=== PATIENT | female | born 1945 | race Two or more races ===

== ENCOUNTER 2023-01-04 05:45 | Inpatient (IN) | payer MEDICARE, OTHER, SELFPAY ==
[2023-01-04] VITALS (86 sets, daily range): BP systolic 50–156; BP diastolic 35–112; PULSE 80–124; RESP 14–25; TEMP 36.8–36.9; O2SAT 94–99; BMI 23.3
--- NOTE | 2023-01-04 06:05 | ECG_ITS ---
The 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
--- NOTE | 2023-01-04 06:05 | XR_ITS ---
The [address] [address] Patient Name: SABI SANTAMARIA MRN: [id number] date: 1945 Sex: F Assigned Patient Location: ER Current Patient Location: ED.MAIN Accession/Order Number: [id number] Exam Date: 01/04/2023 06:30 Report Date: 01/04/2023 07:09 At the request of: VIRGIL MARKER Procedure: XR chest 1V EXAM: XR chest 1V HISTORY: cough COMPARISON: 03/19/2022. TECHNIQUE: Chest X-ray, 1 view. FINDINGS: Support devices: None. Lungs/pleura: Low lung volumes with minimal patchy bibasilar opacities. Chronic appearing lung markings are similar to prior examination. No effusion. No evidence pneumothorax. No edema. Heart and mediastinum: Stable contours compared to prior examination. Bones: No fracture identified. XR/XR chest 1V IMPRESSION: Minimal basilar opacities are favored represent atelectasis given diminished lung expansion. Minimal infiltrate should be excluded on clinical grounds. Electronically authenticated by: ALEAH DOS SANTOS Date: 01/04/2023 07:09
--- NOTE | 2023-01-04 06:07 | XR_ITS ---
The [address] [address] Patient Name: SABI SANTAMARIA MRN: [id number] date: 1945 Sex: F Assigned Patient Location: ER Current Patient Location: ED.MAIN Accession/Order Number: [id number] Exam Date: 01/04/2023 06:30 Report Date: 01/04/2023 07:14 At the request of: VIRGIL MARKER Procedure: XR pelvis 1-2V EXAM: XR pelvis 1-2V HISTORY: fall COMPARISON: 12/20/[address] of 12/20/2021. TECHNIQUE: 1 view of the pelvis. FINDINGS: Pelvis: No radiographic evidence of fracture. Total right hip arthroplasty appears well seated without evidence of hardware failure. Alignment: Normal alignment of the hips without evidence of dislocation. Mild left hip osteoarthritis. Degenerative findings: No radiographic evidence of degenerative findings. Additional findings: Surgical clips project over the pelvis. Degenerative findings of the lower lumbar spine are noted. XR/XR pelvis 1-2V IMPRESSION: No radiographic evidence of fracture. Electronically authenticated by: ALEAH DOS SANTOS Date: 01/04/2023 07:14
--- NOTE | 2023-01-04 06:07 | CT_ITS ---
The [address] [address] Patient Name: SABI SANTAMARIA MRN: [id number] date: 1945 Sex: F Assigned Patient Location: ER Current Patient Location: ER Accession/Order Number: [id number] Exam Date: 01/04/2023 06:30 Report Date: 01/04/2023 07:22 At the request of: VIRGIL MARKER Procedure: CT head/brain wo con EXAMINATION: CT head/brain wo con, 01/04/2023 6:30 AM EDT HISTORY: AMS COMPARISON: 03/19/2022 TECHNIQUE: CT scan of the head was performed without IV contrast. CT dose reduction technique was used, including Automated Exposure Control. 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 White matter hypoattenuation likely chronic small vessel ischemic change. No acute hemorrhage or mass CSF SPACES: No hydrocephalus, subarachnoid hemorrhage, or mass. Appropriate for age. SKULL: No fracture, mass, or other significant visible lesion. SINUSES: Partial heterogeneous opacification right maxillary sinus. 4 mm deviation of the nasal septum to the right ORBITS: No appreciable abnormality on the limited views. OTHER: Negative CT/CT head/brain wo con IMPRESSION: No acute intracranial abnormality Electronically authenticated by: SHANKAR ZHU Date: 01/04/2023 07:22
--- NOTE | 2023-01-04 06:10 | ED_ITS ---
Documented by User: Amber Villanueva MD 01/18/23 00:44 HPI - General Adult General Chief complaint: Weakness Stated complaint: DIZZINESS Time Seen by Provider: 01/04/23 06:04 Source: patient (patient vie interpretor) Mode of arrival: ambulance Limitations: language barrier Limitations comment: Pt is hard of hearing and had a difficult time understanding the interpretor History of Present Illness HPI narrative: 77-year-old female who admits to ongoing tobacco use and has had a stroke in the past with a hip fracture and apparently lives alone is brought to emergency department by EMS. EMS was alerted when her medical alarm went off. According to the paramedics the patient was dizzy and fell. It is unclear upon arrival the patient is confused or hard of hearing and cannot understand the questions that the building performance specialist is asking her. She does answer some questions appropriately. She has a harsh cough. She is noted to be tachycardic. She denies any complaint of pain at this time. She does state that she got up in the middle the night and didn't feel good she took some pain medications that she got at the store, not that were prescribed to her, she then apparently became dizzy and passed out or fell. All of this is unclear at this time. She has an abrasion at the area of her left scapula and over her forehead. Her speech is clear. She is moving all extremities. She denies any dizziness. She denies any chest pain nausea or vomiting. She explained the to the building performance specialist that she smokes. Related Data Home Medications Medication Instructions Recorded Confirmed [place]-3 PO DAILY 01/04/23 aspirin 81 mg chewable tablet 1 tab PO DAILY 01/04/23 01/04/23 (Aspirin Childrens) atorvastatin 80 mg tablet 80 mg PO DAILY 01/04/23 01/04/23 calcium lactate 100 mg calcium 100 mg PO DAILY 01/04/23 01/04/23 tablet cetirizine 10 mg tablet (24Hour 10 mg PO DAILY PRN allergy symptoms 01/04/23 01/04/23 Allergy) cholecalciferol (vitamin D3) 25 25 mcg PO DAILY 01/04/23 01/04/23 mcg (1,000 unit) capsule (Vitamin D3) gabapentin 100 mg capsule 200 mg PO Q12H 01/04/23 01/04/23 meclizine 25 mg tablet 25 mg PO DAILY PRN dizziness 01/04/23 01/04/23 melatonin 5 mg tablet 5 mg PO .HS PRN sleep 01/04/23 01/04/23 Previous Rx's Medication Instructions Recorded acetaminophen 500 mg tablet 1,000 mg PO Q6H PRN Pain Scale 4-6 01/07/23 (Tylenol Extra Strength) #120 tabs albuterol sulfate 90 mcg/actuation 2 puff inhalation Q4H PRN Dyspnea 01/07/23 aerosol inhaler #8.5 grams benzonatate 100 mg capsule 200 mg PO Q8H PRN Cough #90 caps 01/07/23 ciprofloxacin HCl 500 mg tablet 500 mg PO BID #7 tabs 01/07/23 dexamethasone 4 mg tablet 4 mg PO QD #2 tabs 01/07/23 ferrous sulfate 325 mg (65 mg 325 mg PO QDAY #30 tabs 01/07/23 iron) tablet fluticasone propionate 50 1 spray intranasal QDAY #16 grams 01/07/23 mcg/actuation nasal spray,suspension Allergies Allergy/AdvReac Type Severity Reaction Status Date / Time No Known Drug Allergies Allergy Verified 01/04/23 06:20 Review of Systems ROS Status of ROS 10 or more systems reviewed and unremarkable except as noted in history and below [facility] Medical History Surgical History (Updated 01/04/23 @ 13:49 by Jillian Ford) Exam Narrative Exam Narrative: Nurses note and vital signs reviewed and patient is mildy hypoxic. She is tachycardic and blood pressure is moderately low General: Alert, nontoxic female resting comfortable in a stretcher, harsh moist cough noted at times, no respiratory distress Skin: Warm, dry, no pallor noted. Superficial abrasion noted over the right eyebrow and left scapula Head: Normocephalic, atraumatic Eye: Normal conjunctiva, no drainage, EOMI. PERRL Ears, Nose, Mouth, and Throat: oral mucosa is moist. Cardiovascular: Regular Rate and Rhythm S1 and S2, no murmurs rubs or gallops appreciated, pulses are brisk and equal bilaterally Respiratory: Harsh cough and scattered rhonchi noted, no wheezing, no accessory muscle use noted Back: Midline bony vertebral tenderness or step-off noted, abrasion noted to the left scapular area GI: Normal bowel sounds, no tenderness to palpation, no masses appreciated. No rebound, guarding, or rigidity noted. Musculoskeletal: No hip tenderness is noted however the right leg is externally rotated, it is not shortened, she is able to bend at the knee. She has mild blistering of the medial aspect of the left foot, there is no calf swelling or tenderness Neurological: A&O x4, normal speech Psychiatric: Cooperative Constitutional Vital Signs, click to edit/add: Last Vital Signs Temp 97.9 F 01/07/23 05:10 Pulse 95 H 01/07/23 11:46 Resp 16 01/07/23 08:00 BP 146/88 H 01/07/23 05:10 Pulse Ox 97 01/07/23 11:36 O2 Del Method Room Air 01/07/23 11:36 Course Course Hospital Course: Patient admitted with hypotension Severe sepsis with septic shock - hypotensive - requiring levophed and aggresive fluid resuscitation on admission - with sinus tachycardia, respiratory distress, Leukocytosis, acute kidney injury, positive lactate,? high-sensitivity troponin elevation which is possibly demand ischemia- elevated BNP- Complicated by acute COVID 19. Patient initially admitted to the ICU on Levophed. Over the first 12 hours it was able to be weaned off but then needed to be replaced., But then weaned off shortly after that. Patient did develop a little bit of fluid overload. That just improved by discontinuing fluids. Her blood culture did come back positive for E. coli. Sensitivities were sensitive to everything. With the COVID-19 and positive gram-negative sepsis secondary to E. coli but patient improved rapidly. She will be discharged to rehab facility to improve strength and conditioning. We will not need further IV antibiotics due to sensitivities to the E. coli. Patient stable for discharge to rehab. Medications see list. I will see patient after discharge from rehab Vital Signs Vital signs: Vital Signs Temperature 98.2 F 01/04/23 05:48 Pulse Rate 124 H 01/04/23 05:48 Respiratory Rate 25 H 01/04/23 05:48 Blood Pressure 112/87 H 01/04/23 05:48 Pulse Oximetry 94 L 01/04/23 05:48 Oxygen Delivery Method Room Air 01/04/23 05:48 Temperature 97.9 F 01/07/23 05:10 Pulse Rate 95 H 01/07/23 11:46 Respiratory Rate 16 01/07/23 08:00 Blood Pressure 146/88 H 01/07/23 05:10 Pulse Oximetry 97 01/07/23 11:36 Oxygen Delivery Method Room Air 01/07/23 11:36 Medical Decision Making Lab Data Labs: Lab Results 01/04/23 01/04/23 01/04/23 Range/Units 06:20 06:50 07:57 WBC 13.8 H (4.0-11.0) 10^3/uL RBC 4.15 L (4.20-5.40) 10^6/uL Hgb 11.7 L (12.0-16.0) g/dL Hct 36.2 (36.0-48.0) % MCV 87.2 (81.0-99.0) fL MCH 28.2 (26.7-34.0) pg MCHC 32.3 (29.9-35.2) g/dL RDW 15.1 H (11.0-15.0) % Plt Count 225 (150-450) 10^3/uL MPV 8.9 L (9.5-13.5) fL Neut % (Auto) 86.8 H (43.0-75.0) % Lymph % (Auto) 8.1 L (20.5-60.0) % [place] % (Auto) 4.1 (1.7-12.0) % Eos % (Auto) 0.1 L (0.9-7.0) % Baso % (Auto) 0.2 (0.2-2.0) % Neut # (Auto) 12.0 H (1.4-6.5) 10^3/uL Lymph # (Auto) 1.1 L (1.2-3.8) 10^3/uL [place] # (Auto) 0.6 (0.3-0.8) 10^3/uL Eos # (Auto) 0.0 (0.0-0.7) 10^3/uL Baso # (Auto) 0.0 (0.0-0.1) 10^3/uL Abs Immat Gran (auto) 0.09 H (0.00-0.03) 10^3/uL Imm/Tot Granulo (auto) 0.7 H (0.0-0.5) % Sodium 138 (136-145) mmol/L Potassium 3.5 (3.5-5.1) mmol/L Chloride 104 (98-107) mmol/L Carbon Dioxide 22.3 (21.0-32.0) mmol/L Anion Gap 15.2 BUN 26.0 H (7.0-18.0) mg/dL Creatinine 1.53 H (0.55-1.02) mg/dL Est GFR ( Amer) 40 L (>=60) Est GFR (Non-Af Amer) 33 L (>=60) BUN/Creatinine Ratio 17.0 Glucose 127 H (74-106) mg/dL Lactate 2.3 H* (0.4-2.0) mmol/L Calcium 8.7 (8.5-10.1) mg/dL Magnesium 2.0 (1.8-2.4) mg/dL Total Bilirubin 1.1 H (0.2-1.0) mg/dL AST 30 (15-37) U/L ALT 16 (14-59) U/L Alkaline Phosphatase 109 (46-116) U/L Total Creatine Kinase 299 H (26-192) U/L Troponin I High Sens 1547.8 H* 1175.7 H* (4.0-51.3) pg/mL NT-Pro-B Natriuret Pep 1660.0 (<=1800.0) pg/mL Total Protein 7.6 (6.4-8.2) g/dL Albumin 2.9 L (3.4-5.0) g/dL Globulin 4.7 g/dL Albumin/Globulin Ratio 0.6 Urine Color (YELLOW) Urine Clarity (CLEAR) Urine pH (5.0-9.0) Ur Specific [place] (1.005-1.025) Urine Protein (NEG/TRACE) mg/dL Urine Glucose (UA) (NEGATIVE) mg/dL Urine Ketones (NEGATIVE) mg/dL Urine Occult Blood (NEGATIVE) Urine Nitrite (NEGATIVE) Urine Bilirubin (NEGATIVE) Urine Urobilinogen (0.2-1.0) EU/dL Ur Leukocyte Esterase (NEGATIVE) Urine RBC (0-2) #/HPF Urine WBC (NONE SEEN) #/HPF Ur Squamous Epith Cells (NONE/RARE) #/LPF Urine Crystals (None Seen) #/HPF Urine Bacteria (NONE SEEN) #/HPF Urine Casts (NONE SEEN) #/LPF Urine Mucus (NONE SEEN) Ur Culture Indicated? Marcell H. influenza (PCR) Not detected (NOT DETECTE) A.calcoaceticus-baumannii cmplx PCR Not detected (NOT DETECTE) Bacteroides fragilis Not detected (NOT DETECTE) Evangelina albicans (PCR) Not detected (NOT DETECTE) Evangelina auris (PCR) Not detected (NOT DETECTE) C. glabrata (PCR) Not detected (NOT DETECTE) C. krusei (PCR) Not detected (NOT DETECTE) C. parapsilosis (PCR) Not detected (NOT DETECTE) C. tropicalis (PCR) Not detected (NOT DETECTE) C. neoform/gattii (PCR) Not detected (NOT DETECTE) Enterobacterales (PCR) Detected A* (NOT DETECTE) E. cloacae complex PCR Not detected (NOT DETECTE) Enterococc faecalis PCR Not detected (NOT DETECTE) Enterococc faecium PCR Not detected (NOT DETECTE) E. coli (PCR) Detected A* (NOT DETECTE) Klebsiella aerogenes (PCR) Not detected (NOT DETECTE) Klebsiella oxytoca PCR Not detected (NOT DETECTE) K. pneumoniae group (PCR) Not detected (NOT DETECTE) List. monocytogenes PCR Not detected (NOT DETECTE) N. meningitidis (PCR) Not detected (NOT DETECTE) Proteus spp. (copies/mL) Not detected (NOT DETECTE) Salmonella spp. (PCR) Not detected (NOT DETECTE) Serratia marcescens PCR Not detected (NOT DETECTE) Staphylococcus sp PCR Not detected (NOT DETECTE) Staph aureus (PCR) Not detected (NOT DETECTE) mecA/C & MREJ Resist Gene Not applicable (NOT DETECTE) mecA/C-Methicil Resis Gene Not applicable (NOT DETECTE) mcr-1 Colistin Res Gene PCR Not applicable (NOT DETECTE) Staph epidermidis (PCR) Not detected (NOT DETECTE) Staph lugdunensis (TEM-PCR) Not detected (NOT DETECTE) S. maltophilia (PCR) Not detected (NOT DETECTE) Streptococcus sp PCR Not detected (NOT DETECTE) Strep agalactiae (PCR) Not detected (NOT DETECTE) Strep pneumoniae (PCR) Not detected (NOT DETECTE) S. pyogenes (PCR) Not detected (NOT DETECTE) P. aeruginosa (PCR) Not detected (NOT DETECTE) Tobias/B-Vanco Res Genes Not applicable (NOT DETECTE) blaIMP Car res Gene PCR Not applicable (NOT DETECTE) KPC (blaKPC) Detect PCR Not applicable (NOT DETECTE) NDM (blaNDM) Detect PCR Not applicable (NOT DETECTE) OXA-48 Carbapenem Resis Gene (PCR) Not applicable (NOT DETECTE) blaVIM Car Res Gene PCR Not applicable (NOT DETECTE) CTX-M ESBL (PCR) Not applicable (NOT DETECTE) 01/04/23 01/04/23 Range/Units 09:45 16:10 WBC (4.0-11.0) 10^3/uL RBC (4.20-5.40) 10^6/uL Hgb (12.0-16.0) g/dL Hct (36.0-48.0) % MCV (81.0-99.0) fL MCH (26.7-34.0) pg MCHC (29.9-35.2) g/dL RDW (11.0-15.0) % Plt Count (150-450) 10^3/uL MPV (9.5-13.5) fL Neut % (Auto) (43.0-75.0) % Lymph % (Auto) (20.5-60.0) % [place] % (Auto) (1.7-12.0) % Eos % (Auto) (0.9-7.0) % Baso % (Auto) (0.2-2.0) % Neut # (Auto) (1.4-6.5) 10^3/uL Lymph # (Auto) (1.2-3.8) 10^3/uL [place] # (Auto) (0.3-0.8) 10^3/uL Eos # (Auto) (0.0-0.7) 10^3/uL Baso # (Auto) (0.0-0.1) 10^3/uL Abs Immat Gran (auto) (0.00-0.03) 10^3/uL Imm/Tot Granulo (auto) (0.0-0.5) % Sodium (136-145) mmol/L Potassium (3.5-5.1) mmol/L Chloride (98-107) mmol/L Carbon Dioxide (21.0-32.0) mmol/L Anion Gap BUN (7.0-18.0) mg/dL Creatinine (0.55-1.02) mg/dL Est GFR ( Amer) (>=60) Est GFR (Non-Af Amer) (>=60) BUN/Creatinine Ratio Glucose (74-106) mg/dL Lactate 2.6 H* (0.4-2.0) mmol/L Calcium (8.5-10.1) mg/dL Magnesium (1.8-2.4) mg/dL Total Bilirubin (0.2-1.0) mg/dL AST (15-37) U/L ALT (14-59) U/L Alkaline Phosphatase (46-116) U/L Total Creatine Kinase (26-192) U/L Troponin I High Sens (4.0-51.3) pg/mL NT-Pro-B Natriuret Pep (<=1800.0) pg/mL Total Protein (6.4-8.2) g/dL Albumin (3.4-5.0) g/dL Globulin g/dL Albumin/Globulin Ratio Urine Color Yellow (YELLOW) Urine Clarity Clear (CLEAR) Urine pH 7.0 (5.0-9.0) Ur Specific [place] 1.020 (1.005-1.025) Urine Protein >=300 A (NEG/TRACE) mg/dL Urine Glucose (UA) Negative (NEGATIVE) mg/dL Urine Ketones Negative (NEGATIVE) mg/dL Urine Occult Blood Large A (NEGATIVE) Urine Nitrite Positive A (NEGATIVE) Urine Bilirubin Negative (NEGATIVE) Urine Urobilinogen 0.2 (0.2-1.0) EU/dL Ur Leukocyte Esterase Moderate A (NEGATIVE) Urine RBC 20-50 A (0-2) #/HPF Urine WBC 10-20 A (NONE SEEN) #/HPF Ur Squamous Epith Cells Rare (NONE/RARE) #/LPF Urine Crystals None seen (None Seen) #/HPF Urine Bacteria Moderate A (NONE SEEN) #/HPF Urine Casts None seen (NONE SEEN) #/LPF Urine Mucus None seen (NONE SEEN) Ur Culture Indicated? Yes Marcell H. influenza (PCR) (NOT DETECTE) A.calcoaceticus-baumannii cmplx PCR (NOT DETECTE) Bacteroides fragilis (NOT DETECTE) Evangelina albicans (PCR) (NOT DETECTE) Evangelina auris (PCR) (NOT DETECTE) C. glabrata (PCR) (NOT DETECTE) C. krusei (PCR) (NOT DETECTE) C. parapsilosis (PCR) (NOT DETECTE) C. tropicalis (PCR) (NOT DETECTE) C. neoform/gattii (PCR) (NOT DETECTE) Enterobacterales (PCR) (NOT DETECTE) E. cloacae complex PCR (NOT DETECTE) Enterococc faecalis PCR (NOT DETECTE) Enterococc faecium PCR (NOT DETECTE) E. coli (PCR) (NOT DETECTE) Klebsiella aerogenes (PCR) (NOT DETECTE) Klebsiella oxytoca PCR (NOT DETECTE) K. pneumoniae group (PCR) (NOT DETECTE) List. monocytogenes PCR (NOT DETECTE) N. meningitidis (PCR) (NOT DETECTE) Proteus spp. (copies/mL) (NOT DETECTE) Salmonella spp. (PCR) (NOT DETECTE) Serratia marcescens PCR (NOT DETECTE) Staphylococcus sp PCR (NOT DETECTE) Staph aureus (PCR) (NOT DETECTE) mecA/C & MREJ Resist Gene (NOT DETECTE) mecA/C-Methicil Resis Gene (NOT DETECTE) mcr-1 Colistin Res Gene PCR (NOT DETECTE) Staph epidermidis (PCR) (NOT DETECTE) Staph lugdunensis (TEM-PCR) (NOT DETECTE) S. maltophilia (PCR) (NOT DETECTE) Streptococcus sp PCR (NOT DETECTE) Strep agalactiae (PCR) (NOT DETECTE) Strep pneumoniae (PCR) (NOT DETECTE) S. pyogenes (PCR) (NOT DETECTE) P. aeruginosa (PCR) (NOT DETECTE) Tobias/B-Vanco Res Genes (NOT DETECTE) blaIMP Car res Gene PCR (NOT DETECTE) KPC (blaKPC) Detect PCR (NOT DETECTE) NDM (blaNDM) Detect PCR (NOT DETECTE) OXA-48 Carbapenem Resis Gene (PCR) (NOT DETECTE) blaVIM Car Res Gene PCR (NOT DETECTE) CTX-M ESBL (PCR) (NOT DETECTE) ECG Data Attestation: I personally reviewed and interpreted this ECG as follows: (Sinus tachycardia at 1 22 bpm, normal axis, nonspecific ST changes, no acute ST segment elevation or T-wave inversion) Discharge Plan Discharge Chief Complaint: Weakness Clinical Impression: Non-ST elevation PR (NSTEMI) Patient Disposition: Admitted as Observation Condition: Good Discharge Date/Time: 01/04/23 17:45 Documented by User: Nadeem Boogie MD 01/04/23 16:39 HPI - General Adult General Chief complaint: Weakness Stated complaint: DIZZINESS Time Seen by Provider: 01/04/23 06:04 Related Data Home Medications Medication Instructions Recorded Confirmed [place]-3 PO DAILY 01/04/23 aspirin 81 mg chewable tablet 1 tab PO DAILY 01/04/23 01/04/23 (Aspirin Childrens) atorvastatin 80 mg tablet 80 mg PO DAILY 01/04/23 01/04/23 calcium lactate 100 mg calcium 100 mg PO DAILY 01/04/23 01/04/23 tablet cetirizine 10 mg tablet (24Hour 10 mg PO DAILY PRN allergy symptoms 01/04/23 01/04/23 Allergy) cholecalciferol (vitamin D3) 25 25 mcg PO DAILY 01/04/23 01/04/23 mcg (1,000 unit) capsule (Vitamin D3) gabapentin 100 mg capsule 200 mg PO Q12H 01/04/23 01/04/23 meclizine 25 mg tablet 25 mg PO DAILY PRN dizziness 01/04/23 01/04/23 melatonin 5 mg tablet 5 mg PO .HS PRN sleep 01/04/23 01/04/23 Previous Rx's Medication Instructions Recorded acetaminophen 500 mg tablet 1,000 mg PO Q6H PRN Pain Scale 4-6 01/07/23 (Tylenol Extra Strength) #120 tabs albuterol sulfate 90 mcg/actuation 2 puff inhalation Q4H PRN Dyspnea 01/07/23 aerosol inhaler #8.5 grams benzonatate 100 mg capsule 200 mg PO Q8H PRN Cough #90 caps 01/07/23 ciprofloxacin HCl 500 mg tablet 500 mg PO BID #7 tabs 01/07/23 dexamethasone 4 mg tablet 4 mg PO QD #2 tabs 01/07/23 ferrous sulfate 325 mg (65 mg 325 mg PO QDAY #30 tabs 01/07/23 iron) tablet fluticasone propionate 50 1 spray intranasal QDAY #16 grams 01/07/23 mcg/actuation nasal spray,suspension Allergies Allergy/AdvReac Type Severity Reaction Status Date / Time No Known Drug Allergies Allergy Verified 01/04/23 06:20 [facility] Medical History Surgical History (Updated 01/04/23 @ 13:49 by Jillian Ford) Exam Constitutional Vital Signs, click to edit/add: Last Vital Signs Temp 97.9 F 01/07/23 05:10 Pulse 95 H 01/07/23 11:46 Resp 16 01/07/23 08:00 BP 146/88 H 01/07/23 05:10 Pulse Ox 97 01/07/23 11:36 O2 Del Method Room Air 01/07/23 11:36 Course Course Hospital Course: Patient admitted with hypotension Severe sepsis with septic shock - hypotensive - requiring levophed and aggresive fluid resuscitation on admission - with sinus tachycardia, respiratory distress, Leukocytosis, acute kidney injury, positive lactate,? high-sensitivity troponin elevation which is possibly demand ischemia- elevated BNP- Complicated by acute COVID 19. Patient initially admitted to the ICU on Levophed. Over the first 12 hours it was able to be weaned off but then needed to be replaced., But then weaned off shortly after that. Patient did develop a little bit of fluid overload. That just improved by discontinuing fluids. Her blood culture did come back positive for E. coli. Sensitivities were sensitive to everything. With the COVID-19 and positive gram -negative sepsis secondary to E. coli but patient improved rapidly. She will be discharged to rehab facility to improve strength and conditioning. We will not need further IV antibiotics due to sensitivities to the E. coli. Patient stable for discharge to rehab. Medications see list. I will see patient after discharge from rehab Vital Signs Vital signs: Vital Signs Temperature 98.2 F 01/04/23 05:48 Pulse Rate 124 H 01/04/23 05:48 Respiratory Rate 25 H 01/04/23 05:48 Blood Pressure 112/87 H 01/04/23 05:48 Pulse Oximetry 94 L 01/04/23 05:48 Oxygen Delivery Method Room Air 01/04/23 05:48 Temperature 97.9 F 01/07/23 05:10 Pulse Rate 95 H 01/07/23 11:46 Respiratory Rate 16 01/07/23 08:00 Blood Pressure 146/88 H 01/07/23 05:10 Pulse Oximetry 97 01/07/23 11:36 Oxygen Delivery Method Room Air 01/07/23 11:36 Medical Decision Making MDM Narrative Medical decision making narrative: this patient was under the care of Dr. Vázquez did the previous shift and has been managed by myself since 0700 hrs. She came in with hypotension. Initial laboratory tests show substantially elevated troponin so the consideration was given to a cardiac etiology. A repeat troponindid improve substantially but was still elevated. I spoke to her primary care physician who advised we discussed his case with cardiology. [facility] cardiology was called however it was extremely long delay before any physician called us back. After describing the case the clinician there did not feel that is cardiac etiology but accepted the case for transfer. I then gave report to the medical iron carrier at that institution and was also able to secure an echocardiogram here. The echocardiogram primary report by environmental field services technician showed normal ejection fraction and no evidence of tap not effusion or valvular heart disease. With this information it seems like the most likely diagnosis for prolonged hypotension with sepsis. Eventually a urinalysis report indicated that there was indeed urinary tract infection. Initial lactate levels were also elevated. She was started on antibiotics with this updated information. At this time, 1640 hrs. we still have not received a bed for transfer. I recalled her local primary care doctor and updated information with the ongoing management and her improvement with pressors and IV fluids and antibiotics. He's agreed to admit her to this hospital at this time patient is awake alert and talking to the daughter and vital signs are stable with the blood pressure being supported by pressure. We will give an additional 500 mL of fluid at this time so as to not over fluid load her Lab Data Labs: Lab Results 01/04/23 01/04/23 01/04/23 Range/Units 06:20 06:50 07:57 WBC 13.8 H (4.0-11.0) 10^3/uL RBC 4.15 L (4.20-5.40) 10^6/uL Hgb 11.7 L (12.0-16.0) g/dL Hct 36.2 (36.0-48.0) % MCV 87.2 (81.0-99.0) fL MCH 28.2 (26.7-34.0) pg MCHC 32.3 (29.9-35.2) g/dL RDW 15.1 H (11.0-15.0) % Plt Count 225 (150-450) 10^3/uL MPV 8.9 L (9.5-13.5) fL Neut % (Auto) 86.8 H (43.0-75.0) % Lymph % (Auto) 8.1 L (20.5-60.0) % [place] % (Auto) 4.1 (1.7-12.0) % Eos % (Auto) 0.1 L (0.9-7.0) % Baso % (Auto) 0.2 (0.2-2.0) % Neut # (Auto) 12.0 H (1.4-6.5) 10^3/uL Lymph # (Auto) 1.1 L (1.2-3.8) 10^3/uL [place] # (Auto) 0.6 (0.3-0.8) 10^3/uL Eos # (Auto) 0.0 (0.0-0.7) 10^3/uL Baso # (Auto) 0.0 (0.0-0.1) 10^3/uL Abs Immat Gran (auto) 0.09 H (0.00-0.03) 10^3/uL Imm/Tot Granulo (auto) 0.7 H (0.0-0.5) % Sodium 138 (136-145) mmol/L Potassium 3.5 (3.5-5.1) mmol/L Chloride 104 (98-107) mmol/L Carbon Dioxide 22.3 (21.0-32.0) mmol/L Anion Gap 15.2 BUN 26.0 H (7.0-18.0) mg/dL Creatinine 1.53 H (0.55-1.02) mg/dL Est GFR ( Amer) 40 L (>=60) Est GFR (Non-Af Amer) 33 L (>=60) BUN/Creatinine Ratio 17.0 Glucose 127 H (74-106) mg/dL Lactate 2.3 H* (0.4-2.0) mmol/L Calcium 8.7 (8.5-10.1) mg/dL Magnesium 2.0 (1.8-2.4) mg/dL Total Bilirubin 1.1 H (0.2-1.0) mg/dL AST 30 (15-37) U/L ALT 16 (14-59) U/L Alkaline Phosphatase 109 (46-116) U/L Total Creatine Kinase 299 H (26-192) U/L Troponin I High Sens 1547.8 H* 1175.7 H* (4.0-51.3) pg/mL NT-Pro-B Natriuret Pep 1660.0 (<=1800.0) pg/mL Total Protein 7.6 (6.4-8.2) g/dL Albumin 2.9 L (3.4-5.0) g/dL Globulin 4.7 g/dL Albumin/Globulin Ratio 0.6 Urine Color (YELLOW) Urine Clarity (CLEAR) Urine pH (5.0-9.0) Ur Specific [place] (1.005-1.025) Urine Protein (NEG/TRACE) mg/dL Urine Glucose (UA) (NEGATIVE) mg/dL Urine Ketones (NEGATIVE) mg/dL Urine Occult Blood (NEGATIVE) Urine Nitrite (NEGATIVE) Urine Bilirubin (NEGATIVE) Urine Urobilinogen (0.2-1.0) EU/dL Ur Leukocyte Esterase (NEGATIVE) Urine RBC (0-2) #/HPF Urine WBC (NONE SEEN) #/HPF Ur Squamous Epith Cells (NONE/RARE) #/LPF Urine Crystals (None Seen) #/HPF Urine Bacteria (NONE SEEN) #/HPF Urine Casts (NONE SEEN) #/LPF Urine Mucus (NONE SEEN) Ur Culture Indicated? Marcell H. influenza (PCR) Not detected (NOT DETECTE) A.calcoaceticus-baumannii cmplx PCR Not detected (NOT DETECTE) Bacteroides fragilis Not detected (NOT DETECTE) Evangelina albicans (PCR) Not detected (NOT DETECTE) Evangelina auris (PCR) Not detected (NOT DETECTE) C. glabrata (PCR) Not detected (NOT DETECTE) C. krusei (PCR) Not detected (NOT DETECTE) C. parapsilosis (PCR) Not detected (NOT DETECTE) C. tropicalis (PCR) Not detected (NOT DETECTE) C. neoform/gattii (PCR) Not detected (NOT DETECTE) Enterobacterales (PCR) Detected A* (NOT DETECTE) E. cloacae complex PCR Not detected (NOT DETECTE) Enterococc faecalis PCR Not detected (NOT DETECTE) Enterococc faecium PCR Not detected (NOT DETECTE) E. coli (PCR) Detected A* (NOT DETECTE) Klebsiella aerogenes (PCR) Not detected (NOT DETECTE) Klebsiella oxytoca PCR Not detected (NOT DETECTE) K. pneumoniae group (PCR) Not detected (NOT DETECTE) List. monocytogenes PCR Not detected (NOT DETECTE) N. meningitidis (PCR) Not detected (NOT DETECTE) Proteus spp. (copies/mL) Not detected (NOT DETECTE) Salmonella spp. (PCR) Not detected (NOT DETECTE) Serratia marcescens PCR Not detected (NOT DETECTE) Staphylococcus sp PCR Not detected (NOT DETECTE) Staph aureus (PCR) Not detected (NOT DETECTE) mecA/C & MREJ Resist Gene Not applicable (NOT DETECTE) mecA/C-Methicil Resis Gene Not applicable (NOT DETECTE) mcr-1 Colistin Res Gene PCR Not applicable (NOT DETECTE) Staph epidermidis (PCR) Not detected (NOT DETECTE) Staph lugdunensis (TEM-PCR) Not detected (NOT DETECTE) S. maltophilia (PCR) Not detected (NOT DETECTE) Streptococcus sp PCR Not detected (NOT DETECTE) Strep agalactiae (PCR) Not detected (NOT DETECTE) Strep pneumoniae (PCR) Not detected (NOT DETECTE) S. pyogenes (PCR) Not detected (NOT DETECTE) P. aeruginosa (PCR) Not detected (NOT DETECTE) Tobias/B-Vanco Res Genes Not applicable (NOT DETECTE) blaIMP Car res Gene PCR Not applicable (NOT DETECTE) KPC (blaKPC) Detect PCR Not applicable (NOT DETECTE) NDM (blaNDM) Detect PCR Not applicable (NOT DETECTE) OXA-48 Carbapenem Resis Gene (PCR) Not applicable (NOT DETECTE) blaVIM Car Res Gene PCR Not applicable (NOT DETECTE) CTX-M ESBL (PCR) Not applicable (NOT DETECTE) 01/04/23 01/04/23 Range/Units 09:45 16:10 WBC (4.0-11.0) 10^3/uL RBC (4.20-5.40) 10^6/uL Hgb (12.0-16.0) g/dL Hct (36.0-48.0) % MCV (81.0-99.0) fL MCH (26.7-34.0) pg MCHC (29.9-35.2) g/dL RDW (11.0-15.0) % Plt Count (150-450) 10^3/uL MPV (9.5-13.5) fL Neut % (Auto) (43.0-75.0) % Lymph % (Auto) (20.5-60.0) % [place] % (Auto) (1.7-12.0) % Eos % (Auto) (0.9-7.0) % Baso % (Auto) (0.2-2.0) % Neut # (Auto) (1.4-6.5) 10^3/uL Lymph # (Auto) (1.2-3.8) 10^3/uL [place] # (Auto) (0.3-0.8) 10^3/uL Eos # (Auto) (0.0-0.7) 10^3/uL Baso # (Auto) (0.0-0.1) 10^3/uL Abs Immat Gran (auto) (0.00-0.03) 10^3/uL Imm/Tot Granulo (auto) (0.0-0.5) % Sodium (136-145) mmol/L Potassium (3.5-5.1) mmol/L Chloride (98-107) mmol/L Carbon Dioxide (21.0-32.0) mmol/L Anion Gap BUN (7.0-18.0) mg/dL Creatinine (0.55-1.02) mg/dL Est GFR ( Amer) (>=60) Est GFR (Non-Af Amer) (>=60) BUN/Creatinine Ratio Glucose (74-106) mg/dL Lactate 2.6 H* (0.4-2.0) mmol/L Calcium (8.5-10.1) mg/dL Magnesium (1.8-2.4) mg/dL Total Bilirubin (0.2-1.0) mg/dL AST (15-37) U/L ALT (14-59) U/L Alkaline Phosphatase (46-116) U/L Total Creatine Kinase (26-192) U/L Troponin I High Sens (4.0-51.3) pg/mL NT-Pro-B Natriuret Pep (<=1800.0) pg/mL Total Protein (6.4-8.2) g/dL Albumin (3.4-5.0) g/dL Globulin g/dL Albumin/Globulin Ratio Urine Color Yellow (YELLOW) Urine Clarity Clear (CLEAR) Urine pH 7.0 (5.0-9.0) Ur Specific [place] 1.020 (1.005-1.025) Urine Protein >=300 A (NEG/TRACE) mg/dL Urine Glucose (UA) Negative (NEGATIVE) mg/dL Urine Ketones Negative (NEGATIVE) mg/dL Urine Occult Blood Large A (NEGATIVE) Urine Nitrite Positive A (NEGATIVE) Urine Bilirubin Negative (NEGATIVE) Urine Urobilinogen 0.2 (0.2-1.0) EU/dL Ur Leukocyte Esterase Moderate A (NEGATIVE) Urine RBC 20-50 A (0-2) #/HPF Urine WBC 10-20 A (NONE SEEN) #/HPF Ur Squamous Epith Cells Rare (NONE/RARE) #/LPF Urine Crystals None seen (None Seen) #/HPF Urine Bacteria Moderate A (NONE SEEN) #/HPF Urine Casts None seen (NONE SEEN) #/LPF Urine Mucus None seen (NONE SEEN) Ur Culture Indicated? Yes Marcell H. influenza (PCR) (NOT DETECTE) A.calcoaceticus-baumannii cmplx PCR (NOT DETECTE) Bacteroides fragilis (NOT DETECTE) Evangelina albicans (PCR) (NOT DETECTE) Evangelina auris (PCR) (NOT DETECTE) C. glabrata (PCR) (NOT DETECTE) C. krusei (PCR) (NOT DETECTE) C. parapsilosis (PCR) (NOT DETECTE) C. tropicalis (PCR) (NOT DETECTE) C. neoform/gattii (PCR) (NOT DETECTE) Enterobacterales (PCR) (NOT DETECTE) E. cloacae complex PCR (NOT DETECTE) Enterococc faecalis PCR (NOT DETECTE) Enterococc faecium PCR (NOT DETECTE) E. coli (PCR) (NOT DETECTE) Klebsiella aerogenes (PCR) (NOT DETECTE) Klebsiella oxytoca PCR (NOT DETECTE) K. pneumoniae group (PCR) (NOT DETECTE) List. monocytogenes PCR (NOT DETECTE) N. meningitidis (PCR) (NOT DETECTE) Proteus spp. (copies/mL) (NOT DETECTE) Salmonella spp. (PCR) (NOT DETECTE) Serratia marcescens PCR (NOT DETECTE) Staphylococcus sp PCR (NOT DETECTE) Staph aureus (PCR) (NOT DETECTE) mecA/C & MREJ Resist Gene (NOT DETECTE) mecA/C-Methicil Resis Gene (NOT DETECTE) mcr-1 Colistin Res Gene PCR (NOT DETECTE) Staph epidermidis (PCR) (NOT DETECTE) Staph lugdunensis (TEM-PCR) (NOT DETECTE) S. maltophilia (PCR) (NOT DETECTE) Streptococcus sp PCR (NOT DETECTE) Strep agalactiae (PCR) (NOT DETECTE) Strep pneumoniae (PCR) (NOT DETECTE) S. pyogenes (PCR) (NOT DETECTE) P. aeruginosa (PCR) (NOT DETECTE) Tobias/B-Vanco Res Genes (NOT DETECTE) blaIMP Car res Gene PCR (NOT DETECTE) KPC (blaKPC) Detect PCR (NOT DETECTE) NDM (blaNDM) Detect PCR (NOT DETECTE) OXA-48 Carbapenem Resis Gene (PCR) (NOT DETECTE) blaVIM Car Res Gene PCR (NOT DETECTE) CTX-M ESBL (PCR) (NOT DETECTE) Discharge Plan Discharge Chief Complaint: Weakness Clinical Impression: Non-ST elevation PR (NSTEMI) Patient Disposition: Admitted as Observation Condition: Good Discharge Date/Time: 01/04/23 17:45
[2023-01-04] MEDS: 0.9 % SODIUM CHLORIDE 1,000 ML 999 ML IV (06:47)
[2023-01-04 06:53] LABS: Anion Gap 15.2
[2023-01-04 07:00] LABS: Alanine Aminotransferase 16 U/L (14-59); Albumin Globulin Ratio 0.6; Albumin Level 2.9 g/dL (3.4-5.0); Alkaline Phosphatase 109 U/L (46-116); Aspartate Amino Transferase 30 U/L (15-37); Bilirubin Total 1.1 mg/dL (0.2-1.0); Calcium 8.7 mg/dL (8.5-10.1); Carbon Dioxide 22.3 mmol/L (21.0-32.0); Chloride 104 mmol/L (98-107); Estimated GFR (African America 40 (>=60); Estimated GFR (Non-African Ame 33 (>=60); Globulin 4.7 g/dL; Glucose 127 mg/dL (74-106); Potassium 3.5 mmol/L (3.5-5.1); Sodium 138 mmol/L (136-145); Total Protein 7.6 g/dL (6.4-8.2)
[2023-01-04 07:00] LABS: Basophils Percent Auto 0.2 % (0.2-2.0); Eosinophils Percent Auto 0.1 % (0.9-7.0); Hematocrit 36.2 % (36.0-48.0); Hemoglobin 11.7 g/dL (12.0-16.0); Immature Granulocytes Abs Auto 0.09 10^3/uL (0.00-0.03); Immature Granulocytes Pct Auto 0.7 % (0.0-0.5); Lymphocytes Absolute Auto 1.1 10^3/uL (1.2-3.8); Lymphocytes Percent Auto 8.1 % (20.5-60.0); Mean Corpuscular HGB Conc 32.3 g/dL (29.9-35.2); Mean Corpuscular Hemoglobin 28.2 pg (26.7-34.0); Mean Corpuscular Volume 87.2 fL (81.0-99.0); Mean Platelet Volume 8.9 fL (9.5-13.5); Monocytes Absolute Auto 0.6 10^3/uL (0.3-0.8); Monocytes Percent Auto 4.1 % (1.7-12.0); Neutrophils Percent Auto 86.8 % (43.0-75.0); Platelet Count 225 10^3/uL (150-450); Red Blood Count 4.15 10^6/uL (4.20-5.40); Red Cell Distribution Width 15.1 % (11.0-15.0); White Blood Count 13.8 10^3/uL (4.0-11.0)
[2023-01-04 07:03] LABS: Lactate/Lactic Acid 2.3 mmol/L (0.4-2.0)
[2023-01-04 07:04] LABS: Troponin I High Sensitivity 1547.8 pg/mL (4.0-51.3)
--- NOTE | 2023-01-04 07:18 | XR_ITS ---
[address] [address] Patient Name: SABI SANTAMARIA MRN: [id number] date: 1945 Sex: F Assigned Patient Location: ER Current Patient Location: ED.MAIN Accession/Order Number: [id number] Exam Date: 01/04/2023 07:41 Report Date: 01/04/2023 07:56 At the request of: CATHIE NOE Procedure: XR ankle LT min 3V PROCEDURE: XR ankle LT min 3V COMPARISON: None. HISTORY: pain FINDINGS: BONES:No acute fracture or dislocation. Marked degenerative changes of the midfoot and hindfoot with bony remodeling and partial collapse. Iads-sg-noqx articulation of the tibiotalar joint. No focal lytic or sclerotic changes. SOFT TISSUES:Negative. No visible soft tissue swelling. EFFUSION:None visible. OTHER: Extensive vascular calcifications XR/XR ankle LT min 3V IMPRESSION: Severe degenerative changes No evidence of osteomyelitis Electronically authenticated by: SHANKAR ZHU Date: 01/04/2023 07:56
[2023-01-04] MEDS: ASPIRIN 81 MG TAB.CHEW 324 MG PO (07:22)
[2023-01-04] MEDS: HYDROCODONE/ACETAMINOPHEN 5-325 MG TABLET 1 TAB PO (07:48)
[2023-01-04] MEDS: 0.9 % SODIUM CHLORIDE 500 ML IV (07:49)
[2023-01-04 08:41] LABS: Troponin I High Sensitivity 1175.7 pg/mL (4.0-51.3)
--- NOTE | 2023-01-04 09:48 | CA_ITS ---
Patient: SABI SANTAMARIA Exam Date: 01/04/2023 : 1945 Gender:F Ordering : DR CATHIE NOE D.O. Admission #: [id number] Family : VIRGIL PARIKH . Order #: [id number] CLICK HERE TO VIEW EXAM ECHOCARDIOGRAM REPORT PROCEDURE: CA ECHO LIMITED INDICATIONS: Hypotension, elevated TROP, fall COMPARISON: None. DESCRIPTION: Limited ECHOCARDIOGRAM Real-time transthoracic echocardiography with 2D and M-mode performed. QUALITY: Technical quality was fair. Limited echocardiogram per physician order. LEFT VENTRICLE: Small chamber size. Mild concentric left ventricular hypertrophy. Normal systolic function. LV EF: Normal left ventricular ejection fraction, (>55%). DIASTOLIC: ATRIAL SEPTUM: LEFT ATRIUM: Normal chamber size. RIGHT ATRIUM: Normal chamber size. RIGHT VENTRICLE: Normal chamber size. Normal systolic function. TRICUSPID VALVE: Normal mobility and thickness. MITRAL VALVE: Mildly thickened with normal mobility. Moderate mitral annular calcification. AORTIC VALVE: Normal trileaflet appearance. Thickened aortic valve. Mildly diminished mobility. AORTIC ROOT: Normal diameter and appearance. PULMONIC VALVE: Not well visualized. PERICARDIUM: No evidence of pericardial effusion. IVC: Collapses with inspirations. IVC is normal in size. PLEURA: CONCLUSION: 1. Normal ventricular systolic function. 2. No pericardial effusion. 3. Limited study performed with no Doppler interrogation as requested. Adult Echocardiography Procedure Report Left Ventricle LVEDD (3.7 - 5.6 cm): 3.11 cm LVESD (2.2 - 4.0 cm): 2.35 cm LVIVS thickness (0.6 - 1.2 cm): 1.07 cm, 1.20 cm LVPW thickness (0.5 - 1.0 cm): 1.24 cm LVOT Diameter 1.58 cm Left Atrium LA Volume Index (2D A2C): 23.20 ml/m2 Left Atrium Systolic Dimension: 3.60 cm Mitral Valve Right Ventricle Aorta AO Root Diam: 2.88 cm Aortic Valve Tricuspid Valve Pulmonic Valve Right Atrium Right Atrium Systolic Pressure: 26.78 ml, 26.78 ml Dictated by: Norman Cain M.D. on 01/04/2023 at 17:48 Approved by: Norman Cain M.D. on 01/04/2023 at 17:50
[2023-01-04 09:55] LABS: Bilirubin Urine NEGATIVE (NEGATIVE); Blood Urine LARGE (NEGATIVE); Clarity Urine CLEAR (CLEAR); Color Urine YELLOW (YELLOW); Glucose Urine UA NEGATIVE (NEGATIVE); Ketones Urine NEGATIVE (NEGATIVE); Leukocyte Esterase Urine MODERATE (NEGATIVE); Nitrite Urine POSITIVE (NEGATIVE); Protein Urine >=300 mg/dL (NEG/TRACE); Urine Microscopic Indicated YES; Urobilinogen Urine 0.2 EU/dL (0.2-1.0)
[2023-01-04 10:01] LABS: RBC Urine 20-50 #/HPF (0-2)
[2023-01-04 10:02] LABS: Bacteria Urine MODERATE #/HPF (NONE SEEN); Cast Seen? NONE SEEN #/LPF (NONE SEEN); Crystals Seen? None Seen #/HPF (None Seen); Mucus Urine NONE SEEN (NONE SEEN); Squamous Epithelial Cell Urine RARE #/LPF (NONE/RARE); Urine Culture Indicated YES
--- NOTE | 2023-01-04 10:07 | PC.NURSE ---
PT WAS STRAIGHT CATHED IN THE ER FOR URINE SAMPLE FOR TESTING. 19F FEMALE STRAIGHT CATH USED. JOE CARE DONE, PT CLEANED WITH IODINE SWABS AND STRAIGHT CATH COMPLETED USING STERILE TECHNIQUE. PT TOLERATED WELL. URINE SAMPLE TAKEN TO LAB PER RN FOR TESTING. PT BRIEF CHANGED AND PT WAS REPOSITIONED TO LEFT SIDE.
[2023-01-04 11:15] LABS: Creatine Kinase 299 U/L (26-192)
[2023-01-04] MEDS: NOREPINEPHRINE BITARTRATE 4 MG in DEXTROSE 5 % IN WATER 250 ML 30.48 MG IV (11:24)
[2023-01-04] MEDS: CIPROFLOXACIN IN 5 % DEXTROSE 400 MG/200 ML PIGGYBACK 200 MG IV (11:27)
[2023-01-04 17:06] LABS: Lactate/Lactic Acid 2.6 mmol/L (0.4-2.0)
--- NOTE | 2023-01-04 18:45 | P.HP_ITS ---
H&P: HPI History of Present Illness Chief complaint: DIZZINESS, SEPSIS Narrative: Patient presented to the emergency room with increasing weakness. Have significant hypotension, elevated high-sensitivity troponin, patient was placed on dobutamine, consultation with cardiology, initially thinking more heart fail ure, with leukocytosis and positive lactate more likely sepsis, changed to Levophed, patient improved in ER with improving blood pressures. Transferred up to ICU for severe sepsis with septic shock. Review of Systems ROS Constitutional Reports: fever and chills Eyes Denies: change in vision Ears, nose, mouth, and throat Denies: throat pain Cardiovascular Denies: chest pain Respiratory Reports: cough Gastrointestinal Denies: abdominal pain Genitourinary Reports: painful urination and urinary frequency Musculoskeletal Reports: back pain Neurological Denies: headache Psychiatric Denies: anxiety Endocrine Reports: excessive urination Allergic/Immunologic Reports: hives [facility] Medical History (Updated 01/05/23 @ 08:59 by Willi Doherty MD) Surgical History (Updated 01/04/23 @ 13:49 by Jillian Ford) Meds Home Medications and Allergies Home Medications Medication Instructions Recorded Confirmed Type [place]-3 PO DAILY 01/04/23 History aspirin 81 mg chewable tablet 1 tab PO DAILY 01/04/23 01/04/23 History (Aspirin Childrens) atorvastatin 80 mg tablet 80 mg PO DAILY 01/04/23 01/04/23 History calcium lactate 100 mg calcium 100 mg PO DAILY 01/04/23 01/04/23 History tablet carvedilol 25 mg tablet 25 mg PO Q12H 01/04/23 01/04/23 History cetirizine 10 mg tablet (24Hour 10 mg PO DAILY PRN allergy symptoms 01/04/23 01/04/23 History Allergy) cholecalciferol (vitamin D3) 25 25 mcg PO DAILY 01/04/23 01/04/23 History mcg (1,000 unit) capsule (Vitamin D3) gabapentin 100 mg capsule 200 mg PO Q12H 01/04/23 01/04/23 History levalbuterol tartrate 45 2 inh inhalation Q6H 01/04/23 01/04/23 History mcg/actuation aerosol inhaler meclizine 25 mg tablet 25 mg PO DAILY PRN dizziness 01/04/23 01/04/23 History melatonin 5 mg tablet 5 mg PO .HS PRN sleep 01/04/23 01/04/23 History potassium chloride 10 mEq 10 meq PO DAILY 01/04/23 01/04/23 History tablet,extended release terbinafine HCl 250 mg tablet 250 mg PO DAILY 01/04/23 01/04/23 History Allergies Allergy/AdvReac Type Severity Reaction Status Date / Time No Known Drug Allergies Allergy Verified 01/04/23 06:20 Exam Constitutional Vital Signs, click to edit/add: Last Vital Signs Temp 99.3 F 01/05/23 07:00 Pulse 89 01/05/23 08:00 Resp 18 01/05/23 07:00 BP 136/80 H 01/05/23 07:30 Pulse Ox 95 01/05/23 07:00 O2 Del Method Room Air 01/05/23 07:00 Common normals: apparent distress General appearance: not comfortable Chest Common normals: inspection of chest normal Respiratory Effort & inspection: actively coughing Auscultation: rhonchi Cardio Common normals: regular rhythm and no murmurs Rate: tachycardic GI Common normals: Normal to inspection, nondistended, normoactive bowel sounds present Common normals: no CVA tenderness Extremity Common normals: normal to inspection (no Peripheral edema) and no calf tenderness Results Labs Labs: Short CBC 01/05/23 Range/Units 04:36 WBC 19.0 H (4.0-11.0) 10^3/uL Hgb 10.8 L (12.0-16.0) g/dL Hct 34.0 L (36.0-48.0) % Plt Count 209 (150-450) 10^3/uL BMP 01/05/23 04:36 Sodium 137 Potassium 3.3 L Chloride 105 Carbon Dioxide 23.0 BUN 17.0 Creatinine 1.21 H Glucose 117 H Calcium 8.6 Cardiac Enzymes 01/04/23 Range/Units 07:57 Total Creatine Kinase 299 H (26-192) U/L Liver Function 01/05/23 Range/Units 04:36 Total Bilirubin 0.9 (0.2-1.0) mg/dL AST 35 (15-37) U/L ALT 20 (14-59) U/L Alkaline Phosphatase 84 (46-116) U/L Albumin 2.4 L (3.4-5.0) g/dL Urine 01/04/23 Range/Units 09:45 Urine Color Yellow (YELLOW) Urine Clarity Clear (CLEAR) Urine pH 7.0 (5.0-9.0) Ur Specific [place] 1.020 (1.005-1.025) Urine Protein >=300 A (NEG/TRACE) mg/dL Urine Glucose (UA) Negative (NEGATIVE) mg/dL Assessment and Plan Assessment and Plan (1) Non-ST elevation [place] (NSTEMI): (2) GERD (gastroesophageal reflux disease): (3) Hypertension: (4) UTI (urinary tract infection): Plan Acute onset of shortness of breath and weakness with elevated high-sensitivity cccvsuhv-jnsjlq-uwzeaysimugkan with good ejection fraction on initial calculation, pending cardiology review. We will consult to cardiology today. Cardiology involved in ER Severe sepsis with septic shock with sinus tachycardia, respiratory distress, Leukocytosis, acute kidney injury, positive lactate, high-sensitivity troponin elevation which is possibly demand ischemia-IV antibiotics, IV fluids, given boluses in ER will-maintain High fluids overnight. Patient currently on Levophed, try to wean off of Levophed overnight History of hypertension-we will hold off on blood pressure medications used as an outpatient since patient is currently hypotensive Morbid obesity-diet management Admit patient inpatient ICUSecondary to the severe sepsis with septic shock requiring Levophed-Patient likely in the hospital 3 to 4 days.
[2023-01-04] MEDS: LACTATED RINGER'S SOLUTION 1,000 ML 125 ML IV (20:40)
[2023-01-04] MEDS: PANTOPRAZOLE SODIUM 40 MG VIAL IV (20:41)
[2023-01-04 20:42] LABS: A. calcoaceticus-baumannii Cpx NOT DETECTED (NOT DETECTE); Bacteroides fragilis NOT DETECTED (NOT DETECTE); Candida albicans NOT DETECTED (NOT DETECTE); Candida auris NOT DETECTED (NOT DETECTE); Candida glabrata NOT DETECTED (NOT DETECTE); Candida krusei NOT DETECTED (NOT DETECTE); Candida parapsilosis NOT DETECTED (NOT DETECTE); Candida tropicalis NOT DETECTED (NOT DETECTE); Cryptococcus neoformans/gattii NOT DETECTED (NOT DETECTE); Enterobacter cloacae complex NOT DETECTED (NOT DETECTE); Enterococcus faecalis NOT DETECTED (NOT DETECTE); Enterococcus faecium NOT DETECTED (NOT DETECTE); Haemophilus influenzae NOT DETECTED (NOT DETECTE); Klebsiella aerogenes NOT DETECTED (NOT DETECTE); Klebsiella pneumoniae group NOT DETECTED (NOT DETECTE); Listeria monocytogenes NOT DETECTED (NOT DETECTE); Neisseria meningitidis NOT DETECTED (NOT DETECTE); Proteus spp. NOT DETECTED (NOT DETECTE); Pseudomonas aeruginosa NOT DETECTED (NOT DETECTE); Salmonella spp. NOT DETECTED (NOT DETECTE); Serratia marcescens NOT DETECTED (NOT DETECTE); Staphylococcus epidermidis NOT DETECTED (NOT DETECTE); Staphylococcus lugdunensis NOT DETECTED (NOT DETECTE); Staphylococcus spp. NOT DETECTED (NOT DETECTE); Stenotrophomonas maltophilia NOT DETECTED (NOT DETECTE); Streptococcus agalactiae NOT DETECTED (NOT DETECTE); Streptococcus pneumoniae NOT DETECTED (NOT DETECTE); Streptococcus pyogenes NOT DETECTED (NOT DETECTE); Streptococcus spp. NOT DETECTED (NOT DETECTE)
[2023-01-04] MEDS: PIPERACILLIN SODIUM/TAZOBACTAM 3.375 GM in 0.9 % SODIUM CHLORIDE 50 ML IV (20:46)
[2023-01-04] MEDS: ACETAMINOPHEN 500 MG TABLET 1000 MG PO (20:50)
[2023-01-04] MEDS: L. ACIDOPHILUS/L.BULGARICUS 1 PACKET GRAN.PACK PO (20:51)
[2023-01-04] MEDS: GABAPENTIN 100 MG CAPSULE 200 MG PO (20:51)
[2023-01-04 22:14] LABS: Enterobacterales DETECTED (NOT DETECTE)
[2023-01-04] MEDS: IPRATROPIUM/ALBUTEROL SULFATE 3 ML AMPUL.NEB IH (23:27)
[2023-01-05] VITALS (66 sets, daily range): BP systolic 75–147; BP diastolic 48–102; PULSE 72–111; RESP 14–18; TEMP 36.8–37.4; O2SAT 89–97; BMI 23.3
[2023-01-05] MEDS: NOREPINEPHRINE BITARTRATE 4 MG in DEXTROSE 5 % IN WATER 250 ML 7.62 MG IV (01:30)
--- NOTE | 2023-01-05 03:24 | PC.NURSE ---
IV Levophed reinitiated at 2 MCG/Min per physician order for Hypotension while sleeping.
[2023-01-05] MEDS: LACTATED RINGER'S SOLUTION 1,000 ML 125 ML IV (03:29)
[2023-01-05 04:45] LABS: Basophils Absolute Auto 0.1 10^3/uL (0.0-0.1); Basophils Percent Auto 0.3 % (0.2-2.0); Eosinophils Percent Auto 0.1 % (0.9-7.0); Hemoglobin 10.8 g/dL (12.0-16.0); Immature Granulocytes Abs Auto 0.32 10^3/uL (0.00-0.03); Immature Granulocytes Pct Auto 1.7 % (0.0-0.5); Lymphocytes Absolute Auto 1.3 10^3/uL (1.2-3.8); Lymphocytes Percent Auto 7.1 % (20.5-60.0); Mean Corpuscular HGB Conc 31.8 g/dL (29.9-35.2); Mean Corpuscular Hemoglobin 28.3 pg (26.7-34.0); Mean Corpuscular Volume 89.2 fL (81.0-99.0); Mean Platelet Volume 8.9 fL (9.5-13.5); Monocytes Absolute Auto 0.7 10^3/uL (0.3-0.8); Monocytes Percent Auto 3.5 % (1.7-12.0); Neutrophils Absolute Auto 16.6 10^3/uL (1.4-6.5); Neutrophils Percent Auto 87.3 % (43.0-75.0); Platelet Count 209 10^3/uL (150-450); Red Blood Count 3.81 10^6/uL (4.20-5.40); Red Cell Distribution Width 15.7 % (11.0-15.0)
[2023-01-05 05:17] LABS: Alanine Aminotransferase 20 U/L (14-59); Albumin Globulin Ratio 0.5; Albumin Level 2.4 g/dL (3.4-5.0); Alkaline Phosphatase 84 U/L (46-116); Anion Gap 12.3; Aspartate Amino Transferase 35 U/L (15-37); Bilirubin Total 0.9 mg/dL (0.2-1.0); Calcium 8.6 mg/dL (8.5-10.1); Chloride 105 mmol/L (98-107); Estimated GFR (African America 52 (>=60); Estimated GFR (Non-African Ame 43 (>=60); Globulin 4.5 g/dL; Glucose 117 mg/dL (74-106); Potassium 3.3 mmol/L (3.5-5.1); Sodium 137 mmol/L (136-145); Total Protein 6.9 g/dL (6.4-8.2)
[2023-01-05 05:24] LABS: Troponin I High Sensitivity 748.9 pg/mL (4.0-51.3)
--- NOTE | 2023-01-05 06:29 | RESP.RT ---
HHN not given at 0500. RT busy in ER with critical patient.
[2023-01-05] MEDS: PIPERACILLIN SODIUM/TAZOBACTAM 3.375 GM in 0.9 % SODIUM CHLORIDE 50 ML IV ×3 (06:31→21:37)
[2023-01-05] MEDS: FERROUS SULFATE 325 MG TABLET PO (08:22)
[2023-01-05] MEDS: ATORVASTATIN CALCIUM 40 MG TABLET 80 MG PO (08:22)
[2023-01-05] MEDS: ASPIRIN 81 MG TAB.CHEW PO (08:22)
[2023-01-05] MEDS: CHOLECALCIFEROL (VITAMIN D3) 25 MCG/1,000 UNITS TABLET PO (08:23)
[2023-01-05] MEDS: L. ACIDOPHILUS/L.BULGARICUS 1 PACKET GRAN.PACK PO ×2 (08:23→21:37)
[2023-01-05] MEDS: GABAPENTIN 100 MG CAPSULE 200 MG PO ×2 (08:23→21:37)
--- NOTE | 2023-01-05 09:01 | PC.NURSE ---
01/05/23 cardiology called and consulted, pt echo confirmed done yesterday and signed. Fredrick Orona RN
[2023-01-05] MEDS: POTASSIUM CHLORIDE 10 MEQ ER TABLET 20 MEQ PO ×2 (09:08→21:37)
--- NOTE | 2023-01-05 09:08 | P.PN_ITS ---
Progress Note: Subjective Subjective Interval history: Patient states she does feel better today, she is awake and alert, still difficult to communicate secondary to language barrier, and her difficulty hearing with her hearing aid not functioning Exam Constitutional Vital Signs, click to edit/add: Last Vital Signs Temp 99.3 F 01/05/23 07:00 Pulse 89 01/05/23 08:00 Resp 18 01/05/23 07:00 BP 136/80 H 01/05/23 07:30 Pulse Ox 95 01/05/23 07:00 O2 Del Method Room Air 01/05/23 07:00 HENAK Common normals: normocephalic Chest Common normals: inspection of chest normal Respiratory Common normals: normal respiratory effort; not clear to ascultation bilaterally Auscultation: rhonchi Cardio Common normals: no JVD, regular rate and regular rhythm GI Common normals: Normal to inspection, nondistended, normoactive bowel sounds present Extremity Common normals: normal to inspection (No peripheral edema) Progress Note: Objective Labs Labs: Short CBC 01/05/23 Range/Units 04:36 WBC 19.0 H (4.0-11.0) 10^3/uL Hgb 10.8 L (12.0-16.0) g/dL Hct 34.0 L (36.0-48.0) % Plt Count 209 (150-450) 10^3/uL BMP 01/05/23 04:36 Sodium 137 Potassium 3.3 L Chloride 105 Carbon Dioxide 23.0 BUN 17.0 Creatinine 1.21 H Glucose 117 H Calcium 8.6 Cardiac Enzymes 01/04/23 Range/Units 07:57 Total Creatine Kinase 299 H (26-192) U/L Liver Function 01/05/23 Range/Units 04:36 Total Bilirubin 0.9 (0.2-1.0) mg/dL AST 35 (15-37) U/L ALT 20 (14-59) U/L Alkaline Phosphatase 84 (46-116) U/L Albumin 2.4 L (3.4-5.0) g/dL Urine 01/04/23 Range/Units 09:45 Urine Color Yellow (YELLOW) Urine Clarity Clear (CLEAR) Urine pH 7.0 (5.0-9.0) Ur Specific [place] 1.020 (1.005-1.025) Urine Protein >=300 A (NEG/TRACE) mg/dL Urine Glucose (UA) Negative (NEGATIVE) mg/dL Progress Note: A&P Assessment and Plan (1) Non-ST elevation [place] (NSTEMI): (2) GERD (gastroesophageal reflux disease): (3) Hypertension: (4) UTI (urinary tract infection): Plan Acute onset of shortness of breath and weakness with elevated high-sensitivity trbpiwet-ilktlu-vpcslkibhdlcuj with good ejection fraction on initial calculation, pending cardiology review.? Cardiology here today for evaluation, high-sensitivity troponin improving, BNP now elevated, but no peripheral edema, will saline lock Severe sepsis with septic shock with sinus tachycardia, respiratory distress, Leukocytosis, acute kidney injury, positive lactate,? high-sensitivity troponin elevation which is possibly demand ischemia- elevated BNPWe will hold off on fluid further fluids blood pressures better, weaned off of Levophed but then had to be placed back on the Levophed overnight . White blood cell count is higher today but did start antibiotics last night, But blood pressure is much improved and likely weaned off again this morning. Continue with current antibiotics. Does appear to be growing E. coli on her blood culture.Also showing Enterobacter but this is likely just cross-reactivity On the testing. History of hypertension-we will hold off on blood pressure medications used as an outpatient since patient is currently hypotensive Morbid obesity-diet management Admit patient inpatient ICUSecondary to the severe sepsis with septic shock requiring Levophed-Patient likely in the hospital 3 to 4 days.
--- NOTE | 2023-01-05 10:15 | PC.NURSE ---
01/05/23 1015 obtained sputum sample sent to [facility]. Fredrick Orona RN
--- NOTE | 2023-01-05 10:20 | PC.NURSE ---
01/05/23 1020 called lab to get covid test updated on importance of stat order due to waiting for cardiology consult. along, with need for lab to come to unit to get sputum sample. Fredrick Orona RN
[2023-01-05 11:00] LABS: SARS-CoV-2 Ag reflex to NAA Positive (NEGATIVE)
--- NOTE | 2023-01-05 11:02 | PC.NURSE ---
01/05/[address] dela cruz aware of + urine and blood culture ok with current atb therapy. pt covid result + updated dr dela cruz and cardiology nno at this time. Fredrick Orona RN
--- NOTE | 2023-01-05 11:22 | PC.NURSE ---
1122 01/05/23 updated pt dtr on + covid along with visiting restrictions. updated resp Tyra RT on order changes and pt + covid status. pt placed in droplet precautions. Fredrick Orona RN
[2023-01-05] MEDS: CIPROFLOXACIN IN 5 % DEXTROSE 400 MG/200 ML PIGGYBACK 200 MG IV (12:00)
--- NOTE | 2023-01-05 14:14 | PC.NURSE ---
1405 [id number] spoke with RT Tyra will contact DR Doherty to clarify breathing tx orders to be switched on inhaler version due to covid + status. Fredrick Orona RN
--- NOTE | 2023-01-05 14:37 | PC.NURSE ---
1437 01/05/23 [employer] crew[employer] called cardiology again will be calling for pt information after clinic hours. Fredrick Orona RN
--- NOTE | 2023-01-05 15:02 | SWNOTE1 ---
SW called and left message for pt's daughter listed in contacts.
--- NOTE | 2023-01-05 15:27 | SWNOTE1 ---
There is a language barrier with pt, but SW to check in and assess pt. She is now covid positive. Pt's daughter called back and SW spoke with her. Pt lives at home alone, some children live close by to help. Daughter stated pt usually does most of the housekeeping at home, but daughter comes over to help as well. Pt cooks at home. Pt uses a walker at home at all times. Daughter expressed that pt is usually fairly independent with her walker and goes about her normal activities at home. Pt has had home health in past and also went to [place] and [facility] in past. SW checked therapy notes while on phone with daughter and they are recommending skilled. SW let daughter know since she is covid positive she will have limited choices. SW to reach out to [place] as pt's daughter would like her to stay in [place] if possible. Daughter going to talk with her brother and call SW back.
--- NOTE | 2023-01-05 16:03 | SWNOTE1 ---
[place] does take covid positive.
--- NOTE | 2023-01-05 16:21 | SWNOTE1 ---
XI spoke with daughter and family has agreed she does need rehab, they are alright with [facility]. XI sent referral to [facility]. Luiz in admissions at [facility] will be working from home and able to review referral. XI updated nursing. Possible dc Sunday.
--- NOTE | 2023-01-05 16:28 | SWNOTE1 ---
Referral has been sent to [facility] to stay in contact admissions via cell if any concerns/questions, plan for discharge Sunday.
--- NOTE | 2023-01-05 16:45 | SWNOTE1 ---
SW was able to go in room and spoke with daughter outside of room, pt now has hearing aides. SW did explain to pt she needs to go to rehab to get stronger. Unsure how much she understood, but daughter will be calling her to explain more.
[2023-01-05] MEDS: ALBUTEROL SULFATE 200 PUFF/6.7 GM INHALER IH (22:00)
[2023-01-05] MEDS: IPRATROPIUM BROMIDE 200 PUFF/12.9 GM INHALER IH (22:00)
[2023-01-06] VITALS (19 sets, daily range): BP systolic 113–133; BP diastolic 66–83; PULSE 72–95; RESP 16–20; TEMP 36.3–36.9; O2SAT 91–98
[2023-01-06 04:39] LABS: Basophils Percent Auto 0.1 % (0.2-2.0); Hematocrit 29.6 % (36.0-48.0); Hemoglobin 9.6 g/dL (12.0-16.0); Immature Granulocytes Abs Auto 0.48 10^3/uL (0.00-0.03); Immature Granulocytes Pct Auto 3.3 % (0.0-0.5); Lymphocytes Absolute Auto 1.1 10^3/uL (1.2-3.8); Lymphocytes Percent Auto 7.3 % (20.5-60.0); Mean Corpuscular HGB Conc 32.4 g/dL (29.9-35.2); Mean Corpuscular Hemoglobin 27.8 pg (26.7-34.0); Mean Corpuscular Volume 85.8 fL (81.0-99.0); Mean Platelet Volume 9.5 fL (9.5-13.5); Monocytes Absolute Auto 0.5 10^3/uL (0.3-0.8); Monocytes Percent Auto 3.1 % (1.7-12.0); Neutrophils Absolute Auto 12.7 10^3/uL (1.4-6.5); Neutrophils Percent Auto 86.2 % (43.0-75.0); Platelet Count 202 10^3/uL (150-450); Red Blood Count 3.45 10^6/uL (4.20-5.40); Red Cell Distribution Width 15.5 % (11.0-15.0); White Blood Count 14.7 10^3/uL (4.0-11.0)
[2023-01-06 04:58] LABS: Alanine Aminotransferase 19 U/L (14-59); Albumin Globulin Ratio 0.5; Albumin Level 2.2 g/dL (3.4-5.0); Alkaline Phosphatase 85 U/L (46-116); Anion Gap 12.6; Aspartate Amino Transferase 30 U/L (15-37); Bilirubin Total 0.5 mg/dL (0.2-1.0); Calcium 8.3 mg/dL (8.5-10.1); Carbon Dioxide 22.6 mmol/L (21.0-32.0); Chloride 105 mmol/L (98-107); Estimated GFR (African America >60 (>=60); Estimated GFR (Non-African Ame >60 (>=60); Globulin 4.3 g/dL; Glucose 168 mg/dL (74-106); Potassium 4.2 mmol/L (3.5-5.1); Sodium 136 mmol/L (136-145); Total Protein 6.5 g/dL (6.4-8.2)
[2023-01-06 05:07] LABS: Troponin I High Sensitivity 276.5 pg/mL (4.0-51.3)
[2023-01-06] MEDS: ALBUTEROL SULFATE 200 PUFF/6.7 GM INHALER IH ×3 (05:50→22:27)
[2023-01-06] MEDS: IPRATROPIUM BROMIDE 200 PUFF/12.9 GM INHALER IH ×3 (05:50→22:27)
[2023-01-06] MEDS: PIPERACILLIN SODIUM/TAZOBACTAM 3.375 GM in 0.9 % SODIUM CHLORIDE 50 ML IV (05:52)
[2023-01-06] MEDS: POTASSIUM CHLORIDE 10 MEQ ER TABLET 20 MEQ PO ×2 (08:35→21:20)
[2023-01-06] MEDS: CHOLECALCIFEROL (VITAMIN D3) 25 MCG/1,000 UNITS TABLET PO (08:35)
[2023-01-06] MEDS: ATORVASTATIN CALCIUM 40 MG TABLET 80 MG PO (08:35)
[2023-01-06] MEDS: L. ACIDOPHILUS/L.BULGARICUS 1 PACKET GRAN.PACK PO ×2 (08:35→21:20)
[2023-01-06] MEDS: DEXAMETHASONE 4 MG TABLET PO (08:35)
[2023-01-06] MEDS: ASPIRIN 81 MG TAB.CHEW PO (08:35)
[2023-01-06] MEDS: FERROUS SULFATE 325 MG TABLET PO (08:36)
[2023-01-06] MEDS: GABAPENTIN 100 MG CAPSULE 200 MG PO ×2 (08:36→21:19)
--- NOTE | 2023-01-06 09:13 | P.PN_ITS ---
Progress Note: Subjective Subjective Interval history: Awake, alert, talkative, complains of some right-sided nasal congestion and constipation, otherwise she states her breathing feels better Exam Constitutional Vital Signs, click to edit/add: Last Vital Signs Temp 97.9 F 01/06/23 04:28 Pulse 91 H 01/06/23 07:45 Resp 18 01/06/23 04:28 BP 113/66 01/06/23 04:28 Pulse Ox 93 L 01/06/23 04:28 O2 Del Method Room Air 01/06/23 04:28 Documenting provider has reviewed patient's vital signs: yes Common normals: no apparent distress Chest Common normals: inspection of chest normal Respiratory Auscultation: rhonchi (Much improved) Cardio Common normals: regular rate, regular rhythm and no murmurs GI Common normals: Normal to inspection, nondistended, normoactive bowel sounds present Extremity Common normals: normal to inspection (No peripheral edema) Progress Note: Objective Labs Labs: Short CBC 01/06/23 Range/Units 04:23 WBC 14.7 H (4.0-11.0) 10^3/uL Hgb 9.6 L (12.0-16.0) g/dL Hct 29.6 L (36.0-48.0) % Plt Count 202 (150-450) 10^3/uL BMP 01/06/23 04:23 Sodium 136 Potassium 4.2 Chloride 105 Carbon Dioxide 22.6 BUN 18.0 Creatinine 0.90 Glucose 168 H Calcium 8.3 L Liver Function 01/06/23 Range/Units 04:23 Total Bilirubin 0.5 (0.2-1.0) mg/dL AST 30 (15-37) U/L ALT 19 (14-59) U/L Alkaline Phosphatase 85 (46-116) U/L Albumin 2.2 L (3.4-5.0) g/dL Progress Note: A&P Assessment and Plan (1) Non-ST elevation [place] (NSTEMI): (2) GERD (gastroesophageal reflux disease): (3) Hypertension: (4) UTI (urinary tract infection): Plan Acute onset of shortness of breath and weakness with elevated high-sensitivity kmwpvtmx-oylsrf-zdflmdpylwymob with good ejection fraction on initial calculation, pending cardiology review.? Cardiology reviewed the chart yesterday, nothing else to add. hypotension Severe sepsis with septic shock requiring levophed on admission - with sinus tachycardia, respiratory distress, Leukocytosis, acute kidney injury, positive lactate,? high-sensitivity troponin elevation which is possibly demand ischemia- elevated BNP- Complicated by acute COVID 19.Added steroids yesterday secondary to the COVID. She is already on antibiotics. Changed from aerosols to inhalers.Patient is improved today.She was not hypoxic so did not start Antiviral medications.She was outside the window of treating with [facility].Maintain isolation protocols.Okay to transfer to [facility] fluid overload-improved from previous day. Secondary to initial fluid boluses given. She is saline lock currently. BNP is much improved today. I History of hypertension-we will hold off on blood pressure medications used as an outpatient - BP stable off of blood pressure medications Epkixwrdhdk-ciplhpdlsp-mlydejsh Morbid obesity-diet management Admit patient inpatient ICU Secondary to the severe sepsis with septic shock requiring Levophed-patient making faster recovery than anticipated on initial admission-possible transfer to SNF tomorrow.
[2023-01-06] MEDS: FLUTICASONE PROPIONATE 50 MCG NASAL SPRAY 1 SPRAY NS (09:29)
--- NOTE | 2023-01-06 11:36 | REH.PTDLY ---
Physical Therapy Daily Note PT Daily Note/Assess Start: 01/06/23 11:29 Freq: Status: Active Protocol: Document 01/06/23 11:30 BERNARDO (Rec: 01/06/23 11:36 BERNARDO [id number]) Physical Therapy Daily Note/Assessment Time In 10:41 Time Out 11:00 Subjective No new complaints, in bed upon arrival. Agreeable to therapy . Therapeutic Exercise Minutes (minutes) 5 Therapeutic Exercise Units 0 Therapeutic Exercise Treatment Instructed in B LE seated exs 10x ea with cues and demo to improve strength for ease of transfers. Therapeutic Activity Minutes (minutes) 12 Therapeutic Activity Units 1 Therapeutic Activity Comments CGA with supine to sit transfers. Sit to stand transfers CGA. Gait training adding SW today as pt tends to hold onto furniture as she ambulates per eval and nursing . Pt ambulates at slow pace but able to walk a distance of 32 feet SBA. Standing arm raises and head turns with no LOB noted, however pt tends to keep leaning leg against chair with cues not to, but not able to follow direction. Total Therapy Minutes 17 Total Physical Therapy Units 1 Daily Note Summary Progressed with gait distance adding AD for safety as pt had not been using one but frequent falls prior to admission per nursing. Pt cooperates and has good attitude with therapy. Pt is planning to go to [place] for skilled stay.
[2023-01-06] MEDS: LACTULOSE 10 GM/15 ML (237ML) SOLUTION 30 GM PO ×2 (13:25→21:19)
[2023-01-06] MEDS: CIPROFLOXACIN IN 5 % DEXTROSE 400 MG/200 ML PIGGYBACK 200 MG IV ×2 (13:25→23:41)
[2023-01-06] MEDS: 0.9 % SODIUM CHLORIDE 250 ML 30 ML IV (23:41)
[2023-01-07] VITALS (12 sets, daily range): BP systolic 129–146; BP diastolic 73–88; PULSE 70–95; RESP 16–18; TEMP 36.6; O2SAT 95–97
[2023-01-07] MEDS: LACTULOSE 10 GM/15 ML (237ML) SOLUTION 30 GM PO (05:11)
[2023-01-07 05:13] LABS: Basophils Percent Auto 0.1 % (0.2-2.0); Eosinophils Percent Auto 0.1 % (0.9-7.0); Hematocrit 32.1 % (36.0-48.0); Hemoglobin 10.3 g/dL (12.0-16.0); Immature Granulocytes Abs Auto 0.12 10^3/uL (0.00-0.03); Immature Granulocytes Pct Auto 0.7 % (0.0-0.5); Lymphocytes Absolute Auto 1.3 10^3/uL (1.2-3.8); Mean Corpuscular HGB Conc 32.1 g/dL (29.9-35.2); Mean Corpuscular Hemoglobin 27.8 pg (26.7-34.0); Mean Corpuscular Volume 86.8 fL (81.0-99.0); Mean Platelet Volume 9.4 fL (9.5-13.5); Monocytes Absolute Auto 0.8 10^3/uL (0.3-0.8); Monocytes Percent Auto 4.6 % (1.7-12.0); Neutrophils Absolute Auto 14.5 10^3/uL (1.4-6.5); Neutrophils Percent Auto 86.5 % (43.0-75.0); Platelet Count 226 10^3/uL (150-450); Red Cell Distribution Width 15.8 % (11.0-15.0); White Blood Count 16.7 10^3/uL (4.0-11.0)
[2023-01-07 05:19] LABS: Anion Gap 13.9; BUN Creatinine Ratio 21.2; Calcium 8.5 mg/dL (8.5-10.1); Carbon Dioxide 22.4 mmol/L (21.0-32.0); Chloride 106 mmol/L (98-107); Estimated GFR (African America >60 (>=60); Estimated GFR (Non-African Ame >60 (>=60); Glucose 128 mg/dL (74-106); Potassium 4.3 mmol/L (3.5-5.1); Sodium 138 mmol/L (136-145)
[2023-01-07] MEDS: IPRATROPIUM BROMIDE 200 PUFF/12.9 GM INHALER IH ×2 (05:31→11:46)
[2023-01-07] MEDS: ALBUTEROL SULFATE 200 PUFF/6.7 GM INHALER IH ×2 (05:31→11:46)
[2023-01-07] MEDS: DEXAMETHASONE 4 MG TABLET PO (09:01)
[2023-01-07] MEDS: ASPIRIN 81 MG TAB.CHEW PO (09:02)
[2023-01-07] MEDS: ATORVASTATIN CALCIUM 40 MG TABLET 80 MG PO (09:02)
[2023-01-07] MEDS: FERROUS SULFATE 325 MG TABLET PO (09:02)
[2023-01-07] MEDS: CHOLECALCIFEROL (VITAMIN D3) 25 MCG/1,000 UNITS TABLET PO (09:02)
[2023-01-07] MEDS: GABAPENTIN 100 MG CAPSULE 200 MG PO (09:03)
[2023-01-07] MEDS: FLUTICASONE PROPIONATE 50 MCG NASAL SPRAY 1 SPRAY NS (09:03)
[2023-01-07] MEDS: L. ACIDOPHILUS/L.BULGARICUS 1 PACKET GRAN.PACK PO (09:03)
[2023-01-07] MEDS: POTASSIUM CHLORIDE 10 MEQ ER TABLET 20 MEQ PO (09:03)
--- NOTE | 2023-01-07 10:02 | P.DS_ITS ---
DS: Providers Provider Date of admission: 01/04/23 17:45 Primary care physician: Willi Doherty MD Consults: 01/04/23 17:36 Occupational Therapy Eval and Treat Routine Physical Therapy Eval and Treat Routine 01/05/23 08:51 Consult to Cardiology Routine Consulting Provider: Pedro Bill DS: Diagnosis Discharge Diagnosis (1) Non-ST elevation SC (NSTEMI): (2) GERD (gastroesophageal reflux disease): (3) Hypertension: (4) UTI (urinary tract infection): Plan Acute onset of shortness of breath and weakness with elevated high-sensitivity troponin-nstemi- With demand ischemia complicated by COVID-19 - hypotension Severe sepsis with septic shock - hypotensive - requiring levophed and aggresive fluid resuscitation on admission History of hypertension Kehsdeqtgte-gaoiiullzh-gtttnymz Morbid obesity-diet management DS: Summary Hospital Course Hospital Course: Patient admitted with hypotension Severe sepsis with septic shock - hypotensive - requiring levophed and aggresive fluid resuscitation on admission - with sinus tachycardia, respiratory distress, Leukocytosis, acute kidney injury, positive lactate,? high-sensitivity troponin elevation which is possibly demand ischemia- elevated BNP- Complicated by acute COVID 19. Patient initially admitted to the ICU on Levophed. Over the first 12 hours it was able to be weaned off but then needed to be replaced., But then weaned off shortly after that. Patient did develop a little bit of fluid overload. That just improved by discontinuing fluids. Her blood culture did come back positive for E. coli. Sensitivities were sensitive to everything. With the COVID-19 and positive gram-negative sepsis secondary to E. coli but patient improved rapidly. She will be discharged to rehab facility to improve strength and conditioning. We will not need further IV antibiotics due to sensitivities to the E. coli. Wilber stevens stable for discharge to rehab. Medications see list. I will see patient after discharge from rehab Status at Discharge Functional status at discharge: uses cane/walker Time Spent with Patient Time attestation: Total time spent providing and/or coordinating discharge services: Exam Constitutional Vital Signs, click to edit/add: Last Vital Signs Temp 97.9 F 01/07/23 05:10 Pulse 73 01/07/23 08:04 Resp 16 01/07/23 05:31 BP 146/88 H 01/07/23 05:10 Pulse Ox 95 01/07/23 05:31 O2 Del Method Room Air 01/07/23 05:31 Documenting provider has reviewed patient's vital signs: yes Common normals: no apparent distress Chest Common normals: inspection of chest normal Respiratory Auscultation: rhonchi (Much improved) Cardio Common normals: regular rate, regular rhythm and no murmurs GI Common normals: Normal to inspection, nondistended, normoactive bowel sounds present Extremity Common normals: normal to inspection (No peripheral edema) DS: Data Data Completed and Pending Labs on day of discharge: Labs from last 24 hours 01/07/23 05:00 WBC 16.7 H RBC 3.70 L Hgb 10.3 L Hct 32.1 L MCV 86.8 MCH 27.8 MCHC 32.1 RDW 15.8 H Plt Count 226 MPV 9.4 L Neut % (Auto) 86.5 H Lymph % (Auto) 8.0 L [place] % (Auto) 4.6 Eos % (Auto) 0.1 L Baso % (Auto) 0.1 L Neut # (Auto) 14.5 H Lymph # (Auto) 1.3 [place] # (Auto) 0.8 Eos # (Auto) 0.0 Baso # (Auto) 0.0 Abs Immat Gran (auto) 0.12 H Imm/Tot Granulo (auto) 0.7 H Sodium 138 Potassium 4.3 Chloride 106 Carbon Dioxide 22.4 Anion Gap 13.9 BUN 18.0 Creatinine 0.85 Est GFR ( Amer) >60 Est GFR (Non-Af Amer) >60 BUN/Creatinine Ratio 21.2 Glucose 128 H Calcium 8.5 Preliminary micro results at discharge 01/05/23 10:12 Sputum Culture - Preliminary Sputum - Expectorated Sputum 01/04/23 06:20 Blood Culture Result 1 - Preliminary Blood Escherichia coli Discharge Plan Discharge Disposition: Xfer SNF Condition: Good Discharge Medications: New ciprofloxacin HCl 500 mg Tablet 500 mg PO BID Qty: 7 0RF acetaminophen [Tylenol Extra Strength] 500 mg Tablet 1,000 mg PO Q6H PRN (Reason: Pain Scale 4-6) Qty: 120 11RF benzonatate 100 mg Capsule 200 mg PO Q8H PRN (Reason: Cough) Qty: 90 0RF ferrous sulfate 325 mg (65 mg iron) Tablet 325 mg PO QDAY Qty: 30 0RF dexamethasone 4 mg Tablet 4 mg PO QD Qty: 2 0RF albuterol sulfate 90 mcg/actuation Hfa Aerosol Inhaler 2 puff inhalation Q4H PRN (Reason: Dyspnea) Qty: 8.5 0RF fluticasone propionate 50 mcg/actuation [place],Suspension 1 spray intranasal QDAY Qty: 16 0RF Continued gabapentin 100 mg capsule 200 mg PO Q12H melatonin 5 mg tablet 5 mg PO .HS PRN (Reason: sleep) aspirin [Aspirin Childrens] 81 mg tablet,chewable 1 tab PO DAILY meclizine 25 mg tablet 25 mg PO DAILY PRN (Reason: dizziness) atorvastatin 80 mg tablet 80 mg PO DAILY [place]-3 PO DAILY calcium lactate 100 mg calcium tablet 100 mg PO DAILY cholecalciferol (vitamin D3) [Vitamin D3] 25 mcg (1,000 unit) capsule 25 mcg PO DAILY cetirizine [24Hour Allergy] 10 mg tablet 10 mg PO DAILY PRN (Reason: allergy symptoms) Discontinued carvedilol 25 mg tablet 25 mg PO Q12H Patient Comments: 1/2 TAB 2 TIMES A DAY terbinafine HCl 250 mg tablet 250 mg PO DAILY potassium chloride 10 mEq tablet extended release 10 meq PO DAILY levalbuterol tartrate 45 mcg/actuation HFA aerosol inhaler 2 inh inhalation Q6H 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 Forms: Portal Instructions Referrals: Willi Doherty MD [Primary Care Provider] - 1 week Follow Up Appointments: Follow up with Cardiology in 1 month Discharge Date/Time: 01/07/23 12:15
== END 2023-01-07 12:15 | DRG 871 ==
LOC: ER 15:07 → ICU 17:57 → MS 01-06 17:04
PROVIDERS: Emergency Medicine Emergency Medical Services; Admitting Provider Family Medicine; Emergency Provider Emergency Medicine; PCP Family Medicine; Visit Provider Family Medicine
DX: A41.51 Sepsis due to Escherichia coli [E. coli] (principal); I21.4 Non-ST elevation (NSTEMI) myocardial infarction; R65.21 Severe sepsis with septic shock; U07.1 COVID-19; N39.0 Urinary tract infection, site not specified; N17.9 Acute kidney failure, unspecified; K21.9 Gastro-esophageal reflux disease without esophagitis; I10 Essential (primary) hypertension; E87.6 Hypokalemia; E66.01 Morbid (severe) obesity due to excess calories; E87.79 Other fluid overload; R06.03 Acute respiratory distress; Z79.82 Long term (current) use of aspirin; Z79.899 Other long term (current) drug therapy; Z87.81 Personal history of (healed) traumatic fracture; Z86.73 Personal history of transient ischemic attack (TIA), and cerebral infarction without residual deficits; Z68.23 Body mass index [BMI] 23.0-23.9, adult
CPT/HCPCS: 36415; 70450; 71045; 72170; 73610; 80048; 80053; 81003; 81015; 82550; 83605; 83735; 83880; 84484; 85025; 87040; 87070; 87086; 87150; 87186; 87205; 87635; 87811; 93005; 93308; 94640; 94667; 94668; 94761; 96361; 96365; 96366; 96367; 96368; 96375; 97162; 97165; 97530; 99285; G0328; J1250

== ENCOUNTER 2023-04-05 18:09 | Observation (INO) | payer MEDICARE, OTHER, SELFPAY ==
[2023-04-05] VITALS (21 sets, daily range): BP systolic 142–151; BP diastolic 96–100; PULSE 94–113; RESP 16–29; TEMP 36.3–36.6; O2SAT 95–98; BMI 23.0; BMI 22.7
--- NOTE | 2023-04-05 18:26 | ECG_ITS ---
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
--- NOTE | 2023-04-05 18:26 | XR_ITS ---
The [address] [address] Patient Name: SABI SANTAMARIA MRN: [id number] date: 1945 Sex: F Assigned Patient Location: ER Current Patient Location: ER Accession/Order Number: [id number] Exam Date: 04/05/2023 19:00 Report Date: 04/05/2023 19:17 At the request of: YADIRA LUA Procedure: XR chest 1V EXAM: XR chest 1V HISTORY: Shortness of breath COMPARISON: None. TECHNIQUE: Portable chest FINDINGS: IMPRESSION: Chronic changes of the lung parenchyma with no focal acute consolidation or infiltrate. No pneumothorax or pleural effusion. The heart is not enlarged. Prominence of the pulmonary artery and aorta on this study which is most likely positionally related. The osseous structures exhibit no gross visualized acute abnormality. Electronically authenticated by: SHANKAR ARIAS Date: 04/05/2023 19:17
--- NOTE | 2023-04-05 18:28 | ED.CHESTPAI1 ---
Documented by User: CHAZ Kelly 04/05/23 21:09 HPI - Chest Pain General Chief Complaint: Chest Pain Stated Complaint: Difficulty Breathing, Allergic Reaction-New Meds Time Seen by Provider: 04/05/23 18:26 Source: patient Mode of arrival: walk-in Limitations: language barrier History of Present Illness HPI narrative: patient is a 78-year-old female brought to the emergency department by her son for the evaluation of shortness of breath and tightness in the chest that began approximately one hour ago. Patient states that she was cooking, after tasting the food, she felt pressure in the chest similar to indigestion and has been feeling short of breath. She has not had any hives, lip swelling or tongue swelling, the patient's son questions whether or new medication may be causing her symptoms. She has not had any peripheral edema, vomiting, diarrhea. No fevers or upper respiratory symptoms. Family member denies any history of coronary artery disease, chronic obstructive pulmonary disease or emphysema. Related Data Home Medications Medication Instructions Recorded Confirmed [place]-3 PO DAILY 01/04/23 aspirin 81 mg chewable tablet 1 tab PO DAILY 01/04/23 04/05/23 (Aspirin Childrens) atorvastatin 80 mg tablet 80 mg PO DAILY 01/04/23 04/05/23 cetirizine 10 mg tablet (24Hour 10 mg PO DAILY PRN allergy symptoms 01/04/23 04/05/23 Allergy) cholecalciferol (vitamin D3) 25 25 mcg PO DAILY 01/04/23 04/05/23 mcg (1,000 unit) capsule (Vitamin D3) melatonin 5 mg tablet 5 mg PO .HS PRN sleep 01/04/23 04/05/23 calcium citrate 200 mg (950 mg) 200 mg PO DAILY 04/05/23 04/05/23 tablet duloxetine 30 mg capsule,delayed 30 mg PO DAILY 04/05/23 04/05/23 release Previous Rx's Medication Instructions Recorded albuterol sulfate 90 mcg/actuation 2 puff inhalation Q4H PRN Dyspnea 01/07/23 aerosol inhaler #8.5 grams ferrous sulfate 325 mg (65 mg 325 mg PO QDAY #30 tabs 01/07/23 iron) tablet fluticasone propionate 50 1 spray intranasal QDAY #16 grams 01/07/23 mcg/actuation nasal spray,suspension Allergies Allergy/AdvReac Type Severity Reaction Status Date / Time No Known Drug Allergies Allergy Verified 01/04/23 06:20 [facility] Medical History Surgical History (Updated 01/04/23 @ 13:49 by Jillian Ford) H/O: hysterectomy ?Z90.710 - Acquired absence of both cervix and uterus (ICD-10) Social History (Updated 04/05/23 @ 23:15 by Tammi Braun) Smoking status: Never smoker Non-prescribed substance use: denies use Little interest or pleasure in doing things: not at all Feeling down, depressed, or hopeless: not at all Feel stressed/tense/nervous/anxious/difficulty sleeping: not at all Life stressors: unknown source of stress Exam Constitutional Vital Signs, click to edit/add: Last Vital Signs Temp 97.8 F 04/05/23 22:24 Pulse 105 H 04/05/23 23:12 Resp 19 04/05/23 22:24 BP 145/96 H 04/05/23 22:24 Pulse Ox 95 04/05/23 23:12 O2 Del Method Room Air 04/05/23 22:24 Course Vital Signs Vital signs: Vital Signs Pulse Rate 113 H 04/05/23 18:24 Respiratory Rate 16 04/05/23 18:24 Pulse Oximetry 96 04/05/23 18:24 Temperature 97.8 F 04/05/23 22:24 Pulse Rate 105 H 04/05/23 23:12 Respiratory Rate 19 04/05/23 22:24 Blood Pressure 145/96 H 04/05/23 22:24 Pulse Oximetry 95 04/05/23 23:12 Oxygen Delivery Method Room Air 04/05/23 22:24 MDM - Chest Pain MDM Narrative Medical decision making narrative: patient was treated with a gastrointestinal cocktail and fluids. Lab studies including troponin are within normal limits. Patient remain mildly tachycardic so she was sent for CT angiogram of the chest which shows a groundglass appearance of the lung, possibly representing a viral pneumonia. Patient has no leukocytosis or bandemia and no complaints of cough or congestion. Repeat troponin was obtained. Patient rested comfortably throughout her stay in the emergency department. Tachycardia improved and she has no hypoxia. We will admit for chest pain rule out pending repeat troponin to Dr. Doherty. Patient was accepted by Dr. otto for hospitalist service. Medical Records Data Attestation: I reviewed the patient's medical records. Lab Data Attestation: I reviewed the patient's lab results. Labs: Lab Results 04/05/23 04/05/23 Range/Units 18:40 20:25 WBC 5.9 (4.0-11.0) 10^3/uL RBC 4.25 (4.20-5.40) 10^6/uL Hgb 12.1 (12.0-16.0) g/dL Hct 38.1 (36.0-48.0) % MCV 89.6 (81.0-99.0) fL MCH 28.5 (26.7-34.0) pg MCHC 31.8 (29.9-35.2) g/dL RDW 15.0 (11.0-15.0) % Plt Count 360 (150-450) 10^3/uL MPV 8.8 L (9.5-13.5) fL Neut % (Auto) 67.6 (43.0-75.0) % Lymph % (Auto) 23.7 (20.5-60.0) % [place] % (Auto) 6.2 (1.7-12.0) % Eos % (Auto) 2.0 (0.9-7.0) % Baso % (Auto) 0.3 (0.2-2.0) % Neut # (Auto) 4.0 (1.4-6.5) 10^3/uL Lymph # (Auto) 1.4 (1.2-3.8) 10^3/uL [place] # (Auto) 0.4 (0.3-0.8) 10^3/uL Eos # (Auto) 0.1 (0.0-0.7) 10^3/uL Baso # (Auto) 0.0 (0.0-0.1) 10^3/uL Abs Immat Gran (auto) 0.01 (0.00-0.03) 10^3/uL Imm/Tot Granulo (auto) 0.2 (0.0-0.5) % PT 11.1 (9.0-11.6) sec INR 1.05 APTT 31.6 (22.3-36.2) sec Sodium 133 L (136-145) mmol/L Potassium 3.8 (3.5-5.1) mmol/L Chloride 98 (98-107) mmol/L Carbon Dioxide 27.0 (21.0-32.0) mmol/L Anion Gap 11.8 BUN 12.0 (7.0-18.0) mg/dL Creatinine 0.80 (0.55-1.02) mg/dL Est GFR ( Amer) >60 (>=60) Est GFR (Non-Af Amer) >60 (>=60) BUN/Creatinine Ratio 15.0 Glucose 111 H (74-106) mg/dL Calcium 9.1 (8.5-10.1) mg/dL Total Bilirubin 0.6 (0.2-1.0) mg/dL AST 20 (15-37) U/L ALT 17 (14-59) U/L Alkaline Phosphatase 121 H (46-116) U/L Troponin I High Sens 8.1 8.7 (4.0-51.3) pg/mL NT-Pro-B Natriuret Pep 232.0 (<=1800.0) pg/mL Total Protein 8.7 H (6.4-8.2) g/dL Albumin 3.2 L (3.4-5.0) g/dL Globulin 5.5 g/dL Albumin/Globulin Ratio 0.6 Lipase 81.0 H (16.0-77.0) U/L Imaging Data Chest x-ray: Attestation: I have reviewed the pertinent imaging results. Radiologist's impression: Procedure: XR chest 1V EXAM: XR chest 1V HISTORY: Shortness of breath COMPARISON: None. TECHNIQUE: Portable chest FINDINGS: IMPRESSION: Chronic changes of the lung parenchyma with no focal acute consolidation or infiltrate. No pneumothorax or pleural effusion. The heart is not enlarged. Prominence of the pulmonary artery and aorta on this study which is most likely positionally related. The osseous structures exhibit no gross visualized acute abnormality. Electronically authenticated by: SHANKAR ARIAS Date: 04/05/2023 19:17 CT scan - chest: Attestation: I have reviewed the pertinent imaging results. Radiologist's impression: Procedure: CT angio chest EXAM: CT CHEST WITH IV CONTRAST DATE OF EXAM: 04/05/2023 7:45 PM EDT HISTORY: Shortness of breath. Elevated D-dimer. PE COMPARISON: None. TECHNIQUE: Multiple axial images are taken from the level of the thyroid down through the upper abdomen with and without the use of IV contrast. Images are then reconstructed in the sagittal and coronal planes. This exam was performed according to our departmental dose-optimization program which includes use of Automated Exposure Control, adjustment of the mA and/or kV according to patient size and/or use of iterative reconstruction technique. Postprocessing was performed as per hospital protocol: Maximum intensity projection (MIPs) Contrast Used: 100 ml of Isovue FINDINGS: Director Of First Impressions: Unremarkable. Lines and Tubes: None. Lungs: Lungs demonstrate some groundglass subtle opacities within the lung parenchyma. Pleura: Normal Thyroid: Normal Aorta: Normal. Pulmonary artery: Pulmonary artery measures within normal. No pulmonary embolus allowing for bolus timing and mixing artifact Heart: Normal. Trachea/Bronchi: Well aerated. No intraluminal masses. Esophagus: Esophagus is within normal limits for the amount of distention. Lymph Nodes: Normal. Mediastinal: Normal. Hilar: Normal Axilla: Normal Chest wall: Normal. Osseous Structures: Normal for patient's age. Subdiaphragm: The subdiaphragmatic abdominal organs included in the [id number] do not demonstrate any acute abnormality. IMPRESSION: 1. Groundglass subtle opacities within the lung parenchyma. Please correlate for viral pneumonia. 2. No CT evidence for acute pulmonary embolus. Electronically authenticated by: LAVELLE MUKHERJEE Date: 04/05/2023 20:50 ECG Data Attestation: I personally reviewed and interpreted this ECG as follows: (sinus tachycardia at a rate of 110, nno acute ST elevation or ectopy. EKG reviewed by attending physician) Heart Score History: Moderately Suspicious ECG: Normal Age: >65 years Risk Factors: 1 or 2 Risk Factors Troponin: <Normal Limit Total Heart Score Recommendations & Risks:: 4 Discharge Plan Discharge Chief Complaint: Chest Pain Clinical Impression: Shortness of breath, Sinus tachycardia, Chest pain Patient Disposition: Admitted as Observation Time of Disposition Decision: 20:58 Condition: Good Discharge Date/Time: 04/05/23 22:02 Documented by User: Clay Otto MD 04/05/23 23:46 HPI - Chest Pain General Chief Complaint: Chest Pain Stated Complaint: Difficulty Breathing, Allergic Reaction-New Meds Time Seen by Provider: 04/05/23 18:26 Related Data Home Medications Medication Instructions Recorded Confirmed [place]-3 PO DAILY 01/04/23 aspirin 81 mg chewable tablet 1 tab PO DAILY 01/04/23 04/05/23 (Aspirin Childrens) atorvastatin 80 mg tablet 80 mg PO DAILY 01/04/23 04/05/23 cetirizine 10 mg tablet (24Hour 10 mg PO DAILY PRN allergy symptoms 01/04/23 04/05/23 Allergy) cholecalciferol (vitamin D3) 25 25 mcg PO DAILY 01/04/23 04/05/23 mcg (1,000 unit) capsule (Vitamin D3) melatonin 5 mg tablet 5 mg PO .HS PRN sleep 01/04/23 04/05/23 calcium citrate 200 mg (950 mg) 200 mg PO DAILY 04/05/23 04/05/23 tablet duloxetine 30 mg capsule,delayed 30 mg PO DAILY 04/05/23 04/05/23 release Previous Rx's Medication Instructions Recorded albuterol sulfate 90 mcg/actuation 2 puff inhalation Q4H PRN Dyspnea 01/07/23 aerosol inhaler #8.5 grams ferrous sulfate 325 mg (65 mg 325 mg PO QDAY #30 tabs 01/07/23 iron) tablet fluticasone propionate 50 1 spray intranasal QDAY #16 grams 01/07/23 mcg/actuation nasal spray,suspension Allergies Allergy/AdvReac Type Severity Reaction Status Date / Time No Known Drug Allergies Allergy Verified 01/04/23 06:20 [facility] Medical History Surgical History (Updated 01/04/23 @ 13:49 by Jillian Ford) H/O: hysterectomy ?Z90.710 - Acquired absence of both cervix and uterus (ICD-10) Social History (Updated 04/05/23 @ 23:15 by Tammi Braun) Smoking status: Never smoker Non-prescribed substance use: denies use Little interest or pleasure in doing things: not at all Feeling down, depressed, or hopeless: not at all Feel stressed/tense/nervous/anxious/difficulty sleeping: not at all Life stressors: unknown source of stress Exam Constitutional Vital Signs, click to edit/add: Last Vital Signs Temp 97.8 F 04/05/23 22:24 Pulse 105 H 04/05/23 23:12 Resp 19 04/05/23 22:24 BP 145/96 H 04/05/23 22:24 Pulse Ox 95 04/05/23 23:12 O2 Del Method Room Air 04/05/23 22:24 Course Vital Signs Vital signs: Vital Signs Pulse Rate 113 H 04/05/23 18:24 Respiratory Rate 16 04/05/23 18:24 Pulse Oximetry 96 04/05/23 18:24 Temperature 97.8 F 04/05/23 22:24 Pulse Rate 105 H 04/05/23 23:12 Respiratory Rate 19 04/05/23 22:24 Blood Pressure 145/96 H 04/05/23 22:24 Pulse Oximetry 95 04/05/23 23:12 Oxygen Delivery Method Room Air 04/05/23 22:24 MDM - Chest Pain Lab Data Labs: Lab Results 04/05/23 04/05/23 Range/Units 18:40 20:25 WBC 5.9 (4.0-11.0) 10^3/uL RBC 4.25 (4.20-5.40) 10^6/uL Hgb 12.1 (12.0-16.0) g/dL Hct 38.1 (36.0-48.0) % MCV 89.6 (81.0-99.0) fL MCH 28.5 (26.7-34.0) pg MCHC 31.8 (29.9-35.2) g/dL RDW 15.0 (11.0-15.0) % Plt Count 360 (150-450) 10^3/uL MPV 8.8 L (9.5-13.5) fL Neut % (Auto) 67.6 (43.0-75.0) % Lymph % (Auto) 23.7 (20.5-60.0) % [place] % (Auto) 6.2 (1.7-12.0) % Eos % (Auto) 2.0 (0.9-7.0) % Baso % (Auto) 0.3 (0.2-2.0) % Neut # (Auto) 4.0 (1.4-6.5) 10^3/uL Lymph # (Auto) 1.4 (1.2-3.8) 10^3/uL [place] # (Auto) 0.4 (0.3-0.8) 10^3/uL Eos # (Auto) 0.1 (0.0-0.7) 10^3/uL Baso # (Auto) 0.0 (0.0-0.1) 10^3/uL Abs Immat Gran (auto) 0.01 (0.00-0.03) 10^3/uL Imm/Tot Granulo (auto) 0.2 (0.0-0.5) % PT 11.1 (9.0-11.6) sec INR 1.05 APTT 31.6 (22.3-36.2) sec Sodium 133 L (136-145) mmol/L Potassium 3.8 (3.5-5.1) mmol/L Chloride 98 (98-107) mmol/L Carbon Dioxide 27.0 (21.0-32.0) mmol/L Anion Gap 11.8 BUN 12.0 (7.0-18.0) mg/dL Creatinine 0.80 (0.55-1.02) mg/dL Est GFR ( Amer) >60 (>=60) Est GFR (Non-Af Amer) >60 (>=60) BUN/Creatinine Ratio 15.0 Glucose 111 H (74-106) mg/dL Calcium 9.1 (8.5-10.1) mg/dL Total Bilirubin 0.6 (0.2-1.0) mg/dL AST 20 (15-37) U/L ALT 17 (14-59) U/L Alkaline Phosphatase 121 H (46-116) U/L Troponin I High Sens 8.1 8.7 (4.0-51.3) pg/mL NT-Pro-B Natriuret Pep 232.0 (<=1800.0) pg/mL Total Protein 8.7 H (6.4-8.2) g/dL Albumin 3.2 L (3.4-5.0) g/dL Globulin 5.5 g/dL Albumin/Globulin Ratio 0.6 Lipase 81.0 H (16.0-77.0) U/L Heart Score Total Heart Score Recommendations & Risks:: 4 Discharge Plan Discharge Chief Complaint: Chest Pain Clinical Impression: Shortness of breath, Sinus tachycardia, Chest pain Patient Disposition: Admitted as Observation Time of Disposition Decision: 20:58 Condition: Good Discharge Date/Time: 04/05/23 22:02
[2023-04-05] MEDS: lidocaine HCL 15 ML, MAG HYDROX/ALUMINUM HYD/SIMETH 30 ML, HYOSCYAMINE SULFATE 0.25 MG PO (18:41)
[2023-04-05 19:13] LABS: INR 1.05; Partial Thromboplastin Time 31.6 sec (22.3-36.2); Prothrombin Time 11.1 sec (9.0-11.6)
[2023-04-05 19:15] LABS: Basophils Percent Auto 0.3 % (0.2-2.0); Eosinophils Absolute Auto 0.1 10^3/uL (0.0-0.7); Hematocrit 38.1 % (36.0-48.0); Hemoglobin 12.1 g/dL (12.0-16.0); Immature Granulocytes Abs Auto 0.01 10^3/uL (0.00-0.03); Immature Granulocytes Pct Auto 0.2 % (0.0-0.5); Lymphocytes Absolute Auto 1.4 10^3/uL (1.2-3.8); Lymphocytes Percent Auto 23.7 % (20.5-60.0); Mean Corpuscular HGB Conc 31.8 g/dL (29.9-35.2); Mean Corpuscular Hemoglobin 28.5 pg (26.7-34.0); Mean Corpuscular Volume 89.6 fL (81.0-99.0); Mean Platelet Volume 8.8 fL (9.5-13.5); Monocytes Absolute Auto 0.4 10^3/uL (0.3-0.8); Monocytes Percent Auto 6.2 % (1.7-12.0); Neutrophils Percent Auto 67.6 % (43.0-75.0); Platelet Count 360 10^3/uL (150-450); Red Blood Count 4.25 10^6/uL (4.20-5.40); White Blood Count 5.9 10^3/uL (4.0-11.0)
[2023-04-05 19:17] LABS: Alanine Aminotransferase 17 U/L (14-59); Albumin Globulin Ratio 0.6; Albumin Level 3.2 g/dL (3.4-5.0); Alkaline Phosphatase 121 U/L (46-116); Anion Gap 11.8; Aspartate Amino Transferase 20 U/L (15-37); Bilirubin Total 0.6 mg/dL (0.2-1.0); Calcium 9.1 mg/dL (8.5-10.1); Chloride 98 mmol/L (98-107); Estimated GFR (African America >60 (>=60); Estimated GFR (Non-African Ame >60 (>=60); Globulin 5.5 g/dL; Glucose 111 mg/dL (74-106); Potassium 3.8 mmol/L (3.5-5.1); Sodium 133 mmol/L (136-145); Total Protein 8.7 g/dL (6.4-8.2)
--- NOTE | 2023-04-05 19:21 | CT_ITS ---
The [address] [address] Patient Name: SABI SANTAMARIA MRN: [id number] date: 1945 Sex: F Assigned Patient Location: ER Current Patient Location: ER Accession/Order Number: [id number] Exam Date: 04/05/2023 19:45 Report Date: 04/05/2023 20:50 At the request of: YADIRA LUA Procedure: CT angio chest EXAM: CT CHEST WITH IV CONTRAST DATE OF EXAM: 04/05/2023 7:45 PM EDT HISTORY: Shortness of breath. Elevated D-dimer. PE COMPARISON: None. TECHNIQUE: Multiple axial images are taken from the level of the thyroid down through the upper abdomen with and without the use of IV contrast. Images are then reconstructed in the sagittal and coronal planes. This exam was performed according to our departmental dose-optimization program which includes use of Automated Exposure Control, adjustment of the mA and/or kV according to patient size and/or use of iterative reconstruction technique. Postprocessing was performed as per hospital protocol: Maximum intensity projection (MIPs) Contrast Used: 100 ml of Isovue FINDINGS: Hockey Scout: Unremarkable. Lines and Tubes: None. Lungs: Lungs demonstrate some groundglass subtle opacities within the lung parenchyma. Pleura: Normal Thyroid: Normal Aorta: Normal. Pulmonary artery: Pulmonary artery measures within normal. No pulmonary embolus allowing for bolus timing and mixing artifact Heart: Normal. Trachea/Bronchi: Well aerated. No intraluminal masses. Esophagus: Esophagus is within normal limits for the amount of distention. Lymph Nodes: Normal. Mediastinal: Normal. Hilar: Normal Axilla: Normal Chest wall: Normal. Osseous Structures: Normal for patient's age. Subdiaphragm: The subdiaphragmatic abdominal organs included in the [id number] do not demonstrate any acute abnormality. CT/CT angio chest IMPRESSION: 1. Groundglass subtle opacities within the lung parenchyma. Please correlate for viral pneumonia. 2. No CT evidence for acute pulmonary embolus. Electronically authenticated by: LAVELLE MUKHERJEE Date: 04/05/2023 20:50
[2023-04-05 19:24] LABS: Troponin I High Sensitivity 8.1 pg/mL (4.0-51.3)
[2023-04-05] MEDS: 0.9 % SODIUM CHLORIDE 1,000 ML 1000 ML IV (19:50)
[2023-04-05 21:07] LABS: Troponin I High Sensitivity 8.7 pg/mL (4.0-51.3)
--- NOTE | 2023-04-05 23:36 | CA_ITS ---
Patient: SABI SANTAMARIA Exam Date: 04/06/2023 : 1945 Gender:F Ordering : DR Willi Doherty . Admission #: [id number] Family : Order #: [id number] CLICK HERE TO VIEW EXAM ECHOCARDIOGRAM REPORT PROCEDURE: CA ECHO LIMITED INDICATIONS: chest pain, COPD, hypertension COMPARISON: None. DESCRIPTION: Limited ECHOCARDIOGRAM Real-time transthoracic echocardiography with 2D and M-mode performed. QUALITY: Limited echocardiogram per physician order. LEFT VENTRICLE: Normal chamber size. Normal left ventricular wall thickness. Normal systolic function. LV EF: Normal left ventricular ejection fraction, (>55%). DIASTOLIC: ATRIAL SEPTUM: LEFT ATRIUM: Normal chamber size. RIGHT ATRIUM: Normal chamber size. RIGHT VENTRICLE: Normal chamber size. Normal systolic function. TRICUSPID VALVE: Normal mobility and thickness. MITRAL VALVE: Mildly thickened with normal mobility. Moderate mitral annular calcification. AORTIC VALVE: Normal trileaflet appearance. Mildly calcified aortic valve. Mildly diminished mobility. No significant aortic valve stenosis by 2D criteria. AORTIC ROOT: Normal diameter and appearance. PULMONIC VALVE: Normal thickness and mobility. PERICARDIUM: No evidence of pericardial effusion. IVC: Collapses with inspirations. PLEURA: CONCLUSION: 1. Normal ventricular systolic function. LVEF is 55 to 60%. 2. No evidence of significant aortic valve stenosis. 3. No pericardial effusion. 4. Limited study performed with no Doppler interrogation as requested. Adult Echocardiography Procedure Report Left Ventricle LVEDD (3.7 - 5.6 cm): 3.70 cm LVESD (2.2 - 4.0 cm): 2.72 cm LVIVS thickness (0.6 - 1.2 cm): 1.02 cm LVPW thickness (0.5 - 1.0 cm): 0.91 cm LVOT Diameter 2.05 cm Left Atrium Left Atrium Systolic Dimension: 3.79 cm Mitral Valve Right Ventricle Aorta AO Root Diam: 2.96 cm Ascending Ao Diam: 2.68 cm Aortic Valve Tricuspid Valve Pulmonic Valve Peak Velocity: 0.94 m/s Peak Gradient: 4.03 mm[Hg], 3.13 mm[Hg] Right Atrium Dictated by: Norman Cain M.D. on 04/06/2023 at 17:23 Approved by: Norman Cain M.D. on 04/06/2023 at 17:25
--- NOTE | 2023-04-05 23:47 | P.PN_ITS ---
Progress Note: Subjective Subjective Interval history: CC: Chest pain HPI: This is a 78 years old Citizen Of [place] speaking female who brought to emergency room by her family for evaluation of chest tightness and shortness of breath. According to the patient discomfort started about an hour prior to admission to emergency room. Patient stating that she has been preparing meals at that time. She felt some discomfort in her chest when she been testing here for. On further questioning patient admits that it was rather coughing spell and shortness of breath that caused your discomfort. Patient stating that she has been compliant with her medications. Patient's past medical history significant for COPD, history of previous stroke. She recently been started on Cymbalta. Evaluation in the emergency room has been unremarkable in terms of signs of acute coronary event (troponins flat x2 and electrocardiogram with no signs of ischemia) Exam Narrative Exam Narrative: ROS: 1.General: no fever, chills, not in distress 2.HEENT: no SCHROEDER, no blurry vision, no swallow problems, no nasal congestion, no sore throat 3.Pulmonary: See above 4.CVS: See above 5.GI: no nausea, vomiting or diarrhea, no abdominal pain, no constipation, no hematemesis or hematochezia 6.: no renal colic, no hematuria, urinary frequency or urgency 7.Extremities: no edema 8.Neurological: no dizziness, vertigo, double or blurry vision, no no focal weakness, no paresthesia, no swallow or speech problems 9.Musculosceletal: no joint pains, no joint swelling, no back pain 10.Dermatological: no skin rashes, no lesions, no pruritus 11.Hematological: no bleeding, no hx/o clots 12.Endocrinological: no heat/cold intolerance, no hx/o diabetes 13.Psychiatric: no suicidal or homicidal thoughts Physical Exam: Not in distress, pleasant, lucid, cooperative, Head - atraumatic, eyes - pupils equal, round, reactive to light, extra ocular movement intact, MMM Neck - supple, thyroid not enlarged, LN not palpated Lungs -coarse breath sounds bilaterally, wheezing CVS - heart sounds S1, S2, no additional murmurs gallop, regular rate and rhythm Gastrointestinal?abdomen is soft, non-tender, non-distended, no organomegaly, positive bowel sounds Extremities no clubbing, cyanosis or edema Neurological?cranial nerve II?XII grossly intact, no meningeal signs, no cerebellar signs, no sensory deficit Musculoskeletal - joints, no effusions, ROM preserved Dermatological - the skin dry, warm, no rashes Psychiatric?patient is AAO X3, patient has normal affect Constitutional Vital Signs, click to edit/add: Last Vital Signs Temp 97.8 F 04/05/23 22:24 Pulse 105 H 04/05/23 23:12 Resp 19 04/05/23 22:24 BP 145/96 H 04/05/23 22:24 Pulse Ox 95 04/05/23 23:12 O2 Del Method Room Air 04/05/23 22:24 Progress Note: Objective Labs Labs: Short CBC 04/05/23 Range/Units 18:40 WBC 5.9 (4.0-11.0) 10^3/uL Hgb 12.1 (12.0-16.0) g/dL Hct 38.1 (36.0-48.0) % Plt Count 360 (150-450) 10^3/uL BMP 04/05/23 18:40 Sodium 133 L Potassium 3.8 Chloride 98 Carbon Dioxide 27.0 BUN 12.0 Creatinine 0.80 Glucose 111 H Calcium 9.1 Liver Function 04/05/23 Range/Units 18:40 Total Bilirubin 0.6 (0.2-1.0) mg/dL AST 20 (15-37) U/L ALT 17 (14-59) U/L Alkaline Phosphatase 121 H (46-116) U/L Albumin 3.2 L (3.4-5.0) g/dL Progress Note: A&P Assessment and Plan (1) Chest pain: Assessment and Plan: Chest discomfort in a patient with multiple risk factors for CAD - patient's condition is guarded and requires close monitoring on telemetry floor - continue to trend [place] to r/u possibility of acute coronary event - will make sure that patient is on at least moderate potency dose of Atorvastatin, full dose of EC ASA (for now), BBs and ACEI if not contraindicated - will order an ECHO to look for wall motion abnormalities and evaluate valvular structures - Consider consult Thread Spinner or a stress test in the morning (2) COPD (chronic obstructive pulmonary disease): Assessment and Plan: COPD exacerbation with - inhaled and systemic steroids - inhaled bronchodilators - will order sputum Cx and Gramm stain - empiric, broad spectrum ABxs - F/U Cxs - tailor ABxs accordingly (3) Esophageal spasm: Assessment and Plan: Could be a potential cause of patient's current presentation. Currently pain- free. Continue with PPIs (4) Hypertension: Assessment and Plan: Blood pressure appears to be reasonably well controlled. Resume home regimen. Adjust as needed Plan As the provider for the telehealth service, I attest that I introduced myself to the patient, provided my credentials, disclosed by location and determined that based on a review of the patient's chart and discussion with members of the patient's treatment team, telemedicine via real-time, 2 way, and interactive audio and video platform is an appropriate and effective means of providing the service. ?The patient and I mutually agree this visit is appropriate for telemedicine. ?[place] ?The encounter took approximately 35 minutes. ?The nurse was present during the entire time and I was able to move the stethoscope in appropriate directions. ?The patient was evaluated at the Hospital ? Portions of this note may be dictated using [employer] voice recognition software. Variances in spelling and vocabulary are possible and unintentional. Not all errors may be caught and/or corrected. Please notify the author if any discrepan cies are noted and/or if the meaning of any statement is unclear.? ? Patient verbally consented for treatment via video visit with patient currently located at the [facility] and provider located in [place]. Telemedicine Attestation Telemedicine Attestation I conducted this encounter from [[place]] via secure live, [id number] video conference with the patient, located at [facility] with [chest pain]. Prior to the interview, the risks and benefits of telemedicine were discussed with the patient and verbal consent was obtained.
[2023-04-06] VITALS (20 sets, daily range): BP systolic 122–149; BP diastolic 72–95; PULSE 72–98; RESP 16–20; TEMP 36.6–36.9; O2SAT 94–99
[2023-04-06] MEDS: ATORVASTATIN CALCIUM 40 MG TABLET 80 MG PO (00:42)
[2023-04-06] MEDS: CEFTRIAXONE 1,000 MG in 0.9 % SODIUM CHLORIDE 50 ML 100 MG IV (00:43)
[2023-04-06] MEDS: AZITHROMYCIN 500 MG in 0.9 % SODIUM CHLORIDE 250 ML 250 MG IV (00:49)
[2023-04-06 03:56] LABS: Basophils Percent Auto 0.5 % (0.2-2.0); Eosinophils Absolute Auto 0.2 10^3/uL (0.0-0.7); Eosinophils Percent Auto 3.7 % (0.9-7.0); Hematocrit 33.9 % (36.0-48.0); Hemoglobin 11.2 g/dL (12.0-16.0); Immature Granulocytes Abs Auto 0.01 10^3/uL (0.00-0.03); Immature Granulocytes Pct Auto 0.2 % (0.0-0.5); Lymphocytes Absolute Auto 1.4 10^3/uL (1.2-3.8); Lymphocytes Percent Auto 23.1 % (20.5-60.0); Mean Corpuscular Hemoglobin 29.1 pg (26.7-34.0); Mean Corpuscular Volume 88.1 fL (81.0-99.0); Mean Platelet Volume 8.7 fL (9.5-13.5); Monocytes Absolute Auto 0.5 10^3/uL (0.3-0.8); Monocytes Percent Auto 8.2 % (1.7-12.0); Neutrophils Absolute Auto 3.9 10^3/uL (1.4-6.5); Neutrophils Percent Auto 64.3 % (43.0-75.0); Platelet Count 319 10^3/uL (150-450); Red Blood Count 3.85 10^6/uL (4.20-5.40); Red Cell Distribution Width 14.8 % (11.0-15.0)
[2023-04-06] MEDS: IPRATROPIUM/ALBUTEROL SULFATE 3 ML AMPUL.NEB IH ×3 (04:07→16:06)
[2023-04-06 04:08] LABS: Anion Gap 10.3; BUN Creatinine Ratio 19.1; Calcium 8.5 mg/dL (8.5-10.1); Carbon Dioxide 27.2 mmol/L (21.0-32.0); Chloride 102 mmol/L (98-107); Estimated GFR (African America >60 (>=60); Estimated GFR (Non-African Ame >60 (>=60); Glucose 86 mg/dL (74-106); Potassium 3.5 mmol/L (3.5-5.1); Sodium 136 mmol/L (136-145)
[2023-04-06 04:16] LABS: Chol HDL Ratio 2.2; Cholesterol 103 mg/dL (<=200); HDL Cholesterol 47 mg/dL (40-60); LDL Cholesterol Calculated 49.4 mg/dL; Triglycerides 33 mg/dL (<=150); VLDL CHOLESTEROL 6.6 mg/dL
[2023-04-06 04:19] LABS: Troponin I High Sensitivity 12.7 pg/mL (4.0-51.3)
--- NOTE | 2023-04-06 07:52 | P.HP_ITS ---
H&P: HPI History of Present Illness Chief complaint: Difficulty Breathing,Allergic Reaction,Chest Pain Narrative: Patient at home with increasing cough and shortness of breath. In ER found to have possible exacerbation of COPD. She also described chest pain. Cardiac markers were done which were negative. Patient paced in the ICU overnight. 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) Social History (Updated 04/05/23 @ 23:15 by Tammi Braun) Smoking status: Never smoker Non-prescribed substance use: denies use Little interest or pleasure in doing things: not at all Feeling down, depressed, or hopeless: not at all Feel stressed/tense/nervous/anxious/difficulty sleeping: not at all Life stressors: unknown source of stress Meds Home Medications and Allergies Home Medications Medication Instructions Recorded Confirmed Type [place]-3 PO DAILY 01/04/23 History aspirin 81 mg chewable tablet 1 tab PO DAILY 01/04/23 04/05/23 History (Aspirin Childrens) atorvastatin 80 mg tablet 80 mg PO DAILY 01/04/23 04/05/23 History cetirizine 10 mg tablet (24Hour 10 mg PO DAILY PRN allergy symptoms 01/04/23 04/05/23 History Allergy) cholecalciferol (vitamin D3) 25 25 mcg PO DAILY 01/04/23 04/05/23 History mcg (1,000 unit) capsule (Vitamin D3) melatonin 5 mg tablet 5 mg PO .HS PRN sleep 01/04/23 04/05/23 History albuterol sulfate 90 mcg/actuation 2 puff inhalation Q4H PRN Dyspnea 01/07/23 04/05/23 Rx aerosol inhaler #8.5 grams ferrous sulfate 325 mg (65 mg 325 mg PO QDAY #30 tabs 01/07/23 04/05/23 Rx iron) tablet fluticasone propionate 50 1 spray intranasal QDAY #16 grams 01/07/23 04/05/23 Rx mcg/actuation nasal spray,suspension calcium citrate 200 mg (950 mg) 200 mg PO DAILY 04/05/23 04/05/23 History tablet duloxetine 30 mg capsule,delayed 30 mg PO DAILY 04/05/23 04/05/23 History release cefdinir 300 mg capsule 300 mg PO Q12H 10 days #20 caps 04/06/23 Rx Allergies Allergy/AdvReac Type Severity Reaction Status Date / Time No Known Drug Allergies Allergy Verified 01/04/23 06:20 Exam Constitutional Vital Signs, click to edit/add: Last Vital Signs Temp 98.1 F 04/06/23 07:50 Pulse 84 04/06/23 07:50 Resp 18 04/06/23 07:50 BP 137/79 04/06/23 07:50 Pulse Ox 97 04/06/23 07:50 O2 Del Method Room Air 04/06/23 07:50 Documenting provider has reviewed patient's vital signs: yes Common normals: no apparent distress Chest Common normals: inspection of chest normal Respiratory Auscultation: rhonchi (Much improved) Cardio Common normals: regular rate, regular rhythm and no murmurs GI Common normals: Normal to inspection, nondistended, normoactive bowel sounds present Extremity Common normals: normal to inspection (No peripheral edema) Results Labs Labs: Short CBC 04/05/23 04/06/23 Range/Units 18:40 03:39 WBC 5.9 6.0 (4.0-11.0) 10^3/uL Hgb 12.1 11.2 L (12.0-16.0) g/dL Hct 38.1 33.9 L (36.0-48.0) % Plt Count 360 319 (150-450) 10^3/uL BMP 04/05/23 04/06/23 18:40 03:39 Sodium 133 L 136 Potassium 3.8 3.5 Chloride 98 102 Carbon Dioxide 27.0 27.2 BUN 12.0 13.0 Creatinine 0.80 0.68 Glucose 111 H 86 Calcium 9.1 8.5 Liver Function 04/05/23 Range/Units 18:40 Total Bilirubin 0.6 (0.2-1.0) mg/dL AST 20 (15-37) U/L ALT 17 (14-59) U/L Alkaline Phosphatase 121 H (46-116) U/L Albumin 3.2 L (3.4-5.0) g/dL Assessment and Plan Assessment and Plan (1) Chest pain: (2) COPD (chronic obstructive pulmonary disease): (3) Esophageal spasm: (4) Hypertension: Plan Chest pain-cardiac etiology ruled out Acute exacerbation of COPD-on aerosol treatments and antibiotics Acute UTI-culture pending patient is improved this afternoon. Should be discharged home in improving condition. Medications see list. Follow-up with me in the office next week as needed. Hypertension stable
[2023-04-06 08:52] LABS: SARS-CoV-2 Ag NEGATIVE (NEGATIVE)
[2023-04-06] MEDS: CALCIUM CARBONATE 600 MG TABLET 1200 MG PO (08:58)
[2023-04-06] MEDS: FLUTICASONE PROPIONATE 50 MCG NASAL SPRAY 1 SPRAY NS (08:58)
[2023-04-06] MEDS: DULOXETINE HCL 30 MG CAPSULE.DR PO (08:59)
[2023-04-06] MEDS: CHOLECALCIFEROL (VITAMIN D3) 25 MCG/1,000 UNITS TABLET PO (08:59)
[2023-04-06] MEDS: FERROUS SULFATE 325 MG TABLET PO (08:59)
[2023-04-06] MEDS: ASPIRIN 81 MG TAB.CHEW PO (08:59)
[2023-04-06] MEDS: DOCUSATE SODIUM 100 MG CAPSULE PO (08:59)
[2023-04-06] MEDS: BUDESONIDE 0.5 MG/2 ML AMPULE NEB IH (11:11)
[2023-04-06] MEDS: DEXAMETHASONE SOD PHOS 20 MG/5 ML VIAL 4 MG IV (11:51)
--- NOTE | 2023-04-06 12:07 | CM.NOTE ---
Medicare Outpatient Observation Notice discussed with pt, pt verbalizes understanding and signs paper. Original given to pt and copy placed on pt's chart.
--- NOTE | 2023-04-06 12:13 | SWNOTE1 ---
SW called and left message for daughter to inquire about home setting, left message, waiting for call back.
--- NOTE | 2023-04-06 12:45 | SWNOTE1 ---
SW called pt's daughter as pt does not speak [place] too well. Pt lives at home alone, her children live close by and help as needed. Pt does use a walker at home. Pt does currently have [facility], therapy and an aide coming in to assist with bathing. Pt's daughter has no concerns about her going home at this time. SW to follow as needed. Pt's daughter is going to call nurse for medical update.
[2023-04-06 15:22] LABS: Bilirubin Urine NEGATIVE (NEGATIVE); Blood Urine NEGATIVE (NEGATIVE); Clarity Urine CLEAR (CLEAR); Color Urine LT. YELLOW (YELLOW); Glucose Urine UA NEGATIVE (NEGATIVE); Ketones Urine NEGATIVE (NEGATIVE); Leukocyte Esterase Urine MODERATE (NEGATIVE); Nitrite Urine POSITIVE (NEGATIVE); Protein Urine NEGATIVE (NEG/TRACE); Urobilinogen Urine 0.2 EU/dL (0.2-1.0)
[2023-04-06 15:38] LABS: Bacteria Urine MODERATE #/HPF (NONE SEEN); Cast Seen? NONE SEEN #/LPF (NONE SEEN); Crystals Seen? None Seen #/HPF (None Seen); Mucus Urine NONE SEEN (NONE SEEN); RBC Urine NONE SEEN #/HPF (0-2); Squamous Epithelial Cell Urine FEW #/LPF (NONE/RARE); WBC Urine 20-50 #/HPF (NONE SEEN)
--- NOTE | 2023-04-06 18:17 | PC.NURSE ---
Patient given envelope that was in safe that contained money. Patient wishes not to count the money. Daughter at bedside for translation. Envelope containing money given to patient.
[2023-04-07 15:40] LABS: SARS-CoV-2 NAA NOT DETECTED (NOT DETECTE)
--- NOTE | 2023-04-09 14:24 | CM.DCFOLLOWU ---
Pt answer but states she doesn't speak [place] and hung up telephone
== END 2023-04-06 18:34 | disposition home health service (06) ==
LOC: ER 20:59 → ICU 22:22
PROVIDERS: Physician Assistant; Admitting Provider Internal Medicine; Emergency Provider Emergency Medicine; PCP Family Medicine; Visit Provider Family Medicine
DX: R07.9 Chest pain, unspecified (principal); J44.1 Chronic obstructive pulmonary disease with (acute) exacerbation; N39.0 Urinary tract infection, site not specified; I10 Essential (primary) hypertension; K22.4 Dyskinesia of esophagus; R00.0 Tachycardia, unspecified; R06.02 Shortness of breath; Z79.82 Long term (current) use of aspirin; Z79.899 Other long term (current) drug therapy; Z90.710 Acquired absence of both cervix and uterus; Z86.73 Personal history of transient ischemic attack (TIA), and cerebral infarction without residual deficits; B96.20 Unspecified Escherichia coli [E. coli] as the cause of diseases classified elsewhere
CPT/HCPCS: 36415; 51701; 71045; 71275; 80048; 80053; 80061; 81001; 83690; 83880; 84484; 85025; 85610; 85730; 87070; 87086; 87106; 87150; 87186; 87205; 87635; 87811; 93005; 93308; 94640; 94761; 96365; 96366; 96368; 96375; 99285; G0378; J0456; Q3014; Q9967

== ENCOUNTER 2024-07-08 13:10 | Observation (INO) | payer MEDICARE, OTHER, SELFPAY ==
[2024-07-08] VITALS (20 sets, daily range): BP systolic 103–142; BP diastolic 62–89; PULSE 74–108; TEMP 36.7–36.9; O2SAT 93–97; BMI 25.4; BMI 24.9
--- OUTSIDE RECORDS SUMMARY | 2024-07-08 13:21 | XMS_ITS | CCD ---
Author Organization [facility] Care Team Providers Care Pediatric Speech Language Pathologist Name Role Phone Getachew Escalante Unavailable OBINNA GARRETT Referring Unavailable MERRILL DOHERTY Primary Care Unavailable MINESH DALY Attending Unavailable MINESH DALY Admitting Unavailable MD Merrill Doherty Primary Care Provider [phone] MD Bonnie Hendricks Attending Provider MD Merrill Doherty Primary Care Provider [phone] MD Bonnie Hendricks Attending Provider DR OBINNA MARSHALL Attending Unavailable ISI, DR DION Tinoco Consulting Unavailable HAY ., DR YEBOAH Admitting Unavailable HOY ., DR MOMIN Primary Care Unavailable HAY ., DR YEBOAH Consulting Unavailable HOY ., DR MOMIN Attending Unavailable HOY ., DR MOMIN Consulting Unavailable HOY ., DR MOMIN Primary Care Unavailable HOY ., DR MOMIN Admitting Unavailable NADERER, DR EARL Greco Consulting Unavailable ALMA COOPER Consulting Unavailable TARAS FREIRE Consulting Unavailable SAUNDRA LAGUERRE Consulting Unavailable HOY ., DR MOMIN Consulting Unavailable HOY ., DR MOMIN Primary Care Unavailable HOY ., DR MOMIN Admitting Unavailable HOY ., DR MOMIN Attending Unavailable ISI, DR DION Tin[employer] Consulting Unavailable YADIRA LUA Consulting Unavailable KAYLEY PHELAN Consulting Unavailable ROBINSON LOPES Attending Unavailable COCO Pichardo, ROBINSON Consulting Unavailable LADI Pichardo, DR MOMIN Primary Care Unavailable ROBINSON LOPES Admitting Unavailable MD Merrill Doherty Primary Care Provider [phone] MD Bonnie Hendricks Attending Provider [phone] MD Merrill Doherty Primary Care Provider [phone] MD Bonnie Hendricks Attending Provider MD Merrill Doherty Primary Care Provider [phone] MD Bonnie Hendricks Attending Provider Merrill Doherty Primary Care Unavailable Bonnie Hendricks Attending Unavailable Bonnie Hendricks Admitting Unavailable DEBRA WALTERS Attending Unavailable DEBRA WALTERS Referring Unavailable DEBRA WALTERS Attending Unavailable Unavailable Primary Care Provider Unavailabl e Medications Current Medications Medication Drug Class(es) Dates Sig (Normalized) Sig (Original) acetaminophen 500 mg oral tablet (13 sources) Start: 05-23-2021 take 500 mg by mouth every eight hours Acetaminophen Active 500 MG PO Q8H 0 May 23, 2021 1:00am Start: 04-23-2021 End: 05-23-2021 take 1000 mg by mouth every eight hours Acetaminophen Discontinued 1000 MG PO Q8H 0 April 23, 2021 12:00am May 23, 2021 3:52pm take 1 capsule by mo uth every six hours Acetaminophen 500 MG 1 capsule as needed Orally every 6 hrs Active aspirin 81 mg chewable tablet (19 sources) Platelet Aggregation Inhibitor, Nonsteroidal Anti-inflammatory Drug Start: 05-23-2021 take 1 tablet by mouth twice daily Aspirin (Children's Aspirin) 81 mg Tablet,Chewable Active 81 MG PO Twice daily 0 May 23, 2021 1:00am Start: 04-23-2021 End: 05-23-2021 take 1 tablet by mouth once daily Aspirin (Children's Aspirin) 81 mg Tablet,Chewable Discontinued 81 MG PO Daily 0 April 23, 2021 12:00am May 23, 2021 3:52pm take 81 mg by mouth once daily ASPIRIN 81 PO Take 81 mg by mouth Daily Active ASPIRIN 81 PO As pir-81 Active atorvastatin 80 mg oral tablet (14 sources) HMG-CoA Reductase Inhibitor Start: 12-13-2023 take 80 mg by mouth once daily at bedtime Atorvastatin Active 80 MG PO Daily at bedtime December 13, 2023 12:00am Start: 04-23-2021 End: 12-14-2022 take 80 mg by mouth once daily in the evening Atorvastatin Discontinued 80 MG PO Every evening 0 April 23, 2021 12:00am December 14, 2022 3:26pm carvedilol 6.25 mg oral tablet (17 sources) alpha-Adrenergic Bryan, beta-Adrenergic Bryan Start: 12-13-2023 take 6.25 mg by mouth twice daily Carvedilol Active 6.25 MG PO Twice daily December 13, 2023 12:00am Start: 09-17-2023 take 1 tablet by esteban th every twelve hours Coreg 6.25 MG tablet Take 6.25 mg by mouth every 12 (twelve) hours 09/17/2023 Active Start: 12-14-2022 End: 06-14-2023 take 25 mg by mouth twice daily at mealtime Carvedilol Discontinued 25 MG PO Twice daily with meals December 14, 2022 3:26pm June 14, 2023 4:01pm Start: 05-23-2021 End: 12-14-2022 take 6.25 mg by mouth twice daily at mealtime Carvedilol Discontinued 6.25 MG PO Twice daily with meals 0 May 23, 2021 1:00am December 14, 2022 3:26pm take 1 tablet by esteban th every twelve hours Carvedilol 12.5 MG 1 tablet with food Orally Twice a day Active Centrum MultiGummies - (3 sources) Centrum MultiGum mies - as directed Orally Active hydroCHLOROthiazide 25 mg oral tablet (3 sources) Thiazide Diuretic take 1 tablet by mouth every twenty-four hours hydroCHLOROthiazide 25 MG 1 tablet in the morning Orally Once a day for 30 day(s) Active meclizine hydrochloride 25 mg oral tablet (3 sources) Antiemetic take 1 tablet by mouth every twenty-four hours Meclizine HCl 25 MG 1 tablet as needed Orally Once a day Active melatonin 5 mg oral tablet (10 sources) Start: 2020 take 10 mg by mouth once daily Melatonin Active 10 MG PO DAILY 0 May 23, 2021 1:00am take 1 tablet by mouth at bedtim e melatonin 5 MG tablet Take 5 mg by mouth at bedtime Active Multiple Vitamins-Minerals (Centrum Silver Women 50+) tablet (5 sources) take 1 tablet by mouth once daily Multiple Vitamins-Minerals (Centrum Silver Women 50+) tablet Take 1 tablet by mouth Daily Active Multivitamin (Multiple Vitamin) Tablet (5 sources) Start: 06-14-2021 take 1 tablet by mouth once daily Multivitamin (Multiple Vitamin) Tablet Active 1 TAB PO Daily June 14, 2021 12:00am Start: 06-14-2021 take 1 tablet by esteban th once daily Multivitamin (Multiple Vitamin) Tablet Active 1 TAB PO Daily June 14, 2021 1:00am Completed/Discontinued Medications Medication Drug Class(es) Dates Sig (Normalized) Sig (Original) acetaminophen 325 mg / oxyCODONE hydrochloride 5 mg oral tablet (3 sources) Opioid Agonist Start: 02-10-2019 take 1 tablet by mouth every four to six hours as needed for pain Percocet 5-325 MG 1 tablet as needed Orally every 4-6 hrs prn pain for 10 days Jan, Not-Taking Aspir-81 (3 sources) Aspir-81 *please review for potential _update for e-prescription and drug interaction check* Not-Taking bisacodyl 10 mg rectal suppository (5 sources) Stimulant Laxative Start: 05-23-2021 End: 12-14-2022 Bisacodyl Discontinued 10 MG DE Daily 0 May 23, 2021 1:00am December 14, 2022 3:26pm busPIRone hydrochloride 5 mg oral tablet (8 sources) Start: 04-28-2021 End: 01-13-2022 take 5 mg by mouth twice daily Buspirone Discontinued 5 MG PO Twice daily 0 April 28, 2021 1:00am January 13, 2022 2:20pm calcium lactate 100 mg oral capsule (8 sources) Start: 06-14-2021 End: 06-14-2023 take 100 mg by mouth twice daily Calcium Lactate Discontinued 100 MG PO Twice daily June 14, 2021 1:00am June 14, 2023 4:01pm Calcium Lactate Active cetirizine hydrochloride 10 mg oral tablet (8 sources) Histamine-1 Receptor Antagonist Start: 04-20-2021 End: 12-14-2022 take 1 tablet by mouth once daily Cetirizine (Zyrtec) 10 mg tablet Discontinued 10 MG PO Daily April 20, 2021 12:00am December 14, 2022 3:26pm chlorthalidone 25 mg oral tablet (5 sources) Thiazide-like Diuretic Start: 04-23-2021 End: 05-23-2021 take 25 mg by mouth once daily Chlorthalidone Discontinued 25 MG PO Daily April 23, 2021 12:00am May 23, 2021 3:52pm Ciprofloxacin (3 sources) Quinolone Antimicrobial Ciprofloxacin HCl *please review for potential _update for e-prescription and drug interaction check* Not-Taking diclofenac sodium 75 mg delayed release oral tablet (8 sources) Nonsteroidal Anti-inflammatory Drug Start: 04-20-2021 End: 04-28-2021 take 75 mg by mouth twice daily Diclofenac Sodium Discontinued 75 MG PO Twice daily April 20, 2021 12:00am April 28, 2021 3:08pm docusate sodium 100 mg oral capsule (5 sources) Start: 04-28-2021 End: 05-23-2021 take 1 capsule by mouth twice daily Docusate Sodium (Dok) 100 mg Capsule Discontinued 100 MG PO Twice daily 0 April 28, 2021 1:00am May 23, 2021 3:52pm gabapentin 100 mg oral capsule (3 sources) Anti-epileptic Agent Start: 12-14-2022 End: 06-14-2023 take 100 mg by mouth twice daily Gabapentin Discontinued 100 MG PO Twice daily December 14, 2022 12:00am June 14, 2023 4:01pm irbesartan 300 mg oral tablet (5 sources) Angiotensin 2 Receptor Bryan Start: 04-20-2021 End: 06-14-2021 take 1 tablet by mouth once daily Irbesartan (Avapro) 300 mg tablet Discontinued 300 MG PO Daily April 20, 2021 12:00am June 14, 2021 3:51pm linaclotide 0.145 mg oral capsule (5 sources) Guanylate Cyclase-C Agonist Start: 05-23-2021 End: 06-14-2021 take 1 capsule by mouth once daily Linaclotide (Linzess) 145 mcg Capsule Discontinued 145 MCG PO Daily at 0730 0 May 23, 2021 1:00am June 14, 2021 3:51pm LORazepam 0.5 mg oral tablet (8 sources) Benzodiazepine Start: 05-23-2021 End: 06-14-2021 take 0.5 mg by mouth twice daily Lorazepam Discontinued 0.5 MG PO Twice daily May 23, 2021 1:00am June 14, 2021 3:55pm take 1 tablet by esteban th every twenty-four hours Ativan 0.5 MG 1 tablet at bedtime as needed Orally Once a day Active losartan potassium 100 mg oral tablet (11 sources) Angiotensin 2 Receptor Bryan Start: 06-14-2021 End: 01-13-2022 take 100 mg by mouth once daily Losartan Discontinued 100 MG PO Daily June 14, 2021 1:00am January 13, 2022 2:20pm Losartan Forrestphamolivia um *please review for potential _update for e-prescription and drug interaction check* Active Magnesium Hydroxide (10 sources) Start: 06-14-2021 End: 12-14-2022 take 1 mL by mouth twice daily Magnesium Hydroxide (Milk Of Magnesia) 400 mg/5 mL Suspension Discontinued 15 ML PO Twice daily June 14, 2021 12:00am December 14, 2022 2:25pm no bowel movement in two days Start: 06-14-2021 End: 12-14-2022 take 1 mL by mouth twice daily Magnesium Hydroxide (Mi lk Of Magnesia) 400 mg/5 mL Suspension Discontinued 15 ML PO Twice daily June 14, 2021 1:00am December 14, 2022 3:25pm no bowel movement in two days Start: 06-14-2021 take 1 mL by mouth twice daily Magnesium Hydroxide (Milk Of Magnesia) 400 mg/5 mL Suspension Active 15 ML PO Twice daily June 14, 2021 12:00am no bowel movement in two days Start: 06-14-2021 take 1 mL by mouth twice daily Magnesium Hydroxide (Milk Of Magnesia) 400 mg/5 mL Suspension Active 15 ML PO Twice daily June 14, 2021 1:00am no bowel movement in two days Start: 04-28-2021 End: 05-23-2021 take 1 mL by mouth twice daily Magnesium Hydroxide (Mi lk Of Magnesia) 400 mg/5 mL Suspension Discontinued 30 ML PO Twice daily 0 April 28, 2021 12:00am May 23, 2021 2:52pm Start: 04-28-2021 End: 05-23-2021 take 1 mL by mouth twice daily Magnesium Hydroxide (Mi lk Of Magnesia) 400 mg/5 mL Suspension Discontinued 30 ML PO Twice daily 0 April 28, 2021 1:00am May 23, 2021 3:52pm meloxicam 15 mg oral tablet (3 sources) Nonsteroidal Anti-inflammatory Drug Start: 11-05-2018 take 1 tablet by mouth after mealtime as needed Meloxicam 15 MG 1 tablet Orally 1QD PC PRN for 30 day(s) October, Not-Taking [place] 4-Beu-Rbm-Fish Oil (Fish Oil) 1,200 (144-216) mg Capsule (5 sources) Start: 06-14-2021 End: 06-14-2023 take 1 capsule by mouth once daily [place] 9-Nsl-Pxd-Fish Oil (Fish Oil) 1,200 (144-216) mg Capsule Discontinued 1 CAP PO Daily June 14, 2021 1:00am June 14, 2023 4:01pm Start: 06-14-2021 End: 06-14-2023 take 1 capsule by mouth once daily [place] 8-Mkr-Cbn-Fish Oil (Fish Oil) 1,200 (144-216) mg Capsule Discontinued 1 CAP PO Daily June 14, 2021 12:00am June 14, 2023 3:01pm Start: 06-14-2021 take 1 capsule by mo ut once daily [place] 2-Kcj-Emu-Fish Oil (Fish Oil) 1,200 (144-216) mg Capsule Active 1 CAP PO Daily June 14, 2021 12:00am Start: 06-14-2021 take 1 capsule by mo [facility] once daily [place] 9-Izb-Oie-Fish Oil (Fish Oil) 1,200 (144-216) mg Capsule Active 1 CAP PO Daily June 14, 2021 1:00am omeprazole 20 mg delayed release oral capsule (8 sources) Proton Pump Inhibitor Start: 05-23-2021 End: 12-14-2022 take 40 mg by mouth once daily at breakfast Omeprazole Discontinued 40 MG PO Daily with breakfast 0 May 23, 2021 1:00am December 14, 2022 3:25pm take 1 capsule by mouth once jose ly Omeprazole 20 MG 1 capsule 30 minutes before morning meal Orally Once a day Active oxyCODONE hydrochloride 5 mg oral tablet (5 sources) Opioid Agonist Start: 04-23-2021 End: 05-23-2021 take 5 mg by mouth every four hours Oxycodone Discontinued 5 MG PO Every 4 hours 0 April 23, 2021 May 23, 2021 3:52pm polyethylene glycol 3350 92970 mg powder for oral solution (5 sources) Osmotic Laxative Start: 06-14-2021 End: 12-14-2022 Polyethylene Glycol 3350 (Miralax) 17 gram Powder In Packet Discontinued 17 GM PO Daily June 14, 2021 1:00am December 14, 2022 3:25pm Sennosides (Senna Lax) 8.6 mg Tablet (5 sources) Start: 04-23-2021 End: 12-14-2022 take 2 tablets by mouth twice daily Sennosides (Senna Lax) 8.6 mg Tablet Discontinued 17.2 MG PO Twice daily 0 April 22, 2021 11:00pm December 14, 2022 2:25pm Start: 04-23-2021 End: 12-14-2022 take 2 tablets by mouth twice daily Sennosides (Senna Lax) 8.6 mg Tablet Discontinued 17.2 MG PO Twice daily 0 April 23, 2021 12:00am December 14, 2022 3:25pm Start: 04-23-2021 take 2 tablets by mo uth twice daily Sennosides (Senna Lax) 8.6 mg Tablet Active 17.2 MG PO Twice daily 0 April 22, 2021 11:00pm Start: 04-23-2021 take 2 tablets by mo uth twice daily Sennosides (Senna Lax) 8.6 mg Tablet Active 17.2 MG PO Twice daily 0 April 23, 2021 12:00am Stool Softener (3 sources) Stool Softener * please review for potential _update for e-prescription and drug interaction check* Not-Taking Sucralfate (5 sources) Aluminum Complex Start: 05-23-2021 End: 01-13-2022 take 1 g by mouth once before mealtime Sucralfate Discontinued 1 GM PO 3x/Day before meals & bedtime 0 May 23, 2021 12:00am January 13, 2022 1:21pm Start: 05-23-2021 End: 01-13-2022 take 1 g by mouth once before mealtime Sucralfate Discontinued 1 GM PO 3x/Day before meals & bedtime 0 May 23, 2021 1:00am January 13, 2022 2:21pm temazepam 15 mg oral capsule (5 sources) Benzodiazepine Start: 05-23-2021 End: 06-14-2021 take 15 mg by mouth once daily Temazepam Discontinued 15 MG PO DAILY@1999 30 May 23, 2021 1:00am June 14, 2021 3:52pm traMADol hydrochloride 50 mg oral tablet (8 sources) Opioid Agonist Start: 04-28-2021 End: 05-23-2021 take 50 mg by mouth every eight hours Tramadol Discontinued 50 MG PO Every 8 hours 0 April 28, 2021 1:00am May 23, 2021 3:52pm Start: 11-14-2019 take 1 tablet by esteban th once daily at bedtime as needed traMADol HCl 50 MG 1 tablet as needed Orally qhs for 30 days October, Active Walker - (3 sources) Start: 01-22-2019 Walker - Front Wheeled Walker as directed SP LEFT TOTAL KNEE REPLACEMENT for 999 days *please review for potential _update for e-prescription and drug interaction check* Height: 61inWeight: 155lb Jan, Not-Taking Problems Active Problems Problem Classification Problem Date Documented Da te Episodic/Chronic Acute cerebrovascular disease (20 sources) Ischemic stroke; Translations: [Cerebral infarction, unspecified] Onset: 12-27-2023 10-13-2021 Chronic Acute posthemorrhagic anemia (5 sources) Acute posthemorrhagic anemia; Translations: [Acute posthemorrhagic anemia] 06-14-2021 Episodic Anxiety disorders (5 sources) Anxiety; Translations: [Anxiety disorder, unspecified] 06-14-2021 Chronic Cancer of ovary (6 sources) History of malignant neoplasm of ovary; Translations: [Personal history of malignant neoplasm of ovary] 06-14-2021 Episodic Cancer of uterus (1 source) Personal history of malignant neoplasm of other parts of uterus; Translations: [PERS HX MAL NEOPLSM OTH PART UTRUS] Onset: 09-19-2022 Episodic Deficiency and other anemia (5 sources) Anemia; Translations: [Anemia, unspecified] 06-14-2021 Episodic Diseases of white blood cells (1 source) Other neutropenia; Translations: [OTHER NEUTROPENIA] Onset: 12-12-2021 Chronic Disorders of lipid metabolism (10 sources) Hyperlipidemia; Translations: [Hyperlipidemia, unspecified] Onset: 12-27-2023 12-27-2023 Chronic Esophageal disorders (14 sources) Diffuse spasm of esophagus; Translations: [Dyskinesia of esophagus] Onset: 09-19-2022 04-29-2021 Chronic Essential hypertension (16 sources) Hypertensive disorder; Translations: [Essential (primary) hypertension] Onset: 09-19-2022 06-14-2021 Chronic Fluid and electrolyte disorders (8 sources) Hyponatremia; Translations: [Hypo-osmolality and hyponatremia] Onset: 12-12-2021 06-14-2021 Episodic Fracture of neck of femur (hip) (7 sources) Unspecified fracture of head of right femur, subsequent encounter for closed fracture with routine healing; Translations: [Fracture of neck of femur] Onset: 06-29-2021 Resolved: 11-04-2021 Episodic Genitourinary symptoms and ill-defined conditions (14 sources) Iván hematuria; Translations: [Gross hematuria] Onset: 09-16-2022 06-14-2021 Episodic Malaise and fatigue (6 sources) Fatigue; Translations: [Chronic fatigue, unspecified] Onset: 12-27-2023 12-27-2023 Chronic Malaise and fatigue (6 sources) Right hemiparesis; Translations: [Weakness] Onset: 04-11-2022 06-14-2021 Episodic Mood disorders (10 sources) Depressive disorder; Translations: [Depression] 10-13-2021 Chronic Osteoarthritis (15 sources) Osteoarthritis of elbow; 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, upper arm] Onset: 09-19-2022 06-14-2021 Chronic Osteoporosis (5 sources) Osteoporosis; Translations: [Age-related osteoporosis without current pathological fracture] 06-14-2021 Chronic Other aftercare (1 source) Other senior living (current) drug therapy; Translations: [OTH [facility] CURRENT DRUG THERAPY] Onset: 09-19-2022 Episodic Other aftercare (1 source) 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; Translations: [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 ASPIRIN] Onset: 09-19-2022 Episodic Other circulatory disease (1 source) Personal history of transient ischemic attack (TIA), and cerebral infarction without residual deficits; Translations: [PERS HX TIA AND CI NO RESID DEFICIT] Onset: 09-19-2022 Episodic Other connective tissue disease (3 sources) Artificial knee joint present; Translations: [Presence of unspecified artificial knee joint] Chronic Other connective tissue disease (8 sources) History of total knee arthroplasty; Translations: [Presence of left artificial knee joint] 06-14-2021 Chronic Other connective tissue disease (5 sources) History of repair of hip joint; Translations: [Presence of unspecified artificial hip joint] 10-13-2021 Chronic Other connective tissue disease (7 sources) Presence of unspecified artificial hip joint; Translations: [Hip joint replacement] Onset: 12-22-2021 01-13-2022 Chronic Other connective tissue disease (1 source) Presence of right artificial hip joint; Translations: [PRESENCE RIGHT ARTIFICIAL HIP JOINT] Onset: 09-19-2022 Chronic Other connective tissue disease (5 sources) Rhabdomyolysis; Translations: [Rhabdomyolysis] 06-14-2021 Episodic Other diseases of kidney and ureters (1 source) Other specified disorders of kidney and ureter; Translations: [OTHER SPEC DISORDERS KIDNEY URETER] Onset: 12-12-2021 Chronic Other diseases of kidney and ureters (5 sources) Cyst of kidney; Translations: [Cyst of kidney, acquired] 06-14-2021 Episodic Other ear and sense organ disorders (1 source) Unspecified hearing loss, unspecified ear; Translations: [UNS HEARING LOSS UNSPECIFIED EAR] Onset: 04-11-2022 Chronic Other ear and sense organ disorders (10 sources) Hearing loss of left ear; Translations: [Unspecified hearing loss, left ear] Onset: 12-27-2023 12-27-2023 Chronic Other fractures (5 sources) Compression fracture of thoracic spine; Translations: [Wedge compression fracture of T9-T10 vertebra, initial encounter for closed fracture] 10-13-2021 Episodic Other fractures (5 sources) Wedge compression fracture of T9-T10 vertebra, initial encounter for closed fracture; Translations: [Closed fracture of dorsal [thoracic] vertebra without mention of spinal cord injury] 01-13-2022 Episodic Other gastrointestinal disorders (8 sources) Dysphagia; Translations: [Dysphagia, unspecified] 06-14-2021 Episodic Other gastrointestinal disorders (5 sources) Pelvic mass; Translations: [Intra-abdominal and pelvic swelling, mass and lump, unspecified site] 10-13-2021 Episodic Other gastrointestinal disorders (5 sources) Constipation; Translations: [Constipation, unspecified] 06-14-2021 Episodic Other gastrointestinal disorders (6 sources) Intra-abdominal and pelvic swelling, mass and lump, unspecified site; Translations: [Abdominal or pelvic swelling, mass, or lump, unspecified site] 01-13-2022 Episodic Other gastrointestinal disorders (3 sources) Disorder of colon; Translations: [Disease of intestine, unspecified] 05-31-2022 Episodic Other gastrointestinal disorders (4 sources) Disease of intestine, unspecified; Translations: [Other specified disorders of intestine] 12-14-2022 Episodic Other gastrointestinal disorders (1 source) Other intra-abdominal and pelvic swelling, mass and lump; Translations: [Other intra-abdominal and pelvic swelling, mass and lump] Onset: 12-13-2023 Episodic Other lower respiratory disease (5 sources) Multiple nodules of lung; Translations: [Other nonspecific abnormal finding of lung field] 06-14-2021 Episodic Other nervous system disorders (3 sources) Chronic pain; Translations: [Other chronic pain] Chronic Other nervous system disorders (3 sources) Difficulty walking; Translations: [Difficulty in walking, not elsewhere classified] Chronic Other nervous system disorders (1 source) Disorder of sleep-wake cycle; Translations: [Circadian rhythm sleep disorder, unspecified type] 06-14-2021 Chronic Other nervous system disorders (4 sources) Abnormal circadian rhythm; Translations: [Circadian rhythm sleep disorder, unspecified type] 06-14-2021 Chronic Other nervous system disorders (10 sources) Abnormal gait; Translations: [Unsteadiness on feet] Onset: 12-27-2023 12-27-2023 Episodic Other nervous system disorders (10 sources) Paresthesia; Translations: [Paresthesia of skin] Onset: 12-27-2023 12-27-2023 Episodic Other non-traumatic joint disorders (3 sources) Pain in elbow; Translations: [Elbow pain] Episodic Other non-traumatic joint disorders (5 sources) Hip pain; Translations: [Pain in right hip] 06-14-2021 Episodic Other nutritional; endocrine; and metabolic disorders (1 source) Obesity, unspecified; Translations: [OBESITY UNSPECIFIED] Onset: 04-11-2022 Chronic Residual codes; unclassified (1 source) Acquired absence of both cervix and uterus; Translations: [ACQUIRED ABSENCE BOTH CERVIX AND UTERUS] Onset: 09-19-2022 Episodic Residual codes; unclassified (3 sources) Language spoken - finding; Translations: [Other specified health status] 05-31-2022 Episodic Residual codes; unclassified (4 sources) Other specified health status; Translations: [Mental and behavioral problems with communication [including speech]] 12-14-2022 Episodic Rheumatoid arthritis and related disease (6 sources) Rheumatoid arthritis; Translations: [Rheumatoid arthritis, unspecified] Onset: 12-27-2023 12-27-2023 Chronic Unclassified (1 source) CONTACT W/AND (SUSP) EXPOS COVID-19; Translations: [CONTACT W/AND (SUSP) EXPOS COVID-19] Onset: 04-11-2022 Urinary tract infections (5 sources) Urinary tract infection, site not specified; Translations: [Tubulo-interstitial nephritis, not specified as acute or chronic] Onset: 03-20-2022 Episodic Past or Other Problems Problem Classification Problem Date Documented Date Episodic/Chronic Abdominal pain (4 sources) Unspecified abdominal pain; Translations: [UNSPECIFIED ABDOMINAL PAIN] Onset: 12-20-2021 Episodic Acute and unspecified renal failure (1 source) Acute kidney failure, unspecified; Translations: [ACUTE KIDNEY FAILURE UNSPECIFIED] Onset: 12-12-2021 Episodic Cardiac dysrhythmias (1 source) Tachycardia, unspecified; Translations: [TACHYCARDIA UNSPECIFIED] Onset: 04-11-2022 Episodic Conditions associated with dizziness or vertigo (1 source) Dizziness and giddiness; Translations: [DIZZINESS AND GIDDINESS] Onset: 04-11-2022 Episodic Deficiency and other anemia (1 source) Iron deficiency anemia, unspecified; Translations: [IRON DEFICIENCY ANEMIA UNSPECIFIED] Onset: 04-11-2022 Episodic Diabetes mellitus without complication (1 source) Hyperglycemia, unspecified; Translations: [HYPERGLYCEMIA UNSPECIFIED] Onset: 04-11-2022 Episodic Intestinal obstruction without hernia (1 source) Unspecified intestinal obstruction, unspecified as to partial versus complete obstruction; Translations: [UNS INTEST OBS UNS PART VS CMPL OBS] Onset: 12-22-2021 Episodic Other circulatory disease (1 source) Hypotension, unspecified; Translations: [HYPOTENSION UNSPECIFIED] Onset: 04-11-2022 Episodic Other lower respiratory disease (1 source) Acute respiratory distress; Translations: [ACUTE RESPIRATORY DISTRESS] Onset: 04-11-2022 Episodic Other lower respiratory disease (1 source) Hypoxemia; Translations: [HYPOXEMIA] Onset: 04-11-2022 Episodic Other nervous system disorders (6 sources) Paresthesia of hand ; Translations: [Paresthesia of skin] Onset: 12-27-2023 12-27-2023 Episodic Other nutritional; endocrine; and metabolic disorders (1 source) Body mass index (BMI) 25.0-25.9, adult; Translations: [BODY MASS INDEX BMI 25.0-25.9 ADULT] Onset: 04-11-2022 Episodic Other screening for suspected conditions (not mental disorders or infectious disease) (1 source) Elevated C-reactive protein (CRP); Translations: [ELEVATED C-REACTIVE PROTEIN CRP] Onset: 04-11-2022 Episodic Residual codes; unclassified (3 sources) Other specified postprocedural states; Translations: [OTH SPECIFIED POSTPROCEDURAL STATES] Onset: 06-29-2021 Resolved: 11-04-2021 Episodic Septicemia (except in labor) (5 sources) Sepsis due to Escherichia coli [E. coli]; Translations: [Severe sepsis without septic shock] Onset: 11-10-2021 Episodic Results Test Name Value Interpretation Reference Range Facility Alanine aminotransferase [En zymatic activity/volume] in Serum or PlasmaOrdered By: Nara Bowman on 12-10-2023 ALT [Catalytic activity/Vol] 18 U/L 7-52 [facility] Albumin [Mass/volume] in Ser um or Plasma by Bromocresol green (BCG) dye binding methoOrdered By: Nara Bowman on 12-10-2023 Albumin BCG dye [Mass/Vol] 3.9 g/dL 3.5-5.7 [facility] Alkaline phosphatase [Enzyma tic activity/volume] in Serum or PlasmaOrdered By: Nara Bowman on 12-10-2023 ALP [Catalytic activity/Vol] 107 U/L High 34-104 [facility] Aspartate aminotransferase [ Enzymatic activity/volume] in Serum or PlasmaOrdered By: Nara Bowman on 12-10-2023 AST [Catalytic activity/Vol] 28 U/L 13-39 [facility] Basophils Auto (Bld) [#/Vol] Ordered By: Nara Bowman on 12-10-2023 Basophils (Bld) [#/Vol] 0.0 10*3/uL 0.0-0.2 [facility] Basophils/100 WBC Auto (Bld) Ordered By: Nara Bowman on 12-10-2023 Basophils/100 WBC (Bld) 0.6 % . [facility] Bilirubin.total [Mass/volume ] in Serum or PlasmaOrdered By: Nara Bowman on 12-10-2023 Bilirubin [Mass/Vol] 1.0 mg/dL 0.3-1.0 [facility] CT abdomen pelvis w conon CT abdomen pelvis w con [facility] [place] [address] [place], [place] [id number] CT Scan Report Signed Patient: Sabi Santamaria MR#: [id number] : 1945 Acct:[id number] Age/Sex: 78 / F ADM Date: 12/10/23 Loc: XT Room: Type: [facility] RCR Attending Dr: Bonnie Hendricks MD Copies to: MD Nara Kay APRN Ordering Provider: Nara Bowman APRN Date of Service: 12/10/23 CT/CT abdomen pelvis w con: surveilance CT Abdomen and Pelvis withcontrast TECHNIQUE: Axial imaging with 2-D reconstruction.90 cc of Isovue-300. The CT exam was performed using one or more the following dose reduction techniques: Automated exposure control, adjustment of the MA and/or Kv according to patient size, or use of the iterative reconstruction technique. COMPARISON: 12/12/22 History: Follow-up ovarian cancer. Six-month assessment LIMITATIONS: None LOWER THORAX moderate hiatal hernia. Mild atelectasis. LIVER: Unremarkable GALLBLADDER: No gallbladder abnormality identified. BILE DUCTS: No dilatation SPLEEN: Unremarkable PANCREAS: Unremarkable ADRENAL GLANDS: Unremarkable KIDNEYS:Large LEFT renal cyst redemonstrated. AORTA: No abdominal aortic aneurysm identified. RETROPERITONEUM: No significant retroperitoneal abnormalities identified. MESENTERY:Unremarkable SMALL BOWEL: The small bowel loops are nondistended. APPENDIX: The appendix is normal. COLON: Moderate constipation URINARY BLADDER: Urinary bladder is unremarkable. REPRODUCTIVE SYSTEM: A similar LEFT adnexal lesion. Hysterectomy. PNEUMOPERITONEUM: None PERITONEAL FLUID:None BONY STRUCTURES: The RIGHT hip arthroplasty with streak artifact. Degenerative change. Similar scoliosis ABDOMINAL WALL: Unremarkable CT/CT abdomen pelvis w con IMPRESSION: Similar LEFT adnexal lesion. No recurrent disease. No developing distal metastasis. Impression dictated by: Rickey Rey M.D.12/10/2023 4:28 PM Dictation Location: [place] [address] Transcribed By: PAMELA 12/10/231627 Dictated By: Rickey Rey DO 12/10/231622 Signed By: 12/10/231627 Normal [facility] Calcium [Mass/volume] in Ser um or PlasmaOrdered By: Nara Bowman on 12-10-2023 Calcium [Mass/Vol] 9.3 mg/dL 8.6-10.3 [facility] Carbon dioxide, total [Moles /volume] in Serum or PlasmaOrdered By: Nara Bowman on 12-10-2023 CO2 [Moles/Vol] 30.1 mmol/L 21.0-31.0 [facility] Chloride [Moles/volume] in S clyde or PlasmaOrdered By: Nara Bowman on 12-10-2023 Chloride [Moles/Vol] 105 mmol/L 98-107 [facility] Creatinine [Mass/volume] in Serum or PlasmaOrdered By: Nara Bowman on 12-10-2023 Creatinine [Mass/Vol] 0.72 mg/dL 0.60-1.20 [facility] Eosinophils Auto (Bld) [#/Vo l]Ordered By: Nara Bowman on 12-10-2023 Eosinophils (Bld) [#/Vol] 0.2 10*3/uL 0.0-0.45 [facility] Eosinophils/100 WBC Auto (Bl d)Ordered By: Nara Bowman on 12-10-2023 Eosinophils/100 WBC (Bld) 4.5 % . [facility] Erythrocyte distribution wid th Auto (RBC) [Ratio]Ordered By: Nara Bowman on 12-10-2023 Erythrocyte distribution width (RBC) [Ratio] 15.5 % High 11.9-15.3 [facility] Globulin Calc (S) [Mass/Vol] Ordered By: Nara Bowman on 12-10-2023 Globulin (S) [Mass/Vol] 4.2 g/dL [facility] Glucose [Mass/volume] in Ser um or PlasmaOrdered By: Nara Bowman on 12-10-2023 Glucose [Mass/Vol] 95 mg/dL 70-100 [facility] Comment on above: ADA recommended refe rence rangeRandom Glucose Reference Range is dependent on time and content of last meal. Glucose of more than 200 mg/dL in a nonstressed, ambulatory subject supports the diagnosis of Diabetes Mellitus. Hematocrit Auto (Bld) [Volum e fraction]Ordered By: Nara Bowman on 12-10-2023 Hematocrit (Bld) [Volume fraction] 37.0 % 34.0-46.4 [facility] Hemoglobin [Mass/volume] in BloodOrdered By: Nara Bowman on 12-10-2023 Hemoglobin (Bld) [Mass/Vol] 12.4 g/dL 11.8-15.4 [facility] Leukocytes [#/volume] correc blanca for nucleated erythrocytes in Blood by Automated counOrdered By: Nara Bowman on 12-10-2023 WBC corrected for nucl RBC Auto (Bld) [#/Vol] 5.1 10*3/uL 3.8-11.6 [facility] Lymphocytes Auto (Bld) [#/Vo l]Ordered By: Nara Bowman on 12-10-2023 Lymphocytes (Bld) [#/Vol] 1.6 10*3/uL 1.00-4.8 [facility] Lymphocytes/100 WBC Auto (Bl d)Ordered By: Nara Bowman on 12-10-2023 Lymphocytes/100 WBC (Bld) 30.7 % . [facility] MCH Auto (RBC) [Entitic mass ]Ordered By: Nara Bowman on 12-10-2023 MCH (RBC) [Entitic mass] 30.3 pg 24.7-34.3 [facility] MCHC Auto (RBC) [Mass/Vol]Or dered By: Nara Bowman on 12-10-2023 MCHC (RBC) [Mass/Vol] 33.5 g/dL 32.0-35.0 [facility] MCV Auto (RBC) [Entitic vol] Ordered By: Nara Bowman on 12-10-2023 MCV (RBC) [Entitic vol] 90.4 fL 80-100 [facility] Monocytes Auto (Bld) [#/Vol] Ordered By: Nara Bowman on 12-10-2023 Monocytes (Bld) [#/Vol] 0.4 10*3/uL 0.0-0.8 [facility] Monocytes/100 WBC Auto (Bld) Ordered By: Nara Bowman on 12-10-2023 Monocytes/100 WBC (Bld) 8.6 % . [facility] Neutrophils Auto (Bld) [#/Vo l]Ordered By: Nara Bowman on 12-10-2023 Neutrophils (Bld) [#/Vol] 2.9 10*3/uL 1.8-7.7 [facility] Neutrophils/100 WBC Auto (Bl d)Ordered By: Nara Bowman on 12-10-2023 Neutrophils/100 WBC (Bld) 55.6 % . [facility] No Panel InformationOrdered By: Nara Bowman on 12-10-2023 Estimated GFR (CKD-EPI) > 60.0 mL/Min [facility] Creatinine Clearance (Chem 50.85 [facility] Nucleated erythrocytes [Pres ence] in Blood by Automated countOrdered By: Nara Bowman on 12-10-2023 Nucleated RBC Auto Ql (Bld) 0.1 /100{WBC} 0-0.5 [facility] Platelet mean volume Auto (B ld) [Entitic vol]Ordered By: Nara Bowman on 12-10-2023 Platelet mean volume (Bld) [Entitic vol] 7.1 fL 6.3-10.7 [facility] Platelets Auto (Bld) [#/Vol] Ordered By: Nara Bowman on 12-10-2023 Platelets (Bld) [#/Vol] 281 10*3/uL 150-450 [facility] Potassium [Moles/volume] in Serum or PlasmaOrdered By: Nara Bowman on 12-10-2023 Potassium [Moles/Vol] 4.2 mmol/L 3.5-5.1 [facility] Protein [Mass/volume] in Ser um or PlasmaOrdered By: Nara Bowman on 12-10-2023 Protein [Mass/Vol] 8.1 g/dL 6.4-8.9 [facility] RBC Auto (Bld) [#/Vol]Ordere d By: Nara Bowman on 12-10-2023 RBC (Bld) [#/Vol] 4.10 10*6/uL 3.60-5.00 [facility] Serum or plasma albumin/glob ulin mass ratioOrdered By: Nara Bowman on 12-10-2023 Albumin/Globulin [Mass ratio] 0.9 {ratio} [facility] Serum or plasma anion gap de terminationOrdered By: Nara Bowman on 12-10-2023 Anion gap [Moles/Vol] 9.1 mmol/L 6.0-15.0 [facility] Serum or plasma cancer antig en 125 (CA-125) measurement (units/volume)Ordered By: Nara Bowman on 12-10-2023 Cancer Ag 125 Qn 19.8 [arb'U]/mL 0.0-38.1 [facility] Comment on above: [employer] El ectrochemiluminescence Immunoassay(ECLIA)Values obtained with different assay methods or kits cannotbe used interchangeably. Results cannot be interpreted asabsolute evidence of the presence or absence of malignantdisease.Performed at: - [place] [id number] Director: Adrian Coello PhD, Phone: [phone] Sodium [Moles/volume] in Ser um or PlasmaOrdered By: Nara Bowman on 12-10-2023 Sodium [Moles/Vol] 140 mmol/L 136-145 [facility] Urea nitrogen [Mass/volume] in Serum or PlasmaOrdered By: Nara Bowman on 12-10-2023 Urea nitrogen [Mass/Vol] 17 mg/dL 7-25 [facility] WBC Auto (Bld) [#/Vol]Ordere d By: Nara Bowman on 12-10-2023 WBC (Bld) [#/Vol] 5.1 10*3/uL 3.8-11.6 [facility] Alanine aminotransferase [En zymatic activity/volume] in Serum or PlasmaOrdered By: Bonnie Eladio on 06-06-2023 ALT [Catalytic activity/Vol] 11 U/L Normal 7-52 [facility] Comment on above: Performed By: #### C MP, CBC #### [facility] [address] [place] [address] [place] #### CA125 #### [facility] , Albumin [Mass/volume] in Ser um or Plasma by Bromocresol green (BCG) dye binding methoOrdered By: Bonnie Hendricks on 06-06-2023 Albumin BCG dye [Mass/Vol] 3.7 g/dL 3.5-5.7 [facility] Alkaline phosphatase [Enzyma tic activity/volume] in Serum or PlasmaOrdered By: Bonnie Hendricks on 06-06-2023 ALP [Catalytic activity/Vol] 111 U/L High 34-104 [facility] Comment on above: Result Comment: PERF ORMED BY: [place] [address] PATHOLOGIST [employer] ALIS BLOCK M.D. Performed By: #### C MP, CBC #### [facility] [address] [place] [address] [place] #### CA125 #### [facility] , Aspartate aminotransferase [ Enzymatic activity/volume] in Serum or PlasmaOrdered By: Bonnie Hendricks on 06-06-2023 AST [Catalytic activity/Vol] 21 U/L Normal 13-39 [facility] Comment on above: Performed By: #### C MP, CBC #### [facility] [address] [place] [address] [place] #### CA125 #### [facility] , Automated basophil %Ordered By: Bonnie Hendricks on 06-06-2023 Basophils/100 WBC (Bld) 0.5 % Normal . [facility] Comment on above: Performed By: #### C MP, CBC #### [place] [address] [place] #### CA125 #### [facility] , Automated basophil countOrde red By: Bonnie Hendricks on 06-06-2023 Basophils (Bld) [#/Vol] 0.0 10*3/uL Normal 0.0-0.2 [facility] Comment on above: Result Comment: PERF ORMED BY: [place] [address] PATHOLOGIST [employer] MANAGER ALIS BLOCK M.D. Performed By: #### C MP, CBC #### [place] [address] [place] #### CA125 #### [facility] , Automated blood monocyte cou ntOrdered By: Bonnie Francoisse on 06-06-2023 Monocytes (Bld) [#/Vol] 0.5 10*3/uL Normal 0.0-0.8 [facility] Comment on above: Performed By: #### C MP, CBC #### [address] #### CA125 #### [facility] , Automated eosinophil %Ordere d By: Bonnie Hendricks on 06-06-2023 Eosinophils/100 WBC (Bld) 2.1 % Normal . [facility] Comment on above: Performed By: #### C MP, CBC #### [place] [address] [place] #### CA125 #### [facility] , Automated eosinophil countOr dered By: Bonnie Hendricks on 06-06-2023 Eosinophils (Bld) [#/Vol] 0.1 10*3/uL Normal 0.0-0.45 [facility] Comment on above: Performed By: #### C MP, CBC #### [place] [address] [place] #### CA125 #### [facility] , Automated monocyte %Ordered By: Bonnie Francoisse on 06-06-2023 Monocytes/100 WBC (Bld) 7.8 % Normal . [facility] Comment on above: Performed By: #### C MP, CBC #### [facility] [address] [place] [address] [place] #### CA125 #### [facility] , Automated neutrophil %Ordere d By: Bonnie Hendricks on 06-06-2023 Neutrophils/100 WBC (Bld) 62.6 % Normal . [facility] Comment on above: Performed By: #### C MP, CBC #### [facility] [address] [place] [address] [place] #### CA125 #### [facility] , Bilirubin.total [Mass/volume ] in Serum or PlasmaOrdered By: Bonnie Hendricks on 06-06-2023 Bilirubin [Mass/Vol] 0.6 mg/dL Normal 0.3-1.0 [facility] Comment on above: Performed By: #### C MP, CBC #### [facility] [address] [place] [address] [place] #### CA125 #### [facility] , Calcium [Mass/volume] in Ser um or PlasmaOrdered By: Bonnie Hendricks on 06-06-2023 Calcium [Mass/Vol] 9.4 mg/dL Normal 8.6-10.3 [facility] Comment on above: Performed By: #### C MP, CBC #### [facility] [address] [place] [address] [place] #### CA125 #### [facility] , Cancer Antigen 125on 023 Cancer Antigen 125 15.5 Normal 0.0-38.1 [facility] Comment on above: Result Comment: [employer] Electrochemiluminescence Immunoassay (ECLIA) Values obtained with different assay methods or kits cannot be used interchangeably. Results cannot be interpreted as absolute evidence of the presence or absence of malignant disease. Performed at: [facility] [employer] [id number] [employer] Installer: Adrian Coello PhD, Phone: [phone] PERFORMED BY: [place] [address] PATHOLOGIST [employer] DIV[employer] MANAGER ALIS BLOCK M.D. Performed By: #### C MP, CBC #### [facility] [address] [place] [address] [place] #### CA125 #### [facility] , Carbon dioxide, total [Moles /volume] in Serum or PlasmaOrdered By: Bonnie Hendricks on 06-06-2023 CO2 [Moles/Vol] 29.4 mmol/L Normal 21.0-31.0 [facility] Comment on above: Performed By: #### C MP, CBC #### [place] [address] [place] #### CA125 #### [facility] , Chloride [Moles/volume] in S clyde or PlasmaOrdered By: Bonnie Hendricks on 06-06-2023 Chloride [Moles/Vol] 103 mmol/L Normal 98-107 [facility] Comment on above: Performed By: #### C MP, CBC #### [place] [address] [place] #### CA125 #### [facility] , Complete Blood Count Auto Di ffon 06-06-2023 Mean Corpuscular HGB Conc 32.9 g/dL Normal 32.0-35.0 [facility] Comment on above: Performed By: #### C MP, CBC #### [facility] [address] [place] [address] [place] #### CA125 #### [facility] , NRBC% 0.1 /100{WBC} Normal 0-0.5 [facility] Comment on above: Performed By: #### C MP, CBC #### [place] [address] [place] #### CA125 #### [facility] , Comprehensive Metabolic Pane chelsey 06-06-2023 Albumin [Mass/Vol] 3.7 g/dL Normal 3.5-5.7 [facility] Comment on above: Performed By: #### C MP, CBC #### [facility] [address] [place] [address] [place] #### CA125 #### [facility] , GFR/1.73 sq M.predicted MDRD (S/P/Bld) [Vol rate/Area] mL/min/{1.73_m2} Normal [facility] Comment on above: Performed By: #### C MP, CBC #### [facility] [address] [place] [address] [place] #### CA125 #### [facility] , Creatinine [Mass/volume] in Serum or PlasmaOrdered By: Bonnie Hendricks on 06-06-2023 Creatinine [Mass/Vol] 0.64 mg/dL Normal 0.60-1.20 [facility] Comment on above: Performed By: #### C MP, CBC #### [facility] [address] [place] [address] [place] #### CA125 #### [facility] , Erythrocyte distribution wid th [Ratio] by Automated countOrdered By: Bonnie Hendricks on 06-06-2023 Erythrocyte distribution width (RBC) [Ratio] 15.6 % High 11.9-15.3 [facility] Comment on above: Performed By: #### C MP, CBC #### [facility] [address] [place] [address] [place] #### CA125 #### [facility] , Erythrocytes [#/volume] in B lood by Automated countOrdered By: Bonnie Hendricks on 06-06-2023 RBC (Bld) [#/Vol] 4.36 10*6/uL Normal 3.60-5.00 [facility] Comment on above: Performed By: #### C MP, CBC #### [facility] [address] [place] [address] [place] #### CA125 #### [facility] , Glucose [Mass/volume] in Ser um or PlasmaOrdered By: Bonnie Eladio on 06-06-2023 Glucose [Mass/Vol] 93 mg/dL Normal 70-100 [facility] Comment on above: ADA recommended refe rence rangeRandom Glucose Reference Range is dependent on time and content of last meal. Glucose of more than 200 mg/dL in a nonstressed, ambulatory subject supports the diagnosis of Diabetes Mellitus. Result Comment: [place] om Glucose Reference Range is dependent on time and content of last meal. Glucose of more than 200 mg/dL in a nonstressed, ambulatory subject supports the diagnosis of Diabetes Mellitus. ADA recommended reference range Performed By: #### C MP, CBC #### [facility] [address] [place] [address] [place] #### CA125 #### [facility] , Hematocrit [Volume Fraction] of Blood by Automated countOrdered By: Bonnie Hendricks on 06-06-2023 Hematocrit (Bld) [Volume fraction] 37.2 % Normal 34.0-46.4 [facility] Comment on above: Performed By: #### C MP, CBC #### [facility] [address] [place] [address] [place] #### CA125 #### [facility] , Hemoglobin [Mass/volume] in BloodOrdered By: Bonnie Hendricks on 06-06-2023 Hemoglobin (Bld) [Mass/Vol] 12.3 g/dL Normal 11.8-15.4 [facility] Comment on above: Performed By: #### C MP, CBC #### [facility] [address] [place] [address] [place] #### CA125 #### [facility] , Leukocytes [#/volume] correc blanca for nucleated erythrocytes in Blood by Automated counOrdered By: Bnonie Hendricks on 06-06-2023 WBC corrected for nucl RBC Auto (Bld) [#/Vol] 5.9 10*3/uL 3.8-11.6 [facility] Leukocytes [#/volume] in Blo od by Automated countOrdered By: Bonnie Hendricks on 06-06-2023 WBC (Bld) [#/Vol] 5.9 10*3/uL Normal 3.8-11.6 [facility] Comment on above: Performed By: #### C MP, CBC #### [facility] [address] [place] [address] [place] #### CA125 #### [facility] , Lymphocytes [#/volume] in Bl ood by Automated countOrdered By: Bonnie Hendricks on 06-06-2023 Lymphocytes (Bld) [#/Vol] 1.6 10*3/uL Normal 1.00-4.8 [facility] Comment on above: Performed By: #### C MP, CBC #### [facility] [address] [place] [address] [place] #### CA125 #### [facility] , Lymphocytes/100 leukocytes i n Blood by Automated countOrdered By: Bonnie Hendricks on 06-06-2023 Lymphocytes/100 WBC (Bld) 27.0 % Normal . [facility] Comment on above: Performed By: #### C MP, CBC #### [facility] [address] [place] [address] [place] #### CA125 #### [facility] , MCH [Entitic mass] by Automa blanca countOrdered By: Bonnie Hendricks on 06-06-2023 MCH (RBC) [Entitic mass] 28.1 pg Normal 24.7-34.3 [facility] Comment on above: Performed By: #### C MP, CBC #### [facility] [address] [place] [address] [place] #### CA125 #### [facility] , MCHC Auto (RBC) [Mass/Vol]Or dered By: Bonnie Hendricks on 06-06-2023 MCHC (RBC) [Mass/Vol] 32.9 g/dL 32.0-35.0 [facility] MCV [Entitic volume] by Auto mated countOrdered By: Bonnie Hendricks on 06-06-2023 MCV (RBC) [Entitic vol] 85.4 fL Normal 80-100 [facility] Comment on above: Performed By: #### C MP, CBC #### [facility] [address] [place] [address] [place] #### CA125 #### [facility] , Neutrophils [#/volume] in Bl ood by Automated countOrdered By: Bonnie Hendricks on 06-06-2023 Neutrophils (Bld) [#/Vol] 3.7 10*3/uL Normal 1.8-7.7 [facility] Comment on above: Performed By: #### C MP, CBC #### [facility] [address] [place] [address] [place] #### CA125 #### [facility] , No Panel InformationOrdered By: Bonnie Hendricks on 06-06-2023 Estimated GFR (CKD-EPI) > 60.0 mL/Min [facility] Creatinine Clearance (Chem N/A [facility] Nucleated erythrocytes [Pres ence] in Blood by Automated countOrdered By: Bonnie Hendricks on 06-06-2023 Nucleated RBC Auto Ql (Bld) 0.1 /100{WBC} 0-0.5 [facility] Platelet mean volume [Entiti c volume] in Blood by Automated countOrdered By: Bonnie Hendricks on 06-06-2023 Platelet mean volume (Bld) [Entitic vol] 6.9 fL Normal 6.3-10.7 [facility] Comment on above: Performed By: #### C MP, CBC #### [facility] [address] [place] [address] [place] #### CA125 #### [facility] , Platelets [#/volume] in Bloo d by Automated countOrdered By: Bonnie Hendricks on 06-06-2023 Platelets (Bld) [#/Vol] 333 10*3/uL Normal 150-450 [facility] Comment on above: Performed By: #### C MP, CBC #### [facility] [address] [place] [address] [place] #### CA125 #### [facility] , Potassium [Moles/volume] in Serum or PlasmaOrdered By: Bonnie Eladio on 06-06-2023 Potassium [Moles/Vol] 3.9 mmol/L Normal 3.5-5.1 [facility] Comment on above: Performed By: #### C MP, CBC #### [facility] [address] [place] [address] [place] #### CA125 #### [facility] , Protein [Mass/volume] in Ser um or PlasmaOrdered By: Bonnie Hendricks on 06-06-2023 Protein [Mass/Vol] 7.8 g/dL Normal 6.4-8.9 [facility] Comment on above: Performed By: #### C MP, CBC #### [address] #### CA125 #### [facility] , Serum globulin measurement b y calculation (mass/volume)Ordered By: Bonnie Hendricks on 06-06-2023 Globulin (S) [Mass/Vol] 4.1 g/dL [facility] Comment on above: Performed By: #### C MP, CBC #### [facility] [address] [place] [address] [place] #### CA125 #### [facility] , Serum or plasma albumin/glob ulin mass ratioOrdered By: Bonnie Hendricks on 06-06-2023 Albumin/Globulin [Mass ratio] 0.9 {ratio} [facility] Comment on above: Performed By: #### C MP, CBC #### [facility] [address] [place] [address] [place] #### CA125 #### [facility] , Serum or plasma anion gap de terminationOrdered By: Bonnie Hendricks on 06-06-2023 Anion gap [Moles/Vol] 8.5 mmol/L Normal 6.0-15.0 [facility] Comment on above: Performed By: #### C MP, CBC #### [facility] [address] [place] [address] #### CA125 #### [facility] , Serum or plasma cancer antig en 125 (CA-125) measurement (units/volume)Ordered By: Bonnie Hendricks on 06-06-2023 Cancer Ag 125 Qn 15.5 [arb'U]/mL 0.0-38.1 [facility] Comment on above: [facility] El ectrochemiluminescence Immunoassay(ECLIA)Values obtained with different assay methods or kits cannotbe used interchangeably. Results cannot be interpreted asabsolute evidence of the presence or absence of malignantdisease.Performed at: [facility] [place] [id number] Director: Adrian Coello PhD, Phone: [phone] Sodium [Moles/volume] in Ser um or PlasmaOrdered By: Bonnie Hendricks on 06-06-2023 Sodium [Moles/Vol] 137 mmol/L Normal 136-145 [facility] Comment on above: Performed By: #### C MARTIN, CBC #### [facility] [address] [place] [address] [place] #### CA125 #### [facility] , Urea nitrogen [Mass/volume] in Serum or PlasmaOrdered By: Bonnie Hendricks on 06-06-2023 Urea nitrogen [Mass/Vol] 12 mg/dL Normal 01-09 [facility] Comment on above: Performed By: #### C MP, CBC #### [facility] [address] [place] [address] [place] #### CA125 #### [facility] , Alanine aminotransferase [En zymatic activity/volume] in Serum or PlasmaOrdered By: Bonnie Hendricks on 12-12-2022 ALT [Catalytic activity/Vol] 8 U/L [facility] Albumin [Mass/volume] in Ser um or Plasma by Bromocresol green (BCG) dye binding methoOrdered By: Bonnie Hendricks on 12-12-2022 Albumin BCG dye [Mass/Vol] 3.8 g/dL 3.5-5.7 [facility] Alkaline phosphatase [Enzyma tic activity/volume] in Serum or PlasmaOrdered By: Bonnie Hendricks on 12-12-2022 ALP [Catalytic activity/Vol] 87 U/L 34-104 [facility] Aspartate aminotransferase [ Enzymatic activity/volume] in Serum or PlasmaOrdered By: Bonnie Hendricks on 12-12-2022 AST [Catalytic activity/Vol] 13 U/L 13-39 [facility] Basophils Auto (Bld) [#/Vol] Ordered By: Bonnie Hendricks on 12-12-2022 Basophils (Bld) [#/Vol] 0.0 10*3/uL 0.0-0.2 [facility] Basophils/100 WBC Auto (Bld) Ordered By: Bonnie Hendricks on 12-12-2022 Basophils/100 WBC (Bld) 0.6 % . [facility] Bilirubin.total [Mass/volume ] in Serum or PlasmaOrdered By: Bonnie Hendricks on 12-12-2022 Bilirubin [Mass/Vol] 0.5 mg/dL 0.3-1.0 [facility] Calcium [Mass/volume] in Ser um or PlasmaOrdered By: Bonnie Hendricks on 12-12-2022 Calcium [Mass/Vol] 9.1 mg/dL 8.6-10.3 [facility] Carbon dioxide, total [Moles /volume] in Serum or PlasmaOrdered By: Bonnie Hendricks on 12-12-2022 CO2 [Moles/Vol] 27.1 mmol/L 21.0-31.0 [facility] Chloride [Moles/volume] in S clyde or PlasmaOrdered By: Bonnie Hendricks on 12-12-2022 Chloride [Moles/Vol] 104 mmol/L 98-107 [facility] Creatinine [Mass/volume] in Serum or PlasmaOrdered By: Bonnie Hendricks on 12-12-2022 Creatinine [Mass/Vol] 0.69 mg/dL 0.60-1.20 [facility] Eosinophils Auto (Bld) [#/Vo l]Ordered By: Bonnie Hendricks on 12-12-2022 Eosinophils (Bld) [#/Vol] 0.1 10*3/uL 0.0-0.45 [facility] Eosinophils/100 WBC Auto (Bl d)Ordered By: Bonnie Hendricks on 12-12-2022 Eosinophils/100 WBC (Bld) 3.1 % . [facility] Erythrocyte distribution wid th Auto (RBC) [Ratio]Ordered By: Bonnie Hendricks on 12-12-2022 Erythrocyte distribution width (RBC) [Ratio] 14.9 % 11.9-15.3 [facility] Globulin Calc (S) [Mass/Vol] Ordered By: Bonnie Hendricks on 12-12-2022 Globulin (S) [Mass/Vol] 4.0 g/dL [facility] Glucose [Mass/volume] in Ser um or PlasmaOrdered By: Bonnie Hendricks on 12-12-2022 Glucose [Mass/Vol] 99 mg/dL 70-100 [facility] Comment on above: ADA recommended refe rence rangeRandom Glucose Reference Range is dependent on time and content of last meal. Glucose of more than 200 mg/dL in a nonstressed, ambulatory subject supports the diagnosis of Diabetes Mellitus. Hematocrit Auto (Bld) [Volum e fraction]Ordered By: Bonnie Hendricks on 12-12-2022 Hematocrit (Bld) [Volume fraction] 35.1 % 34.0-46.4 [facility] Hemoglobin [Mass/volume] in BloodOrdered By: Bonnie Hendricks on 12-12-2022 Hemoglobin (Bld) [Mass/Vol] 11.5 g/dL 11.8-15.4 [facility] Leukocytes [#/volume] correc blanca for nucleated erythrocytes in Blood by Automated counOrdered By: Bonnie Hendricks on 12-12-2022 WBC corrected for nucl RBC Auto (Bld) [#/Vol] 4.8 10*3/uL 3.8-11.6 [facility] Lymphocytes Auto (Bld) [#/Vo l]Ordered By: Bonnie Hendricks on 12-12-2022 Lymphocytes (Bld) [#/Vol] 1.5 10*3/uL 1.00-4.8 [facility] Lymphocytes/100 WBC Auto (Bl d)Ordered By: Bonnie Hendricks on 12-12-2022 Lymphocytes/100 WBC (Bld) 31.0 % . [facility] MCH Auto (RBC) [Entitic mass ]Ordered By: Bonnie Hendricks on 12-12-2022 MCH (RBC) [Entitic mass] 28.6 pg 24.7-34.3 [facility] MCHC Auto (RBC) [Mass/Vol]Or dered By: Bonnie Hendricks on 12-12-2022 MCHC (RBC) [Mass/Vol] 32.8 g/dL 32.0-35.0 [facility] MCV Auto (RBC) [Entitic vol] Ordered By: Bonnie Hendricks on 12-12-2022 MCV (RBC) [Entitic vol] 87.1 fL 80-100 [facility] Monocytes Auto (Bld) [#/Vol] Ordered By: Bonnie Hendricks on 12-12-2022 Monocytes (Bld) [#/Vol] 0.4 10*3/uL 0.0-0.8 [facility] Monocytes/100 WBC Auto (Bld) Ordered By: Bonnie Hendricks on 12-12-2022 Monocytes/100 WBC (Bld) 8.4 % . [facility] Neutrophils Auto (Bld) [#/Vo l]Ordered By: Bonnie Hendricks on 12-12-2022 Neutrophils (Bld) [#/Vol] 2.8 10*3/uL 1.8-7.7 [facility] Neutrophils/100 WBC Auto (Bl d)Ordered By: Bonnie Hendricks on 12-12-2022 Neutrophils/100 WBC (Bld) 56.9 % . [facility] No Panel InformationOrdered By: Bonnie Hendricks on 12-12-2022 Estimated GFR (CKD-EPI) > 60.0 mL/Min [facility] Creatinine Clearance (Chem N/A [facility] Nucleated erythrocytes [Pres ence] in Blood by Automated countOrdered By: Bonnie Hendricks on 12-12-2022 Nucleated RBC Auto Ql (Bld) 0.2 /100{WBC} 0-0.5 [facility] Platelet mean volume Auto (B ld) [Entitic vol]Ordered By: Bonnie Hendricks on 12-12-2022 Platelet mean volume (Bld) [Entitic vol] 6.9 fL 6.3-10.7 [facility] Platelets Auto (Bld) [#/Vol] Ordered By: Bonnie Hendricks on 12-12-2022 Platelets (Bld) [#/Vol] 315 10*3/uL 150-450 [facility] Potassium [Moles/volume] in Serum or PlasmaOrdered By: Bonnie Hendricks on 12-12-2022 Potassium [Moles/Vol] 4.3 mmol/L 3.5-5.1 [facility] Protein [Mass/volume] in Ser um or PlasmaOrdered By: Bonnie Hendricks on 12-12-2022 Protein [Mass/Vol] 7.8 g/dL 6.4-8.9 [facility] RBC Auto (Bld) [#/Vol]Ordere d By: Bonnie Hendricks on 12-12-2022 RBC (Bld) [#/Vol] 4.04 10*6/uL 3.60-5.00 [facility] Serum or plasma albumin/glob ulin mass ratioOrdered By: Bonnie Hendricks on 12-12-2022 Albumin/Globulin [Mass ratio] 1.0 {ratio} [facility] Serum or plasma anion gap de terminationOrdered By: Bonnie Hendricks on 12-12-2022 Anion gap [Moles/Vol] 10.2 mmol/L 6.0-15.0 [facility] Serum or plasma cancer antig en 125 (CA-125) measurement (units/volume)Ordered By: Bonnie Hendricks on 12-12-2022 Cancer Ag 125 Qn 19.0 [arb'U]/mL 0.0-38.1 [facility] Comment on above: [facility] El ectrochemiluminescence Immunoassay(ECLIA)Values obtained with different assay methods or kits cannotbe used interchangeably. Results cannot be interpreted asabsolute evidence of the presence or absence of malignantdisease.Performed at: [facility] [id number] Director: Adrian Coello PhD, Phone: [phone] Sodium [Moles/volume] in Ser um or PlasmaOrdered By: Bonnie Hendricks on 12-12-2022 Sodium [Moles/Vol] 137 mmol/L 136-145 [facility] Urea nitrogen [Mass/volume] in Serum or PlasmaOrdered By: Bonnie Hendricks on 12-12-2022 Urea nitrogen [Mass/Vol] 15 mg/dL 7-25 [facility] WBC Auto (Bld) [#/Vol]Ordere d By: Bonnie Hendricks on 12-12-2022 WBC (Bld) [#/Vol] 4.8 10*3/uL 3.8-11.6 [facility] CULTURE URINEon 09-19-2022 CULTURE URINE Isolate 1 Escherichia coli >100,000 cfu/mL of ORGANISM 1 Escherichia coli ANTIBIOTIC M.I.C RX STATUS Ampicillin 4 S F Ampicillin/Sulbactam <=2 S F Piperacillin/Tazobactam <=4 S F Cefazolin <=4 S F Ceftazidime <=1 S F Ceftriaxone <=1 S F Ertapenem <=0.5 S F Imipenem <=0.25 S F Amikacin <=2 S F Gentamicin <=1 S F Tobramycin <=1 S F Ciprofloxacin <=0.25 S F Levofloxacin <=0.12 S F Nitrofurantoin <=16 S F Trimethoprim/Sulfamethoxa zole <=20 S F Normal [facility] Comment on above: Performed By: #### C RP, CMP #### [facility] [address] [place] [address] Dr. Sung Moore CBC AUTO DIFFon 09-16-2022 BASO # 0.0 103/ul Normal 0.0-0.1 [facility] Comment on above: Performed By: #### C RP, CMP #### [facility] [address] [place] [address] Dr. Sung Moore Basophils/100 WBC (Bld) 0.3 % Normal 0.2-2.0 [facility] Comment on above: Performed By: #### C RP, CMP #### [facility] [address] [place] [address] Dr. Sung Moore EO # 0.2 103/ul Normal 0.0-0.7 [facility] Comment on above: Performed By: #### C RP, CMP #### [facility] [address] [place] [address] Dr. Sung Moore Eosinophils/100 WBC (Bld) 3.4 % Normal 0.9-7.0 [facility] Comment on above: Performed By: #### C RP, CMP #### [facility] [address] [place] [address] Dr. Sung Moore Erythrocyte distribution width (RBC) [Ratio] 16.1 % Critically high 11.0-15.0 [facility] Comment on above: Performed By: #### C RP, CMP #### [facility] [address] [place] [address] Dr. Sung Moore Hematocrit (Bld) [Volume fraction] 37.0 % Normal 36.0-48.0 [facility] Comment on above: Performed By: #### C RP, CMP #### [facility] [address] [place] [address] Dr. Sung Moore Hemoglobin (Bld) [Mass/Vol] 12.1 g/dL Normal 12.0-16.0 [facility] Comment on above: Performed By: #### C RP, CMP #### [facility] [address] [place] [address] Dr. Sung Moore IG # 0.02 10e3/ul Normal 0.00-0.03 [facility] Comment on above: Performed By: #### C RP, CMP #### [facility] [address] [place] [address] Dr. Sung Moore IG % 0.3 % Normal 0.0-0.5 [facility] Comment on above: Performed By: #### C RP, CMP #### [facility] [address] [place] [address] Dr. Sung Moore LYMPH # 2.0 103/ul Normal 1.2-3.8 [facility] Comment on above: Performed By: #### C RP, CMP #### [facility] [address] [place] [address] Dr. Sung Moore Lymphocytes/100 WBC (Bld) 29.0 % Normal 20.5-60.0 [facility] Comment on above: Performed By: #### C RP, CMP #### [facility] [address] [place] [address] Dr. Sung Moore MANUAL DIFF REQ NO Normal [facility] Comment on above: Performed By: #### C RP, CMP #### [facility] [address] [place] [address] Dr. Sung Moore MCH (RBC) [Entitic mass] 28.6 pg Normal 26.7-34.0 [facility] Comment on above: Performed By: #### C RP, CMP #### [facility] [address] [place] [address] Dr. Sung Moore MCHC (RBC) [Mass/Vol] 32.7 g/dL Normal 29.9-35.2 [facility] Comment on above: Performed By: #### C RP, CMP #### [facility] [address] [place] [address] Dr. Sung Moore MCV (RBC) [Entitic vol] 87.5 fL Normal 81.0-99.0 [facility] Comment on above: Performed By: #### C RP, CMP #### [facility] [address] [place] [address] Dr. Sung Moore MONO # 0.5 103/ul Normal 0.3-0.8 [facility] Comment on above: Performed By: #### C RP, CMP #### [facility] [address] [place] [address] Dr. Sung Moore Monocytes/100 WBC (Bld) 6.7 % Normal 1.7-12.0 [facility] Comment on above: Performed By: #### C RP, CMP #### [facility] [address] [place] [address] Dr. Sung Moore NEUT # 4.1 103/ul Normal 1.4-6.5 [facility] Comment on above: Performed By: #### C RP, CMP #### [facility] [address] [place] [address] Dr. Sung Moore Neutrophils/100 WBC (Bld) 60.3 % Normal 43.0-75.0 [facility] Comment on above: Performed By: #### C RP, CMP #### [facility] [address] [place] [address] Dr. Sung Moore Platelet mean volume (Bld) [Entitic vol] 8.9 fL Critically low 9.5-13.5 [facility] Comment on above: Performed By: #### C RP, CMP #### [facility] [address] [place] [address] Dr. Sung Moore PLT 255 103/ul Normal 150-450 [facility] Comment on above: Performed By: #### C RP, CMP #### [facility] [address] [address] [address] Sung Moore RBC 4.23 106/ul Normal 4.20-5.40 [facility] Comment on above: Performed By: #### C RP, CMP #### [facility] [address] [place] [address] Dr. Sung Moore WBC 6.8 103/ul Normal 4.0-11.0 [facility] Comment on above: Performed By: #### C RP, CMP #### [facility] [address] [place] [address] Dr. Sung Moore ER URINE PROFILEon 3 Bilirubin Ql (U) Negative Normal NEGATIVE [facility] Comment on above: Performed By: #### C MP, BNP #### [facility] [address] [place] [address] Dr. Sung Moore Clarity (U) SL CLOUDY Abnormal CLEAR [facility] Comment on above: Performed By: #### C MP, BNP #### [facility] [address] [address] [address] Sung Moore Color (U) YELLOW Normal YELLOW [facility] Comment on above: Performed By: #### C MP, BNP #### [facility] [address] [place] [address] Dr. Sung Moore ERUAHD A micrscopic examina tion will be performed if indicated. Normal [facility] Comment on above: Performed By: #### C MP, BNP #### [facility] [address] [place] [address] Dr. Sung Moore Glucose Ql (U) Negative Normal NEGATIVE [facility] Comment on above: Performed By: #### C MP, BNP #### [facility] [address] [place] [address] Dr. Sung Moore Hemoglobin Ql (U) SMALL Abnormal NEGATIVE [facility] Comment on above: Performed By: #### C MP, BNP #### [facility] [address] [place] [address] Dr. Sung Moore Ketones Ql (U) Negative Normal NEGATIVE [facility] Comment on above: Performed By: #### C MP, BNP #### [facility] [address] [place] [address] Dr. Sung Moore LEUKOCYTES LARGE Abnormal NEGATIVE [facility] Comment on above: Performed By: #### C MP, BNP #### [facility] [address] [place] [address] Dr. Sung Moore Nitrite Ql (U) Positive Abnormal NEGATIVE [facility] Comment on above: Performed By: #### C MP, BNP #### [facility] [address] [place] [address] Dr. Sung Moore pH (U) 8.5 [pH] Normal 5-9 [facility] Comment on above: Performed By: #### C MP, BNP #### [facility] [address] [place] [address] Dr. Sung Moore SPEC GRAVITY 1.010 Normal 1.005-<=1. 025 [facility] Comment on above: Performed By: #### C MP, BNP #### [facility] [address] [place] [address] Dr. Sung Moore UA PROTEIN TRACE Normal NEGATIVE/ TRACE [facility] Comment on above: Performed By: #### C MP, BNP #### [facility] [address] [place] [address] Dr. Sung Moore UR MICRO IND INDICATED Normal [facility] Comment on above: Performed By: #### C MP, BNP #### [facility] [address] [place] [address] Dr. Sung Moore Urobilinogen Qn (U) 0.2 {David'U}/dL Normal 0.2 - 1. 0 [facility] Comment on above: Performed By: #### C MP, BNP #### [facility] [address] [place] [address] Dr. Sung Moore LACTATE/LACTIC ACIDon 2022 Lactate [Moles/Vol] 1.0 mmol/L Normal 0.4-2.0 [facility] Comment on above: Performed By: #### L ACT #### [facility] [address] [place] [address] Dr. Sung Moore PROF 14(COMP METB)on 023 Albumin [Mass/Vol] 3.5 g/dL Normal 3.4-5.0 [facility] Comment on above: Performed By: #### C MP, BNP #### [facility] [address] [place] [address] Dr. Sung Moore Albumin/Globulin [Mass ratio] 0.9 {ratio} Normal [facility] Comment on above: Performed By: #### C MP, BNP #### [facility] [address] [place] [address] Dr. Sung Moore ALP [Catalytic activity/Vol] 113 U/L Normal 46-116 [facility] Comment on above: Performed By: #### C MP, BNP #### [facility] [address] [place] [address] Dr. Sung Moore ALT [Catalytic activity/Vol] 14 U/L Normal 14-59 [facility] Comment on above: Performed By: #### C MP, BNP #### [facility] [address] [place] [address] Dr. Sung Moore Anion gap [Moles/Vol] 13.5 mmol/L Normal [facility] Comment on above: Performed By: #### C MP, BNP #### [facility] [address] [place] [address] Dr. Sung Moore AST [Catalytic activity/Vol] 9 U/L Critically low 15-37 [facility] Comment on above: Performed By: #### C MP, BNP #### [facility] [address] [place] [address] Dr. Sung Moore Bilirubin [Mass/Vol] 0.3 mg/dL Normal 0.2-1.0 [facility] Comment on above: Performed By: #### C MP, BNP #### [facility] [address] [place] [address] Dr. Sung Moore Calcium [Mass/Vol] 9.0 mg/dL Normal 8.5-10.1 [facility] Comment on above: Performed By: #### C MP, BNP #### [facility] [address] [address] [address] Sung Moore Chloride [Moles/Vol] 104 mmol/L Normal 98-107 [facility] Comment on above: Performed By: #### C MP, BNP #### [facility] [address] [place] [address] Dr. Sung Moore CO2 [Moles/Vol] 27.3 mmol/L Normal 21.0-32.0 [facility] Comment on above: Performed By: #### C MP, BNP #### [facility] [address] [place] [address] Dr. Sung Moore Creatinine [Mass/Vol] 0.89 mg/dL Normal 0.55-1.02 [facility] Comment on above: Performed By: #### C MP, BNP #### [facility] [address] [place] [address] Dr. Sung Moore EGFR-AF SOUTH AFRICAN >60 Normal >=60 [facility] Comment on above: Performed By: #### C MP, BNP #### [facility] [address] [place] [address] Dr. Sung Moore EGFR-NON AF S[place]ICAN >60 Normal >=60 [facility] Comment on above: Performed By: #### C MP, BNP #### [facility] [address] [place] [address] Dr. Sung Moore Globulin (S) [Mass/Vol] 4.0 g/dL Normal [facility] Comment on above: Performed By: #### C MP, BNP #### [facility] [address] [place] [address] Dr. Sung Moore Glucose [Mass/Vol] 119 mg/dL Critically high 74-106 [facility] Comment on above: Performed By: #### C MP, BNP #### [facility] [address] [address] [address] Sung Moore Potassium [Moles/Vol] 3.8 mmol/L Normal 3.5-5.1 [facility] Comment on above: Performed By: #### C MP, BNP #### [facility] [address] [place] [address] Dr. Sung Moore Protein [Mass/Vol] 7.5 g/dL Normal 6.4-8.2 [facility] Comment on above: Performed By: #### C MP, BNP #### [facility] [address] [address] [address] Sung Moore Sodium [Moles/Vol] 141 mmol/L Normal 136-145 [facility] Comment on above: Performed By: #### C MP, BNP #### [facility] [address] [place] [address] Dr. Sung Moore Urea nitrogen [Mass/Vol] 22.0 mg/dL Critically high 7.0-18.0 [facility] Comment on above: Performed By: #### C MP, BNP #### [facility] [address] [place] [address] Dr. Sung Moore Urea nitrogen/Creatinine [Mass ratio] 24.7 mg/mg Normal [facility] Comment on above: Performed By: #### C MP, BNP #### [facility] [address] [place] [address] Dr. Sung Moore URINE MICROSCOPIC ONLYon BACTERIA LARGE Abnormal NONE SEEN [facility] Comment on above: Performed By: #### C MP, BNP #### [facility] [address] [place] [address] Dr. Sung Moore Bacteria identified Cx Nom (U) INDICATED Normal [facility] Comment on above: Performed By: #### C MP, BNP #### [facility] [address] [place] [address] Dr. Sung Moore CAST NONE SEEN Normal NONE SEEN [facility] Comment on above: Performed By: #### C MP, BNP #### [facility] [address] [address] [address] Sung Moore Crystals LM Nom (Urine sed) NONE SEEN Normal NONE SEEN [facility] Comment on above: Performed By: #### C MP, BNP #### [facility] [address] [address] [address] Sung Moore Epithelial cells LM Ql (Urine sed) FEW Abnormal NONE SEEN /RARE [facility] Comment on above: Performed By: #### C MP, BNP #### [facility] [address] [address] [address] Sung Moore MUCOUS TRACE Abnormal NONE SEEN [facility] Comment on above: Performed By: #### C MP, BNP #### [facility] [address] [place] [address] Dr. Snug Moore RBC 10-20 Abnormal 0-2 [facility] Comment on above: Performed By: #### C MP, BNP #### [facility] [address] [place] [address] Dr. Sung Moore WBC (U) [#/Vol] /uL Abnormal NONE SEEN [facility] Comment on above: Performed By: #### C MP, BNP #### [facility] [address] [place] [address] Dr. Sung Moore Albumin [Mass/volume] in Ser um or PlasmaOrdered By: Bonnie Hendricks on 05-16-2022 Albumin [Mass/Vol] 3.5 g/dL 3.2-5.5 [facility] Basophils Auto (Bld) [#/Vol] Ordered By: Bonnie Hendricks on 05-16-2022 Basophils (Bld) [#/Vol] 0.0 10*3/uL 0.0-0.2 [facility] Basophils/100 WBC Auto (Bld) Ordered By: Bonnie Hendricks on 05-16-2022 Basophils/100 WBC (Bld) 0.4 % . [facility] Creatinine and Glomerular fi ltration rate.predicted panel (S/P/Bld)Ordered By: Bonnie Hendricks on 05-16-2022 Creatinine [Mass/Vol] 0.70 mg/dL 0.44-1.03 [facility] Eosinophils Auto (Bld) [#/Vo l]Ordered By: Bonnie Hendricks on 05-16-2022 Eosinophils (Bld) [#/Vol] 0.2 10*3/uL 0.0-0.45 [facility] Eosinophils/100 WBC Auto (Bl d)Ordered By: Bonnie Hendricks on 05-16-2022 Eosinophils/100 WBC (Bld) 3.0 % . [facility] Erythrocyte distribution wid th Auto (RBC) [Ratio]Ordered By: Bonnie Hendricks on 05-16-2022 Erythrocyte distribution width (RBC) [Ratio] 19.5 % 11.9-15.3 [facility] Estimated glomerular filtrat ion rate (GFR) non- AmericanOrdered By: Bonnie Hendricks on 05-16-2022 GFR/1.73 sq M.predicted among non-blacks MDRD (S/P/Bld) [Vol rate/Area] > 60 mL/Min [facility] Globulin Calc (S) [Mass/Vol] Ordered By: Bonnie Hendricks on 05-16-2022 Globulin (S) [Mass/Vol] 4.8 g/dL [facility] Hematocrit Auto (Bld) [Volum e fraction]Ordered By: Bonnie Hendricks on 05-16-2022 Hematocrit (Bld) [Volume fraction] 34.9 % 34.0-46.4 [facility] Hemoglobin [Mass/volume] in BloodOrdered By: Bonnie Hendricks on 05-16-2022 Hemoglobin (Bld) [Mass/Vol] 11.2 g/dL 11.8-15.4 [facility] Leukocytes [#/volume] correc blanca for nucleated erythrocytes in Blood by Automated counOrdered By: Bonnie Hendricks on 05-16-2022 WBC corrected for nucl RBC Auto (Bld) [#/Vol] 5.2 10*3/uL 3.8-11.6 [facility] Lymphocytes Auto (Bld) [#/Vo l]Ordered By: Bonnie Hendricks on 05-16-2022 Lymphocytes (Bld) [#/Vol] 1.4 10*3/uL 1.00-4.8 [facility] Lymphocytes/100 WBC Auto (Bl d)Ordered By: Bonnie Hendricks on 05-16-2022 Lymphocytes/100 WBC (Bld) 27.8 % . [facility] MCH Auto (RBC) [Entitic mass ]Ordered By: Bonnie Hendricks on 05-16-2022 MCH (RBC) [Entitic mass] 26.2 pg 24.7-34.3 [facility] MCHC Auto (RBC) [Mass/Vol]Or dered By: Bonnie Hendricks on 05-16-2022 MCHC (RBC) [Mass/Vol] 32.1 g/dL 32.0-35.0 [facility] MCV Auto (RBC) [Entitic vol] Ordered By: Bonnie Hendricks on 05-16-2022 MCV (RBC) [Entitic vol] 81.6 fL 80-100 [facility] Monocytes Auto (Bld) [#/Vol] Ordered By: Bonnie Hendricks on 05-16-2022 Monocytes (Bld) [#/Vol] 0.3 10*3/uL 0.0-0.8 [facility] Monocytes/100 WBC Auto (Bld) Ordered By: Bonnie Hendricks on 05-16-2022 Monocytes/100 WBC (Bld) 6.3 % . [facility] Neutrophils Auto (Bld) [#/Vo l]Ordered By: Bonnie Hendricks on 05-16-2022 Neutrophils (Bld) [#/Vol] 3.2 10*3/uL 1.8-7.7 [facility] Neutrophils/100 WBC Auto (Bl d)Ordered By: Bonnie Hendricks on 05-16-2022 Neutrophils/100 WBC (Bld) 62.5 % . [facility] No Panel InformationOrdered By: Bonnie Hendricks on 05-16-2022 Estimated GFR () > 60 mL/Min [facility] Comment on above: GFR estimated refere nce range: According to KDOQI guidelines, <60 ml/min/1.73m2 is sufficient to diagnose a patient with chronic kidney disease. Pharmacy Creatinine Clearance (Chem N/A [facility] Nucleated erythrocytes [Pres ence] in Blood by Automated countOrdered By: Bonnie Hendricks on 05-16-2022 Nucleated RBC Auto Ql (Bld) 0.1 /100{WBC} 0-0.5 [facility] Platelet mean volume Auto (B ld) [Entitic vol]Ordered By: Bonnie Hendricks on 05-16-2022 Platelet mean volume (Bld) [Entitic vol] 7.3 fL 6.3-10.7 [facility] Platelets Auto (Bld) [#/Vol] Ordered By: Bonnie Hendricks on 05-16-2022 Platelets (Bld) [#/Vol] 303 10*3/uL 150-450 [facility] Protein [Mass/volume] in Ser um or PlasmaOrdered By: Bonnie Hendricks on 05-16-2022 Protein [Mass/Vol] 8.3 g/dL 6.1-7.9 [facility] RBC Auto (Bld) [#/Vol]Ordere d By: Bonnie Hendricks on 05-16-2022 RBC (Bld) [#/Vol] 4.28 10*6/uL 3.60-5.00 [facility] Serum or plasma alanine de guzman otransferase measurement without P-5'-P (enzymatic activiOrdered By: Bonnie Hendricks on 05-16-2022 ALT No additional P-5'-P [Catalytic activity/Vol] 15 U/L 1060 [facility] Serum or plasma albumin/glob ulin mass ratioOrdered By: Bonnie Hendricks on 05-16-2022 Albumin/Globulin [Mass ratio] 0.7 {ratio} [facility] Serum or plasma alkaline david sphatase measurement (enzymatic activity/volume)Ordered By: Bonnie Hendricks on 05-16-2022 ALP [Catalytic activity/Vol] 96 U/L 32-92 [facility] Serum or plasma anion gap de terminationOrdered By: Bonnie Hendricks on 05-16-2022 Anion gap [Moles/Vol] 11.0 mmol/L 6.0-15.0 [facility] Serum or plasma aspartate am inotransferase measurement (enzymatic activity/volume)Ordered By: Bonnie Hendricks on 05-16-2022 AST [Catalytic activity/Vol] 18 U/L 1042 [facility] Serum or plasma calcium elias urement (mass/volume)Ordered By: Bonnie Hendricks on 05-16-2022 Calcium [Mass/Vol] 9.2 mg/dL 8.2-10.2 [facility] Serum or plasma cancer antig en 125 (CA-125) measurement (units/volume)Ordered By: Bonnie Hendricks on 05-16-2022 Cancer Ag 125 Qn 18.3 [arb'U]/mL 0.0-38.1 [facility] Comment on above: [facility] El ectrochemiluminescence Immunoassay(ECLIA)Values obtained with different assay methods or kits cannotbe used interchangeably. Results cannot be interpreted asabsolute evidence of the presence or absence of malignantdisease.Performed at: [facility] [id number] Director: Adrian Coello PhD, Phone: [phone] Serum or plasma chloride liset surement (moles/volume)Ordered By: Bonnie Hendricks on 05-16-2022 Chloride [Moles/Vol] 102 mmol/L 95-114 [facility] Serum or plasma glucose elias urement (mass/volume)Ordered By: Bonnie Hendricks on 05-16-2022 Glucose [Mass/Vol] 104 mg/dL 70-100 [facility] Comment on above: ADA recommended refe rence rangeRandom Glucose Reference Range is dependent on time and content of last meal. Glucose of more than 200 mg/dL in a nonstressed, ambulatory subject supports the diagnosis of Diabetes Mellitus. Serum or plasma potassium me asurement (moles/volume)Ordered By: Bonnie Hendricks on 05-16-2022 Potassium [Moles/Vol] 4.1 mmol/L 3.5-5.1 [facility] Serum or plasma sodium measu rement (moles/volume)Ordered By: Bonnie Hendricks on 05-16-2022 Sodium [Moles/Vol] 135 mmol/L 136-146 [facility] Serum or plasma total biliru bin measurement (mass/volume)Ordered By: Bonnie Hendricks on 05-16-2022 Bilirubin [Mass/Vol] 0.5 mg/dL 0.3-1.2 [facility] Serum or plasma total carbon dioxide measurement (moles/volume)Ordered By: Bonnie Hendricks on 05-16-2022 CO2 [Moles/Vol] 26.1 mmol/L 22.0-30.0 [facility] Serum or plasma urea nitroge n measurement (mass/volume)Ordered By: Bonnie Eladio on 05-16-2022 Urea nitrogen [Mass/Vol] 13 mg/dL 03-10 [facility] WBC Auto (Bld) [#/Vol]Ordere d By: Bonnie Hendricks on 05-16-2022 WBC (Bld) [#/Vol] 5.2 10*3/uL 3.8-11.6 [facility] CBC AUTO DIFFon 03-22-2022 BASO # 0.0 103/ul Normal 0.0-0.1 [facility] Comment on above: Performed By: #### C MP, BNP #### [facility] [address] [address] [address] Sung Moore Basophils/100 WBC (Bld) 0.3 % Normal 0.2-2.0 [facility] Comment on above: Performed By: #### C MP, BNP #### [facility] [address] [address] [address] Sung Moore EO # 0.4 103/ul Normal 0.0-0.7 [facility] Comment on above: Performed By: #### C MP, BNP #### [facility] [address] [address] [address] Sung Moore Eosinophils/100 WBC (Bld) 5.6 % Normal 0.9-7.0 [facility] Comment on above: Performed By: #### C MP, BNP #### [facility] [address] [address] [address] Sung Moore Erythrocyte distribution width (RBC) [Ratio] 16.0 % Critically high 11.0-15.0 [facility] Comment on above: Performed By: #### C MP, BNP #### [facility] [address] [place] [address] Dr. Sung Moore Hematocrit (Bld) [Volume fraction] 27.2 % Critically low 36.0-48.0 [facility] Comment on above: Performed By: #### C MP, BNP #### [facility] [address] [address] [address] Sung Moore Hemoglobin (Bld) [Mass/Vol] 8.6 g/dL Critically low 12.0-16.0 [facility] Comment on above: Performed By: #### C MP, BNP #### [facility] [address] [place] [address] Dr. Sung Moore IG # 0.03 10e3/ul Normal 0.00-0.03 [facility] Comment on above: Performed By: #### C MP, BNP #### [facility] [address] [place] [address] Dr. Sung Moore IG % 0.5 % Normal 0.0-0.5 [facility] Comment on above: Performed By: #### C MP, BNP #### [facility] [address] [place] [address] Dr. Sung Moore LYMPH # 1.8 103/ul Normal 1.2-3.8 [facility] Comment on above: Performed By: #### C MP, BNP #### [facility] [address] [place] [address] Dr. Sung Moore Lymphocytes/100 WBC (Bld) 27.2 % Normal 20.5-60.0 [facility] Comment on above: Performed By: #### C MP, BNP #### [facility] [address] [place] [address] Dr. Sung Moore MANUAL DIFF REQ NO Normal [facility] Comment on above: Performed By: #### C MP, BNP #### [facility] [address] [place] [address] Dr. Sung Moore MCH (RBC) [Entitic mass] 25.9 pg Critically low 26.7-34.0 [facility] Comment on above: Performed By: #### C MP, BNP #### [facility] [address] [place] [address] Dr. Sung Moore MCHC (RBC) [Mass/Vol] 31.6 g/dL Normal 29.9-35.2 [facility] Comment on above: Performed By: #### C MP, BNP #### [facility] [address] [place] [address] Dr. Sung Moore MCV (RBC) [Entitic vol] 81.9 fL Normal 81.0-99.0 [facility] Comment on above: Performed By: #### C MP, BNP #### [facility] [address] [place] [address] Dr. Sung Moore MONO # 0.7 103/ul Normal 0.3-0.8 [facility] Comment on above: Performed By: #### C MP, BNP #### [facility] [address] [place] [address] Dr. Sung Moore Monocytes/100 WBC (Bld) 10.2 % Normal 1.7-12.0 [facility] Comment on above: Performed By: #### C MP, BNP #### [facility] [address] [place] [address] Dr. Sung Moore NEUT # 3.7 103/ul Normal 1.4-6.5 [facility] Comment on above: Performed By: #### C MP, BNP #### [facility] [address] [place] [address] Dr. Sung Moore Neutrophils/100 WBC (Bld) 56.2 % Normal 43.0-75.0 [facility] Comment on above: Performed By: #### C MP, BNP #### [facility] [address] [place] [address] Dr. Sung Moore Platelet mean volume (Bld) [Entitic vol] 8.7 fL Critically low 9.5-13.5 [facility] Comment on above: Performed By: #### C MP, BNP #### [facility] [address] [place] [address] Dr. Sung Moore PLT 370 103/ul Normal 150-450 [facility] Comment on above: Performed By: #### C MP, BNP #### [facility] [address] [place] [address] Dr. Sung Moore RBC 3.32 106/ul Critically low 4.20-5.40 [facility] Comment on above: Performed By: #### C MP, BNP #### [facility] [address] [place] [address] Dr. Sung Moore WBC 6.6 103/ul Normal 4.0-11.0 [facility] Comment on above: Performed By: #### C MP, BNP #### [facility] [address] [place] [address] Dr. Sung Moore CRPon 03-22-2022 CRP 13.2 mg/dL Critically high <=1.0 [facility] Comment on above: Performed By: #### C RP, CMP #### [facility] [address] [place] [address] Dr. Sung Moore CULTURE URINEon 03-22-2022 CULTURE URINE Isolate 1 Escherichia coli >100,000 cfu/mL of ORGANISM 1 Escherichia coli ANTIBIOTIC M.I.C RX STATUS Ampicillin <=2 S F Ampicillin/Sulbactam <=2 S F Piperacillin/Tazobactam <=4 S F Cefazolin <=4 S F Ceftazidime <=1 S F Ceftriaxone <=1 S F Ertapenem <=0.5 S F Imipenem <=0.25 S F Amikacin <=2 S F Gentamicin <=1 S F Tobramycin <=1 S F Ciprofloxacin <=0.25 S F Levofloxacin <=0.12 S F Nitrofurantoin <=16 S F Trimethoprim/Sulfamethoxa zole <=20 S F Normal [facility] Comment on above: Performed By: #### C RP, CMP #### [facility] [address] [place] [address] Dr. Sung Moore PROF 14(COMP METB)on 022 Albumin [Mass/Vol] 2.0 g/dL Critically low 3.4-5.0 [facility] Comment on above: Performed By: #### C RP, CMP #### [facility] [address] [place] [address] Dr. Sung Moore Albumin/Globulin [Mass ratio] 0.4 {ratio} Normal [facility] Comment on above: Performed By: #### C RP, CMP #### [facility] [address] [place] [address] Dr. Sung Moore ALP [Catalytic activity/Vol] 115 U/L Normal 46-116 [facility] Comment on above: Performed By: #### C RP, CMP #### [facility] [address] [address] [address] Sung Moore ALT [Catalytic activity/Vol] 21 U/L Normal 14-59 [facility] Comment on above: Performed By: #### C RP, CMP #### [facility] [address] [address] [address] Sung Moore Anion gap [Moles/Vol] 8.7 mmol/L Normal [facility] Comment on above: Performed By: #### C RP, CMP #### [facility] [address] [address] [address] Sung Moore AST [Catalytic activity/Vol] 25 U/L Normal 15-37 [facility] Comment on above: Performed By: #### C RP, CMP #### [facility] [address] [address] [address] Sung Moore Bilirubin [Mass/Vol] 0.2 mg/dL Normal 0.2-1.0 [facility] Comment on above: Performed By: #### C RP, CMP #### [facility] [address] [address] [address] Sung Moore Calcium [Mass/Vol] 8.5 mg/dL Normal 8.5-10.1 [facility] Comment on above: Performed By: #### C RP, CMP #### [facility] [address] [address] [address] Sung Moore Chloride [Moles/Vol] 105 mmol/L Normal 98-107 [facility] Comment on above: Performed By: #### C RP, CMP #### [facility] [address] [address] [address] Sung Moore CO2 [Moles/Vol] 26.2 mmol/L Normal 21.0-32.0 [facility] Comment on above: Performed By: #### C RP, CMP #### [facility] [address] [address] [address] Sung Moore Creatinine [Mass/Vol] 0.69 mg/dL Normal 0.55-1.02 [facility] Comment on above: Performed By: #### C RP, CMP #### [facility] [address] [address] [address] Sung Moore EGFR-AF SOUTH AFRICAN >60 Normal >=60 [facility] Comment on above: Performed By: #### C RP, CMP #### [facility] [address] [place] [address] Dr. Sung Moore EGFR-NON AF SOUTH AFRICAN >60 Normal >=60 [facility] Comment on above: Performed By: #### C RP, CMP #### [facility] [address] [address] [address] Sung Moore Globulin (S) [Mass/Vol] 5.0 g/dL Normal [facility] Comment on above: Performed By: #### C RP, CMP #### [facility] [address] [place] [address] Dr. Sung Moore Glucose [Mass/Vol] 101 mg/dL Normal 74-106 [facility] Comment on above: Performed By: #### C RP, CMP #### [facility] [address] [place] [address] Dr. Sung Moore Potassium [Moles/Vol] 3.9 mmol/L Normal 3.5-5.1 [facility] Comment on above: Performed By: #### C RP, CMP #### [facility] [address] [place] [address] Dr. Sung Moore Protein [Mass/Vol] 7.0 g/dL Normal 6.4-8.2 [facility] Comment on above: Performed By: #### C RP, CMP #### [facility] [address] [place] [address] Dr. Sung Moore Sodium [Moles/Vol] 136 mmol/L Normal 136-145 [facility] Comment on above: Performed By: #### C RP, CMP #### [facility] [address] [place] [address] Dr. Sung Moore Urea nitrogen [Mass/Vol] 15.0 mg/dL Normal 7.0-18.0 [facility] Comment on above: Performed By: #### C RP, CMP #### [facility] [address] [place] [address] Dr. Sung Moore Urea nitrogen/Creatinine [Mass ratio] 21.7 mg/mg Normal [facility] Comment on above: Performed By: #### C RP, CMP #### [facility] [address] [place] [address] Dr. Sung Moore CBC AUTO DIFFon 03-21-2022 BASO # 0.0 103/ul Normal 0.0-0.1 [facility] Comment on above: Performed By: #### C MP, BNP #### [facility] [address] [place] [address] Dr. Sung Moore Basophils/100 WBC (Bld) 0.3 % Normal 0.2-2.0 [facility] Comment on above: Performed By: #### C MP, BNP #### [facility] [address] [place] [address] Dr. Sung Moore EO # 0.3 103/ul Normal 0.0-0.7 [facility] Comment on above: Performed By: #### C MP, BNP #### [facility] [address] [place] [address] Dr. Snug Moore Eosinophils/100 WBC (Bld) 2.6 % Normal 0.9-7.0 [facility] Comment on above: Performed By: #### C MP, BNP #### [facility] [address] [place] [address] Dr. Sung Moore Erythrocyte distribution width (RBC) [Ratio] 15.7 % Critically high 11.0-15.0 [facility] Comment on above: Performed By: #### C MP, BNP #### [facility] [address] [place] [address] Dr. Sung Moore Hematocrit (Bld) [Volume fraction] 26.8 % Critically low 36.0-48.0 [facility] Comment on above: Performed By: #### C MP, BNP #### [facility] [address] [place] [address] Dr. Sung Moore Hemoglobin (Bld) [Mass/Vol] 8.6 g/dL Critically low 12.0-16.0 [facility] Comment on above: Performed By: #### C MP, BNP #### [facility] [address] [place] [address] Dr. Sung Moore IG # 0.06 10e3/ul Critically high 0.00-0.03 [facility] Comment on above: Performed By: #### C MP, BNP #### [facility] [address] [place] [address] Dr. Sung Moore IG % 0.6 % Critically high 0.0-0.5 [facility] Comment on above: Performed By: #### C MP, BNP #### [facility] [address] [place] [address] Dr. Sung Moore LYMPH # 1.7 103/ul Normal 1.2-3.8 [facility] Comment on above: Performed By: #### C MP, BNP #### [facility] [address] [place] [address] Dr. Sung Moore Lymphocytes/100 WBC (Bld) 17.4 % Critically low 20.5-60.0 [facility] Comment on above: Performed By: #### C MP, BNP #### [facility] [address] [place] [address] Dr. Sung Moore MANUAL DIFF REQ NO Normal [facility] Comment on above: Performed By: #### C MP, BNP #### [facility] [address] [place] [address] Dr. Sung Moore MCH (RBC) [Entitic mass] 26.3 pg Critically low 26.7-34.0 [facility] Comment on above: Performed By: #### C MP, BNP #### [facility] [address] [place] [address] Dr. Sung Moore MCHC (RBC) [Mass/Vol] 32.1 g/dL Normal 29.9-35.2 [facility] Comment on above: Performed By: #### C MP, BNP #### [facility] [address] [place] [address] Dr. Sung Moore MCV (RBC) [Entitic vol] 82.0 fL Normal 81.0-99.0 [facility] Comment on above: Performed By: #### C MP, BNP #### [facility] [address] [place] [address] Dr. Sung Moore MONO # 1.1 103/ul Critically high 0.3-0.8 [facility] Comment on above: Performed By: #### C MP, BNP #### [facility] [address] [place] [address] Dr. Sung Moore Monocytes/100 WBC (Bld) 11.4 % Normal 1.7-12.0 [facility] Comment on above: Performed By: #### C MP, BNP #### [facility] [address] [place] [address] Dr. Sung Moore NEUT # 6.7 103/ul Critically high 1.4-6.5 [facility] Comment on above: Performed By: #### C MP, BNP #### [facility] [address] [place] [address] Dr. Sung Moore Neutrophils/100 WBC (Bld) 67.7 % Normal 43.0-75.0 [facility] Comment on above: Performed By: #### C MP, BNP #### [facility] [address] [place] [address] Dr. Sung Moore Platelet mean volume (Bld) [Entitic vol] 8.8 fL Critically low 9.5-13.5 [facility] Comment on above: Performed By: #### C MP, BNP #### [facility] [address] [place] [address] Dr. Sung Moore PLT 301 103/ul Normal 150-450 [facility] Comment on above: Performed By: #### C MP, BNP #### [facility] [address] [place] [address] Dr. Sung Moore RBC 3.27 106/ul Critically low 4.20-5.40 [facility] Comment on above: Performed By: #### C MP, BNP #### [facility] [address] [place] [address] Dr. Sung Moore WBC 9.8 103/ul Normal 4.0-11.0 [facility] Comment on above: Performed By: #### C MP, BNP #### [facility] [address] [place] [address] Dr. Sung Moore CRPon 03-21-2022 CRP 19.1 mg/dL Critically high <=1.0 [facility] Comment on above: Performed By: #### C MP, BNP #### [facility] [address] [place] [address] Dr. Sung Moore PROF 14(COMP METB)on 022 Albumin [Mass/Vol] 1.9 g/dL Critically low 3.4-5.0 [facility] Comment on above: Performed By: #### C MP, BNP #### [facility] [address] [place] [address] Dr. Sung Moore Albumin/Globulin [Mass ratio] 0.4 {ratio} Normal [facility] Comment on above: Performed By: #### C MP, BNP #### [facility] [address] [place] [address] Dr. Sung Moore ALP [Catalytic activity/Vol] 91 U/L Normal 46-116 [facility] Comment on above: Performed By: #### C MP, BNP #### [facility] [address] [place] [address] Dr. Sung Moore ALT [Catalytic activity/Vol] 14 U/L Normal 14-59 [facility] Comment on above: Performed By: #### C MP, BNP #### [facility] [address] [place] [address] Dr. Sung Moore Anion gap [Moles/Vol] 13.1 mmol/L Normal [facility] Comment on above: Performed By: #### C MP, BNP #### [facility] [address] [place] [address] Dr. Sung Moore AST [Catalytic activity/Vol] 23 U/L Normal 15-37 [facility] Comment on above: Performed By: #### C MP, BNP #### [facility] [address] [address] [address] Sung Moore Bilirubin [Mass/Vol] 0.3 mg/dL Normal 0.2-1.0 [facility] Comment on above: Performed By: #### C MP, BNP #### [facility] [address] [place] [address] Dr. Sung Moore Calcium [Mass/Vol] 8.6 mg/dL Normal 8.5-10.1 [facility] Comment on above: Performed By: #### C MP, BNP #### [facility] [address] [place] [address] Dr. Sung Moore Chloride [Moles/Vol] 105 mmol/L Normal 98-107 [facility] Comment on above: Performed By: #### C MP, BNP #### [facility] [address] [place] [address] Dr. Sung Moore CO2 [Moles/Vol] 21.7 mmol/L Normal 21.0-32.0 [facility] Comment on above: Performed By: #### C MP, BNP #### [facility] [address] [place] [address] Dr. Sung Moore Creatinine [Mass/Vol] 0.67 mg/dL Normal 0.55-1.02 [facility] Comment on above: Performed By: #### C MP, BNP #### [facility] [address] [place] [address] Dr. Sung Moore EGFR-AF SOU[place] AFR[place] >60 Normal >=60 [facility] Comment on above: Performed By: #### C MP, BNP #### [facility] [address] [place] [address] Dr. Sung Moore EGFR-NON AF SOU[place]FR[place] >60 Normal >=60 [facility] Comment on above: Performed By: #### C MP, BNP #### [facility] [address] [place] [address] Dr. Sung Moore Globulin (S) [Mass/Vol] 5.0 g/dL Normal [facility] Comment on above: Performed By: #### C MP, BNP #### [facility] [address] [address] [address] Sung Moore Glucose [Mass/Vol] 107 mg/dL Critically high 74-[address] [facility] Comment on above: Performed By: #### C MP, BNP #### [facility] [address] [place] [address] Dr. Sung Moore Potassium [Moles/Vol] 3.8 mmol/L Normal 3.5-5.1 [facility] Comment on above: Performed By: #### C MP, BNP #### [facility] [address] [place] [address] Dr. Sung Moore Protein [Mass/Vol] 6.9 g/dL Normal 6.4-8.2 [facility] Comment on above: Performed By: #### C MP, BNP #### [facility] [address] [place] [address] Dr. Sung Moore Sodium [Moles/Vol] 136 mmol/L Normal 136-145 [facility] Comment on above: Performed By: #### C MP, BNP #### [facility] [address] [place] [address] Dr. Sung Moore Urea nitrogen [Mass/Vol] 10.0 mg/dL Normal 7.0-18.0 [facility] Comment on above: Performed By: #### C MP, BNP #### [facility] [address] [place] [address] Dr. Sung Moore Urea nitrogen/Creatinine [Mass ratio] 14.9 mg/mg Normal [facility] Comment on above: Performed By: #### C MP, BNP #### [facility] [address] [place] [address] Dr. Sung Moore CARDIAC CARL 3-6on 2 CK [Catalytic activity/Vol] 40 U/L Normal 26-192 [facility] Comment on above: Performed By: #### C RP, CMP #### [facility] [address] [place] [address] Dr. Sung Moore CK.MB [Mass/Vol] 0.81 ng/mL Normal <=3.60 [facility] Comment on above: Performed By: #### C RP, CMP #### [facility] [address] [place] [address] Dr. Sung Moore HSTROP 9.0 pg/mL Normal 4.0-51.3 [facility] Comment on above: Result Comment: CUT- OFF POINTS HAVE BEEN ESTABLISHED BASED ON THE FOURTH UNIVERSAL DEFINITIONS OF MYOCARDIAL INFARCTION. THE UPPER REFERENCE LIMIT (URL) OF TROPONIN, DEFINED THE 99TH PERCENTILE OF cTnI DISTRIBUTION IN A REFERENCE POPULATION, HAS BEEN CONFIRMED THE DECISION THRESHOLD FOR IN DIAGNOSIS. Performed By: #### C RP, CMP #### [facility] [address] [place] [address] Dr. Sung Moore CK [Catalytic activity/Vol] 42 U/L Normal 26-192 [facility] Comment on above: Performed By: #### C MP, BNP #### [facility] [address] [place] [address] Dr. Sung Moore CK.MB [Mass/Vol] 0.90 ng/mL Normal <=3.60 [facility] Comment on above: Performed By: #### C MP, BNP #### [facility] [address] [place] [address] Dr. Sung Moore HSTROP 9.7 pg/mL Normal 4.0-51.3 [facility] Comment on above: Result Comment: CUT- OFF POINTS HAVE BEEN ESTABLISHED BASED ON THE FOURTH UNIVERSAL DEFINITIONS OF MYOCARDIAL INFARCTION. THE UPPER REFERENCE LIMIT (URL) OF TROPONIN, DEFINED THE 99TH PERCENTILE OF cTnI DISTRIBUTION IN A REFERENCE POPULATION, HAS BEEN CONFIRMED THE DECISION THRESHOLD FOR IN DIAGNOSIS. Performed By: #### C MP, BNP #### [facility] [address] [place] [address] Dr. Sung Moore CARDIAC CARL ADMITon 022 CK [Catalytic activity/Vol] 44 U/L Normal 26-192 [facility] Comment on above: Performed By: #### L ACT #### [facility] [address] [place] [address] Dr. Sung Moore CK.MB [Mass/Vol] 0.47 ng/mL Normal <=3.60 [facility] Comment on above: Performed By: #### L ACT #### [facility] [address] [place] [address] Dr. Sung Moore HSTROP 9.1 pg/mL Normal 4.0-51.3 [facility] Comment on above: Result Comment: CUT- OFF POINTS HAVE BEEN ESTABLISHED BASED ON THE FOURTH UNIVERSAL DEFINITIONS OF MYOCARDIAL INFARCTION. THE UPPER REFERENCE LIMIT (URL) OF TROPONIN, DEFINED THE 99TH PERCENTILE OF cTnI DISTRIBUTION IN A REFERENCE POPULATION, HAS BEEN CONFIRMED THE DECISION THRESHOLD FOR IN DIAGNOSIS. Performed By: #### L ACT #### [facility] [address] [place] [address] Dr. Sung Moore CELESTINE 55 ng/mL Normal 9-82 [facility] Comment on above: Performed By: #### L ACT #### [facility] [address] [place] [address] Dr. Sung Moore CBC AUTO DIFFon 03-20-2022 BASO # 0.0 103/ul Normal 0.0-0.1 [facility] Comment on above: Performed By: #### C RP, CMP #### [facility] [address] [place] [address] Dr. Sung Moore Basophils/100 WBC (Bld) 0.2 % Normal 0.2-2.0 [facility] Comment on above: Performed By: #### C RP, CMP #### [facility] [address] [place] [address] Dr. Sung Moore EO # 0.1 103/ul Normal 0.0-0.7 [facility] Comment on above: Performed By: #### C RP, CMP #### [facility] [address] [place] [address] Dr. Sung Moore Eosinophils/100 WBC (Bld) 0.6 % Critically low 0.9-7.0 [facility] Comment on above: Performed By: #### C RP, CMP #### [facility] [address] [place] [address] Dr. Sung Moore Erythrocyte distribution width (RBC) [Ratio] 15.7 % Critically high 11.0-15.0 [facility] Comment on above: Performed By: #### C RP, CMP #### [facility] [address] [place] [address] Dr. Sung Moore Hematocrit (Bld) [Volume fraction] 25.7 % Critically low 36.0-48.0 [facility] Comment on above: Performed By: #### C RP, CMP #### [facility] [address] [place] [address] Dr. Sung Moore Hemoglobin (Bld) [Mass/Vol] 8.3 g/dL Critically low 12.0-16.0 [facility] Comment on above: Performed By: #### C RP, CMP #### [facility] [address] [place] [address] Dr. Sung Moore IG # 0.12 10e3/ul Critically high 0.00-0.03 [facility] Comment on above: Performed By: #### C RP, CMP #### [facility] [address] [place] [address] Dr. Sung Moore IG % 1.0 % Critically high 0.0-0.5 [facility] Comment on above: Performed By: #### C RP, CMP #### [facility] [address] [place] [address] Dr. Sung Moore LYMPH # 2.0 103/ul Normal 1.2-3.8 [facility] Comment on above: Performed By: #### C RP, CMP #### [facility] [address] [place] [address] Dr. Sung Moore Lymphocytes/100 WBC (Bld) 16.7 % Critically low 20.5-60.0 [facility] Comment on above: Performed By: #### C RP, CMP #### [facility] [address] [place] [address] Dr. Sung Moore MANUAL DIFF REQ NO Normal [facility] Comment on above: Performed By: #### C RP, CMP #### [facility] [address] [place] [address] Dr. Sung Moore MCH (RBC) [Entitic mass] 26.4 pg Critically low 26.7-34.0 [facility] Comment on above: Performed By: #### C RP, CMP #### [facility] [address] [address] [address] Sung Moore MCHC (RBC) [Mass/Vol] 32.3 g/dL Normal 29.9-35.2 [facility] Comment on above: Performed By: #### C RP, CMP #### [facility] [address] [place] [address] Dr. Sung Moore MCV (RBC) [Entitic vol] 81.8 fL Normal 81.0-99.0 [facility] Comment on above: Performed By: #### C RP, CMP #### [facility] [address] [place] [address] Dr. Sung Moore MONO # 1.3 103/ul Critically high 0.3-0.8 [facility] Comment on above: Performed By: #### C RP, CMP #### [facility] [address] [place] [address] Dr. Sung Moore Monocytes/100 WBC (Bld) 10.8 % Normal 1.7-12.0 [facility] Comment on above: Performed By: #### C RP, CMP #### [facility] [address] [place] [address] Dr. Sung Moore NEUT # 8.6 103/ul Critically high 1.4-6.5 [facility] Comment on above: Performed By: #### C RP, CMP #### [facility] [address] [place] [address] Dr. Sung Moore Neutrophils/100 WBC (Bld) 70.7 % Normal 43.0-75.0 [facility] Comment on above: Performed By: #### C RP, CMP #### [facility] [address] [place] [address] Dr. Sung Moore Platelet mean volume (Bld) [Entitic vol] 8.6 fL Critically low 9.5-13.5 [facility] Comment on above: Performed By: #### C RP, CMP #### [facility] [address] [address] [address] Sung Moore PLT 305 103/ul Normal 150-450 [facility] Comment on above: Performed By: #### C RP, CMP #### [facility] [address] [address] [address] Sung Moore RBC 3.14 106/ul Critically low 4.20-5.40 [facility] Comment on above: Performed By: #### C RP, CMP #### [facility] [address] [address] [address] Sung Moore WBC 12.1 103/ul Critically high 4.0-11.0 [facility] Comment on above: Performed By: #### C RP, CMP #### [facility] [address] [address] [address] Sung Moore BASO # 0.0 103/ul Normal 0.0-0.1 [facility] Comment on above: Performed By: #### C MP, BNP #### [facility] [address] [address] [address] Sung Moore Basophils/100 WBC (Bld) 0.1 % Critically low 0.2-2.0 [facility] Comment on above: Performed By: #### C MP, BNP #### [facility] [address] [address] [address] Sung Moore EO # 0.0 103/ul Normal 0.0-0.7 [facility] Comment on above: Performed By: #### C MP, BNP #### [facility] [address] [address] [address] Sung Moore Eosinophils/100 WBC (Bld) 0.2 % Critically low 0.9-7.0 [facility] Comment on above: Performed By: #### C MP, BNP #### [facility] [address] [address] [address] Sung Moore Erythrocyte distribution width (RBC) [Ratio] 15.6 % Critically high 11.0-15.0 [facility] Comment on above: Performed By: #### C MP, BNP #### [facility] [address] [address] [address] Sung Moore Hematocrit (Bld) [Volume fraction] 30.2 % Critically low 36.0-48.0 [facility] Comment on above: Performed By: #### C MP, BNP #### [facility] [address] [place] [address] Dr. Sung Moore Hemoglobin (Bld) [Mass/Vol] 9.7 g/dL Critically low 12.0-16.0 [facility] Comment on above: Performed By: #### C MP, BNP #### [facility] [address] [place] [address] Dr. Sung Moore IG # 0.10 10e3/ul Critically high 0.00-0.03 [facility] Comment on above: Performed By: #### C MP, BNP #### [facility] [address] [place] [address] Dr. Sung Moore IG % 0.7 % Critically high 0.0-0.5 [facility] Comment on above: Performed By: #### C MP, BNP #### [facility] [address] [place] [address] Dr. Sung Moore LYMPH # 1.8 103/ul Normal 1.2-3.8 [facility] Comment on above: Performed By: #### C MP, BNP #### [facility] [address] [place] [address] Dr. Sung Moore Lymphocytes/100 WBC (Bld) 11.9 % Critically low 20.5-60.0 [facility] Comment on above: Performed By: #### C MP, BNP #### [facility] [address] [place] [address] Dr. Sung Moore MANUAL DIFF REQ NO Normal [facility] Comment on above: Performed By: #### C MP, BNP #### [facility] [address] [place] [address] Dr. Sung Moore MCH (RBC) [Entitic mass] 25.9 pg Critically low 26.7-34.0 [facility] Comment on above: Performed By: #### C MP, BNP #### [facility] [address] [place] [address] Dr. Sung Moore MCHC (RBC) [Mass/Vol] 32.1 g/dL Normal 29.9-35.2 [facility] Comment on above: Performed By: #### C MP, BNP #### [facility] [address] [place] [address] Dr. Sung Moore MCV (RBC) [Entitic vol] 80.7 fL Critically low 81.0-99.0 [facility] Comment on above: Performed By: #### C MP, BNP #### [facility] [address] [place] [address] Dr. Sung Moore MONO # 1.4 103/ul Critically high 0.3-0.8 [facility] Comment on above: Performed By: #### C MP, BNP #### [facility] [address] [place] [address] Dr. Sung Moore Monocytes/100 WBC (Bld) 9.3 % Normal 1.7-12.0 [facility] Comment on above: Performed By: #### C MP, BNP #### [facility] [address] [place] [address] Dr. Sung Moore NEUT # 11.7 103/ul Critically high 1.4-6.5 [facility] Comment on above: Performed By: #### C MP, BNP #### [facility] [address] [place] [address] Dr. Sung Moore Neutrophils/100 WBC (Bld) 77.8 % Critically high 43.0-75.0 [facility] Comment on above: Performed By: #### C MP, BNP #### [facility] [address] [place] [address] Dr. Sung Moore Platelet mean volume (Bld) [Entitic vol] 8.5 fL Critically low 9.5-13.5 [facility] Comment on above: Performed By: #### C MP, BNP #### [facility] [address] [place] [address] Dr. Sung Moore PLT 342 103/ul Normal 150-450 [facility] Comment on above: Performed By: #### C MP, BNP #### [facility] [address] [place] [address] Dr. Sung Moore RBC 3.74 106/ul Critically low 4.20-5.40 [facility] Comment on above: Performed By: #### C MP, BNP #### [facility] [address] [address] [address] Sung Moore WBC 15.1 103/ul Critically high 4.0-11.0 [facility] Comment on above: Performed By: #### C MP, BNP #### [facility] [address] [address] [address] Sung Moore CRPon 03-20-2022 CRP 57.7 mg/dL Critically high <=1.0 [facility] Comment on above: Performed By: #### L ACT #### [facility] [address] HEAD WO CONon 03-20-2022 CT HEAD WO CON EXAM: CT HEAD WO CON 03/19/2022 10:52 PM EDT OH001 CLINICAL STATEMENT: Dizziness COMPARISON: No prior studies are available at the time of dictation. TECHNIQUE: Multiple axial images were obtained of the brain without intravenous contrast. AEC is utilized. 2-D reconstructed images are provided. 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 The ventricles and the cortical sulci have normal size contour and symmetry. There is no evidence for intracranial hemorrhage. There is no mass effect and or midline shift. No extra-axial collections. Bilateral cavernous segment internal carotid artery atherosclerotic calcifications. Limited evaluation of the orbits and the paranasal sinuses shows chronic right sphenoid sinus sinusitis. IMPRESSION: No acute intracranial abnormality. 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 FOLLOW-UP: Follow-up as clinically indicated. Electronically authenticated by: TARAS SAID Date: 2022-03-19 23:59 Normal [facility] Covid-19 PCR (CVDTB)on SARS-CoV-2 (COVID-19) RNA ROMY+probe Ql (Unsp spec) Not detected Normal NOT DETECTED [facility] Comment on above: Result Comment: When diagnostic testing is negative, the possibility of a false negative should be considered in the context of a patient's recent exposures and the presence of clinical signs and symptoms consistent with SARS-CoV-2. This test is not yet approved or cleared by the [place] FDA. When there are no FDA-approved or cleared tests available, and other criteria are met, FDA can make tests available under an emergency access mechanism called an Emergency Use Authorization (EUA). The EUA for this test is supported by the [place] of Health and Human Service's declaration that circumstances exist to justify the emergency use of in vitro diagnostics for the detection and/or diagnosis of the virus that causes COVID-19. This EUA will remain in effect for the duration of the COVID-19 declaration justifying emergency of IVDs, unless it is terminated or revoked by the FDA (after which the test may no longer be used). Performed By: #### C RP, CMP #### [facility] [address] [place] [address] Dr. Sung Moore ER URINE PROFILEon 2 Bilirubin Ql (U) Negative Normal NEGATIVE [facility] Comment on above: Performed By: #### C MP, BNP #### [facility] [address] [place] [address] Dr. Sung Moore Clarity (U) CLEAR Normal CLEAR [facility] Comment on above: Performed By: #### C MP, BNP #### [facility] [address] [place] [address] Dr. Sung Moore Color (U) YELLOW Normal YELLOW [facility] Comment on above: Performed By: #### C MP, BNP #### [facility] [address] [place] [address] Dr. Sung Moore ERUAHD A micrscopic examina tion will be performed if indicated. Normal [facility] Comment on above: Performed By: #### C MP, BNP #### [facility] [address] [place] [address] Dr. Sung Moore Glucose Ql (U) Negative Normal NEGATIVE [facility] Comment on above: Performed By: #### C MP, BNP #### [facility] [address] [place] [address] Dr. Sung Moore Hemoglobin Ql (U) MODERATE Abnormal NEGATIVE [facility] Comment on above: Performed By: #### C MP, BNP #### [facility] [address] [place] [address] Dr. Sung Moore Ketones Ql (U) Negative Normal NEGATIVE [facility] Comment on above: Performed By: #### C MP, BNP #### [facility] [address] [place] [address] Dr. Sung Moore LEUKOCYTES LARGE Abnormal NEGATIVE [facility] Comment on above: Performed By: #### C MP, BNP #### [facility] [address] [place] [address] Dr. Sung Moore Nitrite Ql (U) Positive Abnormal NEGATIVE [facility] Comment on above: Performed By: #### C MP, BNP #### [facility] [address] [place] [address] Dr. Sung Moore pH (U) 6.0 [pH] Normal 5-9 [facility] Comment on above: Performed By: #### C MP, BNP #### [facility] [address] [place] [address] Dr. Sung Moore SPEC GRAVITY 1.015 Normal 1.005-<=1. 025 [facility] Comment on above: Performed By: #### C MP, BNP #### [facility] [address] [place] [address] Dr. Sung Moore UA PROTEIN Negative Normal NEGATIVE/ TRACE [facility] Comment on above: Performed By: #### C MP, BNP #### [facility] [address] [place] [address] Dr. Sung Moore UR MICRO IND INDICATED Normal [facility] Comment on above: Performed By: #### C MP, BNP #### [facility] [address] [place] [address] Dr. Sung Moore Urobilinogen Qn (U) 0.2 {David'U}/dL Normal 0.2 - 1. 0 [facility] Comment on above: Performed By: #### C MP, BNP #### [facility] [address] [place] [address] Dr. Sung Moore LACTATE/LACTIC ACIDon 2021 Lactate [Moles/Vol] 0.6 mmol/L Normal 0.4-1.9 [facility] Comment on above: Performed By: #### C RP, CMP #### [facility] [address] [address] [address] Sung Moore Lactate [Moles/Vol] 0.8 mmol/L Normal 0.4-1.9 [facility] Comment on above: Performed By: #### L ACT #### [facility] [address] [address] [address] Sung Moore POINT OF CARE GLUCOSEon 10-0 Glucose [Mass/Vol] 148 mg/dL Critically high 74-106 [facility] Comment on above: Performed By: #### L ACT #### [facility] [address] [place] [address] Dr. Sung Moore PROF CHEM 8 (BAS METB)on Anion gap [Moles/Vol] 10.6 mmol/L Normal [facility] Comment on above: Performed By: #### C MP, BNP #### [facility] [address] [place] [address] Dr. Sung Moore Calcium [Mass/Vol] 8.5 mg/dL Normal 8.5-10.1 [facility] Comment on above: Performed By: #### C MP, BNP #### [facility] [address] [place] [address] Dr. Sung Moore Chloride [Moles/Vol] 102 mmol/L Normal 98-107 [facility] Comment on above: Performed By: #### C MP, BNP #### [facility] [address] [place] [address] Dr. Sung Moore CO2 [Moles/Vol] 24.8 mmol/L Normal 21.0-32.0 [facility] Comment on above: Performed By: #### C MP, BNP #### [facility] [address] [place] [address] Dr. Sung Moore Creatinine [Mass/Vol] 0.77 mg/dL Normal 0.55-1.02 [facility] Comment on above: Performed By: #### C MP, BNP #### [facility] [address] [address] [address] Sung Moore EGFR-AF SOUTH AFRICAN >60 Normal >=60 [facility] Comment on above: Performed By: #### C MP, BNP #### [facility] [address] [address] [address] Sung Moore EGFR-NON AF SOUTH AFRICAN >60 Normal >=60 [facility] Comment on above: Performed By: #### C MP, BNP #### [facility] [address] [address] [address] Sung Moore Glucose [Mass/Vol] 117 mg/dL Critically high 74-106 [facility] Comment on above: Performed By: #### C MP, BNP #### [facility] [address] [place] [address] Dr. Sung Moore Potassium [Moles/Vol] 3.4 mmol/L Critically low 3.5-5.1 [facility] Comment on above: Performed By: #### C MP, BNP #### [facility] [address] [place] [address] Dr. Sung Moore Sodium [Moles/Vol] 134 mmol/L Critically low 136-145 [facility] Comment on above: Performed By: #### C MP, BNP #### [facility] [address] [place] [address] Dr. Sung Moore Urea nitrogen [Mass/Vol] 12.0 mg/dL Normal 7.0-18.0 [facility] Comment on above: Performed By: #### C MP, BNP #### [facility] [address] [place] [address] Dr. Sung Moore Urea nitrogen/Creatinine [Mass ratio] 15.6 mg/mg Normal [facility] Comment on above: Performed By: #### C MP, BNP #### [facility] [address] [place] [address] Dr. Sung Moore Anion gap [Moles/Vol] 13.7 mmol/L Normal [facility] Comment on above: Performed By: #### L ACT #### [facility] [address] [address] [address] Sung Moore Calcium [Mass/Vol] 8.7 mg/dL Normal 8.5-10.1 [facility] Comment on above: Performed By: #### L ACT #### [facility] [address] [address] [address] Sung Moore Chloride [Moles/Vol] 93 mmol/L Critically low 98-107 [facility] Comment on above: Performed By: #### L ACT #### [facility] [address] [address] [address] Sung Moore CO2 [Moles/Vol] 23.3 mmol/L Normal 21.0-32.0 [facility] Comment on above: Performed By: #### L ACT #### [facility] [address] [address] [address] Sung Moore Creatinine [Mass/Vol] 0.78 mg/dL Normal 0.55-1.02 [facility] Comment on above: Performed By: #### L ACT #### [facility] [address] [address] [address] Sung Moore EGFR-AF SOUTH AFRICAN >60 Normal >=60 [facility] Comment on above: Performed By: #### L ACT #### [facility] [address] [place] [address] Dr. Sung Moore EGFR-NON AF SOUTH AFRICAN >60 Normal >=60 [facility] Comment on above: Performed By: #### L ACT #### [facility] [address] [address] [address] Sung Moore Glucose [Mass/Vol] 154 mg/dL Critically high 74-106 [facility] Comment on above: Performed By: #### L ACT #### [facility] [address] [address] [address] Sung Moore Potassium [Moles/Vol] 4.0 mmol/L Normal 3.5-5.1 [facility] Comment on above: Performed By: #### L ACT #### [facility] [address] [address] [address] Sung Moore Sodium [Moles/Vol] 126 mmol/L Critically low 136-145 [facility] Comment on above: Performed By: #### L ACT #### [facility] [address] [place] [address] Dr. Sung Moore Urea nitrogen [Mass/Vol] 15.0 mg/dL Normal 7.0-18.0 [facility] Comment on above: Performed By: #### L ACT #### [facility] [address] [place] [address] Dr. Sung Moore Urea nitrogen/Creatinine [Mass ratio] 19.2 mg/mg Normal [facility] Comment on above: Performed By: #### L ACT #### [facility] [address] [place] [address] Dr. Sung Moore URINE MICROSCOPIC ONLYon BACTERIA LARGE Abnormal NONE SEEN [facility] Comment on above: Performed By: #### C MP, BNP #### [facility] [address] [place] [address] Dr. Sung Moore Bacteria identified Cx Nom (U) INDICATED Normal [facility] Comment on above: Performed By: #### C MP, BNP #### [facility] [address] [place] [address] Dr. Sung Moore CAST NONE SEEN Normal NONE SEEN [facility] Comment on above: Performed By: #### C MP, BNP #### [facility] [address] [place] [address] Dr. Sung Moore Crystals LM Nom (Urine sed) NONE SEEN Normal NONE SEEN [facility] Comment on above: Performed By: #### C MP, BNP #### [facility] [address] [place] [address] Dr. Sung Moore Epithelial cells LM Ql (Urine sed) FEW Abnormal NONE SEEN /RARE [facility] Comment on above: Performed By: #### C MP, BNP #### [facility] [address] [place] [address] Dr. Sung Moore MUCOUS TRACE Abnormal NONE SEEN [facility] Comment on above: Performed By: #### C MP, BNP #### [facility] [address] [address] [address] Sung Moore RBC 5-10 Abnormal 0-2 [facility] Comment on above: Performed By: #### C MP, BNP #### [facility] [address] [address] [address] Sung Moore WBC (U) [#/Vol] /uL Abnormal NONE SEEN [facility] Comment on above: Performed By: #### C MP, BNP #### [facility] [id number] Sung Moore XR CHEST 1 Von 03-20-2022 XR CHEST 1 V EXAM: XR CHEST 1 V HISTORY: Dizziness COMPARISON: Chest x-ray 11/10/2021 TECHNIQUE: Single frontal view chest x-ray FINDINGS: Mild bibasilar streaky lung opacities reflect atelectasis with crowding of pulmonary vessels, less likely infiltrates. No large pleural effusions, pneumothorax, or acute bony abnormality. Mild cardiomegaly. Prominent thoracic aorta, similar in contour compared to prior exam. IMPRESSION: Mild cardiomegaly and prominent thoracic aorta, similar in contour compared to prior exam. Electronically authenticated by: SAUNDRA LAGUERRE Date: 2022-03-19 23:56 Normal [facility] BASIC METABOLIC PANELon 07-1 Calcium [Mass/Vol] 8.8 mg/dL Normal 8.6-10.3 [facility] Comment on above: Order Comment: No: D o not add to previous draw Performed By: #### 4 1000, 54368, 45958 #### [facility] [address] [place] [address], [place] Chloride [Moles/Vol] 101 mmol/L Normal 98-107 [facility] Comment on above: Order Comment: No: D o not add to previous draw Performed By: #### 4 1000, 48859, 47774 #### [facility] [address] [place] [address], [place] CO2 [Moles/Vol] 29 mmol/L Normal 21-31 [facility] Comment on above: Order Comment: No: D o not add to previous draw Performed By: #### 4 1000, 79884, 38636 #### [facility] [address] [place] [address], [place] Creatinine [Mass/Vol] 0.54 mg/dL Low 0.60-1.20 [facility] Comment on above: Order Comment: No: D o not add to previous draw Performed By: #### 4 1000, 12748, 65924 #### [facility] [address] [place] [address], [place] GFR/1.73 sq M.predicted among blacks MDRD (S/P/Bld) [Vol rate/Area] mL/min/{1.73_m2} Normal >60 [facility] Comment on above: Order Comment: No: D o not add to previous draw Result Comment: Calc ulation may not be valid for patients over 70 years Performed By: #### 4 1000, , 80579 #### [facility] [address] [place] [address], [place] GFR/1.73 sq M.predicted among non-blacks MDRD (S/P/Bld) [Vol rate/Area] mL/min/{1.73_m2} Normal >60 [facility] Comment on above: Order Comment: No: D o not add to previous draw Result Comment: Calc ulation may not be valid for patients over 70 years Performed By: #### 4 999, , 89660 #### [facility] [address] [place] [address], [place] Glucose [Mass/Vol] 85 mg/dL Normal 70-100 [facility] Comment on above: Order Comment: No: D o not add to previous draw Performed By: #### 4 1000, 72658, 98636 #### [facility] [address] [place] [address], [place] Potassium [Moles/Vol] 4.3 mmol/L Normal 3.5-5.1 [facility] Comment on above: Order Comment: No: D o not add to previous draw Performed By: #### 4 1000, 63310, 86806 #### [facility] [address] [place] [address], [facility] Sodium [Moles/Vol] 135 mmol/L Low 136-145 [facility] Comment on above: Order Comment: No: D o not add to previous draw Performed By: #### 4 1000, , 24073 #### [facility] [address] [place] [id number], [facility] Urea nitrogen [Mass/Vol] 8 mg/dL Normal 7-25 [facility] Comment on above: Order Comment: No: D o not add to previous draw Performed By: #### 4 999, , #### [facility] [address] CBC COMPLETE BLOOD COUNTon 0 - Erythrocyte distribution width (RBC) [Ratio] 16.9 % High 11.5-15.0 [facility] Comment on above: Order Comment: No: D o not add to previous draw Performed By: #### 4 999, , 68801 #### [facility] [address] Hematocrit (Bld) [Volume fraction] 32.5 % Low 36.0-45.0 [facility] Comment on above: Order Comment: No: D o not add to previous draw Performed By: #### 4 999, , 49665 #### [facility] [address] [place] [address], [facility] Hemoglobin (Bld) [Mass/Vol] 10.3 g/dL Low 12.0-15.0 [facility] Comment on above: Order Comment: No: D o not add to previous draw Performed By: #### 4 1000, , 44831 #### [facility] [address] [place] [id number], [facility] MCH (RBC) [Entitic mass] 27.4 pg Normal 27.0-33.0 [facility] Comment on above: Order Comment: No: D o not add to previous draw Performed By: #### 4 1000, , 58480 #### [facility] [address] [place] [address], [facility] MCHC (RBC) [Mass/Vol] 31.7 g/dL Low 32.0-35.0 [facility] Comment on above: Order Comment: No: D o not add to previous draw Performed By: #### 4 1000, , 47867 #### [facility] [address] [place] [id number], [facility] MCV (RBC) [Entitic vol] 86.4 fL Normal 82.0-98.0 [facility] Comment on above: Order Comment: No: D o not add to previous draw Performed By: #### 4 1000, , #### [facility] [address] [place] [address], [facility] Nucleated RBC/100 WBC (Bld) [Ratio] 0 % Normal 0-0 [facility] Comment on above: Order Comment: No: D o not add to previous draw Performed By: #### 4 1000, , 41940 #### [facility] [address] [place] [address], [place] PLAT CNT 298 10*3/uL Normal 150-400 [facility] Comment on above: Order Comment: No: D o not add to previous draw Performed By: #### 4 1000, , 42021 #### [facility] [address] [place] [id number], [place] RBC (Bld) [#/Vol] 3.76 10*6/uL Low 3.80-5.00 [facility] Comment on above: Order Comment: No: D o not add to previous draw Performed By: #### 4 1000, , 75771 #### [facility] [address] [place] [id number], [place] WBC (Bld) [#/Vol] 6.86 10*3/uL Normal 4.00-10.60 [facility] Comment on above: Order Comment: No: D o not add to previous draw Performed By: #### 4 1000, 26956, 96220 #### [facility] [address] [place] [address], [facility] MAGNESIUM BLOODon 12-29-2021 Magnesium [Mass/Vol] 2.3 mg/dL Normal 1.9-2.7 [facility] Comment on above: Order Comment: No: D o not add to previous draw Performed By: #### 4 1000, 25283, 37884 #### [facility] [address] [place] [address], [facility] PHOSPHORUS BLOODon 2 Phosphate [Mass/Vol] 4.1 mg/dL Normal 2.5-5.0 [facility] Comment on above: Order Comment: No: D o not add to previous draw Performed By: #### 4 1000, 68501, 40943 #### [facility] [address] [place] [address], [facility] PORTABLE ABDOMENon 2 PORTABLE ABDOMEN [facility] Department of Radiology [address] [place] [id number] Patient Name: SABI SANTAMARIA : 1945 Sex: F Age: Race: Other Pt. Location: [id number] Patient Status: I Ordered Date: 12/29/2021 6:00:00 AM Completed Date: 12/29/2021 06:45 AM Requesting Provider: ENRRIQUE GAUTHIER Attending Provider: MINESH DALY Report Copy To: Signs & Symptoms: Constipation/Impaction History: Comments: evaluate for Ileus Exam: PORTABLE ABDOMEN PORTABLE ABDOMEN 12/29/2021 6:45 AM CLINICAL INDICATIONS: Constipation/Impaction TECHNOLOGIST COMMENTS:Constipation/Imp action QUESTION FOR THE RADIOLOGIST: evaluate for Ileus PROTOCOL: AP(PA) view was obtained. COMPARISON: December 24, 2021. FINDINGS: Contrast material present in the right colon on the previous exam has cleared. Air-filled mildly dilated proximal small bowel is again noted. No fecal impaction is identified. Contrast present in the bladder on the previous study has passed. No organomegaly or abdominal mass. Multiple surgical in the lower abdomen and pelvis remain. Right-sided hip prosthesis remains. IMPRESSION: Interval passage of contrast in colon and bladder. Moderately dilated air-filled proximal presumably secondary to ileus remains. Electronically signed: Saundra Hyde. Transcribed by: [email or web address], User Resident: Electronically Signed by: SAUNDRA HYDE @ 12/29/2021 07:07 AM Normal [facility] Comment on above: Order Comment: No: D o not add to previous draw BASIC METABOLIC PANELon 12-16 Calcium [Mass/Vol] 8.6 mg/dL Normal 8.6-10.3 [facility] Comment on above: Order Comment: No: D o not add to previous draw Performed By: #### 4 999, , 58468 #### [facility] [address] [place] [address], [place] Chloride [Moles/Vol] 104 mmol/L Normal 98-107 [facility] Comment on above: Order Comment: No: D o not add to previous draw Performed By: #### 4 1000, 63054, 08157 #### [facility] [address] [place] [address], [place] CO2 [Moles/Vol] 27 mmol/L Normal 21-31 [facility] Comment on above: Order Comment: No: D o not add to previous draw Performed By: #### 4 1000, , 15633 #### [facility] [address] [place] [address], [place] Creatinine [Mass/Vol] 0.57 mg/dL Low 0.60-1.20 [facility] Comment on above: Order Comment: No: D o not add to previous draw Performed By: #### 4 1000, , 27470 #### [facility] [address] [place] [address], [place] GFR/1.73 sq M.predicted among blacks MDRD (S/P/Bld) [Vol rate/Area] mL/min/{1.73_m2} Normal >60 [facility] Comment on above: Order Comment: No: D o not add to previous draw Result Comment: Calc ulation may not be valid for patients over 70 years Performed By: #### 4 1000, , 04509 #### [facility] [address] [place] [address], [place] GFR/1.73 sq M.predicted among non-blacks MDRD (S/P/Bld) [Vol rate/Area] mL/min/{1.73_m2} Normal >60 [facility] Comment on above: Order Comment: No: D o not add to previous draw Result Comment: Calc ulation may not be valid for patients over 70 years Performed By: #### 4 1000, , 68313 #### [facility] [address] [place] [address], [place] Glucose [Mass/Vol] 117 mg/dL High 70-100 [facility] Comment on above: Order Comment: No: D o not add to previous draw Performed By: #### 4 1000, , 58483 #### [facility] [address] [place] [address], [place] Potassium [Moles/Vol] 4.4 mmol/L Normal 3.5-5.1 [facility] Comment on above: Order Comment: No: D o not add to previous draw Performed By: #### 4 1000, 48797, 24669 #### [facility] [address] [place] [address], [facility] Sodium [Moles/Vol] 137 mmol/L Normal 136-145 [facility] Comment on above: Order Comment: No: D o not add to previous draw Performed By: #### 4 1000, 39524, 59905 #### [facility] [address] [place] [address], [facility] Urea nitrogen [Mass/Vol] 4 mg/dL Low 7-25 [facility] Comment on above: Order Comment: No: D o not add to previous draw Performed By: #### 4 1000, , 46063 #### [facility] [address] [place] [address], [facility] CBC COMPLETE BLOOD COUNTon 0 - Erythrocyte distribution width (RBC) [Ratio] 17.0 % High 11.5-15.0 [facility] Comment on above: Order Comment: No: D o not add to previous draw Performed By: #### 8 6509 #### [facility] [address] [place] [address], [place] Hematocrit (Bld) [Volume fraction] 32.5 % Low 36.0-45.0 [facility] Comment on above: Order Comment: No: D o not add to previous draw Performed By: #### 8 8709 #### [facility] [address] [place] [address], [place] Hemoglobin (Bld) [Mass/Vol] 10.4 g/dL Low 12.0-15.0 [facility] Comment on above: Order Comment: No: D o not add to previous draw Performed By: #### 8 5539 #### [facility] [address] [place] [address], [place] MCH (RBC) [Entitic mass] 27.7 pg Normal 27.0-33.0 [facility] Comment on above: Order Comment: No: D o not add to previous draw Performed By: #### 8 5499 #### [facility] [address] [facility]. [address] MCHC (RBC) [Mass/Vol] 32.0 g/dL Normal 32.0-35.0 [facility] Comment on above: Order Comment: No: D o not add to previous draw Performed By: #### 8 5499 #### [facility] [address] [facility]. [address] MCV (RBC) [Entitic vol] 86.4 fL Normal 82.0-98.0 [facility] Comment on above: Order Comment: No: D o not add to previous draw Performed By: #### 8 5499 #### [facility] [address] Nucleated RBC/100 WBC (Bld) [Ratio] 0 % Normal 0-0 [facility] Comment on above: Order Comment: No: D o not add to previous draw Performed By: #### 8 5499 #### [facility] [address] [facility] [place] [address], [facility] PLAT CNT 259 10*3/uL Normal 150-400 [facility] Comment on above: Order Comment: No: D o not add to previous draw Performed By: #### 8 5499 #### [facility] [address] [facility] [place] [address], [facility] RBC (Bld) [#/Vol] 3.76 10*6/uL Low 3.80-5.00 [facility] Comment on above: Order Comment: No: D o not add to previous draw Performed By: #### 8 5499 #### [facility] [address] [place] [address], [facility] WBC (Bld) [#/Vol] 6.18 10*3/uL Normal 4.00-10.60 [facility] Comment on above: Order Comment: No: D o not add to previous draw Performed By: #### 8 5499 #### [facility] [address] [place] [address], [facility] MAGNESIUM BLOODon 12-28-2021 Magnesium [Mass/Vol] 2.1 mg/dL Normal 1.9-2.7 [facility] Comment on above: Order Comment: No: D o not add to previous draw Performed By: #### 4 1000, 31551, 15320 #### [facility] [address] [place] [address], [facility] PHOSPHORUS BLOODon Phosphate [Mass/Vol] 3.5 mg/dL Normal 2.5-5.0 [facility] Comment on above: Order Comment: No: D o not add to previous draw Performed By: #### 4 1000, 23002, 62890 #### [facility] [address] [place] [address], [facility] POC GLUCOSE LABon 12-28-2021 Glucose [Mass/Vol] 124 mg/dL High 70-100 [facility] Comment on above: Performed By: #### 8 5499 #### [facility] [address] [place] [address], [place] Glucose [Mass/Vol] 111 mg/dL High 70-100 [facility] Comment on above: Performed By: #### 8 5499 #### [facility] [address] [place] [address], [facility] BASIC METABOLIC PANELon 12-16 Calcium [Mass/Vol] 8.4 mg/dL Low 8.6-10.3 [facility] Comment on above: Order Comment: No: D o not add to previous draw Performed By: #### 4 1000, 71077, 99682 #### [facility] [address] [place] [address], [place] Chloride [Moles/Vol] 106 mmol/L Normal 98-107 [facility] Comment on above: Order Comment: No: D o not add to previous draw Performed By: #### 4 1000, 54689, 55003 #### [facility] [address] [place] [address], [place] CO2 [Moles/Vol] 23 mmol/L Normal 21-31 [facility] Comment on above: Order Comment: No: D o not add to previous draw Performed By: #### 4 1000, 49371, 35191 #### [facility] [address] [place] [address], [place] Creatinine [Mass/Vol] 0.52 mg/dL Low 0.60-1.20 [facility] Comment on above: Order Comment: No: D o not add to previous draw Performed By: #### 4 1000, , 26538 #### [facility] [address] [place] [address], [place] GFR/1.73 sq M.predicted among blacks MDRD (S/P/Bld) [Vol rate/Area] mL/min/{1.73_m2} Normal >60 [facility] Comment on above: Order Comment: No: D o not add to previous draw Result Comment: Calc ulation may not be valid for patients over 70 years Performed By: #### 4 1000, , 37835 #### [facility] [address] [place] [address], [place] GFR/1.73 sq M.predicted among non-blacks MDRD (S/P/Bld) [Vol rate/Area] mL/min/{1.73_m2} Normal >60 [facility] Comment on above: Order Comment: No: D o not add to previous draw Result Comment: Calc ulation may not be valid for patients over 70 years Performed By: #### 4 1000, 95350, 91508 #### [facility] [address] [place] [address], [place] Glucose [Mass/Vol] 119 mg/dL High 70-100 [facility] Comment on above: Order Comment: No: D o not add to previous draw Performed By: #### 4 1000, 49375, 02513 #### [facility] [address] [place] [address], [place] Potassium [Moles/Vol] 3.7 mmol/L Normal 3.5-5.1 [facility] Comment on above: Order Comment: No: D o not add to previous draw Performed By: #### 4 1000, , 00014 #### [facility] [address] [place] [address], [place] Sodium [Moles/Vol] 137 mmol/L Normal 136-145 [facility] Comment on above: Order Comment: No: D o not add to previous draw Performed By: #### 4 1000, , 09141 #### [facility] [address] [place] [address], [place] Urea nitrogen [Mass/Vol] 3 mg/dL Low 7-25 [facility] Comment on above: Order Comment: No: D o not add to previous draw Performed By: #### 4 1000, , 75195 #### [facility] [address] [place] [address], [place] CBC COMPLETE BLOOD COUNTon 0 12-27-2021 Erythrocyte distribution width (RBC) [Ratio] 16.5 % High 11.5-15.0 [facility] Comment on above: Order Comment: No: D o not add to previous draw Performed By: #### 4 1000, , 05523 #### [facility] [address] [place] [address], [place] Hematocrit (Bld) [Volume fraction] 31.4 % Low 36.0-45.0 [facility] Comment on above: Order Comment: No: D o not add to previous draw Performed By: #### 4 1000, , 22015 #### [facility] [address] [place] [address], [place] Hemoglobin (Bld) [Mass/Vol] 10.2 g/dL Low 12.0-15.0 [facility] Comment on above: Order Comment: No: D o not add to previous draw Performed By: #### 4 1000, , 35469 #### [facility] [address] [place] [address], [facility] MCH (RBC) [Entitic mass] 28.1 pg Normal 27.0-33.0 [facility] Comment on above: Order Comment: No: D o not add to previous draw Performed By: #### 4 1000, , 43427 #### [facility] [address] [place] [address], [facility] MCHC (RBC) [Mass/Vol] 32.5 g/dL Normal 32.0-35.0 [facility] Comment on above: Order Comment: No: D o not add to previous draw Performed By: #### 4 1000, , 72096 #### [facility] [address] [place] [address], [facility] MCV (RBC) [Entitic vol] 86.5 fL Normal 82.0-98.0 [facility] Comment on above: Order Comment: No: D o not add to previous draw Performed By: #### 4 1000, , 30266 #### [facility] [address] [place] [address], [facility] Nucleated RBC/100 WBC (Bld) [Ratio] 0 % Normal 0-0 [facility] Comment on above: Order Comment: No: D o not add to previous draw Performed By: #### 4 1000, , 38787 #### [facility] [address] [facility] [place] [place] [address], [facility] PLAT CNT 230 10*3/uL Normal 150-400 [facility] Comment on above: Order Comment: No: D o not add to previous draw Performed By: #### 4 1000, , 84166 #### [facility] [address] [place] [address], [facility] RBC (Bld) [#/Vol] 3.63 10*6/uL Low 3.80-5.00 [facility] Comment on above: Order Comment: No: D o not add to previous draw Performed By: #### 4 1000, , 67371 #### [facility] [address] [place] [address], [facility] WBC (Bld) [#/Vol] 6.60 10*3/uL Normal 4.00-10.60 [facility] Comment on above: Order Comment: No: D o not add to previous draw Performed By: #### 4 1000, , 65466 #### [facility] [address] [place] [address], [facility] MAGNESIUM BLOODon 12-27-2021 Magnesium [Mass/Vol] 1.6 mg/dL Low 1.9-2.7 [facility] Comment on above: Order Comment: No: D o not add to previous draw Performed By: #### 4 1000, , 87216 #### [facility] [address] [place] [id number], [facility] PHOSPHORUS BLOODon 2 Phosphate [Mass/Vol] 3.2 mg/dL Normal 2.5-5.0 [facility] Comment on above: Order Comment: No: D o not add to previous draw Performed By: #### 4 1000, , 53375 #### [facility] [address] [place] [id number], [facility] POC GLUCOSE LABon 12-27-2021 Glucose [Mass/Vol] 124 mg/dL High 70-100 [facility] Comment on above: Performed By: #### 4 1000, , 66239 #### [facility] [address] [place] [id number], [place] Glucose [Mass/Vol] 127 mg/dL High 70-100 [facility] Comment on above: Performed By: #### 8 5499 #### [facility] [address] [place] [address], [place] Glucose [Mass/Vol] 127 mg/dL High 70-100 [facility] Comment on above: Performed By: #### 4 1000, 51921, 23372 #### [facility] [address] [place] [address], [place] Glucose [Mass/Vol] 124 mg/dL High 70-100 [facility] Comment on above: Performed By: #### 4 1000, 06146, 69874 #### [facility] [address] [place] [address], [place] BASIC METABOLIC PANELon 07- Calcium [Mass/Vol] 8.4 mg/dL Low 8.6-10.3 [facility] Comment on above: Order Comment: No: D o not add to previous draw Performed By: #### 8 5499 #### [facility] [address] [place] [address], [place] Chloride [Moles/Vol] 105 mmol/L Normal 98-107 [facility] Comment on above: Order Comment: No: D o not add to previous draw Performed By: #### 8 5499 #### [facility] [address] [place] [address], [place] CO2 [Moles/Vol] 27 mmol/L Normal 21-31 [facility] Comment on above: Order Comment: No: D o not add to previous draw Performed By: #### 8 5499 #### [facility] [address] [place] [address], [place] Creatinine [Mass/Vol] 0.52 mg/dL Low 0.60-1.20 [facility] Comment on above: Order Comment: No: D o not add to previous draw Performed By: #### 8 5499 #### [facility] [address] [place] [address], [place] GFR/1.73 sq M.predicted among blacks MDRD (S/P/Bld) [Vol rate/Area] mL/min/{1.73_m2} Normal >60 [facility] Comment on above: Order Comment: No: D o not add to previous draw Result Comment: Calc ulation may not be valid for patients over 70 years Performed By: #### 8 5499 #### [facility] [address] [place] [address], [place] GFR/1.73 sq M.predicted among non-blacks MDRD (S/P/Bld) [Vol rate/Area] mL/min/{1.73_m2} Normal >60 [facility] Comment on above: Order Comment: No: D o not add to previous draw Result Comment: Calc ulation may not be valid for patients over 70 years Performed By: #### 8 5499 #### [facility] [address] [place] [address], [place] Glucose [Mass/Vol] 114 mg/dL High 70-100 [facility] Comment on above: Order Comment: No: D o not add to previous draw Performed By: #### 8 5499 #### [facility] [address] [place] [address], [place] Potassium [Moles/Vol] 3.5 mmol/L Normal 3.5-5.1 [facility] Comment on above: Order Comment: No: D o not add to previous draw Performed By: #### 8 5499 #### [facility] [address] [place] [address], [place] Sodium [Moles/Vol] 137 mmol/L Normal 136-145 [facility] Comment on above: Order Comment: No: D o not add to previous draw Performed By: #### 8 5499 #### [facility] [address] [place] [address], [place] Urea nitrogen [Mass/Vol] 3 mg/dL Low 7-25 [facility] Comment on above: Order Comment: No: D o not add to previous draw Performed By: #### 8 5499 #### [facility] [address] CBC COMPLETE BLOOD COUNTon 0 - Erythrocyte distribution width (RBC) [Ratio] 16.6 % High 11.5-15.0 [facility] Comment on above: Order Comment: No: D o not add to previous draw Performed By: #### 4 1000, , 77933 #### [facility] [address] [place] [id number], [facility] Hematocrit (Bld) [Volume fraction] 30.5 % Low 36.0-45.0 [facility] Comment on above: Order Comment: No: D o not add to previous draw Performed By: #### 4 1000, , 22234 #### [facility] [address] [place] [id number], [facility] Hemoglobin (Bld) [Mass/Vol] 10.0 g/dL Low 12.0-15.0 [facility] Comment on above: Order Comment: No: D o not add to previous draw Performed By: #### 4 1000, , 24875 #### [facility] [address] [place] [address], [facility] MCH (RBC) [Entitic mass] 27.8 pg Normal 27.0-33.0 [facility] Comment on above: Order Comment: No: D o not add to previous draw Performed By: #### 4 1000, , 71600 #### [facility] [address] [place] [id number], [facility] MCHC (RBC) [Mass/Vol] 32.8 g/dL Normal 32.0-35.0 [facility] Comment on above: Order Comment: No: D o not add to previous draw Performed By: #### 4 1000, , 31082 #### [facility] [address] [place] [address], [place] MCV (RBC) [Entitic vol] 84.7 fL Normal 82.0-98.0 [facility] Comment on above: Order Comment: No: D o not add to previous draw Performed By: #### 4 1000, , 43633 #### [facility] [address] [place] [address], [place] Nucleated RBC/100 WBC (Bld) [Ratio] 0 % Normal 0-0 [facility] Comment on above: Order Comment: No: D o not add to previous draw Performed By: #### 4 1000, , 72747 #### [facility] [address] [place] [address], [place] PLAT CNT 221 10*3/uL Normal 150-400 [facility] Comment on above: Order Comment: No: D o not add to previous draw Performed By: #### 4 1000, , 83019 #### [facility] [address] [place] [address], [place] RBC (Bld) [#/Vol] 3.60 10*6/uL Low 3.80-5.00 [facility] Comment on above: Order Comment: No: D o not add to previous draw Performed By: #### 4 1000, , 84479 #### [facility] [address] [place] [address], [place] WBC (Bld) [#/Vol] 6.18 10*3/uL Normal 4.00-10.60 [facility] Comment on above: Order Comment: No: D o not add to previous draw Performed By: #### 4 1000, , 68695 #### [facility] [address] [place] [address], [place] POC GLUCOSE LABon 12-26-2021 Glucose [Mass/Vol] 125 mg/dL High 70-100 [facility] Comment on above: Performed By: #### 8 5499 #### [facility] [address] [place] [address], [place] Glucose [Mass/Vol] 196 mg/dL High 70-100 [facility] Comment on above: Performed By: #### 4 1000, 24580, 72889 #### [facility] [address] [place] [address], [place] Glucose [Mass/Vol] 110 mg/dL High 70-100 [facility] Comment on above: Performed By: #### 4 1000, , 68987 #### [facility] [address] [place] [address], [place] Glucose [Mass/Vol] 114 mg/dL High 70-100 [facility] Comment on above: Performed By: #### 8 5499 #### [facility] [address] [place] [address], [place] BASIC METABOLIC PANELon 07- 0-2021 Calcium [Mass/Vol] 8.4 mg/dL Low 8.6-10.3 [facility] Comment on above: Order Comment: No: D o not add to previous draw Performed By: #### 4 1000, , 13782 #### [facility] [address] [place] [address], [place] Chloride [Moles/Vol] 101 mmol/L Normal 98-107 [facility] Comment on above: Order Comment: No: D o not add to previous draw Performed By: #### 4 1000, , 95574 #### [facility] [address] [place] [address], [place] CO2 [Moles/Vol] 27 mmol/L Normal 21-31 [facility] Comment on above: Order Comment: No: D o not add to previous draw Performed By: #### 4 1000, , 49689 #### [facility] [address] [place] [address], [place] Creatinine [Mass/Vol] 0.54 mg/dL Low 0.60-1.20 [facility] Comment on above: Order Comment: No: D o not add to previous draw Performed By: #### 4 1000, 98845, 70592 #### [facility] [address] [place] [address], [place] GFR/1.73 sq M.predicted among blacks MDRD (S/P/Bld) [Vol rate/Area] mL/min/{1.73_m2} Normal >60 [facility] Comment on above: Order Comment: No: D o not add to previous draw Result Comment: Calc ulation may not be valid for patients over 70 years Performed By: #### 4 1000, , 63544 #### [facility] [address] [place] [address], [place] GFR/1.73 sq M.predicted among non-blacks MDRD (S/P/Bld) [Vol rate/Area] mL/min/{1.73_m2} Normal >60 [facility] Comment on above: Order Comment: No: D o not add to previous draw Result Comment: Calc ulation may not be valid for patients over 70 years Performed By: #### 4 1000, , 46820 #### [facility] [address] [place] [address], [place] Glucose [Mass/Vol] 109 mg/dL High 70-100 [facility] Comment on above: Order Comment: No: D o not add to previous draw Performed By: #### 4 1000, , 98220 #### [facility] [address] [place] [address], [place] Potassium [Moles/Vol] 3.4 mmol/L Low 3.5-5.1 [facility] Comment on above: Order Comment: No: D o not add to previous draw Performed By: #### 4 1000, , 10252 #### [facility] [address] [place] [address], [place] Sodium [Moles/Vol] 135 mmol/L Low 136-145 [facility] Comment on above: Order Comment: No: D o not add to previous draw Performed By: #### 4 1000, , 39778 #### [facility] [address] [place] [address], [facility] Urea nitrogen [Mass/Vol] 5 mg/dL Low 7-25 [facility] Comment on above: Order Comment: No: D o not add to previous draw Performed By: #### 4 1000, , 80583 #### [facility] [address] [place] [id number], [facility] CBC COMPLETE BLOOD COUNTon 0 12-25-2021 Erythrocyte distribution width (RBC) [Ratio] 16.5 % High 11.5-15.0 [facility] Comment on above: Order Comment: No: D o not add to previous draw Performed By: #### 4 999, , #### [facility] [address] [place] [address], [facility] Hematocrit (Bld) [Volume fraction] 30.6 % Low 36.0-45.0 [facility] Comment on above: Order Comment: No: D o not add to previous draw Performed By: #### 4 999, , 33420 #### [facility] [address] [place] [id number], [facility] Hemoglobin (Bld) [Mass/Vol] 9.9 g/dL Low 12.0-15.0 [facility] Comment on above: Order Comment: No: D o not add to previous draw Performed By: #### 4 999, , 11894 #### [facility] [address] [place] [id number], [place] MCH (RBC) [Entitic mass] 28.0 pg Normal 27.0-33.0 [facility] Comment on above: Order Comment: No: D o not add to previous draw Performed By: #### 4 999, , 76444 #### [facility] [address] [place] [address], [place] MCHC (RBC) [Mass/Vol] 32.4 g/dL Normal 32.0-35.0 [facility] Comment on above: Order Comment: No: D o not add to previous draw Performed By: #### 4 1000, 68228, 93307 #### [facility] [address] [place] [address], [facility] MCV (RBC) [Entitic vol] 86.4 fL Normal 82.0-98.0 [facility] Comment on above: Order Comment: No: D o not add to previous draw Performed By: #### 4 1000, , 73717 #### [facility] [address] [place] [id number], [facility] Nucleated RBC/100 WBC (Bld) [Ratio] 0 % Normal 0-0 [facility] Comment on above: Order Comment: No: D o not add to previous draw Performed By: #### 4 1000, , 11940 #### [facility] [address] [place] [id number], [place] PLAT CNT 245 10*3/uL Normal 150-400 [facility] Comment on above: Order Comment: No: D o not add to previous draw Performed By: #### 4 1000, , 19754 #### [facility] [address] [place] [address], [facility] RBC (Bld) [#/Vol] 3.54 10*6/uL Low 3.80-5.00 [facility] Comment on above: Order Comment: No: D o not add to previous draw Performed By: #### 4 1000, , 64958 #### [facility] [address] [place] [address], [place] WBC (Bld) [#/Vol] 6.35 10*3/uL Normal 4.00-10.60 [facility] Comment on above: Order Comment: No: D o not add to previous draw Performed By: #### 4 1000, , 29432 #### [facility] [address] [place] [id number], [facility] POC GLUCOSE LABon 12-25-2021 Glucose [Mass/Vol] 163 mg/dL High 70-100 [facility] Comment on above: Performed By: #### 8 5499 #### [facility] [address] [facility] [address], [facility] Glucose [Mass/Vol] 138 mg/dL High 70-100 [facility] Comment on above: Performed By: #### 4 1000, 13411, 37068 #### [facility] [address] [facility] [address], [facility] Glucose [Mass/Vol] 114 mg/dL High 70-100 [facility] Comment on above: Performed By: #### 8 5499 #### [facility] [address] [facility] [address], [facility] Glucose [Mass/Vol] 112 mg/dL High 70-100 [facility] Comment on above: Performed By: #### 8 5499 #### [facility] [address] [facility] [address], [facility] ABDOMEN 1 on 12-24-2021 ABDOMEN 1 [facility] Department of Radiology [address] [place] [id number] Patient Name: SABI SANTAMARIA : 1945 Sex: F Age: Race: Other Pt. Location: [id number] Patient Status: I Ordered Date: 12/24/2021 5:00:00 AM Completed Date: 12/24/2021 10:17 AM Requesting Provider: SOFIE DOMINGUEZ Attending Provider: MINESH DALY Report Copy To: Signs & Symptoms: Distention History: Comments: Stricture Exam: ABDOMEN 1 VW ABDOMEN 1 VW 12/24/2021 10:17 AM CLINICAL INDICATIONS: Distention TECHNOLOGIST COMMENTS: Distention and abdomen pain. QUESTION FOR THE RADIOLOGIST: Stricture PROTOCOL: AP(PA) view was obtained. COMPARISON: CT abdomen pelvis dated 12/23/2021 FINDINGS: Urinary bladder contains IV contrast and is moderately dilated. Oral contrast has passed into the colon and is present within distal right and proximal transverse colon at this time. Persistent abnormally dilated small bowel loops over left upper quadrant maximal transverse dimension 3.9 cm. This is very similar to the prior exam. No definite pneumatosis seen. NG tube tip extends 4.6 cm caudal to gastrogenic esophageal junction region. IMPRESSION: Moderate dilatation of urinary bladder. Persistent apparent incomplete small bowel obstruction. Electronically signed: Shad Mortensen. Transcribed by: [email or web address], User Resident: Electronically Signed by: SHAD MORTENSEN @ 12/24/2021 10:23 AM Normal [facility] Comment on above: Order Comment: Song alcantara BASIC METABOLIC PANELon 07-0 Calcium [Mass/Vol] 8.2 mg/dL Low 8.6-10.3 [facility] Comment on above: Order Comment: No: D o not add to previous draw Performed By: #### 1 0070, 78019, 88599, 51365 #### [facility] [address] [place] [address], [place] Chloride [Moles/Vol] 100 mmol/L Normal 98-107 [facility] Comment on above: Order Comment: No: D o not add to previous draw Performed By: #### 1 0070, 38267, 06931, 90575 #### [facility] [address] [place] [address], [place] CO2 [Moles/Vol] 22 mmol/L Normal 21-31 [facility] Comment on above: Order Comment: No: D o not add to previous draw Performed By: #### 1 0070, 85319, 65190, 11842 #### [facility] [address] [place] [address], [place] Creatinine [Mass/Vol] 0.52 mg/dL Low 0.60-1.20 [facility] Comment on above: Order Comment: No: D o not add to previous draw Performed By: #### 1 0070, 79898, 01487, 61056 #### [facility] [address] [place] [address], [place] GFR/1.73 sq M.predicted among blacks MDRD (S/P/Bld) [Vol rate/Area] mL/min/{1.73_m2} Normal >60 [facility] Comment on above: Order Comment: No: D o not add to previous draw Result Comment: Calc ulation may not be valid for patients over 70 years Performed By: #### 1 0070, 12800, 02489, 32269 #### [facility] [address] [place] [address], [place] GFR/1.73 sq M.predicted among non-blacks MDRD (S/P/Bld) [Vol rate/Area] mL/min/{1.73_m2} Normal >60 [facility] Comment on above: Order Comment: No: D o not add to previous draw Result Comment: Calc ulation may not be valid for patients over 70 years Performed By: #### 1 0070, 29893, 91596, 00289 #### [facility] [address] [place] [address], [place] Glucose [Mass/Vol] 43 mg/dL Critically low 70-100 [facility] Comment on above: Order Comment: No: D o not add to previous draw Result Comment: M-CR ITICAL RESULT(S) REVIEWED, CALLED TO AND READ BACK BY RAJAT DEVRIES RN @0635 12/24/21 Performed By: #### 1 0070, 55830, 53493, 16820 #### [facility] [address] [place] [address], [facility] Potassium [Moles/Vol] 3.9 mmol/L Normal 3.5-5.1 [facility] Comment on above: Order Comment: No: D o not add to previous draw Performed By: #### 1 0070, 88329, 10477, 92633 #### [facility] [address] [place] [address], [facility] Sodium [Moles/Vol] 135 mmol/L Low 136-145 [facility] Comment on above: Order Comment: No: D o not add to previous draw Performed By: #### 1 0070, 54305, 75299, 80008 #### [facility] [address] [place] [address], [facility] Urea nitrogen [Mass/Vol] 10 mg/dL Normal 7-25 [facility] Comment on above: Order Comment: No: D o not add to previous draw Performed By: #### 1 0070, 58277, 74980, 20955 #### [facility] [address] [place] [id number], [facility] CBC COMPLETE BLOOD COUNTon 0 - Erythrocyte distribution width (RBC) [Ratio] 16.7 % High 11.5-15.0 [facility] Comment on above: Order Comment: No: D o not add to previous draw Performed By: #### 4 999, , 83598 #### [facility] [address] [place] [address], [facility] Hematocrit (Bld) [Volume fraction] 30.8 % Low 36.0-45.0 [facility] Comment on above: Order Comment: No: D o not add to previous draw Performed By: #### 4 999, , 54111 #### [facility] [address] [place] [address], [place] Hemoglobin (Bld) [Mass/Vol] 9.7 g/dL Low 12.0-15.0 [facility] Comment on above: Order Comment: No: D o not add to previous draw Performed By: #### 4 1000, , 31804 #### [facility] [address] [place] [address], [facility] MCH (RBC) [Entitic mass] 27.8 pg Normal 27.0-33.0 [facility] Comment on above: Order Comment: No: D o not add to previous draw Performed By: #### 4 1000, , 32970 #### [facility] [address] [place] [id number], [facility] MCHC (RBC) [Mass/Vol] 31.5 g/dL Low 32.0-35.0 [facility] Comment on above: Order Comment: No: D o not add to previous draw Performed By: #### 4 1000, , 56522 #### [facility] [address] [place] [address], [facility] MCV (RBC) [Entitic vol] 88.3 fL Normal 82.0-98.0 [facility] Comment on above: Order Comment: No: D o not add to previous draw Performed By: #### 4 1000, , 80504 #### [facility] [address] [place] [address], [facility] Nucleated RBC/100 WBC (Bld) [Ratio] 0 % Normal 0-0 [facility] Comment on above: Order Comment: No: D o not add to previous draw Performed By: #### 4 1000, , 63376 #### [facility] [address] [place] [id number], [place] PLAT CNT 238 10*3/uL Normal 150-400 [facility] Comment on above: Order Comment: No: D o not add to previous draw Performed By: #### 4 1000, , 77937 #### [facility] [address] [place] [id number], [facility] RBC (Bld) [#/Vol] 3.49 10*6/uL Low 3.80-5.00 [facility] Comment on above: Order Comment: No: D o not add to previous draw Performed By: #### 4 1000, 83127, 89485 #### [facility] [address] [place] [address], [facility] WBC (Bld) [#/Vol] 9.13 10*3/uL Normal 4.00-10.60 [facility] Comment on above: Order Comment: No: D o not add to previous draw Performed By: #### 4 1000, 65366, 09022 #### [facility] [address] [place] [address], [facility] LIVER BATTERYon 12-24-2021 Albumin [Mass/Vol] 2.9 g/dL Low 3.5-5.7 [facility] Comment on above: Order Comment: No: D o not add to previous draw Performed By: #### 1 0070, 94603, 41808, 51867 #### [facility] [address] [place] [address], [place] ALKALINE PHOSPH 65 IU/L Normal 34-104 [facility] Comment on above: Order Comment: No: D o not add to previous draw Performed By: #### 1 0070, 14210, 01078, 91881 #### [facility] [address] [place] [address], [place] ALT [Catalytic activity/Vol] 8 U/L Normal 7-52 [facility] Comment on above: Order Comment: No: D o not add to previous draw Performed By: #### 1 0070, 95583, 99091, 32550 #### [facility] [address] [place] [address], [place] AST [Catalytic activity/Vol] 19 U/L Normal 13-39 [facility] Comment on above: Order Comment: No: D o not add to previous draw Performed By: #### 1 0070, 26988, 27392, 51598 #### [facility] [address] [place] [address], [place] Bilirubin [Mass/Vol] 0.7 mg/dL Normal 0.3-1.0 [facility] Comment on above: Order Comment: No: D o not add to previous draw Performed By: #### 1 0070, 42023, 60175, 98180 #### [facility] [address] [place] [address], [place] Bilirubin.direct [Mass/Vol] 0.2 mg/dL Normal 0.0-0.2 [facility] Comment on above: Order Comment: No: D o not add to previous draw Performed By: #### 1 0070, 65019, 30656, 91587 #### [facility] [address] [place] [address], [facility] Protein [Mass/Vol] 5.9 g/dL Low 6.0-8.3 [facility] Comment on above: Order Comment: No: D o not add to previous draw Performed By: #### 1 0070, 89077, 95036, 93033 #### [facility] [address] [place] [address], [facility] MAGNESIUM BLOODon 12-24-2021 Magnesium [Mass/Vol] 1.8 mg/dL Low 1.9-2.7 [facility] Comment on above: Order Comment: No: D o not add to previous draw Performed By: #### 1 0070, 46929, 04419, 89898 #### [facility] [address] [place] [address], [place] PHOSPHORUS BLOODon Phosphate [Mass/Vol] 3.1 mg/dL Normal 2.5-5.0 [facility] Comment on above: Order Comment: No: D o not add to previous draw Performed By: #### 1 0070, 56070, 94764, 41438 #### [facility] [address] [place] [address], [place] POC GLUCOSE LABon 12-24-2021 Glucose [Mass/Vol] 101 mg/dL High 70-100 [facility] Comment on above: Performed By: #### 8 5499 #### [facility] [address] [place] [address], [place] Glucose [Mass/Vol] 82 mg/dL Normal 70-100 [facility] Comment on above: Performed By: #### 4 1000, 35031, 20630 #### [facility] [address] [place] [address], [place] Glucose [Mass/Vol] 81 mg/dL Normal 70-100 [facility] Comment on above: Performed By: #### 8 5499 #### [facility] [address] [place] [address], [place] Glucose [Mass/Vol] 59 mg/dL Low 70-100 [facility] Comment on above: Performed By: #### 8 5499 #### [facility] [address] [place] [address], [place] BASIC METABOLIC PANELon 07-0 Calcium [Mass/Vol] 8.0 mg/dL Low 8.6-10.3 [facility] Comment on above: Order Comment: No: D o not add to previous draw Performed By: #### 8 5499 #### [facility] [address] [place] [address], [place] Chloride [Moles/Vol] 102 mmol/L Normal 98-107 [facility] Comment on above: Order Comment: No: D o not add to previous draw Performed By: #### 8 [id number] #### [facility] [address] [place] [address], [place] CO2 [Moles/Vol] 26 mmol/L Normal 21-31 [facility] Comment on above: Order Comment: No: D o not add to previous draw Performed By: #### 8 [id number] #### [facility] [address] [place] [address], [place] Creatinine [Mass/Vol] 0.58 mg/dL Low 0.60-1.20 [facility] Comment on above: Order Comment: No: D o not add to previous draw Performed By: #### 8 5499 #### [facility] [address] [place] [address], [place] GFR/1.73 sq M.predicted among blacks MDRD (S/P/Bld) [Vol rate/Area] mL/min/{1.73_m2} Normal >60 [facility] Comment on above: Order Comment: No: D o not add to previous draw Result Comment: Calc ulation may not be valid for patients over 70 years Performed By: #### 8 5499 #### [facility] [address] [place] [address], [facility] GFR/1.73 sq M.predicted among non-blacks MDRD (S/P/Bld) [Vol rate/Area] mL/min/{1.73_m2} Normal >60 [facility] Comment on above: Order Comment: No: D o not add to previous draw Result Comment: Calc ulation may not be valid for patients over 70 years Performed By: #### 8 5499 #### [facility] [address] [place] [address], [place] Glucose [Mass/Vol] 78 mg/dL Normal 70-100 [facility] Comment on above: Order Comment: No: D o not add to previous draw Performed By: #### 8 5499 #### [facility] [address] [place] [address], [place] Potassium [Moles/Vol] 3.6 mmol/L Normal 3.5-5.1 [facility] Comment on above: Order Comment: No: D o not add to previous draw Performed By: #### 8 5499 #### [facility] [address] [place] [address], [place] Sodium [Moles/Vol] 134 mmol/L Low 136-145 [facility] Comment on above: Order Comment: No: D o not add to previous draw Performed By: #### 8 [id number] #### [facility] [address] [place] [address], [facility] Urea nitrogen [Mass/Vol] 14 mg/dL Normal 7-25 [facility] Comment on above: Order Comment: No: D o not add to previous draw Performed By: #### 8 [id number] #### [facility] [address] CBC COMPLETE BLOOD COUNTon 0 12-23-2021 Erythrocyte distribution width (RBC) [Ratio] 17.1 % High 11.5-15.0 [facility] Comment on above: Order Comment: No: D o not add to previous draw Performed By: #### 4 1000, , 72759 #### [facility] [address] Hematocrit (Bld) [Volume fraction] 28.4 % Low 36.0-45.0 [facility] Comment on above: Order Comment: No: D o not add to previous draw Performed By: #### 4 1000, , 76403 #### [facility] [address] [place] [address], [facility] Hemoglobin (Bld) [Mass/Vol] 9.3 g/dL Low 12.0-15.0 [facility] Comment on above: Order Comment: No: D o not add to previous draw Performed By: #### 4 1000, , 46156 #### [facility] [address] [place] [address], [place] MCH (RBC) [Entitic mass] 28.2 pg Normal 27.0-33.0 [facility] Comment on above: Order Comment: No: D o not add to previous draw Performed By: #### 4 1000, , 28718 #### [facility] [address] [place] [id number], [facility] MCHC (RBC) [Mass/Vol] 32.7 g/dL Normal 32.0-35.0 [facility] Comment on above: Order Comment: No: D o not add to previous draw Performed By: #### 4 1000, , 72921 #### [facility] [address] [place] [address], [facility] MCV (RBC) [Entitic vol] 86.1 fL Normal 82.0-98.0 [facility] Comment on above: Order Comment: No: D o not add to previous draw Performed By: #### 4 1000, , 07845 #### [facility] [address] [place] [address], [facility] Nucleated RBC/100 WBC (Bld) [Ratio] 0 % Normal 0-0 [facility] Comment on above: Order Comment: No: D o not add to previous draw Performed By: #### 4 1000, , 90256 #### [facility] [address] [place] [address], [facility] PLAT CNT 193 10*3/uL Normal 150-400 [facility] Comment on above: Order Comment: No: D o not add to previous draw Performed By: #### 4 1000, , 34852 #### [facility] [address] [place] [address], [facility] RBC (Bld) [#/Vol] 3.30 10*6/uL Low 3.80-5.00 [facility] Comment on above: Order Comment: No: D o not add to previous draw Performed By: #### 4 1000, , 30804 #### [facility] [address] [place] [address], [place] WBC (Bld) [#/Vol] 9.87 10*3/uL Normal 4.00-10.60 [facility] Comment on above: Order Comment: No: D o not add to previous draw Performed By: #### 4 1000, , 13313 #### [facility] ABDOMEN AND PELVIS W IV A ND ORAL CONTRASTon 12-23-2021 CT ABDOMEN AND PELVIS W IV AND ORAL CONTRAST [facility] Department of Radiology [address] [place] [id number] Patient Name: SABI SANTAMARIA : 1945 Sex: F Age: Race: Other Pt. Location: [id number] Patient Status: I Ordered Date: 12/23/2021 9:05:00 AM Completed Date: 12/23/2021 12:33 PM Requesting Provider: SOFIE DOMINGUEZ Attending Provider: MINESH DALY Report Copy To: Signs & Symptoms: Abdominal Pain(specify) History: See Comments Comments: Other, lower abdominal pain. SBO? Exam: CT ABDOMEN AND PELVIS W IV AND ORAL CONTRAST CT ABDOMEN AND PELVIS W IV AND ORAL CONTRAST 12/23/2021 12:33 PM CLINICAL INDICATION: Abdominal Pain(specify) TECHNOLOGIST COMMENTS: lower abdomen pain increase with urination and diarrhea for three days hx: hysterectomy and appendectomy QUESTION FOR THE RADIOLOGIST: Other, lower abdominal pain. SBO? PROTOCOL: Axial CT images of the abdomen/pelvis were obtained with IV contrast. CONTRAST: Contrast: OMNIPAQUE 350 (LOCM), 100 milliliter, Intravenous Contrast: OMNIPAQUE 300 (LOCM), 30 milliliter, Oral TECHNIQUE: Multiple detector CT axial slices of the abdomen and pelvis were obtained with IV contrast. Multiplanar reformats were performed and viewed on a separate workstation and reviewed to further define anatomy and possible pathology. All CT scans at this facility use dose modulation, iterative reconstruction, and/or weight based dosing when appropriate to reduce radiation dose to as low as reasonably achievable COMPARISON: None. FINDINGS: Small bilateral pleural effusions are present. Calcification noted on the mitral valve annulus. The liver, spleen, adrenals, pancreas and gallbladder appear unremarkable. The kidneys concentrate contrast satisfactorily a cyst is present in the mid left kidney measuring a maximum of 6.2 cm. An NG tube is noted with its tip in the body the stomach. Oral contrast was given with contrast reaching the distal ileum. The stomach appears unremarkable. The proximal small bowel is moderately distended. The mid to distal ileum is decreased in caliber but contains oral contrast. Since stool present throughout the colon. The urinary bladder is moderately distended. No free air or free fluid is noted. The aorta appears unremarkable. Retroperitoneum is unremarkable except for the presence surgical clips which extend into the pelvis bilaterally. Mild anasarca noted in the abdominal wall. The study viewed at bone window shows degenerative change throughout the visualized spine with degenerative scoliosis. Right-sided hip arthroplasty identified. IMPRESSION: 1. Small bilateral pleural effusions and calcified mitral valve annulus. 2. Contrast has reached the distal ileum with moderate distention of the proximal small bowel and decreased caliber and the contrast containing ileum suggesting low-grade partial obstruction. 3. Left-sided renal cyst. 4. Surgical clips suggest lymph node dissection in the lower retroperitoneum in both pelvic sidewalls. 5. Mild anasarca. Electronically signed: Saundra Hyde. Transcribed by: [email or web address], User Resident: Electronically Signed by: SAUNDRA HYDE @ 12/23/2021 12:49 PM Normal [facility] Comment on above: Order Comment: No: D o not add to previous draw MAGNESIUM BLOODon 12-23-2021 Magnesium [Mass/Vol] 2.0 mg/dL Normal 1.9-2.7 [facility] Comment on above: Order Comment: No: D o not add to previous draw Performed By: #### 8 [id number] #### [facility] [address] [place] [address], [facility] PHOSPHORUS BLOODon Phosphate [Mass/Vol] 2.9 mg/dL Normal 2.5-5.0 [facility] Comment on above: Order Comment: No: D o not add to previous draw Performed By: #### 8 5499 #### [facility] [address] [place] [address], [place] BASIC METABOLIC PANELon 07-0 -2021 Calcium [Mass/Vol] 8.2 mg/dL Low 8.6-10.3 [facility] Comment on above: Order Comment: No: D o not add to previous draw Performed By: #### 8 5499 #### [facility] [address] [place] [address], [place] Chloride [Moles/Vol] 102 mmol/L Normal 98-107 [facility] Comment on above: Order Comment: No: D o not add to previous draw Performed By: #### 8 5499 #### [facility] [address] [place] [address], [place] CO2 [Moles/Vol] 25 mmol/L Normal 21-31 [facility] Comment on above: Order Comment: No: D o not add to previous draw Performed By: #### 8 5499 #### [facility] [address] [place] [address], [place] Creatinine [Mass/Vol] 0.65 mg/dL Normal 0.60-1.20 [facility] Comment on above: Order Comment: No: D o not add to previous draw Performed By: #### 8 5499 #### [facility] [address] [place] [address], [place] GFR/1.73 sq M.predicted among blacks MDRD (S/P/Bld) [Vol rate/Area] mL/min/{1.73_m2} Normal >60 [facility] Comment on above: Order Comment: No: D o not add to previous draw Result Comment: Calc ulation may not be valid for patients over 70 years Performed By: #### 8 5499 #### [facility] [address] [place] [address], [facility] GFR/1.73 sq M.predicted among non-blacks MDRD (S/P/Bld) [Vol rate/Area] mL/min/{1.73_m2} Normal >60 [facility] Comment on above: Order Comment: No: D o not add to previous draw Result Comment: Calc ulation may not be valid for patients over 70 years Performed By: #### 8 5499 #### [facility] [address] [place] [address], [facility] Glucose [Mass/Vol] 124 mg/dL High 70-100 [facility] Comment on above: Order Comment: No: D o not add to previous draw Performed By: #### 8 5499 #### [facility] [address] [place] [address], [facility] Potassium [Moles/Vol] 3.5 mmol/L Normal 3.5-5.1 [facility] Comment on above: Order Comment: No: D o not add to previous draw Performed By: #### 8 5499 #### [facility] [address] [place] [address], [facility] Sodium [Moles/Vol] 135 mmol/L Low 136-145 [facility] Comment on above: Order Comment: No: D o not add to previous draw Performed By: #### 8 5499 #### [facility] [address] [place] [address], [facility] Urea nitrogen [Mass/Vol] 19 mg/dL Normal 7-25 [facility] Comment on above: Order Comment: No: D o not add to previous draw Performed By: #### 8 5499 #### [facility] [address] [place] [address], [facility] CBC COMPLETE BLOOD COUNTon 0 - Erythrocyte distribution width (RBC) [Ratio] 16.7 % High 11.5-15.0 [facility] Comment on above: Order Comment: No: D o not add to previous draw Performed By: #### 4 1000, , 65206 #### [facility] [address] [place] [address], [facility] Hematocrit (Bld) [Volume fraction] 31.8 % Low 36.0-45.0 [facility] Comment on above: Order Comment: No: D o not add to previous draw Performed By: #### 4 1000, , 79468 #### [facility] [address] [place] [id number], [facility] Hemoglobin (Bld) [Mass/Vol] 10.2 g/dL Low 12.0-15.0 [facility] Comment on above: Order Comment: No: D o not add to previous draw Performed By: #### 4 1000, , #### [facility] [address] [place] [address], [facility] MCH (RBC) [Entitic mass] 27.8 pg Normal 27.0-33.0 [facility] Comment on above: Order Comment: No: D o not add to previous draw Performed By: #### 4 999, , 45042 #### [facility] [address] [place] [address], [facility] MCHC (RBC) [Mass/Vol] 32.1 g/dL Normal 32.0-35.0 [facility] Comment on above: Order Comment: No: D o not add to previous draw Performed By: #### 4 1000, , 85432 #### [facility] [address] [place] [id number], [facility] MCV (RBC) [Entitic vol] 86.6 fL Normal 82.0-98.0 [facility] Comment on above: Order Comment: No: D o not add to previous draw Performed By: #### 4 1000, , 12125 #### [facility] [address] [place] [id number], [facility] Nucleated RBC/100 WBC (Bld) [Ratio] 0 % Normal 0-0 [facility] Comment on above: Order Comment: No: D o not add to previous draw Performed By: #### 4 1000, 99828, 92756 #### [facility] [address] [place] [address], [facility] PLAT CNT 224 10*3/uL Normal 150-400 [facility] Comment on above: Order Comment: No: D o not add to previous draw Performed By: #### 4 1000, 60053, 65679 #### [facility] [address] [place] [address], [facility] RBC (Bld) [#/Vol] 3.67 10*6/uL Low 3.80-5.00 [facility] Comment on above: Order Comment: No: D o not add to previous draw Performed By: #### 4 1000, 22561, 81471 #### [facility] [address] [place] [address], [facility] WBC (Bld) [#/Vol] 10.68 10*3/uL High 4.00-10.60 [facility] Comment on above: Order Comment: No: D o not add to previous draw Performed By: #### 4 1000, 53080, 90448 #### [facility] [address] [place] [address], [facility] MAGNESIUM BLOODon 12-22-2021 Magnesium [Mass/Vol] 1.8 mg/dL Low 1.9-2.7 [facility] Comment on above: Order Comment: No: D o not add to previous draw Performed By: #### 8 9879 #### [facility] [address] [place] [address], [facility] PHOSPHORUS BLOODon 2 Phosphate [Mass/Vol] 3.2 mg/dL Normal 2.5-5.0 [facility] Comment on above: Order Comment: No: D o not add to previous draw Performed By: #### 8 9156 #### [facility] [address] *URINE CULTUREon 12-21-2021 *URINE CULTURE Clinical Report: (D) Specimen/Source: URINE/CLEAN VOID URINE Collected: 12/21/2021 18:00 Status: Final Last Updated: 12/23/2021 08:30 ISO (Final) Citrobacter koseri >100,000 Cfu/Ml ISOLATE: Citrobacter koseri MAHENDRA (mcg/ml) AMP./SULBAC (AMS) 4/2 Susceptible AMPICILLIN (AM) >16 Resistant AZTREONAM (AZM) <=2 Susceptible CEFAZOLIN (CZ) <=1 Susceptible CEFTRIAXONE (DRY KILN WORKER) <=1 Susceptible CIPROFLOXACIN (CIP) <=0.25 Susceptible GENTAMICIN (GM) <=2 Susceptible NITROFURANTOIN (FT) 64 Intermediate PIP/TAZO (TZP) 4/4 Susceptible TOBRAMYCIN (TOB) <=2 Susceptible TRIMETH/SULFA (SXT) <=0.5/9.5 Susceptible Normal [facility] Comment on above: Performed By: #### 8 5499 #### [facility] [address] BASIC METABOLIC PANELon Calcium [Mass/Vol] 8.8 mg/dL Normal 8.6-10.3 [facility] Comment on above: Order Comment: No: D o not add to previous draw Performed By: #### 4 999, 33784, 63695 #### [facility] [address] [place] [address], [facility] Chloride [Moles/Vol] 102 mmol/L Normal 98-107 [facility] Comment on above: Order Comment: No: D o not add to previous draw Performed By: #### 4 1000, 86324, 61844 #### [facility] [address] [place] [address], [facility] CO2 [Moles/Vol] 26 mmol/L Normal 21-31 [facility] Comment on above: Order Comment: No: D o not add to previous draw Performed By: #### 4 1000, , 04318 #### [facility] [address] [place] [address], [place] Creatinine [Mass/Vol] 0.57 mg/dL Low 0.60-1.20 [facility] Comment on above: Order Comment: No: D o not add to previous draw Performed By: #### 4 1000, , 01313 #### [facility] [address] [place] [address], [facility] GFR/1.73 sq M.predicted among blacks MDRD (S/P/Bld) [Vol rate/Area] mL/min/{1.73_m2} Normal >60 [facility] Comment on above: Order Comment: No: D o not add to previous draw Result Comment: Calc ulation may not be valid for patients over 70 years Performed By: #### 4 999, , 88733 #### [facility] [address] [place] [id number], [facility] GFR/1.73 sq M.predicted among non-blacks MDRD (S/P/Bld) [Vol rate/Area] mL/min/{1.73_m2} Normal >60 [facility] Comment on above: Order Comment: No: D o not add to previous draw Result Comment: Calc ulation may not be valid for patients over 70 years Performed By: #### 4 999, , 61843 #### [facility] [address] [place] [address], [place] Glucose [Mass/Vol] 124 mg/dL High 70-100 [facility] Comment on above: Order Comment: No: D o not add to previous draw Performed By: #### 4 1000, , 01367 #### [facility] [address] [place] [address], [place] Potassium [Moles/Vol] 4.3 mmol/L Normal 3.5-5.1 [facility] Comment on above: Order Comment: No: D o not add to previous draw Performed By: #### 4 1000, , 66904 #### [facility] [address] [place] [id number], [facility] Sodium [Moles/Vol] 135 mmol/L Low 136-145 [facility] Comment on above: Order Comment: No: D o not add to previous draw Performed By: #### 4 1000, , 68742 #### [facility] [address] [place] [id number], [facility] Urea nitrogen [Mass/Vol] 15 mg/dL Normal 7-25 [facility] Comment on above: Order Comment: No: D o not add to previous draw Performed By: #### 4 1000, , 73172 #### [facility] [address] CBC COMPLETE BLOOD COUNTon 0 12-21-2021 Erythrocyte distribution width (RBC) [Ratio] 16.6 % High 11.5-15.0 [facility] Comment on above: Order Comment: No: D o not add to previous draw Performed By: #### 4 1000, , 99948 #### [facility] [address] [place] [address], [facility] Hematocrit (Bld) [Volume fraction] 38.0 % Normal 36.0-45.0 [facility] Comment on above: Order Comment: No: D o not add to previous draw Performed By: #### 4 1000, , 81585 #### [facility] [address] [place] [id number], [facility] Hemoglobin (Bld) [Mass/Vol] 12.1 g/dL Normal 12.0-15.0 [facility] Comment on above: Order Comment: No: D o not add to previous draw Performed By: #### 4 1000, , 80950 #### [facility] [address] [place] [address], [facility] MCH (RBC) [Entitic mass] 27.5 pg Normal 27.0-33.0 [facility] Comment on above: Order Comment: No: D o not add to previous draw Performed By: #### 4 1000, , 43109 #### [facility] [address] [place] [address], [facility] MCHC (RBC) [Mass/Vol] 31.8 g/dL Low 32.0-35.0 [facility] Comment on above: Order Comment: No: D o not add to previous draw Performed By: #### 4 1000, , 06896 #### [facility] [address] [place] [address], [facility] MCV (RBC) [Entitic vol] 86.4 fL Normal 82.0-98.0 [facility] Comment on above: Order Comment: No: D o not add to previous draw Performed By: #### 4 1000, , #### [facility] [address] [place] [address], [facility] Nucleated RBC/100 WBC (Bld) [Ratio] 0 % Normal 0-0 [facility] Comment on above: Order Comment: No: D o not add to previous draw Performed By: #### 4 1000, , 78402 #### [facility] [address] [place] [address], [facility] PLAT CNT 289 10*3/uL Normal 150-400 [facility] Comment on above: Order Comment: No: D o not add to previous draw Performed By: #### 4 1000, , 86090 #### [facility] [address] [facility] [place] [id number], [facility] RBC (Bld) [#/Vol] 4.40 10*6/uL Normal 3.80-5.00 [facility] Comment on above: Order Comment: No: D o not add to previous draw Performed By: #### 4 1000, , 79801 #### [facility] [address] [place] [id number], [place] WBC (Bld) [#/Vol] 9.11 10*3/uL Normal 4.00-10.60 [facility] Comment on above: Order Comment: No: D o not add to previous draw Performed By: #### 4 1000, 40620, 84210 #### [facility] [address] [place] [address], [facility] MAGNESIUM BLOODon 12-21-2021 Magnesium [Mass/Vol] 1.8 mg/dL Low 1.9-2.7 [facility] Comment on above: Order Comment: No: D o not add to previous draw Performed By: #### 4 1000, 29611, 93364 #### [facility] [address] [place] [address], [facility] PHOSPHORUS BLOODon Phosphate [Mass/Vol] 3.7 mg/dL Normal 2.5-5.0 [facility] Comment on above: Order Comment: No: D o not add to previous draw Performed By: #### 4 1000, 77860, 04267 #### [facility] [address] [place] [address], [facility] POC GLUCOSE LABon 12-21-2021 Glucose [Mass/Vol] 124 mg/dL High 70-100 [facility] Comment on above: Performed By: #### 4 1000, 62709, 96124 #### [facility] [address] [place] [address], [facility] URINALYSIS REFLEXon 12-22-19 22 Appearance (U) CLOUDY Abnormal CLEAR [facility] Comment on above: Order Comment: No: D o not add to previous drawCriteria for reflexing a culture was met. Urine Culture and sensitivitywill be performed. Performed By: #### 8 5499 #### [facility] [address] [place] [address], [facility] Bilirubin Ql (U) Negative Normal NEGATIVE [facility] Comment on above: Order Comment: No: D o not add to previous drawCriteria for reflexing a culture was met. Urine Culture and sensitivitywill be performed. Performed By: #### 8 5499 #### [facility] [address] [place] [address], [place] Color (U) YELLOW Normal YELLOW [facility] Comment on above: Order Comment: No: D o not add to previous drawCriteria for reflexing a culture was met. Urine Culture and sensitivitywill be performed. Performed By: #### 8 5499 #### [facility] [address] [place] [address], [place] EPIS OCC Normal FEW,OCC,NO NE SEEN [facility] Comment on above: Order Comment: No: D o not add to previous drawCriteria for reflexing a culture was met. Urine Culture and sensitivitywill be performed. Performed By: #### [id number] #### [facility] [address] [place] [address], [place] Glucose Ql (U) Negative Normal NEGATIVE [facility] Comment on above: Order Comment: No: D o not add to previous drawCriteria for reflexing a culture was met. Urine Culture and sensitivitywill be performed. Performed By: #### [id number] #### [facility] [address] [place] [address], [place] Hemoglobin Ql (U) Negative Normal NEGATIVE [facility] Comment on above: Order Comment: No: D o not add to previous drawCriteria for reflexing a culture was met. Urine Culture and sensitivitywill be performed. Performed By: #### [id number] #### [facility] [address] [place] [address], [place] KETONE Negative Normal NEGATIVE [facility] Comment on above: Order Comment: No: D o not add to previous drawCriteria for reflexing a culture was met. Urine Culture and sensitivitywill be performed. Performed By: #### [id number] #### [facility] [address] [place] [address], [place] LEUK MICHELE LARGE Abnormal NEGATIVE [facility] Comment on above: Order Comment: No: D o not add to previous drawCriteria for reflexing a culture was met. Urine Culture and sensitivitywill be performed. Performed By: #### [id number] #### [facility] [address] [place] [address], [facility] MUCUS THREADS OCC Abnormal NONE SEEN [facility] Comment on above: Order Comment: No: D o not add to previous drawCriteria for reflexing a culture was met. Urine Culture and sensitivitywill be performed. Performed By: #### [id number] #### [facility] [address] [place] [address], [facility] Nitrite Ql (U) Positive Abnormal NEGATIVE [facility] Comment on above: Order Comment: No: D o not add to previous drawCriteria for reflexing a culture was met. Urine Culture and sensitivitywill be performed. Performed By: #### [id number] #### [facility] [address] [facility]. [address] pH (U) 5.0 [pH] Normal 5.0-8.0 [facility] Comment on above: Order Comment: No: D o not add to previous drawCriteria for reflexing a culture was met. Urine Culture and sensitivitywill be performed. Performed By: #### [id number] #### [facility] [address] [place] [address], [facility] Protein Ql (U) 30 mg/dL Abnormal NEGATIVE [facility] Comment on above: Order Comment: No: D o not add to previous drawCriteria for reflexing a culture was met. Urine Culture and sensitivitywill be performed. Performed By: #### [id number] #### [facility] [address] [facility] [place] [address], [facility] RBC NONE SEEN Normal NONE SEEN [facility] Comment on above: Order Comment: No: D o not add to previous drawCriteria for reflexing a culture was met. Urine Culture and sensitivitywill be performed. Performed By: #### [id number] #### [facility] [address] [facility] [place] [address], [facility] SPEC GRAV 1.025 High 1.015-1.02 0 [facility] Comment on above: Order Comment: No: D o not add to previous drawCriteria for reflexing a culture was met. Urine Culture and sensitivitywill be performed. Performed By: #### [id number] #### [facility] [address] [place] [address], [facility] WBC UA >100 Abnormal NONE SEEN [facility] Comment on above: Order Comment: No: D o not add to previous drawCriteria for reflexing a culture was met. Urine Culture and sensitivitywill be performed. Performed By: #### [id number] #### [facility] [address] [facility] [place] [place] [address], [facility] AMYLASEon 12-20-2021 Amylase [Catalytic activity/Vol] 47 U/L Normal 25-115 [facility] Comment on above: Performed By: #### A MY LIPA, CMP #### [facility] [address] [place] [address] Dr. Sung Moore CBC AUTO DIFFon 12-20-2021 BASO # 0.0 103/ul Normal 0.0-0.1 [facility] Comment on above: Performed By: #### A MY LIPA, CMP #### [facility] [address] [address] [address] Sung Moore Basophils/100 WBC (Bld) 0.1 % Critically low 0.2-2.0 [facility] Comment on above: Performed By: #### A MY LIPA, CMP #### [facility] [address] [address] [address] Sung Moore EO # 0.1 103/ul Normal 0.0-0.7 [facility] Comment on above: Performed By: #### A MY LIPA, CMP #### [facility] [address] [address] [address] Sung Moore Eosinophils/100 WBC (Bld) 0.5 % Critically low 0.9-7.0 [facility] Comment on above: Performed By: #### A CHILO ESTRADA, CMP #### [facility] [address] [place] [address] Dr. Sung Moore Erythrocyte distribution width (RBC) [Ratio] 16.4 % Critically high 11.0-15.0 [facility] Comment on above: Performed By: #### A CHILO ESTRADA, CMP #### [facility] [address] [place] [address] Dr. Sung Moore Hematocrit (Bld) [Volume fraction] 41.8 % Normal 36.0-48.0 [facility] Comment on above: Performed By: #### A CHILO ESTRADA, CMP #### [facility] [address] [place] [address] Dr. Sung Moore Hemoglobin (Bld) [Mass/Vol] 13.2 g/dL Normal 12.0-16.0 [facility] Comment on above: Performed By: #### A CHILO ESTRADA, CMP #### [facility] [address] [place] [address] Dr. Sung Moore IG # 0.07 10e3/ul Critically high 0.00-0.03 [facility] Comment on above: Performed By: #### A CHILO ESTRADA, CMP #### [facility] [address] [place] [address] Dr. Sung Moore IG % 0.5 % Normal 0.0-0.5 [facility] Comment on above: Performed By: #### A CHILO ESTRADA, CMP #### [facility] [address] [place] [address] Dr. Sung Moore LYMPH # 1.4 103/ul Normal 1.2-3.8 [facility] Comment on above: Performed By: #### A CHILO ESTRADA, CMP #### [facility] [address] [place] [address] Dr. Sung Moore Lymphocytes/100 WBC (Bld) 9.7 % Critically low 20.5-60.0 [facility] Comment on above: Performed By: #### A CHILO ESTRADA, CMP #### [facility] [address] [address] [address] Sung Moore MANUAL DIFF REQ NO Normal [facility] Comment on above: Performed By: #### A MY, LIPA, CMP #### [facility] [address] [address] [address] Sung Moore MCH (RBC) [Entitic mass] 27.4 pg Normal 26.7-34.0 [facility] Comment on above: Performed By: #### A MY, LIPA, CMP #### [facility] [address] [place] [address] Dr. Sung Moore MCHC (RBC) [Mass/Vol] 31.6 g/dL Normal 29.9-35.2 [facility] Comment on above: Performed By: #### A MY, LIPA, CMP #### [facility] [address] [place] [address] Dr. Sung Moore MCV (RBC) [Entitic vol] 86.9 fL Normal 81.0-99.0 [facility] Comment on above: Performed By: #### A MY, LIPA, CMP #### [facility] [address] [place] [address] Dr. Sung Moore MONO # 0.7 103/ul Normal 0.3-0.8 [facility] Comment on above: Performed By: #### A MY, LIPA, CMP #### [facility] [address] [place] [address] Dr. Sung Moore Monocytes/100 WBC (Bld) 5.3 % Normal 1.7-12.0 [facility] Comment on above: Performed By: #### A MY, LIPA, CMP #### [facility] [address] [place] [address] Dr. Sung Moore NEUT # 11.8 103/ul Critically high 1.4-6.5 [facility] Comment on above: Performed By: #### A MY, LIPA, CMP #### [facility] [address] [place] [address] Dr. Sung Moore Neutrophils/100 WBC (Bld) 83.9 % Critically high 43.0-75.0 [facility] Comment on above: Performed By: #### A CHILO ESTRADA, CMP #### [facility] [address] [place] [address] Dr. Sung Moore Platelet mean volume (Bld) [Entitic vol] 9.9 fL Normal 9.5-13.5 [facility] Comment on above: Performed By: #### A CHILO ESTRADA, CMP #### [facility] [address] [address] [address] Sung Moore PLT 335 103/ul Normal 150-450 [facility] Comment on above: Performed By: #### A CHILO ESTRADA, CMP #### [facility] [address] [place] [address] Dr. Sung Moore RBC 4.81 106/ul Normal 4.20-5.40 [facility] Comment on above: Performed By: #### CHILO MCCLENDON, CMP #### [facility] [address] [place] [address] Dr. Sung Moore WBC 14.1 103/ul Critically high 4.0-11.0 [facility] Comment on above: Performed By: #### A CHILO ESTRADA, CMP #### [facility] [address] [place] [address] ABD/PELV W CONon 12-21-19 CT ABD/PELV W CON EXAMINATION: CT ABD/ PELV W CON HISTORY: ABDOMINAL DISTENSION (GASEOUS) ; acute abdominal pain radiating to left flank COMPARISON: CT abdomen pelvis 11/10/2021 TECHNIQUE: Axial, Coronal, and Sagittal images were created with IV contrast. Dose reduction techniques were achieved by using automated exposure control and/or adjustment of mA and/or kV according to patient size and/or use of iterative reconstruction technique. FINDINGS: LUNG BASES: No visible pulmonary or pleural disease. LIVER: No enlargement, atrophy, suspicious density, or significant focal lesion. BILIARY: No dilatation or calcification. PANCREAS: No lesion, fluid collection, or abnormal duct dilatation. SPLEEN: No enlargement or focal lesion. ADRENALS: No mass or enlargement. KIDNEYS: Small hypodensity within right superior pole; cyst versus scarring. Large 6.8 cm cyst arising from mid body of left kidney. No mass, obstruction, or calcification. BOWEL/MESENTERY: Fluid-filled loops of proximal and mid small bowel distended up to 3.1 cm. Marked circumferential wall thickening of an approximately 20 cm segment of small bowel within the anterior lower left pelvis. Small amount of collapsed distal small bowel without a definable transition point, but suspected to be immediately after the wall thickened inflamed segment. Small-moderate amount of free fluid surrounding the liver, within the paracolic gutters, and within the pelvis. AORTA/VASCULAR: No aneurysm or dissection. RETROPERITONEUM: No mass or adenopathy. LYMPH NODES: No adenopathy. URINARY BLADDER: No visible focal wall thickening, lesion, or calculus. PELVIC ORGANS: Hysterectomy. Numerous surgical clips/anchors scattered within the pelvis causing metallic streak artifact. ABDOMINAL WALL: No mass or hernia. BONES: Right hip replacement causing metallic streak artifact within the pelvis. Acute bone abnormality. Multilevel marked degenerative disc disease. 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 OTHER: Negative. IMPRESSION: 1. Marked wall thickening and inflammatory changes along segment of small bowel within the lower left pelvis suspected to be obstructing or partially obstructing the small bowel. Findings suggest focal enteritis or inflammatory bowel disease. 2. Small-moderate amount of free fluid, likely edematous from distended small bowel. No free air to suggest perforation. 3. Marked degenerative changes of the lumbar spine. Electronically authenticated by: DION SNOWDEN Date: 2021-12-20 13:12 Normal [facility]on SARS-CoV-2 (COVID-19) RNA ROMY+probe Ql (Unsp spec) Not detected Normal NOT DETECTED [facility] Comment on above: Result Comment: When diagnostic testing is negative, the possibility of a false negative should be considered in the context of a patient's recent exposures and the presence of clinical signs and symptoms consistent with SARS-CoV-2. This test is not yet approved or cleared by the [place] FDA. When there are no FDA-approved or cleared tests available, and other criteria are met, FDA can make tests available under an emergency access mechanism called an Emergency Use Authorization (EUA). The EUA for this test is supported by the [employer]er of Health and Human Service's declaration that circumstances exist to justify the emergency use of in vitro diagnostics for the detection and/or diagnosis of the virus that causes COVID-19. This EUA will remain in effect for the duration of the COVID-19 declaration justifying emergency of IVDs, unless it is terminated or revoked by the FDA (after which the test may no longer be used). Performed By: #### L ACT #### [facility] [address] [place] [address] Dr. Sung Moore LIPASEon 12-20-2021 Lipase [Catalytic activity/Vol] 93.0 U/L Normal 73.0-393.0 [facility] Comment on above: Performed By: #### A MY, LIPA, CMP #### [facility] [address] [place] [address] Dr. Sung Moore PROF 14(COMP METB)on 022 Albumin [Mass/Vol] 3.6 g/dL Normal 3.4-5.0 [facility] Comment on above: Performed By: #### A MY, LIPA, CMP #### [facility] [address] [place] [address] Dr. Sung Moore Albumin/Globulin [Mass ratio] 0.7 {ratio} Normal [facility] Comment on above: Performed By: #### A MY, LIPA, CMP #### [facility] [address] [place] [address] Dr. Sung Moore ALP [Catalytic activity/Vol] 128 U/L Critically high 46-116 [facility] Comment on above: Performed By: #### A MY, LIPA, CMP #### [facility] [address] [place] [address] Dr. Sung Moore ALT [Catalytic activity/Vol] 20 U/L Normal 14-59 [facility] Comment on above: Performed By: #### A MY, LIPA, CMP #### [facility] [address] [place] [address] Dr. Sung Moore Anion gap [Moles/Vol] 11.7 mmol/L Normal [facility] Comment on above: Performed By: #### A MY, LIPA, CMP #### [facility] [address] [place] [address] Dr. Sung Moore AST [Catalytic activity/Vol] 22 U/L Normal 15-37 [facility] Comment on above: Performed By: #### A MY, LIPA, CMP #### [facility] [address] [place] [address] Dr. Sung Moore Bilirubin [Mass/Vol] 0.8 mg/dL Normal 0.2-1.0 [facility] Comment on above: Performed By: #### A MY, LIPA, CMP #### [facility] [address] [place] [address] Dr. Sung Moore Calcium [Mass/Vol] 9.8 mg/dL Normal 8.5-10.1 [facility] Comment on above: Performed By: #### A MY, LIPA, CMP #### [facility] [address] [place] [address] Dr. Sung Moore Chloride [Moles/Vol] 99 mmol/L Normal 98-107 [facility] Comment on above: Performed By: #### A MY, LIPA, CMP #### [facility] [address] [place] [address] Dr. Sung Moore CO2 [Moles/Vol] 26.6 mmol/L Normal 21.0-32.0 [facility] Comment on above: Performed By: #### A MY, LIPA, CMP #### [facility] [address] [place] [address] Dr. Sung Moore Creatinine [Mass/Vol] 0.82 mg/dL Normal 0.55-1.02 [facility] Comment on above: Performed By: #### A MY, LIPA, CMP #### [facility] [address] [place] [address] Dr. Sung Moore EGFR-AF SOUTH AFRICAN >60 Normal >=60 [facility] Comment on above: Performed By: #### A MY, LIPA, CMP #### [facility] [address] [place] [address] Dr. Sung Moore EGFR-NON AF [place] >60 Normal >=60 [facility] Comment on above: Performed By: #### A SEAN LIPA, CMP #### [facility] [address] [place] [address] Dr. Sung Moore Globulin (S) [Mass/Vol] 5.0 g/dL Normal [facility] Comment on above: Performed By: #### A MY LIPA, CMP #### [facility] [address] [place] [address] Dr. Sung Moore Glucose [Mass/Vol] 188 mg/dL Critically high 74-106 [facility] Comment on above: Performed By: #### A SEAN LIPA, CMP #### [facility] [address] [place] [address] Dr. Sung Moore Potassium [Moles/Vol] 4.3 mmol/L Normal 3.5-5.1 [facility] Comment on above: Performed By: #### A SEAN LIPA, CMP #### [facility] [address] [place] [address] Dr. Sung Moore Protein [Mass/Vol] 8.6 g/dL Critically high 6.4-8.2 [facility] Comment on above: Performed By: #### A SEAN LIPA, CMP #### [facility] [address] [place] [address] Dr. Sung Moore Sodium [Moles/Vol] 133 mmol/L Critically low 136-145 [facility] Comment on above: Performed By: #### A SEAN LIPA, CMP #### [facility] [address] [place] [address] Dr. Sung Moore Urea nitrogen [Mass/Vol] 15.0 mg/dL Normal 7.0-18.0 [facility] Comment on above: Performed By: #### A MY LIPA, CMP #### [facility] [address] [place] [address] Dr. Sung Moore Urea nitrogen/Creatinine [Mass ratio] 18.3 mg/mg Normal [facility] Comment on above: Performed By: #### A SEAN LIPA, CMP #### [facility] [address] [address] [address] Sung Moore XR KUB 1 VIEWon 12-20-2021 XR KUB 1 VIEW EXAMINATION: XR KUB 1 VIEW HISTORY: Nasogastric tube in situ COMPARISON: No relevant comparison available. FINDINGS: BOWEL GAS PATTERN: Nasogastric tube within body of stomach. No abnormal bowel dilation. CALCIFICATIONS: None significant. OTHER: Oral contrast from recent study within kidneys and urinary bladder. Numerous abdominal and pelvic surgical clips. IMPRESSION: 1. Nasogastric tube within body of stomach. Electronically authenticated by: DION SNOWDEN Date: 2021-12-20 14:16 Normal [facility] BNPon 11-13-2021 Natriuretic peptide B (Bld) [Mass/Vol] 3120.0 pg/mL Critically high <=1,800.0 [facility] Comment on above: Performed By: #### C MP, BNP #### [facility] [address] [place] [address] Dr. Sung Moore CBC AUTO DIFFon 11-13-2021 BASO # 0.0 103/ul Normal 0.0-0.1 [facility] Comment on above: Performed By: #### C RP, CMP #### [facility] [address] [address] [address] Sung Moore Basophils/100 WBC (Bld) 0.1 % Critically low 0.2-2.0 [facility] Comment on above: Performed By: #### C RP, CMP #### [facility] [address] [address] [address] Sung Moore EO # 0.0 103/ul Normal 0.0-0.7 [facility] Comment on above: Performed By: #### C RP, CMP #### [facility] [address] [address] [address] Sung Moore Eosinophils/100 WBC (Bld) 0.0 % Critically low 0.9-7.0 [facility] Comment on above: Performed By: #### C RP, CMP #### [facility] [address] [place] [address] Dr. Sung Moore Erythrocyte distribution width (RBC) [Ratio] 15.8 % Critically high 11.0-15.0 [facility] Comment on above: Performed By: #### C RP, CMP #### [facility] [address] [place] [address] Dr. Sung Moore Hematocrit (Bld) [Volume fraction] 27.5 % Critically low 36.0-48.0 [facility] Comment on above: Performed By: #### C RP, CMP #### [facility] [address] [place] [address] Dr. Sung Moore Hemoglobin (Bld) [Mass/Vol] 8.6 g/dL Critically low 12.0-16.0 [facility] Comment on above: Performed By: #### C RP, CMP #### [facility] [address] [place] [address] Dr. Sugn Moore IG # 0.10 10e3/ul Critically high 0.00-0.03 [facility] Comment on above: Performed By: #### C RP, CMP #### [facility] [address] [place] [address] Dr. Sung Moore IG % 0.7 % Critically high 0.0-0.5 [facility] Comment on above: Performed By: #### C RP, CMP #### [facility] [address] [place] [address] Dr. Sung Moore LYMPH # 1.2 103/ul Normal 1.2-3.8 [facility] Comment on above: Performed By: #### C RP, CMP #### [facility] [address] [place] [address] Dr. Sung Moore Lymphocytes/100 WBC (Bld) 9.3 % Critically low 20.5-60.0 [facility] Comment on above: Performed By: #### C RP, CMP #### [facility] [address] [place] [address] Dr. Sung Moore MANUAL DIFF REQ NO Normal [facility] Comment on above: Performed By: #### C RP, CMP #### [facility] [address] [place] [address] Dr. Sung Moore MCH (RBC) [Entitic mass] 27.4 pg Normal 26.7-34.0 [facility] Comment on above: Performed By: #### C RP, CMP #### [facility] [address] [place] [address] Dr. Sung Moore MCHC (RBC) [Mass/Vol] 31.3 g/dL Normal 29.9-35.2 [facility] Comment on above: Performed By: #### C RP, CMP #### [facility] [address] [place] [address] Dr. Sung Moore MCV (RBC) [Entitic vol] 87.6 fL Normal 81.0-99.0 [facility] Comment on above: Performed By: #### C RP, CMP #### [facility] [address] [place] [address] Dr. Sung Moore MONO # 0.2 103/ul Critically low 0.3-0.8 [facility] Comment on above: Performed By: #### C RP, CMP #### [facility] [address] [place] [address] Dr. Sung Moore Monocytes/100 WBC (Bld) 1.6 % Critically low 1.7-12.0 [facility] Comment on above: Performed By: #### C RP, CMP #### [facility] [address] [place] [address] Dr. Sung Moore NEUT # 11.8 103/ul Critically high 1.4-6.5 [facility] Comment on above: Performed By: #### C RP, CMP #### [facility] [address] [place] [address] Dr. Sung Moore Neutrophils/100 WBC (Bld) 88.3 % Critically high 43.0-75.0 [facility] Comment on above: Performed By: #### C RP, CMP #### [facility] [address] [place] [address] Dr. Sung Moore Platelet mean volume (Bld) [Entitic vol] 9.5 fL Normal 9.5-13.5 [facility] Comment on above: Performed By: #### C RP, CMP #### [facility] [address] [address] [address] Sung Moore PLT 239 103/ul Normal 150-450 [facility] Comment on above: Performed By: #### C RP, CMP #### [facility] [address] [address] [address] Sung Moore RBC 3.14 106/ul Critically low 4.20-5.40 [facility] Comment on above: Performed By: #### C RP, CMP #### [facility] [address] [address] [address] Sung Moore WBC 13.4 103/ul Critically high 4.0-11.0 [facility] Comment on above: Performed By: #### C RP, CMP #### [facility] [address] [place] [address] Dr. Sung Moore PROF 14(COMP METB)on 022 Albumin [Mass/Vol] 2.4 g/dL Critically low 3.4-5.0 [facility] Comment on above: Performed By: #### C MP, BNP #### [facility] [address] [place] [address] Dr. Sung Moore Albumin/Globulin [Mass ratio] 0.6 {ratio} Normal [facility] Comment on above: Performed By: #### C MP, BNP #### [facility] [address] [place] [address] Dr. Sung Moore ALP [Catalytic activity/Vol] 68 U/L Normal 46-116 [facility] Comment on above: Performed By: #### C MP, BNP #### [facility] [address] [place] [address] Dr. Sung Moore ALT [Catalytic activity/Vol] 21 U/L Normal 14-59 [facility] Comment on above: Performed By: #### C MP, BNP #### [facility] [address] [place] [address] Dr. Sung Moore Anion gap [Moles/Vol] 14.9 mmol/L Normal [facility] Comment on above: Performed By: #### C MP, BNP #### [facility] [address] [address] [address] Sung Moore AST [Catalytic activity/Vol] 22 U/L Normal 15-37 [facility] Comment on above: Performed By: #### C MP, BNP #### [facility] [address] [place] [address] Dr. Sung Moore Bilirubin [Mass/Vol] 0.2 mg/dL Normal 0.2-1.0 [facility] Comment on above: Performed By: #### C MP, BNP #### [facility] [address] [place] [address] Dr. Sung Moore Calcium [Mass/Vol] 8.6 mg/dL Normal 8.5-10.1 [facility] Comment on above: Performed By: #### C MP, BNP #### [facility] [address] [place] [address] Dr. Sung Moore Chloride [Moles/Vol] 108 mmol/L Critically high 98-107 [facility] Comment on above: Performed By: #### C MP, BNP #### [facility] [address] [place] [address] Dr. Sung Moore CO2 [Moles/Vol] 20.1 mmol/L Critically low 21.0-32.0 [facility] Comment on above: Performed By: #### C MP, BNP #### [facility] [address] [place] [address] Dr. Sung Moore Creatinine [Mass/Vol] 0.74 mg/dL Normal 0.55-1.02 [facility] Comment on above: Performed By: #### C MP, BNP #### [facility] [address] [place] [address] Dr. Sung Moore EGFR-AF SOUTH AFRICAN >60 Normal >=60 [facility] Comment on above: Performed By: #### C MP, BNP #### [facility] [address] [place] [address] Dr. Sung Moore EGFR-NON AF SOUTH AFR[place] >60 Normal >=60 [facility] Comment on above: Performed By: #### C MP, BNP #### [facility] [address] [place] [address] Dr. Sung Moore Globulin (S) [Mass/Vol] 4.3 g/dL Normal [facility] Comment on above: Performed By: #### C MP, BNP #### [facility] [address] [place] [address] Dr. Sung Moore Glucose [Mass/Vol] 138 mg/dL Critically high 74-[address] [facility] Comment on above: Performed By: #### C MP, BNP #### [facility] [address] [place] [address] Dr. Sung Moore Potassium [Moles/Vol] 4.0 mmol/L Normal 3.5-5.1 [facility] Comment on above: Performed By: #### C MP, BNP #### [facility] [address] [place] [address] Dr. Sung Moore Protein [Mass/Vol] 6.7 g/dL Normal 6.4-8.2 [facility] Comment on above: Performed By: #### C MP, BNP #### [facility] [address] [place] [address] Dr. Sung Moore Sodium [Moles/Vol] 139 mmol/L Normal 136-145 [facility] Comment on above: Performed By: #### C MP, BNP #### [facility] [address] [place] [address] Dr. Sung Moore Urea nitrogen [Mass/Vol] 23.0 mg/dL Critically high 7.0-18.0 [facility] Comment on above: Performed By: #### C MP, BNP #### [facility] [address] [place] [address] Dr. Sung Moore Urea nitrogen/Creatinine [Mass ratio] 31.1 mg/mg Normal [facility] Comment on above: Performed By: #### C MP, BNP #### [facility] [address] [place] [address] Dr. Sung Moore BNPon 11-12-2021 Natriuretic peptide B (Bld) [Mass/Vol] 3014.0 pg/mL Critically high <=1,800.0 [facility] Comment on above: Performed By: #### L ACT #### [facility] [address] [address] [address] Sung Moore CBC AUTO DIFFon 11-12-2021 BASO # 0.0 103/ul Normal 0.0-0.1 [facility] Comment on above: Performed By: #### C BC #### [facility] [address] [address] [address] Sung Moore Basophils/100 WBC (Bld) 0.1 % Critically low 0.2-2.0 [facility] Comment on above: Performed By: #### C BC #### [facility] [address] [place] [address] Dr. Sung Moore EO # 0.0 103/ul Normal 0.0-0.7 [facility] Comment on above: Performed By: #### C BC #### [facility] [address] [place] [address] Dr. Sung Moore Eosinophils/100 WBC (Bld) 0.0 % Critically low 0.9-7.0 [facility] Comment on above: Performed By: #### C BC #### [facility] [address] [place] [address] Dr. Sung Moore Erythrocyte distribution width (RBC) [Ratio] 15.5 % Critically high 11.0-15.0 [facility] Comment on above: Performed By: #### C BC #### [facility] [address] [place] [address] Dr. Sung Moore Hematocrit (Bld) [Volume fraction] 28.4 % Critically low 36.0-48.0 [facility] Comment on above: Performed By: #### C BC #### [facility] [address] [place] [address] Dr. Sung Moore Hemoglobin (Bld) [Mass/Vol] 8.8 g/dL Critically low 12.0-16.0 [facility] Comment on above: Performed By: #### C BC #### [facility] [address] [place] [address] Dr. Sung Moore IG # 0.06 10e3/ul Critically high 0.00-0.03 [facility] Comment on above: Performed By: #### C BC #### [facility] [address] [place] [address] Dr. Sung Moore IG % 0.4 % Normal 0.0-0.5 [facility] Comment on above: Performed By: #### C BC #### [facility] [address] [place] [address] Dr. Sung Moore LYMPH # 1.3 103/ul Normal 1.2-3.8 [facility] Comment on above: Performed By: #### C BC #### [facility] [address] [place] [address] Dr. Sung Moore Lymphocytes/100 WBC (Bld) 9.2 % Critically low 20.5-60.0 [facility] Comment on above: Performed By: #### C BC #### [facility] [address] [place] [address] Dr. Sung Moore MANUAL DIFF REQ NO Normal [facility] Comment on above: Performed By: #### C BC #### [facility] [address] [place] [address] Dr. Sung Moore MCH (RBC) [Entitic mass] 27.2 pg Normal 26.7-34.0 [facility] Comment on above: Performed By: #### C BC #### [facility] [address] [place] [address] Dr. Sung Moore MCHC (RBC) [Mass/Vol] 31.0 g/dL Normal 29.9-35.2 [facility] Comment on above: Performed By: #### C BC #### [facility] [address] [place] [address] Dr. Sung Moore MCV (RBC) [Entitic vol] 87.7 fL Normal 81.0-99.0 [facility] Comment on above: Performed By: #### C BC #### [facility] [address] [place] [address] Dr. Sung Moore MONO # 0.5 103/ul Normal 0.3-0.8 [facility] Comment on above: Performed By: #### C BC #### [facility] [address] [address] [address] Sung Moore Monocytes/100 WBC (Bld) 3.5 % Normal 1.7-12.0 [facility] Comment on above: Performed By: #### C BC #### [facility] [address] [address] [address] Sung Moore NEUT # 12.1 103/ul Critically high 1.4-6.5 [facility] Comment on above: Performed By: #### C BC #### [facility] [address] [place] [address] Dr. Sung Moore Neutrophils/100 WBC (Bld) 86.8 % Critically high 43.0-75.0 [facility] Comment on above: Performed By: #### C BC #### [facility] [address] [place] [address] Dr. Sung Moore Platelet mean volume (Bld) [Entitic vol] 9.8 fL Normal 9.5-13.5 [facility] Comment on above: Performed By: #### C BC #### [facility] [address] [address] [address] Sung Moore PLT 250 103/ul Normal 150-450 [facility] Comment on above: Performed By: #### C BC #### [facility] [address] [place] [address] Dr. Sung Moore RBC 3.24 106/ul Critically low 4.20-5.40 [facility] Comment on above: Performed By: #### C BC #### [facility] [address] [place] [address] Dr. Sung Moore WBC 13.9 103/ul Critically high 4.0-11.0 [facility] Comment on above: Performed By: #### C BC #### [facility] [address] [place] [address] Dr. Sung Moore CULTURE URINEon 11-12-2021 CULTURE URINE Isolate 1 Escherichia coli >100,000 cfu/mL of ORGANISM 1 Escherichia coli ANTIBIOTIC M.I.C RX STATUS Ampicillin 8 S F Ampicillin/Sulbactam 4 S F Piperacillin/Tazobactam <=4 S F Cefazolin <=4 S F Ceftazidime <=1 S F Ceftriaxone <=1 S F Ertapenem <=0.5 S F Imipenem <=0.25 S F Amikacin <=2 S F Gentamicin <=1 S F Tobramycin <=1 S F Ciprofloxacin <=0.25 S F Levofloxacin <=0.12 S F Nitrofurantoin <=16 S F Trimethoprim/Sulfamethoxa zole <=20 S F Normal [facility] Comment on above: Performed By: #### C RP, CMP #### [facility] [address] [place] [address] Dr. Sung Moore PROF 14(COMP METB)on 022 Albumin [Mass/Vol] 2.4 g/dL Critically low 3.4-5.0 [facility] Comment on above: Performed By: #### L ACT #### [facility] [address] [place] [address] Dr. Sung Moore Albumin/Globulin [Mass ratio] 0.5 {ratio} Normal [facility] Comment on above: Performed By: #### L ACT #### [facility] [address] [place] [address] Dr. Sung Moore ALP [Catalytic activity/Vol] 73 U/L Normal 46-116 [facility] Comment on above: Performed By: #### L ACT #### [facility] [address] [place] [address] Dr. Sung Moore ALT [Catalytic activity/Vol] 22 U/L Normal 14-59 [facility] Comment on above: Performed By: #### L ACT #### [facility] [address] [place] [address] Dr. Sung Moore Anion gap [Moles/Vol] 12.9 mmol/L Normal [facility] Comment on above: Performed By: #### L ACT #### [facility] [address] [place] [address] Dr. Sung Moore AST [Catalytic activity/Vol] 21 U/L Normal 15-37 [facility] Comment on above: Performed By: #### L ACT #### [facility] [address] [address] [address] Sung Moore Bilirubin [Mass/Vol] 0.1 mg/dL Critically low 0.2-1.0 [facility] Comment on above: Performed By: #### L ACT #### [facility] [address] [address] [address] Sung Moore Calcium [Mass/Vol] 8.6 mg/dL Normal 8.5-10.1 [facility] Comment on above: Performed By: #### L ACT #### [facility] [address] [address] [address] Sung Moore Chloride [Moles/Vol] 108 mmol/L Critically high 98-107 [facility] Comment on above: Performed By: #### L ACT #### [facility] [address] [address] [address] Sung Moore CO2 [Moles/Vol] 22.0 mmol/L Normal 21.0-32.0 [facility] Comment on above: Performed By: #### L ACT #### [facility] [address] [address] [address] Sung Moore Creatinine [Mass/Vol] 0.79 mg/dL Normal 0.55-1.02 [facility] Comment on above: Performed By: #### L ACT #### [facility] [address] [address] [address] Sung Moore EGFR-AF SOUTH AFR[place] >60 Normal >=60 [facility] Comment on above: Performed By: #### L ACT #### [facility] [address] [address] [address] Sung Moore EGFR-NON AF [place]FR[place] >60 Normal >=60 [facility] Comment on above: Performed By: #### L ACT #### [facility] [address] [address] [address] Sung Moore Globulin (S) [Mass/Vol] 4.5 g/dL Normal [facility] Comment on above: Performed By: #### L ACT #### [facility] [address] [address] [address] Sung Moore Glucose [Mass/Vol] 149 mg/dL Critically high 74-[address] [facility] Comment on above: Performed By: #### L ACT #### [facility] [address] [place] [address] Dr. Sung Moore Potassium [Moles/Vol] 2.8 mmol/L Critically low 3.5-5.1 [facility] Comment on above: Performed By: #### L ACT #### [facility] [address] [place] [address] Dr. Sung Moore Protein [Mass/Vol] 6.9 g/dL Normal 6.4-8.2 [facility] Comment on above: Performed By: #### L ACT #### [facility] [address] [place] [address] Dr. Sung Moore Sodium [Moles/Vol] 140 mmol/L Normal 136-145 [facility] Comment on above: Performed By: #### L ACT #### [facility] [address] [place] [address] Dr. Sung Moore Urea nitrogen [Mass/Vol] 17.0 mg/dL Normal 7.0-18.0 [facility] Comment on above: Performed By: #### L ACT #### [facility] [address] [place] [address] Dr. Sung Moore Urea nitrogen/Creatinine [Mass ratio] 21.5 mg/mg Normal [facility] Comment on above: Performed By: #### L ACT #### [facility] [address] [place] [address] Dr. Sung Moore BNPon 11-11-2021 Natriuretic peptide B (Bld) [Mass/Vol] 882.0 pg/mL Normal <=1,800.0 [facility] Comment on above: Performed By: #### C RP, CMP #### [facility] [address] [place] [address] Dr. Sung Moore CBC AUTO DIFFon 11-11-2021 BASO # 0.0 103/ul Normal 0.0-0.1 [facility] Comment on above: Performed By: #### C RP, CMP #### [facility] [address] [place] [address] Dr. Sung Moore Basophils/100 WBC (Bld) 0.0 % Critically low 0.2-2.0 [facility] Comment on above: Performed By: #### C RP, CMP #### [facility] [address] [place] [address] Dr. Sung Moore EO # 0.0 103/ul Normal 0.0-0.7 [facility] Comment on above: Performed By: #### C RP, CMP #### [facility] [address] [place] [address] Dr. Sung Moore Eosinophils/100 WBC (Bld) 0.0 % Critically low 0.9-7.0 [facility] Comment on above: Performed By: #### C RP, CMP #### [facility] [address] [place] [address] Dr. Sung Moore Erythrocyte distribution width (RBC) [Ratio] 15.1 % Critically high 11.0-15.0 [facility] Comment on above: Performed By: #### C RP, CMP #### [facility] [address] [place] [address] Dr. Sung Moore Hematocrit (Bld) [Volume fraction] 28.5 % Critically low 36.0-48.0 [facility] Comment on above: Performed By: #### C RP, CMP #### [facility] [address] [place] [address] Dr. Sung Moore Hemoglobin (Bld) [Mass/Vol] 8.9 g/dL Critically low 12.0-16.0 [facility] Comment on above: Performed By: #### C RP, CMP #### [facility] [address] [place] [address] Dr. Sung Moore IG # 0.02 10e3/ul Normal 0.00-0.03 [facility] Comment on above: Performed By: #### C RP, CMP #### [facility] [address] [place] [address] Dr. Sung Moore IG % 0.5 % Normal 0.0-0.5 [facility] Comment on above: Performed By: #### C RP, CMP #### [facility] [address] [place] [address] Dr. Sung Moore LYMPH # 0.9 103/ul Critically low 1.2-3.8 [facility] Comment on above: Performed By: #### C RP, CMP #### [facility] [address] [place] [address] Dr. Sung Moore Lymphocytes/100 WBC (Bld) 23.8 % Normal 20.5-60.0 [facility] Comment on above: Performed By: #### C RP, CMP #### [facility] [address] [place] [address] Dr. Sung Moore MANUAL DIFF REQ NO Normal [facility] Comment on above: Performed By: #### C RP, CMP #### [facility] [address] [place] [address] Dr. Sung Moore MCH (RBC) [Entitic mass] 27.4 pg Normal 26.7-34.0 [facility] Comment on above: Performed By: #### C RP, CMP #### [facility] [address] [place] [address] Dr. Sung Moore MCHC (RBC) [Mass/Vol] 31.2 g/dL Normal 29.9-35.2 [facility] Comment on above: Performed By: #### C RP, CMP #### [facility] [address] [place] [address] Dr. Sung Moore MCV (RBC) [Entitic vol] 87.7 fL Normal 81.0-99.0 [facility] Comment on above: Performed By: #### C RP, CMP #### [facility] [address] [place] [address] Dr. Sung Moore MONO # 0.1 103/ul Critically low 0.3-0.8 [facility] Comment on above: Performed By: #### C RP, CMP #### [facility] [address] [place] [address] Dr. Sung Moore Monocytes/100 WBC (Bld) 2.1 % Normal 1.7-12.0 [facility] Comment on above: Performed By: #### C RP, CMP #### [facility] [address] [place] [address] Dr. Sung Moore NEUT # 2.8 103/ul Normal 1.4-6.5 [facility] Comment on above: Performed By: #### C RP, CMP #### [facility] [address] [place] [address] Dr. Sung Moore Neutrophils/100 WBC (Bld) 73.6 % Normal 43.0-75.0 [facility] Comment on above: Performed By: #### C RP, CMP #### [facility] [address] [place] [address] Dr. Sung Moore Platelet mean volume (Bld) [Entitic vol] 9.4 fL Critically low 9.5-13.5 [facility] Comment on above: Performed By: #### C RP, CMP #### [facility] [address] [place] [address] Dr. Sung Moore PLT 216 103/ul Normal 150-450 [facility] Comment on above: Performed By: #### C RP, CMP #### [facility] [address] [place] [address] Dr. Sung Moore RBC 3.25 106/ul Critically low 4.20-5.40 [facility] Comment on above: Performed By: #### C RP, CMP #### [facility] [address] [place] [address] Dr. Sung Moore WBC 3.7 103/ul Critically low 4.0-11.0 [facility] Comment on above: Performed By: #### C RP, CMP #### [facility] [address] [place] [address] Dr. Sung Moore PROF 14(COMP METB)on 022 Albumin [Mass/Vol] 2.4 g/dL Critically low 3.4-5.0 [facility] Comment on above: Performed By: #### C MP, BNP #### [facility] [address] [place] [address] Dr. Sung Moore Albumin/Globulin [Mass ratio] 0.5 {ratio} Normal [facility] Comment on above: Performed By: #### C MP, BNP #### [facility] [address] [place] [address] Dr. Sung Moore ALP [Catalytic activity/Vol] 87 U/L Normal 46-116 [facility] Comment on above: Performed By: #### C MP, BNP #### [facility] [address] [place] [address] Dr. Sung Moore ALT [Catalytic activity/Vol] 19 U/L Normal 14-59 [facility] Comment on above: Performed By: #### C MP, BNP #### [facility] [address] [place] [address] Dr. Sung Moore Anion gap [Moles/Vol] 9.2 mmol/L Normal [facility] Comment on above: Performed By: #### C MP, BNP #### [facility] [address] [place] [address] Dr. Sung Moore AST [Catalytic activity/Vol] 20 U/L Normal 15-37 [facility] Comment on above: Performed By: #### C MP, BNP #### [facility] [address] [place] [address] Dr. Sung Moore Bilirubin [Mass/Vol] 0.2 mg/dL Normal 0.2-1.0 [facility] Comment on above: Performed By: #### C MP, BNP #### [facility] [address] [place] [address] Dr. Sung Moore Calcium [Mass/Vol] 8.5 mg/dL Normal 8.5-10.1 [facility] Comment on above: Performed By: #### C MP, BNP #### [facility] [address] [place] [address] Dr. Sung Moore Chloride [Moles/Vol] 106 mmol/L Normal 98-107 [facility] Comment on above: Performed By: #### C MP, BNP #### [facility] [address] [place] [address] Dr. Sung Moore CO2 [Moles/Vol] 23.1 mmol/L Normal 21.0-32.0 [facility] Comment on above: Performed By: #### C MP, BNP #### [facility] [address] [place] [address] Dr. Sung Moore Creatinine [Mass/Vol] 0.88 mg/dL Normal 0.55-1.02 [facility] Comment on above: Performed By: #### C MP, BNP #### [facility] [address] [place] [address] Dr. Sung Moore EGFR-AF S[place] >60 Normal >=60 [facility] Comment on above: Performed By: #### C MP, BNP #### [facility] [address] [place] [address] Dr. Sung Moore EGFR-NON AF [place] >60 Normal >=60 [facility] Comment on above: Performed By: #### C MP, BNP #### [facility] [address] [place] [address] Dr. Sung Moore Globulin (S) [Mass/Vol] 4.8 g/dL Normal [facility] Comment on above: Performed By: #### C MP, BNP #### [facility] [address] [place] [address] Dr. Sung Moore Glucose [Mass/Vol] 153 mg/dL Critically high 74-[address] [facility] Comment on above: Performed By: #### C MP, BNP #### [facility] [address] [place] [address] Dr. Sung Moore Potassium [Moles/Vol] 3.3 mmol/L Critically low 3.5-5.1 [facility] Comment on above: Performed By: #### C MP, BNP #### [facility] [address] [place] [address] Dr. Sung Moore Protein [Mass/Vol] 7.2 g/dL Normal 6.4-8.2 [facility] Comment on above: Performed By: #### C MP, BNP #### [facility] [address] [place] [address] Dr. Sung Moore Sodium [Moles/Vol] 135 mmol/L Critically low 136-145 [facility] Comment on above: Performed By: #### C MP, BNP #### [facility] [address] [place] [address] Dr. Sung Moore Urea nitrogen [Mass/Vol] 16.0 mg/dL Normal 7.0-18.0 [facility] Comment on above: Performed By: #### C MP, BNP #### [facility] [address] [place] [address] Dr. Sung Moore Urea nitrogen/Creatinine [Mass ratio] 18.2 mg/mg Normal [facility] Comment on above: Performed By: #### C MP, BNP #### [facility] [address] [place] [address] Dr. Sung Moore CBC AUTO DIFFon 11-10-2021 BASO # 0.0 103/ul Normal 0.0-0.1 [facility] Comment on above: Performed By: #### C RP, CMP #### [facility] [address] [place] [address] Dr. Sung Moore Basophils/100 WBC (Bld) 0.2 % Normal 0.2-2.0 [facility] Comment on above: Performed By: #### C RP, CMP #### [facility] [address] [place] [address] Dr. Sung Moore EO # 0.0 103/ul Normal 0.0-0.7 [facility] Comment on above: Performed By: #### C RP, CMP #### [facility] [address] [place] [address] Dr. Sung Moore Eosinophils/100 WBC (Bld) 0.2 % Critically low 0.9-7.0 [facility] Comment on above: Performed By: #### C RP, CMP #### [facility] [address] [place] [address] Dr. Sung Moore Erythrocyte distribution width (RBC) [Ratio] 15.2 % Critically high 11.0-15.0 [facility] Comment on above: Performed By: #### C RP, CMP #### [facility] [address] [place] [address] Dr. Sung Moore Hematocrit (Bld) [Volume fraction] 30.0 % Critically low 36.0-48.0 [facility] Comment on above: Performed By: #### C RP, CMP #### [facility] [address] [place] [address] Dr. Sung Moore Hemoglobin (Bld) [Mass/Vol] 9.7 g/dL Critically low 12.0-16.0 [facility] Comment on above: Performed By: #### C RP, CMP #### [facility] [address] [place] [address] Dr. Sung Moore IG # 0.03 10e3/ul Normal 0.00-0.03 [facility] Comment on above: Performed By: #### C RP, CMP #### [facility] [address] [place] [address] Dr. Sung Moore IG % 0.5 % Normal 0.0-0.5 [facility] Comment on above: Performed By: #### C RP, CMP #### [facility] [address] [place] [address] Dr. Sung Moore LYMPH # 1.3 103/ul Normal 1.2-3.8 [facility] [facility] Comment on above: Performed By: #### C RP, CMP #### [facility] [address] [place] [address] Dr. Sung Moore Lymphocytes/100 WBC (Bld) 20.3 % Critically low 20.5-60.0 [facility] Comment on above: Performed By: #### C RP, CMP #### [facility] [address] [place] [address] Dr. Sung Moore MANUAL DIFF REQ NO Normal [facility] Comment on above: Performed By: #### C RP, CMP #### [facility] [address] [place] [address] Dr. Sung Moore MCH (RBC) [Entitic mass] 27.8 pg Normal 26.7-34.0 [facility] Comment on above: Performed By: #### C RP, CMP #### [facility] [address] [place] [address] Dr. Sung Moore MCHC (RBC) [Mass/Vol] 32.3 g/dL Normal 29.9-35.2 [facility] Comment on above: Performed By: #### C RP, CMP #### [facility] [address] [place] [address] Dr. Sung Moore MCV (RBC) [Entitic vol] 86.0 fL Normal 81.0-99.0 [facility] Comment on above: Performed By: #### C RP, CMP #### [facility] [address] [place] [address] Dr. Sung Moore MONO # 0.6 103/ul Normal 0.3-0.8 [facility] Comment on above: Performed By: #### C RP, CMP #### [facility] [address] [place] [address] Dr. Sung Moore Monocytes/100 WBC (Bld) 8.8 % Normal 1.7-12.0 [facility] Comment on above: Performed By: #### C RP, CMP #### [facility] [address] [place] [address] Dr. Sung Moore NEUT # 4.6 103/ul Normal 1.4-6.5 [facility] Comment on above: Performed By: #### C RP, CMP #### [facility] [address] [place] [address] Dr. Sung Moore Neutrophils/100 WBC (Bld) 70.0 % Normal 43.0-75.0 [facility] Comment on above: Performed By: #### C RP, CMP #### [facility] [address] [place] [address] Dr. Sung Moore Platelet mean volume (Bld) [Entitic vol] 9.1 fL Critically low 9.5-13.5 [facility] Comment on above: Performed By: #### C RP, CMP #### [facility] [address] [place] [address] Dr. Sung Moore PLT 230 103/ul Normal 150-450 [facility] Comment on above: Performed By: #### C RP, CMP #### [facility] [address] [place], [place] [address] Dr. Sung Moore RBC 3.49 106/ul Critically low 4.20-5.40 [facility] Comment on above: Performed By: #### C RP, CMP #### [facility] [address] [place], [place] [address] Dr. Sung Moore WBC 6.6 103/ul Normal 4.0-11.0 [facility] Comment on above: Performed By: #### C RP, CMP #### [facility] [address] [place], [place] [address] ABD/PELVIS WO CONon 11-10 CT ABD/PELVIS WO CON EXAMINATION: CT ABD/PELVIS WO CON HISTORY: Low blood pressure , weakness; bladder biopsy yesterday COMPARISON: No relevant comparison available. TECHNIQUE: Axial, Coronal, and Sagittal images were created IV contrast. Dose reduction techniques were achieved by using automated exposure control and/or adjustment of mA and/or kV according to patient size and/or use of iterative reconstruction technique. FINDINGS: LUNG BASES: No visible pulmonary or pleural disease. LIVER: No enlargement, atrophy, abnormal density, or significant focal lesion. BILIARY: No dilatation or calcification. PANCREAS: No lesion, fluid collection, ductal dilatation, or atrophy. SPLEEN: No enlargement or focal lesion. ADRENALS: No mass or enlargement. KIDNEYS: Large slightly heterogeneous mass versus complex cyst within left kidney, 7.0 x 4.4 x 3.7 cm. BOWEL/MESENTERY: No visible mass, obstruction, or bowel wall thickening. AORTA/VASCULAR: No aneurysm or dissection. RETROPERITONEUM: No mass or adenopathy. LYMPH NODES: No adenopathy. URINARY BLADDER: No visible focal wall thickening, lesion, or calculus. PELVIC ORGANS: Suspect prior hysterectomy. Evaluation of pelvis is limited by metallic streak artifact from right hip replacement. Numerous metallic clips/anchors within pelvis. ABDOMINAL WALL: No mass or hernia. BONES: Multilevel degenerative disc disease and facet arthropathy. T9 mild compression fracture. L5 grade 1 anterior listhesis. OTHER: Negative. IMPRESSION: 1. No acute findings to account for patient's symptoms. No free fluid or findings to suggest hemorrhage. 2. Large left renal mass versus complex cyst. Findings are suspicious for mass/malignancy. CT imaging of the abdomen and pelvis without and with IV contrast is recommended to evaluate enhancement characteristics. 3. Age-indeterminate T9 mild compression fracture, L5 grade 1-2 anterior listhesis, and multilevel moderate marked degenerative changes. Electronically authenticated by: DION SNOWDEN Date: 2021-11-10 15:46 Normal [facility] CT STROKE HEAD WOon 11-11-[address] STROKE HEAD WO NONCONTRAST HEAD CT COMPARISON: None. CLINICAL HISTORY: Dizziness. TECHNIQUE: Routine noncontrast images of the brain obtained. CT examination of the head without IV contrast. Dose reduction techniques were achieved by using: automated exposure control and/or adjustment of mA and /or kV according to patient size and/or use of iterative reconstruction technique. FINDINGS: Paranasal sinuses and mastoid air cells are clear. Intraorbital contents are unremarkable. No acute bony abnormality. Intracranially, there is no evidence of hemorrhage, mass effect, or midline shift. Ventricles and cisternal spaces are age appropriate. There is encephalomalacia in the left occipital lobe likely related to remote left [facility] ischemia. Hypodensity in the posterior limb of the left internal capsule measuring 8 x 6 mm compatible with prior lacunar infarct. Dense carotid calcifications. IMPRESSION: No acute intracranial hemorrhage. Chronic ischemic changes as documented. Electronically authenticated by: KAYLEY PHELAN Date: 2021-11-10 15:47 Normal [facility] CULTURE BLOODon 11-10-2021 Microscopic examination of blood, culture Culture Observations: NO GROWTH AT 5 DAYS. Isolate 1 [id number] Normal [facility] Comment on above: Performed By: #### C RP, CMP #### [facility] [address] [place] [address] [address] Sung Moore Microscopic examination of blood, culture Culture Observations: NO GROWTH AT 5 DAYS. Isolate 1 [id number] Normal [facility] Comment on above: Performed By: #### C RP, CMP #### [facility] [address] [place] [address] [address] Sung Moore Covid-19 PCR ([facility])on 10-17 SARS-CoV-2 (COVID-19) RNA ROMY+probe Ql (Unsp spec) Not detected Normal NOT DETECTED [facility] Comment on above: Result Comment: When diagnostic testing is negative, the possibility of a false negative should be considered in the context of a patient's recent exposures and the presence of clinical signs and symptoms consistent with SARS-CoV-2. This test is not yet approved or cleared by the [place] FDA. When there are no FDA-approved or cleared tests available, and other criteria are met, FDA can make tests available under an emergency access mechanism called an Emergency Use Authorization (EUA). The EUA for this test is supported by the [employer] of Health and Human Service's declaration that circumstances exist to justify the emergency use of in vitro diagnostics for the detection and/or diagnosis of the virus that causes COVID-19. This EUA will remain in effect for the duration of the COVID-19 declaration justifying emergency of IVDs, unless it is terminated or revoked by the FDA (after which the test may no longer be used). Performed By: #### C MP, BNP #### [facility] [address] [place] [address] Dr. Sung Moore ER URINE PROFILEon 2 Bilirubin Ql (U) Negative Normal NEGATIVE [facility] Comment on above: Performed By: #### C RP, CMP #### [facility] [address] [place] [address] Dr. Sung Moore Clarity (U) CLEAR Normal CLEAR [facility] Comment on above: Performed By: #### C RP, CMP #### [facility] [address] [place] [address] Dr. Sung Moore Color (U) LT. YELLOW Normal YELLOW [facility] Comment on above: Performed By: #### C RP, CMP #### [facility] [address] [place] [address] Dr. Sung Moore ERUAHD A micrscopic examina tion will be performed if indicated. Normal [facility] Comment on above: Performed By: #### C RP, CMP #### [facility] [address] [place] [address] Dr. Sung Moore Glucose Ql (U) Negative Normal NEGATIVE [facility] Comment on above: Performed By: #### C RP, CMP #### [facility] [address] [place] [address] Dr. Sung Moore Hemoglobin Ql (U) Negative Normal NEGATIVE [facility] Comment on above: Performed By: #### C RP, CMP #### [facility] [address] [place] [address] Dr. Sung Moore Ketones Ql (U) Negative Normal NEGATIVE [facility] Comment on above: Performed By: #### C RP, CMP #### [facility] [address] [place] [address] Dr. Sung Moore LEUKOCYTES LARGE Abnormal NEGATIVE [facility] Comment on above: Performed By: #### C RP, CMP #### [facility] [address] [place] [address] Dr. Sung Moore Nitrite Ql (U) Positive Abnormal NEGATIVE [facility] Comment on above: Performed By: #### C RP, CMP #### [facility] [address] [place] [address] Dr. Sung Moore pH (U) 6.0 [pH] Normal 5-9 [facility] Comment on above: Performed By: #### C RP, CMP #### [facility] [address] [place] [address] Dr. Sung Moore SPEC GRAVITY 1.010 Normal 1.005-<=1. 025 [facility] Comment on above: Performed By: #### C RP, CMP #### [facility] [address] [place] [address] Dr. Sung Moore UA PROTEIN Negative Normal NEGATIVE/ TRACE [facility] Comment on above: Performed By: #### C RP, CMP #### [facility] [address] [place] [address] Dr. Sung Moore UR MICRO IND INDICATED Normal [facility] Comment on above: Performed By: #### C RP, CMP #### [facility] [address] [place] [address] Dr. Sung Moore Urobilinogen Qn (U) 0.2 {David'U}/dL Normal 0.2 - 1. 0 [facility] Comment on above: Performed By: #### C RP, CMP #### [facility] [address] [place] [address] Dr. Sung Moore LACTATE/LACTIC ACIDon 2021 Lactate [Moles/Vol] 1.1 mmol/L Normal 0.4-1.9 [facility] Comment on above: Performed By: #### C RP, CMP #### [facility] [address] [place] [address] Dr. Sung Moore Lactate [Moles/Vol] 1.9 mmol/L Normal 0.4-1.9 [facility] Comment on above: Performed By: #### C MP, BNP #### [facility] [address] [place] [address] Dr. Sung Moore PROF 14(COMP METB)on 022 Albumin [Mass/Vol] 2.9 g/dL Critically low 3.4-5.0 [facility] Comment on above: Performed By: #### L ACT #### [facility] [address] [place] [address] Dr. Sung Moore Albumin/Globulin [Mass ratio] 0.6 {ratio} Normal [facility] Comment on above: Performed By: #### L ACT #### [facility] [address] [place] [address] Dr. Sung Moore ALP [Catalytic activity/Vol] 101 U/L Normal 46-116 [facility] Comment on above: Performed By: #### L ACT #### [facility] [address] [place] [address] Dr. Sung Moore ALT [Catalytic activity/Vol] 21 U/L Normal 14-59 [facility] Comment on above: Performed By: #### L ACT #### [facility] [address] [place] [address] Dr. Sung Moore Anion gap [Moles/Vol] 14.6 mmol/L Normal [facility] Comment on above: Performed By: #### L ACT #### [facility] [address] [place] [address] Dr. Sung Moore AST [Catalytic activity/Vol] 19 U/L Normal 15-37 [facility] Comment on above: Performed By: #### L ACT #### [facility] [address] [place] [address] [address] Sung Moore Bilirubin [Mass/Vol] 0.7 mg/dL Normal 0.2-1.0 [facility] Comment on above: Performed By: #### L ACT #### [facility] [address] [place] [address] [address] Sung Moore Calcium [Mass/Vol] 8.4 mg/dL Critically low 8.5-10.1 [facility] Comment on above: Performed By: #### L ACT #### [facility] [address] [place] [address] [address] Sung Moore Chloride [Moles/Vol] 94 mmol/L Critically low 98-107 [facility] Comment on above: Performed By: #### L ACT #### [facility] [address] [place] [address] [address] Sung Moore CO2 [Moles/Vol] 22.9 mmol/L Normal 21.0-32.0 [facility] Comment on above: Performed By: #### L ACT #### [facility] [address] [place] [address] [address] Sung Moore Creatinine [Mass/Vol] 1.40 mg/dL Critically high 0.55-1.02 [facility] Comment on above: Performed By: #### L ACT #### [facility] [address] [place] [address] [address] Sung Moore EGFR-AF SOUTH AFRICAN 44 mL/min/1.73m2 Critically low >=60 [facility] Comment on above: Performed By: #### L ACT #### [facility] [address] [place] [address] [address] Sung Moore EGFR-NON AF SOUTH AFR[place] 37 mL/min/1.73m2 Critically low >=60 [facility] Comment on above: Performed By: #### L ACT #### [facility] [address] [place] [address] [address] Sung Moore Globulin (S) [Mass/Vol] 4.9 g/dL Normal [facility] Comment on above: Performed By: #### L ACT #### [facility] [address] [place] [address] [address] Sung Moore Glucose [Mass/Vol] 150 mg/dL Critically high 74-[address] [facility] Comment on above: Performed By: #### L ACT #### [facility] [address] [place] [address] [address] Sung Moore Potassium [Moles/Vol] 3.5 mmol/L Normal 3.5-5.1 [facility] Comment on above: Performed By: #### L ACT #### [facility] [address] [place] [address] [address] Sung Moore Protein [Mass/Vol] 7.8 g/dL Normal 6.4-8.2 [facility] Comment on above: Performed By: #### L ACT #### [facility] [address] [address] [address] Sung Moore Sodium [Moles/Vol] 128 mmol/L Critically low 136-145 Th [facility] Comment on above: Performed By: #### L ACT #### [facility] [address] [place] [address] [address] Sung Moore Urea nitrogen [Mass/Vol] 21.0 mg/dL Critically high 7.0-18.0 [facility] Comment on above: Performed By: #### L ACT #### [facility] [address] [place] [address] [address] Sung Moore Urea nitrogen/Creatinine [Mass ratio] 15.0 mg/mg [facility] Comment on above: Performed By: #### L ACT #### [facility] [address] [address] [address] Sung Moore PROTIMEon 11-10-2021 INR Coag (PPP) [Relative time] 1.16 {INR} [facility] Comment on above: Performed By: #### C RP, CMP #### [facility] [address] [address] [address] Sung Moore INR GUIDELINES SEE BELOW Normal [facility] Comment on above: Result Comment: JOHN RED INR: 2.0 - 3.0 CONDITIONS NOT LISTED BELOW 2.5 - 3.5 FOR PROSTHETIC HEART VALVE REPLACEMENT 2.5 - 3.5 RECURRENT THROMBOSIS Performed By: #### C RP, CMP #### [facility] [address] [place] [address] Dr. Sung Moore PT Coag (PPP) [Time] 12.4 s Critically high 9.0-11.6 [facility] Comment on above: Performed By: #### C RP, CMP #### [facility] [address] [place] [address] Dr. Sung Moore PTTon 11-10-2021 aPTT Coag (Bld) [Time] 32.9 s Normal 22.3-36.2 Th [facility] Comment on above: Performed By: #### C RP, CMP #### [facility] [address] [place] [address] Dr. Sung Moore TROPONIN, HIGH SENSITIVITYon 11-10-2021 HSTROP 10.1 pg/mL Normal 4.0-51.3 [facility] Comment on above: Result Comment: CUT- OFF POINTS HAVE BEEN ESTABLISHED BASED ON THE FOURTH UNIVERSAL DEFINITIONS OF MYOCARDIAL INFARCTION. THE UPPER REFERENCE LIMIT (URL) OF TROPONIN, DEFINED THE 99TH PERCENTILE OF cTnI DISTRIBUTION IN A REFERENCE POPULATION, HAS BEEN CONFIRMED THE DECISION THRESHOLD FOR IN DIAGNOSIS. Performed By: #### L ACT #### [facility] [address] [place] [address] Dr. Sung Moore TSHon 11-10-2021 TSH 1.207 uIU/mL Normal 0.358-3.74 0 [facility] Comment on above: Performed By: #### C MP, BNP #### [facility] [address] [place] [address] Dr. Sung Moore TSH RANGE SEE BELOW Normal [facility] Comment on above: Result Comment: <0.3 4 UIU/ml HYPERTHYROID 0.34-5.60 UIU/ml EUTHYROID >5.60 UIU/ml HYPOTHYROID Performed By: #### C MP, BNP #### [facility] [address] [place] [address] Dr. Sung oMore URINE MICROSCOPIC ONLYon BACTERIA MODERATE Abnormal NONE SEEN [facility] Comment on above: Performed By: #### C RP, CMP #### [facility] [address] [place] [address] Dr. Sung Moore Bacteria identified Cx Nom (U) INDICATED Normal [facility] Comment on above: Performed By: #### C RP, CMP #### [facility] [address] [place] [address] Dr. Sung Moore CAST NONE SEEN Normal NONE SEEN [facility] Comment on above: Performed By: #### C RP, CMP #### [facility] [address] [place] [address] Dr. Sung Moore Crystals LM Nom (Urine sed) NONE SEEN Normal NONE SEEN [facility] Comment on above: Performed By: #### C RP, CMP #### [facility] [address] [place] [address] Dr. Sung Moore Epithelial cells LM Ql (Urine sed) RARE Normal NONE SEEN /RARE [facility] Comment on above: Performed By: #### C RP, CMP #### [facility] [address] [place] [address] Dr. Sung Moore MUCOUS NONE SEEN Normal NONE SEEN [facility] Comment on above: Performed By: #### C RP, CMP #### [facility] [address] [place] [address] Dr. Sung Moore RBC NONE SEEN Abnormal 0-2 [facility] Comment on above: Performed By: #### C RP, CMP #### [facility] [address] [place] [address] Dr. Sung Moore WBC 50-75 Abnormal NONE SEEN [facility] Comment on above: Performed By: #### C RP, CMP #### [facility] [address] [place] [address] Dr. Sung Moore XR CHEST 1 Von 11-10-2021 XR CHEST 1 V EXAMINATION: XR CHES T 1 V HISTORY: Dizziness COMPARISON: XR chest 04/20/2021 FINDINGS: LUNGS: Mild haziness and stranding within the perihilar regions, right greater than left. Underexpanded lungs. VASCULATURE: No increased pulmonary vasculature. PLEURA: No pneumothorax, effusion, or pleural thickening. CARDIAC: Cardiomegaly. MEDIASTINUM: No visible mass or adenopathy. BONES: No fracture or visible bone lesion. OTHER: Negative. IMPRESSION: 1. Low lung volume examination with mild bilateral infiltrates versus atelectasis; new since prior study. Electronically authenticated by: DION SNOWDEN Date: 2021-11-10 15:26 Normal [facility] Glucose Glucometer (dC) [M ass/Vol]Ordered By: Bonnie Hendricks on 10-19-2021 Glucose [Mass/Vol] 127 mg/dL [facility] Comment on above: Random Glucose Refer ence Range is dependent on time and content of last meal. Glucose of more than 200 mg/dL in a nonstressed, ambulatory subject supports the diagnosis of Diabetes Mellitus. Activated partial thrombopla stin time (aPTT) in platelet poor plasma by coagulation aOrdered By: Bonnie Hendricks on 10-12-2021 aPTT Coag (PPP) [Time] 31.5 s 25.1-36.5 [facility] Basophils Auto (Bld) [#/Vol] Ordered By: Bonnie Hendricks on 10-12-2021 Basophils (Bld) [#/Vol] 0.0 10*3/uL 0.0-0.2 [facility] Basophils/100 WBC Auto (Bld) Ordered By: Bonnie Hendricks on 10-12-2021 Basophils/100 WBC (Bld) 0.3 % . [facility] Blood hemoglobin measurement (mass/volume)Ordered By: Bonnie Hendricks on 10-12-2021 Hemoglobin (Bld) [Mass/Vol] 10.4 g/dL 11.8-15.4 [facility] Blood leukocytes automated c ount (number/volume)Ordered By: Bonnie Hendricks on 10-12-2021 WBC (Bld) [#/Vol] 6.3 10*3/uL 4.5-11.0 [facility] Body fluid albumin measureme nt (mass/volume)Ordered By: Bonnie Hendricks on 10-12-2021 Albumin (Body fld) [Mass/Vol] 3.4 g/dL 3.2-5.5 [facility] Creatinine and Glomerular fi ltration rate.predicted panel (S/P/Bld)Ordered By: Bonnie Hendricks on 10-12-2021 Creatinine [Mass/Vol] 0.81 mg/dL 0.44-1.03 [facility] Eosinophils Auto (Bld) [#/Vo l]Ordered By: Bonnie Hendricks on 10-12-2021 Eosinophils (Bld) [#/Vol] 0.2 10*3/uL 0.0-0.45 [facility] Eosinophils/100 WBC Auto (Bl d)Ordered By: Bonnie Hendricks on 10-12-2021 Eosinophils/100 WBC (Bld) 3.5 % . [facility] Erythrocyte distribution wid th Auto (RBC) [Ratio]Ordered By: Bonnie Hendricks on 10-12-2021 Erythrocyte distribution width (RBC) [Ratio] 16.5 % 11.9-15.3 [facility] Estimated glomerular filtrat ion rate (GFR) non- AmericanOrdered By: Bonnie Hendricks on 10-12-2021 GFR/1.73 sq M.predicted among non-blacks MDRD (S/P/Bld) [Vol rate/Area] > 60 mL/Min [facility] Globulin Calc (S) [Mass/Vol] Ordered By: Bonnie Hendricks on 10-12-2021 Globulin (S) [Mass/Vol] 4.6 g/dL [facility] Hematocrit Auto (Bld) [Volum e fraction]Ordered By: Bonnie Hendricks on 10-12-2021 Hematocrit (Bld) [Volume fraction] 31.6 % 34.0-46.4 [facility] - CoagulationOrde red By: Bonnie Hendricks on 10-12-2021 PT Coag (PPP) [Time] 14.0 s High 9.0-12.9 [facility] - Hematology and Cell countsOrdered By: Bonnie Hendricks on 10-12-2021 Nucleated RBC/100 WBC (Bld) [Ratio] 0.0 % 0-0.5 [facility] Lactate dehydrogenase measur ement (enzymatic activity/volume)Ordered By: Bonnie Hendricks on 10-12-2021 LDH (Unsp spec) [Catalytic activity/Vol] 133 U/L 45-190 [facility] Lymphocytes Auto (Bld) [#/Vo l]Ordered By: Bonnie Hendricks on 10-12-2021 Lymphocytes (Bld) [#/Vol] 1.4 10*3/uL 1.00-4.8 [facility] Lymphocytes/100 WBC Auto (Bl d)Ordered By: Bonnie Hendricks on 10-12-2021 Lymphocytes/100 WBC (Bld) 22.9 % . [facility] MCH Auto (RBC) [Entitic mass ]Ordered By: Bonnie Hendricks on 10-12-2021 MCH (RBC) [Entitic mass] 28.2 pg 24.7-34.3 [facility] MCHC Auto (RBC) [Mass/Vol]Or dered By: Bonnie Hendricks on 10-12-2021 MCHC (RBC) [Mass/Vol] 32.8 g/dL 32.0-35.0 [facility] MCV Auto (RBC) [Entitic vol] Ordered By: Bonnie Hendricks on 10-12-2021 MCV (RBC) [Entitic vol] 85.8 fL 80-100 [facility] Monocytes Auto (Bld) [#/Vol] Ordered By: Bonnie Hendricks on 10-12-2021 Monocytes (Bld) [#/Vol] 0.4 10*3/uL 0.0-0.8 [facility] Monocytes/100 WBC Auto (Bld) Ordered By: Bonnie Hendricks on 10-12-2021 Monocytes/100 WBC (Bld) 6.3 % . [facility] Neutrophils Auto (Bld) [#/Vo l]Ordered By: Bonnie Hendricks on 10-12-2021 Neutrophils (Bld) [#/Vol] 4.2 10*3/uL 1.8-7.7 [facility] Neutrophils/100 WBC Auto (Bl d)Ordered By: Bonnie Hendricks on 10-12-2021 Neutrophils/100 WBC (Bld) 67.0 % . [facility] No Panel InformationOrdered By: Bonnie Hendricks on 10-12-2021 Estimated GFR () > 60 mL/Min [facility] Comment on above: GFR estimated refere nce range: According to KDOQI guidelines, <60 ml/min/1.73m2 is sufficient to diagnose a patient with chronic kidney disease. Pharmacy Creatinine Clearance (Chem N/A [facility] Platelet mean volume Auto (B ld) [Entitic vol]Ordered By: Bonnie Hendricks on 10-12-2021 Platelet mean volume (Bld) [Entitic vol] 7.1 fL 6.3-10.7 [facility] Platelet poor plasma interna tional normalized ratio (INR) by coagulation assay (relatOrdered By: Bonnie Hendricks on 10-12-2021 INR Coag (PPP) [Relative time] 1.2 {INR} [facility] Comment on above: INR Therapeutic Rang e A) Pre- and Peroperative OAT started two weeks before surgery. NOT HIP SURGERY: 1.5 - 2.5 HIP SURGERY: 2 - 3 B) Primary and secondary prevention of venous THROMBOSIS: 2 - 3 C) Active venous thrombosis, pulmonary embolism and prevention of recurrent venous thrombosis: 2 - 3 D) Prevention of arterial thromboembolism including patients with mechanical heart valves: 3 - 4.5 INR Therapeutic Rang e A) Pre- and Peroperative OAT started two weeks before surgery. NOT HIP SURGERY: 1.5 - 2.5 HIP SURGERY: 2 - 3B) Primary and secondary prevention of venous THROMBOSIS: 2 - 3C) Active venous thrombosis, pulmonary embolismand prevention of recurrent venous thrombosis: 2 - 3D) Prevention of arterial thromboembolismincluding patients with mechanical heart valves: 3 - 4.5 Platelets Auto (Bld) [#/Vol] Ordered By: Bonnie Hendricks on 10-12-2021 Platelets (Bld) [#/Vol] 370 10*3/uL 150-450 [facility] Protein [Mass/volume] in Ser um or PlasmaOrdered By: Bonnie Hendricks on 10-12-2021 Protein [Mass/Vol] 8.0 g/dL 6.1-7.9 [facility] RBC Auto (Bld) [#/Vol]Ordere d By: Bonnie Hendricks on 10-12-2021 RBC (Bld) [#/Vol] 3.68 10*6/uL 3.60-5.00 [facility] Serum or plasma alanine de guzman otransferase measurement without P-5'-P (enzymatic activiOrdered By: Bonnie Hendricks on 10-12-2021 ALT No additional P-5'-P [Catalytic activity/Vol] 13 U/L 10-60 [facility] Serum or plasma albumin/glob ulin mass ratioOrdered By: Bonnie Hendricks on 10-12-2021 Albumin/Globulin [Mass ratio] 0.7 {ratio} [facility] Serum or plasma alkaline david sphatase measurement (enzymatic activity/volume)Ordered By: Bonnie Hendricks on 10-12-2021 ALP [Catalytic activity/Vol] 94 U/L 32-92 [facility] Serum or plasma aspartate am inotransferase measurement (enzymatic activity/volume)Ordered By: Bonnie Hendricks on 10-12-2021 AST [Catalytic activity/Vol] 18 U/L 10-42 [facility] Serum or plasma calcium elias urement (mass/volume)Ordered By: Bonnie Hendrikcs on 10-12-2021 Calcium [Mass/Vol] 9.6 mg/dL 8.2-10.2 [facility] Serum or plasma cancer antig en 125 (CA-125) measurement (units/volume)Ordered By: Bonnie Hendricks on 10-12-2021 Cancer Ag 125 Qn 23.7 [arb'U]/mL 0.0-38.1 [facility] Comment on above: Sha [employer] El ectrochemiluminescence Immunoassay (ECLIA) Values obtained with different assay methods or kits cannot be used interchangeably. Results cannot be interpreted as absolute evidence of the presence or absence of malignant disease. Performed at: [address] [id number] [employer] Installer: Adrian Coello PhD, Phone: [phone] Serum or plasma chloride liset surement (moles/volume)Ordered By: Bonnie Hendricks on 10-12-2021 Chloride [Moles/Vol] 101 mmol/L 95-114 [facility] Serum or plasma glucose elias urement (mass/volume)Ordered By: Bonnie Hendricks on 10-12-2021 Glucose [Mass/Vol] 126 mg/dL 70-100 [facility] Comment on above: ADA recommended refe rence range Random Glucose Reference Range is dependent on time and content of last meal. Glucose of more than 200 mg/dL in a nonstressed, ambulatory subject supports the diagnosis of Diabetes Mellitus. Serum or plasma potassium me asurement (moles/volume)Ordered By: Bonnie Hendricks on 10-12-2021 Potassium [Moles/Vol] 4.3 mmol/L 3.5-5.1 [facility] Serum or plasma sodium measu rement (moles/volume)Ordered By: Bonnie Eladio on 10-12-2021 Sodium [Moles/Vol] 136 mmol/L 136-146 [facility] Serum or plasma total biliru bin measurement (mass/volume)Ordered By: Bonnie Eladio on 10-12-2021 Bilirubin [Mass/Vol] 0.9 mg/dL 0.3-1.2 [facility] Serum or plasma total carbon dioxide measurement (moles/volume)Ordered By: Bonnie Eladio on 10-12-2021 CO2 [Moles/Vol] 24.7 mmol/L 22.0-30.0 [facility] Serum or plasma urea nitroge n measurement (mass/volume)Ordered By: Bonnie Hendricks on 10-12-2021 Urea nitrogen [Mass/Vol] 10 mg/dL 03-10 [facility] C Urineon 08-26-2021 Bacteria identified Cx Nom (U) Microbiology PROCEDURE: Urine Culture [R1] SOURCE: U Random BODY SITE: COLLECTED DATE/TIME: 08/24/2021 11:14 EST RECEIVED DATE/TIME: 08/24/2021 13:38 EST START DATE/TIME: 08/24/2021 13:38 EST FREE TEXT SOURCE: ESTELLA JOHNSON, Jose SORIA MD, Jose Eugene FINAL REPORTS Final Report [] Verified Date/Time: 08/26/2021 11:27 EST >100,000 cfu/ml Escherichia coli SUSCEPTIBILITY RESULTS LEGEND: S=Susceptible, N/R=Not Reported, Blank=Data not available, or drug not advisable or tested, I=Intermediate, ESBL=Extended spectrum beta-lactamase, R=Resistant, TFG=Thymidine-dependent strain, SHANIQUA=Beta-lactamase positive, MAHENDRA=mcg/m;(mg/L), S*=Predicted susceptible interp, R*=Predicted resistant interp EC Antibiotic MAHENDRA Dilutn MAHENDRA Interp Amikacin <=16 S Ampicillin <=8 S Ampicillin/ <=8/4 S Sulbactam Aztreonam <=4 S Cefazolin <=2 S Cefepime <=2 S Cefoxitin <=8 S Ceftazidime <=1 S Ceftazidime/ <=8 S Avibactam Ceftriaxone <=1 S Ciprofloxacin <=1 S Ertapenem <=0.5 S Gentamicin <=4 S Levofloxacin <=2 S Meropenem <=1 S Nitrofurantoin <=32 S Piperacillin/ <=16 S Tazobactam Tetracycline <=4 S Tigecycline <=2 S Tobramycin <=4 S Trimethoprim/ <=2/38 S Sulfa Performing Locations R1: This test was performed at: [facility], [address] [place] [address], [phone] , , [facility] Comment on above: Performed By: #### [id number] ####[place] [address] Coding Summary.on 08-26-2021 Coding Summary. [id number] Gh0bW w+PGhlYWQ+QK4AQVKfT59nzQY zrU5FM8gJMI3TGVHMCNOLSZ9H II5umJS1PMrjU5FkzqOh RmzloJHiKW08KWf1TSM2lZrjE NsnxG4xjTVhH9n5YyNuED32uU 84ADbiRMJoIwI2JuFbeldekCG y T2tdBqOkaVKcZvo+PHRhYmxlI HdpZHRoPScxMDAlJyBzdHlsZT 6yJt8zKMJqFPJtqAybbEUmTxO j l8mnPTGdDYjzPM6ccUmjY2Sdf DV1DNOgr0z8Sr36zVT+PHRkIH B5dHsjRTpju974BrOdw2tuRAT 3 zPYqOYnvFCG3Q66bw9E6WMYyY NRdFJF7iAN5qN0ueMlslrckA5 VziFFbPzA2HRR4wHMdkU5yfNc n tbfzfN7kJmn+A25UII6HTKUHL G5NUfm4X5ZaXrfijZU+PC90YW JiLP84oMMgxNTtc9qilZj7ZgK w MVSbNYJ5wIrmXCzvt8MmIWHhU 64toUJhs4B0JFUomWfzmSEyGw GshCB7xT2vDEhggrits8pcvua n Rcmie2ycmo45hR39B50dUTocX YPbIYG8FRHwMAMbhRoucj3tqC 9wIi8+HLplf8owi7agbYp3GjR w FMMnrdJuqNwyWXV2m1GqAz41B 7SggBtff9UpVyq5vp90vZCel4 D5kFJ2AHlwIVAtzS2iTEojPaY 6 WVZbLjOwuY89rKIdTRozLb2bd FnxiOzyDU0mUYEdjdtoNGRiqM 3lBOHwvNXikNviYM3sBAGysau m c796SrZpZFU4EXMmfVShT0Mkn O0xAoAtLALhHMQrC9GaiHHzCX xvD066UThjNyD4OUGjmpLxA0G s ALXocTmnVpU0p7D4Hz9Hf4Iqz hwvQOH2DLmmVTMwIhLbYxQyDr G9W4YvEmc5MMCatPxaSP2xH1G h KNKcxaczsivakZS8XGBdWIPof H51dUXuHHhzXy2uy6L8z670WU ZmUPVwoQ73Ff8nlBgwWRQrjHV U yO0qkzwgb4dfbmcnHrRvNNAnE Nq6WNw0SVBgtJonKeVjJPR0Nz O8UIH2tXVvxA8zzExazpgsyW9 w Oyc+K04ocQ5xYCY9SWX6vyqdT LLkfiEuRH20YT74F4GbApcpjZ FibGU+VRWgnyUfmGruBD2hZjA j b8rmw5UqKTvxP9SqCVTeFEskA jz7ITGgSYO6cBJ7dN6jRAKyKG zlh2I4sZG4V5HbdyEdwn6zp3o s ZRCiIGuzF41bnEQsm9V6RMIdg DJ2SHHybJdiKtZarT73Gcf+PG EzrSrvc0TuGjmne0ivs7jlwPm 9 XyLwDPTlzwHvkVatLBX9s7JlZ b57F72eIXmrYSAdRDUuVXDiWY RwrDshzj1mbY6bBp4+PGNvbCB 3 cQU7iL6mDZGtGkI0PVsdO484M zCpcULlUvfvy9lwr8maeMd4Cy YmYDSnkqDrtDmwNZA2c9UjRl3 8 G36dUGwkKLXpEGYnLWIpOUXzg Fuzfg2zrJ9wVv8+ON0oa2owfo 96gZ05xRR+OXQwCSR5qJsxYHk w JZInuD7kAFuhNsA5FYCsYxYzu Q26lHRhESnqRv2gzOvofXqmTB 2yYSRnhoafj511NnMfm2fuISR w aSVrKHoxTYV2R37je4Q8HBXoX ABsQPA3bQK4kK1dcBasofzgfA LuhZdgmpVwpJsqPFdtFIquV90 6 IHRvcDsnPlBhdGllbnQgTmFtZ Ky9R1IwSuc7HNMhlHkaJI0dyY NoHTydYd2giZxyjBkbTW2fLOC p urtcp338JvHvc4quIJUqxKToN CgyBUC7T63sw3V6KYAcRNScGI U0nPB2xT0qkUsddgymlNAwpPr g ktArmTxfCBdbUFmtF487SQGgy JkbHaUlwaMdMFOwmNK7KR83ON 39xGVxp9F9cQW0R9LbMTIsezr t xluesTA5KNItPIApkR29Lk7os EqpIm5eZCVfHQK2IZSypXWlE4 VfxC4fLkOiVASzJHNxL0YjhJN t GTydI609SSojVxA7PMDvvxVsX 1LzZJQdkPabSyH7n6T3Sd2MG1 V0ZB82UI02uZHck0A7wYI7G6A h KQOeedzustzsnZF6DRPxRCMch T32Qc6jrHmnQv1fIJNrZGL0HE YooOUlV9MxyH6mThHiZDIbJOT w T8UprSFoMTomQ531WSjwQoK8T LJjxvObK9CsYSOhpPwhCbI4x7 J6Im0BEYt9LM47DE84gIWaq7U 5 dLB2A2JfNQXxnvaelmhgwPB8L SSvISBpaC49Dz3bqPqdEm1pRQ EhPBP8PAPouPIgE5MztA9vXmB j VGYrILXtI7LeoPEdQTbuX110U CgeOfX8EJEaneUyW7JuSTZmoL uuQkE6x8Y1Lk9MKQXfKR65KUD 5 nKY5ZJ38QS14J8ZnCcvduTNxm +PHRhYmxlIHdpZHRoPScxMD LsNfLppDkcOI1sVt9jSHLhTJC v rLlljRXeZuOyw9hxUYNvOQkpE Q6cwQkjW7HzpTI8DKRav1b9Xh 30C51gP1XesQS+HRLimEY4tAC 0 lZ3bHgAhNkA1JLyiP667RcFcw BJsOtmnh5ddz9fptZc6SkY8WT EpdeJevEzbLIY3s9DuVc76N04 s IHdpZHRoPSIxNSUiIHZhbGlnb t1bvC4zAs6+RHJnaBZ6zMH9gW 1uKnBvDfA5XVwfP869EtBgdRA v Umghp5zeh7qfcCe7VjKzFLVec fBwpKywPTY0h4AgVx67E5HkrT ndi1WwYfb6ja39vAZzs4U2sQB 9 K1GqBWYcfriqsKPfdTeeST2nQ HNomubvBRKktR1kCGYwR9t0Sc FqWkX4SJjhR8GfpoL2SXFfgPU g MAegVFS8O65yj9R3JOEdEBSxG TP3sGV7aV6yqOlieknsbABgeA dukjLoaRcvPQldAOghF662DZJ v rJamRVBipW1lQBXqmWCyiBlmG D3qTWNbbecvPpoPKmuLQDarWD RMNJKGMyH2I8GvNpz6SYUhzKx s ID8tzEFsPPxqTm3sfRgifPfwM Z0uKOFyxhevHYRinP0xNQOqyH HsmKusBH4gCBVicvwif960MpZ x ABO2SMDyrWSxV6DgwU7hMnVwI CGtESFoZ3RqeMDsRRjcJ612SI wzJaL8GEXmozAkE3LwUKIjmUv u ErF4m7J5Xo6pZj3zQG9bRGD8D A26PY44bCPir7W7hTD6J3VqIY PrwkshaxjoiWH6ADMrZULfbU2 7 lDQdAUwfUr5zg7R1y102SWEoE DCsnM46Ir8qdLupLRBzgXULaF 5aksrkn8vzlbvwZwQkNEAnOHz 0 BYh3IIBfjQgkXtOzGRL1SsK7D QN8vWUvcH0iyIzcqifxlX1nJe c+DjNdLVGjchT8J1ScKec8MHY z zIngJY8wjTUhXHnfGo5wtJyuz VtxYI3cJXDwedrpIKJrcO7uLQ XsjWBghTkjYF5lYUUeqfnsw09 0 NwRiVZQ8SWZzhJWhC6OkdY4bC zRiTQAkPQIlJ9ZywEPcUTevS5 36FHetYiN9TVUeegCbH2RjAJL s dNhbTlG2u0Y6Ex8FSN9ceID1N 6QxWoy5OVWjdTvyAA8ddDOcRT snUv0diCxtgSggFF3eXUMmtmp w XMCdoU1vAWCzoMAtaPfiSI2uX OUijyyfn307CtEtSNV9ULPndX CmS4LxpQ4hNkKzWVZdPDOxB9I l iKZnKHqjG445MBoxTzB6LPRhc oUbL7HlBRVrvRovAhI4j3C8Aw 4QGNZgVTElrOOyYeL3F8OmBrz v dHI+NH31KXAcTV38yWJhvDPdz 5crkRv8OaCkGIEsDBA8cXndSL now7YvHOIcK09pwOKea2W3BTX v dCnhkXAiPmDjoCW6dZ5oZGkkr zmqc7xjuewwTtqws1xmgo29dP 91E18hCNpzOZTeCANrJUQpVQC h lIisdm1fbU8aJf8+RRTljKT3k VB9uA5wAtBqCdD6FDduA672Qw LtcPBtOrssv0cts6wdjXi7VxZ w ALSqbiWtwVtqVDD1y6QnZt80E 29sIHdpZHRoPSIyMCUiIHZhbG vdgh5vaK6eOf9+TI3fg9ksrl0 1 nP81dFX+TYMsQJR7xFvaJKqfA FJpbQ8qSYjpOoF8XASoYtSmuM 26rLDfGLnhEf0koNfnzLjrIU6 w WMIlyuiii765WcOxi3zkBPZqj UNvKPmtQGN4O86hk1Y5RDIrIW IpSBB0vID2aZ3rjRzfzzztcDD m hJpzfcIgtIluNIksZOuyB373J QHykWvnLtCuiSRrU8aeehKCUK 1lOjwvdGQ+OJOuBHZ5oPrjRZi w DKZxiK3zPCPaL4f3IeKlOyC1H SsxN4RkfrX0HRWshSNqLLBlhN TJsO0bcomfw2mhsujkXeCfWOH w WMv0GFx1KZOlxSzbYcZoYNJ6S wR7NVS3wJAodA2qkAnragvovC 9wOyc+RklOOjwvdGQ+PHRkIHN 0 kLkdXWiaGBPdfZ3wNYTqM4o3N yQuVfY0XBgfZ9OkyzA0JOXvlD DzALFpgXMHlE0kfjvoq5eksvg g EsLgQKUbVEb0ADp6EQHjuUscO lLsULG9EeD5TFF9pRGbhB5kjK gdllmqkO0iEyr+TVJOOjwvdGQ + MLWiNGV5sWlvJFuvINRoeT7cB GZoV5v8ZsTaTaK9ZTeaZ9Kzbw U4VCNwjNHzPMPsaGIBmO9jdgp j d0zrfeqiWhOwWTYoXWk0KRk0Y PAvwTkxWfDlXIK4KzM3ZMZ7tJ HsyO1jiFdlivjukY9pKja+UGF 5 ABD4IW68VF58O1IhWyoswEMyj +PHRhYmxlIHdpZHRoPScxMD HcRhQkbUkzBD6fIg3lNYXbLWS v [facility] (more content not included)... Normal [facility] Formson 08-25-2021 Forms [id number] Normal [facility] Ambulatory Visit Summaryon 0 08-24-2021 Ambulatory Visit Summary SABI SANTAMARIA :1945 Visit Date:08/24/2021 Ambulatory Visit Instructions Your Diagnosis Gross hematuria UTI (urinary tract infection) Tests Performed Urnls Dip Stick Auto w/o Microscopy POC 89368 Your Care Team Attending Physician - Jose SORIA MD Primary Care Physician - Merrill Doherty MD This Is Your Medications List cephalexin (Keflex 250 mg Cap) Contact prescribing physician if questions or concerns Misc Prescription (VITAMIN D3 (DOUGLAS) 1,000IU CAP) acetaminophen (acetaminophen 500 mg Tab) acetaminophen-oxycodone (Percocet 325 mg-5 mg Tab) acetaminophen-oxycodone (Percocet 325 mg-5 mg Tab) atorvastatin (atorvastatin 80 mg Tab) busPIRone (busPIRone 5 mg Tab) calcium citrate (calcium (as calcium citrate) 200 mg oral tablet) carvedilol (carvedilol 6.25 mg Tab) cephalexin diclofenac (Diclofenac 75mg Tab-DR) docusate (Colace 100 mg Cap) docusate (Colace 100 mg Cap) ergocalciferol (Vitamin D) hydrALAZINE (hydrALAZINE 25 mg Tab) irbesartan (irbesartan 300 mg Tab) lorazepam (LORazepam 0.5 mg Tab) losartan (losartan 100 mg Tab) melatonin (melatonin 5 mg oral tablet) meloxicam (meloxicam 15 mg Tab) meloxicam (meloxicam 15 mg Tab) omeprazole (omeprazole 20 mg Cap-DR) Procedures Performed Total knee arthroplasty (12/18/2019), Abdominal hysterectomy, Arthroscopy, Colonoscopy, Total knee arthroplasty. Discharge Vitals Height 155 cm Height 155.0 cm Weight 64 kg Weight 64.0 kg BMI 26.64 What to do next You Need to Schedule the Following Appointments Follow Up with ESTELLA JOHNSON, CECIL Acevedo When: Only if needed Where: [address] [address]- Medications What How Much When Instructions New cephalexin (Keflex 250 mg Cap) 1 Capsules By Mouth Every 6 hours Duration: 5 Days Pickup at [facility]/pharmacy #[id number] Unchanged acetaminophen (acetaminophen 500 mg Tab) Oral Contact prescribing physician if questions or concerns Unchanged acetaminophen-oxycodone (Percocet 325 mg-5 mg Tab) See instructions 1-2 tab(s) Oral q4hr Contact prescribing physician if questions or concerns Unchanged acetaminophen-oxycodone (Percocet 325 mg-5 mg Tab) See instructions 1-2 tab(s) Oral q4hr Contact prescribing physician if questions or concerns Unchanged atorvastatin (atorvastatin 80 mg Tab) Oral Contact prescribing physician if questions or concerns Unchanged busPIRone (busPIRone 5 mg Tab) 1 Tablets Contact prescribing physician if questions or concerns Unchanged calcium citrate (calcium (as calcium citrate) 200 mg oral tablet) 2 Tablets By Mouth Every day Contact prescribing physician if questions or concerns Unchanged carvedilol (carvedilol 6.25 mg Tab) 1 Unknown, Oral Contact prescribing physician if questions or concerns Unchanged cephalexin 500 Milligram By Mouth 2 times a day Contact prescribing physician if questions or concerns Unchanged diclofenac (Diclofenac 75mg Tab-DR) 1 TAB By Mouth 2 times a day Contact prescribing physician if questions or concerns Unchanged docusate (Colace 100 mg Cap) 1 Capsules By Mouth 2 times a day as needed for for constipation Contact prescribing physician if questions or concerns Unchanged docusate (Colace 100 mg Cap) 1 Capsules By Mouth 2 times a day as needed for for constipation Contact prescribing physician if questions or concerns Unchanged ergocalciferol (Vitamin D) 1,200 International unit By Mouth Every day Contact prescribing physician if questions or concerns Unchanged hydrALAZINE (hydrALAZINE 25 mg Tab) 1 Tablets Contact prescribing physician if questions or concerns Unchanged irbesartan (irbesartan 300 mg Tab) 1 Tablets By Mouth Every day Contact prescribing physician if questions or concerns Unchanged lorazepam (LORazepam 0.5 mg Tab) Contact prescribing physician if questions or concerns Unchanged losartan (losartan 100 mg Tab) 1 Tablets Contact prescribing physician if questions or concerns Unchanged melatonin (melatonin 5 mg oral tablet) 10 Unknown, Oral Contact prescribing physician if questions or concerns Unchanged meloxicam (meloxicam 15 mg Tab) 1 Tablets By Mouth Every day Contact prescribing physician if questions or concerns Unchanged meloxicam (meloxicam 15 mg Tab) 1 Tablets By Mouth Every day Contact prescribing physician if questions or concerns Unchanged Misc Prescription (VITAMIN D3 (DOUGLAS) 1,000IU CAP) 0 Contact prescribing physician if questions or concerns Unchanged omeprazole (omeprazole 20 mg Cap-DR) Oral Contact prescribing physician if questions or concerns Pharmacy Information [facility]/pharmacy #[id number]: [address], [place] [phone] Test Results Urnls Dip Stick Auto w/o Microscopy POC 00371 (08/24/2021) Bilirubin Urine Dipstick - Negative Blood Urine Dipstick - Trace-intact Glucose Urine Dipstick - Negative Ketones Urine Dipstick - Negative Leukocytes Urine Dipstick - 3+ Large Nitrite Urine Dipst (more content not included)... Normal [facility] Patient Educationon 08-25-19 Patient Education Nutrition BMI for Adults Body mass index (BMI) is a number that is calculated from a person's weight and height. BMI may help to estimate how much of a person's weight is composed of fat. BMI can help identify those who may be at higher risk for certain medical problems. How is BMI used with adults? BMI is used as a screening tool to identify possible weight problems. It is used to check whether a person is obese, overweight, healthy weight, or underweight. How is BMI calculated? BMI measures your weight and compares it to your height. This can be done either in [place] ([place] or metric measurements. Note that charts are available to help you find your BMI quickly and easily without having to do these calculations yourself. To calculate your BMI in [place] measurements, your health care provider will: 1. Measure your weight in pounds (lb). 2. Multiply the number of pounds by 703. ? For example, for a person who weighs 180 lb, multiply that number by 703, which equals 126,540. 3. Measure your height in inches (in). Then multiply that number by itself to get a measurement called inches squared. ? For example, for a person who is 70 in tall, the inches squared measurement is 70 in x 70 in, which equals 4900 inches squared. 4. Divide the total from Step 2 (number of lb x 703) by the total from Step 3 (inches squared): 126,540 ? 4900 = 25.8. This is your BMI. To calculate your BMI in metric measurements, your health care provider will: 1. Measure your weight in kilograms (kg). 2. Measure your height in meters (m). Then multiply that number by itself to get a measurement called meters squared. ? For example, for a person who is 1.75 m tall, the meters squared measurement is 1.75 m x 1.75 m, which is equal to 3.1 meters squared. 3. Divide the number of kilograms (your weight) by the meters squared number. In this example: 70 ? 3.1 = 22.6. This is your BMI. How is BMI interpreted? To interpret your results, your health care provider will use BMI charts to identify whether you are underweight, normal weight, overweight, or obese. The following guidelines will be used: ? Underweight: BMI less than 18.5. ? Normal weight: BMI between 18.5 and 24.9. ? Overweight: BMI between 25 and 29.9. ? Obese: BMI of 30 and above. Please note: ? Weight includes both fat and muscle, so someone with a muscular build, such as an athlete, may have a BMI that is higher than 24.9. In cases like these, BMI is not an accurate measure of body fat. ? To determine if excess body fat is the cause of a BMI of 25 or higher, further assessments may need to be done by a health care provider. ? BMI is usually interpreted in the same way for men and women. Why is BMI a useful tool? BMI is useful in two ways: ? Identifying a weight problem that may be related to a medical condition, or that may increase the risk for medical problems. ? Promoting lifestyle and diet changes in order to reach a healthy weight. Summary ? Body mass index (BMI) is a number that is calculated from a person's weight and height. ? BMI may help to estimate how much of a person's weight is composed of fat. BMI can help identify those who may be at higher risk for certain medical problems. ? BMI can be measured using [place] measurements or metric measurements. ? To interpret your results, your health care provider will use BMI charts to identify whether you are underweight, normal weight, overweight, or obese. This information is not intended to replace advice given to you by your health care provider. Make sure you discuss any questions you have with your health care provider. Document Released: 02/13/2005 Document Revised: 05/17/2018 Document Reviewed: 04/17/2018 [employer] Patient Education ? 2019 [employer]. Urology Hematuria, Adult Hematuria is blood in the urine. Blood may be visible in the urine, or it may be identified with a test. This condition can be caused by infections of the bladder, urethra, kidney, or prostate. Other possible causes include: ? Kidney stones. ? Cancer of the urinary tract. ? Too much calcium in the urine. ? Conditions that are passed from parent to child (inherited conditions). ? Exercise that requires a lot of energy. Infections can usually be treated with medicine, and a kidney stone usually will pass through your urine. If neither of these is the cause of your hematuria, more tests may be needed to identify the cause of your symptoms. It is very important to tell your health care provider about any blood in your urine, even if it is painless or the blood stops without treatment. Blood in the urine, when it happens and then stops and then happens again, can be a symptom of a very serious condition, including cancer. There is no pain in the initial stages of many urinary cancers. Follow these instructions at home: Medicines ? Take [id number] and pres (more content not included)... Normal [facility] Reminderson 08-24-2021 Reminders - From: Muna Diaz MA To: EU - Clinical; Sent: 08/24/2021 11:15:25 EST Show up: 08/26/2021 11:15:00 EST Subject: urine culture Reminder/Recall Urine sent to [facility] for culture Normal [facility] Urology Office/Clinic Noteon 08-24-2021 Urology Office/Clinic Note Chief Complaint New Pt. F/U to Cysto done 04/2021 HPI Staff This is a 76 year old New Pt. here for F/U to Cysto done 04/20/21. Urology consult 04/20/21. Renal US done 04/20/21. Pain with urination:Occasionally Blood in urine:UA shows trace today Incomplete bladder emptying:No Frequency:No Urgency:No Nocturia:Pt. wears a Depends and the Depends will occasionally will be wet. If Pt. drinks a lot of water before bed she will have a wet Depends. Hesitancy:No Urination requires straining:No Stream:good stream Stream starts and stops:No Leaking before getting to the restroom:No Urinary incontinence without sensory awareness:No Temporarily unable to restrain urination with body movement:No Wearing pad/Depends:Yes History of Present Illness Tests Reviewed: Reviewed UA. I have reviewed the previous health record information and history for this patient [place] [facility] [place] I have reviewed and verified the staff HPI to be accurate for this encounter. There have been no associated fever, chills, flank pain, or blood in the urine. Denies any urinary infections since last encounter. Review of Systems ROS - Provider Constitutional: denies weight loss, denies hot flashes. Eyes: denies eye problems. Gastrointestinal: denies nausea, denies vomiting. Cardiovascular: denies chest pain or angina. Integumentary: no dryness Musculoskeletal: denies musculoskeletal symptoms. ENMT: denies otolaryngeal symptoms. Respiratory: no shortness of breath. Heme/Lymph: denies easy bleeding tendency, denies easy bruising tendency. Psychiatric: no confusion, no anxiety. Genitourinary: denies vaginal discharge, denies incontinence, denies dysuria, denies hematuria, denies urinary frequency, denies amenorrhea, denies menorrhagia, denies abnormal bleeding, denies pelvic pain, denies genital sores, and denies decreased libido. Physical Exam Vitals & Measurements HT: 155 cm HT: 155.0 cm WT: 64 kg WT: 64.0 kg BMI: 26.64 General Appearance: alert , no acute distress, well nourished, well developed female. Head: normocephalic . Eyes: normal orbit and globe. ENMT: normal examination of external ears. Chest: Lungs CTA, respirations non labored . Cardiovascular: regular rate and rhythm. Abdomen: soft, non distended, no tenderness, no mass or organomegaly, no hernia. Genitourinary: bladder nonpalpable, no flank tenderness. Lymph Nodes: unremarkable palpation of the cervical area. Skin: warm, dry, no bruising. Psychiatric: cooperative, affect appropriate for age, normal judgement, euthymic mood. Assessment/Plan 1. Gross hematuria (R31.0: Gross hematuria) Patient is here with daughter interpreting. Patient seen for consult. Patient admitted to [facility] on 04/20/21 post CVA and hip fracture. Laureano catheter is indwelling and subsequently developed gross hematuria. S/P cysto done 04/20/2021. Renal US done 04/20/21 No recent witnessed blood. CT A/P shows roughly 4cm mass in the area of the left ovary. She has a repeat CT scheduled in September by Dr. Fernandez. patient's daughter will call when CT is done. Then will review. 2. UTI (urinary tract infection) (N39.0: Urinary tract infection, site not specified) Today's UA suggests infection. Will send UA for culture Will order Keflex 500 mg BID for 5 days. Will call daughter with results. Return PRN Patient is here with her daughter today. 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 As noted above she has good follow-up scheduled with a repeat CT scan ordered by the oncologist. This should also allow us to get a follow-up on the right kidney. She had the mass noted on CT scan which was not confirmed on ultrasound. They agree with the plan. She did have a Laureano catheter removed about 4 to 6 weeks ago and is voiding well. Would not pursue any further work-up of urinary retention which she had previously along with hematuria which has not recurred. Follow-up With When Contact Information ESTELLA JOHNSON, Jose Eugene, URL Only if needed [address] [place] [phone]- Additional Instructions: Patient Education BMI for Adults Hematuria, Adult I, Ashley Cotton, personally scribed for Dr. Soria on 08/24/2021 11:01:25. . Documentation recorded by the scribAshley ash, accurately reflects the services(s) I performed and decisions made by me. Authenticated by Dr. Soria on 08/24/2021 11:08:30. Problem List/Past Medical History Ongoing Anxiety Arthritis Asthma Gross hematuria Hematuria History of uterine cancer Hyperlipidemia Hypertension Pelvic mass UTI (urinary tract infection) Historical No qualifying data Procedure/Surgical History Total knee arthroplasty (12/18/2019), Abdominal hysterectomy, Arthroscopy, Colonoscopy, Total knee arthroplasty. Medications acetaminophen 500 mg Tab atorvastatin 80 mg Tab busPIRone 5 mg Tab, 5 mg= 1 tab(s) calcium (as calcium citrate) 20 (more content not included)... Normal [facility] Comment on above: Result Comment: Elec tronically Signed By: Jose SORIA MD\.br\Date and Time Signed: 08/24/21 11:09 EST\.br\Electronically Co-Signed By: Ashley Cotton MA\.br\Date and Time Co-Signed: 08/24/21 11:01 EST XR hip RT min 2V(w/wo pelvis )*on 06-29-2021 XR hip RT min 2V(w/wo pelvis)* [facility] Other XR hip RT min 2V(w/wo pelvis)* [facility] Other XR hip RT min 2V(w/wo pelvis)* [address] [facility] Other XR hip RT min 2V(w/wo pelvis)* [place] [address] [facility] Other XR hip RT min 2V(w/wo pelvis)* XRay Report [facility] Other XR hip RT min 2V(w/wo pelvis)* Signed [facility] Other XR hip RT min 2V(w/wo pelvis)* Patient: Sabi Santamaria MR#: [id number] [facility] Other XR hip RT min 2V(w/wo pelvis)* [id number] [facility] Other XR hip RT min 2V(w/wo pelvis)* : 1945 Acct:[id number] [facility] Other XR hip RT min 2V(w/wo pelvis)* Age/Sex: 76 / F ADM Date: 06/29/21 [facility] Other XR hip RT min 2V(w/wo pelvis)* Loc: SOXD Room: Type: [facility] Other XR hip RT min 2V(w/wo pelvis)* Attending Dr: Getachew Escalante DO [facility] Other XR hip RT min 2V(w/wo pelvis)* Ordering Provider: Getachew Escalante DO [facility] Other XR hip RT min 2V(w/wo pelvis)* Date of Service: 06/29/21 [facility] Other XR hip RT min 2V(w/wo pelvis)* XR/XR hip RT min 2V(w/wo pelvis)*: Other specified postprocedural states [facility] Other XR hip RT min 2V(w/wo pelvis)* Copies to: Getachew Escalante DO [facility] Other XR hip RT min 2V(w/wo pelvis)* XR hip RT min 2V(w/wo pelvis)* 06/29/2021 1:07 PM [facility] Other XR hip RT min 2V(w/wo pelvis)* SIGNS AND SYMPTOMS: Status post right total hip arthroplasty, follow-up [facility] Other XR hip RT min 2V(w/wo pelvis)* PROTOCOL: Frontal and frog-leg views of the right hip [facility] Other XR hip RT min 2V(w/wo pelvis)* COMPARISON: 05/12/2021 [employer] Other XR hip RT min 2V(w/wo pelvis)* FINDINGS: [facility] Other XR hip RT min 2V(w/wo pelvis)* Hemiarthroplasty hardware is noted in the right hip without fracture or dislocation. Visualized [facility] Other XR hip RT min 2V(w/wo pelvis)* right hemipelvis is grossly intact. Surgical clips are noted in the right hemipelvis. [facility] Other XR hip RT min 2V(w/wo pelvis)* XR/XR hip RT min 2V(w/wo pelvis)* [facility] Other XR hip RT min 2V(w/wo pelvis)* IMPRESSION: [facility] Other XR hip RT min 2V(w/wo pelvis)* Hemiarthroplasty of right hip is redemonstrated without fracture, hardware complication, or [facility] Other XR hip RT min 2V(w/wo pelvis)* malalignment. [facility] Other XR hip RT min 2V(w/wo pelvis)* Impression dictated by: Carl Smith M.D.06/29/2021 1:54 PM [facility] Other XR hip RT min 2V(w/wo pelvis)* Dictation Location: [place] [address] [facility] Other XR hip RT min 2V(w/wo pelvis)* Transcribed By: PAMELA 06/29/21 [facility] Other XR hip RT min 2V(w/wo pelvis)* Dictated By: Carl Smith II, MD 06/29/21 [facility] Other XR hip RT min 2V(w/wo pelvis)* Signed By: [facility] Other XR hip RT min 2V(w/wo pelvis)* 06/29/21 [facility] Other Consultation Noteon 06-16-20 21 Consultation Note [id number]#1.00CD:12 7 [facility] Insurance Correspondence Off iceon 04-29-2021 Insurance Correspondence Office [id number]#1.00CD:1 27 Normal [facility] Consultation Noteon 04-27-20 Consultation Note [id number]#1.00CD:12 7 Normal [facility] Operative Reporton Operative Report [id number]:12 7 Normal [facility] RAD - CT Reporton 04-27-2021 RAD - CT Report [id number]#1.00CD:12 7 [facility] RAD - Ultrasound Reporton RAD - Ultrasound Report [id number]#1.00CD:12 7 [facility] Vital Signs Date Time Vital Sign Value Performing Clinician Facility 04-29-2024 16:12-0500 Body mass index (BMI) [Ratio] 23.81 kg/m2 Debra Walters ANIMAL CARE ASSISTANT Work Phone: [facility] 04-29-2024 16:12-0500 Body weight 57.15 kg Debra Walters ANIMAL CARE ASSISTANT Work Phone: [facility] 04-29-2024 16:12-0500 Diastolic blood pressure 74 mm[Hg] Debra Walters ANIMAL CARE ASSISTANT Work Phone: [facility] 04-29-2024 16:12-0500 Heart rate 67 /min Debra Walters ANIMAL CARE ASSISTANT Work Phone: [facility] 04-29-2024 16:12-0500 SaO2% (BldA) [Mass fraction] 97 % Debra Walters ANIMAL CARE ASSISTANT Work Phone: [facility] 04-29-2024 16:12-0500 Systolic blood pressure 130 mm[Hg] Debra Walters ANIMAL CARE ASSISTANT Work Phone: [facility] 02-27-2024 16:45-0400 Body height 154.9 cm Debra Walters ANIMAL CARE ASSISTANT Work Phone: [facility] 02-27-2024 16:45-0400 Body mass index (BMI) [Ratio] 23.92 kg/m2 Debra Walters ANIMAL CARE ASSISTANT Work Phone: [facility] 02-27-2024 16:45-0400 Body weight 57.42 kg Debra Walters ANIMAL CARE ASSISTANT Work Phone: [facility] 02-27-2024 16:45-0400 Diastolic blood pressure 86 mm[Hg] Debra Walters ANIMAL CARE ASSISTANT Work Phone: [facility] 02-27-2024 16:45-0400 Systolic blood pressure 140 mm[Hg] Debra Walters ANIMAL CARE ASSISTANT Work Phone: [facility] 12-13-2023 15:07-0400 Body height 162.56 cm MD Merrill Doherty Work Phone: [facility] 12-13-2023 15:07-0400 Body mass index (BMI) [Ratio] 22.1 kg/m2 MD Merrill Doherty Work Phone: [facility] 12-13-2023 15:07-0400 Body temperature 97.5 [degF] MD Merrill Doherty Work Phone: [facility] 12-13-2023 15:07-0400 Body weight 58.51 kg MD Merrill Doherty Work Phone: [facility] 12-13-2023 15:07-0400 Diastolic blood pressure 70 mm[Hg] MD Merrill Doherty Work Phone: [facility] 12-13-2023 15:07-0400 Heart rate 65 /min MD Merrill Doherty Work Phone: [facility] 12-13-2023 15:07-0400 Respiratory rate 20 /min MD Merrill Doherty Work Phone: [facility] 12-13-2023 15:07-0400 SaO2% (BldA) [Mass fraction] 98 % MD Merrill Doherty Work Phone: [facility] 12-13-2023 15:07-0400 Systolic blood pressure 109 mm[Hg] MD Merrill Doherty Work Phone: [facility] 06-14-2023 15:02-0500 Body height 162.56 cm MD Merrill Doherty Work Phone: [facility] 06-14-2023 15:02-0500 Body temperature 97.9 [degF] MD Merrill Doherty Work Phone: [facility] 06-14-2023 15:02-0500 Body weight 59.42 kg MD Merrill Doherty Work Phone: [facility] 06-14-2023 15:02-0500 Diastolic blood pressure 94 mm[Hg] MD Merrill Doherty Work Phone: [facility] 06-14-2023 15:02-0500 Heart rate 98 /min MD Merrill Doherty Work Phone: [facility] 06-14-2023 15:02-0500 Respiratory rate 20 /min MD Merrill Doherty Work Phone: [facility] 06-14-2023 15:02-0500 SaO2% (BldA) [Mass fraction] 98 % MD Merrill Doherty Work Phone: [facility] 06-14-2023 15:02-0500 Systolic blood pressure 146 mm[Hg] MD Merrill Doherty Work Phone: [facility] 12-14-2022 15:27-0400 Body temperature 97.8 [degF] MD Merrill Doherty Work Phone: [facility] 12-14-2022 15:27-0400 Body weight 60.32 kg MD Merrill Doherty Work Phone: [facility] 12-14-2022 15:27-0400 Diastolic blood pressure 73 mm[Hg] MD Merrill Doherty Work Phone: [facility] 12-14-2022 15:27-0400 Heart rate 69 /min MD Merrill Doherty Work Phone: [facility] 12-14-2022 15:27-0400 Respiratory rate 16 /min MD Merrill Doherty Work Phone: [facility] 12-14-2022 15:27-0400 SaO2% (BldA) [Mass fraction] 97 % MD Merrill Doherty Work Phone: [facility] 12-14-2022 15:27-0400 Systolic blood pressure 115 mm[Hg] MD Merrill Doherty Work Phone: [facility] 05-31-2022 14:45-0500 Body temperature 97.8 [degF] MD Merrill Doherty Work Phone: [facility] 05-31-2022 14:45-0500 Body weight 59 kg MD Merrill Doherty Work Phone: [facility] 05-31-2022 14:45-0500 Diastolic blood pressure 67 mm[Hg] MD Merrill Doherty Work Phone: [facility] 05-31-2022 14:45-0500 Heart rate 61 /min MD Merrill Doherty Work Phone: [facility] 05-31-2022 14:45-0500 Respiratory rate 16 /min MD Merrill Doherty Work Phone: [facility] 05-31-2022 14:45-0500 SaO2% (BldA) [Mass fraction] 98 % MD Merrill Doherty Work Phone: [facility] 05-31-2022 14:45-0500 Systolic blood pressure 109 mm[Hg] MD Merrill Doherty Work Phone: [facility] 01-13-2022 14:22-0400 Body temperature 96.1 [degF] MD Merrill Doherty Work Phone: [facility] 01-13-2022 14:22-0400 Body weight 58.96 kg MD Merrill Doherty Work Phone: [facility] 01-13-2022 14:22-0400 Diastolic blood pressure 68 mm[Hg] MD Merrill Doherty Work Phone: [facility] 01-13-2022 14:22-0400 Heart rate 63 /min MD Merrill Doherty Work Phone: [facility] 01-13-2022 14:22-0400 Respiratory rate 16 /min MD Merrill Doherty Work Phone: [facility] 01-13-2022 14:22-0400 SaO2% (BldA) [Mass fraction] 98 % MD Merrill Doherty Work Phone: [facility] 01-13-2022 14:22-0400 Systolic blood pressure 102 mm[Hg] MD Merrill Doherty Work Phone: [facility] 11-04-2021 10:30-0400 Body height 154.94 cm Getachew Escalante Other [employer] Other Encounters Encounter Date Encounter Type Care Provider Facility Start: 04-29-2024 End: 04-29-2024 ambulatory DEBRA WALTERS Not Available Start: 04-29-2024 End: 04-29-2024 Office outpatient visit 15 minutes Debra Edward ANIMAL CARE ASSISTANT Work Phone: [employer] Comment on above: Ischemic stroke (CMS /HCC) (Primary Dx); Paresthesia; Hyperlipidemia, unspecified hyperlipidemia type (CMS/HCC); Primary hypertension (CMS/HCC); Gait instability; 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 Start: 04-29-2024 End: 04-29-2024 Bamboo flowsheet Debra Walters ANIMAL CARE ASSISTANT Work Phone: [facility] Start: 04-29-2024 End: 04-29-2024 Bamboo flowsheet Debra Walters ANIMAL CARE ASSISTANT Work Phone: [facility] Start: 03-10-2024 End: 03-10-2024 ambulatory DEBRA WALTERS Not Available Start: 02-27-2024 End: 02-27-2024 Office outpatient visit 25 minutes Debra Edward ANIMAL CARE ASSISTANT Work Phone: [facility] Comment on above: Ischemic stroke (CMS /HCC) (Primary Dx); Paresthesia; Hyperlipidemia, unspecified hyperlipidemia type (CMS/HCC); Primary hypertension (CMS/HCC); Gait instability; 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 Start: 02-27-2024 End: 02-27-2024 ambulatory DEBRA WALTERS Not Available Start: 02-27-2024 End: 02-27-2024 Bamboo flowsheet Debra Walters ANIMAL CARE ASSISTANT Work Phone: [facility] Start: 02-27-2024 End: 02-27-2024 Bamboo flowsheet Debra Walters ANIMAL CARE ASSISTANT Work Phone: [facility] Start: 12-13-2023 End: 12-13-2023 ambulatory MD Merrill Doherty Work Phone: [facility] Work Phone: Start: 12-13-2023 End: 12-13-2023 Patient encounter procedure MD Merrill Doherty [facility] Phone[facility] Work Phone: Start: 12-13-2023 Registered Recurring MD Marika Doherty [facility] Phone[facility] Work Phone: Start: 12-13-2023 ambulatory Merrill Doherty Facility: [facility] Start: 06-14-2023 End: 06-14-2023 ambulatory MD Merrill Doherty Work Phone: [facility] Work Phone: Start: 06-14-2023 End: 06-14-2023 Registered Recurring MD Merrill Doherty [facility] Phone[facility] Work Phone: Start: 12-14-2022 End: 12-14-2022 ambulatory MD Merrill Doherty Work Phone: [facility] Work Phone: Start: 12-14-2022 End: 12-14-2022 Registered Recurring MD Merrill Doherty [facility] Phone[facility] Work Phone: Start: 09-16-2022 End: 09-17-2022 ambulatory ROBINSON COCO . Facility: Start: 05-31-2022 End: 05-31-2022 ambulatory MD Merrill Doherty Work Phone: [facility] Work Phone: Start: 05-31-2022 End: 05-31-2022 Registered Recurring MD Merrill Doherty Work Phone: [facility] Start: 03-20-2022 End: 03-22-2022 Evaluation and management of inpatient DR MERRILL DOHERTY . Facility: Start: 01-13-2022 End: 01-13-2022 Registered Recurring MD Merrill Doherty Work Phone: [facility] Start: 12-20-2021 End: 12-29-2021 Evaluation and management of inpatient OBINNA GARRETT Facility:[facility] Start: 12-20-2021 End: 12-20-[address] OBINNA GARRETT . Facility: Start: 11-10-2021 End: 11-13-2021 Evaluation and management of inpatient DR MERRILL DOHERTY . Facility: Start: 11-04-2021 End: 11-04-2021 ambulatory Getachew Escalante Other [facility] Other Start: 11-04-2021 Office outpatient vi sit 15 minutes Getachew Escalante [facility] Start: 06-29-2021 End: 06-29-2021 ambulatory Getachew Escalante Other [facility] Other Start: 06-29-2021 Postop follow up vis it related to original px Getachew Escalante [facility] Start: 06-29-2021 Telephone encounter Getachew DAMON G [facility] Procedures Date Procedure Procedure Detail Performing Clinician Start: 12-10-2023 Computed tomography of abdomen and pelvis with contrast MD Merrill Doherty Work Phone: Start: 12-12-2022 Computed tomography of abdomen and pelvis with contrast MD Merrill Saravia Phone: Start: 05-16-2022 Computed tomography of abdomen and pelvis with contrast MD Merrill Doherty Work Phone: Start: 10-25-2021 Ultrasonography of limb MD Merrill Saravia Phone: Start: 10-19-2021 Positron emission to mography with computed tomography MD Merrill Doherty Work Phone: Start: 10-10-2021 Computed tomography of abdomen and pelvis with contrast MD Merrill Doherty Work Phone: Plan of Treatment Date Care Activity Detail Author Start: 11-03-2024 End: 11-03-2024 Patient encounter procedure 11/03/2024 4:20 PM EDT [facility] [address] [place] [address] Debra Walters NP [address] [place] [address] [facility] [place] [facility] Start: 04-01-2024 End: 04-01-2024 Patient encounter procedure 04/01/2024 4:00 PM EDT Office Visit [facility] [place] [address] [place] [address] Debra Walters NP [address] [place] [address] [facility] [place] [facility] Start: 03-10-2024 End: 03-10-2024 Clinical Support 03/10/2024 3:20 PM EDT Clinical Support [facility] [place] [address] [place] [address] [facility] [place] [facility] Start: 02-27-2024 End: 02-27-2024 Patient encounter procedure 02/27/2024 4:20 PM EDT Office Visit [facility] [place] [address] [place] [address] Debra Walters NP [address] [facility] [place] [address] [facility] Comment on above: Arrived Start: 02-27-2024 End: 02-26-2025 US.doppler Carotid arteries - bilateral Vascular US carotid artery duplex bilateral Imaging Routine Ischemic stroke (CMS/HCC) Expected: 02/27/2024 (Approximate), Expires: 02/26/2025 [facility] Work Phone: Comment on above: Expected: 02/27/2024 (Approximate), Expires: 02/26/2025 Start: 02-17-2024 Influenza vaccination Influenz a Vaccine (#1) [facility] Cancer Ag 125 [Units/volume] in Serum or Plasma [facility] Work Phone: Cancer Ag 125 [Units/volume] in Serum or Plasma [facility] Cancer Ag 125 [Units/volume] in Serum or Plasma [facility] Cancer Ag 125 [Units/volume] in Serum or Plasma [facility] Cancer Ag 125 [Units/volume] in Serum or Plasma [facility] Comprehensive metabo lic 1999 panel - Serum or Plasma [facility] Work Phone: Comprehensive metabo lic 1999 panel - Serum or Plasma [facility] Comprehensive metabo lic 1999 panel - Serum or Plasma [facility] Comprehensive metabo lic 1999 panel - Serum or Plasma [facility] Comprehensive metabo lic 1999 panel - Serum or Plasma [facility] CT Abdomen and Pelvi s W contrast IV [facility] Work Phone: CT Abdomen and Pelvi s W contrast IV [facility] CT Abdomen and Pelvi s W contrast IV [facility] CT Abdomen and Pelvi s WO and W contrast IV [facility] Immunizations Immunization Date Immunization Notes Care Provider [facility] 04-04-2022 influenza virus vaccine, unspecified formulation Debra Walters NP Work Phone: [facility] 04-29-2021 Fluzone QIV High-Dos e 65YR+ MD Merrill Doherty Work Phone: [facility] 06-18-2019 influenza virus vaccine, unspecified formulation MD Merrill Doherty Work Phone: [facility] 06-18-2019 pneumococcal polysaccharide vaccine, 23 valent Getachew Escalante Other [facility] 06-18-2019 influenza, high dose seasonal, preservative-free Getachew Escalante Other [facility] Other Payers Date Payer Category Payer Private Health Insurance [employer] [id number] 2024 Unknown [employer] [id number] 2024-Present [address] [place] [address] [id number] 2021 Self-pay [id number] 2007 Medicare [id number] 1959 Medicare [id number] 1959 Unknown [id number] 1946 Unknown [id number] [id number]. 2.593 1946 Unknown [id number] [id number]. 2.593 1946 Unknown [id number] [id number]. 2.593 1946 Unknown [id number] [id number]. 2.593 1946 Unknown [id number] [id number]. 2.1259 1946 Unknown [id number] [id number]. 2.1259 1946 Unknown [id number] [id number]. 2.1259 1946 Unknown [id number] [id number]. 2.647 Unknown Private Pay [facility] [place] [place] [id number] Unknown [id number] 2.531 Social History Date Type Detail Facility Start: 02-27-2024 End: 04-29-2024 Sex Assigned At [facility] [employer] Other Start: 01-13-2022 End: 12-27-2023 Tobacco smoking status NHIS Never smoked tobacco (finding) [facility] Start: 1945 Sex Assigned At Female [facility] Start: 12-27-2023 Tobacco use and exposure Smokeless tobacco non-user [facility] Start: 03-06-2024 End: 04-29-2024 Alcoholic beverage intake Ex-drinker (finding) [facility] Start: 02-27-2024 End: 04-29-2024 History of Social function [facility] Start: 1945 Sex assigned at Not on file [facility] Start: 12-27-2023 Alcoholic beverage intake Lifetime non-drinker (finding) [facility] Medical Equipment Procedure Code Equipment Code Equipment Original Text Equipment Identifier Dates 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 Bipolar femoral head outer component, hemiarthroplasty [id number] FDA Start: 04-21-2021 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 Debra Walters NP Chief Complaint Patient presents with Follow-up Subjective Sabi Santamaria is a 79 y.o. female. History of Present Illness The patient presents today for follow up. She is accompanied by her daughter. She had a carotid ultrasound completed. She and her daughter would like to review results. The patient denies any new signs or symptoms of stroke since the prior neurology appointment on 02/27/2024. In particular, she denies vision changes, double vision, vision loss, cognitive changes, dizziness, difficulty speaking, difficulty swallowing, facial asymmetry, or weakness. She lives at home and remains independent with all activities of daily living. She has mild imbalance and uses a walker. She has not fallen recently. She has a phone and Life Alert in case of need. Daughter states the patient generally eats very healthy. She does not smoke or drink alcohol. The patient continues to have intermittent numbness and tingling in her right arm. This is generally unchanged. She states the paresthesias in her head have subsided since the prior neurology appointment. She denies any other new symptoms or concerns. The patient's primary language is [place]. The patient's daughter provided translation for today's appointment, stating she is fluent in both [place]i and [place]. I did offer a professional maintenance worker swimming pool service. The patient and her daughter politely declined this. They understand that, by refusing a professional maintenance worker swimming pool, there is increased risk for miscommunication, misunderstanding, unintended patient harm, and adverse health outcomes. Review of Systems Constitutional: Negative for appetite change, chills, fatigue, fever and unexpected weight change. HENT: Positive for hearing loss (chronic, left-sided). Negative for trouble swallowing and voice change. Eyes: Negative for visual change, double vision or loss of vision Respiratory: Negative for cough, shortness of breath and wheezing. Cardiovascular: Negative for chest pain and palpitations. Gastrointestinal: Negative for abdominal pain, blood in stool, nausea and vomiting. Musculoskeletal: Positive for arthralgias and gait problem (minimal imbalance). Negative for myalgias. Neurological: Negative for dizziness, tremors, seizures, syncope, facial asymmetry, speech difficulty, weakness, light-headedness, numbness and headaches. Positive for paresthesias Psychiatric/Behavioral: Negative for confusion, hallucinations and suicidal ideas. The patient is not nervous/anxious. Home Medication List ASPIRIN 81 PO atorvastatin 80 MG tablet; Commonly known as: Lipitor Centrum Silver Women 50+ tablet Coreg 6.25 MG tablet; Generic drug: carvedilol melatonin 5 MG tablet Past Medical History: Diagnosis Date Anemia Arthritis COVID-19 NSTEMI (non-ST elevated myocardial infarction) ([facility]) Sepsis ([facility]) Stroke ([facility]) UTI (urinary tract infection) 12/2022 Past Surgical History: Procedure Laterality Date HIP SURGERY No family history on file. Social History Tobacco Use Smoking status: Never Smokeless tobacco: Never Substance Use Topics Alcohol use: Not Currently Allergies: Patient has no known allergies. Vitals: 04/29/24 1612 BP: 130/74 Pulse: 67 SpO2: 97% Body mass index is 23.81 kg/m . weight: 126 lb Neurologic exam: Mental status and general appearance: Awake and alert with unlabored respirations. Oriented to person, place and time. Recent and remote memory are intact. Speech is clear and fluent without aphasia. Speech is non-dysarthric. Attention and concentration are normal. Fund of knowledge is appropriate for level of education. Pleasant. Cranial nerves: CN II: Visual acuity is normal. Visual chang full to confrontation. CN III, IV, : Pupils are equal, round, and reactive to light. Extraocular movements intact. No ptosis present. CN V: Facial sensation is normal. CN VII: Full and symmetric facial movement. CN VIII: Hearing is normal to finger rub bilaterally. CN IX and X: Palate elevates symmetrically. CN XI: Shoulder shrug is normal bilaterally. CN XII: Tongue is midline without atrophy or fasciculation. Motor: RUE strength deltoid , biceps , triceps , wrist extensors , wrist flexor , and review trainer strength 5/5. LUE strength deltoid , biceps , triceps , wrist extensors , wrist flexor , and review trainer strength 5/5. RLE strength iliopsoas, quadriceps, tibialis anterior, plantar flexion, and dorsiflexion strength 5/5. LLE strength iliopsoas, quadriceps, tibialis anterior, plantar flexion, and dorsiflexion strength 5/5. Tone and bulk are normal. Sensory: Sensation is intact to light touch throughout all four extremities. Sensation is intact to temperature in all extremities. Reflexes: RUE biceps reflex 2+ , brachioradialis reflex 2+. LUE biceps reflex 2+ , brachioradialis reflex 2+. RLE Knee reflex 2+. LLE Knee reflex 2+. Coordination: [id number] testing normal. Rapid alternating movements are normal. Gait: Steady with use of walker. Review and summary of old records: Carotid ultrasound at [facility] on 03/10/24: No hemodynamically significant stenosis noted. Mild intimal thickening. 1 to 29% stenosis of the right and left ICA. Antegrade flow of the right and left VA. Normal triphasic waveforms in the right and left SCA. Sodium level on 01/07/23: 138. ECHO on 01/04/23: No mention of mass or thrombus. EF 55% CT of the brain without contrast at [facility] on 01/04/23: Stable remote infarcts left basal ganglia and medial occipital lobes. White matter hypoattenuation likely chronic small vessel ischemic change. No acute intracranial abnormality. Labs on 05/16/22: CMP generally unremarkable. Hgb 11.2 (low). RDW 19.5% (high). MRI of the brain w/o contrast on 04/22/21: Evidence of left-sided infarcts which were acute to subacute nature. MR angiogram of the head without contrast on 04/22/21: Unremarkable. Carotid ultrasound on 04/21/21: Unremarkable. 2-D echocardiogram on 04/23/21: Mild LVH with preserved ejection fraction. No masses, vegetation, or thrombus. Labs on 04/22/21: Hemoglobin A1c 5.5%. LDL 132. Assessment/Plan Diagnoses and all orders for this visit: Ischemic stroke (CMS/HCC) The patient has a history of multiple infarcts on the left side of the brain. These were identified on MRI of the brain from 04/22/21. Carotid ultrasound on 04/21/21 and MRA of the head on 04/22/21 were unremarkable. The patient initially presented with right facial and right upper extremity numbness in addition to persistent dizziness and ataxia. Symptoms have essentially resolved aside from continued paresthesias in the right upper extremity. Gabapentin (200 mg PO BID) was not tolerated previously due to dizziness and fatigue, and duloxetine (30 mg PO once a day) was not tolerated due to dizziness and nausea. Carotid ultrasound on 03/10/24 identified no hemodynamically significant stenosis. PLAN: - I reviewed carotid ultrasound results with the patient and her daughter - Continue aspirin 81 mg by mouth once a day for secondary stroke prevention - Continue statin (management per primary care provider; goal LDL less than 70) - Healthy diet and regular physical activity as tolerated - No tobacco use and limited alcohol intake - I advised the patient to follow up closely with primary care provider for management of blood pressure and cholesterol levels to help prevent the risk of future stroke - I have counseled the patient on signs and symptoms of TIA/stroke and educated the patient to seek emergent care in the emergency department if she develops any of these in the future Paresthesia The patient previously reported intermittent episodes of paresthesias involving her entire head and face. These had no accompanying symptoms, and she denied head pain. These have since subsided. Etiology is unclear to me, as the patient's symptoms were transient and followed no particular nerve distribution. Uncertain these would have been neurologic in nature. Her clinical examination today reveals no new neurologic deficits. Hyperlipidemia, unspecified hyperlipidemia type ([facility]/HCC) PLAN: - Follow up with primary care provider for management - Continue statin (prescription and management per PCP) Primary hypertension ([facility]) PLAN: - Follow up with primary care provider for management Gait instability The patient underwent hip surgery and recovered nicely after this per daughter. Physical therapy provided significant benefit for her balance in the past. She denies any recent falls. Does utilize a walker. PLAN: - Continue at home physical therapy exercises at home - Fall prevention measures - Continue use of walker 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 Unilateral hearing loss on the left with use of hearing aid. Per patient and daughter, this was present prior to her stroke. Likely sensorineural hearing loss. PLAN: - Follow up with audiology as indicated Diagnosis and treatment options discussed in detail. All questions answered. The patient and her daughter verbalize understanding and are agreeable to the plan. Discussion in layman's terms. Follow up in the office within 6 months; sooner if needed for new or worsening symptoms. Debra Walters NP [facility] Advanced Neurology documented in this encounter [facility] 02-27-2024 History of Presen t illness Narrative Images from the original note were not included. Debra Walters NP Chief Complaint Patient presents with Tingling History of stroke Subjective Sabi Santamaria is a 79 y.o. female. HPI The patient presents today for follow up. She is accompanied by her daughter. She denies any new signs or symptoms of stroke since the prior neurology appointment. She also denies any falls. She continues to take aspirin and atorvastatin daily as prescribed. She lives at home and remains independent with all activities of daily living. She utilizes a walker when she ambulates. The patient reports continued paresthesias in the right upper extremity. These have not worsened since the previous appointment and have not been bothersome recently. She denies weakness or upper extremity pain. She denies numbness or paresthesias in the lower extremities. The patient also reports intermittent paresthesias involving the entire (bilateral) head. Symptom onset was approximately 3-4 months ago. She states her entire head and face will feel tingly when this happens. Symptoms occur every other day or so. They last approximately 1 to 2 hours and then resolve. She denies head pain or any accompanying symptoms. She denies dizziness, lightheadedness, or syncope. She denies double vision, vision loss, change in vision, altered mental status, difficulty speaking, or difficulty swallowing. The patient and her daughter deny any further new concerns. The patient's daughter provided translation for today's appointment, stating she is fluent in both [place]i and [place]. I did offer a professional maintenance worker swimming pool service. However, the patient and her daughter declined this. They understand that, by refusing a professional maintenance worker swimming pool, there is increased risk for miscommunication, misunderstanding, unintended patient harm, and adverse health outcomes. Review of Systems Constitutional: Negative for appetite change, chills, fatigue, fever and unexpected weight change. HENT: Positive for hearing loss (chronic, left-sided). Negative for trouble swallowing and voice change. Eyes: Negative for visual change, double vision or loss of vision Respiratory: Negative for cough, shortness of breath and wheezing. Cardiovascular: Negative for chest pain and palpitations. Gastrointestinal: Negative for abdominal pain, blood in stool, nausea and vomiting. Musculoskeletal: Positive for arthralgias and gait problem (minimal imbalance). Negative for myalgias. Neurological: Negative for dizziness, tremors, seizures, syncope, facial asymmetry, speech difficulty, weakness, light-headedness, numbness and headaches. Positive for paresthesias Psychiatric/Behavioral: Negative for confusion, hallucinations and suicidal ideas. The patient is not nervous/anxious. Medication List ASPIRIN 81 PO atorvastatin 80 MG tablet; Commonly known as: Lipitor Centrum Silver Women 50+ tablet Coreg 6.25 MG tablet; Generic drug: carvedilol melatonin 5 MG tablet Past Medical History: Diagnosis Date Anemia Arthritis COVID-19 NSTEMI (non-ST elevated myocardial infarction) ([facility]) Sepsis ([facility]) Stroke ([facility]) UTI (urinary tract infection) 12/2022 Past Surgical History: Procedure Laterality Date HIP SURGERY No family history on file. Social History Tobacco Use Smoking status: Never Smokeless tobacco: Never Substance Use Topics Alcohol use: Not Currently Allergies: Patient has no known allergies. Vitals: 02/27/24 1645 BP: 140/86 Body mass index is 23.92 kg/m . weight: 126 lb 9.6 oz Neurologic exam: Mental status: Awake and alert with unlabored respirations. Oriented to person, place and time. Recent and remote memory are intact. Speech is clear and fluent without aphasia. Attention and concentration are normal. Fund of knowledge is appropriate for level of education. Cranial nerves: CN II: Visual acuity is normal. Visual chang full to confrontation. CN III, IV, : Pupils are equal, round and reactive to light. Extraocular movements intact. No ptosis present. CN V: Facial sensation is normal. CN VII: Full and symmetric facial movement. CN VIII: Hearing is normal to finger rub bilaterally. CN IX and X: Palate elevates symmetrically. CN XI: Shoulder shrug is normal bilaterally. CN XII: Tongue is midline without atrophy or fasciculation. Motor: RUE strength deltoid , biceps , triceps , wrist extensors , wrist flexor , and review trainer strength 5/5. LUE strength deltoid , biceps , triceps , wrist extensors , wrist flexor , and review trainer strength 5/5. RLE strength iliopsoas, quadriceps, tibialis anterior, plantar flexion, and dorsiflexion strength 5/5. LLE strength iliopsoas, quadriceps, tibialis anterior, plantar flexion, and dorsiflexion strength 5/5. Tone and bulk are normal. Sensory: Sensation is intact to light touch throughout all four extremities. Sensation is intact to temperature in all extremities. Reflexes: RUE biceps reflex 2+ , brachioradialis reflex 2+. LUE biceps reflex 2+ , brachioradialis reflex 2+. RLE Knee reflex 2+. LLE Knee reflex 2+. Coordination: [id number] testing normal. Rapid alternating movements are normal. Gait: Steady with use of walker. Review and summary of old records: Sodium level on 01/07/23: 138. ECHO on 01/04/23: No mention of mass or thrombus. EF 55% CT of the brain without contrast at [facility] on 01/04/23: Stable remote infarcts left basal ganglia and medial occipital lobes. White matter hypoattenuation likely chronic small vessel ischemic change. No acute intracranial abnormality. Labs on 05/16/22: CMP generally unremarkable. Hgb 11.2 (low). RDW 19.5% (high). MRI of the brain w/o contrast on 04/22/21: Evidence of left-sided infarcts which were acute to subacute nature. MR angiogram of the head without contrast on 04/22/21: Unremarkable. Carotid ultrasound on 04/21/21: Unremarkable. 2-D echocardiogram on 04/23/21: Mild LVH with preserved ejection fraction. No masses, vegetation, or thrombus. Labs on 04/22/21: Hemoglobin A1c 5.5%. LDL 132. Assessment/Plan Diagnoses and all orders for this visit: Ischemic stroke ([facility]) The patient has a history of multiple infarcts on the left side of the brain. These were identified on MRI of the brain from 04/22/21. Carotid ultrasound on 04/21/21 and MRA of the head on 04/22/21 were unremarkable. The patient initially presented with right facial and right upper extremity numbness in addition to persistent dizziness and ataxia. Symptoms have essentially resolved aside from continued paresthesias in the right upper extremity. Gabapentin (200 mg PO BID) was not tolerated previously due to dizziness and fatigue, and duloxetine (30 mg PO once a day) was not tolerated due to dizziness and nausea. PLAN: - Carotid ultrasound to assess for possible arterial stenosis or occlusion - Continue aspirin 81 mg by mouth once a day - Continue statin (management per primary care provider; goal LDL less than 70) - Healthy diet and regular physical activity as tolerated - Smoking cessation encouraged - Follow up closely with primary care provider for management of cerebrovascular risk factors including hypertension and hyperlipidemia - I have counseled the patient on signs and symptoms of TIA/stroke and educated the patient to seek emergent care in the emergency department if she develops any of these in the future Paresthesia The patient presents today reporting intermittent episodes of paresthesias involving her entire head and face. These have no accompanying symptoms, and she denies head pain. Etiology is unclear to me as this time, as the patient's symptoms follow no particular nerve distribution. Her clinical examination today reveals no new neurologic deficits. Will order a carotid ultrasound to assess for possible carotid artery stenosis or occlusion. PLAN: - Carotid ultrasound Hyperlipidemia, unspecified hyperlipidemia type ([facility]) PLAN: - Follow up with primary care provider for management - Continue statin (prescription and management per PCP) Primary hypertension ([facility]) PLAN: - Follow up with primary care provider for management Gait instability The patient underwent hip surgery and recovered nicely after this per daughter. Physical therapy provided significant benefit for her balance in the past. No recent falls. Does utilize a walker. PLAN: - Continue at home physical therapy exercises at home - Fall prevention measures 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 Unilateral hearing loss on the left with use of hearing aid. Per patient and daughter, this was present prior to her stroke. Likely sensorineural hearing loss. PLAN: - Follow with audiology as indicated Diagnosis and treatment options discussed in detail. All questions answered. The patient and her daughter verbalize understanding and are agreeable to the plan. Discussion in layman's terms. Follow up in the office within 1 month; sooner if needed for new or worsening symptoms. Debra Walters NP [facility] Advanced Neurology documented in this encounter [facility] 02-27-2024 Instructions Debra Walters NP - 02/27/2024 4:20 PM EDT - Carotid ultrasound documented in this encounter [facility] 12-15-2022 Progress note Note Date/Time December 14, 2022 3:30pm [facility] [place] [address] Hem/Onc Follow Up Note - OP Signed Patient: Sabi Santamaria MR#: [id number] : 1945 Acct:[id number] Age/Sex: 77 / F Type: REG RCR Copies to: Merrill Doherty MD~ Subjective Date/Time of Service: Date of Service: 12/14/2022 Time of Service: 15:29 Chief Complaint: Patient is here today for a 6 month follow up visit and go overCT scan and labs. No new concerns HPI: 12/14/2022: Sabi is here for 6 month followup with daughter who acts as her maintenance worker swimming pool. She denies any abdominal pain or bloating and has not had any hospitalizations or bowel obstruction symptoms. She continues to eat a regular diet and has no urinary infections, change in frequency, vaginal discharge, or any other concerning symptoms. Labs show mild normocytic anemia which is improved from April to 11.5. CA125 is 19 in comparison to 18 in April which is relatively stable and remains in the normal range. CT of abdomen and pelvis shows no progression of disease with suboptimal evaluation of the pelvis due to streak hardware from the right hip prosthesis but no change in left adnexal lesion. In absence of new symptoms we will continue follow-up every 6 months with CA [address] She may return sooner if new issues arise. Moderate complexity 30-minute follow-up for review of exam, tumor marker, and imaging. 05/31/2022: Sabi is here for about 4 month followup with daughter who acts as her maintenance worker swimming pool. Since last visit patient has not had any recurrence of bowelobstruction symptoms. She is eating a regular diet with no abdominal pain, nausea, bloating, constipation or diarrhea. She denies any pelvic pain and has normal urine output. She has not had any progression of adenopathy and prior ultrasound-guided biopsy of right inguinal node showed no evidence of metastaticcancer or lymphoma. She had repeat Ca 125 which has decreased to 18.3 from prior 23.7 in September 2021. Follow-up CT abdomen pelvis results from 05/16/2022 showing stable left adnexal lesion measuring 4 x 2.8 cm which is essentially unchanged from the October 10, 2021 CT. She otherwise has a cyst of the left kidney, unremarkable right kidney, questionable thickening involving the distal rectum and anal canal. She has not had any melena or bright red blood per rectum and was previously referred to gastroenterology but we received a notice 02/02/2022 that she did not reschedule canceled appointment and they closed the referral. -- We discussed her results and in absence of new symptoms with declining tumor marker and stable findings on exam we will continue follow-up only. She is aware that if she develops new bowel symptoms that we will refer her back to gastroenterology. Otherwise she may follow-up with me in 6 months with CBC, CMP, and CA125 tumor marker. Return sooner as needed. The patient and her daughter are in agreement with this plan over this moderate complexity 35-minutevisit for review of imaging, laboratory results, and assistance with translationof patient with limited ability to speak and understand [place]i. 01/13/2022: Sabi is accompanied by her daughter who acts as her maintenance worker swimming pool. She was hospitalized at [facility] for a bowel obstruction about 3 weeks ago. Her daughter reports that she received an NG tube but did not require any surgery and currently she does not have any abdominal pain, distention, constipation or diarrhea. She is without complaints today. She wasnoted on imaging to have possible enlargement of the left pelvic mass between April 2021 to September 2021 with some enlarged right iliac chain lymph nodes up to 2 cm in size and a large right inguinal lymph node with short axis I 0.3 cm increased in size. I recommended ultrasound-guided biopsy of the right inguinallymph node which occurred 11/09/2021 showing no evidence of metastatic cancer or lymphoma, including negative flow cytometry. She has no other concerns today and laboratories were reviewed showing improvement of prior anemia with hemoglobin to 10.4, CA 125 tumor marker was not repeated prior to visit today. Given her advanced age and absence of new symptoms with negative biopsy for malignancy, I advised her to follow-up in 4 months with CBC, CMP, CA125, and CT abdomen pelvis. She may return sooner if she has new symptomatic pain or distention. The patient and her daughter are in agreement with this plan over this moderate complexity 35-minute visit. 10/12/2021: This patient is primarily [place]-speaking and is accompanied by mary grace who acts as her maintenance worker swimming pool. She is here for transfer of care from Dr. Fernandez who has left the practice. She was hospitalized in early April 2021 for fractured right hip--s/p hemiarthroplasty 04/21/2022. Prior hysterectomy in the early at [facility], ovaries intact. During that hospital stay she had gross hematuria with negative cystoscopy, but she was found to havea 4cm left adnexal mass of uncertain etiology. Biopsy was deferred due to surgical recovery. She has been discharged home from rehab and now lives independently but has a son and daughter who live nearby and both assist in her medical care. She denies abdominal pain or bloating. No vaginal discharge. Nodysuria or current hematuria, no diarrhea or constipation. Her son was unaware of pelvic mass and I reviewed f/u 10/10/2021 CT Abdomen Pelvis which shows mild enlargement of left pelvic mass from prior imaging 04/25/2021 (now 4.2 x 3 x 4.2 cm). Also noted to have an enlarged right iliac chain lymph node with short axis dimension of 2 cm and large right inguinal lymph nodes with short axis dimensions up to 1.3 cm that have also increased in size. There is a T9 vertebral body compression fracture which was not present at time of prior exam. -- I reviewed the images and reports with patient and her son today. I recommended a PET/CT to determine if the inguinal and iliac nodes have FDG avidity and would be suitable for biopsy. This will also evaluate whether thereare potential sites of bony metastatic disease given the T9 vertebral compression and whether there is activity within the left adnexal mass. She will follow-up by phone with me this week and we will determine whether percutaneous biopsy of one of the lymph nodes can be performed. I will then follow-up with her after the biopsy to determine appropriate treatment plan. PREVIOUS ENCOUNTER: Dr. Fernandez 06/14/2021: The patient presents in follow-up today June 06, 2021. She was seen as an inpatient after a fall and a fractured hip. CT abdomen and pelvis was done which showed an enlarged roughly 4 cm mass in the area of the left ovary. It was thought this was either an enlarged ovary or a lymph node. Today in follow-up her daughter presents with her. 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 The patient had a hysterectomy at [facility]. I was told previously this was in [place]. Supposedly this was for uterine cancer. I do not know she had an oophorectomy. Below is the recent summary of findings while she was admitted after the hip fracture: Interval History: CA-125 is normal. Urology note and procedure is noted. Her CT scan is reviewedbelow: Patient: Sabi Santamaria MR#: [id number] : 1945 Acct:[id number] Age/Sex: 76 / F ADM Date: 1 Loc: 4N Room: 7W6730-6 Type: ADM IN Attending Dr: Jayden Abad MD Ordering Provider: Jose Soria MD Date of Service: 04/25/21 CT/CT abdomen pelvis wo/w con: hematuria CT abdomen and pelvis 04/25/2021. CLINICAL DATA: Hematuria. TECHNIQUE: CT of the abdomen and pelvis was performed both without and with intravenous contrast. Axial, sagittal, and coronal reconstructions were created and reviewed. This CT exam was performed using one or more of the following dosereduction techniques: Automated exposure control, adjustment of the mA and/or kVaccording to patient size, or use of iterative reconstruction technique. COMPARISON: None. FINDINGS: Images of the lower chest demonstrate a small hiatal hernia. The liver, spleen, pancreas, and both adrenal glands appear unremarkable. No renal or ureteral calculus is identified. No hydronephrosis or hydroureter is seen. There is a 1.2 cm hypoenhancing lesion in the upper pole of the right kidney. This finding is indeterminate. There is a 6.6 cm simple cyst in the interpolar region of the left kidney. There is a 0.5 cm hypodense focus in the lower pole of the left kidney. Although too small to accurately characterize, this finding probably also represents a cyst. Images of the lower abdomen and pelvis are degraded by the presence of beam hardening artifact related to postsurgical changes and numerous metallic densities. The urinary bladder is catheterized andappears unremarkable as visualized. The uterus is surgically absent. There is a 4.2 X 2.4 by 4.0 cm soft tissue mass in the pelvis on the left. Possibilities include a prominent ovary and an enlarged iliac chain lymph node. No acute intestinal abnormality is identified. The appendix is surgically absent. No freeintra-abdominal air or ascites is seen. The lower thoracic and lumbar spine demonstrate degenerative changes and curvature. There is spondylolisthesis at the lumbosacral junction. A right hip replacement is noted. CT/CT abdomen pelvis wo/w con IMPRESSION: 1. No urolithiasis or obstructive uropathy. 2. Small indeterminate right renal lesion. Ultrasound could be attempted to determine the solid or cystic nature of this finding. 3. Large and probable tiny left renal cysts. 4. Catheterized urinary bladder. 5. Soft tissue mass in the pelvis on the left, potentially a prominent ovary or an enlarged iliac chain lymph node. 6. Other findings as described. The changes seen there in the pelvis can be worked up as an outpatient and I do not think that it is the origin of her problems. The patient had a CVA and appears to have had a fall with subsequent fracture. The work-up at this time with regard to any soft tissue mass in the pelvis can be done as an outpatient. Mass itself is 4.2 cm and possibilities radiographically included a prominent ovary or enlarged lymph nodes. We could consider PET/CT as an outpatient and ifnegative, observation. If it would have increased metabolic activity we could consider biopsy and likely this would be done either laparoscopically or throughIR. At this point I will follow with you. This is a 76-year-old female who does not speak [place]i. She was found down on the floor after stroke. She has a history of a history of hysterectomy or some type of gynecologic surgery in [place] in the distant past. Her CT scan shows either a left-sided pelvic mass or left sided enlarged ovary. CA-125 is currently pending. As above she does not speak [place]i. An needle maker is not in the room. Her CT and reports are reviewed. She had a right femoral head fracture and is status post surgery. She is recovering well. - Summary of Therapies Summary of Therapies: 1. History of a history of hysterectomy or some type of gynecologic surgery in [facility] in about 1979, ovaries intact--unclear prior pathology. She was informed of the past that she had ovarian cancer. ROS Details: All systems reviewed & no additional complaints except as documented Subjective/ROS - Narrative: CONSTITUTIONAL: Unchanged mild fatigue, negative for fever or night sweats. Weight stable over the past year. Previously decreased 10 kg from September to December2021, likely related to hospitalization for bowel obstruction. Patient's daughter states that she has returned to eating normal diet. HEAD AND NECK: Negative for changes in hearing and vision. Negative for mouth ulcers, nasal congestion and nasal drainage. PULMONARY: Negative for chest pain, cough and dyspnea. CARDIOVASCULAR: Negative for claudication and irregular heartbeat/palpitations. GASTROINTESTINAL: Negative for abdominal pain, constipation, decreased appetite,diarrhea, nausea or vomiting. Prior hospitalization 05/2021 for bowel obstruction, nonsurgical intervention with resolution of symptoms. GENITOURINARY: Negative for dysuria and hematuria. Denies pelvic pain or distention. No vaginal discharge or bleeding. ENDOCRINE: Negative for cold intolerance and heat intolerance. CENTRAL NERVOUS SYSTEM: Negative for gait disturbance and headache. No focal neurologic deficits. PSYCHIATRIC: Negative for anxiety or depression. DERMATOLOGICAL: Negative for pruritus and rash. Negative for suspicious skin lesions. MUSCULOSKELETAL: Negative for back pain and bone/joint symptoms. Ambulating in home with a walker. HEMATOLOGICAL: Negative for bleeding and easy bruising. Negative for history of transfusion or thromboembolic disease ALLERGY: Negative for environmental allergies and food allergies. PMFSH - History Attestation statement: The following information was validated with the patient. Source: Old Records Reviewed - Medical History Medical History: Medical History (Last Reviewed 12/15/22 @ 08:55 by Bonnie Hendricks MD) Chronic low back pain Constipation GERD (gastroesophageal reflux disease) Hypertension Neck pain Osteoarthritis Ovarian cancer Stroke UTI (urinary tract infection) - Surgical History Surgical History: Surgical History (Last Reviewed 12/15/22 @ 08:55 by Bonnie Hendricks MD) History of hysterectomy Total knee replacement status - Family History Family History: Family History (Last Reviewed 12/15/22 @ 08:55 by Bonnie Hendricks MD) Sister Ovarian cancer Grandparent Liver cancer - Social History Smoking Status: Never smoker Substance Use Type: None Home Medications & Allergies Allergies No Known Allergies Allergy (Verified 12/14/22 15:24) Home Medications acetaminophen 500 mg tablet 500 mg PO Q8H PRN Fever Or Pain #0 tabs 05/23/21 [Rx Confirmed 12/14/22] aspirin 81 mg chewable tablet (Children's Aspirin) 81 mg PO BID 10 days #0 tabs 05/23/21 [Rx Confirmed 12/14/22] melatonin 5 mg tablet 10 mg PO DAILY@1999 #0 tabs 05/23/21 [Rx Confirmed 12/14/22] calcium lactate 100 mg calcium tablet 100 mg PO BID 06/14/21 [History Confirmed 12/14/22] multivitamin 1 tab PO DAILY 06/14/21 [History Confirmed 12/14/22] omega 9-jkf-aqt-fish oil 1,200 mg (144 mg-216 mg) capsule (Fish Oil) 1 cap PO DAILY 06/14/21 [History Confirmed 12/14/22] carvedilol 6.25 mg tablet 25 mg PO BID.WITH.MEALS 12/14/22 [History Confirmed 12/14/22] gabapentin 100 mg capsule 100 mg PO BID 12/14/22 [History Confirmed 12/14/22] Objective - Height/Weight Height/Weight: Weight 60.328 kg - Vital Signs Vital Signs: 12/14/22 15:27 Temperature 97.8 F Pulse Rate [Left Brachial] 69 Respiratory Rate 16 Blood Pressure [Left Arm] 115/73 02 Sat by Pulse Oximetry 97 Oxygen Delivery Method Room Air Physical Exam Narrative: CONSTITUTIONAL: The patient is in no acute distress. Thin but not cachectic. Daughter acts as maintenance worker swimming pool. HEAD / FACE: Normocephalic. EYES: Pupils are equal and reactive to light. No scleral icterus noted. Conjunctivae and lids are benign in appearance. Ocular movement intact. EARS: Hearing grossly intact. NOSE / MOUTH / THROAT: Nose, mouth, tongue and oropharynx are benign in appearance. No signs of inflammation. NECK / THYROID: Neck is supple. Thyroid is symmetrical, without thyromegaly, masses or palpable nodules. LYMPHATIC: No palpable cervical, supraclavicular, axillary, or inguinal adenopathy. RESPIRATORY: Normal to inspection. Lungs clear to auscultation and percussion. No wheezing, rales, rhonchi or rubs. Normal effort. CARDIOVASCULAR: Regular rate and rhythm. No murmurs, gallops, or rubs. VASCULAR: Carotid, radial, femoral and pedal pulses present bilaterally. No bruits. ABDOMEN: Bowel sounds normoactive. Soft, nontender and non-distended--no pelvic fullness or shifting dullness on exam. No hepatosplenomegaly. No masses. GENITOURINARY: No CVA tenderness. No suprapubic fullness or tenderness. No groinadenopathy. No evidence of hernias. INTEGUMENTARY: The skin is unremarkable. No rashes. No suspicious lesions BACK / SPINE: The back is nontender. No step-off deformity noted. MUSCULOSKELETAL: Normal musculature, no joint deformities or abnormalities, normal range of motion for all four extremities. Ambulates with walker due to prior hip fracture. EXTREMITIES: No edema, cyanosis or clubbing. No Nelly sign. NEUROLOGICAL: Alert and oriented. Cranial nerves intact. No gross motor or sensory deficits. PSYCHIATRIC: No anxiety or evidence of depression. - ECOG Performance Status ECOG Score: 2 Results - Labs Labs: Diagram of Most Recent CBC and CMP 12/12/22 15:50 12/12/22 15:50 Labs - Last 7 Days 12/12/22 15:50: CA 125 Antigen 19.0 12/12/22 15:50: Corrected WBC 4.8, Uncorrected WBC Count 4.8, RBC 4.04, Hgb 11.5L, Hct 35.1, MCV 87.1, MCH 28.6, MCHC 32.8, RDW 14.9, Plt Count 315, MPV 6.9, Neut % (Auto) 56.9, Lymph % (Auto) 31.0, [place] % (Auto) 8.4, Eos % (Auto) 3.1, Baso % (Auto) 0.6, Nucleat RBC Rel Count 0.2, Neut # (Auto) 2.8, Lymph # (Auto) 1.5, [place] # (Auto) 0.4, Eos # (Auto) 0.1, Baso # (Auto) 0.0 12/12/22 15:50: PHA Creatinine Clear N/A, Sodium 137, Potassium 4.3, Chloride 104, Carbon Dioxide 27.1, Anion Gap 10.2, BUN 15, Creatinine 0.69, Est GFR (CKD-EPI) > 60.0, Glucose 99, Calcium 9.1, Total Bilirubin 0.5, AST 13, ALT 8, Alkaline Phosphatase 87, Total Protein 7.8, Albumin 3.8, Globulin 4.0, Albumin/Globulin Ratio 1.0 - Impressions CT ABDOMEN AND PELVIS WITH INTRAVENOUS CONTRAST: CLINICAL HISTORY: 6 month follow-up ovarian cancer surveillance COMPARISON: CT abdomen and pelvis 05/16/2022 TECHNIQUE: Spiral images were obtained through the abdomen and pelvis followingthe administration of intravenous contrast. This CT exam was performed using one or more following dose reduction techniques: Automated exposure control, adjustment of the mA and/or kV according to patient size, or use of iterative reconstruction technique. FINDINGS: Lung Bases: Bibasilar atelectasis. Organs:Liver gallbladder portal vein pancreas spleen and adrenal glands all appear unremarkable. Large cyst left kidney. Right kidney appears unremarkable. Abdominal aorta appears normal in caliber. GI: Stomach is grossly unremarkable. Small bowel appears nondilated. Moderate stool burden. No acute colonic abnormality. Stable thickening involving the distal rectum/anal canal. Pelvis: Suboptimal evaluation due to streak hardware artifact from the patient'sright hip prosthesis. The urinary bladder appears grossly distended without focal abnormality. The patient's known left adnexal lesion is grossly similar to the prior study. Uterus appears to been removed. Peritoneum/Retroperitoneum:No free air, free fluid or lymphadenopathy. No omental or peritoneal disease is seen. Abd wall/Bones:Abdominal wall demonstrate no acute findings. Osseous structuresdemonstrate degenerative change. CT/CT abdomen pelvis w con IMPRESSION: No CT evidence of progression of disease. Impression dictated by: Catracho Bailey Jr., D.OMarino12/12/2022 4:57 PM Assessment and Plan - TNM Staging Staging: Reported history of ovarian cancer remotely in the past (1979), following left adnexal cyst. (1) Pelvic mass This patient is a 77 year old lady previously evaluated by Dr. Fernandez in April and May 2021 after stroke and hip fracture. CT scan of the abdomen and pelvis showed a 4 cm mass near the left ovary. This plan was to review her operative and pathological findings from [facility] where she had original hysterectomy in the . These records could not be located. --He reviewed the differential diagnosis with the patient and daughter in May 2021 and wanted to review the operative and pathological findings and repeat the CT abdomen pelvis in 4 months. Her CA-125 was normal. He deferred any biopsy at that time as the patient was still recovering from her stroke and surgery. She was wheelchair-bound and in a fci. 10/12/2021: She transferred care to [facility] with initial visit 10/12/[address] Fernandez is no longer with the practice. She has not been seen by anybody for the pelvic mass since his initial discovery in April 2021. She does not haveany pelvic pain or distention. The patient's son who acts as her translater wasunaware that she had a pelvic mass and we discussed her CT results as well as reviewed the images today. Since she did have enlargement of right external iliac lymph node and right inguinal lymph nodes (although not palpable on exam) we will evaluate with PET/CT to see if there is FDG avidity in these areas. Based on this result I will follow-up with her daughter or son by phone to review the PET/CT results and to determine appropriate place for biopsy. In addition she has an asymptomatic T9 vertebral body compression fracture. We will determine site for biopsy and appropriate treatment at that time. 10/21/2021: I contacted patient by phone noting PET/CT showing bilateral inguinal lymph nodes with slight increase of FDG uptake. I coordinated ultrasound-guidedbiopsy. 01/13/2022: Follow-up visit delayed by hospitalization for small bowel obstruction at [facility] which resolved with NG tube and no surgical intervention. We did review the results of her fine-needle aspiration of left groin lymph node showing no evidence of metastatic disease in fragmented lymphoid tissue. No lymphoproliferative disorder on flow cytometry. We decidedin absence of current symptoms and negative biopsy that we will defer next follow-up with CBC, CMP, CA 125, and CT abdomen and pelvis to 4 months, sooner if she has new symptoms arise. Patient and daughter in agreement with this plan. 05/31/2022: Sabi presents with her [id number] for follow-up. She no longer has any abdominal pain or distention and is eating a normal diet with no further episodes of small bowel obstruction. She does not have any detectable adenopathy by exam or by restaging 05/16/2022 CT abdomen and pelvis reviewed with the patient and her [id number] today. She has unchanged cyst of the left kidney. She has no evidence of bowel obstruction although there is questionable thickening involving the distal rectum and anal canal. She was previously referred to gastroenterology but did not show up for the appointment. In the absence of symptoms we will defer colonoscopy and repeat imaging in 6 months. The left adnexal lesion identified on previous imaging in September 2021 isstable in size. She has no evidence of free air, free fluid, or lymphadenopathyof the peritoneum and no evidence of omental or peritoneal disease. -- Recommendation is to proceed with surveillance every 6 months with CBC, CMP, and CA125. We will also repeat her abdominal pelvic imaging with contrast in 6 months, sooner if she has new symptoms of pain, distention, bowel obstruction, or change in bowel or bladder function. We also will see her sooner if she develops clinical adenopathy. The patient and her [id number] are in agreement with this plan over this 35-minute follow-up visit. 12/15/2022: No concerning symptoms and Ca 125 tumor marker is stable at 19. CT abdomen and pelvis shows stable left adnexal cyst and no other new findings. She has mild anemia with hemoglobin 11.5 which is improving. We will continue to follow every 6 months with CBC, CMP, CA125, and tumor marker. May consider annual follow-up if no evidence of progression of pelvic mass with next imaging. Moderate complexity 30-minute follow-up. (2) Depression The patient previously described depressive type symptoms. She is no longer in nursing home and moved back into her home with improvement of her symptoms. She is on melatonin for sleep and is not on any current antidepressant. We willcontinue to follow with future visits. (3) S/P hip hemiarthroplasty She sustained a femoral neck fracture with right hip hemiarthroplasty by Dr. Escalante 04/22/2021. She now ambulates with her walker and has returned home from rehab. (4) Ischemic stroke Hospitalized in April 2021 for acute ischemic stroke of left thalamus, temporal occipital lobes with dysarthria, right hemiparesis, visual field deficit. Symptoms have improved but she still requires assistance in ambulationand has residual deficits. Able to ambulate in home with a walker and lives alone but close family nearby for support. (5) Bowel wall thickening Patient is noted on imaging studies to have thickening of the distal rectum/analcanal. Was scheduled for GI evaluation and did not show to appointment. She did have a hospitalization for bowel obstruction May 2021 but has no obstructive symptoms, melena, or hematochezia. For now we will follow with symptoms and serial imaging. (6) Non-Ku[place]i speaking patient Patient expressed understanding and was able to give review of systems with limited Kuwaiti. Different family members served as translators and if we environmental change analyst we will obtain a translation service for her follow-up appointments. - Time with Patient Time Spent with Patient (Follow Up Visit): 35 minutes - Review restaging images and reports, repeat Ca 125, symptoms and exam, surveillance plan Coordination of Care & Counseling Time: Greater than 50% of time spent with patient was for coordination of care (as documented) and [id number] counseling of patient and/or family. Dictated By: Bonnie Hendricks MD DD/ [id number] Signed By: <Electronically signed by MD Bonnie Hendricks> 12/15/22 0901 [facility] Work Phone: [phone] 385-777712-14-2022 Progress note Author Bonnie Hendricks [facility] May 31, 2022 4:00pm Note Date/Time May 31, 2022 2:47pm [facility] [place] [address] Hem/Onc Follow Up Note - OP Signed Patient: Sabi Santamaria MR#: [id number] : 1945 Acct:[id number] Age/Sex: 77 / F Type: REG RCR Copies to: Merrill Doherty MD~ Subjective Date/Time of Service: Date of Service: 05/31/2022 Time of Service: 14:46 Chief Complaint: Patient is here today for 5 month follow up visit and go over labs and CT scan. No new concerns HPI: 05/31/2022: Sabi is here for about 4 month followup with daughter who acts as her maintenance worker swimming pool. Since last visit patient has not had any recurrence of bowelobstruction symptoms. She is eating a regular diet with no abdominal pain, nausea, bloating, constipation or diarrhea. She denies any pelvic pain and has normal urine output. She has not had any progression of adenopathy and prior ultrasound-guided biopsy of right inguinal node showed no evidence of metastaticcancer or lymphoma. She had repeat Ca1 25 which has decreased to 18.3 from prior 23.7 in September 2021. Follow-up CT abdomen pelvis results from 05/16/2022 showing stable left adnexal lesion measuring 4 x 2.8 cm which is essentially unchanged from the October 10, 2021 CT. She otherwise has a cyst of the left kidney, unremarkable right kidney, questionable thickening involving the distal rectum and anal canal. She has not had any melena or bright red blood per rectum and was previously referred to gastroenterology but we received a notice 02/02/2022 that she did not reschedule canceled appointment and they closed the referral. -- We discussed her results and in absence of new symptoms with declining tumor marker and stable findings on exam we will continue follow-up only. She is aware that if she develops new bowel symptoms that we will refer her back to gastroenterology. Otherwise she may follow-up with me in 6 months with CBC, CMP, and CA125 tumor marker. Return sooner as needed. The patient and her daughter are in agreement with this plan over this moderate complexity 35-minutevisit for review of imaging, laboratory results, and assistance with translationof patient with limited ability to speak and understand Kuwaiti. 01/13/2022: Sabi is accompanied by her daughter who acts as her maintenance worker swimming pool. She was hospitalized at [facility] for a bowel obstruction about 3 weeks ago. Her daughter reports that she received an NG tube but did not require any surgery and currently she does not have any abdominal pain, distention, constipation or diarrhea. She is without complaints today. She wasnoted on imaging to have possible enlargement of the left pelvic mass between April 2021 to September 2021 with some enlarged right iliac chain lymph nodes up to 2 cm in size and a large right inguinal lymph node with short axis I 0.3 cm increased in size. I recommended ultrasound-guided biopsy of the right inguinallymph node which occurred 11/09/2021 showing no evidence of metastatic cancer or lymphoma, including negative flow cytometry. She has no other concerns today and laboratories were reviewed showing improvement of prior anemia with hemoglobin to 10.4, CA 125 tumor marker was not repeated prior to visit today. Given her advanced age and absence of new symptoms with negative biopsy for malignancy, I advised her to follow-up in 4 months with CBC, CMP, CA125, and CT abdomen pelvis. She may return sooner if she has new symptomatic pain or distention. The patient and her daughter are in agreement with this plan over this moderate complexity 35-minute visit. 10/12/2021: This patient is primarily [place] Islander-speaking and is accompanied by mary grace who acts as her maintenance worker swimming pool. She is here for transfer of care from Dr. Fernandez who has left the practice. She was hospitalized in early April 2021 for fractured right hip--s/p hemiarthroplasty 04/21/2022. Prior hysterectomy in the early at [facility], ovaries intact. During that hospital stay she had gross hematuria with negative cystoscopy, but she was found to havea 4cm left adnexal mass of uncertain etiology. Biopsy was deferred due to surgical recovery. She has been discharged home from rehab and now lives independently but has a son and daughter who live nearby and both assist in her medical care. She denies abdominal pain or bloating. No vaginal discharge. Nodysuria or current hematuria, no diarrhea or constipation. Her son was unaware of pelvic mass and I reviewed f/u 10/10/2021 CT Abdomen Pelvis which shows mild enlargement of left pelvic mass from prior imaging 04/25/2021 (now 4.2 x 3 x 4.2 cm). Also noted to have an enlarged right iliac chain lymph node with short axis dimension of 2 cm and large right inguinal lymph nodes with short axis dimensions up to 1.3 cm that have also increased in size. There is a T9 vertebral body compression fracture which was not present at time of prior exam. -- I reviewed the images and reports with patient and her son today. I recommended a PET/CT to determine if the inguinal and iliac nodes have FDG avidity and would be suitable for biopsy. This will also evaluate whether thereare potential sites of bony metastatic disease given the T9 vertebral compression and whether there is activity within the left adnexal mass. She will follow-up by phone with me this week and we will determine whether percutaneous biopsy of one of the lymph nodes can be performed. I will then follow-up with her after the biopsy to determine appropriate treatment plan. PREVIOUS ENCOUNTER: Dr. Fernandez 06/14/2021: The patient presents in follow-up today June 06, 2021. She was seen as an inpatient after a fall and a fractured hip. CT abdomen and pelvis was done which showed an enlarged roughly 4 cm mass in the area of the left ovary. It was thought this was either an enlarged ovary or a lymph node. Today in follow-up her daughter presents with her. 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 The patient had a hysterectomy at [facility]. I was told previously this was in [place]. Supposedly this was for uterine cancer. I do not know she had an oophorectomy. Below is the recent summary of findings while she was admitted after the hip fracture: Interval History: CA-125 is normal. Urology note and procedure is noted. Her CT scan is reviewedbelow: Patient: Sabi Santamaria MR#: [id number] : 1945 Acct:[id number] Age/Sex: 76 / F ADM Date: 1 Loc: 4 Room: [address] [place] [address] Type: ADM IN Attending Dr: Jayden Abad MD Ordering Provider: Jose Soria MD Date of Service: 04/25/21 CT/CT abdomen pelvis wo/w con: hematuria CT abdomen and pelvis 04/25/2021. CLINICAL DATA: Hematuria. TECHNIQUE: CT of the abdomen and pelvis was performed both without and with intravenous contrast. Axial, sagittal, and coronal reconstructions were created and reviewed. This CT exam was performed using one or more of the following dosereduction techniques: Automated exposure control, adjustment of the mA and/or kVaccording to patient size, or use of iterative reconstruction technique. COMPARISON: None. FINDINGS: Images of the lower chest demonstrate a small hiatal hernia. The liver, spleen, pancreas, and both adrenal glands appear unremarkable. No renal or ureteral calculus is identified. No hydronephrosis or hydroureter is seen. There is a 1.2 cm hypoenhancing lesion in the upper pole of the right kidney. This finding is indeterminate. There is a 6.6 cm simple cyst in the interpolar region of the left kidney. There is a 0.5 cm hypodense focus in the lower pole of the left kidney. Although too small to accurately characterize, this finding probably also represents a cyst. Images of the lower abdomen and pelvis are degraded by the presence of beam hardening artifact related to postsurgical changes and numerous metallic densities. The urinary bladder is catheterized andappears unremarkable as visualized. The uterus is surgically absent. There is a 4.2 X 2.4 by 4.0 cm soft tissue mass in the pelvis on the left. Possibilities include a prominent ovary and an enlarged iliac chain lymph node. No acute intestinal abnormality is identified. The appendix is surgically absent. No freeintra-abdominal air or ascites is seen. The lower thoracic and lumbar spine demonstrate degenerative changes and curvature. There is spondylolisthesis at the lumbosacral junction. A right hip replacement is noted. CT/CT abdomen pelvis wo/w con IMPRESSION: 1. No urolithiasis or obstructive uropathy. 2. Small indeterminate right renal lesion. Ultrasound could be attempted to determine the solid or cystic nature of this finding. 3. Large and probable tiny left renal cysts. 4. Catheterized urinary bladder. 5. Soft tissue mass in the pelvis on the left, potentially a prominent ovary or an enlarged iliac chain lymph node. 6. Other findings as described. The changes seen there in the pelvis can be worked up as an outpatient and I do not think that it is the origin of her problems. The patient had a CVA and appears to have had a fall with subsequent fracture. The work-up at this time with regard to any soft tissue mass in the pelvis can be done as an outpatient. Mass itself is 4.2 cm and possibilities radiographically included a prominent ovary or enlarged lymph nodes. We could consider PET/CT as an outpatient and ifnegative, observation. If it would have increased metabolic activity we could consider biopsy and likely this would be done either laparoscopically or throughIR. At this point I will follow with you. This is a 76-year-old female who does not speak [place]i. She was found down on the floor after stroke. She has a history of a history of hysterectomy or some type of gynecologic surgery in [place] in the distant past. Her CT scan shows either a left-sided pelvic mass or left sided enlarged ovary. CA-125 is currently pending. As above she does not speak [place]i. An needle maker is not in the room. Her CT and reports are reviewed. She had a right femoral head fracture and is status post surgery. She is recovering well. - Summary of Therapies Summary of Therapies: 1. History of a history of hysterectomy or some type of gynecologic surgery in [facility] in about 1979, ovaries intact--unclear prior pathology. She was informed of the past that she had ovarian cancer. ROS Details: All systems reviewed & no additional complaints except as documented Subjective/ROS - Narrative: CONSTITUTIONAL: Unchanged mild fatigue, negative for fever or night sweats. Weight stable from last visit in December. Previously decreased 10 kg from September toJuly 2021, likely related to hospitalization for bowel obstruction. Patient's daughter states that she has returned to eating normal diet. HEAD AND NECK: Negative for changes in hearing and vision. Negative for mouth ulcers, nasal congestion and nasal drainage. PULMONARY: Negative for chest pain, cough and dyspnea. CARDIOVASCULAR: Negative for claudication and irregular heartbeat/palpitations. GASTROINTESTINAL: Negative for abdominal pain, constipation, decreased appetite,diarrhea, nausea or vomiting. Recent hospitalization for bowel obstruction, nonsurgical intervention with resolution of symptoms. GENITOURINARY: Negative for dysuria and hematuria. Denies pelvic pain or distention. No vaginal discharge or bleeding. ENDOCRINE: Negative for cold intolerance and heat intolerance. CENTRAL NERVOUS SYSTEM: Negative for gait disturbance and headache. No focal neurologic deficits. PSYCHIATRIC: Negative for anxiety or depression. DERMATOLOGICAL: Negative for pruritus and rash. Negative for suspicious skin lesions. MUSCULOSKELETAL: Negative for back pain and bone/joint symptoms. Ambulating in home with a walker. HEMATOLOGICAL: Negative for bleeding and easy bruising. Negative for history of transfusion or thromboembolic disease ALLERGY: Negative for environmental allergies and food allergies. PMFSH - History Attestation statement: The following information was validated with the patient. Source: Old Records Reviewed - Medical History Medical History: Medical History (Last Reviewed 05/31/22 @ 15:50 by Bonnie Hendricks MD) Chronic low back pain Constipation GERD (gastroesophageal reflux disease) Hypertension Neck pain Osteoarthritis Ovarian cancer Stroke UTI (urinary tract infection) - Surgical History Surgical History: Surgical History (Last Reviewed 05/31/22 @ 15:50 by Bonnie Hendricks MD) History of hysterectomy Total knee replacement status - Family History Family History: Family History (Last Reviewed 05/31/22 @ 15:50 by Bonnie Hendricks MD) Sister Ovarian cancer Grandparent Liver cancer - Social History Smoking Status: Never smoker Substance Use Type: None Home Medications & Allergies Allergies No Known Allergies Allergy (Verified 05/31/22 14:44) Home Medications cetirizine 10 mg tablet (Zyrtec) 10 mg PO DAILY 04/20/21 [History Confirmed 05/31/22] atorvastatin 80 mg tablet 80 mg PO QPM #0 tabs 04/23/21 [Rx Confirmed 05/31/22] sennosides 8.6 mg tablet (Senna Lax) 17.2 mg PO BID #0 tabs 04/23/21 [Rx Confirmed 05/31/22] acetaminophen 500 mg tablet 500 mg PO Q8H PRN Fever Or Pain #0 tabs 05/23/21 [Rx Confirmed 05/31/22] aspirin 81 mg chewable tablet (Children's Aspirin) 81 mg PO BID 10 days #0 tabs 05/23/21 [Rx Confirmed 05/31/22] bisacodyl 10 mg rectal suppository 10 mg DE DAILY PRN Constipation #0 ea 05/23/21 [Rx Confirmed 05/31/22] carvedilol 6.25 mg tablet 6.25 mg PO BID.WITH.MEALS #0 tabs 05/23/21 [Rx Confirmed 05/31/22] melatonin 5 mg tablet 10 mg PO DAILY@2000 #0 tabs 05/23/21 [Rx Confirmed 05/31/22] omeprazole 20 mg capsule,delayed release 40 mg PO DAILY.WITH.BKFAST #0 caps 05/23/21 [Rx Confirmed 05/31/22] calcium lactate 100 mg calcium tablet 100 mg PO BID 06/14/21 [History Confirmed 05/31/22] magnesium hydroxide 400 mg/5 mL oral suspension (Milk of Magnesia) 15 ml PO BID PRN Constipation 06/14/21 [History Confirmed 05/31/22] multivitamin 1 tab PO DAILY 06/14/21 [History Confirmed 05/31/22] omega 4-fuf-iwv-fish oil 1,200 mg (144 mg-216 mg) capsule (Fish Oil) 1 cap PO DAILY 06/14/21 [History Confirmed 05/31/22] polyethylene glycol 3350 17 gram oral powder packet (Miralax) 17 g PO DAILY 06/14/21 [History Confirmed 05/31/22] Objective - Height/Weight Height/Weight: Weight 59 kg - Vital Signs Vital Signs: 05/31/22 14:45 Temperature 97.8 F Pulse Rate [Left Brachial] 61 Respiratory Rate 16 Blood Pressure [Left Arm] 109/67 02 Sat by Pulse Oximetry 98 Oxygen Delivery Method Room Air Physical Exam Narrative: CONSTITUTIONAL: The patient is in no acute distress. Thin but not cachectic. Daughter acts as maintenance worker swimming pool. HEAD / FACE: Normocephalic. EYES: Pupils are equal and reactive to light. No scleral icterus noted. Conjunctivae and lids are benign in appearance. Ocular movement intact. EARS: Hearing grossly intact. NOSE / MOUTH / THROAT: Nose, mouth, tongue and oropharynx are benign in appearance. No signs of inflammation. NECK / THYROID: Neck is supple. Thyroid is symmetrical, without thyromegaly, masses or palpable nodules. LYMPHATIC: No palpable cervical, supraclavicular, axillary, or inguinal adenopathy. RESPIRATORY: Normal to inspection. Lungs clear to auscultation and percussion. No wheezing, rales, rhonchi or rubs. Normal effort. CARDIOVASCULAR: Regular rate and rhythm. No murmurs, gallops, or rubs. VASCULAR: Carotid, radial, femoral and pedal pulses present bilaterally. No bruits. ABDOMEN: Bowel sounds normoactive. Soft, nontender and non-distended--no pelvic fullness or shifting dullness on exam. No hepatosplenomegaly. No masses. GENITOURINARY: No CVA tenderness. No suprapubic fullness or tenderness. No groinadenopathy. No evidence of hernias. INTEGUMENTARY: The skin is unremarkable. No rashes. No suspicious lesions BACK / SPINE: The back is nontender. No step-off deformity noted. MUSCULOSKELETAL: Normal musculature, no joint deformities or abnormalities, normal range of motion for all four extremities. Ambulates with walker due to prior hip fracture. EXTREMITIES: No edema, cyanosis or clubbing. No Nelly sign. NEUROLOGICAL: Alert and oriented. Cranial nerves intact. No gross motor or sensory deficits. PSYCHIATRIC: No anxiety or evidence of depression. - ECOG Performance Status ECOG Score: 2 Results - Labs Labs: Diagram of Most Recent CBC and CMP 05/16/22 13:47 wbc 5.2 05/16/22 13:47 05/16/2022: CA 125 18.3 - Impressions CT ABDOMEN AND PELVIS WITH INTRAVENOUS CONTRAST: CLINICAL HISTORY: Follow-up ovarian cancer. COMPARISON: CT abdomen and pelvis 10/10/2021 TECHNIQUE: Spiral images were obtained through the abdomen and pelvis followingthe administration of intravenous contrast. This CT exam was performed using one or more following dose reduction techniques: Automated exposure control, adjustment of the mA and/or kV according to patient size, or use of iterative reconstruction technique. FINDINGS: Lung Bases: Bibasilar atelectasis/scarring Organs:Liver gallbladder spleen and pancreas and adrenal glands all appear unremarkable. Cyst left kidney. Right kidney appears unremarkable. Abdominal aorta appears normal in caliber. GI: Small hiatal hernia. Distal stomach is grossly unremarkable. Small bowel appears nondilated. No acute colonic abnormality. Questionable thickening involving the distal rectum anal canal. Pelvis: Post surgical changes. Uterus has been removed. Urinary bladder is distended without focal abnormality. Left adnexal lesion measuring 4.0 x 2.8 cm similar to the prior study. Peritoneum/Retroperitoneum:No free air, free fluid or lymphadenopathy. No definite omental or peritoneal disease. Abd wall/Bones:Abdominal wall diffusely acute findings. Osseous structures demonstrate degenerative change. CT/CT abdomen pelvis w con IMPRESSION: Stable left adnexal lesion. Questionable thickening involving the distal rectum/anal canal. Correlation withdirect visualization is suggested. No obstruction is seen. Impression dictated by: Catracho Bailey Jr., D.O.05/16/2022 3:56 PM Assessment and Plan (1) Pelvic mass This patient is a 77 year old lady previously evaluated by Dr. Fernandez in April and May 2021 after stroke and hip fracture. CT scan of the abdomen and pelvis showed a 4 cm mass near the left ovary. This plan was to review her operative and pathological findings from [facility] where she had original hysterectomy in the . These records could not be located. --He reviewed the differential diagnosis with the patient and daughter in May 2021 and wanted to review the operative and pathological findings and repeat the CT abdomen pelvis in 4 months. Her CA-125 was normal. He deferred any biopsy at that time as the patient was still recovering from her stroke and surgery. She was wheelchair-bound and in a fci. 10/12/2021: She transferred care to [facility] with initial visit 10/12/[address] Fernandez is no longer with the practice. She has not been seen by anybody for the pelvic mass since his initial discovery in April 2021. She does not have anypelvic pain or distention. The patient's son who acts as her translater was unaware that she had a pelvic mass and we discussed her CT results as well as reviewed the images today. Since she did have enlargement of right external iliac lymph node and right inguinal lymph nodes (although not palpable on exam) we will evaluate with PET/CT to see if there is FDG avidity in these areas. Based on this result I will follow-up with her daughter or son by phone to review the PET/CT results and to determine appropriate place for biopsy. In addition she has an asymptomatic T9 vertebral body compression fracture. We willdetermine site for biopsy and appropriate treatment at that time. 10/21/2021: I contacted patient by phone noting PET/CT showing bilateral inguinal lymph nodes with slight increase of FDG uptake. I coordinated ultrasound-guidedbiopsy. 01/13/2022: Follow-up visit delayed by hospitalization for small bowel obstruction at [facility] which resolved with NG tube and no surgical intervention. We did review the results of her fine-needle aspiration of left groin lymph node showing no evidence of metastatic disease in fragmented lymphoid tissue. No lymphoproliferative disorder on flow cytometry. We decidedin absence of current symptoms and negative biopsy that we will defer next follow-up with CBC, CMP, CA 125, and CT abdomen and pelvis to 4 months, sooner if she has new symptoms arise. Patient and daughter in agreement with this plan. 05/31/2022: Kelly Oneil presents with her [id number] for follow-up. She no longer has any abdominal pain or distention and is eating a normal diet with no further episodes of small bowel obstruction. She does not have any detectable adenopathy by exam or by restaging 05/16/2022 CT abdomen and pelvis reviewed with the patient and her [id number] today. She has unchanged cyst of the left kidney. She has no evidence of bowel obstruction although there is questionable thickening involving the distal rectum and anal canal. She was previously referred to gastroenterology but did not show up for the appointment. In the absence of symptoms we will defer colonoscopy and repeat imaging in 6 months. The left adnexal lesion identified on previous imaging in September 2021 isstable in size. She has no evidence of free air, free fluid, or lymphadenopathyof the peritoneum and no evidence of omental or peritoneal disease. -- Recommendation is to proceed with surveillance every 6 months with CBC, CMP, and CA125. We will also repeat her abdominal pelvic imaging with contrast in 6 months, sooner if she has new symptoms of pain, distention, bowel obstruction, or change in bowel or bladder function. We also will see her sooner if she develops clinical adenopathy. The patient and her [id number] are in agreement with this plan over this 35-minute follow-up visit. (2) Compression fracture of T9 vertebra Qualifiers: Encounter type: subsequent encounter Noted on prior imaging and may be related to prior fall. 10/10/2021 PET/CT did not show any increased uptake in this area suggesting pathologic compression fracture. No comment regarding prior vertebral compression fracture fracture noted on September imaging--this appears relatively stable from my review of her imaging and she does not have any associated pain in this area. (3) Depression The patient previously described depressive type symptoms. She is no longer in nursing home and moved back into her home with improvement of her symptoms. She is on melatonin for sleep and is not on any current antidepressant. We willcontinue to follow with future visits. (4) S/P hip hemiarthroplasty She sustained a femoral neck fracture with right hip hemiarthroplasty by Dr. Escalante 04/22/2021. She now ambulates with her walker and has returned home from rehab. (5) Ischemic stroke Hospitalized in April 2021 for acute ischemic stroke of left thalamus, temporal occipital lobes with dysarthria, right hemiparesis, visual field deficit. Symptoms have improved but she still requires assistance in ambulation and has residual deficits. Able to ambulate in home with a walker and lives alone but close family nearby for support. (6) Bowel wall thickening Patient is noted on imaging studies to have thickening of the distal rectum/analcanal. Was scheduled for GI evaluation and did not show to appointment. She did have a hospitalization for bowel obstruction but has no obstructive symptoms, melena, or hematochezia. For now we will follow with symptoms and serial imaging. (7) Non-[place]i speaking patient Patient expressed understanding and was able to give review of systems with limited [place]i. Different family members served as translators and if we environmental change analyst we will obtain a translation service for her follow-up appointments. - Time with Patient Time Spent with Patient (Follow Up Visit): 35 minutes - Review restaging images and reports, repeat Ca 125, symptoms and exam, surveillance plan Coordination of Care & Counseling Time: Greater than 50% of time spent with patient was for coordination of care (as documented) and [id number] counseling of patient and/or family. Dictated By: Bonnie Hendricks MD DD/ [id number] Signed By: <Electronically signed by MD Bonnie Hendricks> 05/31/22 [address] [facility] Work Phone: 1(630) 827-110107-30-2022 Progress note Author Bonnie Hendricks [facility] January 14, 2022 12:30pm Note Date/Time January 13, 2022 2:33 pm [facility] [place] [address] Hem/Onc Follow Up Note - OP Signed Patient: Sabi Santamaria MR#: [id number] : 1945 Acct:[id number] Age/Sex: 76 / F Type: REG RCR Copies to: Merrill Doherty MD~ Subjective Date/Time of Service: Date of Service: 01/13/2022 Time of Service: 14:32 Chief Complaint: Patient is here for a follow up visit for pelvic mass and had alymph node biopsy ultrasound. She also was at [facility] for bowel obstruction and didnot have to do surgery and is doing well HPI: 01/13/2022: Sabi is accompanied by her daughter who acts as her maintenance worker swimming pool. She was hospitalized at [facility] for a bowel obstruction about 3 weeks ago. Her daughter reports that she received an NG tube but did not require any surgery and currently she does not have any abdominal pain, distention, constipation or diarrhea. She is without complaints today. She wasnoted on imaging to have possible enlargement of the left pelvic mass between April 2021 to September 2021 with some enlarged right iliac chain lymph nodes up to 2 cm in size and a large right inguinal lymph node with short axis I 0.3 cm increased in size. I recommended ultrasound-guided biopsy of the right inguinallymph node which occurred 11/09/2021 showing no evidence of metastatic cancer or lymphoma, including negative flow cytometry. She has no other concerns today and laboratories were reviewed showing improvement of prior anemia with hemoglobin to 10.4, CA 125 tumor marker was not repeated prior to visit today. Given her advanced age and absence of new symptoms with negative biopsy for malignancy, I advised her to follow-up in 4 months with CBC, CMP, CA125, and CT abdomen pelvis. She may return sooner if she has new symptomatic pain or distention. The patient and her daughter are in agreement with this plan over this moderate complexity 35-minute visit. 10/12/2021: This patient is primarily [place]er-speaking and is accompanied by mary grace who acts as her maintenance worker swimming pool. She is here for transfer of care from Dr. Fernandez who has left the practice. She was hospitalized in early April 2021 for fractured right hip--s/p hemiarthroplasty 04/21/2022. Prior hysterectomy in the early at [facility], ovaries intact. During that hospital stay she had gross hematuria with negative cystoscopy, but she was found to havea 4cm left adnexal mass of uncertain etiology. Biopsy was deferred due to surgical recovery. She has been discharged home from rehab and now lives independently but has a son and daughter who live nearby and both assist in her medical care. She denies abdominal pain or bloating. No vaginal discharge. Nodysuria or current hematuria, no diarrhea or constipation. Her son was unaware of pelvic mass and I reviewed f/u 10/10/2021 CT Abdomen Pelvis which shows mild enlargement of left pelvic mass from prior imaging 04/25/2021 (now 4.2 x 3 x 4.2 cm). Also noted to have an enlarged right iliac chain lymph node with short axis dimension of 2 cm and large right inguinal lymph nodes with short axis dimensions up to 1.3 cm that have also increased in size. There is a T9 vertebral body compression fracture which was not present at time of prior exam. -- I reviewed the images and reports with patient and her son today. I recommended a PET/CT to determine if the inguinal and iliac nodes have FDG avidity and would be suitable for biopsy. This will also evaluate whether thereare potential sites of bony metastatic disease given the T9 vertebral compression and whether there is activity within the left adnexal mass. She will follow-up by phone with me this week and we will determine whether percutaneous biopsy of one of the lymph nodes can be performed. I will then follow-up with her after the biopsy to determine appropriate treatment plan. PREVIOUS ENCOUNTER: Dr. Fernandez 06/14/2021: The patient presents in follow-up today June 06, 2021. She was seen as an inpatient after a fall and a fractured hip. CT abdomen and pelvis was done which showed an enlarged roughly 4 cm mass in the area of the left ovary. It was thought this was either an enlarged ovary or a lymph node. Today in follow-up her daughter presents with her. 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 The patient had a hysterectomy at [facility]. I was told previously this was in [place]. Supposedly this was for uterine cancer. I do not know she had an oophorectomy. Below is the recent summary of findings while she was admitted after the hip fracture: Interval History: CA-125 is normal. Urology note and procedure is noted. Her CT scan is reviewedbelow: Patient: Sabi Santamaria MR#: [id number] : 1945 Acct:[id number] Age/Sex: 76 / F ADM Date: 1 Loc: 4 Room: 8D8177-8 Type: ADM IN Attending Dr: Jayden Abad MD Ordering Provider: Jose Soria MD Date of Service: 04/25/21 CT/CT abdomen pelvis wo/w con: hematuria CT abdomen and pelvis 04/25/2021. CLINICAL DATA: Hematuria. TECHNIQUE: CT of the abdomen and pelvis was performed both without and with intravenous contrast. Axial, sagittal, and coronal reconstructions were created and reviewed. This CT exam was performed using one or more of the following dosereduction techniques: Automated exposure control, adjustment of the mA and/or kVaccording to patient size, or use of iterative reconstruction technique. COMPARISON: None. FINDINGS: Images of the lower chest demonstrate a small hiatal hernia. The liver, spleen, pancreas, and both adrenal glands appear unremarkable. No renal or ureteral calculus is identified. No hydronephrosis or hydroureter is seen. There is a 1.2 cm hypoenhancing lesion in the upper pole of the right kidney. This finding is indeterminate. There is a 6.6 cm simple cyst in the interpolar region of the left kidney. There is a 0.5 cm hypodense focus in the lower pole of the left kidney. Although too small to accurately characterize, this finding probably also represents a cyst. Images of the lower abdomen and pelvis are degraded by the presence of beam hardening artifact related to postsurgical changes and numerous metallic densities. The urinary bladder is catheterized andappears unremarkable as visualized. The uterus is surgically absent. There is a 4.2 X 2.4 by 4.0 cm soft tissue mass in the pelvis on the left. Possibilities include a prominent ovary and an enlarged iliac chain lymph node. No acute intestinal abnormality is identified. The appendix is surgically absent. No freeintra-abdominal air or ascites is seen. The lower thoracic and lumbar spine demonstrate degenerative changes and curvature. There is spondylolisthesis at the lumbosacral junction. A right hip replacement is noted. CT/CT abdomen pelvis wo/w con IMPRESSION: 1. No urolithiasis or obstructive uropathy. 2. Small indeterminate right renal lesion. Ultrasound could be attempted to determine the solid or cystic nature of this finding. 3. Large and probable tiny left renal cysts. 4. Catheterized urinary bladder. 5. Soft tissue mass in the pelvis on the left, potentially a prominent ovary or an enlarged iliac chain lymph node. 6. Other findings as described. The changes seen there in the pelvis can be worked up as an outpatient and I do not think that it is the origin of her problems. The patient had a CVA and appears to have had a fall with subsequent fracture. The work-up at this time with regard to any soft tissue mass in the pelvis can be done as an outpatient. Mass itself is 4.2 cm and possibilities radiographically included a prominent ovary or enlarged lymph nodes. We could consider PET/CT as an outpatient and ifnegative, observation. If it would have increased metabolic activity we could consider biopsy and likely this would be done either laparoscopically or throughIR. At this point I will follow with you. This is a 76-year-old female who does not speak [place]i. She was found down on the floor after stroke. She has a history of a history of hysterectomy or some type of gynecologic surgery in [place] in the distant past. Her CT scan shows either a left-sided pelvic mass or left sided enlarged ovary. CA-125 is currently pending. As above she does not speak [place]i. An needle maker is not in the room. Her CT and reports are reviewed. She had a right femoral head fracture and is status post surgery. She is recovering well. ROS Details: All systems reviewed & no additional complaints except as documented Subjective/ROS - Narrative: CONSTITUTIONAL: Unchanged mild fatigue, negative for fever or night sweats. Weight decreased 10 kg since last visit September 2021, likely related to recent bowel obstruction. Patient's daughter states that she has returned to eating normal diet. HEAD AND NECK: Negative for changes in hearing and vision. Negative for mouth ulcers, nasal congestion and nasal drainage. PULMONARY: Negative for chest pain, cough and dyspnea. CARDIOVASCULAR: Negative for claudication and irregular heartbeat/palpitations. GASTROINTESTINAL: Negative for abdominal pain, constipation, decreased appetite,diarrhea, nausea or vomiting. Recent hospitalization for bowel obstruction, nonsurgical intervention with resolution of symptoms. GENITOURINARY: Negative for dysuria and hematuria. Denies pelvic pain or distention. No vaginal discharge or bleeding. ENDOCRINE: Negative for cold intolerance and heat intolerance. CENTRAL NERVOUS SYSTEM: Negative for gait disturbance and headache. No focal neurologic deficits. PSYCHIATRIC: Negative for anxiety or depression. DERMATOLOGICAL: Negative for pruritus and rash. Negative for suspicious skin lesions. MUSCULOSKELETAL: Negative for back pain and bone/joint symptoms. Ambulating in home with a walker. HEMATOLOGICAL: Negative for bleeding and easy bruising. Negative for history of transfusion or thromboembolic disease ALLERGY: Negative for environmental allergies and food allergies. PMFSH - History Attestation statement: The following information was validated with the patient. Source: Old Records Reviewed - Medical History Medical History: Medical History (Last Reviewed 01/14/22 @ 12:22 by Bonnie Hendricks MD) Chronic low back pain Constipation GERD (gastroesophageal reflux disease) Hypertension Neck pain Osteoarthritis Ovarian cancer Stroke UTI (urinary tract infection) - Surgical History Surgical History: Surgical History (Last Reviewed 01/14/22 @ 12:22 by Bonnie Hendricks MD) History of hysterectomy Total knee replacement status - Family History Family History: Family History (Last Reviewed 01/14/22 @ 12:22 by Bonnie Hendricks MD) Sister Ovarian cancer Grandparent Liver cancer - Social History Smoking Status: Never smoker Substance Use Type: None Home Medications & Allergies Allergies No Known Allergies Allergy (Verified 01/13/22 14:21) Home Medications cetirizine 10 mg tablet (Zyrtec) 10 mg PO DAILY 04/20/21 [History Confirmed 11/09/21] atorvastatin 80 mg tablet 80 mg PO QPM #0 tabs 04/23/21 [Rx Confirmed 11/09/21] sennosides 8.6 mg tablet (Senna Lax) 17.2 mg PO BID #0 tabs 04/23/21 [Rx Confirmed 11/09/21] acetaminophen 500 mg tablet 500 mg PO Q8H PRN Fever Or Pain #0 tabs 05/23/21 [Rx Confirmed 11/09/21] aspirin 81 mg chewable tablet (Children's Aspirin) 81 mg PO BID 10 days #0 tabs 05/23/21 [Rx Confirmed 11/09/21] bisacodyl 10 mg rectal suppository 10 mg DE DAILY PRN Constipation #0 ea 05/23/21 [Rx Confirmed 11/09/21] carvedilol 6.25 mg tablet 6.25 mg PO BID.WITH.MEALS #0 tabs 05/23/21 [Rx Confirmed 11/09/21] melatonin 5 mg tablet 10 mg PO DAILY@2000 #0 tabs 05/23/21 [Rx Confirmed 11/09/21] omeprazole 20 mg capsule,delayed release 40 mg PO DAILY.WITH.BKFAST #0 caps 05/23/21 [Rx Confirmed 11/09/21] calcium lactate 100 mg calcium tablet 100 mg PO BID 06/14/21 [History Confirmed 11/09/21] magnesium hydroxide 400 mg/5 mL oral suspension (Milk of Magnesia) 15 ml PO BID PRN Constipation 06/14/21 [History Confirmed 11/09/21] multivitamin 1 tab PO DAILY 06/14/21 [History Confirmed 11/09/21] omega 2-kgx-zbm-fish oil 1,200 mg (144 mg-216 mg) capsule (Fish Oil) 1 cap PO DAILY 06/14/21 [History Confirmed 11/09/21] polyethylene glycol 3350 17 gram oral powder packet (Miralax) 17 g PO DAILY 06/14/21 [History Confirmed 11/09/21] Objective - Height/Weight Height/Weight: Weight 58.967 kg - Vital Signs Vital Signs: 01/13/22 14:22 Temperature 96.1 F L Pulse Rate [Left Brachial] 63 Respiratory Rate 16 Blood Pressure [Left Arm] 102/68 02 Sat by Pulse Oximetry 98 Oxygen Delivery Method Room Air Physical Exam Narrative: CONSTITUTIONAL: The patient is in no acute distress. Thin but not cachectic. Daughter acts as maintenance worker swimming pool. HEAD / FACE: Normocephalic. EYES: Pupils are equal and reactive to light. No scleral icterus noted. Conjunctivae and lids are benign in appearance. Ocular movement intact. EARS: Hearing grossly intact. NOSE / MOUTH / THROAT: Nose, mouth, tongue and oropharynx are benign in appearance. No signs of inflammation. NECK / THYROID: Neck is supple. Thyroid is symmetrical, without thyromegaly, masses or palpable nodules. LYMPHATIC: No palpable cervical, supraclavicular, axillary, I cannot palpate appreciable inguinal adenopathy. RESPIRATORY: Normal to inspection. Lungs clear to auscultation and percussion. No wheezing, rales, rhonchi or rubs. Normal effort. CARDIOVASCULAR: Regular rate and rhythm. No murmurs, gallops, or rubs. VASCULAR: Carotid, radial, femoral and pedal pulses present bilaterally. No bruits. ABDOMEN: Bowel sounds normoactive. Soft, nontender and non-distended--no pelvic fullness or shifting dullness on exam. No hepatosplenomegaly. No masses. GENITOURINARY: No CVA tenderness. No suprapubic fullness or tenderness. No groinadenopathy. No evidence of hernias. INTEGUMENTARY: The skin is unremarkable. No rashes. No suspicious lesions BACK / SPINE: The back is nontender. No step-off deformity noted. MUSCULOSKELETAL: Normal musculature, no joint deformities or abnormalities, normal range of motion for all four extremities. Ambulates with walker due to prior hip fracture. EXTREMITIES: No edema, cyanosis or clubbing. No Nelly sign. NEUROLOGICAL: Alert and oriented. Cranial nerves intact. No gross motor or sensory deficits. PSYCHIATRIC: No anxiety or evidence of depression. - ECOG Performance Status ECOG Score: 2 Results - Labs Labs: Diagram of Most Recent CBC and CMP 10/12/21 12:57 10/12/21 12:57 Laboratories were not drawn prior to appointment 01/13/2022. - Impressions Ultrasound-guided core biopsy of RIGHT groin lymph node. HISTORY: White inguinal lymphadenopathy. RIGHT groin scan demonstrates multiple enlarged lymph nodes. Superficial node was localized which had a thickened cortex and has a width of 13 mm. The skin entry site prepped and draped in sterile fashion. Local lidocaine administered. 18-gauge 10 cm core biopsy device was utilized with ultrasound guidance. 3 18-gauge core samples were obtained. No immediate complications. No bleed. US/US bx lymph node IMPRESSION: Successful ultrasound-guided core biopsy of RIGHT groin lymph nodes. Impression dictated by: Rickey Rey M.D.11/09/2021 3:49 PM Assessment and Plan (1) Pelvic mass This patient is a 76 year old lady previously evaluated by Dr. Fernandez in April and May 2021 after stroke and hip fracture. CT scan of the abdomen and pelvis showed a 4 cm mass near the left ovary. This plan was to review her operative and pathological findings from [facility] where she had original hysterectomy in the . These records could not be located. --He reviewed the differential diagnosis with the patient and daughter in May 2021 and wanted to review the operative and pathological findings and repeat the CT abdomen pelvis in 4 months. Her CA-125 was normal. He deferred any biopsy at that time as the patient was still recovering from her stroke and surgery. She was wheelchair-bound and in a fci. 10/12/2021: She transferred care to [facility] with initial visit 10/12/[address] Fernandez is no longer with the practice. She has not been seen by anybody for the pelvic mass since his initial discovery in April 2021. She does not haveany pelvic pain or distention. The patient's son who acts as her translater wasunaware that she had a pelvic mass and we discussed her CT results as well as reviewed the images today. Since she did have enlargement of right external iliac lymph node and right inguinal lymph nodes (although not palpable on exam) we will evaluate with PET/CT to see if there is FDG avidity in these areas. Based on this result I will follow-up with her daughter or son by phone to review the PET/CT results and to determine appropriate place for biopsy. In addition she has an asymptomatic T9 vertebral body compression fracture. We will determine site for biopsy and appropriate treatment at that time. 10/21/2021: I contacted patient by phone noting PET/CT showing bilateral inguinal lymph nodes with slight increase of FDG uptake. I coordinated ultrasound-guidedbiopsy. 01/13/2022: Follow-up visit delayed by hospitalization for small bowel obstruction at [facility] which resolved with NG tube and no surgical intervention. We did review the results of her fine-needle aspiration of left groin lymph node showing no evidence of metastatic disease in fragmented lymphoid tissue. No lymphoproliferative disorder on flow cytometry. We decidedin absence of current symptoms and negative biopsy that we will defer next follow-up with CBC, CMP, CA 125, and CT abdomen and pelvis to 4 months, sooner if she has new symptoms arise. Patient and daughter in agreement with this plan. This is a moderate complexity visit over 30 minutes for physical and exam and review of recent hospital stay and lymph node pathology. (2) Compression fracture of T9 vertebra Qualifiers: Encounter type: subsequent encounter Noted on prior imaging and may be related to prior fall. 10/10/2021 PET/CT did not show any increased uptake in this area suggesting pathologic compression fracture. We will reevaluate on her CT abdomen pelvis scheduled in 4 months. (3) Depression The patient previously described depressive type symptoms. She is no longer in nursing home and moved back into her home with improvement of her symptoms. She is on melatonin for sleep and is not on any current antidepressant. We willcontinue to follow with future visits. (4) S/P hip hemiarthroplasty She sustained a femoral neck fracture with right hip hemiarthroplasty by Dr. Escalante 04/22/2021. She now ambulates with her walker and has returned home from rehab. (5) Ischemic stroke Hospitalized in April 2021 for acute ischemic stroke of left thalamus, temporal occipital lobes with dysarthria, right hemiparesis, visual field deficit. Symptoms have improved but she still requires assistance in ambulationand has residual deficits. Able to ambulate in home with a walker and lives alone but close family nearby for support. - Time with Patient Time Spent with Patient (Follow Up Visit): 35 minutes - Review recent hospital stay, symptom and exam, planning for restaging labs and imaging Coordination of Care & Counseling Time: Greater than 50% of time spent with patient was for coordination of care (as documented) and [id number] counseling of patient and/or family. Dictated By: Bonnie Hendricks MD DD/ 1432 Signed By: <Electronically signed by MD Bonnie Hendricks> 01/14/22 12[address] [facility] Work Phone: [phone]) 321-996407-30-2022 NoteMR#: [id number] [facility] Pt. Name: Sabi Santamaria Admitted: 12/20/2021 Discharged: 12/29/2021 Date of : 1945 Physician: Minesh Daly M.D. DISCHARGE SUMMARY DISCHARGE ATTENDING: Minesh Daly M.D. PRINCIPAL DIAGNOSIS: Small bowel obstruction. SECONDARY DIAGNOSIS: None. HISTORY: This is 76-year-old female with past medical history of hypertension, hyperlipidemia, and CVA, was transferred from [facility] for small bowel obstruction. The patient complained of severe abdominal pain for one-day duration radiating to the back, associated with constipation, vomiting, nausea, and bloating. CT scan showed dilated bowel loops. During hospitalization, the patient was treated conservatively with no surgical intervention for small bowel obstruction including NG tube, n.p.o., IV fluid, and electrolytes replacement. During hospitalization, the patient developed UTI and was treated with antibiotics. She also developed urinary retention and Laureano catheter was inserted. When the patient retained bowel function, physical symptoms improved. The patient was stable at discharge and followup appointment with Dr. Minesh Daly was scheduled. Discharge instructions provided to the patient and family. Electronically Signed by: Minesh Daly M.D. 01/17/2022 01:11 P Minesh Daly M.D. I personally saw this patient on the day of the encounter, performed the tan portion(s) of the service and participated in the management and confirm the resident's documentation. Please note there may be an additional personal documentation from me. Date Dict: 01/13/2022/08:12 P/Jarrod Davalos MD Date Trans: 01/14/2022 12:43 A/chen [id number] cc: Merrill Doherty M.D. [address] [place] [id number]* Encounter Date Diagnosis Assessment Notes Treatment Notes Treatment Clinical Notes October, Other specified postprocedural states (ICD-10 - Z98.890) October, Closed fracture of head of right femur with routine healing, subsequent encounter (ICD-10 - S72.051D) Sabi is here today about 2 months s/p right hip hemiarthroplasty for FNF. At this juncture we have discussed the findings and diagnosis as well as personally reviewed appropriate imaging and performed interpretation of related testing and examination with the patient in office today. Her son is with her today. Overall she has made an excellent recovery and is very happy with where she is. I will plan to see her back as needed The patient has been involved in our cooperative treatment plan and agrees to move forward with treatment at this time. Radiographs reviewed with patient. Discussed with patient she is progressing well from surgery. Discussed with patient she can transition to a cane. Discussed with patient we will order home health occupational therapy to work on mobility and with cane transition from [employer] Other 04-28-2022 Progress note Author Bonnie Hendricks [facility] October 13, 2021 11:29am Note Date/Time October 12, 2021 11: 53am [facility] at [address] [address] Hem/Onc Follow Up Note - OP Signed Patient: Sabi Santamaria MR#: [id number] : 1945 Acct:[id number] Age/Sex: 76 / F Type: REG RCR Copies to: Merrill Doherty MD~ Subjective Date/Time of Service: Date of Service: 10/12/2021 Time of Service: 11:53 Chief Complaint: Patient is a former patient of Dr Fernandez here for a 4 month follow up with scans for review. HPI: 10/12/2021: This patient is primarily [place]-speaking and is accompanied by mary grace who acts as her maintenance worker swimming pool. She is here for transfer of care from Dr. Fernandez who has left the practice. She was hospitalized in early April 2021 for fractured right hip--s/p hemiarthroplasty 04/21/2022. Prior hysterectomy in the early at [facility], ovaries intact. During that hospital stay she had gross hematuria with negative cystoscopy, but she was found to havea 4cm left adnexal mass of uncertain etiology. Biopsy was deferred due to surgical recovery. She has been discharged home from rehab and now lives independently but has a son and daughter who live nearby and both assist in her medical care. She denies abdominal pain or bloating. No vaginal discharge. Nodysuria or current hematuria, no diarrhea or constipation. Her son was unaware of pelvic mass and I reviewed f/u 10/10/2021 CT Abdomen Pelvis which shows mild enlargement of left pelvic mass from prior imaging 04/25/2021 (now 4.2 x 3 x 4.2 cm). Also noted to have an enlarged right iliac chain lymph node with short axis dimension of 2 cm and large right inguinal lymph nodes with short axis dimensions up to 1.3 cm that have also increased in size. There is a T9 vertebral body compression fracture which was not present at time of prior exam. -- I reviewed the images and reports with patient and her son today. I recommended a PET/CT to determine if the inguinal and iliac nodes have FDG avidityand would be suitable for biopsy. This will also evaluate whether there are potential sites of bony metastatic disease given the T9 vertebral compression and whether there is activity within the left adnexal mass. She will follow-up by phone with me this week and we will determine whether percutaneous biopsy of one of the lymph nodes can be performed. I will then follow-up with her after the biopsy to determine appropriate treatment plan. PREVIOUS ENCOUNTER: Dr. Fernandez 06/14/2021: The patient presents in follow-up today June 06, 2021. She was seen as an inpatient after a fall and a fractured hip. CT abdomen and pelvis was done which showed an enlarged roughly 4 cm mass in the area of the left ovary. It was thought this was either an enlarged ovary or a lymph node. Today in follow-up her daughter presents with her. 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 The patient had a hysterectomy at [facility]. I was told previously this was in [place]. Supposedly this was for uterine cancer. I do not know she had an oophorectomy. Below is the recent summary of findings while she was admitted after the hip fracture: Interval History: CA-125 is normal. Urology note and procedure is noted. Her CT scan is reviewedbelow: Patient: Sabi Santamaria MR#: [id number] [id number] : 1945 Acct:[id number] Age/Sex: 76 / F ADM Date: Loc: 4 Room: [address] [place] [address] Type: ADM IN Attending Dr: Jayden Abad MD Ordering Provider: Jose Soria MD Date of Service: 04/25/21 CT/CT abdomen pelvis wo/w con: hematuria CT abdomen and pelvis 04/25/2021. CLINICAL DATA: Hematuria. TECHNIQUE: CT of the abdomen and pelvis was performed both without and with intravenous contrast. Axial, sagittal, and coronal reconstructions were created and reviewed. This CT exam was performed using one or more of the following dosereduction techniques: Automated exposure control, adjustment of the mA and/or kVaccording to patient size, or use of iterative reconstruction technique. COMPARISON: None. FINDINGS: Images of the lower chest demonstrate a small hiatal hernia. The liver, spleen, pancreas, and both adrenal glands appear unremarkable. No renal or ureteral calculus is identified. No hydronephrosis or hydroureter is seen. There is a 1.2 cm hypoenhancing lesion in the upper pole of the right kidney. This finding is indeterminate. There is a 6.6 cm simple cyst in the interpolar region of the left kidney. There is a 0.5 cm hypodense focus in the lower pole of the left kidney. Although too small to accurately characterize, this finding probably also represents a cyst. Images of the lower abdomen and pelvis are degraded by the presence of beam hardening artifact related to postsurgical changes and numerous metallic densities. The urinary bladder is catheterized andappears unremarkable as visualized. The uterus is surgically absent. There is a 4.2 X 2.4 by 4.0 cm soft tissue mass in the pelvis on the left. Possibilities include a prominent ovary and an enlarged iliac chain lymph node. No acute intestinal abnormality is identified. The appendix is surgically absent. No freeintra-abdominal air or ascites is seen. The lower thoracic and lumbar spine demonstrate degenerative changes and curvature. There is spondylolisthesis at the lumbosacral junction. A right hip replacement is noted. CT/CT abdomen pelvis wo/w con IMPRESSION: 1. No urolithiasis or obstructive uropathy. 2. Small indeterminate right renal lesion. Ultrasound could be attempted to determine the solid or cystic nature of this finding. 3. Large and probable tiny left renal cysts. 4. Catheterized urinary bladder. 5. Soft tissue mass in the pelvis on the left, potentially a prominent ovary or an enlarged iliac chain lymph node. 6. Other findings as described. The changes seen there in the pelvis can be worked up as an outpatient and I do not think that it is the origin of her problems. The patient had a CVA and appears to have had a fall with subsequent fracture. The work-up at this time with regard to any soft tissue mass in the pelvis can be done as an outpatient. Mass itself is 4.2 cm and possibilities radiographically included a prominent ovary or enlarged lymph nodes. We could consider PET/CT as an outpatient and ifnegative, observation. If it would have increased metabolic activity we could consider biopsy and likely this would be done either laparoscopically or throughIR. At this point I will follow with you. This is a 76-year-old female who does not speak [place]i. She was found down on the floor after stroke. She has a history of a history of hysterectomy or some type of gynecologic surgery in [place] in the distant past. Her CT scan shows either a left-sided pelvic mass or left sided enlarged ovary. CA-125 is currently pending. As above she does not speak [place]i. An needle maker is not in the room. Her CT and reports are reviewed. She had a right femoral head fracture and is status post surgery. She is recovering well. ROS Details: All systems reviewed & no additional complaints except as documented Subjective/ROS - Narrative: CONSTITUTIONAL: Unchanged mild fatigue, negative for fever or night sweats. Weight decreased 3 kg since last visit in May. HEAD AND NECK: Negative for changes in hearing and vision. Negative for mouth ulcers, nasal congestion and nasal drainage. PULMONARY: Negative for chest pain, cough and dyspnea. CARDIOVASCULAR: Negative for claudication and irregular heartbeat/palpitations. GASTROINTESTINAL: Negative for abdominal pain, constipation, decreased appetite,diarrhea, nausea or vomiting. GENITOURINARY: Negative for dysuria and hematuria. Denies pelvic pain or distention. No vaginal discharge or bleeding. ENDOCRINE: Negative for cold intolerance and heat intolerance. CENTRAL NERVOUS SYSTEM: Negative for gait disturbance and headache. No focal neurologic deficits. PSYCHIATRIC: Negative for anxiety or depression. DERMATOLOGICAL: Negative for pruritus and rash. Negative for suspicious skin lesions. MUSCULOSKELETAL: Negative for back pain and bone/joint symptoms. Ambulating in home with a walker. HEMATOLOGICAL: Negative for bleeding and easy bruising. Negative for history of transfusion or thromboembolic disease ALLERGY: Negative for environmental allergies and food allergies. [facility] - History Attestation statement: The following information was validated with the patient. Source: Old Records Reviewed - Medical History Medical History: Medical History (Last Reviewed 10/13/21 @ 11:20 by Bonnie Hendricks MD) Chronic low back pain Constipation GERD (gastroesophageal reflux disease) Hypertension Neck pain Osteoarthritis Ovarian cancer Stroke UTI (urinary tract infection) - Surgical History Surgical History: Surgical History (Last Reviewed 10/13/21 @ 11:20 by Bonnie Hendricks MD) History of hysterectomy Total knee replacement status - Family History Family History: Family History (Last Reviewed 10/13/21 @ 11:20 by Bonnie Hendricks MD) Sister Ovarian cancer Grandparent Liver cancer - Social History Smoking Status: Never smoker Substance Use Type: None Home Medications & Allergies Allergies No Known Allergies Allergy (Verified 10/12/21 11:45) Home Medications cetirizine 10 mg tablet (Zyrtec) 10 mg PO DAILY 04/20/21 [History Confirmed 10/12/21] atorvastatin 80 mg tablet 80 mg PO QPM #0 tab 04/23/21 [Rx Confirmed 10/12/21] sennosides 8.6 mg tablet (Senna Lax) 17.2 mg PO BID #0 tab 04/23/21 [Rx Confirmed 10/12/21] buspirone 5 mg tablet 5 mg PO BID #0 tab 04/28/21 [Rx Confirmed 10/12/21] acetaminophen 500 mg tablet 500 mg PO Q8H PRN #0 tab 05/23/21 [Rx Confirmed 10/12/21] aspirin 81 mg chewable tablet (Children's Aspirin) 81 mg PO BID 10 Days #0 tab 05/23/21 [Rx Confirmed 10/12/21] bisacodyl 10 mg rectal suppository 10 mg DE DAILY PRN #0 ea 05/23/21 [Rx Confirmed 10/12/21] carvedilol 6.25 mg tablet 6.25 mg PO BID.WITH.MEALS #0 tab 05/23/21 [Rx Confirmed 10/12/21] melatonin 5 mg tablet 10 mg PO DAILY@2000 #0 tab 05/23/21 [Rx Confirmed 10/12/21] omeprazole 20 mg capsule,delayed release 40 mg PO DAILY.WITH.BKFAST #0 cap 05/23/21 [Rx Confirmed 10/12/21] sucralfate 100 mg/mL oral suspension 1 g (10 mL) PO TID.AC.HS PRN #0 ml 05/23/21[Rx Confirmed 10/12/21] calcium lactate 100 mg calcium tablet 100 mg PO BID 06/14/21 [History Confirmed 10/12/21] losartan 100 mg tablet 100 mg PO DAILY 06/14/21 [History Confirmed 10/12/21] magnesium hydroxide 400 mg/5 mL oral suspension (Milk of Magnesia) 15 ml PO BID PRN 06/14/21 [History Confirmed 10/12/21] multivitamin 1 tab PO DAILY 06/14/21 [History Confirmed 10/12/21] omega 3-chh-zer-fish oil 1,200 mg (144 mg-216 mg) capsule (Fish Oil) 1 cap PO DAILY 06/14/21 [History Confirmed 10/12/21] polyethylene glycol 3350 17 gram oral powder packet (Miralax) 17 g PO DAILY 06/14/21 [History Confirmed 10/12/21] Objective - Height/Weight Height/Weight: Weight 63.639 kg - Vital Signs Vital Signs: 10/12/21 11:45 Temperature 98 F Pulse Rate [Left Brachial] 71 Respiratory Rate 20 Blood Pressure [Left Arm] 80/47 L 02 Sat by Pulse Oximetry 93 L Physical Exam Narrative: CONSTITUTIONAL: The patient is in no acute distress. Thin but not cachectic. Son acts as maintenance worker swimming pool. HEAD / FACE: Normocephalic. EYES: Pupils are equal and reactive to light. No scleral icterus noted. Conjunctivae and lids are benign in appearance. Ocular movement intact. EARS: Hearing grossly intact. NOSE / MOUTH / THROAT: Nose, mouth, tongue and oropharynx are benign in appearance. No signs of inflammation. NECK / THYROID: Neck is supple. Thyroid is symmetrical, without thyromegaly, masses or palpable nodules. LYMPHATIC: No palpable cervical, supraclavicular, axillary, or inguinal adenopathy. RESPIRATORY: Normal to inspection. Lungs clear to auscultation and percussion. No wheezing, rales, rhonchi or rubs. Normal effort. CARDIOVASCULAR: Regular rate and rhythm. No murmurs, gallops, or rubs. VASCULAR: Carotid, radial, femoral and pedal pulses present bilaterally. No bruits. ABDOMEN: Bowel sounds normoactive. Soft, nontender and non-distended--no pelvic fullness or shifting dullness on exam. No hepatosplenomegaly. No masses. GENITOURINARY: No CVA tenderness. No suprapubic fullness or tenderness. No groinadenopathy. No evidence of hernias. INTEGUMENTARY: The skin is unremarkable. No rashes. No suspicious lesions BACK / SPINE: The back is nontender. No step-off deformity noted. MUSCULOSKELETAL: Normal musculature, no joint deformities or abnormalities, normal range of motion for all four extremities. Ambulates with walker due to prior hip fracture. EXTREMITIES: No edema, cyanosis or clubbing. No Nelly sign. NEUROLOGICAL: Alert and oriented. Cranial nerves intact. No gross motor or sensory deficits. PSYCHIATRIC: No anxiety or evidence of depression. - ECOG Performance Status ECOG Score: 2 Results - Labs Labs: Diagram of Most Recent CBC and CMP 10/10/21 10:38 Labs - Last 7 Days 10/10/21 10:38: PHA Creatinine Clear N/A, BUN 11, Creatinine 0.78, Est GFR ( Amer) > 60, Est GFR (Non-Af Amer) > 60 - Impressions CT abdomen and pelvis 10/10/2021. CLINICAL DATA: Pelvic mass. History of uterine cancer. TECHNIQUE: CT of the abdomen and pelvis was performed with intravenous and oral contrast. Axial, sagittal, and coronal reconstructions were created and reviewed. This CT exam was performed using one or more of the following dose reduction techniques: Automated exposure control, adjustment of the mA and/or kVaccording to patient size, or use of iterative reconstruction technique. COMPARISON: 04/25/2021. FINDINGS: Images of the lower chest demonstrate a hiatal hernia. The liver, spleen, pancreas, and both adrenal glands appear unremarkable. There are cysts in both kidneys, larger on the left than right. There are postsurgical changes presumably related to retroperitoneal and bilateral iliac chain lymph node dissection. Evaluation of the lower pelvis is limited by the presence of beam hardening artifact related to right hip replacement. The urinary bladder is dilated. The uterus is surgically absent. There is a 4.2 x 3.0 x 4.2 cm soft tissue mass in the pelvis on the left, adjacent to the psoas medially. This finding has slightly increased in size since the prior exam. There is an enlarged right external iliac chain lymph node with a short axis dimension of 2.0 cm. There are also enlarged right inguinal nodes with short axis dimensions of up to 1.3 cm. These nodes have increased in size. The lower thoracic and lumbar spine demonstrate degenerative changes and curvature. There is a T9 vertebral body compression fracture which was not present at the time of the prior exam. No abdominal wall abnormality is noted. CT/CT abdomen pelvis w con IMPRESSION: 1. Left pelvic mass, slightly increased in size since 04/25/2021. 2. Right external iliac chain and inguinal lymphadenopathy. 3. Other findings as described. Impression dictated by: Huber Segovia Jr., M.D.10/10/2021 4:21 PM Assessment and Plan (1) Pelvic mass This patient is a 76 year old lady previously evaluated by Dr. Fernandez in April and May 2021 after stroke and hip fracture. CT scan of the abdomen and pelvis showed a 4 cm mass near the left ovary. This plan was to review her operative and pathological findings from [facility] where she had original hysterectomy in the . These records could not be located. --He reviewed the differential diagnosis with the patient and daughter in May 2021 and wanted to review the operative and pathological findings and repeat the CT abdomen pelvis in 4 months. Her CA-125 was normal. He deferred any biopsy at that time as the patient was still recovering from her stroke and surgery. She was wheelchair-bound and in a fci. She transferred care to [facility] with initial visit 10/12/[address] Fernandez is no longer with the practice. She has not been seen by anybody for the pelvic mass since his initial discovery in April 2021. She does not have any pelvic painor distention. The patient's son who acts as her translater was unaware that she had a pelvic mass and we discussed her CT results as well as reviewed the images today. Since she does have enlargement of right external iliac lymph node and right inguinal lymph nodes (although not palpable on exam) we will evaluate with PET/CT to see if there is FDG avidity in these areas. Based on this result I will follow-up with her daughter or son by phone to review the PET/CT results and to determine appropriate place for biopsy. In addition she has an asymptomatic T9 vertebral body compression fracture. We will determine site for biopsy and appropriate treatment at that time. This is a moderate complexity visit over 35 minutes for physical and exam and review of records and imaging. (2) Compression fracture of T9 vertebra Qualifiers: Encounter type: subsequent encounter Noted on prior imaging and may be related to prior fall although PET/CT to evaluate whether this could have been a pathologic compression fracture. (3) Depression The patient previously described depressive type symptoms. She is no longer in nursing home and moved back into her home with improvement of her symptoms. She is on melatonin for sleep and is not on any current antidepressant. We willcontinue to follow with future visits. (4) S/P hip hemiarthroplasty She sustained a femoral neck fracture with right hip hemiarthroplasty by Dr. Escalante 04/22/2021. She now ambulates with her walker and has returned home from rehab. (5) Ischemic stroke Hospitalized in April 2021 for acute ischemic stroke of left thalamus, temporal occipital lobes with dysarthria, right hemiparesis, visual field deficit. Symptoms have improved but she still requires assistance in ambulationand has residual deficits. Able to ambulate in home with a walker and lives alone. - Time with Patient Time Spent with Patient (Follow Up Visit): 35 minutes Coordination of Care & Counseling Time: Greater than 50% of time spent with patient was for coordination of care (as documented) and [id number] counseling of patient and/or family. Dictated By: Bonnie Hendricks MD DD/ [id number] Signed By: <Electronically signed by MD Bonnie Hendricks> 10/13/21 1129 [facility] Work Phone: [phone]) 392-252801-12-2022 Evaluation note* Encounter Date Diagnosis Assessment Notes Treatment Notes Treatment Clinical Notes Jun, Other specified postprocedural states (ICD-10 - Z98.890) Jun, Closed fracture of head of right femur with routine healing, subsequent encounter (ICD-10 - S72.051D) Sabi is here today about 2 months s/p right hip hemiarthroplasty for FNF. At this juncture we have discussed the findings and diagnosis as well as personally reviewed appropriate imaging and performed interpretation of related testing and examination with the patient in office today. Notes from her care facility shows that she is ambulating well. Her son is with her today. Overall she is slowly improving as expected. I would allow her to advance as tolerated at this point without restrictions. She can continue strengthening and mobility work as needed. Once she is cleared from physical therapy she may return home. I will plan to see her back at the 6-month anniversary from her surgery. Consider DEXA scan in future The patient has been involved in our cooperative treatment plan and agrees to move forward with treatment at this time. Radiographs reviewed with patient. Discussed with patient she is progressing well from surgery. Discussed with patient she can progress activity as tolerated. Instructed patient to continue with physical therapy. Jun, Other See orders for this visit as documented in the electronic medical record. [employer] Other 12-28-2021 Progress note Author Rachid Fernandez [facility] June 14, 2021 11:33am Note Date/Time June 14, 2021 11:28am [facility] [place] [address] Hem/Onc Follow Up Note - OP Signed Patient: Sabi Santamaria MR#: [id number] : 1945 Acct:[id number] Age/Sex: 76 / F Type: REG RCR Copies to: Merrill Doherty MD~ Subjective Date/Time of Service: Date of Service: 06/14/2021 Time of Service: 11:26 Chief Complaint: Patient is here today for inpatient follow up visit from hospital 04/28/2021-05/24/2021 for pelvic mass HPI: The patient presents in follow-up today June 06, 2021. She was seen as an inpatient after a fall and a fractured hip. CT abdomen and pelvis was done which showed an enlarged roughly 4 cm mass in the area of the left ovary. It was thought this was either an enlarged ovary or a lymph node. Today in follow-up her daughter presents with her. 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 The patient had a hysterectomy at [facility]. I was told previously this was in [place]. Supposedly this was for uterine cancer. I do not know she had an oophorectomy. Below is the recent summary of findings while she was admitted after the hip fracture: Interval History: CA-125 is normal. Urology note and procedure is noted. Her CT scan is reviewedbelow: Patient: Sabi Santamaria MR#: [id number] : 1945 Acct:[id number] Age/Sex: 76 / F ADM Date: 1 Loc: 4 Room: 2P9452-4 Type: ADM IN Attending Dr: Jayden Abad MD Ordering Provider: Jose Soria MD Date of Service: 04/25/21 CT/CT abdomen pelvis wo/w con: hematuria Copies to: MD Jose Lima MD~ CT abdomen and pelvis 04/25/2021. CLINICAL DATA: Hematuria. TECHNIQUE: CT of the abdomen and pelvis was performed both without and with intravenous contrast. Axial, sagittal, and coronal reconstructions were created and reviewed. This CT exam was performed using one or more of the following dosereduction techniques: Automated exposure control, adjustment of the mA and/or kVaccording to patient size, or use of iterative reconstruction technique. COMPARISON: None. FINDINGS: Images of the lower chest demonstrate a small hiatal hernia. The liver, spleen, pancreas, and both adrenal glands appear unremarkable. No renal or ureteral calculus is identified. No hydronephrosis or hydroureter is seen. There is a 1.2 cm hypoenhancing lesion in the upper pole of the right kidney. This finding is indeterminate. There is a 6.6 cm simple cyst in the interpolar region of the left kidney. There is a 0.5 cm hypodense focus in the lower pole of the left kidney. Although too small to accurately characterize, this finding probably also represents a cyst. Images of the lower abdomen and pelvis are degraded by the presence of beam hardening artifact related to postsurgical changes and numerous metallic densities. The urinary bladder is catheterized andappears unremarkable as visualized. The uterus is surgically absent. There is a 4.2 X 2.4 by 4.0 cm soft tissue mass in the pelvis on the left. Possibilities include a prominent ovary and an enlarged iliac chain lymph node. No acute intestinal abnormality is identified. The appendix is surgically absent. No freeintra-abdominal air or ascites is seen. The lower thoracic and lumbar spine demonstrate degenerative changes and curvature. There is spondylolisthesis at the lumbosacral junction. A right hip replacement is noted. CT/CT abdomen pelvis wo/w con IMPRESSION: 1. No urolithiasis or obstructive uropathy. 2. Small indeterminate right renal lesion. Ultrasound could be attempted to determine the solid or cystic nature of this finding. 3. Large and probable tiny left renal cysts. 4. Catheterized urinary bladder. 5. Soft tissue mass in the pelvis on the left, potentially a prominent ovary or an enlarged iliac chain lymph node. 6. Other findings as described. The changes seen there in the pelvis can be worked up as an outpatient and I do not think that it is the origin of her problems. The patient had a CVA and appears to have had a fall with subsequent fracture. The work-up at this time with regard to any soft tissue mass in the pelvis can be done as an outpatient. Mass itself is 4.2 cm and possibilities radiographically included a prominent ovary or enlarged lymph nodes. We could consider PET/CT as an outpatient and ifnegative, observation. If it would have increased metabolic activity we could consider biopsy and likely this would be done either laparoscopically or throughIR. At this point I will follow with you. This is a 76-year-old female who does not speak [place]i. She was found down on the floor after stroke. She has a history of a history of hysterectomy or some type of gynecologic surgery in [place] in the distant past. Her CT scan shows either a left-sided pelvic mass or left sided enlarged ovary. CA-125 is currently pending. As above she does not speak [place]i. An needle maker is not inthe room. Her CT and reports are reviewed. She had a right femoral head fracture and is status post surgery. She is recovering well. Subjective/ROS - Narrative: She appears to be healing well. Talking with her daughter today the patient appears to be depressed. She is asking for medication. [facility] - Medical History Medical History: Medical History (Last Reviewed 04/29/21 @ 18:57 by JAZLYN Singh) Chronic low back pain Constipation GERD (gastroesophageal reflux disease) Hypertension Neck pain Osteoarthritis Ovarian cancer Stroke UTI (urinary tract infection) - Surgical History Surgical History: Surgical History (Last Reviewed 04/29/21 @ 18:57 by JAZLYN Singh) History of hysterectomy Total knee replacement status - Family History Family History: Family History (Last Reviewed 04/29/21 @ 18:57 by JAZLYN Singh) Sister Ovarian cancer Grandparent Liver cancer - Social History Smoking Status: Never smoker Substance Use Type: None Home Medications & Allergies Allergies No Known Allergies Allergy (Verified 04/21/21 13:21) Home Medications cetirizine 10 mg tablet (Zyrtec) 10 mg PO DAILY 04/20/21 [History Confirmed 04/28/21] irbesartan 300 mg tablet (Avapro) 300 mg PO DAILY 04/20/21 [History Confirmed 04/28/21] atorvastatin 80 mg tablet 80 mg PO QPM #0 tab 04/23/21 [Rx Confirmed 04/28/21] sennosides 8.6 mg tablet (Senna Lax) 17.2 mg PO BID #0 tab 04/23/21 [Rx Confirmed 04/28/21] buspirone 5 mg tablet 5 mg PO BID #0 tab 04/28/21 [Rx Confirmed 04/28/21] acetaminophen 500 mg tablet 500 mg PO Q8H PRN #0 tab 05/23/21 [Rx] aspirin 81 mg chewable tablet (Children's Aspirin) 81 mg PO BID 10 Days #0 tab 05/23/21 [Rx] bisacodyl 10 mg rectal suppository 10 mg DE DAILY PRN #0 ea 05/23/21 [Rx] carvedilol 6.25 mg tablet 6.25 mg PO BID.WITH.MEALS #0 tab 05/23/21 [Rx] linaclotide 145 mcg capsule (Linzess) 145 mcg PO DAILY.0730A 30 Days #0 cap 05/23/21 [Rx] lorazepam 0.5 mg tablet 0.5 mg PO BID PRN 14 Days #28 tab 05/23/21 [Rx] melatonin 5 mg tablet 10 mg PO DAILY@1999 #0 tab 05/23/21 [Rx] omeprazole 20 mg capsule,delayed release 40 mg PO DAILY.WITH.BKFAST #0 cap 05/23/21 [Rx] sucralfate 100 mg/mL oral suspension 1 g (10 mL) PO TID.AC.HS PRN #0 ml 05/23/21 [Rx] temazepam 15 mg capsule 15 mg PO DAILY@1999 30 Days #30 cap 05/23/21 [Rx] Objective - Height/Weight Height/Weight: Weight 66.678 kg - Vital Signs Vital Signs: 06/14/21 11:11 Temperature 98.0 F Pulse Rate [Left Brachial] 85 Respiratory Rate 20 Blood Pressure [Left Arm] 128/80 02 Sat by Pulse Oximetry 95 Physical Exam Narrative: The patient is wheelchair-bound. She is alert and oriented. Head and neck examnegative. Lungs audibly with good air exchange. She has a Laureano which is evident. Psychiatric exam is normal essentially. Neurological exam is grossly intact. - ECOG Performance Status ECOG Score: 3 Assessment and Plan (1) Pelvic mass Patient is 76 years old and presents after stroke and hip fracture. CT scan of the abdomen and pelvis showed a 4 cm mass near the left ovary. At this time I like to review her operative and pathological findings from [facility] where she has surgery. I reviewed the differential with the patient and daughter. At this time I want to review the operative and pathological findings and repeat the CT abdomen pelvis in 4 months. Her CA-125 is normal. The patient is recovering from her stroke and surgery. She is wheelchair-bound and in a fci. (2) Depression The patient describes depressive type symptoms. I have recommended that she seethe attending physician and review her complaints with the attending physician for therapy. I have also recommended they call the tenriism and have communion given to her as she has not had this for some time now. - Time with Patient Coordination of Care & Counseling Time: Greater than 50% of time spent with patient was for coordination of care (as documented) and [id number] counseling of patient and/or family. Dictated By: Rachid Fernandez MD DD/ [id number] Signed By: <Electronically signed by MD Rachid Fernandez> 06/14/21 7612 [facility] Work Phone: [phone]) [phone] History general Narrative - Reported* Type Description Date Medical History Rheumatoid arthritis Medical History hypertension Medical History arthritis Medical History cancer Surgical History L knee scope SBS 11/06/2006 Surgical History hysterectomy Surgical History bone spurs usama. heels Surgical History L TKA JAB 01/27/2019 [facility] [employer] Other Evaluation noteNo InformationN[facility]Co[facility] [employer] Other Evaluation note* Diagnosis Onset Date Resolution Status Compression fracture of T9 vertebra chronic Depression chronic Pelvic mass chronic S/P hip hemiarthroplasty chr onic Ischemic stroke resolved [facility] Work Phone: Evaluation note* Diagnosis Onset Date Resolution Status Bowel wall thickening chroni c Compression fracture of T9 vertebra chronic Depression chronic Non-[place]i speaking patient chronic Pelvic mass chronic S/P hip hemiarthroplasty chr onic Ischemic stroke resolved [facility] Work Phone: evaluation note* Diagnosis Onset Date Resolution Status Bowel wall thickening chroni c Compression fracture of T9 vertebra chronic Depression chronic Non-[place]i speaking patient chronic Pelvic mass chronic S/P hip hemiarthroplasty chr onic Ischemic stroke resolved Bowel wall thickening chroni c Non-[place]i speaking patient chronic Pelvic mass chronic S/P hip hemiarthroplasty chr onic Ischemic stroke resolved [facility] Work Phone: Evaluation note* Diagnosis Ischemic stroke (CMS/HCC)- Primary Paresthesia Disturbance of skin sensation Hyperlipidemia, unspecified hyperlipidemia type (CMS/HCC) Primary hypertension (CMS/HCC) Unspecified essential hypertension Gait instability Abnormality of gait 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 documented in this encounter [facility] Diagnosis Ischemic stroke (CMS/HCC)- Primary Paresthesia Disturbance of skin sensation Hyperlipidemia, unspecified hyperlipidemia type (CMS/HCC) Primary hypertension (CMS/HCC) Unspecified essential hypertension Gait instability Abnormality of gait 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 documented in this encounter [facility] Author Bonnie Hendricks [facility] January 14, 2022 12:30pm Note Date/Time January 13, 2022 2:33 pm [facility] [place] [address] Hem/Onc Follow Up Note - OP Signed Patient: Sabi Santamaria MR#: [id number] : 1945 Acct:[id number] Age/Sex: 76 / F Type: REG RCR Copies to: Merrill Doherty MD~ Subjective Date/Time of Service: Date of Service: 01/13/2022 Time of Service: 14:32 Chief Complaint: Patient is here for a follow up visit for pelvic mass and had alymph node biopsy ultrasound. She also was at [facility] for bowel obstruction and didnot have to do surgery and is doing well HPI: 01/13/2022: Sabi is accompanied by her daughter who acts as her maintenance worker swimming pool. She was hospitalized at [facility] for a bowel obstruction about 3 weeks ago. Her daughter reports that she received an NG tube but did not require any surgery and currently she does not have any abdominal pain, distention, constipation or diarrhea. She is without complaints today. She wasnoted on imaging to have possible enlargement of the left pelvic mass between April 2021 to September 2021 with some enlarged right iliac chain lymph nodes up to 2 cm in size and a large right inguinal lymph node with short axis I 0.3 cm increased in size. I recommended ultrasound-guided biopsy of the right inguinallymph node which occurred 11/09/2021 showing no evidence of metastatic cancer or lymphoma, including negative flow cytometry. She has no other concerns today and laboratories were reviewed showing improvement of prior anemia with hemoglobin to 10.4, CA 125 tumor marker was not repeated prior to visit today. Given her advanced age and absence of new symptoms with negative biopsy for malignancy, I advised her to follow-up in 4 months with CBC, CMP, CA125, and CT abdomen pelvis. She may return sooner if she has new symptomatic pain or distention. The patient and her daughter are in agreement with this plan over this moderate complexity 35-minute visit. 10/12/2021: This patient is primarily [place]-speaking and is accompanied by mary grace who acts as her maintenance worker swimming pool. She is here for transfer of care from Dr. Fernandez who has left the practice. She was hospitalized in early April 2021 for fractured right hip--s/p hemiarthroplasty 04/21/2022. Prior hysterectomy in the early at [facility], ovaries intact. During that hospital stay she had gross hematuria with negative cystoscopy, but she was found to havea 4cm left adnexal mass of uncertain etiology. Biopsy was deferred due to surgical recovery. She has been discharged home from rehab and now lives independently but has a son and daughter who live nearby and both assist in her medical care. She denies abdominal pain or bloating. No vaginal discharge. Nodysuria or current hematuria, no diarrhea or constipation. Her son was unaware of pelvic mass and I reviewed f/u 10/10/2021 CT Abdomen Pelvis which shows mild enlargement of left pelvic mass from prior imaging 04/25/2021 (now 4.2 x 3 x 4.2 cm). Also noted to have an enlarged right iliac chain lymph node with short axis dimension of 2 cm and large right inguinal lymph nodes with short axis dimensions up to 1.3 cm that have also increased in size. There is a T9 vertebral body compression fracture which was not present at time of prior exam. -- I reviewed the images and reports with patient and her son today. I recommended a PET/CT to determine if the inguinal and iliac nodes have FDG avidity and would be suitable for biopsy. This will also evaluate whether thereare potential sites of bony metastatic disease given the T9 vertebral compression and whether there is activity within the left adnexal mass. She will follow-up by phone with me this week and we will determine whether percutaneous biopsy of one of the lymph nodes can be performed. I will then follow-up with her after the biopsy to determine appropriate treatment plan. PREVIOUS ENCOUNTER: Dr. Fernandez 06/14/2021: The patient presents in follow-up today June 06, 2021. She was seen as an inpatient after a fall and a fractured hip. CT abdomen and pelvis was done which showed an enlarged roughly 4 cm mass in the area of the left ovary. It was thought this was either an enlarged ovary or a lymph node. Today in follow-up her daughter presents with her. 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 The patient had a hysterectomy at [facility]. I was told previously this was in [place]. Supposedly this was for uterine cancer. I do not know she had an oophorectomy. Below is the recent summary of findings while she was admitted after the hip fracture: Interval History: CA-125 is normal. Urology note and procedure is noted. Her CT scan is reviewedbelow: Patient: Sabi Santamaria MR#: [id number] : 1945 Acct:[id number] Age/Sex: 76 / F ADM Date: 1 Loc: 4N Room: 9D5679-6 Type: ADM IN Attending Dr: Jayden Abad MD Ordering Provider: Jose Soria MD Date of Service: 04/25/21 CT/CT abdomen pelvis wo/w con: hematuria CT abdomen and pelvis 04/25/2021. CLINICAL DATA: Hematuria. TECHNIQUE: CT of the abdomen and pelvis was performed both without and with intravenous contrast. Axial, sagittal, and coronal reconstructions were created and reviewed. This CT exam was performed using one or more of the following dosereduction techniques: Automated exposure control, adjustment of the mA and/or kVaccording to patient size, or use of iterative reconstruction technique. COMPARISON: None. FINDINGS: Images of the lower chest demonstrate a small hiatal hernia. The liver, spleen, pancreas, and both adrenal glands appear unremarkable. No renal or ureteral calculus is identified. No hydronephrosis or hydroureter is seen. There is a 1.2 cm hypoenhancing lesion in the upper pole of the right kidney. This finding is indeterminate. There is a 6.6 cm simple cyst in the interpolar region of the left kidney. There is a 0.5 cm hypodense focus in the lower pole of the left kidney. Although too small to accurately characterize, this finding probably also represents a cyst. Images of the lower abdomen and pelvis are degraded by the presence of beam hardening artifact related to postsurgical changes and numerous metallic densities. The urinary bladder is catheterized andappears unremarkable as visualized. The uterus is surgically absent. There is a 4.2 X 2.4 by 4.0 cm soft tissue mass in the pelvis on the left. Possibilities include a prominent ovary and an enlarged iliac chain lymph node. No acute intestinal abnormality is identified. The appendix is surgically absent. No freeintra-abdominal air or ascites is seen. The lower thoracic and lumbar spine demonstrate degenerative changes and curvature. There is spondylolisthesis at the lumbosacral junction. A right hip replacement is noted. CT/CT abdomen pelvis wo/w con IMPRESSION: 1. No urolithiasis or obstructive uropathy. 2. Small indeterminate right renal lesion. Ultrasound could be attempted to determine the solid or cystic nature of this finding. 3. Large and probable tiny left renal cysts. 4. Catheterized urinary bladder. 5. Soft tissue mass in the pelvis on the left, potentially a prominent ovary or an enlarged iliac chain lymph node. 6. Other findings as described. The changes seen there in the pelvis can be worked up as an outpatient and I do not think that it is the origin of her problems. The patient had a CVA and appears to have had a fall with subsequent fracture. The work-up at this time with regard to any soft tissue mass in the pelvis can be done as an outpatient. Mass itself is 4.2 cm and possibilities radiographically included a prominent ovary or enlarged lymph nodes. We could consider PET/CT as an outpatient and ifnegative, observation. If it would have increased metabolic activity we could consider biopsy and likely this would be done either laparoscopically or throughIR. At this point I will follow with you. This is a 76-year-old female who does not speak [place]i. She was found down on the floor after stroke. She has a history of a history of hysterectomy or some type of gynecologic surgery in [place] in the distant past. Her CT scan shows either a left-sided pelvic mass or left sided enlarged ovary. CA-125 is currently pending. As above she does not speak [place]i. An needle maker is not in the room. Her CT and reports are reviewed. She had a right femoral head fracture and is status post surgery. She is recovering well. ROS Details: All systems reviewed & no additional complaints except as documented Subjective/ROS - Narrative: CONSTITUTIONAL: Unchanged mild fatigue, negative for fever or night sweats. Weight decreased 10 kg since last visit September 2021, likely related to recent bowel obstruction. Patient's daughter states that she has returned to eating normal diet. HEAD AND NECK: Negative for changes in hearing and vision. Negative for mouth ulcers, nasal congestion and nasal drainage. PULMONARY: Negative for chest pain, cough and dyspnea. CARDIOVASCULAR: Negative for claudication and irregular heartbeat/palpitations. GASTROINTESTINAL: Negative for abdominal pain, constipation, decreased appetite,diarrhea, nausea or vomiting. Recent hospitalization for bowel obstruction, nonsurgical intervention with resolution of symptoms. GENITOURINARY: Negative for dysuria and hematuria. Denies pelvic pain or distention. No vaginal discharge or bleeding. ENDOCRINE: Negative for cold intolerance and heat intolerance. CENTRAL NERVOUS SYSTEM: Negative for gait disturbance and headache. No focal neurologic deficits. PSYCHIATRIC: Negative for anxiety or depression. DERMATOLOGICAL: Negative for pruritus and rash. Negative for suspicious skin lesions. MUSCULOSKELETAL: Negative for back pain and bone/joint symptoms. Ambulating in home with a walker. HEMATOLOGICAL: Negative for bleeding and easy bruising. Negative for history of transfusion or thromboembolic disease ALLERGY: Negative for environmental allergies and food allergies. [facility] - History Attestation statement: The following information was validated with the patient. Source: Old Records Reviewed - Medical History Medical History: Medical History (Last Reviewed 01/14/22 @ 12:22 by Bonnie Hendricks MD) Chronic low back pain Constipation GERD (gastroesophageal reflux disease) Hypertension Neck pain Osteoarthritis Ovarian cancer Stroke UTI (urinary tract infection) - Surgical History Surgical History: Surgical History (Last Reviewed 01/14/22 @ 12:22 by Bonnie Hendricks MD) History of hysterectomy Total knee replacement status - Family History Family History: Family History (Last Reviewed 01/14/22 @ 12:22 by Bonnie Hendricks MD) Sister Ovarian cancer Grandparent Liver cancer - Social History Smoking Status: Never smoker Substance Use Type: None Home Medications & Allergies Allergies No Known Allergies Allergy (Verified 01/13/22 14:21) Home Medications cetirizine 10 mg tablet (Zyrtec) 10 mg PO DAILY 04/20/21 [History Confirmed 11/09/21] atorvastatin 80 mg tablet 80 mg PO QPM #0 tabs 04/23/21 [Rx Confirmed 11/09/21] sennosides 8.6 mg tablet (Senna Lax) 17.2 mg PO BID #0 tabs 04/23/21 [Rx Confirmed 11/09/21] acetaminophen 500 mg tablet 500 mg PO Q8H PRN Fever Or Pain #0 tabs 05/23/21 [Rx Confirmed 11/09/21] aspirin 81 mg chewable tablet (Children's Aspirin) 81 mg PO BID 10 days #0 tabs 05/23/21 [Rx Confirmed 11/09/21] bisacodyl 10 mg rectal suppository 10 mg DE DAILY PRN Constipation #0 ea 05/23/21 [Rx Confirmed 11/09/21] carvedilol 6.25 mg tablet 6.25 mg PO BID.WITH.MEALS #0 tabs 05/23/21 [Rx Confirmed 11/09/21] melatonin 5 mg tablet 10 mg PO DAILY@2000 #0 tabs 05/23/21 [Rx Confirmed 11/09/21] omeprazole 20 mg capsule,delayed release 40 mg PO DAILY.WITH.BKFAST #0 caps 05/23/21 [Rx Confirmed 11/09/21] calcium lactate 100 mg calcium tablet 100 mg PO BID 06/14/21 [History Confirmed 11/09/21] magnesium hydroxide 400 mg/5 mL oral suspension (Milk of Magnesia) 15 ml PO BID PRN Constipation 06/14/21 [History Confirmed 11/09/21] multivitamin 1 tab PO DAILY 06/14/21 [History Confirmed 11/09/21] omega 2-ruw-vya-fish oil 1,200 mg (144 mg-216 mg) capsule (Fish Oil) 1 cap PO DAILY 06/14/21 [History Confirmed 11/09/21] polyethylene glycol 3350 17 gram oral powder packet (Miralax) 17 g PO DAILY 06/14/21 [History Confirmed 11/09/21] Objective - Height/Weight Height/Weight: Weight 58.967 kg - Vital Signs Vital Signs: 01/13/22 14:22 Temperature 96.1 F L Pulse Rate [Left Brachial] 63 Respiratory Rate 16 Blood Pressure [Left Arm] 102/68 02 Sat by Pulse Oximetry 98 Oxygen Delivery Method Room Air Physical Exam Narrative: CONSTITUTIONAL: The patient is in no acute distress. Thin but not cachectic. Daughter acts as maintenance worker swimming pool. HEAD / FACE: Normocephalic. EYES: Pupils are equal and reactive to light. No scleral icterus noted. Conjunctivae and lids are benign in appearance. Ocular movement intact. EARS: Hearing grossly intact. NOSE / MOUTH / THROAT: Nose, mouth, tongue and oropharynx are benign in appearance. No signs of inflammation. NECK / THYROID: Neck is supple. Thyroid is symmetrical, without thyromegaly, masses or palpable nodules. LYMPHATIC: No palpable cervical, supraclavicular, axillary, I cannot palpate appreciable inguinal adenopathy. RESPIRATORY: Normal to inspection. Lungs clear to auscultation and percussion. No wheezing, rales, rhonchi or rubs. Normal effort. CARDIOVASCULAR: Regular rate and rhythm. No murmurs, gallops, or rubs. VASCULAR: Carotid, radial, femoral and pedal pulses present bilaterally. No bruits. ABDOMEN: Bowel sounds normoactive. Soft, nontender and non-distended--no pelvic fullness or shifting dullness on exam. No hepatosplenomegaly. No masses. GENITOURINARY: No CVA tenderness. No suprapubic fullness or tenderness. No groinadenopathy. No evidence of hernias. INTEGUMENTARY: The skin is unremarkable. No rashes. No suspicious lesions BACK / SPINE: The back is nontender. No step-off deformity noted. MUSCULOSKELETAL: Normal musculature, no joint deformities or abnormalities, normal range of motion for all four extremities. Ambulates with walker due to prior hip fracture. EXTREMITIES: No edema, cyanosis or clubbing. No Nelly sign. NEUROLOGICAL: Alert and oriented. Cranial nerves intact. No gross motor or sensory deficits. PSYCHIATRIC: No anxiety or evidence of depression. - ECOG Performance Status ECOG Score: 2 Results - Labs Labs: Diagram of Most Recent CBC and CMP 10/12/21 12:57 10/12/21 12:57 Laboratories were not drawn prior to appointment 01/13/2022. - Impressions Ultrasound-guided core biopsy of RIGHT groin lymph node. HISTORY: White inguinal lymphadenopathy. RIGHT groin scan demonstrates multiple enlarged lymph nodes. Superficial node was localized which had a thickened cortex and has a width of 13 mm. The skin entry site prepped and draped in sterile fashion. Local lidocaine administered. 18-gauge 10 cm core biopsy device was utilized with ultrasound guidance. 3 18-gauge core samples were obtained. No immediate complications. No bleed. US/US bx lymph node IMPRESSION: Successful ultrasound-guided core biopsy of RIGHT groin lymph nodes. Impression dictated by: Rickey Rey M.D.11/09/2021 3:49 PM Assessment and Plan (1) Pelvic mass This patient is a 76 year old lady previously evaluated by Dr. Fernandez in April and May 2021 after stroke and hip fracture. CT scan of the abdomen and pelvis showed a 4 cm mass near the left ovary. This plan was to review her operative and pathological findings from [facility] where she had original hysterectomy in the . These records could not be located. --He reviewed the differential diagnosis with the patient and daughter in May 2021 and wanted to review the operative and pathological findings and repeat the CT abdomen pelvis in 4 months. Her CA-125 was normal. He deferred any biopsy at that time as the patient was still recovering from her stroke and surgery. She was wheelchair-bound and in a fci. 10/12/2021: She transferred care to me with initial visit 10/12/[address] Fernandez is no longer with the practice. She has not been seen by anybody for the pelvic mass since his initial discovery in April 2021. She does not haveany pelvic pain or distention. The patient's son who acts as her translater wasunaware that she had a pelvic mass and we discussed her CT results as well as reviewed the images today. Since she did have enlargement of right external iliac lymph node and right inguinal lymph nodes (although not palpable on exam) we will evaluate with PET/CT to see if there is FDG avidity in these areas. Based on this result I will follow-up with her daughter or son by phone to review the PET/CT results and to determine appropriate place for biopsy. In addition she has an asymptomatic T9 vertebral body compression fracture. We will determine site for biopsy and appropriate treatment at that time. 10/21/2021: I contacted patient by phone noting PET/CT showing bilateral inguinal lymph nodes with slight increase of FDG uptake. I coordinated ultrasound-guidedbiopsy. 01/13/2022: Follow-up visit delayed by hospitalization for small bowel obstruction at [facility] which resolved with NG tube and no surgical intervention. We did review the results of her fine-needle aspiration of left groin lymph node showing no evidence of metastatic disease in fragmented lymphoid tissue. No lymphoproliferative disorder on flow cytometry. We decidedin absence of current symptoms and negative biopsy that we will defer next follow-up with CBC, CMP, CA 125, and CT abdomen and pelvis to 4 months, sooner if she has new symptoms arise. Patient and daughter in agreement with this plan. This is a moderate complexity visit over 30 minutes for physical and exam and review of recent hospital stay and lymph node pathology. (2) Compression fracture of T9 vertebra Qualifiers: Encounter type: subsequent encounter Noted on prior imaging and may be related to prior fall. 10/10/2021 PET/CT did not show any increased uptake in this area suggesting pathologic compression fracture. We will reevaluate on her CT abdomen pelvis scheduled in 4 months. (3) Depression The patient previously described depressive type symptoms. She is no longer in nursing home and moved back into her home with improvement of her symptoms. She is on melatonin for sleep and is not on any current antidepressant. We willcontinue to follow with future visits. (4) S/P hip hemiarthroplasty She sustained a femoral neck fracture with right hip hemiarthroplasty by Dr. Escalante 04/22/2021. She now ambulates with her walker and has returned home from rehab. (5) Ischemic stroke Hospitalized in April 2021 for acute ischemic stroke of left thalamus, temporal occipital lobes with dysarthria, right hemiparesis, visual field deficit. Symptoms have improved but she still requires assistance in ambulationand has residual deficits. Able to ambulate in home with a walker and lives alone but close family nearby for support. - Time with Patient Time Spent with Patient (Follow Up Visit): 35 minutes - Review recent hospital stay, symptom and exam, planning for restaging labs and imaging Coordination of Care & Counseling Time: Greater than 50% of time spent with patient was for coordination of care (as documented) and [id number] counseling of patient and/or family. Dictated By: Bonnie Hendricks MD DD/ [id number] Signed By: <Electronically signed by MD Bonnie Hendricks> 01/14/22 1230 [facility] Work Phone: Progress note Author Bonnie Hendricks [facility] May 31, 2022 4:00pm Note Date/Time May 31, 2022 2:47pm [facility] [place] [address] Hem/Onc Follow Up Note - OP Signed Patient: Sabi Santamaria MR#: [id number] : 1945 Acct:[id number] Age/Sex: 77 / F Type: REG RCR Copies to: Merrill Doherty MD~ Subjective Date/Time of Service: Date of Service: 05/31/2022 Time of Service: 14:46 Chief Complaint: Patient is here today for 5 month follow up visit and go over labs and CT scan. No new concerns HPI: 05/31/2022: Sabi is here for about 4 month followup with daughter who acts as her maintenance worker swimming pool. Since last visit patient has not had any recurrence of bowelobstruction symptoms. She is eating a regular diet with no abdominal pain, nausea, bloating, constipation or diarrhea. She denies any pelvic pain and has normal urine output. She has not had any progression of adenopathy and prior ultrasound-guided biopsy of right inguinal node showed no evidence of metastaticcancer or lymphoma. She had repeat Ca1 25 which has decreased to 18.3 from prior 23.7 in September 2021. Follow-up CT abdomen pelvis results from 05/16/2022 showing stable left adnexal lesion measuring 4 x 2.8 cm which is essentially unchanged from the October 10, 2021 CT. She otherwise has a cyst of the left kidney, unremarkable right kidney, questionable thickening involving the distal rectum and anal canal. She has not had any melena or bright red blood per rectum and was previously referred to gastroenterology but we received a notice 02/02/2022 that she did not reschedule canceled appointment and they closed the referral. -- We discussed her results and in absence of new symptoms with declining tumor marker and stable findings on exam we will continue follow-up only. She is aware that if she develops new bowel symptoms that we will refer her back to gastroenterology. Otherwise she may follow-up with me in 6 months with CBC, CMP, and CA125 tumor marker. Return sooner as needed. The patient and her daughter are in agreement with this plan over this moderate complexity 35-minutevisit for review of imaging, laboratory results, and assistance with translationof patient with limited ability to speak and understand [place]i. 01/13/2022: Sabi is accompanied by her daughter who acts as her maintenance worker swimming pool. She was hospitalized at [facility] for a bowel obstruction about 3 weeks ago. Her daughter reports that she received an NG tube but did not require any surgery and currently she does not have any abdominal pain, distention, constipation or diarrhea. She is without complaints today. She wasnoted on imaging to have possible enlargement of the left pelvic mass between April 2021 to September 2021 with some enlarged right iliac chain lymph nodes up to 2 cm in size and a large right inguinal lymph node with short axis I 0.3 cm increased in size. I recommended ultrasound-guided biopsy of the right inguinallymph node which occurred 11/09/2021 showing no evidence of metastatic cancer or lymphoma, including negative flow cytometry. She has no other concerns today and laboratories were reviewed showing improvement of prior anemia with hemoglobin to 10.4, CA 125 tumor marker was not repeated prior to visit today. Given her advanced age and absence of new symptoms with negative biopsy for malignancy, I advised her to follow-up in 4 months with CBC, CMP, CA125, and CT abdomen pelvis. She may return sooner if she has new symptomatic pain or distention. The patient and her daughter are in agreement with this plan over this moderate complexity 35-minute visit. 10/12/2021: This patient is primarily [place]-speaking and is accompanied by mary grace who acts as her maintenance worker swimming pool. She is here for transfer of care from Dr. Fernandez who has left the practice. She was hospitalized in early April 2021 for fractured right hip--s/p hemiarthroplasty 04/21/2022. Prior hysterectomy in the early at [facility], ovaries intact. During that hospital stay she had gross hematuria with negative cystoscopy, but she was found to havea 4cm left adnexal mass of uncertain etiology. Biopsy was deferred due to surgical recovery. She has been discharged home from rehab and now lives independently but has a son and daughter who live nearby and both assist in her medical care. She denies abdominal pain or bloating. No vaginal discharge. Nodysuria or current hematuria, no diarrhea or constipation. Her son was unaware of pelvic mass and I reviewed f/u 10/10/2021 CT Abdomen Pelvis which shows mild enlargement of left pelvic mass from prior imaging 04/25/2021 (now 4.2 x 3 x 4.2 cm). Also noted to have an enlarged right iliac chain lymph node with short axis dimension of 2 cm and large right inguinal lymph nodes with short axis dimensions up to 1.3 cm that have also increased in size. There is a T9 vertebral body compression fracture which was not present at time of prior exam. -- I reviewed the images and reports with patient and her son today. I recommended a PET/CT to determine if the inguinal and iliac nodes have FDG avidity and would be suitable for biopsy. This will also evaluate whether thereare potential sites of bony metastatic disease given the T9 vertebral compression and whether there is activity within the left adnexal mass. She will follow-up by phone with me this week and we will determine whether percutaneous biopsy of one of the lymph nodes can be performed. I will then follow-up with her after the biopsy to determine appropriate treatment plan. PREVIOUS ENCOUNTER: Dr. Fernandez 06/14/2021: The patient presents in follow-up today June 06, 2021. She was seen as an inpatient after a fall and a fractured hip. CT abdomen and pelvis was done which showed an enlarged roughly 4 cm mass in the area of the left ovary. It was thought this was either an enlarged ovary or a lymph node. Today in follow-up her daughter presents with her. 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 The patient had a hysterectomy at [facility]. I was told previously this was in [place]. Supposedly this was for uterine cancer. I do not know she had an oophorectomy. Below is the recent summary of findings while she was admitted after the hip fracture: Interval History: CA-125 is normal. Urology note and procedure is noted. Her CT scan is reviewedbelow: Patient: Sabi Santamaria MR#: [id number] : 1945 Acct:[id number] Age/Sex: 76 / F ADM Date: 1 Loc: Room: [address] [place] [address] Type: ADM IN Attending Dr: Jayden Abad MD Ordering Provider: Jose Soria MD Date of Service: 04/25/21 CT/CT abdomen pelvis wo/w con: hematuria CT abdomen and pelvis 04/25/2021. CLINICAL DATA: Hematuria. TECHNIQUE: CT of the abdomen and pelvis was performed both without and with intravenous contrast. Axial, sagittal, and coronal reconstructions were created and reviewed. This CT exam was performed using one or more of the following dosereduction techniques: Automated exposure control, adjustment of the mA and/or kVaccording to patient size, or use of iterative reconstruction technique. COMPARISON: None. FINDINGS: Images of the lower chest demonstrate a small hiatal hernia. The liver, spleen, pancreas, and both adrenal glands appear unremarkable. No renal or ureteral calculus is identified. No hydronephrosis or hydroureter is seen. There is a 1.2 cm hypoenhancing lesion in the upper pole of the right kidney. This finding is indeterminate. There is a 6.6 cm simple cyst in the interpolar region of the left kidney. There is a 0.5 cm hypodense focus in the lower pole of the left kidney. Although too small to accurately characterize, this finding probably also represents a cyst. Images of the lower abdomen and pelvis are degraded by the presence of beam hardening artifact related to postsurgical changes and numerous metallic densities. The urinary bladder is catheterized andappears unremarkable as visualized. The uterus is surgically absent. There is a 4.2 X 2.4 by 4.0 cm soft tissue mass in the pelvis on the left. Possibilities include a prominent ovary and an enlarged iliac chain lymph node. No acute intestinal abnormality is identified. The appendix is surgically absent. No freeintra-abdominal air or ascites is seen. The lower thoracic and lumbar spine demonstrate degenerative changes and curvature. There is spondylolisthesis at the lumbosacral junction. A right hip replacement is noted. CT/CT abdomen pelvis wo/w con IMPRESSION: 1. No urolithiasis or obstructive uropathy. 2. Small indeterminate right renal lesion. Ultrasound could be attempted to determine the solid or cystic nature of this finding. 3. Large and probable tiny left renal cysts. 4. Catheterized urinary bladder. 5. Soft tissue mass in the pelvis on the left, potentially a prominent ovary or an enlarged iliac chain lymph node. 6. Other findings as described. The changes seen there in the pelvis can be worked up as an outpatient and I do not think that it is the origin of her problems. The patient had a CVA and appears to have had a fall with subsequent fracture. The work-up at this time with regard to any soft tissue mass in the pelvis can be done as an outpatient. Mass itself is 4.2 cm and possibilities radiographically included a prominent ovary or enlarged lymph nodes. We could consider PET/CT as an outpatient and ifnegative, observation. If it would have increased metabolic activity we could consider biopsy and likely this would be done either laparoscopically or throughIR. At this point I will follow with you. This is a 76-year-old female who does not speak [place]i. She was found down on the floor after stroke. She has a history of a history of hysterectomy or some type of gynecologic surgery in [place] in the distant past. Her CT scan shows either a left-sided pelvic mass or left sided enlarged ovary. CA-125 is currently pending. As above she does not speak [place]i. An needle maker is not in the room. Her CT and reports are reviewed. She had a right femoral head fracture and is status post surgery. She is recovering well. - Summary of Therapies Summary of Therapies: 1. History of a history of hysterectomy or some type of gynecologic surgery in [facility] in about 1979, ovaries intact--unclear prior pathology. She was informed of the past that she had ovarian cancer. ROS Details: All systems reviewed & no additional complaints except as documented Subjective/ROS - Narrative: CONSTITUTIONAL: Unchanged mild fatigue, negative for fever or night sweats. Weight stable from last visit in December. Previously decreased 10 kg from September toJuly 2021, likely related to hospitalization for bowel obstruction. Patient's daughter states that she has returned to eating normal diet. HEAD AND NECK: Negative for changes in hearing and vision. Negative for mouth ulcers, nasal congestion and nasal drainage. PULMONARY: Negative for chest pain, cough and dyspnea. CARDIOVASCULAR: Negative for claudication and irregular heartbeat/palpitations. GASTROINTESTINAL: Negative for abdominal pain, constipation, decreased appetite,diarrhea, nausea or vomiting. Recent hospitalization for bowel obstruction, nonsurgical intervention with resolution of symptoms. GENITOURINARY: Negative for dysuria and hematuria. Denies pelvic pain or distention. No vaginal discharge or bleeding. ENDOCRINE: Negative for cold intolerance and heat intolerance. CENTRAL NERVOUS SYSTEM: Negative for gait disturbance and headache. No focal neurologic deficits. PSYCHIATRIC: Negative for anxiety or depression. DERMATOLOGICAL: Negative for pruritus and rash. Negative for suspicious skin lesions. MUSCULOSKELETAL: Negative for back pain and bone/joint symptoms. Ambulating in home with a walker. HEMATOLOGICAL: Negative for bleeding and easy bruising. Negative for history of transfusion or thromboembolic disease ALLERGY: Negative for environmental allergies and food allergies. [facility] - History Attestation statement: The following information was validated with the patient. Source: Old Records Reviewed - Medical History Medical History: Medical History (Last Reviewed 05/31/22 @ 15:50 by Bonnie Hendricks MD) Chronic low back pain Constipation GERD (gastroesophageal reflux disease) Hypertension Neck pain Osteoarthritis Ovarian cancer Stroke UTI (urinary tract infection) - Surgical History Surgical History: Surgical History (Last Reviewed 05/31/22 @ 15:50 by Bonnie Hendricks MD) History of hysterectomy Total knee replacement status - Family History Family History: Family History (Last Reviewed 05/31/22 @ 15:50 by Bonnie Hendricks MD) Sister Ovarian cancer Grandparent Liver cancer - Social History Smoking Status: Never smoker Substance Use Type: None Home Medications & Allergies Allergies No Known Allergies Allergy (Verified 05/31/22 14:44) Home Medications cetirizine 10 mg tablet (Zyrtec) 10 mg PO DAILY 04/20/21 [History Confirmed 05/31/22] atorvastatin 80 mg tablet 80 mg PO QPM #0 tabs 04/23/21 [Rx Confirmed 05/31/22] sennosides 8.6 mg tablet (Senna Lax) 17.2 mg PO BID #0 tabs 04/23/21 [Rx Confirmed 05/31/22] acetaminophen 500 mg tablet 500 mg PO Q8H PRN Fever Or Pain #0 tabs 05/23/21 [Rx Confirmed 05/31/22] aspirin 81 mg chewable tablet (Children's Aspirin) 81 mg PO BID 10 days #0 tabs 05/23/21 [Rx Confirmed 05/31/22] bisacodyl 10 mg rectal suppository 10 mg DE DAILY PRN Constipation #0 ea 05/23/21 [Rx Confirmed 05/31/22] carvedilol 6.25 mg tablet 6.25 mg PO BID.WITH.MEALS #0 tabs 05/23/21 [Rx Confirmed 05/31/22] melatonin 5 mg tablet 10 mg PO DAILY@2000 #0 tabs 05/23/21 [Rx Confirmed 05/31/22] omeprazole 20 mg capsule,delayed release 40 mg PO DAILY.WITH.BKFAST #0 caps 05/23/21 [Rx Confirmed 05/31/22] calcium lactate 100 mg calcium tablet 100 mg PO BID 06/14/21 [History Confirmed 05/31/22] magnesium hydroxide 400 mg/5 mL oral suspension (Milk of Magnesia) 15 ml PO BID PRN Constipation 06/14/21 [History Confirmed 05/31/22] multivitamin 1 tab PO DAILY 06/14/21 [History Confirmed 05/31/22] omega 0-ynb-lit-fish oil 1,200 mg (144 mg-216 mg) capsule (Fish Oil) 1 cap PO DAILY 06/14/21 [History Confirmed 05/31/22] polyethylene glycol 3350 17 gram oral powder packet (Miralax) 17 g PO DAILY 06/14/21 [History Confirmed 05/31/22] Objective - Height/Weight Height/Weight: Weight 59 kg - Vital Signs Vital Signs: 05/31/22 14:45 Temperature 97.8 F Pulse Rate [Left Brachial] 61 Respiratory Rate 16 Blood Pressure [Left Arm] 109/67 02 Sat by Pulse Oximetry 98 Oxygen Delivery Method Room Air Physical Exam Narrative: CONSTITUTIONAL: The patient is in no acute distress. Thin but not cachectic. Daughter acts as maintenance worker swimming pool. HEAD / FACE: Normocephalic. EYES: Pupils are equal and reactive to light. No scleral icterus noted. Conjunctivae and lids are benign in appearance. Ocular movement intact. EARS: Hearing grossly intact. NOSE / MOUTH / THROAT: Nose, mouth, tongue and oropharynx are benign in appearance. No signs of inflammation. NECK / THYROID: Neck is supple. Thyroid is symmetrical, without thyromegaly, masses or palpable nodules. LYMPHATIC: No palpable cervical, supraclavicular, axillary, or inguinal adenopathy. RESPIRATORY: Normal to inspection. Lungs clear to auscultation and percussion. No wheezing, rales, rhonchi or rubs. Normal effort. CARDIOVASCULAR: Regular rate and rhythm. No murmurs, gallops, or rubs. VASCULAR: Carotid, radial, femoral and pedal pulses present bilaterally. No bruits. ABDOMEN: Bowel sounds normoactive. Soft, nontender and non-distended--no pelvic fullness or shifting dullness on exam. No hepatosplenomegaly. No masses. GENITOURINARY: No CVA tenderness. No suprapubic fullness or tenderness. No groinadenopathy. No evidence of hernias. INTEGUMENTARY: The skin is unremarkable. No rashes. No suspicious lesions BACK / SPINE: The back is nontender. No step-off deformity noted. MUSCULOSKELETAL: Normal musculature, no joint deformities or abnormalities, normal range of motion for all four extremities. Ambulates with walker due to prior hip fracture. EXTREMITIES: No edema, cyanosis or clubbing. No Nelly sign. NEUROLOGICAL: Alert and oriented. Cranial nerves intact. No gross motor or sensory deficits. PSYCHIATRIC: No anxiety or evidence of depression. - ECOG Performance Status ECOG Score: 2 Results - Labs Labs: Diagram of Most Recent CBC and CMP 05/16/22 13:47 wbc 5.2 05/16/22 13:47 05/16/2022: CA 125 18.3 - Impressions CT ABDOMEN AND PELVIS WITH INTRAVENOUS CONTRAST: CLINICAL HISTORY: Follow-up ovarian cancer. COMPARISON: CT abdomen and pelvis 10/10/2021 TECHNIQUE: Spiral images were obtained through the abdomen and pelvis followingthe administration of intravenous contrast. This CT exam was performed using one or more following dose reduction techniques: Automated exposure control, adjustment of the mA and/or kV according to patient size, or use of iterative reconstruction technique. FINDINGS: Lung Bases: Bibasilar atelectasis/scarring Organs:Liver gallbladder spleen and pancreas and adrenal glands all appear unremarkable. Cyst left kidney. Right kidney appears unremarkable. Abdominal aorta appears normal in caliber. GI: Small hiatal hernia. Distal stomach is grossly unremarkable. Small bowel appears nondilated. No acute colonic abnormality. Questionable thickening involving the distal rectum anal canal. Pelvis: Post surgical changes. Uterus has been removed. Urinary bladder is distended without focal abnormality. Left adnexal lesion measuring 4.0 x 2.8 cm similar to the prior study. Peritoneum/Retroperitoneum:No free air, free fluid or lymphadenopathy. No definite omental or peritoneal disease. Abd wall/Bones:Abdominal wall diffusely acute findings. Osseous structures demonstrate degenerative change. CT/CT abdomen pelvis w con IMPRESSION: Stable left adnexal lesion. Questionable thickening involving the distal rectum/anal canal. Correlation withdirect visualization is suggested. No obstruction is seen. Impression dictated by: Catracho Bailey Jr., D.OMarino05/16/2022 3:56 PM Assessment and Plan (1) Pelvic mass This patient is a 77 year old lady previously evaluated by Dr. Fernandez in April and May 2021 after stroke and hip fracture. CT scan of the abdomen and pelvis showed a 4 cm mass near the left ovary. This plan was to review her operative and pathological findings from [facility] where she had original hysterectomy in the . These records could not be located. --He reviewed the differential diagnosis with the patient and daughter in May 2021 and wanted to review the operative and pathological findings and repeat the CT abdomen pelvis in 4 months. Her CA-125 was normal. He deferred any biopsy at that time as the patient was still recovering from her stroke and surgery. She was wheelchair-bound and in a fci. 10/12/2021: She transferred care to me with initial visit 10/12/[address] Fernandez is no longer with the practice. She has not been seen by anybody for the pelvic mass since his initial discovery in April 2021. She does not have anypelvic pain or distention. The patient's son who acts as her translater was unaware that she had a pelvic mass and we discussed her CT results as well as reviewed the images today. Since she did have enlargement of right external iliac lymph node and right inguinal lymph nodes (although not palpable on exam) we will evaluate with PET/CT to see if there is FDG avidity in these areas. Based on this result I will follow-up with her daughter or son by phone to review the PET/CT results and to determine appropriate place for biopsy. In addition she has an asymptomatic T9 vertebral body compression fracture. We willdetermine site for biopsy and appropriate treatment at that time. 10/21/2021: I contacted patient by phone noting PET/CT showing bilateral inguinal lymph nodes with slight increase of FDG uptake. I coordinated ultrasound-guidedbiopsy. 01/13/2022: Follow-up visit delayed by hospitalization for small bowel obstruction at [facility] which resolved with NG tube and no surgical intervention. We did review the results of her fine-needle aspiration of left groin lymph node showing no evidence of metastatic disease in fragmented lymphoid tissue. No lymphoproliferative disorder on flow cytometry. We decidedin absence of current symptoms and negative biopsy that we will defer next follow-up with CBC, CMP, CA 125, and CT abdomen and pelvis to 4 months, sooner if she has new symptoms arise. Patient and daughter in agreement with this plan. 05/31/2022: Kelly Oneil presents with her [id number] for follow-up. She no longer has any abdominal pain or distention and is eating a normal diet with no further episodes of small bowel obstruction. She does not have any detectable adenopathy by exam or by restaging 05/16/2022 CT abdomen and pelvis reviewed with the patient and her [id number]-hzw today. She has unchanged cyst of the left kidney. She has no evidence of bowel obstruction although there is questionable thickening involving the distal rectum and anal canal. She was previously referred to gastroenterology but did not show up for the appointment. In the absence of symptoms we will defer colonoscopy and repeat imaging in 6 months. The left adnexal lesion identified on previous imaging in September 2021 isstable in size. She has no evidence of free air, free fluid, or lymphadenopathyof the peritoneum and no evidence of omental or peritoneal disease. -- Recommendation is to proceed with surveillance every 6 months with CBC, CMP, and CA125. We will also repeat her abdominal pelvic imaging with contrast in 6 months, sooner if she has new symptoms of pain, distention, bowel obstruction, or change in bowel or bladder function. We also will see her sooner if she develops clinical adenopathy. The patient and her [id number] are in agreement with this plan over this 35-minute follow-up visit. (2) Compression fracture of T9 vertebra Qualifiers: Encounter type: subsequent encounter Noted on prior imaging and may be related to prior fall. 10/10/2021 PET/CT did not show any increased uptake in this area suggesting pathologic compression fracture. No comment regarding prior vertebral compression fracture fracture noted on September imaging--this appears relatively stable from my review of her imaging and she does not have any associated pain in this area. (3) Depression The patient previously described depressive type symptoms. She is no longer in nursing home and moved back into her home with improvement of her symptoms. She is on melatonin for sleep and is not on any current antidepressant. We willcontinue to follow with future visits. (4) S/P hip hemiarthroplasty She sustained a femoral neck fracture with right hip hemiarthroplasty by Dr. Escalante 04/22/2021. She now ambulates with her walker and has returned home from rehab. (5) Ischemic stroke Hospitalized in April 2021 for acute ischemic stroke of left thalamus, temporal occipital lobes with dysarthria, right hemiparesis, visual field deficit. Symptoms have improved but she still requires assistance in ambulation and has residual deficits. Able to ambulate in home with a walker and lives alone but close family nearby for support. (6) Bowel wall thickening Patient is noted on imaging studies to have thickening of the distal rectum/analcanal. Was scheduled for GI evaluation and did not show to appointment. She did have a hospitalization for bowel obstruction but has no obstructive symptoms, melena, or hematochezia. For now we will follow with symptoms and serial imaging. (7) Non-[place] speaking patient Patient expressed understanding and was able to give review of systems with limited [place]i. Different family members served as translators and if we environmental change analyst we will obtain a translation service for her follow-up appointments. - Time with Patient Time Spent with Patient (Follow Up Visit): 35 minutes - Review restaging images and reports, repeat Ca 125, symptoms and exam, surveillance plan Coordination of Care & Counseling Time: Greater than 50% of time spent with patient was for coordination of care (as documented) and [id number] counseling of patient and/or family. Dictated By: Bonnie Hendricks MD DD/ [id number] Signed By: <Electronically signed by MD Bonnie Hendrikcs> 05/31/22 [address] [facility] Work Phone: Summary Purpose Family History Relationship Condition Age at Onset Recorded Date/T jorge luis sister Malignant neoplasm of ovary Unknown grandparent Malignant neoplasm of liver Unknown Relationship Condition Age at Onset Recorded Date/T jorge luis sister Malignant neoplasm of ovary Unknown grandparent Malignant neoplasm of liver Unknown mother Heart disease Unknown Advance Directives Advance Directive Response Recorded Date/ Time Advance Directives No April 20, 2021 5:10pm Advance Directive Response Recorded Date/ Time Advance Directives No April 20, 2021 4:10pm Chief Complaint and Reason for Visit Chief Complaint PET SCAN F/U Reason for Visit Compression fracture of T9 vertebra Depression Pelvic mass S/P hip hemiarthroplasty Ischemic stroke Chief Complaint PET SCAN F/U Reason for Visit Bowel wall thickenin g Compression fracture of T9 vertebra Depression Non-Ku[place]i speaking patient Pelvic mass S/P hip hemiarthroplasty Ischemic stroke Chief Complaint PET SCAN F/U Reason for Visit Bowel wall thickenin g Compression fracture of T9 vertebra Depression Non-Kuwaiti speaking patient Pelvic mass S/P hip hemiarthroplasty Ischemic stroke Bowel wall thickening Non-Kuwaiti speaking patient Pelvic mass S/P hip hemiarthroplasty Ischemic stroke Reason for Referral Specialty Diagnoses / Procedures Referred By Garrett t Referred To Contact Radiology Diagnoses Ischemic stroke (CMS/HCC) Procedures Vascular US carotid artery duplex bilateral Debra Walters, SHANT [address] [place] [id number] Referral ID Status Reason Start Date Expiration Date V isits Requested Visits Authorized [id number] Authorized 02/27/2024 08/25/2024 1 1 Additional Source Comments INFORMATION SOURCE (unrecogn ized section and content) DATE CREATED AUTHOR [facility]/11/2021 [facility] DATE CREATED AUTHOR AUTHOR'S ORGANIZ ATION 01/19/2022 [facility] DATE CREATED AUTHOR AUTHOR'S ORGANIZ ATION 09/20/2022 [facility] DATE CREATED AUTHOR AUTHOR'S ORGANIZ ATION 12/16/[address] [facility] DATE CREATED AUTHOR AUTHOR'S ORGANIZ ATION 05/01/2024 [facility] EPIC REASON FOR VISIT (unrecogniz ed section and content) Reason Comments Follow-up Reason Comments Tingling History of stroke Care Teams (unrecognized sec tion and content) Team Status: Active Member Role Status Dates Merrill Doherty MD Primary Care Provider Active Team Status: Active Member Role Status Dates Merrill Doherty MD Primary Care Provider Active Rachid Fernandez MD Active Bonnie Hendricks MD Attending Provider Active Team Status: Active Member Role Status Dates Merrill Doherty MD Primary Care Provider Active Start: December 13, 2023 Rachid Fernandez MD Active Start: 2023 Bonnie Hendricks MD Attending Provider Active Start: December 13, 2023 Team Status: Inactive Member Role Status Dates Merrill Doherty MD Primary Care Provider Active Start: December 13, 2023 End: December 13, 2023 Bonnie Hendricks MD Attending Provider Active Start: December 13, 2023 End: December 13, 2023 Goals (unrecognized section and content) Goals may be documented in a n alternate section FOR RECORDS PERTAINING TO PATIENTS WHO ARE OR HAVE BEEN ENROLLED IN A CHEMICAL DEPENDENCY/SUBSTANCEABUSE PROGRAM, SOME INFORMATION MAY BE OMITTED. This clinical summary was aggregated from multiple sources. Caution should be exercised in using it in the provision of clinical care. This summary normalizes information from multiple sources, and as a consequence, information in this document may materially change the coding, format and clinical context of patient data. In addition, data may be omitted in some cases. CLINICAL DECISIONS SHOULD BE BASED ON THE PRIMARY CLINICAL RECORDS. [employer] provides no warranty or guarantee of the accuracy or completeness of information in this document.
--- NOTE | 2024-07-08 13:33 | CT_ITS ---
The [address] [address] Patient Name: SABI SANTAMARIA MRN: [id number] date: 1945 Sex: F Assigned Patient Location: ER Current Patient Location: Accession/Order Number: [id number] Exam Date: 07/08/2024 13:58 Report Date: 07/08/2024 14:27 At the request of: YADIRA LUA Procedure: CT cervical spine wo con EXAMINATION: CT cervical spine wo con HISTORY: Fall COMPARISON: No relevant comparison available. TECHNIQUE: Axial, Coronal, and Sagittal images were created without IV contrast. Dose reduction techniques were achieved by using automated exposure control and/or adjustment of mA and/or kV according to patient size and/or use of iterative reconstruction technique. FINDINGS: VERTEBRAL BODIES: Degenerative changes versus remote fracture and healing at base of dens of C2. Normal height and alignment of the vertebral bodies. FACET JOINTS: Moderate-marked degenerative facet arthropathy C2-C3, C3-4, C4-5 on the left. Mild degenerative facet arthropathy throughout rest of cervical spine. No disruption or abnormal widening. DISCS: Mild-moderate narrowing C3-4 and C6-7. Uncovertebral joint spurring and small posterior disc osteophyte complexes cause mild central canal and foraminal narrowing, with suspected marked narrowing at C6-7 on the left. CENTRAL CANAL: No evidence of hemorrhage. PARASPINAL AREA: No visible mass. CT/CT cervical spine wo con IMPRESSION: 1. Degenerative changes of the cervical spine. 2. No appreciable acute abnormality. Electronically authenticated by: DION SNOWDEN Date: 07/08/2024 14:27
--- NOTE | 2024-07-08 13:33 | ECG_ITS ---
The [facility] Test Date: 2024-07-08 Pat Name: SABI SANTAMARIA Department: Room: - Gender: Female Intern: : 1945 Requested By: MERRILL BLEDSOE Order Number: [id number] Reading MD: MEHRDAD COLIN Measurements Intervals [place] Rate: 103 P: 12 MA: 154 QRS: 22 QRSD: 74 T: 37 QT: 316 QTc: 376 Interpretive Statements 1120 Sinus tachycardia 3434 Septal myocardial infarction, age undetermined 8102 Low QRS voltage in chest leads 9150 abnormal ECG Compared to ECG 04/05/2023 18:24:52 Myocardial infarct finding now present Low QRS voltage now present Electronically Signed On 07-09-2024 17:38:29 EST by MEHRDAD COLIN
--- NOTE | 2024-07-08 13:33 | XR_ITS ---
The [address] [address] Patient Name: SABI SANTAMARIA MRN: [id number] date: 1945 Sex: F Assigned Patient Location: ER Current Patient Location: ER Accession/Order Number: [id number] Exam Date: 07/08/2024 13:58 Report Date: 07/08/2024 14:28 At the request of: YADIRA LUA Procedure: XR chest 1V EXAMINATION: XR chest 1V HISTORY: Altered mental status COMPARISON: No relevant comparison available. FINDINGS: LUNGS: Underexpanded lungs with elevation of the diaphragm bilaterally. VASCULATURE: No increased pulmonary vasculature. PLEURA: No pneumothorax, effusion, or pleural thickening. CARDIAC: No cardiomegaly or cardiac silhouette abnormality. MEDIASTINUM: No visible mass or adenopathy. BONES: No fracture or visible bone lesion. OTHER: Negative. XR/XR chest 1V IMPRESSION: 1. Low lung volume examination with trace amount of bibasilar atelectasis or possibly infiltrates. 2. No appreciable acute bone abnormality. Electronically authenticated by: DION SNOWDEN Date: 07/08/2024 14:28
--- NOTE | 2024-07-08 13:34 | CT_ITS ---
The [address] [address] Patient Name: SABI SANTAMARIA MRN: [id number] date: 1945 Sex: F Assigned Patient Location: ER Current Patient Location: Accession/Order Number: [id number] Exam Date: 07/08/2024 13:58 Report Date: 07/08/2024 14:22 At the request of: YADIRA LUA Procedure: CT head/brain wo con EXAMINATION: CT head/brain wo con HISTORY: Fall, altered mental status COMPARISON: CT head 01/04/2023 TECHNIQUE: Axial CT images were obtained without IV contrast. Dose reduction techniques were achieved by using automated exposure control and/or adjustment of mA and/or kV according to patient size and/or use of iterative reconstruction technique. FINDINGS: BRAIN: Stable, old lacunar infarction within left basal ganglia. No edema, hemorrhage, mass, acute infarction, or inappropriate atrophy. CSF SPACES: No hydrocephalus, subarachnoid hemorrhage, or mass. Appropriate for age. SKULL: No fracture, mass, or other significant visible lesion. SINUSES: No significant mucosal thickening or fluid on the limited views. ORBITS: No appreciable abnormality on the limited views. OTHER: Negative CT/CT head/brain wo con IMPRESSION: 1. No intracranial hemorrhage or appreciable acute abnormality. 2. Stable old lacunar infarction within left basal ganglia. 3. Grossly stable mild age-related chronic changes. Electronically authenticated by: DION SNOWDEN Date: 07/08/2024 14:22
--- NOTE | 2024-07-08 13:35 | ED.GENADUL1 ---
HPI HPI - General Adult General Chief complaint: Fall Stated complaint: FALL -TODAY Time Seen by Provider: 07/08/24 13:19 Source: family Mode of arrival: Wheelchair Limitations: language barrier and physical limitation History of Present Illness HPI narrative: Patient is a 79-year-old female who is primarily [place]-speaking brought to the emergency department by her daughter for evaluation of a fall that occurred about 5 hours ago in their home. Patient was pushing a pullout bed when she lost her balance and fell on her left side. Daughter assists with translation for the history, she states that the patient denied hitting her head or having a loss of consciousness. She was unable to get herself to a standing position and laid on the floor for about 45 minutes until her son was able to help her. She denied any injuries and seemed to be fine at the time. Daughter presents to the ER now concerned that the patient seems dizzy although the patient denies dizziness, shortness of breath or chest pain. She states she had a banana earlier today but has not had any recent illness and was going to have lunch when she fell. She has a history of arthritis. Patient is awake, alert, able to answer all questions at time of initial interview, however the patient's daughter states that she seems not like herself . Patient reports mild pain to the neck. She takes an aspirin daily, no blood thinners. Related Data Home Medications ?Medication ?Instructions ?Recorded ?Confirmed aspirin 81 mg chewable tablet 1 tab PO DAILY 01/04/23 07/08/24 (Aspirin Childrens) atorvastatin 80 mg tablet 80 mg PO DAILY 01/04/23 07/08/24 cetirizine 10 mg tablet (24Hour 10 mg PO DAILY PRN allergy symptoms 01/04/23 07/08/24 Allergy) melatonin 5 mg tablet 5 mg PO .HS PRN sleep 01/04/23 07/08/24 carvedilol 6.25 mg tablet 6.25 mg PO BID 07/08/24 07/08/24 diclofenac sodium 75 mg 75 mg PO Q12H PRN pain 07/08/24 07/08/24 tablet,delayed release lactulose 10 gram/15 mL oral 30 ml PO BID PRN constipation 07/08/24 07/08/24 solution Previous Rx's ?Medication ?Instructions ?Recorded albuterol sulfate 90 mcg/actuation 2 puff inhalation Q4H PRN Dyspnea 01/07/23 aerosol inhaler #8.5 grams Allergies Allergy/AdvReac Type Severity Reaction Status Date / Time No Known Drug Allergies Allergy Verified 07/08/24 13:23 Opioid HPI Opioid Management Most Recent Opioid Data: Last Pain Scale 6 04/06/23 15:00 04/06/23 Review of Systems ROS Constitutional Denies: fever or chills Eyes Denies: change in vision Ears, nose, mouth, and throat Denies: nasal congestion Cardiovascular Denies: chest pain Respiratory Denies: shortness of breath or cough Gastrointestinal Denies: nausea or vomiting Musculoskeletal Reports: neck pain; Denies: back pain or extremity pain Integumentary/Breast Denies: rash Neurological Denies: headache, numbness in extremities or weakness in extremities Hematologic/Lymphatic Denies: easy bruising or easy bleeding [facility] Medical History Surgical History (Updated 01/04/23 @ 13:49 by Jillian Ford) H/O: hysterectomy ?Z90.710 - 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 Diffuse tenderness of the posterior cervical spine Respiratory: No respiratory distress, lungs clear bilaterally Cardio: Regular rate and rhythm Gastrointestinal: Abdomen is soft, nondistended and nontender to palpation, pelvis is stable and hips are nontender Extremities: Moves extremities equally, no injuries noted Psych: Normal mood and affect Neuro: No focal neuro deficit Skin: Warm, dry, intact Constitutional Vital Signs, click to edit/add: Last Vital Signs Temp 98.5 F 07/08/24 13:19 Pulse 87 07/08/24 16:00 Resp 19 07/08/24 16:00 BP 108/69 07/08/24 16:00 Pulse Ox 97 07/08/24 16:00 O2 Del Method Room Air 07/08/24 13:19 Course Vital Signs Vital signs: Vital Signs Temperature 98.5 F 07/08/24 13:19 Pulse Rate 105 H 07/08/24 13:19 Respiratory Rate 18 07/08/24 13:19 Blood Pressure 142/89 H 07/08/24 13:19 Pulse Oximetry 95 07/08/24 13:19 Oxygen Delivery Method Room Air 07/08/24 13:19 Temperature 98.5 F 07/08/24 13:19 Pulse Rate 87 07/08/24 16:00 Respiratory Rate 19 07/08/24 16:00 Blood Pressure 108/69 07/08/24 16:00 Pulse Oximetry 97 07/08/24 16:00 Oxygen Delivery Method Room Air 07/08/24 13:19 Medical Decision Making MDM Narrative Medical decision making narrative: Patient was treated with Tylenol, she rested comfortably with stable vital signs and normal cardiac monitoring in the ER. Her daughter is concerned that she is not herself and seems disoriented so a full workup was ordered including IV, blood work, EKG and urine specimen. Patient was found to have a mild UTI, she was also found to have a significantly elevated troponin. The troponin was repeated and continues to elevate slightly. Patient has no complaints of chest pain or shortness of breath in the ER. CT of the brain, chest x-ray, CT of the cervical spine are unremarkable. Case is discussed with cardiology, Dr. Schumacher who recommended admitting the patient to this facility, trend troponins. At this time she does not need an emergent transfer to tertiary care. She was treated with Rocephin for UTI. She is admitted to hospitalist service for Dr. Doherty, andrea at this time. SUPERVISED APC VISIT, PHYSICIAN ATTESTATION: Based on the medical record the care appears appropriate. ? Medical Records Medical records reviewed: Yes I reviewed the patient's medical records Lab Data Lab results reviewed: Yes I reviewed the patient's lab results Labs: Lab Results 07/08/24 07/08/24 07/08/24 Range/Units 13:50 14:52 15:40 WBC 12.9 H (4.0-11.0) 10^3/uL RBC 4.51 (4.20-5.40) 10^6/uL Hgb 13.1 (12.0-16.0) g/dL Hct 40.0 (36.0-48.0) % MCV 88.7 (81.0-99.0) fL MCH 29.0 (26.7-34.0) pg MCHC 32.8 (29.9-35.2) g/dL RDW 14.5 (11.0-15.0) % Plt Count 300 (150-450) 10^3/uL MPV 8.8 L (9.5-13.5) fL Neut % (Auto) 86.3 H (43.0-75.0) % Lymph % (Auto) 7.5 L (20.5-60.0) % [place] % (Auto) 5.7 (1.7-12.0) % Eos % (Auto) 0.0 L (0.9-7.0) % Baso % (Auto) 0.2 (0.2-2.0) % Neut # (Auto) 11.1 H (1.4-6.5) 10^3/uL Lymph # (Auto) 1.0 L (1.2-3.8) 10^3/uL [place] # (Auto) 0.7 (0.3-0.8) 10^3/uL Eos # (Auto) 0.0 (0.0-0.7) 10^3/uL Baso # (Auto) 0.0 (0.0-0.1) 10^3/uL Abs Immat Gran (auto) 0.04 H (0.00-0.03) 10^3/uL Imm/Tot Granulo (auto) 0.3 (0.0-0.5) % PT 12.0 H (9.0-11.6) sec INR 1.15 Sodium 136 (136-145) mmol/L Potassium 4.0 (3.5-5.1) mmol/L Chloride 99 (98-107) mmol/L Carbon Dioxide 26.0 (21.0-32.0) mmol/L Anion Gap 15.0 BUN 17.0 (7.0-18.0) mg/dL Creatinine 0.90 (0.55-1.02) mg/dL Est GFR ( Amer) >60 (>=60 mL/min/1.73m^2) Est GFR (Non-Af Amer) >60 (>=60 mL/min/1.73m^2) BUN/Creatinine Ratio 18.9 Glucose 125 H (74-106) mg/dL Lactate 1.3 (0.4-2.0) mmol/L Calcium 9.2 (8.5-10.1) mg/dL Total Bilirubin 1.2 H (0.2-1.0) mg/dL AST 28 (15-37) U/L ALT 19 (14-59) U/L Alkaline Phosphatase 127 H (46-116) U/L Total Creatine Kinase 155 (26-192) U/L Troponin I High Sens 283.4 H* 295.6 H* (4.0-51.3) pg/mL NT-Pro-B Natriuret Pep 856.0 (<=1800.0) pg/mL Total Protein 8.2 (6.4-8.2) g/dL Albumin 3.4 (3.4-5.0) g/dL Globulin 4.8 g/dL Albumin/Globulin Ratio 0.7 TSH 0.796 (0.358-3.740) uIU/mL Urine Color Lt. yellow (YELLOW) Urine Clarity Sl cloudy (CLEAR) Urine pH 7.0 (5.0-9.0) Ur Specific [place] 1.010 (1.005-1.025) Urine Protein Trace (NEG/TRACE) mg/dL Urine Glucose (UA) Negative (NEGATIVE) mg/dL Urine Ketones Negative (NEGATIVE) mg/dL Urine Occult Blood Moderate A (NEGATIVE) Urine Nitrite Negative (NEGATIVE) Urine Bilirubin Negative (NEGATIVE) Urine Urobilinogen 0.2 (0.2-1.0) EU/dL Ur Leukocyte Esterase Small A (NEGATIVE) Urine RBC 5-10 A (0-2) #/HPF Urine WBC 5-10 A (NONE SEEN) #/HPF Ur Squamous Epith Cells Few A (NONE/RARE) #/LPF Urine Crystals None seen (None Seen) #/HPF Urine Bacteria Small A (NONE SEEN) #/HPF Urine Casts Seen A (NONE SEEN) #/LPF Hyaline Casts Rare Urine Mucus None seen (NONE SEEN) Ur Culture Indicated? Yes Imaging Data CT scan - head: Attestation: I have reviewed the pertinent imaging results. Radiologist's impression: ITS Impressions Cervical Spine CT 07/08/24 13:33 IMPRESSION: 1. Degenerative changes of the cervical spine. 2. No appreciable acute abnormality. Electronically authenticated by: DION SNOWDEN Date: 07/08/2024 14:27 Chest X-Ray 07/08/24 13:33 IMPRESSION: 1. Low lung volume examination with trace amount of bibasilar atelectasis or possibly infiltrates. 2. No appreciable acute bone abnormality. Electronically authenticated by: DION SNOWDEN Date: 07/08/2024 14:[address] 07/08/24 13:34 IMPRESSION: 1. No intracranial hemorrhage or appreciable acute abnormality. 2. Stable old lacunar infarction within left basal ganglia. 3. Grossly stable mild age-related chronic changes. Electronically authenticated by: DION SNOWDEN Date: 07/08/2024 14:22 ECG Data Attestation: I personally reviewed and interpreted this ECG as follows: (Sinus tachycardia at a rate of 103, no acute ST elevation or ectopy. EKG reviewed by attending physician) Discharge Plan Discharge Chief Complaint: Fall Patient Disposition: Admitted as Observation Time of Disposition Decision: 16:45 Prescriptions / Home Meds: No Action melatonin 5 mg tablet 5 mg PO .HS PRN (Reason: sleep) aspirin [Aspirin Childrens] 81 mg tablet,chewable 1 tab PO DAILY atorvastatin 80 mg tablet 80 mg PO DAILY cetirizine [24Hour Allergy] 10 mg tablet 10 mg PO DAILY PRN (Reason: allergy symptoms) albuterol sulfate 90 mcg/actuation Hfa Aerosol Inhaler 2 puff inhalation Q4H PRN (Reason: Dyspnea) Qty: 8.5 0RF Patient Comments: son does not know if she has this carvedilol 6.25 mg tablet 6.25 mg PO BID diclofenac sodium 75 mg tablet,delayed release (DR/EC) 75 mg PO Q12H PRN (Reason: pain) lactulose 10 gram/15 mL solution 30 ml PO BID PRN (Reason: constipation) Print Language: [place] Referrals: Willi Doherty MD [Primary Care Provider] - 1 week
[2024-07-08 13:59] LABS: Basophils Percent Auto 0.2 % (0.2-2.0); Hemoglobin 13.1 g/dL (12.0-16.0); Immature Granulocytes Abs Auto 0.04 10^3/uL (0.00-0.03); Immature Granulocytes Pct Auto 0.3 % (0.0-0.5); Lymphocytes Percent Auto 7.5 % (20.5-60.0); Mean Corpuscular HGB Conc 32.8 g/dL (29.9-35.2); Mean Corpuscular Volume 88.7 fL (81.0-99.0); Mean Platelet Volume 8.8 fL (9.5-13.5); Monocytes Absolute Auto 0.7 10^3/uL (0.3-0.8); Monocytes Percent Auto 5.7 % (1.7-12.0); Neutrophils Absolute Auto 11.1 10^3/uL (1.4-6.5); Neutrophils Percent Auto 86.3 % (43.0-75.0); Platelet Count 300 10^3/uL (150-450); Red Blood Count 4.51 10^6/uL (4.20-5.40); Red Cell Distribution Width 14.5 % (11.0-15.0); White Blood Count 12.9 10^3/uL (4.0-11.0)
[2024-07-08 14:12] LABS: INR 1.15
[2024-07-08] MEDS: ACETAMINOPHEN 325 MG TABLET 650 MG PO (14:13)
[2024-07-08 14:25] LABS: Creatine Kinase 155 U/L (26-192)
[2024-07-08 14:27] LABS: Alanine Aminotransferase 19 U/L (14-59); Albumin Globulin Ratio 0.7; Albumin Level 3.4 g/dL (3.4-5.0); Alkaline Phosphatase 127 U/L (46-116); Aspartate Amino Transferase 28 U/L (15-37); BUN Creatinine Ratio 18.9; Bilirubin Total 1.2 mg/dL (0.2-1.0); Calcium 9.2 mg/dL (8.5-10.1); Chloride 99 mmol/L (98-107); Estimated GFR (African America >60 (>=60 mL/min/1.73m^2); Estimated GFR (Non-African Ame >60 (>=60 mL/min/1.73m^2); Globulin 4.8 g/dL; Glucose 125 mg/dL (74-106); Sodium 136 mmol/L (136-145); Total Protein 8.2 g/dL (6.4-8.2)
[2024-07-08 14:29] LABS: Lactate/Lactic Acid 1.3 mmol/L (0.4-2.0)
[2024-07-08 14:36] LABS: Thyroid Stimulating Hormone 0.796 uIU/mL (0.358-3.740)
[2024-07-08 14:38] LABS: Troponin I High Sensitivity 283.4 pg/mL (4.0-51.3)
[2024-07-08 15:17] LABS: Bilirubin Urine NEGATIVE (NEGATIVE); Blood Urine MODERATE (NEGATIVE); Clarity Urine SL CLOUDY (CLEAR); Color Urine LT. YELLOW (YELLOW); Glucose Urine UA NEGATIVE (NEGATIVE); Ketones Urine NEGATIVE (NEGATIVE); Leukocyte Esterase Urine SMALL (NEGATIVE); Nitrite Urine NEGATIVE (NEGATIVE); Protein Urine TRACE mg/dL (NEG/TRACE); Urobilinogen Urine 0.2 EU/dL (0.2-1.0)
[2024-07-08 15:31] LABS: Bacteria Urine SMALL #/HPF (NONE SEEN); Cast Seen? SEEN #/LPF (NONE SEEN); Crystals Seen? None Seen #/HPF (None Seen); Hyaline Casts Urine RARE; Mucus Urine NONE SEEN (NONE SEEN); Squamous Epithelial Cell Urine FEW #/LPF (NONE/RARE); Urine Culture Indicated YES
[2024-07-08 16:21] LABS: Troponin I High Sensitivity 295.6 pg/mL (4.0-51.3)
[2024-07-08] MEDS: CEFTRIAXONE 1,000 MG in 0.9 % SODIUM CHLORIDE 50 ML 100 MG IV (16:55)
--- OUTSIDE RECORDS SUMMARY | 2024-07-08 17:36 | XMS_ITS | CCD ---
Author Organization [facility] Care Team Providers Care Behavior Therapist Name Role Phone Getachew Escalante Unavailable OBINNA GARRETT Referring Unavailable MERRILL DOHERTY Primary Care Unavailable MINESH DALY Attending Unavailable MINESH DALY Admitting Unavailable MD Merrill Doherty Primary Care Provider [phone] MD Bonnie Hendricks Attending Provider MD Merrill Doherty Primary Care Provider [phone] MD Bonnie Hendricks Attending Provider DR OBINNA [...] Unavailable MD Merrill Doherty Primary Care Provider [phone] MD Bonnie Hendricks Attending Provider [phone] MD Merrill Doherty Primary Care Provider [phone] MD Bonnie Hendricks Attending Provider [phone] MD Merrill Doherty Primary Care Provider [phone] MD Bonnie Hendricks Attending Provider [phone] Merrill Doherty Primary Care Unavailable Bonnie Hendricks Attending Unavailable Bonnie Hendricks Admitting Unavailable DEBRA WALTERS Attending Unavailable DEBRA WALTERS Referring Unavailable DEBRA WALTESR Attending Unavailable Unavailable Primary Care Provider Unavailabl [...] 05-23-2021 End: 12-14-2022 Bisacodyl Discontinued 10 MG MA Daily 0 May 23, 2021 1:00am December [...] PC PRN for 30 day(s) October, Not-Taking [place] 7-Vow-Egm-Fish Oil (Fish Oil) 1,200 (144-216) mg Capsule (5 sources) Start: 06-14-2021 End: 06-14-2023 take 1 capsule by mouth once daily [place] 5-Cqh-Cva-Fish Oil (Fish Oil) 1,200 (144-216) mg Capsule Discontinued 1 CAP PO Daily June 14, 2021 1:00am June 14, 2023 4:01pm Start: 06-14-2021 End: 06-14-2023 take 1 capsule by mouth once daily [place] 7-Yhx-Jcl-Fish Oil (Fish Oil) 1,200 (144-216) mg Capsule Discontinued 1 CAP PO Daily June 14, 2021 12:00am June 14, 2023 3:01pm Start: 06-14-2021 take 1 capsule by mo ut once daily [place] 7-Qrv-Bfj-Fish Oil (Fish Oil) 1,200 (144-216) mg Capsule Active 1 CAP PO Daily June 14, 2021 12:00am Start: 06-14-2021 take 1 capsule by mo [facility] once daily [place] 2-Fhx-Cal-Fish Oil (Fish Oil) 1,200 (144-216) mg Capsule [...] May 23, 2021 3:52pm polyethylene glycol 3350 90067 mg powder for oral solution (5 sources) [...] 06-14-2021 Chronic Other aftercare (1 source) Other correction (current) drug therapy; Translations: [OTH [facility] CURRENT DRUG THERAPY] Onset: 09-19-2022 Episodic Other aftercare (1 source) 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; 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] Onset: 09-19-2022 Episodic [...] 12-10-2023 ALT [Catalytic activity/Vol] 18 U/L 7-52 [facility] Albumin [Mass/volume] in Ser um or Plasma by Bromocresol green (BCG) dye binding methoOrdered By: Nara Bowman on 12-10-2023 Albumin BCG dye [Mass/Vol] 3.9 g/dL 3.5-5.7 [facility] Alkaline phosphatase [Enzyma tic activity/volume] in Serum or PlasmaOrdered By: Nara Bowman on 12-10-2023 ALP [Catalytic activity/Vol] 107 U/L High 34-104 [facility] Aspartate aminotransferase [ Enzymatic activity/volume] in Serum or PlasmaOrdered By: Nara Bowman on 12-10-2023 AST [Catalytic activity/Vol] 28 U/L 13-39 [facility] Basophils Auto (Bld) [#/Vol] Ordered By: Naar Bowman on 12-10-2023 Basophils (Bld) [#/Vol] 0.0 10*3/uL 0.0-0.2 [facility] Basophils/100 WBC Auto (Bld) Ordered By: Naar Bowman on 12-10-2023 Basophils/100 WBC (Bld) 0.6 % . [facility] Bilirubin.total [Mass/volume ] in Serum or PlasmaOrdered By: Nara Bowman on 12-10-2023 Bilirubin [Mass/Vol] 1.0 mg/dL 0.3-1.0 [facility] CT abdomen pelvis w conon CT abdomen pelvis w con [facility] Main [place] [address] [place], [place] [id number] CT Scan Report Signed Patient: Sabi Santamaria MR#: [id number] : 1945 Acct:[id number] Age/Sex: 78 / F ADM Date: 12/10/23 Loc: XT Room: Type: [facility] RCR Attending Dr: Bonnie Hendricks MD [...] Rickey Rey M.D.12/10/2023 4:28 PM Dictation Location: [place] [address] Transcribed By: PAMELA 12/10/231627 Dictated By: Rickey Rey DO 12/10/231622 Signed By: 12/10/231627 Normal [facility] Calcium [Mass/volume] in Ser um or PlasmaOrdered By: Nara Bowman on 12-10-2023 Calcium [Mass/Vol] 9.3 mg/dL 8.6-10.3 [facility] Carbon dioxide, total [Moles /volume] in Serum or PlasmaOrdered By: Nara Bowman on 12-10-2023 CO2 [Moles/Vol] 30.1 mmol/L 21.0-31.0 [facility] Chloride [Moles/volume] in S clyde or PlasmaOrdered By: Nara Bowman on 12-10-2023 Chloride [Moles/Vol] 105 mmol/L 98-107 [facility] Creatinine [Mass/volume] in Serum or PlasmaOrdered By: Nara Bowman on 12-10-2023 Creatinine [Mass/Vol] 0.72 mg/dL 0.60-1.20 [facility] Eosinophils Auto (Bld) [#/Vo l]Ordered By: Nara Bowman on 12-10-2023 Eosinophils (Bld) [#/Vol] 0.2 10*3/uL 0.0-0.45 [facility] Eosinophils/100 WBC Auto (Bl d)Ordered By: Nara Bowman on 12-10-2023 Eosinophils/100 WBC (Bld) 4.5 % . [facility] Erythrocyte distribution wid th Auto (RBC) [Ratio]Ordered By: Nara Bowman on 12-10-2023 Erythrocyte distribution width (RBC) [Ratio] 15.5 % High 11.9-15.3 [facility] Globulin Calc (S) [Mass/Vol] Ordered By: Nara Bowman on 12-10-2023 Globulin (S) [Mass/Vol] 4.2 g/dL [facility] Glucose [Mass/volume] in Ser um or PlasmaOrdered By: Nara Bowman on 12-10-2023 Glucose [Mass/Vol] 95 mg/dL 70-100 [facility] Comment on above: ADA recommended refe rence rangeRandom Glucose Reference Range is dependent on time and content of last meal. Glucose of more than 200 mg/dL in a nonstressed, ambulatory subject supports the diagnosis of Diabetes Mellitus. Hematocrit Auto (Bld) [Volum e fraction]Ordered By: Nara Bowman on 12-10-2023 Hematocrit (Bld) [Volume fraction] 37.0 % 34.0-46.4 [facility] Hemoglobin [Mass/volume] in BloodOrdered By: Nara Bowman on 12-10-2023 Hemoglobin (Bld) [Mass/Vol] 12.4 g/dL 11.8-15.4 [facility] Leukocytes [#/volume] correc blanca for nucleated erythrocytes in Blood by Automated counOrdered By: Nara Bowman on 12-10-2023 WBC corrected for nucl RBC Auto (Bld) [#/Vol] 5.1 10*3/uL 3.8-11.6 [facility] Lymphocytes Auto (Bld) [#/Vo l]Ordered By: Nara Bowman on 12-10-2023 Lymphocytes (Bld) [#/Vol] 1.6 10*3/uL 1.00-4.8 [facility] Lymphocytes/100 WBC Auto (Bl d)Ordered By: Nara Bowman on 12-10-2023 Lymphocytes/100 WBC (Bld) 30.7 % . [facility] MCH Auto (RBC) [Entitic mass ]Ordered By: Nara Bowman on 12-10-2023 MCH (RBC) [Entitic mass] 30.3 pg 24.7-34.3 [facility] MCHC Auto (RBC) [Mass/Vol]Or dered By: Nara Bowman on 12-10-2023 MCHC (RBC) [Mass/Vol] 33.5 g/dL 32.0-35.0 [facility] MCV Auto (RBC) [Entitic vol] Ordered By: Nara Bowman on 12-10-2023 MCV (RBC) [Entitic vol] 90.4 fL 80-100 [facility] Monocytes Auto (Bld) [#/Vol] Ordered By: Nara Bowman on 12-10-2023 Monocytes (Bld) [#/Vol] 0.4 10*3/uL 0.0-0.8 [facility] Monocytes/100 WBC Auto (Bld) Ordered By: Nara Bowman on 12-10-2023 Monocytes/100 WBC (Bld) 8.6 % . [facility] Neutrophils Auto (Bld) [#/Vo l]Ordered By: Nara Bowman on 12-10-2023 Neutrophils (Bld) [#/Vol] 2.9 10*3/uL 1.8-7.7 [facility] Neutrophils/100 WBC Auto (Bl d)Ordered By: Nara Bowman on 12-10-2023 Neutrophils/100 WBC (Bld) 55.6 % . [facility] No Panel InformationOrdered By: Nara Bowman on 12-10-2023 Estimated GFR (CKD-EPI) > 60.0 mL/Min [facility] Creatinine Clearance (Chem 50.85 [facility] Nucleated erythrocytes [Pres ence] in Blood by Automated countOrdered By: Nara Bowman on 12-10-2023 Nucleated RBC Auto Ql (Bld) 0.1 /100{WBC} 0-0.5 [facility] Platelet mean volume Auto (B ld) [Entitic vol]Ordered By: Nara Bowman on 12-10-2023 Platelet mean volume (Bld) [Entitic vol] 7.1 fL 6.3-10.7 [facility] Platelets Auto (Bld) [#/Vol] Ordered By: Nara Bowman on 12-10-2023 Platelets (Bld) [#/Vol] 281 10*3/uL 150-450 [facility] Potassium [Moles/volume] in Serum or PlasmaOrdered By: Nara Bowman on 12-10-2023 Potassium [Moles/Vol] 4.2 mmol/L 3.5-5.1 [facility] Protein [Mass/volume] in Ser um or PlasmaOrdered By: Nara Bowman on 12-10-2023 Protein [Mass/Vol] 8.1 g/dL 6.4-8.9 [facility] RBC Auto (Bld) [#/Vol]Ordere d By: Nara Bowman on 12-10-2023 RBC (Bld) [#/Vol] 4.10 10*6/uL 3.60-5.00 [facility] Serum or plasma albumin/glob ulin mass ratioOrdered By: Nara Bowman on 12-10-2023 Albumin/Globulin [Mass ratio] 0.9 {ratio} [facility] Serum or plasma anion gap de terminationOrdered By: Nara Bowman on 12-10-2023 Anion gap [Moles/Vol] 9.1 mmol/L 6.0-15.0 [facility] Serum or plasma cancer antig en 125 (CA-125) measurement (units/volume)Ordered By: Nara Bowman on 12-10-2023 Cancer Ag 125 Qn 19.8 [arb'U]/mL 0.0-38.1 [facility] Comment on above: [employer] [place] ectrochemiluminescence Immunoassay(ECLIA)Values obtained with different assay methods or kits cannotbe used interchangeably. Results cannot be interpreted asabsolute evidence of the presence or absence of malignantdisease.Performed at: - [id number] Director: Adrian Coello PhD, Phone: [phone] Sodium [Moles/volume] in Ser um or PlasmaOrdered By: Nara Bowman on 12-10-2023 Sodium [Moles/Vol] 140 mmol/L 136-145 [facility] Urea nitrogen [Mass/volume] in Serum or PlasmaOrdered By: Nara Bowman on 12-10-2023 Urea nitrogen [Mass/Vol] 17 mg/dL 7-25 [facility] WBC Auto (Bld) [#/Vol]Ordere d By: Nara Bowman on 12-10-2023 WBC (Bld) [#/Vol] 5.1 10*3/uL 3.8-11.6 [facility] Alanine aminotransferase [En zymatic activity/volume] in Serum or PlasmaOrdered By: Bonnie Eladio on 06-06-2023 ALT [Catalytic activity/Vol] 11 U/L Normal 7-52 [facility] Comment on above: Performed By: #### C MP, CBC #### [facility] [address] [place] [address] [place] #### CA125 #### [facility] , Albumin [Mass/volume] in Ser um or Plasma by Bromocresol green (BCG) dye binding methoOrdered By: Bonnie Hendricks on 06-06-2023 Albumin BCG dye [Mass/Vol] 3.7 g/dL 3.5-5.7 [facility] Alkaline phosphatase [Enzyma tic activity/volume] in Serum or PlasmaOrdered By: Bonnie Hendricks on 06-06-2023 ALP [Catalytic activity/Vol] 111 U/L High 34-104 [facility] Comment on above: Result Comment: PERF ORMED BY: [place] [address] PATHOLOGIST COMMISSARY OFFICER ALIS BLOCK M.D. Performed By: #### C MP, CBC #### [facility] [address] [place] [address] [place] #### CA125 #### [facility] , Aspartate aminotransferase [ Enzymatic activity/volume] in Serum or PlasmaOrdered By: Bonnie Hendricks on 06-06-2023 AST [Catalytic activity/Vol] 21 U/L Normal 13-39 [facility] Comment on above: Performed By: #### C MP, CBC #### [facility] [address] [place] [address] [place] #### CA125 #### [facility] , Automated basophil %Ordered By: Bonnie Hendricks on 06-06-2023 Basophils/100 WBC (Bld) 0.5 % Normal . [facility] Comment on above: Performed By: #### C MP, CBC #### [place] [address] [place] #### CA125 #### [facility] , Automated basophil countOrde red By: Bonnie Hendricks on 06-06-2023 Basophils (Bld) [#/Vol] 0.0 10*3/uL Normal 0.0-0.2 [facility] Comment on above: Result Comment: PERF ORMED BY: [place] [address] PATHOLOGIST COMMISSARY OFFICER ALIS BLOCK M.D. Performed By: #### C MP, CBC #### [place] [address] [place] #### CA125 #### [facility] , Automated blood monocyte cou ntOrdered By: Bonnie Francoisse on 06-06-2023 Monocytes (Bld) [#/Vol] 0.5 10*3/uL Normal 0.0-0.8 [facility] Comment on above: Performed By: #### C MP, CBC #### [address] #### CA125 #### [facility] , Automated eosinophil %Ordere d By: Bonnie Hendricks on 06-06-2023 Eosinophils/100 WBC (Bld) 2.1 % Normal . [facility] Comment on above: Performed By: #### C MP, CBC #### [place] [address] [place] #### CA125 #### [facility] , Automated eosinophil countOr dered By: Bonnie Hendricks on 06-06-2023 Eosinophils (Bld) [#/Vol] 0.1 10*3/uL Normal 0.0-0.45 [facility] Comment on above: Performed By: #### C MP, CBC #### [place] [address] [place] #### CA125 #### [facility] , Automated monocyte %Ordered By: Bonnie Francoisse on 06-06-2023 Monocytes/100 WBC (Bld) 7.8 % Normal . [facility] Comment on above: Performed By: #### C MP, CBC #### [facility] [address] [place] [address] [place] #### CA125 #### [facility] , Automated neutrophil %Ordere d By: Bonnie Hendricks on 06-06-2023 Neutrophils/100 WBC (Bld) 62.6 % Normal . [facility] Comment on above: Performed By: #### C MP, CBC #### [facility] [address] [place] [address] [place] #### CA125 #### [facility] , Bilirubin.total [Mass/volume ] in Serum or PlasmaOrdered By: Bonnie Hendricks on 06-06-2023 Bilirubin [Mass/Vol] 0.6 mg/dL Normal 0.3-1.0 [facility] Comment on above: Performed By: #### C MP, CBC #### [facility] [address] [place] [address] [place] #### CA125 #### [facility] , Calcium [Mass/volume] in Ser um or PlasmaOrdered By: Bonnie Hendricks on 06-06-2023 Calcium [Mass/Vol] 9.4 mg/dL Normal 8.6-10.3 [facility] Comment on above: Performed By: #### C MP, CBC #### [facility] [address] [place] [address] [place] #### CA125 #### [facility] , Cancer Antigen 125on 023 Cancer Antigen 125 15.5 Normal 0.0-38.1 [facility] Comment on above: Result Comment: [facility] [employer] Electrochemiluminescence Immunoassay (ECLIA) Values obtained with different assay methods or kits cannot be used interchangeably. Results cannot be interpreted as absolute evidence of the presence or absence of malignant disease. Performed at: [facility] [address] [id number] Manager Residential: Adrian Coello PhD, Phone: [phone] PERFORMED BY: [place] [address] PATHOLOGIST COMMISSARY OFFICER ALIS BLOCK M.D. Performed By: #### C MP, CBC #### [facility] [address] [place] [address] [place] #### CA125 #### [facility] , Carbon dioxide, total [Moles /volume] in Serum or PlasmaOrdered By: Bonnie Hendricks on 06-06-2023 CO2 [Moles/Vol] 29.4 mmol/L Normal 21.0-31.0 [facility] Comment on above: Performed By: #### C MP, CBC #### [place] [address] [place] #### CA125 #### [facility] , Chloride [Moles/volume] in S clyde or PlasmaOrdered By: Bonnie Hendricks on 06-06-2023 Chloride [Moles/Vol] 103 mmol/L Normal 98-107 [facility] Comment on above: Performed By: #### C MP, CBC #### [place] [address] [place] #### CA125 #### [facility] , Complete Blood Count Auto Di ffon 06-06-2023 Mean Corpuscular HGB Conc 32.9 g/dL Normal 32.0-35.0 [facility] Comment on above: Performed By: #### C MP, CBC #### [facility] [address] [place] [address] [place] #### CA125 #### [facility] , NRBC% 0.1 /100{WBC} Normal 0-0.5 [facility] Comment on above: Performed By: #### C MP, CBC #### [place] [address] [place] #### CA125 #### [facility] , Comprehensive Metabolic Pane chelsey 06-06-2023 Albumin [Mass/Vol] 3.7 g/dL Normal 3.5-5.7 [facility] Comment on above: Performed By: #### C MP, CBC #### [facility] [address] [place] [address] [place] #### CA125 #### [facility] , GFR/1.73 sq M.predicted MDRD (S/P/Bld) [Vol rate/Area] mL/min/{1.73_m2} Normal [facility] Comment on above: Performed By: #### C MP, CBC #### [facility] [address] [place] [address] [place] #### CA125 #### [facility] , Creatinine [Mass/volume] in Serum or PlasmaOrdered By: Bonnie Hendricks on 06-06-2023 Creatinine [Mass/Vol] 0.64 mg/dL Normal 0.60-1.20 [facility] Comment on above: Performed By: #### C MP, CBC #### [facility] [address] [place] [address] [place] #### CA125 #### [facility] , Erythrocyte distribution wid th [Ratio] by Automated countOrdered By: Bonnie Hendricks on 06-06-2023 Erythrocyte distribution width (RBC) [Ratio] 15.6 % High 11.9-15.3 [facility] Comment on above: Performed By: #### C MP, CBC #### [facility] [address] [place] [address] [place] #### CA125 #### [facility] , Erythrocytes [#/volume] in B lood by Automated countOrdered By: Bonnie Hendricks on 06-06-2023 RBC (Bld) [#/Vol] 4.36 10*6/uL Normal 3.60-5.00 [facility] Comment on above: Performed By: #### C MP, CBC #### [facility] [address] [place] [address] [place] #### CA125 #### [facility] , Glucose [Mass/volume] in Ser um or PlasmaOrdered By: Bonnie Eladio on 06-06-2023 Glucose [Mass/Vol] 93 mg/dL Normal 70-100 [facility] Comment on above: ADA recommended refe rence rangeRandom Glucose Reference Range is dependent on time and content of last meal. Glucose of more than 200 mg/dL in a nonstressed, ambulatory subject supports the diagnosis of Diabetes Mellitus. Result Comment: [place] om Glucose Reference Range is dependent on time and content of last meal. Glucose of more than 200 mg/dL in a nonstressed, ambulatory subject supports the diagnosis of Diabetes Mellitus. ADA recommended reference range Performed By: #### C MP, CBC #### [facility] [address] [place] [address] [place] #### CA125 #### [facility] , Hematocrit [Volume Fraction] of Blood by Automated countOrdered By: Bonnie Hendricks on 06-06-2023 Hematocrit (Bld) [Volume fraction] 37.2 % Normal 34.0-46.4 [facility] Comment on above: Performed By: #### C MP, CBC #### [facility] [address] [place] [address] [place] #### CA125 #### [facility] , Hemoglobin [Mass/volume] in BloodOrdered By: Bonnie Hendricks on 06-06-2023 Hemoglobin (Bld) [Mass/Vol] 12.3 g/dL Normal 11.8-15.4 [facility] Comment on above: Performed By: #### C MP, CBC #### [facility] [address] [place] [address] [place] #### CA125 #### [facility] , Leukocytes [#/volume] correc blanca for nucleated erythrocytes in Blood by Automated counOrdered By: Bonnie Hendricks on 06-06-2023 WBC corrected for nucl RBC Auto (Bld) [#/Vol] 5.9 10*3/uL 3.8-11.6 [facility] Leukocytes [#/volume] in Blo od by Automated countOrdered By: Bonnie Hendricks on 06-06-2023 WBC (Bld) [#/Vol] 5.9 10*3/uL Normal 3.8-11.6 [facility] Comment on above: Performed By: #### C MP, CBC #### [facility] [address] [place] [address] [place] #### CA125 #### [facility] , Lymphocytes [#/volume] in Bl ood by Automated countOrdered By: Bonnie Hendricks on 06-06-2023 Lymphocytes (Bld) [#/Vol] 1.6 10*3/uL Normal 1.00-4.8 [facility] Comment on above: Performed By: #### C MP, CBC #### [facility] [address] [place] [address] [place] #### CA125 #### [facility] , Lymphocytes/100 leukocytes i n Blood by Automated countOrdered By: Bonnie Hendricks on 06-06-2023 Lymphocytes/100 WBC (Bld) 27.0 % Normal . [facility] Comment on above: Performed By: #### C MP, CBC #### [facility] [address] [place] [address] [place] #### CA125 #### [facility] , MCH [Entitic mass] by Automa blanca countOrdered By: Bonnie Hendricks on 06-06-2023 MCH (RBC) [Entitic mass] 28.1 pg Normal 24.7-34.3 [facility] Comment on above: Performed By: #### C MP, CBC #### [facility] [address] [place] [address] [place] #### CA125 #### [facility] , MCHC Auto (RBC) [Mass/Vol]Or dered By: Bonnie Hendricks on 06-06-2023 MCHC (RBC) [Mass/Vol] 32.9 g/dL 32.0-35.0 [facility] MCV [Entitic volume] by Auto mated countOrdered By: Bonnie Hendricks on 06-06-2023 MCV (RBC) [Entitic vol] 85.4 fL Normal 80-100 [facility] Comment on above: Performed By: #### C MP, CBC #### [facility] [address] [place] [address] [place] #### CA125 #### [facility] , Neutrophils [#/volume] in Bl ood by Automated countOrdered By: Bonnie Hendricks on 06-06-2023 Neutrophils (Bld) [#/Vol] 3.7 10*3/uL Normal 1.8-7.7 [facility] Comment on above: Performed By: #### C MP, CBC #### [facility] [address] [place] [address] [place] #### CA125 #### [facility] , No Panel InformationOrdered By: Bonnie Hendricks on 06-06-2023 Estimated GFR (CKD-EPI) > 60.0 mL/Min [facility] Creatinine Clearance (Chem N/A [facility] Nucleated erythrocytes [Pres ence] in Blood by Automated countOrdered By: Bonnie Hendricks on 06-06-2023 Nucleated RBC Auto Ql (Bld) 0.1 /100{WBC} 0-0.5 [facility] Platelet mean volume [Entiti c volume] in Blood by Automated countOrdered By: Bonnie Hendricks on 06-06-2023 Platelet mean volume (Bld) [Entitic vol] 6.9 fL Normal 6.3-10.7 [facility] Comment on above: Performed By: #### C MP, CBC #### [facility] [address] [place] [address] [place] #### CA125 #### [facility] , Platelets [#/volume] in Bloo d by Automated countOrdered By: Bonnie Hendricks on 06-06-2023 Platelets (Bld) [#/Vol] 333 10*3/uL Normal 150-450 [facility] Comment on above: Performed By: #### C MP, CBC #### [facility] [address] [place] [address] [place] #### CA125 #### [facility] , Potassium [Moles/volume] in Serum or PlasmaOrdered By: Bonnie Eladio on 06-06-2023 Potassium [Moles/Vol] 3.9 mmol/L Normal 3.5-5.1 [facility] Comment on above: Performed By: #### C MP, CBC #### [facility] [address] [place] [address] [place] #### CA125 #### [facility] , Protein [Mass/volume] in Ser um or PlasmaOrdered By: Bonnie Hendricks on 06-06-2023 Protein [Mass/Vol] 7.8 g/dL Normal 6.4-8.9 [facility] Comment on above: Performed By: #### C MP, CBC #### [address] #### CA125 #### [facility] , Serum globulin measurement b y calculation (mass/volume)Ordered By: Bonnie Hendricks on 06-06-2023 Globulin (S) [Mass/Vol] 4.1 g/dL [facility] Comment on above: Performed By: #### C MP, CBC #### [facility] [address] [place] [address] [place] #### CA125 #### [facility] , Serum or plasma albumin/glob ulin mass ratioOrdered By: Bonnie Hendricks on 06-06-2023 Albumin/Globulin [Mass ratio] 0.9 {ratio} [facility] Comment on above: Performed By: #### C MP, CBC #### [facility] [address] [place] [address] [place] #### CA125 #### [facility] , Serum or plasma anion gap de terminationOrdered By: Bonnie Hendricks on 06-06-2023 Anion gap [Moles/Vol] 8.5 mmol/L Normal 6.0-15.0 [facility] Comment on above: Performed By: #### C MP, CBC #### [facility] [address] [place] [address] #### CA125 #### [facility] , Serum or plasma cancer antig en 125 (CA-125) measurement (units/volume)Ordered By: Bonnie Hendricks on 06-06-2023 Cancer Ag 125 Qn 15.5 [arb'U]/mL 0.0-38.1 [facility] Comment on above: [facility] El ectrochemiluminescence Immunoassay(ECLIA)Values obtained with different assay methods or kits cannotbe used interchangeably. Results cannot be interpreted asabsolute evidence of the presence or absence of malignantdisease.Performed at: [facility] [place] [id number] Director: Adrian Coello PhD, Phone: [phone] Sodium [Moles/volume] in Ser um or PlasmaOrdered By: Bonnie Hendricks on 06-06-2023 Sodium [Moles/Vol] 137 mmol/L Normal 136-145 [facility] Comment on above: Performed By: #### C MARTIN, CBC #### [facility] [address] [place] [address] [place] #### CA125 #### [facility] , Urea nitrogen [Mass/volume] in Serum or PlasmaOrdered By: Bonnie Hendricks on 06-06-2023 Urea nitrogen [Mass/Vol] 12 mg/dL Normal 01-09 [facility] Comment on above: Performed By: #### C MP, CBC #### [facility] [address] [place] [address] [place] #### CA125 #### [facility] , Alanine aminotransferase [En zymatic activity/volume] in Serum or PlasmaOrdered By: Bonnie Hendricks on 12-12-2022 ALT [Catalytic activity/Vol] 8 U/L [facility] Albumin [Mass/volume] in Ser um or Plasma by Bromocresol green (BCG) dye binding methoOrdered By: Bonnie Hendricks on 12-12-2022 Albumin BCG dye [Mass/Vol] 3.8 g/dL 3.5-5.7 [facility] Alkaline phosphatase [Enzyma tic activity/volume] in Serum or PlasmaOrdered By: Bonnie Hendricks on 12-12-2022 ALP [Catalytic activity/Vol] 87 U/L 34-104 [facility] Aspartate aminotransferase [ Enzymatic activity/volume] in Serum or PlasmaOrdered By: Bonnie Hendricks on 12-12-2022 AST [Catalytic activity/Vol] 13 U/L 13-39 [facility] Basophils Auto (Bld) [#/Vol] Ordered By: Bonnie Hendricks on 12-12-2022 Basophils (Bld) [#/Vol] 0.0 10*3/uL 0.0-0.2 [facility] Basophils/100 WBC Auto (Bld) Ordered By: Bonnie Hendricks on 12-12-2022 Basophils/100 WBC (Bld) 0.6 % . [facility] Bilirubin.total [Mass/volume ] in Serum or PlasmaOrdered By: Bonnie Hendricks on 12-12-2022 Bilirubin [Mass/Vol] 0.5 mg/dL 0.3-1.0 [facility] Calcium [Mass/volume] in Ser um or PlasmaOrdered By: Bonnie Hendricks on 12-12-2022 Calcium [Mass/Vol] 9.1 mg/dL 8.6-10.3 [facility] Carbon dioxide, total [Moles /volume] in Serum or PlasmaOrdered By: Bonnie Hendricks on 12-12-2022 CO2 [Moles/Vol] 27.1 mmol/L 21.0-31.0 [facility] Chloride [Moles/volume] in S clyde or PlasmaOrdered By: Bonnie Hendricks on 12-12-2022 Chloride [Moles/Vol] 104 mmol/L 98-107 [facility] Creatinine [Mass/volume] in Serum or PlasmaOrdered By: Bonnie Hendricks on 12-12-2022 Creatinine [Mass/Vol] 0.69 mg/dL 0.60-1.20 [facility] Eosinophils Auto (Bld) [#/Vo l]Ordered By: Bonnie Hendricks on 12-12-2022 Eosinophils (Bld) [#/Vol] 0.1 10*3/uL 0.0-0.45 [facility] Eosinophils/100 WBC Auto (Bl d)Ordered By: Bonnie Hendricks on 12-12-2022 Eosinophils/100 WBC (Bld) 3.1 % . [facility] Erythrocyte distribution wid th Auto (RBC) [Ratio]Ordered By: Bonnie Hendricks on 12-12-2022 Erythrocyte distribution width (RBC) [Ratio] 14.9 % 11.9-15.3 [facility] Globulin Calc (S) [Mass/Vol] Ordered By: Bonnie Hendricks on 12-12-2022 Globulin (S) [Mass/Vol] 4.0 g/dL [facility] Glucose [Mass/volume] in Ser um or PlasmaOrdered By: Bonnie Hendricks on 12-12-2022 Glucose [Mass/Vol] 99 mg/dL 70-100 [facility] Comment on above: ADA recommended refe rence rangeRandom Glucose Reference Range is dependent on time and content of last meal. Glucose of more than 200 mg/dL in a nonstressed, ambulatory subject supports the diagnosis of Diabetes Mellitus. Hematocrit Auto (Bld) [Volum e fraction]Ordered By: Bonnie Hendricks on 12-12-2022 Hematocrit (Bld) [Volume fraction] 35.1 % 34.0-46.4 [facility] Hemoglobin [Mass/volume] in BloodOrdered By: Bonnie Hendricks on 12-12-2022 Hemoglobin (Bld) [Mass/Vol] 11.5 g/dL 11.8-15.4 [facility] Leukocytes [#/volume] correc blanca for nucleated erythrocytes in Blood by Automated counOrdered By: Bonnie Hendricks on 12-12-2022 WBC corrected for nucl RBC Auto (Bld) [#/Vol] 4.8 10*3/uL 3.8-11.6 [facility] Lymphocytes Auto (Bld) [#/Vo l]Ordered By: Bonnie Hendricks on 12-12-2022 Lymphocytes (Bld) [#/Vol] 1.5 10*3/uL 1.00-4.8 [facility] Lymphocytes/100 WBC Auto (Bl d)Ordered By: Bonnie Hendricks on 12-12-2022 Lymphocytes/100 WBC (Bld) 31.0 % . [facility] MCH Auto (RBC) [Entitic mass ]Ordered By: Bonnie Hendricks on 12-12-2022 MCH (RBC) [Entitic mass] 28.6 pg 24.7-34.3 [facility] MCHC Auto (RBC) [Mass/Vol]Or dered By: Bonnie Hendricks on 12-12-2022 MCHC (RBC) [Mass/Vol] 32.8 g/dL 32.0-35.0 [facility] MCV Auto (RBC) [Entitic vol] Ordered By: Bonnie Hendricks on 12-12-2022 MCV (RBC) [Entitic vol] 87.1 fL 80-100 [facility] Monocytes Auto (Bld) [#/Vol] Ordered By: Bonnie Hendricks on 12-12-2022 Monocytes (Bld) [#/Vol] 0.4 10*3/uL 0.0-0.8 [facility] Monocytes/100 WBC Auto (Bld) Ordered By: Bonnie Hendricks on 12-12-2022 Monocytes/100 WBC (Bld) 8.4 % . [facility] Neutrophils Auto (Bld) [#/Vo l]Ordered By: Bonnie Hendricks on 12-12-2022 Neutrophils (Bld) [#/Vol] 2.8 10*3/uL 1.8-7.7 [facility] Neutrophils/100 WBC Auto (Bl d)Ordered By: Bonnie Hendricks on 12-12-2022 Neutrophils/100 WBC (Bld) 56.9 % . [facility] No Panel InformationOrdered By: Bonnie Hendricks on 12-12-2022 Estimated GFR (CKD-EPI) > 60.0 mL/Min [facility] Creatinine Clearance (Chem N/A [facility] Nucleated erythrocytes [Pres ence] in Blood by Automated countOrdered By: Bonnie Hendricks on 12-12-2022 Nucleated RBC Auto Ql (Bld) 0.2 /100{WBC} 0-0.5 [facility] Platelet mean volume Auto (B ld) [Entitic vol]Ordered By: Bonnie Hendricks on 12-12-2022 Platelet mean volume (Bld) [Entitic vol] 6.9 fL 6.3-10.7 [facility] Platelets Auto (Bld) [#/Vol] Ordered By: Bonnie Hendricks on 12-12-2022 Platelets (Bld) [#/Vol] 315 10*3/uL 150-450 [facility] Potassium [Moles/volume] in Serum or PlasmaOrdered By: Bonnie Hendricks on 12-12-2022 Potassium [Moles/Vol] 4.3 mmol/L 3.5-5.1 [facility] Protein [Mass/volume] in Ser um or PlasmaOrdered By: Bonnie Hendricks on 12-12-2022 Protein [Mass/Vol] 7.8 g/dL 6.4-8.9 [facility] RBC Auto (Bld) [#/Vol]Ordere d By: Bonnie Hendricks on 12-12-2022 RBC (Bld) [#/Vol] 4.04 10*6/uL 3.60-5.00 [facility] Serum or plasma albumin/glob ulin mass ratioOrdered By: Bonnie Hendricks on 12-12-2022 Albumin/Globulin [Mass ratio] 1.0 {ratio} [facility] Serum or plasma anion gap de terminationOrdered By: Bonnie Hendricks on 12-12-2022 Anion gap [Moles/Vol] 10.2 mmol/L 6.0-15.0 [facility] Serum or plasma cancer antig en 125 (CA-125) measurement (units/volume)Ordered By: Bonnie Hendricks on 12-12-2022 Cancer Ag 125 Qn 19.0 [arb'U]/mL 0.0-38.1 [facility] Comment on above: [facility] El ectrochemiluminescence Immunoassay(ECLIA)Values obtained with different assay methods or kits cannotbe used interchangeably. Results cannot be interpreted asabsolute evidence of the presence or absence of malignantdisease.Performed at: [facility] [id number] Director: Adrian Coello PhD, Phone: [phone] Sodium [Moles/volume] in Ser um or PlasmaOrdered By: Bonnie Hendricks on 12-12-2022 Sodium [Moles/Vol] 137 mmol/L 136-145 [facility] Urea nitrogen [Mass/volume] in Serum or PlasmaOrdered By: Bonnie Hendricks on 12-12-2022 Urea nitrogen [Mass/Vol] 15 mg/dL 7-25 [facility] WBC Auto (Bld) [#/Vol]Ordere d By: Bonnie Hendricks on 12-12-2022 WBC (Bld) [#/Vol] 4.8 10*3/uL 3.8-11.6 [facility] CULTURE URINEon 09-19-2022 CULTURE URINE Isolate 1 [...] Trimethoprim/Sulfamethoxa zole <=20 S F Normal [facility] Comment on above: Performed By: #### C RP, CMP #### [facility] [address] [place] [address] Dr. Sung Moore CBC AUTO DIFFon 09-16-2022 BASO # 0.0 103/ul Normal 0.0-0.1 [facility] Comment on above: Performed By: #### C RP, CMP #### [facility] [address] [place] [address] Dr. Sung Moore Basophils/100 WBC (Bld) 0.3 % Normal 0.2-2.0 [facility] Comment on above: Performed By: #### C RP, CMP #### [facility] [address] [place] [address] Dr. Sung Moore EO # 0.2 103/ul Normal 0.0-0.7 [facility] Comment on above: Performed By: #### C RP, CMP #### [facility] [address] [place] [address] Dr. Sung Moore Eosinophils/100 WBC (Bld) 3.4 % Normal 0.9-7.0 [facility] Comment on above: Performed By: #### C RP, CMP #### [facility] [address] [place] [address] Dr. Sung Moore Erythrocyte distribution width (RBC) [Ratio] 16.1 % Critically high 11.0-15.0 [facility] Comment on above: Performed By: #### C RP, CMP #### [facility] [address] [place] [address] Dr. Sung Moore Hematocrit (Bld) [Volume fraction] 37.0 % Normal 36.0-48.0 [facility] Comment on above: Performed By: #### C RP, CMP #### [facility] [address] [place] [address] Dr. Sung Moore Hemoglobin (Bld) [Mass/Vol] 12.1 g/dL Normal 12.0-16.0 [facility] Comment on above: Performed By: #### C RP, CMP #### [facility] [address] [place] [address] Dr. Sung Moore IG # 0.02 10e3/ul Normal 0.00-0.03 [facility] Comment on above: Performed By: #### C RP, CMP #### [facility] [address] [place] [address] Dr. Sung Moore IG % 0.3 % Normal 0.0-0.5 [facility] Comment on above: Performed By: #### C RP, CMP #### [facility] [address] [place] [address] Dr. Sung Moore LYMPH # 2.0 103/ul Normal 1.2-3.8 [facility] Comment on above: Performed By: #### C RP, CMP #### [facility] [address] [place] [address] Dr. Sung Moore Lymphocytes/100 WBC (Bld) 29.0 % Normal 20.5-60.0 [facility] Comment on above: Performed By: #### C RP, CMP #### [facility] [address] [place] [address] Dr. Sung Moore MANUAL DIFF REQ NO Normal [facility] Comment on above: Performed By: #### C RP, CMP #### [facility] [address] [place] [address] Dr. Sung Moore MCH (RBC) [Entitic mass] 28.6 pg Normal 26.7-34.0 [facility] Comment on above: Performed By: #### C RP, CMP #### [facility] [address] [place] [address] Dr. Sung Moore MCHC (RBC) [Mass/Vol] 32.7 g/dL Normal 29.9-35.2 [facility] Comment on above: Performed By: #### C RP, CMP #### [facility] [address] [place] [address] Dr. Sung Moore MCV (RBC) [Entitic vol] 87.5 fL Normal 81.0-99.0 [facility] Comment on above: Performed By: #### C RP, CMP #### [facility] [address] [place] [address] Dr. Sung Moore MONO # 0.5 103/ul Normal 0.3-0.8 [facility] Comment on above: Performed By: #### C RP, CMP #### [facility] [address] [place] [address] Dr. Sung Moore Monocytes/100 WBC (Bld) 6.7 % Normal 1.7-12.0 [facility] Comment on above: Performed By: #### C RP, CMP #### [facility] [address] [place] [address] Dr. Sung Moore NEUT # 4.1 103/ul Normal 1.4-6.5 [facility] Comment on above: Performed By: #### C RP, CMP #### [facility] [address] [place] [address] Dr. Sung Moore Neutrophils/100 WBC (Bld) 60.3 % Normal 43.0-75.0 [facility] Comment on above: Performed By: #### C RP, CMP #### [facility] [address] [place] [address] Dr. Sung Moore Platelet mean volume (Bld) [Entitic vol] 8.9 fL Critically low 9.5-13.5 [facility] Comment on above: Performed By: #### C RP, CMP #### [facility] [address] [place] [address] Dr. Sung Moore PLT 255 103/ul Normal 150-450 [facility] Comment on above: Performed By: #### C RP, CMP #### [facility] [address] [address] [address] Sung Moore RBC 4.23 106/ul Normal 4.20-5.40 [facility] Comment on above: Performed By: #### C RP, CMP #### [facility] [address] [place] [address] Dr. Sung Moore WBC 6.8 103/ul Normal 4.0-11.0 [facility] Comment on above: Performed By: #### C RP, CMP #### [facility] [address] [place] [address] Dr. Sung Moore ER URINE PROFILEon 3 Bilirubin Ql (U) Negative Normal NEGATIVE [facility] Comment on above: Performed By: #### C MP, BNP #### [facility] [address] [place] [address] Dr. Sung Moore Clarity (U) SL CLOUDY Abnormal CLEAR [facility] Comment on above: Performed By: #### C MP, BNP #### [facility] [address] [address] [address] Sung Moore Color (U) YELLOW Normal YELLOW [facility] Comment on above: Performed By: #### C MP, BNP #### [facility] [address] [place] [address] Dr. Sung Moore ERUAHD A micrscopic examina tion will be performed if indicated. Normal [facility] Comment on above: Performed By: #### C MP, BNP #### [facility] [address] [place] [address] Dr. Sung Moore Glucose Ql (U) Negative Normal NEGATIVE [facility] Comment on above: Performed By: #### C MP, BNP #### [facility] [address] [place] [address] Dr. Sung Moore Hemoglobin Ql (U) SMALL Abnormal NEGATIVE [facility] Comment on above: Performed By: #### C MP, BNP #### [facility] [address] [place] [address] Dr. Sung Moore Ketones Ql (U) Negative Normal NEGATIVE [facility] Comment on above: Performed By: #### C MP, BNP #### [facility] [address] [place] [address] Dr. Sung Moore LEUKOCYTES LARGE Abnormal NEGATIVE [facility] Comment on above: Performed By: #### C MP, BNP #### [facility] [address] [place] [address] Dr. Sung Moore Nitrite Ql (U) Positive Abnormal NEGATIVE [facility] Comment on above: Performed By: #### C MP, BNP #### [facility] [address] [place] [address] Dr. Sung Moore pH (U) 8.5 [pH] Normal 5-9 [facility] Comment on above: Performed By: #### C MP, BNP #### [facility] [address] [place] [address] Dr. Sung Moore SPEC GRAVITY 1.010 Normal 1.005-<=1. 025 [facility] Comment on above: Performed By: #### C MP, BNP #### [facility] [address] [place] [address] Dr. Sung Moore UA PROTEIN TRACE Normal NEGATIVE/ TRACE [facility] Comment on above: Performed By: #### C MP, BNP #### [facility] [address] [place] [address] Dr. Sung Moore UR MICRO IND INDICATED Normal [facility] Comment on above: Performed By: #### C MP, BNP #### [facility] [address] [place] [address] Dr. Sung Moore Urobilinogen Qn (U) 0.2 {David'U}/dL Normal 0.2 - 1. 0 [facility] Comment on above: Performed By: #### C MP, BNP #### [facility] [address] [place] [address] Dr. Sung Moore LACTATE/LACTIC ACIDon 2022 Lactate [Moles/Vol] 1.0 mmol/L Normal 0.4-2.0 [facility] Comment on above: Performed By: #### L ACT #### [facility] [address] [place] [address] Dr. Sung Moore PROF 14(COMP METB)on 023 Albumin [Mass/Vol] 3.5 g/dL Normal 3.4-5.0 [facility] Comment on above: Performed By: #### C MP, BNP #### [facility] [address] [place] [address] Dr. Sung Moore Albumin/Globulin [Mass ratio] 0.9 {ratio} Normal [facility] Comment on above: Performed By: #### C MP, BNP #### [facility] [address] [place] [address] Dr. Sung Moore ALP [Catalytic activity/Vol] 113 U/L Normal 46-116 [facility] Comment on above: Performed By: #### C MP, BNP #### [facility] [address] [place] [address] Dr. Sung Moore ALT [Catalytic activity/Vol] 14 U/L Normal 14-59 [facility] Comment on above: Performed By: #### C MP, BNP #### [facility] [address] [place] [address] Dr. Sung Moore Anion gap [Moles/Vol] 13.5 mmol/L Normal [facility] Comment on above: Performed By: #### C MP, BNP #### [facility] [address] [place] [address] Dr. Sung Moore AST [Catalytic activity/Vol] 9 U/L Critically low 15-37 [facility] Comment on above: Performed By: #### C MP, BNP #### [facility] [address] [place] [address] Dr. Sung Moore Bilirubin [Mass/Vol] 0.3 mg/dL Normal 0.2-1.0 [facility] Comment on above: Performed By: #### C MP, BNP #### [facility] [address] [place] [address] Dr. Sung Moore Calcium [Mass/Vol] 9.0 mg/dL Normal 8.5-10.1 [facility] Comment on above: Performed By: #### C MP, BNP #### [facility] [address] [address] [address] Sung Moore Chloride [Moles/Vol] 104 mmol/L Normal 98-107 [facility] Comment on above: Performed By: #### C MP, BNP #### [facility] [address] [place] [address] Dr. Sung Moore CO2 [Moles/Vol] 27.3 mmol/L Normal 21.0-32.[address] [facility] Comment on above: Performed By: #### C MP, BNP #### [facility] [address] [place] [address] Dr. Sung Moore Creatinine [Mass/Vol] 0.89 mg/dL Normal 0.55-1.02 [facility] Comment on above: Performed By: #### C MP, BNP #### [facility] [address] [place] [address] Dr. Sung Moore EGFR-AF ARGENTINE >60 Normal >=[address] [facility] Comment on above: Performed By: #### C MP, BNP #### [facility] [address] [place] [address] Dr. Sung Moore EGFR-NON AF ARGENTINE >60 Normal >=60 [facility] Comment on above: Performed By: #### C MP, BNP #### [facility] [address] [place] [address] Dr. Sung Moore Globulin (S) [Mass/Vol] 4.0 g/dL Normal [facility] Comment on above: Performed By: #### C MP, BNP #### [facility] [address] [place] [address] Dr. Sung Moore Glucose [Mass/Vol] 119 mg/dL Critically high 74-106 [facility] Comment on above: Performed By: #### C MP, BNP #### [facility] [address] [address] [address] Sung Moore Potassium [Moles/Vol] 3.8 mmol/L Normal 3.5-5.1 [facility] Comment on above: Performed By: #### C MP, BNP #### [facility] [address] [place] [address] Dr. Sung Moore Protein [Mass/Vol] 7.5 g/dL Normal 6.4-8.2 [facility] Comment on above: Performed By: #### C MP, BNP #### [facility] [address] [address] [address] Sung Moore Sodium [Moles/Vol] 141 mmol/L Normal 136-145 [facility] Comment on above: Performed By: #### C MP, BNP #### [facility] [address] [place] [address] Dr. Sung Moore Urea nitrogen [Mass/Vol] 22.0 mg/dL Critically high 7.0-18.0 [facility] Comment on above: Performed By: #### C MP, BNP #### [facility] [address] [place] [address] Dr. Sung Moore Urea nitrogen/Creatinine [Mass ratio] 24.7 mg/mg Normal [facility] Comment on above: Performed By: #### C MP, BNP #### [facility] [address] [place] [address] Dr. Sung Moore URINE MICROSCOPIC ONLYon BACTERIA LARGE Abnormal NONE SEEN [facility] Comment on above: Performed By: #### C MP, BNP #### [facility] [address] [place] [address] Dr. Sung Moore Bacteria identified Cx Nom (U) INDICATED Normal [facility] Comment on above: Performed By: #### C MP, BNP #### [facility] [address] [place] [address] Dr. Sung Moore CAST NONE SEEN Normal NONE SEEN [facility] Comment on above: Performed By: #### C MP, BNP #### [facility] [address] [address] [address] Sung Moore Crystals LM Nom (Urine sed) NONE SEEN Normal NONE SEEN [facility] Comment on above: Performed By: #### C MP, BNP #### [facility] [address] [address] [address] Sung Moore Epithelial cells LM Ql (Urine sed) FEW Abnormal NONE SEEN /RARE [facility] Comment on above: Performed By: #### C MP, BNP #### [facility] [address] [place] [address] Dr. Sung Moore MUCOUS TRACE Abnormal NONE SEEN [facility] Comment on above: Performed By: #### C MP, BNP #### [facility] [address] [place] [address] Dr. Sung Moore RBC 10-20 Abnormal 0-2 [facility] Comment on above: Performed By: #### C MP, BNP #### [facility] [address] [place] [address] Dr. Sung Moore WBC (U) [#/Vol] /uL Abnormal NONE SEEN The [facility] Comment on above: Performed By: #### C MP, BNP #### [facility] [address] [place] [address] Dr. uSng Moore Albumin [Mass/volume] in Ser um or PlasmaOrdered By: Bonnie Hendricks on 05-16-2022 Albumin [Mass/Vol] 3.5 g/dL 3.2-5.5 [facility] Basophils Auto (Bld) [#/Vol] Ordered By: Bonnie Hendricks on 05-16-2022 Basophils (Bld) [#/Vol] 0.0 10*3/uL 0.0-0.2 [facility] Basophils/100 WBC Auto (Bld) Ordered By: Bonnie Hendricks on 05-16-2022 Basophils/100 WBC (Bld) 0.4 % . [facility] Creatinine and Glomerular fi ltration rate.predicted panel (S/P/Bld)Ordered By: Bonnie Hendricks on 05-16-2022 Creatinine [Mass/Vol] 0.70 mg/dL 0.44-1.03 [facility] Eosinophils Auto (Bld) [#/Vo l]Ordered By: Bonnie Hendricks on 05-16-2022 Eosinophils (Bld) [#/Vol] 0.2 10*3/uL 0.0-0.45 [facility] Eosinophils/100 WBC Auto (Bl d)Ordered By: Bonnie Hendricks on 05-16-2022 Eosinophils/100 WBC (Bld) 3.0 % . [facility] Erythrocyte distribution wid th Auto (RBC) [Ratio]Ordered By: Bonnie Hendricks on 05-16-2022 Erythrocyte distribution width (RBC) [Ratio] 19.5 % 11.9-15.3 [facility] Estimated glomerular filtrat ion rate (GFR) non- AmericanOrdered By: Bonnie Hendricks on 05-16-2022 GFR/1.73 sq M.predicted among non-blacks MDRD (S/P/Bld) [Vol rate/Area] > 60 mL/Min [facility] Globulin Calc (S) [Mass/Vol] Ordered By: Bonnie Hendricks on 05-16-2022 Globulin (S) [Mass/Vol] 4.8 g/dL [facility] Hematocrit Auto (Bld) [Volum e fraction]Ordered By: Bonnie Hendricks on 05-16-2022 Hematocrit (Bld) [Volume fraction] 34.9 % 34.0-46.4 [facility] Hemoglobin [Mass/volume] in BloodOrdered By: Bonnie Hendricks on 05-16-2022 Hemoglobin (Bld) [Mass/Vol] 11.2 g/dL 11.8-15.4 [facility] Leukocytes [#/volume] correc blanca for nucleated erythrocytes in Blood by Automated counOrdered By: Bonnie Hendricks on 05-16-2022 WBC corrected for nucl RBC Auto (Bld) [#/Vol] 5.2 10*3/uL 3.8-11.6 [facility] Lymphocytes Auto (Bld) [#/Vo l]Ordered By: Bonnie Hendricks on 05-16-2022 Lymphocytes (Bld) [#/Vol] 1.4 10*3/uL 1.00-4.8 [facility] Lymphocytes/100 WBC Auto (Bl d)Ordered By: Bonnie Hendricks on 05-16-2022 Lymphocytes/100 WBC (Bld) 27.8 % . [facility] MCH Auto (RBC) [Entitic mass ]Ordered By: Bonnie Hendricks on 05-16-2022 MCH (RBC) [Entitic mass] 26.2 pg 24.7-34.3 [facility] MCHC Auto (RBC) [Mass/Vol]Or dered By: Bonnie Hendricks on 05-16-2022 MCHC (RBC) [Mass/Vol] 32.1 g/dL 32.0-35.0 [facility] MCV Auto (RBC) [Entitic vol] Ordered By: Bonnie Hendricks on 05-16-2022 MCV (RBC) [Entitic vol] 81.6 fL 80-100 [facility] Monocytes Auto (Bld) [#/Vol] Ordered By: Bonnie Hendricks on 05-16-2022 Monocytes (Bld) [#/Vol] 0.3 10*3/uL 0.0-0.8 [facility] Monocytes/100 WBC Auto (Bld) Ordered By: Bonnie Hendricks on 05-16-2022 Monocytes/100 WBC (Bld) 6.3 % . [facility] Neutrophils Auto (Bld) [#/Vo l]Ordered By: Bonnie Hendricks on 05-16-2022 Neutrophils (Bld) [#/Vol] 3.2 10*3/uL 1.8-7.7 [facility] Neutrophils/100 WBC Auto (Bl d)Ordered By: Bonnie Hendricks on 05-16-2022 Neutrophils/100 WBC (Bld) 62.5 % . [facility] No Panel InformationOrdered By: Bonnie Hendricks on 05-16-2022 Estimated GFR () > 60 mL/Min [facility] Comment on above: GFR estimated refere nce range: According to KDOQI guidelines, <60 ml/min/1.73m2 is sufficient to diagnose a patient with chronic kidney disease. Pharmacy Creatinine Clearance (Chem N/A [facility] Nucleated erythrocytes [Pres ence] in Blood by Automated countOrdered By: Bonnie Hendricks on 05-16-2022 Nucleated RBC Auto Ql (Bld) 0.1 /100{WBC} 0-0.5 [facility] Platelet mean volume Auto (B ld) [Entitic vol]Ordered By: Bonnie Hendricks on 05-16-2022 Platelet mean volume (Bld) [Entitic vol] 7.3 fL 6.3-10.7 [facility] Platelets Auto (Bld) [#/Vol] Ordered By: Bonnie Hendricks on 05-16-2022 Platelets (Bld) [#/Vol] 303 10*3/uL 150-450 [facility] Protein [Mass/volume] in Ser um or PlasmaOrdered By: Bonnie Hendricks on 05-16-2022 Protein [Mass/Vol] 8.3 g/dL 6.1-7.9 [facility] RBC Auto (Bld) [#/Vol]Ordere d By: Bonnie Hendricks on 05-16-2022 RBC (Bld) [#/Vol] 4.28 10*6/uL 3.60-5.00 [facility] Serum or plasma alanine de guzman otransferase measurement without P-5'-P (enzymatic activiOrdered By: Bonnie Hendricks on 05-16-2022 ALT No additional P-5'-P [Catalytic activity/Vol] 15 U/L 1060 [facility] Serum or plasma albumin/glob ulin mass ratioOrdered By: Bonnie Hendricks on 05-16-2022 Albumin/Globulin [Mass ratio] 0.7 {ratio} [facility] Serum or plasma alkaline david sphatase measurement (enzymatic activity/volume)Ordered By: Bonnie Hendricks on 05-16-2022 ALP [Catalytic activity/Vol] 96 U/L 32-92 [facility] Serum or plasma anion gap de terminationOrdered By: Bonnie Hendricks on 05-16-2022 Anion gap [Moles/Vol] 11.0 mmol/L 6.0-15.0 [facility] Serum or plasma aspartate am inotransferase measurement (enzymatic activity/volume)Ordered By: Bonnie Hendricks on 05-16-2022 AST [Catalytic activity/Vol] 18 U/L 1042 [facility] Serum or plasma calcium elias urement (mass/volume)Ordered By: Bonnie Hendricks on 05-16-2022 Calcium [Mass/Vol] 9.2 mg/dL 8.2-10.2 [facility] Serum or plasma cancer antig en 125 (CA-125) measurement (units/volume)Ordered By: Bonnie Hendricks on 05-16-2022 Cancer Ag 125 Qn 18.3 [arb'U]/mL 0.0-38.1 [facility] Comment on above: [facility] El ectrochemiluminescence Immunoassay(ECLIA)Values obtained with different assay methods or kits cannotbe used interchangeably. Results cannot be interpreted asabsolute evidence of the presence or absence of malignantdisease.Performed at: [facility] [id number] Director: Adrian Coello PhD, Phone: [phone] Serum or plasma chloride liset surement (moles/volume)Ordered By: Bonnie Hendricks on 05-16-2022 Chloride [Moles/Vol] 102 mmol/L 95-114 [facility] Serum or plasma glucose elias urement (mass/volume)Ordered By: Bonnie Hendricks on 05-16-2022 Glucose [Mass/Vol] 104 mg/dL 70-100 [facility] Comment on above: ADA recommended refe rence rangeRandom Glucose Reference Range is dependent on time and content of last meal. Glucose of more than 200 mg/dL in a nonstressed, ambulatory subject supports the diagnosis of Diabetes Mellitus. Serum or plasma potassium me asurement (moles/volume)Ordered By: Bonnie Hendricks on 05-16-2022 Potassium [Moles/Vol] 4.1 mmol/L 3.5-5.1 [facility] Serum or plasma sodium measu rement (moles/volume)Ordered By: Bonnie Hendricks on 05-16-2022 Sodium [Moles/Vol] 135 mmol/L 136-146 [facility] Serum or plasma total biliru bin measurement (mass/volume)Ordered By: Bonnie Hendricks on 05-16-2022 Bilirubin [Mass/Vol] 0.5 mg/dL 0.3-1.2 [facility] Serum or plasma total carbon dioxide measurement (moles/volume)Ordered By: Bonnie Hendricks on 05-16-2022 CO2 [Moles/Vol] 26.1 mmol/L 22.0-30.0 [facility] Serum or plasma urea nitroge n measurement (mass/volume)Ordered By: Bonnie Eladio on 05-16-2022 Urea nitrogen [Mass/Vol] 13 mg/dL 03-10 [facility] WBC Auto (Bld) [#/Vol]Ordere d By: Bonnie Hendricks on 05-16-2022 WBC (Bld) [#/Vol] 5.2 10*3/uL 3.8-11.6 [facility] CBC AUTO DIFFon 03-22-2022 BASO # 0.0 103/ul Normal 0.0-0.1 [facility] Comment on above: Performed By: #### C MP, BNP #### [facility] [address] [place] [address] [address] Sung Moore Basophils/100 WBC (Bld) 0.3 % Normal 0.2-2.0 [facility] Comment on above: Performed By: #### C MP, BNP #### [facility] [address] [place] [address] [address] Sung Moore EO # 0.4 103/ul Normal 0.0-0.7 [facility] Comment on above: Performed By: #### C MP, BNP #### [facility] [address] [place] [address] [address] Sung Moore Eosinophils/100 WBC (Bld) 5.6 % Normal 0.9-7.0 [facility] Comment on above: Performed By: #### C MP, BNP #### [facility] [address] [place] [address] [address] Sung Moore Erythrocyte distribution width (RBC) [Ratio] 16.0 % Critically high 11.0-15.0 [facility] Comment on above: Performed By: #### C MP, BNP #### [facility] [address] [place] [address] Dr. Sung Moore Hematocrit (Bld) [Volume fraction] 27.2 % Critically low 36.0-48.0 [facility] Comment on above: Performed By: #### C MP, BNP #### [facility] [address] [place] [address] [address] Sung Moore Hemoglobin (Bld) [Mass/Vol] 8.6 g/dL Critically low 12.0-16.0 [facility] Comment on above: Performed By: #### C MP, BNP #### [facility] [address] [place] [address] Dr. Sung Moore IG # 0.03 10e3/ul Normal 0.00-0.03 [facility] Comment on above: Performed By: #### C MP, BNP #### [facility] [address] [place] [address] Dr. Sung Moore IG % 0.5 % Normal 0.0-0.5 [facility] Comment on above: Performed By: #### C MP, BNP #### [facility] [address] [place] [address] Dr. Sung Moore LYMPH # 1.8 103/ul Normal 1.2-3.8 [facility] Comment on above: Performed By: #### C MP, BNP #### [facility] [address] [place] [address] Dr. Sung Moore Lymphocytes/100 WBC (Bld) 27.2 % Normal 20.5-60.0 [facility] Comment on above: Performed By: #### C MP, BNP #### [facility] [address] [place] [address] Dr. Sung Moore MANUAL DIFF REQ NO Normal [facility] Comment on above: Performed By: #### C MP, BNP #### [facility] [address] [place] [address] Dr. Sung Moore MCH (RBC) [Entitic mass] 25.9 pg Critically low 26.7-34.0 [facility] Comment on above: Performed By: #### C MP, BNP #### [facility] [address] [place] [address] Dr. Sung Moore MCHC (RBC) [Mass/Vol] 31.6 g/dL Normal 29.9-35.2 [facility] Comment on above: Performed By: #### C MP, BNP #### [facility] [address] [place] [address] Dr. Sung Moore MCV (RBC) [Entitic vol] 81.9 fL Normal 81.0-99.0 [facility] Comment on above: Performed By: #### C MP, BNP #### [facility] [address] [place] [address] Dr. Sung Moore MONO # 0.7 103/ul Normal 0.3-0.8 [facility] Comment on above: Performed By: #### C MP, BNP #### [facility] [address] [place] [address] Dr. Sung Moore Monocytes/100 WBC (Bld) 10.2 % Normal 1.7-12.0 [facility] Comment on above: Performed By: #### C MP, BNP #### [facility] [address] [place] [address] Dr. Sung Moore NEUT # 3.7 103/ul Normal 1.4-6.5 [facility] Comment on above: Performed By: #### C MP, BNP #### [facility] [address] [place] [address] Dr. Sung Moore Neutrophils/100 WBC (Bld) 56.2 % Normal 43.0-75.0 [facility] Comment on above: Performed By: #### C MP, BNP #### [facility] [address] [place] [address] Dr. Sung Moore Platelet mean volume (Bld) [Entitic vol] 8.7 fL Critically low 9.5-13.5 [facility] Comment on above: Performed By: #### C MP, BNP #### [facility] [address] [place] [address] Dr. Sung Moore PLT 370 103/ul Normal 150-450 [facility] Comment on above: Performed By: #### C MP, BNP #### [facility] [address] [place] [address] Dr. Sung Moore RBC 3.32 106/ul Critically low 4.20-5.40 [facility] Comment on above: Performed By: #### C MP, BNP #### [facility] [address] [place] [address] Dr. Sung Moore WBC 6.6 103/ul Normal 4.0-11.0 [facility] Comment on above: Performed By: #### C MP, BNP #### [facility] [address] [place] [address] Dr. Sung Moore CRPon 03-22-2022 CRP 13.2 mg/dL Critically high <=1.0 [facility] Comment on above: Performed By: #### C RP, CMP #### [facility] [address] [place] [address] Dr. Sung Moore CULTURE URINEon 03-22-2022 CULTURE [...] F Trimethoprim/Sulfamethoxa zole <=20 S F Normal [facility] Comment on above: Performed By: #### C RP, CMP #### [facility] [address] [place] [address] Dr. Sung Moore PROF 14(COMP METB)on 022 Albumin [Mass/Vol] 2.0 g/dL Critically low 3.4-5.0 [facility] Comment on above: Performed By: #### C RP, CMP #### [facility] [address] [place] [address] Dr. Sung Moore Albumin/Globulin [Mass ratio] 0.4 {ratio} Normal [facility] Comment on above: Performed By: #### C RP, CMP #### [facility] [address] [place] [address] Dr. Sung Moore ALP [Catalytic activity/Vol] 115 U/L Normal 46-116 [facility] Comment on above: Performed By: #### C RP, CMP #### [facility] [address] [place] [address] [address] Sung Moore ALT [Catalytic activity/Vol] 21 U/L Normal 14-59 [facility] Comment on above: Performed By: #### C RP, CMP #### [facility] [address] [place] [address] [address] Sung Moore Anion gap [Moles/Vol] 8.7 mmol/L Normal [facility] Comment on above: Performed By: #### C RP, CMP #### [facility] [address] [place] [address] [address] Sung Moore AST [Catalytic activity/Vol] 25 U/L Normal 15-37 [facility] Comment on above: Performed By: #### C RP, CMP #### [facility] [address] [place] [address] [address] Sung Moore Bilirubin [Mass/Vol] 0.2 mg/dL Normal 0.2-1.0 [facility] Comment on above: Performed By: #### C RP, CMP #### [facility] [address] [place] [address] [address] Sung Moore Calcium [Mass/Vol] 8.5 mg/dL Normal 8.5-10.1 [facility] Comment on above: Performed By: #### C RP, CMP #### [facility] [address] [place] [address] [address] Sung Moore Chloride [Moles/Vol] 105 mmol/L Normal 98-107 [facility] Comment on above: Performed By: #### C RP, CMP #### [facility] [address] [place] [address] [address] Sung Moore CO2 [Moles/Vol] 26.2 mmol/L Normal 21.0-32.0 [facility] Comment on above: Performed By: #### C RP, CMP #### [facility] [address] [place] [address] [address] Sung Moore Creatinine [Mass/Vol] 0.69 mg/dL Normal 0.55-1.02 [facility] Comment on above: Performed By: #### C RP, CMP #### [facility] [address] [place] [address] [address] Sung Moore EGFR-AF ARGENTINE >60 Normal >=[address] [facility] Comment on above: Performed By: #### C RP, CMP #### [facility] [address] [place] [address] Dr. Sung Moore EGFR-NON AF ARGENTINE >60 Normal >=60 [facility] Comment on above: Performed By: #### C RP, CMP #### [facility] [address] [place] [address] [address] Sung Moore Globulin (S) [Mass/Vol] 5.0 g/dL Normal [facility] Comment on above: Performed By: #### C RP, CMP #### [facility] [address] [place] [address] Dr. Sung Moore Glucose [Mass/Vol] 101 mg/dL Normal 74-106 [facility] Comment on above: Performed By: #### C RP, CMP #### [facility] [address] [place] [address] Dr. Sung Moore Potassium [Moles/Vol] 3.9 mmol/L Normal 3.5-5.1 [facility] Comment on above: Performed By: #### C RP, CMP #### [facility] [address] [place] [address] Dr. Sung Moore Protein [Mass/Vol] 7.0 g/dL Normal 6.4-8.2 [facility] Comment on above: Performed By: #### C RP, CMP #### [facility] [address] [place] [address] Dr. Sung Moore Sodium [Moles/Vol] 136 mmol/L Normal 136-145 [facility] Comment on above: Performed By: #### C RP, CMP #### [facility] [address] [place] [address] Dr. Sung Moore Urea nitrogen [Mass/Vol] 15.0 mg/dL Normal 7.0-18.0 [facility] Comment on above: Performed By: #### C RP, CMP #### [facility] [address] [place] [address] Dr. Sung Moore Urea nitrogen/Creatinine [Mass ratio] 21.7 mg/mg Normal [facility] Comment on above: Performed By: #### C RP, CMP #### [facility] [address] [place] [address] Dr. Sung Moore CBC AUTO DIFFon 03-21-2022 BASO # 0.0 103/ul Normal 0.0-0.1 [facility] Comment on above: Performed By: #### C MP, BNP #### [facility] [address] [place] [address] Dr. Sung Moore Basophils/100 WBC (Bld) 0.3 % Normal 0.2-2.0 [facility] Comment on above: Performed By: #### C MP, BNP #### [facility] [address] [place] [address] Dr. Sung Moore EO # 0.3 103/ul Normal 0.0-0.7 [facility] Comment on above: Performed By: #### C MP, BNP #### [facility] [address] [place] [address] Dr. Sung Moore Eosinophils/100 WBC (Bld) 2.6 % Normal 0.9-7.0 [facility] Comment on above: Performed By: #### C MP, BNP #### [facility] [address] [place] [address] Dr. Sung Moore Erythrocyte distribution width (RBC) [Ratio] 15.7 % Critically high 11.0-15.0 [facility] Comment on above: Performed By: #### C MP, BNP #### [facility] [address] [place] [address] Dr. Sung Moore Hematocrit (Bld) [Volume fraction] 26.8 % Critically low 36.0-48.0 [facility] Comment on above: Performed By: #### C MP, BNP #### [facility] [address] [place] [address] Dr. Sung Moore Hemoglobin (Bld) [Mass/Vol] 8.6 g/dL Critically low 12.0-16.0 [facility] Comment on above: Performed By: #### C MP, BNP #### [facility] [address] [place] [address] Dr. Sung Moore IG # 0.06 10e3/ul Critically high 0.00-0.03 [facility] Comment on above: Performed By: #### C MP, BNP #### [facility] [address] [place] [address] Dr. Sung Moore IG % 0.6 % Critically high 0.0-0.5 [facility] Comment on above: Performed By: #### C MP, BNP #### [facility] [address] [place] [address] Dr. Sung Moore LYMPH # 1.7 103/ul Normal 1.2-3.8 [facility] Comment on above: Performed By: #### C MP, BNP #### [facility] [address] [place] [address] Dr. Sung Moore Lymphocytes/100 WBC (Bld) 17.4 % Critically low 20.5-60.0 [facility] Comment on above: Performed By: #### C MP, BNP #### [facility] [address] [place] [address] Dr. Sung Moore MANUAL DIFF REQ NO Normal [facility] Comment on above: Performed By: #### C MP, BNP #### [facility] [address] [place] [address] Dr. Sung Moore MCH (RBC) [Entitic mass] 26.3 pg Critically low 26.7-34.0 [facility] Comment on above: Performed By: #### C MP, BNP #### [facility] [address] [place] [address] Dr. Sung Moore MCHC (RBC) [Mass/Vol] 32.1 g/dL Normal 29.9-35.2 [facility] Comment on above: Performed By: #### C MP, BNP #### [facility] [address] [place] [address] Dr. Sung Moore MCV (RBC) [Entitic vol] 82.0 fL Normal 81.0-99.0 [facility] Comment on above: Performed By: #### C MP, BNP #### [facility] [address] [place] [address] Dr. Sung Moore MONO # 1.1 103/ul Critically high 0.3-0.8 [facility] Comment on above: Performed By: #### C MP, BNP #### [facility] [address] [place] [address] Dr. Sung Moore Monocytes/100 WBC (Bld) 11.4 % Normal 1.7-12.0 [facility] Comment on above: Performed By: #### C MP, BNP #### [facility] [address] [place] [address] Dr. Sung Moore NEUT # 6.7 103/ul Critically high 1.4-6.5 [facility] Comment on above: Performed By: #### C MP, BNP #### [facility] [address] [place] [address] Dr. Sung Moore Neutrophils/100 WBC (Bld) 67.7 % Normal 43.0-75.0 [facility] Comment on above: Performed By: #### C MP, BNP #### [facility] [address] [place] [address] Dr. Sung Moore Platelet mean volume (Bld) [Entitic vol] 8.8 fL Critically low 9.5-13.5 [facility] Comment on above: Performed By: #### C MP, BNP #### [facility] [facility] [address] [place] [address] Dr. Sung Moore PLT 301 103/ul Normal 150-450 [facility] Comment on above: Performed By: #### C MP, BNP #### [facility] [address] [place] [address] Dr. Sung Moore RBC 3.27 106/ul Critically low 4.20-5.40 [facility] Comment on above: Performed By: #### C MP, BNP #### [facility] [address] [place] [address] Dr. Sung Moore WBC 9.8 103/ul Normal 4.0-11.0 [facility] Comment on above: Performed By: #### C MP, BNP #### [facility] [address] [place] [address] Dr. Sung Moore CRPon 03-21-2022 CRP 19.1 mg/dL Critically high <=1.0 [facility] Comment on above: Performed By: #### C MP, BNP #### [facility] [address] [place] [address] Dr. Sung Moore PROF 14(COMP METB)on 022 Albumin [Mass/Vol] 1.9 g/dL Critically low 3.4-5.0 [facility] Comment on above: Performed By: #### C MP, BNP #### [facility] [address] [place] [address] Dr. Sung Moore Albumin/Globulin [Mass ratio] 0.4 {ratio} Normal [facility] Comment on above: Performed By: #### C MP, BNP #### [facility] [address] [place] [address] Dr. Sung Moore ALP [Catalytic activity/Vol] 91 U/L Normal 46-116 [facility] Comment on above: Performed By: #### C MP, BNP #### [facility] [address] [place] [address] Dr. Sung Moore ALT [Catalytic activity/Vol] 14 U/L Normal 14-59 [facility] Comment on above: Performed By: #### C MP, BNP #### [facility] [address] [place] [address] Dr. Sung Moore Anion gap [Moles/Vol] 13.1 mmol/L Normal [facility] Comment on above: Performed By: #### C MP, BNP #### [facility] [address] [place] [address] Dr. Sung Moore AST [Catalytic activity/Vol] 23 U/L Normal 15-37 [facility] Comment on above: Performed By: #### C MP, BNP #### [facility] [address] [address] [address] Sung Moore Bilirubin [Mass/Vol] 0.3 mg/dL Normal 0.2-1.0 [facility] Comment on above: Performed By: #### C MP, BNP #### [facility] [address] [place] [address] Dr. Sung Moore Calcium [Mass/Vol] 8.6 mg/dL Normal 8.5-10.1 [facility] Comment on above: Performed By: #### C MP, BNP #### [facility] [address] [place] [address] Dr. Sung Moore Chloride [Moles/Vol] 105 mmol/L Normal 98-107 [facility] Comment on above: Performed By: #### C MP, BNP #### [facility] [address] [place] [address] Dr. Sung Moore CO2 [Moles/Vol] 21.7 mmol/L Normal 21.0-32.[address] [facility] Comment on above: Performed By: #### C MP, BNP #### [facility] [address] [place] [address] Dr. Sung Moore Creatinine [Mass/Vol] 0.67 mg/dL Normal 0.55-1.02 [facility] Comment on above: Performed By: #### C MP, BNP #### [facility] [address] [place] [address] Dr. Sung Moore EGFR-AF ARGENTINE >60 Normal >=60 [facility] Comment on above: Performed By: #### C MP, BNP #### [facility] [address] [place] [address] Dr. Sung Moore EGFR-NON AF ARGENTINE >60 Normal >=60 [facility] Comment on above: Performed By: #### C MP, BNP #### [facility] [address] [place] [address] Dr. Sung Moore Globulin (S) [Mass/Vol] 5.0 g/dL Normal [facility] Comment on above: Performed By: #### C MP, BNP #### [facility] [address] [address] [address] Sung Moore Glucose [Mass/Vol] 107 mg/dL Critically high 74-106 [facility] Comment on above: Performed By: #### C MP, BNP #### [facility] [address] [place] [address] Dr. Sung Moore Potassium [Moles/Vol] 3.8 mmol/L Normal 3.5-5.1 [facility] Comment on above: Performed By: #### C MP, BNP #### [facility] [address] [place] [address] Dr. Sung Moore Protein [Mass/Vol] 6.9 g/dL Normal 6.4-8.2 [facility] Comment on above: Performed By: #### C MP, BNP #### [facility] [address] [place] [address] Dr. Sung Moore Sodium [Moles/Vol] 136 mmol/L Normal 136-145 [facility] Comment on above: Performed By: #### C MP, BNP #### [facility] [address] [place] [address] Dr. Sung Moore Urea nitrogen [Mass/Vol] 10.0 mg/dL Normal 7.0-18.0 [facility] Comment on above: Performed By: #### C MP, BNP #### [facility] [address] [place] [address] Dr. Sung Moore Urea nitrogen/Creatinine [Mass ratio] 14.9 mg/mg Normal [facility] Comment on above: Performed By: #### C MP, BNP #### [facility] [address] [place] [address] Dr. Sung Moore CARDIAC CARL 3-6on 2 CK [Catalytic activity/Vol] 40 U/L Normal 26-192 [facility] Comment on above: Performed By: #### C RP, CMP #### [facility] [address] [place] [address] Dr. Sung Moore CK.MB [Mass/Vol] 0.81 ng/mL Normal <=3.60 [facility] Comment on above: Performed By: #### C RP, CMP #### [facility] [address] [place] [address] Dr. Sung Moore HSTROP 9.0 pg/mL Normal 4.0-51.3 [facility] Comment on above: Result Comment: CUT- OFF POINTS HAVE BEEN ESTABLISHED BASED ON THE FOURTH UNIVERSAL DEFINITIONS OF MYOCARDIAL INFARCTION. THE UPPER REFERENCE LIMIT (URL) OF TROPONIN, DEFINED THE 99TH PERCENTILE OF cTnI DISTRIBUTION IN A REFERENCE POPULATION, HAS BEEN CONFIRMED THE DECISION THRESHOLD FOR MO DIAGNOSIS. Performed By: #### C RP, CMP #### [facility] [address] [place] [address] Dr. Sung Moore CK [Catalytic activity/Vol] 42 U/L Normal 26-192 [facility] Comment on above: Performed By: #### C MP, BNP #### [facility] [address] [place] [address] Dr. Sung Moore CK.MB [Mass/Vol] 0.90 ng/mL Normal <=3.60 [facility] Comment on above: Performed By: #### C MP, BNP #### [facility] [address] [place] [address] Dr. Sung Moore HSTROP 9.7 pg/mL Normal 4.0-51.3 [facility] Comment on above: Result Comment: CUT- OFF POINTS HAVE BEEN ESTABLISHED BASED ON THE FOURTH UNIVERSAL DEFINITIONS OF MYOCARDIAL INFARCTION. THE UPPER REFERENCE LIMIT (URL) OF TROPONIN, DEFINED THE 99TH PERCENTILE OF cTnI DISTRIBUTION IN A REFERENCE POPULATION, HAS BEEN CONFIRMED THE DECISION THRESHOLD FOR MO DIAGNOSIS. Performed By: #### C MP, BNP #### [facility] [address] [place] [address] Dr. Sung Moore CARDIAC CARL ADMITon 022 CK [Catalytic activity/Vol] 44 U/L Normal 26-192 [facility] Comment on above: Performed By: #### L ACT #### [facility] [address] [place] [address] Dr. Sung Moore CK.MB [Mass/Vol] 0.47 ng/mL Normal <=3.60 [facility] Comment on above: Performed By: #### L ACT #### [facility] [address] [place] [address] Dr. Sung Moore HSTROP 9.1 pg/mL Normal 4.0-51.3 [facility] Comment on above: Result Comment: CUT- OFF POINTS HAVE BEEN ESTABLISHED BASED ON THE FOURTH UNIVERSAL DEFINITIONS OF MYOCARDIAL INFARCTION. THE UPPER REFERENCE LIMIT (URL) OF TROPONIN, DEFINED THE 99TH PERCENTILE OF cTnI DISTRIBUTION IN A REFERENCE POPULATION, HAS BEEN CONFIRMED THE DECISION THRESHOLD FOR MO DIAGNOSIS. Performed By: #### L ACT #### [facility] [address] [place] [address] Dr. Sung Moore CELESTINE 55 ng/mL Normal 9-82 [facility] Comment on above: Performed By: #### L ACT #### [facility] [address] [place] [address] Dr. Sung Moore CBC AUTO DIFFon 03-20-2022 BASO # 0.0 103/ul Normal 0.0-0.1 [facility] Comment on above: Performed By: #### C RP, CMP #### [facility] [address] [place] [address] Dr. Sung Moore Basophils/100 WBC (Bld) 0.2 % Normal 0.2-2.0 [facility] Comment on above: Performed By: #### C RP, CMP #### [facility] [address] [place] [address] Dr. Sung Moore EO # 0.1 103/ul Normal 0.0-0.7 [facility] Comment on above: Performed By: #### C RP, CMP #### [facility] [address] [place] [address] Dr. Sung Moore Eosinophils/100 WBC (Bld) 0.6 % Critically low 0.9-7.0 [facility] Comment on above: Performed By: #### C RP, CMP #### [facility] [address] [place] [address] Dr. Sung Moore Erythrocyte distribution width (RBC) [Ratio] 15.7 % Critically high 11.0-15.0 [facility] Comment on above: Performed By: #### C RP, CMP #### [facility] [address] [place] [address] Dr. Sung Moore Hematocrit (Bld) [Volume fraction] 25.7 % Critically low 36.0-48.0 [facility] Comment on above: Performed By: #### C RP, CMP #### [facility] [address] [place] [address] Dr. Sung Moore Hemoglobin (Bld) [Mass/Vol] 8.3 g/dL Critically low 12.0-16.0 [facility] Comment on above: Performed By: #### C RP, CMP #### [facility] [address] [place] [address] Dr. Sung Moore IG # 0.12 10e3/ul Critically high 0.00-0.03 [facility] Comment on above: Performed By: #### C RP, CMP #### [facility] [address] [place] [address] Dr. Sung Moore IG % 1.0 % Critically high 0.0-0.5 [facility] Comment on above: Performed By: #### C RP, CMP #### [facility] [address] [place] [address] Dr. Sung Moore LYMPH # 2.0 103/ul Normal 1.2-3.8 [facility] Comment on above: Performed By: #### C RP, CMP #### [facility] [address] [place] [address] Dr. Sung Moore Lymphocytes/100 WBC (Bld) 16.7 % Critically low 20.5-60.0 [facility] Comment on above: Performed By: #### C RP, CMP #### [facility] [address] [place] [address] Dr. Sung Moore MANUAL DIFF REQ NO Normal [facility] Comment on above: Performed By: #### C RP, CMP #### [facility] [address] [place] [address] Dr. Sung Moore MCH (RBC) [Entitic mass] 26.4 pg Critically low 26.7-34.0 [facility] Comment on above: Performed By: #### C RP, CMP #### [facility] [address] [address] [address] Sung Moore MCHC (RBC) [Mass/Vol] 32.3 g/dL Normal 29.9-35.2 [facility] Comment on above: Performed By: #### C RP, CMP #### [facility] [address] [place] [address] Dr. Sung Moore MCV (RBC) [Entitic vol] 81.8 fL Normal 81.0-99.0 [facility] Comment on above: Performed By: #### C RP, CMP #### [facility] [address] [place] [address] Dr. Sung Moore MONO # 1.3 103/ul Critically high 0.3-0.8 [facility] Comment on above: Performed By: #### C RP, CMP #### [facility] [address] [place] [address] Dr. Sung Moore Monocytes/100 WBC (Bld) 10.8 % Normal 1.7-12.0 [facility] Comment on above: Performed By: #### C RP, CMP #### [facility] [address] [place] [address] Dr. Sung Moore NEUT # 8.6 103/ul Critically high 1.4-6.5 [facility] Comment on above: Performed By: #### C RP, CMP #### [facility] [address] [place] [address] Dr. Sung Moore Neutrophils/100 WBC (Bld) 70.7 % Normal 43.0-75.0 [facility] Comment on above: Performed By: #### C RP, CMP #### [facility] [address] [place] [address] Dr. Sung Moore Platelet mean volume (Bld) [Entitic vol] 8.6 fL Critically low 9.5-13.5 [facility] Comment on above: Performed By: #### C RP, CMP #### [facility] [address] [address] [address] Sung Moore PLT 305 103/ul Normal 150-450 [facility] Comment on above: Performed By: #### C RP, CMP #### [facility] [address] [address] [address] Sung Moore RBC 3.14 106/ul Critically low 4.20-5.40 [facility] Comment on above: Performed By: #### C RP, CMP #### [facility] [address] [address] [address] Sung Moore WBC 12.1 103/ul Critically high 4.0-11.[address] [facility] Comment on above: Performed By: #### C RP, CMP #### [facility] [address] [address] [address] Sung Moore BASO # 0.0 103/ul Normal 0.0-0.1 [facility] Comment on above: Performed By: #### C MP, BNP #### [facility] [address] [address] [address] Sung Moore Basophils/100 WBC (Bld) 0.1 % Critically low 0.2-2.0 [facility] Comment on above: Performed By: #### C MP, BNP #### [facility] [address] [address] [address] Sung Moore EO # 0.0 103/ul Normal 0.0-0.7 [facility] Comment on above: Performed By: #### C MP, BNP #### [facility] [address] [address] [address] Sung Moore Eosinophils/100 WBC (Bld) 0.2 % Critically low 0.9-7.0 [facility] Comment on above: Performed By: #### C MP, BNP #### [facility] [address] [address] [address] Sung Moore Erythrocyte distribution width (RBC) [Ratio] 15.6 % Critically high 11.0-15.0 [facility] Comment on above: Performed By: #### C MP, BNP #### [facility] [address] [address] [address] Sung Moore Hematocrit (Bld) [Volume fraction] 30.2 % Critically low 36.0-48.0 [facility] Comment on above: Performed By: #### C MP, BNP #### [facility] [address] [place] [address] Dr. Sung Moore Hemoglobin (Bld) [Mass/Vol] 9.7 g/dL Critically low 12.0-16.0 [facility] Comment on above: Performed By: #### C MP, BNP #### [facility] [address] [place] [address] Dr. Sung Moore IG # 0.10 10e3/ul Critically high 0.00-0.03 [facility] Comment on above: Performed By: #### C MP, BNP #### [facility] [address] [place] [address] Dr. Sung Moore IG % 0.7 % Critically high 0.0-0.5 [facility] Comment on above: Performed By: #### C MP, BNP #### [facility] [address] [place] [address] Dr. Sung Moore LYMPH # 1.8 103/ul Normal 1.2-3.8 [facility] Comment on above: Performed By: #### C MP, BNP #### [facility] [address] [place] [address] Dr. Sung Moore Lymphocytes/100 WBC (Bld) 11.9 % Critically low 20.5-60.0 [facility] Comment on above: Performed By: #### C MP, BNP #### [facility] [address] [place] [address] Dr. Sung Moore MANUAL DIFF REQ NO Normal [facility] Comment on above: Performed By: #### C MP, BNP #### [facility] [address] [place] [address] Dr. Sung Moore MCH (RBC) [Entitic mass] 25.9 pg Critically low 26.7-34.0 [facility] Comment on above: Performed By: #### C MP, BNP #### [facility] [address] [place] [address] Dr. Sung Moore MCHC (RBC) [Mass/Vol] 32.1 g/dL Normal 29.9-35.2 [facility] Comment on above: Performed By: #### C MP, BNP #### [facility] [address] [place] [address] Dr. Sung Moore MCV (RBC) [Entitic vol] 80.7 fL Critically low 81.0-99.0 [facility] Comment on above: Performed By: #### C MP, BNP #### [facility] [address] [place] [address] Dr. Sung Moore MONO # 1.4 103/ul Critically high 0.3-0.8 [facility] Comment on above: Performed By: #### C MP, BNP #### [facility] [address] [place] [address] Dr. Sung Moore Monocytes/100 WBC (Bld) 9.3 % Normal 1.7-12.0 [facility] Comment on above: Performed By: #### C MP, BNP #### [facility] [address] [place] [address] Dr. Sung Moore NEUT # 11.7 103/ul Critically high 1.4-6.5 [facility] Comment on above: Performed By: #### C MP, BNP #### [facility] [address] [place] [address] Dr. Sung Moore Neutrophils/100 WBC (Bld) 77.8 % Critically high 43.0-75.0 [facility] Comment on above: Performed By: #### C MP, BNP #### [facility] [address] [place] [address] Dr. Sung Moore Platelet mean volume (Bld) [Entitic vol] 8.5 fL Critically low 9.5-13.5 [facility] Comment on above: Performed By: #### C MP, BNP #### [facility] [address] [place] [address] Dr. Sung Moore PLT 342 103/ul Normal 150-450 [facility] Comment on above: Performed By: #### C MP, BNP #### [facility] [address] [place] [address] Dr. Sung Moore RBC 3.74 106/ul Critically low 4.20-5.40 [facility] Comment on above: Performed By: #### C MP, BNP #### [facility] [address] [address] [address] Sung Moore WBC 15.1 103/ul Critically high 4.0-11.0 [facility] Comment on above: Performed By: #### C MP, BNP #### [facility] [address] [address] [address] Sung Moore CRPon 03-20-2022 CRP 57.7 mg/dL Critically high <=1.0 [facility] Comment on above: Performed By: #### L ACT #### [facility] [address] [address] [address] HEAD WO CONon [...] TARAS SAID Date: 2022-03-19 23:59 Normal [facility] Covid-19 PCR (CVDTB)on SARS-CoV-2 (COVID-19) RNA ROMY+probe Ql (Unsp spec) Not detected Normal NOT DETECTED [facility] Comment on above: Result Comment: When diagnostic [...] for this test is supported by the [place] of [employer] and Human Service's declaration that [...] Performed By: #### C RP, CMP #### [facility] [address] [place] [address] Dr. Sung Moore ER URINE PROFILEon 2 Bilirubin Ql (U) Negative Normal NEGATIVE [facility] Comment on above: Performed By: #### C MP, BNP #### [facility] [address] [place] [address] Dr. Sung Moore Clarity (U) CLEAR Normal CLEAR [facility] Comment on above: Performed By: #### C MP, BNP #### [facility] [address] [place] [address] Dr. Sung Moore Color (U) YELLOW Normal YELLOW [facility] Comment on above: Performed By: #### C MP, BNP #### [facility] [address] [place] [address] Dr. Sung Moore ERUAHD A micrscopic examina tion will be performed if indicated. Normal [facility] Comment on above: Performed By: #### C MP, BNP #### [facility] [address] [place] [address] Dr. Sung Moore Glucose Ql (U) Negative Normal NEGATIVE [facility] Comment on above: Performed By: #### C MP, BNP #### [facility] [address] [place] [address] Dr. Sung Moore Hemoglobin Ql (U) MODERATE Abnormal NEGATIVE [facility] Comment on above: Performed By: #### C MP, BNP #### [facility] [address] [place] [address] Dr. Sung Moore Ketones Ql (U) Negative Normal NEGATIVE [facility] Comment on above: Performed By: #### C MP, BNP #### [facility] [address] [place] [address] Dr. Sung Moore LEUKOCYTES LARGE Abnormal NEGATIVE [facility] Comment on above: Performed By: #### C MP, BNP #### [facility] [address] [place] [address] Dr. Sung Moore Nitrite Ql (U) Positive Abnormal NEGATIVE [facility] Comment on above: Performed By: #### C MP, BNP #### [facility] [address] [place] [address] Dr. Sung Moore pH (U) 6.0 [pH] Normal 5-9 [facility] Comment on above: Performed By: #### C MP, BNP #### [facility] [address] [place] [address] Dr. Sung Moore SPEC GRAVITY 1.015 Normal 1.005-<=1. 025 [facility] Comment on above: Performed By: #### C MP, BNP #### [facility] [address] [place] [address] Dr. Sung Moore UA PROTEIN Negative Normal NEGATIVE/ TRACE [facility] Comment on above: Performed By: #### C MP, BNP #### [facility] [address] [place] [address] Dr. Sung Moore UR MICRO IND INDICATED Normal [facility] Comment on above: Performed By: #### C MP, BNP #### [facility] [address] [place] [address] Dr. Sung Moore Urobilinogen Qn (U) 0.2 {David'U}/dL Normal 0.2 - 1. 0 [facility] Comment on above: Performed By: #### C MP, BNP #### [facility] [address] [place] [address] Dr. Sung Moore LACTATE/LACTIC ACIDon 2021 Lactate [Moles/Vol] 0.6 mmol/L Normal 0.4-1.9 [facility] Comment on above: Performed By: #### C RP, CMP #### [facility] [address] [address] [address] Sung Moore Lactate [Moles/Vol] 0.8 mmol/L Normal 0.4-1.9 [facility] Comment on above: Performed By: #### L ACT #### [facility] [address] [address] [address] Sung Moore POINT OF CARE GLUCOSEon 10-0 Glucose [Mass/Vol] 148 mg/dL Critically high 74-106 [facility] Comment on above: Performed By: #### L ACT #### [facility] [address] [place] [address] Dr. Sung Moore PROF CHEM 8 (BAS METB)on Anion gap [Moles/Vol] 10.6 mmol/L Normal [facility] Comment on above: Performed By: #### C MP, BNP #### [facility] [address] [place] [address] Dr. Sung Moore Calcium [Mass/Vol] 8.5 mg/dL Normal 8.5-10.1 [facility] [place] Comment on above: Performed By: #### C MP, BNP #### [facility] [address] [place] [address] Dr. Sung Moore Chloride [Moles/Vol] 102 mmol/L Normal 98-107 [facility] Comment on above: Performed By: #### C MP, BNP #### [facility] [address] [place] [address] Dr. Sung Moore CO2 [Moles/Vol] 24.8 mmol/L Normal 21.0-32.[address] [facility] Comment on above: Performed By: #### C MP, BNP #### [facility] [address] [place] [address] Dr. Sung Moore Creatinine [Mass/Vol] 0.77 mg/dL Normal 0.55-1.02 [facility] Comment on above: Performed By: #### C MP, BNP #### [facility] [address] [address] [address] Sung Moore EGFR-AF ARGENTINE >60 Normal >=[address] [facility] Comment on above: Performed By: #### C MP, BNP #### [facility] [address] [address] [address] Sung Moore EGFR-NON AF ARGENTINE >60 Normal >=60 [facility] Comment on above: Performed By: #### C MP, BNP #### [facility] [address] [address] [address] Sung Moore Glucose [Mass/Vol] 117 mg/dL Critically high 74-106 [facility] Comment on above: Performed By: #### C MP, BNP #### [facility] [address] [place] [address] Dr. Sung Moore Potassium [Moles/Vol] 3.4 mmol/L Critically low 3.5-5.1 [facility] Comment on above: Performed By: #### C MP, BNP #### [facility] [address] [place] [address] Dr. Sung Moore Sodium [Moles/Vol] 134 mmol/L Critically low 136-145 [facility] Comment on above: Performed By: #### C MP, BNP #### [facility] [address] [place] [address] Dr. Sung Mooer Urea nitrogen [Mass/Vol] 12.0 mg/dL Normal 7.0-18.0 [facility] Comment on above: Performed By: #### C MP, BNP #### [facility] [address] [place] [address] Dr. Sung Moore Urea nitrogen/Creatinine [Mass ratio] 15.6 mg/mg Normal [facility] Comment on above: Performed By: #### C MP, BNP #### [facility] [address] [place] [address] Dr. Sung Moore Anion gap [Moles/Vol] 13.7 mmol/L Normal [facility] Comment on above: Performed By: #### L ACT #### [facility] [address] [address] [address] Sung Moore Calcium [Mass/Vol] 8.7 mg/dL Normal 8.5-10.1 [facility] [place] Comment on above: Performed By: #### L ACT #### [facility] [address] [address] [address] Sung Moore Chloride [Moles/Vol] 93 mmol/L Critically low 98-107 [facility] Comment on above: Performed By: #### L ACT #### [facility] [address] [address] [address] Sung Moore CO2 [Moles/Vol] 23.3 mmol/L Normal 21.0-32.[address] [facility] Comment on above: Performed By: #### L ACT #### [facility] [address] [address] [address] Sung Moore Creatinine [Mass/Vol] 0.78 mg/dL Normal 0.55-1.02 [facility] Comment on above: Performed By: #### L ACT #### [facility] [address] [address] [address] Sung Moore EGFR-AF ARGENTINE >60 Normal >=[address] [facility] Comment on above: Performed By: #### L ACT #### [facility] [address] [place] [address] Dr. Sung Moore EGFR-NON AF ARGENTINE >60 Normal >=60 [facility] Comment on above: Performed By: #### L ACT #### [facility] [address] [address] [address] Sung Moore Glucose [Mass/Vol] 154 mg/dL Critically high 74-106 [facility] Comment on above: Performed By: #### L ACT #### [facility] [address] [address] [address] Sung Moore Potassium [Moles/Vol] 4.0 mmol/L Normal 3.5-5.1 [facility] Comment on above: Performed By: #### L ACT #### [facility] [address] [address] [address] Sung Moore Sodium [Moles/Vol] 126 mmol/L Critically low 136-145 [facility] Comment on above: Performed By: #### L ACT #### [facility] [address] [place] [address] Dr. Sung Moore Urea nitrogen [Mass/Vol] 15.0 mg/dL Normal 7.0-18.0 [facility] Comment on above: Performed By: #### L ACT #### [facility] [address] [place] [address] Dr. Sung Moore Urea nitrogen/Creatinine [Mass ratio] 19.2 mg/mg Normal [facility] Comment on above: Performed By: #### L ACT #### [facility] [address] [place] [address] Dr. Sung Moore URINE MICROSCOPIC ONLYon BACTERIA LARGE Abnormal NONE SEEN The [facility] Comment on above: Performed By: #### C MP, BNP #### [facility] [address] [place] [address] Dr. Sung Moore Bacteria identified Cx Nom (U) INDICATED Normal [facility] Comment on above: Performed By: #### C MP, BNP #### [facility] [address] [place] [address] Dr. Sung Moore CAST NONE SEEN Normal NONE SEEN [facility] Comment on above: Performed By: #### C MP, BNP #### [facility] [address] [place] [address] Dr. Sung Moore Crystals LM Nom (Urine sed) NONE SEEN Normal NONE SEEN The [facility] Comment on above: Performed By: #### C MP, BNP #### [facility] [address] [place] [address] Dr. Sung Moore Epithelial cells LM Ql (Urine sed) FEW Abnormal NONE SEEN /RARE [facility] Comment on above: Performed By: #### C MP, BNP #### [facility] [address] [place] [address] Dr. Sung Moore MUCOUS TRACE Abnormal NONE SEEN The [facility] Comment on above: Performed By: #### C MP, BNP #### [facility] [address] [address] [address] Sung Moore RBC 5-10 Abnormal 0-2 [facility] Comment on above: Performed By: #### C MP, BNP #### [facility] [address] [address] [address] Sung Moore WBC (U) [#/Vol] /uL Abnormal NONE SEEN The [facility] [place] Comment on above: Performed By: #### C MP, BNP #### [facility] [id number] [address] Sung Moore XR CHEST 1 Von [...] SAUNDRA LAGUERRE Date: 2022-03-19 23:56 Normal [facility] BASIC METABOLIC PANELon 07-1 Calcium [Mass/Vol] 8.8 mg/dL Normal 8.6-10.3 [facility] Comment on above: Order Comment: No: D o not add to previous draw Performed By: #### 4 1000, 17897, 93204 #### [facility] [address] [place] [address], [place] Chloride [Moles/Vol] 101 mmol/L Normal 98-107 [facility] Comment on above: Order Comment: No: D o not add to previous draw Performed By: #### 4 1000, 49675, 31433 #### [facility] [address] [place] [address], [place] CO2 [Moles/Vol] 29 mmol/L Normal 21-31 [facility] Comment on above: Order Comment: No: D o not add to previous draw Performed By: #### 4 1000, 93079, 93648 #### [facility] [address] [place] [address], [place] Creatinine [Mass/Vol] 0.54 mg/dL Low 0.60-1.20 [facility] Comment on above: Order Comment: No: D o not add to previous draw Performed By: #### 4 1000, 68510, 24736 #### [facility] [address] [place] [address], [place] GFR/1.73 sq M.predicted among blacks MDRD (S/P/Bld) [Vol rate/Area] mL/min/{1.73_m2} Normal >60 [facility] Comment on above: Order Comment: No: D o not add to previous draw Result Comment: Calc ulation may not be valid for patients over 70 years Performed By: #### 4 1000, , 39134 #### [facility] [address] [place] [address], [place] GFR/1.73 sq M.predicted among non-blacks MDRD (S/P/Bld) [Vol rate/Area] mL/min/{1.73_m2} Normal >60 [facility] Comment on above: Order Comment: No: D o not add to previous draw Result Comment: Calc ulation may not be valid for patients over 70 years Performed By: #### 4 999, , 82196 #### [facility] [address] [place] [address], [place] Glucose [Mass/Vol] 85 mg/dL Normal 70-100 [facility] Comment on above: Order Comment: No: D o not add to previous draw Performed By: #### 4 1000, 15060, 86604 #### [facility] [address] [place] [address], [place] Potassium [Moles/Vol] 4.3 mmol/L Normal 3.5-5.1 [facility] Comment on above: Order Comment: No: D o not add to previous draw Performed By: #### 4 1000, 94083, 02546 #### [facility] [address] [place] [address], [facility] Sodium [Moles/Vol] 135 mmol/L Low 136-145 [facility] Comment on above: Order Comment: No: D o not add to previous draw Performed By: #### 4 1000, , 16791 #### [facility] [address] [place] [id number], [facility] Urea nitrogen [Mass/Vol] 8 mg/dL Normal 7-25 [facility] Comment on above: Order Comment: No: D o not add to previous draw Performed By: #### 4 999, , #### [facility] [address] CBC COMPLETE BLOOD COUNTon 0 - Erythrocyte distribution width (RBC) [Ratio] 16.9 % High 11.5-15.0 [facility] Comment on above: Order Comment: No: D o not add to previous draw Performed By: #### 4 999, , 88871 #### [facility] [address] Hematocrit (Bld) [Volume fraction] 32.5 % Low 36.0-45.0 [facility] Comment on above: Order Comment: No: D o not add to previous draw Performed By: #### 4 999, , 77684 #### [facility] [address] [place] [address], [facility] Hemoglobin (Bld) [Mass/Vol] 10.3 g/dL Low 12.0-15.0 [facility] Comment on above: Order Comment: No: D o not add to previous draw Performed By: #### 4 1000, , 60571 #### [facility] [address] [place] [id number], [facility] MCH (RBC) [Entitic mass] 27.4 pg Normal 27.0-33.0 [facility] Comment on above: Order Comment: No: D o not add to previous draw Performed By: #### 4 1000, , 59217 #### [facility] [address] [place] [address], [facility] MCHC (RBC) [Mass/Vol] 31.7 g/dL Low 32.0-35.0 [facility] Comment on above: Order Comment: No: D o not add to previous draw Performed By: #### 4 1000, , 82231 #### [facility] [address] [place] [id number], [facility] MCV (RBC) [Entitic vol] 86.4 fL Normal 82.0-98.0 [facility] Comment on above: Order Comment: No: D o not add to previous draw Performed By: #### 4 1000, , #### [facility] [address] [place] [address], [facility] Nucleated RBC/100 WBC (Bld) [Ratio] 0 % Normal 0-0 [facility] Comment on above: Order Comment: No: D o not add to previous draw Performed By: #### 4 1000, , 83811 #### [facility] [address] [place] [address], [place] PLAT CNT 298 10*3/uL Normal 150-400 [facility] Comment on above: Order Comment: No: D o not add to previous draw Performed By: #### 4 1000, , 89006 #### [facility] [address] [place] [id number], [place] RBC (Bld) [#/Vol] 3.76 10*6/uL Low 3.80-5.00 [facility] Comment on above: Order Comment: No: D o not add to previous draw Performed By: #### 4 1000, , 30485 #### [facility] [address] [place] [id number], [place] WBC (Bld) [#/Vol] 6.86 10*3/uL Normal 4.00-10.60 [facility] Comment on above: Order Comment: No: D o not add to previous draw Performed By: #### 4 1000, 96520, 09853 #### [facility] [address] [facility] [place] [address], [facility] MAGNESIUM BLOODon 12-29-2021 Magnesium [Mass/Vol] 2.3 mg/dL Normal 1.9-2.7 [facility] Comment on above: Order Comment: No: D o not add to previous draw Performed By: #### 4 1000, 73762, 58341 #### [facility] [address] [place] [address], [facility] PHOSPHORUS BLOODon 2 Phosphate [Mass/Vol] 4.1 mg/dL Normal 2.5-5.0 [facility] Comment on above: Order Comment: No: D o not add to previous draw Performed By: #### 4 1000, 17618, 96368 #### [facility] [address] [facility] [place] [address], [facility] PORTABLE ABDOMENon 2 PORTABLE ABDOMEN [facility] Department of Radiology [address] [place] [id number] Patient Name: SABI SANTAMARIA : 1945 Sex: F Age: Race: Other Pt. Location: [id number] Patient Status: I Ordered Date: 12/29/2021 6:00:00 [...] remains. Electronically signed: Saundra Hyde. Transcribed by: [email or web address], User Resident: Electronically Signed by: SAUNDRA HYDE @ 12/29/2021 07:07 AM Normal [facility] Comment on above: Order Comment: No: D o not add to previous draw BASIC METABOLIC PANELon 12-16 Calcium [Mass/Vol] 8.6 mg/dL Normal 8.6-10.3 [facility] Comment on above: Order Comment: No: D o not add to previous draw Performed By: #### 4 999, , 53800 #### [facility] [address] [place] [address], [place] Chloride [Moles/Vol] 104 mmol/L Normal 98-107 [facility] Comment on above: Order Comment: No: D o not add to previous draw Performed By: #### 4 1000, 76497, 65427 #### [facility] [address] [place] [address], [place] CO2 [Moles/Vol] 27 mmol/L Normal 21-31 [facility] Comment on above: Order Comment: No: D o not add to previous draw Performed By: #### 4 1000, , 06742 #### [facility] [address] [place] [address], [place] Creatinine [Mass/Vol] 0.57 mg/dL Low 0.60-1.20 [facility] Comment on above: Order Comment: No: D o not add to previous draw Performed By: #### 4 1000, , 60469 #### [facility] [address] [place] [address], [place] GFR/1.73 sq M.predicted among blacks MDRD (S/P/Bld) [Vol rate/Area] mL/min/{1.73_m2} Normal >60 [facility] Comment on above: Order Comment: No: D o not add to previous draw Result Comment: Calc ulation may not be valid for patients over 70 years Performed By: #### 4 1000, , 38411 #### [facility] [address] [place] [address], [place] GFR/1.73 sq M.predicted among non-blacks MDRD (S/P/Bld) [Vol rate/Area] mL/min/{1.73_m2} Normal >60 [facility] Comment on above: Order Comment: No: D o not add to previous draw Result Comment: Calc ulation may not be valid for patients over 70 years Performed By: #### 4 1000, , 51062 #### [facility] [address] [place] [address], [place] Glucose [Mass/Vol] 117 mg/dL High 70-100 [facility] Comment on above: Order Comment: No: D o not add to previous draw Performed By: #### 4 1000, , 46095 #### [facility] [address] [place] [address], [place] Potassium [Moles/Vol] 4.4 mmol/L Normal 3.5-5.1 [facility] Comment on above: Order Comment: No: D o not add to previous draw Performed By: #### 4 1000, 59505, 88304 #### [facility] [address] [place] [address], [facility] Sodium [Moles/Vol] 137 mmol/L Normal 136-145 [facility] Comment on above: Order Comment: No: D o not add to previous draw Performed By: #### 4 1000, 70223, 87306 #### [facility] [address] [place] [address], [facility] Urea nitrogen [Mass/Vol] 4 mg/dL Low 7-25 [facility] Comment on above: Order Comment: No: D o not add to previous draw Performed By: #### 4 1000, , 25110 #### [facility] [address] [place] [address], [facility] CBC COMPLETE BLOOD COUNTon 0 - Erythrocyte distribution width (RBC) [Ratio] 17.0 % High 11.5-15.0 [facility] Comment on above: Order Comment: No: D o not add to previous draw Performed By: #### 8 2019 #### [facility] [address] [place] [address], [place] Hematocrit (Bld) [Volume fraction] 32.5 % Low 36.0-45.0 [facility] Comment on above: Order Comment: No: D o not add to previous draw Performed By: #### 8 3899 #### [facility] [address] [place] [address], [place] Hemoglobin (Bld) [Mass/Vol] 10.4 g/dL Low 12.0-15.0 [facility] Comment on above: Order Comment: No: D o not add to previous draw Performed By: #### 8 7909 #### [facility] [address] [place] [address], [place] MCH (RBC) [Entitic mass] 27.7 pg Normal 27.0-33.0 [facility] Comment on above: Order Comment: No: D o not add to previous draw Performed By: #### 8 5499 #### [facility] [address] [facility]. [address] MCHC (RBC) [Mass/Vol] 32.0 g/dL Normal 32.0-35.0 [facility] Comment on above: Order Comment: No: D o not add to previous draw Performed By: #### 8 5499 #### [facility] [address] [facility]. [address] MCV (RBC) [Entitic vol] 86.4 fL Normal 82.0-98.0 [facility] Comment on above: Order Comment: No: D o not add to previous draw Performed By: #### 8 5499 #### [facility] [address] Nucleated RBC/100 WBC (Bld) [Ratio] 0 % Normal 0-0 [facility] Comment on above: Order Comment: No: D o not add to previous draw Performed By: #### 8 5499 #### [facility] [address] [facility] [place] [address], [facility] PLAT CNT 259 10*3/uL Normal 150-400 [facility] Comment on above: Order Comment: No: D o not add to previous draw Performed By: #### 8 5499 #### [facility] [address] [facility] [place] [address], [facility] RBC (Bld) [#/Vol] 3.76 10*6/uL Low 3.80-5.00 [facility] Comment on above: Order Comment: No: D o not add to previous draw Performed By: #### 8 5499 #### [facility] [address] [place] [address], [facility] WBC (Bld) [#/Vol] 6.18 10*3/uL Normal 4.00-10.60 [facility] Comment on above: Order Comment: No: D o not add to previous draw Performed By: #### 8 5499 #### [facility] [address] [place] [address], [facility] MAGNESIUM BLOODon 12-28-2021 Magnesium [Mass/Vol] 2.1 mg/dL Normal 1.9-2.7 [facility] Comment on above: Order Comment: No: D o not add to previous draw Performed By: #### 4 1000, 57211, 13618 #### [facility] [address] [place] [address], [facility] PHOSPHORUS BLOODon Phosphate [Mass/Vol] 3.5 mg/dL Normal 2.5-5.0 [facility] Comment on above: Order Comment: No: D o not add to previous draw Performed By: #### 4 1000, 64172, 55346 #### [facility] [address] [place] [address], [facility] POC GLUCOSE LABon 12-28-2021 Glucose [Mass/Vol] 124 mg/dL High 70-100 [facility] Comment on above: Performed By: #### 8 5499 #### [facility] [address] [place] [address], [place] Glucose [Mass/Vol] 111 mg/dL High 70-100 [facility] Comment on above: Performed By: #### 8 5499 #### [facility] [address] [place] [address], [facility] BASIC METABOLIC PANELon 12-16 Calcium [Mass/Vol] 8.4 mg/dL Low 8.6-10.3 [facility] Comment on above: Order Comment: No: D o not add to previous draw Performed By: #### 4 1000, 58255, 14532 #### [facility] [address] [place] [address], [place] Chloride [Moles/Vol] 106 mmol/L Normal 98-107 [facility] Comment on above: Order Comment: No: D o not add to previous draw Performed By: #### 4 1000, 10104, 09537 #### [facility] [address] [place] [address], [place] CO2 [Moles/Vol] 23 mmol/L Normal 21-31 [facility] Comment on above: Order Comment: No: D o not add to previous draw Performed By: #### 4 1000, 46618, 92125 #### [facility] [address] [place] [address], [place] Creatinine [Mass/Vol] 0.52 mg/dL Low 0.60-1.20 [facility] Comment on above: Order Comment: No: D o not add to previous draw Performed By: #### 4 1000, , 80074 #### [facility] [address] [place] [address], [place] GFR/1.73 sq M.predicted among blacks MDRD (S/P/Bld) [Vol rate/Area] mL/min/{1.73_m2} Normal >60 [facility] Comment on above: Order Comment: No: D o not add to previous draw Result Comment: Calc ulation may not be valid for patients over 70 years Performed By: #### 4 1000, , 55492 #### [facility] [address] [place] [address], [place] GFR/1.73 sq M.predicted among non-blacks MDRD (S/P/Bld) [Vol rate/Area] mL/min/{1.73_m2} Normal >60 [facility] Comment on above: Order Comment: No: D o not add to previous draw Result Comment: Calc ulation may not be valid for patients over 70 years Performed By: #### 4 1000, 47593, [id number] #### [facility] [address] [place] [address], [place] Glucose [Mass/Vol] 119 mg/dL High 70-100 [facility] Comment on above: Order Comment: No: D o not add to previous draw Performed By: #### 4 1000, 87489, 02974 #### [facility] [address] [place] [address], [place] Potassium [Moles/Vol] 3.7 mmol/L Normal 3.5-5.1 [facility] Comment on above: Order Comment: No: D o not add to previous draw Performed By: #### 4 1000, , 80853 #### [facility] [address] [place] [address], [place] Sodium [Moles/Vol] 137 mmol/L Normal 136-145 [facility] Comment on above: Order Comment: No: D o not add to previous draw Performed By: #### 4 1000, , 39049 #### [facility] [address] [place] [address], [place] Urea nitrogen [Mass/Vol] 3 mg/dL Low 7-25 [facility] Comment on above: Order Comment: No: D o not add to previous draw Performed By: #### 4 1000, , 59690 #### [facility] [address] [place] [address], [place] CBC COMPLETE BLOOD COUNTon 0 12-27-2021 Erythrocyte distribution width (RBC) [Ratio] 16.5 % High 11.5-15.0 [facility] Comment on above: Order Comment: No: D o not add to previous draw Performed By: #### 4 1000, , 72506 #### [facility] [address] [place] [address], [place] Hematocrit (Bld) [Volume fraction] 31.4 % Low 36.0-45.0 [facility] Comment on above: Order Comment: No: D o not add to previous draw Performed By: #### 4 1000, , 22317 #### [facility] [address] [place] [address], [place] Hemoglobin (Bld) [Mass/Vol] 10.2 g/dL Low 12.0-15.0 [facility] Comment on above: Order Comment: No: D o not add to previous draw Performed By: #### 4 1000, , 92222 #### [facility] [address] [place] [address], [facility] MCH (RBC) [Entitic mass] 28.1 pg Normal 27.0-33.0 [facility] Comment on above: Order Comment: No: D o not add to previous draw Performed By: #### 4 1000, , 45541 #### [facility] [address] [place] [address], [facility] MCHC (RBC) [Mass/Vol] 32.5 g/dL Normal 32.0-35.0 [facility] Comment on above: Order Comment: No: D o not add to previous draw Performed By: #### 4 1000, , 66339 #### [facility] [address] [place] [address], [facility] MCV (RBC) [Entitic vol] 86.5 fL Normal 82.0-98.0 [facility] Comment on above: Order Comment: No: D o not add to previous draw Performed By: #### 4 1000, , 57572 #### [facility] [address] [facility] [place] [address], [facility] Nucleated RBC/100 WBC (Bld) [Ratio] 0 % Normal 0-0 [facility] Comment on above: Order Comment: No: D o not add to previous draw Performed By: #### 4 1000, , 19751 #### [facility] [address] [facility] [place] [address], [facility] PLAT CNT 230 10*3/uL Normal 150-400 [facility] Comment on above: Order Comment: No: D o not add to previous draw Performed By: #### 4 1000, , 16410 #### [facility] [address] [place] [address], [facility] RBC (Bld) [#/Vol] 3.63 10*6/uL Low 3.80-5.00 [facility] Comment on above: Order Comment: No: D o not add to previous draw Performed By: #### 4 1000, , 24439 #### [facility] [address] [place] [address], [facility] WBC (Bld) [#/Vol] 6.60 10*3/uL Normal 4.00-10.60 [facility] Comment on above: Order Comment: No: D o not add to previous draw Performed By: #### 4 1000, , 32654 #### [facility] [address] [place] [address], [facility] MAGNESIUM BLOODon 12-27-2021 Magnesium [Mass/Vol] 1.6 mg/dL Low 1.9-2.7 [facility] Comment on above: Order Comment: No: D o not add to previous draw Performed By: #### 4 1000, , 65029 #### [facility] [address] [place] [id number], [facility] PHOSPHORUS BLOODon 2 Phosphate [Mass/Vol] 3.2 mg/dL Normal 2.5-5.0 [facility] Comment on above: Order Comment: No: D o not add to previous draw Performed By: #### 4 1000, , 15579 #### [facility] [address] [place] [id number], [facility] POC GLUCOSE LABon 12-27-2021 Glucose [Mass/Vol] 124 mg/dL High 70-100 [facility] Comment on above: Performed By: #### 4 1000, , 74685 #### [facility] [address] [place] [id number], [place] Glucose [Mass/Vol] 127 mg/dL High 70-100 [facility] Comment on above: Performed By: #### 8 5499 #### [facility] [address] [place] [address], [place] Glucose [Mass/Vol] 127 mg/dL High 70-100 [facility] Comment on above: Performed By: #### 4 1000, 26659, 05732 #### [facility] [address] [place] [address], [place] Glucose [Mass/Vol] 124 mg/dL High 70-100 [facility] Comment on above: Performed By: #### 4 1000, 80630, 43085 #### [facility] [address] [place] [address], [place] BASIC METABOLIC PANELon 07- Calcium [Mass/Vol] 8.4 mg/dL Low 8.6-10.3 [facility] Comment on above: Order Comment: No: D o not add to previous draw Performed By: #### 8 5499 #### [facility] [address] [place] [address], [place] Chloride [Moles/Vol] 105 mmol/L Normal 98-107 [facility] Comment on above: Order Comment: No: D o not add to previous draw Performed By: #### 8 5499 #### [facility] [address] [place] [address], [place] CO2 [Moles/Vol] 27 mmol/L Normal 21-31 [facility] Comment on above: Order Comment: No: D o not add to previous draw Performed By: #### 8 5499 #### [facility] [address] [place] [address], [place] Creatinine [Mass/Vol] 0.52 mg/dL Low 0.60-1.20 [facility] Comment on above: Order Comment: No: D o not add to previous draw Performed By: #### 8 5499 #### [facility] [address] [place] [address], [place] GFR/1.73 sq M.predicted among blacks MDRD (S/P/Bld) [Vol rate/Area] mL/min/{1.73_m2} Normal >60 [facility] Comment on above: Order Comment: No: D o not add to previous draw Result Comment: Calc ulation may not be valid for patients over 70 years Performed By: #### 8 5499 #### [facility] [address] [place] [address], [place] GFR/1.73 sq M.predicted among non-blacks MDRD (S/P/Bld) [Vol rate/Area] mL/min/{1.73_m2} Normal >60 [facility] Comment on above: Order Comment: No: D o not add to previous draw Result Comment: Calc ulation may not be valid for patients over 70 years Performed By: #### 8 5499 #### [facility] [address] [place] [address], [place] Glucose [Mass/Vol] 114 mg/dL High 70-100 [facility] Comment on above: Order Comment: No: D o not add to previous draw Performed By: #### 8 5499 #### [facility] [address] [place] [address], [place] Potassium [Moles/Vol] 3.5 mmol/L Normal 3.5-5.1 [facility] Comment on above: Order Comment: No: D o not add to previous draw Performed By: #### 8 5499 #### [facility] [address] [place] [address], [place] Sodium [Moles/Vol] 137 mmol/L Normal 136-145 [facility] Comment on above: Order Comment: No: D o not add to previous draw Performed By: #### 8 5499 #### [facility] [address] [place] [address], [place] Urea nitrogen [Mass/Vol] 3 mg/dL Low 7-25 [facility] Comment on above: Order Comment: No: D o not add to previous draw Performed By: #### 8 5499 #### [facility] [address] CBC COMPLETE BLOOD COUNTon 0 - Erythrocyte distribution width (RBC) [Ratio] 16.6 % High 11.5-15.0 [facility] Comment on above: Order Comment: No: D o not add to previous draw Performed By: #### 4 1000, , 05222 #### [facility] [address] [place] [id number], [facility] Hematocrit (Bld) [Volume fraction] 30.5 % Low 36.0-45.0 [facility] Comment on above: Order Comment: No: D o not add to previous draw Performed By: #### 4 1000, , 10730 #### [facility] [address] [place] [id number], [facility] Hemoglobin (Bld) [Mass/Vol] 10.0 g/dL Low 12.0-15.0 [facility] Comment on above: Order Comment: No: D o not add to previous draw Performed By: #### 4 1000, , 14609 #### [facility] [address] [place] [address], [facility] MCH (RBC) [Entitic mass] 27.8 pg Normal 27.0-33.0 [facility] Comment on above: Order Comment: No: D o not add to previous draw Performed By: #### 4 1000, , 57282 #### [facility] [address] [place] [id number], [facility] MCHC (RBC) [Mass/Vol] 32.8 g/dL Normal 32.0-35.0 [facility] Comment on above: Order Comment: No: D o not add to previous draw Performed By: #### 4 1000, , 83978 #### [facility] [address] [place] [address], [place] MCV (RBC) [Entitic vol] 84.7 fL Normal 82.0-98.0 [facility] Comment on above: Order Comment: No: D o not add to previous draw Performed By: #### 4 1000, , 44821 #### [facility] [address] [place] [address], [place] Nucleated RBC/100 WBC (Bld) [Ratio] 0 % Normal 0-0 [facility] Comment on above: Order Comment: No: D o not add to previous draw Performed By: #### 4 1000, , 44407 #### [facility] [address] [place] [address], [place] PLAT CNT 221 10*3/uL Normal 150-400 [facility] Comment on above: Order Comment: No: D o not add to previous draw Performed By: #### 4 1000, , 05682 #### [facility] [address] [place] [address], [place] RBC (Bld) [#/Vol] 3.60 10*6/uL Low 3.80-5.00 [facility] Comment on above: Order Comment: No: D o not add to previous draw Performed By: #### 4 1000, , 15455 #### [facility] [address] [place] [address], [place] WBC (Bld) [#/Vol] 6.18 10*3/uL Normal 4.00-10.60 [facility] Comment on above: Order Comment: No: D o not add to previous draw Performed By: #### 4 1000, , 65730 #### [facility] [address] [place] [address], [place] POC GLUCOSE LABon 12-26-2021 Glucose [Mass/Vol] 125 mg/dL High 70-100 [facility] Comment on above: Performed By: #### 8 5499 #### [facility] [address] [place] [address], [place] Glucose [Mass/Vol] 196 mg/dL High 70-100 [facility] Comment on above: Performed By: #### 4 1000, 30746, 83516 #### [facility] [address] [place] [address], [place] Glucose [Mass/Vol] 110 mg/dL High 70-100 [facility] Comment on above: Performed By: #### 4 1000, , 56632 #### [facility] [address] [place] [address], [place] Glucose [Mass/Vol] 114 mg/dL High 70-100 [facility] Comment on above: Performed By: #### 8 5499 #### [facility] [address] [place] [address], [place] BASIC METABOLIC PANELon 07- 0-2021 Calcium [Mass/Vol] 8.4 mg/dL Low 8.6-10.3 [facility] Comment on above: Order Comment: No: D o not add to previous draw Performed By: #### 4 1000, , 74909 #### [facility] [address] [place] [address], [place] Chloride [Moles/Vol] 101 mmol/L Normal 98-107 [facility] Comment on above: Order Comment: No: D o not add to previous draw Performed By: #### 4 1000, , 25940 #### [facility] [address] [place] [address], [place] CO2 [Moles/Vol] 27 mmol/L Normal 21-31 [facility] Comment on above: Order Comment: No: D o not add to previous draw Performed By: #### 4 1000, , 79446 #### [facility] [address] [place] [address], [place] Creatinine [Mass/Vol] 0.54 mg/dL Low 0.60-1.20 [facility] Comment on above: Order Comment: No: D o not add to previous draw Performed By: #### 4 1000, 12175, 02302 #### [facility] [address] [place] [address], [place] GFR/1.73 sq M.predicted among blacks MDRD (S/P/Bld) [Vol rate/Area] mL/min/{1.73_m2} Normal >60 [facility] Comment on above: Order Comment: No: D o not add to previous draw Result Comment: Calc ulation may not be valid for patients over 70 years Performed By: #### 4 1000, , 52189 #### [facility] [address] [place] [address], [place] GFR/1.73 sq M.predicted among non-blacks MDRD (S/P/Bld) [Vol rate/Area] mL/min/{1.73_m2} Normal >60 [facility] Comment on above: Order Comment: No: D o not add to previous draw Result Comment: Calc ulation may not be valid for patients over 70 years Performed By: #### 4 1000, , 94074 #### [facility] [address] [place] [address], [place] Glucose [Mass/Vol] 109 mg/dL High 70-100 [facility] Comment on above: Order Comment: No: D o not add to previous draw Performed By: #### 4 1000, , 55856 #### [facility] [address] [place] [address], [place] Potassium [Moles/Vol] 3.4 mmol/L Low 3.5-5.1 [facility] Comment on above: Order Comment: No: D o not add to previous draw Performed By: #### 4 1000, , 33596 #### [facility] [address] [place] [address], [place] Sodium [Moles/Vol] 135 mmol/L Low 136-145 [facility] Comment on above: Order Comment: No: D o not add to previous draw Performed By: #### 4 1000, , 63494 #### [facility] [address] [place] [address], [facility] Urea nitrogen [Mass/Vol] 5 mg/dL Low 7-25 [facility] Comment on above: Order Comment: No: D o not add to previous draw Performed By: #### 4 1000, , 92430 #### [facility] [address] [place] [id number], [facility] CBC COMPLETE BLOOD COUNTon 0 12-25-2021 Erythrocyte distribution width (RBC) [Ratio] 16.5 % High 11.5-15.0 [facility] Comment on above: Order Comment: No: D o not add to previous draw Performed By: #### 4 999, , #### [facility] [address] [place] [address], [facility] Hematocrit (Bld) [Volume fraction] 30.6 % Low 36.0-45.0 [facility] Comment on above: Order Comment: No: D o not add to previous draw Performed By: #### 4 999, , 68366 #### [facility] [address] [place] [id number], [facility] Hemoglobin (Bld) [Mass/Vol] 9.9 g/dL Low 12.0-15.0 [facility] Comment on above: Order Comment: No: D o not add to previous draw Performed By: #### 4 999, , 91659 #### [facility] [address] [place] [id number], [place] MCH (RBC) [Entitic mass] 28.0 pg Normal 27.0-33.0 [facility] Comment on above: Order Comment: No: D o not add to previous draw Performed By: #### 4 999, , 88427 #### [facility] [address] [place] [address], [place] MCHC (RBC) [Mass/Vol] 32.4 g/dL Normal 32.0-35.0 [facility] Comment on above: Order Comment: No: D o not add to previous draw Performed By: #### 4 1000, 80739, 18621 #### [facility] [address] [place] [address], [facility] MCV (RBC) [Entitic vol] 86.4 fL Normal 82.0-98.0 [facility] Comment on above: Order Comment: No: D o not add to previous draw Performed By: #### 4 1000, , 07413 #### [facility] [address] [place] [id number], [facility] Nucleated RBC/100 WBC (Bld) [Ratio] 0 % Normal 0-0 [facility] Comment on above: Order Comment: No: D o not add to previous draw Performed By: #### 4 1000, , 61179 #### [facility] [address] [place] [address], [place] PLAT CNT 245 10*3/uL Normal 150-400 [facility] Comment on above: Order Comment: No: D o not add to previous draw Performed By: #### 4 1000, , 73248 #### [facility] [address] [place] [address], [facility] RBC (Bld) [#/Vol] 3.54 10*6/uL Low 3.80-5.00 [facility] Comment on above: Order Comment: No: D o not add to previous draw Performed By: #### 4 1000, , 09134 #### [facility] [address] [place] [address], [place] WBC (Bld) [#/Vol] 6.35 10*3/uL Normal 4.00-10.60 [facility] Comment on above: Order Comment: No: D o not add to previous draw Performed By: #### 4 1000, , 00392 #### [facility] [address] [place] [id number], [facility] POC GLUCOSE LABon 12-25-2021 Glucose [Mass/Vol] 163 mg/dL High 70-100 [facility] Comment on above: Performed By: #### 8 5499 #### [facility] [address] [facility] [place] [address], [facility] Glucose [Mass/Vol] 138 mg/dL High 70-100 [facility] Comment on above: Performed By: #### 4 1000, 89698, 06997 #### [facility] [address] [facility] [place] [address], [facility] Glucose [Mass/Vol] 114 mg/dL High 70-100 [facility] Comment on above: Performed By: #### 8 5499 #### [facility] [address] [facility] [place] [address], [facility] Glucose [Mass/Vol] 112 mg/dL High 70-100 [facility] Comment on above: Performed By: #### 8 5499 #### [facility] [address] [facility] [place] [address], [facility] ABDOMEN 1 on 12-24-2021 ABDOMEN 1 [facility] Department of Radiology [address] [place] [id number] Patient Name: SABI SANTAMARIA : 1945 Sex: F Age: Race: Other Pt. Location: [id number] Patient Status: I Ordered Date: 12/24/2021 5:00:00 [...] obstruction. Electronically signed: Shad Mortensen. Transcribed by: [email or web address], User Resident: Electronically Signed by: SHAD MORTENSEN @ 12/24/2021 10:23 AM Normal [facility] Comment on above: Order Comment: Song alcantara BASIC METABOLIC PANELon 07-0 Calcium [Mass/Vol] 8.2 mg/dL Low 8.6-10.3 [facility] Comment on above: Order Comment: No: D o not add to previous draw Performed By: #### 1 0070, 98969, 64262, 48926 #### [facility] [address] [place] [address], [place] Chloride [Moles/Vol] 100 mmol/L Normal 98-107 [facility] Comment on above: Order Comment: No: D o not add to previous draw Performed By: #### 1 0070, 75496, 70915, 68237 #### [facility] [address] [place] [address], [place] CO2 [Moles/Vol] 22 mmol/L Normal 21-31 [facility] Comment on above: Order Comment: No: D o not add to previous draw Performed By: #### 1 0070, 77371, 71819, 36109 #### [facility] [address] [place] [address], [place] Creatinine [Mass/Vol] 0.52 mg/dL Low 0.60-1.20 [facility] Comment on above: Order Comment: No: D o not add to previous draw Performed By: #### 1 0070, 78668, 52049, 29447 #### [facility] [address] [place] [address], [place] GFR/1.73 sq M.predicted among blacks MDRD (S/P/Bld) [Vol rate/Area] mL/min/{1.73_m2} Normal >60 [facility] Comment on above: Order Comment: No: D o not add to previous draw Result Comment: Calc ulation may not be valid for patients over 70 years Performed By: #### 1 0070, 18236, 14736, 50089 #### [facility] [address] [place] [address], [place] GFR/1.73 sq M.predicted among non-blacks MDRD (S/P/Bld) [Vol rate/Area] mL/min/{1.73_m2} Normal >60 [facility] Comment on above: Order Comment: No: D o not add to previous draw Result Comment: Calc ulation may not be valid for patients over 70 years Performed By: #### 1 0070, 00032, 54159, 07303 #### [facility] [address] [place] [address], [place] Glucose [Mass/Vol] 43 mg/dL Critically low 70-100 [facility] e [facility] Comment on above: Order Comment: No: D o not add to previous draw Result Comment: M-CR ITICAL RESULT(S) REVIEWED, CALLED TO AND READ BACK BY RAJAT DEVRIES RN @0635 12/24/21 Performed By: #### 1 0070, 69885, 51124, 12648 #### [facility] [address] [place] [address], [facility] Potassium [Moles/Vol] 3.9 mmol/L Normal 3.5-5.1 [facility] Comment on above: Order Comment: No: D o not add to previous draw Performed By: #### 1 0070, 37245, 14182, 74328 #### [facility] [address] [place] [address], [facility] Sodium [Moles/Vol] 135 mmol/L Low 136-145 [facility] Comment on above: Order Comment: No: D o not add to previous draw Performed By: #### 1 0070, 97584, 23810, 17626 #### [facility] [address] [place] [address], [facility] Urea nitrogen [Mass/Vol] 10 mg/dL Normal 7-25 [facility] Comment on above: Order Comment: No: D o not add to previous draw Performed By: #### 1 0070, 81091, 00985, 66566 #### [facility] [address] [place] [id number], [facility] CBC COMPLETE BLOOD COUNTon 0 - Erythrocyte distribution width (RBC) [Ratio] 16.7 % High 11.5-15.0 [facility] Comment on above: Order Comment: No: D o not add to previous draw Performed By: #### 4 999, , 63515 #### [facility] [address] [place] [address], [facility] Hematocrit (Bld) [Volume fraction] 30.8 % Low 36.0-45.0 [facility] Comment on above: Order Comment: No: D o not add to previous draw Performed By: #### 4 999, , 46655 #### [facility] [address] [place] [address], [place] Hemoglobin (Bld) [Mass/Vol] 9.7 g/dL Low 12.0-15.0 [facility] Comment on above: Order Comment: No: D o not add to previous draw Performed By: #### 4 1000, , 90952 #### [facility] [address] [place] [address], [facility] MCH (RBC) [Entitic mass] 27.8 pg Normal 27.0-33.0 [facility] Comment on above: Order Comment: No: D o not add to previous draw Performed By: #### 4 1000, , 37711 #### [facility] [address] [place] [id number], [facility] MCHC (RBC) [Mass/Vol] 31.5 g/dL Low 32.0-35.0 [facility] Comment on above: Order Comment: No: D o not add to previous draw Performed By: #### 4 1000, , 75377 #### [facility] [address] [place] [address], [facility] MCV (RBC) [Entitic vol] 88.3 fL Normal 82.0-98.0 [facility] Comment on above: Order Comment: No: D o not add to previous draw Performed By: #### 4 1000, , 85026 #### [facility] [address] [place] [address], [facility] Nucleated RBC/100 WBC (Bld) [Ratio] 0 % Normal 0-0 [facility] Comment on above: Order Comment: No: D o not add to previous draw Performed By: #### 4 1000, , 08195 #### [facility] [address] [place] [id number], [place] PLAT CNT 238 10*3/uL Normal 150-400 [facility] Comment on above: Order Comment: No: D o not add to previous draw Performed By: #### 4 1000, , 78708 #### [facility] [address] [place] [id number], [facility] RBC (Bld) [#/Vol] 3.49 10*6/uL Low 3.80-5.00 [facility] Comment on above: Order Comment: No: D o not add to previous draw Performed By: #### 4 1000, 09128, 40775 #### [facility] [address] [place] [address], [facility] WBC (Bld) [#/Vol] 9.13 10*3/uL Normal 4.00-10.60 [facility] Comment on above: Order Comment: No: D o not add to previous draw Performed By: #### 4 1000, 85223, 96852 #### [facility] [address] [place] [address], [facility] LIVER BATTERYon 12-24-2021 Albumin [Mass/Vol] 2.9 g/dL Low 3.5-5.7 [facility] Comment on above: Order Comment: No: D o not add to previous draw Performed By: #### 1 0070, 68742, 66188, 44985 #### [facility] [address] [place] [address], [place] ALKALINE PHOSPH 65 IU/L Normal 34-104 [facility] Comment on above: Order Comment: No: D o not add to previous draw Performed By: #### 1 0070, 96880, 68518, 39268 #### [facility] [address] [place] [address], [place] ALT [Catalytic activity/Vol] 8 U/L Normal 7-52 [facility] Comment on above: Order Comment: No: D o not add to previous draw Performed By: #### 1 0070, 72715, 75613, 72074 #### [facility] [address] [place] [address], [place] AST [Catalytic activity/Vol] 19 U/L Normal 13-39 [facility] Comment on above: Order Comment: No: D o not add to previous draw Performed By: #### 1 0070, 88913, 88965, 39561 #### [facility] [address] [place] [address], [place] Bilirubin [Mass/Vol] 0.7 mg/dL Normal 0.3-1.0 [facility] Comment on above: Order Comment: No: D o not add to previous draw Performed By: #### 1 0070, 79156, 04033, 71728 #### [facility] [address] [place] [address], [place] Bilirubin.direct [Mass/Vol] 0.2 mg/dL Normal 0.0-0.2 [facility] Comment on above: Order Comment: No: D o not add to previous draw Performed By: #### 1 0070, 33640, 32838, 80904 #### [facility] [address] [place] [address], [facility] Protein [Mass/Vol] 5.9 g/dL Low 6.0-8.3 [facility] Comment on above: Order Comment: No: D o not add to previous draw Performed By: #### 1 0070, 70181, 39943, 91202 #### [facility] [address] [place] [address], [facility] MAGNESIUM BLOODon 12-24-2021 Magnesium [Mass/Vol] 1.8 mg/dL Low 1.9-2.7 [facility] Comment on above: Order Comment: No: D o not add to previous draw Performed By: #### 1 0070, 42448, 68179, 03782 #### [facility] [address] [place] [address], [place] PHOSPHORUS BLOODon Phosphate [Mass/Vol] 3.1 mg/dL Normal 2.5-5.0 [facility] Comment on above: Order Comment: No: D o not add to previous draw Performed By: #### 1 0070, 65781, 89290, 98881 #### [facility] [address] [place] [address], [place] POC GLUCOSE LABon 12-24-2021 Glucose [Mass/Vol] 101 mg/dL High 70-100 [facility] Comment on above: Performed By: #### 8 5499 #### [facility] [address] [place] [address], [place] Glucose [Mass/Vol] 82 mg/dL Normal 70-100 [facility] Comment on above: Performed By: #### 4 1000, 14451, 67936 #### [facility] [address] [place] [address], [place] Glucose [Mass/Vol] 81 mg/dL Normal 70-100 [facility] Comment on above: Performed By: #### 8 5499 #### [facility] [address] [place] [address], [place] Glucose [Mass/Vol] 59 mg/dL Low 70-100 [facility] Comment on above: Performed By: #### 8 5499 #### [facility] [address] [place] [address], [place] BASIC METABOLIC PANELon 07-0 Calcium [Mass/Vol] 8.0 mg/dL Low 8.6-10.3 [facility] Comment on above: Order Comment: No: D o not add to previous draw Performed By: #### 8 5499 #### [facility] [address] [place] [address], [place] Chloride [Moles/Vol] 102 mmol/L Normal 98-107 [facility] Comment on above: Order Comment: No: D o not add to previous draw Performed By: #### 8 5499 #### [facility] [address] [place] [address], [place] CO2 [Moles/Vol] 26 mmol/L Normal 21-31 [facility] Comment on above: Order Comment: No: D o not add to previous draw Performed By: #### 8 5499 #### [facility] [address] [place] [address], [place] Creatinine [Mass/Vol] 0.58 mg/dL Low 0.60-1.20 [facility] Comment on above: Order Comment: No: D o not add to previous draw Performed By: #### 8 5499 #### [facility] [address] [place] [address], [place] GFR/1.73 sq M.predicted among blacks MDRD (S/P/Bld) [Vol rate/Area] mL/min/{1.73_m2} Normal >60 [facility] Comment on above: Order Comment: No: D o not add to previous draw Result Comment: Calc ulation may not be valid for patients over 70 years Performed By: #### 8 5499 #### [facility] [address] [place] [address], [facility] GFR/1.73 sq M.predicted among non-blacks MDRD (S/P/Bld) [Vol rate/Area] mL/min/{1.73_m2} Normal >60 [facility] Comment on above: Order Comment: No: D o not add to previous draw Result Comment: Calc ulation may not be valid for patients over 70 years Performed By: #### 8 5499 #### [facility] [address] [place] [address], [place] Glucose [Mass/Vol] 78 mg/dL Normal 70-100 [facility] Comment on above: Order Comment: No: D o not add to previous draw Performed By: #### 8 5499 #### [facility] [address] [place] [address], [place] Potassium [Moles/Vol] 3.6 mmol/L Normal 3.5-5.1 [facility] Comment on above: Order Comment: No: D o not add to previous draw Performed By: #### 8 5499 #### [facility] [address] [place] [address], [place] Sodium [Moles/Vol] 134 mmol/L Low 136-145 [facility] Comment on above: Order Comment: No: D o not add to previous draw Performed By: #### 8 5499 #### [facility] [address] [place] [address], [facility] Urea nitrogen [Mass/Vol] 14 mg/dL Normal 7-25 [facility] Comment on above: Order Comment: No: D o not add to previous draw Performed By: #### 8 5499 #### [facility] [address] CBC COMPLETE BLOOD COUNTon 0 12-23-2021 Erythrocyte distribution width (RBC) [Ratio] 17.1 % High 11.5-15.0 [facility] Comment on above: Order Comment: No: D o not add to previous draw Performed By: #### 4 1000, , 55432 #### [facility] [address] Hematocrit (Bld) [Volume fraction] 28.4 % Low 36.0-45.0 [facility] Comment on above: Order Comment: No: D o not add to previous draw Performed By: #### 4 1000, , 69690 #### [facility] [address] [place] [address], [facility] Hemoglobin (Bld) [Mass/Vol] 9.3 g/dL Low 12.0-15.0 [facility] Comment on above: Order Comment: No: D o not add to previous draw Performed By: #### 4 1000, , 17152 #### [facility] [address] [place] [address], [place] MCH (RBC) [Entitic mass] 28.2 pg Normal 27.0-33.0 [facility] Comment on above: Order Comment: No: D o not add to previous draw Performed By: #### 4 1000, , 70076 #### [facility] [address] [place] [id number], [facility] MCHC (RBC) [Mass/Vol] 32.7 g/dL Normal 32.0-35.0 [facility] Comment on above: Order Comment: No: D o not add to previous draw Performed By: #### 4 1000, , 21116 #### [facility] [address] [place] [address], [facility] MCV (RBC) [Entitic vol] 86.1 fL Normal 82.0-98.0 [facility] Comment on above: Order Comment: No: D o not add to previous draw Performed By: #### 4 1000, , 71937 #### [facility] [address] [place] [address], [facility] Nucleated RBC/100 WBC (Bld) [Ratio] 0 % Normal 0-0 [facility] Comment on above: Order Comment: No: D o not add to previous draw Performed By: #### 4 1000, , 57509 #### [facility] [address] [place] [address], [facility] PLAT CNT 193 10*3/uL Normal 150-400 [facility] Comment on above: Order Comment: No: D o not add to previous draw Performed By: #### 4 1000, , 12069 #### [facility] [address] [place] [address], [facility] RBC (Bld) [#/Vol] 3.30 10*6/uL Low 3.80-5.00 [facility] Comment on above: Order Comment: No: D o not add to previous draw Performed By: #### 4 1000, , 66261 #### [facility] [address] [place] [address], [place] WBC (Bld) [#/Vol] 9.87 10*3/uL Normal 4.00-10.60 [facility] Comment on above: Order Comment: No: D o not add to previous draw Performed By: #### 4 1000, , 64215 #### [facility] ABDOMEN AND PELVIS W IV A ND ORAL CONTRASTon 12-23-2021 CT ABDOMEN AND PELVIS W IV AND ORAL CONTRAST [facility] Department of Radiology [address] [place] [id number] Patient Name: SABI SANTAMARIA : 1945 Sex: F Age: Race: Other Pt. Location: [id number] Patient Status: I Ordered Date: 12/23/2021 9:05:00 [...] anasarca. Electronically signed: Saundra Hyde. Transcribed by: [email or web address], User Resident: Electronically Signed by: SAUNDRA HYDE @ 12/23/2021 12:49 PM Normal [facility] Comment on above: Order Comment: No: D o not add to previous draw MAGNESIUM BLOODon 12-23-2021 Magnesium [Mass/Vol] 2.0 mg/dL Normal 1.9-2.7 [facility] Comment on above: Order Comment: No: D o not add to previous draw Performed By: #### 8 5499 #### [facility] [address] [place] [address], [facility] PHOSPHORUS BLOODon Phosphate [Mass/Vol] 2.9 mg/dL Normal 2.5-5.0 [facility] Comment on above: Order Comment: No: D o not add to previous draw Performed By: #### 8 5499 #### [facility] [address] [place] [address], [place] BASIC METABOLIC PANELon 07-0 -2021 Calcium [Mass/Vol] 8.2 mg/dL Low 8.6-10.3 [facility] Comment on above: Order Comment: No: D o not add to previous draw Performed By: #### 8 5499 #### [facility] [address] [place] [address], [place] Chloride [Moles/Vol] 102 mmol/L Normal 98-107 [facility] Comment on above: Order Comment: No: D o not add to previous draw Performed By: #### 8 5499 #### [facility] [address] [place] [address], [place] CO2 [Moles/Vol] 25 mmol/L Normal 21-31 [facility] Comment on above: Order Comment: No: D o not add to previous draw Performed By: #### 8 5499 #### [facility] [address] [place] [address], [place] Creatinine [Mass/Vol] 0.65 mg/dL Normal 0.60-1.20 [facility] Comment on above: Order Comment: No: D o not add to previous draw Performed By: #### 8 5499 #### [facility] [address] [place] [address], [place] GFR/1.73 sq M.predicted among blacks MDRD (S/P/Bld) [Vol rate/Area] mL/min/{1.73_m2} Normal >60 [facility] Comment on above: Order Comment: No: D o not add to previous draw Result Comment: Calc ulation may not be valid for patients over 70 years Performed By: #### 8 5499 #### [facility] [address] [place] [address], [facility] GFR/1.73 sq M.predicted among non-blacks MDRD (S/P/Bld) [Vol rate/Area] mL/min/{1.73_m2} Normal >60 [facility] Comment on above: Order Comment: No: D o not add to previous draw Result Comment: Calc ulation may not be valid for patients over 70 years Performed By: #### 8 5499 #### [facility] [address] [place] [address], [facility] Glucose [Mass/Vol] 124 mg/dL High 70-100 [facility] Comment on above: Order Comment: No: D o not add to previous draw Performed By: #### 8 5499 #### [facility] [address] [place] [address], [facility] Potassium [Moles/Vol] 3.5 mmol/L Normal 3.5-5.1 [facility] Comment on above: Order Comment: No: D o not add to previous draw Performed By: #### 8 5499 #### [facility] [address] [place] [address], [facility] Sodium [Moles/Vol] 135 mmol/L Low 136-145 [facility] Comment on above: Order Comment: No: D o not add to previous draw Performed By: #### 8 5499 #### [facility] [address] [place] [address], [facility] Urea nitrogen [Mass/Vol] 19 mg/dL Normal 7-25 [facility] Comment on above: Order Comment: No: D o not add to previous draw Performed By: #### 8 5499 #### [facility] [address] [place] [address], [facility] CBC COMPLETE BLOOD COUNTon 0 - Erythrocyte distribution width (RBC) [Ratio] 16.7 % High 11.5-15.0 [facility] Comment on above: Order Comment: No: D o not add to previous draw Performed By: #### 4 1000, , 57780 #### [facility] [address] [place] [address], [facility] Hematocrit (Bld) [Volume fraction] 31.8 % Low 36.0-45.0 [facility] Comment on above: Order Comment: No: D o not add to previous draw Performed By: #### 4 1000, , 44222 #### [facility] [address] [place] [id number], [facility] Hemoglobin (Bld) [Mass/Vol] 10.2 g/dL Low 12.0-15.0 [facility] Comment on above: Order Comment: No: D o not add to previous draw Performed By: #### 4 1000, , #### [facility] [address] [place] [address], [facility] MCH (RBC) [Entitic mass] 27.8 pg Normal 27.0-33.0 [facility] Comment on above: Order Comment: No: D o not add to previous draw Performed By: #### 4 999, , 75148 #### [facility] [address] [place] [address], [facility] MCHC (RBC) [Mass/Vol] 32.1 g/dL Normal 32.0-35.0 [facility] Comment on above: Order Comment: No: D o not add to previous draw Performed By: #### 4 1000, , 56243 #### [facility] [address] [place] [id number], [facility] MCV (RBC) [Entitic vol] 86.6 fL Normal 82.0-98.0 [facility] Comment on above: Order Comment: No: D o not add to previous draw Performed By: #### 4 1000, , 19441 #### [facility] [address] [place] [id number], [facility] Nucleated RBC/100 WBC (Bld) [Ratio] 0 % Normal 0-0 [facility] Comment on above: Order Comment: No: D o not add to previous draw Performed By: #### 4 1000, 34769, 10705 #### [facility] [address] [place] [address], [facility] PLAT CNT 224 10*3/uL Normal 150-400 [facility] Comment on above: Order Comment: No: D o not add to previous draw Performed By: #### 4 1000, 47305, 88334 #### [facility] [address] [place] [address], [facility] RBC (Bld) [#/Vol] 3.67 10*6/uL Low 3.80-5.00 [facility] Comment on above: Order Comment: No: D o not add to previous draw Performed By: #### 4 1000, 17771, 34542 #### [facility] [address] [place] [address], [facility] WBC (Bld) [#/Vol] 10.68 10*3/uL High 4.00-10.60 [facility] Comment on above: Order Comment: No: D o not add to previous draw Performed By: #### 4 1000, 15892, 69368 #### [facility] [address] [place] [address], [facility] MAGNESIUM BLOODon 12-22-2021 Magnesium [Mass/Vol] 1.8 mg/dL Low 1.9-2.7 [facility] Comment on above: Order Comment: No: D o not add to previous draw Performed By: #### 8 2769 #### [facility] [address] [place] [address], [facility] PHOSPHORUS BLOODon 2 Phosphate [Mass/Vol] 3.2 mg/dL Normal 2.5-5.0 [facility] Comment on above: Order Comment: No: D o not add to previous draw Performed By: #### 8 6916 #### [facility] [address] *URINE CULTUREon 12-21-2021 *URINE CULTURE Clinical Report: (D) Specimen/Source: URINE/CLEAN VOID URINE Collected: 12/21/2021 18:00 Status: Final Last Updated: 12/23/2021 08:30 ISO (Final) Citrobacter koseri >100,000 Cfu/Ml ISOLATE: Citrobacter koseri MAHENDRA (mcg/ml) AMP./SULBAC (AMS) 4/2 Susceptible AMPICILLIN (AM) >16 Resistant AZTREONAM (AZM) <=2 Susceptible CEFAZOLIN (CZ) <=1 Susceptible CEFTRIAXONE (DEALERSH[employer] MANAGER) <=1 Susceptible CIPROFLOXACIN (CIP) <=0.25 Susceptible GENTAMICIN (GM) <=2 Susceptible NITROFURANTOIN (FT) 64 Intermediate PIP/TAZO (TZP) 4/4 Susceptible TOBRAMYCIN (TOB) <=2 Susceptible TRIMETH/SULFA (SXT) <=0.5/9.5 Susceptible Normal [facility] Comment on above: Performed By: #### 8 5499 #### [facility] [address] BASIC METABOLIC PANELon Calcium [Mass/Vol] 8.8 mg/dL Normal 8.6-10.3 [facility] Comment on above: Order Comment: No: D o not add to previous draw Performed By: #### 4 999, 57161, 30761 #### [facility] [address] [place] [address], [facility] Chloride [Moles/Vol] 102 mmol/L Normal 98-107 [facility] Comment on above: Order Comment: No: D o not add to previous draw Performed By: #### 4 1000, 73247, 08496 #### [facility] [address] [place] [address], [facility] CO2 [Moles/Vol] 26 mmol/L Normal 21-31 [facility] Comment on above: Order Comment: No: D o not add to previous draw Performed By: #### 4 1000, , 28236 #### [facility] [address] [place] [address], [place] Creatinine [Mass/Vol] 0.57 mg/dL Low 0.60-1.20 [facility] Comment on above: Order Comment: No: D o not add to previous draw Performed By: #### 4 1000, , 81081 #### [facility] [address] [place] [address], [facility] GFR/1.73 sq M.predicted among blacks MDRD (S/P/Bld) [Vol rate/Area] mL/min/{1.73_m2} Normal >60 [facility] Comment on above: Order Comment: No: D o not add to previous draw Result Comment: Calc ulation may not be valid for patients over 70 years Performed By: #### 4 999, , 07310 #### [facility] [address] [place] [id number], [facility] GFR/1.73 sq M.predicted among non-blacks MDRD (S/P/Bld) [Vol rate/Area] mL/min/{1.73_m2} Normal >60 [facility] Comment on above: Order Comment: No: D o not add to previous draw Result Comment: Calc ulation may not be valid for patients over 70 years Performed By: #### 4 999, , 59323 #### [facility] [address] [place] [address], [place] Glucose [Mass/Vol] 124 mg/dL High 70-100 [facility] Comment on above: Order Comment: No: D o not add to previous draw Performed By: #### 4 1000, , 76604 #### [facility] [address] [place] [address], [place] Potassium [Moles/Vol] 4.3 mmol/L Normal 3.5-5.1 [facility] Comment on above: Order Comment: No: D o not add to previous draw Performed By: #### 4 1000, , [id number] #### [facility] [address] [place] [id number], [facility] Sodium [Moles/Vol] 135 mmol/L Low 136-145 [facility] Comment on above: Order Comment: No: D o not add to previous draw Performed By: #### 4 1000, , [id number] #### [facility] [address] [place] [id number], [facility] Urea nitrogen [Mass/Vol] 15 mg/dL Normal 7-25 [facility] Comment on above: Order Comment: No: D o not add to previous draw Performed By: #### 4 1000, , [id number] #### [facility] [address] CBC COMPLETE BLOOD COUNTon 0 12-21-2021 Erythrocyte distribution width (RBC) [Ratio] 16.6 % High 11.5-15.0 [facility] Comment on above: Order Comment: No: D o not add to previous draw Performed By: #### 4 1000, , [id number] #### [facility] [address] [place] [address], [facility] Hematocrit (Bld) [Volume fraction] 38.0 % Normal 36.0-45.0 [facility] Comment on above: Order Comment: No: D o not add to previous draw Performed By: #### 4 1000, , [id number] #### [facility] [address] [place] [id number], [facility] Hemoglobin (Bld) [Mass/Vol] 12.1 g/dL Normal 12.0-15.0 [facility] Comment on above: Order Comment: No: D o not add to previous draw Performed By: #### 4 1000, , [id number] #### [facility] [address] [place] [address], [facility] MCH (RBC) [Entitic mass] 27.5 pg Normal 27.0-33.0 [facility] Comment on above: Order Comment: No: D o not add to previous draw Performed By: #### 4 1000, , [id number] #### [facility] [address] [place] [address], [facility] MCHC (RBC) [Mass/Vol] 31.8 g/dL Low 32.0-35.0 [facility] Comment on above: Order Comment: No: D o not add to previous draw Performed By: #### 4 1000, , [id number] #### [facility] [address] [place] [address], [facility] MCV (RBC) [Entitic vol] 86.4 fL Normal 82.0-98.0 [facility] Comment on above: Order Comment: No: D o not add to previous draw Performed By: #### 4 1000, , #### [facility] [address] [place] [address], [facility] Nucleated RBC/100 WBC (Bld) [Ratio] 0 % Normal 0-0 [facility] Comment on above: Order Comment: No: D o not add to previous draw Performed By: #### 4 1000, , 51803 #### [facility] [address] [place] [address], [facility] PLAT CNT 289 10*3/uL Normal 150-400 [facility] Comment on above: Order Comment: No: D o not add to previous draw Performed By: #### 4 1000, , [id number] #### [facility] [address] [facility] [place] [id number], [facility] RBC (Bld) [#/Vol] 4.40 10*6/uL Normal 3.80-5.00 [facility] Comment on above: Order Comment: No: D o not add to previous draw Performed By: #### 4 1000, , [id number] #### [facility] [address] [place] [id number], [place] WBC (Bld) [#/Vol] 9.11 10*3/uL Normal 4.00-10.60 [facility] Comment on above: Order Comment: No: D o not add to previous draw Performed By: #### 4 1000, [id number], [id number] #### [facility] [address] [place] [address], [facility] MAGNESIUM BLOODon 12-21-2021 Magnesium [Mass/Vol] 1.8 mg/dL Low 1.9-2.7 [facility] Comment on above: Order Comment: No: D o not add to previous draw Performed By: #### 4 1000, [id number], [id number] #### [facility] [address] [place] [address], [facility] PHOSPHORUS BLOODon Phosphate [Mass/Vol] 3.7 mg/dL Normal 2.5-5.0 [facility] Comment on above: Order Comment: No: D o not add to previous draw Performed By: #### 4 1000, [id number], [id number] #### [facility] [address] [place] [address], [facility] POC GLUCOSE LABon 12-21-2021 Glucose [Mass/Vol] 124 mg/dL High 70-100 [facility] Comment on above: Performed By: #### 4 1000, 33562, [id number] #### [facility] [address] [place] [address], [facility] URINALYSIS REFLEXon 12-22-19 22 Appearance (U) CLOUDY Abnormal CLEAR [facility] Comment on above: Order Comment: No: D o not add to previous drawCriteria for reflexing a culture was met. Urine Culture and sensitivitywill be performed. Performed By: #### 8 [id number] #### [facility] [address] [place] [address], [facility] Bilirubin Ql (U) Negative Normal NEGATIVE [facility] Comment on above: Order Comment: No: D o not add to previous drawCriteria for reflexing a culture was met. Urine Culture and sensitivitywill be performed. Performed By: #### 8 [id number] #### [facility] [address] [place] [address], [place] Color (U) YELLOW Normal YELLOW [facility] Comment on above: Order Comment: No: D o not add to previous drawCriteria for reflexing a culture was met. Urine Culture and sensitivitywill be performed. Performed By: #### 8 [id number] #### [facility] [address] [place] [address], [place] EPIS OCC Normal FEW,OCC,NO NE SEEN [facility] Comment on above: Order Comment: No: D o not add to previous drawCriteria for reflexing a culture was met. Urine Culture and sensitivitywill be performed. Performed By: #### 8 [id number] #### [facility] [address] [place] [address], [place] Glucose Ql (U) Negative Normal NEGATIVE [facility] Comment on above: Order Comment: No: D o not add to previous drawCriteria for reflexing a culture was met. Urine Culture and sensitivitywill be performed. Performed By: #### 8 [id number] #### [facility] [address] [place] [address], [place] Hemoglobin Ql (U) Negative Normal NEGATIVE [facility] Comment on above: Order Comment: No: D o not add to previous drawCriteria for reflexing a culture was met. Urine Culture and sensitivitywill be performed. Performed By: #### 8 [id number] #### [facility] [address] [place] [address], [place] KETONE Negative Normal NEGATIVE [facility] Comment on above: Order Comment: No: D o not add to previous drawCriteria for reflexing a culture was met. Urine Culture and sensitivitywill be performed. Performed By: #### 8 [id number] #### [facility] [address] [place] [address], [place] LEUK MICHELE LARGE Abnormal NEGATIVE [facility] Comment on above: Order Comment: No: D o not add to previous drawCriteria for reflexing a culture was met. Urine Culture and sensitivitywill be performed. Performed By: #### 8 [id number] #### [facility] [address] [place] [address], [facility] MUCUS THREADS OCC Abnormal NONE SEEN [facility] Comment on above: Order Comment: No: D o not add to previous drawCriteria for reflexing a culture was met. Urine Culture and sensitivitywill be performed. Performed By: #### 8 [id number] #### [facility] [address] [place] [address], [facility] Nitrite Ql (U) Positive Abnormal NEGATIVE [facility] Comment on above: Order Comment: No: D o not add to previous drawCriteria for reflexing a culture was met. Urine Culture and sensitivitywill be performed. Performed By: #### 8 [id number] #### [facility] [address] [facility] pH (U) 5.0 [pH] Normal 5.0-8.0 [facility] Comment on above: Order Comment: No: D o not add to previous drawCriteria for reflexing a culture was met. Urine Culture and sensitivitywill be performed. Performed By: #### 8 [id number] #### [facility] [address] [place] [address], [facility] Protein Ql (U) 30 mg/dL Abnormal NEGATIVE [facility] Comment on above: Order Comment: No: D o not add to previous drawCriteria for reflexing a culture was met. Urine Culture and sensitivitywill be performed. Performed By: #### 8 [id number] #### [facility] [address] [facility] [place] [address], [facility] RBC NONE SEEN Normal NONE SEEN [facility] Comment on above: Order Comment: No: D o not add to previous drawCriteria for reflexing a culture was met. Urine Culture and sensitivitywill be performed. Performed By: #### 8 [id number] #### [facility] [address] [facility] [place] [address], [facility] SPEC GRAV 1.025 High 1.015-1.02 0 [facility] Comment on above: Order Comment: No: D o not add to previous drawCriteria for reflexing a culture was met. Urine Culture and sensitivitywill be performed. Performed By: #### 8 [id number] #### [facility] [address] [facility] [place] [address], [facility] WBC UA >100 Abnormal NONE SEEN [facility] Comment on above: Order Comment: No: D o not add to previous drawCriteria for reflexing a culture was met. Urine Culture and sensitivitywill be performed. Performed By: #### 8 [id number] #### [facility] [address] [facility] [place] [address], [facility] AMYLASEon 12-20-2021 Amylase [Catalytic activity/Vol] 47 U/L Normal 25-115 [facility] Comment on above: Performed By: #### A MY LIPA, CMP #### [facility] [address] [place] [address] Dr. Sung Moore CBC AUTO DIFFon 12-20-2021 BASO # 0.0 103/ul Normal 0.0-0.1 [facility] Comment on above: Performed By: #### A MY LIPA, CMP #### [facility] [address] [place] [address] [address] Sung Moore Basophils/100 WBC (Bld) 0.1 % Critically low 0.2-2.0 [facility] Comment on above: Performed By: #### A MY LIPA, CMP #### [facility] [address] [place] [address] [address] Sung Moore EO # 0.1 103/ul Normal 0.0-0.7 [facility] Comment on above: Performed By: #### A MY LIPA, CMP #### [facility] [address] [place] [address] [address] Sung Moore Eosinophils/100 WBC (Bld) 0.5 % Critically low 0.9-7.0 [facility] Comment on above: Performed By: #### A CHILO ESTRADA, CMP #### [facility] [address] [place] [address] Dr. Sung Moore Erythrocyte distribution width (RBC) [Ratio] 16.4 % Critically high 11.0-15.0 [facility] Comment on above: Performed By: #### A CHILO ESTRADA, CMP #### [facility] [address] [place] [address] Dr. Sung Moore Hematocrit (Bld) [Volume fraction] 41.8 % Normal 36.0-48.0 [facility] Comment on above: Performed By: #### A CHILO ESTRADA, CMP #### [facility] [address] [place] [address] Dr. Sung Moore Hemoglobin (Bld) [Mass/Vol] 13.2 g/dL Normal 12.0-16.0 [facility] Comment on above: Performed By: #### A CHILO ESTRADA, CMP #### [facility] [address] [place] [address] Dr. Sung Moore IG # 0.07 10e3/ul Critically high 0.00-0.03 [facility] Comment on above: Performed By: #### A CHILO ESTRADA, CMP #### [facility] [address] [place] [address] Dr. Sung Moore IG % 0.5 % Normal 0.0-0.5 [facility] Comment on above: Performed By: #### A CHILO ESTRADA, CMP #### [facility] [address] [place] [address] Dr. Sung Moore LYMPH # 1.4 103/ul Normal 1.2-3.8 [facility] Comment on above: Performed By: #### A CHILO ESTRADA, CMP #### [facility] [address] [place] [address] Dr. Sung Moore Lymphocytes/100 WBC (Bld) 9.7 % Critically low 20.5-60.0 [facility] Comment on above: Performed By: #### A CHILO ESTRADA, CMP #### [facility] [address] [place] [address] [address] Sung Moore MANUAL DIFF REQ NO Normal [facility] Comment on above: Performed By: #### A MY, LIPA, CMP #### [facility] [address] [place] [address] [address] Sung Moore MCH (RBC) [Entitic mass] 27.4 pg Normal 26.7-34.0 [facility] Comment on above: Performed By: #### A MY, LIPA, CMP #### [facility] [address] [place] [address] Dr. Sung Moore MCHC (RBC) [Mass/Vol] 31.6 g/dL Normal 29.9-35.2 [facility] Comment on above: Performed By: #### A MY, LIPA, CMP #### [facility] [address] [place] [address] Dr. Sung Moore MCV (RBC) [Entitic vol] 86.9 fL Normal 81.0-99.0 [facility] Comment on above: Performed By: #### A MY, LIPA, CMP #### [facility] [address] [place] [address] Dr. Sung Moore MONO # 0.7 103/ul Normal 0.3-0.8 [facility] Comment on above: Performed By: #### A MY, LIPA, CMP #### [facility] [address] [place] [address] Dr. Sung Moore Monocytes/100 WBC (Bld) 5.3 % Normal 1.7-12.0 [facility] Comment on above: Performed By: #### A MY, LIPA, CMP #### [facility] [address] [place] [address] Dr. Sung Moore NEUT # 11.8 103/ul Critically high 1.4-6.[address] [facility] Comment on above: Performed By: #### A MY, LIPA, CMP #### [facility] [address] [place] [address] Dr. Sung Moore Neutrophils/100 WBC (Bld) 83.9 % Critically high 43.0-75.0 [facility] Comment on above: Performed By: #### A CHILO ESTRADA, CMP #### [facility] [address] [place] [address] Dr. Sung Mooer Platelet mean volume (Bld) [Entitic vol] 9.9 fL Normal 9.5-13.5 [facility] Comment on above: Performed By: #### A CHILO ESTRADA, CMP #### [facility] [address] [place] [address] [address] Sung Moore PLT 335 103/ul Normal 150-450 [facility] Comment on above: Performed By: #### A CHILO ESTRADA, CMP #### [facility] [address] [place] [address] Dr. Sung Moore RBC 4.81 106/ul Normal 4.20-5.40 [facility] Comment on above: Performed By: #### CHILO MCCLENDON, CMP #### [facility] [address] [place] [address] Dr. Sung Moore WBC 14.1 103/ul Critically high 4.0-11.[address] [facility] Comment on above: Performed By: #### A CHILO ESTRADA, CMP #### [facility] [address] [place] [address] ABD/PELV W CONon [...] DION SNOWDEN Date: 2021-12-20 13:12 Normal [facility]on SARS-CoV-2 (COVID-19) RNA ROMY+probe Ql (Unsp spec) Not detected Normal NOT DETECTED [facility] Comment on above: Result Comment: When diagnostic [...] for this test is supported by the [employer] Manager of Health and Human Service's declaration that [...] used). Performed By: #### L ACT #### [facility] [address] [place] [address] Dr. Sung Moore LIPASEon 12-20-2021 Lipase [Catalytic activity/Vol] 93.0 U/L Normal 73.0-393.0 [facility] Comment on above: Performed By: #### A MY, LIPA, CMP #### [facility] [address] [place] [address] Dr. Sung Moore PROF 14(COMP METB)on 022 Albumin [Mass/Vol] 3.6 g/dL Normal 3.4-5.0 [facility] Comment on above: Performed By: #### A MY, LIPA, CMP #### [facility] [address] [place] [address] Dr. Sung Moore Albumin/Globulin [Mass ratio] 0.7 {ratio} Normal [facility] Comment on above: Performed By: #### A MY, LIPA, CMP #### [facility] [address] [place] [address] Dr. Sung Moore ALP [Catalytic activity/Vol] 128 U/L Critically high 46-116 [facility] Comment on above: Performed By: #### A MY, LIPA, CMP #### [facility] [address] [place] [address] Dr. Sung Moore ALT [Catalytic activity/Vol] 20 U/L Normal 14-59 [facility] Comment on above: Performed By: #### A MY, LIPA, CMP #### [facility] [address] [place] [address] Dr. Sung Moore Anion gap [Moles/Vol] 11.7 mmol/L Normal [facility] Comment on above: Performed By: #### A MY, LIPA, CMP #### [facility] [address] [place] [address] Dr. Sung Moore AST [Catalytic activity/Vol] 22 U/L Normal 15-37 [facility] Comment on above: Performed By: #### A MY, LIPA, CMP #### [facility] [address] [place] [address] Dr. Sung Moore Bilirubin [Mass/Vol] 0.8 mg/dL Normal 0.2-1.0 [facility] Comment on above: Performed By: #### A MY, LIPA, CMP #### [facility] [address] [place] [address] Dr. Sung Moore Calcium [Mass/Vol] 9.8 mg/dL Normal 8.5-10.1 [facility] Comment on above: Performed By: #### A MY, LIPA, CMP #### [facility] [address] [place] [address] Dr. Sung Moore Chloride [Moles/Vol] 99 mmol/L Normal 98-107 [facility] Comment on above: Performed By: #### A MY, LIPA, CMP #### [facility] [address] [place] [address] Dr. Sung Moore CO2 [Moles/Vol] 26.6 mmol/L Normal 21.0-32.0 [facility] Comment on above: Performed By: #### A MY, LIPA, CMP #### [facility] [address] [place] [address] Dr. Sung Moore Creatinine [Mass/Vol] 0.82 mg/dL Normal 0.55-1.02 [facility] Comment on above: Performed By: #### A MY, LIPA, CMP #### [facility] [address] [place] [address] Dr. Sung Moore EGFR-AF ARGENTINE >60 Normal >=60 [facility] Comment on above: Performed By: #### A MY, LIPA, CMP #### [facility] [address] [place] [address] Dr. Sung Moore EGFR-NON AF ARGENTINE >60 Normal >=60 [facility] Comment on above: Performed By: #### A SEAN LIPA, CMP #### [facility] [address] [place] [address] Dr. Sung Moore Globulin (S) [Mass/Vol] 5.0 g/dL Normal [facility] Comment on above: Performed By: #### A MY LIPA, CMP #### [facility] [address] [place] [address] Dr. Sung Moore Glucose [Mass/Vol] 188 mg/dL Critically high 74-106 [facility] Comment on above: Performed By: #### A SEAN LIPA, CMP #### [facility] [address] [place] [address] Dr. Sung Moore Potassium [Moles/Vol] 4.3 mmol/L Normal 3.5-5.1 [facility] Comment on above: Performed By: #### A SEAN LIPA, CMP #### [facility] [address] [place] [address] Dr. Sung Moore Protein [Mass/Vol] 8.6 g/dL Critically high 6.4-8.2 [facility] Comment on above: Performed By: #### A SEAN LIPA, CMP #### [facility] [address] [place] [address] Dr. Sung Moore Sodium [Moles/Vol] 133 mmol/L Critically low 136-145 [facility] Comment on above: Performed By: #### A SEAN LIPA, CMP #### [facility] [address] [place] [address] Dr. Sung Moore Urea nitrogen [Mass/Vol] 15.0 mg/dL Normal 7.0-18.0 [facility] Comment on above: Performed By: #### A MY LIPA, CMP #### [facility] [address] [place] [address] Dr. Sung Moore Urea nitrogen/Creatinine [Mass ratio] 18.3 mg/mg Normal [facility] Comment on above: Performed By: #### A SEAN LIPA, CMP #### [facility] [address] [address] [address] Sung Moore XR KUB 1 VIEWon [...] DION SNOWDEN Date: 2021-12-20 14:16 Normal [facility] BNPon 11-13-2021 Natriuretic peptide B (Bld) [Mass/Vol] 3120.0 pg/mL Critically high <=1,800.0 [facility] Comment on above: Performed By: #### C MP, BNP #### [facility] [address] [place] [address] Dr. Sung Moore CBC AUTO DIFFon 11-13-2021 BASO # 0.0 103/ul Normal 0.0-0.1 [facility] Comment on above: Performed By: #### C RP, CMP #### [facility] [address] [address] [address] Sung Moore Basophils/100 WBC (Bld) 0.1 % Critically low 0.2-2.0 [facility] Comment on above: Performed By: #### C RP, CMP #### [facility] [address] [address] [address] Sung Moore EO # 0.0 103/ul Normal 0.0-0.7 [facility] Comment on above: Performed By: #### C RP, CMP #### [facility] [address] [address] [address] Sung Moore Eosinophils/100 WBC (Bld) 0.0 % Critically low 0.9-7.0 [facility] Comment on above: Performed By: #### C RP, CMP #### [facility] [address] [place] [address] Dr. Sung Moore Erythrocyte distribution width (RBC) [Ratio] 15.8 % Critically high 11.0-15.0 [facility] Comment on above: Performed By: #### C RP, CMP #### [facility] [address] [place] [address] Dr. Sung Moore Hematocrit (Bld) [Volume fraction] 27.5 % Critically low 36.0-48.0 [facility] Comment on above: Performed By: #### C RP, CMP #### [facility] [address] [place] [address] Dr. Sung Moore Hemoglobin (Bld) [Mass/Vol] 8.6 g/dL Critically low 12.0-16.0 [facility] Comment on above: Performed By: #### C RP, CMP #### [facility] [address] [place] [address] Dr. Sung Moore IG # 0.10 10e3/ul Critically high 0.00-0.03 [facility] Comment on above: Performed By: #### C RP, CMP #### [facility] [address] [place] [address] Dr. Sung Moore IG % 0.7 % Critically high 0.0-0.5 [facility] Comment on above: Performed By: #### C RP, CMP #### [facility] [address] [place] [address] Dr. Sung Moore LYMPH # 1.2 103/ul Normal 1.2-3.8 [facility] Comment on above: Performed By: #### C RP, CMP #### [facility] [address] [place] [address] Dr. Sung Moore Lymphocytes/100 WBC (Bld) 9.3 % Critically low 20.5-60.0 [facility] Comment on above: Performed By: #### C RP, CMP #### [facility] [address] [place] [address] Dr. Sung Moore MANUAL DIFF REQ NO Normal [facility] Comment on above: Performed By: #### C RP, CMP #### [facility] [address] [place] [address] Dr. Sung Moore MCH (RBC) [Entitic mass] 27.4 pg Normal 26.7-34.0 [facility] Comment on above: Performed By: #### C RP, CMP #### [facility] [address] [place] [address] Dr. Sung Moore MCHC (RBC) [Mass/Vol] 31.3 g/dL Normal 29.9-35.2 [facility] Comment on above: Performed By: #### C RP, CMP #### [facility] [address] [place] [address] Dr. Sung Moore MCV (RBC) [Entitic vol] 87.6 fL Normal 81.0-99.0 [facility] Comment on above: Performed By: #### C RP, CMP #### [facility] [address] [place] [address] Dr. Sung Moore MONO # 0.2 103/ul Critically low 0.3-0.[address] [facility] Comment on above: Performed By: #### C RP, CMP #### [facility] [address] [place] [address] Dr. Sung Moore Monocytes/100 WBC (Bld) 1.6 % Critically low 1.7-12.0 [facility] Comment on above: Performed By: #### C RP, CMP #### [facility] [address] [place] [address] Dr. Sung Moore NEUT # 11.8 103/ul Critically high 1.4-6.5 [facility] Comment on above: Performed By: #### C RP, CMP #### [facility] [address] [place] [address] Dr. Sung Moore Neutrophils/100 WBC (Bld) 88.3 % Critically high 43.0-75.0 [facility] Comment on above: Performed By: #### C RP, CMP #### [facility] [address] [place] [address] Dr. Sung Moore Platelet mean volume (Bld) [Entitic vol] 9.5 fL Normal 9.5-13.5 [facility] Comment on above: Performed By: #### C RP, CMP #### [facility] [address] [address] [address] Sung Moore PLT 239 103/ul Normal 150-450 [facility] Comment on above: Performed By: #### C RP, CMP #### [facility] [address] [address] [address] Sung Moore RBC 3.14 106/ul Critically low 4.20-5.40 [facility] Comment on above: Performed By: #### C RP, CMP #### [facility] [address] [address] [address] Sung Moore WBC 13.4 103/ul Critically high 4.0-11.[address] [facility] Comment on above: Performed By: #### C RP, CMP #### [facility] [address] [place] [address] Dr. Sung Moore PROF 14(COMP METB)on 022 Albumin [Mass/Vol] 2.4 g/dL Critically low 3.4-5.0 [facility] Comment on above: Performed By: #### C MP, BNP #### [facility] [address] [place] [address] Dr. Sung Moore Albumin/Globulin [Mass ratio] 0.6 {ratio} Normal [facility] Comment on above: Performed By: #### C MP, BNP #### [facility] [address] [place] [address] Dr. Sung Moore ALP [Catalytic activity/Vol] 68 U/L Normal 46-116 [facility] Comment on above: Performed By: #### C MP, BNP #### [facility] [address] [place] [address] Dr. Sung Moore ALT [Catalytic activity/Vol] 21 U/L Normal 14-59 [facility] Comment on above: Performed By: #### C MP, BNP #### [facility] [address] [place] [address] Dr. Sung Moore Anion gap [Moles/Vol] 14.9 mmol/L Normal [facility] Comment on above: Performed By: #### C MP, BNP #### [facility] [address] [address] [address] Sung Moore AST [Catalytic activity/Vol] 22 U/L Normal 15-37 [facility] Comment on above: Performed By: #### C MP, BNP #### [facility] [address] [place] [address] Dr. Sung Moore Bilirubin [Mass/Vol] 0.2 mg/dL Normal 0.2-1.0 [facility] Comment on above: Performed By: #### C MP, BNP #### [facility] [address] [place] [address] Dr. Sung Moore Calcium [Mass/Vol] 8.6 mg/dL Normal 8.5-10.1 [facility] Comment on above: Performed By: #### C MP, BNP #### [facility] [address] [place] [address] Dr. Sung Moore Chloride [Moles/Vol] 108 mmol/L Critically high 98-107 [facility] Comment on above: Performed By: #### C MP, BNP #### [facility] [address] [place] [address] Dr. Sung Moore CO2 [Moles/Vol] 20.1 mmol/L Critically low 21.0-32.0 [facility] Comment on above: Performed By: #### C MP, BNP #### [facility] [address] [place] [address] Dr. Sung Moore Creatinine [Mass/Vol] 0.74 mg/dL Normal 0.55-1.02 [facility] Comment on above: Performed By: #### C MP, BNP #### [facility] [address] [place] [address] Dr. Sung Moore EGFR-AF ARGENTINE >60 Normal >=60 [facility] Comment on above: Performed By: #### C MP, BNP #### [facility] [address] [place] [address] Dr. Sung Moore EGFR-NON AF ARGENTINE >60 Normal >=60 [facility] Comment on above: Performed By: #### C MP, BNP #### [facility] [address] [place] [address] Dr. Sung Moore Globulin (S) [Mass/Vol] 4.3 g/dL Normal [facility] Comment on above: Performed By: #### C MP, BNP #### [facility] [address] [place] [address] Dr. Sung Moore Glucose [Mass/Vol] 138 mg/dL Critically high 74-106 [facility] Comment on above: Performed By: #### C MP, BNP #### [facility] [address] [place] [address] Dr. Sung Moore Potassium [Moles/Vol] 4.0 mmol/L Normal 3.5-5.1 [facility] Comment on above: Performed By: #### C MP, BNP #### [facility] [address] [place] [address] Dr. Sung Moore Protein [Mass/Vol] 6.7 g/dL Normal 6.4-8.2 [facility] Comment on above: Performed By: #### C MP, BNP #### [facility] [address] [place] [address] Dr. Sung Moore Sodium [Moles/Vol] 139 mmol/L Normal 136-145 [facility] Comment on above: Performed By: #### C MP, BNP #### [facility] [address] [place] [address] Dr. Sung Moore Urea nitrogen [Mass/Vol] 23.0 mg/dL Critically high 7.0-18.0 [facility] Comment on above: Performed By: #### C MP, BNP #### [facility] [address] [place] [address] Dr. Sung Moore Urea nitrogen/Creatinine [Mass ratio] 31.1 mg/mg Normal [facility] Comment on above: Performed By: #### C MP, BNP #### [facility] [address] [place] [address] Dr. Sung Moore BNPon 11-12-2021 Natriuretic peptide B (Bld) [Mass/Vol] 3014.0 pg/mL Critically high <=1,800.0 [facility] Comment on above: Performed By: #### L ACT #### [facility] [address] [address] [address] Sung Moore CBC AUTO DIFFon 11-12-2021 BASO # 0.0 103/ul Normal 0.0-0.1 [facility] Comment on above: Performed By: #### C BC #### [facility] [address] [address] [address] Sung Moore Basophils/100 WBC (Bld) 0.1 % Critically low 0.2-2.0 [facility] Comment on above: Performed By: #### C BC #### [facility] [address] [place] [address] Dr. Sung Moore EO # 0.0 103/ul Normal 0.0-0.7 [facility] Comment on above: Performed By: #### C BC #### [facility] [address] [place] [address] Dr. Sung Moore Eosinophils/100 WBC (Bld) 0.0 % Critically low 0.9-7.0 [facility] Comment on above: Performed By: #### C BC #### [facility] [address] [place] [address] Dr. Sung Moore Erythrocyte distribution width (RBC) [Ratio] 15.5 % Critically high 11.0-15.0 [facility] Comment on above: Performed By: #### C BC #### [facility] [address] [place] [address] Dr. Sung Moore Hematocrit (Bld) [Volume fraction] 28.4 % Critically low 36.0-48.0 [facility] Comment on above: Performed By: #### C BC #### [facility] [address] [place] [address] Dr. Sung Moore Hemoglobin (Bld) [Mass/Vol] 8.8 g/dL Critically low 12.0-16.0 [facility] Comment on above: Performed By: #### C BC #### [facility] [address] [place] [address] Dr. Sung Moore IG # 0.06 10e3/ul Critically high 0.00-0.03 [facility] Comment on above: Performed By: #### C BC #### [facility] [address] [place] [address] Dr. Sung Moore IG % 0.4 % Normal 0.0-0.5 [facility] Comment on above: Performed By: #### C BC #### [facility] [address] [place] [address] Dr. Sung Moore LYMPH # 1.3 103/ul Normal 1.2-3.8 [facility] Comment on above: Performed By: #### C BC #### [facility] [address] [place] [address] Dr. Sung Mooer Lymphocytes/100 WBC (Bld) 9.2 % Critically low 20.5-60.0 [facility] Comment on above: Performed By: #### C BC #### [facility] [address] [place] [address] Dr. Sung Moore MANUAL DIFF REQ NO Normal [facility] Comment on above: Performed By: #### C BC #### [facility] [address] [place] [address] Dr. Sung Moore MCH (RBC) [Entitic mass] 27.2 pg Normal 26.7-34.0 [facility] Comment on above: Performed By: #### C BC #### [facility] [address] [place] [address] Dr. Sung Moore MCHC (RBC) [Mass/Vol] 31.0 g/dL Normal 29.9-35.2 [facility] Comment on above: Performed By: #### C BC #### [facility] [address] [place] [address] Dr. Sung Moore MCV (RBC) [Entitic vol] 87.7 fL Normal 81.0-99.0 [facility] Comment on above: Performed By: #### C BC #### [facility] [address] [place] [address] Dr. Sung Moore MONO # 0.5 103/ul Normal 0.3-0.8 [facility] Comment on above: Performed By: #### C BC #### [facility] [address] [address] [address] Sung Moore Monocytes/100 WBC (Bld) 3.5 % Normal 1.7-12.0 [facility] Comment on above: Performed By: #### C BC #### [facility] [address] [address] [address] Sung Moore NEUT # 12.1 103/ul Critically high 1.4-6.[address] [facility] Comment on above: Performed By: #### C BC #### [facility] [address] [place] [address] Dr. Sung Moore Neutrophils/100 WBC (Bld) 86.8 % Critically high 43.0-75.0 [facility] Comment on above: Performed By: #### C BC #### [facility] [address] [place] [address] Dr. Sung Moore Platelet mean volume (Bld) [Entitic vol] 9.8 fL Normal 9.5-13.5 [facility] Comment on above: Performed By: #### C BC #### [facility] [address] [address] [address] Sung Moore PLT 250 103/ul Normal 150-450 [facility] Comment on above: Performed By: #### C BC #### [facility] [address] [place] [address] Dr. Sung Moore RBC 3.24 106/ul Critically low 4.20-5.40 [facility] Comment on above: Performed By: #### C BC #### [facility] [address] [place] [address] Dr. Sung Moore WBC 13.9 103/ul Critically high 4.0-11.0 [facility] Comment on above: Performed By: #### C BC #### [facility] [address] [place] [address] Dr. Sung Moore CULTURE URINEon 11-12-2021 CULTURE [...] F Trimethoprim/Sulfamethoxa zole <=20 S F Normal [facility] Comment on above: Performed By: #### C RP, CMP #### [facility] [address] [place] [address] Dr. Sung Moore PROF 14(COMP METB)on 022 Albumin [Mass/Vol] 2.4 g/dL Critically low 3.4-5.0 [facility] Comment on above: Performed By: #### L ACT #### [facility] [address] [place] [address] Dr. Sung Moore Albumin/Globulin [Mass ratio] 0.5 {ratio} Normal [facility] Comment on above: Performed By: #### L ACT #### [facility] [address] [place] [address] Dr. Sung Moore ALP [Catalytic activity/Vol] 73 U/L Normal 46-116 [facility] Comment on above: Performed By: #### L ACT #### [facility] [address] [place] [address] Dr. Sung Moore ALT [Catalytic activity/Vol] 22 U/L Normal 14-59 [facility] Comment on above: Performed By: #### L ACT #### [facility] [address] [place] [address] Dr. Sung Moore Anion gap [Moles/Vol] 12.9 mmol/L Normal [facility] Comment on above: Performed By: #### L ACT #### [facility] [address] [place] [address] Dr. Sung Moore AST [Catalytic activity/Vol] 21 U/L Normal 15-37 [facility] Comment on above: Performed By: #### L ACT #### [facility] [address] [address] [address] Sung Moore Bilirubin [Mass/Vol] 0.1 mg/dL Critically low 0.2-1.0 [facility] Comment on above: Performed By: #### L ACT #### [facility] [address] [address] [address] Sung Moore Calcium [Mass/Vol] 8.6 mg/dL Normal 8.5-10.1 [facility] Comment on above: Performed By: #### L ACT #### [facility] [address] [address] [address] Sung Moore Chloride [Moles/Vol] 108 mmol/L Critically high 98-107 [facility] Comment on above: Performed By: #### L ACT #### [facility] [address] [address] [address] Sung Moore CO2 [Moles/Vol] 22.0 mmol/L Normal 21.0-32.[address] [facility] Comment on above: Performed By: #### L ACT #### [facility] [address] [address] [address] Sung Moore Creatinine [Mass/Vol] 0.79 mg/dL Normal 0.55-1.02 [facility] Comment on above: Performed By: #### L ACT #### [facility] [address] [address] [address] Sung Moore EGFR-AF ARGENTINE >60 Normal >=60 [facility] Comment on above: Performed By: #### L ACT #### [facility] [address] [address] [address] Sung Moore EGFR-NON AF ARGENTINE >60 Normal >=60 [facility] Comment on above: Performed By: #### L ACT #### [facility] [address] [address] [address] Sung Moore Globulin (S) [Mass/Vol] 4.5 g/dL Normal [facility] Comment on above: Performed By: #### L ACT #### [facility] [address] [address] [address] Sung Moore Glucose [Mass/Vol] 149 mg/dL Critically high 74-106 [facility] Comment on above: Performed By: #### L ACT #### [facility] [address] [place] [address] Dr. Sung Moore Potassium [Moles/Vol] 2.8 mmol/L Critically low 3.5-5.1 [facility] Comment on above: Performed By: #### L ACT #### [facility] [address] [place] [address] Dr. Sung Moore Protein [Mass/Vol] 6.9 g/dL Normal 6.4-8.2 [facility] Comment on above: Performed By: #### L ACT #### [facility] [address] [place] [address] Dr. Sung Moore Sodium [Moles/Vol] 140 mmol/L Normal 136-145 [facility] Comment on above: Performed By: #### L ACT #### [facility] [address] [place] [address] Dr. Sung Moore Urea nitrogen [Mass/Vol] 17.0 mg/dL Normal 7.0-18.0 [facility] Comment on above: Performed By: #### L ACT #### [facility] [address] [place] [address] Dr. Sung Moore Urea nitrogen/Creatinine [Mass ratio] 21.5 mg/mg Normal [facility] Comment on above: Performed By: #### L ACT #### [facility] [address] [place] [address] Dr. Sung Moore BNPon 11-11-2021 Natriuretic peptide B (Bld) [Mass/Vol] 882.0 pg/mL Normal <=1,800.0 [facility] Comment on above: Performed By: #### C RP, CMP #### [facility] [address] [place] [address] Dr. Sung Moore CBC AUTO DIFFon 11-11-2021 BASO # 0.0 103/ul Normal 0.0-0.1 [facility] Comment on above: Performed By: #### C RP, CMP #### [facility] [address] [place] [address] Dr. uSng Moore Basophils/100 WBC (Bld) 0.0 % Critically low 0.2-2.0 [facility] Comment on above: Performed By: #### C RP, CMP #### [facility] [address] [place] [address] Dr. Snug Moore EO # 0.0 103/ul Normal 0.0-0.7 [facility] Comment on above: Performed By: #### C RP, CMP #### [facility] [address] [place] [address] Dr. Sung Moore Eosinophils/100 WBC (Bld) 0.0 % Critically low 0.9-7.0 [facility] Comment on above: Performed By: #### C RP, CMP #### [facility] [address] [place] [address] Dr. Sung Moore Erythrocyte distribution width (RBC) [Ratio] 15.1 % Critically high 11.0-15.0 [facility] Comment on above: Performed By: #### C RP, CMP #### [facility] [address] [place] [address] Dr. Sung Moore Hematocrit (Bld) [Volume fraction] 28.5 % Critically low 36.0-48.0 [facility] Comment on above: Performed By: #### C RP, CMP #### [facility] [address] [place] [address] Dr. Sung Moore Hemoglobin (Bld) [Mass/Vol] 8.9 g/dL Critically low 12.0-16.0 [facility] Comment on above: Performed By: #### C RP, CMP #### [facility] [address] [place] [address] Dr. Sung Moore IG # 0.02 10e3/ul Normal 0.00-0.03 [facility] Comment on above: Performed By: #### C RP, CMP #### [facility] [address] [place] [address] Dr. Sung Moore IG % 0.5 % Normal 0.0-0.5 [facility] Comment on above: Performed By: #### C RP, CMP #### [facility] [address] [place] [address] Dr. Sung Moore LYMPH # 0.9 103/ul Critically low 1.2-3.8 [facility] Comment on above: Performed By: #### C RP, CMP #### [facility] [address] [place] [address] Dr. Sung Moore Lymphocytes/100 WBC (Bld) 23.8 % Normal 20.5-60.0 [facility] Comment on above: Performed By: #### C RP, CMP #### [facility] [address] [place] [address] Dr. Sung Moore MANUAL DIFF REQ NO Normal [facility] Comment on above: Performed By: #### C RP, CMP #### [facility] [address] [place] [address] Dr. Sung Moore MCH (RBC) [Entitic mass] 27.4 pg Normal 26.7-34.0 [facility] Comment on above: Performed By: #### C RP, CMP #### [facility] [address] [place] [address] Dr. Sung Moore MCHC (RBC) [Mass/Vol] 31.2 g/dL Normal 29.9-35.2 [facility] Comment on above: Performed By: #### C RP, CMP #### [facility] [address] [place] [address] Dr. Sung Moore MCV (RBC) [Entitic vol] 87.7 fL Normal 81.0-99.0 [facility] Comment on above: Performed By: #### C RP, CMP #### [facility] [address] [place] [address] Dr. Sung Moore MONO # 0.1 103/ul Critically low 0.3-0.8 [facility] Comment on above: Performed By: #### C RP, CMP #### [facility] [address] [place] [address] Dr. Sung Moore Monocytes/100 WBC (Bld) 2.1 % Normal 1.7-12.0 [facility] Comment on above: Performed By: #### C RP, CMP #### [facility] [address] [place] [address] Dr. Sung Moore NEUT # 2.8 103/ul Normal 1.4-6.5 [facility] Comment on above: Performed By: #### C RP, CMP #### [facility] [address] [place] [address] Dr. Sung Moore Neutrophils/100 WBC (Bld) 73.6 % Normal 43.0-75.0 [facility] Comment on above: Performed By: #### C RP, CMP #### [facility] [address] [place] [address] Dr. Sung Moore Platelet mean volume (Bld) [Entitic vol] 9.4 fL Critically low 9.5-13.5 [facility] Comment on above: Performed By: #### C RP, CMP #### [facility] [address] [place] [address] Dr. Sung Moore PLT 216 103/ul Normal 150-450 [facility] Comment on above: Performed By: #### C RP, CMP #### [facility] [address] [place] [address] Dr. Sung Moore RBC 3.25 106/ul Critically low 4.20-5.40 [facility] Comment on above: Performed By: #### C RP, CMP #### [facility] [address] [place] [address] Dr. Sung Moore WBC 3.7 103/ul Critically low 4.0-11.0 [facility] Comment on above: Performed By: #### C RP, CMP #### [facility] [address] [place] [address] Dr. Sung Moore PROF 14(COMP METB)on 022 Albumin [Mass/Vol] 2.4 g/dL Critically low 3.4-5.0 [facility] Comment on above: Performed By: #### C MP, BNP #### [facility] [address] [place] [address] Dr. Sung Moore Albumin/Globulin [Mass ratio] 0.5 {ratio} Normal [facility] Comment on above: Performed By: #### C MP, BNP #### [facility] [address] [place] [address] Dr. Sung Moore ALP [Catalytic activity/Vol] 87 U/L Normal 46-116 [facility] Comment on above: Performed By: #### C MP, BNP #### [facility] [address] [place] [address] Dr. Sung Moore ALT [Catalytic activity/Vol] 19 U/L Normal 14-59 [facility] Comment on above: Performed By: #### C MP, BNP #### [facility] [address] [place] [address] Dr. Sung Moore Anion gap [Moles/Vol] 9.2 mmol/L Normal [facility] Comment on above: Performed By: #### C MP, BNP #### [facility] [address] [place] [address] Dr. Sung Moore AST [Catalytic activity/Vol] 20 U/L Normal 15-37 [facility] Comment on above: Performed By: #### C MP, BNP #### [facility] [address] [place] [address] Dr. Sung Moore Bilirubin [Mass/Vol] 0.2 mg/dL Normal 0.2-1.0 [facility] Comment on above: Performed By: #### C MP, BNP #### [facility] [address] [place] [address] Dr. Sung Moore Calcium [Mass/Vol] 8.5 mg/dL Normal 8.5-10.1 [facility] [place] Comment on above: Performed By: #### C MP, BNP #### [facility] [address] [place] [address] Dr. Sung Moore Chloride [Moles/Vol] 106 mmol/L Normal 98-107 [facility] Comment on above: Performed By: #### C MP, BNP #### [facility] [address] [place] [address] Dr. Sung Moore CO2 [Moles/Vol] 23.1 mmol/L Normal 21.0-32.[address] [facility] Comment on above: Performed By: #### C MP, BNP #### [facility] [address] [place] [address] Dr. Sung Moore Creatinine [Mass/Vol] 0.88 mg/dL Normal 0.55-1.02 [facility] Comment on above: Performed By: #### C MP, BNP #### [facility] [address] [place] [address] Dr. Sung Moore EGFR-AF ARGENTINE >60 Normal >=[address] [facility] Comment on above: Performed By: #### C MP, BNP #### [facility] [address] [place] [address] Dr. Sung Moore EGFR-NON AF ARGENTINE >60 Normal >=60 [facility] Comment on above: Performed By: #### C MP, BNP #### [facility] [address] [place] [address] Dr. Sung Moore Globulin (S) [Mass/Vol] 4.8 g/dL Normal [facility] Comment on above: Performed By: #### C MP, BNP #### [facility] [address] [place] [address] Dr. Sung Moore Glucose [Mass/Vol] 153 mg/dL Critically high 74-106 [facility] Comment on above: Performed By: #### C MP, BNP #### [facility] [address] [place] [address] Dr. Sung Moore Potassium [Moles/Vol] 3.3 mmol/L Critically low 3.5-5.1 [facility] Comment on above: Performed By: #### C MP, BNP #### [facility] [address] [place] [address] Dr. Sung Moore Protein [Mass/Vol] 7.2 g/dL Normal 6.4-8.2 [facility] [place] Comment on above: Performed By: #### C MP, BNP #### [facility] [address] [place] [address] Dr. Sung Moore Sodium [Moles/Vol] 135 mmol/L Critically low 136-145 Th [facility] Comment on above: Performed By: #### C MP, BNP #### [facility] [address] [place] [address] Dr. Sung Moore Urea nitrogen [Mass/Vol] 16.0 mg/dL Normal 7.0-18.0 [facility] Comment on above: Performed By: #### C MP, BNP #### [facility] [address] [place] [address] Dr. Sung Moore Urea nitrogen/Creatinine [Mass ratio] 18.2 mg/mg Normal [facility] Comment on above: Performed By: #### C MP, BNP #### [facility] [address] [place] [address] Dr. Sung Moore CBC AUTO DIFFon 11-10-2021 BASO # 0.0 103/ul Normal 0.0-0.1 [facility] Comment on above: Performed By: #### C RP, CMP #### [facility] [address] [place] [address] Dr. Sung Moore Basophils/100 WBC (Bld) 0.2 % Normal 0.2-2.0 [facility] Comment on above: Performed By: #### C RP, CMP #### [facility] [address] [place] [address] Dr. Sung Moore EO # 0.0 103/ul Normal 0.0-0.7 [facility] Comment on above: Performed By: #### C RP, CMP #### [facility] [address] [place] [address] Dr. Sung Moore Eosinophils/100 WBC (Bld) 0.2 % Critically low 0.9-7.0 [facility] Comment on above: Performed By: #### C RP, CMP #### [facility] [address] [place] [address] Dr. Sung Moore Erythrocyte distribution width (RBC) [Ratio] 15.2 % Critically high 11.0-15.0 [facility] Comment on above: Performed By: #### C RP, CMP #### [facility] [address] [place] [address] Dr. Sung Moore Hematocrit (Bld) [Volume fraction] 30.0 % Critically low 36.0-48.0 [facility] Comment on above: Performed By: #### C RP, CMP #### [facility] [address] [place] [address] Dr. Sung Moore Hemoglobin (Bld) [Mass/Vol] 9.7 g/dL Critically low 12.0-16.0 [facility] Comment on above: Performed By: #### C RP, CMP #### [facility] [address] [place] [address] Dr. Sung Moore IG # 0.03 10e3/ul Normal 0.00-0.03 [facility] Comment on above: Performed By: #### C RP, CMP #### [facility] [address] [place] [address] Dr. Sung Moore IG % 0.5 % Normal 0.0-0.5 [facility] Comment on above: Performed By: #### C RP, CMP #### [facility] [address] [place] [address] Dr. Sung Moore LYMPH # 1.3 103/ul Normal 1.2-3.8 [facility] Comment on above: Performed By: #### C RP, CMP #### [facility] [address] [place] [address] Dr. Sung Moore Lymphocytes/100 WBC (Bld) 20.3 % Critically low 20.5-60.0 [facility] Comment on above: Performed By: #### C RP, CMP #### [facility] [address] [place] [address] Dr. Sung Moore MANUAL DIFF REQ NO Normal [facility] Comment on above: Performed By: #### C RP, CMP #### [facility] [address] [place] [address] Dr. Sung Moore MCH (RBC) [Entitic mass] 27.8 pg Normal 26.7-34.0 [facility] Comment on above: Performed By: #### C RP, CMP #### [facility] [address] [place] [address] Dr. Sung Moore MCHC (RBC) [Mass/Vol] 32.3 g/dL Normal 29.9-35.2 [facility] Comment on above: Performed By: #### C RP, CMP #### [facility] [address] [place] [address] Dr. Sung Moore MCV (RBC) [Entitic vol] 86.0 fL Normal 81.0-99.0 [facility] Comment on above: Performed By: #### C RP, CMP #### [facility] [address] [place] [address] Dr. Sung Moore MONO # 0.6 103/ul Normal 0.3-0.8 [facility] Comment on above: Performed By: #### C RP, CMP #### [facility] [address] [place] [address] Dr. Sung Moore Monocytes/100 WBC (Bld) 8.8 % Normal 1.7-12.0 [facility] Comment on above: Performed By: #### C RP, CMP #### [facility] [address] [place] [address] Dr. Sung Moore NEUT # 4.6 103/ul Normal 1.4-6.5 [facility] Comment on above: Performed By: #### C RP, CMP #### [facility] [address] [place] [address] Dr. Sung Moore Neutrophils/100 WBC (Bld) 70.0 % Normal 43.0-75.0 [facility] Comment on above: Performed By: #### C RP, CMP #### [facility] [address] [place] [address] Dr. Sung Moore Platelet mean volume (Bld) [Entitic vol] 9.1 fL Critically low 9.5-13.5 [facility] Comment on above: Performed By: #### C RP, CMP #### [facility] [address] [place] [address] Dr. Sung Moore PLT 230 103/ul Normal 150-450 [facility] Comment on above: Performed By: #### C RP, CMP #### [facility] [address] [place], [place] [address] Dr. Sung Moore RBC 3.49 106/ul Critically low 4.20-5.40 [facility] Comment on above: Performed By: #### C RP, CMP #### [facility] [address] [place], [place] [address] Dr. Sung Moore WBC 6.6 103/ul Normal 4.0-11.0 [facility] Comment on above: Performed By: #### C RP, CMP #### [facility] [address] [place], [place] [address] ABD/PELVIS WO CONon [...] DION SNOWDEN Date: 2021-11-10 15:46 Normal [facility] CT STROKE HEAD WOon 11-11-[address] [...] occipital lobe likely related to remote left TRAINMASTER ischemia. Hypodensity in the posterior limb of the left internal capsule measuring 8 x 6 mm compatible with prior lacunar infarct. Dense carotid calcifications. IMPRESSION: No acute intracranial hemorrhage. Chronic ischemic changes as documented. Electronically authenticated by: KAYLEY PHELAN Date: 2021-11-10 15:47 Normal [facility] CULTURE BLOODon 11-10-2021 Microscopic examination of blood, culture Culture Observations: NO GROWTH AT 5 DAYS. Isolate 1 BC_[id number] Normal [facility] Comment on above: Performed By: #### C RP, CMP #### [facility] [address] [place] [address] [address] Sung Moore Microscopic examination of blood, culture Culture Observations: NO GROWTH AT 5 DAYS. Isolate 1 BC_BA_NA Normal [facility] Comment on above: Performed By: #### C RP, CMP #### [facility] [address] [place] [address] [address] Sung Moore Covid-19 PCR ([facility])on 10-17 SARS-CoV-2 (COVID-19) RNA ROMY+probe Ql (Unsp spec) Not detected Normal NOT DETECTED [facility] Comment on above: Result Comment: When diagnostic [...] for this test is supported by the [employer] Manager of Health and Human Service's declaration that [...] Performed By: #### C MP, BNP #### [facility] [address] [place] [address] Dr. Sung Moore ER URINE PROFILEon 2 Bilirubin Ql (U) Negative Normal NEGATIVE [facility] Comment on above: Performed By: #### C RP, CMP #### [facility] [address] [place] [address] Dr. Sung Moore Clarity (U) CLEAR Normal CLEAR [facility] Comment on above: Performed By: #### C RP, CMP #### [facility] [address] [place] [address] Dr. Sung Moore Color (U) LT. YELLOW Normal YELLOW [facility] Comment on above: Performed By: #### C RP, CMP #### [facility] [address] [place] [address] Dr. Sung Moore ERUAHD A micrscopic examina tion will be performed if indicated. Normal [facility] Comment on above: Performed By: #### C RP, CMP #### [facility] [address] [place] [address] Dr. Sung Moore Glucose Ql (U) Negative Normal NEGATIVE [facility] Comment on above: Performed By: #### C RP, CMP #### [facility] [address] [place] [address] Dr. Sung Moore Hemoglobin Ql (U) Negative Normal NEGATIVE [facility] Comment on above: Performed By: #### C RP, CMP #### [facility] [address] [place] [address] Dr. Sung Moore Ketones Ql (U) Negative Normal NEGATIVE [facility] Comment on above: Performed By: #### C RP, CMP #### [facility] [address] [place] [address] Dr. Sung Moore LEUKOCYTES LARGE Abnormal NEGATIVE [facility] Comment on above: Performed By: #### C RP, CMP #### [facility] [address] [place] [address] Dr. Sung Moore Nitrite Ql (U) Positive Abnormal NEGATIVE [facility] Comment on above: Performed By: #### C RP, CMP #### [facility] [address] [place] [address] Dr. Sung Moore pH (U) 6.0 [pH] Normal 5-9 [facility] Comment on above: Performed By: #### C RP, CMP #### [facility] [address] [place] [address] Dr. Sung Moore SPEC GRAVITY 1.010 Normal 1.005-<=1. 025 [facility] Comment on above: Performed By: #### C RP, CMP #### [facility] [address] [place] [address] Dr. Sung Moore UA PROTEIN Negative Normal NEGATIVE/ TRACE [facility] Comment on above: Performed By: #### C RP, CMP #### [facility] [address] [place] [address] Dr. Sung Moore UR MICRO IND INDICATED Normal [facility] Comment on above: Performed By: #### C RP, CMP #### [facility] [address] [place] [address] Dr. Sung Moore Urobilinogen Qn (U) 0.2 {David'U}/dL Normal 0.2 - 1. 0 [facility] Comment on above: Performed By: #### C RP, CMP #### [facility] [address] [place] [address] Dr. Sung Moore LACTATE/LACTIC ACIDon 2021 Lactate [Moles/Vol] 1.1 mmol/L Normal 0.4-1.9 [facility] Comment on above: Performed By: #### C RP, CMP #### [facility] [address] [place] [address] Dr. Sung Moore Lactate [Moles/Vol] 1.9 mmol/L Normal 0.4-1.9 [facility] Comment on above: Performed By: #### C MP, BNP #### [facility] [address] [place] [address] Dr. Sung Moore PROF 14(COMP METB)on 022 Albumin [Mass/Vol] 2.9 g/dL Critically low 3.4-5.0 [facility] Comment on above: Performed By: #### L ACT #### [facility] [address] [place] [address] Dr. Sung Moore Albumin/Globulin [Mass ratio] 0.6 {ratio} Normal [facility] Comment on above: Performed By: #### L ACT #### [facility] [address] [place] [address] Dr. Sung Moore ALP [Catalytic activity/Vol] 101 U/L Normal 46-116 [facility] Comment on above: Performed By: #### L ACT #### [facility] [address] [place] [address] Dr. Sung Moore ALT [Catalytic activity/Vol] 21 U/L Normal 14-59 [facility] Comment on above: Performed By: #### L ACT #### [facility] [address] [place] [address] Dr. Sung Moore Anion gap [Moles/Vol] 14.6 mmol/L Normal [facility] Comment on above: Performed By: #### L ACT #### [facility] [address] [place] [address] Dr. Sung Moore AST [Catalytic activity/Vol] 19 U/L Normal 15-37 [facility] Comment on above: Performed By: #### L ACT #### [facility] [address] [place] [address] [address] Sung Moore Bilirubin [Mass/Vol] 0.7 mg/dL Normal 0.2-1.0 [facility] Comment on above: Performed By: #### L ACT #### [facility] [address] [place] [address] [address] Sung Moore Calcium [Mass/Vol] 8.4 mg/dL Critically low 8.5-10.1 [facility] Comment on above: Performed By: #### L ACT #### [facility] [address] [place] [address] [address] Sung Moore Chloride [Moles/Vol] 94 mmol/L Critically low 98-107 [facility] Comment on above: Performed By: #### L ACT #### [facility] [address] [place] [address] [address] Sung Moore CO2 [Moles/Vol] 22.9 mmol/L Normal 21.0-32.[address] [facility] Comment on above: Performed By: #### L ACT #### [facility] [address] [place] [address] [address] Sung Moore Creatinine [Mass/Vol] 1.40 mg/dL Critically high 0.55-1.02 [facility] Comment on above: Performed By: #### L ACT #### [facility] [address] [place] [address] [address] Sung Moore EGFR-AF ARGENTINE 44 mL/min/1.73m2 Critically low >=60 [facility] Comment on above: Performed By: #### L ACT #### [facility] [address] [place] [address] [address] Sung Moore EGFR-NON AF ARGENTINE 37 mL/min/1.73m2 Critically low >=60 [facility] Comment on above: Performed By: #### L ACT #### [facility] [address] [place] [address] [address] Sung Moore Globulin (S) [Mass/Vol] 4.9 g/dL Normal [facility] Comment on above: Performed By: #### L ACT #### [facility] [address] [place] [address] [address] Sung Moore Glucose [Mass/Vol] 150 mg/dL Critically high 74-106 [facility] Comment on above: Performed By: #### L ACT #### [facility] [address] [place] [address] [address] Sung Moore Potassium [Moles/Vol] 3.5 mmol/L Normal 3.5-5.1 [facility] Comment on above: Performed By: #### L ACT #### [facility] [address] [place] [address] [address] Sung Moore Protein [Mass/Vol] 7.8 g/dL Normal 6.4-8.2 [facility] [place] Comment on above: Performed By: #### L ACT #### [facility] [address] [place] [address] [address] Sung Moore Sodium [Moles/Vol] 128 mmol/L Critically low 136-145 Th [facility] Comment on above: Performed By: #### L ACT #### [facility] [address] [place] [address] [address] Sung Moore Urea nitrogen [Mass/Vol] 21.0 mg/dL Critically high 7.0-18.0 [facility] Comment on above: Performed By: #### L ACT #### [facility] [address] [place] [address] [address] Sung Moore Urea nitrogen/Creatinine [Mass ratio] 15.0 mg/mg [facility] Comment on above: Performed By: #### L ACT #### [facility] [address] [place] [address] [address] Sung Moore PROTIMEon 11-10-2021 INR Coag (PPP) [Relative time] 1.16 {INR} [facility] Comment on above: Performed By: #### C RP, CMP #### [facility] [address] [place] [address] [address] Sung Moore INR GUIDELINES SEE BELOW Normal [facility] Comment on above: Result Comment: JOHN RED INR: 2.0 - 3.0 CONDITIONS NOT LISTED BELOW 2.5 - 3.5 FOR PROSTHETIC HEART VALVE REPLACEMENT 2.5 - 3.5 RECURRENT THROMBOSIS Performed By: #### C RP, CMP #### [facility] [address] [place] [address] Dr. Sung Moore PT Coag (PPP) [Time] 12.4 s Critically high 9.0-11.6 [facility] Comment on above: Performed By: #### C RP, CMP #### [facility] [address] [place] [address] Dr. Sung Moore PTTon 11-10-2021 aPTT Coag (Bld) [Time] 32.9 s Normal 22.3-36.2 Th [facility] Comment on above: Performed By: #### C RP, CMP #### [facility] [address] [place] [address] Dr. Sung Moore TROPONIN, HIGH SENSITIVITYon 11-10-2021 HSTROP 10.1 pg/mL Normal 4.0-51.3 [facility] Comment on above: Result Comment: CUT- OFF POINTS HAVE BEEN ESTABLISHED BASED ON THE FOURTH UNIVERSAL DEFINITIONS OF MYOCARDIAL INFARCTION. THE UPPER REFERENCE LIMIT (URL) OF TROPONIN, DEFINED THE 99TH PERCENTILE OF cTnI DISTRIBUTION IN A REFERENCE POPULATION, HAS BEEN CONFIRMED THE DECISION THRESHOLD FOR MO DIAGNOSIS. Performed By: #### L ACT #### [facility] [address] [place] [address] Dr. Sung Moore TSHon 11-10-2021 TSH 1.207 uIU/mL Normal 0.358-3.74 0 [facility] Comment on above: Performed By: #### C MP, BNP #### [facility] [address] [place] [address] Dr. Sung Moore TSH RANGE SEE BELOW Normal [facility] Comment on above: Result Comment: <0.3 4 UIU/ml HYPERTHYROID 0.34-5.60 UIU/ml EUTHYROID >5.60 UIU/ml HYPOTHYROID Performed By: #### C MP, BNP #### [facility] [address] [place] [address] Dr. Sung Moore URINE MICROSCOPIC ONLYon BACTERIA MODERATE Abnormal NONE SEEN [facility] Comment on above: Performed By: #### C RP, CMP #### [facility] [address] [place] [address] Dr. Sung Moore Bacteria identified Cx Nom (U) INDICATED Normal [facility] Comment on above: Performed By: #### C RP, CMP #### [facility] [address] [place] [address] Dr. Sung Moore CAST NONE SEEN Normal NONE SEEN [facility] Comment on above: Performed By: #### C RP, CMP #### [facility] [address] [place] [address] Dr. Sung Moore Crystals LM Nom (Urine sed) NONE SEEN Normal NONE SEEN [facility] Comment on above: Performed By: #### C RP, CMP #### [facility] [address] [place] [address] Dr. Sung Moore Epithelial cells LM Ql (Urine sed) RARE Normal NONE SEEN /RARE [facility] Comment on above: Performed By: #### C RP, CMP #### [facility] [facility] [address] [place] [address] Dr. Sung Moore MUCOUS NONE SEEN Normal NONE SEEN [facility] Comment on above: Performed By: #### C RP, CMP #### [facility] [address] [place] [address] Dr. Sung Moore RBC NONE SEEN Abnormal 0-2 [facility] Comment on above: Performed By: #### C RP, CMP #### [facility] [address] [place] [address] Dr. Sung Moore WBC 50-75 Abnormal NONE SEEN [facility] Comment on above: Performed By: #### C RP, CMP #### [facility] [address] [place] [address] Dr. Sung Moore XR CHEST 1 Von [...] DION SNOWDEN Date: 2021-11-10 15:26 Normal [facility] Glucose Glucometer (dC) [M ass/Vol]Ordered By: Bonnie Hendricks on 10-19-2021 Glucose [Mass/Vol] 127 mg/dL [facility] Comment on above: Random Glucose Refer ence Range is dependent on time and content of last meal. Glucose of more than 200 mg/dL in a nonstressed, ambulatory subject supports the diagnosis of Diabetes Mellitus. Activated partial thrombopla stin time (aPTT) in platelet poor plasma by coagulation aOrdered By: Bonnie Hendricks on 10-12-2021 aPTT Coag (PPP) [Time] 31.5 s 25.1-36.5 [facility] Basophils Auto (Bld) [#/Vol] Ordered By: Bonnie Hendricks on 10-12-2021 Basophils (Bld) [#/Vol] 0.0 10*3/uL 0.0-0.2 [facility] Basophils/100 WBC Auto (Bld) Ordered By: Bonnie Hendricks on 10-12-2021 Basophils/100 WBC (Bld) 0.3 % . [facility] Blood hemoglobin measurement (mass/volume)Ordered By: Bonnie Hendricks on 10-12-2021 Hemoglobin (Bld) [Mass/Vol] 10.4 g/dL 11.8-15.4 [facility] Blood leukocytes automated c ount (number/volume)Ordered By: Bonnie Hendricks on 10-12-2021 WBC (Bld) [#/Vol] 6.3 10*3/uL 4.5-11.0 [facility] Body fluid albumin measureme nt (mass/volume)Ordered By: Bonnie Hendricks on 10-12-2021 Albumin (Body fld) [Mass/Vol] 3.4 g/dL 3.2-5.5 [facility] Creatinine and Glomerular fi ltration rate.predicted panel (S/P/Bld)Ordered By: Bonnie Hendricks on 10-12-2021 Creatinine [Mass/Vol] 0.81 mg/dL 0.44-1.03 [facility] Eosinophils Auto (Bld) [#/Vo l]Ordered By: Bonnie Hendricks on 10-12-2021 Eosinophils (Bld) [#/Vol] 0.2 10*3/uL 0.0-0.45 [facility] Eosinophils/100 WBC Auto (Bl d)Ordered By: Bonnie Hendricks on 10-12-2021 Eosinophils/100 WBC (Bld) 3.5 % . [facility] Erythrocyte distribution wid th Auto (RBC) [Ratio]Ordered By: Bonnie Hendricks on 10-12-2021 Erythrocyte distribution width (RBC) [Ratio] 16.5 % 11.9-15.3 [facility] Estimated glomerular filtrat ion rate (GFR) non- AmericanOrdered By: Bonnie Hendricks on 10-12-2021 GFR/1.73 sq M.predicted among non-blacks MDRD (S/P/Bld) [Vol rate/Area] > 60 mL/Min [facility] Globulin Calc (S) [Mass/Vol] Ordered By: Bonnie Hendricks on 10-12-2021 Globulin (S) [Mass/Vol] 4.6 g/dL [facility] Hematocrit Auto (Bld) [Volum e fraction]Ordered By: Bonnie Hendricks on 10-12-2021 Hematocrit (Bld) [Volume fraction] 31.6 % 34.0-46.4 [facility] Laboratory - CoagulationOrde red By: Bonnie Hendricks on 10-12-2021 PT Coag (PPP) [Time] 14.0 s High 9.0-12.9 [facility] - Hematology and Cell countsOrdered By: Bonnie Hendricks on 10-12-2021 Nucleated RBC/100 WBC (Bld) [Ratio] 0.0 % 0-0.5 [facility] Lactate dehydrogenase measur ement (enzymatic activity/volume)Ordered By: Bonnie Hendricks on 10-12-2021 LDH (Unsp spec) [Catalytic activity/Vol] 133 U/L 45-190 [facility] Lymphocytes Auto (Bld) [#/Vo l]Ordered By: Bonnie Hendricks on 10-12-2021 Lymphocytes (Bld) [#/Vol] 1.4 10*3/uL 1.00-4.8 [facility] Lymphocytes/100 WBC Auto (Bl d)Ordered By: Bonnie Hendricks on 10-12-2021 Lymphocytes/100 WBC (Bld) 22.9 % . [facility] MCH Auto (RBC) [Entitic mass ]Ordered By: Bonnie Hendricks on 10-12-2021 MCH (RBC) [Entitic mass] 28.2 pg 24.7-34.3 [facility] MCHC Auto (RBC) [Mass/Vol]Or dered By: Bonnie Hendricks on 10-12-2021 MCHC (RBC) [Mass/Vol] 32.8 g/dL 32.0-35.0 [facility] MCV Auto (RBC) [Entitic vol] Ordered By: Bonnie Hendricks on 10-12-2021 MCV (RBC) [Entitic vol] 85.8 fL 80-100 [facility] Monocytes Auto (Bld) [#/Vol] Ordered By: Bonnie Hendricks on 10-12-2021 Monocytes (Bld) [#/Vol] 0.4 10*3/uL 0.0-0.8 [facility] Monocytes/100 WBC Auto (Bld) Ordered By: Bonnie Hendricks on 10-12-2021 Monocytes/100 WBC (Bld) 6.3 % . [facility] Neutrophils Auto (Bld) [#/Vo l]Ordered By: Bonnie Hendricks on 10-12-2021 Neutrophils (Bld) [#/Vol] 4.2 10*3/uL 1.8-7.7 [facility] Neutrophils/100 WBC Auto (Bl d)Ordered By: Bonnie Hendricks on 10-12-2021 Neutrophils/100 WBC (Bld) 67.0 % . [facility] No Panel InformationOrdered By: Bonnie Hendricks on 10-12-2021 Estimated GFR () > 60 mL/Min [facility] Comment on above: GFR estimated refere nce range: According to KDOQI guidelines, <60 ml/min/1.73m2 is sufficient to diagnose a patient with chronic kidney disease. Pharmacy Creatinine Clearance (Chem N/A [facility] Platelet mean volume Auto (B ld) [Entitic vol]Ordered By: Bonnie Hendricks on 10-12-2021 Platelet mean volume (Bld) [Entitic vol] 7.1 fL 6.3-10.7 [facility] Platelet poor plasma interna tional normalized ratio (INR) by coagulation assay (relatOrdered By: Bonnie Hendricks on 10-12-2021 INR Coag (PPP) [Relative time] 1.2 {INR} [facility] Comment on above: INR Therapeutic Rang e [...] 10-12-2021 Platelets (Bld) [#/Vol] 370 10*3/uL 150-450 [facility] Protein [Mass/volume] in Ser um or PlasmaOrdered By: Bonnie Hendricks on 10-12-2021 Protein [Mass/Vol] 8.0 g/dL 6.1-7.9 [facility] RBC Auto (Bld) [#/Vol]Ordere d By: Bonnie Hendricks on 10-12-2021 RBC (Bld) [#/Vol] 3.68 10*6/uL 3.60-5.00 [facility] Serum or plasma alanine de guzman otransferase measurement without P-5'-P (enzymatic activiOrdered By: Bonnie Hendricks on 10-12-2021 ALT No additional P-5'-P [Catalytic activity/Vol] 13 U/L 10-60 [facility] Serum or plasma albumin/glob ulin mass ratioOrdered By: Bonnie Hendricks on 10-12-2021 Albumin/Globulin [Mass ratio] 0.7 {ratio} [facility] Serum or plasma alkaline david sphatase measurement (enzymatic activity/volume)Ordered By: Bonnie Hendricks on 10-12-2021 ALP [Catalytic activity/Vol] 94 U/L 32-92 [facility] Serum or plasma aspartate am inotransferase measurement (enzymatic activity/volume)Ordered By: Bonnie Hendricks on 10-12-2021 AST [Catalytic activity/Vol] 18 U/L 10-42 [facility] Serum or plasma calcium elias urement (mass/volume)Ordered By: Bonnie Hendricks on 10-12-2021 Calcium [Mass/Vol] 9.6 mg/dL 8.2-10.2 [facility] Serum or plasma cancer antig en 125 (CA-125) measurement (units/volume)Ordered By: Bonnie Hendricks on 10-12-2021 Cancer Ag 125 Qn 23.7 [arb'U]/mL 0.0-38.1 [facility] Comment on above: Sha [employer] El ectrochemiluminescence Immunoassay (ECLIA) Values obtained with different assay methods or kits cannot be used interchangeably. Results cannot be interpreted as absolute evidence of the presence or absence of malignant disease. Performed at: [address] [id number] Manager Residential: Adrian Coello PhD, Phone: [phone] Serum or plasma chloride liset surement (moles/volume)Ordered By: Bonnie Hendricks on 10-12-2021 Chloride [Moles/Vol] 101 mmol/L 95-114 [facility] Serum or plasma glucose elias urement (mass/volume)Ordered By: Bonnie Hendricks on 10-12-2021 Glucose [Mass/Vol] 126 mg/dL 70-100 [facility] Comment on above: ADA recommended refe rence range Random Glucose Reference Range is dependent on time and content of last meal. Glucose of more than 200 mg/dL in a nonstressed, ambulatory subject supports the diagnosis of Diabetes Mellitus. Serum or plasma potassium me asurement (moles/volume)Ordered By: Bonnie Hendricks on 10-12-2021 Potassium [Moles/Vol] 4.3 mmol/L 3.5-5.1 [facility] Serum or plasma sodium measu rement (moles/volume)Ordered By: Bonnie Eladio on 10-12-2021 Sodium [Moles/Vol] 136 mmol/L 136-146 [facility] Serum or plasma total biliru bin measurement (mass/volume)Ordered By: Bonnie Eladio on 10-12-2021 Bilirubin [Mass/Vol] 0.9 mg/dL 0.3-1.2 [facility] Serum or plasma total carbon dioxide measurement (moles/volume)Ordered By: Bonnie Eladio on 10-12-2021 CO2 [Moles/Vol] 24.7 mmol/L 22.0-30.0 [facility] Serum or plasma urea nitroge n measurement (mass/volume)Ordered By: Bonnie Hendricks on 10-12-2021 Urea nitrogen [Mass/Vol] 10 mg/dL 03-10 [facility] C Urineon 08-26-2021 Bacteria identified Cx Nom [...] Locations R1: This test was performed at: [facility], [address] [place] [address], [address] , , [facility] Comment on above: Performed By: #### 2 [id number] ####[place] [address] Coding Summary.on 08-26-2021 Coding Summary. [id number] Gh0bW w+PGhlYWQ+MS4YJPSxQ06ikQE kzX1NH5tXXF7BFMDWQAQVKC7X KM9rfKD1TEowG5CegxIr YauyhNAiTS61SMn6XRU0nGpgR NjhdJ7ogPZxZ4n6WlIeBK97qV 59PNizHVXqPfG9UaCupcupfRY y B5liPoRjqDGzFin+PHRhYmxlI HdpZHRoPScxMDAlJyBzdHlsZT 4hEw1nQBExYYMoyTlznSBzByO j i6adQBEzNBlgJR1qhRkpW8Ocs LL8CKTmv8c5Ai96lBC+PHRkIH Y4oSdrEXdch046VeEme2efDSI 3 mCLaYLzhLHQ4Q47yq9N3TBAmR UPbVDB6jPQ5gO4maGtqxvahN7 BgqLEmNcI3NWW1zCBxmU4noSa n xslfhJ4aYnz+X57OBS2GWSKVV T2SVrx9C8YlNqfxiFV+PC90YW YvZS19vEGggESlw7rqmTt7MiF w EQEcNST7pLanCDgvb9VcQPTlW 81nuRQgh8E8PZRdtNizgFXyLw GrbRR0aZ3uQMzkydiig8undkz n Vgwez0ejcu79zJ08L61eZPvhU PXhNJD2SBZqJIDmbXltmc1ufI 9wIi8+GLibl5flt3iooMm5XfN w SRNbwePirZgrJJG1y1PbAh41H 0QemNert2TgGpk4yt48bRFkv8 I8eRE8VAvxDZGuqO7jPPotTsX 6 CPRuOaWygY28oLMuZBepCr0cr YazaLjaFO7kRZSfcfyjVXAvzF 1fVYZcqGGzwCsmQB9cSQSlixk m q451QzJkPFZ3ROChsGJzY8Xae U7uXpMkBOLyBZGpQ9KdaDPsBA fqI565JDnrKfX1FICmhaHpF7U s USOphMdwGmX6d0W3Mf7Ru4Dqv podQKV5PZvoUJPoUtYrJrKxBr N4W2AqKwf1IVAadYvzGT0aO9G h WKGnecqjdclhgPP7NWNuOGReu S40eQObFSkpFm6yp2R6y881OZ DwVYEfwI08Ke6fuKsfJMTwvGK U hR8mudsut6dziujiQnWdFWBiO Ts0DVl9QYQjkTlyVrRpDQR6Jw V6HSI8bRIebU2tjYzviauziH1 w Oyc+M37lvP7pKQU0KGI2qymyC VGoyaRvTW16XL74I6AdUeiopN FibGU+EYInmpBdlThpMD7eJmR j v2sdb9ZmCPmpV3SgUSKiYWywX cu7KZJsACG0vVU5mC7xQYKcMK iez3K6zXI5C5FvvuRsdv9fc8e s MRPcWLimR75nqCJxs8I5BVDfo RB7XJMwrGpvIpPuvW17Fmt+PG NzjEcis9AqClfqe2yiu1nurJp 9 VcUpMUGwxiAyrPcqABR4f2CuI u69H91lILiuLBZvVERuYRGxNV IjhQcaue0ecV1nFc0+PGNvbCB 3 zID9tU7tIPIgXqE3YVcgI909I oOrwXMvGztoc5kxe0zswJz8We NpVLHbfgIqvOvnARN5r4HzDp1 8 E66cHJqgFEQnHBAyOEAxNNHdz Ckzcz4meI5zSv9+RN1vg2ffhq 48sV12eQV+ZNChGPM3gSlzBAm w ZBEfbN4iUXruGlL8SVFhAtYvq B03kTIeKLxnOt0miMmhjJqjXA 9eRWQrjapvf508RjPgl8liCCD w cHGsMPkxGSJ7T14aa1O1GKIoL TEaOBC4dQD5pR6pyDknczsxuO ClyHnaewYbnAunVSmoOLjfN74 6 IHRvcDsnPlBhdGllbnQgTmFtZ Mv3M0MkKhy4RFAibVvkEZ8whD PdCFovBs0bpHvrvSinUD3oRJE p dlnsi825NlGzs1olMXBpsSDxE YkwOQS6H77jm8W9YMXxLWQoND H4nBP6cU1vcPhavylvtFGelMa g wwIufXjfFYinOGskD005OGSnn LptVpJyraMoWMAdzSQ6QB50AG 27gVAhc2B7mEN4V6YaXBDotrh t gzuxoDA6CSTtKTLpiF47Cw1sr JbuWe4rIONeKNO2RPRcmAQpQ5 TfwN8jQqIfANXlJTKaU8TzfFJ t ZJmdL321ASgnDiV8SUSbolUrH 3QyDFFrtDpwDnY6j7O4Qu9FQ1 A2JI07AF88mSSdi9B0bRG1A2Q h UIUjljkyrfiqnXO8YNPlIEDbl T55Zy1oyJweEj6uDCUnEES2TL YobDIeZ6LxpK3xHuUgLGVkKIB w R5PcqIAcUYvjL058YBkkZhC3O DFhvsWhC2JpYAFstZreVaN5j5 H2Vk6JJKo0XE63HR94xKCln1W 5 wSQ1T2IdXYAeavarflkcwND4N JQtQGVegK87Ar5dtNtcKv8xFF IsDSF4FPKquVLrQ6IbpO3tMcV j PPZrVHXhQ1NqnARtIMorF812E BywAfU0WBJuefRpH7GxMESlzT xyGrT0q8A2Yl6OSIWoVC57IHK 5 yOE6OE52WG63C2SfEegltMAfd +PHRhYmxlIHdpZHRoPScxMD ErLuNdyHodCW3xFz1rMLYqQNU v pEhdiAKmAgScx5uzQCTjXCveR U4ptIkpV7SmrZA2BPMjm0y1Mg 96Q95jZ8TrjDQ+DEIgnEY2tRZ 0 hU7aCkEcUoX1UYkzS862KsEla YNqPjerl2ndf3vahKe3EaY1PE WfmkKikPkfOYA8r3TmMq04L16 s IHdpZHRoPSIxNSUiIHZhbGlnb i0xkY1kJz5+PUTcgMT6rJD0oW 6eUmMzThL8MCyhE420GsRtjPA v Vttch3cel4xuoNd3TuVmUNMhw yTycVydVGX1u0TpVu89N0BqvP joo1NqOay9il03pBEqz8D9jHB 9 S7TgRYGbtiegnMPdiBnnXQ5iK ITsfhznFRIaiP9lPTAwJ2t0Ui JgVxC9ZOqgN6SxppE5HFAzxUV g UJjaVMN4Z97dd5H2KHQqFOPfB FL4fXL5dD4kyFnbxydndQFhcG kjguWpeRpkLYnuELuvE649PZN v yXxfJMKczZ6mUMJltQNhcNumX W4aWVPtnhyxOwsUYblRFSbhQT URKUEBNeW1N6XbFhd8MSTqrBx s AZ4tlPSvIPjnGr8ljAozlLuxS G4pRHOgaowdYBNntN8bDVXvnI CoqXcwPH3qOCLnfubgz192AnB x GPQ9EXPwwAKvQ5XbeP5eMkMjA SVwULOyH4SjnCKgOEltV453SD nbAbH5KBSadbUcQ5PzCMBcrHk u FwL4f2O1Wo3qOg0rYQ4uNCH8S N35PF30gYGqf0L4uBG1M5FnRF XuxschgvgvmYW1NUYeOSZbuU1 7 iQQvFIzqIe1jy5O8r229KCTvO ULvmJ72Vq7ltGtgRCLgbMTDwM 2lvcntd0jmulxbVtDhBMVaMWl 0 JHe9ASPjcKffVaDeHMN2NoE3F UM9lDHttN6ohOhzexjxqX3hWv c+MnVcTEZrveC8W0MrAbn6BQP z dNqoRD5glEGqKKgbWr1mrGpzt ThsOL2tRXXjazvgRTDpdC1rXG GbgEVqjCxyDR8sQCQxffpeo10 0 IhRsZTZ6ROUqcIGqP4CdaZ6yX wBgQUKmGHCaB8LqsOGkYDxbP5 92JZveAnX3QANzfqBgZ0QeENT s cFcpUoC4h0U3Bs3NRG0iaYN5K 1RvCje9AJCreOpfCY7vdLGsKM zzSv6kiEwkkRruSM4iKMJwnxb w KSDauM6mSFBtpZFhbUvfZX1bB OJtjzknw865BbIuEEK7BPJbnX YeR9CtlJ8tEmOqWCDqMHBqO4W l uGRwRVzpM444IFweSdB5HCJpu bMkA1CdLVDqrPrhXyT7m4S6Zi 7ZAXMmNICxpGQdNeJ1W7AsHfm v dHI+RT02GDYyXP03hABbjAEft 4monLf1TaGtFETiLFK6nYirQO nnc4ZcRKKqW02twGMhj2N1TGW v iRmwuOUtBbPzvRT9eQ0dLMkvy ttxt8eoahrjIolxm3domg87kG 03H42nENwvSSEsQUZyYYApDNB h vYgvpj8djM6uIj9+QLNioJS3w VS8dT7hXgShXqB7NKviT770Ve DqeEKfTlywn6ppv4rojHe8SdE w WKFpwyCcqFxeEAX7n2EuZc13J 29sIHdpZHRoPSIyMCUiIHZhbG cbko1pqK3lUg9+SU3sw9ooka1 1 uK23yLH+YQTpTRW9yXkwONxjE TButE6jURhtJgX2MOTkLmBxzP 88lEOtBKqyRh1sbGyhpYqsIL5 w VGYveeljx470QqEel0hlOSKwg RMoTUomYES5Y14cv9N8WYUdMH KtCKJ5bVE3nW3tfZbcdammrLF m zBanhrOxcSjhILafYStvP478U FJjaGvsJqYlcVIqE7sgkgIWPQ 1lOjwvdGQ+LCYzQWL0wGnhRQo w RFUdoG1iDSApW0s5PtPdLkQ5B TeeN4WrgcD2LNMwzJMyKOEgfM KNiV8feznsc6pfapflFdFzOWO w HUn5JDz2MXJllCehNsXnNTS6Y bN3MKJ2pYUgoO5hmHgiqrdacS 9wOyc+RklOOjwvdGQ+PHRkIHN 0 dXumMHfiMHVbfY4xTDWtE7i5O cFqNyU6VNbmN8LxwxH1RKNekL XoSGBlfNUOrR4fcmaqi8onbja g NhReISHmULc0CPy1PKEsbLgzD pYvBFO2HdL3BKB3rZYusL6wkB zkxaartU3rNnc+TVJOOjwvdGQ + YIEmGOM7gDctXBlvROHvzE9oP CDtP1q0PdWmPnB6AXljZ4Sfgq L1CUXmkLNwURDnnVQUyR0bqfm j t3lcxebbQaGoFCXzVLj4UBv6T WXpuWuuEjIzFNF6AeG6LIF0tC JpdP7afBvnbyqaiI2iDds+UGF 5 WTI6JQ32LA91Y3VqKmqokXGlp +PHRhYmxlIHdpZHRoPScxMD KoTuGqqTboRL2aSr7aNSBxWXM v [facility] (more content not included)... Normal [facility] Formson 08-25-2021 Forms [id number] Normal [facility] Ambulatory Visit Summaryon 0 08-24-2021 Ambulatory Visit Summary SABI SANTAMARIA :1945 Visit Date:08/24/2021 Ambulatory Visit Instructions Your Diagnosis Gross hematuria UTI (urinary tract infection) Tests Performed Urnls Dip Stick Auto w/o Microscopy POC 82951 Your Care Team Attending Physician - Jose [...] Acevedo When: Only if needed Where: [address] [address] Medications What How Much When Instructions New cephalexin (Keflex 250 mg Cap) 1 Capsules By Mouth Every 6 hours Duration: 5 Days Pickup at [facility]/pharmacy #[id number] Unchanged acetaminophen (acetaminophen 500 mg Tab) Oral [...] physician if questions or concerns Pharmacy Information [facility]/pharmacy #[id number]: [address] [place], [place] [id number] [phone] Test Results Urnls Dip Stick Auto w/o Microscopy POC 67883 (08/24/2021) Bilirubin Urine Dipstick - Negative Blood Urine Dipstick - Trace-intact Glucose Urine Dipstick - Negative Ketones Urine Dipstick - Negative Leukocytes Urine Dipstick - 3+ Large Nitrite Urine Dipst (more content not included)... Normal [facility] Patient Educationon 08-25-19 Patient Education Nutrition [...] height. This can be done either in [place]ic ([place] or metric measurements. Note that charts are available to help you find your BMI quickly and easily without having to do these calculations yourself. To calculate your BMI in [place]ic ([place] measurements, your health care provider will: [...] problems. ? BMI can be measured using Icelandic measurements or metric measurements. ? To interpret [...] 02/13/2005 Document Revised: 05/17/2018 Document Reviewed: 04/17/2018 [employer] Patient Education ? 2019 [employer]. Urology Hematuria, Adult Hematuria is blood in [...] these instructions at home: Medicines ? Take [id number] and pres (more content not included)... Normal [facility] Reminderson 08-24-2021 Reminders - From: Muna Diaz MA To: EU - Clinical; Sent: 08/24/2021 11:15:25 EST Show up: 08/26/2021 11:15:00 EST Subject: urine culture Reminder/Recall Urine sent to [facility] for culture Normal [facility] Urology Office/Clinic Noteon 08-24-2021 Urology Office/Clinic [...] information and history for this patient from [facility] Admission I have reviewed and verified the [...] Patient seen for consult. Patient admitted [facility] on 04/[facility]/21 post CVA and hip fracture. [...] her daughter today. 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 As noted above she has [...] Jose Eugene, URL Only if needed [address] [place] [address]- Additional Instructions: Patient Education BMI for [...] citrate) 20 (more content not included)... Normal [facility] Comment on above: Result Comment: Elec tronically Signed By: Jose SORIA MD\.br\Date and Time Signed: 08/24/21 11:09 EST\.br\Electronically Co-Signed By: Ashley Cotton MA\.br\Date and Time Co-Signed: 08/24/21 11:01 EST XR hip RT min 2V(w/wo pelvis )*on 06-29-2021 XR hip RT min 2V(w/wo pelvis)* [facility] [employer] Other XR hip RT min 2V(w/wo pelvis)* [facility] [employer] Other XR hip RT min 2V(w/wo pelvis)* [address] [facility] [employer] Other XR hip RT min 2V(w/wo pelvis)* [place] [address] [employer] Other XR hip RT min 2V(w/wo pelvis)* XRay Report [employer] Other XR hip RT min 2V(w/wo pelvis)* Signed [employer] Other XR hip RT min 2V(w/wo pelvis)* Patient: Sabi Santamaria MR#: [id number] [employer] Other XR hip RT min 2V(w/wo pelvis)* [id number] [employer] Other XR hip RT min 2V(w/wo pelvis)* : 1945 Acct:[id number] [employer] Other XR hip RT min 2V(w/wo pelvis)* Age/Sex: 76 / F ADM Date: 06/29/21 [employer] Other XR hip RT min 2V(w/wo pelvis)* Loc: [facility] Room: Type: [facility] [employer] Other XR hip RT min 2V(w/wo pelvis)* Attending Dr: Getachew Escalante DO [employer] Other XR hip RT min 2V(w/wo pelvis)* Ordering Provider: Getachew Escalante DO [employer] Other XR hip RT min 2V(w/wo pelvis)* Date of Service: 06/29/21 [employer] Other XR hip RT min 2V(w/wo pelvis)* XR/XR hip RT min 2V(w/wo pelvis)*: Other specified postprocedural states [employer] Other XR hip RT min 2V(w/wo pelvis)* Copies to: Getachew Escalante DO [employer] Other XR hip RT min 2V(w/wo pelvis)* XR hip RT min 2V(w/wo pelvis)* 06/29/2021 1:07 PM [employer] Other XR hip RT min 2V(w/wo pelvis)* SIGNS AND SYMPTOMS: Status post right total hip arthroplasty, follow-up [employer] Other XR hip RT min 2V(w/wo pelvis)* PROTOCOL: Frontal and frog-leg views of the right hip [employer] Other XR hip RT min 2V(w/wo pelvis)* COMPARISON: 05/12/2021 [employer] Other XR hip RT min 2V(w/wo pelvis)* FINDINGS: [employer] Other XR hip RT min 2V(w/wo pelvis)* Hemiarthroplasty hardware is noted in the right hip without fracture or dislocation. Visualized [facility] Other XR hip RT min 2V(w/wo pelvis)* right hemipelvis is grossly intact. Surgical clips are noted in the right hemipelvis. [facility] Other XR hip RT min 2V(w/wo pelvis)* XR/XR hip RT min 2V(w/wo pelvis)* [facility] Other XR hip RT min 2V(w/wo pelvis)* IMPRESSION: [facility] Other XR hip RT min 2V(w/wo pelvis)* Hemiarthroplasty of right hip is redemonstrated without fracture, hardware complication, or [facility] Other XR hip RT min 2V(w/wo pelvis)* malalignment. [facility] Other XR hip RT min 2V(w/wo pelvis)* Impression dictated by: Carl Smith M.D.06/29/2021 1:54 PM [facility] Other XR hip RT min 2V(w/wo pelvis)* Dictation Location: [place] [address] [facility] Other XR hip RT min 2V(w/wo pelvis)* Transcribed By: PAMELA 06/29/21 [facility] Other XR hip RT min 2V(w/wo pelvis)* Dictated By: Carl Smith II, MD 06/29/21 [facility] Other XR hip RT min 2V(w/wo pelvis)* Signed By: [facility] Other XR hip RT min 2V(w/wo pelvis)* 06/29/21 [facility] Other Consultation Noteon 06-16-20 21 Consultation Note [id number]#1.00CD:12 7 [facility] Insurance Correspondence Off iceon 04-29-2021 Insurance Correspondence Office [id number]#1.00CD:1 27 Normal [facility] Consultation Noteon 04-27-20 Consultation Note [id number]#1.00CD:12 7 Normal [facility] Operative Reporton Operative Report [id number]#1.00CD:12 7 Normal [facility] RAD - CT Reporton 04-27-2021 RAD - CT Report [id number]#1.00CD:12 7 [facility] RAD - Ultrasound Reporton RAD - Ultrasound Report [id number]#1.00CD:12 7 [facility] Vital Signs Date Time Vital Sign Value Performing Clinician Facility 04-29-2024 16:12-0500 Body mass index (BMI) [Ratio] 23.81 kg/m2 Debra Walters CARDIAC CATH TECHNOLOGIST Work Phone: [facility] 04-29-2024 16:12-0500 Body weight 57.15 kg Debra Walters CARDIAC CATH TECHNOLOGIST Work Phone: [facility] 04-29-2024 16:12-0500 Diastolic blood pressure 74 mm[Hg] Debra Walters CARDIAC CATH TECHNOLOGIST Work Phone: [facility] 04-29-2024 16:12-0500 Heart rate 67 /min Debra Walters CARDIAC CATH TECHNOLOGIST Work Phone: [facility] 04-29-2024 16:12-0500 SaO2% (BldA) [Mass fraction] 97 % Debra Walters CARDIAC CATH TECHNOLOGIST Work Phone: [facility] 04-29-2024 16:12-0500 Systolic blood pressure 130 mm[Hg] Debra Walters CARDIAC CATH TECHNOLOGIST Work Phone: [facility] 02-27-2024 16:45-0400 Body height 154.9 cm Debra Walters CARDIAC CATH TECHNOLOGIST Work Phone: [facility] 02-27-2024 16:45-0400 Body mass index (BMI) [Ratio] 23.92 kg/m2 Debra Walters CARDIAC CATH TECHNOLOGIST Work Phone: [facility] 02-27-2024 16:45-0400 Body weight 57.42 kg Debra Walters CARDIAC CATH TECHNOLOGIST Work Phone: [facility] 02-27-2024 16:45-0400 Diastolic blood pressure 86 mm[Hg] Debra Walters CARDIAC CATH TECHNOLOGIST Work Phone: [facility] 02-27-2024 16:45-0400 Systolic blood pressure 140 mm[Hg] Debra Walters CARDIAC CATH TECHNOLOGIST Work Phone: [facility] 12-13-2023 15:07-0400 Body height 162.56 cm MD Merrill Doherty Work Phone: [facility] 12-13-2023 15:07-0400 Body mass index (BMI) [Ratio] 22.1 kg/m2 MD Merrill Doherty Work Phone: [facility] 12-13-2023 15:07-0400 Body temperature 97.5 [degF] MD Merrill Doherty Work Phone: [facility] 12-13-2023 15:07-0400 Body weight 58.51 kg MD Merrill Doherty Work Phone: [facility] 12-13-2023 15:07-0400 Diastolic blood pressure 70 mm[Hg] MD Merrill Doherty Work Phone: [facility] 12-13-2023 15:07-0400 Heart rate 65 /min MD Merrill Doherty Work Phone: [facility] 12-13-2023 15:07-0400 Respiratory rate 20 /min MD Merrill Doherty Work Phone: [facility] 12-13-2023 15:07-0400 SaO2% (BldA) [Mass fraction] 98 % MD Merrill Doherty Work Phone: [facility] 12-13-2023 15:07-0400 Systolic blood pressure 109 mm[Hg] MD Merrill Doherty Work Phone: [facility] 06-14-2023 15:02-0500 Body height 162.56 cm MD Merrill Doherty Work Phone: [facility] 06-14-2023 15:02-0500 Body temperature 97.9 [degF] MD Merrill Doherty Work Phone: [facility] 06-14-2023 15:02-0500 Body weight 59.42 kg MD Merrill Doherty Work Phone: [facility] 06-14-2023 15:02-0500 Diastolic blood pressure 94 mm[Hg] MD Merrill Doherty Work Phone: [facility] 06-14-2023 15:02-0500 Heart rate 98 /min MD Merrill Doherty Work Phone: [facility] 06-14-2023 15:02-0500 Respiratory rate 20 /min MD Merrill Doherty Work Phone: [facility] 06-14-2023 15:02-0500 SaO2% (BldA) [Mass fraction] 98 % MD Merrill Doherty Work Phone: [facility] 06-14-2023 15:02-0500 Systolic blood pressure 146 mm[Hg] MD Merrill Doherty Work Phone: [facility] 12-14-2022 15:27-0400 Body temperature 97.8 [degF] MD Merrill Doherty Work Phone: [facility] 12-14-2022 15:27-0400 Body weight 60.32 kg MD Merrill Doherty Work Phone: [facility] 12-14-2022 15:27-0400 Diastolic blood pressure 73 mm[Hg] MD Merrill Doherty Work Phone: [facility] 12-14-2022 15:27-0400 Heart rate 69 /min MD Merrill Doherty Work Phone: [facility] 12-14-2022 15:27-0400 Respiratory rate 16 /min MD Merrill Doherty Work Phone: [facility] 12-14-2022 15:27-0400 SaO2% (BldA) [Mass fraction] 97 % MD Merrill Doherty Work Phone: [facility] 12-14-2022 15:27-0400 Systolic blood pressure 115 mm[Hg] MD Merrill Doherty Work Phone: [facility] 05-31-2022 14:45-0500 Body temperature 97.8 [degF] MD Merrill Doherty Work Phone: [facility] 05-31-2022 14:45-0500 Body weight 59 kg MD Merrill Doherty Work Phone: [facility] 05-31-2022 14:45-0500 Diastolic blood pressure 67 mm[Hg] MD Merrill Doherty Work Phone: [facility] 05-31-2022 14:45-0500 Heart rate 61 /min MD Merrill Doherty Work Phone: [facility] 05-31-2022 14:45-0500 Respiratory rate 16 /min MD Merrill Doherty Work Phone: [facility] 05-31-2022 14:45-0500 SaO2% (BldA) [Mass fraction] 98 % MD Merrill Doherty Work Phone: [facility] 05-31-2022 14:45-0500 Systolic blood pressure 109 mm[Hg] MD Merrill Doherty Work Phone: [facility] 01-13-2022 14:22-0400 Body temperature 96.1 [degF] MD Merrill Doherty Work Phone: [facility] 01-13-2022 14:22-0400 Body weight 58.96 kg MD Merrill Doherty Work Phone: [facility] 01-13-2022 14:22-0400 Diastolic blood pressure 68 mm[Hg] MD Merrill Doherty Work Phone: [facility] 01-13-2022 14:22-0400 Heart rate 63 /min MD Merrill Doherty Work Phone: [facility] 01-13-2022 14:22-0400 Respiratory rate 16 /min MD Merrill Doherty Work Phone: [facility] 01-13-2022 14:22-0400 SaO2% (BldA) [Mass fraction] 98 % MD Merrill Doherty Work Phone: [facility] 01-13-2022 14:22-0400 Systolic blood pressure 102 mm[Hg] MD Merrill Doherty Work Phone: [facility] 11-04-2021 10:30-0400 Body height 154.94 cm Getachew Escalante Other [employer] Other Encounters Encounter Date Encounter Type Care Provider Facility Start: 04-29-2024 End: 04-29-2024 ambulatory DEBRA WALTERS Not Available Start: 04-29-2024 End: 04-29-2024 Office outpatient visit 15 minutes Debra Edward CARDIAC CATH TECHNOLOGIST Work Phone: [employer] Comment on above: Ischemic stroke (CMS /HCC) (Primary Dx); Paresthesia; Hyperlipidemia, unspecified hyperlipidemia type (CMS/HCC); Primary hypertension (CMS/HCC); Gait instability; 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 Start: 04-29-2024 End: 04-29-2024 Bamboo flowsheet Debra Walters CARDIAC CATH TECHNOLOGIST Work Phone: [facility] Start: 04-29-2024 End: 04-29-2024 Bamboo flowsheet Debra Walters CARDIAC CATH TECHNOLOGIST Work Phone: [facility] Start: 03-10-2024 End: 03-10-2024 ambulatory DEBRA WALTERS Not Available Start: 02-27-2024 End: 02-27-2024 Office outpatient visit 25 minutes Debra Edward CARDIAC CATH TECHNOLOGIST Work Phone: [facility] Comment on above: Ischemic stroke (CMS /HCC) (Primary Dx); Paresthesia; Hyperlipidemia, unspecified hyperlipidemia type (CMS/HCC); Primary hypertension (CMS/HCC); Gait instability; 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 Start: 02-27-2024 End: 02-27-2024 ambulatory DEBRA WALTERS Not Available Start: 02-27-2024 End: 02-27-2024 Bamboo flowsheet Debra Walters CARDIAC CATH TECHNOLOGIST Work Phone: [facility] Start: 02-27-2024 End: 02-27-2024 Bamboo flowsheet Debra Walters CARDIAC CATH TECHNOLOGIST Work Phone: [facility] Start: 12-13-2023 End: 12-13-2023 ambulatory MD Merrill Doherty Work Phone: [facility] Work Phone: Start: 12-13-2023 End: 12-13-2023 Patient encounter procedure MD Merrill Doherty Work Phone: [facility] Work Phone: Start: 12-13-2023 Registered Recurring MD Marika Doherty Work Phone: [facility] Work Phone: Start: 12-13-2023 ambulatory Merrill Doherty Facility: [facility] Start: 06-14-2023 End: 06-14-2023 ambulatory MD Merrill Doherty Work Phone: [facility] Work Phone: Start: 06-14-2023 End: 06-14-2023 Registered Recurring MD Merrill Doherty Work Phone: [facility] Work Phone: Start: 12-14-2022 End: 12-14-2022 ambulatory MD Merrill Doherty Work Phone: [facility] Work Phone: Start: 12-14-2022 End: 12-14-2022 Registered Recurring MD Merrill Doherty Work Phone: [facility] Work Phone: Start: 09-16-2022 End: 09-17-2022 ambulatory ROBINSON COCO . Facility: Start: 05-31-2022 End: 05-31-2022 ambulatory MD Merrill Doherty Work Phone: [facility] Work Phone: Start: 05-31-2022 End: 05-31-2022 Registered Recurring MD Merrill Doherty Work Phone: [facility] Start: 03-20-2022 End: 03-22-2022 Evaluation and management of inpatient DR MERRILL DOHERTY . Facility: Start: 01-13-2022 End: 01-13-2022 Registered Recurring MD Merrill Doherty Work Phone: [facility] Start: 12-20-2021 End: 12-29-2021 Evaluation and management of inpatient OBINNA GARRETT Facility:[facility] Start: 12-20-2021 End: 12-20-[address] OBINNA GARRETT . Facility: Start: 11-10-2021 End: 11-13-2021 Evaluation and management of inpatient DR MERRILL DOHERTY . Facility: Start: 11-04-2021 End: 11-04-2021 ambulatory Getachew Escalante Other [employer] Other Start: 11-04-2021 Office outpatient vi sit 15 minutes Getachew Escalante [facility] Start: 06-29-2021 End: 06-29-2021 ambulatory Getachew Escalante Other [employer] Other Start: 06-29-2021 Postop follow up vis [...] [address] [place] [address] Debra Walters NP [address] [place] [address] [facility] [place] [facility] Start: 04-01-2024 End: 04-01-2024 Patient encounter procedure 04/01/2024 4:00 PM EDT Office Visit [facility] [place] [facility] [place] [address] Debra Walters NP [address] [place] [address] [facility] [place] [facility] Start: 03-10-2024 End: 03-10-2024 Clinical Support 03/10/2024 3:20 PM EDT Clinical Support [facility] [place] [address] [facility] [place] [address] [facility] [place] [facility] Start: 02-27-2024 End: 02-27-2024 Patient encounter procedure 02/27/2024 4:20 PM EDT Office Visit [facility] [place] [address] [facility] [place] [address] Debra Walters NP [address] [facility] [place] [address] [facility] Comment on above: Arrived Start: 02-27-2024 End: 02-26-2025 US.doppler Carotid arteries - bilateral Vascular US carotid artery duplex bilateral Imaging Routine Ischemic stroke (CMS/HCC) Expected: 02/27/2024 (Approximate), Expires: 02/26/2025 [facility] Work Phone: Comment on above: Expected: 02/27/2024 (Approximate), Expires: 02/26/2025 Start: 02-17-2024 Influenza vaccination Influenz a Vaccine (#1) [facility] Cancer Ag 125 [Units/volume] in Serum or Plasma [facility] Work Phone: Cancer Ag 125 [Units/volume] in Serum or Plasma [facility] Cancer Ag 125 [Units/volume] in Serum or Plasma [facility] Cancer Ag 125 [Units/volume] in Serum or Plasma [facility] Cancer Ag 125 [Units/volume] in Serum or Plasma [facility] Comprehensive metabo lic 1999 panel - Serum or Plasma [facility] Work Phone: Comprehensive metabo lic 1999 panel - Serum or Plasma [facility] Comprehensive metabo lic 1999 panel - Serum or Plasma [facility] Comprehensive metabo lic 1999 panel - Serum or Plasma [facility] Comprehensive metabo lic 1999 panel - Serum or Plasma [facility] CT Abdomen and Pelvi s W contrast IV [facility] Work Phone: CT Abdomen and Pelvi s W contrast IV [facility] CT Abdomen and Pelvi s W contrast IV [facility] CT Abdomen and Pelvi s WO and W contrast IV [facility] Immunizations Immunization Date Immunization Notes Care Provider Fa [facility] 04-04-2022 influenza virus vaccine, unspecified formulation Debra Walters NP Work Phone: [facility] 04-29-2021 Fluzone QIV High-Dos e 65YR+ MD Merrill Doherty Work Phone: [facility] 06-18-2019 influenza virus vaccine, unspecified formulation MD Merrill Doherty Work Phone: [facility] 06-18-2019 pneumococcal polysaccharide vaccine, 23 valent Getachew Escalante Other [facility] 06-18-2019 influenza, high dose seasonal, preservative-free Getachew Escalante Other [employer] Other Payers Date Payer Category Payer Private Health Insurance [employer] [id number] 2024 Unknown [employer] [id number] 2024-Present [address] [place] [address] [id number] 2021 Self-pay [id number] 2007 Medicare [id number] 1959 Medicare [id number] 1959 Unknown [id number] 1946 Unknown [id number]. 2.593 1946 Unknown [id number] [id number]. 2.593 1946 Unknown [id number] [id number]. 2.593 1946 Unknown [id number] [id number]. 2.593 1946 Unknown [id number] [id number]. 2.1259 1946 Unknown [id number] [id number]. 2.1259 1946 Unknown [id number] [id number]. 2.1259 1946 Unknown [id number] [id number]. 2.647 Unknown Private Pay [facility] [id number] Unknown [id number] [id number] Social History Date Type Detail Facility Start: 02-27-2024 End: 04-29-2024 Sex Assigned At [facility] [employer] Other Start: 01-13-2022 End: 12-27-2023 Tobacco smoking status NHIS Never smoked tobacco (finding) [facility] Start: 1945 Sex Assigned At Female [facility] Start: 12-27-2023 Tobacco use and exposure Smokeless tobacco non-user [facility] Start: 03-06-2024 End: 04-29-2024 Alcoholic beverage intake Ex-drinker (finding) [facility] Start: 02-27-2024 End: 04-29-2024 History of Social function [facility] Start: 1945 Sex assigned at Not on file [facility] Start: 12-27-2023 Alcoholic beverage intake Lifetime non-drinker (finding) [facility] Medical Equipment Procedure Code Equipment Code Equipment Original Text Equipment Identifier Dates 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 Bipolar femoral head outer component, hemiarthroplasty ()[id number] FDA Start: 04-21-2021 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 Femoral head/stem prosthesis adaptor ()[id number] FDA Start: 04-21-2021 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 Press-fit femoral stem prosthesis ()[id number] FDA Start: 04-21-2021 Clinical Notes 11-06-2006 to [...] or concerns. The patient's primary language is Zimbabwean. The patient's daughter provided translation for today's appointment, stating she is fluent in both Icelandic and [place]an. I did offer a professional code inspector service. The patient and her daughter politely declined this. They understand that, by refusing a professional code inspector, there is increased risk for miscommunication, misunderstanding, [...] Arthritis COVID-19 NSTEMI (non-ST elevated myocardial infarction) ([facility]) Sepsis ([facility]) Stroke ([facility]) UTI (urinary tract infection) 12/2022 Past Surgical [...] wrist extensors , wrist flexor , and batter mixer helper strength 5/5. LUE strength deltoid , biceps , triceps , wrist extensors , wrist flexor , and batter mixer helper strength 5/5. RLE strength iliopsoas, quadriceps, tibialis [...] reflex 2+. LLE Knee reflex 2+. Coordination: Ycrjyi-lm-rfhk testing normal. Rapid alternating movements are normal. Gait: Steady with use of walker. Review and summary of old records: Carotid ultrasound at [facility] on 03/10/24: No hemodynamically significant stenosis noted. Mild intimal thickening. 1 to 29% stenosis of the right and left ICA. Antegrade flow of the right and left VA. Normal triphasic waveforms in the right and left SCA. Sodium level on 01/07/23: 138. ECHO on 01/04/23: No mention of mass or thrombus. EF 55% CT of the brain without contrast at [facility] on 01/04/23: Stable remote infarcts left basal [...] new neurologic deficits. Hyperlipidemia, unspecified hyperlipidemia type ([facility]/HCC) PLAN: - Follow up with primary care provider for management - Continue statin (prescription and management per PCP) Primary hypertension ([facility]) PLAN: - Follow up with primary care [...] new or worsening symptoms. Debra Walters NP [facility] Advanced Neurology documented in this encounter [facility] 02-27-2024 History of Presen t [...] appointment, stating she is fluent in both Icelandic and [place]an. I did offer a professional code inspector service. However, the patient and her daughter declined this. They understand that, by refusing a professional code inspector, there is increased risk for miscommunication, misunderstanding, [...] Arthritis COVID-19 NSTEMI (non-ST elevated myocardial infarction) ([facility]) Sepsis ([facility]) Stroke ([facility]) UTI (urinary tract infection) 12/2022 Past Surgical [...] wrist extensors , wrist flexor , and batter mixer helper strength 5/5. LUE strength deltoid , biceps , triceps , wrist extensors , wrist flexor , and batter mixer helper strength 5/5. RLE strength iliopsoas, quadriceps, tibialis [...] reflex 2+. LLE Knee reflex 2+. Coordination: Fvvwzd-vj-yxof testing normal. Rapid alternating movements are normal. Gait: Steady with use of walker. Review and summary of old records: Sodium level on 01/07/23: 138. ECHO on 01/04/23: No mention of mass or thrombus. EF 55% CT of the brain without contrast at [facility] on 01/04/23: Stable remote infarcts left basal [...] all orders for this visit: Ischemic stroke ([facility]) The patient has a history of multiple [...] - Carotid ultrasound Hyperlipidemia, unspecified hyperlipidemia type ([facility]) PLAN: - Follow up with primary care provider for management - Continue statin (prescription and management per PCP) Primary hypertension ([facility]) PLAN: - Follow up with primary care [...] new or worsening symptoms. Debra Walters NP [facility] Advanced Neurology documented in this encounter [facility] 02-27-2024 Instructions Debra Walters NP - 02/27/2024 4:20 PM EDT - Carotid ultrasound documented in this encounter [facility] 12-15-2022 Progress note Note Date/Time December 14, 2022 3:30pm [place] [address] Hem/Onc Follow Up Note - OP Signed Patient: Sabi Satnamaria MR#: [id number] : 1945 Acct:[id number] Age/Sex: 77 / F Type: REG RCR Copies to: Merrill Doherty MD~ Subjective Date/Time of Service: Date of Service: 12/14/2022 Time of Service: 15:29 Chief Complaint: Patient is here today for a 6 month follow up visit and go overCT scan and labs. No new concerns HPI: 12/14/2022: Sabi is here for 6 month followup with daughter who acts as her code inspector. She denies any abdominal pain or bloating [...] followup with daughter who acts as her code inspector. Since last visit patient has not had [...] with limited ability to speak and understand Icelandic. 01/13/2022: Sabi is accompanied by her daughter who acts as her code inspector. She was hospitalized at [facility] for a bowel obstruction about 3 weeks [...] 35-minute visit. 10/12/2021: This patient is primarily Zimbabwean-speaking and is accompanied by mary grace who acts as her code inspector. She is here for transfer of care from Dr. Fernandez who has left the practice. She was hospitalized in early April 2021 for fractured right hip--s/p hemiarthroplasty 04/21/2022. Prior hysterectomy in the early at [facility], ovaries intact. During that hospital stay she [...] daughter presents with her. She is her code inspector. The patient had a hysterectomy at [facility]. I was told previously this was in [place]. Supposedly this was for uterine cancer. I do not know she had an oophorectomy. Below is the recent summary of findings while she was admitted after the hip fracture: Interval History: CA-125 is normal. Urology note and procedure is noted. Her CT scan is reviewedbelow: Patient: Sabi Santamaria MR#: [id number] : 1945 Acct:[id number] Age/Sex: 76 / F ADM Date: 1 Loc: 4N Room: 1N5976-9 Type: ADM IN Attending Dr: Jayden Abad [...] a 76-year-old female who does not speak Icelandic. She was found down on the floor after stroke. She has a history of a history of hysterectomy or some type of gynecologic surgery in [place] in the distant past. Her CT scan shows either a left-sided pelvic mass or left sided enlarged ovary. CA-125 is currently pending. As above she does not speak Icelandic. An rehabilitator is not in the room. Her CT and reports are reviewed. She had a right femoral head fracture and is status post surgery. She is recovering well. - Summary of Therapies Summary of Therapies: 1. History of a history of hysterectomy or some type of gynecologic surgery in [facility] in about 1979, ovaries intact--unclear prior pathology. [...] PO DAILY 06/14/21 [History Confirmed 12/14/22] omega 8-ipn-wfy-fish oil 1,200 mg (144 mg-216 mg) capsule [...] Thin but not cachectic. Daughter acts as code inspector. HEAD / FACE: Normocephalic. EYES: Pupils are [...] % (Auto) 56.9, Lymph % (Auto) 31.0, Ross % (Auto) 8.4, Eos % (Auto) 3.1, Baso % (Auto) 0.6, Nucleat RBC Rel Count 0.2, Neut # (Auto) 2.8, Lymph # (Auto) 1.5, Ross # (Auto) 0.4, Eos # (Auto) 0.1, [...] review her operative and pathological findings from [facility] where she had original hysterectomy in the [...] surgery. She was wheelchair-bound and [facility] a [place]. 10/12/2021: She transferred care to dc with initial visit 10/12/[address] Fernandez [...] by hospitalization for small bowel obstruction at [facility] which resolved with NG tube and no [...] this plan. 05/31/2022: Sabi presents with her iqtnzawf-kp-wlr for follow-up. She no longer has any abdominal pain or distention and is eating a normal diet with no further episodes of small bowel obstruction. She does not have any detectable adenopathy by exam or by restaging 05/16/2022 CT abdomen and pelvis reviewed with the patient and her xitmdudj-ow-qkr today. She has unchanged cyst of the [...] develops clinical adenopathy. The patient and her stdtmmzx-yx-bnh are in agreement with this plan over [...] type symptoms. She is no longer in [facility] and moved back into her home with [...] follow with symptoms and serial imaging. (6) Non-Icelandic speaking patient Patient expressed understanding and was able to give review of systems with limited Icelandic. Different family members served as translators and if we slip box changer we will obtain a translation service for her follow-up appointments. - Time with Patient Time Spent with Patient (Follow Up Visit): 35 minutes - Review restaging images and reports, repeat Ca 125, symptoms and exam, surveillance plan Coordination of Care & Counseling Time: Greater than 50% of time spent with patient was for coordination of care (as documented) and qgqx-za-umoh counseling of patient and/or family. Dictated By: Bonnie Hendricks MD DD/ [id number] Signed By: <Electronically signed by MD Bonnie Hendricks> 12/15/22 0901 [facility] Work Phone: 1(104) 488-784212-14-2022 Progress note Author Bonnie Hendricks [facility] May 31, 2022 4:00pm Note Date/Time May 31, 2022 2:47pm [facility] [place] [address] Hem/Onc Follow Up Note - OP Signed Patient: Sabi Santamaria MR#: [id number] : 1945 Acct:[id number] Age/Sex: 77 / F Type: REG RCR Copies to: Merrill Doherty MD~ Subjective Date/Time of Service: Date of Service: 05/31/2022 Time of Service: 14:46 Chief Complaint: Patient is here today for 5 month follow up visit and go over labs and CT scan. No new concerns HPI: 05/31/2022: Sabi is here for about 4 month followup with daughter who acts as her code inspector. Since last visit patient has not had [...] with limited ability to speak and understand Icelandic. 01/13/2022: Sabi is accompanied by her daughter who acts as her code inspector. She was hospitalized at [facility] for a bowel obstruction about 3 weeks [...] 35-minute visit. 10/12/2021: This patient is primarily Zimbabwean-speaking and is accompanied by mary grace who acts as her code inspector. She is here for transfer of care from Dr. Fernandez who has left the practice. She was hospitalized in early April 2021 for fractured right hip--s/p hemiarthroplasty 04/21/2022. Prior hysterectomy in the early at [facility], ovaries intact. During that hospital stay she [...] daughter presents with her. She is her code inspector. The patient had a hysterectomy at [facility]. I was told previously this was in [place]. Supposedly this was for uterine cancer. I do not know she had an oophorectomy. Below is the recent summary of findings while she was admitted after the hip fracture: Interval History: CA-125 is normal. Urology note and procedure is noted. Her CT scan is reviewedbelow: Patient: Sabi Santamaria MR#: [id number] : 1945 Acct:[id number] Age/Sex: 76 / F ADM Date: 1 Loc: 4 Room: [address] [place] [address] Type: ADM IN Attending Dr: Jayden Abad [...] a 76-year-old female who does not speak Icelandic. She was found down on the floor after stroke. She has a history of a history of hysterectomy or some type of gynecologic surgery in [place] in the distant past. Her CT scan shows either a left-sided pelvic mass or left sided enlarged ovary. CA-125 is currently pending. As above she does not speak Icelandic. An rehabilitator is not in the room. Her CT and reports are reviewed. She had a right femoral head fracture and is status post surgery. She is recovering well. - Summary of Therapies Summary of Therapies: 1. History of a history of hysterectomy or some type of gynecologic surgery in [facility] in about 1979, ovaries intact--unclear prior pathology. [...] bisacodyl 10 mg rectal suppository 10 mg MA DAILY PRN Constipation #0 ea 05/23/21 [Rx [...] PO DAILY 06/14/21 [History Confirmed 05/31/22] omega 4-wha-scu-fish oil 1,200 mg (144 mg-216 mg) capsule [...] Thin but not cachectic. Daughter acts as code inspector. HEAD / FACE: Normocephalic. EYES: Pupils are [...] review her operative and pathological findings from [facility] where she had original hysterectomy in the [...] surgery. She was wheelchair-bound and in a penitentiary. 10/12/2021: She transferred care to dc with initial visit 10/12/[address] Fernandez [...] by hospitalization for small bowel obstruction at [facility] which resolved with NG tube and no [...] plan. 05/31/2022: Kelly Oneil presents with her gwtyfdnj-ca-rqc for follow-up. She no longer has any abdominal pain or distention and is eating a normal diet with no further episodes of small bowel obstruction. She does not have any detectable adenopathy by exam or by restaging 05/16/2022 CT abdomen and pelvis reviewed with the patient and her gxjkkmss-id-fes today. She has unchanged cyst of the [...] develops clinical adenopathy. The patient and her bwbmhnwq-px-riy are in agreement with this plan over [...] type symptoms. She [facility] in [facility] and moved back into her home with [...] follow with symptoms and serial imaging. (7) Non-Icelandic speaking patient Patient expressed understanding and was able to give review of systems with limited Icelandic. Different family members served as translators and if we slip box changer we will obtain a translation service for her follow-up appointments. - Time with Patient Time Spent with Patient (Follow Up Visit): 35 minutes - Review restaging images and reports, repeat Ca 125, symptoms and exam, surveillance plan Coordination of Care & Counseling Time: Greater than 50% of time spent with patient was for coordination of care (as documented) and fwsb-gv-uyeo counseling of patient and/or family. Dictated By: Bonnie Hendricks MD DD/ 1446 Signed By: <Electronically signed by MD Bonnie Hendricks> 05/31/22 [address] [facility] Work Phone: 1(827) 817-706707-30-2022 Progress note Author Bonnie Hendricks [facility] January 14, 2022 12:30pm Note Date/Time January 13, 2022 2:33 pm [facility] [place] [address] Hem/Onc Follow Up Note - OP Signed Patient: Sabi Santamaria MR#: [id number] : 1945 Acct:[id number] Age/Sex: 76 / F Type: REG RCR Copies to: Merrill Doherty MD~ Subjective Date/Time of Service: Date of Service: 01/13/2022 Time of Service: 14:32 Chief Complaint: Patient is here for a follow up visit for pelvic mass and had alymph node biopsy ultrasound. She also was at [facility] for bowel obstruction and didnot have to do surgery and is doing well HPI: 01/13/2022: Sabi is accompanied by her daughter who acts as her code inspector. She was hospitalized at [facility] for a bowel obstruction about 3 weeks [...] 35-minute visit. 10/12/2021: This patient is primarily Zimbabwean-speaking and is accompanied by mary grace who acts as her code inspector. She is here for transfer of care from Dr. Fernandez who has left the practice. She was hospitalized in early April 2021 for fractured right hip--s/p hemiarthroplasty 04/21/2022. Prior hysterectomy in the early at [facility], ovaries intact. During that hospital stay she [...] daughter presents with her. She is her code inspector. The patient had a hysterectomy at [facility]. I was told previously this was in [place]. Supposedly this was for uterine cancer. I do not know she had an oophorectomy. Below is the recent summary of findings while she was admitted after the hip fracture: Interval History: CA-125 is normal. Urology note and procedure is noted. Her CT scan is reviewedbelow: Patient: Sabi Santamaria MR#: [id number] : 1945 Acct:[id number] Age/Sex: 76 / F ADM Date: 1 Loc: 4 Room: [id number] Type: ADM IN Attending Dr: Jayden Abad [...] a 76-year-old female who does not speak Icelandic. She was found down on the floor after stroke. She has a history of a history of hysterectomy or some type of gynecologic surgery in [place] in the distant past. Her CT scan shows either a left-sided pelvic mass or left sided enlarged ovary. CA-125 is currently pending. As above she does not speak Icelandic. An rehabilitator is not in the room. Her CT [...] bisacodyl 10 mg rectal suppository 10 mg MA DAILY PRN Constipation #0 ea 05/23/21 [Rx [...] PO DAILY 06/14/21 [History Confirmed 11/09/21] omega 6-duy-jut-fish oil 1,200 mg (144 mg-216 mg) capsule [...] Thin but not cachectic. Daughter acts as code inspector. HEAD / FACE: Normocephalic. EYES: Pupils are [...] review her operative and pathological findings from [facility] where she had original hysterectomy in the [...] surgery. She was wheelchair-bound and in a penitentiary. 10/12/2021: She transferred care to dc with initial visit 10/12/[address] Fernandez [...] by hospitalization for small bowel obstruction at [facility] which resolved with NG tube and no [...] type symptoms. She is no longer in [facility] and moved back into her home with [...] for coordination of care (as documented) and mjat-rr-nnry counseling of patient and/or family. Dictated By: Bonnie Hendricks MD DD/ 1432 Signed By: <Electronically signed by MD Bonnie Hendricks> 01/14/22 12[address] [facility] Work Phone: 1(892) 788-482707-30-2022 NoteMR#: [id number] [facility] Pt. Name: Sabi Santamaria Admitted: 12/20/2021 Discharged: 12/29/2021 Date of : 1945 Physician: Minesh Daly M.D. DISCHARGE SUMMARY DISCHARGE ATTENDING: Minesh Daly M.D. PRINCIPAL DIAGNOSIS: Small bowel obstruction. SECONDARY DIAGNOSIS: None. HISTORY: This is 76-year-old female with past medical history of hypertension, hyperlipidemia, and CVA, was transferred from [facility] for small bowel obstruction. The patient complained [...] Davalos MD Date Trans: 01/14/2022 12:43 A/chen [id number] cc: Merrill Doherty M.D. [address] [place] [address] Evaluation [facility]* Encounter Date Diagnosis Assessment [...] on mobility and with cane transition from [employer] Other 04-28-2022 Progress note Author Bonnie Hendricks [facility] October 13, 2021 11:29am Note Date/Time October 12, 2021 11: 53am [facility] at [address] [address] Hem/Onc Follow Up Note - OP Signed Patient: Sabi Santamaria MR#: [id number] : 1945 Acct:[id number] Age/Sex: 76 / F Type: REG RCR Copies to: Merrill Doherty MD~ Subjective Date/Time of Service: Date of Service: 10/12/2021 Time of Service: 11:53 Chief Complaint: Patient is a former patient of Dr Fernandez here for a 4 month follow up with scans for review. HPI: 10/12/2021: This patient is primarily Zimbabwean-speaking and is accompanied by mary grace who acts as her code inspector. She is here for transfer of care from Dr. Fernandez who has left the practice. She was hospitalized in early April 2021 for fractured right hip--s/p hemiarthroplasty 04/21/2022. Prior hysterectomy in the early at [facility], ovaries intact. During that hospital stay she [...] daughter presents with her. She is her code inspector. The patient had a hysterectomy at [facility]. I was told previously this was in [place]. Supposedly this was for uterine cancer. I do not know she had an oophorectomy. Below is the recent summary of findings while she was admitted after the hip fracture: Interval History: CA-125 is normal. Urology note and procedure is noted. Her CT scan is reviewedbelow: Patient: Sabi Santamaria MR#: Neelam [id number] : 1945 Acct:[id number] Age/Sex: 76 / F ADM Date: Loc: 4 Room: [address] [place] [address] Type: ADM IN Attending Dr: Jayden Abad [...] a 76-year-old female who does not speak Icelandic. She was found down on the floor after stroke. She has a history of a history of hysterectomy or some type of gynecologic surgery in [place] in the distant past. Her CT scan shows either a left-sided pelvic mass or left sided enlarged ovary. CA-125 is currently pending. As above she does not speak Icelandic. An rehabilitator is not in the room. Her CT [...] Negative for environmental allergies and food allergies. [facility] - History Attestation statement: The following information [...] bisacodyl 10 mg rectal suppository 10 mg MA DAILY PRN #0 ea 05/23/21 [Rx Confirmed [...] PO DAILY 06/14/21 [History Confirmed 10/12/21] omega 3-aib-xwf-fish oil 1,200 mg (144 mg-216 mg) capsule [...] Thin but not cachectic. Son acts as code inspector. HEAD / FACE: Normocephalic. EYES: Pupils are [...] review her operative and pathological findings from [facility] where she had original hysterectomy in the [...] surgery. She was wheelchair-bound and in a penitentiary. She transferred care to dc with initial visit 10/12/[address] Fernandez [...] type symptoms. She is no longer in [facility] and moved back into her home with [...] for coordination of care (as documented) and lhig-ho-faic counseling of patient and/or family. Dictated By: Bonnie Hendricks MD DD/ 1153 Signed By: <Electronically signed by MD Bonnie Hendricks> 10/13/21 112[address] [facility] Work Phone: 1(642) 792-384601-12-2022 Evaluation note* Encounter Date Diagnosis Assessment Notes [...] as documented in the electronic medical record. [employer] Other 12-28-2021 Progress note Author Rachid Fernandez [facility] June 14, 2021 11:33am Note Date/Time June 14, 2021 11:28am [facility] [place] [address] Hem/Onc Follow Up Note - OP Signed Patient: Sabi Santamaria MR#: [id number] : 1945 Acct:[id number] Age/Sex: 76 / F Type: REG RCR [...] daughter presents with her. She is her code inspector. The patient had a hysterectomy at [facility]. I was told previously this was in [place]. Supposedly this was for uterine cancer. I do not know she had an oophorectomy. Below is the recent summary of findings while she was admitted after the hip fracture: Interval History: CA-125 is normal. Urology note and procedure is noted. Her CT scan is reviewedbelow: Patient: Sabi Santamaria MR#: [id number] : 1945 Acct:[id number] Age/Sex: 76 / F ADM Date: 1 Loc: 4 Room: [id number] Type: ADM IN Attending Dr: Jayden Abad [...] a 76-year-old female who does not speak Icelandic. She was found down on the floor after stroke. She has a history of a history of hysterectomy or some type of gynecologic surgery in [place] in the distant past. Her CT scan shows either a left-sided pelvic mass or left sided enlarged ovary. CA-125 is currently pending. As above she does not speak Icelandic. An rehabilitator is not inthe room. Her CT and reports are reviewed. She had a right femoral head fracture and is status post surgery. She is recovering well. Subjective/ROS - Narrative: She appears to be healing well. Talking with her daughter today the patient appears to be depressed. She is asking for medication. [facility] - Medical History Medical History: Medical History [...] bisacodyl 10 mg rectal suppository 10 mg MA DAILY PRN #0 ea 05/23/21 [Rx] carvedilol [...] review her operative and pathological findings from [facility] where she has surgery. I reviewed the differential with the patient and daughter. At this time I want to review the operative and pathological findings and repeat the CT abdomen pelvis in 4 months. Her CA-125 is normal. The patient is recovering from her stroke and surgery. She is wheelchair-bound and in a penitentiary. (2) Depression The patient describes depressive type symptoms. I have recommended that she seethe attending physician and review her complaints with the attending physician for therapy. I have also recommended they call the yarsani and have communion given to her as she has not had this for some time now. - Time with Patient Coordination of Care & Counseling Time: Greater than 50% of time spent with patient was for coordination of care (as documented) and ggrj-kl-rhik counseling of patient and/or family. Dictated By: Rachid Fernandez MD DD/ 1126 Signed By: <Electronically signed by MD Rachid Fernandez> 06/14/21 1958 [facility] Work Phone: 1(908) 693-726905-22-2007 History general Narrative - Reported* Type Description Date Medical History Rheumatoid arthritis Medical History hypertension Medical History arthritis Medical History cancer Surgical History L knee scope SBS 11/06/2006 Surgical History hysterectomy Surgical History bone spurs usama. heels Surgical History L TKA JAB 01/27/2019 [facility] [employer] Other Evaluation noteNo [facility] [employer] Other Evaluation note* Diagnosis Onset Date Resolution Status Compression fracture of T9 vertebra chronic Depression chronic Pelvic mass chronic S/P hip hemiarthroplasty chr onic Ischemic stroke resolved [facility] Work Phone: Evaluation note* Diagnosis Onset Date Resolution Status Bowel wall thickening chroni c Compression fracture of T9 vertebra chronic Depression chronic Non-Icelandic speaking patient chronic Pelvic mass chronic S/P hip hemiarthroplasty chr onic Ischemic stroke resolved [facility] Work Phone: evaluation note* Diagnosis Onset Date Resolution Status Bowel wall thickening chroni c Compression fracture of T9 vertebra chronic Depression chronic Non-Icelandic speaking patient chronic Pelvic mass chronic S/P hip hemiarthroplasty chr onic Ischemic stroke resolved Bowel wall thickening chroni c Non-Icelandic speaking patient chronic Pelvic mass chronic S/P hip hemiarthroplasty chr onic Ischemic stroke resolved [facility] Work Phone: Evaluation note* Diagnosis Ischemic stroke [...] encounter [facility] note Author Bonnie Hendricks [facility] January 14, 2022 12:30pm Note Date/Time January 13, 2022 2:33 pm [facility] [place] [address] Hem/Onc Follow Up Note - OP Signed Patient: Sabi Santamaria MR#: [id number] : 1945 Acct:[id number] Age/Sex: 76 / F Type: REG RCR Copies to: Merrill Doherty MD~ Subjective Date/Time of Service: Date of Service: 01/13/2022 Time of Service: 14:32 Chief Complaint: Patient is here for a follow up visit for pelvic mass and had alymph node biopsy ultrasound. She also was at [facility] for bowel obstruction and didnot have to do surgery and is doing well HPI: 01/13/2022: Sabi is accompanied by her daughter who acts as her code inspector. She was hospitalized at [facility] for a bowel obstruction about 3 weeks [...] 35-minute visit. 10/12/2021: This patient is primarily Zimbabwean-speaking and is accompanied by mary grace who acts as her code inspector. She is here for transfer of care from Dr. Fernandez who has left the practice. She was hospitalized in early April 2021 for fractured right hip--s/p hemiarthroplasty 04/21/2022. Prior hysterectomy in the early at [facility], ovaries intact. During that hospital stay she [...] daughter presents with her. She is her code inspector. The patient had a hysterectomy at [facility]. I was told previously this was in [place]. Supposedly this was for uterine cancer. I do not know she had an oophorectomy. Below is the recent summary of findings while she was admitted after the hip fracture: Interval History: CA-125 is normal. Urology note and procedure is noted. Her CT scan is reviewedbelow: Patient: Sabi Santamaria MR#: [id number] : 1945 Acct:[id number] Age/Sex: 76 / F ADM Date: 1 Loc: 4N Room: 4V5665-4 Type: ADM IN Attending Dr: Jayden Abad [...] a 76-year-old female who does not speak Icelandic. She was found down on the floor after stroke. She has a history of a history of hysterectomy or some type of gynecologic surgery in [place] in the distant past. Her CT scan shows either a left-sided pelvic mass or left sided enlarged ovary. CA-125 is currently pending. As above she does not speak Icelandic. An rehabilitator is not in the room. Her CT [...] Negative for environmental allergies and food allergies. [facility] - History Attestation statement: The following information [...] bisacodyl 10 mg rectal suppository 10 mg MA DAILY PRN Constipation #0 ea 05/23/21 [Rx [...] PO DAILY 06/14/21 [History Confirmed 11/09/21] omega 6-rcx-rcz-fish oil 1,200 mg (144 mg-216 mg) capsule [...] Thin but not cachectic. Daughter acts as code inspector. HEAD / FACE: Normocephalic. EYES: Pupils are [...] review her operative and pathological findings from [facility] where she had original hysterectomy in the [...] surgery. She was wheelchair-bound and in a penitentiary. 10/12/2021: She transferred care to me with [...] by hospitalization for small bowel obstruction at [facility] which resolved with NG tube and no [...] type symptoms. She is no longer in [facility] and moved back into her home with [...] for coordination of care (as documented) and tmjp-hf-kgbw counseling of patient and/or family. Dictated By: Bonnie Hendricks MD DD/ 1432 Signed By: <Electronically signed by MD Bonnie Hendricks> 01/14/22 1230 [facility] Work Phone: Progress note Author Bonnie Hendricks [facility] May 31, 2022 4:00pm Note Date/Time May 31, 2022 2:47pm [facility] [place] [address] Hem/Onc Follow Up Note - OP Signed Patient: Sabi Santamaria MR#: [id number] : 1945 Acct:[id number] Age/Sex: 77 / F Type: REG RCR Copies to: Merrill Doherty MD~ Subjective Date/Time of Service: Date of Service: 05/31/2022 Time of Service: 14:46 Chief Complaint: Patient is here today for 5 month follow up visit and go over labs and CT scan. No new concerns HPI: 05/31/2022: Sabi is here for about 4 month followup with daughter who acts as her code inspector. Since last visit patient has not had [...] with limited ability to speak and understand Icelandic. 01/13/2022: Sabi is accompanied by her daughter who acts as her code inspector. She was hospitalized at [facility] for a bowel obstruction about 3 weeks [...] 35-minute visit. 10/12/2021: This patient is primarily Zimbabwean-speaking and is accompanied by mary grace who acts as her code inspector. She is here for transfer of care from Dr. Fernandez who has left the practice. She was hospitalized in early April 2021 for fractured right hip--s/p hemiarthroplasty 04/21/2022. Prior hysterectomy in the early at [facility], ovaries intact. During that hospital stay she [...] daughter presents with her. She is her code inspector. The patient had a hysterectomy at [facility]. I was told previously this was in [place]. Supposedly this was for uterine cancer. I do not know she had an oophorectomy. Below is the recent summary of findings while she was admitted after the hip fracture: Interval History: CA-125 is normal. Urology note and procedure is noted. Her CT scan is reviewedbelow: Patient: Sabi Santamaria MR#: [id number] : 1945 Acct:[id number] Age/Sex: 76 / F ADM Date: 1 Loc: Room: [address] [place] [address] Type: ADM IN Attending Dr: Jayden Abad [...] a 76-year-old female who does not speak Icelandic. She was found down on the floor after stroke. She has a history of a history of hysterectomy or some type of gynecologic surgery in [place] in the distant past. Her CT scan shows either a left-sided pelvic mass or left sided enlarged ovary. CA-125 is currently pending. As above she does not speak Icelandic. An rehabilitator is not in the room. Her CT and reports are reviewed. She had a right femoral head fracture and is status post surgery. She is recovering well. - Summary of Therapies Summary of Therapies: 1. History of a history of hysterectomy or some type of gynecologic surgery in [facility] in about 1979, ovaries intact--unclear prior pathology. [...] Negative for environmental allergies and food allergies. [facility] - History Attestation statement: The following information [...] bisacodyl 10 mg rectal suppository 10 mg MA DAILY PRN Constipation #0 ea 05/23/21 [Rx [...] PO DAILY 06/14/21 [History Confirmed 05/31/22] omega 9-lbn-wjs-fish oil 1,200 mg (144 mg-216 mg) capsule [...] Thin but not cachectic. Daughter acts as code inspector. HEAD / FACE: Normocephalic. EYES: Pupils are [...] review her operative and pathological findings from [facility] where she had original hysterectomy in the [...] surgery. She was wheelchair-bound and in a penitentiary. 10/12/2021: She transferred care to me with [...] by hospitalization for small bowel obstruction at [facility] which resolved with NG tube and no [...] plan. 05/31/2022: Kelly Oneil presents with her bfjxawtt-qr-tge for follow-up. She no longer has any abdominal pain or distention and is eating a normal diet with no further episodes of small bowel obstruction. She does not have any detectable adenopathy by exam or by restaging 05/16/2022 CT abdomen and pelvis reviewed with the patient and her amwtmeds-jv-xnf today. She has unchanged cyst of the [...] develops clinical adenopathy. The patient and her zdevwekh-hi-mnb are in agreement with this plan over [...] type symptoms. She [facility] no longer in [facility] and moved back into her home with [...] follow with symptoms and serial imaging. (7) Non-Icelandic speaking patient Patient expressed understanding and was able to give review of systems with limited Icelandic. Different family members served as translators and if we slip box changer we will obtain a translation service for her follow-up appointments. - Time with Patient Time Spent with Patient (Follow Up Visit): 35 minutes - Review restaging images and reports, repeat Ca 125, symptoms and exam, surveillance plan Coordination of Care & Counseling Time: Greater than 50% of time spent with patient was for coordination of care (as documented) and zekq-hf-ktnx counseling of patient and/or family. Dictated By: Bonnie Hendricks MD DD/ [id number] Signed By: <Electronically signed by MD Bonnie Hendricks> 05/31/22 [address] [facility] Work Phone: Summary Purpose Family History [...] g Compression fracture of T9 vertebra Depression Non-Icelandic speaking patient Pelvic mass S/P hip hemiarthroplasty Ischemic stroke Chief Complaint PET SCAN F/U Reason for Visit Bowel wall thickenin g Compression fracture of T9 vertebra Depression Non-Icelandic speaking patient Pelvic mass S/P hip hemiarthroplasty Ischemic stroke Bowel wall thickening Non-Icelandic speaking patient Pelvic mass S/P hip hemiarthroplasty Ischemic stroke Reason for Referral Specialty Diagnoses / Procedures Referred By Garrett t Referred To Contact Radiology Diagnoses Ischemic stroke (CMS/HCC) Procedures Vascular US carotid artery duplex bilateral Debra Walters, SHANT [address] [place] [phone] Referral ID Status Reason Start Date Expiration Date V isits Requested Visits Authorized [id number] Authorized 02/27/2024 08/25/2024 1 1 Additional Source Comments INFORMATION SOURCE (unrecogn ized section and content) DATE CREATED AUTHOR [facility]/11/20[facility] DATE CREATED AUTHOR AUTHOR'S ORGANIZ ATION 01/19/2022 [facility] DATE CREATED AUTHOR AUTHOR'S ORGANIZ ATION 09/20/2022 [facility] DATE CREATED AUTHOR AUTHOR'S ORGANIZ ATION 12/16/2023 [facility] DATE CREATED AUTHOR AUTHOR'S ORGANIZ ATION 05/01/2024 [facility] EPIC REASON FOR [...] BE BASED ON THE PRIMARY CLINICAL RECORDS. [employer] provides no warranty or guarantee of the accuracy or completeness of information in this document.
[2024-07-08 20:30] LABS: Troponin I High Sensitivity 228.7 pg/mL (4.0-51.3)
[2024-07-08] MEDS: ENOXAPARIN SODIUM 40 MG/0.4 ML SYRINGE SUBQ (20:45)
[2024-07-08] MEDS: LACTATED RINGER'S SOLUTION 1,000 ML 100 ML IV (20:45)
[2024-07-09] VITALS (13 sets, daily range): BP systolic 118–150; BP diastolic 73–85; PULSE 68–97; TEMP 36.6–36.8; O2SAT 93–95
[2024-07-09] MEDS: LACTATED RINGER'S SOLUTION 1,000 ML 100 ML IV (04:31)
[2024-07-09 06:21] LABS: Basophils Percent Auto 0.4 % (0.2-2.0); Eosinophils Absolute Auto 0.1 10^3/uL (0.0-0.7); Eosinophils Percent Auto 1.5 % (0.9-7.0); Hematocrit 33.8 % (36.0-48.0); Hemoglobin 11.2 g/dL (12.0-16.0); Immature Granulocytes Abs Auto 0.02 10^3/uL (0.00-0.03); Immature Granulocytes Pct Auto 0.3 % (0.0-0.5); Lymphocytes Absolute Auto 1.5 10^3/uL (1.2-3.8); Lymphocytes Percent Auto 19.5 % (20.5-60.0); Mean Corpuscular HGB Conc 33.1 g/dL (29.9-35.2); Mean Corpuscular Hemoglobin 29.3 pg (26.7-34.0); Mean Corpuscular Volume 88.5 fL (81.0-99.0); Mean Platelet Volume 9.2 fL (9.5-13.5); Monocytes Absolute Auto 0.5 10^3/uL (0.3-0.8); Monocytes Percent Auto 6.4 % (1.7-12.0); Neutrophils Absolute Auto 5.4 10^3/uL (1.4-6.5); Neutrophils Percent Auto 71.9 % (43.0-75.0); Platelet Count 254 10^3/uL (150-450); Red Blood Count 3.82 10^6/uL (4.20-5.40); Red Cell Distribution Width 14.6 % (11.0-15.0); White Blood Count 7.5 10^3/uL (4.0-11.0)
[2024-07-09 06:39] LABS: Alanine Aminotransferase 19 U/L (14-59); Albumin Globulin Ratio 0.6; Albumin Level 2.7 g/dL (3.4-5.0); Alkaline Phosphatase 93 U/L (46-116); Anion Gap 12.2; Aspartate Amino Transferase 26 U/L (15-37); BUN Creatinine Ratio 21.1; Bilirubin Total 0.8 mg/dL (0.2-1.0); Calcium 8.7 mg/dL (8.5-10.1); Carbon Dioxide 28.6 mmol/L (21.0-32.0); Chloride 105 mmol/L (98-107); Estimated GFR (African America >60 (>=60 mL/min/1.73m^2); Estimated GFR (Non-African Ame >60 (>=60 mL/min/1.73m^2); Globulin 4.2 g/dL; Glucose 95 mg/dL (74-106); Potassium 3.8 mmol/L (3.5-5.1); Sodium 142 mmol/L (136-145); Total Protein 6.9 g/dL (6.4-8.2)
[2024-07-09 06:43] LABS: Troponin I High Sensitivity 95.5 pg/mL (4.0-51.3)
--- NOTE | 2024-07-09 08:01 | P.HP_ITS ---
HPI H&P: HPI History of Present Illness Chief complaint: FALL -TODAY UTI CONFUSION ELEVATION TROPONIN Narrative: Patient seen and evaluated in emergency room status post fall, found of some mild confusion, acute UTI and elevated troponin this patient was admitted to observational status When I saw patient up on the medical surgical floor, alert, difficult secondary to her speech understanding of the Emir[place] language, unable to get carpet journeyman in at the time of my visit, the communication he did have she did appear to be alert and oriented, describes no chest pain or no abdominal pain, she does understand some Indonesian Opioid HPI Opioid Management Most Recent Pain and Opioid Data: Last Pain Scale 0 07/09/24 07:23 07/09/24 Last Pain Assessment 07/09/24 07:23 Last ORT Total Score 0 07/08/24 17:38 07/08/24 Last ORT Risk Category Low Risk 07/08/24 17:38 07/08/24 PFSH PFSH Medical History Surgical History (Updated 01/04/23 @ 13:49 by Jillian Ford) H/O: hysterectomy ?Z90.710 - Acquired absence of both cervix and uterus (ICD-10) Family History (Updated 07/08/24 @ 19:05 by Debra Johnson) Mother Family history of diabetes mellitus Family history of hypertension Social History (Updated 07/08/24 @ 19:06 by Debra Johnson) Within the past year, how often did you have a drink containing alcohol: never Within the past year, how often did you have six or more drinks on one occasion: never Score interpretation: A score less than 3 is consistent with normal alcohol consumption. Smoking status: Never smoker Second hand tobacco smoke exposure: No Non-prescribed substance use: denies use Previous occupational history: retired Known occupational exposures/hazards: No Highest level of school completed/degree received: 8th grade Do you want help with school or training: No Are you now , , , , never or living with a partner: In a typical week, how many times do you talk on the telephone with family, friends, or neighbors: 3 or more times per week How often do you get together with friends or relatives: 3 or more times per week How often do you attend restoration or islam services: never Do you belong to any clubs or organizations such as restoration groups unions, fraternal or athletic groups, or school groups: no Total score: 1 Score interpretation: A score of less than or equal to 1 indicates the most socially isolated. Little interest or pleasure in doing things: not at all Feeling down, depressed, or hopeless: not at all Feel stressed/tense/nervous/anxious/difficulty sleeping: not at all Life stressors: unknown source of stress Due to disability, difficulty making decisions: No Do you think of yourself as: straight/heterosexual Gender Identity: female Meds Home Medications and Allergies Home Medications ?Medication ?Instructions ?Recorded ?Confirmed ?Type aspirin 81 mg chewable tablet 1 tab PO DAILY 01/04/23 07/08/24 History (Aspirin Childrens) atorvastatin 80 mg tablet 80 mg PO .qhs 01/04/23 07/08/24 History cetirizine 10 mg tablet (24Hour 10 mg PO DAILY PRN allergy symptoms 01/04/23 07/08/24 History Allergy) melatonin 5 mg tablet 5 mg PO .HS PRN sleep 01/04/23 07/08/24 History albuterol sulfate 90 mcg/actuation 2 puff inhalation Q4H PRN Dyspnea 01/07/23 07/08/24 Rx aerosol inhaler #8.5 grams carvedilol 6.25 mg tablet 6.25 mg PO BID 07/08/24 07/08/24 History diclofenac sodium 75 mg 75 mg PO Q12H PRN pain 07/08/24 07/08/24 History tablet,delayed release Allergies Allergy/AdvReac Type Severity Reaction Status Date / Time No Known Drug Allergies Allergy Verified 07/08/24 13:23 Exam Constitutional Vital Signs, click to edit/add: Last Vital Signs Temp 98.3 F 07/09/24 07:23 Pulse 83 07/09/24 08:00 Resp 16 07/09/24 07:23 BP 150/85 H 07/09/24 07:23 Pulse Ox 95 07/09/24 07:23 O2 Del Method Room Air 07/09/24 07:23 Documenting provider has reviewed patient's vital signs: yes Common normals: no apparent distress Respiratory Common normals: normal respiratory effort and no retractions Cardio Common normals: regular rate and regular rhythm GI Common normals: Normal to inspection, nondistended, normoactive bowel sounds present and non-tender Extremity Common normals: normal to inspection, full ROM and normal capillary refill Results Labs Labs: Short CBC 07/08/24 07/09/24 Range/Units 13:50 05:47 WBC 12.9 H 7.5 (4.0-11.0) 10^3/uL Hgb 13.1 11.2 L (12.0-16.0) g/dL Hct 40.0 33.8 L (36.0-48.0) % Plt Count 300 254 (150-450) 10^3/uL BMP 07/08/24 07/09/24 13:50 05:47 Sodium 136 142 Potassium 4.0 3.8 Chloride 99 105 Carbon Dioxide 26.0 28.6 BUN 17.0 15.0 Creatinine 0.90 0.71 Glucose 125 H 95 Calcium 9.2 8.7 Cardiac Enzymes 07/08/24 Range/Units 13:50 Total Creatine Kinase 155 (26-192) U/L Liver Function 07/08/24 07/09/24 Range/Units 13:50 05:47 Total Bilirubin 1.2 H 0.8 (0.2-1.0) mg/dL AST 28 26 (15-37) U/L ALT 19 19 (14-59) U/L Alkaline Phosphatase 127 H 93 (46-116) U/L Albumin 3.4 2.7 L (3.4-5.0) g/dL Urine 07/08/24 Range/Units 14:52 Urine Color Lt. yellow (YELLOW) Urine Clarity Sl cloudy (CLEAR) Urine pH 7.0 (5.0-9.0) Ur Specific [place] 1.010 (1.005-1.025) Urine Protein Trace (NEG/TRACE) mg/dL Urine Glucose (UA) Negative (NEGATIVE) mg/dL Assessment and Plan Assessment and Plan (1) Elevated troponin: (2) Acute confusion: (3) Acute UTI: Plan Admission findings: Mild sinus tachycardia, mild respiratory distress, mild elevation in blood pressure, leukocytosis, mild elevation liver function test and elevated high-sensitivity troponin secondary to acute NSTEMI type II due to acute UTI, resulting in sepsis (tachycardia, mild respiratory distress, significant leukocytosis with left shift consistent with bacterial process, known infectious source of urine, and a negative lactate) Sepsis due to acute UTI-culture pending, continue with current antibiotics, pat ient appears to be much improved from previous day, will have patient ambulate with PT, if that is improved later on today there is still a potential for discharge to home. If unable to ambulate, medically necessary treatment will thus span 2 midnights will change patient to inpatient status Acute NSTEMI type II secondary to sepsis as outlined above-troponins elevated to 576.2% above upper limit of normal. Troponins are trending down currently, she describes no chest pain or shortness of breath. Consider echocardiogram, consider stress test as an outpatient Hypercholesterolemia-continue with home medications Hypertension on admission uncontrolled-improved today Generalized arthralgias-continue with diclofenac Insomnia-continue with home medications Admission status: Patient was admitted the late yesterday afternoon, diagnosed with the sepsis resulting in acute NSTEMI secondary to acute UTI, she is improved today, placed in observation initially, if maintains her improvement and is discharged today she will maintain observational status, if medically necessary treatment is required to span 2 midnights she will be changed to inpatient status.
--- NOTE | 2024-07-09 08:11 | P.DS_ITS ---
DS: Providers Provider Date of admission: 07/08/24 17:26 Primary care physician: Willi Doherty MD Consults: 07/08/24 17:46 Occupational Therapy Eval and Treat Routine Reason for consultation: Ambulatory dysfunction/weakness Physical Therapy Eval and Treat Routine Reason for consultation: Ambulatory dysfunction/weakness DS: Diagnosis Discharge Diagnosis (1) Elevated troponin: (2) Acute confusion: (3) Acute UTI: Plan Admission findings: Mild sinus tachycardia, mild respiratory distress, mild elevation in blood pressure, leukocytosis, mild elevation liver function test and elevated high-sensitivity troponin secondary to acute NSTEMI type II due to acute UTI, resulting in sepsis (tachycardia, mild respiratory distress, significant leukocytosis with left shift consistent with bacterial process, known infectious source of urine, and a negative lactate) Sepsis due to acute UTI-culture pending, continue with current antibiotics, patient appears to be much improved from previous day, will have patient ambulate with PT, if that is improved later on today there is still a potential for discharge to home. If unable to ambulate, medically necessary treatment will thus span 2 midnights will change patient to inpatient status Acute NSTEMI type II secondary to sepsis as outlined above-troponins elevated to 576.2% above upper limit of normal. Troponins are trending down currently, she describes no chest pain or shortness of breath. Consider echocardiogram, consider stress test as an outpatient Hypercholesterolemia-continue with home medications Hypertension on admission uncontrolled-improved today Generalized arthralgias-continue with diclofenac Insomnia-continue with home medications Admission status: Patient was admitted the late yesterday afternoon, diagnosed with the sepsis resulting in acute NSTEMI secondary to acute UTI, she is improve d today, placed in observation initially, if maintains her improvement and is discharged today she will maintain observational status, if medically necessary treatment is required to span 2 midnights she will be changed to inpatient status. DS: Summary Status at Discharge Overall status at discharge: patient is not back to baseline Time Spent with Patient Time attestation: Total time spent providing and/or coordinating discharge services: Time spent: greater than 30 minutes Exam Constitutional Vital Signs, click to edit/add: Last Vital Signs Temp 98.3 F 07/09/24 07:23 Pulse 83 07/09/24 08:00 Resp 16 07/09/24 07:23 BP 150/85 H 07/09/24 07:23 Pulse Ox 95 07/09/24 07:23 O2 Del Method Room Air 07/09/24 07:23 DS: Data Data Completed and Pending Labs on day of discharge: Labs from last 24 hours 07/09/24 07/08/24 07/08/24 05:47 20:00 15:40 WBC 7.5 RBC 3.82 L Hgb 11.2 L Hct 33.8 L MCV 88.5 MCH 29.3 MCHC 33.1 RDW 14.6 Plt Count 254 MPV 9.2 L Neut % (Auto) 71.9 Lymph % (Auto) 19.5 L Coffee % (Auto) 6.4 Eos % (Auto) 1.5 Baso % (Auto) 0.4 Neut # (Auto) 5.4 Lymph # (Auto) 1.5 Coffee # (Auto) 0.5 Eos # (Auto) 0.1 Baso # (Auto) 0.0 Abs Immat Gran (auto) 0.02 Imm/Tot Granulo (auto) 0.3 PT INR Sodium 142 Potassium 3.8 Chloride 105 Carbon Dioxide 28.6 Anion Gap 12.2 BUN 15.0 Creatinine 0.71 Est GFR ( Amer) >60 Est GFR (Non-Af Amer) >60 BUN/Creatinine Ratio 21.1 Glucose 95 Lactate Calcium 8.7 Total Bilirubin 0.8 AST 26 ALT 19 Alkaline Phosphatase 93 Total Creatine Kinase Troponin I High Sens 95.5 H* 228.7 H* 295.6 H* NT-Pro-B Natriuret Pep 856.0 Total Protein 6.9 Albumin 2.7 L Globulin 4.2 Albumin/Globulin Ratio 0.6 TSH Urine Color Urine Clarity Urine pH Ur Specific [place] Urine Protein Urine Glucose (UA) Urine Ketones Urine Occult Blood Urine Nitrite Urine Bilirubin Urine Urobilinogen Ur Leukocyte Esterase Urine RBC Urine WBC Ur Squamous Epith Cells Urine Crystals Urine Bacteria Urine Casts Hyaline Casts Urine Mucus Ur Culture Indicated? 07/08/24 07/08/24 14:52 13:50 WBC 12.9 H RBC 4.51 Hgb 13.1 Hct 40.0 MCV 88.7 MCH 29.0 MCHC 32.8 RDW 14.5 Plt Count 300 MPV 8.8 L Neut % (Auto) 86.3 H Lymph % (Auto) 7.5 L Coffee % (Auto) 5.7 Eos % (Auto) 0.0 L Baso % (Auto) 0.2 Neut # (Auto) 11.1 H Lymph # (Auto) 1.0 L Coffee # (Auto) 0.7 Eos # (Auto) 0.0 Baso # (Auto) 0.0 Abs Immat Gran (auto) 0.04 H Imm/Tot Granulo (auto) 0.3 PT 12.0 H INR 1.15 Sodium 136 Potassium 4.0 Chloride 99 Carbon Dioxide 26.0 Anion Gap 15.0 BUN 17.0 Creatinine 0.90 Est GFR ( Amer) >60 Est GFR (Non-Af Amer) >60 BUN/Creatinine Ratio 18.9 Glucose 125 H Lactate 1.3 Calcium 9.2 Total Bilirubin 1.2 H AST 28 ALT 19 Alkaline Phosphatase 127 H Total Creatine Kinase 155 Troponin I High Sens 283.4 H* NT-Pro-B Natriuret Pep Total Protein 8.2 Albumin 3.4 Globulin 4.8 Albumin/Globulin Ratio 0.7 TSH 0.796 Urine Color Lt. yellow Urine Clarity Sl cloudy Urine pH 7.0 Ur Specific [place] 1.010 Urine Protein Trace Urine Glucose (UA) Negative Urine Ketones Negative Urine Occult Blood Moderate A Urine Nitrite Negative Urine Bilirubin Negative Urine Urobilinogen 0.2 Ur Leukocyte Esterase Small A Urine RBC 5-10 A Urine WBC 5-10 A Ur Squamous Epith Cells Few A Urine Crystals None seen Urine Bacteria Small A Urine Casts Seen A Hyaline Casts Rare Urine Mucus None seen Ur Culture Indicated? Yes Discharge Plan Discharge Disposition: Home, Self-Care Condition: Good Discharge Medications: New cefdinir 300 mg capsule 600 mg PO DAILY Qty: 20 0RF Continued melatonin 5 mg tablet 5 mg PO .HS PRN (Reason: sleep) aspirin [Aspirin Childrens] 81 mg tablet,chewable 1 tab PO DAILY atorvastatin 80 mg tablet 80 mg PO .qhs cetirizine [24Hour Allergy] 10 mg tablet 10 mg PO DAILY PRN (Reason: allergy symptoms) albuterol sulfate 90 mcg/actuation Hfa Aerosol Inhaler 2 puff inhalation Q4H PRN (Reason: Dyspnea) Qty: 8.5 0RF Patient Comments: son does not know if she has this carvedilol 6.25 mg tablet 6.25 mg PO BID diclofenac sodium 75 mg tablet,delayed release (DR/EC) 75 mg PO Q12H PRN (Reason: pain) Print Language: Hebrew Forms: Portal Instructions
[2024-07-09] MEDS: CARVEDILOL 6.25 MG TABLET PO (09:17)
[2024-07-09] MEDS: ASPIRIN 81 MG TAB.CHEW PO (09:17)
--- NOTE | 2024-07-09 10:06 | SWNOTE1 ---
Medicare Outpatient Observation Notice reviewed and discussed with patient's daughter Elin via telephone. Pt's daughter verbalized understanding and SW signed the form that it was reviewed. Original placed in patient's room and copy placed in patient?s chart.
--- NOTE | 2024-07-09 10:07 | SWNOTE1 ---
XI called pt's daughter, Elin, to discuss dc plans. Pt was sleeping at this time and speaks kazakh. Pt's daughter was able to answer questions. Pt lives at home alone, her daughter lives a few houses down. Pt has neighbors and a family friend that comes in daily to check on her. Family also has cameras in the home so they can see pt and also talk to her if needed. Pt has had home health come in, in the past and daughter is open to this again. [facility] XI to send referral. Pt does use a walker in the home at all times. XI spoke to nurse and OT and HH is recommended. Daughter will be picking pt up after she is done working today. Referral sent to [facility]. Referral included face sheet, ED note, H&P, provider notes, case management report, and PT/OT notes.
--- NOTE | 2024-07-09 10:44 | SWNOTE1 ---
SW received call from [facility] and they are able to accept. SW to send final orders over to [facility].
[2024-07-09] MEDS: PNEUMOC 20-VAL CONJ-DIP CRM/PF 0.5 ML SYRINGE IM (11:35)
[2024-07-09] MEDS: FLU VACC QS2024(65UP)/MF59C/PF 60 MCG/0.5 ML SYRINGE IM (11:37)
[2024-07-09] MEDS: ACETAMINOPHEN 325 MG TABLET 650 MG PO (14:36)
--- NOTE | 2024-07-10 13:43 | CM.DCFOLLOWU ---
07/10 1st attempt. No answer
--- NOTE | 2024-07-15 14:28 | CM.DCFOLLOWU ---
3rd attempt. No answer
== END 2024-07-09 16:32 | disposition home health service (06) ==
LOC: ER 16:46 → MS 17:31
PROVIDERS: Physician Assistant; Registered Nurse; Admitting Provider Internal Medicine; Emergency Provider Emergency Medicine; PCP Family Medicine; Visit Provider Family Medicine
DX: A41.59 Other Gram-negative sepsis (principal); N39.0 Urinary tract infection, site not specified; I21.A1 Myocardial infarction type 2; R41.82 Altered mental status, unspecified; Z91.81 History of falling; Z79.82 Long term (current) use of aspirin; M54.2 Cervicalgia; Z90.710 Acquired absence of both cervix and uterus; R06.03 Acute respiratory distress; R79.89 Other specified abnormal findings of blood chemistry; E78.00 Pure hypercholesterolemia, unspecified; I10 Essential (primary) hypertension; M25.50 Pain in unspecified joint; G47.00 Insomnia, unspecified; Z23 Encounter for immunization
CPT/HCPCS: 36415; 70450; 71045; 72125; 80053; 81001; 82550; 83605; 83880; 84443; 84484; 85025; 85610; 87086; 87186; 90662; 90677; 93005; 94761; 96365; 96372; 97161; 97165; 97530; 99285; G0008; G0009; G0378; J0696; J1650

== ENCOUNTER 2024-07-23 16:24 | Outpatient (OUT) | payer MEDICARE, OTHER, SELFPAY ==
--- NOTE | 2024-07-23 | XR_ITS ---
The [address] [address] Patient Name: SABI SANTAMARIA MRN: [id number] date: 1945 Sex: F Assigned Patient Location: [facility] Current Patient Location: Accession/Order Number: [id number] Exam Date: 07/23/2024 16:30 Report Date: 07/25/2024 12:02 At the request of: MERRILL BLEDSOE Procedure: XR foot LT min 3V PROCEDURE: XR foot LT min 3V COMPARISON: None. HISTORY: LEFT FOOT PAIN FINDINGS: BONES:No acute fracture or dislocation. Severe degenerative changes with bony remodeling marginal osteophyte formation. Flattening of the plantar arch. SOFT TISSUES:Negative. No visible soft tissue swelling. EFFUSION:None visible. OTHER: Scattered calcifications XR/XR foot LT min 3V IMPRESSION: Severe degenerative changes Electronically authenticated by: SHANKAR ZHU Date: 07/25/2024 12:02
--- OUTSIDE RECORDS SUMMARY | 2024-07-23 16:42 | XMS_ITS | CCD ---
Author Organization [facility] Care Team Providers Care Steam Blocker Name Role Phone Getachew Escalante Unavailable OBINNA GARRETT Referring Unavailable MERRILL DOHERTY Primary Care Unavailable MINESH DALY Attending Unavailable MINESH DALY Admitting Unavailable MD Merrill Doherty Primary Care Provider [phone] MD Bonnie Hendricks Attending Provider MD Merrill Doherty Primary Care Provider [phone] MD Bonnie Hendricks Attending Provider DR OBINNA [...] Consulting Unavailable KAYLEY PHELAN Consulting Unavailable ROBINSON LPOES Attending Unavailable COCO Pichardo, ROBINSON Consulting Unavailable LADI Pichardo, DR MOMIN Primary Care Unavailable ROBINSON LOPES Admitting Unavailable MD Merrill Doherty Primary Care Provider [phone] MD Bonnie Hendricks Attending Provider MD Merrill Doherty Primary Care Provider [phone] MD Bonnie Hendricks Attending Provider MD Merrill Doherty Primary Care Provider [phone] MD Bonnie Hendricks Attending Provider [phone] Merrill Doherty Primary Care Unavailable Bonnie [...] 05-23-2021 End: 12-14-2022 Bisacodyl Discontinued [address] Daily 0 May 23, 2021 1:00am December [...] 2021 1:00am January 13, 2022 2:20pm Losartan Forrestphamoliiva um *please review for potential _update for [...] PC PRN for 30 day(s) October, Not-Taking [place] 5-Niq-Qsj-Fish Oil (Fish Oil) 1,200 (144-216) mg Capsule (5 sources) Start: 06-14-2021 End: 06-14-2023 take 1 capsule by mouth once daily [place] 6-Tpq-Enq-Fish Oil (Fish Oil) 1,200 (144-216) mg Capsule Discontinued 1 CAP PO Daily June 14, 2021 1:00am June 14, 2023 4:01pm Start: 06-14-2021 End: 06-14-2023 take 1 capsule by mouth once daily [place] 8-Rcb-Vef-Fish Oil (Fish Oil) 1,200 (144-216) mg Capsule Discontinued 1 CAP PO Daily June 14, 2021 12:00am June 14, 2023 3:01pm Start: 06-14-2021 take 1 capsule by mo ut once daily [place] 7-Nzh-Pgu-Fish Oil (Fish Oil) 1,200 (144-216) mg Capsule Active 1 CAP PO Daily June 14, 2021 12:00am Start: 06-14-2021 take 1 capsule by mo [facility] once daily [place] 9-Coh-Ycm-Fish Oil (Fish Oil) 1,200 (144-216) mg Capsule [...] May 23, 2021 3:52pm polyethylene glycol 3350 [id number] mg powder for oral solution (5 sources) [...] 06-14-2021 Chronic Other aftercare (1 source) Other detention (current) drug therapy; Translations: [OTH PENITENTIARY CURRENT DRUG THERAPY] Onset: 09-19-2022 Episodic Other aftercare (1 source) 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; 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] Onset: 09-19-2022 Episodic [...] 12-10-2023 ALT [Catalytic activity/Vol] 18 U/L 7-52 [facility] Albumin [Mass/volume] in Ser um or Plasma by Bromocresol green (BCG) dye binding methoOrdered By: Nara Bowman on 12-10-2023 Albumin BCG dye [Mass/Vol] 3.9 g/dL 3.5-5.7 [facility] Alkaline phosphatase [Enzyma tic activity/volume] in Serum or PlasmaOrdered By: Nara Bowman on 12-10-2023 ALP [Catalytic activity/Vol] 107 U/L High 34-104 [facility] Aspartate aminotransferase [ Enzymatic activity/volume] in Serum or PlasmaOrdered By: Nara Bowman on 12-10-2023 AST [Catalytic activity/Vol] 28 U/L 13-39 [facility] Basophils Auto (Bld) [#/Vol] Ordered By: Nara Bowman on 12-10-2023 Basophils (Bld) [#/Vol] 0.0 10*3/uL 0.0-0.2 [facility] Basophils/100 WBC Auto (Bld) Ordered By: Nara Bowman on 12-10-2023 Basophils/100 WBC (Bld) 0.6 % . [facility] Bilirubin.total [Mass/volume ] in Serum or PlasmaOrdered By: Nara Bowman on 12-10-2023 Bilirubin [Mass/Vol] 1.0 mg/dL 0.3-1.[address] [facility] [address] abdomen pelvis w conon CT abdomen pelvis w con [facility] Main [place] [address] [place], [place] [id number] CT Scan Report Signed Patient: Sabi Santamaria MR#: [id number] : 1945 Acct:[id number] Age/Sex: 78 / F ADM Date: 12/10/23 Loc: XT Room: Type: [facility] RCR Attending Dr: Bonnie Hendricks MD Copies [...] Rickey Rey M.D.12/10/2023 4:28 PM Dictation Location: [place] [address] Transcribed By: PAMELA 12/10/231627 Dictated By: Rickey Rey DO 12/10/231622 Signed By: 12/10/231627 Normal [facility] Calcium [Mass/volume] in Ser um or PlasmaOrdered By: Nara Bowman on 12-10-2023 Calcium [Mass/Vol] 9.3 mg/dL 8.6-10.3 [facility] Carbon dioxide, total [Moles /volume] in Serum or PlasmaOrdered By: Nara Bowman on 12-10-2023 CO2 [Moles/Vol] 30.1 mmol/L 21.0-31.0 [facility] Chloride [Moles/volume] in S clyde or PlasmaOrdered By: Nara Bowman on 12-10-2023 Chloride [Moles/Vol] 105 mmol/L 98-107 [facility] Creatinine [Mass/volume] in Serum or PlasmaOrdered By: Nara Bowman on 12-10-2023 Creatinine [Mass/Vol] 0.72 mg/dL 0.60-1.20 [facility] Eosinophils Auto (Bld) [#/Vo l]Ordered By: Nara Bowman on 12-10-2023 Eosinophils (Bld) [#/Vol] 0.2 10*3/uL 0.0-0.45 [facility] Eosinophils/100 WBC Auto (Bl d)Ordered By: Nara Bowman on 12-10-2023 Eosinophils/100 WBC (Bld) 4.5 % . [facility] Erythrocyte distribution wid th Auto (RBC) [Ratio]Ordered By: Nara Bowman on 12-10-2023 Erythrocyte distribution width (RBC) [Ratio] 15.5 % High 11.9-15.3 [facility] Globulin Calc (S) [Mass/Vol] Ordered By: Nara Bowman on 12-10-2023 Globulin (S) [Mass/Vol] 4.2 g/dL [facility] Glucose [Mass/volume] in Ser um or PlasmaOrdered By: Nara Bowman on 12-10-2023 Glucose [Mass/Vol] 95 mg/dL 70-100 [facility] Comment on above: ADA recommended refe rence rangeRandom Glucose Reference Range is dependent on time and content of last meal. Glucose of more than 200 mg/dL in a nonstressed, ambulatory subject supports the diagnosis of Diabetes Mellitus. Hematocrit Auto (Bld) [Volum e fraction]Ordered By: Nara Bowman on 12-10-2023 Hematocrit (Bld) [Volume fraction] 37.0 % 34.0-46.4 [facility] Hemoglobin [Mass/volume] in BloodOrdered By: Nara Bowman on 12-10-2023 Hemoglobin (Bld) [Mass/Vol] 12.4 g/dL 11.8-15.4 [facility] Leukocytes [#/volume] correc blanca for nucleated erythrocytes in Blood by Automated counOrdered By: Nara Bowman on 12-10-2023 WBC corrected for nucl RBC Auto (Bld) [#/Vol] 5.1 10*3/uL 3.8-11.6 [facility] Lymphocytes Auto (Bld) [#/Vo l]Ordered By: Nara Bowman on 12-10-2023 Lymphocytes (Bld) [#/Vol] 1.6 10*3/uL 1.00-4.8 [facility] Lymphocytes/100 WBC Auto (Bl d)Ordered By: Nara Bowman on 12-10-2023 Lymphocytes/100 WBC (Bld) 30.7 % . [facility] MCH Auto (RBC) [Entitic mass ]Ordered By: Nara Bowman on 12-10-2023 MCH (RBC) [Entitic mass] 30.3 pg 24.7-34.3 [facility] MCHC Auto (RBC) [Mass/Vol]Or dered By: Nara Bowman on 12-10-2023 MCHC (RBC) [Mass/Vol] 33.5 g/dL 32.0-35.0 [facility] MCV Auto (RBC) [Entitic vol] Ordered By: Nara Bowman on 12-10-2023 MCV (RBC) [Entitic vol] 90.4 fL 80-100 [facility] Monocytes Auto (Bld) [#/Vol] Ordered By: Nara Bowman on 12-10-2023 Monocytes (Bld) [#/Vol] 0.4 10*3/uL 0.0-0.8 [facility] Monocytes/100 WBC Auto (Bld) Ordered By: Nara Bowman on 12-10-2023 Monocytes/100 WBC (Bld) 8.6 % . [facility] Neutrophils Auto (Bld) [#/Vo l]Ordered By: Nara Bowman on 12-10-2023 Neutrophils (Bld) [#/Vol] 2.9 10*3/uL 1.8-7.7 [facility] Neutrophils/100 WBC Auto (Bl d)Ordered By: Nara Bowman on 12-10-2023 Neutrophils/100 WBC (Bld) 55.6 % . [facility] No Panel InformationOrdered By: Nara Bowman on 12-10-2023 Estimated GFR (CKD-EPI) > 60.0 mL/Min [facility] Creatinine Clearance (Chem 50.85 [facility] Nucleated erythrocytes [Pres ence] in Blood by Automated countOrdered By: Nara Bowman on 12-10-2023 Nucleated RBC Auto Ql (Bld) 0.1 /100{WBC} 0-0.5 [facility] Platelet mean volume Auto (B ld) [Entitic vol]Ordered By: Nara Bowman on 12-10-2023 Platelet mean volume (Bld) [Entitic vol] 7.1 fL 6.3-10.7 [facility] Platelets Auto (Bld) [#/Vol] Ordered By: Nara Bowman on 12-10-2023 Platelets (Bld) [#/Vol] 281 10*3/uL 150-450 [facility] Potassium [Moles/volume] in Serum or PlasmaOrdered By: Nara Bowman on 12-10-2023 Potassium [Moles/Vol] 4.2 mmol/L 3.5-5.1 [facility] Protein [Mass/volume] in Ser um or PlasmaOrdered By: Nara Bowman on 12-10-2023 Protein [Mass/Vol] 8.1 g/dL 6.4-8.9 [facility] RBC Auto (Bld) [#/Vol]Ordere d By: Nara Bowman on 12-10-2023 RBC (Bld) [#/Vol] 4.10 10*6/uL 3.60-5.00 [facility] Serum or plasma albumin/glob ulin mass ratioOrdered By: Nara Bowman on 12-10-2023 Albumin/Globulin [Mass ratio] 0.9 {ratio} [facility] Serum or plasma anion gap de terminationOrdered By: Nara Bowman on 12-10-2023 Anion gap [Moles/Vol] 9.1 mmol/L 6.0-15.0 [facility] Serum or plasma cancer antig en 125 (CA-125) measurement (units/volume)Ordered By: Nara Bowman on 12-10-2023 Cancer Ag 125 Qn 19.8 [arb'U]/mL 0.0-38.1 [facility] Comment on above: [facility] El ectrochemiluminescence Immunoassay(ECLIA)Values obtained with different assay methods or kits cannotbe used interchangeably. Results cannot be interpreted asabsolute evidence of the presence or absence of malignantdisease.Performed at: - [place] [id number] Director: Adrian Coello PhD, Phone: [phone] Sodium [Moles/volume] in Ser um or PlasmaOrdered By: Nara Bowman on 12-10-2023 Sodium [Moles/Vol] 140 mmol/L 136-145 [facility] Urea nitrogen [Mass/volume] in Serum or PlasmaOrdered By: Nara Bowman on 12-10-2023 Urea nitrogen [Mass/Vol] 17 mg/dL 7-25 [facility] WBC Auto (Bld) [#/Vol]Ordere d By: Nara Bowman on 12-10-2023 WBC (Bld) [#/Vol] 5.1 10*3/uL 3.8-11.6 [facility] Alanine aminotransferase [En zymatic activity/volume] in Serum or PlasmaOrdered By: Bonnie Eladio on 06-06-2023 ALT [Catalytic activity/Vol] 11 U/L Normal 7-52 [facility] Comment on above: Performed By: #### C MP, CBC #### [facility] [address] [place] [address] [place] #### CA125 #### [facility] , Albumin [Mass/volume] in Ser um or Plasma by Bromocresol green (BCG) dye binding methoOrdered By: Bonnie Hendricks on 06-06-2023 Albumin BCG dye [Mass/Vol] 3.7 g/dL 3.5-5.7 [facility] Alkaline phosphatase [Enzyma tic activity/volume] in Serum or PlasmaOrdered By: Bonnie Hendricks on 06-06-2023 ALP [Catalytic activity/Vol] 111 U/L High 34-104 [facility] Comment on above: Result Comment: PERF ORMED BY: [place] [address] PATHOLOGIST TRAVEL CLERK ALIS BLOCK M.D. Performed By: #### C MP, CBC #### [facility] [address] [place] [address] [place] #### CA125 #### [facility] , Aspartate aminotransferase [ Enzymatic activity/volume] in Serum or PlasmaOrdered By: Bonnie Hendricks on 06-06-2023 AST [Catalytic activity/Vol] 21 U/L Normal 13-39 [facility] Comment on above: Performed By: #### C MP, CBC #### [facility] [address] [place] [address] [place] #### CA125 #### [facility] , Automated basophil %Ordered By: Bonnie Hendricks on 06-06-2023 Basophils/100 WBC (Bld) 0.5 % Normal . [facility] Comment on above: Performed By: #### C MP, CBC #### [place] [address] [place] #### CA125 #### [facility] , Automated basophil countOrde red By: Bonnie Hendricks on 06-06-2023 Basophils (Bld) [#/Vol] 0.0 10*3/uL Normal 0.0-0.2 [facility] Comment on above: Result Comment: PERF ORMED BY: [place] [address] PATHOLOGIST TRAVEL CLERK ALIS BLOCK M.D. Performed By: #### C MP, CBC #### [place] [address] [place] #### CA125 #### [facility] , Automated blood monocyte cou ntOrdered By: Bonnie Francoisse on 06-06-2023 Monocytes (Bld) [#/Vol] 0.5 10*3/uL Normal 0.0-0.8 [facility] Comment on above: Performed By: #### C MP, CBC #### [address] #### CA125 #### [facility] , Automated eosinophil %Ordere d By: Bonnie Hendricks on 06-06-2023 Eosinophils/100 WBC (Bld) 2.1 % Normal . [facility] Comment on above: Performed By: #### C MP, CBC #### [place] [address] [place] #### CA125 #### [facility] , Automated eosinophil countOr dered By: Bonnie Hendricks on 06-06-2023 Eosinophils (Bld) [#/Vol] 0.1 10*3/uL Normal 0.0-0.45 [facility] Comment on above: Performed By: #### C MP, CBC #### [place] [address] [place] #### CA125 #### [facility] , Automated monocyte %Ordered By: Bonnie Francoisse on 06-06-2023 Monocytes/100 WBC (Bld) 7.8 % Normal . [facility] Comment on above: Performed By: #### C MP, CBC #### [facility] [address] [place] [address] [place] #### CA125 #### [facility] , Automated neutrophil %Ordere d By: Bonnie Hendricks on 06-06-2023 Neutrophils/100 WBC (Bld) 62.6 % Normal . [facility] Comment on above: Performed By: #### C MP, CBC #### [facility] [address] [place] [address] [place] #### CA125 #### [facility] , Bilirubin.total [Mass/volume ] in Serum or PlasmaOrdered By: Bonnie Hendricks on 06-06-2023 Bilirubin [Mass/Vol] 0.6 mg/dL Normal 0.3-1.0 [facility] Comment on above: Performed By: #### C MP, CBC #### [facility] [address] [place] [address] [place] #### CA125 #### [facility] , Calcium [Mass/volume] in Ser um or PlasmaOrdered By: Bonnie Hendricks on 06-06-2023 Calcium [Mass/Vol] 9.4 mg/dL Normal 8.6-10.3 [facility] Comment on above: Performed By: #### C MP, CBC #### [facility] [address] [place] [address] [place] #### CA125 #### [facility] , Cancer Antigen 125on 023 Cancer Antigen 125 15.5 Normal 0.0-38.1 [facility] Comment on above: Result Comment: [facility] Electrochemiluminescence Immunoassay (ECLIA) Values obtained with different assay methods or kits cannot be used interchangeably. Results cannot be interpreted as absolute evidence of the presence or absence of malignant disease. Performed at: [facility] [employer] [id number] Supervisor [employer]: Adrian Coello PhD, Phone: [phone] PERFORMED BY: [place] [address] PATHOLOGIST TRAVEL CLERK ALIS BLOCK M.D. Performed By: #### C MP, CBC #### [facility] [address] [place] [address] [place] #### CA125 #### [facility] , Carbon dioxide, total [Moles /volume] in Serum or PlasmaOrdered By: Bonnie Hendricks on 06-06-2023 CO2 [Moles/Vol] 29.4 mmol/L Normal 21.0-31.0 [facility] Comment on above: Performed By: #### C MP, CBC #### [place] [address] [place] #### CA125 #### [facility] , Chloride [Moles/volume] in S clyde or PlasmaOrdered By: Bonnie Hendricks on 06-06-2023 Chloride [Moles/Vol] 103 mmol/L Normal 98-107 [facility] Comment on above: Performed By: #### C MP, CBC #### [place] [address] [place] #### CA125 #### [facility] , Complete Blood Count Auto Di ffon 06-06-2023 Mean Corpuscular HGB Conc 32.9 g/dL Normal 32.0-35.0 [facility] Comment on above: Performed By: #### C MP, CBC #### [facility] [address] [place] [address] [place] #### CA125 #### [facility] , NRBC% 0.1 /100{WBC} Normal 0-0.5 [facility] Comment on above: Performed By: #### C MP, CBC #### [place] [address] [place] #### CA125 #### [facility] , Comprehensive Metabolic Pane chelsey 06-06-2023 Albumin [Mass/Vol] 3.7 g/dL Normal 3.5-5.7 [facility] Comment on above: Performed By: #### C MP, CBC #### [facility] [address] [place] [address] [place] #### CA125 #### [facility] , GFR/1.73 sq M.predicted MDRD (S/P/Bld) [Vol rate/Area] mL/min/{1.73_m2} Normal [facility] Comment on above: Performed By: #### C MP, CBC #### [facility] [address] [place] [address] [place] #### CA125 #### [facility] , Creatinine [Mass/volume] in Serum or PlasmaOrdered By: Bonnie Hendricks on 06-06-2023 Creatinine [Mass/Vol] 0.64 mg/dL Normal 0.60-1.20 [facility] Comment on above: Performed By: #### C MP, CBC #### [facility] [address] [place] [address] [place] #### CA125 #### [facility] , Erythrocyte distribution wid th [Ratio] by Automated countOrdered By: Bonnie Hendricks on 06-06-2023 Erythrocyte distribution width (RBC) [Ratio] 15.6 % High 11.9-15.3 [facility] Comment on above: Performed By: #### C MP, CBC #### [facility] [address] [place] [address] [place] #### CA125 #### [facility] , Erythrocytes [#/volume] in B lood by Automated countOrdered By: Bonnie Hendricks on 06-06-2023 RBC (Bld) [#/Vol] 4.36 10*6/uL Normal 3.60-5.00 [facility] Comment on above: Performed By: #### C MP, CBC #### [facility] [address] [place] [address] [place] #### CA125 #### [facility] , Glucose [Mass/volume] in Ser um or PlasmaOrdered By: Bonnie Eladio on 06-06-2023 Glucose [Mass/Vol] 93 mg/dL Normal 70-100 [facility] Comment on above: ADA recommended refe rence rangeRandom Glucose Reference Range is dependent on time and content of last meal. Glucose of more than 200 mg/dL in a nonstressed, ambulatory subject supports the diagnosis of Diabetes Mellitus. Result Comment: [place] om Glucose Reference Range is dependent on time and content of last meal. Glucose of more than 200 mg/dL in a nonstressed, ambulatory subject supports the diagnosis of Diabetes Mellitus. ADA recommended reference range Performed By: #### C MP, CBC #### [facility] [address] [place] [address] [place] #### CA125 #### [facility] , Hematocrit [Volume Fraction] of Blood by Automated countOrdered By: Bonnie Hendricks on 06-06-2023 Hematocrit (Bld) [Volume fraction] 37.2 % Normal 34.0-46.4 [facility] Comment on above: Performed By: #### C MP, CBC #### [facility] [address] [place] [address] [place] #### CA125 #### [facility] , Hemoglobin [Mass/volume] in BloodOrdered By: Bonnie Hendricks on 06-06-2023 Hemoglobin (Bld) [Mass/Vol] 12.3 g/dL Normal 11.8-15.4 [facility] Comment on above: Performed By: #### C MP, CBC #### [facility] [address] [place] [address] [place] #### CA125 #### [facility] , Leukocytes [#/volume] correc blanca for nucleated erythrocytes in Blood by Automated counOrdered By: Bonnie Hendricks on 06-06-2023 WBC corrected for nucl RBC Auto (Bld) [#/Vol] 5.9 10*3/uL 3.8-11.6 [facility] Leukocytes [#/volume] in Blo od by Automated countOrdered By: Bonnie Hendricks on 06-06-2023 WBC (Bld) [#/Vol] 5.9 10*3/uL Normal 3.8-11.6 [facility] Comment on above: Performed By: #### C MP, CBC #### [facility] [address] [place] [address] [place] #### CA125 #### [facility] , Lymphocytes [#/volume] in Bl ood by Automated countOrdered By: Bonnie Hendricks on 06-06-2023 Lymphocytes (Bld) [#/Vol] 1.6 10*3/uL Normal 1.00-4.8 [facility] Comment on above: Performed By: #### C MP, CBC #### [facility] [address] [place] [address] [place] #### CA125 #### [facility] , Lymphocytes/100 leukocytes i n Blood by Automated countOrdered By: Bonnie Hendricks on 06-06-2023 Lymphocytes/100 WBC (Bld) 27.0 % Normal . [facility] Comment on above: Performed By: #### C MP, CBC #### [facility] [address] [place] [address] [place] #### CA125 #### [facility] , MCH [Entitic mass] by Automa blanca countOrdered By: Bonnie Hendricks on 06-06-2023 MCH (RBC) [Entitic mass] 28.1 pg Normal 24.7-34.3 [facility] Comment on above: Performed By: #### C MP, CBC #### [facility] [address] [place] [address] [place] #### CA125 #### [facility] , MCHC Auto (RBC) [Mass/Vol]Or dered By: Bonnie Hendricks on 06-06-2023 MCHC (RBC) [Mass/Vol] 32.9 g/dL 32.0-35.0 [facility] MCV [Entitic volume] by Auto mated countOrdered By: Bonnie Hendricks on 06-06-2023 MCV (RBC) [Entitic vol] 85.4 fL Normal 80-100 [facility] Comment on above: Performed By: #### C MP, CBC #### [facility] [address] [place] [address] [place] #### CA125 #### [facility] , Neutrophils [#/volume] in Bl ood by Automated countOrdered By: Bonnie Hendricks on 06-06-2023 Neutrophils (Bld) [#/Vol] 3.7 10*3/uL Normal 1.8-7.7 [facility] Comment on above: Performed By: #### C MP, CBC #### [facility] [address] [place] [address] [place] #### CA125 #### [facility] , No Panel InformationOrdered By: Bonnie Hendricks on 06-06-2023 Estimated GFR (CKD-EPI) > 60.0 mL/Min [facility] Creatinine Clearance (Chem N/A [facility] Nucleated erythrocytes [Pres ence] in Blood by Automated countOrdered By: Bonnie Hendricks on 06-06-2023 Nucleated RBC Auto Ql (Bld) 0.1 /100{WBC} 0-0.5 [facility] Platelet mean volume [Entiti c volume] in Blood by Automated countOrdered By: Bonnie Hendricks on 06-06-2023 Platelet mean volume (Bld) [Entitic vol] 6.9 fL Normal 6.3-10.7 [facility] Comment on above: Performed By: #### C MP, CBC #### [facility] [address] [place] [address] [place] #### CA125 #### [facility] , Platelets [#/volume] in Bloo d by Automated countOrdered By: Bonnie Hendricks on 06-06-2023 Platelets (Bld) [#/Vol] 333 10*3/uL Normal 150-450 [facility] Comment on above: Performed By: #### C MP, CBC #### [facility] [address] [place] [address] [place] #### CA125 #### [facility] , Potassium [Moles/volume] in Serum or PlasmaOrdered By: Bonnie Eladio on 06-06-2023 Potassium [Moles/Vol] 3.9 mmol/L Normal 3.5-5.1 [facility] Comment on above: Performed By: #### C MP, CBC #### [facility] [address] [place] [address] [place] #### CA125 #### [facility] , Protein [Mass/volume] in Ser um or PlasmaOrdered By: Bonnie Hendricks on 06-06-2023 Protein [Mass/Vol] 7.8 g/dL Normal 6.4-8.9 [facility] Comment on above: Performed By: #### C MP, CBC #### [address] #### CA125 #### [facility] , Serum globulin measurement b y calculation (mass/volume)Ordered By: Bonnie Hendricks on 06-06-2023 Globulin (S) [Mass/Vol] 4.1 g/dL [facility] Comment on above: Performed By: #### C MP, CBC #### [facility] [address] [place] [address] [place] #### CA125 #### [facility] , Serum or plasma albumin/glob ulin mass ratioOrdered By: Bonnie Hendricks on 06-06-2023 Albumin/Globulin [Mass ratio] 0.9 {ratio} [facility] Comment on above: Performed By: #### C MP, CBC #### [facility] [address] [place] [address] [place] #### CA125 #### [facility] , Serum or plasma anion gap de terminationOrdered By: Bonnie Hendricks on 06-06-2023 Anion gap [Moles/Vol] 8.5 mmol/L Normal 6.0-15.0 [facility] Comment on above: Performed By: #### C MP, CBC #### [facility] [address] [place] [address] #### CA125 #### [facility] , Serum or plasma cancer antig en 125 (CA-125) measurement (units/volume)Ordered By: Bonnie Hendricks on 06-06-2023 Cancer Ag 125 Qn 15.5 [arb'U]/mL 0.0-38.1 [facility] Comment on above: [facility] El ectrochemiluminescence Immunoassay(ECLIA)Values obtained with different assay methods or kits cannotbe used interchangeably. Results cannot be interpreted asabsolute evidence of the presence or absence of malignantdisease.Performed at: [facility] [id number] Director: Adrian Coello PhD, Phone: [phone] Sodium [Moles/volume] in Ser um or PlasmaOrdered By: Bonnie Hendricks on 06-06-2023 Sodium [Moles/Vol] 137 mmol/L Normal 136-145 [facility] Comment on above: Performed By: #### C MARTIN, CBC #### [facility] [address] [place] [address] [place] #### CA125 #### [facility] , Urea nitrogen [Mass/volume] in Serum or PlasmaOrdered By: Bonnie Hendricks on 06-06-2023 Urea nitrogen [Mass/Vol] 12 mg/dL Normal 01-09 [facility] Comment on above: Performed By: #### C MP, CBC #### [facility] [address] [place] [address] [place] #### CA125 #### [facility] , Alanine aminotransferase [En zymatic activity/volume] in Serum or PlasmaOrdered By: Bonnie Hendricks on 12-12-2022 ALT [Catalytic activity/Vol] 8 U/L [facility] Albumin [Mass/volume] in Ser um or Plasma by Bromocresol green (BCG) dye binding methoOrdered By: Bonnie Hendricks on 12-12-2022 Albumin BCG dye [Mass/Vol] 3.8 g/dL 3.5-5.7 [facility] Alkaline phosphatase [Enzyma tic activity/volume] in Serum or PlasmaOrdered By: Bonnie Hendricks on 12-12-2022 ALP [Catalytic activity/Vol] 87 U/L 34-104 [facility] Aspartate aminotransferase [ Enzymatic activity/volume] in Serum or PlasmaOrdered By: Bonnie Hendricks on 12-12-2022 AST [Catalytic activity/Vol] 13 U/L 13-39 [facility] Basophils Auto (Bld) [#/Vol] Ordered By: Bonnie Hendricks on 12-12-2022 Basophils (Bld) [#/Vol] 0.0 10*3/uL 0.0-0.2 [facility] Basophils/100 WBC Auto (Bld) Ordered By: Bonnie Hendricks on 12-12-2022 Basophils/100 WBC (Bld) 0.6 % . [facility] Bilirubin.total [Mass/volume ] in Serum or PlasmaOrdered By: Bonnie Hendricks on 12-12-2022 Bilirubin [Mass/Vol] 0.5 mg/dL 0.3-1.0 [facility] Calcium [Mass/volume] in Ser um or PlasmaOrdered By: Bonnie Hendricks on 12-12-2022 Calcium [Mass/Vol] 9.1 mg/dL 8.6-10.3 [facility] Carbon dioxide, total [Moles /volume] in Serum or PlasmaOrdered By: Bonnie Hendricks on 12-12-2022 CO2 [Moles/Vol] 27.1 mmol/L 21.0-31.0 [facility] Chloride [Moles/volume] in S clyde or PlasmaOrdered By: Bonnie Hendricks on 12-12-2022 Chloride [Moles/Vol] 104 mmol/L 98-107 [facility] Creatinine [Mass/volume] in Serum or PlasmaOrdered By: Bonnie Hendricks on 12-12-2022 Creatinine [Mass/Vol] 0.69 mg/dL 0.60-1.20 [facility] Eosinophils Auto (Bld) [#/Vo l]Ordered By: Bonnie Hendricks on 12-12-2022 Eosinophils (Bld) [#/Vol] 0.1 10*3/uL 0.0-0.45 [facility] Eosinophils/100 WBC Auto (Bl d)Ordered By: Bonnie Hendricks on 12-12-2022 Eosinophils/100 WBC (Bld) 3.1 % . [facility] Erythrocyte distribution wid th Auto (RBC) [Ratio]Ordered By: Bonnie Hendricks on 12-12-2022 Erythrocyte distribution width (RBC) [Ratio] 14.9 % 11.9-15.3 [facility] Globulin Calc (S) [Mass/Vol] Ordered By: Bonnie Hendricks on 12-12-2022 Globulin (S) [Mass/Vol] 4.0 g/dL [facility] Glucose [Mass/volume] in Ser um or PlasmaOrdered By: Bonnie Hendricks on 12-12-2022 Glucose [Mass/Vol] 99 mg/dL 70-100 [facility] Comment on above: ADA recommended refe rence rangeRandom Glucose Reference Range is dependent on time and content of last meal. Glucose of more than 200 mg/dL in a nonstressed, ambulatory subject supports the diagnosis of Diabetes Mellitus. Hematocrit Auto (Bld) [Volum e fraction]Ordered By: Bonnie Hendricks on 12-12-2022 Hematocrit (Bld) [Volume fraction] 35.1 % 34.0-46.4 [facility] Hemoglobin [Mass/volume] in BloodOrdered By: Bonnie Hendricks on 12-12-2022 Hemoglobin (Bld) [Mass/Vol] 11.5 g/dL 11.8-15.4 [facility] Leukocytes [#/volume] correc blanca for nucleated erythrocytes in Blood by Automated counOrdered By: Bonnie Hendricks on 12-12-2022 WBC corrected for nucl RBC Auto (Bld) [#/Vol] 4.8 10*3/uL 3.8-11.6 [facility] Lymphocytes Auto (Bld) [#/Vo l]Ordered By: Bonnie Hendricks on 12-12-2022 Lymphocytes (Bld) [#/Vol] 1.5 10*3/uL 1.00-4.8 [facility] Lymphocytes/100 WBC Auto (Bl d)Ordered By: Bonnie Hendricks on 12-12-2022 Lymphocytes/100 WBC (Bld) 31.0 % . [facility] MCH Auto (RBC) [Entitic mass ]Ordered By: Bonnie Hendricks on 12-12-2022 MCH (RBC) [Entitic mass] 28.6 pg 24.7-34.3 [facility] MCHC Auto (RBC) [Mass/Vol]Or dered By: Bonnie Hendricks on 12-12-2022 MCHC (RBC) [Mass/Vol] 32.8 g/dL 32.0-35.0 [facility] MCV Auto (RBC) [Entitic vol] Ordered By: Bonnie Hendricks on 12-12-2022 MCV (RBC) [Entitic vol] 87.1 fL 80-100 [facility] Monocytes Auto (Bld) [#/Vol] Ordered By: Bonnie Hendricks on 12-12-2022 Monocytes (Bld) [#/Vol] 0.4 10*3/uL 0.0-0.8 [facility] Monocytes/100 WBC Auto (Bld) Ordered By: Bonnie Hendricks on 12-12-2022 Monocytes/100 WBC (Bld) 8.4 % . [facility] Neutrophils Auto (Bld) [#/Vo l]Ordered By: Bonnie Hendricks on 12-12-2022 Neutrophils (Bld) [#/Vol] 2.8 10*3/uL 1.8-7.7 [facility] Neutrophils/100 WBC Auto (Bl d)Ordered By: Bonnie Hendricks on 12-12-2022 Neutrophils/100 WBC (Bld) 56.9 % . [facility] No Panel InformationOrdered By: Bonnie Hendricks on 12-12-2022 Estimated GFR (CKD-EPI) > 60.0 mL/Min [facility] Creatinine Clearance (Chem N/A [facility] Nucleated erythrocytes [Pres ence] in Blood by Automated countOrdered By: Bonnie Hendricks on 12-12-2022 Nucleated RBC Auto Ql (Bld) 0.2 /100{WBC} 0-0.5 [facility] Platelet mean volume Auto (B ld) [Entitic vol]Ordered By: Bonnie Hendricks on 12-12-2022 Platelet mean volume (Bld) [Entitic vol] 6.9 fL 6.3-10.7 [facility] Platelets Auto (Bld) [#/Vol] Ordered By: Bonnie Hendricks on 12-12-2022 Platelets (Bld) [#/Vol] 315 10*3/uL 150-450 [facility] Potassium [Moles/volume] in Serum or PlasmaOrdered By: Bonnie Hendricks on 12-12-2022 Potassium [Moles/Vol] 4.3 mmol/L 3.5-5.1 [facility] Protein [Mass/volume] in Ser um or PlasmaOrdered By: Bonnie Hendricks on 12-12-2022 Protein [Mass/Vol] 7.8 g/dL 6.4-8.9 [facility] RBC Auto (Bld) [#/Vol]Ordere d By: Bonnie Hendricks on 12-12-2022 RBC (Bld) [#/Vol] 4.04 10*6/uL 3.60-5.00 [facility] Serum or plasma albumin/glob ulin mass ratioOrdered By: Bonnie Hendricks on 12-12-2022 Albumin/Globulin [Mass ratio] 1.0 {ratio} [facility] Serum or plasma anion gap de terminationOrdered By: Bonnie Hendricks on 12-12-2022 Anion gap [Moles/Vol] 10.2 mmol/L 6.0-15.0 [facility] Serum or plasma cancer antig en 125 (CA-125) measurement (units/volume)Ordered By: Bonnie Hendricks on 12-12-2022 Cancer Ag 125 Qn 19.0 [arb'U]/mL 0.0-38.1 [facility] Comment on above: [facility] El ectrochemiluminescence Immunoassay(ECLIA)Values obtained with different assay methods or kits cannotbe used interchangeably. Results cannot be interpreted asabsolute evidence of the presence or absence of malignantdisease.Performed at: [facility] [id number] Director: Adrian Coello PhD, Phone: [phone] Sodium [Moles/volume] in Ser um or PlasmaOrdered By: Bonnei Hendricks on 12-12-2022 Sodium [Moles/Vol] 137 mmol/L 136-145 [facility] Urea nitrogen [Mass/volume] in Serum or PlasmaOrdered By: Bonnie Hendricks on 12-12-2022 Urea nitrogen [Mass/Vol] 15 mg/dL 7-25 [facility] WBC Auto (Bld) [#/Vol]Ordere d By: Bonnie Hendricks on 12-12-2022 WBC (Bld) [#/Vol] 4.8 10*3/uL 3.8-11.6 [facility] CULTURE URINEon 09-19-2022 CULTURE URINE Isolate 1 [...] Trimethoprim/Sulfamethoxa zole <=20 S F Normal [facility] Comment on above: Performed By: #### C RP, CMP #### [facility] [address] [place] [address] Dr. Sung Moore CBC AUTO DIFFon 09-16-2022 BASO # 0.0 103/ul Normal 0.0-0.1 [facility] Comment on above: Performed By: #### C RP, CMP #### [facility] [address] [place] [address] Dr. Sung Moore Basophils/100 WBC (Bld) 0.3 % Normal 0.2-2.0 [facility] Comment on above: Performed By: #### C RP, CMP #### [facility] [address] [place] [address] Dr. Sung Moore EO # 0.2 103/ul Normal 0.0-0.7 [facility] Comment on above: Performed By: #### C RP, CMP #### [facility] [address] [place] [address] Dr. Sung Moore Eosinophils/100 WBC (Bld) 3.4 % Normal 0.9-7.0 [facility] Comment on above: Performed By: #### C RP, CMP #### [facility] [address] [place] [address] Dr. Sung Moore Erythrocyte distribution width (RBC) [Ratio] 16.1 % Critically high 11.0-15.0 [facility] Comment on above: Performed By: #### C RP, CMP #### [facility] [address] [place] [address] Dr. Sung Moore Hematocrit (Bld) [Volume fraction] 37.0 % Normal 36.0-48.0 [facility] Comment on above: Performed By: #### C RP, CMP #### [facility] [address] [place] [address] Dr. Sung Moore Hemoglobin (Bld) [Mass/Vol] 12.1 g/dL Normal 12.0-16.0 [facility] Comment on above: Performed By: #### C RP, CMP #### [facility] [address] [place] [address] Dr. Sung Moore IG # 0.02 10e3/ul Normal 0.00-0.03 [facility] Comment on above: Performed By: #### C RP, CMP #### [facility] [address] [place] [address] Dr. Sung Moore IG % 0.3 % Normal 0.0-0.5 [facility] Comment on above: Performed By: #### C RP, CMP #### [facility] [address] [place] [address] Dr. Sung Moore LYMPH # 2.0 103/ul Normal 1.2-3.8 [facility] Comment on above: Performed By: #### C RP, CMP #### [facility] [address] [place] [address] Dr. Sung Moore Lymphocytes/100 WBC (Bld) 29.0 % Normal 20.5-60.0 [facility] Comment on above: Performed By: #### C RP, CMP #### [facility] [address] [place] [address] Dr. Sung Moore MANUAL DIFF REQ NO Normal [facility] Comment on above: Performed By: #### C RP, CMP #### [facility] [address] [place] [address] Dr. Sung Moore MCH (RBC) [Entitic mass] 28.6 pg Normal 26.7-34.0 [facility] Comment on above: Performed By: #### C RP, CMP #### [facility] [address] [place] [address] Dr. Sung Moore MCHC (RBC) [Mass/Vol] 32.7 g/dL Normal 29.9-35.2 [facility] Comment on above: Performed By: #### C RP, CMP #### [facility] [address] [place] [address] Dr. Sung Moore MCV (RBC) [Entitic vol] 87.5 fL Normal 81.0-99.0 [facility] Comment on above: Performed By: #### C RP, CMP #### [facility] [address] [place] [address] Dr. Sung Moore MONO # 0.5 103/ul Normal 0.3-0.8 [facility] Comment on above: Performed By: #### C RP, CMP #### [facility] [address] [place] [address] Dr. Sung Moore Monocytes/100 WBC (Bld) 6.7 % Normal 1.7-12.0 [facility] Comment on above: Performed By: #### C RP, CMP #### [facility] [address] [place] [address] Dr. Sung Moore NEUT # 4.1 103/ul Normal 1.4-6.5 [facility] Comment on above: Performed By: #### C RP, CMP #### [facility] [address] [place] [address] Dr. Sung Moore Neutrophils/100 WBC (Bld) 60.3 % Normal 43.0-75.0 [facility] Comment on above: Performed By: #### C RP, CMP #### [facility] [address] [place] [address] Dr. Sung Moore Platelet mean volume (Bld) [Entitic vol] 8.9 fL Critically low 9.5-13.5 [facility] Comment on above: Performed By: #### C RP, CMP #### [facility] [address] [place] [address] Dr. Sung Moore PLT 255 103/ul Normal 150-450 [facility] Comment on above: Performed By: #### C RP, CMP #### [facility] [address] [address] [address] Sung Moore RBC 4.23 106/ul Normal 4.20-5.40 [facility] Comment on above: Performed By: #### C RP, CMP #### [facility] [address] [place] [address] Dr. Sung Moore WBC 6.8 103/ul Normal 4.0-11.0 [facility] Comment on above: Performed By: #### C RP, CMP #### [facility] [address] [place] [address] Dr. Sung Moore ER URINE PROFILEon 3 Bilirubin Ql (U) Negative Normal NEGATIVE [facility] Comment on above: Performed By: #### C MP, BNP #### [facility] [address] [place] [address] Dr. Sung Moore Clarity (U) SL CLOUDY Abnormal CLEAR [facility] Comment on above: Performed By: #### C MP, BNP #### [facility] [address] [address] [address] Sung Moore Color (U) YELLOW Normal YELLOW [facility] Comment on above: Performed By: #### C MP, BNP #### [facility] [address] [place] [address] Dr. Sung Moore ERUAHD A micrscopic examina tion will be performed if indicated. Normal [facility] Comment on above: Performed By: #### C MP, BNP #### [facility] [address] [place] [address] Dr. Sung Moore Glucose Ql (U) Negative Normal NEGATIVE [facility] Comment on above: Performed By: #### C MP, BNP #### [facility] [address] [place] [address] Dr. Sung Moore Hemoglobin Ql (U) SMALL Abnormal NEGATIVE [facility] Comment on above: Performed By: #### C MP, BNP #### [facility] [address] [place] [address] Dr. Sung Moore Ketones Ql (U) Negative Normal NEGATIVE [facility] Comment on above: Performed By: #### C MP, BNP #### [facility] [address] [place] [address] Dr. Sung Moore LEUKOCYTES LARGE Abnormal NEGATIVE [facility] Comment on above: Performed By: #### C MP, BNP #### [facility] [address] [place] [address] Dr. Sung Moore Nitrite Ql (U) Positive Abnormal NEGATIVE [facility] Comment on above: Performed By: #### C MP, BNP #### [facility] [address] [place] [address] Dr. Sung Moore pH (U) 8.5 [pH] Normal 5-9 [facility] Comment on above: Performed By: #### C MP, BNP #### [facility] [address] [place] [address] Dr. Sung Moore SPEC GRAVITY 1.010 Normal 1.005-<=1. 025 [facility] Comment on above: Performed By: #### C MP, BNP #### [facility] [address] [place] [address] Dr. Sung Moore UA PROTEIN TRACE Normal NEGATIVE/ TRACE [facility] Comment on above: Performed By: #### C MP, BNP #### [facility] [address] [place] [address] Dr. Sung Moore UR MICRO IND INDICATED Normal [facility] Comment on above: Performed By: #### C MP, BNP #### [facility] [address] [place] [address] Dr. Sung Moore Urobilinogen Qn (U) 0.2 {David'U}/dL Normal 0.2 - 1. 0 [facility] Comment on above: Performed By: #### C MP, BNP #### [facility] [address] [place] [address] Dr. Sung Moore LACTATE/LACTIC ACIDon 2022 Lactate [Moles/Vol] 1.0 mmol/L Normal 0.4-2.0 [facility] Comment on above: Performed By: #### L ACT #### [facility] [address] [place] [address] Dr. Sung Moore PROF 14(COMP METB)on 023 Albumin [Mass/Vol] 3.5 g/dL Normal 3.4-5.0 [facility] Comment on above: Performed By: #### C MP, BNP #### [facility] [address] [place] [address] Dr. Sung Moore Albumin/Globulin [Mass ratio] 0.9 {ratio} Normal [facility] Comment on above: Performed By: #### C MP, BNP #### [facility] [address] [place] [address] Dr. Sung Moore ALP [Catalytic activity/Vol] 113 U/L Normal 46-116 [facility] Comment on above: Performed By: #### C MP, BNP #### [facility] [address] [place] [address] Dr. Sung Moore ALT [Catalytic activity/Vol] 14 U/L Normal 14-59 [facility] Comment on above: Performed By: #### C MP, BNP #### [facility] [address] [place] [address] Dr. Sung Moore Anion gap [Moles/Vol] 13.5 mmol/L Normal [facility] Comment on above: Performed By: #### C MP, BNP #### [facility] [address] [place] [address] Dr. Sung Moore AST [Catalytic activity/Vol] 9 U/L Critically low 15-37 [facility] Comment on above: Performed By: #### C MP, BNP #### [facility] [address] [place] [address] Dr. Sung Moore Bilirubin [Mass/Vol] 0.3 mg/dL Normal 0.2-1.0 [facility] Comment on above: Performed By: #### C MP, BNP #### [facility] [address] [place] [address] Dr. Sung Moore Calcium [Mass/Vol] 9.0 mg/dL Normal 8.5-10.1 [facility] Comment on above: Performed By: #### C MP, BNP #### [facility] [address] [address] [address] Sung Moore Chloride [Moles/Vol] 104 mmol/L Normal 98-107 [facility] Comment on above: Performed By: #### C MP, BNP #### [facility] [address] [place] [address] Dr. Sung Moore CO2 [Moles/Vol] 27.3 mmol/L Normal 21.0-32.0 [facility] Comment on above: Performed By: #### C MP, BNP #### [facility] [address] [place] [address] Dr. Sung Moore Creatinine [Mass/Vol] 0.89 mg/dL Normal 0.55-1.02 [facility] Comment on above: Performed By: #### C MP, BNP #### [facility] [address] [place] [address] Dr. Sung Moore EGFR-AF IVORIAN >60 Normal >=60 [facility] Comment on above: Performed By: #### C MP, BNP #### [facility] [address] [place] [address] Dr. Sung Moore EGFR-NON AF IVORIAN >60 Normal >=60 [facility] Comment on above: Performed By: #### C MP, BNP #### [facility] [address] [place] [address] Dr. Sung Moore Globulin (S) [Mass/Vol] 4.0 g/dL Normal [facility] Comment on above: Performed By: #### C MP, BNP #### [facility] [address] [place] [address] Dr. uSng Moore Glucose [Mass/Vol] 119 mg/dL Critically high 74-106 [facility] Comment on above: Performed By: #### C MP, BNP #### [facility] [address] [address] [address] Sung Moore Potassium [Moles/Vol] 3.8 mmol/L Normal 3.5-5.1 [facility] Comment on above: Performed By: #### C MP, BNP #### [facility] [address] [place] [address] Dr. Sung Moore Protein [Mass/Vol] 7.5 g/dL Normal 6.4-8.2 [facility] Comment on above: Performed By: #### C MP, BNP #### [facility] [address] [address] [address] Sung Moore Sodium [Moles/Vol] 141 mmol/L Normal 136-145 [facility] Comment on above: Performed By: #### C MP, BNP #### [facility] [address] [place] [address] Dr. Sung Moore Urea nitrogen [Mass/Vol] 22.0 mg/dL Critically high 7.0-18.0 [facility] Comment on above: Performed By: #### C MP, BNP #### [facility] [address] [place] [address] Dr. Sung Moore Urea nitrogen/Creatinine [Mass ratio] 24.7 mg/mg Normal [facility] Comment on above: Performed By: #### C MP, BNP #### [facility] [address] [place] [address] Dr. Sung Moore URINE MICROSCOPIC ONLYon BACTERIA LARGE Abnormal NONE SEEN [facility] Comment on above: Performed By: #### C MP, BNP #### [facility] [address] [place] [address] Dr. Sung Moore Bacteria identified Cx Nom (U) INDICATED Normal [facility] Comment on above: Performed By: #### C MP, BNP #### [facility] [address] [place] [address] Dr. Sung Moore CAST NONE SEEN Normal NONE SEEN [facility] Comment on above: Performed By: #### C MP, BNP #### [facility] [address] [address] [address] Sung Moore Crystals LM Nom (Urine sed) NONE SEEN Normal NONE SEEN [facility] Comment on above: Performed By: #### C MP, BNP #### [facility] [address] [address] [address] Sung Moore Epithelial cells LM Ql (Urine sed) FEW Abnormal NONE SEEN /RARE [facility] Comment on above: Performed By: #### C MP, BNP #### [facility] [address] [address] [address] Sung Moore MUCOUS TRACE Abnormal NONE SEEN [facility] Comment on above: Performed By: #### C MP, BNP #### [facility] [address] [place] [address] Dr. Sung Moore RBC 10-20 Abnormal 0-2 [facility] Comment on above: Performed By: #### C MP, BNP #### [facility] [address] [place] [address] Dr. Sung Moore WBC (U) [#/Vol] /uL Abnormal NONE SEEN [facility] Comment on above: Performed By: #### C MP, BNP #### [facility] [address] [place] [address] Dr. Sung Moore Albumin [Mass/volume] in Ser um or PlasmaOrdered By: Bonnie Hendricks on 05-16-2022 Albumin [Mass/Vol] 3.5 g/dL 3.2-5.5 [facility] Basophils Auto (Bld) [#/Vol] Ordered By: Bonnie Hendricks on 05-16-2022 Basophils (Bld) [#/Vol] 0.0 10*3/uL 0.0-0.2 [facility] Basophils/100 WBC Auto (Bld) Ordered By: Bonnie Hendricks on 05-16-2022 Basophils/100 WBC (Bld) 0.4 % . [facility] Creatinine and Glomerular fi ltration rate.predicted panel (S/P/Bld)Ordered By: Bonnie Hendricks on 05-16-2022 Creatinine [Mass/Vol] 0.70 mg/dL 0.44-1.03 [facility] Eosinophils Auto (Bld) [#/Vo l]Ordered By: Bonnie Hendricks on 05-16-2022 Eosinophils (Bld) [#/Vol] 0.2 10*3/uL 0.0-0.45 [facility] Eosinophils/100 WBC Auto (Bl d)Ordered By: Bonnie Hendricks on 05-16-2022 Eosinophils/100 WBC (Bld) 3.0 % . [facility] Erythrocyte distribution wid th Auto (RBC) [Ratio]Ordered By: Bonnie Hendricks on 05-16-2022 Erythrocyte distribution width (RBC) [Ratio] 19.5 % 11.9-15.3 [facility] Estimated glomerular filtrat ion rate (GFR) non- AmericanOrdered By: Bonnie Hendricks on 05-16-2022 GFR/1.73 sq M.predicted among non-blacks MDRD (S/P/Bld) [Vol rate/Area] > 60 mL/Min [facility] Globulin Calc (S) [Mass/Vol] Ordered By: Bonnie Hendricks on 05-16-2022 Globulin (S) [Mass/Vol] 4.8 g/dL [facility] Hematocrit Auto (Bld) [Volum e fraction]Ordered By: Bonnie Hendricks on 05-16-2022 Hematocrit (Bld) [Volume fraction] 34.9 % 34.0-46.4 [facility] Hemoglobin [Mass/volume] in BloodOrdered By: Bonnie Hendricks on 05-16-2022 Hemoglobin (Bld) [Mass/Vol] 11.2 g/dL 11.8-15.4 [facility] Leukocytes [#/volume] correc blanca for nucleated erythrocytes in Blood by Automated counOrdered By: Bonnie Hendricks on 05-16-2022 WBC corrected for nucl RBC Auto (Bld) [#/Vol] 5.2 10*3/uL 3.8-11.6 [facility] Lymphocytes Auto (Bld) [#/Vo l]Ordered By: Bonnie Hendricks on 05-16-2022 Lymphocytes (Bld) [#/Vol] 1.4 10*3/uL 1.00-4.8 [facility] Lymphocytes/100 WBC Auto (Bl d)Ordered By: Bonnie Hendricks on 05-16-2022 Lymphocytes/100 WBC (Bld) 27.8 % . [facility] MCH Auto (RBC) [Entitic mass ]Ordered By: Bonnie Hendricks on 05-16-2022 MCH (RBC) [Entitic mass] 26.2 pg 24.7-34.3 [facility] MCHC Auto (RBC) [Mass/Vol]Or dered By: Bonnie Hendricks on 05-16-2022 MCHC (RBC) [Mass/Vol] 32.1 g/dL 32.0-35.0 [facility] MCV Auto (RBC) [Entitic vol] Ordered By: Bonnie Hendricks on 05-16-2022 MCV (RBC) [Entitic vol] 81.6 fL 80-100 [facility] Monocytes Auto (Bld) [#/Vol] Ordered By: Bonnie Hendricks on 05-16-2022 Monocytes (Bld) [#/Vol] 0.3 10*3/uL 0.0-0.8 [facility] Monocytes/100 WBC Auto (Bld) Ordered By: Bonnie Hendricks on 05-16-2022 Monocytes/100 WBC (Bld) 6.3 % . [facility] Neutrophils Auto (Bld) [#/Vo l]Ordered By: Bonnie Hendricks on 05-16-2022 Neutrophils (Bld) [#/Vol] 3.2 10*3/uL 1.8-7.7 [facility] Neutrophils/100 WBC Auto (Bl d)Ordered By: Bonnie Hendricks on 05-16-2022 Neutrophils/100 WBC (Bld) 62.5 % . [facility] No Panel InformationOrdered By: Bonnie Hendricks on 05-16-2022 Estimated GFR () > 60 mL/Min [facility] Comment on above: GFR estimated refere nce range: According to KDOQI guidelines, <60 ml/min/1.73m2 is sufficient to diagnose a patient with chronic kidney disease. Pharmacy Creatinine Clearance (Chem N/A [facility] Nucleated erythrocytes [Pres ence] in Blood by Automated countOrdered By: Bonnie Hendricks on 05-16-2022 Nucleated RBC Auto Ql (Bld) 0.1 /100{WBC} 0-0.5 [facility] Platelet mean volume Auto (B ld) [Entitic vol]Ordered By: Bonnie Hendricks on 05-16-2022 Platelet mean volume (Bld) [Entitic vol] 7.3 fL 6.3-10.7 [facility] Platelets Auto (Bld) [#/Vol] Ordered By: Bonnie Hendricks on 05-16-2022 Platelets (Bld) [#/Vol] 303 10*3/uL 150-450 [facility] Protein [Mass/volume] in Ser um or PlasmaOrdered By: Bonnie Hendricks on 05-16-2022 Protein [Mass/Vol] 8.3 g/dL 6.1-7.9 [facility] RBC Auto (Bld) [#/Vol]Ordere d By: Bonnie Hendricks on 05-16-2022 RBC (Bld) [#/Vol] 4.28 10*6/uL 3.60-5.00 [facility] Serum or plasma alanine de guzman otransferase measurement without P-5'-P (enzymatic activiOrdered By: Bonnie Hendricks on 05-16-2022 ALT No additional P-5'-P [Catalytic activity/Vol] 15 U/L 1060 [facility] Serum or plasma albumin/glob ulin mass ratioOrdered By: Bonnie Hendricks on 05-16-2022 Albumin/Globulin [Mass ratio] 0.7 {ratio} [facility] Serum or plasma alkaline david sphatase measurement (enzymatic activity/volume)Ordered By: Bonnie Hendricks on 05-16-2022 ALP [Catalytic activity/Vol] 96 U/L 32-92 [facility] Serum or plasma anion gap de terminationOrdered By: Bonnie Hendricks on 05-16-2022 Anion gap [Moles/Vol] 11.0 mmol/L 6.0-15.0 [facility] Serum or plasma aspartate am inotransferase measurement (enzymatic activity/volume)Ordered By: Bonnie Hendricks on 05-16-2022 AST [Catalytic activity/Vol] 18 U/L 1042 [facility] Serum or plasma calcium elias urement (mass/volume)Ordered By: Bonnie Hendricks on 05-16-2022 Calcium [Mass/Vol] 9.2 mg/dL 8.2-10.2 [facility] Serum or plasma cancer antig en 125 (CA-125) measurement (units/volume)Ordered By: Bonnie Hendricks on 05-16-2022 Cancer Ag 125 Qn 18.3 [arb'U]/mL 0.0-38.1 [facility] Comment on above: [facility] El ectrochemiluminescence Immunoassay(ECLIA)Values obtained with different assay methods or kits cannotbe used interchangeably. Results cannot be interpreted asabsolute evidence of the presence or absence of malignantdisease.Performed at: [facility] [id number] Director: Adrian Coello PhD, Phone: [phone] Serum or plasma chloride liset surement (moles/volume)Ordered By: Bonnie Hendricks on 05-16-2022 Chloride [Moles/Vol] 102 mmol/L 95-114 [facility] Serum or plasma glucose elias urement (mass/volume)Ordered By: Bonnie Hendricks on 05-16-2022 Glucose [Mass/Vol] 104 mg/dL 70-100 [facility] Comment on above: ADA recommended refe rence rangeRandom Glucose Reference Range is dependent on time and content of last meal. Glucose of more than 200 mg/dL in a nonstressed, ambulatory subject supports the diagnosis of Diabetes Mellitus. Serum or plasma potassium me asurement (moles/volume)Ordered By: Bonnie Hendricks on 05-16-2022 Potassium [Moles/Vol] 4.1 mmol/L 3.5-5.1 [facility] Serum or plasma sodium measu rement (moles/volume)Ordered By: Bonnie Hendricks on 05-16-2022 Sodium [Moles/Vol] 135 mmol/L 136-146 [facility] Serum or plasma total biliru bin measurement (mass/volume)Ordered By: Bonnie Hendricks on 05-16-2022 Bilirubin [Mass/Vol] 0.5 mg/dL 0.3-1.2 [facility] Serum or plasma total carbon dioxide measurement (moles/volume)Ordered By: Bonnie Hendricks on 05-16-2022 CO2 [Moles/Vol] 26.1 mmol/L 22.0-30.0 [facility] Serum or plasma urea nitroge n measurement (mass/volume)Ordered By: Bonnie Eladio on 05-16-2022 Urea nitrogen [Mass/Vol] 13 mg/dL 03-10 [facility] WBC Auto (Bld) [#/Vol]Ordere d By: Bonnie Hendricks on 05-16-2022 WBC (Bld) [#/Vol] 5.2 10*3/uL 3.8-11.6 [facility] CBC AUTO DIFFon 03-22-2022 BASO # 0.0 103/ul Normal 0.0-0.1 [facility] Comment on above: Performed By: #### C MP, BNP #### [facility] [address] [address] [address] Sung Moore Basophils/100 WBC (Bld) 0.3 % Normal 0.2-2.0 [facility] Comment on above: Performed By: #### C MP, BNP #### [facility] [address] [address] [address] Sung Moore EO # 0.4 103/ul Normal 0.0-0.7 [facility] Comment on above: Performed By: #### C MP, BNP #### [facility] [address] [address] [address] Sung Moore Eosinophils/100 WBC (Bld) 5.6 % Normal 0.9-7.0 [facility] Comment on above: Performed By: #### C MP, BNP #### [facility] [address] [address] [address] Sung Moore Erythrocyte distribution width (RBC) [Ratio] 16.0 % Critically high 11.0-15.0 [facility] Comment on above: Performed By: #### C MP, BNP #### [facility] [address] [place] [address] Dr. Sung Moore Hematocrit (Bld) [Volume fraction] 27.2 % Critically low 36.0-48.0 [facility] Comment on above: Performed By: #### C MP, BNP #### [facility] [address] [address] [address] Sung Moore Hemoglobin (Bld) [Mass/Vol] 8.6 g/dL Critically low 12.0-16.0 [facility] Comment on above: Performed By: #### C MP, BNP #### [facility] [address] [place] [address] Dr. Sung Moore IG # 0.03 10e3/ul Normal 0.00-0.03 [facility] Comment on above: Performed By: #### C MP, BNP #### [facility] [address] [place] [address] Dr. Sung Moore IG % 0.5 % Normal 0.0-0.5 [facility] Comment on above: Performed By: #### C MP, BNP #### [facility] [address] [place] [address] Dr. Sung Moore LYMPH # 1.8 103/ul Normal 1.2-3.8 [facility] Comment on above: Performed By: #### C MP, BNP #### [facility] [address] [place] [address] Dr. Sung Moore Lymphocytes/100 WBC (Bld) 27.2 % Normal 20.5-60.0 [facility] Comment on above: Performed By: #### C MP, BNP #### [facility] [address] [place] [address] Dr. Sung Moore MANUAL DIFF REQ NO Normal [facility] Comment on above: Performed By: #### C MP, BNP #### [facility] [address] [place] [address] Dr. Sung Moore MCH (RBC) [Entitic mass] 25.9 pg Critically low 26.7-34.0 [facility] Comment on above: Performed By: #### C MP, BNP #### [facility] [address] [place] [address] Dr. Sung Moore MCHC (RBC) [Mass/Vol] 31.6 g/dL Normal 29.9-35.2 [facility] Comment on above: Performed By: #### C MP, BNP #### [facility] [address] [place] [address] Dr. Sung Moore MCV (RBC) [Entitic vol] 81.9 fL Normal 81.0-99.0 [facility] Comment on above: Performed By: #### C MP, BNP #### [facility] [address] [place] [address] Dr. Sung Moore MONO # 0.7 103/ul Normal 0.3-0.8 [facility] Comment on above: Performed By: #### C MP, BNP #### [facility] [address] [place] [address] Dr. Sung Moore Monocytes/100 WBC (Bld) 10.2 % Normal 1.7-12.0 [facility] Comment on above: Performed By: #### C MP, BNP #### [facility] [address] [place] [address] Dr. Sung Moore NEUT # 3.7 103/ul Normal 1.4-6.5 [facility] Comment on above: Performed By: #### C MP, BNP #### [facility] [address] [place] [address] Dr. Sung Moore Neutrophils/100 WBC (Bld) 56.2 % Normal 43.0-75.0 [facility] Comment on above: Performed By: #### C MP, BNP #### [facility] [address] [place] [address] Dr. Sung Moore Platelet mean volume (Bld) [Entitic vol] 8.7 fL Critically low 9.5-13.5 [facility] Comment on above: Performed By: #### C MP, BNP #### [facility] [address] [place] [address] Dr. Sung Moore PLT 370 103/ul Normal 150-450 [facility] Comment on above: Performed By: #### C MP, BNP #### [facility] [address] [place] [address] Dr. Sung Moore RBC 3.32 106/ul Critically low 4.20-5.[address] [facility] Comment on above: Performed By: #### C MP, BNP #### [facility] [address] [place] [address] Dr. Sung Moore WBC 6.6 103/ul Normal 4.0-11.0 [facility] Comment on above: Performed By: #### C MP, BNP #### [facility] [address] [place] [address] Dr. Sung Moore CRPon 03-22-2022 CRP 13.2 mg/dL Critically high <=1.0 [facility] Comment on above: Performed By: #### C RP, CMP #### [facility] [address] [place] [address] Dr. Sung Moore CULTURE URINEon 03-22-2022 CULTURE [...] F Trimethoprim/Sulfamethoxa zole <=20 S F Normal [facility] Comment on above: Performed By: #### C RP, CMP #### [facility] [address] [place] [address] Dr. Sung Moore PROF 14(COMP METB)on 022 Albumin [Mass/Vol] 2.0 g/dL Critically low 3.4-5.0 [facility] Comment on above: Performed By: #### C RP, CMP #### [facility] [address] [place] [address] Dr. Sung Moore Albumin/Globulin [Mass ratio] 0.4 {ratio} Normal [facility] Comment on above: Performed By: #### C RP, CMP #### [facility] [address] [place] [address] Dr. Sung Moore ALP [Catalytic activity/Vol] 115 U/L Normal 46-116 [facility] Comment on above: Performed By: #### C RP, CMP #### [facility] [address] [address] [address] Sung Moore ALT [Catalytic activity/Vol] 21 U/L Normal 14-59 [facility] Comment on above: Performed By: #### C RP, CMP #### [facility] [address] [address] [address] Snug Moore Anion gap [Moles/Vol] 8.7 mmol/L Normal [facility] Comment on above: Performed By: #### C RP, CMP #### [facility] [address] [address] [address] Sung Moore AST [Catalytic activity/Vol] 25 U/L Normal 15-37 [facility] Comment on above: Performed By: #### C RP, CMP #### [facility] [address] [address] [address] Sung Moore Bilirubin [Mass/Vol] 0.2 mg/dL Normal 0.2-1.0 [facility] Comment on above: Performed By: #### C RP, CMP #### [facility] [address] [address] [address] Sung Moore Calcium [Mass/Vol] 8.5 mg/dL Normal 8.5-10.1 [facility] Comment on above: Performed By: #### C RP, CMP #### [facility] [address] [address] [address] Sung Moore Chloride [Moles/Vol] 105 mmol/L Normal 98-107 [facility] Comment on above: Performed By: #### C RP, CMP #### [facility] [address] [address] [address] Sung Moore CO2 [Moles/Vol] 26.2 mmol/L Normal 21.0-32.0 [facility] Comment on above: Performed By: #### C RP, CMP #### [facility] [address] [address] [address] Sung Moore Creatinine [Mass/Vol] 0.69 mg/dL Normal 0.55-1.02 [facility] Comment on above: Performed By: #### C RP, CMP #### [facility] [address] [address] [address] Sung Moore EGFR-AF IVORIAN >60 Normal >=60 [facility] Comment on above: Performed By: #### C RP, CMP #### [facility] [address] [place] [address] Dr. Sung Moore EGFR-NON AF IVORIAN >60 Normal >=60 [facility] Comment on above: Performed By: #### C RP, CMP #### [facility] [address] [address] [address] Sung Moore Globulin (S) [Mass/Vol] 5.0 g/dL Normal [facility] Comment on above: Performed By: #### C RP, CMP #### [facility] [address] [place] [address] Dr. Sung Moore Glucose [Mass/Vol] 101 mg/dL Normal 74-106 [facility] Comment on above: Performed By: #### C RP, CMP #### [facility] [address] [place] [address] Dr. Sung Moore Potassium [Moles/Vol] 3.9 mmol/L Normal 3.5-5.1 [facility] Comment on above: Performed By: #### C RP, CMP #### [facility] [address] [place] [address] Dr. Sung Moore Protein [Mass/Vol] 7.0 g/dL Normal 6.4-8.2 [facility] Comment on above: Performed By: #### C RP, CMP #### [facility] [address] [place] [address] Dr. Sung Moore Sodium [Moles/Vol] 136 mmol/L Normal 136-145 [facility] Comment on above: Performed By: #### C RP, CMP #### [facility] [address] [place] [address] Dr. Sung Moore Urea nitrogen [Mass/Vol] 15.0 mg/dL Normal 7.0-18.0 [facility] Comment on above: Performed By: #### C RP, CMP #### [facility] [address] [place] [address] Dr. Sung Moore Urea nitrogen/Creatinine [Mass ratio] 21.7 mg/mg Normal [facility] Comment on above: Performed By: #### C RP, CMP #### [facility] [address] [place] [address] Dr. Sung Moore CBC AUTO DIFFon 03-21-2022 BASO # 0.0 103/ul Normal 0.0-0.1 [facility] Comment on above: Performed By: #### C MP, BNP #### [facility] [address] [place] [address] Dr. Sung Moore Basophils/100 WBC (Bld) 0.3 % Normal 0.2-2.0 [facility] Comment on above: Performed By: #### C MP, BNP #### [facility] [address] [place] [address] Dr. Sung Moore EO # 0.3 103/ul Normal 0.0-0.7 [facility] Comment on above: Performed By: #### C MP, BNP #### [facility] [address] [place] [address] Dr. Sung Moore Eosinophils/100 WBC (Bld) 2.6 % Normal 0.9-7.0 [facility] Comment on above: Performed By: #### C MP, BNP #### [facility] [address] [place] [address] Dr. Sung Moore Erythrocyte distribution width (RBC) [Ratio] 15.7 % Critically high 11.0-15.0 [facility] Comment on above: Performed By: #### C MP, BNP #### [facility] [address] [place] [address] Dr. Sung Moore Hematocrit (Bld) [Volume fraction] 26.8 % Critically low 36.0-48.0 [facility] Comment on above: Performed By: #### C MP, BNP #### [facility] [address] [place] [address] Dr. Sung Moore Hemoglobin (Bld) [Mass/Vol] 8.6 g/dL Critically low 12.0-16.0 [facility] Comment on above: Performed By: #### C MP, BNP #### [facility] [address] [place] [address] Dr. Sung Moore IG # 0.06 10e3/ul Critically high 0.00-0.[address] [facility] Comment on above: Performed By: #### C MP, BNP #### [facility] [address] [place] [address] Dr. Sung Moore IG % 0.6 % Critically high 0.0-0.5 [facility] Comment on above: Performed By: #### C MP, BNP #### [facility] [address] [place] [address] Dr. Sung Moore LYMPH # 1.7 103/ul Normal 1.2-3.8 [facility] Comment on above: Performed By: #### C MP, BNP #### [facility] [address] [place] [address] Dr. Sung Moore Lymphocytes/100 WBC (Bld) 17.4 % Critically low 20.5-60.0 [facility] Comment on above: Performed By: #### C MP, BNP #### [facility] [address] [place] [address] Dr. Sung Moore MANUAL DIFF REQ NO Normal [facility] Comment on above: Performed By: #### C MP, BNP #### [facility] [address] [place] [address] Dr. Sung Moore MCH (RBC) [Entitic mass] 26.3 pg Critically low 26.7-34.0 [facility] Comment on above: Performed By: #### C MP, BNP #### [facility] [address] [place] [address] Dr. Sung Moore MCHC (RBC) [Mass/Vol] 32.1 g/dL Normal 29.9-35.2 [facility] Comment on above: Performed By: #### C MP, BNP #### [facility] [address] [place] [address] Dr. Sung Moore MCV (RBC) [Entitic vol] 82.0 fL Normal 81.0-99.0 [facility] Comment on above: Performed By: #### C MP, BNP #### [facility] [address] [place] [address] Dr. Sung Moore MONO # 1.1 103/ul Critically high 0.3-0.[address] [facility] Comment on above: Performed By: #### C MP, BNP #### [facility] [address] [place] [address] Dr. Sung Moore Monocytes/100 WBC (Bld) 11.4 % Normal 1.7-12.0 [facility] Comment on above: Performed By: #### C MP, BNP #### [facility] [address] [place] [address] Dr. Sung Moore NEUT # 6.7 103/ul Critically high 1.4-6.[address] [facility] Comment on above: Performed By: #### C MP, BNP #### [facility] [address] [place] [address] Dr. Sung Moore Neutrophils/100 WBC (Bld) 67.7 % Normal 43.0-75.0 [facility] Comment on above: Performed By: #### C MP, BNP #### [facility] [address] [place] [address] Dr. Sung Moore Platelet mean volume (Bld) [Entitic vol] 8.8 fL Critically low 9.5-13.5 [facility] Comment on above: Performed By: #### C MP, BNP #### [facility] [address] [place] [address] Dr. Sung Moore PLT 301 103/ul Normal 150-450 [facility] Comment on above: Performed By: #### C MP, BNP #### [facility] [address] [place] [address] Dr. Sung Moore RBC 3.27 106/ul Critically low 4.20-5.[address] [facility] Comment on above: Performed By: #### C MP, BNP #### [facility] [address] [place] [address] Dr. Sung Moore WBC 9.8 103/ul Normal 4.0-11.0 [facility] Comment on above: Performed By: #### C MP, BNP #### [facility] [address] [place] [address] Dr. Sung Moore CRPon 03-21-2022 CRP 19.1 mg/dL Critically high <=1.0 [facility] Comment on above: Performed By: #### C MP, BNP #### [facility] [address] [place] [address] Dr. Sung Moore PROF 14(COMP METB)on 022 Albumin [Mass/Vol] 1.9 g/dL Critically low 3.4-5.0 [facility] Comment on above: Performed By: #### C MP, BNP #### [facility] [address] [place] [address] Dr. Sung Moore Albumin/Globulin [Mass ratio] 0.4 {ratio} Normal [facility] Comment on above: Performed By: #### C MP, BNP #### [facility] [address] [place] [address] Dr. Sung Moore ALP [Catalytic activity/Vol] 91 U/L Normal 46-116 [facility] Comment on above: Performed By: #### C MP, BNP #### [facility] [address] [place] [address] Dr. Sung Moore ALT [Catalytic activity/Vol] 14 U/L Normal 14-59 [facility] Comment on above: Performed By: #### C MP, BNP #### [facility] [address] [place] [address] Dr. Sung Moore Anion gap [Moles/Vol] 13.1 mmol/L Normal [facility] Comment on above: Performed By: #### C MP, BNP #### [facility] [address] [place] [address] Dr. Sung Moore AST [Catalytic activity/Vol] 23 U/L Normal 15-37 [facility] Comment on above: Performed By: #### C MP, BNP #### [facility] [address] [address] [address] Sung Moore Bilirubin [Mass/Vol] 0.3 mg/dL Normal 0.2-1.0 [facility] Comment on above: Performed By: #### C MP, BNP #### [facility] [address] [place] [address] Dr. Sung Moore Calcium [Mass/Vol] 8.6 mg/dL Normal 8.5-10.1 [facility] Comment on above: Performed By: #### C MP, BNP #### [facility] [address] [place] [address] Dr. Sung Moore Chloride [Moles/Vol] 105 mmol/L Normal 98-107 [facility] Comment on above: Performed By: #### C MP, BNP #### [facility] [address] [place] [address] Dr. Sung Moore CO2 [Moles/Vol] 21.7 mmol/L Normal 21.0-32.0 [facility] Comment on above: Performed By: #### C MP, BNP #### [facility] [address] [place] [address] Dr. Sung Moore Creatinine [Mass/Vol] 0.67 mg/dL Normal 0.55-1.02 [facility] Comment on above: Performed By: #### C MP, BNP #### [facility] [address] [place] [address] Dr. Sung Moore EGFR-AF IVORIAN >60 Normal >=60 [facility] Comment on above: Performed By: #### C MP, BNP #### [facility] [address] [place] [address] Dr. Sung Moore EGFR-NON AF IVORIAN >60 Normal >=60 [facility] Comment on above: Performed By: #### C MP, BNP #### [facility] [address] [place] [address] Dr. Sung Moore Globulin (S) [Mass/Vol] 5.0 g/dL Normal [facility] Comment on above: Performed By: #### C MP, BNP #### [facility] [address] [address] [address] Sung Moore Glucose [Mass/Vol] 107 mg/dL Critically high 74-106 [facility] Comment on above: Performed By: #### C MP, BNP #### [facility] [address] [place] [address] Dr. Sung Moore Potassium [Moles/Vol] 3.8 mmol/L Normal 3.5-5.1 [facility] Comment on above: Performed By: #### C MP, BNP #### [facility] [address] [place] [address] Dr. Sung Moore Protein [Mass/Vol] 6.9 g/dL Normal 6.4-8.2 [facility] Comment on above: Performed By: #### C MP, BNP #### [facility] [address] [place] [address] Dr. Sung Moore Sodium [Moles/Vol] 136 mmol/L Normal 136-145 [facility] Comment on above: Performed By: #### C MP, BNP #### [facility] [address] [place] [address] Dr. Sung Moore Urea nitrogen [Mass/Vol] 10.0 mg/dL Normal 7.0-18.0 [facility] Comment on above: Performed By: #### C MP, BNP #### [facility] [address] [place] [address] Dr. Sung Moore Urea nitrogen/Creatinine [Mass ratio] 14.9 mg/mg Normal [facility] Comment on above: Performed By: #### C MP, BNP #### [facility] [address] [place] [address] Dr. Sung Moore CARDIAC CARL 3-6on 2 CK [Catalytic activity/Vol] 40 U/L Normal 26-192 [facility] Comment on above: Performed By: #### C RP, CMP #### [facility] [address] [place] [address] Dr. Sung Moore CK.MB [Mass/Vol] 0.81 ng/mL Normal <=3.60 [facility] Comment on above: Performed By: #### C RP, CMP #### [facility] [address] [place] [address] Dr. Sung Moore HSTROP 9.0 pg/mL Normal 4.0-51.3 [facility] Comment on above: Result Comment: CUT- OFF POINTS HAVE BEEN ESTABLISHED BASED ON THE FOURTH UNIVERSAL DEFINITIONS OF MYOCARDIAL INFARCTION. THE UPPER REFERENCE LIMIT (URL) OF TROPONIN, DEFINED THE 99TH PERCENTILE OF cTnI DISTRIBUTION IN A REFERENCE POPULATION, HAS BEEN CONFIRMED THE DECISION THRESHOLD FOR MS DIAGNOSIS. Performed By: #### C RP, CMP #### [facility] [address] [place] [address] Dr. Sung Moore CK [Catalytic activity/Vol] 42 U/L Normal 26-192 [facility] Comment on above: Performed By: #### C MP, BNP #### [facility] [address] [place] [address] Dr. Sung Moore CK.MB [Mass/Vol] 0.90 ng/mL Normal <=3.60 [facility] Comment on above: Performed By: #### C MP, BNP #### [facility] [address] [place] [address] Dr. Sung Moore HSTROP 9.7 pg/mL Normal 4.0-51.3 [facility] Comment on above: Result Comment: CUT- OFF POINTS HAVE BEEN ESTABLISHED BASED ON THE FOURTH UNIVERSAL DEFINITIONS OF MYOCARDIAL INFARCTION. THE UPPER REFERENCE LIMIT (URL) OF TROPONIN, DEFINED THE 99TH PERCENTILE OF cTnI DISTRIBUTION IN A REFERENCE POPULATION, HAS BEEN CONFIRMED THE DECISION THRESHOLD FOR MS DIAGNOSIS. Performed By: #### C MP, BNP #### [facility] [address] [place] [address] Dr. Sung Moore CARDIAC CARL ADMITon 022 CK [Catalytic activity/Vol] 44 U/L Normal 26-192 [facility] Comment on above: Performed By: #### L ACT #### [facility] [address] [place] [address] Dr. Sung Moore CK.MB [Mass/Vol] 0.47 ng/mL Normal <=3.60 [facility] Comment on above: Performed By: #### L ACT #### [facility] [address] [place] [address] Dr. Sung Moore HSTROP 9.1 pg/mL Normal 4.0-51.3 [facility] Comment on above: Result Comment: CUT- OFF POINTS HAVE BEEN ESTABLISHED BASED ON THE FOURTH UNIVERSAL DEFINITIONS OF MYOCARDIAL INFARCTION. THE UPPER REFERENCE LIMIT (URL) OF TROPONIN, DEFINED THE 99TH PERCENTILE OF cTnI DISTRIBUTION IN A REFERENCE POPULATION, HAS BEEN CONFIRMED THE DECISION THRESHOLD FOR MS DIAGNOSIS. Performed By: #### L ACT #### [facility] [address] [place] [address] Dr. Sung Moore CELESTINE 55 ng/mL Normal 9-82 [facility] Comment on above: Performed By: #### L ACT #### [facility] [address] [place] [address] Dr. Sung Moroe CBC AUTO DIFFon 03-20-2022 BASO # 0.0 103/ul Normal 0.0-0.1 [facility] Comment on above: Performed By: #### C RP, CMP #### [facility] [address] [place] [address] Dr. Sung Moore Basophils/100 WBC (Bld) 0.2 % Normal 0.2-2.0 [facility] Comment on above: Performed By: #### C RP, CMP #### [facility] [address] [place] [address] Dr. Sung Moore EO # 0.1 103/ul Normal 0.0-0.7 [facility] Comment on above: Performed By: #### C RP, CMP #### [facility] [address] [place] [address] Dr. Sung Moore Eosinophils/100 WBC (Bld) 0.6 % Critically low 0.9-7.0 [facility] Comment on above: Performed By: #### C RP, CMP #### [facility] [address] [place] [address] Dr. Sung Moore Erythrocyte distribution width (RBC) [Ratio] 15.7 % Critically high 11.0-15.0 [facility] Comment on above: Performed By: #### C RP, CMP #### [facility] [address] [place] [address] Dr. Sung Moore Hematocrit (Bld) [Volume fraction] 25.7 % Critically low 36.0-48.0 [facility] Comment on above: Performed By: #### C RP, CMP #### [facility] [address] [place] [address] Dr. Sung Moore Hemoglobin (Bld) [Mass/Vol] 8.3 g/dL Critically low 12.0-16.0 [facility] Comment on above: Performed By: #### C RP, CMP #### [facility] [address] [place] [address] Dr. Sung Moore IG # 0.12 10e3/ul Critically high 0.00-0.[address] [facility] Comment on above: Performed By: #### C RP, CMP #### [facility] [address] [place] [address] Dr. Sung Moore IG % 1.0 % Critically high 0.0-0.5 [facility] Comment on above: Performed By: #### C RP, CMP #### [facility] [address] [place] [address] Dr. Sung Moore LYMPH # 2.0 103/ul Normal 1.2-3.8 [facility] Comment on above: Performed By: #### C RP, CMP #### [facility] [address] [place] [address] Dr. Sung Moore Lymphocytes/100 WBC (Bld) 16.7 % Critically low 20.5-60.0 [facility] Comment on above: Performed By: #### C RP, CMP #### [facility] [address] [place] [address] Dr. Sung Moore MANUAL DIFF REQ NO Normal [facility] Comment on above: Performed By: #### C RP, CMP #### [facility] [address] [place] [address] Dr. Sung Moore MCH (RBC) [Entitic mass] 26.4 pg Critically low 26.7-34.0 [facility] Comment on above: Performed By: #### C RP, CMP #### [facility] [address] [address] [address] Sung Moore MCHC (RBC) [Mass/Vol] 32.3 g/dL Normal 29.9-35.2 [facility] Comment on above: Performed By: #### C RP, CMP #### [facility] [address] [place] [address] Dr. Sung Moore MCV (RBC) [Entitic vol] 81.8 fL Normal 81.0-99.0 [facility] Comment on above: Performed By: #### C RP, CMP #### [facility] [address] [place] [address] Dr. Sung Moore MONO # 1.3 103/ul Critically high 0.3-0.[address] [facility] Comment on above: Performed By: #### C RP, CMP #### [facility] [address] [place] [address] Dr. Sung Moore Monocytes/100 WBC (Bld) 10.8 % Normal 1.7-12.0 [facility] Comment on above: Performed By: #### C RP, CMP #### [facility] [address] [place] [address] Dr. Sung Moore NEUT # 8.6 103/ul Critically high 1.4-6.[address] [facility] Comment on above: Performed By: #### C RP, CMP #### [facility] [address] [place] [address] Dr. Sung Moore Neutrophils/100 WBC (Bld) 70.7 % Normal 43.0-75.0 [facility] Comment on above: Performed By: #### C RP, CMP #### [facility] [address] [place] [address] Dr. Sung Moore Platelet mean volume (Bld) [Entitic vol] 8.6 fL Critically low 9.5-13.5 [facility] Comment on above: Performed By: #### C RP, CMP #### [facility] [address] [address] [address] Sung Moore PLT 305 103/ul Normal 150-450 [facility] Comment on above: Performed By: #### C RP, CMP #### [facility] [address] [address] [address] Sung Moore RBC 3.14 106/ul Critically low 4.20-5.[address] [facility] Comment on above: Performed By: #### C RP, CMP #### [facility] [address] [address] [address] Sung Moore WBC 12.1 103/ul Critically high 4.0-11.0 [facility] Comment on above: Performed By: #### C RP, CMP #### [facility] [address] [address] [address] Sung Moore BASO # 0.0 103/ul Normal 0.0-0.1 [facility] Comment on above: Performed By: #### C MP, BNP #### [facility] [address] [address] [address] Sung Moore Basophils/100 WBC (Bld) 0.1 % Critically low 0.2-2.0 [facility] Comment on above: Performed By: #### C MP, BNP #### [facility] [address] [address] [address] Sung Moore EO # 0.0 103/ul Normal 0.0-0.7 [facility] Comment on above: Performed By: #### C MP, BNP #### [facility] [address] [address] [address] Sung Moore Eosinophils/100 WBC (Bld) 0.2 % Critically low 0.9-7.0 [facility] Comment on above: Performed By: #### C MP, BNP #### [facility] [address] [address] [address] Sung Moore Erythrocyte distribution width (RBC) [Ratio] 15.6 % Critically high 11.0-15.0 [facility] Comment on above: Performed By: #### C MP, BNP #### [facility] [address] [address] [address] Sung Moore Hematocrit (Bld) [Volume fraction] 30.2 % Critically low 36.0-48.0 [facility] Comment on above: Performed By: #### C MP, BNP #### [facility] [address] [place] [address] Dr. Sung Moore Hemoglobin (Bld) [Mass/Vol] 9.7 g/dL Critically low 12.0-16.0 [facility] Comment on above: Performed By: #### C MP, BNP #### [facility] [address] [place] [address] Dr. Sung Moore IG # 0.10 10e3/ul Critically high 0.00-0.[address] [facility] Comment on above: Performed By: #### C MP, BNP #### [facility] [address] [place] [address] Dr. Sung Moore IG % 0.7 % Critically high 0.0-0.5 [facility] Comment on above: Performed By: #### C MP, BNP #### [facility] [address] [place] [address] Dr. Sung Moore LYMPH # 1.8 103/ul Normal 1.2-3.8 [facility] Comment on above: Performed By: #### C MP, BNP #### [facility] [address] [place] [address] Dr. Sung Moore Lymphocytes/100 WBC (Bld) 11.9 % Critically low 20.5-60.0 [facility] Comment on above: Performed By: #### C MP, BNP #### [facility] [address] [place] [address] Dr. Sung Moore MANUAL DIFF REQ NO Normal [facility] Comment on above: Performed By: #### C MP, BNP #### [facility] [address] [place] [address] Dr. Sung Moore MCH (RBC) [Entitic mass] 25.9 pg Critically low 26.7-34.0 [facility] Comment on above: Performed By: #### C MP, BNP #### [facility] [address] [place] [address] Dr. Sung Moore MCHC (RBC) [Mass/Vol] 32.1 g/dL Normal 29.9-35.2 [facility] Comment on above: Performed By: #### C MP, BNP #### [facility] [address] [place] [address] Dr. Sung Moore MCV (RBC) [Entitic vol] 80.7 fL Critically low 81.0-99.0 [facility] Comment on above: Performed By: #### C MP, BNP #### [facility] [address] [place] [address] Dr. Sung Moore MONO # 1.4 103/ul Critically high 0.3-0.[address] [facility] Comment on above: Performed By: #### C MP, BNP #### [facility] [address] [place] [address] Dr. Sung Moore Monocytes/100 WBC (Bld) 9.3 % Normal 1.7-12.0 [facility] Comment on above: Performed By: #### C MP, BNP #### [facility] [address] [place] [address] Dr. Sung Moore NEUT # 11.7 103/ul Critically high 1.4-6.5 [facility] Comment on above: Performed By: #### C MP, BNP #### [facility] [address] [place] [address] Dr. Sung Moore Neutrophils/100 WBC (Bld) 77.8 % Critically high 43.0-75.0 [facility] Comment on above: Performed By: #### C MP, BNP #### [facility] [address] [place] [address] Dr. Sung Moore Platelet mean volume (Bld) [Entitic vol] 8.5 fL Critically low 9.5-13.5 [facility] Comment on above: Performed By: #### C MP, BNP #### [facility] [address] [place] [address] Dr. Sung Moore PLT 342 103/ul Normal 150-450 [facility] Comment on above: Performed By: #### C MP, BNP #### [facility] [address] [place] [address] Dr. Sung Moore RBC 3.74 106/ul Critically low 4.20-5.[address] [facility] Comment on above: Performed By: #### C MP, BNP #### [facility] [address] [address] [address] Sung Moore WBC 15.1 103/ul Critically high 4.0-11.0 [facility] Comment on above: Performed By: #### C MP, BNP #### [facility] [address] [address] [address] Sung Moore CRPon 03-20-2022 CRP 57.7 mg/dL Critically high <=1.[address] [facility] Comment on above: Performed By: #### L ACT #### [facility] [address] [address] [address] HEAD WO CONon [...] TARAS SAID Date: 2022-03-19 23:59 Normal [facility] Covid-19 PCR (CVDTB)on SARS-CoV-2 (COVID-19) RNA ROMY+probe Ql (Unsp spec) Not detected Normal NOT DETECTED [facility] Comment on above: Result Comment: When diagnostic [...] for this test is supported by the [place] of [employer] and Human Service's declaration that [...] Performed By: #### C RP, CMP #### [facility] [address] [place] [address] Dr. Sung Moore ER URINE PROFILEon 2 Bilirubin Ql (U) Negative Normal NEGATIVE [facility] Comment on above: Performed By: #### C MP, BNP #### [facility] [address] [place] [address] Dr. Sung Moore Clarity (U) CLEAR Normal CLEAR [facility] Comment on above: Performed By: #### C MP, BNP #### [facility] [address] [place] [address] Dr. Sung Moore Color (U) YELLOW Normal YELLOW [facility] Comment on above: Performed By: #### C MP, BNP #### [facility] [address] [place] [address] Dr. Sung Moore ERUAHD A micrscopic examina tion will be performed if indicated. Normal [facility] Comment on above: Performed By: #### C MP, BNP #### [facility] [address] [place] [address] Dr. Sung Moore Glucose Ql (U) Negative Normal NEGATIVE [facility] Comment on above: Performed By: #### C MP, BNP #### [facility] [address] [place] [address] Dr. Sung Moore Hemoglobin Ql (U) MODERATE Abnormal NEGATIVE [facility] Comment on above: Performed By: #### C MP, BNP #### [facility] [address] [place] [address] Dr. Sung Moore Ketones Ql (U) Negative Normal NEGATIVE [facility] Comment on above: Performed By: #### C MP, BNP #### [facility] [address] [place] [address] Dr. Sung Moore LEUKOCYTES LARGE Abnormal NEGATIVE [facility] Comment on above: Performed By: #### C MP, BNP #### [facility] [address] [place] [address] Dr. Sung Moore Nitrite Ql (U) Positive Abnormal NEGATIVE [facility] Comment on above: Performed By: #### C MP, BNP #### [facility] [address] [place] [address] Dr. Sung Moore pH (U) 6.0 [pH] Normal 5-9 [facility] Comment on above: Performed By: #### C MP, BNP #### [facility] [address] [place] [address] Dr. Sung Moore SPEC GRAVITY 1.015 Normal 1.005-<=1. 025 [facility] Comment on above: Performed By: #### C MP, BNP #### [facility] [address] [place] [address] Dr. Sung Moore UA PROTEIN Negative Normal NEGATIVE/ TRACE [facility] Comment on above: Performed By: #### C MP, BNP #### [facility] [address] [place] [address] Dr. Sung Moore UR MICRO IND INDICATED Normal [facility] Comment on above: Performed By: #### C MP, BNP #### [facility] [address] [place] [address] Dr. Sung Moore Urobilinogen Qn (U) 0.2 {David'U}/dL Normal 0.2 - 1. 0 [facility] Comment on above: Performed By: #### C MP, BNP #### [facility] [address] [place] [address] Dr. Sung Moore LACTATE/LACTIC ACIDon 2021 Lactate [Moles/Vol] 0.6 mmol/L Normal 0.4-1.9 [facility] Comment on above: Performed By: #### C RP, CMP #### [facility] [address] [address] [address] Sung Moore Lactate [Moles/Vol] 0.8 mmol/L Normal 0.4-1.9 [facility] Comment on above: Performed By: #### L ACT #### [facility] [address] [address] [address] Sung Moore POINT OF CARE GLUCOSEon 10-0 Glucose [Mass/Vol] 148 mg/dL Critically high 74-106 [facility] Comment on above: Performed By: #### L ACT #### [facility] [address] [place] [address] Dr. Sung Moore PROF CHEM 8 (BAS METB)on Anion gap [Moles/Vol] 10.6 mmol/L Normal [facility] Comment on above: Performed By: #### C MP, BNP #### [facility] [address] [place] [address] Dr. Sung Moore Calcium [Mass/Vol] 8.5 mg/dL Normal 8.5-10.1 [facility] Comment on above: Performed By: #### C MP, BNP #### [facility] [address] [place] [address] Dr. Sung Moore Chloride [Moles/Vol] 102 mmol/L Normal 98-107 [facility] Comment on above: Performed By: #### C MP, BNP #### [facility] [facility] [address] [place] [address] Dr. Sung Moore CO2 [Moles/Vol] 24.8 mmol/L Normal 21.0-32.0 [facility] Comment on above: Performed By: #### C MP, BNP #### [facility] [address] [place] [address] Dr. Sung Moore Creatinine [Mass/Vol] 0.77 mg/dL Normal 0.55-1.02 [facility] Comment on above: Performed By: #### C MP, BNP #### [facility] [address] [address] [address] Sung Moore EGFR-AF IVORIAN >60 Normal >=60 [facility] Comment on above: Performed By: #### C MP, BNP #### [facility] [address] [address] [address] Sung Moore EGFR-NON AF IVORIAN >60 Normal >=60 [facility] Comment on above: Performed By: #### C MP, BNP #### [facility] [address] [address] [address] Sung Moore Glucose [Mass/Vol] 117 mg/dL Critically high 74-106 [facility] Comment on above: Performed By: #### C MP, BNP #### [facility] [address] [place] [address] Dr. Sung Moore Potassium [Moles/Vol] 3.4 mmol/L Critically low 3.5-5.1 [facility] Comment on above: Performed By: #### C MP, BNP #### [facility] [address] [place] [address] Dr. Sung Moore Sodium [Moles/Vol] 134 mmol/L Critically low 136-145 [facility] Comment on above: Performed By: #### C MP, BNP #### [facility] [address] [place] [address] Dr. Sung Moore Urea nitrogen [Mass/Vol] 12.0 mg/dL Normal 7.0-18.0 [facility] Comment on above: Performed By: #### C MP, BNP #### [facility] [address] [place] [address] Dr. Sung Moore Urea nitrogen/Creatinine [Mass ratio] 15.6 mg/mg Normal [facility] Comment on above: Performed By: #### C MP, BNP #### [facility] [address] [place] [address] Dr. Sung Moore Anion gap [Moles/Vol] 13.7 mmol/L Normal [facility] Comment on above: Performed By: #### L ACT #### [facility] [address] [address] [address] Sung Moore Calcium [Mass/Vol] 8.7 mg/dL Normal 8.5-10.1 [facility] Comment on above: Performed By: #### L ACT #### [facility] [address] [address] [address] Sung Moore Chloride [Moles/Vol] 93 mmol/L Critically low 98-107 [facility] Comment on above: Performed By: #### L ACT #### [facility] [address] [address] [address] Sung Moore CO2 [Moles/Vol] 23.3 mmol/L Normal 21.0-32.0 [facility] Comment on above: Performed By: #### L ACT #### [facility] [address] [address] [address] Sung Moore Creatinine [Mass/Vol] 0.78 mg/dL Normal 0.55-1.02 [facility] Comment on above: Performed By: #### L ACT #### [facility] [address] [address] [address] Sung Moore EGFR-AF IVORIAN >60 Normal >=60 [facility] Comment on above: Performed By: #### L ACT #### [facility] [address] [place] [address] Dr. Sung Moore EGFR-NON AF IVORIAN >60 Normal >=60 [facility] Comment on above: Performed By: #### L ACT #### [facility] [address] [address] [address] Sung Moore Glucose [Mass/Vol] 154 mg/dL Critically high 74-106 [facility] Comment on above: Performed By: #### L ACT #### [facility] [address] [address] [address] Sung Moore Potassium [Moles/Vol] 4.0 mmol/L Normal 3.5-5.1 [facility] Comment on above: Performed By: #### L ACT #### [facility] [address] [address] [address] Sung Moore Sodium [Moles/Vol] 126 mmol/L Critically low 136-145 Th e [facility] Comment on above: Performed By: #### L ACT #### [facility] [address] [place] [address] Dr. Sung Moore Urea nitrogen [Mass/Vol] 15.0 mg/dL Normal 7.0-18.0 [facility] Comment on above: Performed By: #### L ACT #### [facility] [address] [place] [address] Dr. Sung Moore Urea nitrogen/Creatinine [Mass ratio] 19.2 mg/mg Normal The [facility] Comment on above: Performed By: #### L ACT #### [facility] [address] [place] [address] Dr. Sung Moore URINE MICROSCOPIC ONLYon BACTERIA LARGE Abnormal NONE SEEN The [facility] Comment on above: Performed By: #### C MP, BNP #### [facility] [address] [place] [address] Dr. Sung Moore Bacteria identified Cx Nom (U) INDICATED Normal The [facility] Comment on above: Performed By: #### C MP, BNP #### [facility] [address] [place] [address] Dr. Sung Moore CAST NONE SEEN Normal NONE SEEN [facility] Comment on above: Performed By: #### C MP, BNP #### [facility] [address] [place] [address] Dr. Sung Moore Crystals LM Nom (Urine sed) NONE SEEN Normal NONE SEEN The [facility] Comment on above: Performed By: #### C MP, BNP #### [facility] [address] [place] [address] Dr. Sung Moore Epithelial cells LM Ql (Urine sed) FEW Abnormal NONE SEEN /RARE The [facility] Comment on above: Performed By: #### C MP, BNP #### [facility] [address] [place] [address] Dr. Sung Moore MUCOUS TRACE Abnormal NONE SEEN The [facility] Comment on above: Performed By: #### C MP, BNP #### [facility] [address] [address] [address] Sung Moore RBC 5-10 Abnormal 0-2 The [facility] Comment on above: Performed By: #### C MP, BNP #### [facility] [address] [address] [address] Sung Moore WBC (U) [#/Vol] /uL Abnormal NONE SEEN The [facility] Comment on above: Performed By: #### C MP, BNP #### [facility] [id number] Sung Moore XR CHEST 1 Von [...] SAUNDRA LAGUERRE Date: 2022-03-19 23:56 Normal The [facility] BASIC METABOLIC PANELon 07-1 Calcium [Mass/Vol] 8.8 mg/dL Normal 8.6-10.3 [facility] Comment on above: Order Comment: No: D o not add to previous draw Performed By: #### 4 1000, 16666, 28456 #### [facility] [address] [place] [address], [place] Chloride [Moles/Vol] 101 mmol/L Normal 98-107 [facility] Comment on above: Order Comment: No: D o not add to previous draw Performed By: #### 4 1000, 12010, 95873 #### [facility] [address] [place] [address], [place] CO2 [Moles/Vol] 29 mmol/L Normal 21-31 [facility] Comment on above: Order Comment: No: D o not add to previous draw Performed By: #### 4 1000, 98074, 90272 #### [facility] [address] [place] [address], [place] Creatinine [Mass/Vol] 0.54 mg/dL Low 0.60-1.20 [facility] Comment on above: Order Comment: No: D o not add to previous draw Performed By: #### 4 1000, 78707, 65556 #### [facility] [address] [place] [address], [place] GFR/1.73 sq M.predicted among blacks MDRD (S/P/Bld) [Vol rate/Area] mL/min/{1.73_m2} Normal >60 [facility] Comment on above: Order Comment: No: D o not add to previous draw Result Comment: Calc ulation may not be valid for patients over 70 years Performed By: #### 4 1000, , 27222 #### [facility] [address] [place] [address], [place] GFR/1.73 sq M.predicted among non-blacks MDRD (S/P/Bld) [Vol rate/Area] mL/min/{1.73_m2} Normal >60 [facility] Comment on above: Order Comment: No: D o not add to previous draw Result Comment: Calc ulation may not be valid for patients over 70 years Performed By: #### 4 999, , 08083 #### [facility] [address] [place] [address], [place] Glucose [Mass/Vol] 85 mg/dL Normal 70-100 [facility] Comment on above: Order Comment: No: D o not add to previous draw Performed By: #### 4 1000, 06363, 98112 #### [facility] [address] [place] [address], [place] Potassium [Moles/Vol] 4.3 mmol/L Normal 3.5-5.1 [facility] Comment on above: Order Comment: No: D o not add to previous draw Performed By: #### 4 1000, 03805, 32511 #### [facility] [address] [place] [address], [facility] Sodium [Moles/Vol] 135 mmol/L Low 136-145 [facility] Comment on above: Order Comment: No: D o not add to previous draw Performed By: #### 4 1000, , 75070 #### [facility] [address] [place] [id number], [facility] Urea nitrogen [Mass/Vol] 8 mg/dL Normal 7-25 [facility] Comment on above: Order Comment: No: D o not add to previous draw Performed By: #### 4 999, , #### [facility] [address] CBC COMPLETE BLOOD COUNTon 0 - Erythrocyte distribution width (RBC) [Ratio] 16.9 % High 11.5-15.0 [facility] Comment on above: Order Comment: No: D o not add to previous draw Performed By: #### 4 999, , 58114 #### [facility] [address] Hematocrit (Bld) [Volume fraction] 32.5 % Low 36.0-45.0 [facility] Comment on above: Order Comment: No: D o not add to previous draw Performed By: #### 4 999, , 15375 #### [facility] [address] [place] [address], [facility] Hemoglobin (Bld) [Mass/Vol] 10.3 g/dL Low 12.0-15.0 The [facility] Comment on above: Order Comment: No: D o not add to previous draw Performed By: #### 4 1000, , 48601 #### [facility] [address] [place] [id number], [facility] MCH (RBC) [Entitic mass] 27.4 pg Normal 27.0-33.0 The [facility] Comment on above: Order Comment: No: D o not add to previous draw Performed By: #### 4 1000, , 81783 #### [facility] [address] [place] [address], [facility] MCHC (RBC) [Mass/Vol] 31.7 g/dL Low 32.0-35.0 The [facility] Comment on above: Order Comment: No: D o not add to previous draw Performed By: #### 4 1000, , 58105 #### [facility] [address] [place] [id number], [facility] MCV (RBC) [Entitic vol] 86.4 fL Normal 82.0-98.0 [facility] Comment on above: Order Comment: No: D o not add to previous draw Performed By: #### 4 1000, , #### [facility] [address] [place] [address], [facility] Nucleated RBC/100 WBC (Bld) [Ratio] 0 % Normal 0-0 [facility] Comment on above: Order Comment: No: D o not add to previous draw Performed By: #### 4 1000, , 09759 #### [facility] [address] [place] [address], [place] PLAT CNT 298 10*3/uL Normal 150-400 [facility] Comment on above: Order Comment: No: D o not add to previous draw Performed By: #### 4 1000, , 90375 #### [facility] [address] [place] [id number], [place] RBC (Bld) [#/Vol] 3.76 10*6/uL Low 3.80-5.00 [facility] Comment on above: Order Comment: No: D o not add to previous draw Performed By: #### 4 1000, , 03085 #### [facility] [address] [place] [id number], [place] WBC (Bld) [#/Vol] 6.86 10*3/uL Normal 4.00-10.60 [facility] Comment on above: Order Comment: No: D o not add to previous draw Performed By: #### 4 1000, 59982, 35109 #### [facility] [address] [facility] [facility] [place] [address], [facility] MAGNESIUM BLOODon 12-29-2021 Magnesium [Mass/Vol] 2.3 mg/dL Normal 1.9-2.7 The [facility] Comment on above: Order Comment: No: D o not add to previous draw Performed By: #### 4 1000, 05328, 62905 #### [facility] [address] [place] [address], [facility] PHOSPHORUS BLOODon 2 Phosphate [Mass/Vol] 4.1 mg/dL Normal 2.5-5.0 The [facility] Comment on above: Order Comment: No: D o not add to previous draw Performed By: #### 4 1000, 84034, 69008 #### [facility] [address] [facility] [facility] [place] [address], [facility] PORTABLE ABDOMENon 2 PORTABLE ABDOMEN [facility] Department of Radiology [address] [place] [id number] Patient Name: SABI SANTAMARIA : 1945 Sex: F Age: Race: Other Pt. Location: [id number] Patient Status: I Ordered Date: 12/29/2021 6:00:00 [...] remains. Electronically signed: Saundra Hyde. Transcribed by: [email or web address], User Resident: Electronically Signed by: SAUNDRA HYDE @ 12/29/2021 07:07 AM Normal [facility] Comment on above: Order Comment: No: D o not add to previous draw BASIC METABOLIC PANELon 12-16 Calcium [Mass/Vol] 8.6 mg/dL Normal 8.6-10.3 [facility] Comment on above: Order Comment: No: D o not add to previous draw Performed By: #### 4 999, , 98813 #### [facility] [address] [place] [address], [place] Chloride [Moles/Vol] 104 mmol/L Normal 98-107 The [facility] Comment on above: Order Comment: No: D o not add to previous draw Performed By: #### 4 1000, 29652, 59691 #### [facility] [address] [place] [address], [place] CO2 [Moles/Vol] 27 mmol/L Normal 21-31 The [facility] Comment on above: Order Comment: No: D o not add to previous draw Performed By: #### 4 1000, , 79838 #### [facility] [address] [place] [address], [place] Creatinine [Mass/Vol] 0.57 mg/dL Low 0.60-1.20 [facility] Comment on above: Order Comment: No: D o not add to previous draw Performed By: #### 4 1000, , 89447 #### [facility] [address] [place] [address], [place] GFR/1.73 sq M.predicted among blacks MDRD (S/P/Bld) [Vol rate/Area] mL/min/{1.73_m2} Normal >60 The [facility] Comment on above: Order Comment: No: D o not add to previous draw Result Comment: Calc ulation may not be valid for patients over 70 years Performed By: #### 4 1000, , 93896 #### [facility] [address] [place] [address], [place] GFR/1.73 sq M.predicted among non-blacks MDRD (S/P/Bld) [Vol rate/Area] mL/min/{1.73_m2} Normal >60 The [facility] Comment on above: Order Comment: No: D o not add to previous draw Result Comment: Calc ulation may not be valid for patients over 70 years Performed By: #### 4 1000, , 50743 #### [facility] [address] [place] [address], [place] Glucose [Mass/Vol] 117 mg/dL High 70-100 The [facility] Comment on above: Order Comment: No: D o not add to previous draw Performed By: #### 4 1000, , 71380 #### [facility] [address] [place] [address], [place] Potassium [Moles/Vol] 4.4 mmol/L Normal 3.5-5.1 [facility] Comment on above: Order Comment: No: D o not add to previous draw Performed By: #### 4 1000, 67449, 77221 #### [facility] [address] [place] [address], [facility] Sodium [Moles/Vol] 137 mmol/L Normal 136-145 The [facility] Comment on above: Order Comment: No: D o not add to previous draw Performed By: #### 4 1000, 17406, 29318 #### [facility] [address] [place] [address], [facility] Urea nitrogen [Mass/Vol] 4 mg/dL Low 7-25 The [facility] Comment on above: Order Comment: No: D o not add to previous draw Performed By: #### 4 1000, , 13047 #### [facility] [address] [place] [address], [facility] CBC COMPLETE BLOOD COUNTon 0 - Erythrocyte distribution width (RBC) [Ratio] 17.0 % High 11.5-15.0 The [facility] Comment on above: Order Comment: No: D o not add to previous draw Performed By: #### 8 8389 #### [facility] [address] [place] [address], [place] Hematocrit (Bld) [Volume fraction] 32.5 % Low 36.0-45.0 [facility] Comment on above: Order Comment: No: D o not add to previous draw Performed By: #### 8 1369 #### [facility] [address] [place] [address], [place] Hemoglobin (Bld) [Mass/Vol] 10.4 g/dL Low 12.0-15.0 [facility] Comment on above: Order Comment: No: D o not add to previous draw Performed By: #### 8 3369 #### [facility] [address] [place] [address], [place] MCH (RBC) [Entitic mass] 27.7 pg Normal 27.0-33.0 [facility] Comment on above: Order Comment: No: D o not add to previous draw Performed By: #### 8 5499 #### [facility] [address] [facility]. [address] MCHC (RBC) [Mass/Vol] 32.0 g/dL Normal 32.0-35.0 [facility] Comment on above: Order Comment: No: D o not add to previous draw Performed By: #### 8 5499 #### [facility] [address] [facility]. [address] MCV (RBC) [Entitic vol] 86.4 fL Normal 82.0-98.0 [facility] Comment on above: Order Comment: No: D o not add to previous draw Performed By: #### 8 5499 #### [facility] [address] Nucleated RBC/100 WBC (Bld) [Ratio] 0 % Normal 0-0 [facility] Comment on above: Order Comment: No: D o not add to previous draw Performed By: #### 8 5499 #### [facility] [address] [facility] [address], [facility] PLAT CNT 259 10*3/uL Normal 150-400 [facility] Comment on above: Order Comment: No: D o not add to previous draw Performed By: #### 8 5499 #### [facility] [address] [facility] [address], [facility] RBC (Bld) [#/Vol] 3.76 10*6/uL Low 3.80-5.00 [facility] Comment on above: Order Comment: No: D o not add to previous draw Performed By: #### 8 5499 #### [facility] [address] [place] [address], [facility] WBC (Bld) [#/Vol] 6.18 10*3/uL Normal 4.00-10.60 [facility] Comment on above: Order Comment: No: D o not add to previous draw Performed By: #### 8 5499 #### [facility] [address] [place] [address], [facility] MAGNESIUM BLOODon 12-28-2021 Magnesium [Mass/Vol] 2.1 mg/dL Normal 1.9-2.7 [facility] Comment on above: Order Comment: No: D o not add to previous draw Performed By: #### 4 1000, 60892, 35449 #### [facility] [address] [place] [address], [facility] PHOSPHORUS BLOODon Phosphate [Mass/Vol] 3.5 mg/dL Normal 2.5-5.0 The [facility] Comment on above: Order Comment: No: D o not add to previous draw Performed By: #### 4 1000, 93907, 91441 #### [facility] [address] [place] [address], [facility] POC GLUCOSE LABon 12-28-2021 Glucose [Mass/Vol] 124 mg/dL High 70-100 The [facility] Comment on above: Performed By: #### 8 5499 #### [facility] [address] [place] [address], [place] Glucose [Mass/Vol] 111 mg/dL High 70-100 The [facility] Comment on above: Performed By: #### 8 5499 #### [facility] [address] [place] [address], [facility] BASIC METABOLIC PANELon 12-16 Calcium [Mass/Vol] 8.4 mg/dL Low 8.6-10.3 [facility] Comment on above: Order Comment: No: D o not add to previous draw Performed By: #### 4 1000, 42550, 53889 #### [facility] [address] [place] [address], [place] Chloride [Moles/Vol] 106 mmol/L Normal 98-107 [facility] Comment on above: Order Comment: No: D o not add to previous draw Performed By: #### 4 1000, 11702, 96176 #### [facility] [address] [place] [address], [place] CO2 [Moles/Vol] 23 mmol/L Normal 21-31 The [facility] Comment on above: Order Comment: No: D o not add to previous draw Performed By: #### 4 1000, 72979, 52814 #### [facility] [address] [place] [address], [place] Creatinine [Mass/Vol] 0.52 mg/dL Low 0.60-1.20 [facility] Comment on above: Order Comment: No: D o not add to previous draw Performed By: #### 4 1000, , 38186 #### [facility] [address] [place] [address], [place] GFR/1.73 sq M.predicted among blacks MDRD (S/P/Bld) [Vol rate/Area] mL/min/{1.73_m2} Normal >60 The [facility] Comment on above: Order Comment: No: D o not add to previous draw Result Comment: Calc ulation may not be valid for patients over 70 years Performed By: #### 4 1000, , 09902 #### [facility] [address] [place] [address], [place] GFR/1.73 sq M.predicted among non-blacks MDRD (S/P/Bld) [Vol rate/Area] mL/min/{1.73_m2} Normal >60 The [facility] Comment on above: Order Comment: No: D o not add to previous draw Result Comment: Calc ulation may not be valid for patients over 70 years Performed By: #### 4 1000, 59533, 44227 #### [facility] [address] [place] [address], [place] Glucose [Mass/Vol] 119 mg/dL High 70-100 The [facility] Comment on above: Order Comment: No: D o not add to previous draw Performed By: #### 4 1000, 18537, 04051 #### [facility] [address] [place] [address], [place] Potassium [Moles/Vol] 3.7 mmol/L Normal 3.5-5.1 [facility] Comment on above: Order Comment: No: D o not add to previous draw Performed By: #### 4 1000, , 15963 #### [facility] [address] [place] [address], [place] Sodium [Moles/Vol] 137 mmol/L Normal 136-145 [facility] Comment on above: Order Comment: No: D o not add to previous draw Performed By: #### 4 1000, , 56628 #### [facility] [address] [place] [address], [place] Urea nitrogen [Mass/Vol] 3 mg/dL Low 7-25 [facility] Comment on above: Order Comment: No: D o not add to previous draw Performed By: #### 4 1000, , 74895 #### [facility] [address] [place] [address], [place] CBC COMPLETE BLOOD COUNTon 0 12-27-2021 Erythrocyte distribution width (RBC) [Ratio] 16.5 % High 11.5-15.0 [facility] Comment on above: Order Comment: No: D o not add to previous draw Performed By: #### 4 1000, , 93934 #### [facility] [address] [place] [address], [place] Hematocrit (Bld) [Volume fraction] 31.4 % Low 36.0-45.0 [facility] Comment on above: Order Comment: No: D o not add to previous draw Performed By: #### 4 1000, , 12517 #### [facility] [address] [place] [address], [place] Hemoglobin (Bld) [Mass/Vol] 10.2 g/dL Low 12.0-15.0 [facility] Comment on above: Order Comment: No: D o not add to previous draw Performed By: #### 4 1000, , 84341 #### [facility] [address] [place] [address], [facility] MCH (RBC) [Entitic mass] 28.1 pg Normal 27.0-33.0 [facility] Comment on above: Order Comment: No: D o not add to previous draw Performed By: #### 4 1000, , 08375 #### [facility] [address] [place] [address], [facility] MCHC (RBC) [Mass/Vol] 32.5 g/dL Normal 32.0-35.0 [facility] Comment on above: Order Comment: No: D o not add to previous draw Performed By: #### 4 1000, , 54001 #### [facility] [address] [place] [address], [facility] MCV (RBC) [Entitic vol] 86.5 fL Normal 82.0-98.0 [facility] Comment on above: Order Comment: No: D o not add to previous draw Performed By: #### 4 1000, , 66139 #### [facility] [address] [place] [address], [facility] Nucleated RBC/100 WBC (Bld) [Ratio] 0 % Normal 0-0 [facility] Comment on above: Order Comment: No: D o not add to previous draw Performed By: #### 4 1000, , 84924 #### [facility] [address] [place] [address], [facility] PLAT CNT 230 10*3/uL Normal 150-400 [facility] Comment on above: Order Comment: No: D o not add to previous draw Performed By: #### 4 1000, , 92198 #### [facility] [address] [place] [address], [facility] RBC (Bld) [#/Vol] 3.63 10*6/uL Low 3.80-5.00 [facility] Comment on above: Order Comment: No: D o not add to previous draw Performed By: #### 4 1000, , 11284 #### [facility] [address] [place] [address], [facility] WBC (Bld) [#/Vol] 6.60 10*3/uL Normal 4.00-10.60 [facility] Comment on above: Order Comment: No: D o not add to previous draw Performed By: #### 4 1000, , 74851 #### [facility] [address] [place] [address], [facility] MAGNESIUM BLOODon 12-27-2021 Magnesium [Mass/Vol] 1.6 mg/dL Low 1.9-2.7 [facility] Comment on above: Order Comment: No: D o not add to previous draw Performed By: #### 4 1000, , 00457 #### [facility] [address] [place] [id number], [facility] PHOSPHORUS BLOODon 2 Phosphate [Mass/Vol] 3.2 mg/dL Normal 2.5-5.0 [facility] Comment on above: Order Comment: No: D o not add to previous draw Performed By: #### 4 1000, , 46020 #### [facility] [address] [place] [id number], [facility] POC GLUCOSE LABon 12-27-2021 Glucose [Mass/Vol] 124 mg/dL High 70-100 [facility] Comment on above: Performed By: #### 4 1000, , 02957 #### [facility] [address] [place] [id number], [place] Glucose [Mass/Vol] 127 mg/dL High 70-100 [facility] Comment on above: Performed By: #### 8 5499 #### [facility] [address] [place] [address], [place] Glucose [Mass/Vol] 127 mg/dL High 70-100 [facility] Comment on above: Performed By: #### 4 1000, 40243, 37979 #### [facility] [address] [place] [address], [place] Glucose [Mass/Vol] 124 mg/dL High 70-100 [facility] Comment on above: Performed By: #### 4 1000, 81609, 74076 #### [facility] [address] [place] [address], [place] BASIC METABOLIC PANELon 07- Calcium [Mass/Vol] 8.4 mg/dL Low 8.6-10.3 [facility] Comment on above: Order Comment: No: D o not add to previous draw Performed By: #### 8 5499 #### [facility] [address] [place] [address], [place] Chloride [Moles/Vol] 105 mmol/L Normal 98-107 [facility] Comment on above: Order Comment: No: D o not add to previous draw Performed By: #### 8 5499 #### [facility] [address] [place] [address], [place] CO2 [Moles/Vol] 27 mmol/L Normal 21-31 [facility] Comment on above: Order Comment: No: D o not add to previous draw Performed By: #### 8 5499 #### [facility] [address] [place] [address], [place] Creatinine [Mass/Vol] 0.52 mg/dL Low 0.60-1.20 [facility] Comment on above: Order Comment: No: D o not add to previous draw Performed By: #### 8 5499 #### [facility] [address] [place] [address], [place] GFR/1.73 sq M.predicted among blacks MDRD (S/P/Bld) [Vol rate/Area] mL/min/{1.73_m2} Normal >60 [facility] Comment on above: Order Comment: No: D o not add to previous draw Result Comment: Calc ulation may not be valid for patients over 70 years Performed By: #### 8 5499 #### [facility] [address] [place] [address], [place] GFR/1.73 sq M.predicted among non-blacks MDRD (S/P/Bld) [Vol rate/Area] mL/min/{1.73_m2} Normal >60 [facility] Comment on above: Order Comment: No: D o not add to previous draw Result Comment: Calc ulation may not be valid for patients over 70 years Performed By: #### 8 5499 #### [facility] [address] [place] [address], [place] Glucose [Mass/Vol] 114 mg/dL High 70-100 [facility] Comment on above: Order Comment: No: D o not add to previous draw Performed By: #### 8 5499 #### [facility] [address] [place] [address], [place] Potassium [Moles/Vol] 3.5 mmol/L Normal 3.5-5.1 [facility] Comment on above: Order Comment: No: D o not add to previous draw Performed By: #### 8 5499 #### [facility] [address] [place] [address], [place] Sodium [Moles/Vol] 137 mmol/L Normal 136-145 [facility] Comment on above: Order Comment: No: D o not add to previous draw Performed By: #### 8 5499 #### [facility] [address] [place] [address], [place] Urea nitrogen [Mass/Vol] 3 mg/dL Low 7-25 [facility] Comment on above: Order Comment: No: D o not add to previous draw Performed By: #### 8 5499 #### [facility] [address] CBC COMPLETE BLOOD COUNTon 0 - Erythrocyte distribution width (RBC) [Ratio] 16.6 % High 11.5-15.0 [facility] Comment on above: Order Comment: No: D o not add to previous draw Performed By: #### 4 1000, , 84864 #### [facility] [address] [place] [id number], [facility] Hematocrit (Bld) [Volume fraction] 30.5 % Low 36.0-45.0 [facility] Comment on above: Order Comment: No: D o not add to previous draw Performed By: #### 4 1000, , 13947 #### [facility] [address] [place] [id number], [facility] Hemoglobin (Bld) [Mass/Vol] 10.0 g/dL Low 12.0-15.0 [facility] Comment on above: Order Comment: No: D o not add to previous draw Performed By: #### 4 1000, , 04787 #### [facility] [address] [place] [address], [facility] MCH (RBC) [Entitic mass] 27.8 pg Normal 27.0-33.0 [facility] Comment on above: Order Comment: No: D o not add to previous draw Performed By: #### 4 1000, , 56419 #### [facility] [address] [place] [id number], [facility] MCHC (RBC) [Mass/Vol] 32.8 g/dL Normal 32.0-35.0 [facility] Comment on above: Order Comment: No: D o not add to previous draw Performed By: #### 4 1000, , 94397 #### [facility] [address] [place] [address], [place] MCV (RBC) [Entitic vol] 84.7 fL Normal 82.0-98.0 [facility] Comment on above: Order Comment: No: D o not add to previous draw Performed By: #### 4 1000, , 91948 #### [facility] [address] [place] [address], [place] Nucleated RBC/100 WBC (Bld) [Ratio] 0 % Normal 0-0 [facility] Comment on above: Order Comment: No: D o not add to previous draw Performed By: #### 4 1000, , 97229 #### [facility] [address] [place] [address], [place] PLAT CNT 221 10*3/uL Normal 150-400 [facility] Comment on above: Order Comment: No: D o not add to previous draw Performed By: #### 4 1000, , 73652 #### [facility] [address] [place] [address], [place] RBC (Bld) [#/Vol] 3.60 10*6/uL Low 3.80-5.00 [facility] Comment on above: Order Comment: No: D o not add to previous draw Performed By: #### 4 1000, , 90289 #### [facility] [address] [place] [address], [place] WBC (Bld) [#/Vol] 6.18 10*3/uL Normal 4.00-10.60 [facility] Comment on above: Order Comment: No: D o not add to previous draw Performed By: #### 4 1000, , 89539 #### [facility] [address] [place] [address], [place] POC GLUCOSE LABon 12-26-2021 Glucose [Mass/Vol] 125 mg/dL High 70-100 [facility] Comment on above: Performed By: #### 8 5499 #### [facility] [address] [place] [address], [place] Glucose [Mass/Vol] 196 mg/dL High 70-100 [facility] Comment on above: Performed By: #### 4 1000, 99800, 78842 #### [facility] [address] [place] [address], [place] Glucose [Mass/Vol] 110 mg/dL High 70-100 [facility] Comment on above: Performed By: #### 4 1000, , 40724 #### [facility] [address] [place] [address], [place] Glucose [Mass/Vol] 114 mg/dL High 70-100 [facility] Comment on above: Performed By: #### 8 5499 #### [facility] [address] [place] [address], [place] BASIC METABOLIC PANELon 07- 0-2021 Calcium [Mass/Vol] 8.4 mg/dL Low 8.6-10.3 [facility] Comment on above: Order Comment: No: D o not add to previous draw Performed By: #### 4 1000, , 44645 #### [facility] [address] [place] [address], [place] Chloride [Moles/Vol] 101 mmol/L Normal 98-107 [facility] Comment on above: Order Comment: No: D o not add to previous draw Performed By: #### 4 1000, , 42249 #### [facility] [address] [place] [address], [place] CO2 [Moles/Vol] 27 mmol/L Normal 21-31 [facility] Comment on above: Order Comment: No: D o not add to previous draw Performed By: #### 4 1000, , 88620 #### [facility] [address] [place] [address], [place] Creatinine [Mass/Vol] 0.54 mg/dL Low 0.60-1.20 [facility] Comment on above: Order Comment: No: D o not add to previous draw Performed By: #### 4 1000, 50584, 25764 #### [facility] [address] [place] [address], [place] GFR/1.73 sq M.predicted among blacks MDRD (S/P/Bld) [Vol rate/Area] mL/min/{1.73_m2} Normal >60 [facility] Comment on above: Order Comment: No: D o not add to previous draw Result Comment: Calc ulation may not be valid for patients over 70 years Performed By: #### 4 1000, , 93468 #### [facility] [address] [place] [address], [place] GFR/1.73 sq M.predicted among non-blacks MDRD (S/P/Bld) [Vol rate/Area] mL/min/{1.73_m2} Normal >60 [facility] Comment on above: Order Comment: No: D o not add to previous draw Result Comment: Calc ulation may not be valid for patients over 70 years Performed By: #### 4 1000, , 34956 #### [facility] [address] [place] [address], [place] Glucose [Mass/Vol] 109 mg/dL High 70-100 [facility] Comment on above: Order Comment: No: D o not add to previous draw Performed By: #### 4 1000, , 37622 #### [facility] [address] [place] [address], [place] Potassium [Moles/Vol] 3.4 mmol/L Low 3.5-5.1 [facility] Comment on above: Order Comment: No: D o not add to previous draw Performed By: #### 4 1000, , 56949 #### [facility] [address] [place] [address], [place] Sodium [Moles/Vol] 135 mmol/L Low 136-145 [facility] Comment on above: Order Comment: No: D o not add to previous draw Performed By: #### 4 1000, , 12022 #### [facility] [address] [place] [address], [facility] Urea nitrogen [Mass/Vol] 5 mg/dL Low 7-25 [facility] Comment on above: Order Comment: No: D o not add to previous draw Performed By: #### 4 1000, , 06927 #### [facility] [address] [place] [id number], [facility] CBC COMPLETE BLOOD COUNTon 0 12-25-2021 Erythrocyte distribution width (RBC) [Ratio] 16.5 % High 11.5-15.0 [facility] Comment on above: Order Comment: No: D o not add to previous draw Performed By: #### 4 999, , #### [facility] [address] [place] [address], [facility] Hematocrit (Bld) [Volume fraction] 30.6 % Low 36.0-45.0 [facility] Comment on above: Order Comment: No: D o not add to previous draw Performed By: #### 4 999, , 09810 #### [facility] [address] [place] [id number], [facility] Hemoglobin (Bld) [Mass/Vol] 9.9 g/dL Low 12.0-15.0 [facility] Comment on above: Order Comment: No: D o not add to previous draw Performed By: #### 4 999, , 58204 #### [facility] [address] [place] [id number], [place] MCH (RBC) [Entitic mass] 28.0 pg Normal 27.0-33.0 [facility] Comment on above: Order Comment: No: D o not add to previous draw Performed By: #### 4 999, , 47225 #### [facility] [address] [place] [address], [place] MCHC (RBC) [Mass/Vol] 32.4 g/dL Normal 32.0-35.0 [facility] Comment on above: Order Comment: No: D o not add to previous draw Performed By: #### 4 1000, 90553, 29025 #### [facility] [address] [place] [address], [facility] MCV (RBC) [Entitic vol] 86.4 fL Normal 82.0-98.0 [facility] Comment on above: Order Comment: No: D o not add to previous draw Performed By: #### 4 1000, , 56864 #### [facility] [address] [place] [id number], [facility] Nucleated RBC/100 WBC (Bld) [Ratio] 0 % Normal 0-0 [facility] Comment on above: Order Comment: No: D o not add to previous draw Performed By: #### 4 1000, , 66644 #### [facility] [address] [place] [id number], [place] PLAT CNT 245 10*3/uL Normal 150-400 [facility] Comment on above: Order Comment: No: D o not add to previous draw Performed By: #### 4 1000, , 55900 #### [facility] [address] [facility] [place] [address], [facility] RBC (Bld) [#/Vol] 3.54 10*6/uL Low 3.80-5.00 [facility] Comment on above: Order Comment: No: D o not add to previous draw Performed By: #### 4 1000, , 63205 #### [facility] [address] [place] [address], [place] WBC (Bld) [#/Vol] 6.35 10*3/uL Normal 4.00-10.60 [facility] Comment on above: Order Comment: No: D o not add to previous draw Performed By: #### 4 1000, , 15944 #### [facility] [address] [place] [id number], [facility] POC GLUCOSE LABon 12-25-2021 Glucose [Mass/Vol] 163 mg/dL High 70-100 [facility] Comment on above: Performed By: #### 8 5499 #### [facility] [address] [facility] [place] [address], [facility] Glucose [Mass/Vol] 138 mg/dL High 70-100 [facility] Comment on above: Performed By: #### 4 1000, 79186, 10984 #### [facility] [address] [facility] [place] [address], [facility] Glucose [Mass/Vol] 114 mg/dL High 70-100 [facility] Comment on above: Performed By: #### 8 5499 #### [facility] [address] [facility] [place] [address], [facility] Glucose [Mass/Vol] 112 mg/dL High 70-100 [facility] Comment on above: Performed By: #### 8 5499 #### [facility] [address] [facility] [place] [address], [facility] ABDOMEN 1 on 12-24-2021 ABDOMEN 1 [facility] Department of Radiology [address] [place] [id number] Patient Name: SABI SANTAMARIA : 1945 Sex: F Age: Race: Other Pt. Location: [id number] Patient Status: I Ordered Date: 12/24/2021 5:00:00 [...] obstruction. Electronically signed: Shad Mortensen. Transcribed by: [email or web address], User Resident: Electronically Signed by: SHAD MORTENSEN @ 12/24/2021 10:23 AM Normal [facility] Comment on above: Order Comment: Song alcantara BASIC METABOLIC PANELon 07-0 Calcium [Mass/Vol] 8.2 mg/dL Low 8.6-10.3 [facility] Comment on above: Order Comment: No: D o not add to previous draw Performed By: #### 1 0070, 34141, 76648, 42816 #### [facility] [address] [place] [address], [place] Chloride [Moles/Vol] 100 mmol/L Normal 98-107 [facility] Comment on above: Order Comment: No: D o not add to previous draw Performed By: #### 1 0070, 90835, 37319, 41330 #### [facility] [address] [place] [address], [place] CO2 [Moles/Vol] 22 mmol/L Normal 21-31 [facility] Comment on above: Order Comment: No: D o not add to previous draw Performed By: #### 1 0070, 31455, 32740, 68080 #### [facility] [address] [place] [address], [place] Creatinine [Mass/Vol] 0.52 mg/dL Low 0.60-1.20 [facility] Comment on above: Order Comment: No: D o not add to previous draw Performed By: #### 1 0070, 22315, 68767, 74447 #### [facility] [address] [place] [address], [place] GFR/1.73 sq M.predicted among blacks MDRD (S/P/Bld) [Vol rate/Area] mL/min/{1.73_m2} Normal >60 [facility] Comment on above: Order Comment: No: D o not add to previous draw Result Comment: Calc ulation may not be valid for patients over 70 years Performed By: #### 1 0070, 71464, 76791, 08163 #### [facility] [address] [place] [address], [place] GFR/1.73 sq M.predicted among non-blacks MDRD (S/P/Bld) [Vol rate/Area] mL/min/{1.73_m2} Normal >60 [facility] Comment on above: Order Comment: No: D o not add to previous draw Result Comment: Calc ulation may not be valid for patients over 70 years Performed By: #### 1 0070, 87331, 27721, 23919 #### [facility] [address] [place] [address], [place] Glucose [Mass/Vol] 43 mg/dL Critically low 70-100 [facility] Comment on above: Order Comment: No: D o not add to previous draw Result Comment: M-CR ITICAL RESULT(S) REVIEWED, CALLED TO AND READ BACK BY RAJAT DEVRIES RN @0635 12/24/21 Performed By: #### 1 0070, 06222, 69977, 21557 #### [facility] [address] [place] [address], [facility] Potassium [Moles/Vol] 3.9 mmol/L Normal 3.5-5.1 [facility] Comment on above: Order Comment: No: D o not add to previous draw Performed By: #### 1 0070, 15333, 26154, 46436 #### [facility] [address] [place] [address], [facility] Sodium [Moles/Vol] 135 mmol/L Low 136-145 [facility] Comment on above: Order Comment: No: D o not add to previous draw Performed By: #### 1 0070, 80255, 21315, 10950 #### [facility] [address] [place] [address], [facility] Urea nitrogen [Mass/Vol] 10 mg/dL Normal 7-25 [facility] Comment on above: Order Comment: No: D o not add to previous draw Performed By: #### 1 0070, 27158, 01525, 66182 #### [facility] [address] [place] [id number], [facility] CBC COMPLETE BLOOD COUNTon 0 - Erythrocyte distribution width (RBC) [Ratio] 16.7 % High 11.5-15.0 [facility] Comment on above: Order Comment: No: D o not add to previous draw Performed By: #### 4 999, , 35304 #### [facility] [address] [place] [address], [facility] Hematocrit (Bld) [Volume fraction] 30.8 % Low 36.0-45.0 [facility] Comment on above: Order Comment: No: D o not add to previous draw Performed By: #### 4 999, , 34088 #### [facility] [address] [place] [address], [place] Hemoglobin (Bld) [Mass/Vol] 9.7 g/dL Low 12.0-15.0 [facility] Comment on above: Order Comment: No: D o not add to previous draw Performed By: #### 4 1000, , 18451 #### [facility] [address] [place] [address], [facility] MCH (RBC) [Entitic mass] 27.8 pg Normal 27.0-33.0 [facility] Comment on above: Order Comment: No: D o not add to previous draw Performed By: #### 4 1000, , 21179 #### [facility] [address] [place] [id number], [facility] MCHC (RBC) [Mass/Vol] 31.5 g/dL Low 32.0-35.0 [facility] Comment on above: Order Comment: No: D o not add to previous draw Performed By: #### 4 1000, , 28618 #### [facility] [address] [place] [address], [facility] MCV (RBC) [Entitic vol] 88.3 fL Normal 82.0-98.0 [facility] Comment on above: Order Comment: No: D o not add to previous draw Performed By: #### 4 1000, , 11419 #### [facility] [address] [facility] [facility] [place] [address], [facility] Nucleated RBC/100 WBC (Bld) [Ratio] 0 % Normal 0-0 [facility] Comment on above: Order Comment: No: D o not add to previous draw Performed By: #### 4 1000, , 88926 #### [facility] [address] [place] [id number], [place] PLAT CNT 238 10*3/uL Normal 150-400 [facility] Comment on above: Order Comment: No: D o not add to previous draw Performed By: #### 4 1000, , 26346 #### [facility] [address] [place] [id number], [facility] RBC (Bld) [#/Vol] 3.49 10*6/uL Low 3.80-5.00 [facility] Comment on above: Order Comment: No: D o not add to previous draw Performed By: #### 4 1000, 86576, 90496 #### [facility] [address] [place] [address], [facility] WBC (Bld) [#/Vol] 9.13 10*3/uL Normal 4.00-10.60 [facility] Comment on above: Order Comment: No: D o not add to previous draw Performed By: #### 4 1000, 87138, 63941 #### [facility] [facility] [address] [place] [address], [facility] LIVER BATTERYon 12-24-2021 Albumin [Mass/Vol] 2.9 g/dL Low 3.5-5.7 [facility] Comment on above: Order Comment: No: D o not add to previous draw Performed By: #### 1 0070, 57094, 84518, 82523 #### [facility] [address] [place] [address], [place] ALKALINE PHOSPH 65 IU/L Normal 34-104 [facility] Comment on above: Order Comment: No: D o not add to previous draw Performed By: #### 1 0070, 67266, 46655, 83890 #### [facility] [address] [place] [address], [place] ALT [Catalytic activity/Vol] 8 U/L Normal 7-52 [facility] Comment on above: Order Comment: No: D o not add to previous draw Performed By: #### 1 0070, 09149, 95045, 56608 #### [facility] [address] [place] [address], [place] AST [Catalytic activity/Vol] 19 U/L Normal 13-39 [facility] Comment on above: Order Comment: No: D o not add to previous draw Performed By: #### 1 0070, 50747, 10750, 61270 #### [facility] [address] [place] [address], [place] Bilirubin [Mass/Vol] 0.7 mg/dL Normal 0.3-1.0 [facility] Comment on above: Order Comment: No: D o not add to previous draw Performed By: #### 1 0070, 13900, 35717, 39458 #### [facility] [address] [place] [address], [place] Bilirubin.direct [Mass/Vol] 0.2 mg/dL Normal 0.0-0.2 [facility] Comment on above: Order Comment: No: D o not add to previous draw Performed By: #### 1 0070, 68284, 29104, 64537 #### [facility] [address] [place] [address], [facility] Protein [Mass/Vol] 5.9 g/dL Low 6.0-8.3 [facility] Comment on above: Order Comment: No: D o not add to previous draw Performed By: #### 1 0070, 00543, 03715, 94427 #### [facility] [address] [place] [address], [facility] MAGNESIUM BLOODon 12-24-2021 Magnesium [Mass/Vol] 1.8 mg/dL Low 1.9-2.7 [facility] Comment on above: Order Comment: No: D o not add to previous draw Performed By: #### 1 0070, 00403, 15441, 92203 #### [facility] [address] [place] [address], [place] PHOSPHORUS BLOODon Phosphate [Mass/Vol] 3.1 mg/dL Normal 2.5-5.0 [facility] Comment on above: Order Comment: No: D o not add to previous draw Performed By: #### 1 0070, 96438, 13098, 06337 #### [facility] [address] [place] [address], [place] POC GLUCOSE LABon 12-24-2021 Glucose [Mass/Vol] 101 mg/dL High 70-100 [facility] Comment on above: Performed By: #### 8 5499 #### [facility] [address] [place] [address], [place] Glucose [Mass/Vol] 82 mg/dL Normal 70-100 [facility] Comment on above: Performed By: #### 4 1000, 74809, 09010 #### [facility] [address] [place] [address], [place] Glucose [Mass/Vol] 81 mg/dL Normal 70-100 [facility] Comment on above: Performed By: #### 8 5499 #### [facility] [address] [place] [address], [place] Glucose [Mass/Vol] 59 mg/dL Low 70-100 [facility] Comment on above: Performed By: #### 8 5499 #### [facility] [address] [place] [address], [place] BASIC METABOLIC PANELon 07-0 Calcium [Mass/Vol] 8.0 mg/dL Low 8.6-10.3 [facility] Comment on above: Order Comment: No: D o not add to previous draw Performed By: #### 8 5499 #### [facility] [address] [place] [address], [place] Chloride [Moles/Vol] 102 mmol/L Normal 98-107 [facility] Comment on above: Order Comment: No: D o not add to previous draw Performed By: #### 8 5499 #### [facility] [address] [place] [address], [place] CO2 [Moles/Vol] 26 mmol/L Normal 21-31 [facility] Comment on above: Order Comment: No: D o not add to previous draw Performed By: #### 8 5499 #### [facility] [address] [place] [address], [place] Creatinine [Mass/Vol] 0.58 mg/dL Low 0.60-1.20 [facility] Comment on above: Order Comment: No: D o not add to previous draw Performed By: #### 8 5499 #### [facility] [address] [place] [address], [place] GFR/1.73 sq M.predicted among blacks MDRD (S/P/Bld) [Vol rate/Area] mL/min/{1.73_m2} Normal >60 [facility] Comment on above: Order Comment: No: D o not add to previous draw Result Comment: Calc ulation may not be valid for patients over 70 years Performed By: #### 8 5499 #### [facility] [address] [place] [address], [facility] GFR/1.73 sq M.predicted among non-blacks MDRD (S/P/Bld) [Vol rate/Area] mL/min/{1.73_m2} Normal >60 [facility] Comment on above: Order Comment: No: D o not add to previous draw Result Comment: Calc ulation may not be valid for patients over 70 years Performed By: #### 8 5499 #### [facility] [address] [place] [address], [place] Glucose [Mass/Vol] 78 mg/dL Normal 70-100 [facility] Comment on above: Order Comment: No: D o not add to previous draw Performed By: #### 8 5499 #### [facility] [address] [place] [address], [place] Potassium [Moles/Vol] 3.6 mmol/L Normal 3.5-5.1 [facility] Comment on above: Order Comment: No: D o not add to previous draw Performed By: #### 8 5499 #### [facility] [address] [place] [address], [place] Sodium [Moles/Vol] 134 mmol/L Low 136-145 [facility] Comment on above: Order Comment: No: D o not add to previous draw Performed By: #### 8 5499 #### [facility] [address] [place] [address], [facility] Urea nitrogen [Mass/Vol] 14 mg/dL Normal 7-25 [facility] Comment on above: Order Comment: No: D o not add to previous draw Performed By: #### 8 5499 #### [facility] [address] CBC COMPLETE BLOOD COUNTon 0 12-23-2021 Erythrocyte distribution width (RBC) [Ratio] 17.1 % High 11.5-15.0 [facility] Comment on above: Order Comment: No: D o not add to previous draw Performed By: #### 4 1000, , 22447 #### [facility] [address] Hematocrit (Bld) [Volume fraction] 28.4 % Low 36.0-45.0 [facility] Comment on above: Order Comment: No: D o not add to previous draw Performed By: #### 4 1000, , 07427 #### [facility] [address] [place] [address], [facility] Hemoglobin (Bld) [Mass/Vol] 9.3 g/dL Low 12.0-15.0 [facility] Comment on above: Order Comment: No: D o not add to previous draw Performed By: #### 4 1000, , 44816 #### [facility] [address] [place] [address], [place] MCH (RBC) [Entitic mass] 28.2 pg Normal 27.0-33.0 [facility] Comment on above: Order Comment: No: D o not add to previous draw Performed By: #### 4 1000, , 97584 #### [facility] [address] [place] [id number], [facility] MCHC (RBC) [Mass/Vol] 32.7 g/dL Normal 32.0-35.0 [facility] Comment on above: Order Comment: No: D o not add to previous draw Performed By: #### 4 1000, , 93921 #### [facility] [address] [place] [address], [facility] MCV (RBC) [Entitic vol] 86.1 fL Normal 82.0-98.0 [facility] Comment on above: Order Comment: No: D o not add to previous draw Performed By: #### 4 1000, , 14824 #### [facility] [address] [place] [address], [facility] Nucleated RBC/100 WBC (Bld) [Ratio] 0 % Normal 0-0 [facility] Comment on above: Order Comment: No: D o not add to previous draw Performed By: #### 4 1000, , 19330 #### [facility] [address] [place] [address], [facility] PLAT CNT 193 10*3/uL Normal 150-400 [facility] Comment on above: Order Comment: No: D o not add to previous draw Performed By: #### 4 1000, , 32225 #### [facility] [address] [place] [address], [facility] RBC (Bld) [#/Vol] 3.30 10*6/uL Low 3.80-5.00 [facility] Comment on above: Order Comment: No: D o not add to previous draw Performed By: #### 4 1000, , 30339 #### [facility] [address] [place] [address], [place] WBC (Bld) [#/Vol] 9.87 10*3/uL Normal 4.00-10.60 [facility] Comment on above: Order Comment: No: D o not add to previous draw Performed By: #### 4 1000, , 23479 #### [facility] ABDOMEN AND PELVIS W IV A ND ORAL CONTRASTon 12-23-2021 CT ABDOMEN AND PELVIS W IV AND ORAL CONTRAST [facility] Department of Radiology [address] [place] [id number] Patient Name: SABI SANTAMARIA : 1945 Sex: F Age: Race: Other Pt. Location: [id number] Patient Status: I Ordered Date: 12/23/2021 9:05:00 [...] anasarca. Electronically signed: Saundra Hyde. Transcribed by: [email or web address], User Resident: Electronically Signed by: SAUNDRA HYDE @ 12/23/2021 12:49 PM Normal [facility] Comment on above: Order Comment: No: D o not add to previous draw MAGNESIUM BLOODon 12-23-2021 Magnesium [Mass/Vol] 2.0 mg/dL Normal 1.9-2.7 [facility] Comment on above: Order Comment: No: D o not add to previous draw Performed By: #### 8 5499 #### [facility] [address] [place] [address], [facility] PHOSPHORUS BLOODon Phosphate [Mass/Vol] 2.9 mg/dL Normal 2.5-5.0 [facility] Comment on above: Order Comment: No: D o not add to previous draw Performed By: #### 8 5499 #### [facility] [address] [place] [address], [place] BASIC METABOLIC PANELon 07-0 -2021 Calcium [Mass/Vol] 8.2 mg/dL Low 8.6-10.3 [facility] Comment on above: Order Comment: No: D o not add to previous draw Performed By: #### 8 5499 #### [facility] [address] [place] [address], [place] Chloride [Moles/Vol] 102 mmol/L Normal 98-107 [facility] Comment on above: Order Comment: No: D o not add to previous draw Performed By: #### 8 5499 #### [facility] [address] [place] [address], [place] CO2 [Moles/Vol] 25 mmol/L Normal 21-31 [facility] Comment on above: Order Comment: No: D o not add to previous draw Performed By: #### 8 5499 #### [facility] [address] [place] [address], [place] Creatinine [Mass/Vol] 0.65 mg/dL Normal 0.60-1.20 [facility] Comment on above: Order Comment: No: D o not add to previous draw Performed By: #### 8 5499 #### [facility] [address] [place] [address], [place] GFR/1.73 sq M.predicted among blacks MDRD (S/P/Bld) [Vol rate/Area] mL/min/{1.73_m2} Normal >60 [facility] Comment on above: Order Comment: No: D o not add to previous draw Result Comment: Calc ulation may not be valid for patients over 70 years Performed By: #### 8 5499 #### [facility] [address] [place] [address], [facility] GFR/1.73 sq M.predicted among non-blacks MDRD (S/P/Bld) [Vol rate/Area] mL/min/{1.73_m2} Normal >60 [facility] Comment on above: Order Comment: No: D o not add to previous draw Result Comment: Calc ulation may not be valid for patients over 70 years Performed By: #### 8 5499 #### [facility] [address] [place] [address], [facility] Glucose [Mass/Vol] 124 mg/dL High 70-100 [facility] Comment on above: Order Comment: No: D o not add to previous draw Performed By: #### 8 5499 #### [facility] [address] [place] [address], [facility] Potassium [Moles/Vol] 3.5 mmol/L Normal 3.5-5.1 [facility] Comment on above: Order Comment: No: D o not add to previous draw Performed By: #### 8 5499 #### [facility] [address] [place] [address], [facility] Sodium [Moles/Vol] 135 mmol/L Low 136-145 [facility] Comment on above: Order Comment: No: D o not add to previous draw Performed By: #### 8 5499 #### [facility] [address] [place] [address], [facility] Urea nitrogen [Mass/Vol] 19 mg/dL Normal 7-25 [facility] Comment on above: Order Comment: No: D o not add to previous draw Performed By: #### 8 5499 #### [facility] [address] [place] [address], [facility] CBC COMPLETE BLOOD COUNTon 0 - Erythrocyte distribution width (RBC) [Ratio] 16.7 % High 11.5-15.0 [facility] Comment on above: Order Comment: No: D o not add to previous draw Performed By: #### 4 1000, , 17350 #### [facility] [address] [place] [address], [facility] Hematocrit (Bld) [Volume fraction] 31.8 % Low 36.0-45.0 [facility] Comment on above: Order Comment: No: D o not add to previous draw Performed By: #### 4 1000, , 80099 #### [facility] [address] [place] [id number], [facility] Hemoglobin (Bld) [Mass/Vol] 10.2 g/dL Low 12.0-15.0 [facility] Comment on above: Order Comment: No: D o not add to previous draw Performed By: #### 4 1000, , #### [facility] [address] [place] [address], [facility] MCH (RBC) [Entitic mass] 27.8 pg Normal 27.0-33.0 [facility] Comment on above: Order Comment: No: D o not add to previous draw Performed By: #### 4 999, , 17276 #### [facility] [address] [place] [address], [facility] MCHC (RBC) [Mass/Vol] 32.1 g/dL Normal 32.0-35.0 [facility] Comment on above: Order Comment: No: D o not add to previous draw Performed By: #### 4 1000, , 68683 #### [facility] [address] [place] [id number], [facility] MCV (RBC) [Entitic vol] 86.6 fL Normal 82.0-98.0 [facility] Comment on above: Order Comment: No: D o not add to previous draw Performed By: #### 4 1000, , 30505 #### [facility] [address] [place] [id number], [facility] Nucleated RBC/100 WBC (Bld) [Ratio] 0 % Normal 0-0 [facility] Comment on above: Order Comment: No: D o not add to previous draw Performed By: #### 4 1000, 61625, 54391 #### [facility] [address] [place] [address], [facility] PLAT CNT 224 10*3/uL Normal 150-400 [facility] Comment on above: Order Comment: No: D o not add to previous draw Performed By: #### 4 1000, 31008, 89797 #### [facility] [address] [place] [address], [facility] RBC (Bld) [#/Vol] 3.67 10*6/uL Low 3.80-5.00 [facility] Comment on above: Order Comment: No: D o not add to previous draw Performed By: #### 4 1000, 21843, 55459 #### [facility] [address] [place] [address], [facility] WBC (Bld) [#/Vol] 10.68 10*3/uL High 4.00-10.60 [facility] Comment on above: Order Comment: No: D o not add to previous draw Performed By: #### 4 1000, 03010, 11703 #### [facility] [address] [place] [address], [facility] MAGNESIUM BLOODon 12-22-2021 Magnesium [Mass/Vol] 1.8 mg/dL Low 1.9-2.7 [facility] Comment on above: Order Comment: No: D o not add to previous draw Performed By: #### 8 4349 #### [facility] [address] [place] [address], [facility] PHOSPHORUS BLOODon 2 Phosphate [Mass/Vol] 3.2 mg/dL Normal 2.5-5.0 [facility] Comment on above: Order Comment: No: D o not add to previous draw Performed By: #### 8 0059 #### [facility] [address] *URINE CULTUREon 12-21-2021 *URINE CULTURE Clinical Report: (D) Specimen/Source: URINE/CLEAN VOID URINE Collected: 12/21/2021 18:00 Status: Final Last Updated: 12/23/2021 08:30 ISO (Final) Citrobacter koseri >100,000 Cfu/Ml ISOLATE: Citrobacter koseri MAHENDRA (mcg/ml) AMP./SULBAC (AMS) 4/2 Susceptible AMPICILLIN (AM) >16 Resistant AZTREONAM (AZM) <=2 Susceptible CEFAZOLIN (CZ) <=1 Susceptible CEFTRIAXONE (DIANETICIST) <=1 Susceptible CIPROFLOXACIN (CIP) <=0.25 Susceptible GENTAMICIN (GM) <=2 Susceptible NITROFURANTOIN (FT) 64 Intermediate PIP/TAZO (TZP) 4/4 Susceptible TOBRAMYCIN (TOB) <=2 Susceptible TRIMETH/SULFA (SXT) <=0.5/9.5 Susceptible Normal [facility] Comment on above: Performed By: #### 8 5499 #### [facility] [address] BASIC METABOLIC PANELon Calcium [Mass/Vol] 8.8 mg/dL Normal 8.6-10.3 [facility] Comment on above: Order Comment: No: D o not add to previous draw Performed By: #### 4 999, 15567, 91099 #### [facility] [address] [place] [address], [facility] Chloride [Moles/Vol] 102 mmol/L Normal 98-107 [facility] Comment on above: Order Comment: No: D o not add to previous draw Performed By: #### 4 1000, 20283, 45060 #### [facility] [address] [place] [address], [facility] CO2 [Moles/Vol] 26 mmol/L Normal 21-31 [facility] Comment on above: Order Comment: No: D o not add to previous draw Performed By: #### 4 1000, , 58735 #### [facility] [address] [place] [address], [place] Creatinine [Mass/Vol] 0.57 mg/dL Low 0.60-1.20 [facility] Comment on above: Order Comment: No: D o not add to previous draw Performed By: #### 4 1000, , 47910 #### [facility] [address] [place] [address], [facility] GFR/1.73 sq M.predicted among blacks MDRD (S/P/Bld) [Vol rate/Area] mL/min/{1.73_m2} Normal >60 [facility] Comment on above: Order Comment: No: D o not add to previous draw Result Comment: Calc ulation may not be valid for patients over 70 years Performed By: #### 4 999, , 45427 #### [facility] [address] [place] [id number], [facility] GFR/1.73 sq M.predicted among non-blacks MDRD (S/P/Bld) [Vol rate/Area] mL/min/{1.73_m2} Normal >60 [facility] Comment on above: Order Comment: No: D o not add to previous draw Result Comment: Calc ulation may not be valid for patients over 70 years Performed By: #### 4 999, , 62757 #### [facility] [address] [place] [address], [place] Glucose [Mass/Vol] 124 mg/dL High 70-100 [facility] Comment on above: Order Comment: No: D o not add to previous draw Performed By: #### 4 1000, , 69375 #### [facility] [address] [place] [address], [place] Potassium [Moles/Vol] 4.3 mmol/L Normal 3.5-5.1 [facility] Comment on above: Order Comment: No: D o not add to previous draw Performed By: #### 4 1000, , 94084 #### [facility] [address] [place] [id number], [facility] Sodium [Moles/Vol] 135 mmol/L Low 136-145 [facility] Comment on above: Order Comment: No: D o not add to previous draw Performed By: #### 4 1000, , 60287 #### [facility] [address] [place] [id number], [facility] Urea nitrogen [Mass/Vol] 15 mg/dL Normal 7-25 [facility] Comment on above: Order Comment: No: D o not add to previous draw Performed By: #### 4 1000, , 55844 #### [facility] [address] CBC COMPLETE BLOOD COUNTon 0 12-21-2021 Erythrocyte distribution width (RBC) [Ratio] 16.6 % High 11.5-15.0 [facility] Comment on above: Order Comment: No: D o not add to previous draw Performed By: #### 4 1000, , 25906 #### [facility] [address] [place] [address], [facility] Hematocrit (Bld) [Volume fraction] 38.0 % Normal 36.0-45.0 [facility] Comment on above: Order Comment: No: D o not add to previous draw Performed By: #### 4 1000, , 45691 #### [facility] [address] [place] [id number], [facility] Hemoglobin (Bld) [Mass/Vol] 12.1 g/dL Normal 12.0-15.0 [facility] Comment on above: Order Comment: No: D o not add to previous draw Performed By: #### 4 1000, , 67170 #### [facility] [address] [place] [address], [facility] MCH (RBC) [Entitic mass] 27.5 pg Normal 27.0-33.0 [facility] Comment on above: Order Comment: No: D o not add to previous draw Performed By: #### 4 1000, , 02228 #### [facility] [address] [facility] [place] [place] [address], [facility] MCHC (RBC) [Mass/Vol] 31.8 g/dL Low 32.0-35.0 [facility] Comment on above: Order Comment: No: D o not add to previous draw Performed By: #### 4 1000, , 48284 #### [facility] [address] [place] [address], [facility] MCV (RBC) [Entitic vol] 86.4 fL Normal 82.0-98.0 [facility] Comment on above: Order Comment: No: D o not add to previous draw Performed By: #### 4 1000, , #### [facility] [address] [facility] [place] [place] [address], [facility] Nucleated RBC/100 WBC (Bld) [Ratio] 0 % Normal 0-0 [facility] Comment on above: Order Comment: No: D o not add to previous draw Performed By: #### 4 1000, , 83734 #### [facility] [address] [facility] [place] [address], [facility] PLAT CNT 289 10*3/uL Normal 150-400 [facility] Comment on above: Order Comment: No: D o not add to previous draw Performed By: #### 4 1000, , 29182 #### [facility] [address] [facility] [place] [id number], [facility] RBC (Bld) [#/Vol] 4.40 10*6/uL Normal 3.80-5.00 [facility] Comment on above: Order Comment: No: D o not add to previous draw Performed By: #### 4 1000, , 44597 #### [facility] [address] [place] [id number], [place] WBC (Bld) [#/Vol] 9.11 10*3/uL Normal 4.00-10.60 [facility] Comment on above: Order Comment: No: D o not add to previous draw Performed By: #### 4 1000, 65675, 40263 #### [facility] [address] [place] [address], [facility] MAGNESIUM BLOODon 12-21-2021 Magnesium [Mass/Vol] 1.8 mg/dL Low 1.9-2.7 [facility] Comment on above: Order Comment: No: D o not add to previous draw Performed By: #### 4 1000, 17366, 77855 #### [facility] [address] [place] [address], [facility] PHOSPHORUS BLOODon Phosphate [Mass/Vol] 3.7 mg/dL Normal 2.5-5.0 [facility] Comment on above: Order Comment: No: D o not add to previous draw Performed By: #### 4 1000, [id number] #### [facility] [address] [place] [address], [facility] POC GLUCOSE LABon 12-21-2021 Glucose [Mass/Vol] 124 mg/dL High 70-100 [facility] Comment on above: Performed By: #### 4 1000, [id number], [id number] #### [facility] [address] [place] [address], [facility] URINALYSIS REFLEXon 12-22-19 22 Appearance (U) CLOUDY Abnormal CLEAR [facility] Comment on above: Order Comment: No: D o not add to previous drawCriteria for reflexing a culture was met. Urine Culture and sensitivitywill be performed. Performed By: #### [id number] #### [facility] [address] [place] [address], [facility] Bilirubin Ql (U) Negative Normal NEGATIVE [facility] Comment on above: Order Comment: No: D o not add to previous drawCriteria for reflexing a culture was met. Urine Culture and sensitivitywill be performed. Performed By: #### [id number] #### [facility] [address] [place] [address], [place] Color (U) YELLOW Normal YELLOW [facility] Comment on above: Order Comment: No: D o not add to previous drawCriteria for reflexing a culture was met. Urine Culture and sensitivitywill be performed. Performed By: #### [id number] #### [facility] [address] [place] [address], [place] EPIS OCC Normal FEW,OCC,NO NE SEEN [facility] Comment on above: Order Comment: No: D o not add to previous drawCriteria for reflexing a culture was met. Urine Culture and sensitivitywill be performed. Performed By: #### [id number] #### [facility] [address] [place] [address], [place] Glucose Ql (U) Negative Normal NEGATIVE [facility] Comment on above: Order Comment: No: D o not add to previous drawCriteria for reflexing a culture was met. Urine Culture and sensitivitywill be performed. Performed By: #### [id number] #### [facility] [address] [place] [address], [place] Hemoglobin Ql (U) Negative Normal NEGATIVE [facility] Comment on above: Order Comment: No: D o not add to previous drawCriteria for reflexing a culture was met. Urine Culture and sensitivitywill be performed. Performed By: #### [id number] #### [facility] [address] [place] [address], [place] KETONE Negative Normal NEGATIVE [facility] Comment on above: Order Comment: No: D o not add to previous drawCriteria for reflexing a culture was met. Urine Culture and sensitivitywill be performed. Performed By: #### [id number] #### [facility] [address] [place] [address], [place] LEUK MICHELE LARGE Abnormal NEGATIVE [facility] Comment on above: Order Comment: No: D o not add to previous drawCriteria for reflexing a culture was met. Urine Culture and sensitivitywill be performed. Performed By: #### [id number] #### [facility] [address] [place] [address], [facility] MUCUS THREADS OCC Abnormal NONE SEEN [facility] Comment on above: Order Comment: No: D o not add to previous drawCriteria for reflexing a culture was met. Urine Culture and sensitivitywill be performed. Performed By: #### [id number] #### [facility] [address] [place] [address], [facility] Nitrite Ql (U) Positive Abnormal NEGATIVE [facility] Comment on above: Order Comment: No: D o not add to previous drawCriteria for reflexing a culture was met. Urine Culture and sensitivitywill be performed. Performed By: #### [id number] #### [facility] [address] [facility] pH (U) 5.0 [pH] Normal 5.0-8.0 [facility] Comment on above: Order Comment: No: D o not add to previous drawCriteria for reflexing a culture was met. Urine Culture and sensitivitywill be performed. Performed By: #### [id number] #### [facility] [address] [place] [address], [facility] Protein Ql (U) 30 mg/dL Abnormal NEGATIVE [facility] Comment on above: Order Comment: No: D o not add to previous drawCriteria for reflexing a culture was met. Urine Culture and sensitivitywill be performed. Performed By: #### [id number] #### [facility] [address] [facility] [place] [address], [facility] RBC NONE SEEN Normal NONE SEEN [facility] Comment on above: Order Comment: No: D o not add to previous drawCriteria for reflexing a culture was met. Urine Culture and sensitivitywill be performed. Performed By: #### [id number] #### [facility] [address] [facility] [place] [address], [facility] SPEC GRAV 1.025 High 1.015-1.02 0 [facility] Comment on above: Order Comment: No: D o not add to previous drawCriteria for reflexing a culture was met. Urine Culture and sensitivitywill be performed. Performed By: #### [id number] #### [facility] [address] [facility] [place] [address], [facility] WBC UA >100 Abnormal NONE SEEN [facility] Comment on above: Order Comment: No: D o not add to previous drawCriteria for reflexing a culture was met. Urine Culture and sensitivitywill be performed. Performed By: #### [id number] #### [facility] [address] [facility] [place] [address], [facility] AMYLASEon 12-20-2021 Amylase [Catalytic activity/Vol] 47 U/L Normal 25-115 [facility] Comment on above: Performed By: #### A MY LIPA, CMP #### [facility] [address] [place] [address] Dr. Sung Moore CBC AUTO DIFFon 12-20-2021 BASO # 0.0 103/ul Normal 0.0-0.1 [facility] Comment on above: Performed By: #### A MY LIPA, CMP #### [facility] [address] [address] [address] Sung Moore Basophils/100 WBC (Bld) 0.1 % Critically low 0.2-2.0 [facility] Comment on above: Performed By: #### A MY LIPA, CMP #### [facility] [address] [address] [address] Sung Moore EO # 0.1 103/ul Normal 0.0-0.7 [facility] Comment on above: Performed By: #### A MY LIPA, CMP #### [facility] [address] [address] [address] Sung Moore Eosinophils/100 WBC (Bld) 0.5 % Critically low 0.9-7.0 [facility] Comment on above: Performed By: #### A CHILO ESTRADA, CMP #### [facility] [address] [place] [address] Dr. Sung Moore Erythrocyte distribution width (RBC) [Ratio] 16.4 % Critically high 11.0-15.0 [facility] Comment on above: Performed By: #### A CHILO ESTRADA, CMP #### [facility] [address] [place] [address] Dr. Sung Moore Hematocrit (Bld) [Volume fraction] 41.8 % Normal 36.0-48.0 [facility] Comment on above: Performed By: #### A CHILO ESTRADA, CMP #### [facility] [address] [place] [address] Dr. Sung Moore Hemoglobin (Bld) [Mass/Vol] 13.2 g/dL Normal 12.0-16.0 [facility] Comment on above: Performed By: #### A CHILO ESTRADA, CMP #### [facility] [address] [place] [address] Dr. Sung Moore IG # 0.07 10e3/ul Critically high 0.00-0.[address] [facility] Comment on above: Performed By: #### A CHILO ESTRADA, CMP #### [facility] [address] [place] [address] Dr. Sung Moore IG % 0.5 % Normal 0.0-0.5 [facility] Comment on above: Performed By: #### A CHILO ESTRADA, CMP #### [facility] [address] [place] [address] Dr. Sung Moore LYMPH # 1.4 103/ul Normal 1.2-3.8 [facility] Comment on above: Performed By: #### A CHILO ESTRADA, CMP #### [facility] [address] [place] [address] Dr. Sung Moore Lymphocytes/100 WBC (Bld) 9.7 % Critically low 20.5-60.0 [facility] Comment on above: Performed By: #### A CHILO ESTRADA, CMP #### [facility] [address] [address] [address] Sung Moore MANUAL DIFF REQ NO Normal [facility] Comment on above: Performed By: #### A MY, LIPA, CMP #### [facility] [address] [address] [address] Sung Moore MCH (RBC) [Entitic mass] 27.4 pg Normal 26.7-34.0 [facility] Comment on above: Performed By: #### A MY, LIPA, CMP #### [facility] [address] [place] [address] Dr. Sung Moore MCHC (RBC) [Mass/Vol] 31.6 g/dL Normal 29.9-35.2 [facility] Comment on above: Performed By: #### A MY, LIPA, CMP #### [facility] [address] [place] [address] Dr. Sung Moore MCV (RBC) [Entitic vol] 86.9 fL Normal 81.0-99.0 [facility] Comment on above: Performed By: #### A MY, LIPA, CMP #### [facility] [address] [place] [address] Dr. Sung Moore MONO # 0.7 103/ul Normal 0.3-0.8 [facility] Comment on above: Performed By: #### A MY, LIPA, CMP #### [facility] [address] [place] [address] Dr. Sung Moore Monocytes/100 WBC (Bld) 5.3 % Normal 1.7-12.0 [facility] Comment on above: Performed By: #### A MY, LIPA, CMP #### [facility] [address] [place] [address] Dr. Sung Moore NEUT # 11.8 103/ul Critically high 1.4-6.5 [facility] Comment on above: Performed By: #### A MY, LIPA, CMP #### [facility] [address] [place] [address] Dr. Sung Moore Neutrophils/100 WBC (Bld) 83.9 % Critically high 43.0-75.0 [facility] Comment on above: Performed By: #### A CHILO ESTRADA, CMP #### [facility] [address] [place] [address] Dr. Sung Moore Platelet mean volume (Bld) [Entitic vol] 9.9 fL Normal 9.5-13.5 [facility] Comment on above: Performed By: #### A CHILO ESTRADA, CMP #### [facility] [address] [address] [address] Sung Moore PLT 335 103/ul Normal 150-450 [facility] Comment on above: Performed By: #### A CHILO ESTRADA, CMP #### [facility] [address] [place] [address] Dr. Sung Moore RBC 4.81 106/ul Normal 4.20-5.40 [facility] Comment on above: Performed By: #### CHILO MCCLENDON, CMP #### [facility] [address] [place] [address] Dr. Sung Moore WBC 14.1 103/ul Critically high 4.0-11.0 [facility] Comment on above: Performed By: #### A CHILO ESTRADA, CMP #### [facility] [address] [place] [address] ABD/PELV W CONon [...] DION SNOWDEN Date: 2021-12-20 13:12 Normal [facility] SARS-CoV-2 (COVID-19) RNA ROMY+probe Ql (Unsp spec) Not detected Normal NOT DETECTED The [facility] Comment on above: Result Comment: When diagnostic [...] for this test is supported by the Certified Personal Trainer of Health and Human Service's declaration that [...] used). Performed By: #### L ACT #### [facility] [address] [place] [address] Dr. Sung Moore LIPASEon 12-20-2021 Lipase [Catalytic activity/Vol] 93.0 U/L Normal 73.0-393.0 [facility] Comment on above: Performed By: #### A MY, LIPA, CMP #### [facility] [address] [place] [address] Dr. Sung Moore PROF 14(COMP METB)on 022 Albumin [Mass/Vol] 3.6 g/dL Normal 3.4-5.0 [facility] Comment on above: Performed By: #### A MY, LIPA, CMP #### [facility] [address] [place] [address] Dr. Sung Moore Albumin/Globulin [Mass ratio] 0.7 {ratio} Normal [facility] Comment on above: Performed By: #### A MY, LIPA, CMP #### [facility] [address] [place] [address] Dr. Sung Moore ALP [Catalytic activity/Vol] 128 U/L Critically high 46-116 [facility] Comment on above: Performed By: #### A MY, LIPA, CMP #### [facility] [address] [place] [address] Dr. Sung Moore ALT [Catalytic activity/Vol] 20 U/L Normal 14-59 [facility] Comment on above: Performed By: #### A MY, LIPA, CMP #### [facility] [address] [place] [address] Dr. Sung Moore Anion gap [Moles/Vol] 11.7 mmol/L Normal [facility] Comment on above: Performed By: #### A MY, LIPA, CMP #### [facility] [address] [place] [address] Dr. Sung Moore AST [Catalytic activity/Vol] 22 U/L Normal 15-37 [facility] Comment on above: Performed By: #### A MY, LIPA, CMP #### [facility] [address] [place] [address] Dr. Sung Moore Bilirubin [Mass/Vol] 0.8 mg/dL Normal 0.2-1.0 [facility] Comment on above: Performed By: #### A MY, LIPA, CMP #### [facility] [address] [place] [address] Dr. Sung Moore Calcium [Mass/Vol] 9.8 mg/dL Normal 8.5-10.1 [facility] Comment on above: Performed By: #### A MY, LIPA, CMP #### [facility] [address] [place] [address] Dr. Sung Moore Chloride [Moles/Vol] 99 mmol/L Normal 98-107 [facility] Comment on above: Performed By: #### A MY, LIPA, CMP #### [facility] [address] [place] [address] Dr. Sung Moore CO2 [Moles/Vol] 26.6 mmol/L Normal 21.0-32.0 [facility] Comment on above: Performed By: #### A MY, LIPA, CMP #### [facility] [address] [place] [address] Dr. Sung Moore Creatinine [Mass/Vol] 0.82 mg/dL Normal 0.55-1.02 [facility] Comment on above: Performed By: #### A MY, LIPA, CMP #### [facility] [address] [place] [address] Dr. Sung Moore EGFR-AF IVORIAN >60 Normal >=60 [facility] Comment on above: Performed By: #### A MY, LIPA, CMP #### [facility] [address] [place] [address] Dr. Sung Moore EGFR-NON AF IVORIAN >60 Normal >=60 [facility] Comment on above: Performed By: #### A SEAN LIPA, CMP #### [facility] [address] [place] [address] Dr. Sung Moore Globulin (S) [Mass/Vol] 5.0 g/dL Normal [facility] Comment on above: Performed By: #### A MY LIPA, CMP #### [facility] [address] [place] [address] Dr. Sung Moore Glucose [Mass/Vol] 188 mg/dL Critically high 74-106 [facility] Comment on above: Performed By: #### A SEAN LIPA, CMP #### [facility] [address] [place] [address] Dr. Sung Moore Potassium [Moles/Vol] 4.3 mmol/L Normal 3.5-5.1 [facility] Comment on above: Performed By: #### A SEAN LIPA, CMP #### [facility] [address] [place] [address] Dr. Sung Moore Protein [Mass/Vol] 8.6 g/dL Critically high 6.4-8.2 [facility] Comment on above: Performed By: #### A SEAN LIPA, CMP #### [facility] [address] [place] [address] Dr. Sung Moore Sodium [Moles/Vol] 133 mmol/L Critically low 136-145 [facility] Comment on above: Performed By: #### A SEAN LIPA, CMP #### [facility] [address] [place] [address] Dr. Sung Moore Urea nitrogen [Mass/Vol] 15.0 mg/dL Normal 7.0-18.0 [facility] Comment on above: Performed By: #### A MY LIPA, CMP #### [facility] [address] [place] [address] Dr. Sung Moore Urea nitrogen/Creatinine [Mass ratio] 18.3 mg/mg Normal [facility] Comment on above: Performed By: #### A SEAN LIPA, CMP #### [facility] [address] [address] [address] Sung Moore XR KUB 1 VIEWon [...] DION SNOWDEN Date: 2021-12-20 14:16 Normal The [facility] BNPon 11-13-2021 Natriuretic peptide B (Bld) [Mass/Vol] 3120.0 pg/mL Critically high <=1,800.0 [facility] Comment on above: Performed By: #### C MP, BNP #### [facility] [address] [place] [address] Dr. Sung Moore CBC AUTO DIFFon 11-13-2021 BASO # 0.0 103/ul Normal 0.0-0.1 [facility] Comment on above: Performed By: #### C RP, CMP #### [facility] [address] [address] [address] Sung Moore Basophils/100 WBC (Bld) 0.1 % Critically low 0.2-2.0 [facility] Comment on above: Performed By: #### C RP, CMP #### [facility] [address] [address] [address] Sung Moore EO # 0.0 103/ul Normal 0.0-0.7 [facility] Comment on above: Performed By: #### C RP, CMP #### [facility] [address] [address] [address] Sung Moore Eosinophils/100 WBC (Bld) 0.0 % Critically low 0.9-7.0 [facility] Comment on above: Performed By: #### C RP, CMP #### [facility] [address] [place] [address] Dr. Sung Moore Erythrocyte distribution width (RBC) [Ratio] 15.8 % Critically high 11.0-15.0 [facility] Comment on above: Performed By: #### C RP, CMP #### [facility] [address] [place] [address] Dr. Sung Moore Hematocrit (Bld) [Volume fraction] 27.5 % Critically low 36.0-48.0 [facility] Comment on above: Performed By: #### C RP, CMP #### [facility] [address] [place] [address] Dr. Sung Moore Hemoglobin (Bld) [Mass/Vol] 8.6 g/dL Critically low 12.0-16.0 [facility] Comment on above: Performed By: #### C RP, CMP #### [facility] [address] [place] [address] Dr. Sung Moore IG # 0.10 10e3/ul Critically high 0.00-0.[address] [facility] Comment on above: Performed By: #### C RP, CMP #### [facility] [address] [place] [address] Dr. Sung Moore IG % 0.7 % Critically high 0.0-0.5 [facility] Comment on above: Performed By: #### C RP, CMP #### [facility] [address] [place] [address] Dr. Sung Moore LYMPH # 1.2 103/ul Normal 1.2-3.8 [facility] Comment on above: Performed By: #### C RP, CMP #### [facility] [address] [place] [address] Dr. Sung Moore Lymphocytes/100 WBC (Bld) 9.3 % Critically low 20.5-60.0 [facility] Comment on above: Performed By: #### C RP, CMP #### [facility] [address] [place] [address] Dr. Sung Moore MANUAL DIFF REQ NO Normal [facility] Comment on above: Performed By: #### C RP, CMP #### [facility] [address] [place] [address] Dr. Sung Moore MCH (RBC) [Entitic mass] 27.4 pg Normal 26.7-34.0 [facility] Comment on above: Performed By: #### C RP, CMP #### [facility] [address] [place] [address] Dr. Sung Moore MCHC (RBC) [Mass/Vol] 31.3 g/dL Normal 29.9-35.2 [facility] Comment on above: Performed By: #### C RP, CMP #### [facility] [address] [place] [address] Dr. Sung Moore MCV (RBC) [Entitic vol] 87.6 fL Normal 81.0-99.0 [facility] Comment on above: Performed By: #### C RP, CMP #### [facility] [address] [place] [address] Dr. Sung Moore MONO # 0.2 103/ul Critically low 0.3-0.8 [facility] Comment on above: Performed By: #### C RP, CMP #### [facility] [address] [place] [address] Dr. Sung oMore Monocytes/100 WBC (Bld) 1.6 % Critically low 1.7-12.0 [facility] Comment on above: Performed By: #### C RP, CMP #### [facility] [address] [place] [address] Dr. Sung Moore NEUT # 11.8 103/ul Critically high 1.4-6.5 [facility] Comment on above: Performed By: #### C RP, CMP #### [facility] [address] [place] [address] Dr. Sung Moore Neutrophils/100 WBC (Bld) 88.3 % Critically high 43.0-75.0 [facility] Comment on above: Performed By: #### C RP, CMP #### [facility] [address] [place] [address] Dr. Sung Moore Platelet mean volume (Bld) [Entitic vol] 9.5 fL Normal 9.5-13.5 [facility] Comment on above: Performed By: #### C RP, CMP #### [facility] [address] [address] [address] Sung Moore PLT 239 103/ul Normal 150-450 [facility] Comment on above: Performed By: #### C RP, CMP #### [facility] [address] [address] [address] Sung Moore RBC 3.14 106/ul Critically low 4.20-5.40 [facility] Comment on above: Performed By: #### C RP, CMP #### [facility] [address] [address] [address] Sung Moore WBC 13.4 103/ul Critically high 4.0-11.0 [facility] Comment on above: Performed By: #### C RP, CMP #### [facility] [address] [place] [address] Dr. Sung Moore PROF 14(COMP METB)on 022 Albumin [Mass/Vol] 2.4 g/dL Critically low 3.4-5.0 [facility] Comment on above: Performed By: #### C MP, BNP #### [facility] Laboratory [address] [place] [address] Dr. Sung Moore Albumin/Globulin [Mass ratio] 0.6 {ratio} Normal [facility] Comment on above: Performed By: #### C MP, BNP #### [facility] Laboratory [address] [place] [address] Dr. Sung Moore ALP [Catalytic activity/Vol] 68 U/L Normal 46-116 [facility] Comment on above: Performed By: #### C MP, BNP #### [facility] Laboratory [address] [place] [address] Dr. Sung Moore ALT [Catalytic activity/Vol] 21 U/L Normal 14-59 [facility] Comment on above: Performed By: #### C MP, BNP #### [facility] Laboratory [address] [place] [address] Dr. Sung Moore Anion gap [Moles/Vol] 14.9 mmol/L Normal [facility] Comment on above: Performed By: #### C MP, BNP #### [facility] Laboratory [address] [address] [address] Sung Moore AST [Catalytic activity/Vol] 22 U/L Normal 15-37 [facility] Comment on above: Performed By: #### C MP, BNP #### [facility] Laboratory [address] [place] [address] Dr. Sung Moore Bilirubin [Mass/Vol] 0.2 mg/dL Normal 0.2-1.0 [facility] Comment on above: Performed By: #### C MP, BNP #### [facility] Laboratory [address] [place] [address] Dr. Sung Moore Calcium [Mass/Vol] 8.6 mg/dL Normal 8.5-10.1 [facility] Comment on above: Performed By: #### C MP, BNP #### [facility] Laboratory [address] [place] [address] Dr. Sung Moore Chloride [Moles/Vol] 108 mmol/L Critically high 98-107 [facility] Comment on above: Performed By: #### C MP, BNP #### [facility] Laboratory [address] [place] [address] Dr. Sung Moore CO2 [Moles/Vol] 20.1 mmol/L Critically low 21.0-32.0 [facility] Comment on above: Performed By: #### C MP, BNP #### [facility] Laboratory [address] [place] [address] Dr. Sung Moore Creatinine [Mass/Vol] 0.74 mg/dL Normal 0.55-1.02 [facility] Comment on above: Performed By: #### C MP, BNP #### [facility] Laboratory [address] [place] [address] Dr. Sung Moore EGFR-AF IVORIAN >60 Normal >=60 [facility] Comment on above: Performed By: #### C MP, BNP #### [facility] Laboratory [address] [place] [address] Dr. Sung Moore EGFR-NON AF IVORIAN >60 Normal >=60 [facility] Comment on above: Performed By: #### C MP, BNP #### [facility] Laboratory [address] [place] [address] Dr. Sung Moore Globulin (S) [Mass/Vol] 4.3 g/dL Normal [facility] Comment on above: Performed By: #### C MP, BNP #### [facility] Laboratory [address] [place] [address] Dr. Sung Moore Glucose [Mass/Vol] 138 mg/dL Critically high 74-106 [facility] Comment on above: Performed By: #### C MP, BNP #### [facility] Laboratory [address] [place] [address] Dr. Sung Moore Potassium [Moles/Vol] 4.0 mmol/L Normal 3.5-5.1 [facility] Comment on above: Performed By: #### C MP, BNP #### [facility] Laboratory [address] [place] [address] Dr. Sung Moore Protein [Mass/Vol] 6.7 g/dL Normal 6.4-8.2 [facility] Comment on above: Performed By: #### C MP, BNP #### [facility] Laboratory [address] [place] [address] Dr. Sung Moore Sodium [Moles/Vol] 139 mmol/L Normal 136-145 [facility] Comment on above: Performed By: #### C MP, BNP #### [facility] Laboratory [address] [place] [address] Dr. Sung Moore Urea nitrogen [Mass/Vol] 23.0 mg/dL Critically high 7.0-18.0 [facility] Comment on above: Performed By: #### C MP, BNP #### [facility] Laboratory [address] [place] [address] Dr. Sung Moore Urea nitrogen/Creatinine [Mass ratio] 31.1 mg/mg Normal [facility] Comment on above: Performed By: #### C MP, BNP #### [facility] Laboratory [address] [place] [address] Dr. Sung Moore BNPon 11-12-2021 Natriuretic peptide B (Bld) [Mass/Vol] 3014.0 pg/mL Critically high <=1,800.0 [facility] Comment on above: Performed By: #### L ACT #### [facility] Laboratory [address] [address] [address] Sung Moore CBC AUTO DIFFon 11-12-2021 BASO # 0.0 103/ul Normal 0.0-0.1 [facility] Comment on above: Performed By: #### C BC #### [facility] Laboratory [address] [address] [address] Sung Moore Basophils/100 WBC (Bld) 0.1 % Critically low 0.2-2.0 [facility] Comment on above: Performed By: #### C BC #### [facility] Laboratory [address] [place] [address] Dr. Sung Moore EO # 0.0 103/ul Normal 0.0-0.7 [facility] Comment on above: Performed By: #### C BC #### [facility] Laboratory [address] [place] [address] Dr. Sung Moore Eosinophils/100 WBC (Bld) 0.0 % Critically low 0.9-7.0 [facility] Comment on above: Performed By: #### C BC #### [facility] Laboratory [address] [place] [address] Dr. Sung Moore Erythrocyte distribution width (RBC) [Ratio] 15.5 % Critically high 11.0-15.0 [facility] Comment on above: Performed By: #### C BC #### [facility] Laboratory [address] [place] [address] Dr. Sung Moore Hematocrit (Bld) [Volume fraction] 28.4 % Critically low 36.0-48.0 [facility] Comment on above: Performed By: #### C BC #### [facility] [address] [place] [address] Dr. Sung Moore Hemoglobin (Bld) [Mass/Vol] 8.8 g/dL Critically low 12.0-16.0 [facility] Comment on above: Performed By: #### C BC #### [facility] Laboratory [address] [place] [address] Dr. Sung Moore IG # 0.06 10e3/ul Critically high 0.00-0.[address] [facility] Comment on above: Performed By: #### C BC #### [facility] Laboratory [address] [place] [address] Dr. Sung Moore IG % 0.4 % Normal 0.0-0.5 [facility] Comment on above: Performed By: #### C BC #### [facility] [address] [place] [address] Dr. Sung Moore LYMPH # 1.3 103/ul Normal 1.2-3.8 [facility] Comment on above: Performed By: #### C BC #### [facility] [address] [place] [address] Dr. Sung Moore Lymphocytes/100 WBC (Bld) 9.2 % Critically low 20.5-60.0 [facility] Comment on above: Performed By: #### C BC #### [facility] [address] [place] [address] Dr. Sung Moore MANUAL DIFF REQ NO Normal [facility] Comment on above: Performed By: #### C BC #### [facility] [address] [place] [address] Dr. Sung Moore MCH (RBC) [Entitic mass] 27.2 pg Normal 26.7-34.0 [facility] Comment on above: Performed By: #### C BC #### [facility] [address] [place] [address] Dr. Sung Moore MCHC (RBC) [Mass/Vol] 31.0 g/dL Normal 29.9-35.2 [facility] Comment on above: Performed By: #### C BC #### [facility] Laboratory [address] [place] [address] Dr. Sung Moore MCV (RBC) [Entitic vol] 87.7 fL Normal 81.0-99.0 [facility] Comment on above: Performed By: #### C BC #### [facility] [address] [place] [address] Dr. Sung Moore MONO # 0.5 103/ul Normal 0.3-0.8 [facility] Comment on above: Performed By: #### C BC #### [facility] [address] [address] [address] Sung Moore Monocytes/100 WBC (Bld) 3.5 % Normal 1.7-12.0 [facility] Comment on above: Performed By: #### C BC #### [facility] [address] [address] [address] Sung Moore NEUT # 12.1 103/ul Critically high 1.4-6.5 [facility] Comment on above: Performed By: #### C BC #### [facility] [address] [place] [address] Dr. Sung Moore Neutrophils/100 WBC (Bld) 86.8 % Critically high 43.0-75.0 [facility] Comment on above: Performed By: #### C BC #### [facility] [address] [place] [address] Dr. Sung Moore Platelet mean volume (Bld) [Entitic vol] 9.8 fL Normal 9.5-13.5 [facility] Comment on above: Performed By: #### C BC #### [facility] [address] [address] [address] Sung Moore PLT 250 103/ul Normal 150-450 [facility] Comment on above: Performed By: #### C BC #### [facility] [address] [place] [address] Dr. Sung Moore RBC 3.24 106/ul Critically low 4.20-5.[address] [facility] Comment on above: Performed By: #### C BC #### [facility] [address] [place] [address] Dr. Sung Moore WBC 13.9 103/ul Critically high 4.0-11.0 [facility] Comment on above: Performed By: #### C BC #### [facility] [address] [place] [address] Dr. Sung Moore CULTURE URINEon 11-12-2021 CULTURE [...] F Trimethoprim/Sulfamethoxa zole <=20 S F Normal [facility] Comment on above: Performed By: #### C RP, CMP #### [facility] Laboratory [address] [place] [address] Dr. Sung Moore PROF 14(COMP METB)on 022 Albumin [Mass/Vol] 2.4 g/dL Critically low 3.4-5.0 [facility] Comment on above: Performed By: #### L ACT #### [facility] Laboratory [address] [place] [address] Dr. Sung Moore Albumin/Globulin [Mass ratio] 0.5 {ratio} Normal [facility] Comment on above: Performed By: #### L ACT #### [facility] Laboratory [address] [place] [address] Dr. Sung Moore ALP [Catalytic activity/Vol] 73 U/L Normal 46-116 [facility] Comment on above: Performed By: #### L ACT #### [facility] [address] [place] [address] Dr. Sung Moore ALT [Catalytic activity/Vol] 22 U/L Normal 14-59 [facility] Comment on above: Performed By: #### L ACT #### [facility] [address] [place] [address] Dr. Sung Moore Anion gap [Moles/Vol] 12.9 mmol/L Normal [facility] Comment on above: Performed By: #### L ACT #### [facility] Laboratory [address] [place] [address] Dr. Sung Moore AST [Catalytic activity/Vol] 21 U/L Normal 15-37 [facility] Comment on above: Performed By: #### L ACT #### [facility] [address] [address] [address] Sung Moore Bilirubin [Mass/Vol] 0.1 mg/dL Critically low 0.2-1.0 [facility] Comment on above: Performed By: #### L ACT #### [facility] [address] [address] [address] Sung Moore Calcium [Mass/Vol] 8.6 mg/dL Normal 8.5-10.1 [facility] Comment on above: Performed By: #### L ACT #### [facility] [address] [address] [address] Sung Moore Chloride [Moles/Vol] 108 mmol/L Critically high 98-107 [facility] Comment on above: Performed By: #### L ACT #### [facility] [address] [address] [address] Sung Moore CO2 [Moles/Vol] 22.0 mmol/L Normal 21.0-32.0 [facility] Comment on above: Performed By: #### L ACT #### [facility] [address] [address] [address] Sung Moore Creatinine [Mass/Vol] 0.79 mg/dL Normal 0.55-1.02 [facility] Comment on above: Performed By: #### L ACT #### [facility] [address] [address] [address] Sung Moore EGFR-AF IVORIAN >60 Normal >=60 [facility] Comment on above: Performed By: #### L ACT #### [facility] [address] [address] [address] Sung Moore EGFR-NON AF IVORIAN >60 Normal >=60 [facility] Comment on above: Performed By: #### L ACT #### [facility] [address] [address] [address] Sung Moore Globulin (S) [Mass/Vol] 4.5 g/dL Normal [facility] Comment on above: Performed By: #### L ACT #### [facility] [address] [address] [address] Sung Moore Glucose [Mass/Vol] 149 mg/dL Critically high 74-106 T [facility] Comment on above: Performed By: #### L ACT #### [facility] Laboratory [address] [place] [address] Dr. Sung Moore Potassium [Moles/Vol] 2.8 mmol/L Critically low 3.5-5.1 [facility] Comment on above: Performed By: #### L ACT #### [facility] Laboratory [address] [place] [address] Dr. Sung Moore Protein [Mass/Vol] 6.9 g/dL Normal 6.4-8.2 [facility] Comment on above: Performed By: #### L ACT #### [facility] Laboratory [address] [place] [address] Dr. Sung Moore Sodium [Moles/Vol] 140 mmol/L Normal 136-145 [facility] Comment on above: Performed By: #### L ACT #### [facility] [address] [place] [address] Dr. Sung Moore Urea nitrogen [Mass/Vol] 17.0 mg/dL Normal 7.0-18.0 [facility] Comment on above: Performed By: #### L ACT #### [facility] [address] [place] [address] Dr. Sung Moore Urea nitrogen/Creatinine [Mass ratio] 21.5 mg/mg Normal [facility] Comment on above: Performed By: #### L ACT #### [facility] [address] [place] [address] Dr. Sung Moore BNPon 11-11-2021 Natriuretic peptide B (Bld) [Mass/Vol] 882.0 pg/mL Normal <=1,800.0 [facility] Comment on above: Performed By: #### C RP, CMP #### [facility] Laboratory [address] [place] [address] Dr. Sung Moore CBC AUTO DIFFon 11-11-2021 BASO # 0.0 103/ul Normal 0.0-0.1 [facility] Comment on above: Performed By: #### C RP, CMP #### [facility] Laboratory [address] [place] [address] Dr. Sung Moore Basophils/100 WBC (Bld) 0.0 % Critically low 0.2-2.0 [facility] Comment on above: Performed By: #### C RP, CMP #### [facility] [address] [place] [address] Dr. Sung Moore EO # 0.0 103/ul Normal 0.0-0.7 [facility] Comment on above: Performed By: #### C RP, CMP #### [facility] [address] [place] [address] Dr. Sung Moore Eosinophils/100 WBC (Bld) 0.0 % Critically low 0.9-7.0 [facility] Comment on above: Performed By: #### C RP, CMP #### [facility] [address] [place] [address] Dr. Sung Moore Erythrocyte distribution width (RBC) [Ratio] 15.1 % Critically high 11.0-15.0 [facility] Comment on above: Performed By: #### C RP, CMP #### [facility] Laboratory [address] [place] [address] Dr. Sung Moore Hematocrit (Bld) [Volume fraction] 28.5 % Critically low 36.0-48.0 [facility] Comment on above: Performed By: #### C RP, CMP #### [facility] [address] [place] [address] Dr. Sung Moore Hemoglobin (Bld) [Mass/Vol] 8.9 g/dL Critically low 12.0-16.0 [facility] Comment on above: Performed By: #### C RP, CMP #### [facility] [address] [place] [address] Dr. Sung Moore IG # 0.02 10e3/ul Normal 0.00-0.03 [facility] Comment on above: Performed By: #### C RP, CMP #### [facility] [address] [place] [address] Dr. Sung Moore IG % 0.5 % Normal 0.0-0.5 [facility] Comment on above: Performed By: #### C RP, CMP #### [facility] [address] [place] [address] Dr. Sung Moore LYMPH # 0.9 103/ul Critically low 1.2-3.8 [facility] Comment on above: Performed By: #### C RP, CMP #### [facility] [address] [place] [address] Dr. Sung Moore Lymphocytes/100 WBC (Bld) 23.8 % Normal 20.5-60.0 [facility] Comment on above: Performed By: #### C RP, CMP #### [facility] [address] [place] [address] Dr. Sung Moore MANUAL DIFF REQ NO Normal [facility] Comment on above: Performed By: #### C RP, CMP #### [facility] [address] [place] [address] Dr. Sung Moore MCH (RBC) [Entitic mass] 27.4 pg Normal 26.7-34.0 [facility] Comment on above: Performed By: #### C RP, CMP #### [facility] [address] [place] [address] Dr. Sung Moore MCHC (RBC) [Mass/Vol] 31.2 g/dL Normal 29.9-35.2 [facility] Comment on above: Performed By: #### C RP, CMP #### [facility] [address] [place] [address] Dr. Sung Moore MCV (RBC) [Entitic vol] 87.7 fL Normal 81.0-99.0 [facility] Comment on above: Performed By: #### C RP, CMP #### [facility] [address] [place] [address] Dr. Sung Moore MONO # 0.1 103/ul Critically low 0.3-0.8 [facility] Comment on above: Performed By: #### C RP, CMP #### [facility] [address] [place] [address] Dr. Sung Moore Monocytes/100 WBC (Bld) 2.1 % Normal 1.7-12.0 [facility] Comment on above: Performed By: #### C RP, CMP #### [facility] [address] [place] [address] Dr. Sung Moore NEUT # 2.8 103/ul Normal 1.4-6.5 [facility] Comment on above: Performed By: #### C RP, CMP #### [facility] [address] [place] [address] Dr. Sung Moore Neutrophils/100 WBC (Bld) 73.6 % Normal 43.0-75.0 [facility] Comment on above: Performed By: #### C RP, CMP #### [facility] [address] [place] [address] Dr. Sung Moore Platelet mean volume (Bld) [Entitic vol] 9.4 fL Critically low 9.5-13.5 [facility] Comment on above: Performed By: #### C RP, CMP #### [facility] [address] [place] [address] Dr. Sung Moore PLT 216 103/ul Normal 150-450 [facility] Comment on above: Performed By: #### C RP, CMP #### [facility] [address] [place] [address] Dr. Sung Moore RBC 3.25 106/ul Critically low 4.20-5.40 [facility] Comment on above: Performed By: #### C RP, CMP #### [facility] [address] [place] [address] Dr. Sung Moore WBC 3.7 103/ul Critically low 4.0-11.0 [facility] Comment on above: Performed By: #### C RP, CMP #### [facility] [address] [place] [address] Dr. Sung Moore PROF 14(COMP METB)on 022 Albumin [Mass/Vol] 2.4 g/dL Critically low 3.4-5.0 [facility] Comment on above: Performed By: #### C MP, BNP #### [facility] [address] [place] [address] Dr. Sung Moore Albumin/Globulin [Mass ratio] 0.5 {ratio} Normal [facility] Comment on above: Performed By: #### C MP, BNP #### [facility] [address] [place] [address] Dr. Sung Moore ALP [Catalytic activity/Vol] 87 U/L Normal 46-116 [facility] Comment on above: Performed By: #### C MP, BNP #### [facility] [address] [place] [address] Dr. Sung Moore ALT [Catalytic activity/Vol] 19 U/L Normal 14-59 [facility] Comment on above: Performed By: #### C MP, BNP #### [facility] [address] [place] [address] Dr. Sung Moore Anion gap [Moles/Vol] 9.2 mmol/L Normal [facility] Comment on above: Performed By: #### C MP, BNP #### [facility] [address] [place] [address] Dr. Sung Moore AST [Catalytic activity/Vol] 20 U/L Normal 15-37 [facility] Comment on above: Performed By: #### C MP, BNP #### [facility] [address] [place] [address] Dr. Sung Moore Bilirubin [Mass/Vol] 0.2 mg/dL Normal 0.2-1.0 [facility] Comment on above: Performed By: #### C MP, BNP #### [facility] [address] [place] [address] Dr. Sung Moore Calcium [Mass/Vol] 8.5 mg/dL Normal 8.5-10.1 [facility] Comment on above: Performed By: #### C MP, BNP #### [facility] [address] [place] [address] Dr. Sung Moore Chloride [Moles/Vol] 106 mmol/L Normal 98-107 [facility] Comment on above: Performed By: #### C MP, BNP #### [facility] [address] [place] [address] Dr. Sung Moore CO2 [Moles/Vol] 23.1 mmol/L Normal 21.0-32.0 [facility] Comment on above: Performed By: #### C MP, BNP #### [facility] [address] [place] [address] Dr. Sung Moore Creatinine [Mass/Vol] 0.88 mg/dL Normal 0.55-1.02 [facility] Comment on above: Performed By: #### C MP, BNP #### [facility] [address] [place] [address] Dr. Sung Moore EGFR-AF IVORIAN >60 Normal >=60 [facility] Comment on above: Performed By: #### C MP, BNP #### [facility] [address] [place] [address] Dr. Sung Moore EGFR-NON AF IVORIAN >60 Normal >=60 [facility] Comment on above: Performed By: #### C MP, BNP #### [facility] [address] [place] [address] Dr. Sung Moore Globulin (S) [Mass/Vol] 4.8 g/dL Normal [facility] Comment on above: Performed By: #### C MP, BNP #### [facility] [facility] [address] [place] [address] Dr. Sung Moore Glucose [Mass/Vol] 153 mg/dL Critically high 74-106 T [facility] Comment on above: Performed By: #### C MP, BNP #### [facility] [address] [place] [address] Dr. Sung Moore Potassium [Moles/Vol] 3.3 mmol/L Critically low 3.5-5.1 [facility] Comment on above: Performed By: #### C MP, BNP #### [facility] [address] [place] [address] Dr. Sung Moore Protein [Mass/Vol] 7.2 g/dL Normal 6.4-8.2 [facility] Comment on above: Performed By: #### C MP, BNP #### [facility] [address] [place] [address] Dr. Sung Moore Sodium [Moles/Vol] 135 mmol/L Critically low 136-145 Th [facility] Comment on above: Performed By: #### C MP, BNP #### [facility] [address] [place] [address] Dr. Sung Moore Urea nitrogen [Mass/Vol] 16.0 mg/dL Normal 7.0-18.0 [facility] Comment on above: Performed By: #### C MP, BNP #### [facility] [address] [place] [address] Dr. Sung Moore Urea nitrogen/Creatinine [Mass ratio] 18.2 mg/mg Normal [facility] Comment on above: Performed By: #### C MP, BNP #### [facility] [address] [place] [address] Dr. Sung Moore CBC AUTO DIFFon 11-10-2021 BASO # 0.0 103/ul Normal 0.0-0.1 [facility] Comment on above: Performed By: #### C RP, CMP #### [facility] [address] [place] [address] Dr. Sung Moore Basophils/100 WBC (Bld) 0.2 % Normal 0.2-2.0 [facility] Comment on above: Performed By: #### C RP, CMP #### [facility] [address] [place] [address] Dr. Sugn Moore EO # 0.0 103/ul Normal 0.0-0.7 [facility] Comment on above: Performed By: #### C RP, CMP #### [facility] [address] [place] [address] Dr. Sung Moore Eosinophils/100 WBC (Bld) 0.2 % Critically low 0.9-7.0 [facility] Comment on above: Performed By: #### C RP, CMP #### [facility] [address] [place] [address] Dr. Sung Moore Erythrocyte distribution width (RBC) [Ratio] 15.2 % Critically high 11.0-15.0 [facility] Comment on above: Performed By: #### C RP, CMP #### [facility] [address] [place] [address] Dr. Sung Moore Hematocrit (Bld) [Volume fraction] 30.0 % Critically low 36.0-48.0 [facility] Comment on above: Performed By: #### C RP, CMP #### [facility] [address] [place] [address] Dr. Sung Moore Hemoglobin (Bld) [Mass/Vol] 9.7 g/dL Critically low 12.0-16.0 [facility] Comment on above: Performed By: #### C RP, CMP #### [facility] [address] [place] [address] Dr. Sung Moore IG # 0.03 10e3/ul Normal 0.00-0.03 [facility] Comment on above: Performed By: #### C RP, CMP #### [facility] [address] [place] [address] Dr. Sung Moore IG % 0.5 % Normal 0.0-0.5 [facility] Comment on above: Performed By: #### C RP, CMP #### [facility] [address] [place] [address] Dr. Sung Moore LYMPH # 1.3 103/ul Normal 1.2-3.8 [facility] Comment on above: Performed By: #### C RP, CMP #### [facility] [address] [place] [address] Dr. Sung Moore Lymphocytes/100 WBC (Bld) 20.3 % Critically low 20.5-60.0 [facility] Comment on above: Performed By: #### C RP, CMP #### [facility] [address] [place] [address] Dr. Sung Moore MANUAL DIFF REQ NO Normal [facility] Comment on above: Performed By: #### C RP, CMP #### [facility] [address] [place] [address] Dr. Sung Moore MCH (RBC) [Entitic mass] 27.8 pg Normal 26.7-34.0 [facility] Comment on above: Performed By: #### C RP, CMP #### [facility] [address] [place] [address] Dr. Sung Moore MCHC (RBC) [Mass/Vol] 32.3 g/dL Normal 29.9-35.2 [facility] Comment on above: Performed By: #### C RP, CMP #### [facility] [address] [place] [address] Dr. Sung Moore MCV (RBC) [Entitic vol] 86.0 fL Normal 81.0-99.0 [facility] Comment on above: Performed By: #### C RP, CMP #### [facility] [address] [place] [address] Dr. Sung Moore MONO # 0.6 103/ul Normal 0.3-0.8 [facility] Comment on above: Performed By: #### C RP, CMP #### [facility] [address] [place] [address] Dr. Sung Moore Monocytes/100 WBC (Bld) 8.8 % Normal 1.7-12.0 [facility] Comment on above: Performed By: #### C RP, CMP #### [facility] [address] [place] [address] Dr. Sung Moore NEUT # 4.6 103/ul Normal 1.4-6.5 [facility] Comment on above: Performed By: #### C RP, CMP #### [facility] [address] [place] [address] Dr. Sung Moore Neutrophils/100 WBC (Bld) 70.0 % Normal 43.0-75.0 [facility] Comment on above: Performed By: #### C RP, CMP #### [facility] [address] [place] [address] Dr. Sung Moore Platelet mean volume (Bld) [Entitic vol] 9.1 fL Critically low 9.5-13.5 [facility] Comment on above: Performed By: #### C RP, CMP #### [facility] [address] [place] [address] Dr. Sung Moore PLT 230 103/ul Normal 150-450 [facility] Comment on above: Performed By: #### C RP, CMP #### [facility] [address] [place], [place] [address] Dr. Sung Moore RBC 3.49 106/ul Critically low 4.20-5.40 [facility] Comment on above: Performed By: #### C RP, CMP #### [facility] [address] [place], [place] [address] Dr. Sung Moore WBC 6.6 103/ul Normal 4.0-11.0 [facility] Comment on above: Performed By: #### C RP, CMP #### [facility] [address] [place], [place] 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 Hypodensity in the posterior limb of the left internal capsule measuring 8 x 6 mm compatible with prior lacunar infarct. Dense carotid calcifications. IMPRESSION: No acute intracranial hemorrhage. Chronic ischemic changes as documented. Electronically authenticated by: KAYLEY PHELAN Date: 2021-11-10 15:47 Normal [facility] CULTURE BLOODon 11-10-2021 Microscopic examination of blood, culture Culture Observations: NO GROWTH AT 5 DAYS. Isolate 1 BC_BA_NA Normal [facility] Comment on above: Performed By: #### C RP, CMP #### [facility] [address] [place] [address] [address] Sung Moore Microscopic examination of blood, culture Culture Observations: NO GROWTH AT 5 DAYS. Isolate 1 BC_BA_NA Normal [facility] Comment on above: Performed By: #### C RP, CMP #### [facility] [address] [address] [address] Sung Moore Covid-19 PCR ([facility])on 10-17 SARS-CoV-2 (COVID-19) RNA ROMY+probe Ql (Unsp spec) Not detected Normal NOT DETECTED [facility] Comment on above: Result Comment: When diagnostic [...] for this test is supported by the Certified Personal Trainer of Health and Human Service's declaration that [...] Performed By: #### C MP, BNP #### [facility] [address] [place] [address] Dr. Sung Moore ER URINE PROFILEon 2 Bilirubin Ql (U) Negative Normal NEGATIVE [facility] Comment on above: Performed By: #### C RP, CMP #### [facility] [address] [place] [address] Dr. Sung Moore Clarity (U) CLEAR Normal CLEAR [facility] Comment on above: Performed By: #### C RP, CMP #### [facility] [address] [place] [address] Dr. Sung Moore Color (U) LT. YELLOW Normal YELLOW [facility] Comment on above: Performed By: #### C RP, CMP #### [facility] [address] [place] [address] Dr. Sung Moore ERUAHD A micrscopic examina tion will be performed if indicated. Normal [facility] Comment on above: Performed By: #### C RP, CMP #### [facility] [address] [place] [address] Dr. Sung Moore Glucose Ql (U) Negative Normal NEGATIVE [facility] Comment on above: Performed By: #### C RP, CMP #### [facility] [address] [place] [address] Dr. Sung Moore Hemoglobin Ql (U) Negative Normal NEGATIVE [facility] Comment on above: Performed By: #### C RP, CMP #### [facility] [address] [place] [address] Dr. Sung Moore Ketones Ql (U) Negative Normal NEGATIVE [facility] Comment on above: Performed By: #### C RP, CMP #### [facility] [address] [place] [address] Dr. Sung Moore LEUKOCYTES LARGE Abnormal NEGATIVE [facility] Comment on above: Performed By: #### C RP, CMP #### [facility] [address] [place] [address] Dr. Sung Moore Nitrite Ql (U) Positive Abnormal NEGATIVE [facility] Comment on above: Performed By: #### C RP, CMP #### [facility] [address] [place] [address] Dr. Sung Moore pH (U) 6.0 [pH] Normal 5-9 [facility] Comment on above: Performed By: #### C RP, CMP #### [facility] [address] [place] [address] Dr. Sung Moore SPEC GRAVITY 1.010 Normal 1.005-<=1. 025 [facility] Comment on above: Performed By: #### C RP, CMP #### [facility] [address] [place] [address] Dr. Sung Moore UA PROTEIN Negative Normal NEGATIVE/ TRACE [facility] Comment on above: Performed By: #### C RP, CMP #### [facility] [address] [place] [address] Dr. Sung Moore UR MICRO IND INDICATED Normal [facility] Comment on above: Performed By: #### C RP, CMP #### [facility] [address] [place] [address] Dr. Sung Moore Urobilinogen Qn (U) 0.2 {David'U}/dL Normal 0.2 - 1. 0 [facility] Comment on above: Performed By: #### C RP, CMP #### [facility] [address] [place] [address] Dr. Sung Moore LACTATE/LACTIC ACIDon 2021 Lactate [Moles/Vol] 1.1 mmol/L Normal 0.4-1.9 [facility] Comment on above: Performed By: #### C RP, CMP #### [facility] [address] [place] [address] Dr. Sung Moore Lactate [Moles/Vol] 1.9 mmol/L Normal 0.4-1.9 [facility] Comment on above: Performed By: #### C MP, BNP #### [facility] [address] [place] [address] Dr. Sung Moore PROF 14(COMP METB)on 022 Albumin [Mass/Vol] 2.9 g/dL Critically low 3.4-5.0 [facility] Comment on above: Performed By: #### L ACT #### [facility] [address] [place] [address] Dr. Sung Moore Albumin/Globulin [Mass ratio] 0.6 {ratio} Normal [facility] Comment on above: Performed By: #### L ACT #### [facility] [address] [place] [address] Dr. Sung Moore ALP [Catalytic activity/Vol] 101 U/L Normal 46-116 [facility] Comment on above: Performed By: #### L ACT #### [facility] [address] [place] [address] Dr. Sung Moore ALT [Catalytic activity/Vol] 21 U/L Normal 14-59 [facility] Comment on above: Performed By: #### L ACT #### [facility] [address] [place] [address] Dr. Sung Moore Anion gap [Moles/Vol] 14.6 mmol/L Normal [facility] Comment on above: Performed By: #### L ACT #### [facility] [address] [place] [address] Dr. Sung Moore AST [Catalytic activity/Vol] 19 U/L Normal 15-37 [facility] Comment on above: Performed By: #### L ACT #### [facility] [address] [address] [address] Sung Moore Bilirubin [Mass/Vol] 0.7 mg/dL Normal 0.2-1.0 [facility] Comment on above: Performed By: #### L ACT #### [facility] [address] [place] [address] [address] Sung Moore Calcium [Mass/Vol] 8.4 mg/dL Critically low 8.5-10.1 Th e [facility] Comment on above: Performed By: #### L ACT #### [facility] [address] [place] [address] [address] Sung Moore Chloride [Moles/Vol] 94 mmol/L Critically low 98-107 [facility] Comment on above: Performed By: #### L ACT #### [facility] [address] [place] [address] [address] Sung Moore CO2 [Moles/Vol] 22.9 mmol/L Normal 21.0-32.0 [facility] Comment on above: Performed By: #### L ACT #### [facility] [address] [address] [address] Sung Moore Creatinine [Mass/Vol] 1.40 mg/dL Critically high 0.55-1.02 [facility] Comment on above: Performed By: #### L ACT #### [facility] [address] [place] [address] [address] Sung Moore EGFR-AF IVORIAN 44 mL/min/1.73m2 Critically low >=60 [facility] Comment on above: Performed By: #### L ACT #### [facility] [address] [place] [address] [address] Sung Moore EGFR-NON AF IVORIAN 37 mL/min/1.73m2 Critically low >=60 [facility] Comment on above: Performed By: #### L ACT #### [facility] [address] [place] [address] [address] Sung Moore Globulin (S) [Mass/Vol] 4.9 g/dL Normal [facility] Comment on above: Performed By: #### L ACT #### [facility] [address] [place] [address] [address] Sung Moore Glucose [Mass/Vol] 150 mg/dL Critically high 74-106 T [facility] Comment on above: Performed By: #### L ACT #### [facility] [address] [place] [address] [address] Sung Moore Potassium [Moles/Vol] 3.5 mmol/L Normal 3.5-5.1 [facility] Comment on above: Performed By: #### L ACT #### [facility] [address] [place] [address] [address] Sung Moore Protein [Mass/Vol] 7.8 g/dL Normal 6.4-8.2 [facility] Comment on above: Performed By: #### L ACT #### [facility] [address] [place] [address] [address] Sung Moore Sodium [Moles/Vol] 128 mmol/L Critically low 136-145 Th [facility] Comment on above: Performed By: #### L ACT #### [facility] [address] [place] [address] [address] Sung Moore Urea nitrogen [Mass/Vol] 21.0 mg/dL Critically high 7.0-18.0 [facility] Comment on above: Performed By: #### L ACT #### [facility] [address] [place] [address] [address] Sung Moore Urea nitrogen/Creatinine [Mass ratio] 15.0 mg/mg [facility] Comment on above: Performed By: #### L ACT #### [facility] [address] [place] [address] [address] Sung Moore PROTIMEon 11-10-2021 INR Coag (PPP) [Relative time] 1.16 {INR} [facility] Comment on above: Performed By: #### C RP, CMP #### [facility] [address] [place] [address] [address] Sung Moore INR GUIDELINES SEE BELOW Normal [facility] Comment on above: Result Comment: JOHN RED INR: 2.0 - 3.0 CONDITIONS NOT LISTED BELOW 2.5 - 3.5 FOR PROSTHETIC HEART VALVE REPLACEMENT 2.5 - 3.5 RECURRENT THROMBOSIS Performed By: #### C RP, CMP #### [facility] [address] [place] [address] Dr. Sung Moore PT Coag (PPP) [Time] 12.4 s Critically high 9.0-11.6 [facility] Comment on above: Performed By: #### C RP, CMP #### [facility] [address] [place] [address] Dr. Sung Moore PTTon 11-10-2021 aPTT Coag (Bld) [Time] 32.9 s Normal 22.3-36.2 Th [facility] Comment on above: Performed By: #### C RP, CMP #### [facility] [address] [place] [address] Dr. Sung Moore TROPONIN, HIGH SENSITIVITYon 11-10-2021 HSTROP 10.1 pg/mL Normal 4.0-51.3 [facility] Comment on above: Result Comment: CUT- OFF POINTS HAVE BEEN ESTABLISHED BASED ON THE FOURTH UNIVERSAL DEFINITIONS OF MYOCARDIAL INFARCTION. THE UPPER REFERENCE LIMIT (URL) OF TROPONIN, DEFINED THE 99TH PERCENTILE OF cTnI DISTRIBUTION IN A REFERENCE POPULATION, HAS BEEN CONFIRMED THE DECISION THRESHOLD FOR MS DIAGNOSIS. Performed By: #### L ACT #### [facility] [address] [place] [address] Dr. Sung Moore TSHon 11-10-2021 TSH 1.207 uIU/mL Normal 0.358-3.74 0 [facility] Comment on above: Performed By: #### C MP, BNP #### [facility] [address] [place] [address] Dr. Sung Moore TSH RANGE SEE BELOW Normal [facility] Comment on above: Result Comment: <0.3 4 UIU/ml HYPERTHYROID 0.34-5.60 UIU/ml EUTHYROID >5.60 UIU/ml HYPOTHYROID Performed By: #### C MP, BNP #### [facility] [address] [place] [address] Dr. Sung Moore URINE MICROSCOPIC ONLYon BACTERIA MODERATE Abnormal NONE SEEN [facility] Comment on above: Performed By: #### C RP, CMP #### [facility] [address] [place] [address] Dr. Sung Moore Bacteria identified Cx Nom (U) INDICATED Normal [facility] Comment on above: Performed By: #### C RP, CMP #### [facility] [address] [place] [address] Dr. Sung Moore CAST NONE SEEN Normal NONE SEEN [facility] Comment on above: Performed By: #### C RP, CMP #### [facility] [address] [place] [address] Dr. Sung Moore Crystals LM Nom (Urine sed) NONE SEEN Normal NONE SEEN [facility] Comment on above: Performed By: #### C RP, CMP #### [facility] [address] [place] [address] Dr. Sung Moore Epithelial cells LM Ql (Urine sed) RARE Normal NONE SEEN /RARE [facility] Comment on above: Performed By: #### C RP, CMP #### [facility] [address] [place] [address] Dr. Sung Moore MUCOUS NONE SEEN Normal NONE SEEN [facility] Comment on above: Performed By: #### C RP, CMP #### [facility] [address] [place] [address] Dr. Sung Moore RBC NONE SEEN Abnormal 0-2 [facility] Comment on above: Performed By: #### C RP, CMP #### [facility] [address] [place] [address] Dr. Sung Moore WBC 50-75 Abnormal NONE SEEN [facility] Comment on above: Performed By: #### C RP, CMP #### [facility] [address] [place] [address] Dr. Sung Moore XR CHEST 1 Von [...] DION SNOWDEN Date: 2021-11-10 15:26 Normal [facility] Glucose Glucometer (dC) [M ass/Vol]Ordered By: Bonnie Hendricks on 10-19-2021 Glucose [Mass/Vol] 127 mg/dL [facility] Comment on above: Random Glucose Refer ence Range is dependent on time and content of last meal. Glucose of more than 200 mg/dL in a nonstressed, ambulatory subject supports the diagnosis of Diabetes Mellitus. Activated partial thrombopla stin time (aPTT) in platelet poor plasma by coagulation aOrdered By: Bonnie Hendricks on 10-12-2021 aPTT Coag (PPP) [Time] 31.5 s 25.1-36.5 [facility] Basophils Auto (Bld) [#/Vol] Ordered By: Bonnie Hendricks on 10-12-2021 Basophils (Bld) [#/Vol] 0.0 10*3/uL 0.0-0.2 [facility] Basophils/100 WBC Auto (Bld) Ordered By: Bonnie Hendricks on 10-12-2021 Basophils/100 WBC (Bld) 0.3 % . [facility] Blood hemoglobin measurement (mass/volume)Ordered By: Bonnie Hendricks on 10-12-2021 Hemoglobin (Bld) [Mass/Vol] 10.4 g/dL 11.8-15.4 [facility] Blood leukocytes automated c ount (number/volume)Ordered By: Bonnie Hendricks on 10-12-2021 WBC (Bld) [#/Vol] 6.3 10*3/uL 4.5-11.0 [facility] Body fluid albumin measureme nt (mass/volume)Ordered By: Bonnie Hendricks on 10-12-2021 Albumin (Body fld) [Mass/Vol] 3.4 g/dL 3.2-5.5 [facility] Creatinine and Glomerular fi ltration rate.predicted panel (S/P/Bld)Ordered By: Bonnie Hendricks on 10-12-2021 Creatinine [Mass/Vol] 0.81 mg/dL 0.44-1.03 [facility] Eosinophils Auto (Bld) [#/Vo l]Ordered By: Bonnie Hendricks on 10-12-2021 Eosinophils (Bld) [#/Vol] 0.2 10*3/uL 0.0-0.45 [facility] Eosinophils/100 WBC Auto (Bl d)Ordered By: Bonnie Hendricks on 10-12-2021 Eosinophils/100 WBC (Bld) 3.5 % . [facility] Erythrocyte distribution wid th Auto (RBC) [Ratio]Ordered By: Bonnie Hendricks on 10-12-2021 Erythrocyte distribution width (RBC) [Ratio] 16.5 % 11.9-15.3 [facility] Estimated glomerular filtrat ion rate (GFR) non- AmericanOrdered By: Bonnie Hendricks on 10-12-2021 GFR/1.73 sq M.predicted among non-blacks MDRD (S/P/Bld) [Vol rate/Area] > 60 mL/Min [facility] Globulin Calc (S) [Mass/Vol] Ordered By: Bonnie Hendricks on 10-12-2021 Globulin (S) [Mass/Vol] 4.6 g/dL [facility] Hematocrit Auto (Bld) [Volum e fraction]Ordered By: Bonnie Hendricks on 10-12-2021 Hematocrit (Bld) [Volume fraction] 31.6 % 34.0-46.4 [facility] [facility] CoagulationOrde red By: Bonnie Hendricks on 10-12-2021 PT Coag (PPP) [Time] 14.0 s High 9.0-12.9 [facility] - Hematology and Cell countsOrdered By: Bonnie Hendricks on 10-12-2021 Nucleated RBC/100 WBC (Bld) [Ratio] 0.0 % 0-0.5 [facility] Lactate dehydrogenase measur ement (enzymatic activity/volume)Ordered By: Bonnie Hendricks on 10-12-2021 LDH (Unsp spec) [Catalytic activity/Vol] 133 U/L 45-190 [facility] Lymphocytes Auto (Bld) [#/Vo l]Ordered By: Bonnie Hendricks on 10-12-2021 Lymphocytes (Bld) [#/Vol] 1.4 10*3/uL 1.00-4.8 [facility] Lymphocytes/100 WBC Auto (Bl d)Ordered By: Bonnie Hendricks on 10-12-2021 Lymphocytes/100 WBC (Bld) 22.9 % . [facility] MCH Auto (RBC) [Entitic mass ]Ordered By: Bonnie Hendricks on 10-12-2021 MCH (RBC) [Entitic mass] 28.2 pg 24.7-34.3 [facility] MCHC Auto (RBC) [Mass/Vol]Or dered By: Bonnie Hendricks on 10-12-2021 MCHC (RBC) [Mass/Vol] 32.8 g/dL 32.0-35.0 [facility] MCV Auto (RBC) [Entitic vol] Ordered By: Bonnie Hendricks on 10-12-2021 MCV (RBC) [Entitic vol] 85.8 fL 80-100 [facility] Monocytes Auto (Bld) [#/Vol] Ordered By: Bonnie Hendricks on 10-12-2021 Monocytes (Bld) [#/Vol] 0.4 10*3/uL 0.0-0.8 [facility] Monocytes/100 WBC Auto (Bld) Ordered By: Bonnie Hendricks on 10-12-2021 Monocytes/100 WBC (Bld) 6.3 % . [facility] Neutrophils Auto (Bld) [#/Vo l]Ordered By: Bonnie Hendricks on 10-12-2021 Neutrophils (Bld) [#/Vol] 4.2 10*3/uL 1.8-7.7 [facility] Neutrophils/100 WBC Auto (Bl d)Ordered By: Bonnie Hendricks on 10-12-2021 Neutrophils/100 WBC (Bld) 67.0 % . [facility] No Panel InformationOrdered By: Bonnie Hendricks on 10-12-2021 Estimated GFR () > 60 mL/Min [facility] Comment on above: GFR estimated refere nce range: According to KDOQI guidelines, <60 ml/min/1.73m2 is sufficient to diagnose a patient with chronic kidney disease. Pharmacy Creatinine Clearance (Chem N/A [facility] Platelet mean volume Auto (B ld) [Entitic vol]Ordered By: Bonnie Hendricks on 10-12-2021 Platelet mean volume (Bld) [Entitic vol] 7.1 fL 6.3-10.7 [facility] Platelet poor plasma interna tional normalized ratio (INR) by coagulation assay (relatOrdered By: Bonnie Hendricks on 10-12-2021 INR Coag (PPP) [Relative time] 1.2 {INR} [facility] Comment on above: INR Therapeutic Rang e [...] 10-12-2021 Platelets (Bld) [#/Vol] 370 10*3/uL 150-450 [facility] Protein [Mass/volume] in Ser um or PlasmaOrdered By: Bonnie Hendricks on 10-12-2021 Protein [Mass/Vol] 8.0 g/dL 6.1-7.9 [facility] RBC Auto (Bld) [#/Vol]Ordere d By: Bonnie Hendricks on 10-12-2021 RBC (Bld) [#/Vol] 3.68 10*6/uL 3.60-5.00 [facility] Serum or plasma alanine de guzman otransferase measurement without P-5'-P (enzymatic activiOrdered By: Bonnie Hendricks on 10-12-2021 ALT No additional P-5'-P [Catalytic activity/Vol] 13 U/L 10-60 [facility] Serum or plasma albumin/glob ulin mass ratioOrdered By: Bonnie Hendricks on 10-12-2021 Albumin/Globulin [Mass ratio] 0.7 {ratio} [facility] Serum or plasma alkaline david sphatase measurement (enzymatic activity/volume)Ordered By: Bonnie Hendricks on 10-12-2021 ALP [Catalytic activity/Vol] 94 U/L 32-92 [facility] Serum or plasma aspartate am inotransferase measurement (enzymatic activity/volume)Ordered By: Bonnie Hendricks on 10-12-2021 AST [Catalytic activity/Vol] 18 U/L 10-42 [facility] Serum or plasma calcium elias urement (mass/volume)Ordered By: Bonnie Hendricks on 10-12-2021 Calcium [Mass/Vol] 9.6 mg/dL 8.2-10.2 [facility] Serum or plasma cancer antig en 125 (CA-125) measurement (units/volume)Ordered By: Bonnie Hendricks on 10-12-2021 Cancer Ag 125 Qn 23.7 [arb'U]/mL 0.0-38.1 [facility] Comment on above: Sha Dpivision El ectrochemiluminescence Immunoassay (ECLIA) Values obtained with different assay methods or kits cannot be used interchangeably. Results cannot be interpreted as absolute evidence of the presence or absence of malignant disease. Performed at: [address] [id number] [employer]: Adrian Coello PhD, Phone: [phone] Serum or plasma chloride liset surement (moles/volume)Ordered By: Bonnie Hendricks on 10-12-2021 Chloride [Moles/Vol] 101 mmol/L 95-114 [facility] Serum or plasma glucose elias urement (mass/volume)Ordered By: Bonnie Hendricks on 10-12-2021 Glucose [Mass/Vol] 126 mg/dL 70-100 [facility] Comment on above: ADA recommended refe rence range Random Glucose Reference Range is dependent on time and content of last meal. Glucose of more than 200 mg/dL in a nonstressed, ambulatory subject supports the diagnosis of Diabetes Mellitus. Serum or plasma potassium me asurement (moles/volume)Ordered By: Bonnie Hendricks on 10-12-2021 Potassium [Moles/Vol] 4.3 mmol/L 3.5-5.1 [facility] Serum or plasma sodium measu rement (moles/volume)Ordered By: Bonnie Eladio on 10-12-2021 Sodium [Moles/Vol] 136 mmol/L 136-146 [facility] Serum or plasma total biliru bin measurement (mass/volume)Ordered By: Bonnie Eladio on 10-12-2021 Bilirubin [Mass/Vol] 0.9 mg/dL 0.3-1.2 [facility] Serum or plasma total carbon dioxide measurement (moles/volume)Ordered By: Bonnie Eladio on 10-12-2021 CO2 [Moles/Vol] 24.7 mmol/L 22.0-30.0 [facility] Serum or plasma urea nitroge n measurement (mass/volume)Ordered By: Bonnie Hendricks on 10-12-2021 Urea nitrogen [Mass/Vol] 10 mg/dL 03-10 [facility] C Urineon 08-26-2021 Bacteria identified Cx Nom [...] Locations R1: This test was performed at: [facility], [address] [place] [address], [phone] , , [facility] Comment on above: Performed By: #### [id number] ####[place] [address] Coding Summary.on 08-26-2021 Coding Summary. [id number] Gh0bW w+PGhlYWQ+XC1CRMMwA37vgEC xeJ7YT3eETW4XMUPZAEZUTW2F MX1loDG6HHrqS0SvakNt WduysYQaVN51HYy1SIW1aQopR ZotpH2xtURpE1t3GxHnTF50pY 62TOzlMRPeWjL0OkEwtvtjlAL y R2ukBdQybHOeWgw+PHRhYmxlI HdpZHRoPScxMDAlJyBzdHlsZT 9aKz7kVPZrQYCydEgwoYFdZfN j f5fcTBHbIMlmGA6ytEpdV8Afd ZY7VJKxh0i3Ye87wWB+PHRkIH A8vPrxUWfzu880BwFie4rbKGS 3 kENrCVsxNQU4X77nq6W1GOZiD ADtNVN9oWQ9zA9msAgnhdqkW4 MojJOuEuQ9LKG9gGOatW0lbDp n iibucU7xFzu+Z66MEU2MEKOYV N2UYjk7Y1IiSzokwVT+PC90YW EzLV63xJLxcMCnl1ehvZv1YcB w ZIEzLRJ3qRclERvcb8CrMXAbS 99cgVVhj2D0ETCyyXxgoICoGq ZowLD1hW5gGWmtpsynl4sddrp n Usvus3owgv37dQ43B32nUPfiW VWeSVM1TAWuIKSwdHxekw9roS 9wIi8+IXqbw9jdl6kbzPo8YvT w XTDhsoFekTkfHAW7v1BgMk24W 1KheQptw3RwGdb4ei96qCIsn0 Q3wUE7PPmgTUKtgZ5cXMjxBhS 6 IZPcRdQjnT92sBUoGWsdLy1qu MdyrRqyPT9tSKCebdhmMYAwsQ 9pQXJxzPSimEvzPX9yGKIfdmm m d302CrEqIGE9PYOaqYArF1Utf G8oEwHhIHYzPFWvR5OtuUZhHH ntQ681HXyqGxI7ROGpsaGwT3F s HUYrdOdjWyJ1f7P0Rd2Wu8Kcd dpgQWA2DTtiARSoPuGwReOcRg P3W4NcJjv7GGJbuQcjTE9cX9D h WVHlejsrffaomVC2ORBfFCMfd E41hQCdOXhfDz5ub8W5i120MR PcDQQbrB54Bu1ioWfhQKKlsFX U jW8jzrdmj2sigoutOdKcGBXfZ Da6NCt4TFDhqXopKoVnSRD8Zh R5JQM6uGZtvQ8kcPdfuvpqhD1 w Oyc+R77hfJ2iKZV0VOC2yimxI HSjgeTiCC47MI62D3LiLopuuA FibGU+FOSmovRrxRguRS8tKtY j o6fhe5DdNVoyA4WjBXKbOZvnD as5FIQgZUT7iWR6hB7rPRRpAU eiv4A3oGN9H4NeifQabn7qq1q s LLCpSDxeC53gpABtx3H1SFYix UO7AVMiwSzmWiGlwY52Gjk+PG UyxUzuy4KlFzgxe2dyi9efvFw 9 VsAnQWPbanMpvMfwFSZ4p6CjR h58F48wYQkpPHZlCJLoRJLwFE WmoLegmm0hnK8dNf5+PGNvbCB 3 xEZ7lB3sJBEoQgB7OTkiW466T hYmmGVpDgill7rgi4ikwLx4Uy JyAQLysiEyvGezSAM1b6WrEw4 8 F61pUEraIIElXLViAXEhMZEux Tctem8viT0zZo0+NR3zw6cyrt 22fW05iOJ+KZOmLFH8wTmmRCa w COXioI4qDUaxJwA5GZZsFkNpt K11aTCuVQxnZd6niVcfrZniRT 1bOJSpympwa508QeFxb8yjTWX w qQDaZJscDUR2T07bv7F0NLTvE NSpSHN0lOL3wY2qdNgkhftqdG EugGtnafKqdTsrJKarKIxtW57 6 IHRvcDsnPlBhdGllbnQgTmFtZ Sr7B2DgGki7DLHtgLmfVE8rdG NeQNcrWr8mtWhmnYdzLW2oVWF p lrrug209HrYjo1irMVWnpCOmN ZwrNXX8M27ad7N7XEAvQZHlKZ C5lJN4uI7tpTocwficbTLycGr g iuBfiJbyOCaiUYxhY828IPEie KuvKbHycbRpPJBfeGO7AS86XN 38sVOeh2Q3fGB1Z5YxZIHjbng t wpiieIX6ZPPhDFDblD99Jn9im ZtiTi2nGUQmGRA0DDJyeJTlR3 NgpM9xVoOqEUIsJRXgD1FgzRS t AKroY345JWvlYeR6FLVjgsHrC 6HiASJzqWipQeG1q1A4Vu5RH4 E0ER58GL48wKIey3G1uCI4R7I h DGTgozhtbqtkxZV2VWBcEFWyk S30Cs3ijLocYp3pGWUfTLQ5RD AkaLIvV6CpoX9fOyTfGVNhQXK w D2RweDXaMIcbH663IIytMyL3Q VTdtyInC7PeMUEbjFfgUkP1u4 I0Oh9PEVx5MR19MI06wFOov4K 5 vCD0N1VoQOMcwutrljvzoMA8C YBfGYZpwK99Or6pkAtoDp8xCD DaEEL1MAOidQSwT4AnpG1nNsP j COYeMTJvF9ZoyVTtSXplY045P ZjfSpW2XFSlxkSgL6PzGXMkdF ygFoY6j5X0Ih2TFWAqKU65KMY 5 oKG0BE31VD13B9YiBgmxzMZbo +PHRhYmxlIHdpZHRoPScxMD PzDiKybNfvQV0pEr1mWZFtMQB v sOpkkRBoLpEko5haSNEeVEwxI Y7riPtjO8QmgLR5ZDHny4j6Pl 96D15eQ4TfrPJ+SUIilSI2qCV 0 gO4qJbVmFwQ8NRczW222RtVxu UHjZieab7smi4mwkFd3FzG0VC WgmjQnqRdpHWI0s8SvZz53C78 s IHdpZHRoPSIxNSUiIHZhbGlnb x9ghI7sRg2+TZFgjKB6eEV9oJ 9dClSwUeQ6ZRpfG182RfGewSB v Erflm8fur7zdkFr2KnXyOEMxe yGpzIdwQYS6o4IfKh55Z9AktY djg9CmGks6rx47eRSrh6V3xIU 9 A0NzDMIvohwzjOUmcBewGO4sT EXvumhhDSMleR6eFJIiF0g0Vm KnXpB3ZNnrM4BabeB3VYJjrMW g RXqrUSG4Y69vz4M0NHDwNBTrA JY6jWD8pK7quDyimlbhmEMofE drdxGqhPptYRdzMIwzM895MNO v pZwpRIYzhY3mBHQqkXDdrLkmZ L3kFJDgvtajAqjEJvwINEsdNS GOCKXLDkH7K1LcBze5HPNdcBs s UL5ubVBfXWmsHz5hsIdktAbgM Z2yJXRtysriQARimX1kTCWedH FgrNfsSD7bIGWkvpfen865YfN x HBQ6RTVxaQBcO5SsbD5yRqWbV GAfRCZcD2DypPRvIJuwY219FV rwOtO6SBOkhtKvA4EyPCPpmTy u ZpG1n9Y5Sq3fDs1pKC8sPCJ1Z O61CG64aFZwj8W9fJY6G1UmSV WpglwzmuudtOY4XJWyHXWkgV3 7 hBHiFEaiLg3cm3Z8f713ZLHjP RXtvV97Cb2ayQsuOBVvoQIWnR 7vzucdq3ymhpoiFyStXIYhUDb 0 TUe8WACqwBkzDfIcOYO9AxA3H CC4xAEdxY1voNcpgzivxV2sBo c+FpBbLCYtxfJ3K9JsNry6PGH z zCasZB7luFVgVRanYl2fqModu CdmVS5kOCAtjadkSJQdzC6cXU TuhCLqkZuqXP8nWHYjoveon45 0 FgIqVKG4IXVflSOwD1UjnM5eV pVmAFHrFHVyD4QxmYGqMNbrB1 19MPgfGuV0DVYyhqKxU7DaJSO s pKroLzW9j9K1Hy4ELC4jlMO3I 4YuIuo1BDXdjCgiBV8bfBUfZG abCa2aeKvfyWndZL2hUJYndph w THMdtX3jJIYktKRngGoxHX2wX HQcbnyry372AqGeHIB1SXMboX ZvC3PvsM6yIfIxMMRaAPJjU3Y l fIToDFknL278JZloMdR4UICjr iAvW8SvIQVtqPsdPhL2u1L2Xj 5QUQSyQCGwuPPhEnV7X9EgJwm v dHI+UY45DPEqGQ19sBGslFEks 2uiiJl5UgUmHXErNFL2oExbZC cqk7OcWETvY95vrYSko6S6UTJ v iVmgkIZnLkCehIX0nW1fGPpuc pznu2jirdauAwbcb8ylhh08hU 86S65uCEywRISdHQImZBBtNLJ h bZccvi2ffH0iGn5+GKYyjTN1h QP1rY4oWiStZmX5SZwnC076Va FmxKCgVtwfx2nde4hidJl5IhG w HPCwkaBcvXviVHG8p3QjPm13M 29sIHdpZHRoPSIyMCUiIHZhbG ftro1uyH9dXm3+OV4ys6owlp6 1 fJ62tLB+JAObNVJ1yOdjTRdsV VYszN1wXDlfWjA1DKRiYbRddT 88zJFjIEozDy4eeHibeXifUY2 w OZEdzqstk031BpAlg2qzWPTrd KCoRSbtXFA8S32af3W5GMCpVY OaCIC6nEX3sO0vcUmvbigvsHM m eAiquxVddJwdDOzzLZikE941W TBhgZbpKbErtKIrO5byafZKIQ 1lOjwvdGQ+OBYtGKV7qEctIPw w ZHRjbU2rIKIsG6e8DjGhEhI8N PqpA0VvavK4PTNjfHKyWWTenP XCyF2gkvroq7bhavwwArFuEQO w FHo9GFm3OGYvaTkhWzGqOGQ9Q zB5CRV9mBLljB5baKgbbohkuV 9wOyc+RklOOjwvdGQ+PHRkIHN 0 cCbdAZvaNBTgyS7mETUwP1n4T aYgMuF7JDznY1AjyyB6DHRzfC RyLMRrsYDHxS9edsgbn2fmsrw g IiJeGMDrUWb3QXy3WJEtpWayC pWxSTK7JqG3KIZ7wSUbyR0thQ udeaiobO5yAyu+TVJOOjwvdGQ + DELyYZN2wUdnFQmeGGCdfQ8pU OHjM4j9TxQxDpE3QHnjJ4Jrmt E1MEUqvAHvGYFrmQXEuC3xjip j r5xiibmdPdLqKURzMJy9HGj1C TOyoVrsLdLyIKP2CkJ2FBB2kO YozT3fsGutbwhorB1aTol+UGF 5 GJG7PR56QL34H6HrLnnwlNHar +PHRhYmxlIHdpZHRoPScxMD SmHbCkdFmiXZ5uTs2lDELbBSG v [facility] (more content not included)... Normal [facility] Formson 08-25-2021 Forms [id number]#1.00CD:12 7 Normal [facility] Ambulatory Visit Summaryon 0 08-24-2021 Ambulatory Visit Summary SABI SANTAMARIA :1945 Visit Date:08/24/2021 Ambulatory Visit Instructions Your Diagnosis Gross hematuria UTI (urinary tract infection) Tests Performed Urnls Dip Stick Auto w/o Microscopy POC 33775 Your Care Team Attending Physician - Jose [...] Acevedo When: Only if needed Where: [address] [address] Medications What How Much When Instructions New cephalexin (Keflex 250 mg Cap) 1 Capsules By Mouth Every 6 hours Duration: 5 Days Pickup at [facility]/pharmacy #[id number] Unchanged acetaminophen (acetaminophen 500 mg Tab) Oral [...] physician if questions or concerns Pharmacy Information [facility]/pharmacy #[id number]: [address], [place] [id number] [phone] Test Results Urnls Dip Stick Auto w/o Microscopy POC 57843 (08/24/2021) Bilirubin Urine Dipstick - Negative Blood Urine Dipstick - Trace-intact Glucose Urine Dipstick - Negative Ketones Urine Dipstick - Negative Leukocytes Urine Dipstick - 3+ Large Nitrite Urine Dipst (more content not included)... Normal [facility] Patient Educationon 08-25-19 Patient Education Nutrition BMI [...] height. This can be done either in [employer] ([place] or metric measurements. Note that charts are available to help you find your BMI quickly and easily without having to do these calculations yourself. To calculate your BMI in [employer] ([place] measurements, your health care provider will: [...] problems. ? BMI can be measured using Cymraes measurements or metric measurements. ? To interpret [...] 02/13/2005 Document Revised: 05/17/2018 Document Reviewed: 04/17/2018 [employer] Patient Education ? 2019 [employer]. Urology Hematuria, Adult Hematuria is blood in [...] these instructions at home: Medicines ? Take uodp-ejr-hiickhr and pres (more content not included)... Normal [facility] Reminderson 08-24-2021 Reminders - From: Muna Diaz MA To: EU - Clinical; Sent: 08/24/2021 11:15:25 EST Show up: 08/26/2021 11:15:00 EST Subject: urine culture Reminder/Recall Urine [place] [facility] [place] Normal [facility] Urology Office/Clinic Noteon 08-24-2021 Urology Office/Clinic Note [...] information and history for this patient [facility] Admission I have reviewed and verified the [...] Patient seen for consult. Patient admitted to [facility] on 04/20/21 post CVA and hip fracture. [...] her daughter today. She is serving as spanish interpreter as well. As noted above she has [...] Jose Eugene, URL Only if needed [address] [place] [address] Additional Instructions: Patient Education BMI for [...] citrate) 20 (more content not included)... Normal [facility] Comment on above: Result Comment: Elec tronically Signed By: Jose SORIA MD\.br\Date and Time Signed: 08/24/21 11:09 EST\.br\Electronically Co-Signed By: Ashley Cotton MA\.br\Date and Time Co-Signed: 08/24/21 11:01 EST XR hip RT min 2V(w/wo pelvis )*on 06-29-2021 XR hip RT min 2V(w/wo pelvis)* [facility] [employer] Other XR hip RT min 2V(w/wo pelvis)* [facility] [employer] Other XR hip RT min 2V(w/wo pelvis)* [address] [facility] [employer] Other XR hip RT min 2V(w/wo pelvis)* [place] [address] [employer] Other XR hip RT min 2V(w/wo pelvis)* XRay Report [employer] Other XR hip RT min 2V(w/wo pelvis)* Signed [employer] Other XR hip RT min 2V(w/wo pelvis)* Patient: Sabi Santamaria MR#: [id number] [employer] Other XR hip RT min 2V(w/wo pelvis)* [id number] [employer] Other XR hip RT min 2V(w/wo pelvis)* : 1945 Acct:[id number] [employer] Other XR hip RT min 2V(w/wo pelvis)* Age/Sex: 76 / F ADM Date: 06/29/21 [employer] Other XR hip RT min 2V(w/wo pelvis)* Loc: [facility] Room: Type: [facility] [employer] Other XR hip RT min 2V(w/wo pelvis)* Attending Dr: Getachew Escalante DO [employer] Other XR hip RT min 2V(w/wo pelvis)* Ordering Provider: Getachew Escalante DO [employer] Other XR hip RT min 2V(w/wo pelvis)* Date of Service: 06/29/21 [employer] Other XR hip RT min 2V(w/wo pelvis)* XR/XR hip RT min 2V(w/wo pelvis)*: Other specified postprocedural states [employer] Other XR hip RT min 2V(w/wo pelvis)* Copies to: Getachew Escalante DO [employer] Other XR hip RT min 2V(w/wo pelvis)* XR hip RT min 2V(w/wo pelvis)* 06/29/2021 1:07 PM [employer] Other XR hip RT min 2V(w/wo pelvis)* SIGNS AND SYMPTOMS: Status post right total hip arthroplasty, follow-up [employer] Other XR hip RT min 2V(w/wo pelvis)* PROTOCOL: Frontal and frog-leg views of the right hip [employer] Other XR hip RT min 2V(w/wo pelvis)* COMPARISON: 05/12/2021 Miew Other XR hip RT min 2V(w/wo pelvis)* FINDINGS: [employer] Other XR hip RT min 2V(w/wo pelvis)* Hemiarthroplasty hardware is noted in the right hip without fracture or dislocation. Visualized [employer] Other XR hip RT min 2V(w/wo pelvis)* right hemipelvis is grossly intact. Surgical clips are noted in the right hemipelvis. [employer] Other XR hip RT min 2V(w/wo pelvis)* XR/XR hip RT min 2V(w/wo pelvis)* [employer] Other XR hip RT min 2V(w/wo pelvis)* IMPRESSION: [employer] Other XR hip RT min 2V(w/wo pelvis)* Hemiarthroplasty of right hip is redemonstrated without fracture, hardware complication, or [employer] Other XR hip RT min 2V(w/wo pelvis)* malalignment. [employer] Other XR hip RT min 2V(w/wo pelvis)* Impression dictated by: Carl Smith M.D.06/29/2021 1:54 PM [employer] Other XR hip RT min 2V(w/wo pelvis)* Dictation Location: [place] [address] [employer] Other XR hip RT min 2V(w/wo pelvis)* Transcribed By: PAMELA 06/29/21 [facility] [employer] Other XR hip RT min 2V(w/wo pelvis)* Dictated By: Carl Smith II, MD 06/29/21 [facility] [employer] Other XR hip RT min 2V(w/wo pelvis)* Signed By: [employer] Other XR hip RT min 2V(w/wo pelvis)* 06/29/21 [facility] [employer] Other Consultation Noteon 06-16-20 21 Consultation Note [id number]#[id number]:12 7 [facility] Insurance Correspondence Off iceon 04-29-2021 Insurance Correspondence Office [id number]#1.00CD:1 27 Normal [facility] Consultation Noteon 04-27-20 Consultation Note [id number]#[id number]:12 7 Normal [facility] Operative Reporton Operative Report [id number]#1.00CD:12 7 Normal [facility] RAD - CT Reporton 04-27-[address] RAD - CT Report [id number]#1.00CD:12 7 [facility] RAD - Ultrasound Reporton RAD - Ultrasound Report [id number]#1.00CD:12 7 [facility] Vital Signs Date Time Vital Sign Value Performing Clinician Facility 04-29-2024 16:12-0500 Body mass index (BMI) [Ratio] 23.81 kg/m2 Debra Walters CIVIL LABORATORY TECHNICIAN Work Phone: [facility] 04-29-2024 16:12-0500 Body weight 57.15 kg Debra Walters CIVIL LABORATORY TECHNICIAN Work Phone: [facility] 04-29-2024 16:12-0500 Diastolic blood pressure 74 mm[Hg] Debra Walters CIVIL LABORATORY TECHNICIAN Work Phone: [facility] 04-29-2024 16:12-0500 Heart rate 67 /min Debra Walters CIVIL LABORATORY TECHNICIAN Work Phone: [facility] 04-29-2024 16:12-0500 SaO2% (BldA) [Mass fraction] 97 % Debra Walters CIVIL LABORATORY TECHNICIAN Work Phone: [facility] 04-29-2024 16:12-0500 Systolic blood pressure 130 mm[Hg] Debra Walters CIVIL LABORATORY TECHNICIAN Work Phone: [facility] 02-27-2024 16:45-0400 Body height 154.9 cm Debra Walters CIVIL LABORATORY TECHNICIAN Work Phone: [facility] 02-27-2024 16:45-0400 Body mass index (BMI) [Ratio] 23.92 kg/m2 Debra Walters CIVIL LABORATORY TECHNICIAN Work Phone: [facility] 02-27-2024 16:45-0400 Body weight 57.42 kg Debra Walters CIVIL LABORATORY TECHNICIAN Work Phone: [facility] 02-27-2024 16:45-0400 Diastolic blood pressure 86 mm[Hg] Debra Walters CIVIL LABORATORY TECHNICIAN Work Phone: [facility] 02-27-2024 16:45-0400 Systolic blood pressure 140 mm[Hg] Debra Walters CIVIL LABORATORY TECHNICIAN Work Phone: [facility] 12-13-2023 15:07-0400 Body height 162.56 cm MD Merrill Doherty Work Phone: [facility] 12-13-2023 15:07-0400 Body mass index (BMI) [Ratio] 22.1 kg/m2 MD Merrill Doherty Work Phone: [facility] 12-13-2023 15:07-0400 Body temperature 97.5 [degF] MD Merrill Doherty Work Phone: [facility] 12-13-2023 15:07-0400 Body weight 58.51 kg MD Merrill Doherty Work Phone: [facility] 12-13-2023 15:07-0400 Diastolic blood pressure 70 mm[Hg] MD Merrill Doherty Work Phone: [facility] 12-13-2023 15:07-0400 Heart rate 65 /min MD Merrill Doherty Work Phone: [facility] 12-13-2023 15:07-0400 Respiratory rate 20 /min MD Merrill Doherty Work Phone: [facility] 12-13-2023 15:07-0400 SaO2% (BldA) [Mass fraction] 98 % MD Merrill Doherty Work Phone: [facility] 12-13-2023 15:07-0400 Systolic blood pressure 109 mm[Hg] MD Merrill Doherty Work Phone: [facility] 06-14-2023 15:02-0500 Body height 162.56 cm MD Merrill Doherty Work Phone: [facility] 06-14-2023 15:02-0500 Body temperature 97.9 [degF] MD Merrill Doherty Work Phone: [facility] 06-14-2023 15:02-0500 Body weight 59.42 kg MD Merrill Doherty Work Phone: [facility] 06-14-2023 15:02-0500 Diastolic blood pressure 94 mm[Hg] MD Merrill Doherty Work Phone: [facility] 06-14-2023 15:02-0500 Heart rate 98 /min MD Merrill Doherty Work Phone: [facility] 06-14-2023 15:02-0500 Respiratory rate 20 /min MD Merrill Doherty Work Phone: [facility] 06-14-2023 15:02-0500 SaO2% (BldA) [Mass fraction] 98 % MD Merrill Doherty Work Phone: [facility] 06-14-2023 15:02-0500 Systolic blood pressure 146 mm[Hg] MD Merrill Doherty Work Phone: [facility] 12-14-2022 15:27-0400 Body temperature 97.8 [degF] MD Merrill Doherty Work Phone: [facility] 12-14-2022 15:27-0400 Body weight 60.32 kg MD Merrill Doherty Work Phone: [facility] 12-14-2022 15:27-0400 Diastolic blood pressure 73 mm[Hg] MD Merrill Doherty Work Phone: [facility] 12-14-2022 15:27-0400 Heart rate 69 /min MD Merrill Doherty Work Phone: [facility] 12-14-2022 15:27-0400 Respiratory rate 16 /min MD Merrill Doherty Work Phone: [facility] 12-14-2022 15:27-0400 SaO2% (BldA) [Mass fraction] 97 % MD Merrill Doherty Work Phone: [facility] 12-14-2022 15:27-0400 Systolic blood pressure 115 mm[Hg] MD Merrill Doherty Work Phone: [facility] 05-31-2022 14:45-0500 Body temperature 97.8 [degF] MD Merrill Doherty Work Phone: [facility] 05-31-2022 14:45-0500 Body weight 59 kg MD Merrill Doherty Work Phone: [facility] 05-31-2022 14:45-0500 Diastolic blood pressure 67 mm[Hg] MD Merrill Doherty Work Phone: [facility] 05-31-2022 14:45-0500 Heart rate 61 /min MD Merrill Doherty Work Phone: [facility] 05-31-2022 14:45-0500 Respiratory rate 16 /min MD Merrill Doherty Work Phone: [facility] 05-31-2022 14:45-0500 SaO2% (BldA) [Mass fraction] 98 % MD Merrill Doherty Work Phone: [facility] 05-31-2022 14:45-0500 Systolic blood pressure 109 mm[Hg] MD Merrill Doherty Work Phone: [facility] 01-13-2022 14:22-0400 Body temperature 96.1 [degF] MD Merrill Doherty Work Phone: [facility] 01-13-2022 14:22-0400 Body weight 58.96 kg MD Merrill Doherty Work Phone: [facility] 01-13-2022 14:22-0400 Diastolic blood pressure 68 mm[Hg] MD Merrill Doherty Work Phone: [facility] 01-13-2022 14:22-0400 Heart rate 63 /min MD Merrill Doherty Work Phone: [facility] 01-13-2022 14:22-0400 Respiratory rate 16 /min MD Merrill Doherty Work Phone: [facility] 01-13-2022 14:22-0400 SaO2% (BldA) [Mass fraction] 98 % MD Merrill Doherty Work Phone: [facility] 01-13-2022 14:22-0400 Systolic blood pressure 102 mm[Hg] MD Merrill Doherty Work Phone: [facility] 11-04-2021 10:30-0400 Body height 154.94 cm Getachew Escalante Other [employer] Other Encounters Encounter Date Encounter Type Care Provider Facility Start: 04-29-2024 End: 04-29-2024 ambulatory DEBRA WALTERS Not Available Start: 04-29-2024 End: 04-29-2024 Office outpatient visit 15 minutes Debra Edward CIVIL LABORATORY TECHNICIAN Work Phone: [facility] [employer] Comment on above: Ischemic stroke (CMS /HCC) (Primary Dx); Paresthesia; Hyperlipidemia, unspecified hyperlipidemia type (CMS/HCC); Primary hypertension (CMS/HCC); Gait instability; 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 Start: 04-29-2024 End: 04-29-2024 Bamboo flowsheet Debra Walters CIVIL LABORATORY TECHNICIAN Work Phone: [employer] [facility] Start: 04-29-2024 End: 04-29-2024 Bamboo flowsheet Debra Walters CIVIL LABORATORY TECHNICIAN Work Phone: [employer] [facility] Start: 03-10-2024 End: 03-10-2024 ambulatory DEBRA WALTERS Not Available Start: 02-27-2024 End: 02-27-2024 Office outpatient visit 25 minutes Debra Edward CIVIL LABORATORY TECHNICIAN Work Phone: [employer] [facility] Comment on above: Ischemic stroke (CMS /HCC) (Primary Dx); Paresthesia; Hyperlipidemia, unspecified hyperlipidemia type (CMS/HCC); Primary hypertension (CMS/HCC); Gait instability; 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 Start: 02-27-2024 End: 02-27-2024 ambulatory DEBRA WALTERS Not Available Start: 02-27-2024 End: 02-27-2024 Bamboo flowsheet Debra Walters CIVIL LABORATORY TECHNICIAN Work Phone: [facility] Start: 02-27-2024 End: 02-27-2024 Bamboo flowsheet Debra Walters CIVIL LABORATORY TECHNICIAN Work Phone: [facility] Start: 12-13-2023 End: 12-13-2023 ambulatory MD Merrill Doherty Work Phone: [facility] Work Phone: Start: 12-13-2023 End: 12-13-2023 Patient encounter procedure MD Merrill Doherty Work Phone: [facility] Work Phone: Start: 12-13-2023 Registered Recurring MD Marika Doherty [facility] Work Phone: Start: 12-13-2023 ambulatory Merrill Doherty Facility: [facility] Start: 06-14-2023 End: 06-14-2023 ambulatory MD Merrill Doherty Work Phone: [facility] Work Phone: Start: 06-14-2023 End: 06-14-2023 Registered Recurring MD Merrill Doherty [facility] Phone[facility] Work Phone: Start: 12-14-2022 End: 12-14-2022 ambulatory MD Merrill Doherty Work Phone: [facility] Work Phone: Start: 12-14-2022 End: 12-14-2022 Registered Recurring MD Merrill Doherty [facility] Phone: [facility] Work Phone: Start: 09-16-2022 End: 09-17-2022 ambulatory ROBINSON COCO . Facility: Start: 05-31-2022 End: 05-31-2022 ambulatory MD Merrill Doherty Work Phone: [facility] Work Phone: Start: 05-31-2022 End: 05-31-2022 Registered Recurring MD Merrill Doherty [facility]: [facility] Start: 03-20-2022 End: 03-22-2022 Evaluation and management of inpatient DR MERRILL DOHERTY . Facility: Start: 01-13-2022 End: 01-13-2022 Registered Recurring MD Merrill Doherty Work Phone: [facility] Start: 12-20-2021 End: 12-29-2021 Evaluation and management of inpatient OBINNA GARRETT Facility:[facility] Start: 12-20-2021 End: 12-20-[address] OBINNA GARRETT . Facility: Start: 11-10-2021 End: 11-13-2021 Evaluation and management of inpatient DR MERRILL DOHERTY . Facility: Start: 11-04-2021 End: 11-04-2021 ambulatory Getachew Escalante Other [employer] Other Start: 11-04-2021 Office outpatient vi sit 15 minutes Getachew Escalante [facility] Start: 06-29-2021 End: 06-29-2021 ambulatory Getachew Escalante Other [employer] Other Start: 06-29-2021 Postop follow up vis [...] [address] [place] [address] Debra Walters NP [address] [place] [address] [facility] [place] [facility] Start: 04-01-2024 End: 04-01-2024 Patient encounter procedure 04/01/2024 4:00 PM EDT Office Visit [facility] [place] [address] [place] [address] Debra Walters NP [address] [place] [address] [facility] [place] [facility] Start: 03-10-2024 End: 03-10-2024 Clinical Support 03/10/2024 3:20 PM EDT Clinical Support [facility] [place] [address] [place] [address] [facility] [place] [facility] Start: 02-27-2024 End: 02-27-2024 Patient encounter procedure 02/27/2024 4:20 PM EDT Office Visit [facility] [place] [address] [place] [address] Debra Walters NP [address] [facility] [place] [address] [facility] Comment on above: Arrived Start: 02-27-2024 End: 02-26-2025 US.doppler Carotid arteries - bilateral Vascular US carotid artery duplex bilateral Imaging Routine Ischemic stroke (CMS/HCC) Expected: 02/27/2024 (Approximate), Expires: 02/26/2025 [facility] Work Phone: Comment on above: Expected: 02/27/2024 (Approximate), Expires: 02/26/2025 Start: 02-17-2024 Influenza vaccination Influenz a Vaccine (#1) [facility] Cancer Ag 125 [Units/volume] in Serum or Plasma [facility] Work Phone: Cancer Ag 125 [Units/volume] in Serum or Plasma [facility] Cancer Ag 125 [Units/volume] in Serum or Plasma [facility] Cancer Ag 125 [Units/volume] in Serum or Plasma [facility] Cancer Ag 125 [Units/volume] in Serum or Plasma [facility] Comprehensive metabo lic 1999 panel - Serum or Plasma [facility] Work Phone: Comprehensive metabo lic 1999 panel - Serum or Plasma [facility] Comprehensive metabo lic 1999 panel - Serum or Plasma [facility] Comprehensive metabo lic 1999 panel - Serum or Plasma [facility] Comprehensive metabo lic 1999 panel - Serum or Plasma [facility] CT Abdomen and Pelvi s W contrast IV [facility] Work Phone: CT Abdomen and Pelvi s W contrast IV [facility] CT Abdomen and Pelvi s W contrast IV [facility] CT Abdomen and Pelvi s WO and W contrast IV [facility] Immunizations Immunization Date Immunization Notes Care Provider Fa [facility] 04-04-2022 influenza virus vaccine, unspecified formulation Debra Walters NP Work Phone: [facility] 04-29-2021 Fluzone QIV High-Dos e 65YR+ MD Merrill Doherty Work Phone: [facility] 06-18-2019 influenza virus vaccine, unspecified formulation MD Merrill Doherty Work Phone: [facility] 06-18-2019 pneumococcal polysaccharide vaccine, 23 valent Getachew Escalante Other [facility] 06-18-2019 influenza, high dose seasonal, preservative-free Getachew Escalante Other [employer] Other Payers Date Payer Category Payer Private Health Insurance [employer] [id number] 2024 Unknown [employer] [id number] 2024-Present [address] [place] [address] [id number] 2021 Self-pay [id number] 2007 Medicare [id number] 1959 Medicare [id number] 1959 Unknown [id number] 1946 Unknown [id number] [id number]. 2.593 1946 Unknown [id number] [id number]. 2.593 1946 Unknown [id number] [id number]. 2.593 1946 Unknown [id number] [id number]. 2.593 1946 Unknown [id number] [id number]. 2.1259 1946 Unknown [id number] [id number]. 2.1259 1946 Unknown [id number] [id number]. 2.1259 1946 Unknown [id number] [id number]. 2.647 Unknown Private Pay [facility] [id number] Unknown [id number] [id number] Social History Date Type Detail Facility Start: 02-27-2024 End: 04-29-2024 Sex Assigned At [facility] [employer] Other Start: 01-13-2022 End: 12-27-2023 Tobacco smoking status NHIS Never smoked tobacco (finding) [facility] Start: 1945 Sex Assigned At Female F [facility] Start: 12-27-2023 Tobacco use and exposure Smokeless tobacco non-user [facility] Start: 03-06-2024 End: 04-29-2024 Alcoholic beverage intake Ex-drinker (finding) [facility] Start: 02-27-2024 End: 04-29-2024 History of Social function [facility] Start: 1945 Sex assigned at Not on file [facility] Start: 12-27-2023 Alcoholic beverage intake Lifetime non-drinker (finding) [facility] Medical Equipment Procedure Code Equipment Code Equipment Original Text Equipment Identifier Dates 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 Bipolar femoral head outer component, hemiarthroplasty ()[id number] FDA Start: 04-21-2021 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 Femoral head/stem prosthesis adaptor ()[id number] FDA Start: 04-21-2021 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 Press-fit femoral stem prosthesis ()[id number] FDA Start: 04-21-2021 Clinical Notes 11-06-2006 to [...] or concerns. The patient's primary language is Peruvian. The patient's daughter provided translation for today's appointment, stating she is fluent in both Cymraes and Peruvian. I did offer a professional toll transmission worker service. The patient and her daughter politely declined this. They understand that, by refusing a professional toll transmission worker, there is increased risk for miscommunication, misunderstanding, [...] Arthritis COVID-19 NSTEMI (non-ST elevated myocardial infarction) ([facility]) Sepsis ([facility]) Stroke ([facility]) UTI (urinary tract infection) 12/2022 Past Surgical [...] wrist extensors , wrist flexor , and washer and crusher tender strength 5/5. LUE strength deltoid , biceps , triceps , wrist extensors , wrist flexor , and washer and crusher tender strength 5/5. RLE strength iliopsoas, quadriceps, tibialis [...] reflex 2+. LLE Knee reflex 2+. Coordination: Jmeyuu-hi-laxh testing normal. Rapid alternating movements are normal. Gait: Steady with use of walker. Review and summary of old records: Carotid ultrasound at [facility] on 03/10/24: No hemodynamically significant stenosis noted. Mild intimal thickening. 1 to 29% stenosis of the right and left ICA. Antegrade flow of the right and left VA. Normal triphasic waveforms in the right and left SCA. Sodium level on 01/07/23: 138. ECHO on 01/04/23: No mention of mass or thrombus. EF 55% CT of the brain without contrast at [facility] on 01/04/23: Stable remote infarcts left [...] new neurologic deficits. Hyperlipidemia, unspecified hyperlipidemia type ([facility]/HCC) PLAN: - Follow up with primary care provider for management - Continue statin (prescription and management per PCP) Primary hypertension ([facility]) PLAN: - Follow up with primary care [...] new or worsening symptoms. Debra Walters NP [facility] Advanced Neurology documented in this encounter [facility] 02-27-2024 History of Presen t illness Narrative [...] appointment, stating she is fluent in both Cymraes and Peruvian. I did offer a professional toll transmission worker service. However, the patient and her daughter declined this. They understand that, by refusing a professional toll transmission worker, there is increased risk for miscommunication, misunderstanding, [...] Arthritis COVID-19 NSTEMI (non-ST elevated myocardial infarction) ([facility]) Sepsis ([facility]) Stroke ([facility]) UTI (urinary tract infection) 12/2022 Past Surgical [...] wrist extensors , wrist flexor , and washer and crusher tender strength 5/5. LUE strength deltoid , biceps , triceps , wrist extensors , wrist flexor , and washer and crusher tender strength 5/5. RLE strength iliopsoas, quadriceps, tibialis [...] reflex 2+. LLE Knee reflex 2+. Coordination: Agrulp-je-mytw testing normal. Rapid alternating movements are normal. Gait: Steady with use of walker. Review and summary of old records: Sodium level on 01/07/23: 138. ECHO on 01/04/23: No mention of mass or thrombus. EF 55% CT of the brain without contrast at [facility] on 01/04/23: Stable remote infarcts left [...] all orders for this visit: Ischemic stroke ([facility]) The patient has a history of multiple [...] - Carotid ultrasound Hyperlipidemia, unspecified hyperlipidemia type ([facility]) PLAN: - Follow up with primary care provider for management - Continue statin (prescription and management per PCP) Primary hypertension ([facility]) PLAN: - Follow up with primary care [...] new or worsening symptoms. Debra Walters NP [facility] Advanced Neurology documented in this encounter [facility] 02-27-2024 Instructions Debra Walters NP - 02/27/2024 4:20 PM EDT - Carotid ultrasound documented in this encounter [facility] 12-15-2022 Progress note Note Date/Time December 14, 2022 3:30pm [facility] [place] [address] Hem/Onc Follow Up Note - OP Signed Patient: Sabi Santamaria MR#: [id number] : 1945 Acct:[id number] Age/Sex: 77 / F Type: REG RCR Copies to: Merrill Doherty MD~ Subjective Date/Time of Service: Date of Service: 12/14/2022 Time of Service: 15:29 Chief Complaint: Patient is here today for a 6 month follow up visit and go overCT scan and labs. No new concerns HPI: 12/14/2022: Sabi is here for 6 month followup with daughter who acts as her toll transmission worker. She denies any abdominal pain or bloating [...] followup with daughter who acts as her toll transmission worker. Since last visit patient has not had [...] with limited ability to speak and understand Cymraes. 01/13/2022: Sabi is accompanied by her daughter who acts as her toll transmission worker. She was hospitalized at [facility] for a bowel obstruction about [...] 35-minute visit. 10/12/2021: This patient is primarily Peruvian-speaking and is accompanied by mary grace who acts as her toll transmission worker. She is here for transfer of care from Dr. Fernandez who has left the practice. She was hospitalized in early April 2021 for fractured right hip--s/p hemiarthroplasty 04/21/2022. Prior hysterectomy in the early at [facility], ovaries intact. During that hospital [...] daughter presents with her. She is her toll transmission worker. The patient had a hysterectomy at [facility]. I was told previously this was in [place]. Supposedly this was for uterine cancer. I do not know she had an oophorectomy. Below is the recent summary of findings while she was admitted after the hip fracture: Interval History: CA-125 is normal. Urology note and procedure is noted. Her CT scan is reviewedbelow: Patient: Sabi Santamaria MR#: [id number] : 1945 Acct:[id number] Age/Sex: 76 / F ADM Date: 1 Loc: 4N Room: 5L8620-2 Type: ADM IN Attending Dr: Jayden Abad [...] a 76-year-old female who does not speak Cymraes. She was found down on the floor after stroke. She has a history of a history of hysterectomy or some type of gynecologic surgery in [place] in the distant past. Her CT scan shows either a left-sided pelvic mass or left sided enlarged ovary. CA-125 is currently pending. As above she does not speak Cymraes. An spanish interpreter is not in the room. Her CT and reports are reviewed. She had a right femoral head fracture and is status post surgery. She is recovering well. - Summary of Therapies Summary of Therapies: 1. History of a history of hysterectomy or some type of gynecologic surgery in [facility] in about 1979, ovaries intact--unclear [...] PO DAILY 06/14/21 [History Confirmed 12/14/22] omega 9-ydc-mhx-fish oil 1,200 mg (144 mg-216 mg) capsule [...] Thin but not cachectic. Daughter acts as toll transmission worker. HEAD / FACE: Normocephalic. EYES: Pupils are [...] % (Auto) 56.9, Lymph % (Auto) 31.0, Ocean % (Auto) 8.4, Eos % (Auto) 3.1, Baso % (Auto) 0.6, Nucleat RBC Rel Count 0.2, Neut # (Auto) 2.8, Lymph # (Auto) 1.5, Ocean # (Auto) 0.4, Eos # (Auto) 0.1, [...] review her operative and pathological findings from [facility] where she had original hysterectomy in the [...] surgery. She was wheelchair-bound and in a usp. 10/12/2021: She transferred care to nm with initial visit 10/12/[address] Fernandez [...] by hospitalization for small bowel obstruction at [facility] which resolved with NG tube [...] this plan. 05/31/2022: Sabi presents with her tkryuwkq-qq-wox for follow-up. She no longer has any abdominal pain or distention and is eating a normal diet with no further episodes of small bowel obstruction. She does not have any detectable adenopathy by exam or by restaging 05/16/2022 CT abdomen and pelvis reviewed with the patient and her irebkyok-hk-etg today. She has unchanged cyst of the [...] develops clinical adenopathy. The patient and her ykcbksbs-pd-whj are in agreement with this plan over [...] type symptoms. She is no longer in [facility] and moved back into her home with [...] follow with symptoms and serial imaging. (6) Non-Cymraes speaking patient Patient expressed understanding and was able to give review of systems with limited Cymraes. Different family members served as translators and if we change number operator we will obtain a translation service for her follow-up appointments. - Time with Patient Time Spent with Patient (Follow Up Visit): 35 minutes - Review restaging images and reports, repeat Ca 125, symptoms and exam, surveillance plan Coordination of Care & Counseling Time: Greater than 50% of time spent with patient was for coordination of care (as documented) and buke-ew-khxx counseling of patient and/or family. Dictated By: Bonnie Hendricks MD DD/ [id number] Signed By: <Electronically signed by MD Bonnie Hendricks> 12/15/22 0901 [facility] Work Phone: 1(246) 985-177312-14-2022 Progress note Author Bonnie Hendricks [facility] May 31, 2022 4:00pm Note Date/Time May 31, 2022 2:47pm [facility] [place] [address] Hem/Onc Follow Up Note - OP Signed Patient: Sabi Santamaria MR#: [id number] : 1945 Acct:[id number] Age/Sex: 77 / F Type: REG RCR Copies to: Merrill Doherty MD~ Subjective Date/Time of Service: Date of Service: 05/31/2022 Time of Service: 14:46 Chief Complaint: Patient is here today for 5 month follow up visit and go over labs and CT scan. No new concerns HPI: 05/31/2022: Sabi is here for about 4 month followup with daughter who acts as her toll transmission worker. Since last visit patient has not had [...] with limited ability to speak and understand Cymraes. 01/13/2022: Sabi is accompanied by her daughter who acts as her toll transmission worker. She was hospitalized at [facility] for a bowel obstruction about [...] 35-minute visit. 10/12/2021: This patient is primarily Peruvian-speaking and is accompanied by mary grace who acts as her toll transmission worker. She is here for transfer of care from Dr. Fernnadez who has left the practice. She was hospitalized in early April 2021 for fractured right hip--s/p hemiarthroplasty 04/21/2022. Prior hysterectomy in the early at [facility], ovaries intact. During that hospital [...] daughter presents with her. She is her toll transmission worker. The patient had a hysterectomy at [facility]. I was told previously this was in [place]. Supposedly this was for uterine cancer. I do not know she had an oophorectomy. Below is the recent summary of findings while she was admitted after the hip fracture: Interval History: CA-125 is normal. Urology note and procedure is noted. Her CT scan is reviewedbelow: Patient: Sabi Santamaria MR#: [id number] : 1945 Acct:[id number] Age/Sex: 76 / F ADM Date: 1 Loc: 4 Room: [address] [place] [address] Type: ADM IN Attending Dr: Jayden Abad [...] a 76-year-old female who does not speak Cymraes. She was found down on the floor after stroke. She has a history of a history of hysterectomy or some type of gynecologic surgery in [place] in the distant past. Her CT scan shows either a left-sided pelvic mass or left sided enlarged ovary. CA-125 is currently pending. As above she does not speak Cymraes. An spanish interpreter is not in the room. Her CT and reports are reviewed. She had a right femoral head fracture and is status post surgery. She is recovering well. - Summary of Therapies Summary of Therapies: 1. History of a history of hysterectomy or some type of gynecologic surgery in [facility] in about 1979, ovaries intact--unclear [...] bisacodyl 10 mg rectal suppository [address] DAILY PRN Constipation #0 ea 05/23/21 [Rx [...] PO DAILY 06/14/21 [History Confirmed 05/31/22] omega 7-oki-mfv-fish oil 1,200 mg (144 mg-216 mg) capsule [...] Thin but not cachectic. Daughter acts as toll transmission worker. HEAD / FACE: Normocephalic. EYES: Pupils are [...] review her operative and pathological findings from [facility] where she had original hysterectomy in the [...] surgery. She was wheelchair-bound and in a usp. 10/12/2021: She transferred care to nm with initial visit 10/12/[address] Fernandez [...] by hospitalization for small bowel obstruction at [facility] which resolved with NG tube [...] plan. 05/31/2022: Kelly Oneil presents with her jcxsbbag-tg-cms for follow-up. She no longer has any abdominal pain or distention and is eating a normal diet with no further episodes of small bowel obstruction. She does not have any detectable adenopathy by exam or by restaging 05/16/2022 CT abdomen and pelvis reviewed with the patient and her ighzhyjn-un-vxx today. She has unchanged cyst of the [...] develops clinical adenopathy. The patient and her ifootfwr-rp-gsv are in agreement with this plan over [...] type symptoms. She is no longer in [facility] and moved back into her home with [...] follow with symptoms and serial imaging. (7) Non-Cymraes speaking patient Patient expressed understanding and was able to give review of systems with limited Cymraes. Different family members served as translators and if we change number operator we will obtain a translation service for her follow-up appointments. - Time with Patient Time Spent with Patient (Follow Up Visit): 35 minutes - Review restaging images and reports, repeat Ca 125, symptoms and exam, surveillance plan Coordination of Care & Counseling Time: Greater than 50% of time spent with patient was for coordination of care (as documented) and tsay-vp-biqs counseling of patient and/or family. Dictated By: Bonnie Hendricks MD DD/ [id number] Signed By: <Electronically signed by MD Bonnie Hendricks> 05/31/22 1600 [facility] Work Phone: 1(753) 274-596307-30-2022 Progress note Author Bonnie Hendricks [facility] January 14, 2022 12:30pm Note Date/Time January 13, 2022 2:33 pm [facility] [place] [address] Hem/Onc Follow Up Note - OP Signed Patient: Sabi Santamaria MR#: [id number] : 1945 Acct:[id number] Age/Sex: 76 / F Type: REG RCR Copies to: Merrill Doherty MD~ Subjective Date/Time of Service: Date of Service: 01/13/2022 Time of Service: 14:32 Chief Complaint: Patient is here for a follow up visit for pelvic mass and had alymph node biopsy ultrasound. She also was at [facility] for bowel obstruction and didnot have to do surgery and is doing well HPI: 01/13/2022: Sabi is accompanied by her daughter who acts as her toll transmission worker. She was hospitalized at [facility] for a bowel obstruction about [...] 35-minute visit. 10/12/2021: This patient is primarily Peruvian-speaking and is accompanied by mary grace who acts as her toll transmission worker. She is here for transfer of care from Dr. Fernandez who has left the practice. She was hospitalized in early April 2021 for fractured right hip--s/p hemiarthroplasty 04/21/2022. Prior hysterectomy in the early at [facility], ovaries intact. During that hospital [...] daughter presents with her. She is her toll transmission worker. The patient had a hysterectomy at [facility]. I was told previously this was in [place]. Supposedly this was for uterine cancer. I do not know she had an oophorectomy. Below is the recent summary of findings while she was admitted after the hip fracture: Interval History: CA-125 is normal. Urology note and procedure is noted. Her CT scan is reviewedbelow: Patient: Sabi Santamaria MR#: [id number] : 1945 Acct:[id number] Age/Sex: 76 / F ADM Date: 1 Loc: 4 Room: 0K5655-7 Type: ADM IN Attending Dr: Jayden Abad [...] a 76-year-old female who does not speak Cymraes. She was found down on the floor after stroke. She has a history of a history of hysterectomy or some type of gynecologic surgery in [place] in the distant past. Her CT scan shows either a left-sided pelvic mass or left sided enlarged ovary. CA-125 is currently pending. As above she does not speak Cymraes. An spanish interpreter is not in the room. Her CT [...] bisacodyl 10 mg rectal suppository [address] DAILY PRN Constipation #0 ea 05/23/21 [Rx [...] PO DAILY 06/14/21 [History Confirmed 11/09/21] omega 8-mts-ldr-fish oil 1,200 mg (144 mg-216 mg) capsule [...] Thin but not cachectic. Daughter acts as toll transmission worker. HEAD / FACE: Normocephalic. EYES: Pupils are [...] review her operative and pathological findings from [facility] where she had original hysterectomy in the [...] surgery. She was wheelchair-bound and in a usp. 10/12/2021: She transferred care to nm with initial visit 10/12/[address] Fernandez [...] by hospitalization for small bowel obstruction at [facility] which resolved with NG tube [...] type symptoms. She is no longer in [facility] and moved back into her home with [...] for coordination of care (as documented) and gmsw-tw-ecvu counseling of patient and/or family. Dictated By: Bonnie Hendricks MD DD/ 1432 Signed By: <Electronically signed by MD Bonnie Hendricks> 01/14/22 1230 [facility] Work Phone: 1(839) 974-757607-30-2022 NoteMR#: [id number] [facility] Pt. Name: Sabi Santamaria Admitted: 12/20/2021 Discharged: 12/29/2021 Date of : 1945 Physician: Minesh Daly M.D. DISCHARGE SUMMARY DISCHARGE ATTENDING: Minesh Daly M.D. PRINCIPAL DIAGNOSIS: Small bowel obstruction. SECONDARY DIAGNOSIS: None. HISTORY: This is 76-year-old female with past medical history of hypertension, hyperlipidemia, and CVA, was transferred from [facility] for small bowel obstruction. The patient complained [...] Davalos MD Date Trans: 01/14/2022 12:43 A/chen [id number] cc: Merrill Doherty M.D. [address] [place] [address] Evaluation [facility]* Encounter Date Diagnosis Assessment Notes [...] on mobility and with cane transition from [employer] Other 04-28-2022 Progress note Author Bonnie Hendricks [facility] October 13, 2021 11:29am Note Date/Time October 12, 2021 11: 53am [facility] at [address] [address] Hem/Onc Follow Up Note - OP Signed Patient: Sabi Santamaria MR#: [id number] : 1945 Acct:[id number] Age/Sex: 76 / F Type: REG RCR Copies to: Merrill Doherty MD~ Subjective Date/Time of Service: Date of Service: 10/12/2021 Time of Service: 11:53 Chief Complaint: Patient is a former patient of Dr Fernandez here for a 4 month follow up with scans for review. HPI: 10/12/2021: This patient is primarily Peruvian-speaking and is accompanied by mary grace who acts as her toll transmission worker. She is here for transfer of care from Dr. Fernandez who has left the practice. She was hospitalized in early April 2021 for fractured right hip--s/p hemiarthroplasty 04/21/2022. Prior hysterectomy in the early at [facility], ovaries intact. During that hospital [...] daughter presents with her. She is her toll transmission worker. The patient had a hysterectomy at [facility]. I was told previously this was in [place]. Supposedly this was for uterine cancer. I do not know she had an oophorectomy. Below is the recent summary of findings while she was admitted after the hip fracture: Interval History: CA-125 is normal. Urology note and procedure is noted. Her CT scan is reviewedbelow: Patient: Sabi Santamaria MR#: Neelam [id number] : 1945 Acct:[id number] Age/Sex: 76 / F ADM Date: Loc: 4 Room: [address] [place] [address] Type: ADM IN Attending Dr: Jayden Abad [...] a 76-year-old female who does not speak Cymraes. She was found down on the floor after stroke. She has a history of a history of hysterectomy or some type of gynecologic surgery in [place] in the distant past. Her CT scan shows either a left-sided pelvic mass or left sided enlarged ovary. CA-125 is currently pending. As above she does not speak Cymraes. An spanish interpreter is not in the room. Her CT [...] Negative for environmental allergies and food allergies. [facility] - History Attestation statement: The following information [...] bisacodyl 10 mg rectal suppository [address] DAILY PRN #0 ea 05/23/21 [Rx Confirmed [...] PO DAILY 06/14/21 [History Confirmed 10/12/21] omega 8-sqt-wsl-fish oil 1,200 mg (144 mg-216 mg) capsule [...] Thin but not cachectic. Son acts as toll transmission worker. HEAD / FACE: Normocephalic. EYES: Pupils are [...] review her operative and pathological findings from [facility] where she had original hysterectomy in the [...] surgery. She was wheelchair-bound and in a usp. She transferred care to nm with initial visit 10/12/[address] Fernandez [...] type symptoms. She is no longer in [facility] and moved back into her home with [...] for coordination of care (as documented) and plzy-jk-kuof counseling of patient and/or family. Dictated By: Bonnie Hendricks MD DD/ 1153 Signed By: <Electronically signed by MD Bonnie Hendricks> 10/13/21 1129 [facility] Work Phone: 1(337) 646-603601-12-2022 Evaluation note* Encounter Date Diagnosis Assessment Notes [...] as documented in the electronic medical record. [employer] Other 12-28-2021 Progress note Author Rachid Fernandez [facility] June 14, 2021 11:33am Note Date/Time June 14, 2021 11:28am [facility] [place] [address] Hem/Onc Follow Up Note - OP Signed Patient: Sabi Santamaria MR#: [id number] : 1945 Acct:[id number] Age/Sex: 76 / F Type: REG RCR [...] daughter presents with her. She is her toll transmission worker. The patient had a hysterectomy at [facility]. I was told previously this was in [place]. Supposedly this was for uterine cancer. I do not know she had an oophorectomy. Below is the recent summary of findings while she was admitted after the hip fracture: Interval History: CA-125 is normal. Urology note and procedure is noted. Her CT scan is reviewedbelow: Patient: Sabi Santamaria MR#: [id number] : 1945 Acct:[id number] Age/Sex: 76 / F ADM Date: 1 Loc: 4 Room: 6F0491-2 Type: ADM IN Attending Dr: Jayden Abad [...] a 76-year-old female who does not speak Cymraes. She was found down on the floor after stroke. She has a history of a history of hysterectomy or some type of gynecologic surgery in [place] in the distant past. Her CT scan shows either a left-sided pelvic mass or left sided enlarged ovary. CA-125 is currently pending. As above she does not speak Cymraes. An spanish interpreter is not inthe room. Her CT and reports are reviewed. She had a right femoral head fracture and is status post surgery. She is recovering well. Subjective/ROS - Narrative: She appears to be healing well. Talking with her daughter today the patient appears to be depressed. She is asking for medication. [facility] - Medical History Medical History: Medical History [...] bisacodyl 10 mg rectal suppository [address] DAILY PRN #0 ea 05/23/21 [Rx] carvedilol [...] review her operative and pathological findings from [facility] where she has surgery. I reviewed the differential with the patient and daughter. At this time I want to review the operative and pathological findings and repeat the CT abdomen pelvis in 4 months. Her CA-125 is normal. The patient is recovering from her stroke and surgery. She is wheelchair-bound and in a usp. (2) Depression The patient describes depressive type symptoms. I have recommended that she seethe attending physician and review her complaints with the attending physician for therapy. I have also recommended they call the denominational and have communion given to her as she has not had this for some time now. - Time with Patient Coordination of Care & Counseling Time: Greater than 50% of time spent with patient was for coordination of care (as documented) and hkzr-yw-xpjk counseling of patient and/or family. Dictated By: Rachid Fernandez MD DD/ 1126 Signed By: <Electronically signed by MD Rachid Fernandez> 06/14/21 2305 [facility] Work Phone: 1([phone]) [phone] History general Narrative - Reported* Type Description Date Medical History Rheumatoid arthritis Medical History hypertension Medical History arthritis Medical History cancer Surgical History L knee scope SBS 11/06/2006 Surgical History hysterectomy Surgical History bone spurs usama. heels Surgical History L TKA JAB 01/27/2019 [facility] Talk[employer] Other Evaluation noteNo [facility]Nort[facility] Talk[facility] Other Evaluation note* Diagnosis Onset Date Resolution Status Compression fracture of T9 vertebra chronic Depression chronic Pelvic mass chronic S/P hip hemiarthroplasty chr onic Ischemic stroke resolved [facility] Work Phone: Evaluation note* Diagnosis Onset Date Resolution Status Bowel wall thickening chroni c Compression fracture of T9 vertebra chronic Depression chronic Non-Cymraes speaking patient chronic Pelvic mass chronic S/P hip hemiarthroplasty chr onic Ischemic stroke resolved [facility] Work Phone: evaluation note* Diagnosis Onset Date Resolution Status Bowel wall thickening chroni c Compression fracture of T9 vertebra chronic Depression chronic Non-Cymraes speaking patient chronic Pelvic mass chronic S/P hip hemiarthroplasty chr onic Ischemic stroke resolved Bowel wall thickening chroni c Non-Cymraes speaking patient chronic Pelvic mass chronic S/P hip hemiarthroplasty chr onic Ischemic stroke resolved [facility] Work Phone: Evaluation note* Diagnosis Ischemic stroke [...] encounter [facility] note Author Bonnie Hendricks [facility] January 14, 2022 12:30pm Note Date/Time January 13, 2022 2:33 pm [facility] [place] [address] Hem/Onc Follow Up Note - OP Signed Patient: Sabi Santamaria MR#: [id number] : 1945 Acct:[id number] Age/Sex: 76 / F Type: REG RCR Copies to: Merrill Doherty MD~ Subjective Date/Time of Service: Date of Service: 01/13/2022 Time of Service: 14:32 Chief Complaint: Patient is here for a follow up visit for pelvic mass and had alymph node biopsy ultrasound. She also was at [facility] for bowel obstruction and didnot have to do surgery and is doing well HPI: 01/13/2022: Sabi is accompanied by her daughter who acts as her toll transmission worker. She was hospitalized at [facility] for a bowel obstruction about [...] 35-minute visit. 10/12/2021: This patient is primarily Peruvian-speaking and is accompanied by mary grace who acts as her toll transmission worker. She is here for transfer of care from Dr. Fernandez who has left the practice. She was hospitalized in early April 2021 for fractured right hip--s/p hemiarthroplasty 04/21/2022. Prior hysterectomy in the early at [facility], ovaries intact. During that hospital [...] daughter presents with her. She is her toll transmission worker. The patient had a hysterectomy at [facility]. I was told previously this was in [place]. Supposedly this was for uterine cancer. I do not know she had an oophorectomy. Below is the recent summary of findings while she was admitted after the hip fracture: Interval History: CA-125 is normal. Urology note and procedure is noted. Her CT scan is reviewedbelow: Patient: Sabi Santamaria MR#: [id number] : 1945 Acct:[id number] Age/Sex: 76 / F ADM Date: 1 Loc: 4N Room: 2F1891-4 Type: ADM IN Attending Dr: Jayden Abad [...] a 76-year-old female who does not speak Cymraes. She was found down on the floor after stroke. She has a history of a history of hysterectomy or some type of gynecologic surgery in [place] in the distant past. Her CT scan shows either a left-sided pelvic mass or left sided enlarged ovary. CA-125 is currently pending. As above she does not speak Cymraes. An spanish interpreter is not in the room. Her CT [...] Negative for environmental allergies and food allergies. [facility] - History Attestation statement: The following information [...] bisacodyl 10 mg rectal suppository [address] DAILY PRN Constipation #0 ea 05/23/21 [Rx [...] PO DAILY 06/14/21 [History Confirmed 11/09/21] omega 2-grz-dsz-fish oil 1,200 mg (144 mg-216 mg) capsule [...] Thin but not cachectic. Daughter acts as toll transmission worker. HEAD / FACE: Normocephalic. EYES: Pupils are [...] review her operative and pathological findings from [facility] where she had original hysterectomy in the [...] surgery. She was wheelchair-bound and in a usp. 10/12/2021: She transferred care to me with [...] by hospitalization for small bowel obstruction at [facility] which resolved with NG tube [...] type symptoms. She is no longer in [facility] and moved back into her home with [...] for coordination of care (as documented) and nbwb-kl-kutp counseling of patient and/or family. Dictated By: Bonnie Hendricks MD DD/ 1432 Signed By: <Electronically signed by MD Bonnie Hendricks> 01/14/22 1230 [facility] Work Phone: Progress note Author Bonnie Hendricks [facility] May 31, 2022 4:00pm Note Date/Time May 31, 2022 2:47pm [facility] [place] [address] Hem/Onc Follow Up Note - OP Signed Patient: Sabi Santamaria MR#: [id number] : 1945 Acct:[id number] Age/Sex: 77 / F Type: REG RCR Copies to: Merrill Doherty MD~ Subjective Date/Time of Service: Date of Service: 05/31/2022 Time of Service: 14:46 Chief Complaint: Patient is here today for 5 month follow up visit and go over labs and CT scan. No new concerns HPI: 05/31/2022: Sabi is here for about 4 month followup with daughter who acts as her toll transmission worker. Since last visit patient has not had [...] with limited ability to speak and understand Cymraes. 01/13/2022: Sabi is accompanied by her daughter who acts as her toll transmission worker. She was hospitalized at [facility] for a bowel obstruction about [...] 35-minute visit. 10/12/2021: This patient is primarily Peruvian-speaking and is accompanied by mary grace who acts as her toll transmission worker. She is here for transfer of care from Dr. Fernandez who has left the practice. She was hospitalized in early April 2021 for fractured right hip--s/p hemiarthroplasty 04/21/2022. Prior hysterectomy in the early at [facility], ovaries intact. During that hospital [...] daughter presents with her. She is her toll transmission worker. The patient had a hysterectomy at [facility]. I was told previously this was in [place]. Supposedly this was for uterine cancer. I do not know she had an oophorectomy. Below is the recent summary of findings while she was admitted after the hip fracture: Interval History: CA-125 is normal. Urology note and procedure is noted. Her CT scan is reviewedbelow: Patient: Sabi Santamaria MR#: [id number] : 1945 Acct:[id number] Age/Sex: 76 / F ADM Date: 1 Loc: Room: [address] [place] [address] Type: ADM IN Attending Dr: Jayden Abad [...] a 76-year-old female who does not speak Cymraes. She was found down on the floor after stroke. She has a history of a history of hysterectomy or some type of gynecologic surgery in [place] in the distant past. Her CT scan shows either a left-sided pelvic mass or left sided enlarged ovary. CA-125 is currently pending. As above she does not speak Cymraes. An spanish interpreter is not in the room. Her CT and reports are reviewed. She had a right femoral head fracture and is status post surgery. She is recovering well. - Summary of Therapies Summary of Therapies: 1. History of a history of hysterectomy or some type of gynecologic surgery in [facility] in about 1979, ovaries intact--unclear [...] Negative for environmental allergies and food allergies. [facility] - History Attestation statement: The following information [...] bisacodyl 10 mg rectal suppository [address] DAILY PRN Constipation #0 ea 05/23/21 [Rx [...] PO DAILY 06/14/21 [History Confirmed 05/31/22] omega 3-ozf-coa-fish oil 1,200 mg (144 mg-216 mg) capsule [...] Thin but not cachectic. Daughter acts as toll transmission worker. HEAD / FACE: Normocephalic. EYES: Pupils are [...] review her operative and pathological findings from [facility] where she had original hysterectomy in the [...] surgery. She was wheelchair-bound and in a usp. 10/12/2021: She transferred care to me with [...] by hospitalization for small bowel obstruction at [facility] which resolved with NG tube [...] plan. 05/31/2022: Kelly Oneil presents with her megojiqx-en-gpl for follow-up. She no longer has any abdominal pain or distention and is eating a normal diet with no further episodes of small bowel obstruction. She does not have any detectable adenopathy by exam or by restaging 05/16/2022 CT abdomen and pelvis reviewed with the patient and her ydhzzwox-gx-rwc today. She has unchanged cyst of the [...] develops clinical adenopathy. The patient and her whmgxglk-tm-oei are in agreement with this plan over [...] type symptoms. She is no longer in [facility] and moved back into her home with [...] follow with symptoms and serial imaging. (7) Non-Cymraes speaking patient Patient expressed understanding and was able to give review of systems with limited Cymraes. Different family members served as translators and if we change number operator we will obtain a translation service for her follow-up appointments. - Time with Patient Time Spent with Patient (Follow Up Visit): 35 minutes - Review restaging images and reports, repeat Ca 125, symptoms and exam, surveillance plan Coordination of Care & Counseling Time: Greater than 50% of time spent with patient was for coordination of care (as documented) and epbb-zn-twnb counseling of patient and/or family. Dictated By: Bonnie Hendricks MD DD/ 1446 Signed By: <Electronically signed by MD Bonnie Hendricks> 05/31/22 1600 [facility] Work Phone: Summary Purpose Family History [...] g Compression fracture of T9 vertebra Depression Non-Cymraes speaking patient Pelvic mass S/P hip hemiarthroplasty Ischemic stroke Chief Complaint PET SCAN F/U Reason for Visit Bowel wall thickenin g Compression fracture of T9 vertebra Depression Non-Cymraes speaking patient Pelvic mass S/P hip hemiarthroplasty Ischemic stroke Bowel wall thickening Non-Cymraes speaking patient Pelvic mass S/P hip hemiarthroplasty Ischemic stroke Reason for Referral Specialty Diagnoses / Procedures Referred By Garrett t Referred To Contact Radiology Diagnoses Ischemic stroke (CMS/HCC) Procedures Vascular US carotid artery duplex bilateral Debra Walters, SHANT [address] [place] [phone] Referral ID Status Reason Start Date Expiration Date V isits Requested Visits Authorized [id number] Authorized 02/27/2024 08/25/2024 1 1 Additional Source Comments INFORMATION SOURCE (unrecogn ized section and content) DATE CREATED AUTHOR 09/11/2021 [place] [facility] DATE CREATED AUTHOR AUTHOR'S ORGANIZ ATION 01/19/2022 [facility] DATE CREATED AUTHOR AUTHOR'S ORGANIZ ATION 09/20/2022 [facility] DATE CREATED AUTHOR AUTHOR'S ORGANIZ ATION 12/16/2023 [facility] DATE CREATED AUTHOR AUTHOR'S ORGANIZ ATION 05/01/2024 [facility] EPIC REASON FOR [...] BE BASED ON THE PRIMARY CLINICAL RECORDS. [employer] provides no warranty or guarantee of the accuracy or completeness of information in this document.
== END 2024-07-23 16:25 | disposition home or self-care (01) ==
LOC: RAD 16:26
PROVIDERS: PCP Family Medicine; Visit Provider Family Medicine
DX: M79.672 Pain in left foot (principal); M19.072 Primary osteoarthritis, left ankle and foot
CPT/HCPCS: 73630

== ENCOUNTER 2024-12-03 18:19 | Emergency (ER) | payer MEDICARE, OTHER, SELFPAY ==
[2024-12-03] VITALS (16 sets, daily range): BP systolic 115–137; BP diastolic 67–86; PULSE 87–122; TEMP 36.6–37.7; O2SAT 94–97; BMI 25.0
[2024-12-03 19:27] LABS: Bilirubin Urine NEGATIVE (NEGATIVE); Blood Urine TRACE-I (NEGATIVE); Clarity Urine CLEAR (CLEAR); Color Urine LT. YELLOW (YELLOW); Glucose Urine UA NEGATIVE (NEGATIVE); Ketones Urine NEGATIVE (NEGATIVE); Leukocyte Esterase Urine TRACE (NEGATIVE); Nitrite Urine NEGATIVE (NEGATIVE); Protein Urine NEGATIVE (NEG/TRACE); Specific Gravity Urine <=1.005 (1.005-1.025); Urobilinogen Urine 0.2 EU/dL (0.2-1.0)
[2024-12-03 19:41] LABS: Bacteria Urine TRACE #/HPF (NONE SEEN); Cast Seen? NONE SEEN #/LPF (NONE SEEN); Crystals Seen? None Seen #/HPF (None Seen); Mucus Urine NONE SEEN (NONE SEEN); RBC Urine 0-2 #/HPF (0-2); Squamous Epithelial Cell Urine FEW #/LPF (NONE/RARE); Urine Culture Indicated YES-FRMC
--- NOTE | 2024-12-03 19:52 | XR_ITS ---
[address] [address] Patient Name: SABI SANTAMARIA MRN: [id number] date: 1945 Sex: F Assigned Patient Location: ED.MAIN Current Patient Location: ED.MAIN Accession/Order Number: [id number] Exam Date: 12/03/2024 20:59 Report Date: 12/03/2024 21:02 At the request of: ALMA COOPER MD Procedure: XR chest 1V XR chest 1V 12/03/2024 8:46 PM SIGNS AND SYMPTOMS: ^tachycardia PROTOCOL: Frontal radiograph of the chest COMPARISON: 07/08/2024 FINDINGS: The trachea is midline. The heart and mediastinal structures are within normal limits. The lung parenchyma is clear. The bony thorax is intact. There is a dextro convex curvature of the thoracic spine. XR/XR chest 1V IMPRESSION: No acute cardiopulmonary pathology. Impression dictated by: Victor M Smith M.D. 12/03/2024 9:02 PM Dictation Location: [place] [address] Electronically authenticated by: [id number] Y Date: 12/03/2024 21:02
--- NOTE | 2024-12-03 19:52 | CT_ITS ---
The [address] [address] Patient Name: SABI SANTAMARIA MRN: [id number] date: 1945 Sex: F Assigned Patient Location: ED.MAIN Current Patient Location: ED.MAIN Accession/Order Number: [id number] Exam Date: 12/03/2024 21:11 Report Date: 12/03/2024 21:20 At the request of: ALMA COOPER MD Procedure: CT facial bones wo con CT facial bones wo con 12/03/2024 8:46 PM SIGNS AND SYMPTOMS: ^headache , recent dental abscess TECHNIQUE: Multidetector CT axial slices of the facial bones were obtained. Helical, sagittal, coronal, and 3-D reconstructions were performed and viewed on a separate workstation and reviewed to further define anatomy and possible pathology. CT was performed with one or more of the following dose reduction techniques: Automated exposure control, adjustment of the mA and/or kV according to patient size, or use of iterative reconstruction technique. COMPARISON: None. FINDINGS: Fracture: None. Paranasal sinuses and mastoids: Mucosal thickening is in maxillary sinus. Soft tissue swelling: None. Globes: Intact. Upper aerodigestive tract: Within normal limits. Joints: Intact. Temporal mandibular joints: Degenerative changes are noted in the temporomandibular joints. Infratemporal fossa: Within normal limits. Upper cervical spine: Degenerative changes are noted in the lateral axial joint and craniocervical junction. Degenerative changes are noted throughout the visualized upper cervical spine. CT/CT facial bones wo con IMPRESSION: No evidence of fracture or dislocation. No significant soft tissue swelling to suggest cellulitis or abscess. Degenerative changes are noted in the temporomandibular joints, the atlantoaxial joint, craniocervical junction, and the upper cervical spine. Mucosal thickening is noted in the right maxillary sinus. Impression dictated by: Victor M Smith M.D. 12/03/2024 9:20 PM Dictation Location: [place] [address] Electronically authenticated by: [id number] Y Date: 12/03/2024 21:20
--- NOTE | 2024-12-03 19:52 | CT_ITS ---
The [address] [address] Patient Name: SABI SANTAMARIA MRN: [id number] date: 1945 Sex: F Assigned Patient Location: ED.MAIN Current Patient Location: ED.MAIN Accession/Order Number: [id number] Exam Date: 12/03/2024 21:02 Report Date: 12/03/2024 21:11 At the request of: ALMA COOPER MD Procedure: CT head/brain wo con CT head/brain wo con 12/03/2024 8:46 PM SIGNS AND SYMPTOMS: Headache, tachycardia TECHNIQUE:Multi-detector CT axial slices of the brain were obtained without IV contrast. CT was performed with one or more of the following dose reduction techniques: Automated exposure control, adjustment of the mA and/or kV according to patient size, or use of iterative reconstruction technique. COMPARISON: 07/08/2024 FINDINGS: There is no shift of the midline structures, acute intracranial bleeding, mass effects, or evidence of acute ischemia. 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 There is gliosis and encephalomalacia in the left occipital lobe consistent with a remote infarct. The ventricular system is normal in size. The brainstem and the cerebellum are unremarkable. The visualized intraorbital contents, the visualized paranasal sinuses, and the infratemporal soft tissues show no acute abnormality. The osseous structures in the skull base and the calvarium show no abnormality. CT/CT head/brain wo con IMPRESSION: No acute intracranial pathology. There is gliosis and encephalomalacia in the left occipital lobe consistent with a remote infarct. 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 Impression dictated by: Victor M Smith M.D. 12/03/2024 9:11 PM Dictation Location: [place] [address] Electronically authenticated by: [id number] Y Date: 12/03/2024 21:11
--- NOTE | 2024-12-03 19:55 | ECG_ITS ---
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 Measurements Intervals [place] Rate: 98 P: 32 OR: 140 QRS: 55 QRSD: 86 T: 16 QT: 336 QTc: 392 Interpretive Statements 1100 Sinus rhythm 9110 normal ECG Compared to ECG 07/08/2024 13:38:53 Sinus tachycardia no longer present Myocardial infarct finding no longer present Electronically Signed On 12-04-2024 17:47:39 EDT by TEE LANDAVERDE M.D.
--- NOTE | 2024-12-03 19:55 | ED.GENADUL1 ---
Documented by User: Wolfgang Culp MD 12/03/24 22:24 HPI HPI - General Adult General Chief complaint: Urogenital-Female Stated complaint: UTI Time Seen by Provider: 12/03/24 18:53 Source: patient Mode of arrival: Wheelchair Limitations: no limitations History of Present Illness HPI narrative: history limited by language barrier. Daughter speaks fluent sri lankan and is interpreting. Patient complains of head. whole head. Has not had head ache like this for long time. Recently seen by her PCP for what was diagnosed as dental abscess and treated with Augmentin. Patient does admit her dental pain and associated swelling are better. No obvious swelling at this time. She also complained of discomfort with urination Does feel discomfort with urination has improved some with Augmentin. She was prescribed 3 days course of Augmentin and this is her last day.. No fever or chills or nausea. Lastly complains of heart racing . No chest pain Related Data Home Medications ?Medication ?Instructions ?Recorded ?Confirmed aspirin 81 mg chewable tablet 1 tab PO DAILY 01/04/23 07/08/24 (Aspirin Childrens) atorvastatin 80 mg tablet 80 mg PO .qhs 01/04/23 07/08/24 cetirizine 10 mg tablet (24Hour 10 mg PO DAILY PRN allergy symptoms 01/04/23 07/08/24 Allergy) melatonin 5 mg tablet 5 mg PO .HS PRN sleep 01/04/23 07/08/24 carvedilol 6.25 mg tablet 6.25 mg PO BID 07/08/24 07/08/24 diclofenac sodium 75 mg 75 mg PO Q12H PRN pain 07/08/24 07/08/24 tablet,delayed release amoxicillin 875 mg-potassium 1 tab PO TID 12/03/24 12/03/24 clavulanate 125 mg tablet Previous Rx's ?Medication ?Instructions ?Recorded albuterol sulfate 90 mcg/actuation 2 puff inhalation Q4H PRN Dyspnea 01/07/23 aerosol inhaler #8.5 grams Allergies Allergy/AdvReac Type Severity Reaction Status Date / Time No Known Drug Allergies Allergy Verified 12/03/24 18:27 Opioid HPI Opioid Management Most Recent Opioid Data: Last Pain Scale 0 07/09/24, 15:24 Last ORT Total Score 0 07/08/24, 17:38 Last ORT Risk Category Low Risk 07/08/24, 17:38 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) Family History (Updated 07/08/24 @ 19:05 by Debra Johnson) Mother Family history of diabetes mellitus Family history of hypertension Social History (Updated 07/08/24 @ 19:06 by Debra Johnson) Within the past year, how often did you have a drink containing alcohol: never Within the past year, how often did you have six or more drinks on one occasion: never Score interpretation: A score less than 3 is consistent with normal alcohol consumption. Smoking status: Never smoker Second hand tobacco smoke exposure: No Non-prescribed substance use: denies use Previous occupational history: retired Known occupational exposures/hazards: No Highest level of school completed/degree received: 8th grade Do you want help with school or training: No Are you now , , , , never or living with a partner: In a typical week, how many times do you talk on the telephone with family, friends, or neighbors: 3 or more times per week How often do you get together with friends or relatives: 3 or more times per week How often do you attend mormonism or bahai services: never Do you belong to any clubs or organizations such as mormonism groups unions, fraternal or athletic groups, or school groups: no Total score: 1 Score interpretation: A score of less than or equal to 1 indicates the most socially isolated. Little interest or pleasure in doing things: not at all Feeling down, depressed, or hopeless: not at all Feel stressed/tense/nervous/anxious/difficulty sleeping: not at all Life stressors: unknown source of stress Due to disability, difficulty making decisions: No Do you think of yourself as: straight/heterosexual Gender Identity: female Exam Constitutional Vital Signs, click to edit/add: Last Vital Signs Temp 97.9 F 12/03/24 23:10 Pulse 87 12/03/24 23:10 Resp 19 12/03/24 23:10 BP 119/71 12/03/24 23:10 Pulse Ox 94 L 12/03/24 23:10 Common normals: no apparent distress, average body habitus, healthy appearing, alert and well nourished HENMN Common normals: normocephalic and head/scalp atraumatic Eye Common normals: EOMs intact bilaterally Respiratory Common normals: normal respiratory effort, no retractions, no use of accessory muscles and clear to auscultation bilaterally Cardio Common normals: regular rate, regular rhythm, S1 normal heart sound and S2 normal heart sound GI Common normals: Normal to inspection, nondistended, normoactive bowel sounds present, soft to palpation and non-tender Extremity Common normals: normal to inspection and full ROM Neuro Common normals: CN's II-XII intact bilaterally, moves all extremities, no focal motor deficits and no sensory deficits noted Psych Appearance: grossly normal Course Vital Signs Vital signs: Vital Signs Temperature 99.8 F 12/03/24 18:27 Pulse Rate 122 H 12/03/24 18:27 Respiratory Rate 20 12/03/24 18:27 Blood Pressure 134/81 12/03/24 18:27 Pulse Oximetry 95 12/03/24 18:27 Temperature 97.9 F 12/03/24 23:10 Pulse Rate 87 12/03/24 23:10 Respiratory Rate 19 12/03/24 23:10 Blood Pressure 119/71 12/03/24 23:10 Pulse Oximetry 94 L 12/03/24 23:10 Medical Decision Making [facility] Narrative Medical decision making narrative: patient presents with multiple complaints. Difficult history due to language barrier but daughter was helpful as brand sales manager. Patient complains of headache. Apparently similar headache in the past . Also dysuria that has improved some since she was prescribed Augmentin by her PCP for dental abscess. No complaint related to her tooth as it is better. 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 CT facial bones with mucosal thickening. Patient treated with solumedrol and magnesium and her headache is nearly gone. UA is positive and cx sent. Will have her continue Augmentin as her urine symptoms have improved also. Lab Data Labs: Lab Results 12/03/24 12/03/24 Range/Units 19:08 21:07 WBC 11.4 H (4.0-11.0) 10^3/uL RBC 4.28 (4.20-5.40) 10^6/uL Hgb 12.1 (12.0-16.0) g/dL Hct 36.9 (36.0-48.0) % MCV 86.2 (81.0-99.0) fL MCH 28.3 (26.7-34.0) pg MCHC 32.8 (29.9-35.2) g/dL RDW 15.8 H (11.0-15.0) % Plt Count 295 (150-450) 10^3/uL MPV 8.9 L (9.5-13.5) fL Neut % (Auto) 77.1 H (43.0-75.0) % Lymph % (Auto) 13.9 L (20.5-60.0) % Gaston % (Auto) 8.0 (1.7-12.0) % Eos % (Auto) 0.5 L (0.9-7.0) % Baso % (Auto) 0.2 (0.2-2.0) % Neut # (Auto) 8.8 H (1.4-6.5) 10^3/uL Lymph # (Auto) 1.6 (1.2-3.8) 10^3/uL Gaston # (Auto) 0.9 H (0.3-0.8) 10^3/uL Eos # (Auto) 0.1 (0.0-0.7) 10^3/uL Baso # (Auto) 0.0 (0.0-0.1) 10^3/uL Abs Immat Gran (auto) 0.03 (0.00-0.03) 10^3/uL Imm/Tot Granulo (auto) 0.3 (0.0-0.5) % Sodium 135 L (136-145) mmol/L Potassium 3.6 (3.5-5.1) mmol/L Chloride 99 (98-107) mmol/L Carbon Dioxide 27.1 (21.0-32.0) mmol/L Anion Gap 12.5 BUN 16.0 (7.0-18.0) mg/dL Creatinine 0.67 (0.55-1.02) mg/dL Est GFR ( Amer) >60 (>=60 mL/min/1.73m^2) Est GFR (Non-Af Amer) >60 (>=60 mL/min/1.73m^2) BUN/Creatinine Ratio 23.9 Glucose 124 H (74-106) mg/dL Calcium 9.2 (8.5-10.1) mg/dL Troponin I High Sens 6.5 (4.0-51.3) pg/mL Urine Color Lt. yellow (YELLOW) Urine Clarity Clear (CLEAR) Urine pH 7.0 (5.0-9.0) Ur Specific Leslie <=1.005 A (1.005-1.025) Urine Protein Negative (NEG/TRACE) mg/dL Urine Glucose (UA) Negative (NEGATIVE) mg/dL Urine Ketones Negative (NEGATIVE) mg/dL Urine Occult Blood Trace-i (NEGATIVE) Urine Nitrite Negative (NEGATIVE) Urine Bilirubin Negative (NEGATIVE) Urine Urobilinogen 0.2 (0.2-1.0) EU/dL Ur Leukocyte Esterase Trace A (NEGATIVE) Urine RBC 0-2 (0-2) #/HPF Urine WBC 5-10 A (NONE SEEN) #/HPF Ur Squamous Epith Cells Few A (NONE/RARE) #/LPF Urine Crystals None seen (None Seen) #/HPF Urine Bacteria Trace A (NONE SEEN) #/HPF Urine Casts None seen (NONE SEEN) #/LPF Urine Mucus None seen (NONE SEEN) Ur [place] [place] Chest x-ray: Radiologist's impression: ITS Impressions Chest X-Ray 12/03/24 19:52 IMPRESSION: No acute cardiopulmonary pathology. Impression dictated by: Victor M Smith M.D. 12/03/2024 9:02 PM Dictation Location: [facility] Electronically authenticated by: [id number] Y Date: 12/03/2024 21:[address] 12/03/24 19:52 IMPRESSION: No evidence of fracture or dislocation. No significant soft tissue swelling to suggest cellulitis or abscess. Degenerative changes are noted in the temporomandibular joints, the atlantoaxial joint, craniocervical junction, and the upper cervical spine. Mucosal thickening is noted in the right maxillary sinus. Impression dictated by: Victor M Smith M.D. 12/03/2024 9:20 PM Dictation Location: [id number] Electronically authenticated by: [id number] Y Date: 12/03/2024 21:[address] 12/03/24 19:52 IMPRESSION: No acute intracranial pathology. There is gliosis and encephalomalacia in the left occipital lobe consistent with a remote infarct. 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 Impression dictated by: Victor M Smith M.D. 12/03/2024 9:11 PM Dictation Location: [place] [address] Electronically authenticated by: [id number] Y Date: 12/03/2024 21:11 Discharge Plan Discharge Chief Complaint: Urogenital-Female Clinical Impression: Headache, Acute UTI Patient Disposition: Home, Self-Care Prescriptions / Home Meds: No Action melatonin 5 mg tablet 5 mg PO .HS PRN (Reason: sleep) aspirin [Aspirin Childrens] 81 mg tablet,chewable 1 tab PO DAILY atorvastatin 80 mg tablet 80 mg PO .qhs cetirizine [24Hour Allergy] 10 mg tablet 10 mg PO DAILY PRN (Reason: allergy symptoms) albuterol sulfate 90 mcg/actuation Hfa Aerosol Inhaler 2 puff inhalation Q4H PRN (Reason: Dyspnea) Qty: 8.5 0RF Patient Comments: son does not know if she has this carvedilol 6.25 mg tablet 6.25 mg PO BID diclofenac sodium 75 mg tablet,delayed release (DR/EC) 75 mg PO Q12H PRN (Reason: pain) amoxicillin-pot clavulanate 875-125 mg tablet 1 tab PO TID Print Language: Sammarinese Instructions: Acute Headache (ED), Urinary Tract Infection in Older Adults (ED) Additional Instructions: follow up with Dr Doherty later this week or early next week Referrals: Willi Doherty MD [Primary Care Provider, Family Practice] - 1 week Discharge Date/Time: 12/03/24 23:23 Documented by User: Rickey Grady MD 12/08/24 09:31 HPI HPI - General Adult General Chief complaint: Urogenital-Female Stated complaint: UTI Time Seen by Provider: 12/03/24 18:53 Related Data Home Medications ?Medication ?Instructions ?Recorded ?Confirmed aspirin 81 mg chewable tablet 1 tab PO DAILY 01/04/23 07/08/24 (Aspirin Childrens) atorvastatin 80 mg tablet 80 mg PO .qhs 01/04/23 07/08/24 cetirizine 10 mg tablet (24Hour 10 mg PO DAILY PRN allergy symptoms 01/04/23 07/08/24 Allergy) melatonin 5 mg tablet 5 mg PO .HS PRN sleep 01/04/23 07/08/24 carvedilol 6.25 mg tablet 6.25 mg PO BID 07/08/24 07/08/24 diclofenac sodium 75 mg 75 mg PO Q12H PRN pain 07/08/24 07/08/24 tablet,delayed release amoxicillin 875 mg-potassium 1 tab PO TID 12/03/24 12/03/24 clavulanate 125 mg tablet Previous Rx's ?Medication ?Instructions ?Recorded albuterol sulfate 90 mcg/actuation 2 puff inhalation Q4H PRN Dyspnea 01/07/23 aerosol inhaler #8.5 grams Allergies Allergy/AdvReac Type Severity Reaction Status Date / Time No Known Drug Allergies Allergy Verified 12/03/24 18:27 Opioid HPI Opioid Management Most Recent Opioid Data: Last Pain Scale 0 07/09/24, 15:24 Last ORT Total Score 0 07/08/24, 17:38 Last ORT Risk Category Low Risk 07/08/24, 17:38 [facility] Medical History Surgical History (Updated 01/04/23 @ 13:49 by Jillian Ford) H/O: hysterectomy ?Z90.710 - Acquired absence of both cervix and uterus (ICD-10) Family History (Updated 07/08/24 @ 19:05 by Debra Johnson) Mother Family history of diabetes mellitus Family history of hypertension Social History (Updated 07/08/24 @ 19:06 by Debra Johnson) Within the past year, how often did you have a drink containing alcohol: never Within the past year, how often did you have six or more drinks on one occasion: never Score interpretation: A score less than 3 is consistent with normal alcohol consumption. Smoking status: Never smoker Second hand tobacco smoke exposure: No Non-prescribed substance use: denies use Previous occupational history: retired Known occupational exposures/hazards: No Highest level of school completed/degree received: 8th grade Do you want help with school or training: No Are you now , , , , never or living with a partner: In a typical week, how many times do you talk on the telephone with family, friends, or neighbors: 3 or more times per week How often do you get together with friends or relatives: 3 or more times per week How often do you attend mormonism or bahai services: never Do you belong to any clubs or organizations such as mormonism groups unions, [employer] or athletic groups, or school groups: no Total score: 1 Score interpretation: A score of less than or equal to 1 indicates the most socially isolated. Little interest or pleasure in doing things: not at all Feeling down, depressed, or hopeless: not at all Feel stressed/tense/nervous/anxious/difficulty sleeping: not at all Life stressors: unknown source of stress Due to disability, difficulty making decisions: No Do you think of yourself as: straight/heterosexual Gender Identity: female Exam Constitutional Vital Signs, click to edit/add: Last Vital Signs Temp 97.9 F 12/03/24 23:10 Pulse 87 12/03/24 23:10 Resp 19 12/03/24 23:10 BP 119/71 12/03/24 23:10 Pulse Ox 94 L 12/03/24 23:10 Course Vital Signs Vital signs: Vital Signs Temperature 99.8 F 12/03/24 18:27 Pulse Rate 122 H 12/03/24 18:27 Respiratory Rate 20 12/03/24 18:27 Blood Pressure 134/81 12/03/24 18:27 Pulse Oximetry 95 12/03/24 18:27 Temperature 97.9 F 12/03/24 23:10 Pulse Rate 87 12/03/24 23:10 Respiratory Rate 19 12/03/24 23:10 Blood Pressure 119/71 12/03/24 23:10 Pulse Oximetry 94 L 12/03/24 23:10 Medical Decision Making MDM Narrative Medical decision making narrative: patient presents with multiple complaints. Difficult history due to language barrier but daughter was helpful as brand sales manager. Patient complains of headache. Apparently similar headache in the past . Also dysuria that has improved some since she was prescribed Augmentin by her PCP for dental abscess. No complaint related to her tooth as it is better. 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 CT facial bones with mucosal thickening. Patient treated with solumedrol and magnesium and her headache is nearly gone. UA is positive and cx sent. Will have her continue Augmentin as her urine symptoms have improved also. I, Dr Grady, have reviewed the above progress note and course of action in the ER; agree with the above. I have personally gone over history and physical, and discussed disposition and treatment plan with the PA. Lab Data Labs: Lab Results 12/03/24 12/03/24 Range/Units 19:08 21:07 WBC 11.4 H (4.0-11.0) 10^3/uL RBC 4.28 (4.20-5.40) 10^6/uL Hgb 12.1 (12.0-16.0) g/dL Hct 36.9 (36.0-48.0) % MCV 86.2 (81.0-99.0) fL MCH 28.3 (26.7-34.0) pg MCHC 32.8 (29.9-35.2) g/dL RDW 15.8 H (11.0-15.0) % Plt Count 295 (150-450) 10^3/uL MPV 8.9 L (9.5-13.5) fL Neut % (Auto) 77.1 H (43.0-75.0) % Lymph % (Auto) 13.9 L (20.5-60.0) % Gaston % (Auto) 8.0 (1.7-12.0) % Eos % (Auto) 0.5 L (0.9-7.0) % Baso % (Auto) 0.2 (0.2-2.0) % Neut # (Auto) 8.8 H (1.4-6.5) 10^3/uL Lymph # (Auto) 1.6 (1.2-3.8) 10^3/uL [place]aston # (Auto) 0.9 H (0.3-0.8) 10^3/uL Eos # (Auto) 0.1 (0.0-0.7) 10^3/uL Baso # (Auto) 0.0 (0.0-0.1) 10^3/uL Abs Immat Gran (auto) 0.03 (0.00-0.03) 10^3/uL Imm/Tot Granulo (auto) 0.3 (0.0-0.5) % Sodium 135 L (136-145) mmol/L Potassium 3.6 (3.5-5.1) mmol/L Chloride 99 (98-107) mmol/L Carbon Dioxide 27.1 (21.0-32.0) mmol/L Anion Gap 12.5 BUN 16.0 (7.0-18.0) mg/dL Creatinine 0.67 (0.55-1.02) mg/dL Est GFR ( Amer) >60 (>=60 mL/min/1.73m^2) Est GFR (Non-Af Amer) >60 (>=60 mL/min/1.73m^2) BUN/Creatinine Ratio 23.9 Glucose 124 H (74-106) mg/dL Calcium 9.2 (8.5-10.1) mg/dL Troponin I High Sens 6.5 (4.0-51.3) pg/mL Urine Color Lt. yellow (YELLOW) Urine Clarity Clear (CLEAR) Urine pH 7.0 (5.0-9.0) Ur Specific Leslie <=1.005 A (1.005-1.025) Urine Protein Negative (NEG/TRACE) mg/dL Urine Glucose (UA) Negative (NEGATIVE) mg/dL Urine Ketones Negative (NEGATIVE) mg/dL Urine Occult Blood Trace-i (NEGATIVE) Urine Nitrite Negative (NEGATIVE) Urine Bilirubin Negative (NEGATIVE) Urine Urobilinogen 0.2 (0.2-1.0) EU/dL Ur Leukocyte Esterase Trace A (NEGATIVE) Urine RBC 0-2 (0-2) #/HPF Urine WBC 5-10 A (NONE SEEN) #/HPF Ur Squamous Epith Cells Few A (NONE/RARE) #/LPF Urine Crystals None seen (None Seen) #/HPF Urine Bacteria Trace A (NONE SEEN) #/HPF Urine Casts None seen (NONE SEEN) #/LPF Urine Mucus None seen (NONE SEEN) Ur [place] [place] Chest x-ray: Radiologist's impression: ITS Impressions Chest X-Ray 12/03/24 19:52 IMPRESSION: No acute cardiopulmonary pathology. Impression dictated by: Victor M Smith M.D. 12/03/2024 9:02 PM Dictation Location: [facility] Electronically authenticated by: [id number] Y Date: 12/03/2024 21:[address] 12/03/24 19:52 IMPRESSION: No evidence of fracture or dislocation. No significant soft tissue swelling to suggest cellulitis or abscess. Degenerative changes are noted in the temporomandibular joints, the atlantoaxial joint, craniocervical junction, and the upper cervical spine. Mucosal thickening is noted in the right maxillary sinus. Impression dictated by: Victor M Smith M.D. 12/03/2024 9:20 PM Dictation Location: [facility] Electronically authenticated by: [id number] Y Date: 12/03/2024 21:[address] 12/03/24 19:52 IMPRESSION: No acute intracranial pathology. There is gliosis and encephalomalacia in the left occipital lobe consistent with a remote infarct. 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 Impression dictated by: Victor M mSith M.D. 12/03/2024 9:11 PM Dictation Location: [facility] Electronically authenticated by: [id number] Y Date: 12/03/2024 21:11 Discharge Plan Discharge Chief Complaint: Urogenital-Female Clinical Impression: Headache, Acute UTI Patient Disposition: Home, Self-Care Prescriptions / Home Meds: No Action melatonin 5 mg tablet 5 mg PO .HS PRN (Reason: sleep) aspirin [Aspirin Childrens] 81 mg tablet,chewable 1 tab PO DAILY atorvastatin 80 mg tablet 80 mg PO .qhs cetirizine [24Hour Allergy] 10 mg tablet 10 mg PO DAILY PRN (Reason: allergy symptoms) albuterol sulfate 90 mcg/actuation Hfa Aerosol Inhaler 2 puff inhalation Q4H PRN (Reason: Dyspnea) Qty: 8.5 0RF Patient Comments: son does not know if she has this carvedilol 6.25 mg tablet 6.25 mg PO BID diclofenac sodium 75 mg tablet,delayed release (DR/EC) 75 mg PO Q12H PRN (Reason: pain) amoxicillin-pot clavulanate 875-125 mg tablet 1 tab PO TID Print Language: Sammarinese Instructions: Acute Headache (ED), Urinary Tract Infection in Older Adults (ED) Additional Instructions: follow up with Dr Doherty later this week or early next week Referrals: Willi Doherty MD [Primary Care Provider, Family Practice] - 1 week Discharge Date/Time: 12/03/24 23:23
--- NOTE | 2024-12-03 21:22 | PC.NURSE ---
this patient complains of pain with urination onset a few days
[2024-12-03 21:28] LABS: Basophils Percent Auto 0.2 % (0.2-2.0); Eosinophils Absolute Auto 0.1 10^3/uL (0.0-0.7); Eosinophils Percent Auto 0.5 % (0.9-7.0); Hematocrit 36.9 % (36.0-48.0); Hemoglobin 12.1 g/dL (12.0-16.0); Immature Granulocytes Abs Auto 0.03 10^3/uL (0.00-0.03); Immature Granulocytes Pct Auto 0.3 % (0.0-0.5); Lymphocytes Absolute Auto 1.6 10^3/uL (1.2-3.8); Lymphocytes Percent Auto 13.9 % (20.5-60.0); Mean Corpuscular HGB Conc 32.8 g/dL (29.9-35.2); Mean Corpuscular Hemoglobin 28.3 pg (26.7-34.0); Mean Corpuscular Volume 86.2 fL (81.0-99.0); Mean Platelet Volume 8.9 fL (9.5-13.5); Monocytes Absolute Auto 0.9 10^3/uL (0.3-0.8); Neutrophils Absolute Auto 8.8 10^3/uL (1.4-6.5); Neutrophils Percent Auto 77.1 % (43.0-75.0); Platelet Count 295 10^3/uL (150-450); Red Blood Count 4.28 10^6/uL (4.20-5.40); Red Cell Distribution Width 15.8 % (11.0-15.0); White Blood Count 11.4 10^3/uL (4.0-11.0)
[2024-12-03 21:52] LABS: Anion Gap 12.5; BUN Creatinine Ratio 23.9; Calcium 9.2 mg/dL (8.5-10.1); Carbon Dioxide 27.1 mmol/L (21.0-32.0); Chloride 99 mmol/L (98-107); Estimated GFR (African America >60 (>=60 mL/min/1.73m^2); Estimated GFR (Non-African Ame >60 (>=60 mL/min/1.73m^2); Glucose 124 mg/dL (74-106); Potassium 3.6 mmol/L (3.5-5.1); Sodium 135 mmol/L (136-145); Troponin I High Sensitivity 6.5 pg/mL (4.0-51.3)
[2024-12-03] MEDS: 0.9 % SODIUM CHLORIDE 1,000 ML 999 ML IV (22:07)
[2024-12-03] MEDS: MAGNESIUM SULFATE IN WATER 2 GM/50 ML PREMIX IV (22:07)
[2024-12-03] MEDS: METHYLPREDNISOLONE SOD SUCC PF 125 MG/2 ML VIAL IVP (22:27)
--- NOTE | 2024-12-03 23:21 | PC.NURSE ---
i gave this patient and her daughter verbal and written discharge along with 1 Rx and both voices yes to understanding these. at time of discharge this patient nor her daughter voices no concerns or needs and this patient show no signs of distress
== END 2024-12-03 23:23 | disposition home or self-care (01) ==
PROVIDERS: Physician Assistant; Emergency Provider Internal Medicine; PCP Family Medicine
DX: R51.9 Headache, unspecified (principal); N39.0 Urinary tract infection, site not specified; R30.0 Dysuria; I63.81 Other cerebral infarction due to occlusion or stenosis of small artery
CPT/HCPCS: 36415; 70450; 70486; 71045; 80048; 81001; 84484; 85025; 87086; 93005; 96365; 96375; 99285; J2919; J3475

== ENCOUNTER 2025-01-27 16:05 | Outpatient (OUT) | payer MEDICARE, OTHER, SELFPAY ==
--- OUTSIDE RECORDS SUMMARY | 2025-01-27 17:19 | XMS_ITS | CCD ---
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 Inspector Name Role Phone VaaGetachew ball Unavailable OBINNA GARRETT Referring Unavailable MERRILL DOHERTY Primary Care Unavailable MINESH DALY Attending Unavailable MINESH DALY Admitting Unavailable MD Merrill Doherty Primary Care Provider [phone] MD Bonnie Hendricks Attending Provider [phone] MD Merrill Doherty Primary Care Provider [phone] MD Bonnie Hendricks Attending Provider DR OBINNA [...] LADI Pichardo, DR MOMIN Primary Care Unavailable COCO Pichardo, ROBINSON Admitting Unavailable MD Merrill Doherty Primary Care Provider [phone] MD Bonnie Hendricks Attending Provider MD Merrill Doherty Primary Care Provider [phone] MD Bonnie Hendricks Attending Provider [phone] MD Merrill Doherty Primary Care Provider [phone] MD Bonnie Hendricks Attending Provider DEBRA WALTERS Attending Unavailable DEBRA WALTERS Referring Unavailable DEBRA WALTERS Attending Unavailable Unavailable Primary Care Provider Unavailabl e HOY, MERRILL M Primary Care Unavailable HOY, MERRILL M Referring Unavailable HOY, MERRILL M Primary Care Unavailable HOY, MERRILL M Referring Unavailable HOY, MERRILL M Primary Care Unavailable HOY, MERRILL M Referring Unavailable HOY, MERRILL M Primary Care Unavailable Bonnie Hoover PA-C Attending Provider [phone] Bonnie Hendricks MD Attending Provider [phone] Merrill Doherty MD Primary Care Provider [phone] Bonnie Hoover Admitting Unavailable Bonnie Hoover Attending Unavailable Ladi, Merrill M Primary Care Unavailable Bonnie Hendricks Admitting Unavailable Bonnie Hendricks Attending Unavailable Medications Current Medications Medication Drug Class(es) Dates Sig (Normalized) Sig (Original) acetaminophen 500 mg oral tablet (15 sources) Start: 05-23-2021 take 1 tablet by mouth every eight hours as needed for pain Acetaminophen 500 mg Tablet Active 500 MG PO Q8H as needed for Fever Or Pain 0 May 23, 2021 1:00am Complies with drug therapy Start: 04-23-2021 End: 05-23-2021 take 2 tablets by mouth every eight hours as needed for pain Acetaminophen 500 mg Tablet Discontinued 1000 MG PO Q8H as needed for Fever Or Pain 0 April 23, 2021 12:00am May 23, 2021 3:52pm Start: 04-23-2021 End: 05-23-2021 take 1000 mg by mouth every eight hours Acetaminophen Discontinued 1000 MG PO Q8H 0 April 23, 2021 12:00am May 23, 2021 3:52pm take 1 capsule by mo ut every six hours Acetaminophen 500 MG 1 capsule as needed Orally every 6 hrs Active aspirin 81 mg chewable tablet (20 sources) Platelet Aggregation Inhibitor, Nonsteroidal Anti-inflammatory Drug Start: 05-23-2021 take 1 tablet by mouth twice daily Aspirin (Children's Aspirin) 81 mg Tablet,Chewable Active 81 MG PO Twice daily 0 May 23, 2021 1:00am Complies with drug therapy Start: 04-23-2021 End: 05-23-2021 take 1 tablet by mouth once daily Aspirin (Children's Aspirin) 81 mg Tablet,Chewable Discontinued 81 MG PO Daily 0 April 23, 2021 12:00am May 23, 2021 3:52pm take 81 mg by mouth once daily ASPIRIN 81 PO Take 81 mg by mouth Daily Active ASPIRIN 81 PO As pir-81 Active atorvastatin 80 mg oral tablet (20 sources) HMG-CoA Reductase Inhibitor Start: 12-13-2023 take 1 tablet by mouth once daily at bedtime Start: 04-23-2021 End: 12-14-2022 take 1 tablet by mouth once daily in the evening Atorvastatin 80 mg Tablet Discontinued 80 MG PO Every evening 0 April 23, 2021 12:00am December 14, 2022 3:26pm carvedilol 6.25 mg oral tablet (20 sources) alpha-Adrenergic Bryan, beta-Adrenergic Bryan Start: 12-13-2023 take 1 tablet by mouth twice daily Start: 09-17-2023 take 1 tablet by esteban th every twelve hours Coreg 6.25 MG tablet Take 6.25 mg by mouth every 12 (twelve) hours 09/17/2023 Active Start: 12-14-2022 End: 06-14-2023 take 4 tablets by mouth twice daily at mealtime Carvedilol 6.25 mg tablet Discontinued 25 MG PO Twice daily with meals December 14, 2022 3:26pm June 14, 2023 4:01pm Start: 12-14-2022 End: 06-14-2023 take 25 mg by mouth twice daily at mealtime Carvedilol Discontinued 25 MG PO Twice daily with meals December 14, 2022 3:26pm June 14, 2023 4:01pm Start: 05-23-2021 End: 12-14-2022 take 1 tablet by mouth twice daily at mealtime Carvedilol 6.25 mg Tablet Discontinued 6.25 MG PO Twice daily with meals 0 May 23, 2021 1:00am December 14, 2022 3:26pm take 1 tablet by esteban th every twelve hours Carvedilol 12.5 MG 1 tablet with food Orally Twice a day Active Centrum MultiGummies - (3 sources) Centrum MultiGum mies - as directed Orally Active diclofenac sodium 75 mg delayed release oral tablet (10 sources) Nonsteroidal Anti-inflammatory Drug Start: take 1 tablet by mouth twice daily Start: 04-20-2021 End: 04-28-2021 take 1 tablet by mouth twice daily Diclofenac Sodium 75 mg tablet,delayed release (DR/EC) Discontinued 75 MG PO Twice daily April 20, 2021 12:00am April 28, 2021 3:08pm hydroCHLOROthiazide 25 mg oral tablet (3 sources) [...] day Active melatonin 5 mg oral tablet (16 sources) Start : 05-23 take 2 tablets by mouth once daily Melatonin 5 mg Tablet Active 10 MG PO DAILY@1999May 23, 2021 1:00am Complies with drug therapy Start: 05-23-2021 take 10 mg by mouth once daily Melatonin Active 10 MG PO DAILY@1999May 23, 2021 1:00am take 1 tablet by esteban th at bedtime melatonin 5 MG tablet Take 5 mg by mouth at bedtime Active Multiple Vitamins-Minerals (Centrum Silver Women 50+) tablet (10 sources) take 1 tablet by mouth once daily Multiple Vitamins-Minerals (Centrum Silver Women 50+) tablet Take 1 tablet by mouth Daily Active Multivitamin (Multiple Vitamin) Tablet (6 sources) Start: 06-14-2021 take 1 tablet by mouth once daily Multivitamin (Multiple Vitamin) Tablet Active 1 TAB PO Daily June 14, 2021 1:00am Complies with drug therapy Start: 06-14-2021 take 1 tablet by esteban [...] check* Not-Taking bisacodyl 10 mg rectal suppository (6 sources) Stimulant Laxative Start: 05-23-2021 End: 12-14-2022 Bisacodyl 10 mg Suppository Discontinued 10 MG KY Daily as needed for Constipation 0 May 23, 2021 1:00am December 14, 2022 3:26pm busPIRone hydrochloride 5 mg oral tablet (9 sources) Start: 04-28-2021 End: 01-13-2022 take 1 tablet by mouth twice daily Buspirone 5 mg Tablet Discontinued 5 MG PO Twice daily 0 April 28, 2021 1:00am January 13, 2022 2:20pm calcium lactate 100 mg oral capsule (8 sources) Start: 06-14-2021 End: 06-14-2023 take 100 mg by mouth twice daily Calcium Lactate Discontinued 100 MG PO Twice daily June 14, 2021 1:00am June 14, 2023 4:01pm Calcium Lactate Active Calcium Lactate 100 mg calcium Tablet (1 source) Start: 06-14-2021 End: 06-14-2023 take 1 tablet by mouth twice daily Calcium Lactate 100 mg calcium Tablet Discontinued 100 MG PO Twice daily June 14, 2021 1:00am June 14, 2023 4:01pm cetirizine hydrochloride 10 mg oral tablet (9 sources) Histamine-1 Receptor Antagonist Start: 04-20-2021 End: 12-14-2022 take 1 tablet by mouth once daily Cetirizine (Zyrtec) 10 mg tablet Discontinued 10 MG PO Daily April 20, 2021 12:00am December 14, 2022 3:26pm chlorthalidone 25 mg oral tablet (6 sources) Thiazide-like Diuretic Start: 04-23-2021 End: 05-23-2021 take 1 tablet by mouth once daily Chlorthalidone 25 mg tablet Discontinued 25 MG PO Daily April 23, 2021 12:00am May 23, 2021 3:52pm Ciprofloxacin (3 sources) Quinolone Antimicrobial Ciprofloxacin HCl *please review for potential _update for e-prescription and drug interaction check* Not-Taking docusate sodium 100 mg oral capsule (6 sources) Start: 04-28-2021 End: 05-23-2021 take 1 capsule by mouth twice daily Docusate Sodium (Dok) 100 mg Capsule Discontinued 100 MG PO Twice daily 0 April 28, 2021 1:00am May 23, 2021 3:52pm gabapentin 100 mg oral capsule (4 sources) Anti-epileptic Agent Start: 12-14-2022 End: 06-14-2023 take 1 capsule by mouth twice daily Gabapentin 100 mg Capsule Discontinued 100 MG PO Twice daily December 14, 2022 12:00am June 14, 2023 4:01pm irbesartan 300 mg oral tablet (6 sources) Angiotensin 2 Receptor Bryan Start: 04-20-2021 End: 06-14-2021 take 1 tablet by mouth once daily Irbesartan (Avapro) 300 mg tablet Discontinued 300 MG PO Daily April 20, 2021 12:00am June 14, 2021 3:51pm linaclotide 0.145 mg oral capsule (6 sources) Guanylate Cyclase-C Agonist Start: 05-23-2021 End: 06-14-2021 take 1 capsule by mouth once daily Linaclotide (Linzess) 145 mcg Capsule Discontinued 145 MCG PO Daily at 0730 0 May 23, 2021 1:00am June 14, 2021 3:51pm LORazepam 0.5 mg oral tablet (9 sources) Benzodiazepine Start: 05-23-2021 End: 06-14-2021 take 1 tablet by mouth twice daily as needed for anxiety Lorazepam 0.5 mg Tablet Discontinued 0.5 MG PO Twice daily as needed for Anxiety May 23, 2021 1:00am June 14, 2021 3:55pm take 1 tablet by esteban th every twenty-four hours Ativan 0.5 MG 1 tablet at bedtime as needed Orally Once a day Active losartan potassium 100 mg oral tablet (12 sources) Angiotensin 2 Receptor Bryan Start: 06-14-2021 End: 01-13-2022 take 1 tablet by mouth once daily Losartan 100 mg Tablet Discontinued 100 MG PO Daily June 14, 2021 1:00am January 13, 2022 2:20pm Losartan Kenn frey *please review for potential _update for e-prescription and drug interaction check* Active magnesium hydroxide 80 mg/ml oral suspension (12 sources) Start: 06-14-2021 End: 12-14-2022 take 1 mL by mouth twice daily as needed for constipation Magnesium Hydroxide (Milk Of Magnesia) 400 mg/5 mL Suspension Discontinued 15 ML PO Twice daily as needed for Constipation June 14, 2021 1:00am December 14, 2022 [...] take 1 mL by mouth twice daily as needed for constipation Magnesium Hydroxide (Milk Of Magnesia) 400 mg/5 mL Suspension Discontinued 30 ML PO Twice daily as needed for Constipation 0 April 28, 2021 1:00am May 23, 2021 3:52pm Start: 04-28-2021 End: 05-23-2021 take 1 mL by mouth twice daily Magnesium Hydroxide (Mi lk Of Magnesia) 400 mg/5 mL Suspension Discontinued 30 ML PO Twice daily April 28, 2021 12:00am May 23, 2021 [...] PC PRN for 30 day(s) October, Not-Taking Moneta 7-Ldo-Gnh-Fish Oil (Fish Oil) 1,200 (144-216) mg Capsule (6 sources) Start: 06-14-2021 End: 06-14-2023 take 1 capsule by mouth once daily Moneta 8-Vwt-Nra-Fish Oil (Fish Oil) 1,200 (144-216) mg Capsule Discontinued 1 CAP PO Daily June 14, 2021 1:00am June 14, 2023 4:01pm Start: 06-14-2021 End: 06-14-2023 take 1 capsule by mouth once daily Moneta 3-Yjr-Oru-Fish Oil (Fish Oil) 1,200 (144-216) mg Capsule Discontinued 1 CAP PO Daily June 14, 2021 12:00am June 14, 2023 3:01pm Start: 06-14-2021 take 1 capsule by tx ut once daily Moneta 1-Gvb-Ghh-Fish Oil (Fish Oil) 1,200 (144-216) mg Capsule Active 1 CAP PO Daily June 14, 2021 12:00am Start: 06-14-2021 take 1 capsule by [facility] once daily Moneta 7-Mgn-Qim-Fish Oil (Fish Oil) 1,200 (144-216) mg Capsule Active 1 CAP PO Daily June 14, 2021 1:00am omeprazole 20 mg delayed release oral capsule (9 sources) Proton Pump Inhibitor Start: 05-23-2021 End: 12-14-2022 take 2 capsules by mouth once daily at breakfast Omeprazole 20 mg Capsule,Delayed Release(Dr/Ec) Discontinued 40 MG PO Daily with breakfast 0 May 23, 2021 1:00am December 14, 2022 3:25pm Start: 05-23-2021 End: 12-14-2022 take 40 mg by mouth once daily at breakfast Omeprazole Discontinued 40 MG PO Daily with breakfast 0 May 23, 2021 1:00am December 14, 2022 3:25pm take 1 capsule by mo [facility] once daily Omeprazole 20 MG 1 capsule 30 minutes before morning meal Orally Once a day Active oxyCODONE hydrochloride 5 mg oral tablet (6 sources) Opioid Agonist Start: 04-23-2021 End: 05-23-2021 take 1 tablet by mouth every four hours as needed for pain Oxycodone 5 mg Tablet Discontinued 5 MG PO Every 4 hours as needed for pain April 23, 2021 May 23, 2021 3:52pm polyethylene glycol [id number] mg powder for oral solution (6 sources) Osmotic Laxative Start: 06-14-2021 End: 12-14-2022 [...] Start: 04-23-2021 take 2 tablets by mo [facility] twice daily Sennosides (Senna Lax) 8.6 mg Tablet Active 17.2 MG PO Twice daily April 22, 2021 11:00pm Start: 04-23-2021 take 2 tablets by mo [facility] twice daily Sennosides (Senna Lax) 8.6 mg Tablet Active 17.2 MG PO Twice daily April 23, 2021 12:00am sennosides, longterm 8.6 mg oral tablet (1 source) Start: 04-23-2021 End: 12-14-2022 take 2 tablets by mouth twice daily Sennosides (Senna Lax) 8.6 mg Tablet Discontinued 17.2 MG PO Twice daily April 23, 2021 12:00am December 14, 2022 3:25pm Stool Softener (3 sources) Stool Softener *please review for potential _update for e-prescription and drug interaction check* Not-Taking sucralfate 100 mg/ml oral suspension (6 sources) Aluminum Complex Start: 05-23-2021 End: 01-13-2022 take 1 g by mouth once before mealtime as needed Sucralfate 100 mg/mL Suspension Discontinued 1 GM PO 3x/Day before meals & bedtime as needed for Sore Throat 0 May 23, 2021 1:00am January 13, 2022 2:21pm Start: 05-23-2021 End: 01-13-2022 take 1 g [...] 2022 2:21pm temazepam 15 mg oral capsule (6 sources) Benzodiazepine Start: 05-23-2021 End: 06-14-2021 take 1 capsule by mouth once daily Temazepam 15 mg Capsule Discontinued 15 MG PO DAILY@1999May 23, 2021 1:00am June 14, 2021 3:52pm traMADol hydrochloride 50 mg oral tablet (9 sources) Opioid Agonist Start: 04-28-2021 End: 05-23-2021 take 1 tablet by mouth every eight hours as needed for pain Tramadol 50 mg Tablet Discontinued 50 MG PO Every 8 hours as needed for Pain 0 April 28, 2021 1:00am May 23, [...] Onset: 12-27-2023 10-13-2021 Chronic Acute posthemorrhagic anemia (6 sources) Acute posthemorrhagic anemia; Translations: [Acute posthemorrhagic anemia] 06-14-2021 Episodic Anxiety disorders (6 sources) Anxiety; Translations: [Anxiety disorder, unspecified] 06-14-2021 Chronic Cancer of ovary (7 sources) History of malignant neoplasm of ovary; Translations: [Personal history of malignant neoplasm of ovary] 06-14-2021 Episodic Cancer of uterus (1 source) Personal history of malignant neoplasm of other parts of uterus; Translations: [PERS HX MAL NEOPLSM OTH PART UTRUS] Onset: 09-19-2022 Episodic Deficiency and other anemia (6 sources) Anemia; Translations: [Anemia, unspecified] 06-14-2021 Episodic Diseases of white blood cells (1 source) Other neutropenia; Translations: [OTHER NEUTROPENIA] Onset: 12-12-2021 Chronic Disorders of lipid metabolism (16 sources) Hyperlipidemia; Translations: [Hyperlipidemia, unspecified] Onset: 12-27-2023 12-27-2023 Chronic Esophageal disorders (16 sources) Diffuse spasm of esophagus; Translations: [Dyskinesia of esophagus] Onset: 09-19-2022 04-29-2021 Chronic Essential hypertension (20 sources) Hypertensive disorder; Translations: [Essential (primary) hypertension] Onset: 09-19-2022 06-14-2021 Chronic Fluid and electrolyte disorders (9 sources) Hyponatremia; Translations: [Hypo-osmolality and hyponatremia] Onset: 12-12-2021 06-14-2021 Episodic Fracture of neck of femur (hip) (8 sources) Unspecified fracture of head of right femur, subsequent encounter for closed fracture with routine healing; Translations: [Fracture of neck of femur] Onset: 06-29-2021 Resolved: 11-04-2021 Episodic Genitourinary symptoms and ill-defined conditions (16 sources) Iván hematuria; Translations: [Gross hematuria] Onset: 09-16-2022 06-14-2021 Episodic Malaise and fatigue (11 sources) Fatigue; Translations: [Chronic fatigue, unspecified] Onset: 12-27-2023 12-27-2023 Chronic Malaise and fatigue (7 sources) Right hemiparesis; Translations: [Weakness] Onset: 04-11-2022 06-14-2021 Episodic Mood disorders (12 sources) Depressive disorder; Translations: [Depression] 10-13-2021 Chronic Osteoarthritis (16 sources) Osteoarthritis of elbow; 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, upper arm] Onset: 09-19-2022 06-14-2021 Chronic Osteoporosis (6 sources) Osteoporosis; Translations: [Age-related osteoporosis without current pathological fracture] 06-14-2021 Chronic Other aftercare (1 source) Other retirement (current) drug therapy; Translations: [OTH LONG-TERM CURRENT DRUG THERAPY] Onset: 09-19-2022 Episodic Other aftercare (1 source) intermediate (current) use of aspirin; Translations: [DATA LEAD CURRENT USE OF ASPIRIN] Onset: 09-19-2022 Episodic Other circulatory disease (1 source) Personal history of transient ischemic attack (TIA), and cerebral infarction without residual deficits; Translations: [PERS HX TIA AND CI NO RESID DEFICIT] Onset: 09-19-2022 Episodic Other connective tissue disease (3 sources) Artificial knee joint present; Translations: [Presence of unspecified artificial knee joint] Chronic Other connective tissue disease (9 sources) History of total knee arthroplasty; Translations: [Presence of left artificial knee joint] 06-14-2021 Chronic Other connective tissue disease (8 sources) History of repair of hip joint; Translations: [Presence of unspecified artificial hip joint] 10-13-2021 Chronic Other connective tissue disease (7 sources) Presence of unspecified artificial hip joint; Translations: [Hip joint replacement] Onset: 12-22-2021 01-13-2022 Chronic Other connective tissue disease (1 source) Presence of right artificial hip joint; Translations: [PRESENCE RIGHT ARTIFICIAL HIP JOINT] Onset: 09-19-2022 Chronic Other connective tissue disease (6 sources) Rhabdomyolysis; Translations: [Rhabdomyolysis] 06-14-2021 Episodic Other diseases of kidney and ureters (1 source) Other specified disorders of kidney and ureter; Translations: [OTHER SPEC DISORDERS KIDNEY URETER] Onset: 12-12-2021 Chronic Other diseases of kidney and ureters (6 sources) Cyst of kidney; Translations: [Cyst of kidney, acquired] 06-14-2021 Episodic Other ear and sense organ disorders (1 source) Unspecified hearing loss, unspecified ear; Translations: [UNS HEARING LOSS UNSPECIFIED EAR] Onset: 04-11-2022 Chronic Other ear and sense organ disorders (15 sources) Hearing loss of left ear; Translations: [Unspecified hearing loss, left ear] Onset: 12-27-2023 12-27-2023 Chronic Other fractures (7 sources) Compression fracture of thoracic spine; Translations: [Wedge compression fracture of T9-T10 vertebra, initial encounter for closed fracture] 10-13-2021 Episodic Other fractures (5 sources) Wedge compression fracture of T9-T10 vertebra, initial encounter for closed fracture; Translations: [Closed fracture of dorsal [thoracic] vertebra without mention of spinal cord injury] 01-13-2022 Episodic Other gastrointestinal disorders (9 sources) Dysphagia; Translations: [Dysphagia, unspecified] 06-14-2021 Episodic Other gastrointestinal disorders (8 sources) Pelvic mass; Translations: [Intra-abdominal and pelvic swelling, mass and lump, unspecified site] 10-13-2021 Episodic Other gastrointestinal disorders (6 sources) Constipation; Translations: [Constipation, unspecified] 06-14-2021 Episodic Other gastrointestinal disorders (6 sources) Intra-abdominal and pelvic swelling, mass and lump, unspecified site; Translations: [Abdominal or pelvic swelling, mass, or lump, unspecified site] 01-13-2022 Episodic Other gastrointestinal disorders (6 sources) Disorder of colon; Translations: [Disease of intestine, unspecified] 05-31-2022 Episodic Other gastrointestinal disorders (4 sources) Disease of intestine, unspecified; Translations: [Other specified disorders of intestine] 12-14-2022 Episodic Other gastrointestinal disorders (1 source) Other intra-abdominal and pelvic swelling, mass and lump; Translations: [Other intra-abdominal and pelvic swelling, mass and lump] Onset: 12-31-2024 Episodic Other lower respiratory disease (6 sources) Multiple nodules of lung; Translations: [Other [...] type] 06-14-2021 Chronic Other nervous system disorders (5 sources) Abnormal circadian rhythm; Translations: [Circadian rhythm sleep disorder, unspecified type] 06-14-2021 Chronic Other non-traumatic joint disorders (3 sources) Pain in elbow; Translations: [Elbow pain] Episodic Other non-traumatic joint disorders (6 sources) Hip pain; Translations: [Pain in right hip] 06-14-2021 Episodic Other nutritional; endocrine; and metabolic disorders (1 source) Obesity, unspecified; Translations: [OBESITY UNSPECIFIED] Onset: 04-11-2022 Chronic Residual codes; unclassified (1 source) Acquired absence of both cervix and uterus; Translations: [ACQUIRED ABSENCE BOTH CERVIX AND UTERUS] Onset: 09-19-2022 Episodic Residual codes; unclassified (6 sources) Language spoken - finding; Translations: [Other specified health status] 05-31-2022 Episodic Residual codes; unclassified (4 sources) Other specified health status; Translations: [Mental and behavioral problems with communication [including speech]] 12-14-2022 Episodic Rheumatoid arthritis and related disease (11 sources) Rheumatoid arthritis; Translations: [Rheumatoid arthritis, unspecified] Onset: 12-27-2023 12-27-2023 Chronic Unclassified (1 source) CONTACT W/AND (SUSP) EXPOS COVID-19; Translations: [CONTACT W/AND (SUSP) EXPOS COVID-19] Onset: 04-11-2022 Unclassified (1 source) OPEN WOUND RT INDEX FINGER Onset: 05-24-2024 Urinary tract infections (5 sources) Urinary tract [...] PART VS CMPL OBS] Onset: 12-22-2021 Episodic Open wounds of extremities (1 source) Laceration without foreign body of right index finger without damage to nail, initial encounter; Translations: [Laceration without foreign body of right index finger without damage to nail, initial encounter] Onset: 05-24-2024 Episodic Other circulatory disease (1 source) Hypotension, unspecified; Translations: [HYPOTENSION UNSPECIFIED] Onset: 04-11-2022 Episodic Other injuries and conditions due to external causes (1 source) Laceration - injury Onset: 05-24-2024 Episodic Other lower respiratory disease (1 source) Acute respiratory distress; Translations: [ACUTE RESPIRATORY DISTRESS] Onset: 04-11-2022 Episodic Other lower respiratory disease (1 source) Hypoxemia; Translations: [HYPOXEMIA] Onset: 04-11-2022 Episodic Other nervous system disorders (15 sources) Abnormal gait; Translations: [Unsteadiness on feet] Onset: 12-27-2023 12-27-2023 Episodic Other nervous system disorders (11 sources) Paresthesia of hand ; Translations: [Paresthesia of skin] Onset: 12-27-2023 12-27-2023 Episodic Other nervous system disorders (15 sources) Paresthesia; Translations: [Paresthesia of skin] Onset: [...] Test Name Value Interpretation Reference Range Facility [place] 125on 12-11-2024 CANCER ANTIGEN 125 16.2 0.0 - 38.1 [facility] Comment on above: [facility] El ectrochemiluminescence Immunoassay (ECLIA) Values obtained with different assay methods or kits cannot be used interchangeably. Results cannot be interpreted as absolute evidence of the presence or absence of malignant disease. Performed at: [address] [id number] Marketing Recruiter: Adrian Coello PhD, Phone: [phone] [facility] CBC W Auto Differential pane l (Bld)on 12-09-2024 Basophils (Bld) [#/Vol] 0 10*3/uL 0.0 - 0.2 10*3/uL [facility] Basophils/100 WBC Manual cnt (Syn fld) 0.5 % . [facility] Eosinophils (Bld) [#/Vol] 0.3 10*3/uL 0.0 - 0.45 10*3/uL [facility] Eosinophils/100 WBC Manual cnt (Syn fld) 4.7 % . [facility] Erythrocyte distribution width (RBC) [Ratio] 16.5 % High 11.9 - 15.3 % [facility] Hematocrit (Bld) [Volume fraction] 35.4 % 34.0 - 46.4 % [facility] Hemoglobin (Bld) [Mass/Vol] 11.7 g/dL Low 11.8 - 15.4 g/dL [facility] Interpretation and review of laboratory results Abnormal [facility] Lymphocytes (Bld) [#/Vol] 2.1 10*3/uL 1.00 - 4.8 10*3/uL [facility] Lymphocytes/100 WBC Manual cnt (Syn fld) 35 % . [facility] MCH (RBC) [Entitic mass] 28.8 pg 24.7 - 34.3 pg [facility] MCHC (RBC) [Mass/Vol] 33.2 g/dL 32.0 - 35.0 g/dL [facility] MCV (RBC) [Entitic vol] 86.7 fL 80 - 100 fL [facility] Monocytes (Bld) [#/Vol] 0.4 10*3/uL 0.0 - 0.8 10*3/uL [facility] Monocytes+Macrophages/ 100 WBC Manual cnt (Syn fld) 6.9 % . [facility] Neutrophils (Bld) [#/Vol] 3.2 10*3/uL 1.8 - 7.7 10*3/uL [facility] Neutrophils/100 WBC Manual cnt (Syn fld) 52.9 % . [facility] [facility] NRBC 0.2 /100{WBC} 0 - 0.5 /100{WBC} [facility] Platelet mean volume (Bld) [Entitic vol] 6.8 fL 6.3 - 10.7 fL [facility] Platelets (Bld) [#/Vol] 337 10*3/uL 150 - 450 10*3/uL [facility] RBC LM.HPF (Urine sed) [#/Area] 4.08 10*6/uL 3.60 - 5.00 10*6/uL [facility] WBC (Bld) [#/Vol] 6 10*3/uL 3.8 - 11.6 10*3/uL [facility] WBC LM.HPF (Urine sed) [#/Area] 6 [CFU]/mL 3.8 - 11.6 [CFU]/mL [facility] CT abdomen pelvis w [facility] CT abdomen pelvis w [facility] [place] [address] CT Scan Report Signed Patient: Sabi Santamaria MR#: [id number] : 1945 Acct:[id number] Age/Sex: 79 / F ADM Date: 12/09/24 Loc: XT Room: Type: [facility] Attending Dr: Bonnie Hendricks MD Copies to: Bonnie Hendricks MD Ordering Provider: Bonnie Hendricks MD Date of Service: 12/09/24 CT/CT abdomen pelvis w con: R19.00 - Intra-abdominal and pelvic swelling, mass and zara... CT ABDOMEN AND PELVIS WITH INTRAVENOUS CONTRAST: CLINICAL HISTORY: Pelvic mass, history of ovarian cancer COMPARISON: CT abdomen and pelvis 12/10/2023 TECHNIQUE: Spiral images were obtained through the abdomen and pelvis following the administration of intravenous contrast. This CT exam was performed using one or more following dose reduction techniques: Automated exposure control, adjustment of the mA and/or kV according to patient size, or use of iterative reconstruction technique. FINDINGS: Lung Bases: [Bibasilar atelectasis.] Organs:Liver gallbladder, pancreas spleen and adrenal glands are unremarkable. Large cyst left kidney. Right kidney appears unremarkable. GI: Moderate retrocardiac hiatal hernia. Small bowel appears nondilated. Moderate stool burden. No acute colonic abnormality.[Stable thickening involving the distal rectum/anal canal. 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 The urinary bladder appears mildly distended. Similar appearance left bladder wall thickening. Stable left left adnexal lesion 4.0 x 2.5 cm, previously 4.1 x 2.5 cm .. Uterus absent Peritoneum/Retroperitoneu m:No free air, free fluid or lymphadenopathy. No omental or peritoneal disease is seen.[ Abd wall/Bones: No suspicious lesion. Similar anterolisthesis L5 on S1 multilevel degenerative changes predominantly involving the lumbar facet joints. CT/CT abdomen pelvis w con IMPRESSION: No CT evidence of progression of disease. Stable left adnexal mass. Impression dictated by: Luis Moya M.D. 12/09/2024 9:55 PM Dictation Location: [place] [address] Transcribed By: [facility] 12/09/242154 Dictated By: Luis Moya MD 12/09/242148 Signed By: 12/09/242154 Normal [facility] Cancer Antigen 125on 025 Cancer Antigen 125 16.2 Normal 0.0-38.1 [facility] Comment on above: Result Comment: [employer] Electrochemiluminescence Immunoassay (ECLIA) Values obtained with different assay methods or kits cannot be used interchangeably. Results cannot be interpreted as absolute evidence of the presence or absence of malignant disease. Performed at: [facility] [employer] [id number] Marketing Recruiter: Adrian Coello PhD, Phone: [phone] PERFORMED BY: [place] [address] PATHOLOGIST RESPIRATORY CARE PROGRAM DIRECTOR CARMEN JEFFERSON M.D. Performed By: #### C A125 #### [facility] , #### CBC, CMP #### [address] Complete Blood Count Auto Di ffon 12-09-2024 Basophils (Bld) [#/Vol] 0.0 10*3/uL Normal 0.0-0.2 [facility] Comment on above: Result Comment: PERF ORMED BY: [place] [address] PATHOLOGIST RESPIRATORY CARE PROGRAM DIRECTOR CARMEN JEFFERSON M.D. Performed By: #### C A125 #### [facility] , #### CBC, CMP #### [address] Basophils/100 WBC (Bld) 0.5 % Normal . [facility] Comment on above: Performed By: #### C A125 #### [facility] , #### CBC, CMP #### [address] Eosinophils (Bld) [#/Vol] 0.3 10*3/uL Normal 0.0-0.45 [facility] Comment on above: Performed By: #### C A125 #### [facility] , #### CBC, CMP #### [address] Eosinophils/100 WBC (Bld) 4.7 % Normal . [facility] Comment on above: Performed By: #### C A125 #### [facility] , #### CBC, CMP #### [address] Erythrocyte distribution width (RBC) [Ratio] 16.5 % High 11.9-15.3 [facility] Comment on above: Performed By: #### C A125 #### [facility] , #### CBC, CMP #### [address] Hematocrit (Bld) [Volume fraction] 35.4 % Normal 34.0-46.4 [facility] Comment on above: Performed By: #### C A125 #### [facility] , #### CBC, CMP #### [address] Hemoglobin (Bld) [Mass/Vol] 11.7 g/dL Low 11.8-15.4 [facility] Comment on above: Performed By: #### C A125 #### [facility] , #### CBC, CMP #### [address] Lymphocytes (Bld) [#/Vol] 2.1 10*3/uL Normal 1.00-4.8 [facility] Comment on above: Performed By: #### C A125 #### [facility] , #### CBC, CMP #### [address] Lymphocytes/100 WBC (Bld) 35.0 % Normal . [facility] Comment on above: Performed By: #### C A125 #### [facility] , #### CBC, CMP #### [address] MCH (RBC) [Entitic mass] 28.8 pg Normal 24.7-34.3 [facility] Comment on above: Performed By: #### C A125 #### [facility] , #### CBC, CMP #### [address] MCV (RBC) [Entitic vol] 86.7 fL Normal 80-100 [facility] Comment on above: Performed By: #### C A125 #### [facility] , #### CBC, CMP #### [address] Mean Corpuscular HGB Conc 33.2 g/dL Normal 32.0-35.0 [facility] Comment on above: Performed By: #### C A125 #### [facility] , #### CBC, CMP #### [address] Monocytes (Bld) [#/Vol] 0.4 10*3/uL Normal 0.0-0.8 [facility] Comment on above: Performed By: #### C A125 #### [facility] , #### CBC, CMP #### [address] Monocytes/100 WBC (Bld) 6.9 % Normal . [facility] Comment on above: Performed By: #### C A125 #### [facility] , #### CBC, CMP #### [address] Neutrophils (Bld) [#/Vol] 3.2 10*3/uL Normal 1.8-7.7 [facility] Comment on above: Performed By: #### C A125 #### [facility] , #### CBC, CMP #### [place] [address] [place] Neutrophils/100 WBC (Bld) 52.9 % Normal . [facility] Comment on above: Performed By: #### C A125 #### [facility] , #### CBC, CMP #### [place] [address] [place] NRBC% 0.2 /100{WBC} Normal 0-0.5 [facility] Comment on above: Performed By: #### C A125 #### [facility] , #### CBC, CMP #### [address] Platelet mean volume (Bld) [Entitic vol] 6.8 fL Normal 6.3-10.7 [facility] Comment on above: Performed By: #### C A125 #### [facility] , #### CBC, CMP #### [address] Platelets (Bld) [#/Vol] 337 10*3/uL Normal 150-450 [facility] Comment on above: Performed By: #### C A125 #### [facility] , #### CBC, CMP #### [address] RBC (Bld) [#/Vol] 4.08 10*6/uL Normal 3.60-5.00 [facility] Comment on above: Performed By: #### C A125 #### [facility] , #### CBC, CMP #### [address] WBC (Bld) [#/Vol] 6.0 10*3/uL Normal 3.8-11.6 [facility] Comment on above: Performed By: #### C A125 #### [facility] , #### CBC, CMP #### [address] White Blood Count 6.0 [CFU]/mL Normal 3.8-11.6 [facility] Comment on above: Performed By: #### C A125 #### [facility] , #### CBC, CMP #### [address] Comprehensive Metabolic Pane roberto 12-09-2024 Albumin [Mass/Vol] 3.7 g/dL Normal 3.5-5.7 [facility] Comment on above: Performed By: #### C A125 #### [facility] , #### CBC, CMP #### [address] Albumin/Globulin [Mass ratio] 0.9 {ratio} Normal [facility] Comment on above: Performed By: #### C A125 #### [facility] , #### CBC, CMP #### [address] ALP [Catalytic activity/Vol] 97 U/L Normal 34-104 [facility] Comment on above: Performed By: #### C A125 #### [facility] , #### CBC, CMP #### [address] ALT [Catalytic activity/Vol] 23 U/L Normal 7-52 [facility] Comment on above: Performed By: #### C A125 #### [facility] , #### CBC, CMP #### [address] Anion gap [Moles/Vol] 8.7 mmol/L Normal 6.0-15.0 [facility] Comment on above: Performed By: #### C A125 #### [facility] , #### CBC, CMP #### [address] AST [Catalytic activity/Vol] 27 U/L Normal 13-39 [facility] Comment on above: Performed By: #### C A125 #### [facility] , #### CBC, CMP #### [address] Bilirubin [Mass/Vol] 0.5 mg/dL Normal 0.3-1.0 [facility] Comment on above: Performed By: #### C A125 #### [facility] , #### CBC, CMP #### [address] Calcium [Mass/Vol] 9.0 mg/dL Normal 8.6-10.3 [facility] Comment on above: Performed By: #### C A125 #### [facility] , #### CBC, CMP #### [address] Chloride [Moles/Vol] 105 mmol/L Normal 98-107 [facility] Comment on above: Performed By: #### C A125 #### [facility] , #### CBC, CMP #### [address] CO2 [Moles/Vol] 27.4 mmol/L Normal 21.0-31.0 [facility] Comment on above: Performed By: #### C A125 #### [facility] , #### CBC, CMP #### [address] Creatinine [Mass/Vol] 0.62 mg/dL Normal 0.60-1.20 [facility] Comment on above: Performed By: #### C A125 #### [facility] , #### CBC, CMP #### [place] [address] [place] Creatinine Clr Calc Pharmacy 50.05 Normal [facility] Comment on above: Result Comment: PERF ORMED BY: [place] [address] PATHOLOGIST RESPIRATORY CARE PROGRAM DIRECTOR CARMEN JEFFERSON M.D. Performed By: #### C A125 #### [facility] , #### CBC, CMP #### [place] [address] [place] GFR/1.73 sq M.predicted MDRD (S/P/Bld) [Vol rate/Area] mL/min/{1.73_m2} Normal [facility] Comment on above: Performed By: #### C A125 #### [facility] , #### CBC, CMP #### [address] Globulin (S) [Mass/Vol] 4.0 g/dL Normal [facility] Comment on above: Performed By: #### C A125 #### [facility] , #### CBC, CMP #### [address] Glucose [Mass/Vol] 103 mg/dL High 70-100 [facility] Comment on above: Result Comment: [facility] Glucose Reference Range is dependent on time and content of last meal. Glucose of more than 200 mg/dL in a nonstressed, ambulatory subject supports the diagnosis of Diabetes Mellitus. ADA recommended reference range Performed By: #### C A125 #### [facility] , #### CBC, CMP #### [address] Potassium [Moles/Vol] 4.1 mmol/L Normal 3.5-5.1 [facility] Comment on above: Performed By: #### C A125 #### [facility] , #### CBC, CMP #### [address] Protein [Mass/Vol] 7.7 g/dL Normal 6.4-8.9 [facility] Comment on above: Performed By: #### C A125 #### [facility] , #### CBC, CMP #### [place] [address] [place] Sodium [Moles/Vol] 137 mmol/L Normal 136-145 [facility] Comment on above: Performed By: #### C A125 #### [facility] , #### CBC, CMP #### [address] [place] [address] [facility] Urea nitrogen [Mass/Vol] 17 mg/dL Normal 7-25 [facility] Comment on above: Performed By: #### C A125 #### [facility] , #### CBC, CMP #### [facility] [address] [place] [id number] [facility] Comprehensive metabolic pane roberto 12-09-2024 Albumin [Mass/Vol] 3.7 g/dL 3.5 - 5.7 g/dL [facility] Albumin/Globulin [Mass ratio] 0.9 {ratio} [facility] ALP [Catalytic activity/Vol] 97 U/L 34 - 104 U/L [facility] ALT [Catalytic activity/Vol] 23 U/L 7 - 52 U/L [facility] Anion gap [Moles/Vol] 8.7 mmol/L 6.0 - 15.0 [facility] AST [Catalytic activity/Vol] 27 U/L 13 - 39 U/L [facility] Bilirubin [Mass/Vol] 0.5 mg/dL 0.3 - 1 .0 mg/dL [facility] Calcium [Mass/Vol] 9 mg/dL 8.6 - 10. 3 mg/dL [facility] Chloride [Moles/Vol] 105 mmol/L 98 - 10 7 mmol/L [facility] CO2 [Moles/Vol] 27.4 mmol/L 21.0 - 31.0 mmol/L [facility] Creatinine (U) [Mass/Vol] 0.62 mg/dL 0.60 - 1.20 mg/dL [facility] CREATININE CLR CALC PHARMACY 50.05 [facility] ESTIMATED GFR [facility] Globulin (S) [Mass/Vol] 4 g/dL [facility] Glucose [Mass/Vol] 103 mg/dL High 70 - 100 mg/dL [facility] Comment on above: Random Glucose Refer ence Range is dependent on time and content of last meal. Glucose of more than 200 mg/dL in a nonstressed, ambulatory subject supports the diagnosis of Diabetes Mellitus. ADA recommended reference range Interpretation and review of laboratory results Abnormal [facility] Potassium [Moles/Vol] 4.1 mmol/L 3.5 - 5.1 mmol/L [facility] Protein [Mass/Vol] 7.7 g/dL 6.4 - 8.9 g/dL [facility] Sodium [Moles/Vol] 137 mmol/L 136 - 145 mmol/L [facility] Urea nitrogen [Mass/Vol] 17 mg/dL 7 - 25 mg/dL [facility] CBC WITH AUTO DIFFERENTIALon 12-06-2024 BASOPHILS ABSOLUTE COUNT (10*3/UL) BY AUTOMATED COUNT 0.1 10*3/uL Normal 0.0-0.2 [facility] Comment on above: Performed By: #### C BCA #### [facility] ([facility]) [address] [place] [address] VIR BASOPHILS RELATIVE PERCENT BY AUTOMATED COUNT 0.9 % Normal [facility] Comment on above: Performed By: #### C BCA #### [facility] ([facility]) [address] [place] [address] VIR CELLAVISION DIFFERENTIAL TYPE AUTOMATED DIFFERENTIAL Normal [facility] Comment on above: Performed By: #### C BCA #### [facility] ([facility]) [address] [place] [address] VIR Eosinophils (Bld) [#/Vol] 0.2 10*3/uL Normal 0.0-0.4 [facility] Comment on above: Performed By: #### C BCA #### [facility] ([facility]) [address] [place] [address] VIR EOSINOPHILS RELATIVE PERCENT BY AUTOMATED COUNT 3.1 % Normal [facility] Comment on above: Performed By: #### C BCA #### [facility] ([facility]) [address] [place] [address] VIR Erythrocyte distribution width (RBC) [Ratio] 16.7 % High 11.5-15 [facility] Comment on above: Performed By: #### C BCA #### [facility] ([facility]) [address] [place] [address] VIR Hematocrit (Bld) [Volume fraction] 34.8 % Low 35-47 [facility] Comment on above: Performed By: #### C BCA #### [facility] ([facility]) [address] [place] [address] VIR Hemoglobin (Bld) [Mass/Vol] 11.5 g/dL Low 11.7-15.5 [facility] Comment on above: Performed By: #### C BCA #### [facility] ([facility]) [address] [place] [address] VIR LYMPHOCYTES ABSOLUTE COUNT (10*3/UL) BY AUTOMATED COUNT 1.8 10*3/uL Normal 1.0-3.5 [facility] Comment on above: Performed By: #### C BCA #### [facility] ([facility]) [address] [place] [address] VIR LYMPHOCYTES RELATIVE PERCENT BY AUTOMATED COUNT 26.2 % Normal [facility] Comment on above: Performed By: #### C BCA #### [facility] ([facility]) [address] [place] [address] VIR MCH (RBC) [Entitic mass] 28.2 pg Normal 27-34 [facility] Comment on above: Performed By: #### C BCA #### [facility] ([facility]) [address] [place] [address] VIR MCHC (RBC) [Mass/Vol] 33.1 g/dL Normal 32-36 [facility] Comment on above: Performed By: #### C BCA #### [facility] ([facility]) [address] [place] [address] VIR MCV (RBC) [Entitic vol] 85 fL Normal 80-100 [facility] Comment on above: Performed By: #### C BCA #### [facility] ([facility]) [address] [place] [address] VIR MONOCYTES ABSOLUTE COUNT (10*3/UL) BY AUTOMATED COUNT 0.4 10*3/uL Normal 0.0-0.9 [facility] Comment on above: Performed By: #### C BCA #### [facility] ([facility]) [address] [place] [address] VIR MONOCYTES RELATIVE PERCENT BY AUTOMATED COUNT 5.2 % Normal [facility] Comment on above: Performed By: #### C BCA #### [facility] ([facility]) [address] [place] [address] VIR NEUTROPHILS ABSOLUTE COUNT BY AUTOMATED COUNT 4.4 10*3/uL Normal 1.5-6.6 [facility] Comment on above: Performed By: #### C BCA #### [facility] ([facility]) [address] [place] [address] VIR NEUTROPHILS RELATIVE PERCENT BY AUTOMATED COUNT 64.6 % Normal [facility] Comment on above: Performed By: #### C BCA #### [facility] ([facility]) [address] [place] [address] VIR Platelet mean volume (Bld) [Entitic vol] 7.5 fL Normal 7-12 [facility] Comment on above: Performed By: #### C BCA #### [facility] ([facility]) [address] [place] [address] VIR Platelets (Bld) [#/Vol] 327 10*3/uL Normal 150-450 [facility] Comment on above: Performed By: #### C BCA #### [facility] ([facility]) [address] [place] [address] VIR RBC COUNT 4.08 X10E12/L Normal 3.8-5.2 [facility] Comment on above: Performed By: #### C BCA #### [facility] ([facility]) [address] [place] [address] VIR WBC (Bld) [#/Vol] 6.9 10*3/uL Normal 4-11 [facility] Comment on above: Performed By: #### C BCA #### [facility] ([facility]) [address] [place] [address] VIR COMPREHENSIVE METABOLIC PANE Roberto 12-06-2024 Albumin [Mass/Vol] 3.5 g/dL Normal 3.2-5.3 [facility] Comment on above: Performed By: #### C MP #### [facility] ([facility]) [address] [place] [address] VIR ALP [Catalytic activity/Vol] 90 U/L Normal 39-130 [facility] Comment on above: Performed By: #### C MP #### [facility] ([facility]) [address] [place] [address] VIR ALT [Catalytic activity/Vol] 26 U/L Normal <=31 [facility] Comment on above: Performed By: #### C MP #### [facility] ([facility]) [address] [place] [address] VIR Anion gap [Moles/Vol] 9 mmol/L Normal 5-15 [facility] Comment on above: Performed By: #### C MP #### [facility] ([facility]) [address] [place] [address] VIR AST [Catalytic activity/Vol] 35 U/L Normal <=41 [facility] Comment on above: Performed By: #### C MP #### [facility] ([facility]) [address] [place] [address] VIR Bilirubin [Mass/Vol] 0.6 mg/dL Normal 0.3-1.2 [facility] Comment on above: Performed By: #### C MP #### [facility] ([facility]) [address] [place] [address] VIR Calcium [Mass/Vol] 8.8 mg/dL Normal 8.5-10.5 [facility] Comment on above: Performed By: #### C MP #### [facility] ([facility]) [address] [place] [address] VIR Chloride [Moles/Vol] 106 mmol/L Normal 98-109 [facility] Comment on above: Performed By: #### C MP #### [facility] ([facility]) [address] [place] [address] VIR CO2 [Moles/Vol] 26 mmol/L Normal 22-32 [facility] Comment on above: Performed By: #### C MP #### [facility] ([facility]) [address] [place] [address] VIR Creatinine [Mass/Vol] 0.62 mg/dL Normal 0.40-1.00 [facility] Comment on above: Result Comment: METH OD TRACEABLE TO IDMS STANDARD Performed By: #### C MP #### [facility] ([facility]) [address] [place] [address] VIR EGFR (CKD-EPI) NON-RACE DEPENDENT >^90 Normal >=60 [facility] Comment on above: Result Comment: Repo rted eGFR is based on the CKD-EPI 2020 equation that does not use a race coefficient. Performed By: #### C MP #### [facility] ([facility]) [address] [place] [address] VIR Glucose [Mass/Vol] 102 mg/dL High 65-99 [facility] Comment on above: Performed By: #### C MP #### [facility] ([facility]) [address] [place] [address] VIR Potassium [Moles/Vol] 4.0 mmol/L Normal 3.5-5.0 [facility] Comment on above: Performed By: #### C MP #### [facility] ([facility]) [address] [place] [address] VIR Protein [Mass/Vol] 7.1 g/dL Normal 6.0-8.0 [facility] Comment on above: Performed By: #### C MP #### [facility] ([facility]) [address] [place] [address] VIR Sodium [Moles/Vol] 141 mmol/L Normal 134-146 [facility] Comment on above: Performed By: #### C MP #### [facility] ([facility]) [address] [place] [address] VIR Urea nitrogen [Mass/Vol] 18 mg/dL Normal 5-27 [facility] Comment on above: Performed By: #### C MP #### [facility] ([facility]) [address] [place] [address] VIR HEMOGLOBIN A1Con 12-06-2024 Glucose [Mass/Vol] 108 mg/dL Normal [facility] Comment on above: Performed By: #### H A1C #### [facility] ([facility]) [address] [place] [address] VIR HbA1c (Bld) [Mass fraction] 5.4 % Normal 4.4-5.6 [facility] Comment on above: Result Comment: ADA Guidelines Result HgbA1c Normal : less than 5.7 % Prediabetes : 5.7 % to 6.4 % Diabetes : > 6.4 % Use with caution in patients with abnormal hemoglobin variants as the half-life of red blood cells and in vivo glycation rates are affected. Performed By: #### H A1C #### [facility] ([facility]) [address] [facility] [address] [place] [address] VIR INSULINon 12-06-2024 INSULIN 7.22 uIU/mL Normal 1.00-23.00 [facility] Comment on above: Order Comment: Ref. range is for FASTING NON-DIABETIC POPULATION. Performed By: #### I NSL #### [facility] ([facility]) [address] [place] [address] VIR IRONon 12-06-2024 Iron [Mass/Vol] 33 ug/dL Low 50-170 [facility] Comment on above: Performed By: #### F E #### [facility] ([facility]) [address] [place] [address] VIR LIPID PROFILEon 12-06-2024 Cholesterol [Mass/Vol] 108 mg/dL Low 150-200 [facility] Comment on above: Performed By: #### L IPR #### [facility] ([facility]) [address] [place] [address] VIR Cholesterol in HDL [Mass/Vol] 34 mg/dL Low >39 [facility] Comment on above: Result Comment: HDL <40 mg/dL - High Risk HDL > or = 40mg/dL- Desirable HDL >60 mg/dL - Negative Risk Performed By: #### L IPR #### [facility] ([facility]) [address] [place] [address] VIR Cholesterol in LDL [Mass/Vol] 58 mg/dL Normal <130 [facility] Comment on above: Result Comment: LDL <100 mg/dL - Desirable LDL >160 mg/dL - High Risk Performed By: #### L IPR #### [facility] ([facility]) [address] [place] [address] VIR CHOLESTEROL:HDL 3.2 Normal 1.0-5.0 [facility] Comment on above: Performed By: #### L IPR #### [facility] ([facility]) [address] [place] [address] VIR Triglyceride [Mass/Vol] 79 mg/dL Normal 27-150 [facility] Comment on above: Performed By: #### L IPR #### [facility] ([facility]) [address] [place] [address] VIR VERY LOW LIPOPROTEIN 16 mg/dL Normal 0-30 [facility] Comment on above: Performed By: #### L IPR #### [facility] ([facility]) [address] [place] [address] VIR T3, FREEon 12-06-2024 Free T3 [Mass/Vol] 3.21 pg/mL Normal 2.50-3.90 [facility] Comment on above: Performed By: #### F T3 #### [facility] ([facility]) [address] [place] [address] VIR THYROID PROFILE INCLUDES TSH FT4on 12-06-2024 Free T4 [Mass/Vol] 1.25 ng/dL Normal 0.61-1.60 [facility] Comment on above: Performed By: #### T HYR #### [facility] ([facility]) [address] [place] [address] VIR TSH 1.76 uIU/mL Normal 0.49-4.67 [facility] Comment on above: Performed By: #### T HYR #### [facility] ([facility]) [address] [place] [address] VIR VITAMIN D 25 HYDROXYon 12-06 VITAMIN D 25 HYD TOT 31.6 ng/mL Normal 30.0-100.0 [facility] Comment on above: Order Comment: Vitam in D status 25 [place] Vitamin D Deficiency <20 ng/mL Insufficiency 20-29 ng/mL Sufficiency 30-100 ng/mL Toxicity >100 ng/mL NOTE: A pediatric reference range has not been established by the energy broker of this kit. The [place] [employer] recommends a Vitamin D level of = or >20ng/mL in infants and children. Performed By: #### V ITD #### [facility] ([facility]) [address] [place] [address] VIR OCCULT BLOOD X 1, STOOLon FECAL OCCULT BLOOD Negative Normal Negative [facility] Comment on above: Performed By: #### O B #### [facility] ([facility]) [address] [place] [address] VIR Urine Cultureon 12-03-2024 Bacteria identified Cx Nom (U) No Growth 2 Days PERFORMED BY: [place] [address] PATHOLOGIST RESPIRATORY CARE PROGRAM DIRECTOR CARMEN JEFFERSON M.D. Normal [facility] Comment on above: Performed By: #### C UU #### [address] Urine cultureOrdered By: Bonnie Hoover on 12-03-2024 Bacteria identified Cx Nom (U) No Growth 2 Days [facility] US.doppler Carotid arteries - bilateralon 03-17-2024 Results Reviewed [facility] US.doppler Carotid arteries - bilateralOrdered By: Dion Brandon on 03-17-2024 [facility] Work Phone: US.doppler Carotid arteries - bilateralon 03-10-2024 Radiology Study observation (narrative) [facility] Alanine aminotransferase [En zymatic activity/volume] in Serum or PlasmaOrdered By: Nara Bowman on 12-10-2023 ALT [Catalytic activity/Vol] 18 U/L 7-52 [facility] Albumin [Mass/volume] in Ser um or Plasma by Bromocresol green (BCG) dye binding methoOrdered By: Nara Bowman on 12-10-2023 Albumin BCG dye [Mass/Vol] 3.9 g/dL 3.5-5.7 [facility] Alkaline phosphatase [Enzyma tic activity/volume] in Serum or PlasmaOrdered By: Nara Bowman on 12-10-2023 ALP [Catalytic activity/Vol] 107 U/L High 34-104 [facility] Aspartate aminotransferase [ Enzymatic activity/volume] in Serum or PlasmaOrdered By: Nara Bowman on 12-10-2023 AST [Catalytic activity/Vol] 28 U/L 13-39 [facility] Basophils Auto (Bld) [#/Vol] Ordered By: Nara Bowman on 12-10-2023 Basophils (Bld) [#/Vol] 0.0 10*3/uL 0.0-0.2 [facility] Basophils/100 WBC Auto (Bld) Ordered By: Nara Bowman on 12-10-2023 Basophils/100 WBC (Bld) 0.6 % . [facility] Bilirubin.total [Mass/volume ] in Serum or PlasmaOrdered By: Nara Bowman on 12-10-2023 Bilirubin [Mass/Vol] 1.0 mg/dL 0.3-1.0 [facility] Calcium [Mass/volume] in Ser um or PlasmaOrdered By: Nara Bowman on 12-10-2023 Calcium [Mass/Vol] 9.3 mg/dL 8.6-10.3 [facility] Carbon dioxide, total [Moles /volume] in Serum or PlasmaOrdered By: Nara Bowman on 12-10-2023 CO2 [Moles/Vol] 30.1 mmol/L 21.0-31.0 [facility] Chloride [Moles/volume] in S clyde or PlasmaOrdered By: Nara Bowman on 12-10-2023 Chloride [Moles/Vol] 105 mmol/L 98-107 [facility] Creatinine [Mass/volume] in Serum or PlasmaOrdered By: Nara Bowman on 12-10-2023 Creatinine [Mass/Vol] 0.72 mg/dL 0.60-1.20 [facility] Eosinophils Auto (Bld) [#/Vo l]Ordered By: Nara Bowman on 12-10-2023 Eosinophils (Bld) [#/Vol] 0.2 10*3/uL 0.0-0.45 [facility] Eosinophils/100 WBC Auto (Bl d)Ordered By: Nara Bowman on 12-10-2023 Eosinophils/100 WBC (Bld) 4.5 % . [facility] Erythrocyte distribution wid th Auto (RBC) [Ratio]Ordered By: Nara Bowman on 12-10-2023 Erythrocyte distribution width (RBC) [Ratio] 15.5 % High 11.9-15.3 [facility] Globulin Calc (S) [Mass/Vol] Ordered By: Nara Bowman on 12-10-2023 Globulin (S) [Mass/Vol] 4.2 g/dL [facility] Glucose [Mass/volume] in Ser um or PlasmaOrdered By: Nara Bowman on 12-10-2023 Glucose [Mass/Vol] 95 mg/dL 70-100 [facility] Comment on above: ADA recommended refe rence rangeRandom Glucose Reference Range is dependent on time and content of last meal. Glucose of more than 200 mg/dL in a nonstressed, ambulatory subject supports the diagnosis of Diabetes Mellitus. Hematocrit Auto (Bld) [Volum e fraction]Ordered By: Nara Bowman on 12-10-2023 Hematocrit (Bld) [Volume fraction] 37.0 % 34.0-46.4 [facility] Hemoglobin [Mass/volume] in BloodOrdered By: Nara Bowman on 12-10-2023 Hemoglobin (Bld) [Mass/Vol] 12.4 g/dL 11.8-15.4 [facility] Leukocytes [#/volume] correc blanca for nucleated erythrocytes in Blood by Automated counOrdered By: Nara Bowman on 12-10-2023 WBC corrected for nucl RBC Auto (Bld) [#/Vol] 5.1 10*3/uL 3.8-11.6 [facility] Lymphocytes Auto (Bld) [#/Vo l]Ordered By: Nara Bowman on 12-10-2023 Lymphocytes (Bld) [#/Vol] 1.6 10*3/uL 1.00-4.8 [facility] Lymphocytes/100 WBC Auto (Bl d)Ordered By: Nara Bowman on 12-10-2023 Lymphocytes/100 WBC (Bld) 30.7 % . [facility] MCH Auto (RBC) [Entitic mass ]Ordered By: Nara Bowman on 12-10-2023 MCH (RBC) [Entitic mass] 30.3 pg 24.7-34.3 [facility] MCHC Auto (RBC) [Mass/Vol]Or dered By: Nara Bowman on 12-10-2023 MCHC (RBC) [Mass/Vol] 33.5 g/dL 32.0-35.0 [facility] MCV Auto (RBC) [Entitic vol] Ordered By: Nara Bowman on 12-10-2023 MCV (RBC) [Entitic vol] 90.4 fL 80-100 [facility] Monocytes Auto (Bld) [#/Vol] Ordered By: Nara Bowman on 12-10-2023 Monocytes (Bld) [#/Vol] 0.4 10*3/uL 0.0-0.8 [facility] Monocytes/100 WBC Auto (Bld) Ordered By: Nara Bowman on 12-10-2023 Monocytes/100 WBC (Bld) 8.6 % . [facility] Neutrophils Auto (Bld) [#/Vo l]Ordered By: Nara Bowman on 12-10-2023 Neutrophils (Bld) [#/Vol] 2.9 10*3/uL 1.8-7.7 [facility] Neutrophils/100 WBC Auto (Bl d)Ordered By: Nara Bowman on 12-10-2023 Neutrophils/100 WBC (Bld) 55.6 % . [facility] No Panel InformationOrdered By: Nara Bowman on 12-10-2023 Estimated GFR (CKD-EPI) > 60.0 mL/Min [facility] Creatinine Clearance (Chem 50.85 [facility] Nucleated erythrocytes [Pres ence] in Blood by Automated countOrdered By: Nara Bowman on 12-10-2023 Nucleated RBC Auto Ql (Bld) 0.1 /100{WBC} 0-0.5 [facility] Platelet mean volume Auto (B ld) [Entitic vol]Ordered By: Nara Bowman on 12-10-2023 Platelet mean volume (Bld) [Entitic vol] 7.1 fL 6.3-10.7 [facility] Platelets Auto (Bld) [#/Vol] Ordered By: Nara Bowman on 12-10-2023 Platelets (Bld) [#/Vol] 281 10*3/uL 150-450 [facility] Potassium [Moles/volume] in Serum or PlasmaOrdered By: Nara Bowman on 12-10-2023 Potassium [Moles/Vol] 4.2 mmol/L 3.5-5.1 [facility] Protein [Mass/volume] in Ser um or PlasmaOrdered By: Nara Bowman on 12-10-2023 Protein [Mass/Vol] 8.1 g/dL 6.4-8.9 [facility] RBC Auto (Bld) [#/Vol]Ordere d By: Nara Bowman on 12-10-2023 RBC (Bld) [#/Vol] 4.10 10*6/uL 3.60-5.00 [facility] Serum or plasma albumin/glob ulin mass ratioOrdered By: Nara Bowman on 12-10-2023 Albumin/Globulin [Mass ratio] 0.9 {ratio} [facility] Serum or plasma anion gap de terminationOrdered By: Nara Bowman on 12-10-2023 Anion gap [Moles/Vol] 9.1 mmol/L 6.0-15.0 [facility] Serum or plasma cancer antig en 125 (CA-125) measurement (units/volume)Ordered By: Nara Bowman on 12-10-2023 Cancer Ag 125 Qn 19.8 [arb'U]/mL 0.0-38.1 [facility] Comment on above: [employer] El ectrochemiluminescence Immunoassay(ECLIA)Values obtained with different assay methods or kits cannotbe used interchangeably. Results cannot be interpreted asabsolute evidence of the presence or absence of malignantdisease.Performed at: [address] [id number] Director: Adrian Coello PhD, Phone: [phone] Sodium [Moles/volume] in Ser um or PlasmaOrdered By: Naar Bowman on 12-10-2023 Sodium [Moles/Vol] 140 mmol/L 136-145 [facility] Urea nitrogen [Mass/volume] in Serum or PlasmaOrdered By: Nara Bowman on 12-10-2023 Urea nitrogen [Mass/Vol] 17 mg/dL 7-25 [facility] WBC Auto (Bld) [#/Vol]Ordere d By: Nara Bowman on 12-10-2023 WBC (Bld) [#/Vol] 5.1 10*3/uL 3.8-11.6 [facility] Alanine aminotransferase [En zymatic activity/volume] in Serum or PlasmaOrdered By: Bonnie Hendricks on 06-06-2023 ALT [Catalytic activity/Vol] 11 U/L 7-52 [facility] Albumin [Mass/volume] in Ser um or Plasma by Bromocresol green (BCG) dye binding methoOrdered By: Bonnie Hendricks on 06-06-2023 Albumin BCG dye [Mass/Vol] 3.7 g/dL 3.5-5.7 [facility] Alkaline phosphatase [Enzyma tic activity/volume] in Serum or PlasmaOrdered By: Bonnie Hendricks on 06-06-2023 ALP [Catalytic activity/Vol] 111 U/L 34-104 [facility] Aspartate aminotransferase [ Enzymatic activity/volume] in Serum or PlasmaOrdered By: Bonnie Hendricks on 06-06-2023 AST [Catalytic activity/Vol] 21 U/L 13-39 [facility] Basophils Auto (Bld) [#/Vol] Ordered By: Bonnie Hendricks on 06-06-2023 Basophils (Bld) [#/Vol] 0.0 10*3/uL 0.0-0.2 [facility] Basophils/100 WBC Auto (Bld) Ordered By: Bonnie Hendricks on 06-06-2023 Basophils/100 WBC (Bld) 0.5 % . [facility] Bilirubin.total [Mass/volume ] in Serum or PlasmaOrdered By: Bonnie Hendricks on 06-06-2023 Bilirubin [Mass/Vol] 0.6 mg/dL 0.3-1.0 [facility] Calcium [Mass/volume] in Ser um or PlasmaOrdered By: Bonnie Hendricks on 06-06-2023 Calcium [Mass/Vol] 9.4 mg/dL 8.6-10.3 [facility] Carbon dioxide, total [Moles /volume] in Serum or PlasmaOrdered By: Bonnie Hendricks on 06-06-2023 CO2 [Moles/Vol] 29.4 mmol/L 21.0-31.0 [facility] Chloride [Moles/volume] in S clyde or PlasmaOrdered By: Bonnie Hendricks on 06-06-2023 Chloride [Moles/Vol] 103 mmol/L 98-107 [facility] Creatinine [Mass/volume] in Serum or PlasmaOrdered By: Bonnie Hendricks on 06-06-2023 Creatinine [Mass/Vol] 0.64 mg/dL 0.60-1.20 [facility] Eosinophils Auto (Bld) [#/Vo l]Ordered By: Bonnie Hendricks on 06-06-2023 Eosinophils (Bld) [#/Vol] 0.1 10*3/uL 0.0-0.45 [facility] Eosinophils/100 WBC Auto (Bl d)Ordered By: Bonnie Hendricks on 06-06-2023 Eosinophils/100 WBC (Bld) 2.1 % . [facility] Erythrocyte distribution wid th Auto (RBC) [Ratio]Ordered By: Bonnie Hendricks on 06-06-2023 Erythrocyte distribution width (RBC) [Ratio] 15.6 % 11.9-15.3 [facility] Globulin Calc (S) [Mass/Vol] Ordered By: Bonnie Hendricks on 06-06-2023 Globulin (S) [Mass/Vol] 4.1 g/dL [facility] Glucose [Mass/volume] in Ser um or PlasmaOrdered By: Bonnie Hendricks on 06-06-2023 Glucose [Mass/Vol] 93 mg/dL 70-100 [facility] Comment on above: ADA recommended refe rence rangeRandom Glucose Reference Range is dependent on time and content of last meal. Glucose of more than 200 mg/dL in a nonstressed, ambulatory subject supports the diagnosis of Diabetes Mellitus. Hematocrit Auto (Bld) [Volum e fraction]Ordered By: Bonnie Hendricks on 06-06-2023 Hematocrit (Bld) [Volume fraction] 37.2 % 34.0-46.4 [facility] Hemoglobin [Mass/volume] in BloodOrdered By: Bonnie Hendricks on 06-06-2023 Hemoglobin (Bld) [Mass/Vol] 12.3 g/dL 11.8-15.4 [facility] Leukocytes [#/volume] correc blanca for nucleated erythrocytes in Blood by Automated counOrdered By: Bonnie Hendricks on 06-06-2023 WBC corrected for nucl RBC Auto (Bld) [#/Vol] 5.9 10*3/uL 3.8-11.6 [facility] Lymphocytes Auto (Bld) [#/Vo l]Ordered By: Bonnie Hendricks on 06-06-2023 Lymphocytes (Bld) [#/Vol] 1.6 10*3/uL 1.00-4.8 [facility] Lymphocytes/100 WBC Auto (Bl d)Ordered By: Bonnie Hendricks on 06-06-2023 Lymphocytes/100 WBC (Bld) 27.0 % . [facility] MCH Auto (RBC) [Entitic mass ]Ordered By: Bonnie Hendricks on 06-06-2023 MCH (RBC) [Entitic mass] 28.1 pg 24.7-34.3 [facility] MCHC Auto (RBC) [Mass/Vol]Or dered By: Bonnie Hendricks on 06-06-2023 MCHC (RBC) [Mass/Vol] 32.9 g/dL 32.0-35.0 [facility] MCV Auto (RBC) [Entitic vol] Ordered By: Bonnie Hendricks on 06-06-2023 MCV (RBC) [Entitic vol] 85.4 fL 80-100 [facility] Monocytes Auto (Bld) [#/Vol] Ordered By: Bonnie Hendricks on 06-06-2023 Monocytes (Bld) [#/Vol] 0.5 10*3/uL 0.0-0.8 [facility] Monocytes/100 WBC Auto (Bld) Ordered By: Bonnie Hendricks on 06-06-2023 Monocytes/100 WBC (Bld) 7.8 % . [facility] Neutrophils Auto (Bld) [#/Vo l]Ordered By: Bonnie Hendricks on 06-06-2023 Neutrophils (Bld) [#/Vol] 3.7 10*3/uL 1.8-7.7 [facility] Neutrophils/100 WBC Auto (Bl d)Ordered By: Bonnie Hendricks on 06-06-2023 Neutrophils/100 WBC (Bld) 62.6 % . [facility] No Panel InformationOrdered By: Bonnie Hendricks on 06-06-2023 Estimated GFR (CKD-EPI) > 60.0 mL/Min [facility] Creatinine Clearance (Chem N/A [facility] Nucleated erythrocytes [Pres ence] in Blood by Automated countOrdered By: Bonnie Hendricks on 06-06-2023 Nucleated RBC Auto Ql (Bld) 0.1 /100{WBC} 0-0.5 [facility] Platelet mean volume Auto (B ld) [Entitic vol]Ordered By: Bonnie Hendricks on 06-06-2023 Platelet mean volume (Bld) [Entitic vol] 6.9 fL 6.3-10.7 [facility] Platelets Auto (Bld) [#/Vol] Ordered By: Bonnie Hendricks on 06-06-2023 Platelets (Bld) [#/Vol] 333 10*3/uL 150-450 [facility] Potassium [Moles/volume] in Serum or PlasmaOrdered By: Bonnie Hendricks on 06-06-2023 Potassium [Moles/Vol] 3.9 mmol/L 3.5-5.1 [facility] Protein [Mass/volume] in Ser um or PlasmaOrdered By: Bonnie Hendricks on 06-06-2023 Protein [Mass/Vol] 7.8 g/dL 6.4-8.9 [facility] RBC Auto (Bld) [#/Vol]Ordere d By: Bonnie Hendricks on 06-06-2023 RBC (Bld) [#/Vol] 4.36 10*6/uL 3.60-5.00 [facility] Serum or plasma albumin/glob ulin mass ratioOrdered By: Bonnie Hendricks on 06-06-2023 Albumin/Globulin [Mass ratio] 0.9 {ratio} [facility] Serum or plasma anion gap de terminationOrdered By: Bonnie Hendricks on 06-06-2023 Anion gap [Moles/Vol] 8.5 mmol/L 6.0-15.0 [facility] Serum or plasma cancer antig en 125 (CA-125) measurement (units/volume)Ordered By: Bonnie Hendricks on 06-06-2023 Cancer Ag 125 Qn 15.5 [arb'U]/mL 0.0-38.1 [facility] Comment on above: [employer] El ectrochemiluminescence Immunoassay(ECLIA)Values obtained with different assay methods or kits cannotbe used interchangeably. Results cannot be interpreted asabsolute evidence of the presence or absence of malignantdisease.Performed at: [facility] [id number] Director: Adrian Coello PhD, Phone: [phone] Sodium [Moles/volume] in Ser um or PlasmaOrdered By: Bonnie Hendricks on 06-06-2023 Sodium [Moles/Vol] 137 mmol/L 136-145 [facility] Urea nitrogen [Mass/volume] in Serum or PlasmaOrdered By: Bonnie Hendricks on 06-06-2023 Urea nitrogen [Mass/Vol] 12 mg/dL 7-25 [facility] WBC Auto (Bld) [#/Vol]Ordere d By: Bonnie Hendricks on 06-06-2023 WBC (Bld) [#/Vol] 5.9 10*3/uL 3.8-11.6 [facility] Alanine aminotransferase [En zymatic activity/volume] in Serum or PlasmaOrdered By: Bonnie Hendricks on 12-12-2022 ALT [Catalytic activity/Vol] 8 U/L 7-52 [facility] Albumin [Mass/volume] in Ser um or Plasma by Bromocresol green (BCG) dye binding methoOrdered By: Bonnie Hendricks on 12-12-2022 Albumin BCG dye [Mass/Vol] 3.8 g/dL 3.5-5.7 [facility] Alkaline phosphatase [Enzyma tic activity/volume] in Serum or PlasmaOrdered By: Bonnie Hendricks on 12-12-2022 ALP [Catalytic activity/Vol] 87 U/L 34-104 [facility] Aspartate aminotransferase [ Enzymatic activity/volume] in Serum or PlasmaOrdered By: Bonnie Hendricks on 12-12-2022 AST [Catalytic activity/Vol] 13 U/L 13-39 [facility] Basophils Auto (Bld) [#/Vol] Ordered By: Bonnie Hendricks on 12-12-2022 Basophils (Bld) [#/Vol] 0.0 10*3/uL 0.0-0.2 [facility] Basophils/100 WBC Auto (Bld) Ordered By: Bonnie Hendricks on 12-12-2022 Basophils/100 WBC (Bld) 0.6 % . [facility] Bilirubin.total [Mass/volume ] in Serum or PlasmaOrdered By: Bonnie Hendricks on 12-12-2022 Bilirubin [Mass/Vol] 0.5 mg/dL 0.3-1.0 [facility] Calcium [Mass/volume] in Ser um or PlasmaOrdered By: Bonnie Hendricks on 12-12-2022 Calcium [Mass/Vol] 9.1 mg/dL 8.6-10.3 [facility] Carbon dioxide, total [Moles /volume] in Serum or PlasmaOrdered By: Bonnie Hendricks on 12-12-2022 CO2 [Moles/Vol] 27.1 mmol/L 21.0-31.0 [facility] Chloride [Moles/volume] in S clyde or PlasmaOrdered By: Bonnie Hendricks on 12-12-2022 Chloride [Moles/Vol] 104 mmol/L 98-107 [facility] Creatinine [Mass/volume] in Serum or PlasmaOrdered By: Bonnie Hendricks on 12-12-2022 Creatinine [Mass/Vol] 0.69 mg/dL 0.60-1.20 [facility] Eosinophils Auto (Bld) [#/Vo l]Ordered By: Bonnie Hendricks on 12-12-2022 Eosinophils (Bld) [#/Vol] 0.1 10*3/uL 0.0-0.45 [facility] Eosinophils/100 WBC Auto (Bl d)Ordered By: Bonnie Hendricks on 12-12-2022 Eosinophils/100 WBC (Bld) 3.1 % . [facility] Erythrocyte distribution wid th Auto (RBC) [Ratio]Ordered By: Bonnie Hendricks on 12-12-2022 Erythrocyte distribution width (RBC) [Ratio] 14.9 % 11.9-15.3 [facility] Globulin Calc (S) [Mass/Vol] Ordered By: Bonnie Hendricks on 12-12-2022 Globulin (S) [Mass/Vol] 4.0 g/dL [facility] Glucose [Mass/volume] in Ser um or PlasmaOrdered By: Bonnie Hendricks on 12-12-2022 Glucose [Mass/Vol] 99 mg/dL 70-100 [facility] Comment on above: ADA recommended refe rence rangeRandom Glucose Reference Range is dependent on time and content of last meal. Glucose of more than 200 mg/dL in a nonstressed, ambulatory subject supports the diagnosis of Diabetes Mellitus. Hematocrit Auto (Bld) [Volum e fraction]Ordered By: Bonnie Hendricks on 12-12-2022 Hematocrit (Bld) [Volume fraction] 35.1 % 34.0-46.4 [facility] Hemoglobin [Mass/volume] in BloodOrdered By: Bonnie Hendricks on 12-12-2022 Hemoglobin (Bld) [Mass/Vol] 11.5 g/dL 11.8-15.4 [facility] Leukocytes [#/volume] correc blanca for nucleated erythrocytes in Blood by Automated counOrdered By: Bonnie Hendricks on 12-12-2022 WBC corrected for nucl RBC Auto (Bld) [#/Vol] 4.8 10*3/uL 3.8-11.6 [facility] Lymphocytes Auto (Bld) [#/Vo l]Ordered By: Bonnie Hendricks on 12-12-2022 Lymphocytes (Bld) [#/Vol] 1.5 10*3/uL 1.00-4.8 [facility] Lymphocytes/100 WBC Auto (Bl d)Ordered By: Bonnie Hendricks on 12-12-2022 Lymphocytes/100 WBC (Bld) 31.0 % . [facility] MCH Auto (RBC) [Entitic mass ]Ordered By: Bonnie Hendricks on 12-12-2022 MCH (RBC) [Entitic mass] 28.6 pg 24.7-34.3 [facility] MCHC Auto (RBC) [Mass/Vol]Or dered By: Bonnie Hendricks on 12-12-2022 MCHC (RBC) [Mass/Vol] 32.8 g/dL 32.0-35.0 [facility] MCV Auto (RBC) [Entitic vol] Ordered By: Bonnie Hendricks on 12-12-2022 MCV (RBC) [Entitic vol] 87.1 fL 80-100 [facility] Monocytes Auto (Bld) [#/Vol] Ordered By: Bonnie Hendricks on 12-12-2022 Monocytes (Bld) [#/Vol] 0.4 10*3/uL 0.0-0.8 [facility] Monocytes/100 WBC Auto (Bld) Ordered By: Bonnie Hendricks on 12-12-2022 Monocytes/100 WBC (Bld) 8.4 % . [facility] Neutrophils Auto (Bld) [#/Vo l]Ordered By: Bonnie Hendricks on 12-12-2022 Neutrophils (Bld) [#/Vol] 2.8 10*3/uL 1.8-7.7 [facility] Neutrophils/100 WBC Auto (Bl d)Ordered By: Bonnie Hendricks on 12-12-2022 Neutrophils/100 WBC (Bld) 56.9 % . [facility] No Panel InformationOrdered By: Bonnie Hendricks on 12-12-2022 Estimated GFR (CKD-EPI) > 60.0 mL/Min [facility] Creatinine Clearance (Chem N/A [facility] Nucleated erythrocytes [Pres ence] in Blood by Automated countOrdered By: Bonnie Hendricks on 12-12-2022 Nucleated RBC Auto Ql (Bld) 0.2 /100{WBC} 0-0.5 [facility] Platelet mean volume Auto (B ld) [Entitic vol]Ordered By: Bonnie Hendricks on 12-12-2022 Platelet mean volume (Bld) [Entitic vol] 6.9 fL 6.3-10.7 [facility] Platelets Auto (Bld) [#/Vol] Ordered By: Bonnie Hendricks on 12-12-2022 Platelets (Bld) [#/Vol] 315 10*3/uL 150-450 [facility] Potassium [Moles/volume] in Serum or PlasmaOrdered By: Bonnie Hendricks on 12-12-2022 Potassium [Moles/Vol] 4.3 mmol/L 3.5-5.1 [facility] Protein [Mass/volume] in Ser um or PlasmaOrdered By: Bonnie Hendricks on 12-12-2022 Protein [Mass/Vol] 7.8 g/dL 6.4-8.9 [facility] RBC Auto (Bld) [#/Vol]Ordere d By: Bonnie Hendricks on 12-12-2022 RBC (Bld) [#/Vol] 4.04 10*6/uL 3.60-5.00 [facility] Serum or plasma albumin/glob ulin mass ratioOrdered By: Bonnie Hendricks on 12-12-2022 Albumin/Globulin [Mass ratio] 1.0 {ratio} [facility] Serum or plasma anion gap de terminationOrdered By: Bonnie Hendricks on 12-12-2022 Anion gap [Moles/Vol] 10.2 mmol/L 6.0-15.0 [facility] Serum or plasma cancer antig en 125 (CA-125) measurement (units/volume)Ordered By: Bonnie Hendricks on 12-12-2022 Cancer Ag 125 Qn 19.0 [arb'U]/mL 0.0-38.1 [facility] Comment on above: [facility] [employer] El ectrochemiluminescence Immunoassay(ECLIA)Values obtained with different assay methods or kits cannotbe used interchangeably. Results cannot be interpreted asabsolute evidence of the presence or absence of malignantdisease.Performed at: [place] [id number] Director: Adrian Coello PhD, Phone: [phone] Sodium [Moles/volume] in Ser um or PlasmaOrdered By: Bonnie Hendricks on 12-12-2022 Sodium [Moles/Vol] 137 mmol/L 136-145 [facility] Urea nitrogen [Mass/volume] in Serum or PlasmaOrdered By: Bonnie Hendricks on 12-12-2022 Urea nitrogen [Mass/Vol] 15 mg/dL 7-25 [facility] WBC Auto (Bld) [#/Vol]Ordere d By: Bonnie Hendricks on 12-12-2022 WBC (Bld) [#/Vol] 4.8 10*3/uL 3.8-11.6 [facility] CULTURE URINEon 09-19-2022 CULTURE URINE Isolate 1 [...] Trimethoprim/Sulfamethoxa zole <=20 S F Normal [facility] Comment on above: Performed By: #### C RP, CMP #### [facility] [address] [place] [address] Dr. Sung Moore CBC AUTO DIFFon 09-16-2022 BASO # 0.0 103/ul Normal 0.0-0.1 [facility] Comment on above: Performed By: #### C RP, CMP #### [facility] [address] [place] [address] Dr. Sung Moore Basophils/100 WBC (Bld) 0.3 % Normal 0.2-2.0 [facility] Comment on above: Performed By: #### C RP, CMP #### [facility] [address] [place] [address] Dr. Sung Moore EO # 0.2 103/ul Normal 0.0-0.7 [facility] Comment on above: Performed By: #### C RP, CMP #### [facility] [address] [place] [address] Dr. Sung Moore Eosinophils/100 WBC (Bld) 3.4 % Normal 0.9-7.0 [facility] Comment on above: Performed By: #### C RP, CMP #### [facility] [address] [place] [address] Dr. Sung Moore Erythrocyte distribution width (RBC) [Ratio] 16.1 % Critically high 11.0-15.0 [facility] Comment on above: Performed By: #### C RP, CMP #### [facility] [address] [place] [address] Dr. Sung Moore Hematocrit (Bld) [Volume fraction] 37.0 % Normal 36.0-48.0 [facility] Comment on above: Performed By: #### C RP, CMP #### [facility] [address] [place] [address] Dr. Sung Moore Hemoglobin (Bld) [Mass/Vol] 12.1 g/dL Normal 12.0-16.0 [facility] Comment on above: Performed By: #### C RP, CMP #### [facility] [address] [place] [address] Dr. Sung Moore IG # 0.02 10e3/ul Normal 0.00-0.03 [facility] Comment on above: Performed By: #### C RP, CMP #### [facility] [address] [place] [address] Dr. Sung Moore IG % 0.3 % Normal 0.0-0.5 [facility] Comment on above: Performed By: #### C RP, CMP #### [facility] [address] [place] [address] Dr. Sung Moore LYMPH # 2.0 103/ul Normal 1.2-3.8 [facility] Comment on above: Performed By: #### C RP, CMP #### [facility] [address] [place] [address] Dr. Sung Moore Lymphocytes/100 WBC (Bld) 29.0 % Normal 20.5-60.0 [facility] Comment on above: Performed By: #### C RP, CMP #### [facility] [address] [place] [address] Dr. Sung Moore MANUAL DIFF REQ NO Normal [facility] Comment on above: Performed By: #### C RP, CMP #### [facility] [address] [place] [address] Dr. Sung Moore MCH (RBC) [Entitic mass] 28.6 pg Normal 26.7-34.0 [facility] Comment on above: Performed By: #### C RP, CMP #### [facility] [address] [place] [address] Dr. Sung Moore MCHC (RBC) [Mass/Vol] 32.7 g/dL Normal 29.9-35.2 [facility] Comment on above: Performed By: #### C RP, CMP #### [facility] [address] [place] [address] Dr. Sung Moore MCV (RBC) [Entitic vol] 87.5 fL Normal 81.0-99.0 [facility] Comment on above: Performed By: #### C RP, CMP #### [facility] [address] [place] [address] Dr. Sung Moore MONO # 0.5 103/ul Normal 0.3-0.8 [facility] Comment on above: Performed By: #### C RP, CMP #### [facility] [address] [place] [address] Dr. Sung Moore Monocytes/100 WBC (Bld) 6.7 % Normal 1.7-12.0 [facility] Comment on above: Performed By: #### C RP, CMP #### [facility] [address] [place] [address] Dr. Sung Moore NEUT # 4.1 103/ul Normal 1.4-6.5 [facility] Comment on above: Performed By: #### C RP, CMP #### [facility] [address] [place] [address] Dr. Sung Moore Neutrophils/100 WBC (Bld) 60.3 % Normal 43.0-75.0 [facility] Comment on above: Performed By: #### C RP, CMP #### [facility] [address] [place] [address] Dr. Sung Moore Platelet mean volume (Bld) [Entitic vol] 8.9 fL Critically low 9.5-13.5 [facility] Comment on above: Performed By: #### C RP, CMP #### [facility] [address] [place] [address] Dr. Sung Moore PLT 255 103/ul Normal 150-450 [facility] Comment on above: Performed By: #### C RP, CMP #### [facility] [address] [place] [address] Dr. Sung Moore RBC 4.23 106/ul Normal 4.20-5.40 [facility] Comment on above: Performed By: #### C RP, CMP #### [facility] [address] [place] [address] Dr. Sung Moore WBC 6.8 103/ul Normal 4.0-11.0 [facility] Comment on above: Performed By: #### C RP, CMP #### [facility] [address] [place] [address] Dr. Sung SINGER URINE PROFILEon 3 Bilirubin Ql (U) Negative Normal NEGATIVE [facility] Comment on above: Performed By: #### C MP, BNP #### [facility] [address] [place] [address] Dr. Sung Moore Clarity (U) SL CLOUDY Abnormal CLEAR [facility] Comment on above: Performed By: #### C MP, BNP #### [facility] [address] [place] [address] Dr. Sung Moore Color (U) YELLOW Normal YELLOW [facility] Comment on above: Performed By: #### C MP, BNP #### [facility] [address] [place] [address] Dr. Sung Moore ERURHETT A micrscopic examina tion will be performed if indicated. Normal [facility] Comment on above: Performed By: #### C MP, BNP #### [facility] [address] [place] [address] Dr. Sung Moore Glucose Ql (U) Negative Normal NEGATIVE [facility] Comment on above: Performed By: #### C MP, BNP #### [facility] [address] [place] [address] Dr. Sung Moore Hemoglobin Ql (U) SMALL Abnormal NEGATIVE [facility] Comment on above: Performed By: #### C MP, BNP #### [facility] [address] [place] [address] Dr. Sung Moore Ketones Ql (U) Negative Normal NEGATIVE [facility] Comment on above: Performed By: #### C MP, BNP #### [facility] [address] [place] [address] Dr. Sung Moore LEUKOCYTES LARGE Abnormal NEGATIVE [facility] Comment on above: Performed By: #### C MP, BNP #### [facility] [address] [place] [address] Dr. Sung Moore Nitrite Ql (U) Positive Abnormal NEGATIVE [facility] Comment on above: Performed By: #### C MP, BNP #### [facility] [address] [place] [address] Dr. Sung Moore pH (U) 8.5 [pH] Normal 5-9 [facility] Comment on above: Performed By: #### C MP, BNP #### [facility] [address] [place] [address] Dr. Sung Moore SPEC GRAVITY 1.010 Normal 1.005-<=1. 025 [facility] Comment on above: Performed By: #### C MP, BNP #### [facility] [address] [place] [address] Dr. Sung Moore UA PROTEIN TRACE Normal NEGATIVE/ TRACE [facility] Comment on above: Performed By: #### C MP, BNP #### [facility] [address] [place] [address] Dr. Sung Moore UR MICRO IND INDICATED Normal [facility] Comment on above: Performed By: #### C MP, BNP #### [facility] [address] [place] [address] Dr. Sung Moore Urobilinogen Qn (U) 0.2 {David'U}/dL Normal 0.2 - 1. 0 [facility] Comment on above: Performed By: #### C MP, BNP #### [facility] [address] [place] [address] Dr. Sung Moore LACTATE/LACTIC ACIDon 2022 Lactate [Moles/Vol] 1.0 mmol/L Normal 0.4-2.0 [facility] Comment on above: Performed By: #### L ACT #### [facility] [address] [place] [address] Dr. Sung Moore PROF 14(COMP METB)on 023 Albumin [Mass/Vol] 3.5 g/dL Normal 3.4-5.0 [facility] Comment on above: Performed By: #### C MP, BNP #### [facility] [address] [place] [address] Dr. Sung Moore Albumin/Globulin [Mass ratio] 0.9 {ratio} Normal [facility] Comment on above: Performed By: #### C MP, BNP #### [facility] [address] [place] [address] [address] Sung Moore ALP [Catalytic activity/Vol] 113 U/L Normal 46-116 [facility] Comment on above: Performed By: #### C MP, BNP #### [facility] [address] [place] [address] [address] Sung Moore ALT [Catalytic activity/Vol] 14 U/L Normal 14-59 [facility] Comment on above: Performed By: #### C MP, BNP #### [facility] [address] [place] [address] [address] Sung Moore Anion gap [Moles/Vol] 13.5 mmol/L Normal [facility] Comment on above: Performed By: #### C MP, BNP #### [facility] [address] [place] [address] [address] Sung Moore AST [Catalytic activity/Vol] 9 U/L Critically low 15-37 [facility] Comment on above: Performed By: #### C MP, BNP #### [facility] [address] [place] [address] [address] Sung Moore Bilirubin [Mass/Vol] 0.3 mg/dL Normal 0.2-1.0 [facility] Comment on above: Performed By: #### C MP, BNP #### [facility] [address] [place] [address] [address] Sung Moore Calcium [Mass/Vol] 9.0 mg/dL Normal 8.5-10.1 [facility] Comment on above: Performed By: #### C MP, BNP #### [facility] [address] [place] [address] [address] Sung Moore Chloride [Moles/Vol] 104 mmol/L Normal 98-107 [facility] Comment on above: Performed By: #### C MP, BNP #### [facility] [address] [place] [address] Dr. Sung Moore CO2 [Moles/Vol] 27.3 mmol/L Normal 21.0-32.0 [facility] Comment on above: Performed By: #### C MP, BNP #### [facility] [address] [place] [address] Dr. Sung Moore Creatinine [Mass/Vol] 0.89 mg/dL Normal 0.55-1.02 [facility] Comment on above: Performed By: #### C MP, BNP #### [facility] [address] [place] [address] Dr. Sung Moore EGFR-AF GABONESE >60 Normal >=60 [facility] Comment on above: Performed By: #### C MP, BNP #### [facility] [address] [place] [address] Dr. Sung Moore EGFR-NON AF GABONESE >60 Normal >=60 [facility] Comment on above: Performed By: #### C MP, BNP #### [facility] [address] [place] [address] Dr. Sung Moore Globulin (S) [Mass/Vol] 4.0 g/dL Normal [facility] Comment on above: Performed By: #### C MP, BNP #### [facility] [address] [place] [address] Dr. Sung Moore Glucose [Mass/Vol] 119 mg/dL Critically high 74-106 [facility] [place] Comment on above: Performed By: #### C MP, BNP #### [facility] [address] [place] [address] Dr. Sung Moore Potassium [Moles/Vol] 3.8 mmol/L Normal 3.5-5.1 [facility] Comment on above: Performed By: #### C MP, BNP #### [facility] [address] [place] [address] Dr. Sung Moore Protein [Mass/Vol] 7.5 g/dL Normal 6.4-8.2 [facility] Comment on above: Performed By: #### C MP, BNP #### [facility] [address] [place] [address] Dr. Sung Moore Sodium [Moles/Vol] 141 mmol/L Normal 136-145 [facility] Comment on above: Performed By: #### C MP, BNP #### [facility] [address] [place] [address] Dr. Sung Moore Urea nitrogen [Mass/Vol] 22.0 mg/dL Critically high 7.0-18.0 [facility] Comment on above: Performed By: #### C MP, BNP #### [facility] [address] [place] [address] Dr. Sung Moore Urea nitrogen/Creatinine [Mass ratio] 24.7 mg/mg Normal [facility] Comment on above: Performed By: #### C MP, BNP #### [facility] [address] [place] [address] Dr. Sung Moore URINE MICROSCOPIC ONLYon BACTERIA LARGE Abnormal NONE SEEN [facility] Comment on above: Performed By: #### C MP, BNP #### [facility] [address] [place] [address] Dr. Sung Moore Bacteria identified Cx Nom (U) INDICATED Normal [facility] Comment on above: Performed By: #### C MP, BNP #### [facility] [address] [place] [address] Dr. Sung Moore CAST NONE SEEN Normal NONE SEEN [facility] Comment on above: Performed By: #### C MP, BNP #### [facility] [address] [place] [address] Dr. Sung Moore Crystals LM Nom (Urine sed) NONE SEEN Normal NONE SEEN [facility] Comment on above: Performed By: #### C MP, BNP #### [facility] [address] [place] [address] Dr. Sung Moore Epithelial cells LM Ql (Urine sed) FEW Abnormal NONE SEEN /RARE [facility] Comment on above: Performed By: #### C MP, BNP #### [facility] [address] [place] [address] Dr. Sung Moore MUCOUS TRACE Abnormal NONE SEEN [facility] Comment on above: Performed By: #### C MP, BNP #### [facility] [address] [address] [address] Sung Moore RBC 10-20 Abnormal 0-2 [facility] Comment on above: Performed By: #### C MP, BNP #### [facility] [address] [place], [place] [address] Dr. Sung Moore WBC (U) [#/Vol] /uL Abnormal NONE SEEN [facility] Comment on above: Performed By: #### C MP, BNP #### [facility] [address] [id number] Sung Moore Albumin [Mass/volume] in Ser um or PlasmaOrdered By: Bonnie Hendricks on 05-16-2022 Albumin [Mass/Vol] 3.5 g/dL 3.2-5.5 [facility] Basophils Auto (Bld) [#/Vol] Ordered By: Bonnie Hendricks on 05-16-2022 Basophils (Bld) [#/Vol] 0.0 10*3/uL 0.0-0.2 [facility] Basophils/100 WBC Auto (Bld) Ordered By: Bonnie Hendricks on 05-16-2022 Basophils/100 WBC (Bld) 0.4 % . [facility] Creatinine and Glomerular fi ltration rate.predicted panel (S/P/Bld)Ordered By: Bonnie Hendricks on 05-16-2022 Creatinine [Mass/Vol] 0.70 mg/dL 0.44-1.03 [facility] Eosinophils Auto (Bld) [#/Vo l]Ordered By: Bonnie Hendricks on 05-16-2022 Eosinophils (Bld) [#/Vol] 0.2 10*3/uL 0.0-0.45 [facility] Eosinophils/100 WBC Auto (Bl d)Ordered By: Bonnie Hendricks on 05-16-2022 Eosinophils/100 WBC (Bld) 3.0 % . [facility] Erythrocyte distribution wid th Auto (RBC) [Ratio]Ordered By: Bonnie Hendricks on 05-16-2022 Erythrocyte distribution width (RBC) [Ratio] 19.5 % 11.9-15.3 [facility] Estimated glomerular filtrat ion rate (GFR) non- AmericanOrdered By: Bonnie Hendricks on 05-16-2022 GFR/1.73 sq M.predicted among non-blacks MDRD (S/P/Bld) [Vol rate/Area] > 60 mL/Min [facility] Globulin Calc (S) [Mass/Vol] Ordered By: Bonnie Hendricks on 05-16-2022 Globulin (S) [Mass/Vol] 4.8 g/dL [facility] Hematocrit Auto (Bld) [Volum e fraction]Ordered By: Bonnie Hendricks on 05-16-2022 Hematocrit (Bld) [Volume fraction] 34.9 % 34.0-46.4 [facility] Hemoglobin [Mass/volume] in BloodOrdered By: Bonnie Hendricks on 05-16-2022 Hemoglobin (Bld) [Mass/Vol] 11.2 g/dL 11.8-15.4 [facility] Leukocytes [#/volume] correc blanca for nucleated erythrocytes in Blood by Automated counOrdered By: Bonnie Hendricks on 05-16-2022 WBC corrected for nucl RBC Auto (Bld) [#/Vol] 5.2 10*3/uL 3.8-11.6 [facility] Lymphocytes Auto (Bld) [#/Vo l]Ordered By: Bonnie Hendricks on 05-16-2022 Lymphocytes (Bld) [#/Vol] 1.4 10*3/uL 1.00-4.8 [facility] Lymphocytes/100 WBC Auto (Bl d)Ordered By: Bonnie Hendricks on 05-16-2022 Lymphocytes/100 WBC (Bld) 27.8 % . [facility] MCH Auto (RBC) [Entitic mass ]Ordered By: Bonnie Hendricks on 05-16-2022 MCH (RBC) [Entitic mass] 26.2 pg 24.7-34.3 [facility] MCHC Auto (RBC) [Mass/Vol]Or dered By: Bonnie Hendricks on 05-16-2022 MCHC (RBC) [Mass/Vol] 32.1 g/dL 32.0-35.0 [facility] MCV Auto (RBC) [Entitic vol] Ordered By: Bonnie Hendricks on 05-16-2022 MCV (RBC) [Entitic vol] 81.6 fL 80-100 [facility] Monocytes Auto (Bld) [#/Vol] Ordered By: Bonnie Hendricks on 05-16-2022 Monocytes (Bld) [#/Vol] 0.3 10*3/uL 0.0-0.8 [facility] Monocytes/100 WBC Auto (Bld) Ordered By: Bonnie Hendricks on 05-16-2022 Monocytes/100 WBC (Bld) 6.3 % . [facility] Neutrophils Auto (Bld) [#/Vo l]Ordered By: Bonnie Hendricks on 05-16-2022 Neutrophils (Bld) [#/Vol] 3.2 10*3/uL 1.8-7.7 [facility] Neutrophils/100 WBC Auto (Bl d)Ordered By: Bonnie Hendricks on 05-16-2022 Neutrophils/100 WBC (Bld) 62.5 % . [facility] No Panel InformationOrdered By: Bonnie Hendricks on 05-16-2022 Estimated GFR () > 60 mL/Min [facility] Comment on above: GFR estimated refere nce range: According to KDOQI guidelines, <60 ml/min/1.73m2 is sufficient to diagnose a patient with chronic kidney disease. Pharmacy Creatinine Clearance (Chem N/A [facility] Nucleated erythrocytes [Pres ence] in Blood by Automated countOrdered By: Bonnie Hendricks on 05-16-2022 Nucleated RBC Auto Ql (Bld) 0.1 /100{WBC} 0-0.5 [facility] Platelet mean volume Auto (B ld) [Entitic vol]Ordered By: Bonnie Hendricks on 05-16-2022 Platelet mean volume (Bld) [Entitic vol] 7.3 fL 6.3-10.7 [facility] Platelets Auto (Bld) [#/Vol] Ordered By: Bonnie Hendricks on 05-16-2022 Platelets (Bld) [#/Vol] 303 10*3/uL 150-450 [facility] Protein [Mass/volume] in Ser um or PlasmaOrdered By: Bonnie Hendricks on 05-16-2022 Protein [Mass/Vol] 8.3 g/dL 6.1-7.9 [facility] RBC Auto (Bld) [#/Vol]Ordere d By: Bonnie Hendricks on 05-16-2022 RBC (Bld) [#/Vol] 4.28 10*6/uL 3.60-5.00 [facility] Serum or plasma alanine de guzman otransferase measurement without P-5'-P (enzymatic activiOrdered By: Bonnie Hendricks on 05-16-2022 ALT No additional P-5'-P [Catalytic activity/Vol] 15 U/L 10-60 [facility] Serum or plasma albumin/glob ulin mass ratioOrdered By: Bonnie Hendricks on 05-16-2022 Albumin/Globulin [Mass ratio] 0.7 {ratio} [facility] Serum or plasma alkaline david sphatase measurement (enzymatic activity/volume)Ordered By: Bonnie Hendricks on 05-16-2022 ALP [Catalytic activity/Vol] 96 U/L 32-92 [facility] Serum or plasma anion gap de terminationOrdered By: Bonnie Hendricks on 05-16-2022 Anion gap [Moles/Vol] 11.0 mmol/L 6.0-15.0 [facility] Serum or plasma aspartate am inotransferase measurement (enzymatic activity/volume)Ordered By: Bonnie Hendricks on 05-16-2022 AST [Catalytic activity/Vol] 18 U/L 10-42 [facility] Serum or plasma calcium elias urement (mass/volume)Ordered By: Bonine Hendricks on 05-16-2022 Calcium [Mass/Vol] 9.2 mg/dL 8.2-10.2 [facility] Serum or plasma cancer antig en 125 (CA-125) measurement (units/volume)Ordered By: Bonnie Hendricks on 05-16-2022 Cancer Ag 125 Qn 18.3 [arb'U]/mL 0.0-38.1 [facility] Comment on above: [facility] [employer] El ectrochemiluminescence Immunoassay(ECLIA)Values obtained with different assay methods or kits cannotbe used interchangeably. Results cannot be interpreted asabsolute evidence of the presence or absence of malignantdisease.Performed at: [facility] [employer] [id number] Director: Adrian Coello PhD, Phone: [phone] Serum or plasma chloride liset surement (moles/volume)Ordered By: Bonnie Hendricks on 05-16-2022 Chloride [Moles/Vol] 102 mmol/L 95-114 [facility] Serum or plasma glucose elias urement (mass/volume)Ordered By: Bonnie Hendricks on 05-16-2022 Glucose [Mass/Vol] 104 mg/dL 70-100 [facility] Comment on above: ADA recommended refe rence rangeRandom Glucose Reference Range is dependent on time and content of last meal. Glucose of more than 200 mg/dL in a nonstressed, ambulatory subject supports the diagnosis of Diabetes Mellitus. Serum or plasma potassium me asurement (moles/volume)Ordered By: Bonnie Hendricks on 05-16-2022 Potassium [Moles/Vol] 4.1 mmol/L 3.5-5.1 [facility] Serum or plasma sodium measu rement (moles/volume)Ordered By: Bonnie Hendricks on 05-16-2022 Sodium [Moles/Vol] 135 mmol/L 136-146 [facility] Serum or plasma total biliru bin measurement (mass/volume)Ordered By: Bonnie Hendricks on 05-16-2022 Bilirubin [Mass/Vol] 0.5 mg/dL 0.3-1.2 [facility] Serum or plasma total carbon dioxide measurement (moles/volume)Ordered By: Bonnie Hendricks on 05-16-2022 CO2 [Moles/Vol] 26.1 mmol/L 22.0-30.0 [facility] Serum or plasma urea nitroge n measurement (mass/volume)Ordered By: Bonnie Hendricks on 05-16-2022 Urea nitrogen [Mass/Vol] 13 mg/dL 9- [facility] WBC Auto (Bld) [#/Vol]Ordere d By: Bonnie Hendricks on 05-16-2022 WBC (Bld) [#/Vol] 5.2 10*3/uL 3.8-11.6 [facility] CBC AUTO DIFFon 03-22-2022 BASO # 0.0 103/ul Normal 0.0-0.1 [facility] Comment on above: Performed By: #### C MP, BNP #### [facility] [address] [address] [address] Sung Moore Basophils/100 WBC (Bld) 0.3 % Normal 0.2-2.0 [facility] Comment on above: Performed By: #### C MP, BNP #### [facility] [address] [place] [address] Dr. Sung Moore EO # 0.4 103/ul Normal 0.0-0.7 [facility] Comment on above: Performed By: #### C MP, BNP #### [facility] [address] [place] [address] Dr. Sung Moore Eosinophils/100 WBC (Bld) 5.6 % Normal 0.9-7.0 [facility] Comment on above: Performed By: #### C MP, BNP #### [facility] [address] [place] [address] Dr. Sung Moore Erythrocyte distribution width (RBC) [Ratio] 16.0 % Critically high 11.0-15.0 [facility] Comment on above: Performed By: #### C MP, BNP #### [facility] [address] [place] [address] Dr. Sung Moore Hematocrit (Bld) [Volume fraction] 27.2 % Critically low 36.0-48.0 [facility] Comment on above: Performed By: #### C MP, BNP #### [facility] [address] [place] [address] Dr. Sung Moore Hemoglobin (Bld) [Mass/Vol] 8.6 g/dL Critically low 12.0-16.0 [facility] Comment on above: Performed By: #### C MP, BNP #### [facility] [address] [place] [address] Dr. Sung Moore IG # 0.03 10e3/ul Normal 0.00-0.03 [facility] Comment on above: Performed By: #### C MP, BNP #### [facility] [address] [place] [address] Dr. Sung Moore IG % 0.5 % Normal 0.0-0.5 [facility] Comment on above: Performed By: #### C MP, BNP #### [facility] [address] [place] [address] Dr. Sung Moore LYMPH # 1.8 103/ul Normal 1.2-3.8 [facility] Comment on above: Performed By: #### C MP, BNP #### [facility] [address] [place] [address] Dr. Sung Moore Lymphocytes/100 WBC (Bld) 27.2 % Normal 20.5-60.0 [facility] Comment on above: Performed By: #### C MP, BNP #### [facility] [address] [place] [address] Dr. Sung Moore MANUAL DIFF REQ NO Normal [facility] Comment on above: Performed By: #### C MP, BNP #### [facility] [address] [place] [address] Dr. Sung Moore MCH (RBC) [Entitic mass] 25.9 pg Critically low 26.7-34.0 [facility] Comment on above: Performed By: #### C MP, BNP #### [facility] [address] [place] [address] Dr. Sung Moore MCHC (RBC) [Mass/Vol] 31.6 g/dL Normal 29.9-35.2 [facility] Comment on above: Performed By: #### C MP, BNP #### [facility] [address] [place] [address] Dr. Sung Moore MCV (RBC) [Entitic vol] 81.9 fL Normal 81.0-99.0 [facility] Comment on above: Performed By: #### C MP, BNP #### [facility] [address] [place] [address] Dr. Sung Moore MONO # 0.7 103/ul Normal 0.3-0.8 [facility] Comment on above: Performed By: #### C MP, BNP #### [facility] [address] [place] [address] Dr. Sung Moore Monocytes/100 WBC (Bld) 10.2 % Normal 1.7-12.0 [facility] Comment on above: Performed By: #### C MP, BNP #### [facility] [address] [place] [address] Dr. Sung Moore NEUT # 3.7 103/ul Normal 1.4-6.5 [facility] Comment on above: Performed By: #### C MP, BNP #### [facility] [address] [place] [address] Dr. Sung Moore Neutrophils/100 WBC (Bld) 56.2 % Normal 43.0-75.0 [facility] Comment on above: Performed By: #### C MP, BNP #### [facility] [address] [place] [address] Dr. Sung Moore Platelet mean volume (Bld) [Entitic vol] 8.7 fL Critically low 9.5-13.5 [facility] Comment on above: Performed By: #### C MP, BNP #### [facility] [address] [place] [address] Dr. Sung Moore PLT 370 103/ul Normal 150-450 [facility] Comment on above: Performed By: #### C MP, BNP #### [facility] [address] [place] [address] Dr. Sung Moore RBC 3.32 106/ul Critically low 4.20-5.40 [facility] Comment on above: Performed By: #### C MP, BNP #### [facility] [address] [place] [address] Dr. Sung Moore WBC 6.6 103/ul Normal 4.0-11.0 [facility] Comment on above: Performed By: #### C MP, BNP #### [facility] [address] [place] [address] Dr. Sung Moore CRPon 03-22-2022 CRP 13.2 mg/dL Critically high <=1.0 [facility] Comment on above: Performed By: #### C RP, CMP #### [facility] [address] [place] [address] Dr. Sung Moore CULTURE URINEon 03-22-2022 CULTURE [...] Trimethoprim/Sulfamethoxa zole <=20 S F Normal [facility] Comment on above: Performed By: #### C RP, CMP #### [facility] [address] [place] [address] Dr. Sung Moore PROF 14(COMP METB)on 022 Albumin [Mass/Vol] 2.0 g/dL Critically low 3.4-5.0 [facility] Comment on above: Performed By: #### C RP, CMP #### [facility] [address] [place] [address] Dr. Sung Moore Albumin/Globulin [Mass ratio] 0.4 {ratio} Normal [facility] Comment on above: Performed By: #### C RP, CMP #### [facility] [address] [place] [address] Dr. Sung Moore ALP [Catalytic activity/Vol] 115 U/L Normal 46-116 [facility] Comment on above: Performed By: #### C RP, CMP #### [facility] [address] [place] [address] Dr. Sung Moore ALT [Catalytic activity/Vol] 21 U/L Normal 14-59 [facility] Comment on above: Performed By: #### C RP, CMP #### [facility] [address] [place] [address] Dr. Sung Moore Anion gap [Moles/Vol] 8.7 mmol/L Normal [facility] Comment on above: Performed By: #### C RP, CMP #### [facility] [address] [place] [address] Dr. Sung Moore AST [Catalytic activity/Vol] 25 U/L Normal 15-37 [facility] Comment on above: Performed By: #### C RP, CMP #### [facility] [address] [place] [address] Dr. Sung Moore Bilirubin [Mass/Vol] 0.2 mg/dL Normal 0.2-1.0 [facility] Comment on above: Performed By: #### C RP, CMP #### [facility] [address] [place] [address] Dr. Sung Moore Calcium [Mass/Vol] 8.5 mg/dL Normal 8.5-10.1 [facility] Comment on above: Performed By: #### C RP, CMP #### [facility] [address] [place] [address] Dr. Sung Moore Chloride [Moles/Vol] 105 mmol/L Normal 98-107 [facility] Comment on above: Performed By: #### C RP, CMP #### [facility] [address] [place] [address] Dr. Sung Moore CO2 [Moles/Vol] 26.2 mmol/L Normal 21.0-32.0 [facility] Comment on above: Performed By: #### C RP, CMP #### [facility] [address] [place] [address] Dr. Sung Moore Creatinine [Mass/Vol] 0.69 mg/dL Normal 0.55-1.02 [facility] Comment on above: Performed By: #### C RP, CMP #### [facility] [address] [place] [address] Dr. Sung Moore EGFR-AF GABONESE >60 Normal >=60 [facility] Comment on above: Performed By: #### C RP, CMP #### [facility] [address] [place] [address] Dr. Sung Moore EGFR-NON AF GABONESE >60 Normal >=60 [facility] Comment on above: Performed By: #### C RP, CMP #### [facility] [address] [place] [address] Dr. Sung Moore Globulin (S) [Mass/Vol] 5.0 g/dL Normal [facility] Comment on above: Performed By: #### C RP, CMP #### [facility] [address] [place] [address] Dr. Sung Moore Glucose [Mass/Vol] 101 mg/dL Normal 74-106 [facility] Comment on above: Performed By: #### C RP, CMP #### [facility] [address] [place] [address] Dr. Sung Moore Potassium [Moles/Vol] 3.9 mmol/L Normal 3.5-5.1 [facility] Comment on above: Performed By: #### C RP, CMP #### [facility] [address] [place] [address] Dr. Sung Moore Protein [Mass/Vol] 7.0 g/dL Normal 6.4-8.2 [facility] Comment on above: Performed By: #### C RP, CMP #### [facility] [address] [place] [address] Dr. Sung Moore Sodium [Moles/Vol] 136 mmol/L Normal 136-145 [facility] Comment on above: Performed By: #### C RP, CMP #### [facility] [address] [place] [address] Dr. Sung Moore Urea nitrogen [Mass/Vol] 15.0 mg/dL Normal 7.0-18.0 [facility] Comment on above: Performed By: #### C RP, CMP #### [facility] [address] [place] [address] Dr. Sung Moore Urea nitrogen/Creatinine [Mass ratio] 21.7 mg/mg Normal [facility] Comment on above: Performed By: #### C RP, CMP #### [facility] [address] [place] [address] Dr. Sung Moore CBC AUTO DIFFon 03-21-2022 BASO # 0.0 103/ul Normal 0.0-0.1 [facility] Comment on above: Performed By: #### C MP, BNP #### [facility] [address] [place] [address] Dr. Sung Moore Basophils/100 WBC (Bld) 0.3 % Normal 0.2-2.0 [facility] Comment on above: Performed By: #### C MP, BNP #### [facility] [address] [place] [address] Dr. Sung Moore EO # 0.3 103/ul Normal 0.0-0.7 [facility] Comment on above: Performed By: #### C MP, BNP #### [facility] [address] [place] [address] Dr. Sung Moore Eosinophils/100 WBC (Bld) 2.6 % Normal 0.9-7.0 [facility] Comment on above: Performed By: #### C MP, BNP #### [facility] [address] [place] [address] Dr. Sung Moore Erythrocyte distribution width (RBC) [Ratio] 15.7 % Critically high 11.0-15.0 [facility] Comment on above: Performed By: #### C MP, BNP #### [facility] [address] [place] [address] Dr. Sung Moore Hematocrit (Bld) [Volume fraction] 26.8 % Critically low 36.0-48.0 [facility] Comment on above: Performed By: #### C MP, BNP #### [facility] [address] [place] [address] Dr. Sung Moore Hemoglobin (Bld) [Mass/Vol] 8.6 g/dL Critically low 12.0-16.0 [facility] Comment on above: Performed By: #### C MP, BNP #### [facility] [address] [place] [address] Dr. Sung Moore IG # 0.06 10e3/ul Critically high 0.00-0.03 [facility] Comment on above: Performed By: #### C MP, BNP #### [facility] [address] [place] [address] Dr. Sung Moore IG % 0.6 % Critically high 0.0-0.5 [facility] Comment on above: Performed By: #### C MP, BNP #### [facility] [address] [place] [address] Dr. Sung Moore LYMPH # 1.7 103/ul Normal 1.2-3.8 [facility] Comment on above: Performed By: #### C MP, BNP #### [facility] [address] [place] [address] Dr. Sung Moore Lymphocytes/100 WBC (Bld) 17.4 % Critically low 20.5-60.0 [facility] Comment on above: Performed By: #### C MP, BNP #### [facility] [address] [place] [address] Dr. Sung Moore MANUAL DIFF REQ NO Normal [facility] Comment on above: Performed By: #### C MP, BNP #### [facility] [address] [place] [address] Dr. Sung Moore MCH (RBC) [Entitic mass] 26.3 pg Critically low 26.7-34.0 [facility] Comment on above: Performed By: #### C MP, BNP #### [facility] [address] [place] [address] Dr. Sung Moore MCHC (RBC) [Mass/Vol] 32.1 g/dL Normal 29.9-35.2 [facility] Comment on above: Performed By: #### C MP, BNP #### [facility] [address] [place] [address] Dr. Sung Moore MCV (RBC) [Entitic vol] 82.0 fL Normal 81.0-99.0 [facility] Comment on above: Performed By: #### C MP, BNP #### [facility] [address] [place] [address] Dr. Sung Moore MONO # 1.1 103/ul Critically high 0.3-0.8 [facility] Comment on above: Performed By: #### C MP, BNP #### [facility] [address] [place] [address] Dr. Sung Moore Monocytes/100 WBC (Bld) 11.4 % Normal 1.7-12.0 [facility] Comment on above: Performed By: #### C MP, BNP #### [facility] [address] [address] [address] Sung Moore NEUT # 6.7 103/ul Critically high 1.4-6.5 [facility] Comment on above: Performed By: #### C MP, BNP #### [facility] [address] [address] [address] Sung Moore Neutrophils/100 WBC (Bld) 67.7 % Normal 43.0-75.0 [facility] Comment on above: Performed By: #### C MP, BNP #### [facility] [address] [address] [address] Sung Moore Platelet mean volume (Bld) [Entitic vol] 8.8 fL Critically low 9.5-13.5 [facility] Comment on above: Performed By: #### C MP, BNP #### [facility] [address] [place] [address] Dr. uSng Moore PLT 301 103/ul Normal 150-450 [facility] Comment on above: Performed By: #### C MP, BNP #### [facility] [address] [place] [address] Dr. Sung Moore RBC 3.27 106/ul Critically low 4.20-5.40 [facility] Comment on above: Performed By: #### C MP, BNP #### [facility] [address] [place] [address] Dr. Sung Moore WBC 9.8 103/ul Normal 4.0-11.0 [facility] Comment on above: Performed By: #### C MP, BNP #### [facility] [address] [place] [address] Dr. Sung Moore CRPon 03-21-2022 CRP 19.1 mg/dL Critically high <=1.0 [facility] Comment on above: Performed By: #### C MP, BNP #### [facility] [address] [place] [address] Dr. Sung Moore PROF 14(COMP METB)on 022 Albumin [Mass/Vol] 1.9 g/dL Critically low 3.4-5.0 [facility] Comment on above: Performed By: #### C MP, BNP #### [facility] [address] [address] [address] Sung Moore Albumin/Globulin [Mass ratio] 0.4 {ratio} Normal [facility] Comment on above: Performed By: #### C MP, BNP #### [facility] [address] [address] [address] Sung Moore ALP [Catalytic activity/Vol] 91 U/L Normal 46-116 [facility] Comment on above: Performed By: #### C MP, BNP #### [facility] [address] [address] [address] Sung Moore ALT [Catalytic activity/Vol] 14 U/L Normal 14-59 [facility] Comment on above: Performed By: #### C MP, BNP #### [facility] [address] [address] [address] Sung Moore Anion gap [Moles/Vol] 13.1 mmol/L Normal [facility] Comment on above: Performed By: #### C MP, BNP #### [facility] [address] [address] [address] Sung Moore AST [Catalytic activity/Vol] 23 U/L Normal 15-37 [facility] Comment on above: Performed By: #### C MP, BNP #### [facility] [address] [address] [address] Sung Moore Bilirubin [Mass/Vol] 0.3 mg/dL Normal 0.2-1.0 [facility] Comment on above: Performed By: #### C MP, BNP #### [facility] [address] [address] [address] Sung Moore Calcium [Mass/Vol] 8.6 mg/dL Normal 8.5-10.1 [facility] Comment on above: Performed By: #### C MP, BNP #### [facility] [address] [address] [address] Sung Moore Chloride [Moles/Vol] 105 mmol/L Normal 98-107 [facility] Comment on above: Performed By: #### C MP, BNP #### [facility] [address] [address] [address] Sung Moore CO2 [Moles/Vol] 21.7 mmol/L Normal 21.0-32.0 [facility] Comment on above: Performed By: #### C MP, BNP #### [facility] [address] [address] [address] Sung Moore Creatinine [Mass/Vol] 0.67 mg/dL Normal 0.55-1.02 [facility] Comment on above: Performed By: #### C MP, BNP #### [facility] [address] [address] [address] Sung Moore EGFR-AF GABONESE >60 Normal >=60 [facility] Comment on above: Performed By: #### C MP, BNP #### [facility] [address] [place] [address] Dr. Sung Moore EGFR-NON AF GABONESE >60 Normal >=60 [facility] Comment on above: Performed By: #### C MP, BNP #### [facility] [address] [place] [address] Dr. Sung Moore Globulin (S) [Mass/Vol] 5.0 g/dL Normal [facility] Comment on above: Performed By: #### C MP, BNP #### [facility] [address] [place] [address] Dr. Sung Moore Glucose [Mass/Vol] 107 mg/dL Critically high 74-106 [facility] Comment on above: Performed By: #### C MP, BNP #### [facility] [address] [address] [address] Sung Moore Potassium [Moles/Vol] 3.8 mmol/L Normal 3.5-5.1 [facility] Comment on above: Performed By: #### C MP, BNP #### [facility] [address] [address] [address] Sung Moore Protein [Mass/Vol] 6.9 g/dL Normal 6.4-8.2 [facility] Comment on above: Performed By: #### C MP, BNP #### [facility] [address] [place] [address] Dr. Sung Moore Sodium [Moles/Vol] 136 mmol/L Normal 136-145 [facility] Comment on above: Performed By: #### C MP, BNP #### [facility] [address] [place] [address] Dr. Sung Moore Urea nitrogen [Mass/Vol] 10.0 mg/dL Normal 7.0-18.0 [facility] Comment on above: Performed By: #### C MP, BNP #### [facility] [address] [place] [address] Dr. Sung Moore Urea nitrogen/Creatinine [Mass ratio] 14.9 mg/mg Normal [facility] Comment on above: Performed By: #### C MP, BNP #### [facility] [address] [place] [address] Dr. Sung Moore CARDIAC CARL 3-6on 2 CK [Catalytic activity/Vol] 40 U/L Normal 26-192 [facility] Comment on above: Performed By: #### C RP, CMP #### [facility] [address] [place] [address] Dr. Sung Moore CK.MB [Mass/Vol] 0.81 ng/mL Normal <=3.60 [facility] Comment on above: Performed By: #### C RP, CMP #### [facility] [address] [place] [address] Dr. Sung Moore HSTROP 9.0 pg/mL Normal 4.0-51.3 [facility] Comment on above: Result Comment: CUT- OFF POINTS HAVE BEEN ESTABLISHED BASED ON THE FOURTH UNIVERSAL DEFINITIONS OF MYOCARDIAL INFARCTION. THE UPPER REFERENCE LIMIT (URL) OF TROPONIN, DEFINED THE 99TH PERCENTILE OF cTnI DISTRIBUTION IN A REFERENCE POPULATION, HAS BEEN CONFIRMED THE DECISION THRESHOLD FOR VT DIAGNOSIS. Performed By: #### C RP, CMP #### [facility] [address] [place] [address] Dr. Sung Moore CK [Catalytic activity/Vol] 42 U/L Normal 26-192 [facility] Comment on above: Performed By: #### C MP, BNP #### [facility] [address] [address] [address] Sung Moore CK.MB [Mass/Vol] 0.90 ng/mL Normal <=3.60 [facility] Comment on above: Performed By: #### C MP, BNP #### [facility] [address] [address] [address] Sung Moore HSTROP 9.7 pg/mL Normal 4.0-51.3 [facility] Comment on above: Result Comment: CUT- OFF POINTS HAVE BEEN ESTABLISHED BASED ON THE FOURTH UNIVERSAL DEFINITIONS OF MYOCARDIAL INFARCTION. THE UPPER REFERENCE LIMIT (URL) OF TROPONIN, DEFINED THE 99TH PERCENTILE OF cTnI DISTRIBUTION IN A REFERENCE POPULATION, HAS BEEN CONFIRMED THE DECISION THRESHOLD FOR VT DIAGNOSIS. Performed By: #### C MP, BNP #### [facility] [address] [place] [address] Dr. Sung Moore CARDIAC CARL ADMITon 022 CK [Catalytic activity/Vol] 44 U/L Normal 26-192 [facility] Comment on above: Performed By: #### L ACT #### [facility] [address] [address] [address] Sung Moore CK.MB [Mass/Vol] 0.47 ng/mL Normal <=3.60 [facility] Comment on above: Performed By: #### L ACT #### [facility] [address] [place] [address] Dr. Sung Moore HSTROP 9.1 pg/mL Normal 4.0-51.3 [facility] Comment on above: Result Comment: CUT- OFF POINTS HAVE BEEN ESTABLISHED BASED ON THE FOURTH UNIVERSAL DEFINITIONS OF MYOCARDIAL INFARCTION. THE UPPER REFERENCE LIMIT (URL) OF TROPONIN, DEFINED THE 99TH PERCENTILE OF cTnI DISTRIBUTION IN A REFERENCE POPULATION, HAS BEEN CONFIRMED THE DECISION THRESHOLD FOR VT DIAGNOSIS. Performed By: #### L ACT #### [facility] [address] [address] [address] Sung Moore CELESTINE 55 ng/mL Normal 9-82 [facility] Comment on above: Performed By: #### L ACT #### [facility] [address] [place] [address] Dr. Sung Moore CBC AUTO DIFFon 03-20-2022 BASO # 0.0 103/ul Normal 0.0-0.1 [facility] Comment on above: Performed By: #### C RP, CMP #### [facility] [address] [place] [address] Dr. Sung Moore Basophils/100 WBC (Bld) 0.2 % Normal 0.2-2.0 [facility] Comment on above: Performed By: #### C RP, CMP #### [facility] [address] [place] [address] Dr. Sung Moore EO # 0.1 103/ul Normal 0.0-0.7 [facility] Comment on above: Performed By: #### C RP, CMP #### [facility] [address] [place] [address] Dr. Sung Moore Eosinophils/100 WBC (Bld) 0.6 % Critically low 0.9-7.0 [facility] Comment on above: Performed By: #### C RP, CMP #### [facility] [address] [place] [address] Dr. Sung Moore Erythrocyte distribution width (RBC) [Ratio] 15.7 % Critically high 11.0-15.0 [facility] Comment on above: Performed By: #### C RP, CMP #### [facility] [address] [place] [address] Dr. Sung Moore Hematocrit (Bld) [Volume fraction] 25.7 % Critically low 36.0-48.0 [facility] Comment on above: Performed By: #### C RP, CMP #### [facility] [address] [place] [address] Dr. Sung Moore Hemoglobin (Bld) [Mass/Vol] 8.3 g/dL Critically low 12.0-16.0 [facility] Comment on above: Performed By: #### C RP, CMP #### [facility] [address] [place] [address] Dr. Sung Moore IG # 0.12 10e3/ul Critically high 0.00-0.03 [facility] Comment on above: Performed By: #### C RP, CMP #### [facility] [address] [address] [address] Sung Moore IG % 1.0 % Critically high 0.0-0.5 [facility] Comment on above: Performed By: #### C RP, CMP #### [facility] [address] [address] [address] Sung Moore LYMPH # 2.0 103/ul Normal 1.2-3.8 [facility] Comment on above: Performed By: #### C RP, CMP #### [facility] [address] [place] [address] Dr. Sung Moore Lymphocytes/100 WBC (Bld) 16.7 % Critically low 20.5-60.0 [facility] Comment on above: Performed By: #### C RP, CMP #### [facility] [address] [place] [address] Dr. Sung Moore MANUAL DIFF REQ NO Normal [facility] Comment on above: Performed By: #### C RP, CMP #### [facility] [address] [address] [address] Sung Moore MCH (RBC) [Entitic mass] 26.4 pg Critically low 26.7-34.0 [facility] Comment on above: Performed By: #### C RP, CMP #### [facility] [address] [place] [address] Dr. Sung Moore MCHC (RBC) [Mass/Vol] 32.3 g/dL Normal 29.9-35.2 [facility] Comment on above: Performed By: #### C RP, CMP #### [facility] [address] [place] [address] Dr. Sung Moore MCV (RBC) [Entitic vol] 81.8 fL Normal 81.0-99.0 [facility] [facility] Comment on above: Performed By: #### C RP, CMP #### [facility] [address] [place] [address] Dr. Sung Moore MONO # 1.3 103/ul Critically high 0.3-0.8 [facility] Comment on above: Performed By: #### C RP, CMP #### [facility] [address] [place] [address] Dr. Sung Moore Monocytes/100 WBC (Bld) 10.8 % Normal 1.7-12.0 [facility] Comment on above: Performed By: #### C RP, CMP #### [facility] [address] [place] [address] Dr. Sung oMore NEUT # 8.6 103/ul Critically high 1.4-6.5 [facility] Comment on above: Performed By: #### C RP, CMP #### [facility] [address] [place] [address] Dr. Sung Moore Neutrophils/100 WBC (Bld) 70.7 % Normal 43.0-75.0 [facility] Comment on above: Performed By: #### C RP, CMP #### [facility] [address] [place] [address] Dr. Sung Moore Platelet mean volume (Bld) [Entitic vol] 8.6 fL Critically low 9.5-13.5 [facility] Comment on above: Performed By: #### C RP, CMP #### [facility] [address] [place] [address] Dr. Sung Moore PLT 305 103/ul Normal 150-450 [facility] Comment on above: Performed By: #### C RP, CMP #### [facility] [address] [place] [address] Dr. Sung Moore RBC 3.14 106/ul Critically low 4.20-5.40 [facility] Comment on above: Performed By: #### C RP, CMP #### [facility] [address] [place] [address] Dr. Sung Moore WBC 12.1 103/ul Critically high 4.0-11.0 [facility] Comment on above: Performed By: #### C RP, CMP #### [facility] [address] [place] [address] Dr. Sung Moore BASO # 0.0 103/ul Normal 0.0-0.1 [facility] Comment on above: Performed By: #### C MP, BNP #### [facility] [address] [place] [address] Dr. Sung Moore Basophils/100 WBC (Bld) 0.1 % Critically low 0.2-2.0 [facility] Comment on above: Performed By: #### C MP, BNP #### [facility] [address] [place] [address] Dr. Sung Moore EO # 0.0 103/ul Normal 0.0-0.7 [facility] Comment on above: Performed By: #### C MP, BNP #### [facility] [address] [place] [address] Dr. Sung Moore Eosinophils/100 WBC (Bld) 0.2 % Critically low 0.9-7.0 [facility] Comment on above: Performed By: #### C MP, BNP #### [facility] [address] [place] [address] Dr. Sung Moore Erythrocyte distribution width (RBC) [Ratio] 15.6 % Critically high 11.0-15.0 [facility] Comment on above: Performed By: #### C MP, BNP #### [facility] [address] [place] [address] Dr. Sung Moore Hematocrit (Bld) [Volume fraction] 30.2 % Critically low 36.0-48.0 [facility] Comment on above: Performed By: #### C MP, BNP #### [facility] [address] [place] [address] Dr. Sung Moore Hemoglobin (Bld) [Mass/Vol] 9.7 g/dL Critically low 12.0-16.0 [facility] Comment on above: Performed By: #### C MP, BNP #### [facility] [address] [place] [address] Dr. Sung Moore IG # 0.10 10e3/ul Critically high 0.00-0.03 [facility] Comment on above: Performed By: #### C MP, BNP #### [facility] [address] [address] [address] Sung Moore IG % 0.7 % Critically high 0.0-0.5 [facility] Comment on above: Performed By: #### C MP, BNP #### [facility] [address] [place] [address] Dr. Sung Moore LYMPH # 1.8 103/ul Normal 1.2-3.8 [facility] Comment on above: Performed By: #### C MP, BNP #### [facility] [address] [place] [address] Dr. Sung Moore Lymphocytes/100 WBC (Bld) 11.9 % Critically low 20.5-60.0 [facility] Comment on above: Performed By: #### C MP, BNP #### [facility] [address] [place] [address] Dr. Sung Moore MANUAL DIFF REQ NO Normal [facility] Comment on above: Performed By: #### C MP, BNP #### [facility] [address] [place] [address] Dr. Sung Moore MCH (RBC) [Entitic mass] 25.9 pg Critically low 26.7-34.0 [facility] Comment on above: Performed By: #### C MP, BNP #### [facility] [address] [place] [address] Dr. Sung Moore MCHC (RBC) [Mass/Vol] 32.1 g/dL Normal 29.9-35.2 [facility] Comment on above: Performed By: #### C MP, BNP #### [facility] [address] [place] [address] Dr. Sung Moore MCV (RBC) [Entitic vol] 80.7 fL Critically low 81.0-99.0 [facility] Comment on above: Performed By: #### C MP, BNP #### [facility] [address] [place] [address] Dr. Sung Moore MONO # 1.4 103/ul Critically high 0.3-0.8 [facility] Comment on above: Performed By: #### C MP, BNP #### [facility] [address] [address] [address] Sung Moore Monocytes/100 WBC (Bld) 9.3 % Normal 1.7-12.0 [facility] Comment on above: Performed By: #### C MP, BNP #### [facility] [address] [address] [address] Sung Moore NEUT # 11.7 103/ul Critically high 1.4-6.5 [facility] Comment on above: Performed By: #### C MP, BNP #### [facility] [address] [place] [address] Dr. Sung Moore Neutrophils/100 WBC (Bld) 77.8 % Critically high 43.0-75.0 [facility] Comment on above: Performed By: #### C MP, BNP #### [facility] [address] [place] [address] Dr. Sung Moore Platelet mean volume (Bld) [Entitic vol] 8.5 fL Critically low 9.5-13.5 [facility] Comment on above: Performed By: #### C MP, BNP #### [facility] [address] [place] [address] Dr. Sung Moore PLT 342 103/ul Normal 150-450 [facility] Comment on above: Performed By: #### C MP, BNP #### [facility] [address] [place] [address] Dr. Sung Moore RBC 3.74 106/ul Critically low 4.20-5.40 [facility] Comment on above: Performed By: #### C MP, BNP #### [facility] [address] [place] [address] Dr. Sung Moore WBC 15.1 103/ul Critically high 4.0-11.0 [facility] Comment on above: Performed By: #### C MP, BNP #### [facility] [address] [place] [address] Dr. Sung Moore CRPon 03-20-2022 CRP 57.7 mg/dL Critically high <=1.0 [facility] Comment on above: Performed By: #### L ACT #### [facility] [address] [address] HEAD WO CONon [...] as clinically indicated. Electronically authenticated by: TARAS FREIRE Date: 2022-03-19 23:59 Normal [facility] Covid-19 PCR (CVDTB)on SARS-CoV-2 (COVID-19) RNA ROMY+probe Ql (Unsp spec) Not detected Normal NOT DETECTED [facility] Comment on above: Result Comment: When [...] for this test is supported by the Residential [employer]ist of Health and Human Service's declaration that [...] Performed By: #### C RP, CMP #### [facility] [address] [address] [address] Sung Moore ER URINE PROFILEon 2 Bilirubin Ql (U) Negative Normal NEGATIVE [facility] Comment on above: Performed By: #### C MP, BNP #### [facility] [address] [place] [address] Dr. Sung Moore Clarity (U) CLEAR Normal CLEAR [facility] Comment on above: Performed By: #### C MP, BNP #### [facility] [address] [place] [address] Dr. Sung Moore Color (U) YELLOW Normal YELLOW [facility] Comment on above: Performed By: #### C MP, BNP #### [facility] [address] [place] [address] Dr. Sung Moore ERUMINNIED A micrscopic examina tion will be performed if indicated. Normal [facility] Comment on above: Performed By: #### C MP, BNP #### [facility] [address] [place] [address] Dr. Sung Moore Glucose Ql (U) Negative Normal NEGATIVE [facility] Comment on above: Performed By: #### C MP, BNP #### [facility] [address] [place] [address] Dr. Sung Moore Hemoglobin Ql (U) MODERATE Abnormal NEGATIVE [facility] Comment on above: Performed By: #### C MP, BNP #### [facility] [address] [place] [address] Dr. Sung Moore Ketones Ql (U) Negative Normal NEGATIVE [facility] Comment on above: Performed By: #### C MP, BNP #### [facility] [address] [place] [address] Dr. Sung Moore LEUKOCYTES LARGE Abnormal NEGATIVE [facility] Comment on above: Performed By: #### C MP, BNP #### [facility] [address] [place] [address] Dr. Sung Moore Nitrite Ql (U) Positive Abnormal NEGATIVE [facility] Comment on above: Performed By: #### C MP, BNP #### [facility] [address] [place] [address] Dr. Sung Moore pH (U) 6.0 [pH] Normal 5-9 [facility] Comment on above: Performed By: #### C MP, BNP #### [facility] [address] [place] [address] Dr. Sung Moore SPEC GRAVITY 1.015 Normal 1.005-<=1. 025 [facility] Comment on above: Performed By: #### C MP, BNP #### [facility] [address] [place] [address] Dr. Sung Moore UA PROTEIN Negative Normal NEGATIVE/ TRACE [facility] Comment on above: Performed By: #### C MP, BNP #### [facility] [address] [place] [address] Dr. Sung Moore UR MICRO IND INDICATED Normal [facility] Comment on above: Performed By: #### C MP, BNP #### [facility] [address] [place] [address] Dr. Sung Moore Urobilinogen Qn (U) 0.2 {David'U}/dL Normal 0.2 - 1. 0 [facility] Comment on above: Performed By: #### C MP, BNP #### [facility] [address] [place] [address] Dr. Sung Moore LACTATE/LACTIC ACIDon 2021 Lactate [Moles/Vol] 0.6 mmol/L Normal 0.4-1.9 [facility] Comment on above: Performed By: #### C RP, CMP #### [facility] [address] [place] [address] Dr. Sung Moore Lactate [Moles/Vol] 0.8 mmol/L Normal 0.4-1.9 [facility] Comment on above: Performed By: #### L ACT #### [facility] [address] [place] [address] Dr. Sung Moore POINT OF CARE GLUCOSEon 10-0 Glucose [Mass/Vol] 148 mg/dL Critically high 74-106 [facility] [place] Comment on above: Performed By: #### L ACT #### [facility] [address] [place] [address] Dr. Sung Moore PROF CHEM 8 (BAS METB)on Anion gap [Moles/Vol] 10.6 mmol/L Normal [facility] Comment on above: Performed By: #### C MP, BNP #### [facility] [address] [place] [address] Dr. Sung Moore Calcium [Mass/Vol] 8.5 mg/dL Normal 8.5-10.1 [facility] Comment on above: Performed By: #### C MP, BNP #### [facility] [address] [place] [address] Dr. Sung Moore Chloride [Moles/Vol] 102 mmol/L Normal 98-107 [facility] Comment on above: Performed By: #### C MP, BNP #### [facility] [address] [place] [address] Dr. Sung Moore CO2 [Moles/Vol] 24.8 mmol/L Normal 21.0-32.0 [facility] Comment on above: Performed By: #### C MP, BNP #### [facility] [address] [place] [address] Dr. Sung Moore Creatinine [Mass/Vol] 0.77 mg/dL Normal 0.55-1.02 [facility] Comment on above: Performed By: #### C MP, BNP #### [facility] [address] [place] [address] Dr. Sung Moore EGFR-AF GABONESE >60 Normal >=60 [facility] Comment on above: Performed By: #### C MP, BNP #### [facility] [address] [place] [address] Dr. Sung Moore EGFR-NON AF GABONESE >60 Normal >=60 [facility] Comment on above: Performed By: #### C MP, BNP #### [facility] [address] [place] [address] Dr. Sung Moore Glucose [Mass/Vol] 117 mg/dL Critically high 74-106 [facility] Comment on above: Performed By: #### C MP, BNP #### [facility] [address] [address] [address] Sung Moore Potassium [Moles/Vol] 3.4 mmol/L Critically low 3.5-5.1 [facility] Comment on above: Performed By: #### C MP, BNP #### [facility] [address] [address] [address] Sung Moore Sodium [Moles/Vol] 134 mmol/L Critically low 136-145 [facility] Comment on above: Performed By: #### C MP, BNP #### [facility] [address] [address] [address] Sung Moore Urea nitrogen [Mass/Vol] 12.0 mg/dL Normal 7.0-18.0 [facility] Comment on above: Performed By: #### C MP, BNP #### [facility] [address] [address] [address] Sung Moore Urea nitrogen/Creatinine [Mass ratio] 15.6 mg/mg Normal [facility] Comment on above: Performed By: #### C MP, BNP #### [facility] [address] [address] [address] Sung Moore Anion gap [Moles/Vol] 13.7 mmol/L Normal [facility] Comment on above: Performed By: #### L ACT #### [facility] [address] [address] [address] Sung Moore Calcium [Mass/Vol] 8.7 mg/dL Normal 8.5-10.1 [facility] Comment on above: Performed By: #### L ACT #### [facility] [address] [address] [address] Sung Moore Chloride [Moles/Vol] 93 mmol/L Critically low 98-107 [facility] Comment on above: Performed By: #### L ACT #### [facility] [address] [address] [address] Sung Moore CO2 [Moles/Vol] 23.3 mmol/L Normal 21.0-32.0 [facility] Comment on above: Performed By: #### L ACT #### [facility] [address] [address] [address] Sung Moore Creatinine [Mass/Vol] 0.78 mg/dL Normal 0.55-1.02 [facility] Comment on above: Performed By: #### L ACT #### [facility] [address] [address] [address] Sung Moore EGFR-AF GABONESE >60 Normal >=60 [facility] Comment on above: Performed By: #### L ACT #### [facility] [address] [address] [address] Sung Moore EGFR-NON AF GABONESE >60 Normal >=60 [facility] Comment on above: Performed By: #### L ACT #### [facility] [address] [address] [address] Sung Moore Glucose [Mass/Vol] 154 mg/dL Critically high 74-106 [facility] [place] Comment on above: Performed By: #### L ACT #### [facility] [address] [place] [address] Dr. Sung Moore Potassium [Moles/Vol] 4.0 mmol/L Normal 3.5-5.1 [facility] Comment on above: Performed By: #### L ACT #### [facility] [address] [place] [address] Dr. Sung Moore Sodium [Moles/Vol] 126 mmol/L Critically low 136-145 [facility] Comment on above: Performed By: #### L ACT #### [facility] [address] [place] [address] Dr. Sung Moore Urea nitrogen [Mass/Vol] 15.0 mg/dL Normal 7.0-18.0 [facility] Comment on above: Performed By: #### L ACT #### [facility] [address] [place] [address] Dr. Sung Moore Urea nitrogen/Creatinine [Mass ratio] 19.2 mg/mg Normal [facility] Comment on above: Performed By: #### L ACT #### [facility] [address] [address] [address] Sung Moore URINE MICROSCOPIC ONLYon BACTERIA LARGE Abnormal NONE SEEN [facility] Comment on above: Performed By: #### C MP, BNP #### [facility] [address] [place] [address] Dr. Sung Moore Bacteria identified Cx Nom (U) INDICATED Normal [facility] Comment on above: Performed By: #### C MP, BNP #### [facility] [address] [place] [address] Dr. Sung Moore CAST NONE SEEN Normal NONE SEEN [facility] Comment on above: Performed By: #### C MP, BNP #### [facility] [address] [place] [address] Dr. Sung Moore Crystals LM Nom (Urine sed) NONE SEEN Normal NONE SEEN [facility] Comment on above: Performed By: #### C MP, BNP #### [facility] [address] [place] [address] Dr. Sung Moore Epithelial cells LM Ql (Urine sed) FEW Abnormal NONE SEEN /RARE [facility] Comment on above: Performed By: #### C MP, BNP #### [facility] [address] [place] [address] Dr. Sung Moore MUCOUS TRACE Abnormal NONE SEEN [facility] Comment on above: Performed By: #### C MP, BNP #### [facility] [address] [place] [address] Dr. Sung Moore RBC 5-10 Abnormal 0-2 [facility] Comment on above: Performed By: #### C MP, BNP #### [facility] [address] [place] [address] Dr. Sung Moore WBC (U) [#/Vol] /uL Abnormal NONE SEEN [facility] Comment on above: Performed By: #### C MP, BNP #### [facility] [address] [place] [address] Dr. Sung Moore XR CHEST 1 Von [...] SAUNDRA LAGUERRE Date: 2022-03-19 23:56 Normal [facility] BASIC METABOLIC PANELon 12-16 Calcium [Mass/Vol] 8.8 mg/dL Normal 8.6-10.3 [facility] Comment on above: Order Comment: No: D o not add to previous draw Performed By: #### 4 1000, [id number], [id number] #### [facility] [address] [place] [address], [facility] Chloride [Moles/Vol] 101 mmol/L Normal 98-107 [facility] Comment on above: Order Comment: No: D o not add to previous draw Performed By: #### 4 1000, 84038, 64062 #### [facility] [address] [place] [address], [place] CO2 [Moles/Vol] 29 mmol/L Normal 21-31 [facility] Comment on above: Order Comment: No: D o not add to previous draw Performed By: #### 4 1000, [id number], 66390 #### [facility] [address] [place] [address], [place] Creatinine [Mass/Vol] 0.54 mg/dL Low 0.60-1.20 [facility] Comment on above: Order Comment: No: D o not add to previous draw Performed By: #### 4 1000, 94030, 15081 #### [facility] [address] [place] [address], [place] GFR/1.73 sq M.predicted among blacks MDRD (S/P/Bld) [Vol rate/Area] mL/min/{1.73_m2} Normal >60 [facility] Comment on above: Order Comment: No: D o not add to previous draw Result Comment: Calc ulation may not be valid for patients over 70 years Performed By: #### 4 1000, 93147, 15793 #### [facility] [address] [place] [address], [place] GFR/1.73 sq M.predicted among non-blacks MDRD (S/P/Bld) [Vol rate/Area] mL/min/{1.73_m2} Normal >60 [facility] Comment on above: Order Comment: No: D o not add to previous draw Result Comment: Calc ulation may not be valid for patients over 70 years Performed By: #### 4 1000, , 99742 #### [facility] [address] [place] [address], [place] Glucose [Mass/Vol] 85 mg/dL Normal 70-100 [facility] Comment on above: Order Comment: No: D o not add to previous draw Performed By: #### 4 1000, , 16500 #### [facility] [address] [place] [address], [place] Potassium [Moles/Vol] 4.3 mmol/L Normal 3.5-5.1 [facility] Comment on above: Order Comment: No: D o not add to previous draw Performed By: #### 4 1000, , 52814 #### [facility] [address] [place] [address], [place] Sodium [Moles/Vol] 135 mmol/L Low 136-145 [facility] Comment on above: Order Comment: No: D o not add to previous draw Performed By: #### 4 1000, 80479, 32413 #### [facility] [address] [place] [address], [place] Urea nitrogen [Mass/Vol] 8 mg/dL Normal 7-25 [facility] Comment on above: Order Comment: No: D o not add to previous draw Performed By: #### 4 1000, , 66050 #### [facility] [address] [place] [address], [facility] CBC COMPLETE BLOOD COUNTon 0 12-29-2021 Erythrocyte distribution width (RBC) [Ratio] 16.9 % High 11.5-15.0 [facility] Comment on above: Order Comment: No: D o not add to previous draw Performed By: #### 4 1000, , [id number] #### [facility] [address] [place] [address], [facility] Hematocrit (Bld) [Volume fraction] 32.5 % Low 36.0-45.0 [facility] Comment on above: Order Comment: No: D o not add to previous draw Performed By: #### 4 1000, , 14817 #### [facility] [address] [place] [address], [facility] Hemoglobin (Bld) [Mass/Vol] 10.3 g/dL Low 12.0-15.0 [facility] Comment on above: Order Comment: No: D o not add to previous draw Performed By: #### 4 1000, , 64341 #### [facility] [address] [facility] [place] [address], [facility] MCH (RBC) [Entitic mass] 27.4 pg Normal 27.0-33.0 [facility] Comment on above: Order Comment: No: D o not add to previous draw Performed By: #### 4 1000, , 40914 #### [facility] [address] [place] [address], [facility] MCHC (RBC) [Mass/Vol] 31.7 g/dL Low 32.0-35.0 [facility] Comment on above: Order Comment: No: D o not add to previous draw Performed By: #### 4 1000, , 09502 #### [facility] [address] [place] [address], [place] MCV (RBC) [Entitic vol] 86.4 fL Normal 82.0-98.0 [facility] Comment on above: Order Comment: No: D o not add to previous draw Performed By: #### 4 1000, , 13382 #### [facility] [address] [place] [address], [facility] Nucleated RBC/100 WBC (Bld) [Ratio] 0 % Normal 0-0 [facility] Comment on above: Order Comment: No: D o not add to previous draw Performed By: #### 4 1000, , 09257 #### [facility] [address] [place] [address], [place] PLAT CNT 298 10*3/uL Normal 150-400 [facility] Comment on above: Order Comment: No: D o not add to previous draw Performed By: #### 4 1000, , 09194 #### [facility] [address] [place] [id number], [facility] RBC (Bld) [#/Vol] 3.76 10*6/uL Low 3.80-5.00 [facility] Comment on above: Order Comment: No: D o not add to previous draw Performed By: #### 4 1000, , 09559 #### [facility] [address] [place] [id number], [place] WBC (Bld) [#/Vol] 6.86 10*3/uL Normal 4.00-10.60 [facility] Comment on above: Order Comment: No: D o not add to previous draw Performed By: #### 4 1000, , 52613 #### [facility] [address] [place] [address], [place] MAGNESIUM BLOODon 12-29-2021 Magnesium [Mass/Vol] 2.3 mg/dL Normal 1.9-2.7 [facility] Comment on above: Order Comment: No: D o not add to previous draw Performed By: #### 4 1000, , 03449 #### [facility] [address] [place] [address], [place] PHOSPHORUS BLOODon 2 Phosphate [Mass/Vol] 4.1 mg/dL Normal 2.5-5.0 [facility] Comment on above: Order Comment: No: D o not add to previous draw Performed By: #### 4 1000, 55806, [id number] #### [address] [place] [address], [facility] PORTABLE ABDOMENon 2 PORTABLE ABDOMEN [facility] Department of Radiology [address] [place] [address] [phone] Patient Name: SABI SANTAMARIA : 1945 Sex: F Age: Race: Other Pt. Location: [id number] Patient Status: I Ordered Date: 12/29/2021 6:00:00 [...] remains. Electronically signed: Saundra Hyde. Transcribed by: [email or web address], User Resident: Electronically Signed by: SAUNDRA HYDE @ 12/29/2021 07:07 AM Normal [facility] Comment on above: Order Comment: No: D o not add to previous draw BASIC METABOLIC PANELon 12-16 Calcium [Mass/Vol] 8.6 mg/dL Normal 8.6-10.3 [facility] Comment on above: Order Comment: No: D o not add to previous draw Performed By: #### 4 1000, 12399, 83805 #### [facility] [address] [place] [address], [facility] Chloride [Moles/Vol] 104 mmol/L Normal 98-107 [facility] Comment on above: Order Comment: No: D o not add to previous draw Performed By: #### 4 1000, 33668, 06453 #### [facility] [address] [place] [address], [place] CO2 [Moles/Vol] 27 mmol/L Normal 21-31 [facility] Comment on above: Order Comment: No: D o not add to previous draw Performed By: #### 4 1000, 87688, 84847 #### [facility] [address] [place] [address], [place] Creatinine [Mass/Vol] 0.57 mg/dL Low 0.60-1.20 [facility] Comment on above: Order Comment: No: D o not add to previous draw Performed By: #### 4 1000, 00612, 33410 #### [facility] [address] [place] [address], [place] GFR/1.73 sq M.predicted among blacks MDRD (S/P/Bld) [Vol rate/Area] mL/min/{1.73_m2} Normal >60 [facility] Comment on above: Order Comment: No: D o not add to previous draw Result Comment: Calc ulation may not be valid for patients over 70 years Performed By: #### 4 1000, 96522, 49603 #### [facility] [address] [place] [address], [place] GFR/1.73 sq M.predicted among non-blacks MDRD (S/P/Bld) [Vol rate/Area] mL/min/{1.73_m2} Normal >60 [facility] Comment on above: Order Comment: No: D o not add to previous draw Result Comment: Calc ulation may not be valid for patients over 70 years Performed By: #### 4 1000, , 31227 #### [facility] [address] [place] [address], [place] Glucose [Mass/Vol] 117 mg/dL High 70-100 [facility] Comment on above: Order Comment: No: D o not add to previous draw Performed By: #### 4 1000, 16275, 24683 #### [facility] [address] [place] [address], [place] Potassium [Moles/Vol] 4.4 mmol/L Normal 3.5-5.1 [facility] Comment on above: Order Comment: No: D o not add to previous draw Performed By: #### 4 1000, 25358, 63134 #### [facility] [address] [place] [address], [place] Sodium [Moles/Vol] 137 mmol/L Normal 136-145 [facility] Comment on above: Order Comment: No: D o not add to previous draw Performed By: #### 4 1000, 23519, 04078 #### [facility] [address] [place] [address], [place] Urea nitrogen [Mass/Vol] 4 mg/dL Low 7-25 [facility] Comment on above: Order Comment: No: D o not add to previous draw Performed By: #### 4 1000, 69645, 04501 #### [facility] [address] [place] [address], [facility] CBC COMPLETE BLOOD COUNTon 0 12-28-2021 Erythrocyte distribution width (RBC) [Ratio] 17.0 % High 11.5-15.0 [facility] Comment on above: Order Comment: No: D o not add to previous draw Performed By: #### 8 5499 #### [facility] [address] [place] [id number], [facility] Hematocrit (Bld) [Volume fraction] 32.5 % Low 36.0-45.0 [facility] Comment on above: Order Comment: No: D o not add to previous draw Performed By: #### 8 5499 #### [facility] [address] Hemoglobin (Bld) [Mass/Vol] 10.4 g/dL Low 12.0-15.0 [facility] Comment on above: Order Comment: No: D o not add to previous draw Performed By: #### 8 5499 #### [facility] [address] [place] [address], [facility] MCH (RBC) [Entitic mass] 27.7 pg Normal 27.0-33.0 [facility] Comment on above: Order Comment: No: D o not add to previous draw Performed By: #### 8 5499 #### [facility] [address] [place] [address], [facility] MCHC (RBC) [Mass/Vol] 32.0 g/dL Normal 32.0-35.0 [facility] Comment on above: Order Comment: No: D o not add to previous draw Performed By: #### 8 5499 #### [facility] [address] [place] [id number], [facility] MCV (RBC) [Entitic vol] 86.4 fL Normal 82.0-98.0 [facility] Comment on above: Order Comment: No: D o not add to previous draw Performed By: #### 8 5499 #### [facility] [address] [facility] [place] [address], [facility] Nucleated RBC/100 WBC (Bld) [Ratio] 0 % Normal 0-0 [facility] Comment on above: Order Comment: No: D o not add to previous draw Performed By: #### 8 5499 #### [facility] [address] [place] [address], [facility] PLAT CNT 259 10*3/uL Normal 150-400 [facility] Comment on above: Order Comment: No: D o not add to previous draw Performed By: #### 8 5499 #### [facility] [address] [facility] [address], [facility] RBC (Bld) [#/Vol] 3.76 10*6/uL Low 3.80-5.00 [facility] Comment on above: Order Comment: No: D o not add to previous draw Performed By: #### 8 5499 #### [facility] [address] [facility] [place] [address], [facility] WBC (Bld) [#/Vol] 6.18 10*3/uL Normal 4.00-10.60 [facility] Comment on above: Order Comment: No: D o not add to previous draw Performed By: #### 8 5499 #### [facility] [address] [facility] [place] [address], [facility] MAGNESIUM BLOODon 12-28-2021 Magnesium [Mass/Vol] 2.1 mg/dL Normal 1.9-2.7 [facility] Comment on above: Order Comment: No: D o not add to previous draw Performed By: #### 4 1000, 06127, 93070 #### [facility] [address] [place] [address], [facility] PHOSPHORUS BLOODon Phosphate [Mass/Vol] 3.5 mg/dL Normal 2.5-5.0 [facility] Comment on above: Order Comment: No: D o not add to previous draw Performed By: #### 4 1000, , 85615 #### [facility] [address] [place] [address], [place] POC GLUCOSE LABon 12-28-2021 Glucose [Mass/Vol] 124 mg/dL High 70-100 [facility] Comment on above: Performed By: #### 8 5499 #### [facility] [address] [place] [address], [place] Glucose [Mass/Vol] 111 mg/dL High 70-100 [facility] Comment on above: Performed By: #### 8 5499 #### [facility] [address] [place] [address], [place] BASIC METABOLIC PANELon 12-16 Calcium [Mass/Vol] 8.4 mg/dL Low 8.6-10.3 [facility] Comment on above: Order Comment: No: D o not add to previous draw Performed By: #### 4 1000, , 81315 #### [facility] [address] [place] [address], [place] Chloride [Moles/Vol] 106 mmol/L Normal 98-107 [facility] Comment on above: Order Comment: No: D o not add to previous draw Performed By: #### 4 1000, , 26782 #### [facility] [address] [place] [address], [place] CO2 [Moles/Vol] 23 mmol/L Normal 21-31 [facility] Comment on above: Order Comment: No: D o not add to previous draw Performed By: #### 4 1000, , 59800 #### [facility] [address] [place] [address], [place] Creatinine [Mass/Vol] 0.52 mg/dL Low 0.60-1.20 [facility] Comment on above: Order Comment: No: D o not add to previous draw Performed By: #### 4 1000, 49914, 57983 #### [facility] [address] [place] [address], [place] GFR/1.73 sq M.predicted among blacks MDRD (S/P/Bld) [Vol rate/Area] mL/min/{1.73_m2} Normal >60 [facility] Comment on above: Order Comment: No: D o not add to previous draw Result Comment: Calc ulation may not be valid for patients over 70 years Performed By: #### 4 1000, , 61426 #### [facility] [address] [place] [address], [place] GFR/1.73 sq M.predicted among non-blacks MDRD (S/P/Bld) [Vol rate/Area] mL/min/{1.73_m2} Normal >60 [facility] Comment on above: Order Comment: No: D o not add to previous draw Result Comment: Calc ulation may not be valid for patients over 70 years Performed By: #### 4 1000, , 29863 #### [facility] [address] [place] [address], [place] Glucose [Mass/Vol] 119 mg/dL High 70-100 [facility] Comment on above: Order Comment: No: D o not add to previous draw Performed By: #### 4 1000, , 62982 #### [facility] [address] [place] [address], [place] Potassium [Moles/Vol] 3.7 mmol/L Normal 3.5-5.1 [facility] Comment on above: Order Comment: No: D o not add to previous draw Performed By: #### 4 1000, 60907, 17395 #### [facility] [address] [place] [address], [place] Sodium [Moles/Vol] 137 mmol/L Normal 136-145 [facility] Comment on above: Order Comment: No: D o not add to previous draw Performed By: #### 4 1000, , 51156 #### [facility] [address] [place] [address], [facility] Urea nitrogen [Mass/Vol] 3 mg/dL Low 7-25 [facility] Comment on above: Order Comment: No: D o not add to previous draw Performed By: #### 4 1000, , 70871 #### [facility] [address] [place] [address], [facility] CBC COMPLETE BLOOD COUNTon 0 - Erythrocyte distribution width (RBC) [Ratio] 16.5 % High 11.5-15.0 [facility] Comment on above: Order Comment: No: D o not add to previous draw Performed By: #### 4 1000, , #### [facility] [address] [place] [address], [facility] Hematocrit (Bld) [Volume fraction] 31.4 % Low 36.0-45.0 [facility] Comment on above: Order Comment: No: D o not add to previous draw Performed By: #### 4 1000, , #### [facility] [address] [facility] [place] [address], [facility] Hemoglobin (Bld) [Mass/Vol] 10.2 g/dL Low 12.0-15.0 [facility] Comment on above: Order Comment: No: D o not add to previous draw Performed By: #### 4 1000, , 18223 #### [facility] [address] [place] [address], [place] MCH (RBC) [Entitic mass] 28.1 pg Normal 27.0-33.0 [facility] Comment on above: Order Comment: No: D o not add to previous draw Performed By: #### 4 1000, , 04582 #### [facility] [address] [place] [address], [place] MCHC (RBC) [Mass/Vol] 32.5 g/dL Normal 32.0-35.0 [facility] Comment on above: Order Comment: No: D o not add to previous draw Performed By: #### 4 1000, , 88641 #### [facility] [address] [place] [address], [facility] MCV (RBC) [Entitic vol] 86.5 fL Normal 82.0-98.0 [facility] Comment on above: Order Comment: No: D o not add to previous draw Performed By: #### 4 1000, , 10901 #### [facility] [address] [place] [id number], [facility] Nucleated RBC/100 WBC (Bld) [Ratio] 0 % Normal 0-0 [facility] Comment on above: Order Comment: No: D o not add to previous draw Performed By: #### 4 1000, , 21018 #### [facility] [address] [place] [address], [facility] PLAT CNT 230 10*3/uL Normal 150-400 [facility] Comment on above: Order Comment: No: D o not add to previous draw Performed By: #### 4 1000, , 55014 #### [facility] [address] [place] [id number], [facility] RBC (Bld) [#/Vol] 3.63 10*6/uL Low 3.80-5.00 [facility] Comment on above: Order Comment: No: D o not add to previous draw Performed By: #### 4 1000, , 72939 #### [facility] [address] [place] [address], [place] WBC (Bld) [#/Vol] 6.60 10*3/uL Normal 4.00-10.60 [facility] Comment on above: Order Comment: No: D o not add to previous draw Performed By: #### 4 1000, , 25556 #### [facility] [address] [place] [address], [place] MAGNESIUM BLOODon 12-27-2021 Magnesium [Mass/Vol] 1.6 mg/dL Low 1.9-2.7 [facility] Comment on above: Order Comment: No: D o not add to previous draw Performed By: #### 4 1000, , 24350 #### [facility] [address] [place] [address], [place] PHOSPHORUS BLOODon 2 Phosphate [Mass/Vol] 3.2 mg/dL Normal 2.5-5.0 [facility] Comment on above: Order Comment: No: D o not add to previous draw Performed By: #### 4 1000, , 65080 #### [facility] [address] [place] [address], [place] POC GLUCOSE LABon 12-27-2021 Glucose [Mass/Vol] 124 mg/dL High 70-100 [facility] Comment on above: Performed By: #### 4 1000, , 81809 #### [facility] [address] [place] [address], [place] Glucose [Mass/Vol] 127 mg/dL High 70-100 [facility] Comment on above: Performed By: #### 8 5499 #### [facility] [address] [place] [address], [place] Glucose [Mass/Vol] 127 mg/dL High 70-100 [facility] Comment on above: Performed By: #### 4 1000, , 78402 #### [facility] [address] [place] [address], [place] Glucose [Mass/Vol] 124 mg/dL High 70-100 [facility] Comment on above: Performed By: #### 4 1000, , 66719 #### [facility] [address] [place] [address], [place] BASIC METABOLIC PANELon 12-16 Calcium [Mass/Vol] 8.4 mg/dL Low 8.6-10.3 [facility] Comment on above: Order Comment: No: D o not add to previous draw Performed By: #### 8 5499 #### [facility] [address] [place] [address], [place] Chloride [Moles/Vol] 105 mmol/L Normal 98-107 [facility] Comment on above: Order Comment: No: D o not add to previous draw Performed By: #### 8 5499 #### [facility] [address] [place] [address], [place] CO2 [Moles/Vol] 27 mmol/L Normal 21-31 [facility] Comment on above: Order Comment: No: D o not add to previous draw Performed By: #### 8 5499 #### [facility] [address] [place] [address], [place] Creatinine [Mass/Vol] 0.52 mg/dL Low 0.60-1.20 [facility] Comment on above: Order Comment: No: D o not add to previous draw Performed By: #### 8 5499 #### [facility] [address] [place] [address], [place] GFR/1.73 sq M.predicted among blacks MDRD (S/P/Bld) [Vol rate/Area] mL/min/{1.73_m2} Normal >60 [facility] Comment on above: Order Comment: No: D o not add to previous draw Result Comment: Calc ulation may not be valid for patients over 70 years Performed By: #### 8 5499 #### [facility] [address] [place] [address], [place] GFR/1.73 sq M.predicted among non-blacks MDRD (S/P/Bld) [Vol rate/Area] mL/min/{1.73_m2} Normal >60 [facility] Comment on above: Order Comment: No: D o not add to previous draw Result Comment: Calc ulation may not be valid for patients over 70 years Performed By: #### 8 5499 #### [facility] [address] [place] [address], [place] Glucose [Mass/Vol] 114 mg/dL High 70-100 [facility] Comment on above: Order Comment: No: D o not add to previous draw Performed By: #### 8 5499 #### [facility] [address] [place] [address], [place] Potassium [Moles/Vol] 3.5 mmol/L Normal 3.5-5.1 [facility] Comment on above: Order Comment: No: D o not add to previous draw Performed By: #### 8 5499 #### [facility] [address] [place] [address], [place] Sodium [Moles/Vol] 137 mmol/L Normal 136-145 [facility] Comment on above: Order Comment: No: D o not add to previous draw Performed By: #### 8 5499 #### [facility] [address] [place] [address], [place] Urea nitrogen [Mass/Vol] 3 mg/dL Low 7-25 [facility] Comment on above: Order Comment: No: D o not add to previous draw Performed By: #### 8 5499 #### [facility] [address] [place] [address], [place] CBC COMPLETE BLOOD COUNTon 0 - Erythrocyte distribution width (RBC) [Ratio] 16.6 % High 11.5-15.0 [facility] Comment on above: Order Comment: No: D o not add to previous draw Performed By: #### 4 1000, 67382, 98926 #### [facility] [address] [place] [address], [place] Hematocrit (Bld) [Volume fraction] 30.5 % Low 36.0-45.0 [facility] Comment on above: Order Comment: No: D o not add to previous draw Performed By: #### 4 1000, , 49351 #### [facility] [address] [place] [address], [facility] Hemoglobin (Bld) [Mass/Vol] 10.0 g/dL Low 12.0-15.0 [facility] Comment on above: Order Comment: No: D o not add to previous draw Performed By: #### 4 1000, , #### [facility] [address] [facility] [place] [address], [facility] MCH (RBC) [Entitic mass] 27.8 pg Normal 27.0-33.0 [facility] Comment on above: Order Comment: No: D o not add to previous draw Performed By: #### 4 1000, , #### [facility] [address] [facility] [address] MCHC (RBC) [Mass/Vol] 32.8 g/dL Normal 32.0-35.0 [facility] Comment on above: Order Comment: No: D o not add to previous draw Performed By: #### 4 999, , #### [facility] [address] [place] [address], [facility] MCV (RBC) [Entitic vol] 84.7 fL Normal 82.0-98.0 [facility] Comment on above: Order Comment: No: D o not add to previous draw Performed By: #### 4 1000, , 72140 #### [facility] [address] [place] [address], [facility] Nucleated RBC/100 WBC (Bld) [Ratio] 0 % Normal 0-0 [facility] Comment on above: Order Comment: No: D o not add to previous draw Performed By: #### 4 1000, , 07164 #### [facility] [address] [place] [address], [facility] PLAT CNT 221 10*3/uL Normal 150-400 [facility] Comment on above: Order Comment: No: D o not add to previous draw Performed By: #### 4 1000, , 28536 #### [facility] [address] [place] [address], [place] RBC (Bld) [#/Vol] 3.60 10*6/uL Low 3.80-5.00 [facility] Comment on above: Order Comment: No: D o not add to previous draw Performed By: #### 4 1000, , 96182 #### [facility] [address] [place] [address], [place] WBC (Bld) [#/Vol] 6.18 10*3/uL Normal 4.00-10.60 [facility] Comment on above: Order Comment: No: D o not add to previous draw Performed By: #### 4 1000, , 73015 #### [facility] [address] [place] [address], [facility] POC GLUCOSE LABon 12-26-2021 Glucose [Mass/Vol] 125 mg/dL High 70-100 [facility] Comment on above: Performed By: #### 8 5499 #### [facility] [address] [place] [address], [place] Glucose [Mass/Vol] 196 mg/dL High 70-100 [facility] Comment on above: Performed By: #### 4 1000, , 79878 #### [facility] [address] [place] [address], [place] Glucose [Mass/Vol] 110 mg/dL High 70-100 [facility] Comment on above: Performed By: #### 4 1000, , 93958 #### [facility] [address] [place] [address], [place] Glucose [Mass/Vol] 114 mg/dL High 70-100 [facility] Comment on above: Performed By: #### 8 5499 #### [facility] [address] [place] [address], [facility] BASIC METABOLIC PANELon 07-1 0-2021 Calcium [Mass/Vol] 8.4 mg/dL Low 8.6-10.3 [facility] Comment on above: Order Comment: No: D o not add to previous draw Performed By: #### 4 1000, 97657, 49825 #### [facility] [address] [place] [address], [place] Chloride [Moles/Vol] 101 mmol/L Normal 98-107 [facility] Comment on above: Order Comment: No: D o not add to previous draw Performed By: #### 4 1000, 65445, 79157 #### [facility] [address] [place] [address], [place] CO2 [Moles/Vol] 27 mmol/L Normal 21-31 [facility] Comment on above: Order Comment: No: D o not add to previous draw Performed By: #### 4 1000, 59049, 48224 #### [facility] [address] [place] [address], [place] Creatinine [Mass/Vol] 0.54 mg/dL Low 0.60-1.20 [facility] Comment on above: Order Comment: No: D o not add to previous draw Performed By: #### 4 1000, 60983, 95782 #### [facility] [address] [place] [address], [place] GFR/1.73 sq M.predicted among blacks MDRD (S/P/Bld) [Vol rate/Area] mL/min/{1.73_m2} Normal >60 [facility] Comment on above: Order Comment: No: D o not add to previous draw Result Comment: Calc ulation may not be valid for patients over 70 years Performed By: #### 4 1000, 01884, 81774 #### [facility] [address] [place] [address], [place] GFR/1.73 sq M.predicted among non-blacks MDRD (S/P/Bld) [Vol rate/Area] mL/min/{1.73_m2} Normal >60 [facility] Comment on above: Order Comment: No: D o not add to previous draw Result Comment: Calc ulation may not be valid for patients over 70 years Performed By: #### 4 1000, 18796, 14962 #### [facility] [address] [place] [address], [place] Glucose [Mass/Vol] 109 mg/dL High 70-100 [facility] Comment on above: Order Comment: No: D o not add to previous draw Performed By: #### 4 1000, 03447, 04813 #### [facility] [address] [place] [address], [place] Potassium [Moles/Vol] 3.4 mmol/L Low 3.5-5.1 [facility] Comment on above: Order Comment: No: D o not add to previous draw Performed By: #### 4 1000, 58942, 68876 #### [facility] [address] [place] [address], [place] Sodium [Moles/Vol] 135 mmol/L Low 136-145 [facility] Comment on above: Order Comment: No: D o not add to previous draw Performed By: #### 4 1000, 56787, 28659 #### [facility] [address] [place] [address], [place] Urea nitrogen [Mass/Vol] 5 mg/dL Low 7-25 [facility] Comment on above: Order Comment: No: D o not add to previous draw Performed By: #### 4 1000, 26096, 07291 #### [facility] [address] [place] [address], [place] CBC COMPLETE BLOOD COUNTon 0 - Erythrocyte distribution width (RBC) [Ratio] 16.5 % High 11.5-15.0 [facility] Comment on above: Order Comment: No: D o not add to previous draw Performed By: #### 4 1000, 69042, 86860 #### [facility] [address] [place] [address], [facility] Hematocrit (Bld) [Volume fraction] 30.6 % Low 36.0-45.0 [facility] Comment on above: Order Comment: No: D o not add to previous draw Performed By: #### 4 1000, , 42842 #### [facility] [address] [place] [address], [facility] Hemoglobin (Bld) [Mass/Vol] 9.9 g/dL Low 12.0-15.0 [facility] Comment on above: Order Comment: No: D o not add to previous draw Performed By: #### 4 999, , #### [facility] [address] [place] [address], [facility] MCH (RBC) [Entitic mass] 28.0 pg Normal 27.0-33.0 [facility] Comment on above: Order Comment: No: D o not add to previous draw Performed By: #### 4 999, , 76142 #### [facility] [address] [place] [address], [facility] MCHC (RBC) [Mass/Vol] 32.4 g/dL Normal 32.0-35.0 [facility] Comment on above: Order Comment: No: D o not add to previous draw Performed By: #### 4 1000, , 78722 #### [facility] [address] [place] [address], [place] MCV (RBC) [Entitic vol] 86.4 fL Normal 82.0-98.0 [facility] Comment on above: Order Comment: No: D o not add to previous draw Performed By: #### 4 1000, , 11902 #### [facility] [address] [place] [address], [place] Nucleated RBC/100 WBC (Bld) [Ratio] 0 % Normal 0-0 [facility] Comment on above: Order Comment: No: D o not add to previous draw Performed By: #### 4 1000, 53647, 21090 #### [facility] [address] [place] [address], [place] PLAT CNT 245 10*3/uL Normal 150-400 [facility] Comment on above: Order Comment: No: D o not add to previous draw Performed By: #### 4 1000, , 52947 #### [facility] [address] [place] [address], [place] RBC (Bld) [#/Vol] 3.54 10*6/uL Low 3.80-5.00 [facility] Comment on above: Order Comment: No: D o not add to previous draw Performed By: #### 4 1000, , 57159 #### [facility] [address] [place] [address], [place] WBC (Bld) [#/Vol] 6.35 10*3/uL Normal 4.00-10.60 [facility] Comment on above: Order Comment: No: D o not add to previous draw Performed By: #### 4 1000, , 89705 #### [facility] [address] [place] [address], [place] POC GLUCOSE LABon 12-25-2021 Glucose [Mass/Vol] 163 mg/dL High 70-100 [facility] Comment on above: Performed By: #### 8 5499 #### [facility] [address] [place] [address], [place] Glucose [Mass/Vol] 138 mg/dL High 70-100 [facility] Comment on above: Performed By: #### 4 1000, , 98848 #### [facility] [address] [place] [address], [place] Glucose [Mass/Vol] 114 mg/dL High 70-100 [facility] Comment on above: Performed By: #### 8 5499 #### [facility] [address] [facility] [place] [address], [facility] Glucose [Mass/Vol] 112 mg/dL High 70-100 [facility] Comment on above: Performed By: #### 8 5499 #### [facility] [address] [facility] [address], [facility] ABDOMEN 1 on 12-24-2021 ABDOMEN 1 [facility] Department of Radiology [address] [place] [address] [id number] Patient Name: SABI SANTAMARIA : 1945 Sex: F Age: Race: Other Pt. 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 Electronically signed: Shad Quinn. Transcribed by: [email or web address], User Resident: Electronically Signed by: SHAD QUINN @ 12/24/2021 10:23 AM Normal [facility] Comment on above: Order Comment: Song alcantara BASIC METABOLIC PANELon 07- Calcium [Mass/Vol] 8.2 mg/dL Low 8.6-10.3 [facility] Comment on above: Order Comment: No: D o not add to previous draw Performed By: #### 1 0070, 70492, 50120, 79483 #### [facility] [address] [place] [address], [place] Chloride [Moles/Vol] 100 mmol/L Normal 98-107 [facility] Comment on above: Order Comment: No: D o not add to previous draw Performed By: #### 1 0070, 70303, 45497, 24245 #### [facility] [address] [place] [address], [place] CO2 [Moles/Vol] 22 mmol/L Normal 21-31 [facility] Comment on above: Order Comment: No: D o not add to previous draw Performed By: #### 1 0070, 54373, 06173, 42583 #### [facility] [address] [place] [address], [place] Creatinine [Mass/Vol] 0.52 mg/dL Low 0.60-1.20 [facility] Comment on above: Order Comment: No: D o not add to previous draw Performed By: #### 1 0070, 46075, 47506, 13046 #### [facility] [address] [place] [address], [place] GFR/1.73 sq M.predicted among blacks MDRD (S/P/Bld) [Vol rate/Area] mL/min/{1.73_m2} Normal >60 [facility] Comment on above: Order Comment: No: D o not add to previous draw Result Comment: Calc ulation may not be valid for patients over 70 years Performed By: #### 1 0070, 79559, 21631, 40096 #### [facility] [address] [place] [address], [facility] GFR/1.73 sq M.predicted among non-blacks MDRD (S/P/Bld) [Vol rate/Area] mL/min/{1.73_m2} Normal >60 [facility] Comment on above: Order Comment: No: D o not add to previous draw Result Comment: Calc ulation may not be valid for patients over 70 years Performed By: #### 1 0070, 78317, 50861, 73885 #### [facility] [address] [place] [address], [facility] Glucose [Mass/Vol] 43 mg/dL Critically low 70-100 Th [facility] Comment on above: Order Comment: No: D o not add to previous draw Result Comment: M-CR ITICAL RESULT(S) REVIEWED, CALLED TO AND READ BACK BY RAJAT DEVRIES RN @0635 12/24/21 Performed By: #### 1 0070, 89850, 73756, 09286 #### [facility] [address] [place] [address], [facility] Potassium [Moles/Vol] 3.9 mmol/L Normal 3.5-5.1 [facility] Comment on above: Order Comment: No: D o not add to previous draw Performed By: #### 1 0070, 03356, 51029, 92765 #### [facility] [address] [place] [address], [place] Sodium [Moles/Vol] 135 mmol/L Low 136-145 [facility] Comment on above: Order Comment: No: D o not add to previous draw Performed By: #### 1 0070, 62188, 86903, 37001 #### [facility] [address] [place] [address], [facility] Urea nitrogen [Mass/Vol] 10 mg/dL Normal 7-25 [facility] Comment on above: Order Comment: No: D o not add to previous draw Performed By: #### 1 0070, 65806, 77521, 28962 #### [facility] [address] [place] [address], [facility] CBC COMPLETE BLOOD COUNTon 0 12-24-2021 Erythrocyte distribution width (RBC) [Ratio] 16.7 % High 11.5-15.0 [facility] Comment on above: Order Comment: No: D o not add to previous draw Performed By: #### 4 1000, , 84788 #### [facility] [address] [place] [address], [facility] Hematocrit (Bld) [Volume fraction] 30.8 % Low 36.0-45.0 [facility] Comment on above: Order Comment: No: D o not add to previous draw Performed By: #### 4 1000, , 35582 #### [facility] [address] [facility] [place] [address], [facility] Hemoglobin (Bld) [Mass/Vol] 9.7 g/dL Low 12.0-15.0 [facility] Comment on above: Order Comment: No: D o not add to previous draw Performed By: #### 4 1000, , 85105 #### [facility] [address] [place] [address], [place] MCH (RBC) [Entitic mass] 27.8 pg Normal 27.0-33.0 [facility] Comment on above: Order Comment: No: D o not add to previous draw Performed By: #### 4 1000, , 53234 #### [facility] [address] [place] [address], [place] MCHC (RBC) [Mass/Vol] 31.5 g/dL Low 32.0-35.0 [facility] Comment on above: Order Comment: No: D o not add to previous draw Performed By: #### 4 1000, , 98657 #### [facility] [address] [place] [address], [facility] MCV (RBC) [Entitic vol] 88.3 fL Normal 82.0-98.0 [facility] Comment on above: Order Comment: No: D o not add to previous draw Performed By: #### 4 1000, , 76810 #### [facility] [address] [place] [id number], [facility] Nucleated RBC/100 WBC (Bld) [Ratio] 0 % Normal 0-0 [facility] Comment on above: Order Comment: No: D o not add to previous draw Performed By: #### 4 1000, , 97659 #### [facility] [address] [facility] [place] [address], [facility] PLAT CNT 238 10*3/uL Normal 150-400 [facility] Comment on above: Order Comment: No: D o not add to previous draw Performed By: #### 4 1000, , 41570 #### [facility] [address] [place] [address], [facility] RBC (Bld) [#/Vol] 3.49 10*6/uL Low 3.80-5.00 [facility] Comment on above: Order Comment: No: D o not add to previous draw Performed By: #### 4 1000, , 43499 #### [facility] [address] [place] [address], [place] WBC (Bld) [#/Vol] 9.13 10*3/uL Normal 4.00-10.60 [facility] Comment on above: Order Comment: No: D o not add to previous draw Performed By: #### 4 1000, , 57240 #### [facility] [address] [place] [address], [place] LIVER BATTERYon 12-24-2021 Albumin [Mass/Vol] 2.9 g/dL Low 3.5-5.7 [facility] Comment on above: Order Comment: No: D o not add to previous draw Performed By: #### 1 0070, 13121, 73362, 43174 #### [facility] [address] [place] [address], [place] ALKALINE PHOSPH 65 IU/L Normal 34-104 [facility] Comment on above: Order Comment: No: D o not add to previous draw Performed By: #### 1 0070, 91025, 61460, 77672 #### [facility] [address] [place] [address], [place] ALT [Catalytic activity/Vol] 8 U/L Normal 7-52 [facility] Comment on above: Order Comment: No: D o not add to previous draw Performed By: #### 1 0070, 15567, 46241, 24341 #### [facility] [address] [place] [address], [place] AST [Catalytic activity/Vol] 19 U/L Normal 13-39 [facility] Comment on above: Order Comment: No: D o not add to previous draw Performed By: #### 1 0070, 23069, 93981, 96835 #### [facility] [address] [place] [address], [place] Bilirubin [Mass/Vol] 0.7 mg/dL Normal 0.3-1.0 [facility] Comment on above: Order Comment: No: D o not add to previous draw Performed By: #### 1 0070, 49903, 03517, 95767 #### [facility] [address] [place] [address], [place] Bilirubin.direct [Mass/Vol] 0.2 mg/dL Normal 0.0-0.2 [facility] Comment on above: Order Comment: No: D o not add to previous draw Performed By: #### 1 0070, 26990, 35317, 73979 #### [facility] [address] [place] [address], [place] Protein [Mass/Vol] 5.9 g/dL Low 6.0-8.3 [facility] Comment on above: Order Comment: No: D o not add to previous draw Performed By: #### 1 0070, 06281, 88894, 54983 #### [facility] [address] [place] [address], [place] MAGNESIUM BLOODon 12-24-2021 Magnesium [Mass/Vol] 1.8 mg/dL Low 1.9-2.7 [facility] Comment on above: Order Comment: No: D o not add to previous draw Performed By: #### 1 0070, 14977, 07746, 03480 #### [facility] [address] [place] [address], [place] PHOSPHORUS BLOODon Phosphate [Mass/Vol] 3.1 mg/dL Normal 2.5-5.0 [facility] Comment on above: Order Comment: No: D o not add to previous draw Performed By: #### 1 0070, 13248, 19420, 70644 #### [facility] [address] [place] [address], [place] POC GLUCOSE LABon 12-24-2021 Glucose [Mass/Vol] 101 mg/dL High 70-100 [facility] Comment on above: Performed By: #### 8 5499 #### [facility] [address] [place] [address], [place] Glucose [Mass/Vol] 82 mg/dL Normal 70-100 [facility] Comment on above: Performed By: #### 4 1000, 69210, 28217 #### [facility] [address] [place] [address], [place] Glucose [Mass/Vol] 81 mg/dL Normal 70-100 [facility] Comment on above: Performed By: #### 8 5499 #### [facility] [address] [place] [address], [place] Glucose [Mass/Vol] 59 mg/dL Low 70-100 [facility] Comment on above: Performed By: #### 8 5499 #### [facility] [address] [place] [address], [place] BASIC METABOLIC PANELon 07-0 Calcium [Mass/Vol] 8.0 mg/dL Low 8.6-10.3 [facility] Comment on above: Order Comment: No: D o not add to previous draw Performed By: #### 8 5499 #### [facility] [address] [place] [address], [place] Chloride [Moles/Vol] 102 mmol/L Normal 98-107 [facility] Comment on above: Order Comment: No: D o not add to previous draw Performed By: #### 8 5499 #### [facility] [address] [place] [address], [place] CO2 [Moles/Vol] 26 mmol/L Normal 21-31 [facility] Comment on above: Order Comment: No: D o not add to previous draw Performed By: #### 8 5499 #### [facility] [address] [place] [address], [place] Creatinine [Mass/Vol] 0.58 mg/dL Low 0.60-1.20 [facility] Comment on above: Order Comment: No: D o not add to previous draw Performed By: #### 8 5499 #### [facility] [address] [place] [address], [place] GFR/1.73 sq M.predicted among blacks MDRD (S/P/Bld) [Vol rate/Area] mL/min/{1.73_m2} Normal >60 [facility] Comment on above: Order Comment: No: D o not add to previous draw Result Comment: Calc ulation may not be valid for patients over 70 years Performed By: #### 8 5499 #### [facility] [address] [place] [address], [place] GFR/1.73 sq M.predicted among non-blacks MDRD (S/P/Bld) [Vol rate/Area] mL/min/{1.73_m2} Normal >60 [facility] Comment on above: Order Comment: No: D o not add to previous draw Result Comment: Calc ulation may not be valid for patients over 70 years Performed By: #### 8 5499 #### [facility] [address] [place] [address], [place] Glucose [Mass/Vol] 78 mg/dL Normal 70-100 [facility] Comment on above: Order Comment: No: D o not add to previous draw Performed By: #### 8 5499 #### [facility] [address] [place] [address], [place] Potassium [Moles/Vol] 3.6 mmol/L Normal 3.5-5.1 [facility] Comment on above: Order Comment: No: D o not add to previous draw Performed By: #### 8 5499 #### [facility] [address] [place] [address], [place] Sodium [Moles/Vol] 134 mmol/L Low 136-145 [facility] Comment on above: Order Comment: No: D o not add to previous draw Performed By: #### 8 5499 #### [facility] [address] [place] [address], [place] Urea nitrogen [Mass/Vol] 14 mg/dL Normal 7-25 [facility] Comment on above: Order Comment: No: D o not add to previous draw Performed By: #### 8 5499 #### [facility] [address] [place] [address], [place] CBC COMPLETE BLOOD COUNTon 0 7- Erythrocyte distribution width (RBC) [Ratio] 17.1 % High 11.5-15.0 [facility] Comment on above: Order Comment: No: D o not add to previous draw Performed By: #### 4 1000, , 46869 #### [facility] [address] [place] [id number], [facility] Hematocrit (Bld) [Volume fraction] 28.4 % Low 36.0-45.0 [facility] Comment on above: Order Comment: No: D o not add to previous draw Performed By: #### 4 1000, , 20562 #### [facility] [address] [place] [address], [facility] Hemoglobin (Bld) [Mass/Vol] 9.3 g/dL Low 12.0-15.0 [facility] Comment on above: Order Comment: No: D o not add to previous draw Performed By: #### 4 1000, , #### [facility] [address] [place] [address], [facility] MCH (RBC) [Entitic mass] 28.2 pg Normal 27.0-33.0 [facility] Comment on above: Order Comment: No: D o not add to previous draw Performed By: #### 4 1000, , #### [facility] [address] [place] [address], [facility] MCHC (RBC) [Mass/Vol] 32.7 g/dL Normal 32.0-35.0 [facility] Comment on above: Order Comment: No: D o not add to previous draw Performed By: #### 4 1000, , 40727 #### [facility] [address] [place] [address], [place] MCV (RBC) [Entitic vol] 86.1 fL Normal 82.0-98.0 [facility] Comment on above: Order Comment: No: D o not add to previous draw Performed By: #### 4 1000, , 19864 #### [facility] [address] [place] [address], [place] Nucleated RBC/100 WBC (Bld) [Ratio] 0 % Normal 0-0 [facility] Comment on above: Order Comment: No: D o not add to previous draw Performed By: #### 4 1000, 34998, 00180 #### [facility] [address] [place] [address], [facility] PLAT CNT 193 10*3/uL Normal 150-400 [facility] Comment on above: Order Comment: No: D o not add to previous draw Performed By: #### 4 1000, 32353, 65850 #### [facility] [address] [place] [address], [facility] RBC (Bld) [#/Vol] 3.30 10*6/uL Low 3.80-5.00 [facility] Comment on above: Order Comment: No: D o not add to previous draw Performed By: #### 4 1000, 13834, 00824 #### [facility] [address] [place] [address], [facility] WBC (Bld) [#/Vol] 9.87 10*3/uL Normal 4.00-10.60 [facility] Comment on above: Order Comment: No: D o not add to previous draw Performed By: #### 4 1000, 69587, 28599 #### [facility] [address] [place], [place] [id number] [place] [address] CT ABDOMEN AND PELVIS W IV A ND ORAL CONTRASTon 12-23-2021 CT ABDOMEN AND PELVIS W IV AND ORAL CONTRAST [facility] Department of Radiology [address] [place] [address] Patient Name: SABI SANTAMARIA : 1945 Sex: F Age: Race: Other Pt. Location: [id number] Patient Status: I Ordered Date: 12/23/2021 9:05:00 [...] anasarca. Electronically signed: Saundra Hyde. Transcribed by: [email or web address], User Resident: Electronically Signed by: SAUNDRA HYDE @ 12/23/2021 12:49 PM Normal [facility] Comment on above: Order Comment: No: D o not add to previous draw MAGNESIUM BLOODon 12-23-2021 Magnesium [Mass/Vol] 2.0 mg/dL Normal 1.9-2.7 [facility] Comment on above: Order Comment: No: D o not add to previous draw Performed By: #### 8 5499 #### [facility] [address] [place] [address], [facility] PHOSPHORUS BLOODon Phosphate [Mass/Vol] 2.9 mg/dL Normal 2.5-5.0 [facility] Comment on above: Order Comment: No: D o not add to previous draw Performed By: #### 8 5499 #### [facility] [address] [place] [id number], [facility] BASIC METABOLIC PANELon Calcium [Mass/Vol] 8.2 mg/dL Low 8.6-10.3 [facility] Comment on above: Order Comment: No: D o not add to previous draw Performed By: #### 8 5499 #### [facility] [address] [place] [address], [place] Chloride [Moles/Vol] 102 mmol/L Normal 98-107 [facility] Comment on above: Order Comment: No: D o not add to previous draw Performed By: #### 8 5499 #### [facility] [address] [place] [address], [place] CO2 [Moles/Vol] 25 mmol/L Normal 21-31 [facility] Comment on above: Order Comment: No: D o not add to previous draw Performed By: #### 8 5499 #### [facility] [address] [place] [address], [place] Creatinine [Mass/Vol] 0.65 mg/dL Normal 0.60-1.20 [facility] Comment on above: Order Comment: No: D o not add to previous draw Performed By: #### 8 5499 #### [facility] [address] [place] [address], [place] GFR/1.73 sq M.predicted among blacks MDRD (S/P/Bld) [Vol rate/Area] mL/min/{1.73_m2} Normal >60 [facility] Comment on above: Order Comment: No: D o not add to previous draw Result Comment: Calc ulation may not be valid for patients over 70 years Performed By: #### 8 5499 #### [facility] [address] [place] [address], [place] GFR/1.73 sq M.predicted among non-blacks MDRD (S/P/Bld) [Vol rate/Area] mL/min/{1.73_m2} Normal >60 [facility] Comment on above: Order Comment: No: D o not add to previous draw Result Comment: Calc ulation may not be valid for patients over 70 years Performed By: #### 8 5499 #### [facility] [address] [place] [address], [place] Glucose [Mass/Vol] 124 mg/dL High 70-100 [facility] Comment on above: Order Comment: No: D o not add to previous draw Performed By: #### 8 5499 #### [facility] [address] [place] [address], [place] Potassium [Moles/Vol] 3.5 mmol/L Normal 3.5-5.1 [facility] Comment on above: Order Comment: No: D o not add to previous draw Performed By: #### 8 5499 #### [facility] [address] [place] [address], [place] Sodium [Moles/Vol] 135 mmol/L Low 136-145 [facility] Comment on above: Order Comment: No: D o not add to previous draw Performed By: #### 8 5499 #### [facility] [address] [place] [address], [facility] Urea nitrogen [Mass/Vol] 19 mg/dL Normal 7-25 [facility] Comment on above: Order Comment: No: D o not add to previous draw Performed By: #### 8 5499 #### [facility] [address] [place] [id number], [facility] CBC COMPLETE BLOOD COUNTon 0 - Erythrocyte distribution width (RBC) [Ratio] 16.7 % High 11.5-15.0 [facility] Comment on above: Order Comment: No: D o not add to previous draw Performed By: #### 4 999, , 84060 #### [facility] [address] [place] [id number], [place] Hematocrit (Bld) [Volume fraction] 31.8 % Low 36.0-45.0 [facility] Comment on above: Order Comment: No: D o not add to previous draw Performed By: #### 4 1000, 05407, 26315 #### [facility] [address] [place] [address], [place] Hemoglobin (Bld) [Mass/Vol] 10.2 g/dL Low 12.0-15.0 [facility] Comment on above: Order Comment: No: D o not add to previous draw Performed By: #### 4 1000, , 52703 #### [facility] [address] [facility] MCH (RBC) [Entitic mass] 27.8 pg Normal 27.0-33.0 [facility] Comment on above: Order Comment: No: D o not add to previous draw Performed By: #### 4 1000, , 31042 #### [facility] [address] [facility] [address] MCHC (RBC) [Mass/Vol] 32.1 g/dL Normal 32.0-35.0 [facility] Comment on above: Order Comment: No: D o not add to previous draw Performed By: #### 4 1000, , #### [facility] [address] [facility] MCV (RBC) [Entitic vol] 86.6 fL Normal 82.0-98.0 [facility] Comment on above: Order Comment: No: D o not add to previous draw Performed By: #### 4 1000, , 69420 #### [facility] [address] [facility] Nucleated RBC/100 WBC (Bld) [Ratio] 0 % Normal 0-0 [facility] Comment on above: Order Comment: No: D o not add to previous draw Performed By: #### 4 1000, , 99726 #### [facility] [address] [place] [address], [facility] PLAT CNT 224 10*3/uL Normal 150-400 [facility] Comment on above: Order Comment: No: D o not add to previous draw Performed By: #### 4 1000, , [id number] #### [facility] [address] [facility] [place] [address], [facility] RBC (Bld) [#/Vol] 3.67 10*6/uL Low 3.80-5.00 [facility] Comment on above: Order Comment: No: D o not add to previous draw Performed By: #### 4 1000, [id number], [id number] #### [facility] [address] WBC (Bld) [#/Vol] 10.68 10*3/uL High 4.00-10.60 [facility] Comment on above: Order Comment: No: D o not add to previous draw Performed By: #### 4 1000, 21500, 01852 #### [facility] [address] MAGNESIUM BLOODon 12-22-2021 Magnesium [Mass/Vol] 1.8 mg/dL Low 1.9-2.7 [facility] Comment on above: Order Comment: No: D o not add to previous draw Performed By: #### 8 [id number] #### [facility] [address] [facility] PHOSPHORUS BLOODon 2 Phosphate [Mass/Vol] 3.2 mg/dL Normal 2.5-5.0 [facility] Comment on above: Order Comment: No: D o not add to previous draw Performed By: #### 8 [id number] #### [facility] [address] *URINE CULTUREon 12-21-2021 *URINE CULTURE Clinical Report: (D) Specimen/Source: URINE/CLEAN VOID URINE Collected: 12/21/2021 18:00 Status: Final Last Updated: 12/23/2021 08:30 ISO (Final) Citrobacter koseri >100,000 Cfu/Ml ISOLATE: Citrobacter koseri MAHENDRA (mcg/ml) AMP./SULBAC (AMS) 4/2 Susceptible AMPICILLIN (AM) >16 Resistant AZTREONAM (AZM) <=2 Susceptible CEFAZOLIN (CZ) <=1 Susceptible CEFTRIAXONE (MEDICAL RECEPTIONIST BILLER) <=1 Susceptible CIPROFLOXACIN (CIP) <=0.25 Susceptible GENTAMICIN (GM) <=2 Susceptible NITROFURANTOIN (FT) 64 Intermediate PIP/TAZO (TZP) 4/4 Susceptible TOBRAMYCIN (TOB) <=2 Susceptible TRIMETH/SULFA (SXT) <=0.5/9.5 Susceptible Normal [facility] Comment on above: Performed By: #### 8 [id number] #### [facility] [address] BASIC METABOLIC PANELon 07-0 Calcium [Mass/Vol] 8.8 mg/dL Normal 8.6-10.3 [facility] Comment on above: Order Comment: No: D o not add to previous draw Performed By: #### 4 1000, 73978, 16473 #### [facility] [address] [place] [address], [facility] Chloride [Moles/Vol] 102 mmol/L Normal 98-107 [facility] Comment on above: Order Comment: No: D o not add to previous draw Performed By: #### 4 1000, 89899, 84781 #### [facility] [address] [facility] [place] [address], [facility] CO2 [Moles/Vol] 26 mmol/L Normal 21-31 [facility] Comment on above: Order Comment: No: D o not add to previous draw Performed By: #### 4 1000, 39430, 56628 #### [facility] [address] [facility] [place] [address], [facility] Creatinine [Mass/Vol] 0.57 mg/dL Low 0.60-1.20 [facility] Comment on above: Order Comment: No: D o not add to previous draw Performed By: #### 4 1000, 01590, 70977 #### [facility] [address] [place] [address], [facility] GFR/1.73 sq M.predicted among blacks MDRD (S/P/Bld) [Vol rate/Area] mL/min/{1.73_m2} Normal >60 [facility] Comment on above: Order Comment: No: D o not add to previous draw Result Comment: Calc ulation may not be valid for patients over 70 years Performed By: #### 4 1000, , 45731 #### [facility] [address] [place] [address], [place] GFR/1.73 sq M.predicted among non-blacks MDRD (S/P/Bld) [Vol rate/Area] mL/min/{1.73_m2} Normal >60 [facility] Comment on above: Order Comment: No: D o not add to previous draw Result Comment: Calc ulation may not be valid for patients over 70 years Performed By: #### 4 1000, , 75279 #### [facility] [address] [place] [address], [place] Glucose [Mass/Vol] 124 mg/dL High 70-100 [facility] Comment on above: Order Comment: No: D o not add to previous draw Performed By: #### 4 1000, , 76035 #### [facility] [address] [place] [address], [place] Potassium [Moles/Vol] 4.3 mmol/L Normal 3.5-5.1 [facility] Comment on above: Order Comment: No: D o not add to previous draw Performed By: #### 4 1000, , 17895 #### [facility] [address] [place] [address], [place] Sodium [Moles/Vol] 135 mmol/L Low 136-145 [facility] Comment on above: Order Comment: No: D o not add to previous draw Performed By: #### 4 1000, , 43691 #### [facility] [address] [place] [address], [place] Urea nitrogen [Mass/Vol] 15 mg/dL Normal 7-25 [facility] Comment on above: Order Comment: No: D o not add to previous draw Performed By: #### 4 1000, , 41918 #### [facility] [address] [place] [address], [facility] CBC COMPLETE BLOOD COUNTon 0 12-21-2021 Erythrocyte distribution width (RBC) [Ratio] 16.6 % High 11.5-15.0 [facility] Comment on above: Order Comment: No: D o not add to previous draw Performed By: #### 4 1000, , 41636 #### [facility] [address] [place] [address], [facility] Hematocrit (Bld) [Volume fraction] 38.0 % Normal 36.0-45.0 [facility] Comment on above: Order Comment: No: D o not add to previous draw Performed By: #### 4 1000, , 47386 #### [facility] [address] [place] [address], [facility] Hemoglobin (Bld) [Mass/Vol] 12.1 g/dL Normal 12.0-15.0 [facility] Comment on above: Order Comment: No: D o not add to previous draw Performed By: #### 4 999, , 73042 #### [facility] [address] [place] [address], [place] MCH (RBC) [Entitic mass] 27.5 pg Normal 27.0-33.0 [facility] Comment on above: Order Comment: No: D o not add to previous draw Performed By: #### 4 1000, , 35517 #### [facility] [address] [place] [address], [place] MCHC (RBC) [Mass/Vol] 31.8 g/dL Low 32.0-35.0 [facility] Comment on above: Order Comment: No: D o not add to previous draw Performed By: #### 4 1000, , 81817 #### [facility] [address] [place] [address], [place] MCV (RBC) [Entitic vol] 86.4 fL Normal 82.0-98.0 [facility] Comment on above: Order Comment: No: D o not add to previous draw Performed By: #### 4 1000, , 27092 #### [facility] [address] [place] [address], [facility] Nucleated RBC/100 WBC (Bld) [Ratio] 0 % Normal 0-0 [facility] Comment on above: Order Comment: No: D o not add to previous draw Performed By: #### 4 1000, , 27307 #### [facility] [address] [place] [address], [place] PLAT CNT 289 10*3/uL Normal 150-400 [facility] Comment on above: Order Comment: No: D o not add to previous draw Performed By: #### 4 1000, , #### [facility] [address] [place] [address], [facility] RBC (Bld) [#/Vol] 4.40 10*6/uL Normal 3.80-5.00 [facility] Comment on above: Order Comment: No: D o not add to previous draw Performed By: #### 4 1000, , 32468 #### [facility] [address] [place] [address], [facility] WBC (Bld) [#/Vol] 9.11 10*3/uL Normal 4.00-10.60 [facility] Comment on above: Order Comment: No: D o not add to previous draw Performed By: #### 4 1000, , 81811 #### [facility] [address] [place] [address], [place] MAGNESIUM BLOODon 12-21-2021 Magnesium [Mass/Vol] 1.8 mg/dL Low 1.9-2.7 [facility] Comment on above: Order Comment: No: D o not add to previous draw Performed By: #### 4 1000, , 25886 #### [facility] [address] [place] [address], [facility] PHOSPHORUS BLOODon 2 Phosphate [Mass/Vol] 3.7 mg/dL Normal 2.5-5.0 [facility] Comment on above: Order Comment: No: D o not add to previous draw Performed By: #### 4 1000, 52396, 73800 #### [facility] [address] [place] [address], [facility] POC GLUCOSE LABon 2 Glucose [Mass/Vol] 124 mg/dL High 70-100 [facility] Comment on above: Performed By: #### 4 1000, 87000, 27047 #### [facility] [address] [facility] [address], [facility] URINALYSIS REFLEXon 12-22-19 22 Appearance (U) CLOUDY Abnormal CLEAR [facility] Comment on above: Order Comment: No: D o not add to previous drawCriteria for reflexing a culture was met. Urine Culture and sensitivitywill be performed. Performed By: #### 8 5499 #### [facility] [address] [facility] [address], [facility] Bilirubin Ql (U) Negative Normal NEGATIVE [facility] Comment on above: Order Comment: No: D o not add to previous drawCriteria for reflexing a culture was met. Urine Culture and sensitivitywill be performed. Performed By: #### 8 5499 #### [facility] [address] [place] [address], [facility] Color (U) YELLOW Normal YELLOW [facility] Comment on above: Order Comment: No: D o not add to previous drawCriteria for reflexing a culture was met. Urine Culture and sensitivitywill be performed. Performed By: #### 8 5499 #### [facility] [address] [place] [address], [place] EPIS OCC Normal FEW,OCC,NO NE SEEN [facility] Comment on above: Order Comment: No: D o not add to previous drawCriteria for reflexing a culture was met. Urine Culture and sensitivitywill be performed. Performed By: #### 8 5499 #### [facility] [address] [place] [address], [facility] Glucose Ql (U) Negative Normal NEGATIVE [facility] Comment on above: Order Comment: No: D o not add to previous drawCriteria for reflexing a culture was met. Urine Culture and sensitivitywill be performed. Performed By: #### 8 5499 #### [facility] [address] [place] [address], [place] Hemoglobin Ql (U) Negative Normal NEGATIVE [facility] Comment on above: Order Comment: No: D o not add to previous drawCriteria for reflexing a culture was met. Urine Culture and sensitivitywill be performed. Performed By: #### 8 5499 #### [facility] [address] [place] [address], [facility] KETONE Negative Normal NEGATIVE [facility] Comment on above: Order Comment: No: D o not add to previous drawCriteria for reflexing a culture was met. Urine Culture and sensitivitywill be performed. Performed By: #### 8 5499 #### [facility] [address] [place] [address], [facility] LEUK MICHELE LARGE Abnormal NEGATIVE [facility] Comment on above: Order Comment: No: D o not add to previous drawCriteria for reflexing a culture was met. Urine Culture and sensitivitywill be performed. Performed By: #### 8 5499 #### [facility] [address] [place] [address], [place] MUCUS THREADS OCC Abnormal NONE SEEN [facility] Comment on above: Order Comment: No: D o not add to previous drawCriteria for reflexing a culture was met. Urine Culture and sensitivitywill be performed. Performed By: #### 8 5499 #### [facility] [address] [place] [address], [facility] Nitrite Ql (U) Positive Abnormal NEGATIVE [facility] Comment on above: Order Comment: No: D o not add to previous drawCriteria for reflexing a culture was met. Urine Culture and sensitivitywill be performed. Performed By: #### 8 5499 #### [facility] [address] pH (U) 5.0 [pH] Normal 5.0-8.0 [facility] Comment on above: Order Comment: No: D o not add to previous drawCriteria for reflexing a culture was met. Urine Culture and sensitivitywill be performed. Performed By: #### 8 5499 #### [facility] [address] [facility] [address] Protein Ql (U) 30 mg/dL Abnormal NEGATIVE [facility] Comment on above: Order Comment: No: D o not add to previous drawCriteria for reflexing a culture was met. Urine Culture and sensitivitywill be performed. Performed By: #### 8 5499 #### [facility] [address] [facility] [address] RBC NONE SEEN Normal NONE SEEN [facility] Comment on above: Order Comment: No: D o not add to previous drawCriteria for reflexing a culture was met. Urine Culture and sensitivitywill be performed. Performed By: #### 8 5499 #### [facility] [address] [facility] SPEC GRAV 1.025 High 1.015-1.02 0 [facility] Comment on above: Order Comment: No: D o not add to previous drawCriteria for reflexing a culture was met. Urine Culture and sensitivitywill be performed. Performed By: #### 8 5499 #### [facility] [address] [place] [address], [facility] WBC UA >100 Abnormal NONE SEEN [facility] Comment on above: Order Comment: No: D o not add to previous drawCriteria for reflexing a culture was met. Urine Culture and sensitivitywill be performed. Performed By: #### 8 [id number] #### [facility] [address] [place] [address], [facility] AMYLASEon 12-20-2021 Amylase [Catalytic activity/Vol] 47 U/L Normal 25-115 [facility] Comment on above: Performed By: #### A EARL ESTRADAA, CMP #### [facility] [address] [place] [address] Dr. Sung Moore CBC AUTO DIFFon 12-20-2021 BASO # 0.0 103/ul Normal 0.0-0.1 [facility] Comment on above: Performed By: #### A CHILO ESTRADA, CMP #### [facility] [address] [place] [address] Dr. Sung Moore Basophils/100 WBC (Bld) 0.1 % Critically low 0.2-2.0 [facility] Comment on above: Performed By: #### A EARL ESTRADAA, CMP #### [facility] [address] [place] [address] Dr. Sung Moore EO # 0.1 103/ul Normal 0.0-0.7 [facility] Comment on above: Performed By: #### A EARL ESTRADAA, CMP #### [facility] [address] [place] [address] Dr. Sung Moore Eosinophils/100 WBC (Bld) 0.5 % Critically low 0.9-7.0 [facility] Comment on above: Performed By: #### A SEAN LIPA, CMP #### [facility] [address] [place] [address] Dr. Sung Moore Erythrocyte distribution width (RBC) [Ratio] 16.4 % Critically high 11.0-15.0 [facility] Comment on above: Performed By: #### A EARL ESTRADAA, CMP #### [facility] [address] [place] [address] Dr. Sung Moore Hematocrit (Bld) [Volume fraction] 41.8 % Normal 36.0-48.0 [facility] Comment on above: Performed By: #### A SEAN LIPA, CMP #### [facility] [address] [address] [address] Sung Moore Hemoglobin (Bld) [Mass/Vol] 13.2 g/dL Normal 12.0-16.0 [facility] Comment on above: Performed By: #### A MY, LIPA, CMP #### [facility] [address] [address] [address] Sung Moore IG # 0.07 10e3/ul Critically high 0.00-0.03 [facility] Comment on above: Performed By: #### A MY, LIPA, CMP #### [facility] [address] [address] [address] Sung Moore IG % 0.5 % Normal 0.0-0.5 [facility] Comment on above: Performed By: #### A MY, LIPA, CMP #### [facility] [address] [place] [address] Dr. Sung Moore LYMPH # 1.4 103/ul Normal 1.2-3.8 [facility] Comment on above: Performed By: #### A MY, LIPA, CMP #### [facility] [address] [address] [address] Sung Moore Lymphocytes/100 WBC (Bld) 9.7 % Critically low 20.5-60.0 [facility] Comment on above: Performed By: #### A MY, LIPA, CMP #### [facility] [address] [address] [address] Sung Moore MANUAL DIFF REQ NO Normal [facility] Comment on above: Performed By: #### A MY, LIPA, CMP #### [facility] [address] [address] [address] Sung Moore MCH (RBC) [Entitic mass] 27.4 pg Normal 26.7-34.0 [facility] Comment on above: Performed By: #### A MY, LIPA, CMP #### [facility] [address] [address] [address] Sung Moore MCHC (RBC) [Mass/Vol] 31.6 g/dL Normal 29.9-35.2 [facility] Comment on above: Performed By: #### A MY LIPA, CMP #### [facility] [address] [place] [address] Dr. Sung Moore MCV (RBC) [Entitic vol] 86.9 fL Normal 81.0-99.0 [facility] Comment on above: Performed By: #### A MY LIPA, CMP #### [facility] [address] [place] [address] Dr. Sung Moore MONO # 0.7 103/ul Normal 0.3-0.8 [facility] Comment on above: Performed By: #### A MY LIPA, CMP #### [facility] [address] [place] [address] Dr. Sung Moore Monocytes/100 WBC (Bld) 5.3 % Normal 1.7-12.0 [facility] Comment on above: Performed By: #### A MY LIPA, CMP #### [facility] [address] [place] [address] Dr. Sung Moore NEUT # 11.8 103/ul Critically high 1.4-6.5 [facility] Comment on above: Performed By: #### A MY LIPA, CMP #### [facility] [address] [place] [address] Dr. Sung Moore Neutrophils/100 WBC (Bld) 83.9 % Critically high 43.0-75.0 [facility] Comment on above: Performed By: #### A MY LIPA, CMP #### [facility] [address] [place] [address] Dr. Sung Moore Platelet mean volume (Bld) [Entitic vol] 9.9 fL Normal 9.5-13.5 [facility] Comment on above: Performed By: #### A MY LIPA, CMP #### [facility] [address] [place] [address] Dr. Sung Moore PLT 335 103/ul Normal 150-450 [facility] Comment on above: Performed By: #### A MY LIPA, CMP #### [facility] [address] [place], [place] [address] Dr. Sung Moore RBC 4.81 106/ul Normal 4.20-5.40 [facility] Comment on above: Performed By: #### A CHILO ESTRADA, CMP #### [facility] [address] [place], [place] [address] Dr. Sung Moore WBC 14.1 103/ul Critically high 4.0-11.0 [facility] Comment on above: Performed By: #### A CHILO ESTRADA, CMP #### [facility] [address] [place], [place] [address] ABD/PELV W CONon [...] DION SNOWDEN Date: 2021-12-20 13:12 Normal [facility]on SARS-CoV-2 (COVID-19) RNA ROMY+probe Ql (Unsp spec) Not detected Normal NOT DETECTED [facility] Comment on above: Result Comment: When [...] for this test is supported by the Residential Treatment Specialist of Health and Human Service's declaration that [...] used). Performed By: #### L ACT #### [facility] [address] [place] [address] Dr. Sung Moroe LIPASEon 12-20-2021 Lipase [Catalytic activity/Vol] 93.0 U/L Normal 73.0-393.0 [facility] Comment on above: Performed By: #### A MY, LIPA, CMP #### [facility] [address] [place] [address] Dr. Sung Moore PROF 14(COMP METB)on 022 Albumin [Mass/Vol] 3.6 g/dL Normal 3.4-5.0 [facility] Comment on above: Performed By: #### A MY, LIPA, CMP #### [facility] [address] [address] [address] Sung Moore Albumin/Globulin [Mass ratio] 0.7 {ratio} Normal [facility] Comment on above: Performed By: #### A MY, LIPA, CMP #### [facility] [address] [place] [address] Dr. Sung Moore ALP [Catalytic activity/Vol] 128 U/L Critically high 46-116 [facility] Comment on above: Performed By: #### A MY, LIPA, CMP #### [facility] [address] [place] [address] Dr. Sung Moore ALT [Catalytic activity/Vol] 20 U/L Normal 14-59 [facility] Comment on above: Performed By: #### A MY, LIPA, CMP #### [facility] [address] [place] [address] Dr. Sung Moore Anion gap [Moles/Vol] 11.7 mmol/L Normal [facility] Comment on above: Performed By: #### A MY, LIPA, CMP #### [facility] [address] [place] [address] Dr. Sung Moore AST [Catalytic activity/Vol] 22 U/L Normal 15-37 [facility] Comment on above: Performed By: #### A MY, LIPA, CMP #### [facility] [address] [place] [address] Dr. Sung Moore Bilirubin [Mass/Vol] 0.8 mg/dL Normal 0.2-1.0 [facility] Comment on above: Performed By: #### A MY, LIPA, CMP #### [facility] [address] [place] [address] Dr. Sung Moore Calcium [Mass/Vol] 9.8 mg/dL Normal 8.5-10.1 [facility] Comment on above: Performed By: #### A CHILO ESTRADA, CMP #### [facility] [address] [address] [address] Sung Moore Chloride [Moles/Vol] 99 mmol/L Normal 98-107 [facility] Comment on above: Performed By: #### A CHILO ESTRADA, CMP #### [facility] [address] [address] [address] Sung Moore CO2 [Moles/Vol] 26.6 mmol/L Normal 21.0-32.0 [facility] Comment on above: Performed By: #### A CHILO ESTRADA, CMP #### [facility] [address] [place] [address] Dr. Sung Moore Creatinine [Mass/Vol] 0.82 mg/dL Normal 0.55-1.02 [facility] Comment on above: Performed By: #### A CHILO ESTRADA, CMP #### [facility] [address] [place] [address] Dr. Sung Moore EGFR-AF GABONESE >60 Normal >=60 [facility] Comment on above: Performed By: #### A CHILO ESTRADA, CMP #### [facility] [address] [place] [address] Dr. Sung Moore EGFR-NON AF GABONESE >60 Normal >=60 [facility] Comment on above: Performed By: #### A CHILO ESTRADA, CMP #### [facility] [address] [place] [address] Dr. Sung Moore Globulin (S) [Mass/Vol] 5.0 g/dL Normal [facility] Comment on above: Performed By: #### A CHILO ESTRADA, CMP #### [facility] [address] [place] [address] Dr. Sung Moore Glucose [Mass/Vol] 188 mg/dL Critically high 74-106 [facility] Comment on above: Performed By: #### A CHILO ESTRADA, CMP #### [facility] [address] [place], [place] [id number] Dr. Sung Moore Potassium [Moles/Vol] 4.3 mmol/L Normal 3.5-5.1 [facility] Comment on above: Performed By: #### A CHILO ESTRADA, CMP #### [facility] [address] [place] [address] Dr. Sung Moore Protein [Mass/Vol] 8.6 g/dL Critically high 6.4-8.2 [facility] Comment on above: Performed By: #### A CHILO ESTRADA, CMP #### [facility] [address] [place] [address] Dr. Sung Moore Sodium [Moles/Vol] 133 mmol/L Critically low 136-145 [facility] Comment on above: Performed By: #### A CHILO ESTRADA, CMP #### [facility] [address] [place] [address] Dr. Sung Moore Urea nitrogen [Mass/Vol] 15.0 mg/dL Normal 7.0-18.0 [facility] Comment on above: Performed By: #### A CHILO ESTRADA, CMP #### [facility] [address] [place] [address] Dr. Sung Moore Urea nitrogen/Creatinine [Mass ratio] 18.3 mg/mg Normal [facility] Comment on above: Performed By: #### A CHILO ESTRADA, CMP #### [facility] [address] [place] [address] Dr. Sung Moore XR KUB 1 VIEWon [...] by: DION SNOWDEN Date: 2021-12-20 14:16 Normal [facility] BNPon 11-13-2021 Natriuretic peptide B (Bld) [Mass/Vol] 3120.0 pg/mL Critically high <=1,800.0 [facility] Comment on above: Performed By: #### C MP, BNP #### [facility] [address] [place] [address] Dr. Sung Moore CBC AUTO DIFFon 11-13-2021 BASO # 0.0 103/ul Normal 0.0-0.1 [facility] Comment on above: Performed By: #### C RP, CMP #### [facility] [address] [place] [address] Dr. Sung Moore Basophils/100 WBC (Bld) 0.1 % Critically low 0.2-2.0 [facility] Comment on above: Performed By: #### C RP, CMP #### [facility] [address] [place] [address] Dr. Sung Moore EO # 0.0 103/ul Normal 0.0-0.7 [facility] Comment on above: Performed By: #### C RP, CMP #### [facility] [address] [place] [address] Dr. Sung Moore Eosinophils/100 WBC (Bld) 0.0 % Critically low 0.9-7.0 [facility] Comment on above: Performed By: #### C RP, CMP #### [facility] [address] [place] [address] Dr. Sung Moore Erythrocyte distribution width (RBC) [Ratio] 15.8 % Critically high 11.0-15.0 [facility] Comment on above: Performed By: #### C RP, CMP #### [facility] [address] [place] [address] Dr. Sung Moore Hematocrit (Bld) [Volume fraction] 27.5 % Critically low 36.0-48.0 [facility] Comment on above: Performed By: #### C RP, CMP #### [facility] [address] [place] [address] Dr. Sung Moore Hemoglobin (Bld) [Mass/Vol] 8.6 g/dL Critically low 12.0-16.0 [facility] Comment on above: Performed By: #### C RP, CMP #### [facility] [address] [address] [address] Sung Moore IG # 0.10 10e3/ul Critically high 0.00-0.03 [facility] Comment on above: Performed By: #### C RP, CMP #### [facility] [address] [address] [address] Sung Moore IG % 0.7 % Critically high 0.0-0.5 [facility] Comment on above: Performed By: #### C RP, CMP #### [facility] [address] [place] [address] Dr. Sung Moore LYMPH # 1.2 103/ul Normal 1.2-3.8 [facility] Comment on above: Performed By: #### C RP, CMP #### [facility] [address] [place] [address] Dr. Sung Moore Lymphocytes/100 WBC (Bld) 9.3 % Critically low 20.5-60.0 [facility] Comment on above: Performed By: #### C RP, CMP #### [facility] [address] [place] [address] Dr. Sung Moore MANUAL DIFF REQ NO Normal [facility] Comment on above: Performed By: #### C RP, CMP #### [facility] [address] [place] [address] Dr. Sung Moore MCH (RBC) [Entitic mass] 27.4 pg Normal 26.7-34.0 [facility] Comment on above: Performed By: #### C RP, CMP #### [facility] [address] [place] [address] Dr. Sung Moore MCHC (RBC) [Mass/Vol] 31.3 g/dL Normal 29.9-35.2 [facility] Comment on above: Performed By: #### C RP, CMP #### [facility] [address] [place] [address] Dr. Sung Moore MCV (RBC) [Entitic vol] 87.6 fL Normal 81.0-99.0 [facility] Comment on above: Performed By: #### C RP, CMP #### [facility] [address] [address] [address] Sung Moore MONO # 0.2 103/ul Critically low 0.3-0.8 [facility] Comment on above: Performed By: #### C RP, CMP #### [facility] [address] [address] [address] Sung Moore Monocytes/100 WBC (Bld) 1.6 % Critically low 1.7-12.0 [facility] Comment on above: Performed By: #### C RP, CMP #### [facility] [address] [address] [address] Sung Moore NEUT # 11.8 103/ul Critically high 1.4-6.5 [facility] Comment on above: Performed By: #### C RP, CMP #### [facility] [address] [place] [address] Dr. Sung Moore Neutrophils/100 WBC (Bld) 88.3 % Critically high 43.0-75.0 [facility] Comment on above: Performed By: #### C RP, CMP #### [facility] [address] [place] [address] Dr. Sung Moore Platelet mean volume (Bld) [Entitic vol] 9.5 fL Normal 9.5-13.5 [facility] Comment on above: Performed By: #### C RP, CMP #### [facility] [address] [place] [address] Dr. Sung Moore PLT 239 103/ul Normal 150-450 [facility] Comment on above: Performed By: #### C RP, CMP #### [facility] [address] [place] [address] Dr. Sung Moore RBC 3.14 106/ul Critically low 4.20-5.40 [facility] Comment on above: Performed By: #### C RP, CMP #### [facility] [address] [place] [address] Dr. Sung Moore WBC 13.4 103/ul Critically high 4.0-11.0 [facility] Comment on above: Performed By: #### C RP, CMP #### [facility] [address] [address] [address] Sung Moore PROF 14(COMP METB)on 022 Albumin [Mass/Vol] 2.4 g/dL Critically low 3.4-5.0 [facility] Comment on above: Performed By: #### C MP, BNP #### [facility] [address] [address] [address] Sung Moore Albumin/Globulin [Mass ratio] 0.6 {ratio} Normal [facility] Comment on above: Performed By: #### C MP, BNP #### [facility] [address] [address] [address] Sung Moore ALP [Catalytic activity/Vol] 68 U/L Normal 46-116 [facility] Comment on above: Performed By: #### C MP, BNP #### [facility] [address] [place] [address] Dr. Sung Moore ALT [Catalytic activity/Vol] 21 U/L Normal 14-59 [facility] Comment on above: Performed By: #### C MP, BNP #### [facility] [address] [address] [address] Sung Moore Anion gap [Moles/Vol] 14.9 mmol/L Normal [facility] Comment on above: Performed By: #### C MP, BNP #### [facility] [address] [address] [address] Sung Moore AST [Catalytic activity/Vol] 22 U/L Normal 15-37 [facility] Comment on above: Performed By: #### C MP, BNP #### [facility] [address] [address] [address] Sung Moore Bilirubin [Mass/Vol] 0.2 mg/dL Normal 0.2-1.0 [facility] Comment on above: Performed By: #### C MP, BNP #### [facility] [address] [address] [address] Sung Moore Calcium [Mass/Vol] 8.6 mg/dL Normal 8.5-10.1 [facility] Comment on above: Performed By: #### C MP, BNP #### [facility] [address] [address] [address] Sung Moore Chloride [Moles/Vol] 108 mmol/L Critically high 98-107 [facility] Comment on above: Performed By: #### C MP, BNP #### [facility] [address] [place] [address] Dr. Sung Moore CO2 [Moles/Vol] 20.1 mmol/L Critically low 21.0-32.0 [facility] Comment on above: Performed By: #### C MP, BNP #### [facility] [address] [address] [address] Sung Moore Creatinine [Mass/Vol] 0.74 mg/dL Normal 0.55-1.02 [facility] Comment on above: Performed By: #### C MP, BNP #### [facility] [address] [place] [address] Dr. Sung Moore EGFR-AF GABONESE >60 Normal >=60 [facility] Comment on above: Performed By: #### C MP, BNP #### [facility] [address] [place] [address] Dr. Sung Moore EGFR-NON AF GABONESE >60 Normal >=60 [facility] Comment on above: Performed By: #### C MP, BNP #### [facility] [address] [place] [address] Dr. Sung Moore Globulin (S) [Mass/Vol] 4.3 g/dL Normal [facility] Comment on above: Performed By: #### C MP, BNP #### [facility] [address] [place] [address] Dr. Sung Moore Glucose [Mass/Vol] 138 mg/dL Critically high 74-106 [facility] Comment on above: Performed By: #### C MP, BNP #### [facility] [address] [place] [address] Dr. Sung Moore Potassium [Moles/Vol] 4.0 mmol/L Normal 3.5-5.1 [facility] Comment on above: Performed By: #### C MP, BNP #### [facility] [address] [place] [address] Dr. Sung Moore Protein [Mass/Vol] 6.7 g/dL Normal 6.4-8.2 [facility] Comment on above: Performed By: #### C MP, BNP #### [facility] [address] [place] [address] Dr. Sung Moore Sodium [Moles/Vol] 139 mmol/L Normal 136-145 [facility] Comment on above: Performed By: #### C MP, BNP #### [facility] [address] [place] [address] Dr. Sung Moore Urea nitrogen [Mass/Vol] 23.0 mg/dL Critically high 7.0-18.0 [facility] Comment on above: Performed By: #### C MP, BNP #### [facility] [address] [place] [address] Dr. Sung Moore Urea nitrogen/Creatinine [Mass ratio] 31.1 mg/mg Normal [facility] Comment on above: Performed By: #### C MP, BNP #### [facility] [address] [place] [address] Dr. Sung Moore BNPon 11-12-2021 Natriuretic peptide B (Bld) [Mass/Vol] 3014.0 pg/mL Critically high <=1,800.0 [facility] Comment on above: Performed By: #### L ACT #### [facility] [address] [place] [address] Dr. Sung Moore CBC AUTO DIFFon 11-12-2021 BASO # 0.0 103/ul Normal 0.0-0.1 [facility] Comment on above: Performed By: #### C BC #### [facility] [address] [place] [address] Dr. Sung Moore Basophils/100 WBC (Bld) 0.1 % Critically low 0.2-2.0 [facility] Comment on above: Performed By: #### C BC #### [facility] [address] [place] [address] Dr. Sung Moore EO # 0.0 103/ul Normal 0.0-0.7 [facility] Comment on above: Performed By: #### C BC #### [facility] [address] [place] [address] Dr. Sung Moore Eosinophils/100 WBC (Bld) 0.0 % Critically low 0.9-7.0 [facility] Comment on above: Performed By: #### C BC #### [facility] [address] [place] [address] Dr. Sung Moore Erythrocyte distribution width (RBC) [Ratio] 15.5 % Critically high 11.0-15.0 [facility] Comment on above: Performed By: #### C BC #### [facility] [address] [place] [address] Dr. Sung Moore Hematocrit (Bld) [Volume fraction] 28.4 % Critically low 36.0-48.0 [facility] Comment on above: Performed By: #### C BC #### [facility] [address] [place] [address] Dr. Sung Moore Hemoglobin (Bld) [Mass/Vol] 8.8 g/dL Critically low 12.0-16.0 [facility] Comment on above: Performed By: #### C BC #### [facility] [address] [place] [address] Dr. Sung Moore IG # 0.06 10e3/ul Critically high 0.00-0.03 [facility] Comment on above: Performed By: #### C BC #### [facility] [address] [place] [address] Dr. Sung Moore IG % 0.4 % Normal 0.0-0.5 [facility] Comment on above: Performed By: #### C BC #### [facility] [address] [place] [address] Dr. Sung Moore LYMPH # 1.3 103/ul Normal 1.2-3.8 [facility] Comment on above: Performed By: #### C BC #### [facility] [address] [place] [address] Dr. Sung Moore Lymphocytes/100 WBC (Bld) 9.2 % Critically low 20.5-60.0 [facility] Comment on above: Performed By: #### C BC #### [facility] [address] [place] [address] Dr. Sung Moore MANUAL DIFF REQ NO Normal [facility] Comment on above: Performed By: #### C BC #### [facility] [address] [place] [address] Dr. Sung Moore MCH (RBC) [Entitic mass] 27.2 pg Normal 26.7-34.0 [facility] Comment on above: Performed By: #### C BC #### [facility] [address] [place] [address] Dr. Sung Moore MCHC (RBC) [Mass/Vol] 31.0 g/dL Normal 29.9-35.2 [facility] Comment on above: Performed By: #### C BC #### [facility] [address] [place] [address] Dr. Sung Moore MCV (RBC) [Entitic vol] 87.7 fL Normal 81.0-99.0 [facility] Comment on above: Performed By: #### C BC #### [facility] [address] [place] [address] Dr. Sung Moore MONO # 0.5 103/ul Normal 0.3-0.8 [facility] Comment on above: Performed By: #### C BC #### [facility] [address] [place] [address] Dr. Sung Moore Monocytes/100 WBC (Bld) 3.5 % Normal 1.7-12.0 [facility] Comment on above: Performed By: #### C BC #### [facility] [address] [place] [address] Dr. Sung Moore NEUT # 12.1 103/ul Critically high 1.4-6.5 [facility] Comment on above: Performed By: #### C BC #### [facility] [address] [place] [address] Dr. Sung Moore Neutrophils/100 WBC (Bld) 86.8 % Critically high 43.0-75.0 [facility] Comment on above: Performed By: #### C BC #### [facility] [address] [address] [address] Sung Moore Platelet mean volume (Bld) [Entitic vol] 9.8 fL Normal 9.5-13.5 [facility] Comment on above: Performed By: #### C BC #### [facility] [address] [place] [address] Dr. Sung Moore PLT 250 103/ul Normal 150-450 [facility] Comment on above: Performed By: #### C BC #### [facility] [address] [address] [address] Sung Moore RBC 3.24 106/ul Critically low 4.20-5.40 [facility] Comment on above: Performed By: #### C BC #### [facility] [address] [place] [address] Dr. Sung Moore WBC 13.9 103/ul Critically high 4.0-11.0 [facility] Comment on above: Performed By: #### C BC #### [facility] [address] [place] [address] Dr. Sung Moore CULTURE URINEon 11-12-2021 CULTURE [...] F Trimethoprim/Sulfamethoxa zole <=20 S F Normal [facility] Comment on above: Performed By: #### C RP, CMP #### [facility] [address] [place] [address] Dr. Sung Moore PROF 14(COMP METB)on 022 Albumin [Mass/Vol] 2.4 g/dL Critically low 3.4-5.0 [facility] Comment on above: Performed By: #### L ACT #### [facility] [address] [place] [address] Dr. Sung Moore Albumin/Globulin [Mass ratio] 0.5 {ratio} Normal [facility] Comment on above: Performed By: #### L ACT #### [facility] [address] [place] [address] Dr. Sung Moore ALP [Catalytic activity/Vol] 73 U/L Normal 46-116 [facility] Comment on above: Performed By: #### L ACT #### [facility] [address] [place] [address] Dr. Sung Moore ALT [Catalytic activity/Vol] 22 U/L Normal 14-59 [facility] Comment on above: Performed By: #### L ACT #### [facility] [address] [place] [address] Dr. Sung Moore Anion gap [Moles/Vol] 12.9 mmol/L Normal [facility] Comment on above: Performed By: #### L ACT #### [facility] [address] [place] [address] Dr. Sung Moore AST [Catalytic activity/Vol] 21 U/L Normal 15-37 [facility] Comment on above: Performed By: #### L ACT #### [facility] [address] [place] [address] Dr. Sung Moore Bilirubin [Mass/Vol] 0.1 mg/dL Critically low 0.2-1.0 [facility] Comment on above: Performed By: #### L ACT #### [facility] [address] [place] [address] Dr. Sung Moore Calcium [Mass/Vol] 8.6 mg/dL Normal 8.5-10.1 [facility] Comment on above: Performed By: #### L ACT #### [facility] [address] [place] [address] Dr. Sung Moore Chloride [Moles/Vol] 108 mmol/L Critically high 98-107 [facility] Comment on above: Performed By: #### L ACT #### [facility] [address] [address] [address] Sung Moore CO2 [Moles/Vol] 22.0 mmol/L Normal 21.0-32.0 [facility] Comment on above: Performed By: #### L ACT #### [facility] [address] [address] [address] Sung Moore Creatinine [Mass/Vol] 0.79 mg/dL Normal 0.55-1.02 [facility] Comment on above: Performed By: #### L ACT #### [facility] [address] [place] [address] Dr. Sung Moore EGFR-AF GABONESE >60 Normal >=60 [facility] Comment on above: Performed By: #### L ACT #### [facility] [address] [place] [address] Dr. Sung Moore EGFR-NON AF GABONESE >60 Normal >=60 [facility] Comment on above: Performed By: #### L ACT #### [facility] [address] [address] [address] Sung Moore Globulin (S) [Mass/Vol] 4.5 g/dL Normal [facility] Comment on above: Performed By: #### L ACT #### [facility] [address] [place] [address] Dr. Sung Moore Glucose [Mass/Vol] 149 mg/dL Critically high 74-106 [facility] Comment on above: Performed By: #### L ACT #### [facility] [address] [address] [address] Sung Moore Potassium [Moles/Vol] 2.8 mmol/L Critically low 3.5-5.1 [facility] Comment on above: Performed By: #### L ACT #### [facility] [address] [address] [address] Sung Moore Protein [Mass/Vol] 6.9 g/dL Normal 6.4-8.2 [facility] Comment on above: Performed By: #### L ACT #### [facility] [address] [place] [address] Dr. Sung Moore Sodium [Moles/Vol] 140 mmol/L Normal 136-145 [facility] Comment on above: Performed By: #### L ACT #### [facility] [address] [place] [address] Dr. Sung Moore Urea nitrogen [Mass/Vol] 17.0 mg/dL Normal 7.0-18.0 [facility] Comment on above: Performed By: #### L ACT #### [facility] [address] [place] [address] Dr. Sung Moore Urea nitrogen/Creatinine [Mass ratio] 21.5 mg/mg Normal [facility] Comment on above: Performed By: #### L ACT #### [facility] [address] [place] [address] Dr. Sung Moore BNPon 11-11-2021 Natriuretic peptide B (Bld) [Mass/Vol] 882.0 pg/mL Normal <=1,800.0 [facility] Comment on above: Performed By: #### C RP, CMP #### [facility] [address] [place] [address] Dr. Sung Moore CBC AUTO DIFFon 11-11-2021 BASO # 0.0 103/ul Normal 0.0-0.1 [facility] Comment on above: Performed By: #### C RP, CMP #### [facility] [address] [place] [address] Dr. Sung Moore Basophils/100 WBC (Bld) 0.0 % Critically low 0.2-2.0 [facility] Comment on above: Performed By: #### C RP, CMP #### [facility] [address] [place] [address] Dr. Sung Moore EO # 0.0 103/ul Normal 0.0-0.7 [facility] Comment on above: Performed By: #### C RP, CMP #### [facility] [address] [place] [address] Dr. Sung Moore Eosinophils/100 WBC (Bld) 0.0 % Critically low 0.9-7.0 [facility] Comment on above: Performed By: #### C RP, CMP #### [facility] [address] [place] [address] Dr. Sung Moore Erythrocyte distribution width (RBC) [Ratio] 15.1 % Critically high 11.0-15.0 [facility] Comment on above: Performed By: #### C RP, CMP #### [facility] [address] [place] [address] Dr. Sung Moore Hematocrit (Bld) [Volume fraction] 28.5 % Critically low 36.0-48.0 [facility] Comment on above: Performed By: #### C RP, CMP #### [facility] [address] [place] [address] Dr. Sung Moore Hemoglobin (Bld) [Mass/Vol] 8.9 g/dL Critically low 12.0-16.0 [facility] Comment on above: Performed By: #### C RP, CMP #### [facility] [address] [place] [address] Dr. Sung Moore IG # 0.02 10e3/ul Normal 0.00-0.03 [facility] Comment on above: Performed By: #### C RP, CMP #### [facility] [address] [place] [address] Dr. Sung Moore IG % 0.5 % Normal 0.0-0.5 [facility] Comment on above: Performed By: #### C RP, CMP #### [facility] [address] [place] [address] Dr. Sung Moore LYMPH # 0.9 103/ul Critically low 1.2-3.8 [facility] Comment on above: Performed By: #### C RP, CMP #### [facility] [address] [place] [address] Dr. Sung Moore Lymphocytes/100 WBC (Bld) 23.8 % Normal 20.5-60.0 [facility] Comment on above: Performed By: #### C RP, CMP #### [facility] [address] [place] [address] Dr. Sung Moore MANUAL DIFF REQ NO Normal [facility] Comment on above: Performed By: #### C RP, CMP #### [facility] [address] [place] [address] Dr. Sung Moore MCH (RBC) [Entitic mass] 27.4 pg Normal 26.7-34.0 [facility] Comment on above: Performed By: #### C RP, CMP #### [facility] [address] [place] [address] Dr. Sung Moore MCHC (RBC) [Mass/Vol] 31.2 g/dL Normal 29.9-35.2 [facility] Comment on above: Performed By: #### C RP, CMP #### [facility] [address] [place] [address] Dr. Sung Moore MCV (RBC) [Entitic vol] 87.7 fL Normal 81.0-99.0 [facility] Comment on above: Performed By: #### C RP, CMP #### [facility] [address] [place] [address] Dr. Sung Moore MONO # 0.1 103/ul Critically low 0.3-0.8 [facility] Comment on above: Performed By: #### C RP, CMP #### [facility] [address] [place] [address] Dr. Sung Moore Monocytes/100 WBC (Bld) 2.1 % Normal 1.7-12.0 [facility] Comment on above: Performed By: #### C RP, CMP #### [facility] [address] [place] [address] Dr. Sung Moore NEUT # 2.8 103/ul Normal 1.4-6.5 [facility] Comment on above: Performed By: #### C RP, CMP #### [facility] [address] [place] [address] Dr. Sung Moore Neutrophils/100 WBC (Bld) 73.6 % Normal 43.0-75.0 [facility] Comment on above: Performed By: #### C RP, CMP #### [facility] [address] [address] [address] Sung Moore Platelet mean volume (Bld) [Entitic vol] 9.4 fL Critically low 9.5-13.5 [facility] Comment on above: Performed By: #### C RP, CMP #### [facility] [address] [address] [address] Sung Moore PLT 216 103/ul Normal 150-450 [facility] Comment on above: Performed By: #### C RP, CMP #### [facility] [address] [place] [address] Dr. Sung Moore RBC 3.25 106/ul Critically low 4.20-5.40 [facility] Comment on above: Performed By: #### C RP, CMP #### [facility] [address] [place] [address] Dr. Sung Moore WBC 3.7 103/ul Critically low 4.0-11.0 [facility] Comment on above: Performed By: #### C RP, CMP #### [facility] [address] [place] [address] Dr. Sung Moore PROF 14(COMP METB)on 022 Albumin [Mass/Vol] 2.4 g/dL Critically low 3.4-5.0 [facility] Comment on above: Performed By: #### C MP, BNP #### [facility] [address] [place] [address] Dr. Sung Moore Albumin/Globulin [Mass ratio] 0.5 {ratio} Normal [facility] Comment on above: Performed By: #### C MP, BNP #### [facility] [address] [place] [address] Dr. Sung Moore ALP [Catalytic activity/Vol] 87 U/L Normal 46-116 [facility] Comment on above: Performed By: #### C MP, BNP #### [facility] [address] [place] [address] Dr. Sung Moore ALT [Catalytic activity/Vol] 19 U/L Normal 14-59 [facility] Comment on above: Performed By: #### C MP, BNP #### [facility] [address] [address] [address] Sung Moore Anion gap [Moles/Vol] 9.2 mmol/L Normal [facility] Comment on above: Performed By: #### C MP, BNP #### [facility] [address] [address] [address] Sung Moore AST [Catalytic activity/Vol] 20 U/L Normal 15-37 [facility] Comment on above: Performed By: #### C MP, BNP #### [facility] [address] [address] [address] Sung Moore Bilirubin [Mass/Vol] 0.2 mg/dL Normal 0.2-1.0 [facility] Comment on above: Performed By: #### C MP, BNP #### [facility] [address] [place] [address] Dr. Sung Moore Calcium [Mass/Vol] 8.5 mg/dL Normal 8.5-10.1 [facility] Comment on above: Performed By: #### C MP, BNP #### [facility] [address] [place] [address] Dr. Sung Moore Chloride [Moles/Vol] 106 mmol/L Normal 98-107 [facility] Comment on above: Performed By: #### C MP, BNP #### [facility] [address] [place] [address] Dr. Sung Moore CO2 [Moles/Vol] 23.1 mmol/L Normal 21.0-32.0 [facility] Comment on above: Performed By: #### C MP, BNP #### [facility] [address] [place] [address] Dr. Sung Moore Creatinine [Mass/Vol] 0.88 mg/dL Normal 0.55-1.02 [facility] Comment on above: Performed By: #### C MP, BNP #### [facility] [address] [place] [address] Dr. Sung Moore EGFR-AF GABONESE >60 Normal >=60 [facility] Comment on above: Performed By: #### C MP, BNP #### [facility] [address] [address] [address] Sung Moore EGFR-NON AF GABONESE >60 Normal >=60 [facility] Comment on above: Performed By: #### C MP, BNP #### [facility] [address] [address] [address] Sung Moore Globulin (S) [Mass/Vol] 4.8 g/dL Normal [facility] Comment on above: Performed By: #### C MP, BNP #### [facility] [address] [place] [address] Dr. Sung Moore Glucose [Mass/Vol] 153 mg/dL Critically high 74-106 [facility] [place] Comment on above: Performed By: #### C MP, BNP #### [facility] [address] [place] [address] Dr. Sung Moore Potassium [Moles/Vol] 3.3 mmol/L Critically low 3.5-5.1 [facility] Comment on above: Performed By: #### C MP, BNP #### [facility] [address] [place] [address] Dr. Sung Moore Protein [Mass/Vol] 7.2 g/dL Normal 6.4-8.2 [facility] Comment on above: Performed By: #### C MP, BNP #### [facility] [address] [place] [address] Dr. Sung Moore Sodium [Moles/Vol] 135 mmol/L Critically low 136-145 [facility] Comment on above: Performed By: #### C MP, BNP #### [facility] [address] [place] [address] Dr. Sung Moore Urea nitrogen [Mass/Vol] 16.0 mg/dL Normal 7.0-18.0 [facility] Comment on above: Performed By: #### C MP, BNP #### [facility] [address] [place] [address] Dr. Sung Moore Urea nitrogen/Creatinine [Mass ratio] 18.2 mg/mg Normal [facility] Comment on above: Performed By: #### C MP, BNP #### [facility] [address] [place] [address] Dr. Sung Moore CBC AUTO DIFFon 11-10-2021 BASO # 0.0 103/ul Normal 0.0-0.1 [facility] Comment on above: Performed By: #### C RP, CMP #### [facility] [address] [place] [address] Dr. Sung Moore Basophils/100 WBC (Bld) 0.2 % Normal 0.2-2.0 [facility] Comment on above: Performed By: #### C RP, CMP #### [facility] [address] [place] [address] Dr. Sung Moore EO # 0.0 103/ul Normal 0.0-0.7 [facility] Comment on above: Performed By: #### C RP, CMP #### [facility] [address] [place] [address] Dr. Sung Moore Eosinophils/100 WBC (Bld) 0.2 % Critically low 0.9-7.0 [facility] Comment on above: Performed By: #### C RP, CMP #### [facility] [address] [place] [address] Dr. Sung Moore Erythrocyte distribution width (RBC) [Ratio] 15.2 % Critically high 11.0-15.0 [facility] Comment on above: Performed By: #### C RP, CMP #### [facility] [address] [place] [address] Dr. Sung Moore Hematocrit (Bld) [Volume fraction] 30.0 % Critically low 36.0-48.0 [facility] Comment on above: Performed By: #### C RP, CMP #### [facility] [address] [place] [address] Dr. Sung Moore Hemoglobin (Bld) [Mass/Vol] 9.7 g/dL Critically low 12.0-16.0 [facility] Comment on above: Performed By: #### C RP, CMP #### [facility] [address] [place] [address] Dr. Sung Moore IG # 0.03 10e3/ul Normal 0.00-0.03 [facility] Comment on above: Performed By: #### C RP, CMP #### [facility] [address] [place] [address] Dr. Sung Moore IG % 0.5 % Normal 0.0-0.5 [facility] Comment on above: Performed By: #### C RP, CMP #### [facility] [address] [place] [address] Dr. Sung Moore LYMPH # 1.3 103/ul Normal 1.2-3.8 [facility] Comment on above: Performed By: #### C RP, CMP #### [facility] [address] [place] [address] Dr. Sung Moore Lymphocytes/100 WBC (Bld) 20.3 % Critically low 20.5-60.0 [facility] Comment on above: Performed By: #### C RP, CMP #### [facility] [address] [place] [address] Dr. Sung Moore MANUAL DIFF REQ NO Normal [facility] Comment on above: Performed By: #### C RP, CMP #### [facility] [address] [place] [address] Dr. Sung Moore MCH (RBC) [Entitic mass] 27.8 pg Normal 26.7-34.0 [facility] Comment on above: Performed By: #### C RP, CMP #### [facility] [address] [place] [address] Dr. Sung Moore MCHC (RBC) [Mass/Vol] 32.3 g/dL Normal 29.9-35.2 [facility] Comment on above: Performed By: #### C RP, CMP #### [facility] [address] [place] [address] Dr. Sung Moore MCV (RBC) [Entitic vol] 86.0 fL Normal 81.0-99.0 [facility] Comment on above: Performed By: #### C RP, CMP #### [facility] [address] [place] [address] Dr. Sung Moore MONO # 0.6 103/ul Normal 0.3-0.8 [facility] Comment on above: Performed By: #### C RP, CMP #### [facility] [address] [place] [address] Dr. Sung Moore Monocytes/100 WBC (Bld) 8.8 % Normal 1.7-12.0 [facility] Comment on above: Performed By: #### C RP, CMP #### [facility] [address] [place] [address] Dr. Sung Moore NEUT # 4.6 103/ul Normal 1.4-6.5 [facility] Comment on above: Performed By: #### C RP, CMP #### [facility] [address] [place] [address] Dr. Sung Moore Neutrophils/100 WBC (Bld) 70.0 % Normal 43.0-75.0 [facility] Comment on above: Performed By: #### C RP, CMP #### [facility] [address] [place] [address] Dr. Sung Moore Platelet mean volume (Bld) [Entitic vol] 9.1 fL Critically low 9.5-13.5 [facility] Comment on above: Performed By: #### C RP, CMP #### [facility] [address] [place] [address] Dr. Sung Moore PLT 230 103/ul Normal 150-450 [facility] Comment on above: Performed By: #### C RP, CMP #### [facility] [address] [place] [address] Dr. Sung Moore RBC 3.49 106/ul Critically low 4.20-5.40 [facility] Comment on above: Performed By: #### C RP, CMP #### [facility] [address] [place] [address] Dr. Sung Moore WBC 6.6 103/ul Normal 4.0-11.0 [facility] Comment on above: Performed By: #### C RP, CMP #### [facility] [address] [place] [address] ABD/PELVIS WO CONon [...] by: DION SNOWDEN Date: 2021-11-10 15:46 Normal [facility] CT STROKE HEAD WOon 11-11-19 CT STROKE HEAD WO NONCONTRAST HEAD CT [...] occipital lobe likely related to remote left LAST GREASER ischemia. Hypodensity in the posterior limb of the left internal capsule measuring 8 x 6 mm compatible with prior lacunar infarct. Dense carotid calcifications. IMPRESSION: No acute intracranial hemorrhage. Chronic ischemic changes as documented. Electronically authenticated by: KAYLEY PHELAN Date: 2021-11-10 15:47 Normal [facility] CULTURE BLOODon 11-10-2021 Microscopic examination of blood, culture Culture Observations: NO GROWTH AT 5 DAYS. Isolate 1 BC_BA_NA Normal [facility] Comment on above: Performed By: #### C RP, CMP #### [facility] [address] [address] [address] Sung Moore Microscopic examination of blood, culture Culture Observations: NO GROWTH AT 5 DAYS. Isolate 1 BC_BA_NA Normal [facility] Comment on above: Performed By: #### C RP, CMP #### [facility] [address] [address] [address] Sung Moore Covid-19 PCR ([facility])on 10-17 SARS-CoV-2 (COVID-19) RNA ROMY+probe Ql (Unsp spec) Not detected Normal NOT DETECTED [facility] Comment on above: Result Comment: When [...] for this test is supported by the Residential [employer]ist of Health and Human Service's declaration that [...] Performed By: #### C MP, BNP #### [facility] [address] [place] [address] Dr. Sung Moore ER URINE PROFILEon 2 Bilirubin Ql (U) Negative Normal NEGATIVE [facility] Comment on above: Performed By: #### C RP, CMP #### [facility] [address] [place] [address] Dr. Sung Moore Clarity (U) CLEAR Normal CLEAR [facility] Comment on above: Performed By: #### C RP, CMP #### [facility] [address] [place] [address] Dr. Sung Moore Color (U) LT. YELLOW Normal YELLOW [facility] Comment on above: Performed By: #### C RP, CMP #### [facility] [address] [place] [address] Dr. Sung Moore ERUAHD A micrscopic examina tion will be performed if indicated. Normal [facility] Comment on above: Performed By: #### C RP, CMP #### [facility] [address] [place] [address] Dr. Sung Moore Glucose Ql (U) Negative Normal NEGATIVE [facility] Comment on above: Performed By: #### C RP, CMP #### [facility] [address] [place] [address] Dr. Sung Moore Hemoglobin Ql (U) Negative Normal NEGATIVE [facility] Comment on above: Performed By: #### C RP, CMP #### [facility] [address] [place] [address] Dr. Sung Moore Ketones Ql (U) Negative Normal NEGATIVE [facility] Comment on above: Performed By: #### C RP, CMP #### [facility] [address] [place] [address] Dr. Sung Moore LEUKOCYTES LARGE Abnormal NEGATIVE [facility] Comment on above: Performed By: #### C RP, CMP #### [facility] [address] [place] [address] Dr. Sung Moore Nitrite Ql (U) Positive Abnormal NEGATIVE [facility] Comment on above: Performed By: #### C RP, CMP #### [facility] [address] [place] [address] Dr. Sung Moore pH (U) 6.0 [pH] Normal 5-9 [facility] Comment on above: Performed By: #### C RP, CMP #### [facility] [address] [place] [address] Dr. Sung Moore SPEC GRAVITY 1.010 Normal 1.005-<=1. 025 [facility] Comment on above: Performed By: #### C RP, CMP #### [facility] [address] [place] [address] Dr. Sung Moore UA PROTEIN Negative Normal NEGATIVE/ TRACE [facility] Comment on above: Performed By: #### C RP, CMP #### [facility] [address] [place] [address] Dr. Sung Moore UR MICRO IND INDICATED Normal [facility] Comment on above: Performed By: #### C RP, CMP #### [facility] [address] [place] [address] Dr. Sung Moore Urobilinogen Qn (U) 0.2 {David'U}/dL Normal 0.2 - 1. 0 [facility] Comment on above: Performed By: #### C RP, CMP #### [facility] [address] [place] [address] Dr. Sung Moore LACTATE/LACTIC ACIDon 2021 Lactate [Moles/Vol] 1.1 mmol/L Normal 0.4-1.9 [facility] Comment on above: Performed By: #### C RP, CMP #### [facility] [address] [place] [address] Dr. Sung Moore Lactate [Moles/Vol] 1.9 mmol/L Normal 0.4-1.9 [facility] Comment on above: Performed By: #### C MP, BNP #### [facility] [address] [place] [address] Dr. Sung Moore PROF 14(COMP METB)on 022 Albumin [Mass/Vol] 2.9 g/dL Critically low 3.4-5.0 [facility] Comment on above: Performed By: #### L ACT #### [facility] [address] [place] [address] Dr. Sung Moore Albumin/Globulin [Mass ratio] 0.6 {ratio} Normal [facility] Comment on above: Performed By: #### L ACT #### [facility] [address] [place] [address] Dr. Sung Moore ALP [Catalytic activity/Vol] 101 U/L Normal 46-116 [facility] Comment on above: Performed By: #### L ACT #### [facility] [address] [place] [address] Dr. Sung Moore ALT [Catalytic activity/Vol] 21 U/L Normal 14-59 [facility] Comment on above: Performed By: #### L ACT #### [facility] [address] [place] [address] Dr. Sung Moore Anion gap [Moles/Vol] 14.6 mmol/L Normal [facility] Comment on above: Performed By: #### L ACT #### [facility] [address] [place] [address] Dr. Sung Moore AST [Catalytic activity/Vol] 19 U/L Normal 15-37 [facility] Comment on above: Performed By: #### L ACT #### [facility] [address] [place] [address] Dr. Sung Moore Bilirubin [Mass/Vol] 0.7 mg/dL Normal 0.2-1.0 [facility] Comment on above: Performed By: #### L ACT #### [facility] [address] [place] [address] Dr. Sung Moore Calcium [Mass/Vol] 8.4 mg/dL Critically low 8.5-10.1 [facility] Comment on above: Performed By: #### L ACT #### [facility] [address] [place] [address] Dr. Sung Moore Chloride [Moles/Vol] 94 mmol/L Critically low 98-107 [facility] Comment on above: Performed By: #### L ACT #### [facility] [address] [address] [address] Sung Moore CO2 [Moles/Vol] 22.9 mmol/L Normal 21.0-32.0 [facility] Comment on above: Performed By: #### L ACT #### [facility] [address] [address] [address] Sung Moore Creatinine [Mass/Vol] 1.40 mg/dL Critically high 0.55-1.02 [facility] Comment on above: Performed By: #### L ACT #### [facility] [address] [address] [address] Sung Moore EGFR-AF GABONESE 44 mL/min/1.73m2 Critically low >=60 [facility] Comment on above: Performed By: #### L ACT #### [facility] [address] [address] [address] Sung Moore EGFR-NON AF GABONESE 37 mL/min/1.73m2 Critically low >=60 [facility] Comment on above: Performed By: #### L ACT #### [facility] [address] [address] [address] Sung Moore Globulin (S) [Mass/Vol] 4.9 g/dL Normal [facility] Comment on above: Performed By: #### L ACT #### [facility] [address] [address] [address] Sung Moore Glucose [Mass/Vol] 150 mg/dL Critically high 74-106 [facility] Comment on above: Performed By: #### L ACT #### [facility] [address] [address] [address] Sung Moore Potassium [Moles/Vol] 3.5 mmol/L Normal 3.5-5.1 [facility] Comment on above: Performed By: #### L ACT #### [facility] [address] [address] [address] Sung Moore Protein [Mass/Vol] 7.8 g/dL Normal 6.4-8.2 [facility] Comment on above: Performed By: #### L ACT #### [facility] [address] [place] [address] Dr. Sung Moore Sodium [Moles/Vol] 128 mmol/L Critically low 136-145 [facility] Comment on above: Performed By: #### L ACT #### [facility] [address] [place] [address] Dr. Sung Moore Urea nitrogen [Mass/Vol] 21.0 mg/dL Critically high 7.0-18.0 [facility] Comment on above: Performed By: #### L ACT #### [facility] [address] [place] [address] Dr. Sung Moore Urea nitrogen/Creatinine [Mass ratio] 15.0 mg/mg Normal [facility] Comment on above: Performed By: #### L ACT #### [facility] [address] [place] [address] Dr. Sung Moore PROTIMEon 11-10-2021 INR Coag (PPP) [Relative time] 1.16 {INR} Normal [facility] Comment on above: Performed By: #### C RP, CMP #### [facility] [address] [place] [address] Dr. Sung Moore INR GUIDELINES SEE BELOW Normal [facility] Comment on above: Result Comment: JOHN RED INR: 2.0 - 3.0 CONDITIONS NOT LISTED BELOW 2.5 - 3.5 FOR PROSTHETIC HEART VALVE REPLACEMENT 2.5 - 3.5 RECURRENT THROMBOSIS Performed By: #### C RP, CMP #### [facility] [address] [place] [address] Dr. Sung Moore PT Coag (PPP) [Time] 12.4 s Critically high 9.0-11.6 [facility] Comment on above: Performed By: #### C RP, CMP #### [facility] [address] [place] [address] Dr. Sung Moore PTTon 11-10-2021 aPTT Coag (Bld) [Time] 32.9 s Normal 22.3-36.2 [facility] Comment on above: Performed By: #### C RP, CMP #### [facility] [address] [place] [address] Dr. Sung Moore TROPONIN, HIGH SENSITIVITYon 11-10-2021 HSTROP 10.1 pg/mL Normal 4.0-51.3 [facility] Comment on above: Result Comment: CUT- OFF POINTS HAVE BEEN ESTABLISHED BASED ON THE FOURTH UNIVERSAL DEFINITIONS OF MYOCARDIAL INFARCTION. THE UPPER REFERENCE LIMIT (URL) OF TROPONIN, DEFINED THE 99TH PERCENTILE OF cTnI DISTRIBUTION IN A REFERENCE POPULATION, HAS BEEN CONFIRMED THE DECISION THRESHOLD FOR [place] DIAGNOSIS. Performed By: #### L ACT #### [facility] [address] [place] [address] Dr. Sung Moore TSHon 11-10-2021 TSH 1.207 uIU/mL Normal 0.358-3.74 0 [facility] Comment on above: Performed By: #### C MP, BNP #### [facility] [address] [place] [address] Dr. Sung Moore TSH RANGE SEE BELOW Normal [facility] Comment on above: Result Comment: <0.3 4 UIU/ml HYPERTHYROID 0.34-5.60 UIU/ml EUTHYROID >5.60 UIU/ml HYPOTHYROID Performed By: #### C MP, BNP #### [facility] [address] [place] [address] Dr. Sung Moore URINE MICROSCOPIC ONLYon BACTERIA MODERATE Abnormal NONE SEEN [facility] Comment on above: Performed By: #### C RP, CMP #### [facility] [address] [place] [address] Dr. Sung Moore Bacteria identified Cx Nom (U) INDICATED Normal [facility] Comment on above: Performed By: #### C RP, CMP #### [facility] [address] [place] [address] Dr. Sung Moore CAST NONE SEEN Normal NONE SEEN [facility] Comment on above: Performed By: #### C RP, CMP #### [facility] [address] [place] [address] Dr. Sung Moore Crystals LM Nom (Urine sed) NONE SEEN Normal NONE SEEN [facility] Comment on above: Performed By: #### C RP, CMP #### [facility] [address] [address] [address] Sung Moore Epithelial cells LM Ql (Urine sed) RARE Normal NONE SEEN /RARE [facility] Comment on above: Performed By: #### C RP, CMP #### [facility] [address] [address] [address] Sung Moore MUCOUS NONE SEEN Normal NONE SEEN [facility] Comment on above: Performed By: #### C RP, CMP #### [facility] [address] [address] [address] Sung Moore RBC NONE SEEN Abnormal 0-2 [facility] Comment on above: Performed By: #### C RP, CMP #### [facility] [address] [address] [address] Sung Moore WBC 50-75 Abnormal NONE SEEN [facility] Comment on above: Performed By: #### C RP, CMP #### [facility] [address] [place] [address] Dr. Sung Moore XR CHEST 1 Von [...] DION SNOWDEN Date: 2021-11-10 15:26 Normal [facility] Glucose Glucometer (BldC) [M ass/Vol]Ordered By: Bonnie Hendricks on 10-19-2021 Glucose [Mass/Vol] 127 mg/dL [facility] Comment on above: Random Glucose Refer ence Range is dependent on time and content of last meal. Glucose of more than 200 mg/dL in a nonstressed, ambulatory subject supports the diagnosis of Diabetes Mellitus. Activated partial thrombopla stin time (aPTT) in platelet poor plasma by coagulation aOrdered By: Bonnie Hendricks on 10-12-2021 aPTT Coag (PPP) [Time] 31.5 s 25.1-36.5 [facility] Basophils Auto (Bld) [#/Vol] Ordered By: Bonnie Hendricks on 10-12-2021 Basophils (Bld) [#/Vol] 0.0 10*3/uL 0.0-0.2 [facility] Basophils/100 WBC Auto (Bld) Ordered By: Bonnie Hendricks on 10-12-2021 Basophils/100 WBC (Bld) 0.3 % . [facility] Blood hemoglobin measurement (mass/volume)Ordered By: Bonnie Hendricks on 10-12-2021 Hemoglobin (Bld) [Mass/Vol] 10.4 g/dL 11.8-15.4 [facility] Blood leukocytes automated c ount (number/volume)Ordered By: Bonine Hendricks on 10-12-2021 WBC (Bld) [#/Vol] 6.3 10*3/uL 4.5-11.0 [facility] Body fluid albumin measureme nt (mass/volume)Ordered By: Bonnie Hendricks on 10-12-2021 Albumin (Body fld) [Mass/Vol] 3.4 g/dL 3.2-5.5 [facility] Creatinine and Glomerular fi ltration rate.predicted panel (S/P/Bld)Ordered By: Bonnie Hendricks on 10-12-2021 Creatinine [Mass/Vol] 0.81 mg/dL 0.44-1.03 [facility] Eosinophils Auto (Bld) [#/Vo l]Ordered By: Bonnie Hendricks on 10-12-2021 Eosinophils (Bld) [#/Vol] 0.2 10*3/uL 0.0-0.45 [facility] Eosinophils/100 WBC Auto (Bl d)Ordered By: Bonnie Hendricks on 10-12-2021 Eosinophils/100 WBC (Bld) 3.5 % . [facility] Erythrocyte distribution wid th Auto (RBC) [Ratio]Ordered By: Bonnie Hendricks on 10-12-2021 Erythrocyte distribution width (RBC) [Ratio] 16.5 % 11.9-15.3 [facility] Estimated glomerular filtrat ion rate (GFR) non- AmericanOrdered By: Bonnie Hendricks on 10-12-2021 GFR/1.73 sq M.predicted among non-blacks MDRD (S/P/Bld) [Vol rate/Area] > 60 mL/Min [facility] Globulin Calc (S) [Mass/Vol] Ordered By: Bonnie Hendricks on 10-12-2021 Globulin (S) [Mass/Vol] 4.6 g/dL [facility] Hematocrit Auto (Bld) [Volum e fraction]Ordered By: Bonnie Hendricks on 10-12-2021 Hematocrit (Bld) [Volume fraction] 31.6 % 34.0-46.4 [facility] Laboratory - CoagulationOrde red By: Bonnie Hendricks on 10-12-2021 PT Coag (PPP) [Time] 14.0 s High 9.0-12.9 [facility] Laboratory - Hematology and Cell countsOrdered By: Bonnie Hendricks on 10-12-2021 Nucleated RBC/100 WBC (Bld) [Ratio] 0.0 % 0-0.5 [facility] Lactate dehydrogenase measur ement (enzymatic activity/volume)Ordered By: Bonnie Hendricks on 10-12-2021 LDH (Unsp spec) [Catalytic activity/Vol] 133 U/L 45-190 [facility] Lymphocytes Auto (Bld) [#/Vo l]Ordered By: Bonnie Hendricks on 10-12-2021 Lymphocytes (Bld) [#/Vol] 1.4 10*3/uL 1.00-4.8 [facility] Lymphocytes/100 WBC Auto (Bl d)Ordered By: Bonnie Hendricks on 10-12-2021 Lymphocytes/100 WBC (Bld) 22.9 % . [facility] MCH Auto (RBC) [Entitic mass ]Ordered By: Bonnie Hendricks on 10-12-2021 MCH (RBC) [Entitic mass] 28.2 pg 24.7-34.3 [facility] MCHC Auto (RBC) [Mass/Vol]Or dered By: Bonnie Hendricks on 10-12-2021 MCHC (RBC) [Mass/Vol] 32.8 g/dL 32.0-35.0 [facility] MCV Auto (RBC) [Entitic vol] Ordered By: Bonnie Hendricks on 10-12-2021 MCV (RBC) [Entitic vol] 85.8 fL 80-100 [facility] Monocytes Auto (Bld) [#/Vol] Ordered By: Bonnie Hendricks on 10-12-2021 Monocytes (Bld) [#/Vol] 0.4 10*3/uL 0.0-0.8 [facility] Monocytes/100 WBC Auto (Bld) Ordered By: Bonnie Hendricks on 10-12-2021 Monocytes/100 WBC (Bld) 6.3 % . [facility] Neutrophils Auto (Bld) [#/Vo l]Ordered By: Bonnie Hendricks on 10-12-2021 Neutrophils (Bld) [#/Vol] 4.2 10*3/uL 1.8-7.7 [facility] Neutrophils/100 WBC Auto (Bl d)Ordered By: Bonnie Hendricks on 10-12-2021 Neutrophils/100 WBC (Bld) 67.0 % . [facility] No Panel InformationOrdered By: Bonnie Hendricks on 10-12-2021 Estimated GFR () > 60 mL/Min [facility] Comment on above: GFR estimated refere nce range: According to KDOQI guidelines, <60 ml/min/1.73m2 is sufficient to diagnose a patient with chronic kidney disease. Pharmacy Creatinine Clearance (Chem N/A [facility] Platelet mean volume Auto (B ld) [Entitic vol]Ordered By: Bonnie Hendricks on 10-12-2021 Platelet mean volume (Bld) [Entitic vol] 7.1 fL 6.3-10.7 [facility] Platelet poor plasma interna tional normalized ratio (INR) by coagulation assay (relatOrdered By: Bonnie Hendricks on 10-12-2021 INR Coag (PPP) [Relative time] 1.2 {INR} [facility] Comment on above: INR Therapeutic Rang [...] 10-12-2021 Platelets (Bld) [#/Vol] 370 10*3/uL 150-450 [facility] Protein [Mass/volume] in Ser um or PlasmaOrdered By: Bonnie Hendricks on 10-12-2021 Protein [Mass/Vol] 8.0 g/dL 6.1-7.9 [facility] RBC Auto (Bld) [#/Vol]Ordere d By: Bonnie Hendricks on 10-12-2021 RBC (Bld) [#/Vol] 3.68 10*6/uL 3.60-5.00 [facility] Serum or plasma alanine de guzman otransferase measurement without P-5'-P (enzymatic activiOrdered By: Bonnie Hendricks on 10-12-2021 ALT No additional P-5'-P [Catalytic activity/Vol] 13 U/L 10-60 [facility] Serum or plasma albumin/glob ulin mass ratioOrdered By: Bonnie Hendricks on 10-12-2021 Albumin/Globulin [Mass ratio] 0.7 {ratio} [facility] Serum or plasma alkaline david sphatase measurement (enzymatic activity/volume)Ordered By: Bonnie Hendricks on 10-12-2021 ALP [Catalytic activity/Vol] 94 U/L 32-92 [facility] Serum or plasma aspartate am inotransferase measurement (enzymatic activity/volume)Ordered By: Bonnie Hendricks on 10-12-2021 AST [Catalytic activity/Vol] 18 U/L 10-42 [facility] Serum or plasma calcium elias urement (mass/volume)Ordered By: Bonnie Hendricks on 10-12-2021 Calcium [Mass/Vol] 9.6 mg/dL 8.2-10.2 [facility] Serum or plasma cancer antig en 125 (CA-125) measurement (units/volume)Ordered By: Bonnie Hendricks on 10-12-2021 Cancer Ag 125 Qn 23.7 [arb'U]/mL 0.0-38.1 [facility] Comment on above: [employer] El ectrochemiluminescence Immunoassay (ECLIA) Values obtained with different assay methods or kits cannot be used interchangeably. Results cannot be interpreted as absolute evidence of the presence or absence of malignant disease. Performed at: [facility] [employer] [id number] Marketing Recruiter: Adrian Coello PhD, Phone: [phone] Serum or plasma chloride liset surement (moles/volume)Ordered By: Bonnie Hendricks on 10-12-2021 Chloride [Moles/Vol] 101 mmol/L 95-114 [facility] Serum or plasma glucose elias urement (mass/volume)Ordered By: Bonnie Hendricks on 10-12-2021 Glucose [Mass/Vol] 126 mg/dL 70-100 [facility] Comment on above: ADA recommended refe rence range Random Glucose Reference Range is dependent on time and content of last meal. Glucose of more than 200 mg/dL in a nonstressed, ambulatory subject supports the diagnosis of Diabetes Mellitus. Serum or plasma potassium me asurement (moles/volume)Ordered By: Bonnie Hendricks on 10-12-2021 Potassium [Moles/Vol] 4.3 mmol/L 3.5-5.1 [facility] Serum or plasma sodium measu rement (moles/volume)Ordered By: Bonnie Hendricks on 10-12-2021 Sodium [Moles/Vol] 136 mmol/L 136-146 [facility] Serum or plasma total biliru bin measurement (mass/volume)Ordered By: Bonnie Hendricks on 10-12-2021 Bilirubin [Mass/Vol] 0.9 mg/dL 0.3-1.2 [facility] Serum or plasma total carbon dioxide measurement (moles/volume)Ordered By: Bonnie Hendricks on 10-12-2021 CO2 [Moles/Vol] 24.7 mmol/L 22.0-30.0 [facility] Serum or plasma urea nitroge n measurement (mass/volume)Ordered By: Bonnie Hendricks on 10-12-2021 Urea nitrogen [Mass/Vol] 10 mg/dL 03-10 [facility] C Urineon 08-26-2021 Bacteria identified Cx [...] Locations R1: This test was performed at: [facility], [address] [place] [address], [address] , , [facility] Comment on above: Performed By: #### 2 [id number] ####[place] [address] Coding Summary.on 08-26-2021 Coding Summary. CD:[id number] Gh0bW w+PGhlYWQ+PE5DRAOzH82ipHR loQ7GR7iJZZ1GBDRYXRRBQH8T LZ5daZO3QMoyT3TmipEj BbsgbWGvKN46BMf2AWT4aFkgS MwqoR0amVHqP0p5QrCwAE37sY 61GFcxQTBlGoI1UaXrswtgmDQ y H0gmBuEilVWsZkr+PHRhYmxlI HdpZHRoPScxMDAlJyBzdHlsZT 8gDp8jLPIbHUQljRbpsGUuWcE j f6ftLNWhESzwST5zdWwsG2Yww OF1SDTaa5p4Qs65kFM+PHRkIH H0xRuvUTbsu257QvIdp8tpMPZ 3 pBPgVYudFXU1E34qv3W0IDDtQ YFcPNL0fOG4kR2jeJavrlbuB0 FepIHvVlH6HDB2tCMviX6glHl n dlsuvL3aBzu+P33THX9PJXXYR I2TAlv4H2OmKrridNW+PC90YW VfSW80fWJdyULuh3wykSs3GkQ w VBOrSSY4gIqsIHxmd9UlCIOhD 87xmASmx6P9ZXVpgBqcxEYlEn MgiAX0uB0tMGliwmtjh4ftjta n Mbqiu9okcs33rL87H66yVOejX HLwMUD8VLQiZZSltObhzk2ezE 9wIi8+AHrrk9aax7wibQs0FtO w SKJfbcQxcShoZAA8w3KcLh42F 7OjaZmua2YzHiz3fc46dZXbw0 T7xTT4YTkfJAUxkD3fANfeAiD 6 GCInZqTixW82oDHzDWdiTy2bm PkpeGxdPN1pUCAzesjvEIDkpN 5eRPGicWZqpXwfXV4eVYLgjrj m l554MhHmDLB8YKTppGRgA2Hed H5nDyOtPRVwQONeV7GryTOhZF mxB839FIwbSkY3MDFmzkEnZ9Q s FWIypEhyKzO7f3R9Gs7Xy5Kpu famYDG2AFjhEORrXeHnCgPqDu T3P9TiEza9PDIwcAvjWG8sO4L h SHOwbfhelupfsBD3YODmTTGgk B49xOBbPGchAh3od9D1y277QB BgKJXviS10Kt8dsMxaKGYunZT U rH8crxguk3aeyecfKsYzKVUsJ Ri8SXt1SMZyzConApTpEQA5Pg S5XGT3wLXwyV8edGhtatiejR7 w Oyc+S85frN2jZSM6DAM4sutkD NHsfgHuYK91KF15U8XrGnyrvY FibGU+ISCqczTdaLcwZL9rSvA j t0lih6CrWNqkR2YkPEWlFMmvJ kk0DOOyFAN5mQE6xP6jGKLxZD anb9W0rUV7N0IoziYcfc2cl6u s KUFrMQmyL71utVCih0H0EPBdo JJ9SAVwqFqkLyTafA41Lrp+PG GvjOfnv3OrHquzf0aep5qwvEh 9 QoJuJRXleiPrzGiwYSU3w3AvA p03K56jRGydGDLqTDTyFOLjAB MgfPjvfl2mhT8pDf3+PGNvbCB 3 rIB6iH9zFXPoIzZ3VQsvY109Q cYmcNQmWyxrs1owm7vfaDp5Kp ClDATqwrZutZkgDJB1s4OkAr6 8 T62oBNmvKSDmXUGqFSVvHFBft Zlllk3eaF2pZe5+NN2ls9ycah 93kW01xEE+VYHrTUU9bKuoBEa w BTEliP9tAYpqZoI2GXWnSyYby J80nHKsTPugDd3zbOhgtQszEY 1cZEKkiwwdd312CnSmh2ffJBN w lAWaNBokYFD0D25bf8A0VYOaL WNgMOJ2yOZ1mV6pqIxkqaldfR JxkCuqqqGzsDsmJTlzIJuvG44 6 IHRvcDsnPlBhdGllbnQgTmFtZ Zv6T5NaRjz7HWXhwIjwVW8qwB AsROwxVj6syYtmjMygOW7wZVJ p httio427CaWnu1meRJOhrYKmL QxnNSN9L68xo9N4ZOVxWETqRC F5mVK9gC7zsXvbroavwQDkyIc g vlUsiIirZBkxKXagA357TCRgd QvoCrPngdKcHDFojYB8NA08DD 48dABwt2C1fKE8K7LlJCRublj t nvyeqQE2AISiVUQvcW65Br8tv WoqCg4rMUKjUSN0UQZeyCOjU6 ZgdD6nNhCxGXGlBLEaN7TyjTP t NLomD097GHbbJzE0JVTznpMaA 6UpFATssWoaVoM1d7E4Jo1QS1 X0TB43YJ08pRHaz6N6fQW4I0P h SVGnihbqfsjidKL8HWHyTSAeq G55Ii2ykDotEi7gBQMxXNM0IS PodEWjG4CjeC2xVfZuQKVlWQJ w L4VsmAJhGTpbR817BUnyLfK9V PHblfCtK2ZgVAVvcQasCcD6t1 W5Bx1OMGv2LW83UT47pWIip1A 5 yJW7W0BqXOEcaqmppainmOA3W JGlORPcdM56Vv3ucJwcAq2eHX KtBTP2DTWzzOQuY4WglH1jNqV j SKOoRAKpF4XsaWWnMHdgG338S CiwTsP9WTTwjrXfQ0KsGWKsdN goLrF6x3V7Cz5XEIAqSH68NXR 5 mYG9NH29IO33X2DyIoktcYGtl +PHRhYmxlIHdpZHRoPScxMD OyIjRacOncHE5zXt8rOQBlMRP v hAjhlRLmIkCvc5iuSMMzNZrqV W8pdEgcE4JhqYH4UIKoa7b1Hu 75Z00jJ3TkgRD+FZFowGV6sBF 0 wY7xElWzGwJ9QWdxH777BmZdg KWiMjlih0kym0yfuHr4QnF1SE ElerFtyWcfIPE7c7SnCk26N99 s IHdpZHRoPSIxNSUiIHZhbGlnb f5loL1dDo9+AVPleQJ9yOK6jU 7lGkJtWnG5UWbnP492ObDgkUL v Lvbmu9sqk6zpzWa6DnJnDVBtl bKbiRydXTN0c0IlAt64C7ElaW ujf2GvWua3iq86gHFij7V6zEV 9 Y2TcHLCrjfqlpGOidLdjZY1wW NYetmwxRKDixS6zGLLlE4m6Ta VhZoS7TFwjX5PnleZ7KYJojJC g MSepGRW7J45ex0Q3SKPtXKQbU ZT0lMC7gA0nmZasjxueoVRnbG lminDrkZnxJScdOVrbW182DZX v yOifCHLrxX8pJCMhlUUxgGjfO S0vYTSyeisnKaoFWmiWFTttJP VOBUAIUqE4X4HyAwp5AQCkbOi s ZK7gfUGhGSiiMs6udVwtdKhwQ Y0lWDNtjgeeEPIesO9oPMImgR ZkfCppVZ6zFDRkphypf144PgF x YES5EBOgdKDvN0XhgW6jQmVkL LAtCWKaL8EnvQAuYGakL864UN brUgI8RGDbidLbM9ZlMFEwcTs u BxS4b6N8St2jLv6aZC3fLQZ7O Q78GN56hPCtx4J3kGE9P6GyZN WeruesvwbkfVS0NVAbREWvxT4 7 fZYnMSvfLo6gs4B3m530TXRiD REiiB47Lr6teMkuEEEyhNAMiM 3oowomo1svhcrlZrYzXSHnJWk 0 YEg3UARklXjwZbRpFQJ5DjZ5A JC2sDAecZ0utJdhgxeghK9yUe c+QkTdCRLtufG7T2SlEms9NRU z dUnnAB0xaNDxHRbhWa9bzXwom XsxNS5sHMRgkgdmVMXzvD7kBB PlxYBvaJphTW5aKSKkzxfqc69 0 VmRvSFB2UWPhzURnT3CfuX2nY gIbFJChAVSiZ6GmjSWoQPgmR2 78UNzxLgF9XMAagsZsU2PhVEH s eXahCxZ8l8I7Yp0TCD6kgJS2D 7CwZyc2KZJlxXlsUF7ecZUpXN neZl1ezHgzjMlrLW9dDOFlnan w TRApgW6iWARjkRHwmLsnQG6zR QBpaikmz917WzGxOQB2TJFuvK MpZ0JutT3aQsFiPDKnJSJuR5W l vWRmQIlzX519ULxuZaX9BDMvd rYiR9VqFKMgoHzjLrY6e9X5Nz 7TYRCcIRVdnOImRfB4Q8UhDqd v dHI+YR09JKDxXE98tDCfaNJnt 3hjvCh8UbYaYIZsRCX2rAueWX vek2VaVOWqK63ymLQpl4X3WWW v gIqgjNCgBsThrZM6yM6xOLbqt qjwh3iyohfcMqzdn9oelj22iM 01T11rUVhwBDHsFBXiUDWbBZP h nGkxui4dmV3iTp1+BMKpvXE8r MU2hA2qWnLwFtN4FXswD908Em AajZTiSujxz7fqr7rdwRc5DyR w ZDPzutTztYbhZOV8z7OyXb34J 29sIHdpZHRoPSIyMCUiIHZhbG vnoh3aoE4mPv6+PP2dk2ufhm4 1 oA10rFM+DMFvCSE8pIboDNddW NStdA2nQHsmDmF3AEXqLqKnbF 82eOMfYKkdTe5ftObulQosDU2 w TNRpmzcfn764XrCak1giPPOce OQgCRegDEZ0R61oo1S7GUEmGA TbRLU0zIW5rC9ejBtcjzzwiVB m gDeyxxBmiChtRZwaMNohY418K JZyiTaqAxIrcXCvR5dqukUYKW 1lOjwvdGQ+DDJfPLU7fJbhQWb w RYPkzW2uCDXeJ2k3XsHmUqQ1J XlrC8QxmaW1HBQvgQJwKPLeqS SDaF3ngufsi5puyltlIgBcDLQ w PFt9WSj8AETbaCnvQtXgXBL4U oN9SKB9kGBiwS9ijFvkxbjcwZ 9wOyc+RklOOjwvdGQ+PHRkIHN 0 zQwwCLguGNIsuT5aXAPfV7l6J qRkPqB4RTijY4GxiqH3EOOszR MvEZCkvJOWbC9ptzbxj2uqnbo g YkCbRIUfIIc6LZb9VXPxuFlcR dCfAVC0YxF8ERD1uSTeyP9dhI mtgemdyD9qTyc+TVJOOjwvdGQ + ZMWrEGP5bUweOQzpFEDmqN9gJ UKfX5c6YkUaToH1AIlsG0Tkxg G8HLLdqONqVNIpgDNWbI4eprj j o6uxgijuNwDvKYRbPUw5DYl0F LEjrHyqJlWiCTF2XzX3XIG4tV HmdI4eqCsederpdN4aEhl+UGF 5 WKJ9VB73NR95O4ReYigveOVyr +PHRhYmxlIHdpZHRoPScxMD BiTkMxbIwdAG4fIv0jIHVuVJY v bGxh (more content not included)... Normal [facility] Formson 08-25-2021 Forms [id number]#[id number]:12 7 Normal [facility] Ambulatory Visit Summaryon 0 08-24-2021 Ambulatory Visit Summary SABI SANTAMARIA :1945 Visit Date:08/24/2021 Ambulatory Visit Instructions Your Diagnosis Gross hematuria UTI (urinary tract infection) Tests Performed Urnls Dip Stick Auto w/o Microscopy POC 59675 Your Care Team Attending Physician - Jose [...] Following Appointments Follow Up with ESTELLA JOHNSON, Jose Eugene, URL When: Only if needed Where: [address] [place] [id number]- Medications What How Much When Instructions New cephalexin (Keflex 250 mg Cap) 1 Capsules By Mouth Every 6 hours Duration: 5 Days Pickup at [facility]/pharmacy #[id number] Unchanged acetaminophen (acetaminophen 500 mg Tab) Oral [...] physician if questions or concerns Pharmacy Information [facility]/pharmacy #[id number]: [address], [place] [id number] [phone] Test Results Urnls Dip Stick Auto w/o Microscopy POC 90399 (08/24/2021) Bilirubin Urine Dipstick - Negative Blood Urine Dipstick - Trace-intact Glucose Urine Dipstick - Negative Ketones Urine Dipstick - Negative Leukocytes Urine Dipstick - 3+ Large Nitrite Urine Dipst (more content not included)... Normal [facility] Patient Educationon 08-25-19 Patient Education Nutrition BMI [...] height. This can be done either in [place] or metric measurements. Note that charts are available to help you find your BMI quickly and easily without having to do these calculations yourself. To calculate your BMI in [place] measurements, your health care provider will: [...] problems. ? BMI can be measured using [place] measurements or metric measurements. ? To interpret [...] 02/13/2005 Document Revised: 05/17/2018 Document Reviewed: 04/17/2018 [employer] Patient Education ? 2020 [employer] Urology Hematuria, Adult Hematuria is blood in [...] these instructions at home: Medicines ? Take eeet-rgi-oedvvns and pres (more content not included)... Normal [facility] Reminderson 08-24-2021 Reminders - From: Muna Diaz MA To: EU - Clinical; Sent: 08/24/2021 11:15:25 EST Show up: 08/26/2021 11:15:00 EST Subject: urine culture Reminder/Recall Urine sent to [facility] for culture Normal [facility] Urology Office/Clinic Noteon 08-24-2021 Urology Office/Clinic Note [...] information and history for this patient from [facility] Admission I have reviewed and verified the [...] Patient seen for consult. 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 As noted above she has [...] not recurred. Follow-up With When Contact Information Jose SORIA MD, URL Only if needed [address] [place] [phone]- Additional Instructions: Patient Education BMI for Adults Hematuria, Adult I, [place] Cotton, personally scribed for Dr. Soria on 08/24/2021 11:01:25. . Documentation recorded by the scribe, [place] Cotton, accurately reflects the services(s) I performed and [...] citrate) 20 (more content not included)... Normal [facility] Comment on above: Result Comment: Elec tronically Signed By: Jose SORIA MD\.br\Date and Time Signed: 08/24/21 11:09 EST\.br\Electronically Co-Signed By: [place] Cotton MA\.br\Date and Time Co-Signed: 08/24/21 11:01 EST XR hip RT min 2V(w/wo pelvis )*on 06-29-2021 XR hip RT min 2V(w/wo pelvis)* [facility] [employer] Other XR hip RT min 2V(w/wo pelvis)* [facility] [place] [employer] Other XR hip RT min 2V(w/wo pelvis)* [address] [facility] [employer] Other XR hip RT min 2V(w/wo pelvis)* [place] [address] [employer] Other XR hip RT min 2V(w/wo pelvis)* XRay Report [employer] Other XR hip RT min 2V(w/wo pelvis)* Signed [employer] Other XR hip RT min 2V(w/wo pelvis)* Patient: Sabi Santamaria MR#: [id number] [employer] Other XR hip RT min 2V(w/wo pelvis)* [id number] [employer] Other XR hip RT min 2V(w/wo pelvis)* : 1945 Acct:[id number] [employer] Other XR hip RT min 2V(w/wo pelvis)* Age/Sex: 76 / F ADM Date: 06/29/21 [employer] Other XR hip RT min 2V(w/wo pelvis)* Loc: [facility] Room: Type: [facility] [employer] Other XR hip RT min 2V(w/wo pelvis)* Attending Dr: Getachew Escalante DO [employer] Other XR hip RT min 2V(w/wo pelvis)* Ordering Provider: Getachew Escalante DO [employer] Other XR hip RT min 2V(w/wo pelvis)* Date of Service: 06/29/21 [employer] Other XR hip RT min 2V(w/wo pelvis)* XR/XR hip RT min 2V(w/wo pelvis)*: Other specified postprocedural states [employer] Other XR hip RT min 2V(w/wo pelvis)* Copies to: Getachew Escalante, [employer] Other XR hip RT min 2V(w/wo pelvis)* XR hip RT min 2V(w/wo pelvis)* 06/29/2021 1:07 PM [employer] Other XR hip RT min 2V(w/wo pelvis)* SIGNS AND SYMPTOMS: Status post right total hip arthroplasty, follow-up [employer] Other XR hip RT min 2V(w/wo pelvis)* PROTOCOL: Frontal and frog-leg views of the right hip [employer] Other XR hip RT min 2V(w/wo pelvis)* COMPARISON: 05/12/2021 [facility] Other XR hip RT min 2V(w/wo pelvis)* FINDINGS: [employer] Other XR hip RT min 2V(w/wo pelvis)* Hemiarthroplasty hardware is noted in the right hip without fracture or dislocation. Visualized [employer] Other XR hip RT min 2V(w/wo pelvis)* right hemipelvis is grossly intact. Surgical clips are noted in the right hemipelvis. [employer] Other XR hip RT min 2V(w/wo pelvis)* XR/XR hip RT min 2V(w/wo pelvis)* [employer] Other XR hip RT min 2V(w/wo pelvis)* IMPRESSION: [employer] Other XR hip RT min 2V(w/wo pelvis)* Hemiarthroplasty of right hip is redemonstrated without fracture, hardware complication, or [employer] Other XR hip RT min 2V(w/wo pelvis)* malalignment. [employer] Other XR hip RT min 2V(w/wo pelvis)* Impression dictated by: Carl Smith M.D.06/29/2021 1:54 PM [employer] Other XR hip RT min 2V(w/wo pelvis)* Dictation Location: [place] [address] [employer] Other XR hip RT min 2V(w/wo pelvis)* Transcribed By: PWS 06/29/21 [facility] [employer] Other XR hip RT min 2V(w/wo pelvis)* Dictated By: Carl Smith II, MD 06/29/21 [facility] [employer] Other XR hip RT min 2V(w/wo pelvis)* Signed By: [employer] Other XR hip RT min 2V(w/wo pelvis)* 06/29/21 [facility] [employer] Other Consultation Noteon 06-16-20 Consultation Note [id number]#1.00CD:12 7 [facility] Insurance Correspondence Off iceon 04-29-2021 Insurance Correspondence Office [id number]#[id number]:1 27 [facility] Consultation Noteon 04-27-20 Consultation Note [id number]#1.00CD:12 7 [facility] Operative Reporton Operative Report [id number]#1.00CD:12 7 [facility] RAD - CT Reporton 04-27-2021 RAD - CT Report [id number]#1.00CD:12 7 [facility] RAD - Ultrasound Reporton RAD - Ultrasound Report [id number]#1.00CD:12 7 [facility] Vital Signs Date Time Vital Sign Value Performing Clinician Facility 12-31-2024 14:55-0400 Body height 162.56 cm Merrill Doherty MD Work Phone: [facility] 12-31-2024 14:55-0400 Body mass index (BMI) [Ratio] 22.3 kg/m2 Merrill Doherty MD Work Phone: [facility] 12-31-2024 14:55-0400 Body temperature 97.4 [degF] Merrill Doherty MD Work Phone: [facility] 12-31-2024 14:55-0400 Body weight 58.96 kg Merrill Doherty MD Work Phone: [facility] 12-31-2024 14:55-0400 Diastolic blood pressure 79 mm[Hg] Merrill Doherty MD Work Phone: [facility] 12-31-2024 14:55-0400 Heart rate 0 /min Merrill Doherty MD Work Phone: [facility] 12-31-2024 14:55-0400 Respiratory rate 16 /min Merrill Doherty MD Work Phone: [facility] 12-31-2024 14:55-0400 SaO2% (BldA) [Mass fraction] 98 % Merrill Doherty MD Work Phone: [facility] 12-31-2024 14:55-0400 Systolic blood pressure 122 mm[Hg] Merrill Doherty MD Work Phone: [facility] 04-29-2024 16:12-0500 Body mass index (BMI) [Ratio] 23.81 kg/m2 Debra Walters NP Work Phone: [facility] 04-29-2024 16:12-0500 Body weight 57.15 kg Debra Walters [employer] Work Phone: [facility] 04-29-2024 16:12-0500 Diastolic blood pressure 74 mm[Hg] Debra Walters [employer] Work Phone: [facility] 04-29-2024 16:12-0500 Heart rate 67 /min Debra Walters [employer] Work Phone: [facility] 04-29-2024 16:12-0500 SaO2% (BldA) [Mass fraction] 97 % Debra Walters [employer] Work Phone: [facility] 04-29-2024 16:12-0500 Systolic blood pressure 130 mm[Hg] Debra Walters [employer] Work Phone: [facility] 02-27-2024 16:45-0400 Body height 154.9 cm Debra Walters [employer] Work Phone: [facility] 02-27-2024 16:45-0400 Body mass index (BMI) [Ratio] 23.92 kg/m2 Debar Walters [employer] Work Phone: [facility] 02-27-2024 16:45-0400 Body weight 57.42 kg Debra Walters [employer] Work Phone: [facility] 02-27-2024 16:45-0400 Diastolic blood pressure 86 mm[Hg] Debra Walters [employer] Work Phone: [facility] 02-27-2024 16:45-0400 Systolic blood pressure 140 mm[Hg] Debra Walters [employer] Work Phone: [facility] 12-13-2023 15:07-0400 Body height 162.56 cm MD Merrill Doherty Work Phone: [facility] 12-13-2023 15:07-0400 Body mass index (BMI) [Ratio] 22.1 kg/m2 MD Merrill Doherty Work Phone: [facility] 12-13-2023 15:07-0400 Body temperature 97.5 [degF] MD Merrill Doherty Work Phone: [facility] 12-13-2023 15:07-0400 Body weight 58.51 kg MD Merrill Doherty Work Phone: [facility] 12-13-2023 15:07-0400 Diastolic blood pressure 70 mm[Hg] MD Merrill Doherty Work Phone: [facility] 12-13-2023 15:07-0400 Heart rate 65 /min MD Merrill Doherty Work Phone: [facility] 12-13-2023 15:07-0400 Respiratory rate 20 /min MD Merrill Doherty Work Phone: [facility] 12-13-2023 15:07-0400 SaO2% (BldA) [Mass fraction] 98 % MD Merrill Doherty Work Phone: [facility] 12-13-2023 15:07-0400 Systolic blood pressure 109 mm[Hg] MD Merrill Doheryt Work Phone: [facility] 06-14-2023 15:02-0500 Body height 162.56 cm MD Merrill Doherty Work Phone: [facility] 06-14-2023 15:02-0500 Body temperature 97.9 [degF] MD Merrill Doherty Work Phone: [facility] 06-14-2023 15:02-0500 Body weight 59.42 kg MD Merrill Doherty Work Phone: [facility] 06-14-2023 15:02-0500 Diastolic blood pressure 94 mm[Hg] MD Merrill Doherty Work Phone: [facility] 06-14-2023 15:02-0500 Heart rate 98 /min MD Merrill Doherty Work Phone: [facility] 06-14-2023 15:02-0500 Respiratory rate 20 /min MD Merrill Doherty Work Phone: [facility] 06-14-2023 15:02-0500 SaO2% (BldA) [Mass fraction] 98 % MD Merrill Doherty Work Phone: [facility] 06-14-2023 15:02-0500 Systolic blood pressure 146 mm[Hg] MD Merrill Doherty Work Phone: [facility] 12-14-2022 15:27-0400 Body temperature 97.8 [degF] MD Merrill Doherty Work Phone: [facility] 12-14-2022 15:27-0400 Body weight 60.32 kg MD Merrill Doherty Work Phone: [facility] 12-14-2022 15:27-0400 Diastolic blood pressure 73 mm[Hg] MD Merrill Doherty Work Phone: [facility] 12-14-2022 15:27-0400 Heart rate 69 /min MD Merrill Doherty Work Phone: [facility] 12-14-2022 15:27-0400 Respiratory rate 16 /min MD Merrill Doherty Work Phone: [facility] 12-14-2022 15:27-0400 SaO2% (BldA) [Mass fraction] 97 % MD Merrill Doherty Work Phone: [facility] 12-14-2022 15:27-0400 Systolic blood pressure 115 mm[Hg] MD Merrill Doherty Work Phone: [facility] 05-31-2022 14:45-0500 Body temperature 97.8 [degF] MD Merrill Doherty Work Phone: [facility] 05-31-2022 14:45-0500 Body weight 59 kg MD Merrill Doherty Work Phone: [facility] 05-31-2022 14:45-0500 Diastolic blood pressure 67 mm[Hg] MD Merrill Doherty Work Phone: [facility] 05-31-2022 14:45-0500 Heart rate 61 /min MD Merrill Doherty Work Phone: [facility] 05-31-2022 14:45-0500 Respiratory rate 16 /min MD Merrill Doherty Work Phone: [facility] 05-31-2022 14:45-0500 SaO2% (BldA) [Mass fraction] 98 % MD Merrill Doherty Work Phone: [facility] 05-31-2022 14:45-0500 Systolic blood pressure 109 mm[Hg] MD Merrill Doherty Work Phone: [facility] 01-13-2022 14:22-0400 Body temperature 96.1 [degF] MD Merrill Doherty Work Phone: [facility] 01-13-2022 14:22-0400 Body weight 58.96 kg MD Merrill Doherty Work Phone: [facility] 01-13-2022 14:22-0400 Diastolic blood pressure 68 mm[Hg] MD Merrill Doherty Work Phone: [facility] 01-13-2022 14:22-0400 Heart rate 63 /min MD Merrill Doherty Work Phone: [facility] 01-13-2022 14:22-0400 Respiratory rate 16 /min MD Merrill Doherty Work Phone: [facility] 01-13-2022 14:22-0400 SaO2% (BldA) [Mass fraction] 98 % MD Merrill Doherty Work Phone: [facility] 01-13-2022 14:22-0400 Systolic blood pressure 102 mm[Hg] MD Merrill Doherty Work Phone: [facility] 11-04-2021 10:30-0400 Body height 154.94 cm Getachew Escalante Other [employer] Other Encounters Encounter Date Encounter Type Care Provider Facility Start: 12-31-2024 End: 12-31-2024 Patient encounter procedure Bonnie Richter [facility] Work Phone: Start: 12-31-2024 End: 12-31-2024 ambulatory Merrill Doherty MD Work Phone: [facility] Work Phone: Start: 12-09-2024 End: 12-11-2024 External Result Encounter Bonnie Hendricks MD Work Phone: [facility] External Department Unsolicited Start: 12-09-2024 End: 12-11-2024 External Result Encounter Bonnie Hendricks MD Work Phone: [facility] External Department Unsolicited Start: 12-06-2024 ambulatory [facility] Start: 12-03-2024 End: 12-03-2024 ambulatory Bonnie Hoover Facility:[facility] Start: 12-03-2024 End: 12-03-2024 Departed Referred Bonnie Hoover CRAFT RECRUITER-C -[facility] Start: 12-03-2024 End: 12-05-2024 External Result Encounter Bonnie WARE Work Phone: [facility] External Department Unsolicited Start: 12-03-2024 End: 12-05-2024 External Result Encounter Bonnie WARE Work Phone: [facility] External Department Unsolicited Start: 12-02-2024 ambulatory [facility] Start: 05-24-2024 End: 05-24-2024 Emergency department patient visit [facility] Start: 04-29-2024 End: 04-29-2024 ambulatory DEBRA ROMEO Not Available Start: 04-29-2024 End: 04-29-2024 Office outpatient visit 15 minutes Debra Walters CRAFT RECRUITER Work Phone: [facility] [employer] [address] Comment on above: Ischemic stroke (CMS /HCC) (Primary Dx); Paresthesia; Hyperlipidemia, unspecified hyperlipidemia type (CMS/HCC); Primary hypertension (CMS/HCC); Gait instability; 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 Start: 04-29-2024 End: 04-29-2024 Bamboo flowsheet Debra Walters CRAFT RECRUITER Work Phone: [facility] [place] [address] Start: 04-29-2024 End: 04-29-2024 Bamboo flowsheet Debra Walters CRAFT RECRUITER Work Phone: [facility] [address] Start: 03-10-2024 End: 03-10-2024 Office outpatient visit 10 minutes Dion Brandon MD Work Phone: [facility] [place] Comment on above: Ischemic stroke (CMS /HCC) Start: 03-10-2024 End: 03-10-2024 ambulatory DEBRA WALTERS Not Available Start: 02-27-2024 End: 02-27-2024 Office outpatient visit 25 minutes Debra Walters CRAFT RECRUITER Work Phone: [facility] [place] [address] Comment on above: Ischemic stroke (CMS /HCC) (Primary Dx); Paresthesia; Hyperlipidemia, unspecified hyperlipidemia type (CMS/HCC); Primary hypertension (CMS/HCC); Gait instability; 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 Start: 02-27-2024 End: 02-27-2024 ambulatory DEBRA WALTERS Not Available Start: 02-27-2024 End: 02-27-2024 Bamboo flowsheet Debra Walters CRAFT RECRUITER Work Phone: [facility] [address] [address] Start: 02-27-2024 End: 02-27-2024 Bamboo flowsheet Debra Walters CRAFT RECRUITER Work Phone: [facility] Start: 12-13-2023 End: 12-13-2023 ambulatory MD Merrill Doherty Work Phone: [facility] Work Phone: Start: 12-13-2023 End: 12-13-2023 Patient encounter procedure MD Merrill Doherty Work Phone: [facility] Work Phone: Start: 12-13-2023 Registered Recurring MD Marika Doherty Work Phone: [facility] Work Phone: Start: 06-14-2023 End: 06-14-2023 ambulatory MD Merrill Doherty Work Phone: [facility] Work Phone: Start: 06-14-2023 End: 06-14-2023 Registered Recurring MD Merrill Do[facility] Work Phone: Start: 12-14-2022 End: 12-14-2022 ambulatory MD Merrill Doherty Work Phone: [facility] Work Phone: Start: 12-14-2022 End: 12-14-2022 Registered Recurring MD Merrill Doherty [facility] Work Phone: Start: 09-16-2022 End: 09-17-2022 ambulatory ROBINSON SEPULVEDA . Facility: Start: 05-31-2022 End: 05-31-2022 ambulatory MD Merrill Doherty Work Phone: [facility] Work Phone: Start: 05-31-2022 End: 05-31-2022 Registered Recurring MD Merrill Doherty [facility] [place] Start: 03-20-2022 End: 03-22-2022 Evaluation and management of inpatient DR MERRILL DOHERTY . Facility: Start: 01-13-2022 End: 01-13-2022 Registered Recurring MD Merrill Doherty [facility] [place] Start: 12-20-2021 End: 12-29-2021 Evaluation and management of inpatient OBINNA GARRETT Facility:[facility] Start: 12-20-2021 End: 12-20-[address] OBINNA GARRETT . Facility: Start: 11-10-2021 End: 11-13-2021 Evaluation and management of inpatient DR MERRILL DOHERTY . Facility: Start: 11-04-2021 End: 11-04-2021 ambulatory Getachew Escalante Other [employer] Other Start: 11-04-2021 Office outpatient vi sit 15 minutes Get[facility] Start: 06-29-2021 End: 06-29-2021 ambulatory Getachew Escalante Other [employer] Other Start: 06-29-2021 Postop follow up vis it related to original px Getachew Escalante [facility] Start: 06-29-2021 Telephone encounter Getachew Ava [facility] Procedures Date Procedure Procedure Detail Performing Clinician Start: 12-09-2024 Complete blood count with white cell differential, automated Bonnie Hendricks MD Work Phone: Start: 12-09-2024 Comprehensive metabo lic panel Bonnie Hendricks MD Work Phone: Start: 12-09-2024 Immunoassay tumor an tigen quantitative ca 125 Bonnie Hendricks MD Work Phone: Start: 12-03-2024 Culture bacterial quanttative colony count urine Bonnie WARE Work Phone: Start: 12-03-2024 Urine culture Merrill queen MD Work Phone: Start: 03-10-2024 Duplex scan extracra nial art compl bi study Debra Walters NP Work Phone: Start: 12-10-2023 Computed tomography of abdomen and pelvis with contrast MD Merrill Doherty Work Phone: Start: 12-12-2022 Computed tomography of abdomen and pelvis with contrast MD Merrill Doherty Work Phone: Start: 05-16-2022 Computed tomography of abdomen and pelvis with contrast MD Merrill Doherty Work Phone: Start: 10-25-2021 Ultrasonography of limb MD Merrill Doherty Work Phone: Start: 10-19-2021 Positron emission to mography with computed tomography MD Merrill Doherty Work Phone: Start: 10-10-2021 Computed tomography of abdomen and pelvis with contrast MD Merrill Doherty Work Phone: Plan of Treatment Date Care Activity Detail Author Start: 02-16-2025 Influenza vaccination Influenz a Vaccine (Season Ended) [facility] Start: 11-03-2024 End: 11-03-2024 Patient encounter procedure [facility] [address] Start: 04-01-2024 End: 04-01-2024 Patient encounter procedure 04/01/2024 4:00 PM EDT Office Visit [facility] [address] [place] [address] Debra Walters, SHANT [address] [place] [address] [facility] [address] Start: 03-10-2024 End: 03-10-2024 Clinical Support 03/10/2024 3:20 PM EDT Clinical Support [facility] [address] [facility], [facility] [place] [address] [facility] Start: 02-27-2024 End: 02-27-2024 Patient encounter procedure 02/27/2024 4:20 PM EDT Office Visit [facility] [address] [place] [address] Debra Walters NP [address] [place] [id number] Arrived [facility] Comment on above: Arrived Start: 02-27-2024 End: 02-26-2025 US.doppler Carotid arteries - bilateral Vascular US carotid artery duplex bilateral Imaging Routine Ischemic stroke (CMS/HCC) Expected: 02/27/2024 (Approximate), Expires: 02/26/2025 [facility] Work Phone: Comment on above: Expected: 02/27/2024 (Approximate), Expires: 02/26/2025 Start: 02-17-2024 Influenza vaccination Influenza Vacc ine (#1) [facility] Bacteria identified in Urine by Culture Urine culture Microbiology Routine 12/03/2024 7:08 PM EDT [facility] Work Phone: Cancer Ag 125 [Units/volume] in Serum or Plasma [facility] Work Phone: Cancer Ag 125 [Units/volume] in Serum or Plasma [facility] Cancer Ag 125 [Units/volume] in Serum or Plasma [facility] Cancer Ag 125 [Units/volume] in Serum or Plasma [facility] Cancer Ag 125 [Units/volume] in Serum or Plasma [facility] Cancer Ag 125 [Units/volume] in Serum or Plasma [facility] Comprehensive metabo lic 1999 panel - Serum or Plasma [facility] Work Phone: Comprehensive metabo lic 1999 panel - Serum or Plasma [facility] Comprehensive metabo lic 1999 panel - Serum or Plasma [facility] Comprehensive metabo lic 1999 panel - Serum or Plasma [facility] Comprehensive metabo lic 1999 panel - Serum or Plasma [facility] Comprehensive metabo lic 1999 panel - Serum or Plasma [facility] CT Abdomen and Pelvi s W contrast IV [facility] Work Phone: CT Abdomen and Pelvi s W contrast IV [facility] CT Abdomen and Pelvi s W contrast IV [facility] CT Abdomen and Pelvi s W contrast IV [facility] CT Abdomen and Pelvi s WO and W contrast IV [facility] Immunizations Immunization Date Immunization Notes Care Provider [facility] 04-04-2022 influenza virus vaccine, unspecified formulation Debra Walters NP Work Phone: [facility] 04-29-2021 Fluzone QIV High-Dos e 65YR+ MD Merrill Doherty Work Phone: [facility] 06-18-2019 influenza virus vaccine, unspecified formulation MD Merrill Doherty Work Phone: [facility] 06-18-2019 pneumococcal polysaccharide vaccine, 23 valent Getachew Escalante Other [facility] 06-18-2019 influenza, high dose seasonal, preservative-free Getachew Escalante Other [employer] Other Payers Date Payer Category Payer Private Health Insurance [employer] [id number] 2024 Unknown [employer] [id number] 2024-Present [address] [place] [address] [id number] 2021 Self-pay [id number] 2007 Medicare [id number] 1959 Medicare [id number] 1959 Unknown [id number] [id number] 1947 Unknown [id number] 2.840.1.442078.3.579. 2.1286 1946 Unknown [id number] 2.840.1.404087.3.579. 2.593 1946 Unknown [id number] 2.16840.1.560951.3.579. 2.593 1946 Unknown [id number] 2.840.1.926519.3.579. 2.593 1946 Unknown [id number] 2.840.1.953805.3.579. 2.593 1946 Unknown [id number] 2.16.840.1.540566.3.579. 2.1259 1946 Unknown [id number] 2.16.840.1.707557.3.579. 2.1259 1946 Unknown [id number] 2.16.840.1.597996.3.579. 2.1259 1946 Unknown [id number] 2.16.840.1.563324.3.579. 2.647 1946 Unknown [id number] 2.16.840.1.260387.3.579. 2.1286 1946 Unknown [id number] 2.16.840.1.184440.3.579. 2.1286 1946 Unknown [id number] 2.16.840.1.152208.3.579. 2.1286 Unknown Private [place] [facility] [id number] Unknown [id number] 2.16.840.1.818711.3.579. 2.531 Unknown [id number] 2.16.840.1.842935.3.579. 2.531 Social History Date Type Detail Facility Start: 02-27-2024 End: 04-29-2024 Sex Assigned At [facility] [employer] Other Start: 01-13-2022 End: 06-14-2023 Tobacco smoking status KSIS Never smoked tobacco (finding) [facility] Start: 1945 Sex Assigned At Female F [facility] Start: 12-27-2023 Tobacco use and exposure Smokeless tobacco non-user [facility] Start: 03-06-2024 End: 04-29-2024 Alcoholic beverage intake Ex-drinker (finding) [facility] Start: 02-27-2024 End: 04-29-2024 History of Social function [facility] Start: 1945 Sex assigned at Not on file N [facility] Start: 12-27-2023 Alcoholic beverage intake Lifetime non-drinker (finding) [facility] Sex Female (finding) [facility] Medical Equipment Procedure Code Equipment Code Equipment Original Text Equipment Identifier Dates 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 Bipolar femoral head outer component, hemiarthroplasty [id number] FDA Start: 04-21-2021 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 The patient's primary language is Surinamese. The patient's daughter provided translation for today's appointment, stating she is fluent in both [place] Zealander and Surinamese. I did offer a professional trawl net maker service. The patient and her daughter politely declined this. They understand that, by refusing a professional trawl net maker, there is increased risk for miscommunication, misunderstanding, [...] Arthritis COVID-19 NSTEMI (non-ST elevated myocardial infarction) ([facility]) Sepsis ([facility]) Stroke ([facility]) UTI (urinary tract infection) 12/2022 Past Surgical [...] wrist extensors , wrist flexor , and hydroelectric plant technician strength 5/5. LUE strength deltoid , biceps , triceps , wrist extensors , wrist flexor , and hydroelectric plant technician strength 5/5. RLE strength iliopsoas, quadriceps, tibialis [...] reflex 2+. LLE Knee reflex 2+. Coordination: Kqlvog-sn-iige testing normal. Rapid alternating movements are normal. Gait: Steady with use of walker. Review and summary of old records: Carotid ultrasound at [facility] on 03/10/24: No hemodynamically significant stenosis noted. Mild intimal thickening. 1 to 29% stenosis of the right and left ICA. Antegrade flow of the right and left VA. Normal triphasic waveforms in the right and left SCA. Sodium level on 01/07/23: 138. ECHO on 01/04/23: No mention of mass or thrombus. EF 55% CT of the brain without contrast at [facility] on 01/04/23: Stable remote infarcts left [...] new neurologic deficits. Hyperlipidemia, unspecified hyperlipidemia type (CMS/HCC) PLAN: - Follow up with primary care provider for management - Continue statin (prescription and management per PCP) Primary hypertension ([facility]) PLAN: - Follow up with primary care [...] new or worsening symptoms. Debra Walters NP [facility] Neurology documented in this encounter [facility] 03-10-2024 History of Presen t illness Narrative Tech explains to patient and daughter (who assists in any language barriers) the procedure process and answers any questions, patient is positioned supine on exam table ultrasound procedure(s)completed. Pt verbalizes no concerns, assisted to sitting position without difficulty. Discharged as she arrived using a walker and accompanied per daughter are advised results will read by a neurologist and forwarded to ordering physician for review with patient at next appt or per phone. Daughter confirms follow-up appt 04/01/24. IVAN Pimentel RN documented in this encounter [facility] 02-27-2024 History of Presen t illness [...] appointment, stating she is fluent in both [place] Zealander and Surinamese. I did offer a professional trawl net maker service. However, the patient and her daughter declined this. They understand that, by refusing a professional trawl net maker, there is increased risk for miscommunication, misunderstanding, [...] Arthritis COVID-19 NSTEMI (non-ST elevated myocardial infarction) ([facility]) Sepsis ([facility]) Stroke ([facility]) UTI (urinary tract infection) 12/2022 Past Surgical [...] wrist extensors , wrist flexor , and hydroelectric plant technician strength 5/5. LUE strength deltoid , biceps , triceps , wrist extensors , wrist flexor , and hydroelectric plant technician strength 5/5. RLE strength iliopsoas, quadriceps, tibialis [...] reflex 2+. LLE Knee reflex 2+. Coordination: Fcpqjy-vy-jcfq testing normal. Rapid alternating movements are normal. Gait: Steady with use of walker. Review and summary of old records: Sodium level on 7/23/23: 138. ECHO on 01/04/23: No mention of mass or thrombus. EF 55% CT of the brain without contrast at [facility] on 01/04/23: Stable remote infarcts left [...] - Carotid ultrasound Hyperlipidemia, unspecified hyperlipidemia type ([facility]) PLAN: - Follow up with primary care provider for management - Continue statin (prescription and management per PCP) Primary hypertension ([facility]) PLAN: - Follow up with primary care [...] new or worsening symptoms. Debra Walters NP [facility] Neurology documented in this encounter [facility] 02-27-2024 Instructions Debra Walters NP - 02/27/2024 4:20 PM EDT - Carotid ultrasound documented in this encounter [facility] 12-15-2022 Progress note Note Date/Time December 14, 2022 3:30pm [facility] [place] [address] Hem/Onc Follow Up Note - OP Signed Patient: Sabi Santamaria MR#: [id number] : 1945 Acct:[id number] Age/Sex: 77 / F Type: REG RCR Copies to: Merrill Doherty MD~ Subjective Date/Time of Service: Date of Service: 12/14/2022 Time of Service: 15:29 Chief Complaint: Patient is here today for a 6 month follow up visit and go overCT scan and labs. No new concerns HPI: 12/14/2022: Sabi is here for 6 month followup with daughter who acts as her trawl net maker. She denies any abdominal pain or bloating [...] followup with daughter who acts as her trawl net maker. Since last visit patient has not had [...] with limited ability to speak and understand New Zealander. 01/13/2022: Sabi is accompanied by her daughter who acts as her trawl net maker. She was hospitalized at [facility] for a bowel obstruction about [...] 35-minute visit. 10/12/2021: This patient is primarily Surinamese-speaking and is accompanied by mary grace who acts as her trawl net maker. She is here for transfer of care from Dr. Fernandez who has left the practice. She was hospitalized in early April 2021 for fractured right hip--s/p hemiarthroplasty 04/21/2022. Prior hysterectomy in the early at [facility], ovaries intact. During that hospital [...] daughter presents with her. She is her trawl net maker. The patient had a hysterectomy at [facility]. I was told previously this was in [place]. Supposedly this was for uterine cancer. I do not know she had an oophorectomy. Below is the recent summary of findings while she was admitted after the hip fracture: Interval History: CA-125 is normal. Urology note and procedure is noted. Her CT scan is reviewedbelow: Patient: Sabi Santamaria MR#: [id number] : 1945 Acct:[id number] Age/Sex: 76 / F ADM Date: 1 Loc: 4N Room: 6I6759-0 Type: ADM IN Attending Dr: Jayden Abad [...] a 76-year-old female who does not speak New Zealander. She was found down on the floor after stroke. She has a history of a history of hysterectomy or some type of gynecologic surgery in [place] in the distant past. Her CT scan shows either a left-sided pelvic mass or left sided enlarged ovary. CA-125 is currently pending. As above she does not speak New Zealander. An shoe lay out planner is not in the room. Her CT and reports are reviewed. She had a right femoral head fracture and is status post surgery. She is recovering well. - Summary of Therapies Summary of Therapies: 1. History of a history of hysterectomy or some type of gynecologic surgery in [facility] in about 1979, ovaries intact--unclear [...] Negative for environmental allergies and food allergies. [facility] - History Attestation statement: The following information [...] PO DAILY 06/14/21 [History Confirmed 12/14/22] omega 2-klq-eyo-fish oil 1,200 mg (144 mg-216 mg) capsule [...] Thin but not cachectic. Daughter acts as trawl net maker. HEAD / FACE: Normocephalic. EYES: Pupils are [...] % (Auto) 56.9, Lymph % (Auto) 31.0, Burke % (Auto) 8.4, Eos % (Auto) 3.1, Baso % (Auto) 0.6, Nucleat RBC Rel Count 0.2, Neut # (Auto) 2.8, Lymph # (Auto) 1.5, Burke # (Auto) 0.4, Eos # (Auto) 0.1, [...] of disease. Impression dictated by: Catracho Bailey Jr. D.Flash12/12/2022 4:57 PM Assessment and Plan - TNM [...] review her operative and pathological findings from [facility] where she had original hysterectomy in the [...] surgery. She was wheelchair-bound and in a senior care. 10/12/2021: [place] with initial visit 10/12/[address] Fernandez [...] by hospitalization for small bowel obstruction at [facility] which resolved with NG tube [...] this plan. 05/31/2022: Sabi presents with her vuwqfbab-rd-wcj for follow-up. She no longer has any abdominal pain or distention and is eating a normal diet with no further episodes of small bowel obstruction. She does not have any detectable adenopathy by exam or by restaging 05/16/2022 CT abdomen and pelvis reviewed with the patient and her rrrnfkbh-uu-ejz today. She has unchanged cyst of the [...] develops clinical adenopathy. The patient and her kffcpigo-do-fjp are in agreement with this plan over [...] type symptoms. She is no longer in senior care and moved back into her home with [...] follow with symptoms and serial imaging. (6) Non-New Zealander speaking patient Patient expressed understanding and was able to give review of systems with limited New Zealander. Different family members served as translators and if we belt changer we will obtain a translation service for her follow-up appointments. - Time with Patient Time Spent with Patient (Follow Up Visit): 35 minutes - Review restaging images and reports, repeat Ca 125, symptoms and exam, surveillance plan Coordination of Care & Counseling Time: Greater than 50% of time spent with patient was for coordination of care (as documented) and npss-yn-nwua counseling of patient and/or family. Dictated By: Bonnie Hendricks MD DD/ 1529 Signed By: <Electronically signed by MD Bonnie Hendricks> 12/15/22 0901 [facility] Work Phone: 1([phone]) 440-806212-14-2022 Progress note Author Bonnie Hendricks [facility] May 31, 2022 4:00pm Note Date/Time May 31, 2022 2:47pm [facility] at [address] [address] Hem/Onc Follow Up Note - OP Signed Patient: Sabi Santamaria MR#: [id number] : 1945 Acct:[id number] Age/Sex: 77 / F Type: REG RCR Copies to: Merrill Doherty MD~ Subjective Date/Time of Service: Date of Service: 05/31/2022 Time of Service: 14:46 Chief Complaint: Patient is here today for 5 month follow up visit and go over labs and CT scan. No new concerns HPI: 05/31/2022: Sabi is here for about 4 month followup with daughter who acts as her trawl net maker. Since last visit patient has not had [...] with limited ability to speak and understand New Zealander. 01/13/2022: Sabi is accompanied by her daughter who acts as her trawl net maker. She was hospitalized at [facility] for a bowel obstruction about [...] 35-minute visit. 10/12/2021: This patient is primarily Surinamese-speaking and is accompanied by mary grace who acts as her trawl net maker. She is here for transfer of care from Dr. Fernandez who has left the practice. She was hospitalized in early April 2021 for fractured right hip--s/p hemiarthroplasty 04/21/2022. Prior hysterectomy in the early at [facility], ovaries intact. During that hospital [...] daughter presents with her. She is her trawl net maker. The patient had a hysterectomy at [facility]. I was told previously this was in [place]. Supposedly this was for uterine cancer. I do not know she had an oophorectomy. Below is the recent summary of findings while she was admitted after the hip fracture: Interval History: CA-125 is normal. Urology note and procedure is noted. Her CT scan is reviewedbelow: Patient: Sabi Santamaria MR#: [id number] : 1945 Acct:[id number] Age/Sex: 76 / F ADM Date: 1 Loc: Room: [address] [place] [address] Type: ADM IN Attending Dr: Jayden Abad [...] a 76-year-old female who does not speak New Zealander. She was found down on the floor after stroke. She has a history of a history of hysterectomy or some type of gynecologic surgery in [place] in the distant past. Her CT scan shows either a left-sided pelvic mass or left sided enlarged ovary. CA-125 is currently pending. As above she does not speak New Zealander. An shoe lay out planner is not in the room. Her CT and reports are reviewed. She had a right femoral head fracture and is status post surgery. She is recovering well. - Summary of Therapies Summary of Therapies: 1. History of a history of hysterectomy or some type of gynecologic surgery in [facility] in about 1979, ovaries intact--unclear [...] bisacodyl 10 mg rectal suppository 10 mg [place] DAILY PRN Constipation #0 ea 05/23/21 [Rx Confirmed 05/31/22] carvedilol 6.25 mg tablet 6.25 mg PO BID.WITH.MEALS #0 tabs 05/23/21 [Rx Confirmed 05/31/22] melatonin 5 mg tablet 10 mg PO DAILY@1999 #0 tabs 05/23/21 [Rx Confirmed 05/31/22] omeprazole [...] PO DAILY 06/14/21 [History Confirmed 05/31/22] omega 0-rqd-eaq-fish oil 1,200 mg (144 mg-216 mg) capsule [...] Thin but not cachectic. Daughter acts as trawl net maker. HEAD / FACE: Normocephalic. EYES: Pupils are [...] review her operative and pathological findings from [facility] where she had original hysterectomy in the [...] surgery. She was wheelchair-bound and in a senior care. 10/12/2021: [place] with initial visit 10/12/[address] Fernandez [...] by hospitalization for small bowel obstruction at [facility] which resolved with NG tube [...] plan. 05/31/2022: Kelly Oneil presents with her blpmycqg-rl-kju for follow-up. She no longer has any abdominal pain or distention and is eating a normal diet with no further episodes of small bowel obstruction. She does not have any detectable adenopathy by exam or by restaging 05/16/2022 CT abdomen and pelvis reviewed with the patient and her fwkkrgqb-zo-nkj today. She has unchanged cyst of the [...] develops clinical adenopathy. The patient and her mxtsdyzv-xo-wki are in agreement with this plan over [...] type symptoms. She is no longer in senior care and moved back into her home with [...] follow with symptoms and serial imaging. (7) Non-New Zealander speaking patient Patient expressed understanding and was able to give review of systems with limited New Zealander. Different family members served as translators and if we belt changer we will obtain a translation service for her follow-up appointments. - Time with Patient Time Spent with Patient (Follow Up Visit): 35 minutes - Review restaging images and reports, repeat Ca 125, symptoms and exam, surveillance plan Coordination of Care & Counseling Time: Greater than 50% of time spent with patient was for coordination of care (as documented) and zwjp-vh-iylg counseling of patient and/or family. Dictated By: Bonnie Hendricks MD DD/ 1446 Signed By: <Electronically signed by MD Bonnie Hendricks> 05/31/22 1600 [facility] Work Phone: 1(132) 852-758107-30-2022 Progress note Author Bonnie Hendricks [facility] January 14, 2022 12:30pm Note Date/Time January 13, 2022 2:33 pm [facility] [place] [address] Hem/Onc Follow Up Note - OP Signed Patient: Sabi Santamaria MR#: [id number] : 1945 Acct:[id number] Age/Sex: 76 / F Type: REG RCR Copies to: Merrill Doherty MD~ Subjective Date/Time of Service: Date of Service: 01/13/2022 Time of Service: 14:32 Chief Complaint: Patient is here for a follow up visit for pelvic mass and had alymph node biopsy ultrasound. She also was at [facility] for bowel obstruction and didnot have to do surgery and is doing well HPI: 01/13/2022: Sabi is accompanied by her daughter who acts as her trawl net maker. She was hospitalized at [facility] for a bowel obstruction about [...] 35-minute visit. 10/12/2021: This patient is primarily Surinamese-speaking and is accompanied by mary grace who acts as her trawl net maker. She is here for transfer of care from Dr. Fernandez who has left the practice. She was hospitalized in early April 2021 for fractured right hip--s/p hemiarthroplasty 04/21/2022. Prior hysterectomy in the early at [facility], ovaries intact. During that hospital [...] daughter presents with her. She is her trawl net maker. The patient had a hysterectomy at [facility]. I was told previously this was in [place]. Supposedly this was for uterine cancer. I do not know she had an oophorectomy. Below is the recent summary of findings while she was admitted after the hip fracture: Interval History: CA-125 is normal. Urology note and procedure is noted. Her CT scan is reviewedbelow: Patient: Sabi Santamaria MR#: [id number] : 1945 Acct:[id number] Age/Sex: 76 / F ADM Date: 1 Loc: 4 Room: 2P2394-0 Type: ADM IN Attending Dr: Jayden Abad [...] a 76-year-old female who does not speak New Zealander. She was found down on the floor after stroke. She has a history of a history of hysterectomy or some type of gynecologic surgery in [place] in the distant past. Her CT scan shows either a left-sided pelvic mass or left sided enlarged ovary. CA-125 is currently pending. As above she does not speak New Zealander. An shoe lay out planner is not in the room. Her CT [...] bisacodyl 10 mg rectal suppository 10 mg [place] DAILY PRN Constipation #0 ea 05/23/21 [Rx [...] PO DAILY 06/14/21 [History Confirmed 11/09/21] omega 3-nzc-ojp-fish oil 1,200 mg (144 mg-216 mg) capsule [...] Thin but not cachectic. Daughter acts as trawl net maker. HEAD / FACE: Normocephalic. EYES: Pupils are [...] RIGHT groin lymph nodes. Impression dictated by: Riceky Rey M.D.11/09/2021 3:49 PM Assessment and Plan (1) Pelvic mass This patient is a 76 year old lady previously evaluated by Dr. Fernandez in April and May 2021 after stroke and hip fracture. CT scan of the abdomen and pelvis showed a 4 cm mass near the left ovary. This plan was to review her operative and pathological findings from [facility] where she had original hysterectomy in the [...] surgery. She was wheelchair-bound and in a senior care. 10/12/2021: She transferred care to me with [...] by hospitalization for small bowel obstruction at [facility] which resolved with NG tube [...] type symptoms. She is no longer in senior care and moved back into her home with [...] for coordination of care (as documented) and cbul-bf-yfxr counseling of patient and/or family. Dictated By: Bonnie Hendricks MD DD/ 1432 Signed By: <Electronically signed by MD Bonnie Hendricks> 01/14/22 1230 [facility] Work Phone: 1([phone]) 847-768807-30-2022 NoteMR#: [id number] [facility] Pt. Name: Sabi Santamaria Admitted: 12/20/2021 Discharged: 12/29/2021 Date of : 1945 Physician: Minesh Daly M.D. DISCHARGE SUMMARY DISCHARGE ATTENDING: Minesh Daly M.D. PRINCIPAL DIAGNOSIS: Small bowel obstruction. SECONDARY DIAGNOSIS: None. HISTORY: This is 76-year-old female with past medical history of hypertension, hyperlipidemia, and CVA, was transferred from [facility] for small bowel obstruction. The patient [...] Davalos MD Date Trans: 01/14/2022 12:43 A/chen [id number] cc: Merrill Doherty M.D. [address] [facility] [id number] Evaluation note* Encounter Date Diagnosis Assessment [...] on mobility and with cane transition from [employer] Other 04-28-2022 Progress note Author Bonnie Hendricks [facility] October 13, 2021 11:29am Note Date/Time October 12, 2021 11: 53[facility] [place] [id number] Hem/Onc Follow Up Note - OP Signed Patient: Sabi Santamaria MR#: [id number] : 1945 Acct:[id number] Age/Sex: 76 / F Type: REG RCR Copies to: Merrill Doherty MD~ Subjective Date/Time of Service: Date of Service: 10/12/2021 Time of Service: 11:53 Chief Complaint: Patient is a former patient of Dr Fernandez here for a 4 month follow up with scans for review. HPI: 10/12/2021: This patient is primarily Surinamese-speaking and is accompanied by mary grace who acts as her trawl net maker. She is here for transfer of care from Dr. Fernandez who has left the practice. She was hospitalized in early April 2021 for fractured right hip--s/p hemiarthroplasty 04/21/2022. Prior hysterectomy in the early at [facility], ovaries intact. During that hospital [...] daughter presents with her. She is her trawl net maker. The patient had a hysterectomy at [facility]. I was told previously this was in [place]. Supposedly this was for uterine cancer. I do not know she had an oophorectomy. Below is the recent summary of findings while she was admitted after the hip fracture: Interval History: CA-125 is normal. Urology note and procedure is noted. Her CT scan is reviewedbelow: Patient: Sabi Santamaria MR#: [id number] : 1945 Acct:[id number] Age/Sex: 76 / F ADM Date: 1 Loc: 4 Room: 9E2962-4 Type: ADM IN Attending Dr: Jayden Abad [...] a 76-year-old female who does not speak New Zealander. She was found down on the floor after stroke. She has a history of a history of hysterectomy or some type of gynecologic surgery in [place] in the distant past. Her CT scan shows either a left-sided pelvic mass or left sided enlarged ovary. CA-125 is currently pending. As above she does not speak New Zealander. An shoe lay out planner is not in the room. Her CT [...] bisacodyl 10 mg rectal suppository 10 mg [place] DAILY PRN #0 ea 05/23/21 [Rx Confirmed [...] PO DAILY 06/14/21 [History Confirmed 10/12/21] omega 6-tdm-rus-fish oil 1,200 mg (144 mg-216 mg) capsule [...] Thin but not cachectic. Son acts as trawl net maker. HEAD / FACE: Normocephalic. EYES: Pupils are [...] review her operative and pathological findings from [facility] where she had original hysterectomy in the [...] surgery. She was wheelchair-bound and in a senior care. [place] care to [place] with initial visit 10/12/[address] Fernandez [...] type symptoms. She is no longer in senior care and moved back into her home with [...] for coordination of care (as documented) and nfca-yf-rtab counseling of patient and/or family. Dictated By: Bonnie Hendricks MD DD/ 1153 Signed By: <Electronically signed by MD Bonnie Hendricks> 10/13/21 1129 [facility] Work Phone: 1([phone]) 163-781601-12-2022 Evaluation note* Encounter Date Diagnosis Assessment Notes [...] as documented in the electronic medical record. [employer] Other 12-28-2021 Progress note Author Rachid Fernandez [facility] June 14, 2021 11:33am Note Date/Time June 14, 2021 11:28am [facility] at [address] [address] Hem/Onc Follow Up Note - OP Signed Patient: Sabi Santamaria MR#: Neelam [id number] : 1945 Acct:[id number] Age/Sex: 76 / F Type: REG RCR [...] daughter presents with her. She is her trawl net maker. The patient had a hysterectomy at [facility]. I was told previously this was in [place]. Supposedly this was for uterine cancer. I do not know she had an oophorectomy. Below is the recent summary of findings while she was admitted after the hip fracture: Interval History: CA-125 is normal. Urology note and procedure is noted. Her CT scan is reviewedbelow: Patient: Sabi Santamaria MR#: [id number] : 1945 Acct:[id number] Age/Sex: 76 / F ADM Date: 1 Loc: Room: 3D1613-9 Type: ADM IN Attending Dr: Jayden Abad [...] a 76-year-old female who does not speak New Zealander. She was found down on the floor after stroke. She has a history of a history of hysterectomy or some type of gynecologic surgery in [place] in the distant past. Her CT scan shows either a left-sided pelvic mass or left sided enlarged ovary. CA-125 is currently pending. As above she does not speak New Zealander. An shoe lay out planner is not inthe room. Her CT and reports are reviewed. She had a right femoral head fracture and is status post surgery. She is recovering well. Subjective/ROS - Narrative: She appears to be healing well. Talking with her daughter today the patient appears to be depressed. She is asking for medication. [facility] - Medical History Medical History: Medical History [...] bisacodyl 10 mg rectal suppository 10 mg [place] DAILY PRN #0 ea 05/23/21 [Rx] carvedilol 6.25 mg tablet 6.25 mg PO BID.WITH.MEALS #0 tab 05/23/21 [Rx] linaclotide 145 mcg capsule (Linzess) 145 mcg PO DAILY.0730A 30 Days #0 cap 05/23/21 [Rx] lorazepam 0.5 mg tablet 0.5 mg PO BID PRN 14 Days #28 tab 05/23/21 [Rx] melatonin 5 mg tablet 10 mg PO DAILY@2000 #0 tab 05/23/21 [Rx] omeprazole 20 mg [...] review her operative and pathological findings from [facility] where she has surgery. I reviewed the differential with the patient and daughter. At this time I want to review the operative and pathological findings and repeat the CT abdomen pelvis in 4 months. Her CA-125 is normal. The patient is recovering from her stroke and surgery. She is wheelchair-bound and in a senior care. (2) Depression The patient describes depressive type [...] for coordination of care (as documented) and zdgu-zy-rxfw counseling of patient and/or family. Dictated By: Rachid Fernandez MD DD/ 1126 Signed By: <Electronically signed by MD Rachid Fernandez> 06/14/21 1133 [facility] Work Phone: [phone]) 394-440605-22-2007 History general Narrative - Reported* Type Description Date Medical History Rheumatoid arthritis Medical History hypertension Medical History arthritis Medical History cancer Surgical History L knee scope SBS 11/06/2006 Surgical History hysterectomy Surgical History bone spurs usama. heels Surgical History L TKA JAB 01/27/2019 [facility] [employer] Other [facility] [employer] Other evaluation note* Diagnosis Onset Date Resolution Status Compression fracture of T9 vertebra chronic Depression chronic Pelvic mass chronic S/P hip hemiarthroplasty chr onic Ischemic stroke resolved [facility] Work Phone: Evaluation note* Diagnosis Onset Date Resolution Status Bowel wall thickening chroni c Compression fracture of T9 vertebra chronic Depression chronic Non-New Zealander speaking patient chronic Pelvic mass chronic S/P hip hemiarthroplasty chr onic Ischemic stroke resolved [facility] Work Phone: Evaluation note* Diagnosis Onset Date Resolution Status Bowel wall thickening chroni c Compression fracture of T9 vertebra chronic Depression chronic Non-New Zealander speaking patient chronic Pelvic mass chronic S/P hip hemiarthroplasty chr onic Ischemic stroke resolved Bowel wall thickening chroni c Non-New Zealander speaking patient chronic Pelvic mass chronic S/P hip hemiarthroplasty chr onic Ischemic stroke resolved [facility] Work Phone: Evaluation note* Diagnosis Ischemic stroke (CMS/HCC)- Primary Paresthesia Disturbance of skin sensation Hyperlipidemia, unspecified hyperlipidemia type (CMS/HCC) Primary hypertension (CMS/HCC) Unspecified essential hypertension Gait instability Abnormality of gait 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 documented in this encounter [facility] HealthcareEvaluation note* Diagnosis Ischemic stroke (CMS/HCC)- Primary Paresthesia Disturbance of skin sensation Hyperlipidemia, unspecified hyperlipidemia type (CMS/HCC) Primary hypertension (CMS/HCC) Unspecified essential hypertension Gait instability Abnormality of gait 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 documented in this encounter [facility] HealthcareEvaluation note* Diagnosis Ischemic stroke (CMS/HCC) documented in this encounter [facility] HealthcareEvaluation note* Diagnosis Onset Date Resolution Status Admit Date Bowel wall thickening chronic Dec 2:46pm Compression fracture of T9 vertebra chronic December 31, 2024 2:46pm Depression chronic December 31 2:46pm Non-New Zealander speaking patient chronic December 31, 2024 2:46pm Pelvic mass chronic December 31 2:46pm S/P hip hemiarthroplasty chronic December 31, 2024 2:46pm Ischemic stroke resolved December 2:46pm Bowel wall thickening chronic Dec 2:46pm Non-New Zealander speaking patient chronic December 31, 2024 2:46pm Pelvic mass chronic December 31 2:46pm S/P hip hemiarthroplasty chronic December 31, 2024 2:46pm Ischemic stroke resolved December 2:46pm [facility] Work Phone: Progress note Author Bonnie Hendricks [facility] January 14, 2022 12:30pm Note Date/Time January 13, 2022 2:33 pm [facility] [place] [address] Hem/Onc Follow Up Note - OP Signed Patient: Sabi Santamaria MR#: [id number] : 1945 Acct:[id number] Age/Sex: 76 / F Type: REG RCR Copies to: Merrill Doherty MD~ Subjective Date/Time of Service: Date of Service: 01/13/2022 Time of Service: 14:32 Chief Complaint: Patient is here for a follow up visit for pelvic mass and had alymph node biopsy ultrasound. She also was at [facility] for bowel obstruction and didnot have to do surgery and is doing well HPI: 01/13/2022: Sabi is accompanied by her daughter who acts as her trawl net maker. She was hospitalized at [facility] for a bowel obstruction about [...] 35-minute visit. 10/12/2021: This patient is primarily Surinamese-speaking and is accompanied by mary grace who acts as her trawl net maker. She is here for transfer of care from Dr. Fernandez who has left the practice. She was hospitalized in early April 2021 for fractured right hip--s/p hemiarthroplasty 04/21/2022. Prior hysterectomy in the early at [facility], ovaries intact. During that hospital [...] daughter presents with her. She is her trawl net maker. The patient had a hysterectomy at [facility]. I was told previously this was in [place]. Supposedly this was for uterine cancer. I do not know she had an oophorectomy. Below is the recent summary of findings while she was admitted after the hip fracture: Interval History: CA-125 is normal. Urology note and procedure is noted. Her CT scan is reviewedbelow: Patient: Sabi Santamaria MR#: [id number] : 1945 Acct:[id number] Age/Sex: 76 / F ADM Date: 1 Loc: Room: [address] [place] [address] Type: ADM IN Attending Dr: Jayden Abad [...] a 76-year-old female who does not speak New Zealander. She was found down on the floor after stroke. She has a history of a history of hysterectomy or some type of gynecologic surgery in [place] in the distant past. Her CT scan shows either a left-sided pelvic mass or left sided enlarged ovary. CA-125 is currently pending. As above she does not speak New Zealander. An shoe lay out planner is not in the room. Her CT [...] Negative for environmental allergies and food allergies. [facility] - History Attestation statement: The following information [...] bisacodyl 10 mg rectal suppository 10 mg [place] DAILY PRN Constipation #0 ea 05/23/21 [Rx Confirmed 11/09/21] carvedilol 6.25 mg tablet 6.25 mg PO BID.WITH.MEALS #0 tabs 05/23/21 [Rx Confirmed 11/09/21] melatonin 5 mg tablet 10 mg PO DAILY@1999 #0 tabs 05/23/21 [Rx Confirmed 11/09/21] omeprazole [...] PO DAILY 06/14/21 [History Confirmed 11/09/21] omega 3-yrs-vrs-fish oil 1,200 mg (144 mg-216 mg) capsule [...] Thin but not cachectic. Daughter acts as trawl net maker. HEAD / FACE: Normocephalic. EYES: Pupils are [...] review her operative and pathological findings from [facility] where she had original hysterectomy in the [...] surgery. She was wheelchair-bound and in a senior care. 10/12/2021: [place] with initial visit 10/12/[address] Fernandez [...] by hospitalization for small bowel obstruction at [facility] which resolved with NG tube [...] type symptoms. She is no longer in senior care and moved back into her home with [...] for coordination of care (as documented) and pvzo-pa-lyfo counseling of patient and/or family. Dictated By: Bonnie Hendricks MD DD/ 31 Signed By: <Electronically signed by MD Bonnie Hendricks> 01/14/22 1230 [facility] Work Phone: Progress note Author Bonnie Hendricks [facility] May 31, 2022 4:00pm Note Date/Time May 31, 2022 2:47pm [facility] [place] [address] Hem/Onc Follow Up Note - OP Signed Patient: Sabi Santamaria MR#: [id number] : 1945 Acct:[id number] Age/Sex: 77 / F Type: REG RCR Copies to: Merrill Doherty MD~ Subjective Date/Time of Service: Date of Service: 05/31/2022 Time of Service: 14:46 Chief Complaint: Patient is here today for 5 month follow up visit and go over labs and CT scan. No new concerns HPI: 05/31/2022: Sabi is here for about 4 month followup with daughter who acts as her trawl net maker. Since last visit patient has not had [...] with limited ability to speak and understand [place] Zealander. 01/13/2022: Sabi is accompanied by her daughter who acts as her trawl net maker. She was hospitalized at [facility] for a bowel obstruction about [...] 35-minute visit. 10/12/2021: This patient is primarily Surinamese-speaking and is accompanied by mary grace who acts as her trawl net maker. She is here for transfer of care from Dr. Fernandez who has left the practice. She was hospitalized in early April 2021 for fractured right hip--s/p hemiarthroplasty 04/21/2022. Prior hysterectomy in the early at [facility], ovaries intact. During that hospital [...] daughter presents with her. She is her trawl net maker. The patient had a hysterectomy at [facility]. I was told previously this was in [place]. Supposedly this was for uterine cancer. I do not know she had an oophorectomy. Below is the recent summary of findings while she was admitted after the hip fracture: Interval History: CA-125 is normal. Urology note and procedure is noted. Her CT scan is reviewedbelow: Patient: Sabi Santamaria MR#: [id number] : 1945 Acct:[id number] Age/Sex: 76 / F ADM Date: 1 Loc: 4N Room: 7I0794-0 Type: ADM IN Attending Dr: Jayden Abad [...] a 76-year-old female who does not speak New Zealander. She was found down on the floor after stroke. She has a history of a history of hysterectomy or some type of gynecologic surgery in [place] in the distant past. Her CT scan shows either a left-sided pelvic mass or left sided enlarged ovary. CA-125 is currently pending. As above she does not speak New Zealander. An shoe lay out planner is not in the room. Her CT and reports are reviewed. She had a right femoral head fracture and is status post surgery. She is recovering well. - Summary of Therapies Summary of Therapies: 1. History of a history of hysterectomy or some type of gynecologic surgery in [facility] in about 1979, ovaries intact--unclear [...] Negative for environmental allergies and food allergies. PMF - History Attestation statement: The following information [...] bisacodyl 10 mg rectal suppository 10 mg [place] DAILY PRN Constipation #0 ea 05/23/21 [Rx [...] PO DAILY 06/14/21 [History Confirmed 05/31/22] omega 6-jyo-agm-fish oil 1,200 mg (144 mg-216 mg) capsule [...] Thin but not cachectic. Daughter acts as trawl net maker. HEAD / FACE: Normocephalic. EYES: Pupils are [...] No obstruction is seen. Impression dictated by: Alireza Patel Jr.OMarino05/16/2022 3:56 PM Assessment and Plan (1) Pelvic mass This patient is a 77 year old lady previously evaluated by Dr. Fernandez in April and May 2021 after stroke and hip fracture. CT scan of the abdomen and pelvis showed a 4 cm mass near the left ovary. This plan was to review her operative and pathological findings from [facility] where she had original hysterectomy in the [...] surgery. She was wheelchair-bound and in a senior care. 10/12/2021: [place] transferred care to [place] with initial visit 10/12/[address] Fernandez [...] by hospitalization for small bowel obstruction at [facility] which resolved with NG tube [...] plan. 05/31/2022: Kelly Oneil presents with her mvepnvqn-jt-zix for follow-up. She no longer has any abdominal pain or distention and is eating a normal diet with no further episodes of small bowel obstruction. She does not have any detectable adenopathy by exam or by restaging 05/16/2022 CT abdomen and pelvis reviewed with the patient and her orbmurgp-ku-hin today. She has unchanged cyst of the [...] develops clinical adenopathy. The patient and her gtodfmfj-gp-eyn are in agreement with this plan over [...] type symptoms. She is no longer in senior care and moved back into her home with [...] follow with symptoms and serial imaging. (7) Non-New Zealander speaking patient Patient expressed understanding and was able to give review of systems with limited New Zealander. Different family members served as translators and if we belt changer we will obtain a translation service for her follow-up appointments. - Time with Patient Time Spent with Patient (Follow Up Visit): 35 minutes - Review restaging images and reports, repeat Ca 125, symptoms and exam, surveillance plan Coordination of Care & Counseling Time: Greater than 50% of time spent with patient was for coordination of care (as documented) and cbbp-sy-esju counseling of patient and/or family. Dictated By: Bonnie Hendricks MD DD/ [id number] Signed By: <Electronically signed by MD Bonnie Hendricks> 05/31/22 1600 [facility] Work Phone: Reoohu for referral (narrative)No reason for [facility] Work Phone: Rejoru for visit Narrative* Other Medical (Routine) - Closed Specialty Diagnoses / Procedures Referred By Contac t Referred To Contact Radiology Diagnoses Ischemic stroke (CMS/HCC) Procedures Vascular US carotid artery duplex bilateral Debra Walters NP [address] [place] [phone] Phone: tel: Referral ID Status Reason Start Date Expiration Date Visits Re quested Visits Authorized [id number] Closed 02/27/2024 08/25/2024 1 1 [facility] Healthcare Summary Purpose Family History No Family History Records Found Relationship Condition Age at Onset Recorded Date/T jorge luis sister Malignant neoplasm of ovary Unknown grandparent Malignant neoplasm of liver Unknown Relationship Condition Age at Onset Recorded Date/T jorge luis sister Malignant neoplasm of ovary Unknown grandparent Malignant neoplasm of liver Unknown mother Heart disease Unknown Advance Directives No Advanced Directives Records Found Advance Directive Response Recorded Date/ Time Advance [...] g Compression fracture of T9 vertebra Depression Non-New Zealander speaking patient Pelvic mass S/P hip hemiarthroplasty Ischemic stroke Chief Complaint PET SCAN F/U Reason for Visit Bowel wall thickenin g Compression fracture of T9 vertebra Depression Non-New Zealander speaking patient Pelvic mass S/P hip hemiarthroplasty Ischemic stroke Bowel wall thickening Non-New Zealander speaking patient Pelvic mass S/P hip hemiarthroplasty Ischemic stroke Chief Complaint Admit Date Unknown December 03, 2024 7:08 pm 1 yr f/u after CT December 31, 2024 2:46 pm Reason for Visit Admit Date Bowel wall thickening December 31, 2024 2: 46pm Compression fracture of T9 vertebra December 31, 2024 2:46pm Depression December 31, 2024 2:46 pm Non-New Zealander speaking patient December 31, 2024 2:46pm Pelvic mass December 31, 2024 2:46 pm S/P hip hemiarthroplasty December 31, 2024 2:46pm Ischemic stroke December 31, 2024 2:46 pm Reason for Referral Specialty Diagnoses / Procedures Referred By Contac t Referred To Contact Radiology Diagnoses Ischemic stroke (CMS/[facility]) Procedures Vascular US carotid artery duplex bilateral Debra Walters NP [address] [place] [phone] Referral ID Status Reason Start Date Expiration Date V isits Requested Visits Authorized [id number] Authorized 02/27/2024 08/25/2024 1 1 Additional Source Comments INFORMATION SOURCE (unrecogn ized section and content) DATE CREATED AUTHOR 09/11/2021 [facility] DATE CREATED AUTHOR AUTHOR'S ORGANIZ ATION 01/19/2022 [facility] DATE CREATED AUTHOR AUTHOR'S ORGANIZ ATION 09/20/2022 [facility] DATE CREATED AUTHOR AUTHOR'S ORGANIZ ATION 05/01/2024 [facility] EPIC DATE CREATED AUTHOR AUTHOR'S ORGANIZ ATION 12/08/2024 [facility] DATE CREATED AUTHOR AUTHOR'S ORGANIZ ATION 01/04/2025 [facility] REASON FOR VISIT (unrecogniz ed section and content) Reason Comments Follow-up Reason Comments Tingling History of stroke Care Teams (unrecognized sec tion and content) Team Status: Active Member Role Status Dates Merrill Doherty MD Primary Care Provider Active Team Status: Inactive Member Role Status Dates Bonnie Hoover PA-C Attending Provider Active Sta rt: December 03, 2024 End: December 03, 2024 Team Status: Inactive Member Role Status Dates Bonnie Hendricks MD Attending Provider Active Start: December 31, 2024 End: December 31, 2024 Merrill Doherty MD Primary Care Provider Active Start: December 31, 2024 End: December 31, 2024 Team Status: Active Member Role Status Dates [...] BE BASED ON THE PRIMARY CLINICAL RECORDS. [facility]. provides no warranty or guarantee of the accuracy or completeness of information in this document.
[2025-01-27 17:52] LABS: Glucose Urine UA NEGATIVE (NEGATIVE)
[2025-01-27 18:44] LABS: Cast Seen? NONE SEEN #/LPF (NONE SEEN); Crystals Seen? None Seen #/HPF (None Seen); Urine Culture Indicated ALREADY ORDERED
== END 2025-01-27 16:06 | disposition home or self-care (01) ==
LOC: LAB 16:07
PROVIDERS: PCP Family Medicine; Visit Provider Family Medicine
DX: R30.0 Dysuria (principal)
CPT/HCPCS: 81001; 87086; 87088; 87186

== ENCOUNTER 2025-06-14 18:30 | Emergency (ER) | payer MEDICARE, OTHER, SELFPAY ==
[2025-06-14 18:45] VITALS: BP 142/82; PULSE 103; TEMP 36.8; O2SAT 94; BMI 26.4
--- NOTE | 2025-06-14 19:16 | ED_ITS ---
HPI - Female Genitourinary General Chief complaint: Urogenital-Female Stated complaint: UTI Time Seen by Provider: 06/14/25 19:07 Source: patient Mode of arrival: Wheelchair Limitations: no limitations History of Present Illness HPI Narrative: cc - urinary symptoms Pt brought in by daughter for evaluation after the pt complained of decreased appetite today and had poor PO intake. Pt complains of feeing a little dizzy and told the daughter that urine has been foul smelling since yesterday. This afternoon the pt reported some discomfort with urination. No fever or chills. No abdominal pain, fklank pain or headache. No chest pain or shortness of breath. The daughter interprets for the patient who only speaks a little bit of Rwandan. Related Data Home Medications ?Medication ?Instructions ?Recorded ?Confirmed aspirin 81 mg chewable tablet 1 tab PO DAILY 01/04/23 06/14/25 (Aspirin Childrens) atorvastatin 80 mg tablet 80 mg PO .qhs 01/04/2306/14 cetirizine 10 mg tablet (24Hour 10 mg PO DAILY PRN all ergy symptoms 01/04/23 06/14/25 Allergy) melatonin 5 mg tablet 5 mg PO .HS PRN sleep 06/14/25 carvedilol 6.25 mg tablet 6.25 mg PO BID 07/08/2405/19 diclofenac sodium 75 mg 75 mg PO Q12H PRN pain 07/0806/14/25 tablet,delayed release multivitamin (Daily Multi-Vitamin 1 tab PO DAILY 06/1406/14/25 tablet) Previous Rx's ?Medication ?Instructions ?Recorded albuterol sulfate 90 mcg/actuation 2 puff inhalation Q 4H PRN Dyspnea 01/07/23 aerosol inhaler #8.5 grams ciprofloxacin HCl 500 mg tablet 500 mg PO BID #9 tabs 06/14/25 (Cipro) Allergies Allergy/AdvReac Type Severity Reaction Status Date / Time No Known Drug Allergies Allergy Verified 06/14/25 18:44 [facility] Medical History Surgical History (Updated 01/04/23 @ 13:49 by Jillian Ford) H/O: hysterectomy ?Z90.710 - Acquired absence of both cervix and uterus (ICD-10) Family History (Updated 07/08/24 @ 19:05 by Debra Johnson) Mother Family history of diabetes mellitus Family history of hypertension Social History (Updated 07/08/24 @ 19:06 by Debra Johnson) Within the past year, how often did you have a drink containing alcohol: never Within the past year, how often did you have six or more drinks on one occasion: never Score interpretation: A score less than 3 is consistent with normal alcohol consumption. Smoking status: Never smoker Second hand tobacco smoke exposure: No Non-prescribed substance use: denies use Previous occupational history: retired Known occupational exposures/hazards: No Highest level of school completed/degree received: 8th grade Do you want help with school or training: No Are you now , , , , never or living with a partner: In a typical week, how many times do you talk on the telephone with family, friends, or neighbors: 3 or more times per week How often do you get together with friends or relatives: 3 or more times per week How often do you attend baptism or mandaeism services: never Do you belong to any clubs or organizations such as baptism groups unions, fraternal or athletic groups, or school groups: no Total score: 1 Score interpretation: A score of less than or equal to 1 indicates the most socially isolated. Little interest or pleasure in doing things: not at all Feeling down, depressed, or hopeless: not at all Feel stressed/tense/nervous/anxious/difficulty sleeping: not at all Life stressors: unknown source of stress Due to disability, difficulty making decisions: No Do you think of yourself as: straight/heterosexual Gender Identity: female Exam Narrative Exam Narrative: Nurses notes and vital signs reviewed and patient is not hypoxic. afebrile General: Well-appearing and in no apparent distress. Skin: Warm, dry, no pallor noted. Head: Normocephalic, atraumatic. Neck: Supple, no meningismus. Eye: Pupils are equal, round and EOMI. No scleral icterus. Ears, Nose, Mouth, and Throat: Oral mucosa is slightly dry Cardiovascular: Tachycardia. Respiratory: No accessory muscle use or respiratory distress. Lungs are clear to auscultation, no wheezing, rales or rhonchi Back: No CVA tenderness Musculoskeletal: normal ROM, no calf or popliteal tenderness, no lower extremity edema/swelling GI: Abdomen is soft, non-distended. Normal bowel sounds. No abdominal or suprapubic masses appreciated. No tenderness to palpation. No rebound, guarding, or rigidity noted. Neurological: A&O x4. No cranial nerve dysfunction observed. No truncal ataxia. Moves all extremities. Sensation intact. Psychiatric: Cooperative and interactive. Normal mood and affect. Constitutional Vital Signs, click to edit/add: Last Vital Signs Temp 98.3 F 06/14/25 18:45 Pulse 103 H 06/14/25 18:45 Resp 16 06/14/25 18:45 BP 142/82 H 06/14/25 18:45 Pulse Ox 94 L 06/14/25 18:45 O2 Del Method Room Air 06/14/25 18:45 Course Vital Signs Vital signs: Vital Signs Temperature 98.3 F 06/14/25 18:45 Pulse Rate 103 H 06/14/25 18:45 Respiratory Rate 16 06/14/25 18:45 Blood Pressure 142/82 H 06/14/25 18:45 Pulse Oximetry 94 L 06/14/25 18:45 Oxygen Delivery Method Room Air 06/14/25 18:45 Temperature 98.3 F 06/14/25 18:45 Pulse Rate 103 H 06/14/25 18:45 Respiratory Rate 16 06/14/25 18:45 Blood Pressure 142/82 H 06/14/25 18:45 Pulse Oximetry 94 L 06/14/25 18:45 Oxygen Delivery Method Room Air 06/14/25 18:45 MDM - Female Genitourinary MDM Narrative Medical decision making narrative: Urine was obtained and sent for testing. I ordered the nurse to establish a peripheral IV, draw blood and give the patient a liter of normal saline IV fluid. Urinalysis reveals acute UTI the patient was started on Cipro -based on the patient's last urine culture which showed Pseudomonas aeruginosa. Patient instructed to follow-up with her primary care provider. Patient will be prescribed ischial Cipro to take at home. Blood test were unremarkable. Patient and family were informed of results and we discussed diagnosis and treatment plan. They had no questions. Lab Data Attestation: I reviewed the patient's lab results. Labs: Lab Results 06/14/25 06/14/25 Range/Units 19:32 19:55 WBC 9.1 (4.0-11.0) 10^3/uL RBC 4.43 (4.20-5.40) 10^6/uL Hgb 13.1 (12.0-16.0) g/dL Hct 39.9 (36.0-48.0) % MCV 90.1 (81.0-99.0) fL MCH 29.6 (26.7-34.0) pg MCHC 32.8 (29.9-35.2) g/dL RDW 15.1 H (11.0-15.0) % Plt Count 349 (150-450) 10^3/uL MPV 8.6 L (9.5-13.5) fL Neut % (Auto) 75.2 H (43.0-75.0) % Lymph % (Auto) 16.4 L (20.5-60.0) % Rowan % (Auto) 5.9 (1.7-12.0) % Eos % (Auto) 0.8 L (0.9-7.0) % Baso % (Auto) 0.3 (0.2-2.0) % Neut # (Auto) 6.8 H (1.4-6.5) 10^3/uL Lymph # (Auto) 1.5 (1.2-3.8) 10^3/uL Rowan # (Auto) 0.5 (0.3-0.8) 10^3/uL Eos # (Auto) 0.1 (0.0-0.7) 10^3/uL Baso # (Auto) 0.0 (0.0-0.1) 10^3/uL Abs Immat Gran (auto) 0.13 H (0.00-0.03) 10^3/uL Imm/Tot Granulo (auto) 1.4 H (0.0-0.5) % Sodium 138 (136-145) mmol/L Potassium 4.1 (3.5-5.1) mmol/L Chloride 101 (98-107) mmol/L Carbon Dioxide 28.9 (21.0-32.0) mmol/L Anion Gap 12.2 BUN 14.0 (7.0-18.0) mg/dL Creatinine 0.71 (0.55-1.02) mg/dL Est GFR ( Amer) >60 (>=60 mL/min/1.73m^2) Est GFR (Non-Af Amer) >60 (>=60 mL/min/1.73m^2) BUN/Creatinine Ratio 19.7 Glucose 117 H (74-106) mg/dL Calcium 9.4 (8.5-10.1) mg/dL Urine Color Yellow (YELLOW) Urine Clarity Cloudy A (CLEAR) Urine pH 8.5 (5.0-9.0) Ur Specific [place] 1.010 (1.005-1.025) Urine Protein 100 A (NEG/TRACE) mg/dL Urine Glucose (UA) Negative (NEGATIVE) mg/dL Urine Ketones Negative (NEGATIVE) mg/dL Urine Occult Blood Large A (NEGATIVE) Urine Nitrite Negative (NEGATIVE) Urine Bilirubin Negative (NEGATIVE) Urine Urobilinogen 0.2 (0.2-1.0) EU/dL Ur Leukocyte Esterase Large A (NEGATIVE) Urine RBC 10-20 A (0-2) #/HPF Urine WBC 20-50 A (NONE SEEN) #/HPF Ur Squamous Epith Cells None seen (NONE/RARE) #/LPF Urine Crystals None seen (None Seen) #/HPF Urine Bacteria Large A (NONE SEEN) #/HPF Urine Casts None seen (NONE SEEN) #/LPF Urine Mucus Small A (NONE SEEN) Ur [place] Indicated[place] [place] Discharge Chief Complaint: Urogenital-Female Clinical Impression: Acute UTI Patient Disposition: Home, Self-Care Time of Disposition Decision: 20:33 Prescriptions / Home Meds: New ciprofloxacin HCl [Cipro] 500 mg tablet 500 mg PO BID Qty: 9 0RF No Action melatonin 5 mg tablet 5 mg PO .HS PRN (Reason: sleep) aspirin [Aspirin Childrens] 81 mg tablet,chewable 1 tab PO DAILY atorvastatin 80 mg tablet 80 mg PO .qhs cetirizine [24Hour Allergy] 10 mg tablet 10 mg PO DAILY PRN (Reason: allergy symptoms) albuterol sulfate 90 mcg/actuation Hfa Aerosol Inhaler 2 puff inhalation Q4H PRN (Reason: Dyspnea) Qty: 8.5 0RF Patient Comments: son does not know if she has this carvedilol 6.25 mg tablet 6.25 mg PO BID diclofenac sodium 75 mg tablet,delayed release (DR/EC) 75 mg PO Q12H PRN (Reason: pain) multivitamin [Daily Multi-Vitamin] Tablet 1 tab PO DAILY Print Language: Persian Instructions: Urinary Tract Infection in Older Adults (ED) Referrals: Willi Doherty MD [Primary Care Provider, Family Practice] - 1 week
[2025-06-14] MEDS: 0.9 % SODIUM CHLORIDE 1,000 ML 999 ML IV (19:35)
[2025-06-14 19:57] LABS: Glucose Urine UA NEGATIVE (NEGATIVE)
[2025-06-14 19:59] LABS: Anion Gap 12.2; Blood Urea Nitrogen 14.0 mg/dL (7.0-18.0); Calcium 9.4 mg/dL (8.5-10.1); Carbon Dioxide 28.9 mmol/L (21.0-32.0); Chloride 101 mmol/L (98-107); Estimated GFR (African America >60 (>=60 mL/min/1.73m^2); Estimated GFR (Non-African Ame >60 (>=60 mL/min/1.73m^2); Glucose 117 mg/dL (74-106); Potassium 4.1 mmol/L (3.5-5.1); Sodium 138 mmol/L (136-145)
[2025-06-14 20:02] LABS: Hematocrit 39.9 % (36.0-48.0); Hemoglobin 13.1 g/dL (12.0-16.0); Immature Granulocytes Abs Auto 0.13 10^3/uL (0.00-0.03); Immature Granulocytes Pct Auto 1.4 % (0.0-0.5); Lymphocytes Absolute Auto 1.5 10^3/uL (1.2-3.8); Mean Corpuscular HGB Conc 32.8 g/dL (29.9-35.2); Mean Corpuscular Hemoglobin 29.6 pg (26.7-34.0); Mean Corpuscular Volume 90.1 fL (81.0-99.0); Platelet Count 349 10^3/uL (150-450); Red Blood Count 4.43 10^6/uL (4.20-5.40); White Blood Count 9.1 10^3/uL (4.0-11.0)
--- OUTSIDE RECORDS SUMMARY | 2025-06-14 20:03 | XMS_ITS | CCD ---
Author Organization [facility] Care Team Providers Care Trousseau Consultant Name Role Phone AvaGetachew ball Unavailable OBINNA GARRETT Referring Unavailable MERRILL BLEDSOE Primary Care Unavailable MINESH DALY Attending Unavailable MINESH DALY Admitting Unavailable MD Merrill Bledsoe Primary Care Provider [phone] MD Bonnie Hendricks Attending Provider [phone] MD Merrill Bledsoe Primary Care Provider [phone] MD Bonnie Hendricks Attending Provider DR OBINNA [...] COCO Pichardo, ROBINSON Admitting Unavailable MD Merrill Bledsoe Primary Care Provider [phone] MD Bonnie Hendricks Attending Provider MD Merrill Bledsoe Primary Care Provider [phone] MD Bonnie Hendricks Attending Provider [phone] MD Merrill Bledsoe Primary Care Provider MD Bonnie Hendricks Attending Provider [phone] DEBRA LEON Attending Unavailable DEBRA LEON Referring Unavailable DEBRA LEON Attending Unavailable Unavailable Primary Care Provider Unavailabl e HOY, MERRILL M Primary Care Unavailable HOY, MERRILL M Referring Unavailable HOY, MERRILL M Primary Care Unavailable HOY, MERRILL M Referring Unavailable HOY, MERRILL M Primary Care Unavailable HOY, MERRILL M Referring Unavailable HOY, MERRILL M Primary Care Unavailable Bonnie Hoover PA-C Attending Provider Bonnie Hendricks MD Attending Provider Merrill Bledsoe MD Primary Care Provider [phone] Merrill Bledsoe MD Attending Provider Bonnie Hoover Admitting Unavailable Bonnie Hoover Attending Unavailable Hoy, Merrill M Attending Unavailable Hoy, Merrill M Admitting Unavailable Hoy, Merrill M Primary Care Unavailable Bonnie Hendricks Admitting Unavailable Bonnie Hendricks Attending Unavailable Medications Current Medications MedicationDrug Class(es)DatesSig (Normalized)Sig (Original)acetaminophen 500 mg oral tablet (17 sources)Start: 13-66-9039iujf 1 tablet by mouth every eight hours as needed for painStart: 04-23-2021 End: 09-81-7047wzhf 2 tablets by mouth every eight hours as needed for pain Acetaminophen 500 mg Tablet Discontinued 1000 MG PO Q8H as needed for Fever Or Pain 0 April 12:00am May 23, 2021 3:52pmStart: 04-23-2021 End: 08-31-3773qnyw 1000 mg by mouth every eight hoursAcetaminophen Discontinued 1000 MG PO Q8H 0 April 23, 2021 12:00am May 23, 2021 3:52pmtake 1 capsule by mouth every six hoursAcetaminophen 500 MG 1 capsule as needed Orally every 6 hrs Activeaspirin 81 mg chewable tablet (20 sources)Platelet Aggregation Inhibitor, Nonsteroidal Anti-inflammatory Drug Start: 55-67-6447hksr 1 tablet by mouth twice dailyStart: 04-23-2021 End: 18-95-2233cvvo 1 tablet by mouth once dailyAspirin (Children's Aspirin) 81 mg Tablet,Chewable Discontinued 81 MG PO Daily 0 April 23941990:00am May 23, 2021 3:52pmtake 81 mg by mouth once dailyASPIRIN 81 PO Take 81 mg by mouth Daily ActiveASPIRIN 81 PO Aspir-81 Activeatorvastatin 80 mg oral tablet (20 sources)HMG-CoA Reductase InhibitorStart: 31-76-4804pnyw 1 tablet by mouth once daily at bedtimeStart: 04-23-2021 End: 81-73-0005rpjm 1 tablet by mouth once daily in the eveningAtorvastatin 80 mg Tablet Discontinued 80 MG PO Every evening 0 April 23, 2021 12:00am December 14, 2022 3:26pmcarvedilol 6.25 mg oral tablet (20 sources)alpha-Adrenergic Bryan, beta-Adrenergic BlockerStart: 12-13-2023 take 1 tablet by mouth twice dailyStart: 17-28-6241tjnv 1 tablet by mouth every twelve hoursCoreg 6.25 MG tablet Take 6.25 mg by mouth every 12 (twelve) hours 09/17/2023 ActiveStart: 12-14-2022 End: 10-74-0044yzpz 4 tablets by mouth twice daily at mealtimeCarvedilol 6.25 mg tablet Discontinued 25 MG PO Twice daily with meals December 14, 2022 3:26pm June 14, 2023 4:01pmStart: 12-14-2022 End: 12-44-8079xnio 25 mg by mouth twice daily at mealtimeCarvedilol Discontinued 25 MG PO Twice daily with meals December 14, 2022 3:26pm June 14, 2023 4:01pmStart: 05-23-2021 End: 26-97-8510fcpj 1 tablet by mouth twice daily at mealtimeCarvedilol 6.25 mg Tablet Discontinued 6.25 MG PO Twice daily with meals 0 May 23, 2021 1:00am December 14, 2022 3:26pmtake 1 tablet by mouth every twelve hoursCarvedilol 12.5 MG 1 tablet with food Orally Twice a day ActiveCentrum MultiGummies - (3 sources)Centrum MultiGummies - as directed Orally Activediclofenac sodium 75 mg delayed release oral tablet (12 sources)Nonsteroidal Anti-inflammatory DrugStart: 66-37-8931yolv 1 tablet by mouth twice dailyStart: 04-20-2021 End: 07-35-5010lgnt 1 tablet by mouth twice dailyDiclofenac Sodium 75 mg tablet,delayed release (DR/EC) Discontinued 75 MG PO Twice daily April 20, 2021 12:00am April 28, 2021 3:08pmhydroCHLOROthiazide 25 mg oral tablet (3 sources)Thiazide Diuretictake 1 tablet by mouth every twenty-four hours hydroCHLOROthiazide 25 MG 1 tablet in the morning Orally Once a day for 30 day(s) Activemeclizine hydrochloride 25 mg oral tablet (3 sources)Antiemetictake 1 tablet by mouth every twenty-four hoursMeclizine HCl 25 MG 1 tablet as needed Orally Once a day Activemelatonin 5 mg oral tablet (17 sources)Start: 03-62-0151tesg 2 tablets by mouth once dailyStart: 05-23-2021 take 10 mg by mouth once dailyMelatonin Active 10 MG PO DAILY@1999 0 May 23, 2021 1:00amtake 1 tablet by mouth at bedtimemelatonin 5 MG tablet Take 5 mg by mouth at bedtime ActiveMultiple Vitamins-Minerals (Centrum Silver Women 50+) tablet (10 sources)take 1 tablet by mouth once dailyMultiple Vitamins-Minerals (Centrum Silver Women 50+) tablet Take 1 tablet by mouth Daily ActiveMultivitamin (Multiple Vitamin) Tablet (7 sources)Start: 85-73-8127biws 1 tablet by mouth once dailyStart: 06-14-2021 take 1 tablet by mouth once dailyMultivitamin (Multiple Vitamin) Tablet Active 1 TAB PO Daily June 14, 2021 1:00am Complies with drug therapyStart: 69-49-6184zefi 1 tablet by mouth once dailyMultivitamin (Multiple Vitamin) Tablet Active 1 TAB PO Daily June 14, 2021 12:00amStart: 27-10-5876verd 1 tablet by mouth once dailyMultivitamin (Multiple Vitamin) Tablet Active 1 TAB PO Daily June 14, 2021 1:00am Completed/Discontinued Medications MedicationDrug Class(es)DatesSig (Normalized)Sig (Original)acetaminophen 325 mg / oxyCODONE hydrochloride 5 mg oral tablet (3 sources)Opioid AgonistStart: 73-26-4688nznk 1 tablet by mouth every four to six hours as needed for painPercocet 5-325 MG 1 tablet as needed Orally every 4- 6 hrs prn pain for 10 days Jan, Cdn-SpsdfhMlbsg-75 (3 sources)Aspir-81 *please review for potential _update for e-prescription and drug interaction check* Not-Takingbisacodyl 10 mg rectal suppository (7 sources)Stimulant LaxativeStart: 05-23-2021 End: 72-20-8346Ghopkomqd 10 mg Suppository Discontinued 10 MG AL Daily as needed for Constipation 0 May 23, 2021 1:00am December 14, 2022 3:26pmbusPIRone hydrochloride 5 mg oral tablet (10 sources)Start: 04-28-2021 End: 81-95-0053gnss 1 tablet by mouth twice dailyBuspirone 5 mg Tablet Discontinued 5 MG PO Twice daily 0 April 28, 2021 1:00am January 13, 2022 2:20pmcalcium lactate 100 mg oral capsule (8 sources)Start: 06-14-2021 End: 67-01-9688uako 100 mg by mouth twice dailyCalcium Lactate Discontinued 100 MG PO Twice daily June 14, 2021 1:00am June 14, 2023 4:01pmCalcium Lactate ActiveCalcium Lactate 100 mg calcium Tablet (2 sources)Start: 06-14-2021 End: 95-13-2503bxqg 1 tablet by mouth twice dailyCalcium Lactate 100 mg calcium Tablet Discontinued 100 MG PO Twice daily June 14, 2021 1:00amDecember 2022 4:01pmcetirizine hydrochloride 10 mg oral tablet (10 sources)Histamine-1 Receptor AntagonistStart: 04-20-2021 End: 29-43-3902yagb 1 tablet by mouth once dailyCetirizine (Zyrtec) 10 mg tablet Discontinued 10 MG PO Daily April 20, 2021 12:00am December 14, 2022 3:26pm chlorthalidone 25 mg oral tablet (7 sources)Thiazide-like DiureticStart: 04-23-2021 End: 59-70-7114lyng 1 tablet by mouth once dailyChlorthalidone 25 mg tablet Discontinued 25 MG PO Daily April 23, 2021 12:00am May 3:52pmCiprofloxacin (3 sources)Quinolone AntimicrobialCiprofloxacin HCl *please review for potential _update for e-prescription and drug interaction check* Not-Takingdocusate sodium 100 mg oral capsule (7 sources)Start: 04-28-2021 End: 37-22-6246pesg 1 capsule by mouth twice dailyDocusate Sodium (Dok) 100 mg Capsule Discontinued 100 MG PO Twice daily 0 April 28, 2021 1:00am May 23, 2021 3:52pmgabapentin 100 mg oral capsule (5 sources)Anti-epileptic AgentStart: 12-14-2022 End: 61-61-6210ujfh 1 capsule by mouth twice dailyGabapentin 100 mg Capsule Discontinued 100 MG PO Twice daily December 14, 2022 12:00am May 4:01pmirbesartan 300 mg oral tablet (7 sources)Angiotensin 2 Receptor BlockerStart: 04-20-2021 End: 73-42-8537gfpr 1 tablet by mouth once dailyIrbesartan (Avapro) 300 mg tablet Discontinued 300 MG PO Daily April 20, 2021 12:00am June 14, 2021 3:51pmlinaclotide 0.145 mg oral capsule (7 sources)Guanylate Cyclase-C AgonistStart: 05-23-2021 End: 52-36-5605ttnh 1 capsule by mouth once dailyLinaclotide (Linzess) 145 mcg Capsule Discontinued 145 MCG PO Daily at 0730 0 May 2311:00am June 14, 2021 3:51pmLORazepam 0.5 mg oral tablet (10 sources)BenzodiazepineStart: 05-23-2021 End: 53-00-8544zozk 1 tablet by mouth twice daily as needed for anxietyLorazepam 0.5 mg Tablet Discontinued 0.5 MG PO Twice daily as needed for Anxiety May 23, 2021 1:00am June 14, 2021 3:55pmtake 1 tablet by mouth every twenty-four hoursAtivan 0.5 MG 1 tablet at bedtime as needed Orally Once a day Activelosartan potassium 100 mg oral tablet (13 sources)Angiotensin 2 Receptor BlockerStart: 06-14-2021 End: 94-38-0399tfnh 1 tablet by mouth once dailyLosartan 100 mg Tablet Discontinued 100 MG PO Daily June 14, 2021 1:00am January 13, 2022 2:20pm Losartan Potassium *please review for potential _update for e-prescription and drug interaction check* Activemagnesium hydroxide 80 mg/ml oral suspension (14 sources)Start: 06-14-2021 End: 06-83-6038lwpc 1 mL by mouth twice daily as needed for constipation Magnesium Hydroxide (Milk Of Magnesia) 400 mg/5 mL Suspension Discontinued 15 ML PO Twice daily as needed for Constipation June 14, 2021 1:00am December 14, 2022 3:25pm no bowel movement in two daysStart: 06-14-2021 End: 09-97-3401hnie 1 mL by mouth twice dailyMagnesium Hydroxide (Milk Of Magnesia) 400 mg/5 mL Suspension Discontinued 15 ML PO Twice daily June 14, 2021 12:00am December 14, 2022 2:25pm no bowel movement in two daysStart: 06-14-2021 End: 94-56-3944hukl 1 mL by mouth twice dailyMagnesium Hydroxide (Milk Of Magnesia) 400 mg/5 mL Suspension Discontinued 15 ML PO Twice daily June 14, 2021 1:00am December 14, 2022 3:25pm no bowel movement in two daysStart: 52-87-7489ppsm 1 mL by mouth twice dailyMagnesium Hydroxide (Milk Of Magnesia) 400 mg/5 mL Suspension Active 15 ML PO Twice daily June 14, 2021 12:00am no bowel movement in two daysStart: 71-43-1437mmpb 1 mL by mouth twice daily Magnesium Hydroxide (Milk Of Magnesia) 400 mg/5 mL Suspension Active 15 ML PO Twice daily June 14, 2021 1:00am no bowel movement in two daysStart: 04-28-2021 End: 95-83-5621pgbs 1 mL by mouth twice daily as needed for constipation Magnesium Hydroxide (Milk Of Magnesia) 400 mg/5 mL Suspension Discontinued 30 ML PO Twice daily as needed for Constipation 0 April 28, 2021 1:00am May 23, 2021 3:52pmStart: 04-28-2021 End: 82-95-1782kocr 1 mL by mouth twice dailyMagnesium Hydroxide (Milk Of Magnesia) 400 mg/5 mL Suspension Discontinued 30 ML PO Twice daily 0 April 28, 2021 12:00am May 23, 2021 2:52pmStart: 04-28-2021 End: 38-23-9590ghrt 1 mL by mouth twice dailyMagnesium Hydroxide (Milk Of Magnesia) 400 mg/5 mL Suspension Discontinued 30 ML PO Twice daily 0 April 28, 2021 1:00am May 23, 2021 3:52pmmeloxicam 15 mg oral tablet (3 sources)Nonsteroidal Anti-inflammatory DrugStart: 00-11-1890lrnh 1 tablet by mouth after mealtime as neededMeloxicam 15 MG 1 tablet Orally 1QD PC PRN for 30 day(s) October, Not-TakingOmega 5-Mqb-Bib-Fish Oil (Fish Oil) 1,200 (144- 216) mg Capsule (7 sources)Start: 06-14-2021 End: 05-19-3525ouhy 1 capsule by mouth once dailyOmega 4-Vct-Iwx-Fish Oil (Fish Oil) 1,200 (144-216) mg Capsule Discontinued 1 CAP PO Daily 2020 1:00am June 14, 2023 4:01pmStart: 06-14-2021 End: 72-29-3920mwrj 1 capsule by mouth once dailyOmega 2-Ggk-Evj-Fish Oil (Fish Oil) 1,200 (144-216) mg Capsule Discontinued 1 CAP PO Daily 2020 12:00am June 14, 2023 3:01pmStart: 67-88-4358tygb 1 capsule by mouth once dailyOmega 3-Inr-Hga-Fish Oil (Fish Oil) 1,200 (144-216) mg Capsule Active 1 CAP PO Daily May 12:00amStart: 29-88-9904hxgk 1 capsule by mouth once dailyOmega 1-Ean-Vwq-Fish Oil (Fish Oil) 1,200 (144-216) mg Capsule Active 1 CAP PO Daily May 1:00amomeprazole 20 mg delayed release oral capsule (10 sources)Proton Pump InhibitorStart: 05-23-2021 End: 80-68-9047mdpl 2 capsules by mouth once daily at breakfastOmeprazole 20 mg Capsule,Delayed Release(Dr/Ec) Discontinued 40 MG PO Daily with breakfast 0 May 23, 2021 1:00am December 14, 2022 3:25pmStart: 05-23-2021 End: 75-67-5729tdul 40 mg by mouth once daily at breakfastOmeprazole Discontinued 40 MG PO Daily with breakfast 0 May 23, 2021 1:00am December 14, 2022 3:25pmtake 1 capsule by mouth once dailyOmeprazole 20 MG 1 capsule 30 minutes before morning meal Orally Once a day ActiveoxyCODONE hydrochloride 5 mg oral tablet (7 sources)Opioid AgonistStart: 04-23-2021 End: 93-48-4414whqc 1 tablet by mouth every four hours as needed for pain Oxycodone 5 mg Tablet Discontinued 5 MG PO Every 4 hours as needed for pain 0 April 23, 2021 May 23, 2021 3:52pmpolyethylene glycol 3350 49364 mg powder for oral solution (7 sources)Osmotic LaxativeStart: 06-14-2021 End: 67-38-0775Gcafimgafejx Glycol 3350 (Miralax) 17 gram Powder In Packet Discontinued 17 GM PO Daily June 14, 2021 1:00am December 14, 2022 3:25pm Sennosides (Senna Lax) 8.6 mg Tablet (5 sources)Start: 04-23-2021 End: 14-09-2964fpqd 2 tablets by mouth twice dailySennosides (Senna Lax) 8.6 mg Tablet Discontinued 17.2 MG PO Twice daily 0 April 22, 2021 11:00pm December 14, 2022 2:25pmStart: 04-23-2021 End: 51-09-9716gova 2 tablets by mouth twice dailySennosides (Senna Lax) 8.6 mg Tablet Discontinued 17.2 MG PO Twice daily 0 April 23, 2021 12:00am December 14, 2022 3:25pmStart: 14-03-1174jlez 2 tablets by mouth twice dailySennosides (Senna Lax) 8.6 mg Tablet Active 17.2 MG PO Twice daily April 22, 2021 11:00pmStart: 58-62-6617sxvf 2 tablets by mouth twice dailySennosides (Senna Lax) 8.6 mg Tablet Active 17.2 MG PO Twice daily April 23, 2021 12:00am sennosides, skilled nursing 8.6 mg oral tablet (2 sources)Start: 04-23-2021 End: 24-14-1348vttx 2 tablets by mouth twice dailySennosides (Senna Lax) 8.6 mg Tablet Discontinued 17.2 MG PO Twice daily 0 April 23, 2021 12:00am December 14, 2022 3:25pmStool Softener (3 sources)Stool Softener *please review for potential _update for e- prescription and drug interaction check* Not-Takingsucralfate 100 mg/ml oral suspension (7 sources)Aluminum ComplexStart: 05-23-2021 End: 75-87-3808ymtx 1 g by mouth once before mealtime as neededSucralfate 100 mg/mL Suspension Discontinued 1 GM PO 3x/Day before meals & bedtime as needed for Sore Throat 0 May 23, 2021 1:00am January 13, 2022 2:21pmStart: 05-23-2021 End: 71-11-2355sqif 1 g by mouth once before mealtimeSucralfate Discontinued 1 GM PO 3x/Day before meals & bedtime 0 May 23, 2021 12:00am 2021 1:21pmStart: 05-23-2021 End: 55-74-7518ayyh 1 g by mouth once before mealtimeSucralfate Discontinued 1 GM PO 3x/Day before meals & bedtime 0 May 23, 2021 1:00am January 13, 2022 2:21pmtemazepam 15 mg oral capsule (7 sources)BenzodiazepineStart: 05-23-2021 End: 50-72-8032vczk 1 capsule by mouth once dailyTemazepam 15 mg Capsule Discontinued 15 MG PO DAILY@1999May 23, 2021 1:00am June 14, 2021 3:52pmtraMADol hydrochloride 50 mg oral tablet (10 sources)Opioid AgonistStart: 04-28-2021 End: 01-10-9261xziu 1 tablet by mouth every eight hours as needed for pain Tramadol 50 mg Tablet Discontinued 50 MG PO Every 8 hours as needed for Pain 0 April 28, 2021 1:00am May 23, 2021 3:52pmStart: 42-14-7271lkny 1 tablet by mouth once daily at bedtime as neededtraMADol HCl 50 MG 1 tablet as needed Orally qhs for 30 days October, ActiveWalker - (3 sources)Start: 15-94-6253Tcmdqm - Front Wheeled Walker as directed SP LEFT TOTAL KNEE REPLACEMENT for 999 days *please review for potential _update for e- prescription and drug interaction check* Height: 61inWeight: 155lb 07 Jan, 2019 Not-Taking Problems Active Problems Problem ClassificationProblemDateDocumented DateEpisodic/ChronicAcute cerebrovascular disease (20 sources)Ischemic stroke; Translations: [Cerebral infarction, unspecified] Onset: 916809-45-1797TepgwccGjhgo posthemorrhagic anemia (7 sources)Acute posthemorrhagic anemia; Translations: [Acute posthemorrhagic anemia]75-82-4266QgfaabxqXddqhmw disorders (7 sources)Anxiety; Translations: [Anxiety disorder, unspecified]06-14-2021 ChronicCancer of ovary (8 sources)History of malignant neoplasm of ovary; Translations: [Personal history of malignant neoplasm of ovary]48-27-4716SccnmhybUeejpm of uterus (1 source)Personal history of malignant neoplasm of other parts of uterus; Translations: [PERS HX MAL NEOPLSMOTH PART UTRUS]Onset: 16-98-3414Rejuwznv Deficiency and other anemia (7 sources)Anemia; Translations: [Anemia, unspecified]31-73-3971QrtiancvItupmjdr of white blood cells (1 source)Other neutropenia; Translations: [OTHER NEUTROPENIA]Onset: 12-12-2021 ChronicDisorders of lipid metabolism (16 sources)Hyperlipidemia; Translations: [Hyperlipidemia, unspecified]Onset: 406092-30-4388RjfmqghGatgjjfwqj disorders (18 sources)Diffuse spasm of esophagus; Translations: [Dyskinesia of esophagus] Onset: 929459-51-5887PbrvjvdFkkazgklu hypertension (20 sources)Hypertensive disorder; Translations: [Essential (primary) hypertension]Onset: 932828-13-8737RsintfyJpifo and electrolyte disorders (10 sources)Hyponatremia; Translations: [Hypo-osmolality and hyponatremia]Onset: 472659-45-3950ZawldjfxQajthlpo of neck of femur (hip) (9 sources)Unspecified fracture of head of right femur, subsequent encounter for closed fracture with routine healing; Translations: [Fracture of neck of femur] Onset: 06-29-2021 Resolved: 16-02-6809FsynfqhvWqxkpsdjhzxtp symptoms and ill-defined conditions (18 sources)Iván hematuria; Translations: [Gross hematuria]Onset: 09-16-2022 75-19-1017GrbrctilTulwozo and fatigue (11 sources)Fatigue; Translations: [Chronic fatigue, unspecified]Onset: 870081-56-2957WvcrlssPybriaj and fatigue (8 sources)Right hemiparesis; Translations: [Weakness]Onset: 04-11-2022 43-30-2205KeayfjabQwol disorders (14 sources)Depressive disorder; Translations: [Depression]40-86-8925Cflmnwn Osteoarthritis (17 sources)Osteoarthritis of elbow; 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, upper arm] Onset: 850148-96-1043WznsitaWzoqkvurbnrb (7 sources)Osteoporosis; Translations: [Age-related osteoporosis without current pathological fracture]70-68-9251JpfsfqhCziwe aftercare (1 source)Other nursing home (current) drug therapy; Translations: [OTH SEMICONDUCTOR WAFERS TESTER CURRENT DRUG THERAPY]Onset: 85-60-4074KjfuqvdfRkanb aftercare (1 source)snf (current) use of aspirin; Translations: [SEMICONDUCTOR WAFERS TESTER CURRENT USE OF ASPIRIN]Onset: 01-17-0436SxayigfaKwdkj circulatory disease (1 source)Personal history of transient ischemic attack (TIA), and cerebral infarction without residual deficits; Translations: [PERS HX TIA AND CI NO RESID DEFICIT]Onset: 99-01-8242HlpxlfabFmimx circulatory disease (2 sources)History of cerebrovascular accident due to ischemia; Translations: [Personal history of transient ischemic attack (TIA), and cerebral infarction without residual deficits]25-79-0599VvkslaasVsxdt connective tissue disease (3 sources)Artificial knee joint present; Translations: [Presence of unspecified artificial knee joint]ChronicOther connective tissue disease (10 sources)History of total knee arthroplasty; Translations: [Presence of left artificial knee joint]58-43-8358UyxqbkuBytqy connective tissue disease (11 sources)History of repair of hip joint; Translations: [Presence of unspecified artificial hip joint]19-29-7960SwyivcuOyuqy connective tissue disease (7 sources)Presence of unspecified artificial hip joint; Translations: [Hip joint replacement]Onset: 664377-85-4322WgegqhvIzwqg connective tissue disease (1 source)Presence of right artificial hip joint; Translations: [PRESENCE RIGHT ARTIFICIAL HIP JOINT]Onset: 99-80-8713JfmtqfeOiwkh connective tissue disease (7 sources)Rhabdomyolysis; Translations: [Rhabdomyolysis]21-02-2521KvmmpgytGjgyl diseases of kidney and ureters (1 source)Other specified disorders of kidney and ureter; Translations: [OTHER SPEC DISORDERS KIDNEY URETER]Onset: 62-38-6399LjkkbavQtexe diseases of kidney and ureters (7 sources)Cyst of kidney; Translations: [Cyst of kidney, acquired]06-14-2021 EpisodicOther ear and sense organ disorders (1 source)Unspecified hearing loss, unspecified ear; Translations: [UNS HEARING LOSS UNSPECIFIED EAR]Onset: 33-27-6805QcsnwvoSosaz ear and sense organ disorders (15 sources)Hearing loss of left ear; Translations: [Unspecified hearing loss, left ear]Onset: 365338-93-6805EweyrtsTbjcz fractures (9 sources)Compression fracture of thoracic spine; Translations: [Wedge compression fracture of T9-T10 vertebra, initial encounter for closed fracture] 31-21-1198MdyihgesHifoy fractures (5 sources)Wedge compression fracture of T9-T10 vertebra, initial encounter for closed fracture; Translations:[Closed fracture of dorsal [thoracic] vertebra without mention of spinal cord injury]76-74-9940YpjdvitnUvyoh gastrointestinal disorders (10 sources)Dysphagia; Translations: [Dysphagia, unspecified]14-11-0414Fnepjjdn Other gastrointestinal disorders (11 sources)Pelvic mass; Translations: [Intra-abdominal and pelvic swelling, mass and lump, unspecified site]30-89-2799YepuibmjOgykr gastrointestinal disorders (7 sources)Constipation; Translations: [Constipation, unspecified]06-14-2021 EpisodicOther gastrointestinal disorders (6 sources)Intra-abdominal and pelvic swelling, mass and lump, unspecified site; Translations: [Abdominal or pelvic swelling, mass, or lump, unspecified site] 23-48-6815ApvzaihcBbfvy gastrointestinal disorders (9 sources)Disorder of colon; Translations: [Disease of intestine, unspecified] 80-24-4874IbecjkutPuumb gastrointestinal disorders (4 sources)Disease of intestine, unspecified; Translations: [Other specified disorders of intestine]16-91-9846WixskayoHllbl gastrointestinal disorders (1 source)Other intra-abdominal and pelvic swelling, mass and lump; Translations: [Other intra-abdominal and pelvic swelling, mass and lump]Onset: 14-72-9224OagdvpnsFqpom lower respiratory disease (7 sources)Multiple nodules of lung; Translations: [Other nonspecific abnormal finding of lung field]56-64-6928OcuzqpsuFhlig nervous system disorders (3 sources)Chronic pain; Translations: [Other chronic pain]ChronicOther nervous system disorders (3 sources)Difficulty walking; Translations: [Difficulty in walking, not elsewhere classified]ChronicOther nervous system disorders (1 source)Disorder of sleep-wake cycle; Translations: [Circadian rhythm sleep disorder, unspecified type]54-29-6844OleeepwIpslc nervous system disorders (6 sources)Abnormal circadian rhythm; Translations: [Circadian rhythm sleep disorder, unspecified type]46-46-1976NjmhipsSzgnc non-traumatic joint disorders (3 sources)Pain in elbow; Translations: [Elbow pain]EpisodicOther non-traumatic joint disorders (7 sources)Hip pain; Translations: [Pain in right hip]12-86-9197MbajnrgqOosjn nutritional; endocrine; and metabolic disorders (1 source)Obesity, unspecified; Translations: [OBESITY UNSPECIFIED]Onset: 04-06-1985LdiytnfKzomurkz codes; unclassified (1 source)Acquired absence of both cervix and uterus; Translations: [ACQUIRED ABSENCE BOTH CERVIX AND UTERUS]Onset: 92-33-5652NnhoqomuLnlgobhb codes; unclassified (9 sources)Language spoken - finding; Translations: [Other specified health status]32-05-6551PgnuzoblRwpimaqw codes; unclassified (4 sources)Other specified health status; Translations: [Mental and behavioral problems with communication [including speech]]37-60-5055IcafpizoZpeivuyxsd arthritis and related disease (11 sources)Rheumatoid arthritis; Translations: [Rheumatoid arthritis, unspecified]Onset: 463126-05-0427OnwbmlgNocbnjagdnyc (1 source)CONTACT W/AND (SUSP) EXPOS COVID-19; Translations: [CONTACT W/AND (SUSP) EXPOS COVID-19]Onset: 20-68-8950Xypktbgqrlvm (1 source)OPEN WOUND RT INDEX FINGEROnset: 06-34-2435Yivsbte tract infections (5 sources)Urinary tract infection, site not specified; Translations: [Tubulo- interstitial nephritis, not specified as acute or chronic]Onset: 03-20-2022 Episodic Past or Other Problems Problem ClassificationProblemDateDocumented DateEpisodic/ChronicAbdominal pain (4 sources)Unspecified abdominal pain; Translations: [UNSPECIFIED ABDOMINAL PAIN]Onset: 14-86-8091GdqspwjwVnhvw and unspecified renal failure (1 source)Acute kidney failure, unspecified; Translations: [ACUTE KIDNEY FAILURE UNSPECIFIED]Onset: 46-58-5346HqdurtmyNmloxiy dysrhythmias (1 source)Tachycardia, unspecified; Translations: [TACHYCARDIA UNSPECIFIED] Onset: 43-85-1884KvlpbbgaAnszeookly associated with dizziness or vertigo (1 source)Dizziness and giddiness; Translations: [DIZZINESS AND GIDDINESS]Onset: 72-83-3860VzpyyaakNnczfqkuyn and other anemia (1 source)Iron deficiency anemia, unspecified; Translations: [IRON DEFICIENCY ANEMIA UNSPECIFIED]Onset: 85-08-2105MlyxghdbVofpsloc mellitus without complication (1 source)Hyperglycemia, unspecified; Translations: [HYPERGLYCEMIA UNSPECIFIED] Onset: 65-52-2171MpogwrjyPgozxpsyeh obstruction without hernia (1 source)Unspecified intestinal obstruction, unspecified as to partial versus complete obstruction; Translations: [UNS INTEST OBS UNS PART VS CMPL OBS]Onset: 05-08-9179TkytzuvtVgat wounds of extremities (1 source)Laceration without foreign body of right index finger without damage to nail, initial encounter; Translations: [Laceration without foreign body of right index finger without damage to nail, initial encounter]Onset: 05-24-2024 EpisodicOther circulatory disease (1 source)Hypotension, unspecified; Translations: [HYPOTENSION UNSPECIFIED] Onset: 07-72-9864AcpqktwgOrlvp injuries and conditions due to external causes (1 source)Laceration - injuryOnset: 34-74-0847EqammhahTeogg lower respiratory disease (1 source)Acute respiratory distress; Translations: [ACUTE RESPIRATORY DISTRESS] Onset: 30-10-8851DwhbmnxoLbqzc lower respiratory disease (1 source)Hypoxemia; Translations: [HYPOXEMIA]Onset: 41-83-0860XnibzmgjZynbo nervous system disorders (15 sources)Abnormal gait; Translations: [Unsteadiness on feet]Onset: 12-27-2023 29-89-9988BfsahcpuEcqod nervous system disorders (11 sources)Paresthesia of hand ; Translations: [Paresthesia of skin]Onset: 014769-26-5368BmlvoburKredn nervous system disorders (15 sources)Paresthesia; Translations: [Paresthesia of skin]Onset: 12-27-2023 57-74-8093ZfokfzjqHyrob nutritional; endocrine; and metabolic disorders (1 source)Body mass index (BMI) 25.0-25.9, adult; Translations: [BODY MASS INDEX BMI 25.0-25.9 ADULT]Onset: 88-92-1718ZicwvzopCajsc screening for suspected conditions (not mental disorders or infectious disease) (1 source)Elevated C-reactive protein (CRP); Translations: [ELEVATED C-REACTIVE PROTEIN CRP]Onset: 56-25-0297PadwhlfwLeekdmhy codes; unclassified (3 sources)Other specified postprocedural states; Translations: [OTH SPECIFIED POSTPROCEDURAL STATES]Onset: 06-29-2021 Resolved: 26-46-0790TnekqkzsBxmlsiwcsr (except in labor) (5 sources)Sepsis due to Escherichia coli [E. coli]; Translations: [Severe sepsis without septic shock]Onset: 72-81-2882Cjsmhkop Results Test NameValueInterpretationReference RangeFacilityUrine Cultureon 01-27-2025 Bacteria identified Cx Nom (U)ORGANISM: Pseudomonas aeruginosa (O:PSEAER) [place] Count 75,000 Aerobic MAHENDRA Charge (NMIC56) SUSCEPTIBILITY ORGANISM: O:PSEAER ANTIBIOTIC INTERPRETATION MAHENDRA Amikacin S <16 Aztreonam I <4 Cefepime S <2 Ceftazidime I 4 Ceftazidime/Avibactam S <4 Ceftolozane/Tazobactam S <2 Ciprofloxacin S <0.25 Gentamicin S 4 Levofloxacin S <0.5 Meropenem S <1 Piperacillin/Tazobactam I <8 Tobramycin S <2 S = SUSCEPTIBLE I = INTERMEDIATE R = RESISTANT BLANK = DATA NOT AVAILABLE, OR DRUG NOT ADVISABLE OR TESTED R* = RESISTANCE DUE TO EXTENDED SPECTRUM BETA-LACTAMASES ESBL = EXTENDED SPECTRUM BETA-LACTAMASE TFG = THYMIDINE-DEPENDENT STRAIN SHANIQUA = BETA-LACTAMASE POSITIVE IB = INDUCIBLE BETA-LACTAMASE. APPEARS IN PLACE OF 'S' WITH SPECIES KNOWN TO POSSESS INDUCIBLE BETA-LACTAMASES. POTENTIALLY THEY MAY BECOME RESISTANT TO ALL B-LACTAM DRUGS. PERFORMED BY: [place] [address] PATHOLOGIST ORNAMENTAL RAIL INSTALLER CARMEN JEFFERSON M.D.NormalHca Florida Twin Cities Hospital Physician GroupComment on above: Performed By: #### CUU #### [place] [address] [place] 125on 56-08-1012PHDILL ANTIGEN 15424.20.0 - 38.1NOMS HealthcareComment on above:[employer] Electrochemiluminescence Immunoassay (ECLIA) Values obtained with different assay methods or kits cannot be used interchangeably. Results cannot be interpreted as absolute evidence of the presence or absence of malignant disease. Performed at: [address] [id number] [employer] Operator: Adrian Coello PhD, Phone: [phone] [facility] W Auto Differential panel (Bld)on 79-80-8073Fomydinly (Bld) [#/Vol]0 10*3/uL0.0 - 0.2 10*3/uLNOMS HealthcareBasophils/100 WBC Manual cnt (Syn fld)0.5 %.[facility] HealthcareEosinophils (Bld) [#/Vol]0.3 10*3/uL0.0 - 0.45 10*3/uLNOMS HealthcareEosinophils/100 WBC Manual cnt (Syn fld)4.7 %.[facility] CenterErythrocyte distribution width (RBC) [Ratio]16.5 %High11.9 - 15.3 % [facility] CenterHematocrit (Bld) [Volume fraction]35.4 %34.0 - 46.4 %[facility] CenterHemoglobin (Bld) [Mass/Vol]11.7 g/dLLow11.8 - 15.4 g/dLCapital Region Medical Center Interpretation and review of laboratory resultsAbnormalCapital Region Medical Center Lymphocytes (Bld) [#/Vol]2.1 10*3/uL1.00 - 4.8 10*3/uLNOMS Healthcare Lymphocytes/100 WBC Manual cnt (Syn fld)35 %.[facility] CenterMCH (RBC) [Entitic mass]28.8 pg24.7 - 34.3 pgCapital Region Medical CenterMCHC (RBC) [Mass/Vol]33.2 g/dL32.0 - 35.0 g/dLCapital Region Medical CenterMCV (RBC) [Entitic vol]86.7 fL80 - 100 fLCapital Region Medical Center Monocytes (Bld) [#/Vol]0.4 10*3/uL0.0 - 0.8 10*3/uLNOVA Healthcare Monocytes+Macrophages/100 WBC Manual cnt (Syn fld)6.9 %.[facility] Neutrophils (Bld) [#/Vol]3.2 10*3/uL1.8 - 7.7 10*3/uLNOMS Healthcare Neutrophils/100 WBC Manual cnt (Syn fld)52.9 %.[facility] CenterNRBC0.2 /100{WBC}0 - 0.5 /100{WBC}[facility] HealthcarePlatelet mean volume (Bld) [Entitic vol]6.8 fL6.3 - 10.7 fLINTERMOUNTAIN HEALTHCARE HealthcarePlatelets (Bld) [#/Vol]337 10*3/uL150 - 450 10*3/uLNOMS HealthcareRBC LM.HPF (Urine sed) [#/Area]4.08 10*6/uL3.60 - 5.00 10*6/uLNOMS HealthcareWBC (Bld) [#/Vol]6 10*3/uL3.8 - 11.6 10*3/uLNOMS HealthcareWBC LM.HPF (Urine sed) [#/Area]6 [CFU]/mL3.8 - 11.6 [CFU]/mLNOMS [facility] abdomen pelvis w conon 32-58-0437KZ abdomen pelvis w [facility] [address] [place] [id number] Scan Report Signed Patient: Sabi Santamaria MR#: [id number] : 1945 Acct:[id number] Age/Sex: 79 / F ADM Date: 12/09/24 Loc: XT Room: Type: [facility] RCR Attending Dr: Bonnie Hendricks MD [...] 4.1 x 2.5 cm .. Uterus absent Peritoneum/Retroperitoneum:No free air, free fluid or lymphadenopathy. No omental or peritoneal disease is seen.[ Abd wall/Bones: No suspicious lesion. Similar anterolisthesis L5 on S1 multilevel degenerative changes predominantly involving the lumbar facet joints. CT/CT abdomen pelvis w con IMPRESSION: No CT evidence of progression of disease. Stable left adnexal mass. Impression dictated by: Luis Moya M.D. 12/09/2024 9:55 PM Dictation Location: [place] [address] Transcribed By: [facility] 12/09/242154 Dictated By: Luis Moya MD 12/09/242148 Signed By: 12/09/242154[facility] Physician [facility] SystemCancer Antigen 125on 12-09-2024 Cancer Antigen 21481.7Eojoqr2.0-38.1The [facility] Physician GroupComment on above:Result Comment: [employer] Electrochemiluminescence Immunoassay (ECLIA) Values obtained with different assay methods or kits cannot be used interchangeably. Results cannot be interpreted as absolute evidence of the presence or absence of malignant disease. Performed at: [address] [id number] [employer] Operator: Adrian Coello PhD, Phone: [phone] PERFORMED BY: [place] [address] PATHOLOGIST ORNAMENTAL RAIL INSTALLER CARMEN JEFFERSON M.D.Performed By: #### CA125 #### [facility] , #### CBC, CMP #### [facility] [address] [place] [address] USAComplete Blood Count Auto Diffon 28-76-1371Mocwlhhbc (Bld) [#/Vol]0.0 10*3/uLNormal0.0-0.2The [facility] Rehabilitation HospitalComment on above: Result Comment: PERFORMED BY: [place] [address] PATHOLOGIST ORNAMENTAL RAIL INSTALLER CARMEN JEFFERSON M.D.Performed By: #### CA125 #### [facility] , #### CBC, CMP #### [facility] [address] [place] [address] USABasophils/100 WBC (Bld)0.5 %Normal.The [facility] Physician GroupComment on above:Performed By: #### CA125 #### [facility] , #### CBC, CMP #### [place] [address] USAEosinophils (Bld) [#/Vol]0.3 10*3/uLNormal0.0-0.45The [facility] Physician GroupComment on above:Performed By: #### CA125 #### [facility] , #### CBC, CMP #### [place] [address] USAEosinophils/100 WBC (Bld)4.7 %Normal.The [facility] Physician GroupComment on above:Performed By: #### CA125 #### [facility] , #### CBC, CMP #### [place] [address] USAErythrocyte distribution width (RBC) [Ratio]16.5 %High 11.9-15.3The [facility] Physician GroupComment on above:Performed By: #### CA125 #### [facility] , #### CBC, CMP #### [facility] [address] [place] [address] USAHematocrit (Bld) [Volume fraction]35.4 %Cclyhg61.0-46.4The [facility] Physician GroupComment on above:Performed By: #### CA125 #### [facility] , #### CBC, CMP #### [place] [address] USAHemoglobin (Bld) [Mass/Vol]11.7 g/dLLow11.8-15.4The [facility] Physician GroupComment on above:Performed By: #### CA125 #### [facility] , #### CBC, CMP #### [place] [address] USALymphocytes (Bld) [#/Vol]2.1 10*3/uLNormal1.00-4.8The [facility] Physician GroupComment on above:Performed By: #### CA125 #### [facility] , #### CBC, CMP #### [facility] [address] [place] [address] USALymphocytes/100 WBC (Bld)35.0 %Normal.The [facility] Physician GroupComment on above:Performed By: #### CA125 #### [facility] , #### CBC, CMP #### [facility] [address] [place], [place] [address]H (RBC) [Entitic mass]28.8 fjGmfgwz44.7-34.3The [facility] Physician GroupComment on above:Performed By: #### CA125 #### [facility] , #### CBC, CMP #### [place] [address] USAV (RBC) [Entitic vol]86.7 zVKpnohe18-682Okr [facility] Physician GroupComment on above:Performed By: #### CA125 #### [facility] , #### CBC, CMP #### [facility] [address] [place] [address] USAMean Corpuscular HGB Conc33.2 g/cWGagtne04.0-35.0The [facility] Physician GroupComment on above:Performed By: #### CA125 #### [facility] , #### CBC, CMP #### [facility] [address] [place] [address] USAMonocytes (Bld) [#/Vol]0.4 10*3/uLNormal0.0-0.8The [facility] Physician GroupComment on above:Performed By: #### CA125 #### [facility] , #### CBC, CMP #### [facility] [address] [place] [address] USAMonocytes/100 WBC (Bld)6.9 %Normal.The [facility] Physician GroupComment on above:Performed By: #### CA125 #### [facility] , #### CBC, CMP #### [facility] [address] [place] [address] USANeutrophils (Bld) [#/Vol]3.2 10*3/uLNormal1.8-7.7The [facility] Physician GroupComment on above:Performed By: #### CA125 #### [facility] , #### CBC, CMP #### [facility] [address] [place] [address] USANeutrophils/100 WBC (Bld)52.9 %Normal.The [facility] Physician GroupComment on above:Performed By: #### CA125 #### [facility] , #### CBC, CMP #### [facility] [address] [place] [address] USANRBC%0.2 /100{WBC}Normal0-0.5The [facility] Comment on above:Performed By: #### CA125 #### [facility] , #### CBC, CMP #### [facility] [address] [place] [address] USAPlatelet mean volume (Bld) [Entitic vol]6.8 fLNormal 6.3-10.7The [facility] Physician GroupComment on above:Performed By: #### CA125 #### [facility] , #### CBC, CMP #### [facility] [address] [place] [address] USAPlatelets (Bld) [#/Vol]337 10*3/kHPbjhsf133-082Pfh [facility] Physician GroupComment on above:Performed By: #### CA125 #### [facility] , #### CBC, CMP #### [facility] [address] [place] [address] USARBC (Bld) [#/Vol]4.08 10*6/uLNormal3.60-5.00The [facility] Physician GroupComment on above:Performed By: #### CA125 #### [facility] , #### CBC, CMP #### [facility] [address] [place] [address] USAWBC (Bld) [#/Vol]6.0 10*3/uLNormal3.8-11.6The [facility] Physician GroupComment on above:Performed By: #### CA125 #### [facility] , #### CBC, CMP #### [facility] [address] [place] [address] USAWhite Blood Count6.0 [CFU]/mLNormal3.8-11.6The [facility] Physician GroupComment on above:Performed By: #### CA125 #### [facility] , #### CBC, CMP #### [place] [address] USAComprehensive Metabolic Panelon 02-26-4665Mdzfuwq [Mass/Vol]3.7 g/dLNormal3.5-5.7The [facility] Physician GroupComment on above: Performed By: #### CA125 #### [facility] , #### CBC, CMP #### [facility] [address] [place] [address] USAAlbumin/Globulin [Mass ratio]0.9 {ratio}NormalThe [facility] Physician GroupComment on above:Performed By: #### CA125 #### [facility] , #### CBC, CMP #### [facility] [address] [place] [address] USAALP [Catalytic activity/Vol]97 U/RBxtwys69-949Xgo [facility] Physician GroupComment on above:Performed By: #### CA125 #### [facility] , #### CBC, CMP #### [facility] [address] [place] [address] USAALT [Catalytic activity/Vol]23 U/LNormal7-52The [facility] Physician GroupComment on above:Performed By: #### CA125 #### [facility] , #### CBC, CMP #### [facility] [address] [place] [address] USAAnion gap [Moles/Vol]8.7 mmol/LNormal6.0-15.0The [facility] Physician GroupComment on above:Performed By: #### CA125 #### [facility] , #### CBC, CMP #### [facility] [address] [place] [address] USAAST [Catalytic activity/Vol]27 U/CHwodgd61-31Fgf [facility] Physician GroupComment on above:Performed By: #### CA125 #### [facility] , #### CBC, CMP #### [facility] [address] [place] [address] USABilirubin [Mass/Vol]0.5 mg/dLNormal0.3-1.0The [facility] Physician GroupComment on above:Performed By: #### CA125 #### [facility] , #### CBC, CMP #### [facility] [address] [place] [address] USACalcium [Mass/Vol]9.0 mg/dLNormal8.6-10.3The [facility] Physician GroupComment on above:Performed By: #### CA125 #### [facility] , #### CBC, CMP #### [facility] [address] [place] [address] USAChloride [Moles/Vol]105 mmol/HFsferu84-750Ghv [facility] Physician GroupComment on above:Performed By: #### CA125 #### [facility] , #### CBC, CMP #### [facility] [address] [place] [address] USACO2 [Moles/Vol]27.4 mmol/DYvqrzp98.0-31.0The [facility] Physician GroupComment on above:Performed By: #### CA125 #### [facility] , #### CBC, CMP #### [place] [address] USACreatinine [Mass/Vol]0.62 mg/dLNormal0.60-1.20ThSt. [facility]'s [facility] Physician GroupComment on above:Performed By: #### CA125 #### [facility] , #### CBC, CMP #### [place] [address] USACreatinine Clr Calc Sroeeuji04.05NormSouth [facility] Hospital Physician GroupComment on above:Result Comment: PERFORMED BY: [place] [address] PATHOLOGIST ORNAMENTAL RAIL INSTALLER CARMEN JEFFERSON M.D.Performed By: #### CA125 #### [facility] , #### CBC, CMP #### [place] [address] USAGFR/1.73 sq M.predicted MDRD (S/P/Bld) [Vol rate/Area] mL/min/{1.73_m2}NormalThe [facility] Physician [facility] Care SystemComment on above:Performed By: #### CA125 #### [facility] , #### CBC, CMP #### [place] [address] USAGlobulin (S) [Mass/Vol]4.0 g/dLSt. Mary's [facility] Center Physician [facility] Care SystemComment on above:Performed By: #### CA125 #### [facility] , #### CBC, CMP #### [place] [address] USAGlucose [Mass/Vol]103 mg/vTUykd75-105Iun [facility] Physician GroupComment on above:Result Comment: Random Glucose Reference Range is dependent on time and content of last meal. Glucose of more than 200 mg/dL in a nonstressed, ambulatory subject supports the diagnosis of Diabetes Mellitus. ADA recommended reference rangePerformed By: #### CA125 #### [facility] , #### CBC, CMP #### [facility] [address] [place] [address] USAPotassium [Moles/Vol]4.1 mmol/LNormal3.5-5.1The [facility] Physician GroupComment on above:Performed By: #### CA125 #### [facility] , #### CBC, CMP #### [facility] [address] [place] [address] USAProtein [Mass/Vol]7.7 g/dLNormal6.4-8.9The [facility] Physician GroupComment on above:Performed By: #### CA125 #### [facility] , #### CBC, CMP #### [place] [address] USASodium [Moles/Vol]137 mmol/WNlgmzf218-750Bym [facility] Physician GroupComment on above:Performed By: #### CA125 #### [facility] , #### CBC, CMP #### [facility] [address] [place] [address] USAUrea nitrogen [Mass/Vol]17 mg/dLNormal7-25The [facility] Physician GroupComment on above:Performed By: #### CA125 #### [facility] , #### CBC, CMP #### [place] [address] USAComprehensive metabolic panelon 61-39-9850Ejgpznx [Mass/Vol]3.7 g/dL3.5 - 5.7 g/dLNOMS HealthcareAlbumin/Globulin [Mass ratio]0.9 {ratio}NOMS HealthcareALP [Catalytic activity/Vol]97 U/L34 - 104 U/LNOMS HealthcareALT [Catalytic activity/Vol]23 U/L7 - 52 U/LNOMS HealthcareAnion gap [Moles/Vol]8.7 mmol/L6.0 - 15.0NOMS HealthcareAST [Catalytic activity/Vol]27 U/L 13 - 39 U/LNOMS HealthcareBilirubin [Mass/Vol]0.5 mg/dL0.3 - 1.0 mg/dLNOMS HealthcareCalcium [Mass/Vol]9 mg/dL8.6 - 10.3 mg/dLNOMS HealthcareChloride [Moles/Vol]105 mmol/L98 - 107 mmol/LNOMS HealthcareCO2 [Moles/Vol]27.4 mmol/L 21.0 - 31.0 mmol/LNOMS HealthcareCreatinine (U) [Mass/Vol]0.62 mg/dL0.60 - 1.20 mg/dLNOMS HealthcareCREATININE CLR CALC NSZFUYUS38.05NOMS HealthcareESTIMATED GFRNOMS HealthcareGlobulin (S) [Mass/Vol]4 g/dLNOMS HealthcareGlucose [Mass/Vol] 103 mg/nBZgft46 - 100 mg/dLINTERMOUNTAIN [facility]ARE HealthcareComment on above:Random Glucose Reference Range is dependent on time and content of last meal. Glucose of more than 200 mg/dL in a nonstressed, ambulatory subject supports the diagnosis of Diabetes Mellitus. ADA recommended reference range Interpretation and review of laboratory resultsAbnormalNOMS HealthcarePotassium [Moles/Vol]4.1 mmol/L3.5 - 5.1 mmol/LNOMS HealthcareProtein [Mass/Vol]7.7 g/dL 6.4 - 8.9 g/dLNOVA HealthcareSodium [Moles/Vol]137 mmol/L136 - 145 mmol/LNOMS HealthcareUrea nitrogen [Mass/Vol]17 mg/dL7 - 25 mg/dLNOVA HealthcareNOVA HealthcareCBC WITH AUTO DIFFERENTIALon 86-30-5452SGVCAAQGB ABSOLUTE COUNT (10*3/UL) BY AUTOMATED COUNT0.1 10*3/uLNormal0.0-0.2PLafayette General Southwestica [facility] Comment on above:Performed By: #### CBCA #### [facility] ([facility]) [address] [place] [address] VIRBASOPHILS RELATIVE PERCENT BY AUTOMATED COUNT0.9 %Normal [facility] HospitalComment on above:Performed By: #### CBCA #### [facility] ([facility]) [address] [place] [address] VIRCELLAVISION DIFFERENTIAL TYPEAUTOMATED DIFFERENTIALNormal [facility] HospitalComment on above:Performed By: #### CBCA #### [facility] ([facility]) [address] [place] [address] VIREosinophils (Bld) [#/Vol]0.2 10*3/uLNormal0.0-0.4[facility] HospitalComment on above:Performed By: #### CBCA #### [facility] ([facility]) [address] [place] [address] VIREOSINOPHILS RELATIVE PERCENT BY AUTOMATED COUNT3.1 %Normal [facility] HospitalComment on above:Performed By: #### CBCA #### [facility] ([facility]) [address] [place] [address] VIRErythrocyte distribution width (RBC) [Ratio]16.7 %High 11.5-15Ohio[facility] HospitalComment on above:Performed By: #### CBCA #### [facility] ([facility]) [address] [place] [address] VIRHematocrit (Bld) [Volume fraction]34.8 %Qsv40-78WiqBusrneOhioHealth Hardin Memorial HospitalComment on above:Performed By: #### CBCA #### [facility] ([facility]) [address] [place] [address] VIRHemoglobin (Bld) [Mass/Vol]11.5 g/dLLow11.7-15.5PMercy Health Anderson HospitalComaspirus ironwood hospital on above:Performed By: #### CBCA #### [facility] ([facility]) [address] [place] [address] VIRLYMPHOCYTES ABSOLUTE COUNT (10*3/UL) BY AUTOMATED COUNT1.8 10*3/uLNormal1.0-3.5PMercy Health Anderson HospitalComaspirus ironwood hospital on above:Performed By: #### CBCA #### [facility] ([facility]) [address] [place] [address] VIRLYMPHOCYTES RELATIVE PERCENT BY AUTOMATED COUNT26.2 %Normal [facility] HospitalComment on above:Performed By: #### CBCA #### [facility] ([facility]) [address] [place] [address] VIRMCH (RBC) [Entitic mass]28.2 eeNpmzzi89-17DjeAkuetmOhioHealth Hardin Memorial HospitalComment on above:Performed By: #### CBCA #### [facility] ([facility]) [address] [place] [address] VIRMCHC (RBC) [Mass/Vol]33.1 g/zPZwltdj35-15GpfOtaxooLake Granbury Medical CenterComment on above:Performed By: #### CBCA #### [facility] ([facility]) [address] [place] [address] VIRMCV (RBC) [Entitic vol]85 lILyiovb75-647EqaWggvqt [facility] HospitalComment on above:Performed By: #### CBCA #### [facility] ([facility]) [address] [place] [address] VIRMONOCYTES ABSOLUTE COUNT (10*3/UL) BY AUTOMATED COUNT0.4 10*3/uLNormal0.0-0.9Ohio[facility] HospitalComaspirus ironwood hospital on above:Performed By: #### CBCA #### [facility] ([facility]) [address] [place] [address] VIRMONOCYTES RELATIVE PERCENT BY AUTOMATED COUNT5.2 %Normal [facility] HospitalComment on above:Performed By: #### CBCA #### [facility] ([facility]) [address] [place] [address] VIRNEUTROPHILS ABSOLUTE COUNT BY AUTOMATED COUNT4.4 10*3/uL Normal1.5-6.6Ohio[facility] Memorial HospitalComaspirus ironwood hospital on above:Performed By: #### CBCA #### [facility] ([facility]) [address] [place] [address] VIRNEUTROPHILS RELATIVE PERCENT BY AUTOMATED COUNT64.6 %Normal [facility]in Memorial HospitalComment on above:Performed By: #### CBCA #### [facility] ([facility]) [address] [place] [address] VIRPlatelet mean volume (Bld) [Entitic vol]7.5 fLNormal7-12 [facility] HospitalComment on above:Performed By: #### CBCA #### [facility] ([facility]) [address] [place] [address] VIRPlatelets (Bld) [#/Vol]327 10*3/jYDedtwr822-516UzoKspxkc Fremont HospitalComment on above:Performed By: #### CBCA #### [facility] ([facility]) [address] [place] [address] VIRRBC COUNT4.08 X10E12/LNormal3.8-5.2PMercy Health Anderson HospitalComment on above:Performed By: #### CBCA #### [facility] ([facility]) [address] [place] [address] VIRWBC (Bld) [#/Vol]6.9 10*3/uLNormal4-11Ohio[facility] Hardin Memorial HospitalComment on above:Performed By: #### CBCA #### [facility] ([facility]) [address] [place] [address] VIRCOMPREHENSIVE METABOLIC PANELon 36-19-1611Nlxulti [Mass/Vol] 3.5 g/dLNormal3.2-5.3PMercy Health Anderson HospitalComment on above:Performed By: #### CMP #### [facility] ([facility]) [address] [place] [address] VIRALP [Catalytic activity/Vol]90 U/OUcnhyt16-049NqoFbokkvLake Granbury Medical CenterComment on above:Performed By: #### CMP #### [facility] ([facility]) [address] [place] [address] VIRALT [Catalytic activity/Vol]26 U/LNormal<=31PMercy Health Anderson HospitalComment on above:Performed By: #### CMP #### [facility] ([facility]) [address] [place] [address] VIRAnion gap [Moles/Vol]9 mmol/LNormal5-15ProLake Granbury Medical CenterComment on above:Performed By: #### CMP #### [facility] ([facility]) [address] [place] [address] VIRAST [Catalytic activity/Vol]35 U/LNormal<=41ProLake Granbury Medical CenterComment on above:Performed By: #### CMP #### [facility] ([facility]) [address] [place] [address] VIRBilirubin [Mass/Vol]0.6 mg/dLNormal0.3-1.2PMercy Health Anderson HospitalComment on above:Performed By: #### CMP #### [facility] ([facility]) [address] [place] [address] VIRCalcium [Mass/Vol]8.8 mg/dLNormal8.5-10.5PMercy Health Anderson HospitalComment on above:Performed By: #### CMP #### [facility] ([facility]) [address] [place] [address] VIRChloride [Moles/Vol]106 mmol/UAwjswg05-001FvhWybsopLake Granbury Medical CenterComment on above:Performed By: #### CMP #### [facility] ([facility]) [address] [place] [address] VIRCO2 [Moles/Vol]26 mmol/VMcbszk31-46OdhMydgfkMercy Health Anderson HospitalComment on above:Performed By: #### CMP #### [facility] ([facility]) [address] [place] [address] VIRCreatinine [Mass/Vol]0.62 mg/dLNormal0.40-1.00ProLake Granbury Medical CenterComment on above:Result Comment: METHOD TRACEABLE TO IDMS STANDARDPerformed By: #### CMP #### [facility] ([facility]) [address] [place] [address] VIREGFR (CKD-EPI) NON-RACE DEPENDENT>^90Normal>=60ProLake Granbury Medical CenterComaspirus ironwood hospital on above:Result Comment: Reported eGFR is based on the CKD-EPI 2020 equation that does not use a race coefficient.Performed By: #### CMP #### [facility] ([facility]) [address] [place] [address] VIRGlucose [Mass/Vol]102 mg/xTPesb44-11YzbTevjytLake Granbury Medical CenterComment on above:Performed By: #### CMP #### [facility] ([facility]) [address] [place] [address] VIRPotassium [Moles/Vol]4.0 mmol/LNormal3.5-5.0ProLake Granbury Medical CenterComment on above:Performed By: #### CMP #### [facility] ([facility]) [address] [place] [address] VIRProtein [Mass/Vol]7.1 g/dLNormal6.0-8.0ProLake Granbury Medical CenterComment on above:Performed By: #### CMP #### [facility] ([facility]) [address] [place] [address] VIRSodium [Moles/Vol]141 mmol/ECcedye009-335QdtIkixgn Fremont HospitalComment on above:Performed By: #### CMP #### [facility] ([facility]) [address] [place] [address] VIRUrea nitrogen [Mass/Vol]18 mg/dLNormal5-27ProLake Granbury Medical CenterComment on above:Performed By: #### CMP #### [facility] ([facility]) [address] [place] [address] VIRHEMOGLOBIN A1Con 35-22-0023Jrqzeem [Mass/Vol]108 mg/dLNormal [facility] HospitalComment on above:Performed By: #### HA1C #### [facility] ([facility]) [address] [place] [address] TIDWzW3l (Bld) [Mass fraction]5.4 %Normal4.4-5.6OhioHealth Hardin Memorial HospitalComment on above:Result Comment: ADA Guidelines Result HgbA1c Normal : less than 5.7 % Prediabetes : 5.7 % to 6.4 % Diabetes : > 6.4 % Use with caution in patients with abnormal hemoglobin variants as the half-life of red blood cells and in vivo glycation rates are affected.Performed By: #### HA1C #### [facility] ([facility]) [address] [place] [address] VIRINSULINon 28-44-9747FQQUFBM0.22 uIU/mLNormal1.00-23.00 [facility] HospitalComment on above:Order Comment: Ref. range is for FASTING NON-DIABETIC POPULATION.Performed By: #### INSL #### [facility] ([facility]) [address] [place] [address] VIRIRONon 93-11-3140Hmjj [Mass/Vol]33 ug/iSKdl19-721ZkzCbizpkLake Granbury Medical CenterComment on above:Performed By: #### FE #### [facility] ([facility]) [address] [place] [address] VIRLIPID PROFILEon 74-06-4731Hnefgpssxdq [Mass/Vol]108 mg/dLLow 150-200ProLake Granbury Medical CenterComment on above:Performed By: #### LIPR #### [facility] ([facility]) [address] [place] [address] VIRCholesterol in HDL [Mass/Vol]34 mg/dLLow>39ProLake Granbury Medical CenterComment on above:Result Comment: HDL <40 mg/dL - High Risk HDL > or = 40mg/dL- Desirable HDL >60 mg/dL - Negative RiskPerformed By: #### LIPR #### [facility] ([facility]) [address] [place] [address] VIRCholesterol in LDL [Mass/Vol]58 mg/dLNormal<130ProLake Granbury Medical CenterComment on above:Result Comment: LDL <100 mg/dL - Desirable LDL >160 mg/dL - High RiskPerformed By: #### LIPR #### [facility] ([facility]) [address] [place] [address] VIRCHOLESTEROL:HDL3.7Craxwg3.0-5.0[facility] Comment on above:Performed By: #### LIPR #### [facility] ([facility]) [address] [place] [address] VIRTriglyceride [Mass/Vol]79 mg/rZOlapgq57-461CrnQyyjlv Fremont HospitalComment on above:Performed By: #### LIPR #### [facility] ([facility]) [address] [place] [address] VIRVERY LOW TCZDXFCNAIM19 mg/dLNormal0-30ProLake Granbury Medical CenterComment on above:Performed By: #### LIPR #### [facility] ([facility]) [address] [place] [address] VIRT3, FREEon 05-50-6884Qwic T3 [Mass/Vol]3.21 pg/mLNormal 2.50-3.90ProLake Granbury Medical CenterComment on above:Performed By: #### FT3 #### [facility] ([facility]) [address] [place] [address] VIRTHYROID PROFILE INCLUDES TSH FT4on 88-49-1470Lohj T4 [Mass/Vol]1.25 ng/dLNormal0.61-1.60Ohio[facility] Hardin Memorial HospitalComment on above: Performed By: #### THYR #### [facility] ([facility]) [address] [place] [address] VIRTSH1.76 uIU/mLNormal0.49-4.67[facility] Comment on above:Performed By: #### THYR #### [facility] ([facility]) [address] [place] [address] VIRVITAMIN D 25 HYDROXYon 09-51-4305SBBQLXK D 25 HYD TOT31.6 ng/zCIemeyt15.0-100.0ProLake Granbury Medical CenterComment on above:Order Comment: Vitamin D status 25 [place] Vitamin D Deficiency <20 ng/mL Insufficiency 20-29 ng/mL Sufficiency 30-100 ng/mL Toxicity >100 ng/mL NOTE: A pediatric reference range has not been established by the subscription clerk of this kit. The [place] [employer] recommends a Vitamin D level of = or >20ng/mL in infants and children.Performed By: #### VITD #### [facility] ([facility]) [address] [place] [address] VIROCCULT BLOOD X 1, STOOLon 30-56-8543BEQED OCCULT BLOOD NegativeNormalNegativeProLake Granbury Medical CenterComment on above:Performed By: #### OB #### [facility] ([facility]) [address] [place] [address] VIRUrine Cultureon 79-79-8289Rqpjxkbk identified Cx Nom (U)No Growth 2 Days PERFORMED BY: [place] [address] PATHOLOGIST ORNAMENTAL RAIL INSTALLER CARMEN JEFFERSON M.D.[facility] Physician GroupComment on above: Performed By: #### CUU #### [place] [address] USAUrine cultureOrdered By: Bonnie Hoover on 60-27-9803Gxbpwmhm identified Cx Nom (U)No Growth 2 DaysProvidence HospitalUS.doppler Carotid arteries - bilateralon 45-99-3342Nlspwxc Reviewed [facility] HealthcareUS.doppler Carotid arteries - bilateralOrdered By: Dion Brandon on 87-67-7156[facility] Work Phone: US.doppler Carotid arteries - bilateralon 03-10-2024 Radiology Study observation (narrative)[facility] CenterAlanine aminotransferase [Enzymatic activity/volume] in Serum or PlasmaOrdered By: Nara Bowman on 60-17-0307TKB [Catalytic activity/Vol]18 U/L7-52Providence HospitalAlbumin [Mass/volume] in Serum or Plasma by Bromocresol green (BCG) dye binding methoOrdered By: Nara Bowman on 20-31-2038Nflxpls BCG dye [Mass/Vol]3.9 g/dL3.5-5.7FCleveland Clinic Akron GeneralAlkaline phosphatase [Enzymatic activity/volume] in Serum or PlasmaOrdered By: Nara Bowman on 97-25-8767ZMD [Catalytic activity/Vol]107 U/ZXpyo66-595FnpvbtlmmProvidence HospitalAspartate aminotransferase [Enzymatic activity/volume] in Serum or PlasmaOrdered By: Nara Bowman on 12-33-9162CCA [Catalytic activity/Vol] 28 U/P20-73SfhgdvrvbProvidence HospitalBasophils Auto (Bld) [#/Vol]Ordered By: Nara Bowman on 28-07-5304Mscclsymw (Bld) [#/Vol]0.0 10*3/uL0.0-0.2 Providence HospitalBasophils/100 WBC Auto (Bld)Ordered By: Nara Bowman on 53-97-7707Pvwlccznd/100 WBC (Bld)0.6 %.Providence HospitalBilirubin.total [Mass/volume] in Serum or PlasmaOrdered By: Nara Bowman on 66-05-1176Grfecujte [Mass/Vol]1.0 mg/dL0.3-1.0Providence HospitalCalcium [Mass/volume] in Serum or PlasmaOrdered By: Nara Bowman on 90-64-5543Dbcuwrs [Mass/Vol]9.3 mg/dL8.6-10.3FCleveland Clinic Akron GeneralCarbon dioxide, total [Moles/volume] in Serum or Plasma Ordered By: Nara Bowman on 48-65-9456WB1 [Moles/Vol]30.1 mmol/L21.0-31.0 Providence HospitalChloride [Moles/volume] in Serum or Plasma Ordered By: Nara Bowman on 07-27-6160Nmlrwugy [Moles/Vol]105 mmol/L 98-107Providence HospitalCreatinine [Mass/volume] in Serum or PlasmaOrdered By: Nara Greenfieldkala on 81-10-0875Tzsucomrff [Mass/Vol]0.72 mg/dL0.60-1.20Providence HospitalEosinophils Auto (Bld) [#/Vol] Ordered By: Nara Bowman on 82-85-6818Xvkslpbflup (Bld) [#/Vol]0.2 10*3/uL0.0-0.45Providence HospitalEosinophils/100 WBC Auto (Bld) Ordered By: Nara Bowman on 06-55-4302Jvrvsoqtgil/100 WBC (Bld)4.5 %. Providence HospitalErythrocyte distribution width Auto (RBC) [Ratio]Ordered By: Nara Bowman on 68-19-7458Bzclcwfomij distribution width (RBC) [Ratio]15.5 %High11.9-15.3FCleveland Clinic Akron GeneralGlobulin Calc (S) [Mass/Vol]Ordered By: Nara [facility] on 20-81-5007Kxxajuia (S) [Mass/Vol]4.2 g/dLProvidence HospitalGlucose [Mass/volume] in Serum or PlasmaOrdered By: Nara [facility] on 05-12-3202Xfqjyph [Mass/Vol]95 mg/nX84-838BdjnmpbylProvidence HospitalComment on above:ADA recommended reference rangeRandom Glucose Reference Range is dependent on time and content of last meal. Glucose of more than 200 mg/dL in a nonstressed, ambulatory subject supports the diagnosisof Diabetes Mellitus.Hematocrit Auto (Bld) [Volume fraction]Ordered By: Nara Bowman on 12-17-7321Xkwfcsntii (Bld) [Volume fraction]37.0 %34.0-46.4FCleveland Clinic Akron GeneralHemoglobin [Mass/volume] in BloodOrdered By: Nara Bowman on 01-50-1674Vvlpqkpjnn (Bld) [Mass/Vol]12.4 g/dL11.8-15.4FCleveland Clinic Akron GeneralLeukocytes [#/volume] corrected for nucleated erythrocytes in Blood by Automated coun Ordered By: Nara Bowman on 03-56-5090UUK corrected for nucl RBC Auto (Bld) [#/Vol]5.1 10*3/uL3.8-11.6FCleveland Clinic Akron GeneralLymphocytes Auto (Bld) [#/Vol]Ordered By: Nara Bowman on 26-21-3463Rfzmberohyt (Bld) [#/Vol]1.6 10*3/uL1.00-4.8Providence HospitalLymphocytes/100 WBC Auto (Bld)Ordered By: Nara Bowman on 03-80-5065Msirxbvezxj/100 WBC (Bld) 30.7 %.[facility] Auto (RBC) [Entitic mass]Ordered By: Nara Bowman on 26-42-3716XUA (RBC) [Entitic mass]30.3 pg24.7-34.[address] [facility] HospitalHC Auto (RBC) [Mass/Vol]Ordered By: Nara Bowman on 66-18-4059GKPD (RBC) [Mass/Vol]33.5 g/dL32.0-35.0Providence HospitalMCV Auto (RBC) [Entitic vol]Ordered By: Nara Bowman on 30-37-4482PYO (RBC) [Entitic vol]90.4 kZ99-406UbmgmvobgProvidence HospitalMonocytes Auto (Bld) [#/Vol]Ordered By: Nara Bowman on 07-43-9992Cxaamugzs (Bld) [#/Vol]0.4 10*3/uL0.0-0.8Providence HospitalMonocytes/100 WBC Auto (Bld)Ordered By: Nara Bowman on 12-10-2023 Monocytes/100 WBC (Bld)8.6 %.Providence HospitalNeutrophils Auto (Bld) [#/Vol]Ordered By: Nara Bowman on 36-02-2832Axqozwixyeu (Bld) [#/Vol]2.9 10*3/uL1.8-7.7FCleveland Clinic Akron GeneralNeutrophils/100 WBC Auto (Bld)Ordered By: Nara Bowman on 62-91-1563Recypwoxwet/100 WBC (Bld) 55.6 %.Providence HospitalNo Panel InformationOrdered By: Nara Bowman on 12-27-0173Nlnznontl GFR (CKD-EPI)> 60.0 mL/MinProvidence HospitalPharmacy Creatinine Clearance (Chem50.85Providence HospitalNucleated erythrocytes [Presence] in Blood by Automated countOrdered By: Nara Bowman on 93-85-0256Nmgkvsexo RBC Auto Ql (Bld)0.1 /100{WBC}0-0.5 Providence HospitalPlatelet mean volume Auto (Bld) [Entitic vol] Ordered By: Nara Bowman on 06-37-3664Ztuwtsie mean volume (Bld) [Entitic vol]7.1 fL6.3-10.7FCleveland Clinic Akron GeneralPlatelets Auto (Bld) [#/Vol] Ordered By: Nara Bowman on 30-84-0183Vqqdoxdyz (Bld) [#/Vol]281 10*3/uL 150-450Providence HospitalPotassium [Moles/volume] in Serum or PlasmaOrdered By: Nara Bowman on 59-50-2071Oqulzgjwd [Moles/Vol]4.2 mmol/L3.5-5.1Fire[facility] Medical CenterProtein [Mass/volume] in Serum or PlasmaOrdered By: Nara Bowman on 84-52-7660Tntlkue [Mass/Vol]8.1 g/dL 6.4-8.9Providence HospitalRBC Auto (Bld) [#/Vol]Ordered By: Nara Bowman on 63-65-1438XWF (Bld) [#/Vol]4.10 10*6/uL3.60-5.00[facility] Northerum or plasma albumin/globulin mass ratioOrdered By: Nara Bowman on 20-85-8549Wjpxhpb/Globulin [Mass ratio]0.9 {ratio} [facility] Northerum or plasma anion gap determinationOrdered By: Nara Bowman on 71-23-1647Xireo gap [Moles/Vol]9.1 mmol/L6.0-15.0 [facility] Northerum or plasma cancer antigen 125 (CA-125) measurement (units/volume)Ordered By: Nara Bowman on 84-42-4969Spigez Ag 125 Qn19.8 [arb'U]/mL0.0-38.1FCleveland Clinic Akron GeneralComment on above: [employer] Electrochemiluminescence Immunoassay(ECLIA)Values obtained with different assay methods or kits cannotbe used interchangeably. Results cannot be interpreted asabsolute evidence of the presence or absence of malignantdisease.Performed at: [address] [id number] Director: Adrian Coello PhD, Phone: [phone] [Moles/volume] in Serum or PlasmaOrdered By: Nara Bowman on 12-10-2023 Sodium [Moles/Vol]140 mmol/Y045-457CnybdsyshProvidence HospitalUrea nitrogen [Mass/volume] in Serum or PlasmaOrdered By: Nara Bowman on 73-17-0830Eljr nitrogen [Mass/Vol]17 mg/dL7-25[facility] WBC Auto (Bld) [#/Vol]Ordered By: Nara Bowman on 10-38-1715MGS (Bld) [#/Vol]5.1 10*3/uL3.8-11.6FCleveland Clinic Akron GeneralAlanine aminotransferase [Enzymatic activity/volume] in Serum or PlasmaOrdered By: Bonnie Hendricks on 27-05-6756ARL [Catalytic activity/Vol]11 U/L7-52Providence HospitalAlbumin [Mass/volume] in Serum or Plasma by Bromocresol green (BCG) dye binding methoOrdered By: Bonnie Hendricks on 79-31-3024Pdvdocy BCG dye [Mass/Vol]3.7 g/dL3.5-5.7FCleveland Clinic Akron GeneralAlkaline phosphatase [Enzymatic activity/volume] in Serum or PlasmaOrdered By: Bonnie Hendricks on 43-76-1709IXF [Catalytic activity/Vol]111 U/S32-267XjgluovlfProvidence HospitalAspartate aminotransferase [Enzymatic activity/volume] in Serum or Plasma Ordered By: Bonnie Hendricks on 05-22-3983CAW [Catalytic activity/Vol]21 U/L13-39 Providence HospitalBasophils Auto (Bld) [#/Vol]Ordered By: Bonnie Hendricks on 98-01-1398Eqqnbtbsa (Bld) [#/Vol]0.0 10*3/uL0.0-0.2FCleveland Clinic Akron GeneralBasophils/100 WBC Auto (Bld)Ordered By: Bonnie Hendricks on 06-06-2023 Basophils/100 WBC (Bld)0.5 %.Providence HospitalBilirubin.total [Mass/volume] in Serum or PlasmaOrdered By: Bonnie Hendricks on 96-48-9998Jsovmhuxs [Mass/Vol]0.6 mg/dL0.3-1.0Providence HospitalCalcium [Mass/volume] in Serum or PlasmaOrdered By: Bonnie Hendricks on 99-76-8381Bxgenem [Mass/Vol]9.4 mg/dL8.6-10.3FCleveland Clinic Akron GeneralCarbon dioxide, total [Moles/volume] in Serum or PlasmaOrdered By: Bonnie Hendricks on 57-46-7820FI0 [Moles/Vol]29.4 mmol/L21.0-31.0Providence HospitalChloride [Moles/volume] in Serum or PlasmaOrdered By: Bonnie Hendricks on 76-42-2985Zmxlhpwr [Moles/Vol]103 mmol/S97-077FuwduoezuProvidence HospitalCreatinine [Mass/volume] in Serum or PlasmaOrdered By: Bonnie Eladio on 72-37-7413Ujciarbyfa [Mass/Vol]0.64 mg/dL0.60-1.20Providence HospitalEosinophils Auto (Bld) [#/Vol]Ordered By: Bonnie Hendricks on 15-54-3211Jkorfirjjmi (Bld) [#/Vol]0.1 10*3/uL0.0-0.45Providence HospitalEosinophils/100 WBC Auto (Bld) Ordered By: Bonnie Hendricks on 17-76-8929Inailosolyj/100 WBC (Bld)2.1 %.Providence HospitalErythrocyte distribution width Auto (RBC) [Ratio]Ordered By: Bonnie Hendricks on 68-74-7321Llumammcipg distribution width (RBC) [Ratio]15.6 % 11.9-15.3FCleveland Clinic Akron GeneralGlobulin Calc (S) [Mass/Vol]Ordered By: Bonnie Hendricks on 38-81-4451Eibyjpkh (S) [Mass/Vol]4.1 g/dLProvidence HospitalGlucose [Mass/volume] in Serum or PlasmaOrdered By: Bonnie Hendricks on 30-94-5850Kalgazu [Mass/Vol]93 mg/hW52-068XyvisllfoProvidence Hospital Comment on above:ADA recommended reference rangeRandom Glucose Reference Range is dependent on time and content of last meal. Glucose of more than 200 mg/dL in a nonstressed, ambulatory subject supports the diagnosisof Diabetes Mellitus. Hematocrit Auto (Bld) [Volume fraction]Ordered By: Bonnie Hendricks on 06-06-2023 Hematocrit (Bld) [Volume fraction]37.2 %34.0-46.4FCleveland Clinic Akron GeneralHemoglobin [Mass/volume] in BloodOrdered By: Bonnie Hendricks on 06-06-2023 Hemoglobin (Bld) [Mass/Vol]12.3 g/dL11.8-15.4FCleveland Clinic [facility] General Leukocytes [#/volume] corrected for nucleated erythrocytes in Blood by Automated counOrdered By: Bonnie Hendricks on 46-86-3362JKZ corrected for nucl RBC Auto (Bld) [#/Vol]5.9 10*3/uL3.8-11.6FCleveland Clinic Akron GeneralLymphocytes Auto (Bld) [#/Vol]Ordered By: Bonnie Hendricks on 71-30-4884Gkrgxgumclh (Bld) [#/Vol]1.6 10*3/uL1.00-4.8Providence HospitalLymphocytes/100 WBC Auto (Bld) Ordered By: Bonnie Hendricks on 11-19-4040Tdlcxmoebrp/100 WBC (Bld)27.0 %.[facility] HospitalH Auto (RBC) [Entitic mass]Ordered By: Bonnie Hendricks on 09-42-4281CNK (RBC) [Entitic mass]28.1 pg24.7-34.3FCleveland Clinic Akron GeneralMCHC Auto (RBC) [Mass/Vol]Ordered By: Bonnie Hendricks on 96-98-6424ISJM (RBC) [Mass/Vol]32.9 g/dL32.0-35.0Providence HospitalMCV Auto (RBC) [Entitic vol]Ordered By: Bonnie Hendricks on 90-98-4154SMV (RBC) [Entitic vol]85.4 fL 80-100Providence HospitalMonocytes Auto (Bld) [#/Vol]Ordered By: Bonnie Hendricks on 03-23-7500Ealalqsbc (Bld) [#/Vol]0.5 10*3/uL0.0-0.8Providence HospitalMonocytes/100 WBC Auto (Bld)Ordered By: Bonnie Hendricks on 66-52-4811Kzdfpanuy/100 WBC (Bld)7.8 %.[facility] Neutrophils Auto (Bld) [#/Vol]Ordered By: Bonnie Hendricks on 23-06-8818Ohpuavjgwax (Bld) [#/Vol]3.7 10*3/uL1.8-7.7FCleveland Clinic Akron GeneralNeutrophils/100 WBC Auto (Bld)Ordered By: Bonnie Hendricks on 62-26-3534Ovsrkcitnqq/100 WBC (Bld)62.6 % .Providence HospitalNo Panel InformationOrdered By: Bonnie Hendricks on 94-10-1168Sibhydblb GFR (CKD-EPI)> 60.0 mL/MinProvidence Hospital Pharmacy Creatinine Clearance (ChemN/AFCleveland Clinic Akron GeneralNucleated erythrocytes [Presence] in Blood by Automated countOrdered By: Bonnie Hendricks on 88-42-2944Gkpsiocts RBC Auto Ql (Bld)0.1 /100{WBC}0-0.5FCleveland Clinic Akron GeneralPlatelet mean volume Auto (Bld) [Entitic vol]Ordered By: Bonnie Hendricks on 08-66-7910Wgvirvqp mean volume (Bld) [Entitic vol]6.9 fL6.3-10.7FCleveland Clinic Akron GeneralPlatelets Auto (Bld) [#/Vol]Ordered By: Bonnie Hendricks on 76-85-7732Amjahhotq (Bld) [#/Vol]333 10*3/eK246-073IokskrhhwProvidence HospitalPotassium [Moles/volume] in Serum or PlasmaOrdered By: Bonnie Hendricks on 96-39-7858Rwmbxiipc [Moles/Vol]3.9 mmol/L3.5-5.1FCleveland Clinic [facility] GeneralProtein [Mass/volume] in Serum or PlasmaOrdered By: Bonnie Hendricks on 63-46-2815Wosxifd [Mass/Vol]7.8 g/dL6.4-8.9Providence HospitalRBC Auto (Bld) [#/Vol]Ordered By: Bonnie Hendricks on 89-57-1376LJK (Bld) [#/Vol]4.36 10*6/uL3.60-5.00[facility] Northerum or plasma albumin/globulin mass ratioOrdered By: Bonnie Hendricks on 45-72-2589Gvuscwq/Globulin [Mass ratio]0.9 {ratio}[facility] Northerum or plasma anion gap determinationOrdered By: Bonnie Hendricks on 80-70-0258Pumpk gap [Moles/Vol]8.5 mmol/L6.0-15.0[facility] Northerum or plasma cancer antigen 125 (CA-125) measurement (units/volume)Ordered By: Bonnie Hendricks on 39-34-5975Foxkqn Ag 125 Qn15.5 [arb'U]/mL0.0-38.1FCleveland Clinic Akron GeneralComment on above:[facility] [employer] Electrochemiluminescence Immunoassay(ECLIA)Values obtained with different assay methods or kits cannotbe used interchangeably. Results cannot be interpreted asabsolute evidence of the presence or absence of malignantdisease.Performed at: [facility] [employer] [place] [id number] Director: Adrian Coello PhD, Phone: [phone] [Moles/volume] in Serum or PlasmaOrdered By: Bonnie Hendricks on 25-14-1715Kdomiv [Moles/Vol]137 mmol/X705-149PvelhcgtdProvidence HospitalUrea nitrogen [Mass/volume] in Serum or PlasmaOrdered By: Bonnie Hendricks on 97-49-8831Lqvr nitrogen [Mass/Vol]12 mg/dL7-25Providence HospitalWBC Auto (Bld) [#/Vol] Ordered By: Bonnie Hendricks on 43-50-7983JIC (Bld) [#/Vol]5.9 10*3/uL3.8-11.6FCleveland Clinic Akron GeneralAlanine aminotransferase [Enzymatic activity/volume] in Serum or PlasmaOrdered By: Bonnie Hendricks on 48-29-7685MNS [Catalytic activity/Vol]8 U/L7-52[facility] HospitalAlbumin [Mass/volume] in Serum or Plasma by Bromocresol green (BCG) dye binding methoOrdered By: Bonnie Hendricks on 12-12-2022 Albumin BCG dye [Mass/Vol]3.8 g/dL3.5-5.7[facility] Alkaline phosphatase [Enzymatic activity/volume] in Serum or PlasmaOrdered By: Bonnie Hendricks on 42-06-0347TBW [Catalytic activity/Vol]87 U/Q37-554VxmmlhcqdProvidence HospitalAspartate aminotransferase [Enzymatic activity/volume] in Serum or PlasmaOrdered By: Bonnie Hendricks on 46-85-7180LGU [Catalytic activity/Vol]13 U/O30-96XihridxveProvidence HospitalBasophils Auto (Bld) [#/Vol]Ordered By: Bonnie Hendricks on 05-28-6563Jfeflnvdz (Bld) [#/Vol]0.0 10*3/uL0.0-0.2FC[facility] GeneralBasophils/100 WBC Auto (Bld)Ordered By: Bonnie Hendricks on 92-14-1535Ajxhnfwsl/100 WBC (Bld)0.6 %.[facility] Bilirubin.total [Mass/volume] in Serum or PlasmaOrdered By: Bonnie Hendricks on 83-43-0609Wihcxxgxa [Mass/Vol]0.5 mg/dL0.3-1.0[facility] Calcium [Mass/volume] in Serum or PlasmaOrdered By: Bonnie Hendricks on 12-12-2022 Calcium [Mass/Vol]9.1 mg/dL8.6-10.3FC[facility] GeneralCarbon dioxide, total [Moles/volume] in Serum or PlasmaOrdered By: Bonnie Hendricks on 20-74-5777LF4 [Moles/Vol]27.1 mmol/L21.0-31.0[facility] Chloride [Moles/volume] in Serum or PlasmaOrdered By: Bonnie Hendricks on 12-12-2022 Chloride [Moles/Vol]104 mmol/P46-901RrzxcepgpProvidence HospitalCreatinine [Mass/volume] in Serum or PlasmaOrdered By: Bonnie Hendricks on 53-41-9592Epovmpllqv [Mass/Vol]0.69 mg/dL0.60-1.20Providence HospitalEosinophils Auto (Bld) [#/Vol]Ordered By: Bonnie Hendricks on 40-67-1266Vxrcesfkpel (Bld) [#/Vol]0.1 10*3/uL0.0-0.45Providence HospitalEosinophils/100 WBC Auto (Bld) Ordered By: Bonnie Hendricks on 54-00-4318Dtrarywjtno/100 WBC (Bld)3.1 %.Providence HospitalErythrocyte distribution width Auto (RBC) [Ratio]Ordered By: Bonnie Hendricks on 64-41-4008Bldgvabszad distribution width (RBC) [Ratio]14.9 % 11.9-15.3FC[facility] GeneralGlobulin Calc (S) [Mass/Vol]Ordered By: Bonnie Hendircks on 40-51-7027Xzsgtwfz (S) [Mass/Vol]4.0 g/dLProvidence HospitalGlucose [Mass/volume] in Serum or PlasmaOrdered By: Bonnie Hendricks on 13-28-1879Bogrlkj [Mass/Vol]99 mg/uD67-345GmohncsksProvidence Hospital Comment on above:ADA recommended reference rangeRandom Glucose Reference Range is dependent on time and content of last meal. Glucose of more than 200 mg/dL in a nonstressed, ambulatory subject supports the diagnosisof Diabetes Mellitus. Hematocrit Auto (Bld) [Volume fraction]Ordered By: Bonnie Hendricks on 12-12-2022 Hematocrit (Bld) [Volume fraction]35.1 %34.0-46.4FC[facility] GeneralHemoglobin [Mass/volume] in BloodOrdered By: Bonnie Hendricks on 12-12-2022 Hemoglobin (Bld) [Mass/Vol]11.5 g/dL11.8-15.4[facility] Leukocytes [#/volume] corrected for nucleated erythrocytes in Blood by Automated counOrdered By: Bonnie Hendricks on 03-85-8788TVO corrected for nucl RBC Auto (Bld) [#/Vol]4.8 10*3/uL3.8-11.6FC[facility] GeneralLymphocytes Auto (Bld) [#/Vol]Ordered By: Bonnie Hendricks on 41-97-0359Njdsdxuqpap (Bld) [#/Vol]1.5 10*3/uL1.00-4.8Providence HospitalLymphocytes/100 WBC Auto (Bld) Ordered By: Bonnie Hendricks on 10-78-9966Hhnpncyjkqu/100 WBC (Bld)31.0 %.[facility]idence HospitalMCH Auto (RBC) [Entitic mass]Ordered By: Bonnie Hendricks on 16-20-5724RUP (RBC) [Entitic mass]28.6 pg24.7-34.3FC[facility] GeneralMCHC Auto (RBC) [Mass/Vol]Ordered By: Bonnie Hendricks on 01-40-2774LOSJ (RBC) [Mass/Vol]32.8 g/dL32.0-35.0Prov[facility] HospitalMCV Auto (RBC) [Entitic vol]Ordered By: Bonnie Hendricks on 91-31-8624MNL (RBC) [Entitic vol]87.1 fL 80-100Providence HospitalMonocytes Auto (Bld) [#/Vol]Ordered By: Bonnie Hendricks on 11-52-0354Jkqhtwcot (Bld) [#/Vol]0.4 10*3/uL0.0-0.8Providence HospitalMonocytes/100 WBC Auto (Bld)Ordered By: Bonnie Hendricks on 25-74-0475Ncroftbbr/100 WBC (Bld)8.4 %.[facility] Neutrophils Auto (Bld) [#/Vol]Ordered By: Bonnie Hendricks on 63-74-4298Zyervpqxbrt (Bld) [#/Vol]2.8 10*3/uL1.8-7.7FC[facility] GeneralNeutrophils/100 WBC Auto (Bld)Ordered By: Bonnie Hendricks on 68-19-3374Jwdokgxxywb/100 WBC (Bld)56.9 % .Providence HospitalNo Panel InformationOrdered By: Bonnie Hendricks on 77-54-2837Ttdotqdyw GFR (CKD-EPI)> 60.0 mL/MinProvidence Hospital Pharmacy Creatinine Clearance (ChemN/AFCleveland Clinic Akron GeneralNucleated erythrocytes [Presence] in Blood by Automated countOrdered By: Bonnie Hendricks on 21-61-4957Mitfsahbc RBC Auto Ql (Bld)0.2 /100{WBC}0-0.5FC[facility] Clinic [facility] GeneralPlatelet mean volume Auto (Bld) [Entitic vol]Ordered By: Bonnie Hendricks on 59-12-9500Xsujnldz mean volume (Bld) [Entitic vol]6.9 fL6.3-10.7FC[facility] Clinic [facility] GeneralPlatelets Auto (Bld) [#/Vol]Ordered By: Bonnie Hendricks on 11-69-3781Lyrmbbloe (Bld) [#/Vol]315 10*3/xR869-799RfziiboroProvidence HospitalPotassium [Moles/volume] in Serum or PlasmaOrdered By: Bonnie Hendricks on 90-20-6170Lunihweaq [Moles/Vol]4.3 mmol/L3.5-5.1FC[facility] GeneralProtein [Mass/volume] in Serum or PlasmaOrdered By: Bonnei Hendricks on 00-99-3936Vqvigay [Mass/Vol]7.8 g/dL6.4-8.9Providence HospitalRBC Auto (Bld) [#/Vol]Ordered By: Bonnie Hendricks on 23-63-1354JRF (Bld) [#/Vol]4.04 10*6/uL3.60-5.00[facility] Northerum or plasma albumin/globulin mass ratioOrdered By: Bonnie Hendricks on 29-12-4637Idvozhy/Globulin [Mass ratio]1.0 {ratio}[facility] Northerum or plasma anion gap determinationOrdered By: Bonnie Hendricks on 06-36-6983Jsyzv gap [Moles/Vol]10.2 mmol/L6.0-15.0[facility] Northerum or plasma cancer antigen 125 (CA-125) measurement (units/volume)Ordered By: Bonnie Hendricks on 39-28-1473Vbwjus Ag 125 Qn19.0 [arb'U]/mL0.0-38.1FCleveland Clinic Akron GeneralComment on above:[employer] Electrochemiluminescence Immunoassay(ECLIA)Values obtained with different assay methods or kits cannotbe used interchangeably. Results cannot be interpreted asabsolute evidence of the presence or absence of malignantdisease.Performed at: [facility] [employer] [place] [id number] Director: Adrian Coello PhD, Phone: [phone] [Moles/volume] in Serum or PlasmaOrdered By: Bonnie Hendricks on 80-01-4252Paeuft [Moles/Vol]137 mmol/B644-956XhccthwvcProvidence HospitalUrea nitrogen [Mass/volume] in Serum or PlasmaOrdered By: Bonnie Hendricks on 93-34-4686Pltt nitrogen [Mass/Vol]15 mg/dL7-25Providence HospitalWBC Auto (Bld) [#/Vol] Ordered By: Bonnie Hendricks on 28-80-3778JAS (Bld) [#/Vol]4.8 10*3/uL3.8-11.6FC[facility] Clinic [facility] GeneralCULTURE URINEon 42-06-0556OLXJLSA URINEIsolate 1 Escherichia coli >100,000 cfu/mL of ORGANISM [...] <=0.12 S F Nitrofurantoin <=16 S F Trimethoprim/Sulfamethoxazole <=20 S FNormalThe [facility] HospitalComment on above:Performed By: #### CRP, CMP #### [facility] [address] [place] [address] Dr. Sung Jasso AUTO DIFFon 12-82-9295VHHY #0.0 103/ulNormal0.0-0.1The [facility] HospitalComment on above:Performed By: #### CRP, CMP #### [facility] [address] [place] [address] Dr. Sung Johnsonsophils/100 WBC (Bld)0.3 %Normal0.2-2.0[facility] Comment on above:Performed By: #### CRP, CMP #### [facility] [address] [place] [address] Dr. Sung Morrow #0.2 103/ulNormal0.0-0.7The [facility] HospitalComment on above: Performed By: #### CRP, CMP #### [facility] [address] [place] [address] Dr. Sung Huttonosinophils/100 WBC (Bld)3.4 %Normal0.9-7.0The [facility] Comment on above:Performed By: #### CRP, CMP #### [facility] [address] [place] [address] Dr. Sung Huttonrythrocyte distribution width (RBC) [Ratio]16.1 %Critically high 11.0-15.0The [facility] HospitalComment on above:Performed By: #### CRP, CMP #### [facility] [address] [place] [address] Dr. Sung Amezcuaatocrit (Bld) [Volume fraction]37.0 %Piqbpr21.0-48.0The [facility] HospitalComment on above:Performed By: #### CRP, CMP #### [facility] [address] [place] [address] Dr. Sung MooreHemoglobin (Bld) [Mass/Vol]12.1 g/vLCfpepo32.0-16.0The [facility] HospitalComment on above:Performed By: #### CRP, CMP #### [facility] [address] [place] [address] Dr. Sung Nj #0.02 10e3/ulNormal0.00-0.03The [facility] HospitalComment on above:Performed By: #### CRP, CMP #### [facility] [address] [place] [address] Dr. Sung Nj %0.3 %Normal0.0-0.5The [facility] HospitalComment on above: Performed By: #### CRP, CMP #### [facility] [address] [place] [address] Dr. Sung Morse #2.0 103/ulNormal1.2-3.8The [facility] HospitalComment on above:Performed By: #### CRP, CMP #### [facility] [address] [place] [address] Dr. Sung Webbhocytes/100 WBC (Bld)29.0 %Zlbpon14.5-60.0The [facility] HospitalComment on above:Performed By: #### CRP, CMP #### [facility] [address] [place] [address] Dr. Sung MartinUAL DIFF REQNONormalThe [facility] HospitalComment on above: Performed By: #### CRP, CMP #### [facility] [address] [place] [address] Dr. Sung Napoles (RBC) [Entitic mass]28.6 xrLgcukc23.7-34.0The [facility] HospitalComment on above:Performed By: #### CRP, CMP #### [facility] [address] [place] [address] Dr. Sung Viramontes (RBC) [Mass/Vol]32.7 g/oQWhruos21.9-35.2The [facility] HospitalComment on above:Performed By: #### CRP, CMP #### [facility] [address] [place] [address] Dr. Sung Viramontes (RBC) [Entitic vol]87.5 wITbxfeh62.0-99.0The [facility] HospitalComment on above:Performed By: #### CRP, CMP #### [facility] [address] [place] [address] Dr. Sung Elizondo #0.5 103/ulNormal0.3-0.8The [facility] HospitalComment on above:Performed By: #### CRP, CMP #### [facility] [address] [place] [address] Dr. Sung Maneocytes/100 WBC (Bld)6.7 %Normal1.7-12.0The [facility] Comment on above:Performed By: #### CRP, CMP #### [facility] [address] [place] [address] Dr. Sung Reyes #4.1 103/ulNormal1.4-6.5The [facility] HospitalComment on above:Performed By: #### CRP, CMP #### [facility] [address] [place] [address] Dr. Sung Multaniutrophils/100 WBC (Bld)60.3 %Hhzerl99.0-75.0The [facility] HospitalComment on above:Performed By: #### CRP, CMP #### [facility] [address] [place] [address] Dr. Sung Crumlet mean volume (Bld) [Entitic vol]8.9 fLCritically low 9.5-13.5The Justice HospitalComment on above:Performed By: #### CRP, CMP #### [facility] [address] [place] [address] Dr. Sung MoorePLT255 103/yzWxdvmd623-714Str [facility] HospitalComaspirus iron[facility] hospital on above: Performed By: #### CRP, CMP #### [facility] [address] [place] [address] Dr. Sung MooreRBC4.23 106/ulNormal4.20-5.40The [facility] HospitalComment on above:Performed By: #### CRP, CMP #### [facility] [address] [place] [address] Dr. Sung MooreWBC6.8 103/ulNormal4.0-11.0The [facility] on above: Performed By: #### CRP, CMP #### [facility] [address] [place] [address] Dr. Sung Valentine URINE PROFILEon 44-24-3132Hiajfplil Ql (U)NegativeNormal NEGATIVEMetrohealth Parma Medical CenterComment on above:Performed By: #### CMP, BNP #### [facility] [address] [place] [address] Dr. Sung Linder (U)SL CLOUDYAbnormalCLEARThe [facility] HospitalComment on above:Performed By: #### CMP, BNP #### [facility] [address] [place] [address] Dr. Sung Piper (U)YELLOWNormalYELLOWMetrohealth Parma Medical CenterComment on above: Performed By: #### CMP, BNP #### [facility] [address] [place] [address] Dr. Sung CoronelEDIL micrscopic examination will be performed if indicated. NormalThe [facility]ion HospitalComment on above:Performed By: #### CMP, BNP #### [facility] [address] [place] [address] Dr. Sung MooreGlucose Ql (U)NegativeNormalNEGATIVEMetrohealth Parma Medical CenterComment on above:Performed By: #### CMP, BNP #### [facility] [address] [place] [address] Dr. Sung MooreHemoglobin Ql (U)SMALLAbnormalNEGTuscarawas Hospital Comment on above:Performed By: #### CMP, BNP #### [facility] [address] [place] [address] Dr. Sung MooreKetones Ql (U)NegativeNormalNEGATIVEThe [facility] HospitalComment on above:Performed By: #### CMP, BNP #### [facility] [address] [place] [address] Dr. Sung RamirezOCYTESLARGEAbnormalNEGATIVEMetrohealth Parma Medical CenterComment on above:Performed By: #### CMP, BNP #### [facility] [address] [place] [address] Dr. Sung Townsendtrite Ql (U)PositiveAbnormalNEGTuscarawas Hospital Comment on above:Performed By: #### CMP, BNP #### [facility] [address] [place] [address] Dr. Sung MoorepH (U)8.5 [pH]Normal5-9The [facility] HospitalComment on above: Performed By: #### CMP, BNP #### [facility] [address] [place] [address] Dr. Sung MooreSPEC GRAVITY1.761Xeayaf6.005-<=1.025The [facility] HospitalComaspirus ironwood hospital on above:Performed By: #### CMP, BNP #### [facility] [address] [place] [address] Dr. Sung Mullen PROTEINTRACENormalNEGATIVE/ TRACEThe [facility] HospitalComment on above:Performed By: #### CMP, BNP #### [facility] [address] [place] [address] Dr. Sung Meneses MICRO INDINDICATEDNormalThAdena Pike Medical CenterComment on above: Performed By: #### CMP, BNP #### [facility] [address] [place] [address] Dr. Sung MooreUrobilinogen Qn (U)0.2 {David'U}/dLNormal0.2 - 1.0The [facility] HospitalComment on above:Performed By: #### CMP, BNP #### [facility] [address] [place] [address] Dr. Sung MooreLACTATE/LACTIC ACIDon 08-25-2772Rryqdjw [Moles/Vol]1.0 mmol/L Normal0.4-2.0The [facility] HospitalComment on above:Performed By: #### LACT #### [facility] [address] [place] [address] Dr. Sung SuarezF 14(COMP METB)on 63-19-3316Qmkzfek [Mass/Vol]3.5 g/dLNormal 3.4-5.0The [facility] HospitalComment on above:Performed By: #### CMP, BNP #### [facility] [address] [place] [address] Dr. Sung MooreAlbumin/Globulin [Mass ratio]0.9 {ratio}NormalThe [facility] HospitalComment on above:Performed By: #### CMP, BNP #### [facility] [address] [place] [address] Dr. Sung Wilhelm [Catalytic activity/Vol]113 U/WPlxjpk31-884Nbm [facility] HospitalComment on above:Performed By: #### CMP, BNP #### [facility] [address] [place] [address] Dr. Sung Ivy [Catalytic activity/Vol]14 U/YUvjefu16-56Qit [facility] HospitalComment on above:Performed By: #### CMP, BNP #### [facility] [address] [place] [address] Dr. Sung Armstrong gap [Moles/Vol]13.5 mmol/LNormalThe [facility] on above:Performed By: #### CMP, BNP #### [facility] [address] [place] [address] Dr. Sung Petty [Catalytic activity/Vol]9 U/LCritically xah14-17Tjx [facility] HospitalComment on above:Performed By: #### CMP, BNP #### [facility] [address] [place] [address] Dr. Sung MooreBilirubin [Mass/Vol]0.3 mg/dLNormal0.2-1.0The [facility] Comment on above:Performed By: #### CMP, BNP #### [facility] [address] [address] [address] Sung MooreCalcium [Mass/Vol]9.0 mg/dLNormal8.5-10.1The [facility] Comment on above:Performed By: #### CMP, BNP #### [facility] [address] [address] [address] Sung MooreChloride [Moles/Vol]104 mmol/BOzrqyn61-151Tvv [facility] Comment on above:Performed By: #### CMP, BNP #### [facility] [address] [address] [address] Sung MooreCO2 [Moles/Vol]27.3 mmol/GCqaxvq68.0-32.0The [facility] Comment on above:Performed By: #### CMP, BNP #### [facility] [address] [address] [address] Sung MooreCreatinine [Mass/Vol]0.89 mg/dLNormal0.55-1.02The [facility] HospitalComment on above:Performed By: #### CMP, BNP #### [facility] [address] [address] [address] Sung HuttonGFR-AF ROMANIAN>60Normal>=60The [facility] HospitalComment on above:Performed By: #### CMP, BNP #### [facility] [address] [address] [address] Sung HuttonGFR-NON AF ROMANIAN>60Normal>=60The [facility] HospitalComment on above:Performed By: #### CMP, BNP #### [facility] [address] [place] [address] Dr. Sung MooreGlobulin (S) [Mass/Vol]4.0 g/dLNormalThe [facility] HospitalComment on above:Performed By: #### CMP, BNP #### [facility] [address] [address] [address] Sung MooreGlucose [Mass/Vol]119 mg/dLCritically fpim22-750Nvd [facility] Shawment on above:Performed By: #### CMP, BNP #### [facility] [address] [address] [address] Sung MoorePotassium [Moles/Vol]3.8 mmol/LNormal3.5-5.1The [facility] Comment on above:Performed By: #### CMP, BNP #### [facility] [address] [address] [address] Sung MooreProtein [Mass/Vol]7.5 g/dLNormal6.4-8.2The [facility] Comment on above:Performed By: #### CMP, BNP #### [facility] [address] [address] [address] Sung MooreSodium [Moles/Vol]141 mmol/FStaiwm604-471Gze [facility] Comment on above:Performed By: #### CMP, BNP #### [facility] [address] [address] [address] Sung MooreUrea nitrogen [Mass/Vol]22.0 mg/dLCritically high7.0-18.0The [facility] HospitalComment on above:Performed By: #### CMP, BNP #### [facility] [address] [address] [address] Sung Hayes nitrogen/Creatinine [Mass ratio]24.7 mg/mgNoCleveland Clinic South Pointe HospitalComment on above:Performed By: #### CMP, BNP #### [facility] [address] [place] [address] Dr. Sung Mcguire MICROSCOPIC ONLYon 78-16-7189CDCMLNWRGKBZBCeezeyosWIXC SEEN [facility] CenterComaspirus [facility] on above:Performed By: #### CMP, BNP #### [facility] [address] [place] [address] Dr. Sung Johnsonctmarline identified Cx Nom (U)INDICATEDNoCleveland Clinic South Pointe HospitalComment on above:Performed By: #### CMP, BNP #### [facility] [address] [address] [address] Sung Garcia SEENNormalNONE SEENThe [facility] HospitalComaspirus ironwood hospital on above:Performed By: #### CMP, BNP #### [facility] [address] [address] [address] Sung MooreCrystals LM Nom (Urine sed)NONE SEENNormalNONE SEENThe [facility] HospitalComment on above:Performed By: #### CMP, BNP #### [facility] [address] [address] [address] Sung Jonesthelial cells LM Ql (Urine sed)FEWAbnormalNONE SEEN /RAREThe [facility] HospitalComaspirus ironwood hospital on above:Performed By: #### CMP, BNP #### [facility] [address] [place] [address] Dr. Sung MooreMUCOUSTRACEAbnormalNONE SEENThe [facility] HospitalComaspirus ironwood hospital on above:Performed By: #### CMP, BNP #### [facility] [address] [address] [address] Sugn MoorePmvqkRSC17-97Ubafyrol2-6Uwt [facility] HospitalComment on above: Performed By: #### CMP, BNP #### [facility] [address] [address] [address] Sung MooreWBC (U) [#/Vol]/uLAbnormalNONE SEENThe [facility] HospitalComaspirus ironwood hospital on above:Performed By: #### CMP, BNP #### [facility] [address] [address] [address] Sung MooreAlbumin [Mass/volume] in Serum or PlasmaOrdered By: Bonnie Hendricks on 58-63-5569Ridyvju [Mass/Vol]3.5 g/dL3.2-5.5[facility] Basophils Auto (Bld) [#/Vol]Ordered By: Bonnie Hendricks on 06-22-2795Nizykujaq (Bld) [#/Vol]0.0 10*3/uL0.0-0.2FC[facility] Clinic [facility] GeneralBasophils/100 WBC Auto (Bld)Ordered By: Bonnie Hendricks on 46-32-0341Dqpmnzipw/100 WBC (Bld)0.4 %.[facility] HospitalCreatinine and Glomerular filtration rate.predicted panel (S/P/Bld)Ordered By: Bonnie Hendricks on 33-53-0997Kckrvwfmia [Mass/Vol]0.70 mg/dL 0.44-1.03Prov[facility] HospitalEosinophils Auto (Bld) [#/Vol]Ordered By: Bonnie Hendricks on 56-99-9254Qhnxkpibwvl (Bld) [#/Vol]0.2 10*3/uL0.0-0.45[facility] HospitalEosinophils/100 WBC Auto (Bld)Ordered By: Bonnie Hendricks on 71-14-8542Lfqfngyhger/100 WBC (Bld)3.0 %.[facility] Erythrocyte distribution width Auto (RBC) [Ratio]Ordered By: Bonnie Hendricks on 96-12-7176Cezpxhxxvwk distribution width (RBC) [Ratio]19.5 %11.9-15.3FC[facility] Clinic [facility] GeneralEstimated glomerular filtration rate (GFR) non- AmericanOrdered By: Bonnie Hendricks on 88-58-2468YQV/1.73 sq M.predicted among non- blacks MDRD (S/P/Bld) [Vol rate/Area]> 60 mL/MinProvidence HospitalGlobulin Calc (S) [Mass/Vol]Ordered By: Bonnie Hendricks on 11-31-1847Hgmjhuhb (S) [Mass/Vol]4.8 g/dLProvidence HospitalHematocrit Auto (Bld) [Volume fraction]Ordered By: Bonnie Hendricks on 48-98-4993Okduvpfzur (Bld) [Volume fraction]34.9 %34.0-46.4FCleveland Clinic Akron GeneralHemoglobin [Mass/volume] in BloodOrdered By: Bonnie Hendricks on 52-14-7028Ogphvjoqoh (Bld) [Mass/Vol]11.2 g/dL11.8-15.4FCleveland Clinic [facility] GeneralLeukocytes [#/volume] corrected for nucleated erythrocytes in Blood by Automated coun Ordered By: Bonnie Hendricks on 22-66-4461EWS corrected for nucl RBC Auto (Bld) [#/Vol] 5.2 10*3/uL3.8-11.6FCleveland Clinic [facility] GeneralLymphocytes Auto (Bld) [#/Vol]Ordered By: Bonnie Hendricks on 85-14-8806Uisqdabxqzm (Bld) [#/Vol]1.4 10*3/uL 1.00-4.8Providence HospitalLymphocytes/100 WBC Auto (Bld)Ordered By: Bonnie Hendricks on 04-43-3823Clqylylcpjd/100 WBC (Bld)27.8 %.[facility] HospitalH Auto (RBC) [Entitic mass]Ordered By: Bonnie Hendricks on 05-16-2022 MCH (RBC) [Entitic mass]26.2 pg24.7-34.3FC[facility] Clinic [facility] GeneralMCHC Auto (RBC) [Mass/Vol]Ordered By: Bonnie Hendricks on 70-50-2370VAHH (RBC) [Mass/Vol] 32.1 g/dL32.0-35.0Prov[facility] HospitalMCV Auto (RBC) [Entitic vol] Ordered By: Bonnie Hendricks on 14-04-3715REX (RBC) [Entitic vol]81.6 jN72-676XkiquhvhkProvidence HospitalMonocytes Auto (Bld) [#/Vol]Ordered By: Bonnie Hendricks on 69-29-6147Upqtjydrr (Bld) [#/Vol]0.3 10*3/uL0.0-0.8Providence HospitalMonocytes/100 WBC Auto (Bld)Ordered By: Bonnie Hendricks on 05-16-2022 Monocytes/100 WBC (Bld)6.3 %.[facility]idence HospitalNeutrophils Auto (Bld) [#/Vol]Ordered By: Bonnie Hendricks on 85-23-9405Kwjeapjlrgc (Bld) [#/Vol]3.2 10*3/uL1.8-7.7FCleveland Clinic [facility] GeneralNeutrophils/100 WBC Auto (Bld) Ordered By: Bonnie Hendricks on 11-07-7541Hqgnhvzdyie/100 WBC (Bld)62.5 %.[facility]idence HospitalNo Panel InformationOrdered By: Bonnie Hendricks on 05-16-2022 Estimated GFR ()> 60 mL/MinProvidence Hospital Comment on above:GFR estimated reference range: According to KDOQI guidelines, <60 ml/min/1.73m2 is sufficient todiagnose a patient with chronic kidney disease.Pharmacy Creatinine Clearance (ChemN/[facility] Nucleated erythrocytes [Presence] in Blood by Automated countOrdered By: Bonnie Hendricks on 41-17-1961Uzznyxivn RBC Auto Ql (Bld)0.1 /100{WBC}0-0.5FCleveland Clinic [facility] GeneralPlatelet mean volume Auto (Bld) [Entitic vol]Ordered By: Bonnie Hendricks on 94-24-6520Nzenpuhx mean volume (Bld) [Entitic vol]7.3 fL6.3-10.7 Providence HospitalPlatelets Auto (Bld) [#/Vol]Ordered By: Bonnie Hendricks on 76-10-9768Pyxkkvwxd (Bld) [#/Vol]303 10*3/jW677-261DhjovzsjdProvidence HospitalProtein [Mass/volume] in Serum or PlasmaOrdered By: Bonnie Hendricks on 62-16-0276Wzohare [Mass/Vol]8.3 g/dL6.1-7.9Providence HospitalRBC Auto (Bld) [#/Vol]Ordered By: Bonnie Hendricks on 29-55-6874VWS (Bld) [#/Vol]4.28 10*6/uL3.60-5.00[facility] Northerum or plasma alanine aminotransferase measurement without P-5'-P (enzymatic activiOrdered By: Bonnie Hendricks on 56-03-4848LKU No additional P-5'-P [Catalytic activity/Vol]15 U/L10-60 [facility] Northerum or plasma albumin/globulin mass ratio Ordered By: Bonnie Hendricks on 40-93-9788Qfxuanc/Globulin [Mass ratio]0.7 {ratio} [facility] Northerum or plasma alkaline phosphatase measurement (enzymatic activity/volume)Ordered By: Bonnie Hendricks on 13-43-3952SKS [Catalytic activity/Vol]96 U/D10-27TgkxrupdjPremier Health Miami [facility] Hospital Northerum or plasma anion gap determinationOrdered By: Bonnie Hendricks on 15-81-3468Alyiu gap [Moles/Vol]11.0 mmol/L6.0-15.0[facility] Northerum or plasma aspartate aminotransferase measurement (enzymatic activity/volume)Ordered By: Bonnie Hendricks on 56-03-7894PDW [Catalytic activity/Vol]18 U/W65-43DkhzpolsjPremier Health Miami [facility] Hospital Northerum or plasma calcium measurement (mass/volume)Ordered By: Bonnie Hendricks on 69-06-0153Rxtwdgg [Mass/Vol]9.2 mg/dL8.2-10.2FCleveland Clinic Fairview Hospitalerum or plasma cancer antigen 125 (CA-125) measurement (units/volume) Ordered By: Bonnie Hendricks on 45-28-2449Ryxmnh Ag 125 Qn18.3 [arb'U]/mL0.0-38.1 Providence HospitalComment on above:[place] Electrochemiluminescence Immunoassay(ECLIA)Values obtained with different assay methods or kits cannotbe used interchangeably. Results cannot be interpreted asabsolute evidence of the presence or absence of malignantdisease.Performed at: [employer] [id number] Director: Adrian Coello PhD, Phone: [phone] or plasma chloride measurement (moles/volume)Ordered By: Bonnie Hendricks on 23-01-3867Wicbzcsi [Moles/Vol]102 mmol/L 95-114[facility] Northerum or plasma glucose measurement (mass/volume)Ordered By: Bonnie Hendricks on 76-51-8984Mfckgnd [Mass/Vol]104 mg/dL 70-100Providence HospitalComment on above:ADA recommended reference rangeRandom Glucose Reference Range is dependent on time and content of last meal. Glucose of more than 200 mg/dL in a nonstressed, ambulatory subject supports the diagnosisof Diabetes Mellitus.Serum or plasma potassium measurement (moles/volume)Ordered By: Bonnie Hendricks on 94-09-9802Rvapsailp [Moles/Vol]4.1 mmol/L3.5-5.1FCleveland Clinic Fairview Hospitalerum or plasma sodium measurement (moles/volume)Ordered By: Bonnie Hendricks on 70-84-2472Pzqpfr [Moles/Vol]135 mmol/G440-255JgyaoeitjPremier Health Miami [facility] Hospital Northerum or plasma total bilirubin measurement (mass/volume)Ordered By: Bonnie Eladio on 05-16-2022 Bilirubin [Mass/Vol]0.5 mg/dL0.3-1.2FCleveland Clinic Fairview Hospitalerum or plasma total carbon dioxide measurement (moles/volume)Ordered By: Bonnie Eladio on 51-77-4169SB5 [Moles/Vol]26.1 mmol/L22.0-30.0[facility] Serum or plasma urea nitrogen measurement (mass/volume)Ordered By: Bonnie Eladio on 21-78-3146Unyj nitrogen [Mass/Vol]13 mg/dL9-23[facility] WBC Auto (Bld) [#/Vol]Ordered By: Bonnie Eladio on 05-37-7584SPB (Bld) [#/Vol]5.2 10*3/uL3.8-11.6FCleveland Clinic Akron GeneralCBC AUTO DIFFon 46-42-7399OJGE # 0.0 103/ulNormal0.0-0.1The [facility] HospitalComment on above:Performed By: #### CMP, BNP #### [facility] [address] [address] [address] Sung MooreBasophils/100 WBC (Bld)0.3 %Normal0.2-2.0[facility] Comment on above:Performed By: #### CMP, BNP #### [facility] [address] [address] [address] Sung Morrow #0.4 103/ulNormal0.0-0.7The [facility] HospitalComment on above: Performed By: #### CMP, BNP #### [facility] [address] [address] [address] Sung Huttonosinophils/100 WBC (Bld)5.6 %Normal0.9-7.0[facility] Comment on above:Performed By: #### CMP, BNP #### [facility] [address] [address] [address] Sung Huttonrythrocyte distribution width (RBC) [Ratio]16.0 %Critically high 11.0-15.0The [facility] HospitalComment on above:Performed By: #### CMP, BNP #### [facility] [address] [place] [address] Dr. Sung Amezcuaatocrit (Bld) [Volume fraction]27.2 %Critically low36.0-48.0 The [facility] HospitalComment on above:Performed By: #### CMP, BNP #### [facility] [address] [place] [address] Dr. Sung MooreHemoglobin (Bld) [Mass/Vol]8.6 g/dLCritically low12.0-16.0[facility]ma Medical CenterComment on above:Performed By: #### CMP, BNP #### [facility] [address] [place] [address] Dr. Sung Nj #0.03 10e3/ulNormal0.00-0.03The [facility] HospitalComaspirus ironwood hospital on above:Performed By: #### CMP, BNP #### [facility] [address] [place] [address] Dr. Sung Nj %0.5 %Normal0.0-0.5The [facility] HospitalComment on above: Performed By: #### CMP, BNP #### [facility] [address] [place] [address] Dr. Sung Morse #1.8 103/ulNormal1.2-3.8The [facility] HospitalComment on above:Performed By: #### CMP, BNP #### [facility] [address] [place] [address] Dr. Sung Webbhocytes/100 WBC (Bld)27.2 %Tupdwd58.5-60.0The [facility] HospitalComment on above:Performed By: #### CMP, BNP #### [facility] [address] [place] [address] Dr. Sung MartinUAL DIFF REQNONormalThe [facility] HospitalComment on above: Performed By: #### CMP, BNP #### [facility] [address] [place] [address] Dr. Sung Napoles (RBC) [Entitic mass]25.9 pgCritically low26.7-34.0The [facility] HospitalComment on above:Performed By: #### CMP, BNP #### [facility] [address] [place] [address] Dr. Sung Viramontes (RBC) [Mass/Vol]31.6 g/yFLkzjha83.9-35.2The [facility] HospitalComment on above:Performed By: #### CMP, BNP #### [facility] [address] [place] [address] Dr. Sung Weaver (RBC) [Entitic vol]81.9 iDRjbvks33.0-99.0The [facility] HospitalComment on above:Performed By: #### CMP, BNP #### [facility] [address] [place] [address] Dr. Sung Elizondo #0.7 103/ulNormal0.3-0.8The [facility] HospitalComment on above:Performed By: #### CMP, BNP #### [facility] [address] [place] [address] Dr. Sung Maneocytes/100 WBC (Bld)10.2 %Normal1.7-12.0[facility] Comment on above:Performed By: #### CMP, BNP #### [facility] [address] [place] [address] Dr. Sung Reyes #3.7 103/ulNormal1.4-6.5The [facility] HospitalComment on above:Performed By: #### CMP, BNP #### [facility] [address] [place] [address] Dr. Sung Multaniutrophils/100 WBC (Bld)56.2 %Rwnesf46.0-75.0The [facility] HospitalComment on above:Performed By: #### CMP, BNP #### [facility] [address] [place] [address] Dr. Sung Campoverde mean volume (Bld) [Entitic vol]8.7 fLCritically low 9.5-13.5The [facility] HospitalComment on above:Performed By: #### CMP, BNP #### [facility] [address] [place] [address] Dr. Sung MoorePLT370 103/mwBjpnvx653-475Ebj [facility] on above: Performed By: #### CMP, BNP #### [facility] [address] [place] [address] Dr. Sung MooreRBC3.32 106/ulCritically low4.20-5.40The [facility] on above:Performed By: #### CMP, BNP #### [facility] [address] [place] [address] Dr. Sung MooreWBC6.6 103/ulNormal4.0-11.0The [facility] on above: Performed By: #### CMP, BNP #### [facility] [address] [place] [address] Dr. Sung Rushing 97-41-7446SOG48.2 mg/dLCritically high<=1.0The [facility] HospitalComaspirus ironwood hospital on above:Performed By: #### CRP, CMP #### [facility] [address] [place] [address] Dr. Sung Alvarez URINEon 90-53-7117FYGZAFJ URINEIsolate 1 Escherichia coli >100,000 cfu/mL of ORGANISM [...] <=0.12 S F Nitrofurantoin <=16 S F Trimethoprim/Sulfamethoxazole <=20 S FNormalThe [facility] on above:Performed By: #### CRP, CMP #### [facility] [address] [place] [address] Dr. Sung Casillas 14(COMP METB)on 37-13-6039Heheavb [Mass/Vol]2.0 g/dL Critically low3.4-5.0The [facility] HospitalComment on above:Performed By: #### CRP, CMP #### [facility] [address] [place] [address] Dr. Sung MooreAlbumin/Globulin [Mass ratio]0.4 {ratio}NormalThe [facility]ion HospitalComment on above:Performed By: #### CRP, CMP #### [facility] [address] [address] [address] Sung ArnettP [Catalytic activity/Vol]115 U/XNbshux68-242Phh [facility] HospitalComment on above:Performed By: #### CRP, CMP #### [facility] [address] [place] [address] Dr. Sung Ivy [Catalytic activity/Vol]21 U/CVobyqa53-15Dqj [facility] HospitalComment on above:Performed By: #### CRP, CMP #### [facility] [address] [place] [address] Dr. uSng Armstrong gap [Moles/Vol]8.7 mmol/LNormalThe [facility] HospitalComment on above:Performed By: #### CRP, CMP #### [facility] [address] [place] [address] Dr. Sung MooreAST [Catalytic activity/Vol]25 U/RNnctfz83-98Lym [facility] HospitalComment on above:Performed By: #### CRP, CMP #### [facility] [address] [address] [address] Sung MooreBilirubin [Mass/Vol]0.2 mg/dLNormal0.2-1.0[facility] Comment on above:Performed By: #### CRP, CMP #### [facility] [address] [place] [address] Dr. Sung MooreCalcium [Mass/Vol]8.5 mg/dLNormal8.5-10.1[facility] Comment on above:Performed By: #### CRP, CMP #### [facility] [address] [address] [address] Sung MooreChloride [Moles/Vol]105 mmol/VWkbscy82-340Psx [facility] Comment on above:Performed By: #### CRP, CMP #### [facility] [address] [address] [address] Sung MooreCO2 [Moles/Vol]26.2 mmol/CEwyurj26.0-32.0[facility] Comment on above:Performed By: #### CRP, CMP #### [facility] [address] [place] [address] Dr. Sung MooreCreatinine [Mass/Vol]0.69 mg/dLNormal0.55-1.02The [facility] HospitalComment on above:Performed By: #### CRP, CMP #### [facility] [address] [place] [address] Dr. Sung HuttonGFR-AF ROMANIAN>60Normal>=60The [facility] HospitalComment on above:Performed By: #### CRP, CMP #### [facility] [address] [place] [address] Dr. Sung HuttonGFR-NON AF ROMANIAN>60Normal>=60The [facility] HospitalComment on above:Performed By: #### CRP, CMP #### [facility] [address] [place] [address] Dr. Sung MooreGlobulin (S) [Mass/Vol]5.0 g/dLNormalThe [facility] HospitalComment on above:Performed By: #### CRP, CMP #### [facility] [address] [place] [address] Dr. Sung MooreGlucose [Mass/Vol]101 mg/gTDsfbld02-558Wbp [facility] Comment on above:Performed By: #### CRP, CMP #### [facility] [address] [address] [address] Sung MoorePotassium [Moles/Vol]3.9 mmol/LNormal3.5-5.1The [facility] Comment on above:Performed By: #### CRP, CMP #### [facility] [address] [place], [place] [id number] Dr. Sung MooreProtein [Mass/Vol]7.0 g/dLNormal6.4-8.2The [facility] Comment on above:Performed By: #### CRP, CMP #### [facility] [address] [place] [address] Dr. Sung MooreSodium [Moles/Vol]136 mmol/MDuevyg634-037Abc [facility] Comment on above:Performed By: #### CRP, CMP #### [facility] [address] [place] [address] Dr. Sung MooreUrea nitrogen [Mass/Vol]15.0 mg/dLNormal7.0-18.0The [facility] HospitalComment on above:Performed By: #### CRP, CMP #### [facility] [address] [place] [address] Dr. Sung Hayes nitrogen/Creatinine [Mass ratio]21.7 mg/mgNormalThe [facility] HospitalComment on above:Performed By: #### CRP, CMP #### [facility] [address] [place] [address] Dr. Sung Jasso AUTO DIFFon 58-70-3007YEXA #0.0 103/ulNormal0.0-0.1The [facility] HospitalComment on above:Performed By: #### CMP, BNP #### [facility] [address] [place] [address] Dr. Sung MooreBasophils/100 WBC (Bld)0.3 %Normal0.2-2.0The [facility] Comment on above:Performed By: #### CMP, BNP #### [facility] [address] [place] [address] Dr. Sung Morrow #0.3 103/ulNormal0.0-0.7The [facility] HospitalComment on above: Performed By: #### CMP, BNP #### [facility] [address] [place] [address] Dr. Sung Huttonosinophils/100 WBC (Bld)2.6 %Normal0.9-7.0The [facility] Comment on above:Performed By: #### CMP, BNP #### [facility] [address] [place] [address] Dr. Sung Huttonrythrocyte distribution width (RBC) [Ratio]15.7 %Critically high 11.0-15.0The [facility] HospitalComment on above:Performed By: #### CMP, BNP #### [facility] [address] [place] [address] Dr. Sung MooreHematocrit (Bld) [Volume fraction]26.8 %Critically low36.0-48.0 The [facility] HospitalComment on above:Performed By: #### CMP, BNP #### [facility] [address] [place] [address] Dr. Sung MooreHemoglobin (Bld) [Mass/Vol]8.6 g/dLCritically low12.0-16.0The [facility] HospitalComment on above:Performed By: #### CMP, BNP #### [facility] [address] [place] [address] Dr. Sung Nj #0.06 10e3/ulCritically high0.00-0.03The [facility] Comment on above:Performed By: #### CMP, BNP #### [facility] [address] [place] [address] Dr. Sung Nj %0.6 %Critically high0.0-0.5The [facility] HospitalComment on above:Performed By: #### CMP, BNP #### [facility] [address] [place] [address] Dr. Sung Morse #1.7 103/ulNormal1.2-3.8The [facility] HospitalComment on above:Performed By: #### CMP, BNP #### [facility] [address] [place] [address] Dr. Sung Webbhocytes/100 WBC (Bld)17.4 %Critically low20.5-60.0The [facility] HospitalComment on above:Performed By: #### CMP, BNP #### [facility] [address] [place] [address] Dr. Sung Hobbs DIFF REQNONormalThe [facility] HospitalComment on above: Performed By: #### CMP, BNP #### [facility] [address] [place] [address] Dr. Sung Viramontes (RBC) [Entitic mass]26.3 pgCritically low26.7-34.0The [facility] HospitalComment on above:Performed By: #### CMP, BNP #### [facility] [address] [place] [address] Dr. Sung Viramontes (RBC) [Mass/Vol]32.1 g/zBSkhsqk38.9-35.2The [facility] HospitalComment on above:Performed By: #### CMP, BNP #### [facility] [address] [place] [address] Dr. Sung Viramontes (RBC) [Entitic vol]82.0 aKZhnyju04.0-99.0The [facility] HospitalComment on above:Performed By: #### CMP, BNP #### [facility] [address] [place] [address] Dr. Sung Elizondo #1.1 103/ulCritically high0.3-0.8ThAdena Pike Medical Center Comment on above:Performed By: #### CMP, BNP #### [facility] [address] [place] [address] Dr. Sung Maneocytes/100 WBC (Bld)11.4 %Normal1.7-12.0[facility] Comment on above:Performed By: #### CMP, BNP #### [facility] [address] [place] [address] Dr. Sung Reyes #6.7 103/ulCritically high1.4-6.5The [facility] Comment on above:Performed By: #### CMP, BNP #### [facility] [address] [place] [address] Dr. Sung Multaniutrophils/100 WBC (Bld)67.7 %Vrigpa18.0-75.0The [facility] HospitalComment on above:Performed By: #### CMP, BNP #### [facility] [address] [place] [address] Dr. Sung Crumlet mean volume (Bld) [Entitic vol]8.8 fLCritically low 9.5-13.5The [facility] HospitalComment on above:Performed By: #### CMP, BNP #### [facility] [address] [place] [address] Dr. Sung MoorePLT301 103/ytImwxyx172-008Dzo [facility] HospitalComment on above: Performed By: #### CMP, BNP #### [facility] [address] [place] [address] Dr. Sung MooreRBC3.27 106/ulCritically low4.20-5.40The [facility] HospitalComment on above:Performed By: #### CMP, BNP #### [facility] [address] [place] [address] Dr. Sung MooreWBC9.8 103/ulNormal4.0-11.0The [facility] HospitalComment on above: Performed By: #### CMP, BNP #### [facility] [address] [place] [address] Dr. Sung Rushing 93-11-4029KOW69.1 mg/dLCritically high<=1.0The [facility] HospitalComment on above:Performed By: #### CMP, BNP #### [facility] [address] [place] [address] Dr. Sung MoorePROF 14(COMP METB)on 78-08-5428Lzkkmlf [Mass/Vol]1.9 g/dL Critically low3.4-5.0The [facility] HospitalComment on above:Performed By: #### CMP, BNP #### [facility] [address] [place] [address] Dr. Sung MooreAlbumin/Globulin [Mass ratio]0.4 {ratio}NormalThe [facility] HospitalComment on above:Performed By: #### CMP, BNP #### [facility] [address] [place] [address] Dr. Sung Wilhelm [Catalytic activity/Vol]91 U/CBmnoiv65-876Jvk [facility] HospitalComment on above:Performed By: #### CMP, BNP #### [facility] [address] [address] [address] Sung Ivy [Catalytic activity/Vol]14 U/ILkhhfw58-94Sqn [facility] HospitalComment on above:Performed By: #### CMP, BNP #### [facility] [address] [address] [address] Sung Armstrong gap [Moles/Vol]13.1 mmol/LNormalMetrohealth [facility] Comment on above:Performed By: #### CMP, BNP #### [facility] [address] [address] [address] Sung MooreAST [Catalytic activity/Vol]23 U/AAbwwor78-07Ibo [facility] HospitalComment on above:Performed By: #### CMP, BNP #### [facility] [address] [place] [address] Dr. Sung MooreBilirubin [Mass/Vol]0.3 mg/dLNormal0.2-1.0[facility] Comment on above:Performed By: #### CMP, BNP #### [facility] [address] [place] [address] Dr. Sung MooreCalcium [Mass/Vol]8.6 mg/dLNormal8.5-10.1[facility] Comment on above:Performed By: #### CMP, BNP #### [facility] [address] [place] [address] Dr. Sung MooreChloride [Moles/Vol]105 mmol/BAphrcw05-632KfwMetrohealth Parma Medical Center Comment on above:Performed By: #### CMP, BNP #### [facility] [address] [place] [address] Dr. Sung MooreCO2 [Moles/Vol]21.7 mmol/TEgfefl15.0-32.0The [facility] Comment on above:Performed By: #### CMP, BNP #### [facility] [address] [place] [address] Dr. Sung MooreCreatinine [Mass/Vol]0.67 mg/dLNormal0.55-1.02[facility] CenterComment on above:Performed By: #### CMP, BNP #### [facility] [address] [place] [address] Dr. Sung HuttonGFR-AF ROMANIAN>60Normal>=60The [facility] HospitalComment on above:Performed By: #### CMP, BNP #### [facility] [address] [place] [address] Dr. Sung HuttonGFR-NON AF ROMANIAN>60Normal>=60[facility] CenterComment on above:Performed By: #### CMP, BNP #### [facility] [address] [place] [address] Dr. Sung MooreGlobulin (S) [Mass/Vol]5.0 g/dLNormalThe [facility] HospitalComment on above:Performed By: #### CMP, BNP #### [facility] [address] [place] [address] Dr. Sung MooreGlucose [Mass/Vol]107 mg/dLCritically hrve04-288AfeMetrohealth Parma Medical CenterComment on above:Performed By: #### CMP, BNP #### [facility] [address] [place] [address] Dr. Sung MoorePotassium [Moles/Vol]3.8 mmol/LNormal3.5-5.1[facility] Comment on above:Performed By: #### CMP, BNP #### [facility] [address] [place] [address] Dr. Sung MooreProtein [Mass/Vol]6.9 g/dLNormal6.4-8.2[facility] Comment on above:Performed By: #### CMP, BNP #### [facility] [address] [place] [address] Dr. Sung MooreSodium [Moles/Vol]136 mmol/WSlghgb708-856Gzt [facility] Comment on above:Performed By: #### CMP, BNP #### [facility] [address] [place] [address] Dr. Sung MooreUrea nitrogen [Mass/Vol]10.0 mg/dLNormal7.0-18.0The [facility] Shawment on above:Performed By: #### CMP, BNP #### [facility] [address] [place] [address] Dr. Sung Hayes nitrogen/Creatinine [Mass ratio]14.9 mg/mgNormalThe [facility] HospitalComment on above:Performed By: #### CMP, BNP #### [facility] [address] [place] [address] Dr. Sung Pope CARL 3-6on 87-50-1983CW [Catalytic activity/Vol]40 U/L Qppjwe77-193IvjSouthwest General Health Center on above:Performed By: #### CRP, CMP #### [facility] [address] [place] [address] Dr. Sung Bender.MB [Mass/Vol]0.81 ng/mLNormal<=3.60[facility] Comment on above:Performed By: #### CRP, CMP #### [facility] [address] [place] [address] Dr. Sung ClarkOP9.0 pg/mLNormal4.0-51.3The [facility] HospitalComment on above:Result Comment: CUT-OFF POINTS HAVE BEEN ESTABLISHED BASED ON THE FOURTH UNIVERSAL DEFINITIONS OF MYOCARDIAL INFARCTION. THE UPPER REFERENCE LIMIT (URL) OF TROPONIN, DEFINED THE 99TH PERCENTILE OF cTnI DISTRIBUTION IN A REFERENCE POPULATION, HAS BEEN CONFIRMED THE DECISION THRESHOLD FOR [place] DIAGNOSIS.Performed By: #### CRP, CMP #### [facility] [address] [place] [address] Dr. Sung Bender [Catalytic activity/Vol]42 U/YKaurhi46-864TsmMetrohealth Parma Medical CenterComaspirus ironwood hospital on above:Performed By: #### CMP, BNP #### [facility] [address] [place] [address] Dr. Sung Bender.MB [Mass/Vol]0.90 ng/mLNormal<=3.60[facility] Comment on above:Performed By: #### CMP, BNP #### [facility] [address] [place] [address] Dr. Yilan ChangHSTROP9.7 pg/mLNormal4.0-51.3TOhioHealth Mansfield Hospitalment on above:Result Comment: CUT-OFF POINTS HAVE BEEN ESTABLISHED BASED ON THE FOURTH UNIVERSAL DEFINITIONS OF MYOCARDIAL INFARCTION. THE UPPER REFERENCE LIMIT (URL) OF TROPONIN, DEFINED THE 99TH PERCENTILE OF cTnI DISTRIBUTION IN A REFERENCE POPULATION, HAS BEEN CONFIRMED THE DECISION THRESHOLD FOR [place] DIAGNOSIS.Performed By: #### CMP, BNP #### [facility] [address] [place] [address] Dr. Sung Pope CARL ADMITon 56-59-8264VZ [Catalytic activity/Vol]44 U/L Fmckmq49-701KtdMetrohealth Parma Medical CenterComment on above:Performed By: #### LACT #### [facility] [address] [place] [address] Dr. Sung Bender.MB [Mass/Vol]0.47 ng/mLNormal<=3.60[facility] Comment on above:Performed By: #### LACT #### [facility] [address] [place] [address] Dr. Sung McphersonTROP9.1 pg/mLNormal4.0-51.3The [facility] on above:Result Comment: CUT-OFF POINTS HAVE BEEN ESTABLISHED BASED ON THE FOURTH UNIVERSAL DEFINITIONS OF MYOCARDIAL INFARCTION. THE UPPER REFERENCE LIMIT (URL) OF TROPONIN, DEFINED THE 99TH PERCENTILE OF cTnI DISTRIBUTION IN A REFERENCE POPULATION, HAS BEEN CONFIRMED THE DECISION THRESHOLD FOR [place] DIAGNOSIS.Performed By: #### LACT #### [facility] [address] [place] [address] Dr. Sung RamosO55 ng/mLNormal9-82[facility] Hospitalment on above: Performed By: #### LACT #### [facility] [address] [place] [address] Dr. Sung Jasso AUTO DIFFon [id number] #0.0 103/ulNormal0.0-0.1[facility] CenterComment on above:Performed By: #### CRP, CMP #### [facility] [address] [place] [address] Dr. Sung MooreBasophils/100 WBC (Bld)0.2 %Normal0.2-2.0[facility] Comment on above:Performed By: #### CRP, CMP #### [facility] [address] [place] [address] Dr. Sung Morrow #0.1 103/ulNormal0.0-0.7The [facility] HospitalComment on above: Performed By: #### CRP, CMP #### [facility] [address] [place] [address] Dr. Sung Huttonosinophils/100 WBC (Bld)0.6 %Critically low0.9-7.0The [facility] HospitalComment on above:Performed By: #### CRP, CMP #### [facility] [address] [place] [address] Dr. Sung Huttonrythrocyte distribution width (RBC) [Ratio]15.7 %Critically high 11.0-15.0The [facility] HospitalComment on above:Performed By: #### CRP, CMP #### [facility] [address] [place] [address] Dr. Sung MooreHematocrit (Bld) [Volume fraction]25.7 %Critically low36.0-48.0 The [facility] HospitalComment on above:Performed By: #### CRP, CMP #### [facility] [address] [place] [address] Dr. Sung MooreHemoglobin (Bld) [Mass/Vol]8.3 g/dLCritically low12.0-16.0The [facility] HospitalComment on above:Performed By: #### CRP, CMP #### [facility] [address] [place] [address] Dr. Sung Nj #0.12 10e3/ulCritically high0.00-0.03The [facility] Comment on above:Performed By: #### CRP, CMP #### [facility] [address] [place] [address] Dr. Sung Nj %1.0 %Critically high0.0-0.5The [facility] HospitalComment on above:Performed By: #### CRP, CMP #### [facility] [address] [address] [address] Sung Morse #2.0 103/ulNormal1.2-3.8The [facility] HospitalComment on above:Performed By: #### CRP, CMP #### [facility] [address] [address] [address] Sung Webbhocytes/100 WBC (Bld)16.7 %Critically low20.5-60.0The [facility] HospitalComment on above:Performed By: #### CRP, CMP #### [facility] [address] [address] [address] Sung Hobbs DIFF REQNONormalThe [facility] HospitalComment on above: Performed By: #### CRP, CMP #### [facility] [address] [place] [address] Dr. Sung Viramontes (RBC) [Entitic mass]26.4 pgCritically low26.7-34.0The [facility] HospitalComment on above:Performed By: #### CRP, CMP #### [facility] [address] [place] [address] Dr. Sung Viramontes (RBC) [Mass/Vol]32.3 g/sZXuszuk28.9-35.2The [facility] HospitalComment on above:Performed By: #### CRP, CMP #### [facility] [address] [place] [address] Dr. Sung Viramontes (RBC) [Entitic vol]81.8 wQDmbxzy62.0-99.0The [facility] HospitalComment on above:Performed By: #### CRP, CMP #### [facility] [address] [address] [address] Sung Elizondo #1.3 103/ulCritically high0.3-0.8[facility] Comment on above:Performed By: #### CRP, CMP #### [facility] [address] [place] [address] Dr. Sung Maneocytes/100 WBC (Bld)10.8 %Normal1.7-12.0[facility] Comment on above:Performed By: #### CRP, CMP #### [facility] [address] [place] [address] Dr. Sung Reyes #8.6 103/ulCritically high1.4-6.5[facility] Comment on above:Performed By: #### CRP, CMP #### [facility] [address] [place] [address] Dr. Sung Multaniutrophils/100 WBC (Bld)70.7 %Psoujk27.0-75.0The [facility] HospitalComment on above:Performed By: #### CRP, CMP #### [facility] [address] [place] [address] Dr. Sung Campoverde mean volume (Bld) [Entitic vol]8.6 fLCritically low 9.5-13.5The [facility] HospitalComment on above:Performed By: #### CRP, CMP #### [facility] [address] [place] [address] Dr. Sung AlexisT305 103/ddUswoim262-451Suc [facility] HospitalComment on above: Performed By: #### CRP, CMP #### [facility] [address] [place] [address] Dr. Sung OvalleC3.14 106/ulCritically low4.20-5.40The [facility] HospitalComment on above:Performed By: #### CRP, CMP #### [facility] [address] [place] [address] Dr. Sung MooreWBC12.1 103/ulCritically high4.0-11.0The [facility] HospitalComment on above:Performed By: #### CRP, CMP #### [facility] [address] [place] [address] Dr. Sung JohnsonSO #0.0 103/ulNormal0.0-0.1The [facility] HospitalComment on above:Performed By: #### CMP, BNP #### [facility] [address] [place] [address] Dr. Yilan ChangBasophils/100 WBC (Bld)0.1 %Critically low0.2-2.0The [facility] Shawment on above:Performed By: #### CMP, BNP #### [facility] [address] [place] [address] Dr. Sung Morrow #0.0 103/ulNormal0.0-0.7The [facility] HospitalComment on above: Performed By: #### CMP, BNP #### [facility] [address] [place] [address] Dr. Sung Huttonosinophils/100 WBC (Bld)0.2 %Critically low0.9-7.0The [facility] HospitalComment on above:Performed By: #### CMP, BNP #### [facility] [address] [place] [address] Dr. Sung Huttonrythrocyte distribution width (RBC) [Ratio]15.6 %Critically high 11.0-15.0The [facility] HospitalComment on above:Performed By: #### CMP, BNP #### [facility] [address] [place] [address] Dr. Sung MooreHematocrit (Bld) [Volume fraction]30.2 %Critically low36.0-48.0 The [facility] HospitalComment on above:Performed By: #### CMP, BNP #### [facility] [address] [place] [address] Dr. Sung MooreHemoglobin (Bld) [Mass/Vol]9.7 g/dLCritically low12.0-16.0The [facility] HospitalComment on above:Performed By: #### CMP, BNP #### [facility] [address] [place] [address] Dr. Sung Nj #0.10 10e3/ulCritically high0.00-0.03The [facility] Comment on above:Performed By: #### CMP, BNP #### [facility] [address] [place] [address] Dr. Sung Nj %0.7 %Critically high0.0-0.5The [facility] HospitalComment on above:Performed By: #### CMP, BNP #### [facility] [address] [address] [address] Sung Morse #1.8 103/ulNormal1.2-3.8The [facility] HospitalComment on above:Performed By: #### CMP, BNP #### [facility] [address] [place] [address] Dr. Sung Webbhocytes/100 WBC (Bld)11.9 %Critically low20.5-60.0The [facility] HospitalComment on above:Performed By: #### CMP, BNP #### [facility] [address] [place] [address] Dr. Sung Hobbs DIFF REQNONormalThe [facility] HospitalComment on above: Performed By: #### CMP, BNP #### [facility] [address] [place] [address] Dr. Sung Napoles (RBC) [Entitic mass]25.9 pgCritically low26.7-34.0The [facility] HospitalComment on above:Performed By: #### CMP, BNP #### [facility] [address] [place] [address] Dr. Sung Viramontes (RBC) [Mass/Vol]32.1 g/yXIcvjvl56.9-35.2The [facility] HospitalComment on above:Performed By: #### CMP, BNP #### [facility] [address] [place] [address] Dr. Sung Weaver (RBC) [Entitic vol]80.7 fLCritically low81.0-99.0The [facility] HospitalComment on above:Performed By: #### CMP, BNP #### [facility] [address] [place] [address] Dr. Sung Elizondo #1.4 103/ulCritically high0.3-0.8The [facility] Comment on above:Performed By: #### CMP, BNP #### [facility] [address] [place] [address] Dr. Sung Maneocytes/100 WBC (Bld)9.3 %Normal1.7-12.0The [facility] Comment on above:Performed By: #### CMP, BNP #### [facility] [address] [place] [address] Dr. Sung Reyes #11.7 103/ulCritically high1.4-6.5The [facility] Comment on above:Performed By: #### CMP, BNP #### [facility] [address] [place] [address] Dr. Sung Multaniutrophils/100 WBC (Bld)77.8 %Critically high43.0-75.0The [facility] HospitalComment on above:Performed By: #### CMP, BNP #### [facility] [address] [place] [address] Dr. Sung Campoverde mean volume (Bld) [Entitic vol]8.5 fLCritically low 9.5-13.5The [facility] HospitalComment on above:Performed By: #### CMP, BNP #### [facility] [address] [place] [address] Dr. Sung AlexisT342 103/qqEuecjg653-573Hdw [facility] HospitalComment on above: Performed By: #### CMP, BNP #### [facility] [address] [place] [address] Dr. Sung MooreRBC3.74 106/ulCritically low4.20-5.40The [facility] HospitalComment on above:Performed By: #### CMP, BNP #### [facility] [address] [place] [address] Dr. Sung MooreWBC15.1 103/ulCritically high4.0-11.0The [facility] HospitalComment on above:Performed By: #### CMP, BNP #### [facility] [address] [place] [address] Dr. Sung Rushing 95-74-6979VYD05.7 mg/dLCritically high<=1.0The [facility] HospitalComment on above:Performed By: #### LACT #### [facility] [address] [place] [address] Dr. Sung MooreCT HEAD WO CONon [id number] HEAD WO CONEXAM: CT HEAD WO CON 03/19/2022 10:52 PM [...] Electronically authenticated by: TARAS FREIRE Date: 2022-03-19 23:59NoCleveland Clinic South Pointe HospitalCovid-19 PCR (CVDTBH)on [id number]-CoV-2 (COVID-19) RNA ROMY+probe Ql (Unsp spec)Not detectedNormalNOT DETECTEDThe [facility] Comment on above:Result Comment: When diagnostic testing is negative, the [...] for this test is supported by the Burial Agent of Health and Human Service's declaration that circumstances exist to justify the emergency use of in vitro diagnostics for the detection and/or diagnosis of the virus that causes COVID-19. This EUA will remain in effect for the duration of the COVID-19 declaration justifying emergency of IVDs, unless it is terminated or revoked by the FDA (after which the test may no longer be used).Performed By: #### CRP, CMP #### [facility] [address] [address] [address] Sung Valentine URINE PROFILEon 89-35-8161Zmjzbudlj Ql (U)NegativeNormal NEGATIVEMetrohealth Parma Medical CenterComaspirus ironwood hospital on above:Performed By: #### CMP, BNP #### [facility] [address] [address] [address] Sung MooreClarity (U)CLEARNormalCLEARMetrohealth Parma Medical CenterComaspirus ironwood hospital on above: Performed By: #### CMP, BNP #### [facility] [address] [place] [address] Dr. Sung MooreColor (U)YELLOWNormalYELLOWMetrohealth Parma Medical CenterComment on above: Performed By: #### CMP, BNP #### [facility] [address] [place] [address] Dr. Sung Junior micrscopic examination will be performed if indicated. NormalMetrohealth Parma Medical CenterComment on above:Performed By: #### CMP, BNP #### [facility] [address] [place] [address] Dr. Sung MooreGlucose Ql (U)NegativeNormalNEGATIVEMetrohealth Parma Medical CenterComaspirus ironwood hospital on above:Performed By: #### CMP, BNP #### [facility] [address] [place] [address] Dr. Sung MooreHemoglobin Ql (U)MODERATEAbnormalNEGTuscarawas Hospital Comment on above:Performed By: #### CMP, BNP #### [facility] [address] [place] [address] Dr. Sung MooreKetones Ql (U)NegativeNormalNEGATIVEMetrohealth Parma Medical CenterComaspirus ironwood hospital on above:Performed By: #### CMP, BNP #### [facility] [address] [place] [address] Dr. Sung MooreLEUKOCYTESLARGEAbnormalNEGTuscarawas HospitalComaspirus ironwood hospital on above:Performed By: #### CMP, BNP #### [facility] [address] [place] [address] Dr. Sung MooreNitrite Ql (U)PositiveAbnormalNEGTuscarawas Hospital Comment on above:Performed By: #### CMP, BNP #### [facility] [address] [address] [address] Sung MoorepH (U)6.0 [pH]Normal5-9The [facility] HospitalComment on above: Performed By: #### CMP, BNP #### [facility] [address] [place] [address] Dr. Sung MooreSPEC GRAVITY1.834Hsxarr5.005-<=1.025The [facility] HospitalComment on above:Performed By: #### CMP, BNP #### [facility] [address] [place] [address] Dr. Sung Mullen PROTEINNegativeNormalNEGATIVE/ TRACEThe [facility] Comment on above:Performed By: #### CMP, BNP #### [facility] [address] [place] [address] Dr. Sung Meneses MICRO INDINDICATEDNormalThe [facility] HospitalComment on above: Performed By: #### CMP, BNP #### [facility] [address] [place] [address] Dr. Sung Cotabilinogen Qn (U)0.2 {David'U}/dLNormal0.2 - 1.0The [facility] HospitalComment on above:Performed By: #### CMP, BNP #### [facility] [address] [place] [address] Dr. Sung WinklerCTATE/LACTIC ACIDon [id number] [Moles/Vol]0.6 mmol/L Normal0.4-1.9[facility] Parma Medical CenterComment on above:Performed By: #### CRP, CMP #### [facility] [address] [place] [address] Dr. Sung Winklerctate [Moles/Vol]0.8 mmol/LNormal0.4-1.9[facility] Comment on above:Performed By: #### LACT #### [facility] [address] [place] [address] Dr. Sung MoorePONTE VEDRA OF CARE GLUCOSEon [id number] [Mass/Vol]148 mg/dL Critically osvf03-669Qpq [facility] HospitalComment on above:Performed By: #### LACT #### [facility] [address] [place] [address] Dr. Sung MoorePROF CHEM 8 (BAS METB)on [id number] gap [Moles/Vol]10.6 mmol/LNormalThe [facility] HospitalComment on above:Performed By: #### CMP, BNP #### [facility] [address] [place] [address] Dr. Sung MooreCalcium [Mass/Vol]8.5 mg/dLNormal8.5-10.1The [facility] Comment on above:Performed By: #### CMP, BNP #### [facility] [address] [place] [address] Dr. Sung MooreChloride [Moles/Vol]102 mmol/DIrglpg57-382Eqv [facility] Comment on above:Performed By: #### CMP, BNP #### [facility] [address] [place] [address] Dr. Sung MooreCO2 [Moles/Vol]24.8 mmol/RJahfhg93.0-32.0The [facility] Comment on above:Performed By: #### CMP, BNP #### [facility] [address] [place] [address] Dr. Sung MooreCreatinine [Mass/Vol]0.77 mg/dLNormal0.55-1.02The [facility] HospitalComment on above:Performed By: #### CMP, BNP #### [facility] [address] [place] [address] Dr. Sung HuttonGFR-AF ROMANIAN>60Normal>=60The [facility] HospitalComment on above:Performed By: #### CMP, BNP #### [facility] [address] [place] [address] Dr. Sung HuttonGFR-NON AF ROMANIAN>60Normal>=60The [facility] HospitalComment on above:Performed By: #### CMP, BNP #### [facility] [address] [place] [address] Dr. Sung MooreGlucose [Mass/Vol]117 mg/dLCritically vkar44-972Zqv [facility] HospitalComment on above:Performed By: #### CMP, BNP #### [facility] [address] [address] [address] Sung MoorePotassium [Moles/Vol]3.4 mmol/LCritically low3.5-5.1The [facility] HospitalComment on above:Performed By: #### CMP, BNP #### [facility] [address] [address] [address] Sung MooreSodium [Moles/Vol]134 mmol/LCritically zyy582-135Ckx [facility] HospitalComment on above:Performed By: #### CMP, BNP #### [facility] [address] [place] [address] Dr. Sung MooreUrea nitrogen [Mass/Vol]12.0 mg/dLNormal7.0-18.0The [facility] HospitalComment on above:Performed By: #### CMP, BNP #### [facility] [address] [place] [address] Dr. Sung Hayes nitrogen/Creatinine [Mass ratio]15.6 mg/mgNormalThe [facility] HospitalComment on above:Performed By: #### CMP, BNP #### [facility] [address] [place] [address] Dr. Sung MooreAnion gap [Moles/Vol]13.7 mmol/LNormalThe [facility] Comment on above:Performed By: #### LACT #### [facility] [address] [place] [address] Dr. Sung MooreCalcium [Mass/Vol]8.7 mg/dLNormal8.5-10.1The [facility] Comment on above:Performed By: #### LACT #### [facility] [address] [place] [address] Dr. Sung MooreChloride [Moles/Vol]93 mmol/LCritically pan95-353Mss [facility] HospitalComment on above:Performed By: #### LACT #### [facility] [address] [address] [address] Sung MooreCO2 [Moles/Vol]23.3 mmol/MYejhah77.0-32.0The [facility] Comment on above:Performed By: #### LACT #### [facility] [address] [address] [address] Sung MooreCreatinine [Mass/Vol]0.78 mg/dLNormal0.55-1.02The [facility] HospitalComment on above:Performed By: #### LACT #### [facility] [address] [address] [address] Almaraz ChangEGFR-AF ROMANIAN>60Normal>=60The [facility] HospitalComment on above:Performed By: #### LACT #### [facility] [address] [place] [address] Dr. Sung HuttonGFR-NON AF ROMANIAN>60Normal>=60The [facility] HospitalComment on above:Performed By: #### LACT #### [facility] [address] [place] [address] Dr. Sung MooreGlucose [Mass/Vol]154 mg/dLCritically sbbj76-760Mzj [facility] HospitalComment on above:Performed By: #### LACT #### [facility] [address] [place] [address] Dr. Sung MoorePotassium [Moles/Vol]4.0 mmol/LNormal3.5-5.1The [facility] Comment on above:Performed By: #### LACT #### [facility] [address] [address] [address] Sung MooreSodium [Moles/Vol]126 mmol/LCritically nts031-420Ebs [facility] HospitalComment on above:Performed By: #### LACT #### [facility] [address] [place] [address] Dr. Sung MooreUrea nitrogen [Mass/Vol]15.0 mg/dLNormal7.0-18.0The [facility] HospitalComment on above:Performed By: #### LACT #### [facility] [address] [place] [address] Dr. Sung Hayes nitrogen/Creatinine [Mass ratio]19.2 mg/mgNoCleveland Clinic South Pointe HospitalComaspirus ironwood hospital on above:Performed By: #### LACT #### [facility] [address] [place] [address] Dr. Sung Mcguire MICROSCOPIC ONLYon [id number]I SEEN [facility] on above:Performed By: #### CMP, BNP #### [facility] [address] [place] [address] Dr. Sung Tsang identified Cx Nom (U)INDICATEDNoCleveland Clinic South Pointe HospitalComaspirus ironwood hospital on above:Performed By: #### CMP, BNP #### [facility] [address] [place] [address] Dr. Sung Garcia SEENNormalNONE SEENSouthwest General Health Center on above:Performed By: #### CMP, BNP #### [facility] [address] [place] [address] Dr. Sung Starkystals LM Nom (Urine sed)NONE SEENNormalNONE SEENMetrohealth Parma Medical CenterComaspirus ironwood hospital on above:Performed By: #### CMP, BNP #### [facility] [address] [place] [address] Dr. Almaraz ChangEpithelial cells LM Ql (Urine sed)FEWAbnormalNONE SEEN /RAREThe [facility] HospitalComaspirus ironwood hospital on above:Performed By: #### CMP, BNP #### [facility] [address] [place] [address] Dr. Sung De La CruzUSTRACEAbnormalNONE SEENSouthwest General Health Center on above:Performed By: #### CMP, BNP #### [facility] [address] [place] [address] Dr. Sung MooreNkoycLGE3-79Qfkstime0-8Rmr [facility] on above:Performed By: #### CMP, BNP #### [facility] [address] [place] [address] Dr. Sung MooreWBC (U) [#/Vol]/uLAbnormalNONE SEENMetrohealth Parma Medical CenterComment on above:Performed By: #### CMP, BNP #### [facility] [address] [address] [address] Sung MooreXR CHEST 1 Von [id number] CHEST 1 VEXAM: XR CHEST 1 V HISTORY: Dizziness COMPARISON: [...] Electronically authenticated by: SAUNDRA LAGUERRE Date: 2022-03-19 23:56[facility] CenterBASI METABOLIC PANELon [id number] [Mass/Vol]8.8 mg/dL Normal8.6-10.3The [facility] PrebleComment on above:Order Comment: No: Do not add to previous drawPerformed By: #### 00159, 58271, 49325 #### [facility] [address] [place] [address], USAChloride [Moles/Vol]101 mmol/ZLbwuwy73-507Wiz [facility] PrebleComment on above:Order Comment: No: Do not add to previous drawPerformed By: #### 35602, 92550, 93442 #### [facility] [address] [place] [address], USACO2 [Moles/Vol]29 mmol/UVlgdcg29-42Doi [facility] PrebleComment on above:Order Comment: No: Do not add to previous draw Performed By: #### 92606, 87739, 62376 #### [facility] [address] [place] [address], USACreatinine [Mass/Vol]0.54 mg/dLLow0.60-1.20The [facility] PrebleComment on above:Order Comment: No: Do not add to previous drawPerformed By: #### 75151, 57563, 05896 #### [facility] [address] [place] [address], USAGFR/1.73 sq M.predicted among blacks MDRD (S/P/Bld) [Vol rate/Area]mL/min/{1.73_m2}Normal>60The [facility] Comment on above:Order Comment: No: Do not add to previous drawResult Comment: Calculation may not be valid for patients over 70 yearsPerformed By: #### 72027, 39985, 26789 #### [facility] [address] [place] [address], USAGFR/1.73 sq M.predicted among non-blacks MDRD (S/P/Bld) [Vol rate/Area]mL/min/{1.73_m2}Normal>60The [facility] Comment on above:Order Comment: No: Do not add to previous drawResult Comment: Calculation may not be valid for patients over 70 yearsPerformed By: #### 46937, 46694, 98253 #### [facility] [address] [place] [address], USAGlucose [Mass/Vol]85 mg/lBFouykm58-035Wjy [facility] PrebleComment on above:Order Comment: No: Do not add to previous drawPerformed By: #### 29069, 28347, 02272 #### [facility] [address] [place] [address], USAPotassium [Moles/Vol]4.3 mmol/LNormal3.5-5.1The [facility] PrebleComment on above:Order Comment: No: Do not add to previous drawPerformed By: #### 08872, 45308, 81109 #### [facility] [address] [place] [address], USASodium [Moles/Vol]135 mmol/NErn116-874Obw [facility] PrebleComment on above:Order Comment: No: Do not add to previous drawPerformed By: #### 41582, 57268, 10976 #### [facility] [address] [place] [address], USAUrea nitrogen [Mass/Vol]8 mg/dLNormal7-25The [facility] PrebleComment on above:Order Comment: No: Do not add to previous drawPerformed By: #### 75638, 65019, 71950 #### [facility] [address] [place] [address], USACBC COMPLETE BLOOD COUNTon [id number] distribution width (RBC) [Ratio]16.9 %High11.5-15.0The [facility] PrebleComment on above:Order Comment: No: Do not add to previous draw Performed By: #### 94271, 10404, 61480 #### [facility] [address] [place] [address], USAHematocrit (Bld) [Volume fraction]32.5 %Low36.0-45.0The [facility] PrebleComment on above:Order Comment: No: Do not add to previous drawPerformed By: #### 19194, 36419, 98998 #### [facility] [address] [place] [address], USAHemoglobin (Bld) [Mass/Vol]10.3 g/dLLow12.0-15.0The [facility] PrebleComment on above:Order Comment: No: Do not add to previous drawPerformed By: #### 42308, 13465, 79685 #### [facility] [address] [place] [address], USAMCH (RBC) [Entitic mass]27.4 ynQthord22.0-33.0The [facility] PrebleComment on above:Order Comment: No: Do not add to previous drawPerformed By: #### 66977, 39685, 76875 #### [facility] [address] [place] [id number], [facility] EDMONDHC (RBC) [Mass/Vol]31.7 g/dLLow32.0-35.0The [facility] PrebleComment on above:Order Comment: No: Do not add to previous drawPerformed By: #### 11549, 22669, 32211 #### [facility] [address] [place] [id number], [facility] SOUTHER[facility] NEW MEXICOMCV (RBC) [Entitic vol]86.4 eUBkinok94.0-98.0The [facility] PrebleComment on above:Order Comment: No: Do not add to previous drawPerformed By: #### 74958, 25596, 93613 #### [facility] [address] [place] [address], USANucleated RBC/100 WBC (Bld) [Ratio]0 %Normal0-0The [facility] PrebleComment on above:Order Comment: No: Do not add to previous drawPerformed By: #### 94215, 94309, 32245 #### [facility] [address] [place] [address], [facility] SOUTHER[facility] NEW MEXICOPLAT SUI432 10*3/oKTxmyla720-677Odc [facility] PrebleComment on above:Order Comment: No: Do not add to previous draw Performed By: #### 29839, 24869, 97431 #### [facility] [address] [place] [id number], [facility] OF SOUTHERN NEW MEXICORBC (Bld) [#/Vol]3.76 10*6/uLLow3.80-5.00The [facility] PrebleComment on above:Order Comment: No: Do not add to previous drawPerformed By: #### 18203, 41781, 12261 #### [facility] [address] [place] [address], USAWBC (Bld) [#/Vol]6.86 10*3/uLNormal4.00-10.60The [facility] PrebleComment on above:Order Comment: No: Do not add to previous drawPerformed By: #### 73113, 46042, 94066 #### [facility] [address] [place] [address], USAMAGNESIUM BLOODon 87-25-1997Akfdkliov [Mass/Vol]2.3 mg/dL Normal1.9-2.7The [facility] PrebleComment on above:Order Comment: No: Do not add to previous drawPerformed By: #### 35248, 63147, 28237 #### [facility] [address] [place] [address], USAPHOSPHORUS BLOODon [id number] [Mass/Vol]4.1 mg/dL Normal2.5-5.0The [facility] PrebleComment on above:Order Comment: No: Do not add to previous drawPerformed By: #### 80746, 18864, 24068 #### [facility] [address] [place] [address], USAPORTABLE ABDOMENon [id number] ABDOMENUnParkview Health Department of Radiology [address] [place] [id number] Patient Name: SABI SANTAMARIA : 1945 Sex: F Age: Race: Other Pt. Location: [id number] Patient Status: I Ordered Date: 12/29/2021 6:00:00 AM Completed Date: 12/29/2021 06:45 AM Requesting Provider: ENRRIQUE GAUTHIER Attending Provider: MINESH DALY Report Copy To: Signs & Symptoms: Constipation/Impaction History: Comments: evaluate for Ileus Exam: PORTABLE ABDOMEN PORTABLE ABDOMEN 12/29/2021 6:45 AM CLINICAL INDICATIONS: Constipation/Impaction TECHNOLOGIST COMMENTS:Constipation/Impaction QUESTION FOR THE RADIOLOGIST: evaluate for Ileus [...] secondary to ileus remains. Electronically signed: Saundra Magaña. Transcribed by: [email or web address], User Resident: Electronically Signed by: SAUNDRA MAGAÑA @ 12/29/2021 07:07 AMNormalThe [facility] PrebleComment on above:Order Comment: No: Do not add to previous drawBASIC METABOLIC PANELon [id number] [Mass/Vol]8.6 mg/dLNormal8.6-10.3The [facility] PrebleComment on above:Order Comment: No: Do not add to previous drawPerformed By: #### 27228, 35222, 17420 #### [facility] [address] [place] [address], USAChloride [Moles/Vol]104 mmol/ZTniizf03-723Clq [facility] PrebleComment on above:Order Comment: No: Do not add to previous drawPerformed By: #### 10327, 72922, 86769 #### [facility] [address] [place] [address], USACO2 [Moles/Vol]27 mmol/CTfqnjk78-29Tch [facility] PrebleComment on above:Order Comment: No: Do not add to previous draw Performed By: #### 99345, 33372, 76116 #### [facility] [address] [place] [address], USACreatinine [Mass/Vol]0.57 mg/dLLow0.60-1.20The [facility] PrebleComment on above:Order Comment: No: Do not add to previous drawPerformed By: #### 91076, 68967, 74035 #### [facility] [address] [place] [address], USAGFR/1.73 sq M.predicted among blacks MDRD (S/P/Bld) [Vol rate/Area]mL/min/{1.73_m2}Normal>60The [facility] Comment on above:Order Comment: No: Do not add to previous drawResult Comment: Calculation may not be valid for patients over 70 yearsPerformed By: #### 82083, 74401, 24984 #### [facility] [address] [place] [address], USAGFR/1.73 sq M.predicted among non-blacks MDRD (S/P/Bld) [Vol rate/Area]mL/min/{1.73_m2}Normal>60The [facility] Comment on above:Order Comment: No: Do not add to previous drawResult Comment: Calculation may not be valid for patients over 70 yearsPerformed By: #### 87905, 96586, 94908 #### [facility] [address] [place] [address], USAGlucose [Mass/Vol]117 mg/cZDiup05-256Pai [facility] PrebleComment on above:Order Comment: No: Do not add to previous drawPerformed By: #### 09969, 11296, 99371 #### [facility] [address] [place] [address], USAPotassium [Moles/Vol]4.4 mmol/LNormal3.5-5.1The [facility] PrebleComment on above:Order Comment: No: Do not add to previous drawPerformed By: #### 98595, 90469, 62139 #### [facility] [address] [place] [address], USASodium [Moles/Vol]137 mmol/XKanipi351-837Sen [facility] PrebleComment on above:Order Comment: No: Do not add to previous drawPerformed By: #### 87500, 82676, 60893 #### [facility] [address] [place] [address], USAUrea nitrogen [Mass/Vol]4 mg/dLLow7-25The [facility] PrebleComment on above:Order Comment: No: Do not add to previous drawPerformed By: #### 29221, 81064, 02651 #### [facility] [address] [place] [address], USACBC COMPLETE BLOOD COUNTon 35-36-9964Btzmhahtqsf distribution width (RBC) [Ratio]17.0 %High11.5-15.0The [facility] PrebleComment on above:Order Comment: No: Do not add to previous draw Performed By: #### 94738 #### [facility] [address] [place] [address], USAHematocrit (Bld) [Volume fraction]32.5 %Low36.0-45.0The [facility] PrebleComment on above:Order Comment: No: Do not add to previous drawPerformed By: #### 93319 #### [facility] [address] [place] [address], USAHemoglobin (Bld) [Mass/Vol]10.4 g/dLLow12.0-15.0The [facility] PrebleComment on above:Order Comment: No: Do not add to previous drawPerformed By: #### 26804 #### [facility] [address] [place] [address], USAMCH (RBC) [Entitic mass]27.7 zsHbnszd07.0-33.0The [facility] PrebleComment on above:Order Comment: No: Do not add to previous drawPerformed By: #### 92150 #### [facility] [address] [place] [address], [facility] MEXICOMCHC (RBC) [Mass/Vol]32.0 g/wODkrqld49.0-35.0The [facility] PrebleComment on above:Order Comment: No: Do not add to previous drawPerformed By: #### 93848 #### [facility] [address] [place] [address], [facility] SOU[facility] NEW MEXICOMCV (RBC) [Entitic vol]86.4 bZQaelac84.0-98.0The [facility] PrebleComment on above:Order Comment: No: Do not add to previous drawPerformed By: #### 39824 #### [facility] [address] [place] [address], USANucleated RBC/100 WBC (Bld) [Ratio]0 %Normal0-0The [facility] PrebleComment on above:Order Comment: No: Do not add to previous drawPerformed By: #### 09038 #### [facility] [address] [place] [address], USAPLAT OPY320 10*3/pRLgiwmp844-258Cou [facility] PrebleComment on above:Order Comment: No: Do not add to previous draw Performed By: #### 27411 #### [facility] [address] [place] [address], [facility] MEXICORBC (Bld) [#/Vol]3.76 10*6/uLLow3.80-5.00The [facility] PrebleComment on above:Order Comment: No: Do not add to previous drawPerformed By: #### 15780 #### [facility] [address] [place] [address], USAWBC (Bld) [#/Vol]6.18 10*3/uLNormal4.00-10.60The [facility] PrebleComment on above:Order Comment: No: Do not add to previous drawPerformed By: #### 67884 #### [facility] [address] [place] [address], USAMAGNESIUM BLOODon 22-53-8460Vdelvsavd [Mass/Vol]2.1 mg/dL Normal1.9-2.7The [facility] PrebleComment on above:Order Comment: No: Do not add to previous drawPerformed By: #### 10529, 91315, 03604 #### [facility] [address] [place] [address], USAPHOSPHORUS BLOODon 34-79-9575Eqcfqbqmt [Mass/Vol]3.5 mg/dL Normal2.5-5.0The [facility] PrebleComment on above:Order Comment: No: Do not add to previous drawPerformed By: #### 44572, 54712, 60970 #### [facility] [address] [place] [address], USAPOC GLUCOSE LABon 46-33-2738Ooourin [Mass/Vol]124 mg/dLHigh 70-100The [facility] PrebleComment on above:Performed By: #### 77786 #### [facility] [address] [place] [address], USAGlucose [Mass/Vol]111 mg/kGXupa37-526Ydr [facility] PrebleComment on above:Performed By: #### 38130 #### [facility] [address] [place] [address], USABASIC METABOLIC PANELon 90-50-0736Tlldfja [Mass/Vol]8.4 mg/dLLow8.6-10.3The [facility] PrebleComment on above:Order Comment: No: Do not add to previous drawPerformed By: #### 19010, 02519, 60774 #### [facility] [address] [place] [address], USAChloride [Moles/Vol]106 mmol/LWnfcqc34-915Idr [facility] PrebleComment on above:Order Comment: No: Do not add to previous drawPerformed By: #### 81431, 72967, 35852 #### [facility] [address] [place] [address], USACO2 [Moles/Vol]23 mmol/IZqqztd92-61Ioi [facility] PrebleComment on above:Order Comment: No: Do not add to previous draw Performed By: #### 13126, 52607, 91573 #### [facility] [address] [place] [address], USACreatinine [Mass/Vol]0.52 mg/dLLow0.60-1.20The [facility] PrebleComment on above:Order Comment: No: Do not add to previous drawPerformed By: #### 05654, 20178, 55810 #### [facility] [address] [place] [address], USAGFR/1.73 sq M.predicted among blacks MDRD (S/P/Bld) [Vol rate/Area]mL/min/{1.73_m2}Normal>60The [facility] Comment on above:Order Comment: No: Do not add to previous drawResult Comment: Calculation may not be valid for patients over 70 yearsPerformed By: #### 54198, 46082, 29577 #### [facility] [address] [place] [address], USAGFR/1.73 sq M.predicted among non-blacks MDRD (S/P/Bld) [Vol rate/Area]mL/min/{1.73_m2}Normal>60The [facility] Comment on above:Order Comment: No: Do not add to previous drawResult Comment: Calculation may not be valid for patients over 70 yearsPerformed By: #### 04975, 59485, 28651 #### [facility] [address] [place] [address], USAGlucose [Mass/Vol]119 mg/jQMysb64-249Cfu [facility] PrebleComment on above:Order Comment: No: Do not add to previous drawPerformed By: #### 86891, 63954, 88418 #### [facility] [address] [place] [address], USAPotassium [Moles/Vol]3.7 mmol/LNormal3.5-5.1The [facility] PrebleComment on above:Order Comment: No: Do not add to previous drawPerformed By: #### 10695, 27071, 92790 #### [facility] [address] [place] [address], USASodium [Moles/Vol]137 mmol/ZUlroyv114-713Ozw [facility] PrebleComment on above:Order Comment: No: Do not add to previous drawPerformed By: #### 23309, 02079, 52656 #### [facility] [address] [place] [address], USAUrea nitrogen [Mass/Vol]3 mg/dLLow7-25The [facility] PrebleComment on above:Order Comment: No: Do not add to previous drawPerformed By: #### 34527, 93468, 62754 #### [facility] [address] [place] [address], USACBC COMPLETE BLOOD COUNTon 59-96-2013Kyvmfqkopae distribution width (RBC) [Ratio]16.5 %High11.5-15.0The [facility] PrebleComment on above:Order Comment: No: Do not add to previous draw Performed By: #### 35233, 56569, 47969 #### [facility] [address] [place] [address], USAHematocrit (Bld) [Volume fraction]31.4 %Low36.0-45.0The [facility] PrebleComment on above:Order Comment: No: Do not add to previous drawPerformed By: #### 62123, 60094, 76746 #### [facility] [address] [place] [address], [facility] MEXICOHemoglobin (Bld) [Mass/Vol]10.2 g/dLLow12.0-15.0The [facility] PrebleComment on above:Order Comment: No: Do not add to previous drawPerformed By: #### 40468, , 15368 #### [facility] [address] [place] [address], [facility]DH (RBC) [Entitic mass]28.1 tpLynbts36.0-33.0The [facility] PrebleComment on above:Order Comment: No: Do not add to previous drawPerformed By: #### 60234, , 48635 #### [facility] [address] [place] [address], [facility] EDMONDHC (RBC) [Mass/Vol]32.5 g/hTAqydrb95.0-35.0The [facility] PrebleComment on above:Order Comment: No: Do not add to previous drawPerformed By: #### 58179, , 66342 #### [facility] [address] [place] [address], [facility] EDMONDV (RBC) [Entitic vol]86.5 cYOgcwfy54.0-98.0The [facility] PrebleComment on above:Order Comment: No: Do not add to previous drawPerformed By: #### 85218, 83794, 45059 #### [facility] [address] [place] [address], USANucleated RBC/100 WBC (Bld) [Ratio]0 %Normal0-0The [facility] PrebleComment on above:Order Comment: No: Do not add to previous drawPerformed By: #### 90669, 44961, 01835 #### [facility] [address] [place] [address], USAPLAT NXY712 10*3/jGPyeeml137-270Hjz [facility] PrebleComment on above:Order Comment: No: Do not add to previous draw Performed By: #### 67440, 35034, 52224 #### [facility] [address] [place] [address], USARBC (Bld) [#/Vol]3.63 10*6/uLLow3.80-5.00The [facility] PrebleComment on above:Order Comment: No: Do not add to previous drawPerformed By: #### 24533, 25381, 99350 #### [facility] [address] [place] [address], USAWBC (Bld) [#/Vol]6.60 10*3/uLNormal4.00-10.60The [facility] PrebleComment on above:Order Comment: No: Do not add to previous drawPerformed By: #### 20525, 92937, 66893 #### [facility] [address] [place] [address], USAMAGNESIUM BLOODon 08-62-0349Ejzkykahb [Mass/Vol]1.6 mg/dL Low1.9-2.7The [facility] PrebleComment on above:Order Comment: No: Do not add to previous drawPerformed By: #### 64539, 55068, 25991 #### [facility] [address] [place] [address], USAPHOSPHORUS BLOODon 77-21-7459Hizanseye [Mass/Vol]3.2 mg/dL Normal2.5-5.0The [facility] PrebleComment on above:Order Comment: No: Do not add to previous drawPerformed By: #### 06219, 42820, 40679 #### [facility] [address] [place] [address], USAPOC GLUCOSE LABon 57-14-7779Endbsst [Mass/Vol]124 mg/dLHigh 70-100The [facility] PrebleComment on above:Performed By: #### 74430, 97752, 80762 #### [facility] [address] [place] [address], USAGlucose [Mass/Vol]127 mg/zJGeyl94-227Aii [facility] PrebleComment on above:Performed By: #### 05697 #### [facility] [address] [place] [address], USAGlucose [Mass/Vol]127 mg/qUTrfa28-344Ati [facility] PrebleComment on above:Performed By: #### 77988, 95349, 18784 #### [facility] [address] [place] [address], USAGlucose [Mass/Vol]124 mg/gWXzqa26-713Jnk [facility] PrebleComment on above:Performed By: #### 16802, 11361, 18823 #### [facility] [address] [place] [address], USABASIC METABOLIC PANELon 71-43-2058Fqucdhw [Mass/Vol]8.4 mg/dLLow8.6-10.3The [facility] PrebleComment on above:Order Comment: No: Do not add to previous drawPerformed By: #### 68233 #### [facility] [address] [place] [address], USAChloride [Moles/Vol]105 mmol/WPzdsvh18-842Qpd [facility] PrebleComment on above:Order Comment: No: Do not add to previous drawPerformed By: #### 48021 #### [facility] [address] [place] [address], USACO2 [Moles/Vol]27 mmol/TNovrgr93-24Mbw [facility] PrebleComment on above:Order Comment: No: Do not add to previous draw Performed By: #### 04063 #### [facility] [address] [place] [address], USACreatinine [Mass/Vol]0.52 mg/dLLow0.60-1.20The [facility] PrebleComment on above:Order Comment: No: Do not add to previous drawPerformed By: #### 92601 #### [facility] [address] [place] [address], USAGFR/1.73 sq M.predicted among blacks MDRD (S/P/Bld) [Vol rate/Area]mL/min/{1.73_m2}Normal>60The [facility] Comment on above:Order Comment: No: Do not add to previous drawResult Comment: Calculation may not be valid for patients over 70 yearsPerformed By: #### 78360 #### [facility] [address] [place] [address], USAGFR/1.73 sq M.predicted among non-blacks MDRD (S/P/Bld) [Vol rate/Area]mL/min/{1.73_m2}Normal>60The [facility] Comment on above:Order Comment: No: Do not add to previous drawResult Comment: Calculation may not be valid for patients over 70 yearsPerformed By: #### 55015 #### [facility] [address] [place] [address], USAGlucose [Mass/Vol]114 mg/xMSlsk06-995Sfv [facility] PrebleComment on above:Order Comment: No: Do not add to previous drawPerformed By: #### 14577 #### [facility] [address] [place] [address], USAPotassium [Moles/Vol]3.5 mmol/LNormal3.5-5.1The [facility] PrebleComment on above:Order Comment: No: Do not add to previous drawPerformed By: #### 76951 #### [facility] [address] [place] [address], USASodium [Moles/Vol]137 mmol/NSnbvjb116-454Jpv [facility] PrebleComment on above:Order Comment: No: Do not add to previous drawPerformed By: #### 85435 #### [facility] [address] [place] [address], USAUrea nitrogen [Mass/Vol]3 mg/dLLow7-25The [facility] PrebleComment on above:Order Comment: No: Do not add to previous drawPerformed By: #### 65199 #### [facility] [address] [place] [address], USACBC COMPLETE BLOOD COUNTon 79-30-8782Xeplredvyuw distribution width (RBC) [Ratio]16.6 %High11.5-15.0The [facility] PrebleComment on above:Order Comment: No: Do not add to previous draw Performed By: #### 03283, 33757, 35533 #### [facility] [address] [place] [address], USAHematocrit (Bld) [Volume fraction]30.5 %Low36.0-45.0The [facility] PrebleComment on above:Order Comment: No: Do not add to previous drawPerformed By: #### 74525, 04527, 63621 #### [facility] [address] [place] [address], USAHemoglobin (Bld) [Mass/Vol]10.0 g/dLLow12.0-15.0The [facility] PrebleComment on above:Order Comment: No: Do not add to previous drawPerformed By: #### 47650, 07134, 82996 #### [facility] [address] [place] [address], USAMCH (RBC) [Entitic mass]27.8 reUdofby42.0-33.0The [facility] PrebleComment on above:Order Comment: No: Do not add to previous drawPerformed By: #### 50132, 65861, 22217 #### [facility] [address] [place] [address], [facility] MEXICOMCHC (RBC) [Mass/Vol]32.8 g/zBSkfiss27.0-35.0The [facility] PrebleComment on above:Order Comment: No: Do not add to previous drawPerformed By: #### 71848, 35003, 97050 #### [facility] [address] [place] [address], [facility] S[facility] MEXICOMCV (RBC) [Entitic vol]84.7 qBCemekg46.0-98.0The [facility] PrebleComment on above:Order Comment: No: Do not add to previous drawPerformed By: #### 36674, 03490, 04283 #### [facility] [address] [place] [address], USANucleated RBC/100 WBC (Bld) [Ratio]0 %Normal0-0The [facility] PrebleComment on above:Order Comment: No: Do not add to previous drawPerformed By: #### 12673, 03559, 02846 #### [facility] [address] [place] [address], USAPLAT SZA739 10*3/jWBpmjwk001-927Wqq [facility] PrebleComment on above:Order Comment: No: Do not add to previous draw Performed By: #### 46191, 18035, 16794 #### [facility] [address] [place] [address], USARBC (Bld) [#/Vol]3.60 10*6/uLLow3.80-5.00The [facility] PrebleComment on above:Order Comment: No: Do not add to previous drawPerformed By: #### 89241, 59903, 93612 #### [facility] [address] [place] [address], USAWBC (Bld) [#/Vol]6.18 10*3/uLNormal4.00-10.60The [facility] Medical CenterComment on above:Order Comment: No: Do not add to previous drawPerformed By: #### 99085, 16978, 39498 #### [facility] [address] [place] [address], USAPOC GLUCOSE LABon 73-45-4360Ochbfmy [Mass/Vol]125 mg/dLHigh 70-100The [facility] PrebleComment on above:Performed By: #### 76993 #### [facility] [address] [place] [address], USAGlucose [Mass/Vol]196 mg/uOTnrr66-566Slh [facility] PrebleComment on above:Performed By: #### 85121, 26808, 43229 #### [facility] [address] [place] [address], USAGlucose [Mass/Vol]110 mg/yADano25-119Lhx [facility] PrebleComment on above:Performed By: #### 39609, 38237, 77608 #### [facility] [address] [place] [address], USAGlucose [Mass/Vol]114 mg/sIEgsl14-308Uce [facility] PrebleComment on above:Performed By: #### 18707 #### [facility] [address] [place] [address], USABASIC METABOLIC PANELon 89-14-7313Bnjvawn [Mass/Vol]8.4 mg/dLLow8.6-10.3The [facility] PrebleComment on above:Order Comment: No: Do not add to previous drawPerformed By: #### 99104, 36264, 58070 #### [facility] [address] [place] [address], USAChloride [Moles/Vol]101 mmol/VUldips94-431Kge [facility] PrebleComment on above:Order Comment: No: Do not add to previous drawPerformed By: #### 65818, 15049, 68981 #### [facility] [address] [place] [address], USACO2 [Moles/Vol]27 mmol/SNnrhtf93-64Leg [facility] PrebleComment on above:Order Comment: No: Do not add to previous draw Performed By: #### 36055, 31257, 24908 #### [facility] [address] [place] [address], USACreatinine [Mass/Vol]0.54 mg/dLLow0.60-1.20The [facility] PrebleComment on above:Order Comment: No: Do not add to previous drawPerformed By: #### 89202, 88918, 36742 #### [facility] [address] [place] [address], USAGFR/1.73 sq M.predicted among blacks MDRD (S/P/Bld) [Vol rate/Area]mL/min/{1.73_m2}Normal>60The [facility] Comment on above:Order Comment: No: Do not add to previous drawResult Comment: Calculation may not be valid for patients over 70 yearsPerformed By: #### 40010, 76176, 99923 #### [facility] [address] [place] [address], USAGFR/1.73 sq M.predicted among non-blacks MDRD (S/P/Bld) [Vol rate/Area]mL/min/{1.73_m2}Normal>60The [facility] Comment on above:Order Comment: No: Do not add to previous drawResult Comment: Calculation may not be valid for patients over 70 yearsPerformed By: #### 07849, 95687, 07599 #### [facility] [address] [place] [address], USAGlucose [Mass/Vol]109 mg/sVElwn79-496Yzz [facility] PrebleComment on above:Order Comment: No: Do not add to previous drawPerformed By: #### 58310, 96360, 38599 #### [facility] [address] [place] [address], USAPotassium [Moles/Vol]3.4 mmol/LLow3.5-5.1The [facility] PrebleComment on above:Order Comment: No: Do not add to previous drawPerformed By: #### 63811, 23050, 14979 #### [facility] [address] [place] [address], USASodium [Moles/Vol]135 mmol/KGxb667-902Bsr [facility] PrebleComment on above:Order Comment: No: Do not add to previous drawPerformed By: #### [id number], [id number], [id number] #### [facility] [address] [place] [address], USAUrea nitrogen [Mass/Vol]5 mg/dLLow7-25The [facility] PrebleComment on above:Order Comment: No: Do not add to previous drawPerformed By: #### [id number], [id number], [id number] #### [facility] [address] [place] [address], USACBC COMPLETE BLOOD COUNTon [id number] distribution width (RBC) [Ratio]16.5 %High11.5-15.0The [facility] PrebleComment on above:Order Comment: No: Do not add to previous draw Performed By: #### [id number], [id number], [id number] #### [facility] [address] [place] [address], USAHematocrit (Bld) [Volume fraction]30.6 %Low36.0-45.0The [facility] PrebleComment on above:Order Comment: No: Do not add to previous drawPerformed By: #### 92506, 86653, [id number] #### [facility] [address] [place] [address], USAHemoglobin (Bld) [Mass/Vol]9.9 g/dLLow12.0-15.0The [facility] PrebleComment on above:Order Comment: No: Do not add to previous drawPerformed By: #### 21494, 47591, 74974 #### [facility] [address] [place] [address], [facility] (RBC) [Entitic mass]28.0 wqQclcci82.0-33.0The [facility] PrebleComment on above:Order Comment: No: Do not add to previous drawPerformed By: #### 60086, 62195, 94158 #### [facility] [address] [place] [address], [facility] (RBC) [Mass/Vol]32.4 g/kXWzwlwm18.0-35.0The [facility] PrebleComment on above:Order Comment: No: Do not add to previous drawPerformed By: #### 24466, 47051, 30347 #### [facility] [address] [place] [address], [facility] (RBC) [Entitic vol]86.4 kYNwmxhm81.0-98.0The [facility] PrebleComment on above:Order Comment: No: Do not add to previous drawPerformed By: #### 25253, 50142, 01605 #### [facility] [address] [place] [address], USANucleated RBC/100 WBC (Bld) [Ratio]0 %Normal0-0The [facility] PrebleComment on above:Order Comment: No: Do not add to previous drawPerformed By: #### 33128, 72208, 40564 #### [facility] [address] [place] [address], USAPLAT JPS077 10*3/vDNzelbq509-713Kkk [facility] PrebleComment on above:Order Comment: No: Do not add to previous draw Performed By: #### 23517, 29381, 88777 #### [facility] [address] [place] [address], USARBC (Bld) [#/Vol]3.54 10*6/uLLow3.80-5.00The [facility] PrebleComment on above:Order Comment: No: Do not add to previous drawPerformed By: #### 34085, 63530, 56399 #### [facility] [address] [place] [address], USAWBC (Bld) [#/Vol]6.35 10*3/uLNormal4.00-10.60The [facility] PrebleComment on above:Order Comment: No: Do not add to previous drawPerformed By: #### 34135, 37819, 50683 #### [facility] [address] [place] [address], USAPOC GLUCOSE LABon 98-31-5122Ayraxao [Mass/Vol]163 mg/dLHigh 70-100The [facility] PrebleComment on above:Performed By: #### 76513 #### [facility] [address] [place] [address], USAGlucose [Mass/Vol]138 mg/eHHgwi00-750Owo [facility] PrebleComment on above:Performed By: #### 15964, 26928, 76182 #### [facility] [address] [address], USAGlucose [Mass/Vol]114 mg/tNGobt48-283Wml [facility] PrebleComment on above:Performed By: #### 15239 #### [facility] [address] [place] [address], USAGlucose [Mass/Vol]112 mg/lNZesb49-145Cqx [facility] PrebleComment on above:Performed By: #### 96448 #### [facility] [address] [place] [address], USAABDOMEN 1 VWon 39-47-5187TTZZOQL 1 [facility] Department of Radiology [address] [place] [address] Patient Name: SABI SANTAMARIA : 1945 Sex: F Age: Race: Other Pt. Location: [id number] Patient Status: I Ordered Date: 12/24/2021 5:00:00 [...] obstruction. Electronically signed: Shad Mortensen. Transcribed by: [email or web address], User Resident: Electronically Signed by: SHAD MORTENSEN @ 12/24/2021 10:23 [facility] HospitalComment on above:Order Comment: Stricture BASIC METABOLIC PANELon 53-44-5381Avlbemk [Mass/Vol]8.2 mg/dLLow8.6-10.3The [facility] PrebleComment on above:Order Comment: No: Do not add to previous drawPerformed By: #### 69021, 69177, 46228, 03312 #### [facility] [address] [place] [address], USAChloride [Moles/Vol]100 mmol/UCnitak07-840Dts [facility] PrebleComment on above:Order Comment: No: Do not add to previous drawPerformed By: #### 73215, 44783, 80028, 22744 #### [facility] [address] [place] [address], USACO2 [Moles/Vol]22 mmol/GGasakc86-77Mps [facility] PrebleComment on above:Order Comment: No: Do not add to previous draw Performed By: #### 53339, 97511, 56136, 06013 #### [facility] [address] [place] [address], USACreatinine [Mass/Vol]0.52 mg/dLLow0.60-1.20The [facility] PrebleComment on above:Order Comment: No: Do not add to previous drawPerformed By: #### 75605, 53671, 23846, 01913 #### [facility] [address] [place] [address], USAGFR/1.73 sq M.predicted among blacks MDRD (S/P/Bld) [Vol rate/Area]mL/min/{1.73_m2}Normal>60The [facility] Comment on above:Order Comment: No: Do not add to previous drawResult Comment: Calculation may not be valid for patients over 70 yearsPerformed By: #### 92948, 18371, 47620, 51661 #### [facility] [address] [place] [address], USAGFR/1.73 sq M.predicted among non-blacks MDRD (S/P/Bld) [Vol rate/Area]mL/min/{1.73_m2}Normal>60The [facility] Comment on above:Order Comment: No: Do not add to previous drawResult Comment: Calculation may not be valid for patients over 70 yearsPerformed By: #### 27822, 79542, 62989, 48037 #### [facility] [address] [place] [address], USAGlucose [Mass/Vol]43 mg/dLCritically atd62-822Vdk [facility] PrebleComment on above:Order Comment: No: Do not add to previous drawResult Comment: M-CRITICAL RESULT(S) REVIEWED, CALLED TO AND READ BACK BY RAJAT DEVRIES RN @0635 12/24/21Performed By: #### 64408, 26772, 52410, 78256 #### [facility] [address] [place] [address], USAPotassium [Moles/Vol]3.9 mmol/LNormal3.5-5.1The [facility] PrebleComment on above:Order Comment: No: Do not add to previous drawPerformed By: #### 65158, 33429, 72527, 85391 #### [facility] [address] [place] [address], USASodium [Moles/Vol]135 mmol/JBpx407-579Jmc [facility] PrebleComment on above:Order Comment: No: Do not add to previous drawPerformed By: #### 34116, 54662, 71660, 95527 #### [facility] [address] [place] [address], USAUrea nitrogen [Mass/Vol]10 mg/dLNormal7-25The [facility] PrebleComment on above:Order Comment: No: Do not add to previous drawPerformed By: #### 14323, 11949, 91625, 94968 #### [facility] [address] [place] [address], USACBC COMPLETE BLOOD COUNTon 90-59-9157Fxaflwiamoe distribution width (RBC) [Ratio]16.7 %High11.5-15.0The [facility] PrebleComment on above:Order Comment: No: Do not add to previous draw Performed By: #### 65860, 09669, 23904 #### [facility] [address] [place] [address], USAHematocrit (Bld) [Volume fraction]30.8 %Low36.0-45.0The [facility] PrebleComment on above:Order Comment: No: Do not add to previous drawPerformed By: #### 70165, 65694, 38486 #### [facility] [address] [place] [address], USAHemoglobin (Bld) [Mass/Vol]9.7 g/dLLow12.0-15.0The [facility] PrebleComment on above:Order Comment: No: Do not add to previous drawPerformed By: #### 00481, 20505, 38245 #### [facility] [address] [place] [address], [facility] (RBC) [Entitic mass]27.8 nkDcqbty58.0-33.0The [facility] PrebleComment on above:Order Comment: No: Do not add to previous drawPerformed By: #### 17129, 13567, 78673 #### [facility] [address] [place] [address], USAMCHC (RBC) [Mass/Vol]31.5 g/dLLow32.0-35.0The [facility] PrebleComment on above:Order Comment: No: Do not add to previous drawPerformed By: #### 02590, 76448, 88240 #### [facility] [address] [place] [address], USAMCV (RBC) [Entitic vol]88.3 mOMwwosw97.0-98.0The [facility] PrebleComment on above:Order Comment: No: Do not add to previous drawPerformed By: #### 69691, 26846, 97383 #### [facility] [address] [place] [address], USANucleated RBC/100 WBC (Bld) [Ratio]0 %Normal0-0The [facility] PrebleComment on above:Order Comment: No: Do not add to previous drawPerformed By: #### 36813, 71915, 75823 #### [facility] [address] [place] [address], USAPLAT [id number] 10*3/dCSwugwy451-739Naa [facility] PrebleComment on above:Order Comment: No: Do not add to previous draw Performed By: #### 58966, 78285, 41596 #### [facility] [address] [place] [address], USARBC (Bld) [#/Vol]3.49 10*6/uLLow3.80-5.00The [facility] PrebleComment on above:Order Comment: No: Do not add to previous drawPerformed By: #### 73882, 16692, 93686 #### [facility] [address] [place] [address], USAWBC (Bld) [#/Vol]9.13 10*3/uLNormal4.00-10.60The [facility] PrebleComment on above:Order Comment: No: Do not add to previous drawPerformed By: #### 09922, 10139, 48627 #### [facility] [address] [place] [address], USALIVER BATTERYon 90-86-0035Pcrnivc [Mass/Vol]2.9 g/dLLow 3.5-5.7The [facility] PrebleComment on above:Order Comment: No: Do not add to previous drawPerformed By: #### 97345, 61149, 87364, 15969 #### [facility] [address] [place] [address], USAALKALINE MLQSOU02 IU/PEmfips58-553Dvv [facility] PrebleComment on above:Order Comment: No: Do not add to previous draw Performed By: #### 71955, 05914, 65631, 08562 #### [facility] [address] [place] [address], USAALT [Catalytic activity/Vol]8 U/LNormal7-52The [facility] PrebleComment on above:Order Comment: No: Do not add to previous drawPerformed By: #### 97462, 11454, 15363, 93564 #### [facility] [address] [place] [address], USAAST [Catalytic activity/Vol]19 U/WEtwoxa83-85Wnp [facility] PrebleComment on above:Order Comment: No: Do not add to previous drawPerformed By: #### 47675, 14783, 90646, 83912 #### [facility] [address] [place] [address], USABilirubin [Mass/Vol]0.7 mg/dLNormal0.3-1.0The [facility] PrebleComment on above:Order Comment: No: Do not add to previous drawPerformed By: #### 60747, 22660, 72457, 10359 #### [facility] [address] [place] [address], USABilirubin.direct [Mass/Vol]0.2 mg/dLNormal0.0-0.2The [facility] PrebleComment on above:Order Comment: No: Do not add to previous drawPerformed By: #### 98528, 28819, 99155, 79224 #### [facility] [address] [place] [address], USAProtein [Mass/Vol]5.9 g/dLLow6.0-8.3The [facility] PrebleComment on above:Order Comment: No: Do not add to previous drawPerformed By: #### 27261, 26333, 28751, 71992 #### [facility] [address] [place] [address], USAMAGNESIUM BLOODon 12-04-6004Qnejjhncs [Mass/Vol]1.8 mg/dL Low1.9-2.7The [facility] PrebleComment on above:Order Comment: No: Do not add to previous drawPerformed By: #### 86869, 13191, 10630, 96440 #### [facility] [address] [place] [address], USAPHOSPHORUS BLOODon 86-44-0746Fxptuyfjm [Mass/Vol]3.1 mg/dL Normal2.5-5.0The [facility] PrebleComment on above:Order Comment: No: Do not add to previous drawPerformed By: #### 41097, 58772, 01222, 15665 #### [facility] [address] [place] [address], USAPOC GLUCOSE LABon 40-93-4954Ilefgca [Mass/Vol]101 mg/dLHigh 70-100The [facility] PrebleComment on above:Performed By: #### 23596 #### [facility] [address] [place] [address], USAGlucose [Mass/Vol]82 mg/zZEnhofj57-810Yvh [facility] PrebleComment on above:Performed By: #### 70323, 10783, 46326 #### [facility] [address] [address], USAGlucose [Mass/Vol]81 mg/dEYvirtl20-744Jtv [facility] PrebleComment on above:Performed By: #### 44249 #### [facility] [address] [place] [address], USAGlucose [Mass/Vol]59 mg/lANec65-557Mzk [facility] PrebleComment on above:Performed By: #### 60656 #### [facility] [address] [place] [address], USABASIC METABOLIC PANELon 93-24-7787Ozvumgq [Mass/Vol]8.0 mg/dLLow8.6-10.3The [facility] PrebleComment on above:Order Comment: No: Do not add to previous drawPerformed By: #### 50283 #### [facility] [address] [place] [address], USAChloride [Moles/Vol]102 mmol/WYnavdz17-757Ega [facility] PrebleComment on above:Order Comment: No: Do not add to previous drawPerformed By: #### 22579 #### [facility] [address] [place] [address], USACO2 [Moles/Vol]26 mmol/XExrugt76-55Bid [facility] PrebleComment on above:Order Comment: No: Do not add to previous draw Performed By: #### 63458 #### [facility] [address] [place] [address], USACreatinine [Mass/Vol]0.58 mg/dLLow0.60-1.20The [facility] PrebleComment on above:Order Comment: No: Do not add to previous drawPerformed By: #### 45048 #### [facility] [address] [place] [address], USAGFR/1.73 sq M.predicted among blacks MDRD (S/P/Bld) [Vol rate/Area]mL/min/{1.73_m2}Normal>60The [facility] Comment on above:Order Comment: No: Do not add to previous drawResult Comment: Calculation may not be valid for patients over 70 yearsPerformed By: #### 01869 #### [facility] [address] [place] [address], USAGFR/1.73 sq M.predicted among non-blacks MDRD (S/P/Bld) [Vol rate/Area]mL/min/{1.73_m2}Normal>60The [facility] Comment on above:Order Comment: No: Do not add to previous drawResult Comment: Calculation may not be valid for patients over 70 yearsPerformed By: #### 91705 #### [facility] [address] [place] [address], USAGlucose [Mass/Vol]78 mg/mXVntlyg58-321Xxh [facility] PrebleComment on above:Order Comment: No: Do not add to previous drawPerformed By: #### 90455 #### [facility] [address] [place] [address], USAPotassium [Moles/Vol]3.6 mmol/LNormal3.5-5.1The [facility] PrebleComment on above:Order Comment: No: Do not add to previous drawPerformed By: #### 01650 #### [facility] [address] [place] [address], USASodium [Moles/Vol]134 mmol/TVdk699-206Mfo [facility] PrebleComment on above:Order Comment: No: Do not add to previous drawPerformed By: #### 74318 #### [facility] [address] [place] [address], USAUrea nitrogen [Mass/Vol]14 mg/dLNormal7-25The [facility] PrebleComment on above:Order Comment: No: Do not add to previous drawPerformed By: #### 41492 #### [facility] [address] [place] [address], USACBC COMPLETE BLOOD COUNTon 21-79-0255Yledsjspxvw distribution width (RBC) [Ratio]17.1 %High11.5-15.0The [facility] PrebleComment on above:Order Comment: No: Do not add to previous draw Performed By: #### 39956, 12064, 09600 #### [facility] [address] [place] [address], USAHematocrit (Bld) [Volume fraction]28.4 %Low36.0-45.0The [facility] PrebleComment on above:Order Comment: No: Do not add to previous drawPerformed By: #### 81780, 24115, 95271 #### [facility] [address] [place] [address], USAHemoglobin (Bld) [Mass/Vol]9.3 g/dLLow12.0-15.0The [facility] PrebleComment on above:Order Comment: No: Do not add to previous drawPerformed By: #### 39463, 46812, 38273 #### [facility] [address] [place] [address], [facility] (RBC) [Entitic mass]28.2 wpAjtdzu59.0-33.0The [facility] PrebleComment on above:Order Comment: No: Do not add to previous drawPerformed By: #### 02499, 61778, 70779 #### [facility] [address] [place] [address], [facility] (RBC) [Mass/Vol]32.7 g/nTAblkhf23.0-35.0The [facility] PrebleComment on above:Order Comment: No: Do not add to previous drawPerformed By: #### 43819, 87003, 94349 #### [facility] [address] [place] [address], [facility] (RBC) [Entitic vol]86.1 aGWorqxs16.0-98.0The [facility] PrebleComment on above:Order Comment: No: Do not add to previous drawPerformed By: #### 91666, 39021, 65538 #### [facility] [address] [place] [address], USANucleated RBC/100 WBC (Bld) [Ratio]0 %Normal0-0The [facility] PrebleComment on above:Order Comment: No: Do not add to previous drawPerformed By: #### 01682, 19542, 15210 #### [address] [place] [address], USAPLAT [id number] 10*3/iSOkuhmm474-399Jqk [facility] PrebleComment on above:Order Comment: No: Do not add to previous draw Performed By: #### 43983, 93506, 64214 #### [address] [place] [address], USARBC (Bld) [#/Vol]3.30 10*6/uLLow3.80-5.00The [facility] PrebleComment on above:Order Comment: No: Do not add to previous drawPerformed By: #### 19256, 05704, 85977 #### [address] [place] [address], [facility] NEW MEXICOWBC (Bld) [#/Vol]9.87 10*3/uLNormal4.00-10.60The [facility] PrebleComment on above:Order Comment: No: Do not add to previous drawPerformed By: #### 66341, 18780, 91707 #### [address] [place] [address], USACT ABDOMEN AND PELVIS W IV AND ORAL CONTRASTon 28-76-6937SH ABDOMEN AND PELVIS W IV AND ORAL CONTRASTUnParkview Health Department of Radiology [address] [place] [id number] Patient Name: SABI SANTAMARIA : 1945 Sex: F Age: Race: Other Pt. Location: [id number] Patient Status: I Ordered Date: 12/23/2021 9:05:00 [...] sidewalls. 5. Mild anasarca. Electronically signed: Saundra Magaña. Transcribed by: [email or web address], User Resident: Electronically Signed by: SAUNDRA MAGAÑA @ 12/23/2021 12:49 PMNormalThe [facility] PrebleComment on above:Order Comment: No: Do not add to previous drawMAGNESIUM BLOODon 61-56-2294Dyxkigkkk [Mass/Vol]2.0 mg/dL Normal1.9-2.7The [facility] PrebleComment on above:Order Comment: No: Do not add to previous drawPerformed By: #### 63722 #### [facility] [address] [place] [address], USAPHOSPHORUS BLOODon 44-17-6057Lffuovnis [Mass/Vol]2.9 mg/dL Normal2.5-5.0The [facility] PrebleComment on above:Order Comment: No: Do not add to previous drawPerformed By: #### 74348 #### [facility] [address] [place] [address], USABASIC METABOLIC PANELon 89-83-4631Ncbpmso [Mass/Vol]8.2 mg/dLLow8.6-10.3The [facility] PrebleComment on above:Order Comment: No: Do not add to previous drawPerformed By: #### 99956 #### [facility] [address] [place] [address], USAChloride [Moles/Vol]102 mmol/NPsftqn41-122Vbo [facility] PrebleComment on above:Order Comment: No: Do not add to previous drawPerformed By: #### 12065 #### [facility] [address] [place] [address], USACO2 [Moles/Vol]25 mmol/KGfommr76-02Nbk [facility] PrebleComment on above:Order Comment: No: Do not add to previous draw Performed By: #### 84787 #### [facility] [address] [place] [address], USACreatinine [Mass/Vol]0.65 mg/dLNormal0.60-1.20The [facility] PrebleComment on above:Order Comment: No: Do not add to previous drawPerformed By: #### 29263 #### [facility] [address] [place] [address], USAGFR/1.73 sq M.predicted among blacks MDRD (S/P/Bld) [Vol rate/Area]mL/min/{1.73_m2}Normal>60The [facility] Comment on above:Order Comment: No: Do not add to previous drawResult Comment: Calculation may not be valid for patients over 70 yearsPerformed By: #### 89007 #### [facility] [address] [place] [address], USAGFR/1.73 sq M.predicted among non-blacks MDRD (S/P/Bld) [Vol rate/Area]mL/min/{1.73_m2}Normal>60The [facility] Comment on above:Order Comment: No: Do not add to previous drawResult Comment: Calculation may not be valid for patients over 70 yearsPerformed By: #### 10379 #### [facility] [address] [place] [address], USAGlucose [Mass/Vol]124 mg/tJCste89-096Nva [facility] PrebleComment on above:Order Comment: No: Do not add to previous drawPerformed By: #### 59174 #### [facility] [address] [place] [address], USAPotassium [Moles/Vol]3.5 mmol/LNormal3.5-5.1The [facility] PrebleComment on above:Order Comment: No: Do not add to previous drawPerformed By: #### 27829 #### [facility] [address] [place] [address], USASodium [Moles/Vol]135 mmol/GMmw594-196Qer [facility] PrebleComment on above:Order Comment: No: Do not add to previous drawPerformed By: #### 66726 #### [facility] [address] [place] [address], USAUrea nitrogen [Mass/Vol]19 mg/dLNormal7-25The [facility] PrebleComment on above:Order Comment: No: Do not add to previous drawPerformed By: #### 49159 #### [facility] [address] [place] [address], USACBC COMPLETE BLOOD COUNTon 42-90-1112Djteyxakqyq distribution width (RBC) [Ratio]16.7 %High11.5-15.0The [facility] PrebleComment on above:Order Comment: No: Do not add to previous draw Performed By: #### 26649, 47692, 76053 #### [facility] [address] [place] [address], USAHematocrit (Bld) [Volume fraction]31.8 %Low36.0-45.0The [facility] PrebleComment on above:Order Comment: No: Do not add to previous drawPerformed By: #### 59332, 11779, 85550 #### [facility] [address] [place] [address], USAHemoglobin (Bld) [Mass/Vol]10.2 g/dLLow12.0-15.0The [facility] PrebleComment on above:Order Comment: No: Do not add to previous drawPerformed By: #### 04129, 10564, 56387 #### [facility] [address] [place] [address], [facility] (RBC) [Entitic mass]27.8 snDvujql99.0-33.0The [facility] PrebleComment on above:Order Comment: No: Do not add to previous drawPerformed By: #### 05355, 36582, 26735 #### [facility] [address] [place] [address], [facility] (RBC) [Mass/Vol]32.1 g/lABmqrpe15.0-35.0The [facility] PrebleComment on above:Order Comment: No: Do not add to previous drawPerformed By: #### 50719, 79032, 25792 #### [facility] [address] [place] [address], [facility] (RBC) [Entitic vol]86.6 tVGkmzim10.0-98.0The [facility] PrebleComment on above:Order Comment: No: Do not add to previous drawPerformed By: #### 27620, 44008, 53415 #### [facility] [address] [place] [address], [facility] NEW MEXICONucleated RBC/100 WBC (Bld) [Ratio]0 %Normal0-0The [facility] PrebleComment on above:Order Comment: No: Do not add to previous drawPerformed By: #### [id number], [id number] #### [facility] [address] [place] [address], [place] [id number] 10*3/rLWkptwa264-247Jui [facility] PrebleComment on above:Order Comment: No: Do not add to previous draw Performed By: #### [id number], [id number], [id number] #### [facility] [address] [place] [address], [facility] SOUTHER[facility] NEW MEXICORBC (Bld) [#/Vol]3.67 10*6/uLLow3.80-5.00The [facility] PrebleComment on above:Order Comment: No: Do not add to previous drawPerformed By: #### [id number], [id number], [id number] #### [facility] [address] [place] [address], [facility] SOUTHER[facility] NEW MEXICOWBC (Bld) [#/Vol]10.68 10*3/uLHigh4.00-10.60The [facility] PrebleComment on above:Order Comment: No: Do not add to previous drawPerformed By: #### 39053, 82152, 49743 #### [facility] [address] [address], [facility] MEXICOMAGNESIUM BLOODon 01-69-6313Vdmwnnpdy [Mass/Vol]1.8 mg/dL Low1.9-2.7The [facility] PrebleComment on above:Order Comment: No: Do not add to previous drawPerformed By: #### [id number] #### [facility] [address] [place] [place] [address], [facility] MEXICOPHOSPHORUS BLOODon 95-05-8046Uvspdxtcz [Mass/Vol]3.2 mg/dL Normal2.5-5.0The [facility] PrebleComment on above:Order Comment: No: Do not add to previous drawPerformed By: #### [id number] #### [facility] [address] [place] [address], [facility]*URINE CULTUREon 12-21-2021*URINE CULTUREClinical Report: (D) Specimen/Source: URINE/CLEAN VOID URINE Collected: 12/21/2021 18:00 Status: Final Last Updated: 12/23/2021 08:30 ISO (Final) Citrobacter koseri >100,000 Cfu/Ml ISOLATE: Citrobacter koseri MAHENDRA (mcg/ml) AMP./SULBAC (AMS) 4/2 Susceptible AMPICILLIN (AM) >16 Resistant AZTREONAM (AZM) <=2 Susceptible CEFAZOLIN (CZ) <=1 Susceptible CEFTRIAXONE (CUFF TURNER) <=1 Susceptible CIPROFLOXACIN (CIP) <=0.25 Susceptible GENTAMICIN (GM) <=2 Susceptible NITROFURANTOIN (FT) 64 Intermediate PIP/TAZO (TZP) 4/4 Susceptible TOBRAMYCIN (TOB) <=2 Susceptible TRIMETH/SULFA (SXT) <=0.5/9.5 SusceptibleNormalThe [facility] PrebleComment on above:Performed By: #### [id number] #### [facility] [address] [place] [address], USABASIC METABOLIC PANELon 38-54-5852Edundmh [Mass/Vol]8.8 mg/dLNormal8.6-10.3The [facility] PrebleComment on above:Order Comment: No: Do not add to previous drawPerformed By: #### 99635, 96216, 44252 #### [facility] [address] [place] [address], USAChloride [Moles/Vol]102 mmol/ADbssyg44-985Kvx [facility] PrebleComment on above:Order Comment: No: Do not add to previous drawPerformed By: #### 96210, 30678, 57343 #### [facility] [address] [place] [address], USACO2 [Moles/Vol]26 mmol/BSqrvdv89-87Ttn [facility] PrebleComment on above:Order Comment: No: Do not add to previous draw Performed By: #### 95918, 94065, 09532 #### [facility] [address] [address], USACreatinine [Mass/Vol]0.57 mg/dLLow0.60-1.20The [facility] PrebleComment on above:Order Comment: No: Do not add to previous drawPerformed By: #### 68672, 13703, 17394 #### [facility] [address] [place] [address], USAGFR/1.73 sq M.predicted among blacks MDRD (S/P/Bld) [Vol rate/Area]mL/min/{1.73_m2}Normal>60The [facility] Preble Comment on above:Order Comment: No: Do not add to previous drawResult Comment: Calculation may not be valid for patients over 70 yearsPerformed By: #### 73278, 77261, 56492 #### [facility] [address] [place] [address], USAGFR/1.73 sq M.predicted among non-blacks MDRD (S/P/Bld) [Vol rate/Area]mL/min/{1.73_m2}Normal>60The [facility] Comment on above:Order Comment: No: Do not add to previous drawResult Comment: Calculation may not be valid for patients over 70 yearsPerformed By: #### 63735, 85203, 54124 #### [facility] [address] [place] [address], USAGlucose [Mass/Vol]124 mg/hANrkv09-193Mqf [facility] PrebleComment on above:Order Comment: No: Do not add to previous drawPerformed By: #### 44408, 60130, 23017 #### [facility] [address] [address], USAPotassium [Moles/Vol]4.3 mmol/LNormal3.5-5.1The [facility] PrebleComment on above:Order Comment: No: Do not add to previous drawPerformed By: #### 13977, 87994, 75584 #### [facility] [address] [place] [address], USASodium [Moles/Vol]135 mmol/AMta008-408Sie [facility] PrebleComment on above:Order Comment: No: Do not add to previous drawPerformed By: #### 09805, 19911, 28763 #### [facility] [address] [place] [address], USAUrea nitrogen [Mass/Vol]15 mg/dLNormal7-25The [facility] PrebleComment on above:Order Comment: No: Do not add to previous drawPerformed By: #### 81298, 52183, 99250 #### [facility] [address] [place] [address], USACBC COMPLETE BLOOD COUNTon 64-76-0472Lqsmujsqphh distribution width (RBC) [Ratio]16.6 %High11.5-15.0The [facility] PrebleComment on above:Order Comment: No: Do not add to previous draw Performed By: #### 07853, 01302, 37966 #### [facility] [address] [place] [address], USAHematocrit (Bld) [Volume fraction]38.0 %Bhffpq27.0-45.0The [facility] PrebleComment on above:Order Comment: No: Do not add to previous drawPerformed By: #### 53337, 76245, 55334 #### [facility] [address] [place] [address], USAHemoglobin (Bld) [Mass/Vol]12.1 g/hTSkkeat44.0-15.0The [facility] PrebleComment on above:Order Comment: No: Do not add to previous drawPerformed By: #### 93482, 05606, 18996 #### [facility] [address] [place] [address], [facility] (RBC) [Entitic mass]27.5 hrRrdtoh93.0-33.0The [facility] PrebleComment on above:Order Comment: No: Do not add to previous drawPerformed By: #### 89750, 13510, 69917 #### [facility] [address] [place] [address], [facility] MEXICOMCHC (RBC) [Mass/Vol]31.8 g/dLLow32.0-35.0The [facility] PrebleComment on above:Order Comment: No: Do not add to previous drawPerformed By: #### 17510, 69297, 14302 #### [facility] [address] [place] [address], USAMCV (RBC) [Entitic vol]86.4 zDYbboek07.0-98.0The [facility] PrebleComment on above:Order Comment: No: Do not add to previous drawPerformed By: #### 63868, 01584, 79779 #### [facility] [address] [place] [address], USANucleated RBC/100 WBC (Bld) [Ratio]0 %Normal0-0The [facility] PrebleComment on above:Order Comment: No: Do not add to previous drawPerformed By: #### 78021, 99281, 48121 #### [facility] [address] [place] [address], USAPLAT [id number] 10*3/kJGqnehm427-496Kfm [facility] PrebleComment on above:Order Comment: No: Do not add to previous draw Performed By: #### 36213, 90845, 40674 #### [facility] [address] [place] [address], USARBC (Bld) [#/Vol]4.40 10*6/uLNormal3.80-5.00The [facility] PrebleComment on above:Order Comment: No: Do not add to previous drawPerformed By: #### 79966, 30908, 41735 #### [facility] [address] [place] [address], USAWBC (Bld) [#/Vol]9.11 10*3/uLNormal4.00-10.60The [facility] PrebleComment on above:Order Comment: No: Do not add to previous drawPerformed By: #### 29454, 48336, 21307 #### [facility] [address] [place] [address], USAMAGNESIUM BLOODon 55-13-2609Ggxnlfomd [Mass/Vol]1.8 mg/dL Low1.9-2.7The [facility] PrebleComment on above:Order Comment: No: Do not add to previous drawPerformed By: #### 03953, 31832, 12323 #### [facility] [address] [place] [address], USAPHOSPHORUS BLOODon 64-25-8806Cazbjbhtp [Mass/Vol]3.7 mg/dL Normal2.5-5.0The [facility] PrebleComment on above:Order Comment: No: Do not add to previous drawPerformed By: #### 42281, 36611, 69718 #### [facility] [address] [place] [address], USAPOC GLUCOSE LABon 01-59-1591Dppfpyx [Mass/Vol]124 mg/dLHigh 70-100The [facility] PrebleComment on above:Performed By: #### 89462, 00553, 53257 #### [facility] [address] [place] [address], USAURINALYSIS REFLEXon 16-44-7075Jlipijhbto (U)CLOUDYAbnormal CLEARThe [facility] PrebleComment on above:Order Comment: No: Do not add to previous drawCriteria for reflexing a culture was met. Urine Culture and sensitivitywill be performed.Performed By: #### 71801 #### [facility] [address] [place] [address], USABilirubin Ql (U)NegativeNormalNEGATIVEThe [facility] PrebleComment on above:Order Comment: No: Do not add to previous drawCriteria for reflexing a culture was met. Urine Culture and sensitivitywill be performed.Performed By: #### 05656 #### [facility] [address] [place] [address], USAColor (U)YELLOWNormalYELLOWThe [facility] PrebleComment on above:Order Comment: No: Do not add to previous drawCriteria for reflexing a culture was met. Urine Culture and sensitivitywill be performed. Performed By: #### 81992 #### [facility] [address] [place] [address], USAEPISOCCNormalFEW,OCC,NONE SEENThe [facility] PrebleComment on above:Order Comment: No: Do not add to previous drawCriteria for reflexing a culture was met. Urine Culture and sensitivitywill be performed.Performed By: #### 91532 #### [facility] [address] [place] [address], USAGlucose Ql (U)NegativeNormalNEGATIVEThe [facility] PrebleComment on above:Order Comment: No: Do not add to previous drawCriteria for reflexing a culture was met. Urine Culture and sensitivitywill be performed.Performed By: #### 20940 #### [facility] [address] [place] [address], USAHemoglobin Ql (U)NegativeNormalNEGATIVEThe [facility] PrebleComment on above:Order Comment: No: Do not add to previous drawCriteria for reflexing a culture was met. Urine Culture and sensitivitywill be performed.Performed By: #### 15101 #### [facility] [address] [place] [address], USAKETONENegativeNormalNEGATIVEThe [facility] PrebleComment on above:Order Comment: No: Do not add to previous drawCriteria for reflexing a culture was met. Urine Culture and sensitivitywill be performed.Performed By: #### 57783 #### [facility] [address] [place] [address], USALEUK ESTERLARGEAbnormalNEGATIVEThe [facility] PrebleComment on above:Order Comment: No: Do not add to previous drawCriteria for reflexing a culture was met. Urine Culture and sensitivitywill be performed.Performed By: #### 25797 #### [facility] [address] [place] [address], USAMUCUS THREADSOCCAbnormalNONE SEENThe [facility] PrebleComment on above:Order Comment: No: Do not add to previous drawCriteria for reflexing a culture was met. Urine Culture and sensitivitywill be performed.Performed By: #### 85485 #### [facility] [address] [place] [address], USANitrite Ql (U)PositiveAbnormalNEGATIVEThe [facility] PrebleComment on above:Order Comment: No: Do not add to previous drawCriteria for reflexing a culture was met. Urine Culture and sensitivitywill be performed.Performed By: #### 22222 #### [facility] [address] [place] [address], USApH (U)5.0 [pH]Normal5.0-8.0The [facility] PrebleComment on above:Order Comment: No: Do not add to previous drawCriteria for reflexing a culture was met. Urine Culture and sensitivitywill be performed. Performed By: #### 44427 #### [facility] [address] [place] [address], USAProtein Ql (U)30 mg/dLAbnormalNEGATIVEThe [facility] PrebleComment on above:Order Comment: No: Do not add to previous drawCriteria for reflexing a culture was met. Urine Culture and sensitivitywill be performed.Performed By: #### 00826 #### [facility] [address] [place] [address], USARBCNONE SEENNormalNONE SEENThe [facility] PrebleComment on above:Order Comment: No: Do not add to previous drawCriteria for reflexing a culture was met. Urine Culture and sensitivitywill be performed. Performed By: #### 62420 #### [facility] [address] [place] [address], USASPEC GRAV1.421Miyk2.015-1.020The [facility] PrebleComment on above:Order Comment: No: Do not add to previous drawCriteria for reflexing a culture was met. Urine Culture and sensitivitywill be performed.Performed By: #### 41900 #### [facility] [address] [place] [address], USAWBC UA>100AbnormalNONE SEENThe [facility] PrebleComment on above:Order Comment: No: Do not add to previous drawCriteria for reflexing a culture was met. Urine Culture and sensitivitywill be performed. Performed By: #### 24385 #### [facility] [address] [place] [address], USAAMYLASEon 43-43-0879Zlssujl [Catalytic activity/Vol]47 U/L Xltggx57-305Ysi [facility] HospitalComment on above:Performed By: #### BONNIE, LIPA, CMP #### [facility] [address] [place] [address] Dr. Sung Jasso AUTO DIFFon 41-38-5777VZAR #0.0 103/ulNormal0.0-0.1The [facility] HospitalComment on above:Performed By: #### BONNIE, LIPA, CMP #### [facility] [address] [address] [address] Sung MooreBasophils/100 WBC (Bld)0.1 %Critically low0.2-2.0The [facility] HospitalComment on above:Performed By: #### BONNIE, LIPA, CMP #### [facility] [address] [place] [address] Dr. Sung Morrow #0.1 103/ulNormal0.0-0.7The [facility] HospitalComment on above: Performed By: #### BONNIE, LIPA, CMP #### [facility] [address] [place] [address] Dr. Yilan ChangEosinophils/100 WBC (Bld)0.5 %Critically low0.9-7.0The [facility] HospitalComment on above:Performed By: #### BONNIE, LIPA, CMP #### [facility] [address] [address] [address] Sung Huttonrythrocyte distribution width (RBC) [Ratio]16.4 %Critically high 11.0-15.0The [facility] HospitalComment on above:Performed By: #### BONNIE, LIPA, CMP #### [facility] [address] [place] [address] Dr. Sung MooreHematocrit (Bld) [Volume fraction]41.8 %Vsuons92.0-48.0The [facility] HospitalComment on above:Performed By: #### BONNIE, LIPA, CMP #### [facility] [address] [place] [address] Dr. Sung MooreHemoglobin (Bld) [Mass/Vol]13.2 g/cGQjhpdq76.0-16.0The [facility] HospitalComment on above:Performed By: #### BONNIE, LIPA, CMP #### [facility] [address] [address] [address] Sung Nj #0.07 10e3/ulCritically high0.00-0.03The [facility] Comment on above:Performed By: #### BONNIE, LIPA, CMP #### [facility] [address] [address] [address] Sung MooreIG %0.5 %Normal0.0-0.5The [facility] HospitalComment on above: Performed By: #### BONNIE, LIPA, CMP #### [facility] [address] [place] [address] Dr. Sung Morse #1.4 103/ulNormal1.2-3.8The [facility] HospitalComment on above:Performed By: #### BONNIE, LIPA, CMP #### [facility] [address] [place] [address] Dr. Sung Baileymphocytes/100 WBC (Bld)9.7 %Critically low20.5-60.0The [facility] HospitalComment on above:Performed By: #### BONNIE, LIPA, CMP #### [facility] [address] [place] [address] Dr. Sung Hobbs DIFF REQNONormalThe [facility] HospitalComment on above: Performed By: #### BONNIE, LIPA, CMP #### [facility] [address] [place] [address] Dr. Sung Viramontes (RBC) [Entitic mass]27.4 ddFbebrk26.7-34.0The [facility] HospitalComment on above:Performed By: #### BONNIE, LIPA, CMP #### [facility] [address] [place] [address] Dr. Sung Viramontes (RBC) [Mass/Vol]31.6 g/vODednho20.9-35.2The [facility] HospitalComment on above:Performed By: #### BONNIE, LIPA, CMP #### [facility] [address] [place] [address] Dr. Sung Viramontes (RBC) [Entitic vol]86.9 vBGvnidk27.0-99.0The [facility] HospitalComment on above:Performed By: #### BONNIE, LIPA, CMP #### [facility] [address] [place] [address] Dr. Sung Elizondo #0.7 103/ulNormal0.3-0.8The [facility] HospitalComment on above:Performed By: #### BONNIE, LIPA, CMP #### [facility] [address] [place] [address] Dr. Sung Maneocytes/100 WBC (Bld)5.3 %Normal1.7-12.0[facility] Comment on above:Performed By: #### BONNIE, LIPA, CMP #### [facility] [address] [place] [address] Dr. Sung Reyes #11.8 103/ulCritically high1.4-6.5The [facility] Comment on above:Performed By: #### BONNIE, LIPA, CMP #### [facility] [address] [place] [address] Dr. Sung Multaniutrophils/100 WBC (Bld)83.9 %Critically high43.0-75.0The [facility] HospitalComment on above:Performed By: #### BONNIE, LIPA, CMP #### [facility] [address] [place] [address] Dr. Sung MoorePlatelet mean volume (Bld) [Entitic vol]9.9 fLNormal9.5-13.5The [facility] HospitalComment on above:Performed By: #### BONNIE, LIPA, CMP #### [facility] [address] [place] [address] Dr. Sung MoorePLT335 103/gyAkkozi399-994Sqg [facility] HospitalComment on above: Performed By: #### BONNIE, LIPA, CMP #### [facility] [address] [place] [address] Dr. Sung MooreRBC4.81 106/ulNormal4.20-5.40The [facility] HospitalComment on above:Performed By: #### BONNIE, LIPA, CMP #### [facility] [address] [place] [address] Dr. Sung MooreWBC14.1 103/ulCritically high4.0-11.0The [facility] on above:Performed By: #### BONNIE, LIPA, CMP #### [facility] [address] [place] [address] Dr. Sung MooreCT ABD/PELV W CONon [id number] ABD/PELV W CONEXAMINATION: CT ABD/PELV W CON HISTORY: ABDOMINAL DISTENSION (GASEOUS) ; [...] Electronically authenticated by: DION SNOWDEN Date: 2021-12-20 13:12NoCleveland Clinic [facility] Pointe HospitalCovid-19 PCR (CVDTB)on 52-00-7211HWWS-CoV-2 (COVID-19) RNA ROMY+probe Ql (Unsp spec)Not detectedNormalNOT DETECTEDThe [facility] Comment on above:Result Comment: When diagnostic testing is negative, the [...] for this test is supported by the [place] of Health and Human Service's declaration that circumstances exist to justify the emergency use of in vitro diagnostics for the detection and/or diagnosis of the virus that causes COVID-19. This EUA will remain in effect for the duration of the COVID-19 declaration justifying emergency of IVDs, unless it is terminated or revoked by the FDA (after which the test may no longer be used).Performed By: #### LACT #### [facility] [address] [place] [address] Dr. Sung Ordoñezon 75-06-8434Ymlvhd [Catalytic activity/Vol]93.0 U/LNormal 73.0-393.0The [facility] on above:Performed By: #### BONNIE LIPA, CMP #### [facility] [address] [place] [address] Dr. Sung MoorePROF 14(COMP METB)on 12-03-1823Xakcysw [Mass/Vol]3.6 g/dLNormal 3.4-5.0[facility] on above:Performed By: #### BONNIE, LIPA, CMP #### [facility] [address] [place] [address] Dr. Sung MooreAlbumin/Globulin [Mass ratio]0.7 {ratio}NormalThe [facility] on above:Performed By: #### BONNIE, LIPA, CMP #### [facility] [address] [place] [address] Dr. Sung ArnettP [Catalytic activity/Vol]128 U/LCritically jvys48-752Fjg [facility] on above:Performed By: #### BONNIE, LIPA, CMP #### [facility] [address] [place] [address] Dr. Sung ArnettT [Catalytic activity/Vol]20 U/BJqhzvq64-68Zjm [facility] on above:Performed By: #### BONNIE, LIPA, CMP #### [facility] [address] [address] [address] Sung Armstrong gap [Moles/Vol]11.7 mmol/LNormalThe [facility] Comment on above:Performed By: #### BONNIE, LIPA, CMP #### [facility] [address] [address] [address] Sung MooreAST [Catalytic activity/Vol]22 U/VLwpwyk45-64Phb [facility] HospitalComment on above:Performed By: #### BONNIE, LIPA, CMP #### [facility] [address] [place] [address] Dr. Sung MooreBilirubin [Mass/Vol]0.8 mg/dLNormal0.2-1.0[facility] Comment on above:Performed By: #### BONNIE, LIPA, CMP #### [facility] [address] [place] [address] Dr. Sung MooreCalcium [Mass/Vol]9.8 mg/dLNormal8.5-10.1[facility] Comment on above:Performed By: #### BONNIE, LIPA, CMP #### [facility] [address] [place] [address] Dr. Sung MooreChloride [Moles/Vol]99 mmol/NDusvwh46-876UnqMet[facility]health [facility] Comment on above:Performed By: #### BONNIE, LIPA, CMP #### [facility] [address] [place] [address] Dr. Sung MooreCO2 [Moles/Vol]26.6 mmol/VXyxuuz02.0-32.0The [facility] Comment on above:Performed By: #### BONNIE, LIPA, CMP #### [facility] [address] [place] [address] Dr. Sung MooreCreatinine [Mass/Vol]0.82 mg/dLNormal0.55-1.02The [facility] HospitalComment on above:Performed By: #### BONNIE, LIPA, CMP #### [facility] [address] [place] [address] Dr. Yilan ChangEGFR-AF ROMANIAN>60Normal>=60The [facility] HospitalComment on above:Performed By: #### EARL JORGENSENA, CMP #### [facility] [address] [place] [address] Dr. Sung HuttonGFR-NON AF ROMANIAN>60Normal>=60The [facility] HospitalComment on above:Performed By: #### BONNIE LIPA, CMP #### [facility] [address] [place] [address] Dr. Sung MooreGlobulin (S) [Mass/Vol]5.0 g/dLNormalThe [facility] HospitalComment on above:Performed By: #### BONNIE LIPA, CMP #### [facility] [address] [place] [address] Dr. Sung MooreGlucose [Mass/Vol]188 mg/dLCritically cfvg66-289Qhx [facility] HospitalComment on above:Performed By: #### BONNIE LIPA, CMP #### [facility] [address] [place] [address] Dr. Sung MoorePotassium [Moles/Vol]4.3 mmol/LNormal3.5-5.1The [facility] Comment on above:Performed By: #### BONNIE LIPA, CMP #### [facility] [address] [place] [address] Dr. Sung MooreProtein [Mass/Vol]8.6 g/dLCritically high6.4-8.2The [facility] HospitalComment on above:Performed By: #### BONNIE, LIPA, CMP #### [facility] [address] [place] [address] Dr. Sung MooreSodium [Moles/Vol]133 mmol/LCritically snp299-315Ycy [facility] HospitalComment on above:Performed By: #### BONNIE, LIPA, CMP #### [facility] [address] [place] [address] Dr. Sung MooreUrea nitrogen [Mass/Vol]15.0 mg/dLNormal7.0-18.0The [facility] HospitalComment on above:Performed By: #### BONNIE LIPA, CMP #### [facility] [address] [place] [address] Dr. Sung Hayes nitrogen/Creatinine [Mass ratio]18.3 mg/mgNoCleveland Clinic South Pointe HospitalComment on above:Performed By: #### BONNIE, LIPA, CMP #### [facility] [address] [place] [address] Dr. Sung MooreXR KUB 1 VIEWon 27-40-0142HS KUB 1 VIEWEXAMINATION: XR KUB 1 VIEW HISTORY: Nasogastric tube in situ COMPARISON: No relevant comparison available. FINDINGS: BOWEL GAS PATTERN: Nasogastric tube within body of stomach. No abnormal bowel dilation. CALCIFICATIONS: None significant. OTHER: Oral contrast from recent study within kidneys and urinary bladder. Numerous abdominal and pelvic surgical clips. IMPRESSION: 1. Nasogastric tube within body of stomach. Electronically authenticated by: DION SNOWDEN Date: 2021-12-20 14:16[facility] CenterBNPon [id number] peptide B (Bld) [Mass/Vol]3120.0 pg/mLCritically high<=1,800.0The [facility] HospitalComment on above:Performed By: #### CMP, BNP #### [facility] [address] [place] [address] Dr. Sung RosarioC AUTO DIFFon [id number] #0.0 103/ulNormal0.0-0.1The [facility] HospitalComment on above:Performed By: #### CRP, CMP #### [facility] [address] [place] [address] Dr. Sung MooreBasophils/100 WBC (Bld)0.1 %Critically low0.2-2.0The [facility] HospitalComment on above:Performed By: #### CRP, CMP #### [facility] [address] [place] [address] Dr. Sung Morrow #0.0 103/ulNormal0.0-0.7The [facility] HospitalComment on above: Performed By: #### CRP, CMP #### [facility] [address] [address] [address] Sung Huttonosinophils/100 WBC (Bld)0.0 %Critically low0.9-7.0The [facility] HospitalComment on above:Performed By: #### CRP, CMP #### [facility] [address] [place] [address] Dr. Sung Huttonrythrocyte distribution width (RBC) [Ratio]15.8 %Critically high 11.0-15.0The [facility] HospitalComment on above:Performed By: #### CRP, CMP #### [facility] [address] [place] [address] Dr. Sung MooreHematocrit (Bld) [Volume fraction]27.5 %Critically low36.0-48.0 The [facility] HospitalComment on above:Performed By: #### CRP, CMP #### [facility] [address] [place] [address] Dr. Sung MooreHemoglobin (Bld) [Mass/Vol]8.6 g/dLCritically low12.0-16.0The [facility] HospitalComment on above:Performed By: #### CRP, CMP #### [facility] [address] [place] [address] Dr. Sung Nj #0.10 10e3/ulCritically high0.00-0.03The [facility] Comment on above:Performed By: #### CRP, CMP #### [facility] [address] [place] [address] Dr. Sung Nj %0.7 %Critically high0.0-0.5The [facility] HospitalComment on above:Performed By: #### CRP, CMP #### [facility] [address] [place] [address] Dr. Sung WebbH #1.2 103/ulNormal1.2-3.8The [facility] HospitalComment on above:Performed By: #### CRP, CMP #### [facility] [address] [place] [address] Dr. Sung Baileymphocytes/100 WBC (Bld)9.3 %Critically low20.5-60.0The [facility] HospitalComment on above:Performed By: #### CRP, CMP #### [facility] [address] [place] [address] Dr. Sung Hobbs DIFF REQNONormalThe [facility] HospitalComment on above: Performed By: #### CRP, CMP #### [facility] [address] [place] [address] Dr. Sung Viramontes (RBC) [Entitic mass]27.4 boVigond11.7-34.0The [facility] HospitalComment on above:Performed By: #### CRP, CMP #### [facility] [address] [place] [address] Dr. Sung Viramontes (RBC) [Mass/Vol]31.3 g/bCCqzjob77.9-35.2The [facility] HospitalComment on above:Performed By: #### CRP, CMP #### [facility] [address] [place] [address] Dr. Sung Weaver (RBC) [Entitic vol]87.6 oTQwlecu11.0-99.0The [facility] HospitalComment on above:Performed By: #### CRP, CMP #### [facility] [address] [place] [address] Dr. Sung Elizondo #0.2 103/ulCritically low0.3-0.8The [facility] HospitalComment on above:Performed By: #### CRP, CMP #### [facility] [address] [place] [address] Dr. Sung Maneocytes/100 WBC (Bld)1.6 %Critically low1.7-12.0The [facility] HospitalComment on above:Performed By: #### CRP, CMP #### [facility] [address] [place] [address] Dr. Sung Reyes #11.8 103/ulCritically high1.4-6.5The [facility] Comment on above:Performed By: #### CRP, CMP #### [facility] [address] [place] [address] Dr. Yilan ChangNeutrophils/100 WBC (Bld)88.3 %Critically high43.0-75.0The [facility] on above:Performed By: #### CRP, CMP #### [facility] [address] [place] [address] Dr. Sung Campoverde mean volume (Bld) [Entitic vol]9.5 fLNormal9.5-13.5The [facility] HospitalComment on above:Performed By: #### CRP, CMP #### [facility] [address] [place] [address] Dr. Sung MoorePLT239 103/gxCflmhu837-601Njh [facility] on above: Performed By: #### CRP, CMP #### [facility] [address] [place] [address] Dr. Sung MooreRBC3.14 106/ulCritically low4.20-5.40The [facility] on above:Performed By: #### CRP, CMP #### [facility] [address] [place] [address] Dr. Sung MooreWBC13.4 103/ulCritically high4.0-11.0The [facility]Comasp[facility] on above:Performed By: #### CRP, CMP #### [facility] [address] [place] [address] Dr. Sung MoorePROF 14(COMP METB)on 54-66-3930Jbxfksp [Mass/Vol]2.4 g/dL Critically low3.4-5.0The [facility]Comasp[facility] on above:Performed By: #### CMP, BNP #### [facility] [address] [place] [address] Dr. Sung MooreAlbumin/Globulin [Mass ratio]0.6 {ratio}NormalThe [facility] on above:Performed By: #### CMP, BNP #### [facility] [address] [place] [address] Dr. Sung MooreALP [Catalytic activity/Vol]68 U/CYvdazx41-707Smb [facility] on above:Performed By: #### CMP, BNP #### [facility] [address] [address] [address] Sung ArnettT [Catalytic activity/Vol]21 U/DHktzai78-52Ofm [facility] HospitalComment on above:Performed By: #### CMP, BNP #### [facility] [address] [address] [address] Sung Kumaron gap [Moles/Vol]14.9 mmol/LNormalThe [facility] Comment on above:Performed By: #### CMP, BNP #### [facility] [address] [address] [address] Sung MooreAST [Catalytic activity/Vol]22 U/XEgodcb44-45Ckm [facility] HospitalComment on above:Performed By: #### CMP, BNP #### [facility] [address] [place] [address] Dr. Sung MooreBilirubin [Mass/Vol]0.2 mg/dLNormal0.2-1.0The [facility] Comment on above:Performed By: #### CMP, BNP #### [facility] [address] [place] [address] Dr. Sung MooreCalcium [Mass/Vol]8.6 mg/dLNormal8.5-10.1The [facility] Comment on above:Performed By: #### CMP, BNP #### [facility] [address] [place] [address] Dr. Sung MooreChloride [Moles/Vol]108 mmol/LCritically omwy55-053Smj [facility] HospitalComment on above:Performed By: #### CMP, BNP #### [facility] [address] [address] [address] Sung MooreCO2 [Moles/Vol]20.1 mmol/LCritically low21.0-32.0The [facility] HospitalComment on above:Performed By: #### CMP, BNP #### [facility] [address] [place] [address] Dr. Sung MooreCreatinine [Mass/Vol]0.74 mg/dLNormal0.55-1.02The [facility] HospitalComment on above:Performed By: #### CMP, BNP #### [facility] [address] [address] [address] Sung HuttonGFR-AF ROMANIAN>60Normal>=60The [facility] HospitalComment on above:Performed By: #### CMP, BNP #### [facility] [address] [address] [address] Sung HuttonGFR-NON AF ROMANIAN>60Normal>=60The [facility] HospitalComment on above:Performed By: #### CMP, BNP #### [facility] [address] [address] [address] Sung MooreGlobulin (S) [Mass/Vol]4.3 g/dLNormalThe [facility] HospitalComment on above:Performed By: #### CMP, BNP #### [facility] [address] [address] [address] Sung MooreGlucose [Mass/Vol]138 mg/dLCritically inxm68-942Lpf [facility] HospitalComment on above:Performed By: #### CMP, BNP #### [facility] [address] [address] [address] Sung MoorePotassium [Moles/Vol]4.0 mmol/LNormal3.5-5.1The [facility] Comment on above:Performed By: #### CMP, BNP #### [facility] [address] [address] [address] Sung MooreProtein [Mass/Vol]6.7 g/dLNormal6.4-8.2The [facility] Comment on above:Performed By: #### CMP, BNP #### [facility] [address] [address] [address] Sung MooreSodium [Moles/Vol]139 mmol/QIhvjat298-397Pjs [facility] Comment on above:Performed By: #### CMP, BNP #### [facility] [address] [address] [address] Sung MooreUrea nitrogen [Mass/Vol]23.0 mg/dLCritically high7.0-18.0The [facility] on above:Performed By: #### CMP, BNP #### [facility] [address] [place] [address] Dr. Sung Hayes nitrogen/Creatinine [Mass ratio]31.1 mg/mgNormalThe [facility] HospitalComasp[facility] on above:Performed By: #### CMP, BNP #### [facility] [address] [place] [address] Dr. Sung Rao [id number] peptide B (Bld) [Mass/Vol]3014.0 pg/mLCritically high<=1,800.0The [facility] on above:Performed By: #### LACT #### [facility] [address] [place] [address] Dr. Sung RosarioC AUTO DIFFon 29-66-2712QOJI #0.0 103/ulNormal0.0-0.1The [facility] on above:Performed By: #### CBC #### [facility] [address] [place] [address] Dr. Sung Johnsonsophils/100 WBC (Bld)0.1 %Critically low0.2-2.0The [facility] on above:Performed By: #### CBC #### [facility] [address] [place] [address] Dr. Sung Morrow #0.0 103/ulNormal0.0-0.7The [facility] on above: Performed By: #### CBC #### [facility] [address] [place] [address] Dr. Sung Huttonosinophils/100 WBC (Bld)0.0 %Critically low0.9-7.0The [facility] on above:Performed By: #### CBC #### [facility] [address] [place] [address] Dr. Sung Huttonrythrocyte distribution width (RBC) [Ratio]15.5 %Critically high 11.0-15.0The [facility] on above:Performed By: #### CBC #### [facility] [address] [address] [address] Sung MooreHematocrit (Bld) [Volume fraction]28.4 %Critically low36.0-48.0 The [facility] HospitalComment on above:Performed By: #### CBC #### [facility] [address] [place] [address] Dr. Sung MooreHemoglobin (Bld) [Mass/Vol]8.8 g/dLCritically low12.0-16.0The [facility] on [facility]:Performed By: #### CBC #### [facility] [address] [place] [address] Dr. Sung MooreIG #0.06 10e3/ulCritically high0.00-0.03The [facility] Comment on above:Performed By: #### CBC #### [facility] [address] [place] [address] Dr. Sung MooreIG %0.4 %Normal0.0-0.5The [facility] HospitalComment on above: Performed By: #### CBC #### [facility] [address] [place] [address] Dr. Sung Morse #1.3 103/ulNormal1.2-3.8The [facility] HospitalComment on above:Performed By: #### CBC #### [facility] [address] [place] [address] Dr. Sung Baileymphocytes/100 WBC (Bld)9.2 %Critically low20.5-60.0The [facility] HospitalComment on above:Performed By: #### CBC #### [facility] [address] [place] [address] Dr. Sung MooreMANUAL DIFF REQNONormalThe [facility] HospitalComment on above: Performed By: #### CBC #### [facility] [address] [place] [address] Dr. Sung Napoles (RBC) [Entitic mass]27.2 fbCxutzu64.7-34.0The [facility] HospitalComment on above:Performed By: #### CBC #### [facility] [address] [address] [address] Sung ViramontesHC (RBC) [Mass/Vol]31.0 g/kUOdkgga67.9-35.2The [facility] HospitalComment on above:Performed By: #### CBC #### [facility] [address] [address] [address] Sung ViramontesV (RBC) [Entitic vol]87.7 bXFfzsfm90.0-99.0The [facility] HospitalComment on above:Performed By: #### CBC #### [facility] [address] [address] [address] Sung Elizondo #0.5 103/ulNormal0.3-0.8The [facility] HospitalComment on above:Performed By: #### CBC #### [facility] [address] [place] [address] Dr. Sung Maneocytes/100 WBC (Bld)3.5 %Normal1.7-12.0The [facility] Comment on above:Performed By: #### CBC #### [facility] [address] [address] [address] Sung Reyes #12.1 103/ulCritically high1.4-6.5The [facility] Comment on above:Performed By: #### CBC #### [facility] [address] [address] [address] Sung Multaniutrophils/100 WBC (Bld)86.8 %Critically high43.0-75.0The [facility] HospitalComment on above:Performed By: #### CBC #### [facility] [address] [address] [address] Sung Crumlet mean volume (Bld) [Entitic vol]9.8 fLNormal9.5-13.5The [facility] HospitalComment on above:Performed By: #### CBC #### [facility] [address] [address] [address] Sung MoorePLT250 103/klBzjilm302-107Vvy [facility] HospitalComment on above: Performed By: #### CBC #### [facility] [address] [place] [address] Dr. Sung MooreRBC3.24 106/ulCritically low4.20-5.40The [facility] on above:Performed By: #### CBC #### [facility] [address] [place] [address] Dr. Sung MooreWBC13.9 103/ulCritically high4.0-11.0The [facility] HospitalComment on above:Performed By: #### CBC #### [facility] [address] [place] [address] Dr. Sung Alvarez URINEon [id number] URINEIsolate 1 Escherichia coli >100,000 cfu/mL of ORGANISM [...] <=0.12 S F Nitrofurantoin <=16 S F Trimethoprim/Sulfamethoxazole <=20 S FNormalThe [facility] HospitalComment on above:Performed By: #### CRP, CMP #### [facility] [address] [place] [address] Dr. Sung MoorePROF 14(COMP METB)on 30-23-1029Khywwro [Mass/Vol]2.4 g/dL Critically low3.4-5.0The [facility] on above:Performed By: #### LACT #### [facility] [address] [place] [address] Dr. Sung MooreAlbumin/Globulin [Mass ratio]0.5 {ratio}NormalThe [facility] on above:Performed By: #### LACT #### [facility] [address] [place] [address] Dr. Sung Wilhelm [Catalytic activity/Vol]73 U/ZCvmdna99-844Ahf [facility] HospitalComment on above:Performed By: #### LACT #### [facility] [address] [place] [address] Dr. Sung Ivy [Catalytic activity/Vol]22 U/LUfvbvt61-23Toa [facility] HospitalComment on above:Performed By: #### LACT #### [facility] [address] [place] [address] Dr. Sung Armstrong gap [Moles/Vol]12.9 mmol/LNormalMet[facility] Comment on above:Performed By: #### LACT #### [facility] [address] [place] [address] Dr. Sung MooreAST [Catalytic activity/Vol]21 U/YUzomae71-20Sqf [facility] HospitalComment on above:Performed By: #### LACT #### [facility] [address] [place] [address] Dr. Sung MooreBilirubin [Mass/Vol]0.1 mg/dLCritically low0.2-1.0The [facility] HospitalComment on above:Performed By: #### LACT #### [facility] [address] [place] [address] Dr. Sung MooreCalcium [Mass/Vol]8.6 mg/dLNormal8.5-10.1[facility] Comment on above:Performed By: #### LACT #### [facility] [address] [place] [address] Dr. Sung MooreChloride [Moles/Vol]108 mmol/LCritically ymol42-541Smz [facility] HospitalComment on above:Performed By: #### LACT #### [facility] [address] [place] [address] Dr. Sung MooreCO2 [Moles/Vol]22.0 mmol/DBapufe16.0-32.0The [facility] Comment on above:Performed By: #### LACT #### [facility] [address] [place] [address] Dr. Sung MooreCreatinine [Mass/Vol]0.79 mg/dLNormal0.55-1.02The [facility] HospitalComment on above:Performed By: #### LACT #### [facility] [address] [place] [address] Dr. Sung HuttonGFR-AF ROMANIAN>60Normal>=60The [facility] HospitalComment on above:Performed By: #### LACT #### [facility] [address] [address] [address] Sung HuttonGFR-NON AF ROMANIAN>60Normal>=60The [facility] HospitalComment on above:Performed By: #### LACT #### [facility] [address] [place] [address] Dr. Sung MooreGlobulin (S) [Mass/Vol]4.5 g/dLNormalThe [facility] HospitalComment on above:Performed By: #### LACT #### [facility] [address] [place] [address] Dr. Sung MooreGlucose [Mass/Vol]149 mg/dLCritically sziq85-244Jui [facility] HospitalComment on above:Performed By: #### LACT #### [facility] [address] [place] [address] Dr. Sung MoorePotassium [Moles/Vol]2.8 mmol/LCritically low3.5-5.1The [facility] HospitalComment on above:Performed By: #### LACT #### [facility] [address] [place] [address] Dr. Sung MooreProtein [Mass/Vol]6.9 g/dLNormal6.4-8.2The [facility] Comment on above:Performed By: #### LACT #### [facility] [address] [address] [address] Sung MooreSodium [Moles/Vol]140 mmol/ECzwamc273-453Iok [facility] Comment on above:Performed By: #### LACT #### [facility] [address] [address] [address] Sung MooreUrea nitrogen [Mass/Vol]17.0 mg/dLNormal7.0-18.0The [facility] on above:Performed By: #### LACT #### [facility] [address] [place] [address] Dr. Sung Hayes nitrogen/Creatinine [Mass ratio]21.5 mg/mgNormalThe [facility] HospitalComasp[facility] on above:Performed By: #### LACT #### [facility] [address] [place] [address] Dr. Sung Rao [id number] peptide B (Bld) [Mass/Vol]882.0 pg/mL Normal<=1,800.0The [facility] on above:Performed By: #### CRP, CMP #### [facility] [address] [place] [address] Dr. Sung Jasso AUTO DIFFon [id number] #0.0 103/ulNormal0.0-0.1The [facility] on above:Performed By: #### CRP, CMP #### [facility] [address] [place] [address] Dr. Sung MooreBasophils/100 WBC (Bld)0.0 %Critically low0.2-2.0The [facility] on above:Performed By: #### CRP, CMP #### [facility] [address] [place] [address] Dr. Sung Morrow #0.0 103/ulNormal0.0-0.7The [facility]Com[facility] on above: Performed By: #### CRP, CMP #### [facility] [address] [place] [address] Dr. Sung Huttonosinophils/100 WBC (Bld)0.0 %Critically low0.9-7.0The [facility] on above:Performed By: #### CRP, CMP #### [facility] [address] [place] [address] Dr. Sung Huttonrythrocyte distribution width (RBC) [Ratio]15.1 %Critically high 11.0-15.0The [facility] HospitalComment on above:Performed By: #### CRP, CMP #### [facility] [address] [place] [address] Dr. Sung MooreHematocrit (Bld) [Volume fraction]28.5 %Critically low36.0-48.0 [facility] HospitalComment on above:Performed By: #### CRP, CMP #### [facility] [address] [place] [address] Dr. Sung MooreHemoglobin (Bld) [Mass/Vol]8.9 g/dLCritically low12.0-16.0The [facility] HospitalComment on above:Performed By: #### CRP, CMP #### [facility] [address] [place] [address] Dr. Sung Nj #0.02 10e3/ulNormal0.00-0.03The [facility] HospitalComment on above:Performed By: #### CRP, CMP #### [facility] [address] [place] [address] Dr. Sung Nj %0.5 %Normal0.0-0.5The [facility] HospitalComment on above: Performed By: #### CRP, CMP #### [facility] [address] [place] [address] Dr. Sung Morse #0.9 103/ulCritically low1.2-3.8The [facility] Comment on above:Performed By: #### CRP, CMP #### [facility] [address] [place] [address] Dr. Sung Webbhocytes/100 WBC (Bld)23.8 %Ervijr80.5-60.0The [facility] HospitalComment on above:Performed By: #### CRP, CMP #### [facility] [address] [place] [address] Dr. Sung MartinUAL DIFF REQNONormalThe [facility] HospitalComment on above: Performed By: #### CRP, CMP #### [facility] [address] [place] [address] Dr. Sung Napoles (RBC) [Entitic mass]27.4 yoNfkblt74.7-34.0The [facility] HospitalComment on above:Performed By: #### CRP, CMP #### [facility] [address] [place] [address] Dr. Sung Viramontes (RBC) [Mass/Vol]31.2 g/cMRhvslp00.9-35.2The [facility] HospitalComment on above:Performed By: #### CRP, CMP #### [facility] [address] [place] [address] Dr. Sung Weaver (RBC) [Entitic vol]87.7 pJCogkku89.0-99.0The [facility] HospitalComment on above:Performed By: #### CRP, CMP #### [facility] [address] [place] [address] Dr. Sung Elizondo #0.1 103/ulCritically low0.3-0.8The [facility] HospitalComment on above:Performed By: #### CRP, CMP #### [facility] [address] [place] [address] Dr. Sung Maneocytes/100 WBC (Bld)2.1 %Normal1.7-12.0The [facility] Comment on above:Performed By: #### CRP, CMP #### [facility] [address] [place] [address] Dr. Sung Reyes #2.8 103/ulNormal1.4-6.5The [facility] HospitalComment on above:Performed By: #### CRP, CMP #### [facility] [address] [place] [address] Dr. Sung Multaniutrophils/100 WBC (Bld)73.6 %Cvecjl29.0-75.0The [facility] HospitalComment on above:Performed By: #### CRP, CMP #### [facility] [address] [place] [address] Dr. Sung Campoverde mean volume (Bld) [Entitic vol]9.4 fLCritically low 9.5-13.5The [facility] HospitalComment on above:Performed By: #### CRP, CMP #### [facility] [address] [place] [address] Dr. Sung MoorePLT216 103/ddNlfrku105-423Ofe [facility] on above: Performed By: #### CRP, CMP #### [facility] [address] [place] [address] Dr. Sung MooreRBC3.25 106/ulCritically low4.20-5.40The [facility] HospitalComment on above:Performed By: #### CRP, CMP #### [facility] [address] [place] [address] Dr. Sung MooreWBC3.7 103/ulCritically low4.0-11.0The [facility] HospitalComment on above:Performed By: #### CRP, CMP #### [facility] [address] [place] [address] Dr. Sung MoorePROF 14(COMP METB)on 07-40-5130Xwirqer [Mass/Vol]2.4 g/dL Critically low3.4-5.0The [facility] HospitalComment on above:Performed By: #### CMP, BNP #### [facility] [address] [place] [address] Dr. Sung MooreAlbumin/Globulin [Mass ratio]0.5 {ratio}NormalThe [facility] HospitalComasp[facility] on above:Performed By: #### CMP, BNP #### [facility] [address] [place] [address] Dr. Sung Wilhelm [Catalytic activity/Vol]87 U/AShxgxh31-013Ukd [facility]Com[facility] on above:Performed By: #### CMP, BNP #### [facility] [address] [place] [address] Dr. Sung Ivy [Catalytic activity/Vol]19 U/ZMyarnl08-82Hbu [facility] on above:Performed By: #### CMP, BNP #### [facility] [address] [place] [address] Dr. Sung Armstrong gap [Moles/Vol]9.2 mmol/LNormalThe [facility] HospitalComment on above:Performed By: #### CMP, BNP #### [facility] [address] [address] [address] Sung MooreAST [Catalytic activity/Vol]20 U/GSquwyn65-19Xyx [facility] HospitalComment on above:Performed By: #### CMP, BNP #### [facility] [address] [address] [address] Sung MooreBilirubin [Mass/Vol]0.2 mg/dLNormal0.2-1.0The [facility] Comment on above:Performed By: #### CMP, BNP #### [facility] [address] [address] [address] Sung MooreCalcium [Mass/Vol]8.5 mg/dLNormal8.5-10.1The [facility] Comment on above:Performed By: #### CMP, BNP #### [facility] [address] [address] [address] Sung oMoreChloride [Moles/Vol]106 mmol/YBrrleh94-859Bcn [facility] Comment on above:Performed By: #### CMP, BNP #### [facility] [address] [address] [address] Sung MooreCO2 [Moles/Vol]23.1 mmol/IQvwexl27.0-32.0The [facility] Comment on above:Performed By: #### CMP, BNP #### [facility] [address] [address] [address] Sung MooreCreatinine [Mass/Vol]0.88 mg/dLNormal0.55-1.02The [facility] HospitalComment on above:Performed By: #### CMP, BNP #### [facility] [address] [address] [address] Sung HuttonGFR-AF ROMANIAN>60Normal>=60The [facility] HospitalComment on above:Performed By: #### CMP, BNP #### [facility] [address] [place] [address] Dr. Sung HuttonGFR-NON AF ROMANIAN>60Normal>=60The [facility] HospitalComment on above:Performed By: #### CMP, BNP #### [facility] [address] [address] [address] Sung MooreGlobulin (S) [Mass/Vol]4.8 g/dLNormSamaritan North Health CenterComment on above:Performed By: #### CMP, BNP #### [facility] [address] [place] [address] Dr. Sung MooreGlucose [Mass/Vol]153 mg/dLCritically esps78-913Gdo [facility] HospitalComment on above:Performed By: #### CMP, BNP #### [facility] [address] [place] [address] Dr. Sung MoorePotassium [Moles/Vol]3.3 mmol/LCritically low3.5-5.1The [facility] HospitalComment on above:Performed By: #### CMP, BNP #### [facility] [address] [place] [address] Dr. Sung MooreProtein [Mass/Vol]7.2 g/dLNormal6.4-8.2The [facility] Comment on above:Performed By: #### CMP, BNP #### [facility] [address] [place] [address] Dr. Sung MooreSodium [Moles/Vol]135 mmol/LCritically kpx077-922Pps [facility]ion HospitalComment on above:Performed By: #### CMP, BNP #### [facility] [address] [place] [address] Dr. Sung MooreUrea nitrogen [Mass/Vol]16.0 mg/dLNormal7.0-18.0The [facility]ion HospitalComment on above:Performed By: #### CMP, BNP #### [facility] [address] [place] [address] Dr. Sung Hayes nitrogen/Creatinine [Mass ratio]18.2 mg/mgNoCleveland Clinic South Pointe HospitalComment on above:Performed By: #### CMP, BNP #### [facility] [address] [place] [address] Dr. Sung Jasso AUTO DIFFon [id number] #0.0 103/ulNormal0.0-0.1The [facility]ion HospitalComment on above:Performed By: #### CRP, CMP #### [facility] [address] [place] [address] Dr. Sung MooreBasophils/100 WBC (Bld)0.2 %Normal0.2-2.0The [facility] Comment on above:Performed By: #### CRP, CMP #### [facility] [address] [place] [address] Dr. Sung Morrow #0.0 103/ulNormal0.0-0.7The [facility] HospitalComment on above: Performed By: #### CRP, CMP #### [facility] [address] [place] [address] Dr. Sung Huttonosinophils/100 WBC (Bld)0.2 %Critically low0.9-7.0The [facility] HospitalComment on above:Performed By: #### CRP, CMP #### [facility] [address] [place] [address] Dr. Sung Huttonrythrocyte distribution width (RBC) [Ratio]15.2 %Critically high 11.0-15.0The [facility] Shawment on above:Performed By: #### CRP, CMP #### [facility] [address] [place] [address] Dr. Sung MooreHematocrit (Bld) [Volume fraction]30.0 %Critically low36.0-48.0 The [facility] HospitalComment on above:Performed By: #### CRP, CMP #### [facility] [address] [place] [address] Dr. Sung MooreHemoglobin (Bld) [Mass/Vol]9.7 g/dLCritically low12.0-16.0The [facility] Shawment on above:Performed By: #### CRP, CMP #### [facility] [address] [place] [address] Dr. Sung Nj #0.03 10e3/ulNormal0.00-0.03The [facility] HospitalComment on above:Performed By: #### CRP, CMP #### [facility] [address] [address] [address] Sung Nj %0.5 %Normal0.0-0.5The [facility] HospitalComment on above: Performed By: #### CRP, CMP #### [facility] [address] [place] [address] Dr. Sung Morse #1.3 103/ulNormal1.2-3.8The [facility] HospitalComment on above:Performed By: #### CRP, CMP #### [facility] [address] [place] [address] Dr. Sung Webbhocytes/100 WBC (Bld)20.3 %Critically low20.5-60.0The [facility] on above:Performed By: #### CRP, CMP #### [facility] [address] [place] [address] Dr. Sung MartinUAL DIFF REQNONormalThe [facility] HospitalComment on above: Performed By: #### CRP, CMP #### [facility] [address] [place] [address] Dr. Sung Napoles (RBC) [Entitic mass]27.8 vuWzvqkl04.7-34.0The [facility] on above:Performed By: #### CRP, CMP #### [facility] [address] [place] [address] Dr. Sung Viramontes (RBC) [Mass/Vol]32.3 g/oECnnvfm52.9-35.2The [facility] on above:Performed By: #### CRP, CMP #### [facility] [address] [place] [address] Dr. Sung Weaver (RBC) [Entitic vol]86.0 zAAqdjwv92.0-99.0The [facility] on above:Performed By: #### CRP, CMP #### [facility] [address] [place] [address] Dr. Sung Elizondo #0.6 103/ulNormal0.3-0.8The [facility] HospitalComment on above:Performed By: #### CRP, CMP #### [facility] [address] [place] [address] Dr. Sung Maneocytes/100 WBC (Bld)8.8 %Normal1.7-12.0The [facility] Comment on above:Performed By: #### CRP, CMP #### [facility] [address] [place] [address] Dr. Sung Reyes #4.6 103/ulNormal1.4-6.5The [facility] HospitalComment on above:Performed By: #### CRP, CMP #### [facility] [address] [place] [address] Dr. Sung Multaniutrophils/100 WBC (Bld)70.0 %Vdzzet49.0-75.0The [facility] HospitalComment on above:Performed By: #### CRP, CMP #### [facility] [address] [place] [address] Dr. Sung MoorePlatelet mean volume (Bld) [Entitic vol]9.1 fLCritically low 9.5-13.5The [facility] HospitalComment on above:Performed By: #### CRP, CMP #### [facility] [address] [place] [address] Dr. Sung MoorePLT230 103/avYhhkpe223-368Zza [facility] HospitalComment on above: Performed By: #### CRP, CMP #### [facility] [address] [place] [address] Dr. Sung MooreRBC3.49 106/ulCritically low4.20-5.40The [facility] HospitalComment on above:Performed By: #### CRP, CMP #### [facility] [address] [place] [address] Dr. Sung MooreWBC6.6 103/ulNormal4.0-11.0The [facility] HospitalComment on above: Performed By: #### CRP, CMP #### [facility] [address] [place] [address] Dr. Sung MooreCT ABD/PELVIS WO CONon [id number] ABD/PELVIS WO CONEXAMINATION: CT ABD/PELVIS WO CON HISTORY: Low blood [...] Electronically authenticated by: DION SNOWDEN Date: 2021-11-10 15:[address] [place], [place] [address]CT STROKE HEAD WOon [id number] STROKE HEAD [facility] HEAD CT COMPARISON: None. CLINICAL HISTORY: Dizziness. 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 Hypodensity in the posterior limb of the left internal capsule measuring 8 x 6 mm compatible with prior lacunar infarct. Dense carotid calcifications. IMPRESSION: No acute intracranial hemorrhage. Chronic ischemic changes as documented. Electronically authenticated by: KAYLEY PHELAN Date: 2021-11-10 15:47[facility] CenterCULTURE BLOODon 37-13-3705Snlttckudvo examination of blood, cultureCulture Observations: NO GROWTH AT 5 DAYS. Isolate 1 _BA_[facility] HospitalComment on above:Performed By: #### CRP, CMP #### [facility] [address] [place] [address] Dr. Sung MooreMicroscopic examination of blood, cultureCulture Observations: NO GROWTH AT 5 DAYS. Isolate 1 _BA_[facility] HospitalComment on above:Performed By: #### CRP, CMP #### [facility] [address] [place] [address] Dr. Sung MooreCovid-19 PCR ([facility]VDBER[facility])on 25-58-8298FHVE-CoV-2 (COVID-19) RNA ROMY+probe Ql (Unsp spec)Not detectedNormalOhioHealth Grant Medical Center Comment on above:Result Comment: When diagnostic testing is negative, the [...] for this test is supported by the Burial Agent of Health and Human Service's declaration that circumstances exist to justify the emergency use of in vitro diagnostics for the detection and/or diagnosis of the virus that causes COVID-19. This EUA will remain in effect for the duration of the COVID-19 declaration justifying emergency of IVDs, unless it is terminated or revoked by the FDA (after which the test may no longer be used).Performed By: #### CMP, BNP #### [facility] [address] [place] [address] Dr. Sung Valentine URINE PROFILEon 01-09-0983Dbwtzxgkf Ql (U)NegativeNormal NEGATIVEMetrohealth Parma Medical CenterComment on above:Performed By: #### CRP, CMP #### [facility] [address] [place] [address] Dr. Sung MooreClarity (U)CLEARNormalCLEARMetrohealth Parma Medical CenterComment on above: Performed By: #### CRP, CMP #### [facility] [address] [place] [address] Dr. Sung Piper (U)LT. YELLOWNormalYELLOWMetrohealth Parma Medical CenterComment on above:Performed By: #### CRP, CMP #### [facility] [address] [place] [address] Dr. Sung Junior micrscopic examination will be performed if indicated. NormalMetrohealth Parma Medical CenterComment on above:Performed By: #### CRP, CMP #### [facility] [address] [place] [address] Dr. Sung MooreGlucose Ql (U)NegativeNormalNEGATIVEMetrohealth Parma Medical CenterComment on above:Performed By: #### CRP, CMP #### [facility] [address] [place] [address] Dr. Sung MooreHemoglobin Ql (U)NegativeNormalNEGATIVEOhiohealth Hardin Memorial Hospital on above:Performed By: #### CRP, CMP #### [facility] [address] [place] [address] Dr. Sung MooreKetones Ql (U)NegativeNormalNEGATIVEMetrohealth Parma Medical CenterComment on above:Performed By: #### CRP, CMP #### [facility] [address] [place] [address] Dr. Sung MooreLEUKOCYTESLARGEAbnormalNEGATIVEThe [facility] HospitalComment on above:Performed By: #### CRP, CMP #### [facility] [address] [place] [address] Dr. Sung Farfan Ql (U)PositiveAbrmalNEGATIVEMetrohealth Parma Medical Center Comment on above:Performed By: #### CRP, CMP #### [facility] [address] [place] [address] Dr. Sung MoorepH (U)6.0 [pH]Normal5-9The [facility] HospitalComment on above: Performed By: #### CRP, CMP #### [facility] [address] [place] [address] Dr. Sung MooreSPEC GRAVITY1.362Kmvqtu6.005-<=1.025The [facility] HospitalComment on above:Performed By: #### CRP, CMP #### [facility] [address] [place] [address] Dr. Sung Mullen PROTEINNegativeNormalNEGATIVE/ TRACEMetrohealth Parma Medical Center Comment on above:Performed By: #### CRP, CMP #### [facility] [address] [place] [address] Dr. Sung Meneses MICRO INDINDICATEDNormalThAdena Pike Medical CenterComment on above: Performed By: #### CRP, CMP #### [facility] [address] [place] [address] Dr. Sung Cotabilinogen Qn (U)0.2 {David'U}/dLNormal0.2 - 1.0The [facility] HospitalComment on above:Performed By: #### CRP, CMP #### [facility] [address] [place] [address] Dr. Sung MooreLACTATE/LACTIC ACIDon 47-64-3498Xboyelw [Moles/Vol]1.1 mmol/L Normal0.4-1.9The [facility] HospitalComment on above:Performed By: #### CRP, CMP #### [facility] [address] [place] [address] Dr. Sung Winklerctate [Moles/Vol]1.9 mmol/LNormal0.4-1.9The [facility] Comment on above:Performed By: #### CMP, BNP #### [facility] [address] [place] [address] Dr. Sung Casillas 14(COMP METB)on 68-93-1520Vwcduve [Mass/Vol]2.9 g/dL Critically low3.4-5.0The [facility] HospitalComment on above:Performed By: #### LACT #### [facility] [address] [place] [address] Dr. Sung MooreAlbumin/Globulin [Mass ratio]0.6 {ratio}NormalThe [facility] HospitalComment on above:Performed By: #### LACT #### [facility] [address] [place] [address] Dr. Sung ArnettP [Catalytic activity/Vol]101 U/YKbfvgu92-896Vqp [facility] HospitalComment on above:Performed By: #### LACT #### [facility] [address] [place] [address] Dr. Sung Ivy [Catalytic activity/Vol]21 U/FRearsu04-07Gou [facility] HospitalComment on above:Performed By: #### LACT #### [facility] [address] [place] [address] Dr. Sung Armstrong gap [Moles/Vol]14.6 mmol/LNormalThe [facility] Comment on above:Performed By: #### LACT #### [facility] [address] [place] [address] Dr. Sung MooreAST [Catalytic activity/Vol]19 U/CSmnvyt50-69Byf [facility] HospitalComment on above:Performed By: #### LACT #### [facility] [address] [place] [address] Dr. Sung MooreBilirubin [Mass/Vol]0.7 mg/dLNormal0.2-1.0The [facility] Comment on above:Performed By: #### LACT #### [facility] [address] [place] [address] Dr. Sung MooreCalcium [Mass/Vol]8.4 mg/dLCritically low8.5-10.1The [facility] HospitalComment on above:Performed By: #### LACT #### [facility] [address] [address] [address] Sung MooreChloride [Moles/Vol]94 mmol/LCritically pxk69-988Pag [facility] HospitalComment on above:Performed By: #### LACT #### [facility] [address] [address] [address] Sung MooreCO2 [Moles/Vol]22.9 mmol/MRwncbr23.0-32.0The [facility] Comment on above:Performed By: #### LACT #### [facility] [address] [place] [address] Dr. Sung MooreCreatinine [Mass/Vol]1.40 mg/dLCritically high0.55-1.02The [facility] HospitalComment on above:Performed By: #### LACT #### [facility] [address] [place] [address] Dr. Sung HuttonGFR-AF NLUWTSRE50 mL/min/1.26b0Rpnntpwyoc low>=60The [facility] HospitalComment on above:Performed By: #### LACT #### [facility] [address] [place] [address] Dr. Sung HuttonGFR-NON AF DILTCWBS77 mL/min/1.41v2Bouqkvodco low>=60The [facility] HospitalComment on above:Performed By: #### LACT #### [facility] [address] [place] [address] Dr. Sung MooreGlobulin (S) [Mass/Vol]4.9 g/dLNormalThe [facility] HospitalComment on above:Performed By: #### LACT #### [facility] [address] [address] [address] Sung MooreGlucose [Mass/Vol]150 mg/dLCritically vmal67-344Vaw [facility] HospitalComment on above:Performed By: #### LACT #### [facility] [address] [address] [address] Sung MoorePotassium [Moles/Vol]3.5 mmol/LNormal3.5-5.1The [facility] Comment on above:Performed By: #### LACT #### [facility] [address] [address] [address] Sung MooreProtein [Mass/Vol]7.8 g/dLNormal6.4-8.2The [facility] Comment on above:Performed By: #### LACT #### [facility] [address] [address] [address] Sung MooreSodium [Moles/Vol]128 mmol/LCritically xkp288-561Eon [facility] HospitalComment on above:Performed By: #### LACT #### [facility] [address] [place] [address] Dr. Sung MooreUrea nitrogen [Mass/Vol]21.0 mg/dLCritically high7.0-18.0The [facility] HospitalComment on above:Performed By: #### LACT #### [facility] [address] [place] [address] Dr. Sung Hayes nitrogen/Creatinine [Mass ratio]15.0 mg/mgNoCleveland Clinic South Pointe HospitalComment on above:Performed By: #### LACT #### [facility] [address] [place] [address] Dr. Sung MoorePROTIMEstefany 54-20-4542WWT Coag (PPP) [Relative time]1.16 {INR} NormalThe [facility] HospitalComment on above:Performed By: #### CRP, CMP #### [facility] [address] [place] [address] Dr. Sung Bonner GUIDELINESSEE BELOWDiley Ridge Medical CenterComment on above:Result Comment: DESIRED INR: 2.0 - 3.0 CONDITIONS NOT LISTED BELOW 2.5 - 3.5 FOR PROSTHETIC HEART VALVE REPLACEMENT 2.5 - 3.5 RECURRENT THROMBOSIS Performed By: #### CRP, CMP #### [facility] [address] [place] [address] Dr. Sung MoorePT Coag (PPP) [Time]12.4 sCritically high9.0-11.6The [facility] HospitalComment on above:Performed By: #### CRP, CMP #### [facility] [address] [place] [address] Dr. Sung Sinclair 87-77-9571zGJK Coag (Bld) [Time]32.9 zXtzuxd01.3-36.2The [facility] HospitalComment on above:Performed By: #### CRP, CMP #### [facility] [address] [place] [address] Dr. Sung Duque, HIGH SENSITIVITYon 63-92-8883XBAUKJ19.1 pg/mLNormal 4.0-51.3The [facility] HospitalComment on above:Result Comment: CUT-OFF POINTS HAVE BEEN ESTABLISHED BASED ON THE FOURTH UNIVERSAL DEFINITIONS OF MYOCARDIAL INFARCTION. THE UPPER REFERENCE LIMIT (URL) OF TROPONIN, DEFINED THE 99TH PERCENTILE OF cTnI DISTRIBUTION IN A REFERENCE POPULATION, HAS BEEN CONFIRMED THE DECISION THRESHOLD FOR [place] DIAGNOSIS.Performed By: #### LACT #### [facility] [address] [place] [address] Dr. Sung Oliver 26-69-9918ZEW0.207 uIU/mLNormal0.358-3.740The [facility] HospitalComment on above:Performed By: #### CMP, BNP #### [facility] [address] [place] [address] Dr. Sung Zaman RANGESEE BELOWNoCleveland Clinic South Pointe HospitalComment on above: Result Comment: <0.34 UIU/ml HYPERTHYROID 0.34-5.60 UIU/ml EUTHYROID >5.60 UIU/ml HYPOTHYROIDPerformed By: #### CMP, BNP #### [facility] [address] [place] [address] Dr. Sung DOWLINGon 52-04-8256CISBKOQNXNPCIUJZRfsivlknFBLR SEENThe [facility] HospitalComment on above:Performed By: #### CRP, CMP #### [facility] [address] [place] [address] Dr. Sung Tsang identified Cx Nom (U)INDICATEDNormalThe [facility] HospitalComment on above:Performed By: #### CRP, CMP #### [facility] [address] [address] [address] Sung Garcia SEENNormalNONE SEENMetrohealth Parma Medical CenterComaspirus ironwood hospital on above:Performed By: #### CRP, CMP #### [facility] [address] [address] [address] Sung Cueva LM Nom (Urine sed)NONE SEENNormalNONE SEENThe [facility] HospitalComaspirus ironwood hospital on above:Performed By: #### CRP, CMP #### [facility] [address] [address] [address] Sung Jonesthelial cells LM Ql (Urine sed)RARENormalNONE SEEN /RAREMetrohealth Parma Medical CenterComaspirus ironwood hospital on above:Performed By: #### CRP, CMP #### [facility] [address] [place] [address] Dr. Sung CannonCOUSMINESH SEENNormalNONE SEENSouthwest General Health Center on above:Performed By: #### CRP, CMP #### [facility] [address] [address] [address] Sung Phoenix SEENAbnormal0-2[facility] on above: Performed By: #### CRP, CMP #### [facility] [address] [place] [address] Dr. Sung MooreUlddqNYC31-68IflkqgnkAJCI SEENSouthwest General Health Center on above: Performed By: #### CRP, CMP #### [facility] [address] [place] [address] Dr. Sung MooreXR CHEST 1 Von 76-99-2701AK CHEST 1 VEXAMINATION: XR CHEST 1 V HISTORY: Dizziness COMPARISON: XR chest [...] Electronically authenticated by: DION SNOWDEN Date: 2021-11-10 15:26[facility] Medical CenterGlucose Glucometer (BldC) [Mass/Vol]Ordered By: Bonnie Hendricks on 51-30-6820Liignmc [Mass/Vol]127 mg/dLProvidence HospitalComment on above:Random Glucose Reference Range is dependent on time and content of last meal. Glucose of more than 200 mg/dL in a nonstressed, ambulatory subject supports the diagnosis of Diabetes Mellitus.Activated partial thromboplastin time (aPTT) in platelet poor plasma by coagulation aOrdered By: Bonnie Hendricks on 43-80-2198kGIC Coag (PPP) [Time]31.5 s25.1-36.5FCleveland [facility] Basophils Auto (Bld) [#/Vol]Ordered By: Bonnie Hendricks on 79-89-6246Zwupslxsn (Bld) [#/Vol]0.0 10*3/uL0.0-0.2FCleveland Clinic [facility] GeneralBasophils/100 WBC Auto (Bld)Ordered By: Bonnie Hendricks on 56-11-9353Ktrtywygt/100 WBC (Bld)0.3 %.[facility] HospitalBlood hemoglobin measurement (mass/volume)Ordered By: Bonnie Hendricks on 79-96-4554Simwdkyhnr (Bld) [Mass/Vol]10.4 g/dL11.8-15.4FCleveland Clinic Akron GeneralBlood leukocytes automated count (number/volume)Ordered By: Bonnie Hendricks on 95-06-2228TAS (Bld) [#/Vol]6.3 10*3/uL4.5-11.0Providence HospitalBody fluid albumin measurement (mass/volume)Ordered By: Bonnie Hendricks on 81-13-8514Xnxrnbt (Body fld) [Mass/Vol]3.4 g/dL3.2-5.5FCleveland Clinic [facility] GeneralCreatinine and Glomerular filtration rate.predicted panel (S/P/Bld)Ordered By: Bonnie Hendricks on 25-75-9700Ymkgeqoubr [Mass/Vol]0.81 mg/dL 0.44-1.03Providence HospitalEosinophils Auto (Bld) [#/Vol]Ordered By: Bonnie Hendricks on 83-47-8383Dxnenpmxvom (Bld) [#/Vol]0.2 10*3/uL0.0-0.45Providence HospitalEosinophils/100 WBC Auto (Bld)Ordered By: Bonnie Hendricks on 57-36-5784Ebrovyxusra/100 WBC (Bld)3.5 %.[facility] Erythrocyte distribution width Auto (RBC) [Ratio]Ordered By: Bonnie Hendricks on 74-02-1431Beuyoqvsyqq distribution width (RBC) [Ratio]16.5 %11.9-15.3FCleveland Clinic Akron GeneralEstimated glomerular filtration rate (GFR) non- AmericanOrdered By: Bonnie Hendricks on 92-72-0144HMW/1.73 sq M.predicted among non- blacks MDRD (S/P/Bld) [Vol rate/Area]> 60 mL/MinProvidence HospitalGlobulin Calc (S) [Mass/Vol]Ordered By: Bonnie Hendricks on 34-12-1063Ihwgdwpq (S) [Mass/Vol]4.6 g/dLProvidence HospitalHematocrit Auto (Bld) [Volume fraction]Ordered By: Bonnie Hendricks on 76-94-6964Vbavlnwgyh (Bld) [Volume fraction]31.6 %34.0-46.4FCleveland Clinic Akron GeneralLaboratory - CoagulationOrdered By: Bonnie Hendricks on 82-08-1883BJ Coag (PPP) [Time]14.0 sHigh 9.0-12.9[facility]Labor[facility] - Hematology and Cell counts Ordered By: Bonnie Hendricks on 77-45-3941Vkqwmouqy RBC/100 WBC (Bld) [Ratio]0.0 %0-0.5 [facility] HospitalLactate dehydrogenase measurement (enzymatic activity/volume)Ordered By: Bonnie Hendricks on 25-03-1695PHB (Unsp spec) [Catalytic activity/Vol]133 U/Z75-262UbkcjqgtyProvidence HospitalLymphocytes Auto (Bld) [#/Vol]Ordered By: Bonnie Hendricks on 79-23-2927Pwztephpkag (Bld) [#/Vol]1.4 10*3/uL1.00-4.8Providence HospitalLymphocytes/100 WBC Auto (Bld) Ordered By: Bonnie Hendricks on 67-11-4670Fypcvzdzvcw/100 WBC (Bld)22.9 %.[facility] HospitalH Auto (RBC) [Entitic mass]Ordered By: Bonnie Hendricks on 86-92-7003CEE (RBC) [Entitic mass]28.2 pg24.7-34.3FCleveland Clinic Akron GeneralMCHC Auto (RBC) [Mass/Vol]Ordered By: Bonnie Hendricks on 16-30-5829EFSI (RBC) [Mass/Vol]32.8 g/dL32.0-35.0Providence HospitalMCV Auto (RBC) [Entitic vol]Ordered By: Bonnie Hendricks on 60-17-7468OWM (RBC) [Entitic vol]85.8 fL 80-100Providence HospitalMonocytes Auto (Bld) [#/Vol]Ordered By: Bonnie Hendricks on 11-56-1495Lplovkuft (Bld) [#/Vol]0.4 10*3/uL0.0-0.8Providence HospitalMonocytes/100 WBC Auto (Bld)Ordered By: Bonnie Hendricks on 08-73-1125Kxxkfdsli/100 WBC (Bld)6.3 %.[facility] Neutrophils Auto (Bld) [#/Vol]Ordered By: Bonnie Hendricks on 82-25-2467Kfwbhulqhif (Bld) [#/Vol]4.2 10*3/uL1.8-7.7FCleveland Clinic Akron GeneralNeutrophils/100 WBC Auto (Bld)Ordered By: Bonnie Hendricks on 09-50-4733Sbjkxzlbmvp/100 WBC (Bld)67.0 % .Providence HospitalNo Panel InformationOrdered By: Bonnie Hendricks on 31-84-6117Dkjxcnfxa GFR ()> 60 mL/MinProvidence HospitalComment on above:GFR estimated reference range: According to KDOQI guidelines, <60 ml/min/1.73m2 is sufficient todiagnose a patient with chronic kidney disease.Pharmacy Creatinine Clearance (ChemN/AFCleveland Clinic Akron GeneralPlatelet mean volume Auto (Bld) [Entitic vol]Ordered By: Bonnie Hendricks on 65-94-0500Vfcgzgyu mean volume (Bld) [Entitic vol]7.1 fL6.3-10.7FCleveland Clinic Akron GeneralPlatelet poor plasma international normalized ratio (INR) by coagulation assay (relatOrdered By: Bonnie Hendricks on 40-68-6218XWW Coag (PPP) [Relative time]1.2 {INR}Providence HospitalComment on above:INR Therapeutic Range A) Pre- and Peroperative OAT started two weeks before surgery. NOT HIP SURGERY: 1.5 - 2.5 HIP SURGERY: 2 - 3 B) Primary and secondary prevention of venous THROMBOSIS: 2 - 3 C) Active venous thrombosis, pulmonary embolism and prevention of recurrent venous thrombosis: 2 - 3 D) Prevention of arterial thromboembolism including patients with mechanical heart valves: 3 - 4.5INR Therapeutic Range A) Pre- and Peroperative OAT started two weeks before surgery. NOT HIP SURGERY: 1.5 - 2.5 HIP SURGERY: 2 - 3B) Primary and secondary prevention of venous THROMBOSIS: 2 - 3C) Active venous thrombosis, pulmonary embolismand prevention of recurrent venous thrombosis: 2 - 3D) Prevention of arterial thromboembolismincluding patients with mechanical heart valves: 3 - 4.5Platelets Auto (Bld) [#/Vol]Ordered By: Bonnie Hendricks on 43-67-3993Erqqicjzm (Bld) [#/Vol]370 10*3/mA938-582YuxxamqjeProvidence HospitalProtein [Mass/volume] in Serum or PlasmaOrdered By: Bonnie Hendricks on 03-09-9776Zclzqip [Mass/Vol]8.0 g/dL6.1-7.9 [facility] HospitalRBC Auto (Bld) [#/Vol]Ordered By: Bonnie Hendricks on 91-65-2492GNV (Bld) [#/Vol]3.68 10*6/uL3.60-5.00[facility] Northerum or plasma alanine aminotransferase measurement without P-5'-P (enzymatic activiOrdered By: Bonnie Hendricks on 90-39-5559YQI No additional P-5'-P [Catalytic activity/Vol]13 U/V15-55IgpopldzoPremier Health Miami [facility] Hospital Northerum or plasma albumin/globulin mass ratioOrdered By: Bonnie Hendricks on 10-12-2021 Albumin/Globulin [Mass ratio]0.7 {ratio}[facility] Northerum or plasma alkaline phosphatase measurement (enzymatic activity/volume)Ordered By: Bonnie Hendricks on 17-59-7111EOP [Catalytic activity/Vol]94 U/S57-32OabmjnblyPremier Health [facility] Hospital Northerum or plasma aspartate aminotransferase measurement (enzymatic activity/volume)Ordered By: Bonnie Hendricks on 17-70-0459LDE [Catalytic activity/Vol]18 U/B30-05UsyeavgfgPremier Health [facility] Northerum or plasma calcium measurement (mass/volume)Ordered By: Bonnie Hendricks on 37-48-3887Hylfpgj [Mass/Vol] 9.6 mg/dL8.2-10.2FCleveland Clinic Fairview Hospitalerum or plasma cancer antigen 125 (CA-125) measurement (units/volume)Ordered By: Bonnie Hendricks on 10-12-2021 Cancer Ag 125 Qn23.7 [arb'U]/mL0.0-38.1FCleveland Clinic Akron GeneralComment on above:[facility] [employer] Electrochemiluminescence Immunoassay (ECLIA) Values obtained with different assay methods or kits cannot be used interchangeably. Results cannot be interpreted as absolute evidence of the presence or absence of malignant disease. Performed at: [address] [id number] [employer] Operator: Adrian Coello PhD, Phone: [phone] or plasma chloride measurement (moles/volume)Ordered By: Bonnie Hendricks on 91-45-1430Xsydqylg [Moles/Vol]101 mmol/B90-127CuyfrkemlPremier Health [facility] Hospital Northerum or plasma glucose measurement (mass/volume)Ordered By: Bonnie Hendricks on 58-50-3011Yxivfvp [Mass/Vol]126 mg/vN32-613RoupnyvwqProvidence HospitalComment on above:ADA recommended reference range Random Glucose Reference Range is dependent on time and content of last meal. Glucose of more than 200 mg/dL in a nonstressed, ambulatory subject supports the diagnosis of Diabetes Mellitus.Serum or plasma potassium measurement (moles/volume)Ordered By: Bonnie Hendricks on 36-14-8851Yfiiuenkl [Moles/Vol]4.3 mmol/L 3.5-5.1FCleveland Clinic Fairview Hospitalerum or plasma sodium measurement (moles/volume)Ordered By: Bonnie Hendricks on 54-03-5208Hihqee [Moles/Vol]136 mmol/L 136-146[facility] Northerum or plasma total bilirubin measurement (mass/volume)Ordered By: Bonnie Hendricks on 33-67-6370Ldlrxqdzp [Mass/Vol] 0.9 mg/dL0.3-1.2FCleveland Clinic Fairview Hospitalerum or plasma total carbon dioxide measurement (moles/volume)Ordered By: Bonnie Hendricks on 29-47-0339IA7 [Moles/Vol]24.7 mmol/L22.0-30.0[facility] Northerum or plasma urea nitrogen measurement (mass/volume)Ordered By: Bonnie Hendricks on 18-15-0865Ykef nitrogen [Mass/Vol]10 mg/dL9-23Providence HospitalC Urineon 33-27-4367Hznedbej identified Cx Nom (U)Microbiology PROCEDURE: Urine Culture [R1] SOURCE: U Random BODY SITE: COLLECTED DATE/TIME: 08/24/2021 11:14 EST RECEIVED DATE/TIME: 08/24/2021 13:38 EST START DATE/TIME: 08/24/2021 13:38 EST FREE TEXT SOURCE: ESTELLA JOHNSON, Jose LEWIS MD, Jose Eugene FINAL REPORTS Final Report [...] Locations R1: This test was performed at: [facility], [address] [place] [address], [address]- , , YizsqvFhjrkiOhio State Harding HospitalComment on above:Performed By: #### [id number] ####[address] [address]Mqcqed Summary.on 87-54-0210Rwypma Summary. CD:[id number] ME8SMfcM7BfjkTv [file] bGxh (more content not included)...NormalSuburban Community Hospital & Brentwood HospitalFormson [id number]#1.00CD:127NormalUnc Hospitals Hillsborough Campusayush Medstar Good Samaritan HospitalAmbulatory Visit Summaryon 83-05-6185Qbpdbwzgfi Visit Summary SABI SANTAMARIA :1945 Visit Date:08/24/2021 Ambulatory Visit Instructions Your Diagnosis Gross hematuria UTI (urinary tract infection) Tests Performed Urnls Dip Stick Auto w/o Microscopy POC 78248 Your Care Team Attending Physician - Jose LEWIS MD Primary Care Physician - Merrill Bledsoe MD This Is Your Medications List cephalexin [...] CECIL Acevedo When: Only if needed Where: [address] [place] [address] [place] [address]- Medications What How Much When Instructions New cephalexin (Keflex 250 mg Cap) 1 Capsules By Mouth Every 6 hours Duration: 5 Days Pickup at [facility]/pharmacy #[id number] Unchanged acetaminophen (acetaminophen 500 mg Tab) Oral Contact prescribing physician if questions or concerns Unchanged acetaminophen-oxycodone (Percocet 325 mg-5 mg Tab) See instructions 1- 2 tab(s) Oral q4hr Contact prescribing physician if questions or concerns Unchanged acetaminophen-oxycodone (Percocet 325 mg-5 mg Tab) See instructions 1- 2 tab(s) Oral q4hr Contact prescribing physician if [...] physician if questions or concerns Pharmacy Information [facility]/pharmacy #[id number]: [address], [place] [id number] [phone] Test Results Urnls Dip Stick Auto w/o Microscopy POC 46826 (08/24/2021) Bilirubin Urine Dipstick - Negative Blood Urine Dipstick - Trace-intact Glucose Urine Dipstick - Negative Ketones Urine Dipstick - Negative Leukocytes Urine Dipstick - 3+ Large Nitrite Urine Dipst (more content not included)...[facility] Harding HospitalPatient Educationon 02-46-1492Cstnxhk EducationNutrition BMI for Adults Body mass index (BMI) [...] problems. It is used to check whether aperson is obese, overweight, healthy weight, or underweight. How is BMI calculated? BMI measures your weight and compares it to your height. This can be done either in [place]an (U.S[place] or metric measurements. Note that charts are available to help you find your BMI quickly and easily without having to do these calculations yourself. To calculate your BMI in [place]an ([place] measurements, your health care provider will: [...] meters squared number. In this example: 70 ?3.1 = 22.6. This is your BMI. How [...] a medical condition, or that may increase therisk for medical problems. ? Promoting lifestyle and [...] problems. ? BMI can be measured using Singaporean measurements or metric measurements. ? To interpret [...] 02/13/2005 Document Revised: 05/17/2018 Document Reviewed: 04/17/2018 [employer] Patient Education ? 2019 [employer]. Urology Hematuria, Adult Hematuria is blood in the urine. Blood may be visible in the urine, or it may be identified with a test. This condition can be caused by infections of the bladder, urethra, kidney, or prostate. Otherpossible causes include: ? Kidney stones. ? Cancer [...] blood in your urine, even if it ispainless or the blood stops without treatment. Blood in the urine, when it happens and then stops and then happens again, can be a symptom of a very serious condition, including cancer. There is no pain in the initial stages of many urinary cancers. Follow these instructions at home: Medicines ? Take qyty-hjt-soamhho and pres (more content not included)...[facility] 10-17-1194Aptwmqmef From: Muna Diaz MA To: EU - Clinical; Sent: 08/24/2021 11:15:25 EST Show up: 08/26/2021 11:15:00 EST Subject: urine culture Reminder/Recall [facility] [place] [facility] cultureNormalFisher Medstar [facility]aritan HospitalUrology Office/Clinic Noteon 28-80-2369Rxctnyp Office/Clinic NoteChief Complaint New Pt. F/U to Cysto done 04/2021 HPI Staff This is a 76 year old New Pt. here for F/U to Cysto done 04/20/21. Urology consult 04/20/21. Renal USdone 11/3/21. Pain with urination:Occasionally Blood in urine:UA shows [...] information and history for this patient from [facility] Admission I have reviewed and verified the [...] Patient seen for consult. Patient admitted to [facility] on 04/20/21 post CVA and hip fracture. [...] her daughter today. 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 As noted above she has [...] Jose Eugene, URL Only if needed [address] [place] [address]- Additional Instructions: Patient Education BMI for Adults Hematuria, Adult I, Ashley Cotton, personally scribed for Dr. Lewis on 08/24/2021 11:01:25. . Documentation recorded by the scribAshley ash, accurately reflects the services(s) I performed and decisions made by me. Authenticated by Dr. Lewis on 08/24/2021 11:08:30. Problem List/Past Medical History [...] (as calcium citrate) 20 (more content not included)...[facility] Harding HospitalComment on above:Result Comment: Electronically Signed By: Jose LEWIS MD\.br\Date and Time Signed: 08/24/21 11:09 EST\.br\Electronically Co-Signed By: Ashley Cotton MA\.br\Date and Time Co-Signed: 08/24/21 11:01 ESTXR hip RT min 2V(w/wo pelvis)*on 23-23-8427ZE hip RT min 2V(w/wo pelvis)*[facility]act[facility] Other XR hip RT min 2V(w/wo pelvis)*[facility]actus Other XR hip RT min 2V(w/wo pelvis)*[facility] Hactus Other XR hip RT min 2V(w/wo pelvis)*[place] [address]Zbfrk Hactus Other XR hip RT min 2V(w/wo pelvis)*XRay ReportAxtell Hactus Other XR hip RT min 2V(w/wo pelvis)*SignedAxtell Hact[employer] Other XR hip RT min 2V(w/wo pelvis)*Patient: Sabi Santamaria MR#: [id number] [employer] Other XR hip RT min 2V(w/wo pelvis)*[address]KoxerYappe Other XR hip RT min 2V(w/wo pelvis)*: 1945 Acct:[id number] Other XR hip RT min 2V(w/wo pelvis)*Age/Sex: 76 / F ADM Date: [facility]/29/21[facility]True[facility] Other XR hip RT min 2V(w/wo pelvis)*Loc: SOXD Room: Type: [facility]LEBah[facility] Other XR hip RT min 2V(w/wo pelvis)*Attending Dr: Getachew Escalante Likez Other XR hip RT min 2V(w/wo pelvis)*Ordering Provider: Getachew Escalante Likez Other XR hip RT min 2V(w/wo pelvis)*Date of Service: 06/29/21[employer] Other XR hip RT min 2V(w/wo pelvis)* XR/XR hip RT min 2V(w/wo pelvis)*: Other specified postprocedural [facility] Hactus Other XR hip RT min 2V(w/wo pelvis)*Copies to: Getachew EscalanteZnode Other XR hip RT min 2V(w/wo pelvis)*XR hip RT min 2V(w/wo pelvis)* 06/29/2021 1:07 [facility]ENTERBah[facility] Other XR hip RT min 2V(w/wo pelvis)*SIGNS AND SYMPTOMS: Status post right total hip arthroplasty, follow-upAxtell Hactus Other XR hip RT min 2V(w/wo pelvis)*PROTOCOL: Frontal and frog-leg views of the right hipYappe Other XR hip RT min 2V(w/wo pelvis)*COMPARISON: 05/12/2021 [employer] Other XR hip RT min 2V(w/wo pelvis)*FINDINGS:[employer] Other XR hip RT min 2V(w/wo pelvis)*Hemiarthroplasty hardware is noted in the right hip without fracture or dislocation. Visualized [employer] Other XR hip RT min 2V(w/wo pelvis)*right hemipelvis is grossly intact. Surgical clips are noted in the right hemipelvis.[employer] Other XR hip RT min 2V(w/wo pelvis)* XR/XR hip RT min 2V(w/wo pelvis)*[employer] Other XR hip RT min 2V(w/wo pelvis)*IMPRESSION:[employer] Other XR hip RT min 2V(w/wo pelvis)*Hemiarthroplasty of right hip is redemonstrated without fracture, hardware complication, [facility]villeB[facility] Other XR hip RT min 2V(w/wo pelvis)*malalignment.[employer] Other XR hip RT min 2V(w/wo pelvis)*Impression dictated by: Carl Smith M.D.06/29/2021 1:54 [facility]ENTERBah[facility] Other XR hip RT min 2V(w/wo pelvis)*Dictation Location: TEDUQ-AO-16ZxoqbTruecaller Other XR hip RT min 2V(w/wo pelvis)*Transcribed By: PAMELA 06/29/21 [facility] CenterAuthentidate Holding Other XR hip RT min 2V(w/wo pelvis)*Dictated By: Carl Smith II, MD 06/29/21 [facility]Aut[facility] Other XR hip RT min 2V(w/wo pelvis)*Signed By:[employer] Other XR hip RT min 2V(w/wo pelvis)*06/29/21 [facility] CenterAuthentidate Holding Other Consultation Noteon 44-80-7868Syvfmifrauwl Note [id number]:[address] [place], [place] [address]Insurance Correspondence Officeon 26-81-9995Ehnisumyg Correspondence [id number]:[address] [place], [place] [address]Consultation Noteon 42-85-2381Sclhvlgiqmgt Note [id number]:[address] [place], [place] [address]Operative Reporton 77-44-9807Xexgnlweg Report [id number]:[address] [place], [place] [address]RAD - CT Reporton 50-25-9190JXE - CT Report [id number]#1.00CD:[address] [place], [place] [address]RAD - Ultrasound Reporton 39-22-2992BPL - Ultrasound Report [id number]#1.00CD:[address] [place] [address] Vital Signs Date TimeVital SignValuePerforming PxacbxpohBtrlvpcq67-46-0023 14:55-0400Body odhnqg585.56 cmMerrill Bledsoe MD Work Phone: [facility]07-16-2025 14:55-0400 Body mass index (BMI) [Ratio]22.3 kg/q6JbzltkgMerrill Bledsoe MD Work Phone: [facility]07-16-2025 14:55-0400 Body pweprkcmvfz80.4 [degF]Merrill Bledsoe MD Work Phone: [facility]07-16-2025 14:55-0400 Body dtamwy46.96 kgMerrill Bledsoe MD Work Phone: [facility]07-16-2025 14:55-0400 Diastolic blood zkafsbun28 mm[Hg]Merrill Bledsoe MD Work Phone: [facility]07-16-2025 14:55-0400 Heart rate0 /Dereje Bledsoe MD Work Phone: [facility]07-16-2025 14:55-0400 Respiratory rate16 /Dereje Bledsoe MD Work Phone: [facility]07-16-2025 14:55-0400 SaO2% (BldA) [Mass fraction]98 %Merrill Bledsoe MD Work Phone: [facility]07-16-2025 14:55-0400 Systolic blood ekkrfmuf332 mm[Hg]Merrill Bledsoe MD Work Phone: [phone]11-12-2024 16:12-0500 Body mass index (BMI) [Ratio]23.81 kg/d0Cuanrmateusz Leon CONFERENCE SERVICE COORDINATOR Work Phone: [phone])[phone] [place], [place] [address]Mowxzbinxc00-46-0509 16:12-0500Body kytwdq45.15 kgDebra Leon CONFERENCE SERVICE COORDINATOR Work Phone: [phone] [place], [place] [address]Ukekzwyduo35-55-5170 16:12-0500Diastolic blood upzyoput70 mm[Hg]Debra Leon CONFERENCE SERVICE COORDINATOR Work Phone: [phone] [place] [address]-12-2024 16:12-0500Heart rate67 /min Debra Leon CONFERENCE SERVICE COORDINATOR Work Phone: [phone] CenterOrrofqfeba23-95-7577 16:12-9218RbG8% (BldA) [Mass fraction]97 %Debra Leon CONFERENCE SERVICE COORDINATOR Work Phone: [phone] [place], [place] [address]Vylyoenctg73-32-4716 16:12-0500Systolic blood tqzvoyxc907 mm[Hg]Debra Leon CONFERENCE SERVICE COORDINATOR Work Phone: [phone]-[facility] [address] CenterHketgymhsb18-65-4043 16:45-0400Body qoelxg483.9 cmSsedrick Leon CONFERENCE SERVICE COORDINATOR Work Phone: [phone]-[facility] [address] [address]Owdapvdxir87-99-0420 16:45-0400Body mass index (BMI) [Ratio]23.92 kg/y9Nvscfmateusz Leon CONFERENCE SERVICE COORDINATOR Work Phone: [phone] [place] [address]-11-2024 16:45-0400Body .42 kgDebra Leon CONFERENCE SERVICE COORDINATOR Work Phone: [facility] CenterLvmsfcyebw63-33-1577 16:45-0400Diastolic blood atysxutw86 mm[Hg]Debra Leon CONFERENCE SERVICE COORDINATOR Work Phone: NOHeartland Behavioral Health ServicesUcidexhfcx85-85-7296 16:45-0400Systolic blood guaizarq506 mm[Hg]Debra Leon CONFERENCE SERVICE COORDINATOR Work Phone: [facility] CenterWdhjldaeen37-79-7669 15:07-0400Body lojfgb336.56 cmMD Merrill Hoy Work Phone: [phone] [place], [place] 8333406-27-2024 15:07-0400 Body mass index (BMI) [Ratio]22.1 kg/m2MD Merrill Hoy Work Phone: [phone] [place], [place] 8333406-27-2024 15:07-0400 Body nncfyhedidb47.5 [degF]MD Merrill Bledsoe Work Phone: [phone] [place], [place] 8333406-27-2024 15:07-0400 Body ahxmjo02.51 kgMD Merrill Hoy Work Phone: [phone] [place], [place] 8333406-27-2024 15:07-0400 Diastolic blood thuhrkmk35 mm[Hg]MD Merrill Bledsoe Work Phone: [phone] [place], [place] 8333406-27-2024 15:07-0400 Heart rate65 /minMD Merrill Bledsoe Work Phone: [phone] [place], [place] 8333406-27-2024 15:07-0400 Respiratory rate20 /minMD Merrill Hoy Work Phone: [phone] [place], [place] 8333406-27-2024 15:07-0400 SaO2% (BldA) [Mass fraction]98 %MD Merrill Bledsoe Work Phone: [phone] [place], [place] 8333406-27-2024 15:07-0400 Systolic blood mm[Hg]MD Merrill Bledsoe Work Phone: [phone] [place], [place] 8333412-28-2023 15:02-0500 Body .56 cmMD Merrill Hoy Work Phone: [phone])[address] [place], [place] 8333412-28-2023 15:02-0500 Body hmmkebchejm23.9 [degF]MD Merrill Bledsoe Work Phone: [phone] [place], [place] 8333412-28-2023 15:02-0500 Body pfypwq51.42 kgMD Merrill Bledsoe Work Phone: [phone])[address] [place], [place] 8333412-28-2023 15:02-0500 Diastolic blood gwmbhkou09 mm[Hg]MD Merrill Bledsoe Work Phone: [phone] [place], [place] 8333412-28-2023 15:02-0500 Heart rate98 /minMD Momin Hoy Work Phone: [phone] [place], [place] 8333412-28-2023 15:02-0500 Respiratory rate20 /minMD Momin Hoy Work Phone: [phone])[address] [place], [place] 8333412-28-2023 15:02-0500 SaO2% (BldA) [Mass fraction]98 %MD Merrill Bledsoe Work Phone: [phone] [place], [place] 8333412-28-2023 15:02-0500 Systolic blood ptyxmots568 mm[Hg]MD Merrill Bledsoe Work Phone: [phone] [place], [place] 8333406-29-2023 15:27-0400 Body tgxtmrmbyww78.8 [degF]MD Merrill Bledsoe Work Phone: [phone])[address] [place], [place] 8333406-29-2023 15:27-0400 Body .32 kgMD Merrill Hoy Work Phone: [phone])[address] [place], [place] 8333406-29-2023 15:27-0400 Diastolic blood lcpiaclm46 mm[Hg]MD Merrill Bledsoe Work Phone: [phone])[address] [place], [place] 8333406-29-2023 15:27-0400 Heart rate69 /minMD Merrill Bledsoe Work Phone: [phone] [place], [place] 8333406-29-2023 15:27-0400 Respiratory rate16 /minMD Momin Hoy Work Phone: [phone] [place], [place] [address]806-29-2023 15:27-0400 SaO2% (BldA) [Mass fraction]97 %MD Merrill Bledsoe Work Phone: [phone]06-29-2023 15:27-0400 Systolic blood hcesotcl459 mm[Hg]MD Merrill Bledsoe Work Phone: [phone] [place], [place] 8333412-14-2022 14:45-0500 Body zpyixciifkb90.8 [degF]MD Merrill Bledsoe Work Phone: [phone] [place], [place] 8333412-14-2022 14:45-0500 Body vabroz78 kgMD Merrill Bledsoe Work Phone: [phone] [place], [place] 8333412-14-2022 14:45-0500 Diastolic blood hrrpvart15 mm[Hg]MD Merrill Bledsoe Work Phone: [phone] [place], [place] 8333412-14-2022 14:45-0500 Heart rate61 /minMD Merrill Youngy Work Phone: [phone] [place], [place] 8333412-14-2022 14:45-0500 Respiratory rate16 /minMD oNblelas Hoy Work Phone: [phone] [place], [place] 8333412-14-2022 14:45-0500 SaO2% (BldA) [Mass fraction]98 %MD Merrill Bledsoe Work Phone: 1(360)[address] [place], [place] 8333412-14-2022 14:45-0500 Systolic blood rpxittzx044 mm[Hg]MD Merrill Bledsoe Work Phone: [phone] [place], [place] 8333407-29-2022 14:22-0400 Body qxectuhrczl32.1 [degF]MD Merrill Bledsoe Work Phone: [phone] [place], [place] 8333407-29-2022 14:22-0400 Body gjpliz66.96 kgMD Merrill Bledsoe Work Phone: [phone] [place], [place] 8333407-29-2022 14:22-0400 Diastolic blood zyeosaow92 mm[Hg]MD Merrill Bledsoe Work Phone: 1([phone] [place], [place] 8333407-29-2022 14:22-0400 Heart rate63 /min Merrill Bledsoe Work Phone: [phone] [place], [place] 365[address]807-29-2022 14:22-0400 Respiratory rate16 /min Merirll Bledsoe Work Phone: [phone] [place], [place] 365[address]807-29-2022 14:22-0400 SaO2% (BldA) [Mass fraction]98 %MD Merrill Bledsoe Work Phone: [facility]07-29-2022 14:22-0400 Systolic blood vdmelyxw148 mm[Hg]MD Merrill Bledsoe Work Phone: [phone] [place], [place] 365[address]805-20-2022 10:30-0400 Body wwaruk683.94 cmJupebbles Escalante Other [facility] Hactus Other Encounters Encounter DateEncounter TypeCare ProviderFacilityStart: 01-27-2025 End: 06-57-5543geqovudfmrBpboscv M Hoy MD Work Phone: [phone] [place] [address] Work Phone: Start: 01-27-2025 End: 72-23-3743Bppjxowz ReferredMerrill Richter MD-LAB Path Spec [facility] Start: 12-31-2024 End: 55-19-4939Oqaetuo encounter procedureBonnie Richter MD-[facility] Ambulatory Work Phone: Start: 12-31-2024 End: 95-18-4655uodufprspdEqfslha M Hoy MD Work Phone: [phone] [place] [address] Work Phone: Start: 12-09-2024 End: 63-83-2720Mlllparn Result EncounterBonnie Hendricks MD Work Phone: noms External Department UnsolicitedStart: 12-09-2024 End: 08-70-8281Zhbmzjyj Result EncounterBonnie Hendricks MD Work Phone: NOZL External Department UnsolicitedStart: 12-06-2024 ambulatoryDOUGKACY Richter [facility] HospitalStart: 12-03-2024 End: 25-30-2362nxuhmyygynJro L RameyFacility:[facility] Start: 12-03-2024 End: 49-00-5620Xdpabojn ReferredBonnie Hoover CONFERENCE SERVICE COORDINATOR-C-LAB Path Spec [facility] Start: 12-03-2024 End: 96-05-2658Ncrnxpiz Result EncounterBonnie WARE Work Phone: noms External Department UnsolicitedStart: 12-03-2024 End: 36-18-9754Euvroitq Result EncounterBonnie WARE Work Phone: noms External Department UnsolicitedStart: 12-02-2024 ambulatoryWARM SPRINGS MEDICAL CENTERKACY [facility] HospitalStart: 05-24-2024 End: 94-00-8828Vxovrncin department patient visitDODONNIE Richter [facility] HospitalStart: 04-29-2024 End: 26-98-8105elfdozefbvXUIVH CARROLLNot AvailableStart: 04-29-2024 End: 95-40-4213Xozmhd outpatient visit 15 minutesDebra Leon CONFERENCE SERVICE COORDINATOR Work Phone: noms [facility] R[facility]TEComment on above:Ischemic stroke (CMS/HCC) (Primary Dx); Paresthesia; Hyperlipidemia, unspecified hyperlipidemia type (CMS/HCC); Primary hypertension (CMS/HCC); Gait instability; 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Start: 04-29-2024 End: 93-64-2215Zmryzj Ne Leon CONFERENCE SERVICE COORDINATOR Work Phone: NOM[facility] R[facility]TEStart: 04-29-2024 End: 81-27-2217Recfeu Ne Leon CONFERENCE SERVICE COORDINATOR Work Phone: N[facility] ROUTEStart: 03-10-2024 End: 68-01-2718Phpwte outpatient visit 10 minutesDion Brandon MD Work Phone: aNA BELLEVUEComment on above:Ischemic stroke (CMS/HCC) Start: 03-10-2024 End: 80-93-1748pelqpyegdpBTKUI ROMEONot AvailableStart: 02-27-2024 End: 34-47-1270Eifhzk outpatient visit 25 minutesSamateusz Leon CONFERENCE SERVICE COORDINATOR Work Phone: noms [facility] ROUTEComment on above:Ischemic stroke (CMS/HCC) (Primary Dx); Paresthesia; Hyperlipidemia, unspecified hyperlipidemia type (CMS/HCC); Primary hypertension (CMS/HCC); Gait instability; 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Start: 02-27-2024 End: 81-52-1179pbtajidydxPRWJG CARROLLNot AvailableStart: 02-27-2024 End: 79-44-5016Ijrblm Ne Agostooll CONFERENCE SERVICE COORDINATOR Work Phone: noms [facility] ROUTEStart: 02-27-2024 End: 65-34-0618Kfzpzx Ne Leon CONFERENCE SERVICE COORDINATOR Work Phone: noms [facility] ROUTEStart: 12-13-2023 End: 67-44-8160bpwdysnhuvYH Merrill M Hoy Work Phone: [facility] Work Phone: Start: 12-13-2023 End: 61-67-1812Tiekhrf encounter procedureMD Merrill Hoy Work Phone: [facility] Ambulatory Work Phone: Start: 87-13-6743Efjupkckup RecurringMD Merrill Hoy Work Phone: [facility] Work Phone: Start: 06-14-2023 End: 39-62-4639svfgnqgoawIA Merrill M Hoy Work Phone: [facility] Work Phone: Start: 06-14-2023 End: 54-97-6269Rsxdekbbuy RecurringMD Merrill Hoy Work Phone: [facility] Work Phone: Start: 12-14-2022 End: 37-99-1674woxfgswbnhAN Merrill M Hoy Work Phone: [facility] Work Phone: Start: 12-14-2022 End: 11-53-8639Ibhahljlqw RecurringMD Merrill Hoy Work Phone: [facility] Work Phone: Start: 09-16-2022 End: 70-42-0536merntvwrdwLHBMGD RODRIGUEZ .Facility:P7Qfhva: 05-31-2022 End: 96-12-4992oxpgmotjkgMC Merrill M Hoy Work Phone: [facility] Hospital Work Phone: Start: 05-31-2022 End: 28-81-4101Wmrwukbsfd RecurringMD Merrill Hoy Work Phone: [facility] CenterStart: 03-20-2022 End: 76-03-3057Nxvurgtqan and management of inpatientDR MERRILL HOY .Facility:H1 Start: 01-13-2022 End: 76-71-0118Vawnooyzsn RecurringMD Merrill Hoy Work Phone: [facility]Start: 12-20-2021 End: 33-73-1654Aczzzlhdsl and management of inpatientJAALONDRA GARRETTFacility:UTMCStart: 12-20-2021 End: 80-76-1695oquifuxewrTN OBINNA GERRY .Facility:S4Xispi: 11-10-2021 End: 91-47-5142Pjamkoqwsq and management of inpatientDR MERRILL HOY .Facility:H1 Start: 11-04-2021 End: 58-40-6740oohzivtsyyCuvzkw Kelley Other [facility] Other Start: 13-40-2293Vyfekm outpatient visit 15 minutes [facility]icsStart: 06-29-2021 End: 10-04-3639hlkntzbhbgTobybh Kelley Other [facility] Other Start: 25-86-4694Qqambv follow up visit related to original pxGetachew Isbell OrthopedicsStart: 69-64-8941Bjremtwho encounterJustpebbles [facility] Procedures DateProcedureProcedure DetailPerforming ClinicianStart: 82-08-2376Aghmahzj blood count with white cell differential, automatedBonnie Hendricks MD Work Phone: Start: 31-09-6198Zyfonhdftrhsp metabolic panelBonnie Hendricks MD Work Phone: Start: 04-79-5724Pjgvbmzgiwq tumor antigen quantitative ca 125Bonnie Hendricks MD Work Phone: Start: 46-13-9121Tltppum bacterial quanttative colony count urineBonnie WARE Work Phone: Start: 03-53-8458Qgadq cultureDouevaristo Bledsoe MD Work Phone: Start: 45-78-4289Vadmyk scan extracranial art compl bi studySamateusz Leon CONFERENCE SERVICE COORDINATOR Work Phone: Start: 53-06-6822Tsotcpjl tomography of abdomen and pelvis with contrastMD Merrill Hoy Work Phone: Start: 89-87-8462Easlnvkt tomography of abdomen and pelvis with contrastMD Merrill Hoy Work Phone: Start: 92-03-7680Hrrcknfe tomography of abdomen and pelvis with contrastMD Merrill Hoy Work Phone: [phone]: 87-54-6099Aljdywoigxozvgb of limbMD Merrill Hoy Work Phone: Start: 23-50-2917Xnjixpds emission tomography with computed tomographyMD Merrill Hoy Work Phone: Start: 22-59-1368Ztcbxbmg tomography of abdomen and pelvis with contrastMD Merrill Hoy Work Phone: Plan of Treatment DateCare ActivityDetailAuthorStart: 07-17-3781Fwtppeblm vaccinationInfluenza Vaccine (Season Ended)[facility] HealthcareStart: 36-18-3504Pcesf culturePremier Health Miami Valley Hospital Northtart: 90-08-9225Epiwqtxp identified in Urine by Culture Urine CulturePremier Health Miami Valley Hospital Northtart: 11-03-2024 End: 70-81-2314Fqfdkjl encounter procedureNOKETTERING HEALTH GREENE MEMORIAL ROUTEStart: 04-01-2024 End: 02-67-7130Qfecvyz encounter yuuymqbmn61/15/2024 4:00 PM EDT Office Visit [facility] [address] [place] [address] Debra Leon NP [address] [place] [address], [place] [address] [facility] ROUTEStart: 03-10-2024 End: 06-05-6182Wubmrxln Kriucdk0303/10/2024 3:20 PM EDT Clinical Support [facility] [address] [place], [place] [facility] ROUTEStart: 02-27-2024 End: 40-33-8247Kwwiikn encounter riwposflb74/11/2024 4:20 PM EDT Office Visit [facility] [address] [place] [address] Debra Leon NP [address] [place] [address] ArrivedNOKETTERING HEALTH GREENE MEMORIAL ROUTEComment on above:Arrived Start: 02-27-2024 End: 36-84-4032DH.doppler Carotid arteries - bilateralVascular US carotid artery duplex bilateral Imaging Routine Ischemic stroke (CMS/HCC) Expected: 02/27/2024 (Approximate), Expires: 02/26/2025[facility] Work Phone: comment on above:Expected: 02/27/2024 (Approximate), Expires: 02/26/2025Start: 17-11-4575Ghbezcpin vaccinationInfluenza Vaccine (#1) [facility] HealthcareBacteria identified in Urine by CultureUrine culture Microbiology Routine 12/03/2024 7:08 PM EDTNOHeartland Behavioral Health Services Work Phone: cancer Ag 125 [Units/volume] in Serum or Plasma [facility] Work Phone: Cancer Ag 125 [Units/volume] in Serum or Plasma [facility] 125 [Units/volume] in Serum or Plasma [facility] HospitalCancer Ag 125 [Units/volume] in Serum or Plasma [facility] HospitalCancer Ag 125 [Units/volume] in Serum or Plasma [facility] HospitalCancer Ag 125 [Units/volume] in Serum or Plasma [facility] HospitalComprelincoln [facility] metabolic 1999 panel - Serum or [facility] Work Phone: Comprehencommunity health metabolic 1999 panel - Serum or Plasma [facility] HospitalComprehencommunity health metabolic 1999 panel - Serum or [facility] [place] HospitalComprehencommunity health metabolic 1999 panel - Serum or [facility] [place] HospitalComprehencommunity health metabolic 1999 panel - Serum or [facility] [place] HospitalComprehencommunity health metabolic 1999 panel - Serum or [facility] [facility]CT Abdomen and Pelvis W contrast [facility] Work Phone: CT Abdomen and Pelvis [facility]en [facility] W contrast [facility] Pelvis WO and W contrast [facility] Immunizations Immunization DateImmunizationNotesCare YpyyqxuhZnodrjnl39-10-1359kljwwoglr virus vaccine, unspecified formulationSsedrick Leon NP Work Phone: [facility] CenterMlsmsfjoln24-91-1480Lporuxd QIV High-Dose 65YR+MD Merrill Bledsoe Work Phone: [facility]01-01-2020influenza virus vaccine, unspecified formulationMD Merrill Bledsoe Work Phone: [facility]01-01-2020 pneumococcal polysaccharide vaccine, 23 valentJustin Ava Other [facility]01-01-2020influenza, high dose seasonal, preservative-freeJustin Ava Other [facility] Other Payers DatePayer CategoryPayerPolicy [id number] Health InsuranceBANKERS LIFE CASUALTY [id number] LIFE CASUALTY [employer] [id number] 2024-Present [address] [place] [id number]-ryb [id number] [id number] [id number] 2..8.946233.0657-27-1947 [id number] 2.0.1.768226.3.57[id number] 2.840.1.304124.3.57[id number] 2.16840.1.149357.3.57[id number] 2.16840.1.470211.3.57[id number] 2.16840.1.201328.3.57[id number] 2.16840.1.263512.3.57[id number] 2.840.1.906683.3.57[id number] 2.16840.1.167084.3.57[id number] 2.840.1.270631.3.57[id number] 2.840.1.965615.3.57[id number] 2.840.1.953811.3.57[id number] 2.840.1.800354.3.579.2.1286UnknownPrivate [facility] [id number]-465k-[id number] 2.16840.1.4[id number] 2.840.1.137246.3.579.2.531 [id number] 2.840.1.246681.3.579.2.531 Social History DateTypeDetailFacilityStart: 02-27-2024 End: 80-86-6070Bhp Assigned At [facility] Other Start: 01-13-2022 End: 99-68-4073Xlbmlqc smoking status NHISNever smoked tobacco (finding) [facility] Northtart: 78-80-7403Mbr Assigned At [facility] Hospitaltart: 29-62-2932Botklpa use and exposure Smokeless tobacco non-userNOMS HealthcareStart: 03-06-2024 End: 33-63-1511Ciryykcck beverage intakeEx-drinker (finding)[facility] Start: 02-27-2024 End: 22-38-4646Cmykjks of Social functionNOMS HealthcareStart: 23-51-3689Bjb assigned at birthNot on fileINTERMOUNTAIN HEALTHCARE HealthcareStart: 78-76-6520Ffadtsptm beverage intakeLifetime non-drinker (finding)[facility] HealthcareSexFemale (finding)[facility] Medical Equipment Procedure CodeEquipment CodeEquipment Original TextEquipment IdentifierDates 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Bipolar femoral head outer component, hemiarthroplasty()[id number] FDA Start: 89-66-2001Qezygwgor invasive revision of total replacement of hipFemoral head/stem prosthesis adaptor()[id number] FDAStart: 70-37-5669Mfadieren invasive revision of total replacement of hipPress-fit femoral stem prosthesis()[id number] FDAStart: 04-21-2021 Clinical Notes 11-06-2006 to 12-31-2024 Note Date & QidwCqmgGirxmlvc55-35-8232 Evaluation note* Diagnosis Onset Date Resolution Status Admit Date Bowel wall thickening chronicJuly 2024 2:46pmCompression fracture of T9 vertebrachronicJuly 2024 2:46pmDepressionchronicJuly 2024 2:46pmNon-Singaporean speaking patientchronicJuly 2024 2:46pmPelvic masschronicJuly 2024 2:46pmS/P hip hemiarthroplastychronicJuly 2024 2:46pmIschemic strokeresolvedJuly 2024 2:46pmHistory of ischemic strokeacuteJuly 2024 2:46pmBowel wall thickeningchronicJuly 2024 2:46pmNon-Singaporean speaking patientchronicJuly 2024 2:46pmPelvic masschronicJuly 2024 2:46pmS/P hip hemiarthroplastychronicJuly 2024 2:46pm [facility] Work Phone: [phone] 802-128311-12-2024 History of Present illness Narrative* Debra Leon NP - 04/29/2024 4:00 PM EST Images from the original note were not included. Debra Leon NP Chief Complaint Patient presents with Follow-up [...] Daughter states the patient generally eats very he althy. She does not smoke or drink alcohol. The patient continues to have intermittent numbness and tingling in her right arm. This is generally unchanged. She states the paresthesias in her head have subsided since the prior neurology appointment. She denies any other new symptoms or concerns. The patient's primary language is Lithuanian. The patient's daughter provided translation for today's appointment, stating she is fluent in both Singaporean and Lithuanian. I did offer a professional pin machine tender service. The patient and her daughter politely declined this. They understand that, by refusing a p rofessional pin machine tender, there is increased risk for miscommunication, misunderstanding, [...] Arthritis COVID-19 NSTEMI (non-ST elevated myocardial infarction) ([facility]) Sepsis ([facility]) Stroke ([facility]) UTI (urinary tract infection) 12/2022 Past Surgical [...] wrist extensors , wrist flexor , and kitchen food server strength 5/5. LUE strength deltoid , biceps , triceps , wrist extensors , wrist flexor , and kitchen food server strength 5/5. RLE strength iliopsoas, quadriceps, tibialis [...] reflex 2+. LLE Knee reflex 2+. Coordination: Uxywvc-nn-nfuy testing normal. Rapid alternating movements are normal. Gait: Steady with use of walker. Review and summary of old records: Carotid ultrasound at [facility] on 03/10/24: No hemodynamically significant stenosis noted. Mild intimal thickening. 1 to 29% stenosis of the right and left ICA. Antegrade flow of the right and left VA. Normal triphasic waveforms in the right and left SCA. Sodium level on 01/07/23: 138. ECHO on 01/04/23: No mention of mass or thrombus. EF 55% CT of the brain without contrast at [facility] on 01/04/23: Stable remote infarcts left basal [...] with preserved ejection fraction. No masses, vegetation, orthrombus. Labs on 04/22/21: Hemoglobin A1c 5.5%. LDL 132. Assessment/Plan Diagnoses and all orders for this visit: Ischemic stroke ([facility]) The patient has a history of multiple infarcts on the left side of the brain. These were identifiedon MRI of the brain from 04/22/21. Carotid ultrasound on 04/21/21 and MRA of the head on 04/22/21 wereunremarkable. The patient initially presented with right facial [...] of TIA/stroke and educated the patient to seekemergent care in the emergency department if she develops any of these in the future Paresthesia The patient previously reported intermittent episodes of paresthesias involving her entire head andface. These had no accompanying symptoms, and she denied head pain. These have since subsided. Etiology is unclear to me, as the patient's symptoms were transient and followed no particular nerve distribution. Uncertain these would have been neurologic in nature. Her clinical examination today reveals no new neurologic deficits. Hyperlipidemia, unspecified hyperlipidemia type ([facility]) PLAN: - Follow up with primary care provider for management - Continue statin (prescription and management per PCP) Primary hypertension ([facility]) PLAN: - Follow up with primary care [...] needed for new or worsening symptoms. Debra Leon NP [facility] documented in this encounterCapital Region Medical CenterKatzaszsxo57-29-8625 History of Present illness Narrative* Shae Pimentel RN - 03/10/2024 3:20 PM EDT Tech explains to patient and daughter (who assists in any language barriers) the procedure process and answers any questions, patient is positioned supine on exam table ultrasound procedure(s)completed. Pt verbalizes no concerns, assisted to sitting position without difficulty. Discharged as she arrived using a walker and accompanied per daughter are advised results will read by a neurologist andforwarded to ordering physician for review with patient at next appt or per phone. Daughter confirms follow-up appt 04/01/24. IVAN Pimentel RN documented in this encounterCapital Region Medical CenterRvmbqhhfjw16-75-8600 History of Present illness Narrative* Debra Leon NP - 02/27/2024 4:20 PM EDT Images from the original note were not included. Debra Leon NP Chief Complaint Patient presents with Tingling [...] appointment, stating she is fluent in both Singaporean and Lithuanian. I did offer a professional pin machine tender service. However, the patient and her daughter declined this. They understand that, by refusing a professional pin machine tender, there is increasedrisk for miscommunication, misunderstanding, unintended patient harm, and [...] Arthritis COVID-19 NSTEMI (non-ST elevated myocardial infarction) ([facility]) Sepsis ([facility] Stroke ([facility]) UTI (urinary tract infection) 12/2022 Past Surgical [...] wrist extensors , wrist flexor , and kitchen food server strength 5/5. LUE strength deltoid , biceps , triceps , wrist extensors , wrist flexor , and kitchen food server strength 5/5. RLE strength iliopsoas, quadriceps, tibialis [...] reflex 2+. LLE Knee reflex 2+. Coordination: Rhlcst-xm-klru testing normal. Rapid alternating movements are normal. Gait: Steady with use of walker. Review and summary of old records: Sodium level on 01/07/23: 138. ECHO on 01/04/23: No mention of mass or thrombus. EF 55% CT of the brain without contrast at [facility] on 01/04/23: Stable remote infarcts left basal [...] with preserved ejection fraction. No masses, vegetation, orthrombus. Labs on 04/22/21: Hemoglobin A1c 5.5%. LDL 132. Assessment/Plan Diagnoses and all orders for this visit: Ischemic stroke (CMS/HCC) The patient has a history of multiple infarcts on the left side of the brain. These were identifiedon MRI of the brain from 04/22/21. Carotid ultrasound on 04/21/21 and MRA of the head on 04/22/21 wereunremarkable. The patient initially presented with right facial [...] of TIA/stroke and educated the patient to seekemergent care in the emergency department if she develops any of these in the future Paresthesia The patient presents today reporting intermittent episodes of paresthesias involving her entire head and face. These have no accompanying symptoms, and she denies head pain. Etiology is unclear to elias this time, as the patient's symptoms follow no particular nerve distribution. Her clinical examination today reveals no new neurologic deficits. Will order a carotid ultrasound to assess for possible carotid artery stenosis or occlusion. PLAN: - Carotid ultrasound Hyperlipidemia, unspecified hyperlipidemia type ([facility]) PLAN: - Follow up with primary care provider for management - Continue statin (prescription and management per PCP) Primary hypertension ([facility]) PLAN: - Follow up with primary care [...] needed for new or worsening symptoms. Debra Leon NP [facility] documented in this [facility]09-11-2024 Instructions* Patient Instructions* Debra Leon NP - 02/27/2024 4:20 PM EDT - Carotid ultrasound documented in this [facility]06-30-2023 Progress note Author Bonnie Hendricks [facility] December 15, 2022 9:01amNote Date/TimeJune 2022 3:30pmChristus Good [facility] [place] [address] Hem/Onc Follow Up Note - OP Signed Patient: Sabi Santamaria MR#: [id number] : 1945 Acct:[id number] Age/Sex: 77 / F Type: REG RCR Copies to: Merrill Bledsoe MD~ Subjective Date/Time of Service: Date of Service: 12/14/2022 Time of Service: 15:29 Chief Complaint: Patient is here today for a 6 month follow up visit and go overCT scan and labs. No new concerns HPI: 12/14/2022: Sabi is here for 6 month followup with daughter who acts as her pin machine tender. She denies any abdominal pain or bloating [...] new issues arise. Moderate complexity 30-minute follow-up forreview of exam, tumor marker, and imaging. 05/31/2022: Sabi is here for about 4 month followup with daughter who acts as her pin machine tender. Since last visit patient has not had [...] with limited ability to speak and understand Singaporean. 01/13/2022: Sabi is accompanied by her daughter who acts as her pin machine tender. [facility] about 3 weeks [...] CT abdomen pelvis. She may return sooner ifshe has new symptomatic pain or distention. The patient and her daughter are in agreement with thisplan over this moderate complexity 35-minute visit. 10/12/2021: This patient is primarily Lithuanian-speaking and is accompanied by mary grace who acts as her pin machine tender. She is here for transfer of care from Dr. Fernandez who has left the practice. She was hospitalized in early April 2021 for fractured right hip--s/p hemiarthroplasty 04/21/2022. Prior hysterectomy in the early at [facility], ovaries intact. During that hospital stay she [...] bony metastatic disease given the T9 vertebral compr ession and whether there is activity within the left adnexal mass. She will follow-up by phone withme this week and we will determine whether [...] daughter presents with her. She is her pin machine tender. The patient had a hysterectomy at [facility]. I was told previously this was in [place]. Supposedly this was for uterine cancer. I do not know she had an oophorectomy. Below is the recent summary of findings while she was admitted after the hip fracture: Interval History: CA-125 is normal. Urology note and procedure is noted. Her CT scan is reviewedbelow: Patient: Sabi Santamaria MR#: [id number] : 1945 Acct:[id number] Age/Sex: 76 / F ADM Date: 1 Loc: 4N Room: 6M2702-4 Type: ADM IN Attending Dr: Jayden Abad MD Ordering Provider: Jose Lewis MD Date of Service: 04/25/21 CT/CT abdomen pelvis wo/w con: hematuria CT abdomen and pelvis 04/25/2021. CLINICAL DATA: Hematuria. TECHNIQUE: CT of the abdomen and pelvis was performed both without and with intravenous contrast. Axial, sagittal, and coronal reconstructions were created and reviewed. This CT exam was performed using one or more of the following dosereduction techniques: Automated exposure control, adjustment ofthe mA and/or kVaccording to patient size, or use of iterative reconstruction technique. COMPARISON: None. FINDINGS: Images of the lower chest demonstrate a small hiatal hernia. The liver, spleen, pancreas,and both adrenal glands appear unremarkable. No renal [...] 2.4 by 4.0 cm soft tissue mass inthe pelvis on the left. Possibilities include a prominent ovary and an enlarged iliac chain lymph node. No acute intestinal abnormality is identified. The appendix is surgically absent. No freeintra-abdominal air or ascites is seen. The lower thoracic and lumbar spine demonstrate degenerative changes and curvature. There is spondylolisthesis at the lumbosacral junction. A right hip replacement isnoted. CT/CT abdomen pelvis wo/w con IMPRESSION: 1. [...] and possibilities radiographically included a prominent ovary orenlarged lymph nodes. We could consider PET/CT as an outpatient and ifnegative, observation. If it would have increased metabolic activity we could consider biopsy and likely this would be done either laparoscopically or throughIR. At this point I will follow with you. This is a 76-year-old female who does not speak Singaporean. She was found down on the floor after stroke. She has a history of a history of hysterectomy or some type of gynecologic surgery in [place] in the distant past. Her CT scan shows either a left-sided pelvic mass or left sided enlarged ovary. CA-125 is currently pending. As above she does not speak Singaporean. An buhr dresser is not in the room. Her CT and reports are reviewed. She had a right femoral head fracture and is status post surgery. She is recovering well. - Summary of Therapies Summary of Therapies: 1. History of a history of hysterectomy or some type of gynecologic surgery in [facility] about 1979, ovaries intact--unclear prior pathology. She [...] for abdominal pain, constipation, decreased appetite,diarrhea, nausea orvomiting. Prior hospitalization 05/2021 for bowel obstruction, nonsurgical [...] for environmental allergies and food allergies. [facility] - History Attestation statement: The following information [...] PO DAILY 06/14/21 [History Confirmed 12/14/22] omega 1-wmy-oie-fish oil 1,200 mg (144 mg-216 mg) capsule [...] Thin but not cachectic. Daughter acts as pin machine tender. HEAD / FACE: Normocephalic. EYES: Pupils are [...] % (Auto) 56.9, Lymph % (Auto) 31.0, Henry % (Auto) 8.4, Eos % (Auto) 3.1, Baso % (Auto) 0.6, Nucleat RBC Rel Count 0.2, Neut # (Auto) 2.8, Lymph # (Auto) 1.5, Henry # (Auto) 0.4, Eos # (Auto) 0.1, Baso # (Auto) 0.0 12/12/22 15:50: PHA Creatinine Clear N/A, Sodium 137, Potassium 4.3, Chloride 104, Carbon Dioxide 27.1, Anion Gap 10.2, BUN 15, Creatinine 0.69, Est GFR (CKD- EPI) > 60.0, Glucose 99, Calcium 9.1, Total [...] distended without focal abnormality. The patient's known leftadnexal lesion is grossly similar to the prior study. Uterus appears to been removed. Peritoneum/Retroperitoneum:No free air, free fluid or lymphadenopathy. No omental or peritoneal disease is seen. Abd wall/Bones:Abdominal wall demonstrate no acute findings. Osseous structuresdemonstrate degenerative change. CT/CT abdomen pelvis w con IMPRESSION: No CT evidence of progression of disease. Impression dictated by: Madison Patel Jr..Flash12/12/2022 4:57 PM Assessment and Plan - TNM [...] a fci. 10/12/2021: She transferred care [place] with initial visit 10/12/[address] Fernandez is no longer withthe practice. She has not been seen by anybody for the pelvic mass since his initial discovery in April 2021. She does not haveany pelvic pain or distention. The patient's son who acts as her translater wasunaware that she had a pelvic mass and we discussed her CT results as well as reviewed theimages today. Since she did have enlargement of [...] by hospitalization for small bowel obstruction at [facility] which resolved with NG tube and no surgical intervention. We did review the results of her fine-needle aspiration of left groin lymph node showing no evidence of metastatic disease in fragmented lymphoid tissue. No lymphoproliferative disorder on flow cytometry. We decidedin absence of current symptoms and negative biopsy that we will defer next follow- up with CBC, CMP, CA 125, and CT abdomen and pelvis to 4 months, sooner if she has new symptoms arise. Patient and daughter in agreement with this plan. 05/31/2022: Sabi presents with her sfzyjibr-qk-ctf for follow-up. She no longer has any abdominal pain or distention and is eating a normal diet with no further episodes of small bowel obstruction. She does not have any detectable adenopathy by exam or by restaging 05/16/2022 CT abdomen and pelvis reviewed with the patient and her uiinsnvk-gb-ivr today. She has unchanged cyst of the left kidney. She has no evidence of bowel obstruction although there is questionable thickening involving thedistal rectum and anal canal. She was previously [...] develops clinical adenopathy. The patient and her xkmkuswc-bm-zfn are in agreement with this plan over [...] type symptoms. She [place] [facility] in [place] [facility] and moved back into her home with [...] follow with symptoms and serial imaging. (6) Non-Singaporean speaking patient Patient expressed understanding and was able to give review of systems with limited Singaporean. Different family members served as translators and if we change manager we will obtain a translation service for her follow-up appointments. - Time with Patient Time Spent with Patient (Follow Up Visit): 35 minutes - Review restaging images and reports, repeatCa 125, symptoms and exam, surveillance plan Coordination of Care & Counseling Time: Greater than 50% of time spent with patient was for coordination of care (as documented) and hmtd-sd-lvod counseling of patient and/or family. Dictated By: Bonnie Hendricks MD DD/ 1529 Signed By: <Electronically signed by MD Bonnie Hendricks> 12/15/22 0901 [facility] Work Phone: [phone]) 599-707712-14-2022 Progress note Author Bonnie Hendricks [facility] May 31, 2022 4:00pmNote Date/TimeDecember 2021 2:47pmChrist[facility] [place] [id number] Hem/Onc Follow Up Note - OP Signed Patient: Sabi Santamaria MR#: [id number] : 1945 Acct:[id number] Age/Sex: 77 / F Type: REG RCR Copies to: Merrill Bledsoe MD~ Subjective Date/Time of Service: Date of Service: 05/31/2022 Time of Service: 14:46 Chief Complaint: Patient is here today for 5 month follow up visit and go over labs and CT scan. Nonew concerns HPI: 05/31/2022: Sabi is here for about 4 month followup with daughter who acts as her pin machine tender. Since last visit patient has not had [...] with limited ability to speak and understand Singaporean. 01/13/2022: Sabi is accompanied by her daughter who acts as her pin machine tender. [facility] was [facility] for a bowel obstruction about 3 weeks [...] CT abdomen pelvis. She may return sooner ifshe has new symptomatic pain or distention. The patient and her daughter are in agreement with thisplan over this moderate complexity 35-minute visit. 10/12/2021: This patient is primarily Lithuanian-speaking and is accompanied by mary grace who acts as her pin machine tender. She is here for transfer of care from Dr. Fernandez who has left the practice. She was hospitalized in early April 2021 for fractured right hip--s/p hemiarthroplasty 04/21/2022. Prior hysterectomy in the early at [facility], ovaries intact. During that hospital stay she [...] bony metastatic disease given the T9 vertebral compr ession and whether there is activity within the left adnexal mass. She will follow-up by phone withme this week and we will determine whether [...] daughter presents with her. She is her pin machine tender. The patient had a hysterectomy at [facility]. I was told previously this was in [place]. Supposedly this was for uterine cancer. I do not know she had an oophorectomy. Below is the recent summary of findings while she was admitted after the hip fracture: Interval History: CA-125 is normal. Urology note and procedure is noted. Her CT scan is reviewedbelow: Patient: Sabi Santamaria MR#: [id number] : 1945 Acct:[id number] Age/Sex: 76 / F ADM Date: 1 Loc: 4N Room: 5H8105-7 Type: ADM IN Attending Dr: Jayden Abad MD Ordering Provider: Jose Lewis MD Date of Service: 04/25/21 CT/CT abdomen pelvis wo/w con: hematuria CT abdomen and pelvis 04/25/2021. CLINICAL DATA: Hematuria. TECHNIQUE: CT of the abdomen and pelvis was performed both without and with intravenous contrast. Axial, sagittal, and coronal reconstructions were created and reviewed. This CT exam was performed using one or more of the following dosereduction techniques: Automated exposure control, adjustment ofthe mA and/or kVaccording to patient size, or use of iterative reconstruction technique. COMPARISON: None. FINDINGS: Images of the lower chest demonstrate a small hiatal hernia. The liver, spleen, pancreas,and both adrenal glands appear unremarkable. No renal [...] 2.4 by 4.0 cm soft tissue mass inthe pelvis on the left. Possibilities include a prominent ovary and an enlarged iliac chain lymph node. No acute intestinal abnormality is identified. The appendix is surgically absent. No freeintra-abdominal air or ascites is seen. The lower thoracic and lumbar spine demonstrate degenerative changes and curvature. There is spondylolisthesis at the lumbosacral junction. A right hip replacement isnoted. CT/CT abdomen pelvis wo/w con IMPRESSION: 1. [...] and possibilities radiographically included a prominent ovary orenlarged lymph nodes. We could consider PET/CT as an outpatient and ifnegative, observation. If it would have increased metabolic activity we could consider biopsy and likely this would be done either laparoscopically or throughIR. At this point I will follow with you. This is a 76-year-old female who does not speak Singaporean. She was found down on the floor after stroke. She has a history of a history of hysterectomy or some type of gynecologic surgery in [place] in the distant past. Her CT scan shows either a left-sided pelvic mass or left sided enlarged ovary. CA-125 is currently pending. As above she does not speak Singaporean. An buhr dresser is not in the room. Her CT and reports are reviewed. She had a right femoral head fracture and is status post surgery. She is recovering well. - Summary of Therapies Summary of Therapies: 1. History of a history of hysterectomy or some type of gynecologic surgery in [facility] about 1979, ovaries intact--unclear prior pathology. She was informed of the past that she had ovarian cancer. ROS Details: All systems reviewed & no additional complaints except as documented Subjective/ROS - Narrative: CONSTITUTIONAL: Unchanged mild fatigue, negative for fever or night sweats. Weight stable from lastvisit in December. Previously decreased 10 kg from September toJuly 2021, likely related to hospitalizationfor bowel obstruction. Patient's daughter states that she has returned to eating normal diet. HEAD AND NECK: Negative for changes in hearing and vision. Negative for mouth ulcers, nasal congestion and nasal drainage. PULMONARY: Negative for chest pain, cough and dyspnea. CARDIOVASCULAR: Negative for claudication and irregular heartbeat/palpitations. GASTROINTESTINAL: Negative for abdominal pain, constipation, decreased appetite,diarrhea, nausea orvomiting. Recent hospitalization for bowel obstruction, nonsurgical intervention with resolution ofsymptoms. GENITOURINARY: Negative for dysuria and hematuria. Denies [...] for environmental allergies and food allergies. [facility] - History Attestation statement: The following information [...] bisacodyl 10 mg rectal suppository 10 mg AL DAILY PRN Constipation #0 ea 05/23/21 [Rx [...] PO DAILY 06/14/21 [History Confirmed 05/31/22] omega 3-vxh-hnm-fish oil 1,200 mg (144 mg-216 mg) capsule [...] Thin but not cachectic. Daughter acts as pin machine tender. HEAD / FACE: Normocephalic. EYES: Pupils are [...] is grossly unremarkable. Small bowel appears nondilated. Noacute colonic abnormality. Questionable thickening involving the distal rectum anal canal. Pelvis: Post surgical changes. Uterus has been removed. Urinary bladder is distended without focal abnormality. Left adnexal lesion measuring 4.0 x 2.8 cm similar to the prior study. Peritoneum/Retroperitoneum:No free air, free fluid or lymphadenopathy. No definite omental or peritoneal disease. Abd wall/Bones:Abdominal wall diffusely acute findings. Osseous structures demonstrate degenerativechange. CT/CT abdomen pelvis w con IMPRESSION: Stable [...] a [facility]. 10/12/2021: [place] care [place] with initial visit 10/12/[address] Fernandez is no longer withthe practice. She has not been seen by [...] right external iliac lymph node and right inguinallymph nodes (although not palpable on exam) we will evaluate with PET/CT to see if there is FDG avidity in these areas. Based on this result I will follow-up with her daughter or son by phone to revie w the PET/CT results and to determine appropriate [...] by hospitalization for small bowel obstruction at [facility] which resolved with NG tube and no surgical intervention. We did review the results of her fine-needle aspiration of left groin lymph node showing no evidence of metastatic disease in fragmented lymphoid tissue. No lymphoproliferative disorder on flow cytometry. We decidedin absence of current symptoms and negative biopsy that we will defer next follow- up with CBC, CMP, CA 125, and CT abdomen and pelvis to 4 months, sooner if she has new symptoms arise. Patient and daughter in agreement with this plan. 05/31/2022: Kelly Oneil presents with her gnowspdw-us-fby for follow-up. She no longer has any abdominal pain or distention and is eating a normal diet with no further episodes of small bowel obstruction. She does not have any detectable adenopathy by exam or by restaging 05/16/2022 CT abdomen and pelvis reviewed with the patient and her mrldyopk-jy-kwm today. She has unchanged cyst of the left kidney. She has no evidence of bowel obstruction although there is questionable thickening involving the distal rectum and anal canal. She was previously referred to gastroenterology but did not show upfor the appointment. In the absence of symptoms we will defer colonoscopy and repeat imaging in 6 mo nths. The left adnexal lesion identified on previous [...] develops clinical adenopathy. The patient and her tpsaebuk-hy-bpe are in agreement with this plan over [...] type symptoms. She [place] in [place] [facility] and moved back into her home with [...] hematochezia. For now we will follow with symptomsand serial imaging. (7) Non-Singaporean speaking patient Patient expressed understanding and was able to give review of systems with limited Singaporean. Different family members served as translators and if we change manager we will obtain a translation service for her follow-up appointments. - Time with Patient Time Spent with Patient (Follow Up Visit): 35 minutes - Review restaging images and reports, repeatCa 125, symptoms and exam, surveillance plan Coordination of Care & Counseling Time: Greater than 50% of time spent with patient was for coordination of care (as documented) and xlpd-xv-ulfj counseling of patient and/or family. Dictated By: Bonnie Hendricks MD DD/ 1446 Signed By: <Electronically signed by MD Bonnie Hendricks> 05/31/22 1600 [facility] Work Phone: 1(365) 243-770707-30-2022 Progress note Author Bonnie Hendricks [facility] January 14, 2022 12:30pmNote Date/TimeJuly 2021 2:33pmChrist[facility] [address] [address] Hem/Onc Follow Up Note - OP Signed Patient: Sabi Santamaria MR#: [id number] : 1945 Acct:[id number] Age/Sex: 76 / F Type: REG RCR Copies to: Merrill Bledsoe MD~ Subjective Date/Time of Service: Date of Service: 01/13/2022 Time of Service: 14:32 Chief Complaint: Patient is here for a follow up visit for pelvic mass and had alymph node biopsy ultrasound. She also was at [facility] for bowel obstruction and didnot have to do surgery and is doing well HPI: 01/13/2022: Sabi is accompanied by her daughter who acts as her pin machine tender. She was hospitalized[facility] for a bowel obstruction about 3 weeks [...] CT abdomen pelvis. She may return sooner ifshe has new symptomatic pain or distention. The patient and her daughter are in agreement with thisplan over this moderate complexity 35-minute visit. 10/12/2021: This patient is primarily Lithuanian-speaking and is accompanied by mary grace who acts as her pin machine tender. She is here for transfer of care from Dr. Fernandez who has left the practice. She was hospitalized in early April 2021 for fractured right hip--s/p hemiarthroplasty 04/21/2022. Prior hysterectomy in the early at [facility], ovaries intact. During that hospital stay she [...] bony metastatic disease given the T9 vertebral compr ession and whether there is activity within the left adnexal mass. She will follow-up by phone withme this week and we will determine whether [...] daughter presents with her. She is her pin machine tender. The patient had a hysterectomy at [facility]. I was told previously this was in [place]. Supposedly this was for uterine cancer. I do not know she had an oophorectomy. Below is the recent summary of findings while she was admitted after the hip fracture: Interval History: CA-125 is normal. Urology note and procedure is noted. Her CT scan is reviewedbelow: Patient: Sabi Santamaria MR#: [id number] : 1945 Acct:[id number] Age/Sex: 76 / F ADM Date: 1 Loc: 4N Room: 1C8066-9 Type: ADM IN Attending Dr: Jayden Abad MD Ordering Provider: Jose Lewis MD Date of Service: 04/25/21 CT/CT abdomen pelvis wo/w con: hematuria CT abdomen and pelvis 04/25/2021. CLINICAL DATA: Hematuria. TECHNIQUE: CT of the abdomen and pelvis was performed both without and with intravenous contrast. Axial, sagittal, and coronal reconstructions were created and reviewed. This CT exam was performed using one or more of the following dosereduction techniques: Automated exposure control, adjustment ofthe mA and/or kVaccording to patient size, or use of iterative reconstruction technique. COMPARISON: None. FINDINGS: Images of the lower chest demonstrate a small hiatal hernia. The liver, spleen, pancreas,and both adrenal glands appear unremarkable. No renal [...] 2.4 by 4.0 cm soft tissue mass inthe pelvis on the left. Possibilities include a prominent ovary and an enlarged iliac chain lymph node. No acute intestinal abnormality is identified. The appendix is surgically absent. No freeintra-abdominal air or ascites is seen. The lower thoracic and lumbar spine demonstrate degenerative changes and curvature. There is spondylolisthesis at the lumbosacral junction. A right hip replacement isnoted. CT/CT abdomen pelvis wo/w con IMPRESSION: 1. [...] and possibilities radiographically included a prominent ovary orenlarged lymph nodes. We could consider PET/CT as an outpatient and ifnegative, observation. If it would have increased metabolic activity we could consider biopsy and likely this would be done either laparoscopically or throughIR. At this point I will follow with you. This is a 76-year-old female who does not speak Singaporean. She was found down on the floor after stroke. She has a history of a history of hysterectomy or some type of gynecologic surgery in [place] in the distant past. Her CT scan shows either a left-sided pelvic mass or left sided enlarged ovary. CA-125 is currently pending. As above she does not speak Singaporean. An buhr dresser is not in the room. Her CT [...] for abdominal pain, constipation, decreased appetite,diarrhea, nausea orvomiting. Recent hospitalization for bowel obstruction, nonsurgical intervention with resolution ofsymptoms. GENITOURINARY: Negative for dysuria and hematuria. Denies [...] for environmental allergies and food allergies. [facility] - History Attestation statement: The following information [...] bisacodyl 10 mg rectal suppository 10 mg AL DAILY PRN Constipation #0 ea 05/23/21 [Rx [...] PO DAILY 06/14/21 [History Confirmed 11/09/21] omega 9-jdz-enr-fish oil 1,200 mg (144 mg-216 mg) capsule [...] Thin but not cachectic. Daughter acts as pin machine tender. HEAD / FACE: Normocephalic. EYES: Pupils are [...] device was utilized with ultrasound guidance. 3 18- gauge core samples were obtained. No immediate complications. [...] 10/12/[address] Fernandez is no longer withthe practice. She has not been seen by anybody for the pelvic mass since his initial discovery in April 2021. She does not haveany pelvic pain or distention. The patient's son who acts as her translater wasunaware that she had a pelvic mass and we discussed her CT results as well as reviewed theimages today. Since she did have enlargement of [...] by hospitalization for small bowel obstruction at [facility] which resolved with NG tube and no surgical intervention. We did review the results of her fine-needle aspiration of left groin lymph node showing no evidence of metastatic disease in fragmented lymphoid tissue. No lymphoproliferative disorder on flow cytometry. We decidedin absence of current symptoms and negative biopsy that we will defer next follow- up with CBC, CMP, CA 125, and CT [...] type symptoms. [place] [facility] and moved back into her home with [...] for coordination of care (as documented) and vuli-sg-meqa counseling of patient and/or family. Dictated By: Bonnie Hendricks MD DD/ 1432 Signed By: <Electronically signed by MD Bonnie Hendricks> 01/14/22 1230 [facility] Work Phone: 1(208) 292-502907-30-2022 NoteMR#: [id number] [facility] Pt. Name: Sabi Santamaria Admitted: 12/20/2021 Discharged: 12/29/2021 Date of : 1945 Physician: Minesh Daly M.D. DISCHARGE SUMMARY DISCHARGE ATTENDING: Minesh Daly M.D. PRINCIPAL DIAGNOSIS: Small bowel obstruction. SECONDARY DIAGNOSIS: None. HISTORY: This is 76-year-old female with past medical history of hypertension, hyperlipidemia, and CVA, was transferred from [facility] for small bowel obstruction. The patient [...] Davalos MD Date Trans: 01/14/2022 12:43 A/chen [id number] cc: Merrill Bledsoe M.D. [address] [place] [id number]* Encounter Date Diagnosis Assessment Notes Treatment Notes Treatment Clinical Notes October, Other specified postprocedural s tates (ICD-10 - Z98.890) October,losed fracture of head of right femur with routine healing, subsequent encounter (ICD-10 - S72.051D)Sabi is here today about 2 months s/p right hip hemiarthroplasty for FNF. At this juncture we have discussed the findings and diagnosis as well as personally reviewed appropriate imaging and performed interpretation of related testing and examination with the patient in office today. Her son iswith her today. Overall she has made an [...] on mobility and with cane transition from walker [employer] Other 04-28-2022 Progress note Author Bonnie Hendricks [facility] October 13, 2021 11:29amNote Date/TimeApril 2021 11:53[facility] at [address] [address] Hem/Onc Follow Up Note - OP Signed Patient: Sabi Santamaria MR#: [id number] : 1945 Acct:[id number] Age/Sex: 76 / F Type: REG RCR Copies to: Merrill Bledsoe MD~ Subjective Date/Time of Service: Date of Service: 10/12/2021 Time of Service: 11:53 Chief Complaint: Patient is a former patient of Dr Fernandez here for a 4 month follow up with scans for review. HPI: 10/12/2021: This patient is primarily Lithuanian-speaking and is accompanied by mary grace who acts as her pin machine tender. She is here for transfer of care from Dr. Fernandez who has left the practice. She was hospitalized in early April 2021 for fractured right hip--s/p hemiarthroplasty 04/21/2022. Prior hysterectomy in the early at [facility], ovaries intact. During that hospital stay she [...] bony metastatic disease given the T9 vertebral compr ession and whether there is activity within the left adnexal mass. She will follow-up by phone withme this week and we will determine whether [...] daughter presents with her. She is her pin machine tender. The patient had a hysterectomy at [facility]. I was told previously this was in [place]. Supposedly this was for uterine cancer. I do not know she had an oophorectomy. Below is the recent summary of findings while she was admitted after the hip fracture: Interval History: CA-125 is normal. Urology note and procedure is noted. Her CT scan is reviewedbelow: Patient: Sabi Santamaria MR#: [id number] : 1945 Acct:[id number] Age/Sex: 76 / F ADM Date: 1 Loc: Room: 6S7748-4 Type: ADM IN Attending Dr: Jayden Abad MD Ordering Provider: Jose Lewis MD Date of Service: 04/25/21 CT/CT abdomen pelvis wo/w con: hematuria CT abdomen and pelvis 04/25/2021. CLINICAL DATA: Hematuria. TECHNIQUE: CT of the abdomen and pelvis was performed both without and with intravenous contrast. Axial, sagittal, and coronal reconstructions were created and reviewed. This CT exam was performed using one or more of the following dosereduction techniques: Automated exposure control, adjustment ofthe mA and/or kVaccording to patient size, or use of iterative reconstruction technique. COMPARISON: None. FINDINGS: Images of the lower chest demonstrate a small hiatal hernia. The liver, spleen, pancreas,and both adrenal glands appear unremarkable. No renal [...] 2.4 by 4.0 cm soft tissue mass inthe pelvis on the left. Possibilities include a prominent ovary and an enlarged iliac chain lymph node. No acute intestinal abnormality is identified. The appendix is surgically absent. No freeintra-abdominal air or ascites is seen. The lower thoracic and lumbar spine demonstrate degenerative changes and curvature. There is spondylolisthesis at the lumbosacral junction. A right hip replacement isnoted. CT/CT abdomen pelvis wo/w con IMPRESSION: 1. [...] and possibilities radiographically included a prominent ovary orenlarged lymph nodes. We could consider PET/CT as an outpatient and ifnegative, observation. If it would have increased metabolic activity we could consider biopsy and likely this would be done either laparoscopically or throughIR. At this point I will follow with you. This is a 76-year-old female who does not speak Singaporean. She was found down on the floor after stroke. She has a history of a history of hysterectomy or some type of gynecologic surgery in [place] in the distant past. Her CT scan shows either a left-sided pelvic mass or left sided enlarged ovary. CA-125 is currently pending. As above she does not speak Singaporean. An buhr dresser is not in the room. Her CT [...] for abdominal pain, constipation, decreased appetite,diarrhea, nausea orvomiting. GENITOURINARY: Negative for dysuria and hematuria. Denies [...] for environmental allergies and food allergies. [facility] - History Attestation statement: The following information [...] bisacodyl 10 mg rectal suppository 10 mg AL DAILY PRN #0 ea 05/23/21 [Rx Confirmed [...] PO DAILY 06/14/21 [History Confirmed 10/12/21] omega 8-vxy-wkp-fish oil 1,200 mg (144 mg-216 mg) capsule [...] Thin but not cachectic. Son acts as pin machine tender. HEAD / FACE: Normocephalic. EYES: Pupils are [...] techniques: Automated exposure control, adjustment of the mAand/or kVaccording to patient size, or use of [...] 1.3 cm. These nodes have increased in size.The lower thoracic and lumbar spine demonstrate degenerative changes and curvature. There is a T9 ve rtebral body compression fracture which was not present at the time of the prior exam. No abdominalwall abnormality is noted. CT/CT abdomen pelvis w [...] in a [facility]. [place] visit 10/12/[address] Fernandez [...] physical and exam and review of records andimaging. (2) Compression fracture of T9 vertebra Qualifiers: Encounter type: subsequent encounter Noted on prior imaging and may be related to prior fall although PET/CT to evaluate whether this could have been a pathologic compression fracture. (3) Depression The patient previously described depressive type symptoms. She is no longer in [place] [facility] and moved back into her home with [...] for coordination of care (as documented) and lnbx-or-frjo counseling of patient and/or family. Dictated By: Bonnie Hendricks MD DD/ 1153 Signed By: <Electronically signed by MD Bonnie Hendricks> 10/13/21 1122 [facility] Work Phone: [phone]) 809-431001-12-2022 Evaluation note* Encounter Date Diagnosis Assessment Notes Treatment Notes Treatment Clinical Notes Jun, Other specified postprocedural s tates (ICD-10 - Z98.890) Jun,losed fracture of head of right femur with routine healing, subsequent encounter (ICD-10 - S72.051D) Sabi is here today about 2 months s/p right hip hemiarthroplasty for FNF. At this juncture we have discussed the findings and diagnosis as well as personally reviewed appropriate imaging and performed interpretation of related testing and examination with the patient in [facility]. [facility] that she is [facility]ulating [...] Instructed patient to continue with physical therapy. Jun,therSee orders for this visit as documented in the electronic medical record. [employer] Other 12-28-2021 Progress note Author Rachid Fernandez [facility] June 14, 2021 11:33amNote Date/TimeDecember 2020 11:28[facility] [place] [address] Hem/Onc Follow Up Note - OP Signed Patient: Sabi Santamaria MR#: [id number] : 1945 Acct:[id number] Age/Sex: 76 / F Type: REG RCR Copies to: Merrill Bledsoe MD~ Subjective Date/Time of Service: Date of [...] daughter presents with her. She is her pin machine tender. The patient had a hysterectomy at [facility]. I was told previously this was in [place]. Supposedly this was for uterine cancer. I do not know she had an oophorectomy. Below is the recent summary of findings while she was admitted after the hip fracture: Interval History: CA-125 is normal. Urology note and procedure is noted. Her CT scan is reviewedbelow: Patient: Sabi Santamaria MR#: [id number] : 1945 Acct:[id number] Age/Sex: 76 / F ADM Date: 1 Loc: 4N Room: 7I5091-9 Type: ADM IN Attending Dr: Jayden Abad MD Ordering Provider: Jose Lewis MD Date of Service: 04/25/21 CT/CT abdomen [...] following dosereduction techniques: Automated exposure control, adjustment ofthe mA and/or kVaccording to patient size, or use of iterative reconstruction technique. COMPARISON: None. FINDINGS: Images of the lower chest demonstrate a small hiatal hernia. The liver, spleen, pancreas,and both adrenal glands appear unremarkable. No renal [...] 2.4 by 4.0 cm soft tissue mass inthe pelvis on the left. Possibilities include a prominent ovary and an enlarged iliac chain lymph node. No acute intestinal abnormality is identified. The appendix is surgically absent. No freeintra-abdominal air or ascites is seen. The lower thoracic and lumbar spine demonstrate degenerative changes and curvature. There is spondylolisthesis at the lumbosacral junction. A right hip replacement isnoted. CT/CT abdomen pelvis wo/w con IMPRESSION: 1. [...] and possibilities radiographically included a prominent ovary orenlarged lymph nodes. We could consider PET/CT as an outpatient and ifnegative, observation. If it would have increased metabolic activity we could consider biopsy and likely this would be done either laparoscopically or throughIR. At this point I will follow with you. This is a 76-year-old female who does not speak Singaporean. She was found down on the floor after stroke. She has a history of a history of hysterectomy or some type of gynecologic surgery in [place] in the distant past. Her CT scan shows either a left-sided pelvic mass or left sided enlarged ovary. CA-125 is currently pending. As above she does not speak Singaporean. An buhr dresser is not inthe room. Her CT and reports are reviewed. She had a right femoral head fracture and is status post surgery. She is recovering well. Subjective/ROS - Narrative: She appears to be healing well. Talking with her daughter today the patient appears to be depressed. She is asking for medication. [facility] - Medical History Medical History: Medical History (Last Reviewed 04/29/21 @ 18:57 by JAZLYN Singh) Chronic low back pain Constipation GERD (gastroesophageal reflux disease) Hypertension Neck pain Osteoarthritis Ovarian cancer Stroke UTI (urinary tract infection) - Surgical History Surgical History: Surgical History (Last Reviewed 04/29/21 @ 18:57 by JAZLYN Sinhg) History of hysterectomy Total knee replacement status [...] bisacodyl 10 mg rectal suppository 10 mg AL DAILY PRN #0 ea 05/23/21 [Rx] carvedilol [...] which is evident. Psychiatric exam is normal essentially.Neurological exam is grossly intact. - ECOG Performance Status ECOG Score: 3 Assessment and Plan (1) Pelvic mass Patient is 76 years old and presents after stroke and hip fracture. CT scan of the abdomen and pelvis showed a 4 cm mass near the left ovary. At this time I like to review her operative and pathological findings from [facility] where she has surgery. I reviewed the [...] physician for therapy. I have also recommended theycall the lutheran and have communion given to her as she has not had this for some time now. - Time with Patient Coordination of Care & Counseling Time: Greater than 50% of time spent with patient was for coordination of care (as documented) and vfuf-vu-yjda counseling of patient and/or family. Dictated By: Rachid Fernandez MD DD/ 1126 Signed By: <Electronically signed by MD Rachid Fernandez> 06/14/21 1133 [facility] Work Phone: [phone]) 633-980205-22-2007 History general Narrative - Reported* Type Description Date Medical History Rheumatoid arthritis Medical HistoryhypertensionMedical HistoryarthritisMedical HistorycancerSurgical HistoryL knee scope SBS11/06/2006Surgical HistoryhysterectomySurgical History bone spurs usama. heelsSurgical HistoryL TKA JAB01/27/2019 [facility] Other Evaluation noteNo InformationNort [employer] Other Evaluation note* Diagnosis Onset Date Resolution Status Compression fracture of T9 vertebra chronicDepressionchronicPelvic masschronicS/P hip hemiarthroplastychronic [facility]schemic [facility]resT[facility] Work Phone: Evaluation note* Diagnosis Onset Date Resolution Status Bowel wall thickening chronicCompression fracture of T9 vertebrachronicDepressionchronicNon-Singaporean speaking patientchronicPelvic masschronicS/P hip hemiarthroplastychronicIschemic strokeresTwin City Hospital Work Phone: Evaluation note* Diagnosis Onset Date Resolution Status Bowel wall thickening chronicCompression fracture of T9 vertebrachronicDepressionchronicNon-Singaporean speaking patientchronicPelvic masschronicS/P hip hemiarthroplastychronicIschemic strokeresolvedBowel wall thickeningchronicNon-Singaporean speaking patientchronic Pelvic masschronicS/P hip hemiarthroplastychronicIschemic strokeresolved [facility] Work Phone: Evaluation note* Diagnosis Ischemic stroke (CMS/HCC)- Primary Paresthesia Disturbance of skin sensation Hyperlipidemia, unspecified hyperlipidemia type (CMS/HCC) Primary hypertension (CMS/HCC) Unspecified essential hypertension Gait instability Abnormality of gait 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 documented in this encounter [facility] Healthcare[facility] note* Diagnosis Ischemic stroke (CMS/HCC)- Primary Paresthesia Disturbance of skin sensation Hyperlipidemia, unspecified hyperlipidemia type (CMS/HCC) Primary hypertension (CMS/HCC) Unspecified essential hypertension Gait instability Abnormality of gait 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 documented in this encounter [facility] HealthcareEvaluation note* Diagnosis Ischemic stroke (CMS/HCC) documented in this encounter [facility] Healthcare[facility]* Diagnosis Onset Date Resolution Status Admit Date Bowel wall thickening chronicJuly 2024 2:46pmCompression fracture of T9 vertebrachronicJuly 2024 2:46pmDepressionchronicJuly 2024 2:46pmNon-Singaporean speaking patientchronicJuly 2024 2:46pmPelvic masschronicJuly 2024 2:46pmS/P hip hemiarthroplastychronicJuly 2024 2:46pmIschemic strokeresolvedJuly 2024 2:46pmBowel wall thickeningchronicJuly 2024 2:46pmNon-Singaporean speaking patientchronicJuly 2024 2:46pmPelvic masschronicJuly 2024 2:46pmS/P hip hemiarthroplastychronicJuly 2024 2:46pmIschemic stroke resolvedJuly 2024 2:46pm [facility] Work Phone: Progress note Author Bonnie Hendricks [facility] January 14, 2022 12:30pmNote Date/TimeJuly 2021 2:33pm[facility] [place] [id number] Hem/Onc Follow Up Note - OP Signed Patient: Sabi Santamaria MR#: [id number] : 1945 Acct:[id number] Age/Sex: 76 / F Type: REG RCR Copies to: Merrill Bledsoe MD~ Subjective Date/Time of Service: Date of Service: 01/13/2022 Time of Service: 14:32 Chief Complaint: Patient is here for a follow up visit for pelvic mass and had alymph node biopsy ultrasound. She also was at [facility] for bowel obstruction and didnot have to do surgery and is doing well HPI: 01/13/2022: Sabi is accompanied by her daughter who acts as her pin machine tender. [facility] for a bowel obstruction about 3 weeks [...] CT abdomen pelvis. She may return sooner ifshe has new symptomatic pain or distention. The patient and her daughter are in agreement with thisplan over this moderate complexity 35-minute visit. 10/12/2021: This patient is primarily Lithuanian-speaking and is accompanied by mary grace who acts as her pin machine tender. She is here for transfer of care from Dr. Fernandez who has left the practice. She was hospitalized in early April 2021 for fractured right hip--s/p hemiarthroplasty 04/21/2022. Prior hysterectomy in the early at [facility], ovaries intact. During that hospital stay she [...] bony metastatic disease given the T9 vertebral compr ession and whether there is activity within the left adnexal mass. She will follow-up by phone withme this week and we will determine whether [...] daughter presents with her. She is her pin machine tender. The patient had a hysterectomy at [facility]. I was told previously this was in [place]. Supposedly this was for uterine cancer. I do not know she had an oophorectomy. Below is the recent summary of findings while she was admitted after the hip fracture: Interval History: CA-125 is normal. Urology note and procedure is noted. Her CT scan is reviewedbelow: Patient: Sabi Santamaria MR#: [id number] [id number] : 1945 Acct:[id number] Age/Sex: 76 / F ADM Date: 1 Loc: 4N Room: [address] [place] [address] Type: ADM IN Attending Dr: Jayden Abad MD Ordering Provider: Jose Lewis MD Date of Service: 04/25/21 CT/CT abdomen pelvis wo/w con: hematuria CT abdomen and pelvis 04/25/2021. CLINICAL DATA: Hematuria. TECHNIQUE: CT of the abdomen and pelvis was performed both without and with intravenous contrast. Axial, sagittal, and coronal reconstructions were created and reviewed. This CT exam was performed using one or more of the following dosereduction techniques: Automated exposure control, adjustment ofthe mA and/or kVaccording to patient size, or use of iterative reconstruction technique. COMPARISON: None. FINDINGS: Images of the lower chest demonstrate a small hiatal hernia. The liver, spleen, pancreas,and both adrenal glands appear unremarkable. No renal [...] 2.4 by 4.0 cm soft tissue mass inthe pelvis on the left. Possibilities include a prominent ovary and an enlarged iliac chain lymph node. No acute intestinal abnormality is identified. The appendix is surgically absent. No freeintra-abdominal air or ascites is seen. The lower thoracic and lumbar spine demonstrate degenerative changes and curvature. There is spondylolisthesis at the lumbosacral junction. A right hip replacement isnoted. CT/CT abdomen pelvis wo/w con IMPRESSION: 1. [...] and possibilities radiographically included a prominent ovary orenlarged lymph nodes. We could consider PET/CT as an outpatient and ifnegative, observation. If it would have increased metabolic activity we could consider biopsy and likely this would be done either laparoscopically or throughIR. At this point I will follow with you. This is a 76-year-old female who does not speak Singaporean. She was found down on the floor after stroke. She has a history of a history of hysterectomy or some type of gynecologic surgery in [place] in the distant past. Her CT scan shows either a left-sided pelvic mass or left sided enlarged ovary. CA-125 is currently pending. As above she does not speak Singaporean. An buhr dresser is not in the room. Her CT [...] for abdominal pain, constipation, decreased appetite,diarrhea, nausea orvomiting. Recent hospitalization for bowel obstruction, nonsurgical intervention with resolution ofsymptoms. GENITOURINARY: Negative for dysuria and hematuria. Denies [...] for environmental allergies and food allergies. [facility] - History Attestation statement: The following information [...] bisacodyl 10 mg rectal suppository 10 mg AL DAILY PRN Constipation #0 ea 05/23/21 [Rx [...] PO DAILY 06/14/21 [History Confirmed 11/09/21] omega 3-maq-pzj-fish oil 1,200 mg (144 mg-216 mg) capsule [...] Thin but not cachectic. Daughter acts as pin machine tender. HEAD / FACE: Normocephalic. EYES: Pupils are [...] device was utilized with ultrasound guidance. 3 18- gauge core samples were obtained. No immediate complications. [...] a [facility]ci. 10/12/2021: [place] with initial visit 10/12/[address] Fernandez is no longer withthe practice. She has not been seen by anybody for the pelvic mass since his initial discovery in April 2021. She does not haveany pelvic pain or distention. The patient's son who acts as her translater wasunaware that she had a pelvic mass and we discussed her CT results as well as reviewed theimages today. Since she did have enlargement of [...] by hospitalization for small bowel obstruction at [facility] which resolved with NG tube and no surgical intervention. We did review the results of her fine-needle aspiration of left groin lymph node showing no evidence of metastatic disease in fragmented lymphoid tissue. No lymphoproliferative disorder on flow cytometry. We decidedin absence of current symptoms and negative biopsy that we will defer next follow- up with CBC, CMP, CA 125, and CT [...] type symptoms. [place] [facility] [place] [facility] and moved back into her home with [...] for coordination of care (as documented) and aobp-dp-gxpf counseling of patient and/or family. Dictated By: Bonnie Hendricks MD DD/ 1432 Signed By: <Electronically signed by MD Bonnie Hendricks> 01/14/22 1230 [facility] Work Phone: Progress note Author Bonnie Hendricks [facility] May 31, 2022 4:00pmNote Date/TimeDecemb2021 2:47pmChrist[facility] [place] [id number] Hem/Onc Follow Up Note - OP Signed Patient: Sabi Santamaria MR#: [id number] : 1945 Acct:[id number] Age/Sex: 77 / F Type: REG RCR Copies to: Merrill Bledsoe MD~ Subjective Date/Time of Service: Date of Service: 05/31/2022 Time of Service: 14:46 Chief Complaint: Patient is here today for 5 month follow up visit and go over labs and CT scan. Nonew concerns HPI: 05/31/2022: Sabi is here for about 4 month followup with daughter who acts as her pin machine tender. Since last visit patient has not had [...] with limited ability to speak and understand Singaporean. 01/13/2022: Sabi is accompanied by her daughter who acts as her pin machine tender. [facility] for a bowel obstruction about 3 weeks [...] CT abdomen pelvis. She may return sooner ifshe has new symptomatic pain or distention. The patient and her daughter are in agreement with thisplan over this moderate complexity 35-minute visit. 10/12/2021: This patient is primarily Lithuanian-speaking and is accompanied by mary grace who acts as her pin machine tender. She is here for transfer of care from Dr. Fernadnez who has left the practice. She was hospitalized in early April 2021 for fractured right hip--s/p hemiarthroplasty 04/21/2022. Prior hysterectomy in the early at [facility], ovaries intact. During that hospital stay she [...] bony metastatic disease given the T9 vertebral compr ession and whether there is activity within the left adnexal mass. She will follow-up by phone withme this week and we will determine whether [...] daughter presents with her. She is her pin machine tender. The patient had a hysterectomy at [facility]. I was told previously this was in [place]. Supposedly this was for uterine cancer. I do not know she had an oophorectomy. Below is the recent summary of findings while she was admitted after the hip fracture: Interval History: CA-125 is normal. Urology note and procedure is noted. Her CT scan is reviewedbelow: Patient: Sabi Santamaria MR#: [id number] : 1945 Acct:[id number] Age/Sex: 76 / F ADM Date: 1 Loc: Room: [address] [place] [address] Type: ADM IN Attending Dr: Jayden Abad MD Ordering Provider: Jose Lewis MD Date of Service: 04/25/21 CT/CT abdomen pelvis wo/w con: hematuria CT abdomen and pelvis 04/25/2021. CLINICAL DATA: Hematuria. TECHNIQUE: CT of the abdomen and pelvis was performed both without and with intravenous contrast. Axial, sagittal, and coronal reconstructions were created and reviewed. This CT exam was performed using one or more of the following dosereduction techniques: Automated exposure control, adjustment ofthe mA and/or kVaccording to patient size, or use of iterative reconstruction technique. COMPARISON: None. FINDINGS: Images of the lower chest demonstrate a small hiatal hernia. The liver, spleen, pancreas,and both adrenal glands appear unremarkable. No renal [...] 2.4 by 4.0 cm soft tissue mass inthe pelvis on the left. Possibilities include a prominent ovary and an enlarged iliac chain lymph node. No acute intestinal abnormality is identified. The appendix is surgically absent. No freeintra-abdominal air or ascites is seen. The lower thoracic and lumbar spine demonstrate degenerative changes and curvature. There is spondylolisthesis at the lumbosacral junction. A right hip replacement isnoted. CT/CT abdomen pelvis wo/w con IMPRESSION: 1. [...] and possibilities radiographically included a prominent ovary orenlarged lymph nodes. We could consider PET/CT as an outpatient and ifnegative, observation. If it would have increased metabolic activity we could consider biopsy and likely this would be done either laparoscopically or throughIR. At this point I will follow with you. This is a 76-year-old female who does not speak Singaporean. She was found down on the floor after stroke. She has a history of a history of hysterectomy or some type of gynecologic surgery in [place] in the distant past. Her CT scan shows either a left-sided pelvic mass or left sided enlarged ovary. CA-125 is currently pending. As above she does not speak Singaporean. An buhr dresser is not in the room. Her CT and reports are reviewed. She had a right femoral head fracture and is status post surgery. She is recovering well. - Summary of Therapies Summary of Therapies: 1. History of a history of hysterectomy or some type of gynecologic surgery in [facility] about 1979, ovaries intact--unclear prior pathology. She was informed of the past that she had ovarian cancer. ROS Details: All systems reviewed & no additional complaints except as documented Subjective/ROS - Narrative: CONSTITUTIONAL: Unchanged mild fatigue, negative for fever or night sweats. Weight stable from lastvisit in December. Previously decreased 10 kg from September toJuly 2021, likely related to hospitalizationfor bowel obstruction. Patient's daughter states that she has returned to eating normal diet. HEAD AND NECK: Negative for changes in hearing and vision. Negative for mouth ulcers, nasal congestion and nasal drainage. PULMONARY: Negative for chest pain, cough and dyspnea. CARDIOVASCULAR: Negative for claudication and irregular heartbeat/palpitations. GASTROINTESTINAL: Negative for abdominal pain, constipation, decreased appetite,diarrhea, nausea orvomiting. Recent hospitalization for bowel obstruction, nonsurgical intervention with resolution ofsymptoms. GENITOURINARY: Negative for dysuria and hematuria. Denies [...] History (Last Reviewed 05/31/22 @ 15:50 by Bnonie Hendricks MD) Chronic low back pain Constipation [...] bisacodyl 10 mg rectal suppository 10 mg AL DAILY PRN Constipation #0 ea 05/23/21 [Rx [...] PO DAILY 06/14/21 [History Confirmed 05/31/22] omega 8-gvl-kbi-fish oil 1,200 mg (144 mg-216 mg) capsule [...] Thin but not cachectic. Daughter acts as pin machine tender. HEAD / FACE: Normocephalic. EYES: Pupils are [...] is grossly unremarkable. Small bowel appears nondilated. Noacute colonic abnormality. Questionable thickening involving the distal rectum anal canal. Pelvis: Post surgical changes. Uterus has been removed. Urinary bladder is distended without focal abnormality. Left adnexal lesion measuring 4.0 x 2.8 cm similar to the prior study. Peritoneum/Retroperitoneum:No free air, free fluid or lymphadenopathy. No definite omental or peritoneal disease. Abd wall/Bones:Abdominal wall diffusely acute findings. Osseous structures demonstrate degenerativechange. CT/CT abdomen pelvis w con IMPRESSION: Stable [...] a [facility]ci. 10/12/2021: [place] with initial visit 10/12/[address] Fernandez is no longer withthe practice. She has not been seen by [...] right external iliac lymph node and right inguinallymph nodes (although not palpable on exam) we will evaluate with PET/CT to see if there is FDG avidity in these areas. Based on this result I will follow-up with her daughter or son by phone to revie w the PET/CT results and to determine appropriate [...] by hospitalization for small bowel obstruction at [facility] which resolved with NG tube and no surgical intervention. We did review the results of her fine-needle aspiration of left groin lymph node showing no evidence of metastatic disease in fragmented lymphoid tissue. No lymphoproliferative disorder on flow cytometry. We decidedin absence of current symptoms and negative biopsy that we will defer next follow- up with CBC, CMP, CA 125, and CT abdomen and pelvis to 4 months, sooner if she has new symptoms arise. Patient and daughter in agreement with this plan. 05/31/2022: Kelly Oneil presents with her adxpldsv-jg-sph for follow-up. She no longer has any abdominal pain or distention and is eating a normal diet with no further episodes of small bowel obstruction. She does not have any detectable adenopathy by exam or by restaging 05/16/2022 CT abdomen and pelvis reviewed with the patient and her dsvzjent-dw-fsy today. She has unchanged cyst of the left kidney. She has no evidence of bowel obstruction although there is questionable thickening involving the distal rectum and anal canal. She was previously referred to gastroenterology but did not show upfor the appointment. In the absence of symptoms we will defer colonoscopy and repeat imaging in 6 mo nths. The left adnexal lesion identified on previous [...] develops clinical adenopathy. The patient and her ftdaygew-wn-icb are in agreement with this plan over [...] type symptoms. [facility] [place] [facility] and moved back into her home with [...] hematochezia. For now we will follow with symptomsand serial imaging. (7) Non-Singaporean speaking patient Patient expressed understanding and was able to give review of systems with limited Singaporean. Different family members served as translators and if we change manager we will obtain a translation service for her follow-up appointments. - Time with Patient Time Spent with Patient (Follow Up Visit): 35 minutes - Review restaging images and reports, repeatCa 125, symptoms and exam, surveillance plan Coordination of Care & Counseling Time: Greater than 50% of time spent with patient was for coordination of care (as documented) and brbf-lv-ezic counseling of patient and/or family. Dictated By: Bonnie Hendricks MD DD/ [id number] Signed By: <Electronically signed by MD Bonnie Hendricks> 05/31/22 [address] [facility] Work Phone: Reqntx for referral (narrative)No reason for referral information availableC[facility] Work Phone: reason for visit Narrative* Other Medical (Routine) - ClosedSpecialtyDiagnoses / ProceduresReferred By ContactReferred To Contact Radiology Diagnoses Ischemic stroke (CMS/HCC) Procedures Vascular US carotid artery duplex bilateral Debra Leon NP [address] [place] [phone] Phone: tel: Referral IDStatusReasonStart DateExpiration DateVisits RequestedVisits [id number]/ [facility] Summary Purpose Family History No Family History Records Found Relationship Condition Age at Onset Recorded Date/T jorge luis sister Malignant neoplasm of ovary Unknown grandparentMalignant neoplasm of liverUnknown Relationship Condition Age at Onset Recorded Date/T jorge luis sister Malignant neoplasm of ovary Unknown grandparentMalignant neoplasm of liverUnknownmotherHeart diseaseUnknown Advance Directives No Advanced Directives Records Found [...] g Compression fracture of T9 vertebra Depression Non-Singaporean speaking patient Pelvic mass S/P hip hemiarthroplasty Ischemic stroke Chief Complaint PET SCAN F/U Reason for Visit Bowel wall thickenin g Compression fracture of T9 vertebra Depression Non-Singaporean speaking patient Pelvic mass S/P hip hemiarthroplasty Ischemic stroke Bowel wall thickening Non-Singaporean speaking patient Pelvic mass S/P hip hemiarthroplasty Ischemic stroke Chief Complaint Admit Date Unknown December 03, 2024 7:08 pm 1 yr f/u after CT December 31, 2024 2:46 pm Reason for Visit Admit Date Bowel wall thickening December 31, 2024 2: 46pm Compression fracture of T9 vertebra December 31, 2024 2:46pm Depression December 31, 2024 2:46 pm Non-Singaporean speaking patient December 31, 2024 2:46pm Pelvic mass December 31, 2024 2:46 pm S/P hip hemiarthroplasty December 31, 2024 2:46pm Ischemic stroke December 31, 2024 2:46 pm Chief Complaint Admit Date Unknown December 03, 2024 7:08 pm 1 yr f/u after CT December 31, 2024 2:46 pm Unknown January 27, 2025 4: 20pm Reason for Visit Admit Date Bowel wall thickening December 31, 2024 2: 46pm Compression fracture of T9 vertebra December 31, 2024 2:46pm Depression December 31, 2024 2:46 pm Non-Singaporean speaking patient December 31, 2024 2:46pm Pelvic mass December 31, 2024 2:46 pm S/P hip hemiarthroplasty December 31, 2024 2:46pm Ischemic stroke December 31, 2024 2:46 pm History of ischemic stroke December 31 2:46pm Reason for Referral SpecialtyDiagnoses / ProceduresReferred By ContactReferred To ContactRadiology Diagnoses Ischemic stroke ([facility]) Procedures Vascular US carotid artery duplex bilateral Debra Leon NP [address] [phone] Referral IDStatusReasonStart DateExpiration DateVisits RequestedVisits [id number] Additional Source Comments INFORMATION SOURCE (unrecogn ized section and content) DATE CREATED AUTHOR 09/11/2021 [facility] DATE CREATED AUTHOR AUTHOR'S ORGANIZ ATION 01/19/2022 [facility] DATE CREATED AUTHOR AUTHOR'S ORGANIZ ATION 09/20/2022 [facility] DATE CREATED AUTHOR AUTHOR'S ORGANIZ ATION 05/01/2024 [facility] DATE CREATED AUTHOR AUTHOR'S ORGANIZ ATION 12/08/2024 [facility] DATE CREATED AUTHOR AUTHOR'S ORGANIZ ATION 01/29/2025 [facility] REASON FOR VISIT (unrecogniz ed section and content) ReasonCommentsFollow-upReasonCommentsTinglingHistory of stroke Care Teams (unrecognized sec tion and content) Team Status: Active Member Role Status Dates Merrill Bledsoe MD Primary Care Provider Active Team Status: Inactive Member Role Status Dates Bonnie Hoover PA-C Attending Provider Active Sta rt: December 03, 2024 End: December 03, 2024 Team Status: Inactive Member Role Status Dates Bonnie Hendricks MD Attending Provider Active Start: December 31, 2024 End: December 31, 2024[facility] Care ProviderActiveStart: December 31, 2024 End: December 31, 2024 Team Status: Active Member Role Status Dates Merrill Bledsoe MD Primary Care Provider Active Jez Castano MDAttending ProviderActive Team Status: Active Member Role Status Dates Merrill Bledsoe MD Primary Care Provider Active Start: December 13, 2023 Jennifer CastanoStart: December 13, 2023 Anel Lucero ProviderActiveStart: December 13, 2023 Team Status: Inactive Member Role Status Dates Merrill Bledsoe MD Primary Care Provider Active Start: December 13, 2023 End: December 12Anel Bowles ProviderActiveStart: December 13, 2023 End: December 13, 2023 Team Status: Inactive Member Role Status Dates Merrill Bledsoe MD Attending Provider Active Sta rt: January 27, 2025 End: January 27, 2025 Goals (unrecognized section and content) Goals may [...] BE BASED ON THE PRIMARY CLINICAL RECORDS. [facility] [employer] provides no warranty or guarantee of the accuracy or completeness of information in this document.
--- OUTSIDE RECORDS SUMMARY | 2025-06-14 20:03 | XMS_ITS | Clinical Summary ---
Author Organization [facility] Address [address] [place] [address] Care Team Providers Care Infusion Nurse Name Role Phone Unavailable Primary Care Provider Unavailabl e Social History Tobacco UseTypesPacks/DayYears UsedDateSmoking Tobacco: Never AssessedUT Safety & EnvironmentAnswerDate RecordedFear of Current or Ex-PartnerNot on file 08/09/2023Emotionally AbusedNot on file08/09/2023hysically AbusedNot on file 08/09/2023Sexually AbusedNot on file08/09/2023hysically or Sexually AbusedNot on file08/09/2023CommentsUnknownSex and Gender InformationValueDate RecordedSex Assigned at BirthNot on fileLegal IsuOptccz32/05/2022 2:09 PM EDT Gender IdentityNot on fileSexual OrientationNot on file Last Filed Vital Signs Vital SignReadingTime TakenCommentsBlood Ytnsayxa65/5508 2:48 PM EDT Yvudh1869 2:48 PM PSOLybsrtozdra55.1 ??C (98.7 ??F)01/18/2022 2:47 PM EDTRespiratory Rate--Oxygen Saturation--Inhaled Oxygen Concentration--Ezykga30.8 kg (131 lb 12.8 oz)01/18/2022 2:45 PM EAWAjsizv731.5 cm (5' 2 )01/18/2022 2:40 PM EDTBody Mass Index24.1108 2:40 PM EDT Plan of Treatment Health MaintenanceDue DateLast DoneCommentsMedicare Annual Wellness (AWV) 1945Depression Udbgudqnl83/31/1958dult Nxhsmis2501/16/1968Pneumococcal Vaccine: 50+ Years (1 of 1 - PCV)01/16/1996Zoster Vaccines (1 of 2)01/16/1996 Fall Risk Whubddbra56/31/2011COVID-19 Vaccine (1 - 2024- season)2025 Influenza Vaccine (#1)2025HIB VaccinesAged OutNo longer eligible based on patient's age to complete this topicHPV VaccinesAged OutNo longer eligible based on patient's age to complete this topicIPV VaccinesAged OutNo longer eligible based on patient's age to complete this topicMeningococcal B VaccineAged OutNo longer eligible based on patient's age to complete this topicMeningococcal VaccineAged OutNo longer eligible based on patient's age to complete this topic Rotavirus VaccinesAged OutNo longer eligible based on patient's age to complete this topic Insurance
--- OUTSIDE RECORDS SUMMARY | 2025-06-14 20:04 | XMS_ITS | Clinical Summary ---
Author Organization [facility] Address [address] [phone] Phone Care Team Providers Care Assistant Secretary Name Role Phone Unavailable Primary Care Provider Unavailabl e Social History Tobacco UseTypesPacks/DayYears UsedDateSmoking Tobacco: Never Assessed CommentsUnknownSex and Gender InformationValueDate RecordedSex Assigned at Not on fileLegal MrcVdwfhd36/25/2022 11:59 AM ESTGender IdentityNot on file Sexual OrientationNot on file Plan of Treatment Not on file
--- OUTSIDE RECORDS SUMMARY | 2025-06-14 20:04 | XMS_ITS | Patient Health Record ---
Author Organization The [facility] in [place] Address [address] [place] [address] Care Team Providers Care Bundle Cutter Name Role Phone Real Doherty Primary Care Provider Allergies No Known Allergies Results Component Value Reference Range Notes UA DIP NONAUTO WO MICRO (810 02) - IN OFFICE Reviewed date:01/26/2025 03:50:10 PM Interpretation: Performing Lab: Notes/Report: COLOR Yellow CLARITYClearGLUCOSENegBILIRUBINNegKETONENegSPECIFIC GRAVITY1.010BLOOD+DT6UDMRZLX +UROBILINOGENNegNITRITENegLEUKOCYTE ESTERASE+++PROF 14(COMP METB) Reviewed date:07/08/2024 03:28:50 PM Interpretation: Performing Lab: Notes/Report: [facility] ,[id number] mmol/LPotassium4.03.5-5.1 mmol/KCszqqvpz0720-437 mmol/LCarbon Btkwbip36.021.0-32.0 mmol/LAnion Gap15.6Hbpdzud17512-515 mg/dLBlood Urea Hponkvai86.07.0-18.0 mg/dLCreatinine0.900.55-1.02 mg/dLEstimated GFR ( Isela>60>=60 mL/min/1.73m 2Estimated GFR (Non- Beronica>60>=60 mL/min/1.73m 2BUN Creatinine Ratio18.2Wsvvenw1.28.5-10.1 mg/dLBilirubin Total1.20.2-1.0 mg/dL Aspartate Amino Ibneadoahxx1605-44 U/LAlanine Xsbaamwdmgjdhkij6316-01 U/L Alkaline Brnqnookqda25433-840 U/LTotal Protein8.26.4-8.2 g/dLAlbumin Level3.4 3.4-5.0 g/dLGlobulin4.8Albumin Globulin Ratio0.7Performing Lab:see note - [facility] LBTSH Reviewed date:07/08/2024 03:28:51 PM Interpretation: Performing Lab: Notes/Report: [facility] ,Thyroid Stimulating Hormone0.7960.358-3.740 uIU/mLPerforming Lab:see note - [facility] LBProthrombin Time INR Reviewed date:07/08/2024 03:28:51 PM Interpretation: Performing Lab: Notes/Report: [facility] ,Prothrombin Time12.09.0-11.6 secINR1.15 DESIRED INR: 2.5-3.5 RECURRENT THROMBOSIS 2.5-3.5 FOR PROSTHETIC HEART VALVE REPLACEMENT 2.0-3.0 CONDITIONS NOT LISTED BELOW Performing Lab:see note - [facility] LBTroponin I High Sensitivity Reviewed date:07/08/2024 03:28:51 PM Interpretation: Performing Lab: Notes/Report: [facility] ,Troponin I High Orzkirhfzjd605.44.0-51.3 pg/mL REFERENCE LIMIT (URL) OF TROPONIN, DEFINED THE 99TH NOTE: HIGH-SENSITIVITY TROPONIN ASSAY IS NOT INTENDED TO BE USED IN ISOLATION BUT SHOULD BE INTERPRETED IN CONJUNCTION CUT-OFF POINTS HAVE BEEN ESTABLISHED BASED ON THE FOURTH HAS BEEN CONFIRMED THE DECISION THRESHOLD FOR NH PERCENTILE OF cTnI DISTRIBUTION IN A REFERENCE POPULATION, RESULTS CALLED TO CHAZ STALLINGS at 1437 WITH OTHER DIAGNOSTIC AND CLINICAL INFORMATION. UNIVERSAL DEFINITION OF MYOCARDIAL INFARCTION. THE UPPER DIAGNOSIS. 99TH PERCENTILE = 51.4 PG/ML Performing Lab:see note - [facility] LBUrine Culture, Routine Reviewed date:07/13/2024 12:46:23 PM Interpretation: Performing Lab: Notes/Report: [facility] ,Urine Culture, RoutineSee Below For Report Antibiotic Interpretation MAHENDRA Status O:GNR Isolated O:ENTFAC Isolated Antibiotic Interpretation MAHENDRA Status O:KLEBPN Organism: 1.1 Organism: 1.3 Organism: Gram negative paul : Isolated Urine Culture, Routine Urine Culture, Routine*ABNORMAL* Antibiotic Interpretation MAHENDRA Status O:GNR Isolated O:ENTFAC Isolated Antibiotic Interpretation MAHENDRA Status O:KLEBPN Organism: 1.1 Organism: 1.3 Organism: Gram negative paul : Isolated Urine Culture, Routine Urine Culture, Pvxmmzi04,000-25,000 colony forming units per mL Antibiotic Interpretation MAHENDRA Status O:GNR Isolated O:ENTFAC Isolated Antibiotic Interpretation MAHENDRA Status O:KLEBPN Organism: 1.1 Organism: 1.3 Organism: Gram negative paul : Isolated Urine Culture, Routine Urine Culture, Routine Antibiotic Interpretation MAHENDRA Status O:GNR Isolated O:ENTFAC Isolated Antibiotic Interpretation MAHENDRA Status O:KLEBPN Organism: 1.1 Organism: 1.3 Organism: Gram negative paul : Isolated Urine Culture, Routine Urine Culture, RoutineGrowth observed. Further testing to rule out possible pathogen(s) Antibiotic Interpretation MAHENDRA Status O:GNR Isolated O:ENTFAC Isolated Antibiotic Interpretation MAHENDRA Status O:KLEBPN Organism: 1.1 Organism: 1.3 Organism: Gram negative paul : Isolated Urine Culture, Routine Urine Culture, Routineis in progress. Antibiotic Interpretation MAHENDRA Status O:GNR Isolated O:ENTFAC Isolated Antibiotic Interpretation MAHENDRA Status O:KLEBPN Organism: 1.1 Organism: 1.3 Organism: Gram negative paul : Isolated Urine Culture, Routine Urine Culture, RoutineGram negative paul Antibiotic Interpretation MAHENDRA Status O:GNR Isolated O:ENTFAC Isolated Antibiotic Interpretation MAHENDRA Status O:KLEBPN Organism: 1.1 Organism: 1.3 Organism: Gram negative paul : Isolated Urine Culture, Routine Urine Culture, RoutineOrganism: Klebsiella pneumoniae. : Antibiotic Interpretation MAHENDRA Status O:GNR Isolated O:ENTFAC Isolated Antibiotic Interpretation MAHENDRA Status O:KLEBPN Organism: 1.1 Organism: 1.3 Organism: Gram negative paul : Isolated Urine Culture, Routine Urine Culture, Routine*ABNORMAL* Antibiotic Interpretation MAHENDRA Status O:GNR Isolated O:ENTFAC Isolated Antibiotic Interpretation MAHENDRA Status O:KLEBPN Organism: 1.1 Organism: 1.3 Organism: Gram negative paul : Isolated Urine Culture, Routine Urine Culture, RoutineCefazolin <=4 ug/mL Antibiotic Interpretation MAHENDRA Status O:GNR Isolated O:ENTFAC Isolated Antibiotic Interpretation MAHENDRA Status O:KLEBPN Organism: 1.1 Organism: 1.3 Organism: Gram negative paul : Isolated Urine Culture, Routine Urine Culture, RoutineCefazolin with an MAHENDRA <=16 predicts susceptibility Antibiotic Interpretation MAHENDRA Status O:GNR Isolated O:ENTFAC Isolated Antibiotic Interpretation MAHENDRA Status O:KLEBPN Organism: 1.1 Organism: 1.3 Organism: Gram negative paul : Isolated Urine Culture, Routine Urine Culture, Routineto the oral agents cefaclor, cefdinir, cefpodoxime, Antibiotic Interpretation MAHENDRA Status O:GNR Isolated O:ENTFAC Isolated Antibiotic Interpretation MAHENDRA Status O:KLEBPN Organism: 1.1 Organism: 1.3 Organism: Gram negative paul : Isolated Urine Culture, Routine Urine Culture, Routinecefprozil, cefuroxime, cephalexin, and loracarbef when Antibiotic Interpretation MAHENDRA Status O:GNR Isolated O:ENTFAC Isolated Antibiotic Interpretation MAHENDRA Status O:KLEBPN Organism: 1.1 Organism: 1.3 Organism: Gram negative paul : Isolated Urine Culture, Routine Urine Culture, Routineused for therapy of uncomplicated urinary tract Antibiotic Interpretation MAHENDRA Status O:GNR Isolated O:ENTFAC Isolated Antibiotic Interpretation MAHENDRA Status O:KLEBPN Organism: 1.1 Organism: 1.3 Organism: Gram negative paul : Isolated Urine Culture, Routine Urine Culture, Routineinfections due to E. coli, Klebsiella pneumoniae, and Antibiotic Interpretation MAHENDRA Status O:GNR Isolated O:ENTFAC Isolated Antibiotic Interpretation MAHENDRA Status O:KLEBPN Organism: 1.1 Organism: 1.3 Organism: Gram negative paul : Isolated Urine Culture, Routine Urine Culture, RoutineProteus mirabilis. Antibiotic Interpretation MAHENDRA Status O:GNR Isolated O:ENTFAC Isolated Antibiotic Interpretation MAHENDRA Status O:KLEBPN Organism: 1.1 Organism: 1.3 Organism: Gram negative paul : Isolated Urine Culture, Routine Urine Culture, Nxherhy42,000-25,000 colony forming units per mL Antibiotic Interpretation MAHENDRA Status O:GNR Isolated O:ENTFAC Isolated Antibiotic Interpretation MAHENDRA Status O:KLEBPN Organism: 1.1 Organism: 1.3 Organism: Gram negative paul : Isolated Urine Culture, Routine Urine Culture, RoutineOrganism: Enterococcus faecalis : Antibiotic Interpretation MAHENDRA Status O:GNR Isolated O:ENTFAC Isolated Antibiotic Interpretation MAHENDRA Status O:KLEBPN Organism: 1.1 Organism: 1.3 Organism: Gram negative paul : Isolated Urine Culture, Routine Urine Culture, Routine*ABNORMAL* Antibiotic Interpretation MAHENDRA Status O:GNR Isolated O:ENTFAC Isolated Antibiotic Interpretation MAHENDRA Status O:KLEBPN Organism: 1.1 Organism: 1.3 Organism: Gram negative paul : Isolated Urine Culture, Routine Urine Culture, RoutineFor Enterococcus species, aminoglycosides (except for Antibiotic Interpretation MAHENDRA Status O:GNR Isolated O:ENTFAC Isolated Antibiotic Interpretation MAHENDRA Status O:KLEBPN Organism: 1.1 Organism: 1.3 Organism: Gram negative paul : Isolated Urine Culture, Routine Urine Culture, Routinehigh-level resistance screening), cephalosporins, Antibiotic Interpretation MAHENDRA Status O:GNR Isolated O:ENTFAC Isolated Antibiotic Interpretation MAHENDRA Status O:KLEBPN Organism: 1.1 Organism: 1.3 Organism: Gram negative paul : Isolated Urine Culture, Routine Urine Culture, Routineclindamycin, and trimethoprim-sulfamethoxazole are not Antibiotic Interpretation MAHENDRA Status O:GNR Isolated O:ENTFAC Isolated Antibiotic Interpretation MAHENDRA Status O:KLEBPN Organism: 1.1 Organism: 1.3 Organism: Gram negative paul : Isolated Urine Culture, Routine Urine Culture, Routineeffective clinically. (CLSI, [id number], 2016) Antibiotic Interpretation MAHENDRA Status O:GNR Isolated O:ENTFAC Isolated Antibiotic Interpretation MAHENDRA Status O:KLEBPN Organism: 1.1 Organism: 1.3 Organism: Gram negative paul : Isolated Urine Culture, Routine Urine Culture, RoutineGreater than 100,000 colony forming units per mL Antibiotic Interpretation MAHENDRA Status O:GNR Isolated O:ENTFAC Isolated Antibiotic Interpretation MAHENDRA Status O:KLEBPN Organism: 1.1 Organism: 1.3 Organism: Gram negative paul : Isolated Urine Culture, Routine Urine Culture, RoutineNote: this isolate is vancomycin-susceptible. Antibiotic Interpretation MAHENDRA Status O:GNR Isolated O:ENTFAC Isolated Antibiotic Interpretation MAHENDRA Status O:KLEBPN Organism: 1.1 Organism: 1.3 Organism: Gram negative paul : Isolated Urine Culture, Routine Urine Culture, RoutineThis information is provided for epidemiologic Antibiotic Interpretation MAHENDRA Status O:GNR Isolated O:ENTFAC Isolated Antibiotic Interpretation MAHENDRA Status O:KLEBPN Organism: 1.1 Organism: 1.3 Organism: Gram negative paul : Isolated Urine Culture, Routine Urine Culture, Routinepurposes only: vancomycin is not among the antibiotics Antibiotic Interpretation MAHENDRA Status O:GNR Isolated O:ENTFAC Isolated Antibiotic Interpretation MAHENDRA Status O:KLEBPN Organism: 1.1 Organism: 1.3 Organism: Gram negative paul : Isolated Urine Culture, Routine Urine Culture, Routinerecommended for therapy of urinary tract infections Antibiotic Interpretation MAHENDRA Status O:GNR Isolated O:ENTFAC Isolated Antibiotic Interpretation MAHENDRA Status O:KLEBPN Organism: 1.1 Organism: 1.3 Organism: Gram negative paul : Isolated Urine Culture, Routine Urine Culture, Routinecaused by Enterococcus. Antibiotic Interpretation MAHENDRA Status O:GNR Isolated O:ENTFAC Isolated Antibiotic Interpretation MAHENDRA Status O:KLEBPN Organism: 1.1 Organism: 1.3 Organism: Gram negative paul : Isolated Urine Culture, Routine Urine Culture, RoutineEnterococcus faecalis Antibiotic Interpretation MAHENDRA Status O:GNR Isolated O:ENTFAC Isolated Antibiotic Interpretation MAHENDRA Status O:KLEBPN Organism: 1.1 Organism: 1.3 Organism: Gram negative paul : Isolated Urine Culture, Routine Urine Culture, RoutineKlebsiella pneumoniae. Antibiotic Interpretation MAHENDRA Status O:GNR Isolated O:ENTFAC Isolated Antibiotic Interpretation MAHENDRA Status O:KLEBPN Organism: 1.1 Organism: 1.3 Organism: Gram negative paul : Isolated Urine Culture, Routine Urine Culture, RoutineSee Below For Report Antibiotic Interpretation MAHENDRA Status O:GNR Isolated O:ENTFAC Isolated Antibiotic Interpretation MAHENDRA Status O:KLEBPN Organism: 1.1 Organism: 1.3 Organism: Gram negative paul : Isolated Urine Culture, Routine Urine Culture, RoutineSee Below For Report Antibiotic Interpretation MAHENDRA Status O:GNR Isolated O:ENTFAC Isolated Antibiotic Interpretation MAHENDRA Status O:KLEBPN Organism: 1.1 Organism: 1.3 Organism: Gram negative paul : Isolated Urine Culture, Routine Urine Culture, RoutineSee Below For Report Antibiotic Interpretation MAHENDRA Status O:GNR Isolated O:ENTFAC Isolated Antibiotic Interpretation MAHENDRA Status O:KLEBPN Organism: 1.1 Organism: 1.3 Organism: Gram negative paul : Isolated Urine Culture, Routine Urine Culture, RoutinePerformed at: [facility] Antibiotic Interpretation MAHENDRA Status O:GNR Isolated O:ENTFAC Isolated Antibiotic Interpretation MAHENDRA Status O:KLEBPN Organism: 1.1 Organism: 1.3 Organism: Gram negative paul : Isolated Urine Culture, Routine Urine Culture, [address] [place], [place] [id number] Antibiotic Interpretation MAHENDRA Status O:GNR Isolated O:ENTFAC Isolated Antibiotic Interpretation MAHENDRA Status O:KLEBPN Organism: 1.1 Organism: 1.3 Organism: Gram negative paul : Isolated Urine Culture, Routine Urine Culture, RoutineLab Director: Adrian Coello PhD, Phone: [phone] Antibiotic Interpretation MAHENDRA Status O:GNR Isolated O:ENTFAC Isolated Antibiotic Interpretation MAHENDRA Status O:KLEBPN Organism: 1.1 Organism: 1.3 Organism: Gram negative paul : Isolated Urine Culture, Routine Urine Culture, RoutineSee Below For Report Antibiotic Interpretation MAHENDRA Status O:GNR Isolated O:ENTFAC Isolated Antibiotic Interpretation MAHENDRA Status O:KLEBPN Organism: 1.1 Organism: 1.3 Organism: Gram negative paul : Isolated Urine Culture, Routine Urine Culture, RoutineCiprofloxacin S F Antibiotic Interpretation MAHENDRA Status O:GNR Isolated O:ENTFAC Isolated Antibiotic Interpretation MAHENDRA Status O:KLEBPN Organism: 1.1 Organism: 1.3 Organism: Gram negative paul : Isolated Urine Culture, Routine Urine Culture, RoutineLevofloxacin S F Antibiotic Interpretation MAHENDRA Status O:GNR Isolated O:ENTFAC Isolated Antibiotic Interpretation MAHENDRA Status O:KLEBPN Organism: 1.1 Organism: 1.3 Organism: Gram negative paul : Isolated Urine Culture, Routine Urine Culture, RoutineNitrofurantoin S F Antibiotic Interpretation MAHENDRA Status O:GNR Isolated O:ENTFAC Isolated Antibiotic Interpretation MAHENDRA Status O:KLEBPN Organism: 1.1 Organism: 1.3 Organism: Gram negative paul : Isolated Urine Culture, Routine Urine Culture, RoutinePenicillin S F Antibiotic Interpretation MAHENDRA Status O:GNR Isolated O:ENTFAC Isolated Antibiotic Interpretation MAHENDRA Status O:KLEBPN Organism: 1.1 Organism: 1.3 Organism: Gram negative paul : Isolated Urine Culture, Routine Urine Culture, RoutineTetracycline R F Antibiotic Interpretation MAHENDRA Status O:GNR Isolated O:ENTFAC Isolated Antibiotic Interpretation MAHENDRA Status O:KLEBPN Organism: 1.1 Organism: 1.3 Organism: Gram negative paul : Isolated Urine Culture, Routine Urine Culture, RoutineVancomycin S F Antibiotic Interpretation MAHENDRA Status O:GNR Isolated O:ENTFAC Isolated Antibiotic Interpretation MAHENDRA Status O:KLEBPN Organism: 1.1 Organism: 1.3 Organism: Gram negative paul : Isolated Urine Culture, Routine Urine Culture, RoutineSee Below For Report Antibiotic Interpretation MAHENDRA Status O:GNR Isolated O:ENTFAC Isolated Antibiotic Interpretation MAHENDRA Status O:KLEBPN Organism: 1.1 Organism: 1.3 Organism: Gram negative paul : Isolated Urine Culture, Routine Urine Culture, RoutineAMOXICILLIN/CLAVULANIC ACID S F Antibiotic Interpretation MAHENDRA Status O:GNR Isolated O:ENTFAC Isolated Antibiotic Interpretation MAHENDRA Status O:KLEBPN Organism: 1.1 Organism: 1.3 Organism: Gram negative paul : Isolated Urine Culture, Routine Urine Culture, RoutineAmpicillin R F Antibiotic Interpretation MAHENDRA Status O:GNR Isolated O:ENTFAC Isolated Antibiotic Interpretation MAHENDRA Status O:KLEBPN Organism: 1.1 Organism: 1.3 Organism: Gram negative paul : Isolated Urine Culture, Routine Urine Culture, RoutineCefepime S F Antibiotic Interpretation MAHENDRA Status O:GNR Isolated O:ENTFAC Isolated Antibiotic Interpretation MAHENDRA Status O:KLEBPN Organism: 1.1 Organism: 1.3 Organism: Gram negative paul : Isolated Urine Culture, Routine Urine Culture, RoutineCeftriaxone S F Antibiotic Interpretation MAHENDRA Status O:GNR Isolated O:ENTFAC Isolated Antibiotic Interpretation MAHENDRA Status O:KLEBPN Organism: 1.1 Organism: 1.3 Organism: Gram negative paul : Isolated Urine Culture, Routine Urine Culture, RoutineCefuroxime S F Antibiotic Interpretation MAHENDRA Status O:GNR Isolated O:ENTFAC Isolated Antibiotic Interpretation MAHENDRA Status O:KLEBPN Organism: 1.1 Organism: 1.3 Organism: Gram negative paul : Isolated Urine Culture, Routine Urine Culture, RoutineCiprofloxacin S F Antibiotic Interpretation MAHENDRA Status O:GNR Isolated O:ENTFAC Isolated Antibiotic Interpretation MAHENDRA Status O:KLEBPN Organism: 1.1 Organism: 1.3 Organism: Gram negative paul : Isolated Urine Culture, Routine Urine Culture, RoutineErtapenem S F Antibiotic Interpretation MAHENDRA Status O:GNR Isolated O:ENTFAC Isolated Antibiotic Interpretation MAHENDRA Status O:KLEBPN Organism: 1.1 Organism: 1.3 Organism: Gram negative paul : Isolated Urine Culture, Routine Urine Culture, RoutineGentamicin S F Antibiotic Interpretation MAHENDRA Status O:GNR Isolated O:ENTFAC Isolated Antibiotic Interpretation MAHENDRA Status O:KLEBPN Organism: 1.1 Organism: 1.3 Organism: Gram negative paul : Isolated Urine Culture, Routine Urine Culture, RoutineImipenem S F Antibiotic Interpretation MAHENDRA Status O:GNR Isolated O:ENTFAC Isolated Antibiotic Interpretation MAHENDRA Status O:KLEBPN Organism: 1.1 Organism: 1.3 Organism: Gram negative paul : Isolated Urine Culture, Routine Urine Culture, RoutineLevofloxacin S F Antibiotic Interpretation MAHENDRA Status O:GNR Isolated O:ENTFAC Isolated Antibiotic Interpretation MAHENDRA Status O:KLEBPN Organism: 1.1 Organism: 1.3 Organism: Gram negative paul : Isolated Urine Culture, Routine Urine Culture, RoutineMeropenem S F Antibiotic Interpretation MAHENDRA Status O:GNR Isolated O:ENTFAC Isolated Antibiotic Interpretation MAHENDRA Status O:KLEBPN Organism: 1.1 Organism: 1.3 Organism: Gram negative paul : Isolated Urine Culture, Routine Urine Culture, RoutineNitrofurantoin I F Antibiotic Interpretation MAHENDRA Status O:GNR Isolated O:ENTFAC Isolated Antibiotic Interpretation MAHENDRA Status O:KLEBPN Organism: 1.1 Organism: 1.3 Organism: Gram negative paul : Isolated Urine Culture, Routine Urine Culture, RoutineTetracycline S F Antibiotic Interpretation MAHENDRA Status O:GNR Isolated O:ENTFAC Isolated Antibiotic Interpretation MAHENDRA Status O:KLEBPN Organism: 1.1 Organism: 1.3 Organism: Gram negative paul : Isolated Urine Culture, Routine Urine Culture, RoutineTobramycin S F Antibiotic Interpretation MAHENDRA Status O:GNR Isolated O:ENTFAC Isolated Antibiotic Interpretation MAHENDRA Status O:KLEBPN Organism: 1.1 Organism: 1.3 Organism: Gram negative paul : Isolated Urine Culture, Routine Urine Culture, RoutineTrimethoprim/Sulfamethoxazole S F Antibiotic Interpretation MAHENDRA Status O:GNR Isolated O:ENTFAC Isolated Antibiotic Interpretation MAHENDRA Status O:KLEBPN Organism: 1.1 Organism: 1.3 Organism: Gram negative paul : Isolated Urine Culture, Routine Urine Culture, RoutinePiperacillin/Tazobactam S F Antibiotic Interpretation MAHENDRA Status O:GNR Isolated O:ENTFAC Isolated Antibiotic Interpretation MAHENDRA Status O:KLEBPN Organism: 1.1 Organism: 1.3 Organism: Gram negative paul : Isolated Urine Culture, Routine Performing Lab:see note SEE REPORT - [employer] Id information not found for OBX-specific 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 [place] [id number] Patient Name: SABI SANTAMARIA MRN: [id number] date: 1945 Sex: F Assigned Patient Location: ER Current Patient Location: ER Accession/Order Number: [id number] Exam Date: 07/08/2024 13:58 Report Date: 07/08/2024 14:27 At the request of: ROYA LUA Procedure: CT cervical spine wo con EXAMINATION: CT cervical spine wo con HISTORY: Fall COMPARISON: No relevant comparison available. TECHNIQUE: Axial, Coronal, and Sagittal images were created without IV contrast. Dose reduction techniques were achieved by using automated exposure control and/or adjustment of mA and/or kV according to patient size and/or use of iterative reconstruction technique. FINDINGS: VERTEBRAL BODIES: Degenerative changes versus remote fracture and healing at base of dens of C2. Normal height and alignment of the vertebral bodies. FACET JOINTS: Moderate-marked degenerative facet arthropathy C2-C3, C3-4, C4-5 on the left. Mild degenerative facet arthropathy throughout rest of cervical spine. No disruption or abnormal widening. DISCS: Mild-moderate narrowing C3-4 and C6-7. Uncovertebral joint spurring and small posterior disc osteophyte complexes cause mild central canal and foraminal narrowing, with suspected marked narrowing at C6-7 on the left. CENTRAL CANAL: No evidence of hemorrhage. PARASPINAL AREA: No visible mass. CT/CT cervical spine wo con IMPRESSION: 1. Degenerative changes of the cervical spine. 2. No appreciable acute abnormality. Electronically authenticated by: WILFRIDO BARNES Date: 07/08/2024 14:27 Dictated By: Wilfrido Barnes M.D. Signed By: 07/08/24 1429 DD/ 142 TD/TT: Correspondence Specialist:Troponin I High Sensitivity Reviewed date:07/08/2024 07:18:22 PM Interpretation: Performing Lab: Notes/Report: [facility] ,Troponin I High Qnysutuuwav970.64.0-51.3 pg/mL HAS BEEN CONFIRMED THE DECISION THRESHOLD FOR NH WITH OTHER DIAGNOSTIC AND CLINICAL INFORMATION. RESULTS CALLED TO ROYA CRAWLEY)/ER PERCENTILE OF cTnI DISTRIBUTION IN A REFERENCE POPULATION, USED IN ISOLATION BUT SHOULD BE INTERPRETED IN CONJUNCTION NOTE: HIGH-SENSITIVITY TROPONIN ASSAY IS NOT INTENDED TO BE DIAGNOSIS. CUT-OFF POINTS HAVE BEEN ESTABLISHED BASED ON THE FOURTH UNIVERSAL DEFINITION OF MYOCARDIAL INFARCTION. THE UPPER 99TH PERCENTILE = 51.4 PG/ML REFERENCE LIMIT (URL) OF TROPONIN, DEFINED THE 99TH Performing Lab:see noteML - [facility] LBTroponin I High Sensitivity Reviewed date:07/09/2024 03:58:35 PM Interpretation: Performing Lab: Notes/Report: [facility] ,Troponin I High Gjnhojurfgc024.74.0-51.3 pg/mL PERCENTILE OF cTnI DISTRIBUTION IN A REFERENCE POPULATION, RESULTS CALLED TO DALJIT VILLAGOMEZ RN @BY Akilah Maya DIAGNOSIS. UNIVERSAL DEFINITION OF MYOCARDIAL INFARCTION. THE UPPER HAS BEEN CONFIRMED THE DECISION THRESHOLD FOR NH WITH OTHER DIAGNOSTIC AND CLINICAL INFORMATION. 99TH PERCENTILE = 51.4 PG/ML NOTE: HIGH-SENSITIVITY TROPONIN ASSAY IS NOT INTENDED TO BE at 2028 CUT-OFF POINTS HAVE BEEN ESTABLISHED BASED ON THE FOURTH USED IN ISOLATION BUT SHOULD BE INTERPRETED IN CONJUNCTION REFERENCE LIMIT (URL) OF TROPONIN, DEFINED THE 99TH Performing Lab:see noteML - [facility] LBCBC AUTO DIFF Reviewed date:07/09/2024 03:58:35 PM Interpretation: Performing Lab: Notes/Report: [facility] ,White Blood Count7.54.0-11.0 10 3/uLRed Blood Count3.824.20-5.40 10 6/uL Vdolxpuhxs79.212.0-16.0 g/rTMhapcftmhd00.836.0-48.0 %Mean Corpuscular Sojqxk91.5 81.0-99.0 fLMean Corpuscular Mukbbuducq40.326.7-34.0 pgMean Corpuscular HGB Conc 33.129.9-35.2 g/dLRed Cell Distribution Width14.611.0-15.0 %Platelet Mmwmf773 150-450 10 3/uLMean Platelet Volume9.29.5-13.5 fLNeutrophils Percent Auto71.9 43.0-75.0 %Lymphocytes Percent Auto19.520.5-60.0 %Monocytes Percent Auto6.41.7- 12.0 %Eosinophils Percent Auto1.50.9-7.0 %Basophils Percent Auto0.40.2-2.0 % Immature Granulocytes Pct Auto0.30.0-0.5 %Neutrophils Absolute Auto5.41.4-6.5 10 3/uLLymphocytes Absolute Auto1.51.2-3.8 10 3/uLMonocytes Absolute Auto0.50.3-0.8 10 3/uLEosinophils Absolute Auto0.10.0-0.7 10 3/uLBasophils Absolute Auto0.00.0- 0.1 10 3/uLImmature Granulocytes Abs Auto0.020.00-0.03 10 3/uLPerforming Lab:see noteML - [facility] LBPROF 14(COMP METB) Reviewed date:07/09/2024 03:58:35 PM Interpretation: Performing Lab: Notes/Report: [facility] ,Mzwsop160783-006 mmol/LPotassium3.83.5-5.1 mmol/IUduhbeqz59298-136 mmol/LCarbon Yxnylzw50.621.0-32.0 mmol/LAnion Gap12.3Atfwplo3107-365 mg/dLBlood Urea Nitrogen 15.07.0-18.0 mg/dLCreatinine0.710.55-1.02 mg/dLEstimated GFR ( Isela>60 >=60 mL/min/1.73m 2Estimated GFR (Non- Beronica>60>=60 mL/min/1.73m 2BUN Creatinine Ratio21.7Saubzwh4.78.5-10.1 mg/dLBilirubin Total0.80.2-1.0 mg/dL Aspartate Amino Lambbivpmqr2244-44 U/LAlanine Pgghzhmlmnlkjwst6246-69 U/L Alkaline Owwktblpzaj8452-253 U/LTotal Protein6.96.4-8.2 g/dLAlbumin Level2.73.4- 5.0 g/dLGlobulin4.2Albumin Globulin Ratio0.6Performing Lab:see noteML - [facility] LBTroponin I High Sensitivity Reviewed date:07/09/2024 03:58:35 PM Interpretation: Performing Lab: Notes/Report: Comment to be collected with AM Labs. [facility] ,Troponin I High Jkiuivfjgwx96.54.0-51.3 pg/mL USED IN ISOLATION BUT SHOULD BE INTERPRETED IN CONJUNCTION UNIVERSAL DEFINITION OF MYOCARDIAL INFARCTION. THE UPPER 0641 PERCENTILE OF cTnI DISTRIBUTION IN A REFERENCE POPULATION, DIAGNOSIS. WITH OTHER DIAGNOSTIC AND CLINICAL INFORMATION. HAS BEEN CONFIRMED THE DECISION THRESHOLD FOR NH CUT-OFF POINTS HAVE BEEN ESTABLISHED BASED ON THE FOURTH RESULTS CALLED TO daljit villagomez rn @BY Gretchen Saini at NOTE: HIGH-SENSITIVITY TROPONIN ASSAY IS NOT INTENDED TO BE 99TH PERCENTILE = 51.4 PG/ML REFERENCE LIMIT (URL) OF TROPONIN, DEFINED THE 99TH Performing Lab:see noteML - [facility] LBXR foot LT min 3V Reviewed date:07/27/2024 11:54:04 AM Interpretation: Performing Lab: Notes/Report: Source Facility: [place] [address] XRay Report Signed Patient: SABI SANTAMARIA MR#: [id number] : 1945 Acct:[id number] Age/Sex: 79 / F ADM Date: 07/23/24 Loc: RAD Attending Dr: Merrill Doherty M.D. Ordering Physician: Merrill Doherty M.D. Date of Service: 07/23/24 Procedure(s): XR foot LT min 3V Accession Number(s): [id number] cc: Merrill Doherty M.D. [place] [address] Patient Name: SABI SANTAMARIA MRN: [id number]:[id number] date: 1945 Sex: F Assigned Patient Location: RAD Current Patient Location: Accession/Order Number: [id number] Exam Date: 07/23/2024 16:30 Report Date: 07/25/2024 12:02 At the request of: MERRILL DOHERTY Procedure: XR foot LT min 3V PROCEDURE: XR foot LT min 3V COMPARISON: None. HISTORY: LEFT FOOT PAIN FINDINGS: BONES:No acute fracture or dislocation. Severe degenerative changes with bony remodeling marginal osteophyte formation. Flattening of the plantar arch. SOFT TISSUES:Negative. No visible soft tissue swelling. EFFUSION:None visible. OTHER: Scattered calcifications XR/XR foot LT min 3V IMPRESSION: Severe degenerative changes Electronically authenticated by: SHANKAR ZHU Date: 07/25/2024 12:02 Dictated By: Shankar Zhu M.D. Signed By: 07/25/24 1204 DD/ 1202 TD/TT: Correspondence Specialist:OLAF MILES W or MICROSCOPIC Reviewed date:01/27/2025 08:35:31 PM Interpretation: Performing Lab: Notes/Report: [facility] ,Color UrineYELLOWYELLOWClarity UrineCLEARCLEARSpecific [place] Urine<=1.005 1.005-1.025pH Urine7.05.0-9.0Protein UrineNEGATIVENEG/TRACE mg/dLGlucose Urine UANEGATIVENEGATIVE mg/dLBilirubin UrineNEGATIVENEGATIVEKetones UrineNEGATIVE NEGATIVE mg/dLBlood UrineTRACE-INEGATIVENitrite UrinePOSITIVENEGATIVE Urobilinogen Urine0.20.2-1.0 EU/dLLeukocyte Esterase UrineLARGENEGATIVEWBC Urine 50-75NONE SEEN #/HPFRBC Urine2-50-2 #/HPFBacteria UrineMODERATENONE SEEN #/HPF Mucus UrineTRACENONE SEENSquamous Epithelial Cell UrineFEWNONE/RARE #/LPF Crystals Seen?None SeenNone Seen #/HPFCast Seen?NONE SEENNONE SEEN #/LPFUrine Culture IndicatedALREADY ORDEREDPerforming Lab:see noteML - [facility] LBUrine Culture - [facility] Reviewed date:01/29/2025 05:24:06 PM Interpretation: Performing Lab: Notes/Report: [facility] ,[facility] For Report Antibiotic Interpretation MAHENDRA Status O:PSEAER Testing performed at [facility] Isolated Organism: 1.1 Urine Culture - [facility] Urine Culture - FR Organism Comments Urine Culture - [id number] [place] [address] Antibiotic Interpretation MAHENDRA Status O:PSEAER Testing performed at [facility] Isolated Organism: 1.1 Urine Culture - [facility] [place]rine Culture - [facility] Organism Comments Urine Culture - [facility]See Below For Report Antibiotic Interpretation MAHENDRA Status O:PSEAER Testing performed at [facility] Isolated Organism: 1.1 Urine Culture - [facility] Urine Culture - FR Organism Comments Urine Culture - [facility]MCSee Below For Report Antibiotic Interpretation MAHENDRA Status O:PSEAER Testing performed at [facility] Isolated Organism: 1.1 Urine Culture - [facility] [place]rine Culture - [facility] Organism Comments Urine Culture - FR75,000 CFU/ML Antibiotic Interpretation MAHENDRA Status O:PSEAER Testing performed at [facility] Isolated Organism: 1.1 Urine Culture - [facility] [place]rine Culture - [facility] Organism Comments Urine Culture - [facility]See Below For Report Antibiotic Interpretation MAHENDRA Status O:PSEAER Testing performed at [facility] Isolated Organism: 1.1 Urine Culture - [facility] Urine Culture - [facility] Organism Comments Urine Culture - FRMCAmikacin S F Antibiotic Interpretation MAHENDRA Status O:PSEAER Testing performed at [facility] Isolated Organism: 1.1 Urine Culture - [facility] [place]rine Culture - [facility] Organism Comments Urine Culture - FRMCAztreonam I F Antibiotic Interpretation MAHENDRA Status O:PSEAER Testing performed at [facility] Isolated Organism: 1.1 Urine Culture - [facility] Urine Culture - FR Organism Comments Urine Culture - FRMCCeftazidime I F Antibiotic Interpretation MAHENDRA Status O:PSEAER Testing performed at [facility] Isolated Organism: 1.1 Urine Culture - [facility] Urine Culture - [facility] Organism Comments Urine Culture - FRMCCeftazidime/Avibactam S F Antibiotic Interpretation MAHENDRA Status O:PSEAER Testing performed at [facility] Isolated Organism: 1.1 Urine Culture - [facility] [place]rine Culture - [facility] Organism Comments Urine Culture - FRMCCeftolozane/Tazobactam S F Antibiotic Interpretation MAHENDRA Status O:PSEAER Testing performed at [facility] Isolated Organism: 1.1 Urine Culture - [facility] [place]rine Culture - [facility] Organism Comments Urine Culture - FRMCCiprofloxacin S F Antibiotic Interpretation MAHENDRA Status O:PSEAER Testing performed at [facility] Isolated Organism: 1.1 Urine Culture - FR Urine Culture - [facility] Organism Comments Urine Culture - FRMCGentamicin S F Antibiotic Interpretation MAHENDRA Status O:PSEAER Testing performed at [facility] Isolated Organism: 1.1 Urine Culture - FR Urine Culture - [facility] Organism Comments Urine Culture - FRMCLevofloxacin S F Antibiotic Interpretation MAHENDRA Status O:PSEAER Testing performed at [facility] Isolated Organism: 1.1 Urine Culture - FR Urine Culture - FR Organism Comments Urine Culture - FRMCMeropenem S F Antibiotic Interpretation MAHENDRA Status O:PSEAER Testing performed at [facility] Isolated Organism: 1.1 Urine Culture - FR Urine Culture - FR Organism Comments Urine Culture - FRMCTobramycin S F Antibiotic Interpretation MAHENDRA Status O:PSEAER Testing performed at [facility] Isolated Organism: 1.1 Urine Culture - FR Urine Culture - [facility] Organism Comments Urine Culture - FRMCCefepime S F Antibiotic Interpretation MAHENDRA Status O:PSEAER Testing performed at [facility] Isolated Organism: 1.1 Urine Culture - FR Urine Culture - [facility] Organism Comments Urine Culture - FRMCPiperacillin/Tazobactam I F Antibiotic Interpretation MAHENDRA Status O:PSEAER Testing performed at [facility] Isolated Organism: 1.1 Urine Culture - [facility] Urine Culture - [facility] Organism Comments Performing Lab:see note ML - [facility] LB SEE REPORT - 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,[place] [address] THYROID PROFILE Reviewed date:12/07/2024 12:10:15 PM Interpretation: Performing Lab: Notes/Report:FREE T41.250.61-1.60 ng/dLTSH1.760.49-4.67 uIU/mLPERFORMED AT [address] [place] [address] 99[address]JVI A1C (GLYCO-HGB) Reviewed date:12/07/2024 12:10:15 PM Interpretation: Performing Lab: Notes/Report:HEMOGLOBIN A1C5.44.4-5.6 % Use with caution in patients with abnormal hemoglobin variants as ADA Guidelines affected. the half-life of red blood cells and in vivo glycation rates are Normal : less than 5.7 % Diabetes : > 6.4 % Prediabetes : 5.7 % to 6.4 % Result HgbA1c EST. AVERAGE JLHYSCC868 PERFORMED AT [address] [address] INSULIN Reviewed date:12/07/2024 12:10:15 PM Interpretation: Performing Lab: Notes/Report:INSULIN7.221.00-23.00 uIU/mL PERFORMED AT [address] [address] Ref. range is for FASTING NON-DIABETIC POPULATION. IRON Reviewed date:12/07/2024 12:10:15 PM Interpretation: Performing Lab: Notes/Report:YAUW9727-590 ug/dL PERFORMED AT [address] [address] FREE T3 Reviewed date:12/07/2024 12:10:15 PM Interpretation: Performing Lab: Notes/Report:FREE T33.212.50-3.90 pg/mLPERFORMED AT [address] [address]FXZFMDNRAMCQD METABOLIC PANEL Reviewed date:12/07/2024 12:10:15 PM Interpretation: Performing Lab: Notes/Report:VZXLND743952-966 mmol/LPOTASSIUM4.03.5-5.0 mmol/ZFOWOETUH06131-170 mmol/LCARBON SBOVRBN5013-75 mmol/LANION RHI93-22 mmol/LBLOOD UREA ROTJJDPY415-47 mg/dLCREATININE0.620.40-1.00 mg/dLMETHOD TRACEABLE TO IDMS MCLLXXDSGUEYHRS26053- 99 mg/dLCALCIUM8.88.5-10.5 mg/dLTOTAL PROTEIN7.16.0-8.0 g/dLALBUMIN3.53.2-5.3 g/dLALKALINE FRURAOGSAEC7798-291 U/LAST35<=41 U/LALT26<=31 U/LBILIRUBIN,TOTAL0.6 0.3-1.2 mg/dLEGFR (CKD-EPI) NON-RACE DEPENDENT>90>=60 ml/min/1.73sq.m not use a race coefficient. PERFORMED AT [facility] [address],[place] [address] Reported eGFR is based on the CKD-EPI 2020 equation that does CBC AND AUTO DIFF * Reviewed date:12/07/2024 12:10:15 PM Interpretation: Performing Lab: Notes/Report:WBC6.94-11 x10E9/LRBC COUNT4.083.8-5.2 X10E12/SMBKAQQMGUG00.511.7- 15.5 g/jDILTLLEOOTK81.835-47 %LXR5028-606 fLMCH28.227-34 uwELSS13.132-36 g/dLRDW 16.711.5-15 %PLATELET PFXLH860769-207 X10E9/LMPV7.57-12 fLNEUTROPHILS RELATIVE PERCENT BY AUTOMATED COUNT64.6LYMPHOCYTES RELATIVE PERCENT BY AUTOMATED COUNT 26.2MONOCYTES RELATIVE PERCENT BY AUTOMATED COUNT5.2EOSINOPHILS RELATIVE PERCENT BY AUTOMATED COUNT3.1BASOPHILS RELATIVE PERCENT BY AUTOMATED COUNT0.9NEUTROPHILS ABSOLUTE COUNT BY AUTOMATED COUNT4.41.5-6.6 10*3/uLLYMPHOCYTES ABSOLUTE COUNT (10*3/UL) BY AUTOMATED COUNT1.81.0-3.5 10*3/uLMONOCYTES ABSOLUTE COUNT (10*3/UL) BY AUTOMATED COUNT0.40.0-0.9 10*3/uLEOSINOPHILS ABSOLUTE COUNT (10*3/UL) BY AUTOMATED COUNT0.20.0-0.4 10*3/uLBASOPHILS ABSOLUTE COUNT (10*3/UL) BY AUTOMATED COUNT0.10.0-0.2 10*3/uLCELLAVISION DIFFERENTIAL TYPEAUTOMATED [place] [address] VITAMIN D 25 HYD TOT Reviewed date:12/07/2024 12:10:15 PM Interpretation: Performing Lab: Notes/Report:VITAMIN D 25 HYD TOT31.630.0-100.0 ng/mL Deficiency <20 ng/mL Sufficiency 30-100 ng/mL NOTE: A pediatric reference range has not been established by the journal box inspector of this kit. The [employer] recommends a Vitamin D level of = or >20ng/mL in infants and children. Vitamin D status 25 [place] Vitamin D Toxicity >100 ng/[place] [address] Insufficiency 20-29 ng/mL FECAL OCCULT BLOOD Reviewed date:12/07/2024 12:10:15 PM Interpretation: Performing Lab: Notes/Report:FECAL OCCULT BLOODNegativeNegative [place] [address] XR chest 1V Reviewed date:12/03/2024 09:12:27 PM Interpretation: Performing Lab: Notes/Report: Source Facility: [place] [address] [place] [address] XRay Report Signed Patient: SABI SANTAMARIA MR#: [id number] : 1945 Acct:[id number] Age/Sex: 79 / F ADM Date: 12/03/24 Loc: ER Attending Dr: Ordering Physician: Wolfagng Culp Date of Service: 12/03/24 Procedure(s): XR chest 1V Accession Number(s): [id number] cc: Wolfgang Culp; Merrill Doherty M.D. [place] [address] Patient Name: SABI SANTAMARIA MRN: [facility]:[id number] date: 1945 Sex: F Assigned Patient Location: ED.MAIN Current Patient Location: ED.MAIN Accession/Order Number: [id number] Exam Date: 12/03/2024 20:59 Report Date: 12/03/2024 21:02 At the request of: WOLFGANG CULP MD Procedure: XR chest 1V XR chest 1V 12/03/2024 8:46 PM SIGNS AND SYMPTOMS: tachycardia PROTOCOL: Frontal radiograph of the chest COMPARISON: 07/08/2024 FINDINGS: The trachea is midline. The heart and mediastinal structures are within normal limits. The lung parenchyma is clear. The bony thorax is intact. There is a dextro convex curvature of the thoracic spine. XR/XR chest 1V IMPRESSION: No acute cardiopulmonary pathology. Impression dictated by: Victor M Smith M.D. 12/03/2024 9:02 PM Dictation Location: [place] [address] Electronically authenticated by: [id number] Y Date: 12/03/2024 21:02 Dictated By: Victor M Smith M.D. Signed By: 12/03/242103 DD/ 01 TD/TT: Correspondence Specialist:CT head/brain wo con Reviewed date:12/04/2024 07:10:15 PM Interpretation: Performing Lab: Notes/Report: Source Facility: [place] [address] [place] [address] CT Scan Report Signed Patient: SABI SANTAMARIA MR#: [id number] : 1945 Acct:[id number] Age/Sex: 79 / F ADM Date: 12/03/24 Loc: ER Attending Dr: Ordering Physician: Wolfgang Culp Date of Service: 12/03/24 Procedure(s): CT head/brain wo con Accession Number(s): [id number] cc: Merrill Doherty M.D. [place] [address] Patient Name: SABI SANTAMARIA MRN: [id number] date: 1945 Sex: F Assigned Patient Location: ED.MAIN Current Patient Location: ED.MAIN Accession/Order Number: [id number] Exam Date: 12/03/2024 21:02 Report Date: 12/03/2024 21:11 At the request of: WOLFGANG CULP MD Procedure: CT head/brain wo con CT head/brain wo con 12/03/2024 8:46 PM SIGNS AND SYMPTOMS: Headache, tachycardia TECHNIQUE:Multi-detector CT axial slices of the brain were obtained without IV contrast. CT was performed with one or more of the following dose reduction techniques: Automated exposure control, adjustment of the mA and/or kV according to patient size, or use of iterative reconstruction technique. COMPARISON: 07/08/2024 FINDINGS: There is no shift of the midline structures, acute intracranial bleeding, mass effects, or evidence of acute ischemia. 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 There is gliosis and encephalomalacia in the left occipital lobe consistent with a remote infarct. The ventricular system is normal in size. The brainstem and the cerebellum are unremarkable. The visualized intraorbital contents, the visualized paranasal sinuses, and the infratemporal soft tissues show no acute abnormality. The osseous structures in the skull base and the calvarium show no abnormality. CT/CT head/brain wo con IMPRESSION: No acute intracranial pathology. There is gliosis and encephalomalacia in the left occipital lobe consistent with a remote infarct. 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 Impression dictated by: Victor M Smith M.D. 12/03/2024 9:11 PM Dictation Location: [place] [address] Electronically authenticated by: [id number] Y Date: 12/03/2024 21:11 Dictated By: Victor M Smith M.D. Signed By: 12/03/242113 DD/ 10 TD/TT: Correspondence Specialist:ECG 12 lead Reviewed date:12/04/2024 07:10:15 PM Interpretation: Performing Lab: Notes/Report: Source Facility: [place] [address] [place] [address] Electrocardiograph Report Signed Patient: SABI SANTAMARIA MR#: [id number] : 1945 Acct:[id number] Age/Sex: 79 / F ADM Date: 12/03/24 Loc: ER Attending Dr: Ordering Physician: Wolfgang Culp Date of Service: 12/03/24 Procedure(s): ECG 12 lead Accession Number(s): [id number] cc: [facility] Test Date: 2024-12-03 Pat Name: SABI SANTAMARIA Department: Room: - 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 Measurements Intervals [place] Rate: 98 P: 32 WV: 140 QRS: 55 QRSD: 86 T: 16 QT: 336 QTc: 392 Interpretive Statements 1100 Sinus rhythm 9110 normal ECG Compared to ECG 07/08/2024 13:38:53 Sinus tachycardia no longer present Myocardial infarct finding no longer present Electronically Signed On 12-04-2024 17:47:39 EDT by TEE LANDAVERDE M.D. Dictated By: TEE LANDAVERDE Signed By: 12/04/24174712/04/241747 DD/ 38 TD/TT: Correspondence Specialist:CT FACIAL BONES WO CON Reviewed date:12/04/2024 07:10:15 PM Interpretation: Performing Lab: Notes/Report: Source Facility: [place] [address] [place] [address] CT Scan Report Signed Patient: SABI SANTAMARIA MR#: [id number] : 1945 Acct:[id number] Age/Sex: 79 / F ADM Date: 12/03/24 Loc: ER Attending Dr: Ordering Physician: Wolfgang Culp Date of Service: 12/03/24 Procedure(s): CT facial bones wo con Accession Number(s): [id number] cc: Merrill Doherty M.D. The [address] [address] Patient Name: SABI SANTAMARIA MRN: [facility]:[id number] date: 1945 Sex: F Assigned Patient Location: ED.MAIN Current Patient Location: ED.MAIN Accession/Order Number: [id number] Exam Date: 12/03/2024 21:11 Report Date: 12/03/2024 21:20 At the request of: WOLFGANG CULP MD Procedure: CT facial bones wo con CT facial bones wo con 12/03/2024 8:46 PM SIGNS AND SYMPTOMS: headache , recent dental abscess TECHNIQUE: Multidetector CT axial slices of the facial bones were obtained. Helical, sagittal, coronal, and 3-D reconstructions were performed and viewed on a separate workstation and reviewed to further define anatomy and possible pathology. CT was performed with one or more of the following dose reduction techniques: Automated exposure control, adjustment of the mA and/or kV according to patient size, or use of iterative reconstruction technique. COMPARISON: None. FINDINGS: Fracture: None. Paranasal sinuses and mastoids: Mucosal thickening is in maxillary sinus. Soft tissue swelling: None. Globes: Intact. Upper aerodigestive tract: Within normal limits. Joints: Intact. Temporal mandibular joints: Degenerative changes are noted in the temporomandibular joints. Infratemporal fossa: Within normal limits. Upper cervical spine: Degenerative changes are noted in the lateral axial joint and craniocervical junction. Degenerative changes are noted throughout the visualized upper cervical spine. CT/CT facial bones wo con IMPRESSION: No evidence of fracture or dislocation. No significant soft tissue swelling to suggest cellulitis or abscess. Degenerative changes are noted in the temporomandibular joints, the atlantoaxial joint, craniocervical junction, and the upper cervical spine. Mucosal thickening is noted in the right maxillary sinus. Impression dictated by: Victor M Smith M.D. 12/03/2024 9:20 PM Dictation Location: [place] [address] Electronically authenticated by: [id number] Y Date: 12/03/2024 21:20 Dictated By: Victor M Smith M.D. Signed By: 12/03/242122 DD/ 19 TD/TT: Correspondence Specialist:Urine Culture - FR Reviewed date:12/07/2024 12:12:59 PM Interpretation: Performing Lab: Notes/Report: [facility] ,[facility] For Report Urine Culture - [facility] No Growth 2 Days Urine Culture - [facility] Urine [facility] - [facility] No Growth 2 Days Urine Culture - FRMCTesting performed at [facility] Urine Culture - FR No Growth 2 Days Urine Culture - [id number] [place] [address] Urine Culture - FR No Growth 2 Days Performing Lab:see noteML - [facility] LBTroponin I High Sensitivity Reviewed date:12/04/2024 07:10:15 PM Interpretation: Performing Lab: Notes/Report: [facility] ,Troponin I High Sensitivity6.54.0-51.3 pg/mL REFERENCE LIMIT (URL) OF TROPONIN, DEFINED THE 99TH DIAGNOSIS. UNIVERSAL DEFINITION OF MYOCARDIAL INFARCTION. THE UPPER 99TH PERCENTILE = 51.4 PG/ML HAS BEEN CONFIRMED THE DECISION THRESHOLD FOR NH WITH OTHER DIAGNOSTIC AND CLINICAL INFORMATION. NOTE: HIGH-SENSITIVITY TROPONIN ASSAY IS NOT INTENDED TO BE USED IN ISOLATION BUT SHOULD BE INTERPRETED IN CONJUNCTION PERCENTILE OF cTnI DISTRIBUTION IN A REFERENCE POPULATION, CUT-OFF POINTS HAVE BEEN ESTABLISHED BASED ON THE FOURTH Performing Lab:see noteML - [facility] LBUA RANDOM W or MICROSCOPIC Reviewed date:12/03/2024 08:25:38 PM Interpretation: Performing Lab: Notes/Report: [facility] ,Color UrineLT. YELLOWYELLOWClarity UrineCLEARCLEARSpecific [place] Urine<=1.005 1.005-1.025pH Urine7.05.0-9.0Protein UrineNEGATIVENEG/TRACE mg/dLGlucose Urine UANEGATIVENEGATIVE mg/dLBilirubin UrineNEGATIVENEGATIVEKetones UrineNEGATIVE NEGATIVE mg/dLBlood UrineTRACE-INEGATIVENitrite UrineNEGATIVENEGATIVE Urobilinogen Urine0.20.2-1.0 EU/dLLeukocyte Esterase UrineTRACENEGATIVEWBC Urine 5-10NONE SEEN #/HPFRBC Urine0-20-2 #/HPFBacteria UrineTRACENONE SEEN #/HPFMucus UrineNONE SEENNONE SEENSquamous Epithelial Cell UrineFEWNONE/RARE #/LPFCrystals Seen?None SeenNone Seen #/HPFCast Seen?NONE SEENNONE SEEN #/LPFUrine Culture IndicatedYES-FRMCPerforming Lab:see noteML - [facility] LBPROF CHEM 8 (BAS METB) Reviewed date:12/04/2024 07:10:15 PM Interpretation: Performing Lab: Notes/Report: [facility] ,Upuopg050911-233 mmol/LPotassium3.63.5-5.1 mmol/JGjlwhgqf2416-481 mmol/LCarbon Knqaryd86.121.0-32.0 mmol/LAnion Gap12.6Igjstgy44162-593 mg/dLBlood Urea Fhmypdtn91.07.0-18.0 mg/dLCreatinine0.670.55-1.02 mg/dLEstimated GFR ( Isela>60>=60 mL/min/1.73m 2Estimated GFR (Non- Beronica>60>=60 mL/min/1.73m 2BUN Creatinine Ratio23.5Bvincix5.28.5-10.1 mg/dLPerforming Lab:see noteML - [facility] LBCBC AUTO DIFF Reviewed date:12/04/2024 07:10:15 PM Interpretation: Performing Lab: Notes/Report: [facility] ,White Blood Count11.44.0-11.0 10 3/uLRed Blood Count4.284.20-5.40 10 6/uL Vgyqyuacew37.112.0-16.0 g/pRLdszjgwlmt51.936.0-48.0 %Mean Corpuscular Hdzmtu18.2 81.0-99.0 fLMean Corpuscular Qdgulpnamc91.326.7-34.0 pgMean Corpuscular HGB Conc 32.829.9-35.2 g/dLRed Cell Distribution Width15.811.0-15.0 %Platelet Zbwud451 150-450 10 3/uLMean Platelet Volume8.99.5-13.5 fLNeutrophils Percent Auto77.1 43.0-75.0 %Lymphocytes Percent Auto13.920.5-60.0 %Monocytes Percent Auto8.01.7- 12.0 %Eosinophils Percent Auto0.50.9-7.0 %Basophils Percent Auto0.20.2-2.0 % Immature Granulocytes Pct Auto0.30.0-0.5 %Neutrophils Absolute Auto8.81.4-6.5 10 3/uLLymphocytes Absolute Auto1.61.2-3.8 10 3/uLMonocytes Absolute Auto0.90.3-0.8 10 3/uLEosinophils Absolute Auto0.10.0-0.7 10 3/uLBasophils Absolute Auto0.00.0- 0.1 10 3/uLImmature Granulocytes Abs Auto0.030.00-0.03 10 3/uLPerforming Lab:see noteML - [facility] LBXR chest 1V Reviewed date:07/08/2024 03:28:51 PM Interpretation: Performing Lab: Notes/Report: Source Facility: [facility]-[address] [place] [address] [place] [address] XRay Report Signed Patient: SABI SANTAMARIA MR#: [id number] : 1945 Acct:[id number] Age/Sex: 79 / F ADM Date: 07/08/24 Loc: ER Attending Dr: Ordering Physician: Roya Lua Date of Service: 07/08/24 Procedure(s): XR chest 1V Accession Number(s): [id number] cc: Merrill Doherty M.D.; Roya Lua [place] [id number] Patient Name: SABI SANTAMARIA MRN: [id number] date: 1945 Sex: F Assigned Patient Location: ER Current Patient Location: ER Accession/Order Number: [id number] Exam Date: 07/08/2024 13:58 Report Date: 07/08/2024 14:28 At the request of: ROYA LUA Procedure: XR chest 1V EXAMINATION: XR chest 1V HISTORY: Altered mental status COMPARISON: No relevant comparison available. FINDINGS: LUNGS: Underexpanded lungs with elevation of the diaphragm bilaterally. VASCULATURE: No increased pulmonary vasculature. PLEURA: No pneumothorax, effusion, or pleural thickening. CARDIAC: No cardiomegaly or cardiac silhouette abnormality. MEDIASTINUM: No visible mass or adenopathy. BONES: No fracture or visible bone lesion. OTHER: Negative. XR/XR chest 1V IMPRESSION: 1. Low lung volume examination with trace amount of bibasilar atelectasis or possibly infiltrates. 2. No appreciable acute bone abnormality. Electronically authenticated by: WILFRIDO BARNES Date: 07/08/2024 14:28 Dictated By: Wilfrido Barnes M.D. Signed By: 07/08/24 1431 DD/ 1428 TD/TT: Correspondence Specialist:CT head/brain wo con Reviewed date:07/08/2024 03:28:51 PM Interpretation: Performing Lab: Notes/Report: Source Facility: [place] [address] CT Scan Report Signed Patient: SABI SANTAMARIA MR#: [id number] : 1945 Acct:[id number] Age/Sex: 79 / F ADM Date: 07/08/24 Loc: ER Attending Dr: Ordering Physician: Roya Lua Date of Service: 07/08/24 Procedure(s): CT head/brain wo con Accession Number(s): [id number] cc: Merrill Doherty M.D. [place] [address] Patient Name: SABI SANTAMARIA MRN: [id number] date: 1945 Sex: F Assigned Patient Location: ER Current Patient Location: ER Accession/Order Number: [id number] Exam Date: 07/08/2024 13:58 Report Date: 07/08/2024 14:22 At the request of: ROYA LUA Procedure: CT head/brain wo con EXAMINATION: CT head/brain wo con HISTORY: Fall, altered mental status COMPARISON: CT head 01/04/2023 TECHNIQUE: Axial CT images were obtained without IV contrast. Dose reduction techniques were achieved by using automated exposure control and/or adjustment of mA and/or kV according to patient size and/or use of iterative reconstruction technique. FINDINGS: BRAIN: Stable, old lacunar infarction within left basal ganglia. No edema, hemorrhage, mass, acute infarction, or inappropriate atrophy. CSF SPACES: No hydrocephalus, subarachnoid hemorrhage, or mass. Appropriate for age. SKULL: No fracture, mass, or other significant visible lesion. SINUSES: No significant mucosal thickening or fluid on the limited views. ORBITS: No appreciable abnormality on the limited views. OTHER: Negative CT/CT head/brain wo con IMPRESSION: 1. No intracranial hemorrhage or appreciable acute abnormality. 2. Stable old lacunar infarction within left basal ganglia. 3. Grossly stable mild age-related chronic changes. Electronically authenticated by: WILFRIDO BARNES Date: 07/08/2024 14:22 Dictated By: Wilfrdio Barnes M.D. Signed By: 07/08/241424 DD/ 21 TD/TT: Correspondence Specialist:ECG 12 lead Reviewed date:07/10/2024 06:25:35 PM Interpretation: Performing Lab: Notes/Report: Source Facility: [place] [address] Electrocardiograph Report Signed Patient: SABI SANTAMARIA MR#: [id number] : 1945 Acct:[id number] Age/Sex: 79 / F ADM Date: 07/08/24 Loc: [place] 216-[address]: Merrill Doherty M.D. 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 Signed By: 07/09/24 1738 DD/ 1338 TD/TT: Correspondence Specialist:OLAF Bolden, reflex to culture Reviewed date:07/08/2024 07:18:22 PM Interpretation: Performing Lab: Notes/Report: [facility] ,Color UrineLT. YELLOWYELLOWClarity UrineSL CLOUDYCLEARSpecific [place] Urine 1.0101.005-1.025pH Urine7.05.0-9.0Protein UrineTRACENEG/TRACE mg/dLGlucose Urine UANEGATIVENEGATIVE mg/dLBilirubin UrineNEGATIVENEGATIVEKetones UrineNEGATIVE NEGATIVE mg/dLBlood UrineMODERATENEGATIVENitrite UrineNEGATIVENEGATIVE Urobilinogen Urine0.20.2-1.0 EU/dLLeukocyte Esterase UrineSMALLNEGATIVEWBC Urine 5-10NONE SEEN #/HPFRBC Zvplf1-642-0 #/HPFBacteria UrineSMALLNONE SEEN #/HPFMucus UrineNONE SEENNONE SEENSquamous Epithelial Cell UrineFEWNONE/RARE #/LPFCrystals Seen?None SeenNone Seen #/HPFCast Seen?SEENNONE SEEN #/LPFHyaline Casts Urine RAREUrine Culture IndicatedYESPerforming Lab:see noteML - [facility] LBLACTATE or LACTIC ACID Reviewed date:07/08/2024 03:28:50 PM Interpretation: Performing Lab: Notes/Report: [facility] ,Lactate/Lactic Acid1.30.4-2.0 mmol/LPerforming Lab:see noteML - [facility] LBCPK Reviewed date:07/08/2024 03:28:50 PM Interpretation: Performing Lab: Notes/Report: [facility] ,Creatine Hknszd45225-890 U/LPerforming Lab:see noteML - [facility] LBCBC AUTO DIFF Reviewed date:07/08/2024 02:13:42 PM Interpretation: Performing Lab: Notes/Report: [facility] ,White Blood Count12.94.0-11.0 10 3/uLRed Blood Count4.514.20-5.40 10 6/uL Smryavsojc47.112.0-16.0 g/mBXoydnndgzv25.036.0-48.0 %Mean Corpuscular Yyblod48.7 81.0-99.0 fLMean Corpuscular Fmwfdzbouc71.026.7-34.0 pgMean Corpuscular HGB Conc 32.829.9-35.2 g/dLRed Cell Distribution Width14.511.0-15.0 %Platelet Ztkrg108 150-450 10 3/uLMean Platelet Volume8.89.5-13.5 fLNeutrophils Percent Auto86.3 43.0-75.0 %Lymphocytes Percent Auto7.520.5-60.0 %Monocytes Percent Auto5.71.7- 12.0 %Eosinophils Percent Auto0.00.9-7.0 %Basophils Percent Auto0.20.2-2.0 % Immature Granulocytes Pct Auto0.30.0-0.5 %Neutrophils Absolute Auto11.11.4-6.5 10 3/uLLymphocytes Absolute Auto1.01.2-3.8 10 3/uLMonocytes Absolute Auto0.70.3- 0.8 10 3/uLEosinophils Absolute Auto0.00.0-0.7 10 3/uLBasophils Absolute Auto0.0 0.0-0.1 10 3/uLImmature Granulocytes Abs Auto0.040.00-0.03 10 3/uLPerforming Lab:see noteML - [facility] LBBNP Reviewed date:07/08/2024 07:18:22 PM Interpretation: Performing Lab: Notes/Report: [facility] ,NT Pro B Type Natriuretic Oosa179.0<=1800.0 pg/mLPerforming Lab:see noteML - [facility] LBUA DIP NONAUTO WO MICRO (56377) - IN OFFICE Reviewed date:01/12/2025 03:23:46 PM Interpretation: Performing Lab: Notes/Report: COLORYellowCLARITYClearGLUCOSENegBILIRUBINNegKETONE+SPECIFIC GRAVITY1.005BLOOD+ LN7IFAUPJSHfqBMVLPYBWANEXRooOETVBSN+LEUKOCYTE ESTERASE+++UA (Urinalysis, Dipstix only - w/o micro) Reviewed date:09/25/2024 01:56:22 PM Interpretation: Performing Lab: Notes/Report: COLORyellowYellow - Muna -CLARITYclearClear - ClearGLUCOSE-0 - 133 MG/DLALBUMIN -NEG - NEG MG/DLBILIRUBIN-NEG - NEG MG/DLSPECIFIC GRAVITY1.0101.001 - 1.035 KETONES-NEG - NEG MG/DLBLOOD, UR-PH, UR75 - 9UROBILNOGEN-0.2 - 1 MG/DLNITRITE+ NEG - NEGESTERASE (YARIEL)+NEG - NEG MG/DL Reason For Referral No Information Medications Medication SIG (Take, Route, Frequency, Duration) Notes Start Date End Date Status Pyridium 200 MG 1 tablet after meals Orally Thre e times a day; Duration: 2 days 5ActiveDiclofenac Sodium 75 MG1 tablet as needed Orally Twice a day; Duration: 30 days4ActiveFerrous Sulfate 325 (65 Fe) MG1 tablet Orally twice daily; Duration: 30 days5ActivelevoFLOXacin 750 MG1 tablet Orally Once a day; Duration: 10 day(s)5ActiveAtorvastatin Calcium 80 MGTOME DENISSE TABLETA TODOS LOS SOLORIO AL ACOSTARSE; Duration: 90ActiveCarvedilol 6.25 MG TAKE 1 TABLET BY MOUTH TWICE A DAY WITH FOOD FOR 30 DAYS; Duration: 90Active Aspirin Low Dose 81 MG1 tablet Orally Once a dayActiveMelatonin 5 MGTOME DOS TABLETAS POR V A ORAL TODOS LOS D AL ACOSTARSE Oral; Duration: 90 daysActive Multivitamin -1 tablet Orally Once a day4Active Immunizations Vaccine Route Administration Date Status Comme nts Flu, Fluad (92061) 65 yrs+, single-dose syringe (2072-9587) IM Intramuscular 03/12/2023 Administered Social History Tobacco Use: Social History Observation Description Date Details (start date - stop date) Never Smoker NA - NA Tobacco Use/Smoking Question Answer Notes Patient is a nonsmoker Alcohol Screen (Audit-C) Question Answer Notes Did you have a drink containing alcohol in the p ast year? No Xxwlcc6KgrnhhwdltqipwDdumeupdVZBFR-A (Standard) Question Answer Notes Did you have a drink containing alcohol in the p ast year? No Xmfifz1RufxfvrmbkxndzQqaintpc Problems Problem Type SNOMED Code ICD Code Onset Dates Problem Status W/U Status Risk Notes Problem Low back pain (662329739) Low back pain ( M54.5) ActiveconfirmedProblemGastro-esophageal reflux disease without esophagitis (844154156)Gastro-esophageal reflux disease without esophagitis (K21.9)Active confirmedProblemJaw pain (687949168)Jaw pain (R68.84)ActiveconfirmedProblem Hyperlipidemia (28315199)Hyperlipidemia (E78.5)ActiveconfirmedProblemMorbid obesity (662160089)Morbid obesity (E66.01)ActiveconfirmedProblemHypertension (13394439)Hypertension (I10)ActiveconfirmedProblemOsteoarthritis (884735583) Osteoarthritis (M19.90)ActiveconfirmedProblemGastroesophageal reflux disease (612981081)GERD (gastroesophageal reflux disease) (K21.9)ActiveconfirmedProblem Hiatal hernia (05302963)Hiatal hernia (K44.9)ActiveconfirmedProblemChronic fatigue syndrome (63271052)Chronic fatigue (R53.82)ActiveconfirmedProblemPain in limb (78838457)Foot pain, left (M79.672)ActiveconfirmedProblemAcute exacerbation of chronic obstructive airways disease (455020406)COPD exacerbation (J44.1) ActiveconfirmedProblemOsteoporosis (79974728)Osteoporosis (M81.0)Activeconfirmed ProblemParesthesia (60500721)Paresthesia (R20.2)ActiveconfirmedProblemCervical disc disease (988043871)Cervical disc disease (M50.90)ActiveconfirmedProblem Multiple nodules of lung (303897123)Lung nodule, multiple (R91.8)Activeconfirmed ProblemPelvic mass (08179712)Pelvic mass (R19.00)ActiveconfirmedProblem Constipated (06058201)Constipated (K59.00)ActiveconfirmedProblemAbnormal gait (22463155)Gait instability (R26.81)ActiveconfirmedProblemAcute non-ST segment elevation myocardial infarction (560546554)NSTEMI (non-ST elevated myocardial infarction) (I21.4)ActiveconfirmedProblemIschemic stroke (235913488)Ischemic stroke (I63.50)ActiveconfirmedProblemEsophageal spasm (20683704)Esophageal spasm (K22.4)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)ActiveconfirmedProblemAltered mental status (389382094)Altered mental status (R41.82)ActiveconfirmedProblemAcute urinary tract infection (756429469) Acute UTI (N39.0)ActiveconfirmedProblemHemiplegia of dominant side (436704122) Hemiplegia affecting dominant side (G81.90)ActiveconfirmedProblemEssential hypertension (71516236)BP (high blood pressure) (I10)ActiveconfirmedProblem Troponin I above reference range (finding) (286780424)Elevated troponin I level (R74.8)Activeconfirmed Vital Signs Blood pressure diastolic 62 mm Hg 12/17/2024 Kujulw54 in12/17/2024lood pressure nobhyiwx823 mm Hg12/17/20244550Hmxfoa322 lbs 12/17/2024BMI25.19 kg/m212/17/2024 Encounters Encounter Location Date Provider Diagnosis [place] [address] [place] [address] 12/01/2024 Real [facility] Jaw pain R68.84 ; Hyperlipidemia E78.5 ; Hypertension I10 and Ischemic stroke I63.50 [place] [address] [place] [address] 07/23/2024 Real [place] Foot pain, left M79. [address] [place] [address] 12/17/2024 Real [facility] Hypertension I10 ; Altered mental status R41.82 and Acute UTI N39.0 [facility] [address] [facility] [place] [address] 01/12/2025 Real Hoy Dysuria R30.0 [facility] [address] [facility] [place] [address] 01/26/2025 Real [place] Dysuria R30.0 [facility] [address] [facility] [place] [address] 09/25/2024 Real [place] UTI symptoms R39.9 [facility] [address] [facility] [place] [address] 07/14/2024 Real H[place] Acute UTI N39.0 and Elevated troponin I level R74.8 [facility] [address] [facility] [place] [address] 07/13/2024 Real Hoy [facility] [facility] [place] [address] 07/27/2024[facility] [facility] [place] [address]/[facility] [facility] [place] [address] [facility] [place] [address]/03/2025Doug HoyFoot pain, left M79.672[facility] [facility] [place] [address]/ [facility] Z01.89 ; Hypertension I10 ; Hyperlipidemia E78.5 and Chronic fatigue R53.82[facility] [facility] [place] [address]/[facility] [facility] [place] [address]/[facility] [facility] [place] [address]/[facility] [place] [address]/ [facility] [place] [address] [place] [address]/04/2025Doug HoyDysuria R30.0[place] [address] [place] [address]/05/2025Do Hoy Assessments Encounter Date Diagnosis (ICD Code) Assessment Notes Treatment Notes Treatment Clinical Notes Section Notes 07/14/2024 Acute UTI (ICD-10 - N39.0) 07/14/2024Elevated troponin I level (ICD-10 - R74.8)07/23/2024Foot pain, left (ICD-10 - M79.672)09/25/2024UTI symptoms (ICD-10 - R39.9)12/01/2024Jaw pain (ICD-10 - R68.84)12/01/2024Hyperlipidemia (ICD-10 - E78.5)12/01/2024Hypertension (ICD-10 - I10)12/01/2024Ischemic stroke (ICD-10 - I63.50)12/17/2024Hypertension (ICD-10 - I10)stabel here - discussed diet12/17/2024ltered mental status (ICD- 10 - R41.82)inpreoved with tereateing uti01/12/2025Dysuria (ICD-10 - R30.0) 01/26/2025Dysuria (ICD-10 - R30.0)09/25/2024Foot pain, left (ICD-10 - M79.672) 12/01/2024Wellness examination (ICD-10 - Z01.89)12/01/2024Hypertension (ICD-10 - I10)01/26/2025Dysuria (ICD-10 - R30.0)12/01/2024Hyperlipidemia (ICD-10 - E78.5) 12/17/2024ute UTI (ICD-10 - N39.0)symptosm gone cx neg12/01/2024hronic fatigue (ICD-10 - R53.82) Plan Of Treatment Pending Test Test Name Order Date UA (URINALYSIS, COMPLETE) 01/26/2025 HEMOGLOBIN A1C (GLYCO) 12/01/2024 IRON, TOTAL 12/01/2024 LIPID PANEL (CHOL/TRIG/HDL/LDL) 12/02/19 25 UA (URINALYSIS, MICRO ONLY) 01/26/2025 VITAMIN D, 25 LEVEL (TOTAL) 12/01/2024 Insulin Level 12/01/2024 STOOL OCCULT BLOOD 12/01/2024 CULTURE URINE 01/26/2025 XR FOOT LT MIN 3 VIEWS 07/23/2024 THYROID PANEL (T4/TSH/FREE T3) CMP (COMP MET BERTRAND) w/eGFR CKD-EPI 2024 CBC WITH DIFF 12/01/2024 Insurance Providers Payer Name Payer Address Payer Phone Subscriber Number Group Number Insured Name Patient Relationship to Insured Coverage Start Date Coverage End Date [place]IC[place] [address] [place] [address] [id number] Deyvi Santamaria - patient is the [id number] 2007[facility] [address] [place], [place] [id number] Deyvi Rivera - patient is the insured Medical (General) History Medical History History ICD Code Ischemic stroke I63.50 Paresthesia R20.2 Hyperlipidemia E78.5 Hypertension I10 Chronic fatigue R53.82 Gait instability R26.81 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 H91.8X2 Small bowel obstruction K56.609 Pelvic mass R19.00 Hemiplegia affecting dominant side G81.9 0 Ulcer L98.499 Hiatal hernia K44.9 Esophageal spasm K22.4 Lung nodule, multiple R91.8 Osteoporosis M81.0 Gastro-esophageal reflux disease without esophagitis K21.9 Low back pain M54.5 Cervical disc disease M50.90 Multiple Left side Rib Fractures ZcvxsowwirsU43.9Cancer of xltmieX81JmxyualmzcdsG06Kajdrg mqychaqN76.9 XgsmgjgovgtaowK49.90Surgical History Surgery Date(Month/Year) Hysterectomy Femoral Neck Prosthetic Replacement, Dr. Cadena04/21/21Knee Replacement, Rt12/2019 Hospitalization History Reason Date(Month/Year) Fall/COVID 12/2022
--- OUTSIDE RECORDS SUMMARY | 2025-06-14 20:04 | XMS_ITS | Clinical Summary ---
Author Organization [facility] Address [address] [place] [address] Care Team Providers Care Communications Maintainer Name Role Phone Unavailable Primary Care Provider Unavailabl e Allergies No known active allergies Medications MedicationSigDispense QuantityRefillsLast FilledStart DateEnd DateStatus ASPIRIN 81 PO Take 81 mg by mouth DailyActive Coreg 6.25 MG tablet Take 6.25 mg by mouth every 12 (twelve) hours09/17/2023ctive atorvastatin (Lipitor) 80 MG tablet Take 80 mg by mouth DailyActive melatonin 5 MG tablet Take 5 mg by mouth at bedtimeActive Multiple Vitamins-Minerals (Centrum Silver Women 50+) tablet Take 1 tablet by mouth DailyActive Active Problems ProblemNoted DateDiagnosed DateIschemic irqzfu544Primary hypertension 12/27/20239435Snexmbmtoweypm32/11/2024Rheumatoid hcijaqhpa24/11/2024hronic fatigue 12/27/2023Gait aibopfsfxtv74/11/2024Right hand ymtcixurxqo68/11/2024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12/27/20232883Wozgosnaoxr35/11/2024 Social History Tobacco UseTypesPacks/DayYears UsedDateSmoking Tobacco: NeverSmokeless Tobacco: Never Tobacco Cessation:Counseling Given: Not Answered Alcohol UseStandard Drinks/WeekCommentsNot Currently0 (1 standard drink = 0.6 oz pure alcohol)CommentsUnknownSex and Gender InformationValueDate Recorded Sex Assigned at BirthNot on fileLegal RqjWsjyip46/15/2023 6:45 PM EDTGender IdentityNot on fileSexual OrientationNot on file Last Filed Vital Signs Vital SignReadingTime TakenCommentsBlood Adtpcocq590/7411 4:12 PM EST Fnpoa694604/29/2024 4:12 PM ESTTemperature--Respiratory Rate--Oxygen Ttrmupwhyg34% 04/29/2024 4:12 PM ESTInhaled Oxygen Concentration--Sgnvwg89.2 kg (126 lb) 04/29/2024 4:12 PM QVKKfhuyt457.9 cm (5' 1 )02/27/2024 4:45 PM EDTBody Mass Index23.8102/27/2024 4:45 PM EDT Plan of Treatment Not on file Insurance
--- OUTSIDE RECORDS SUMMARY | 2025-06-14 20:04 | XMS_ITS ---
Author Organization [facility] Care Team Providers Care Patient Companion Name Role Phone Jordin Wakefield Unavailable Unavailable Ankush Villarreal Unavailable Unavailable Jaelyn Holden Unavailable Unavailabl e Allergies and adverse reactions No Known Allergies Care Team Name Role Address Phone Organization Dates Jordin Wakefield PCP [address] [place], [address], [place] (Office): : : [facility] 05/24/2021 - 07/23/2021 Ankush Villarreal [address] [place] [address], [address], [place] (Office): : [facility] 05/24/2021 - 07/23/2021 Jaelyn Holden [address] [place], [address], [place] (Cell): [facility] 05/24/2021 - 07/23/2021 Immunizations Immunization Status Vaccine Details Vaccine Code CodeSystem Date Notes TB 2 Step Mantoux Skin Test completed tuberculin skin test; unspecified formulation lotNumber: [id number] expiry: 02/16/2022 Mfg: [employer] Given 0.1 ml Right Forearm intradermally Step 2 of Multi-step with next step required 98 CVX created date: 06/04/2021 consent date: 06/03/2021 administere d date: 06/04/2021 TB 2 Step Mantoux Skin Testcompletedtuberculin skin test; unspecified formulation lotNumber: [id number] expiry: 02/16/2022 Mfg: [employer] Given 0.1 ml Left Forearm intradermally Step 1 of Multi-step with next step [id number] date: 05/26/2021 consent date: 05/26/2021 administered date: 05/26/20217832ELCV-LAJ-9 (COVID-19)kiijfjcezVVKX-GDD-9 (COVID-19) vaccine, mRNA, spike protein, LNP, preservative free, 100 mcg/0.5mL dose or 50 mcg/0.25mL dose Step 2 of Multi-step with next step [id number] date: 05/25/2021 administered date: 09/24/20207343YIKG-ABK-9 (COVID-19)jiueueitnKEPV-ROJ-6 (COVID-19) vaccine, mRNA, spike protein, LNP, preservative free, 100 mcg/0.5mL dose or 50 mcg/0.25mL dose Step 1 of Multi-step with next step [id number] date: 05/25/2021 consent date: 05/25/2021 administered date: 08/27/2020 Mental Status Section Date Assessment Total Score Description 07/23/2021 BIMS 13 cognitively int act CAM 0 No delirium ind icated PHQ-9 07 mild depression 05/31/2021 BIMS 13 cognitively int act CAM 0 No delirium ind icated PHQ-9 06 mild depression Insurance Providers Coverage Status Coverage Type Relationship to Subscriber Member Identifier Subscriber Identifier Group Identifier Payer Identifier and Other information Code: 1 Code System OID:[id number] [id number]. 3.221.5 Code System Name: Source of Payment Typology ([facility]) Display: Medicare Translation : Code: [place] Code System: OID:[id number] [id number]. [id number] Code System Name: Insurance Type Code ([id number]) Display Name: Medicare Part A Problems Problem # Description Date of onset Resolved Date Code CodeSystem Concern Status 1 BODY MASS INDEX [BMI] 25.0-25.9, ADULT 07/20/[address] active 2 ACUTE BRONCHITIS, UNSPECIFIED 07/04/19 22 07/19/[address] completed 3 INSOMNIA, UNSPECIFIED 06/27/[address] active 4 URINARY TRACT INFECTION, SITE NOT SPECIFIED 06/02/20 21 06/20/[address] completed 5 APHASIA FOLLOWING UNSPECIFIED CEREBROVASCULAR DISEASE 05/26/[address] active 6 ATAXIC GAIT 05/26/20 21 05/26/[address] completed 7 DIFFICULTY IN WALKING, NOT ELSEWHERE CLASSIFIED 05/26/[address] active 8 DYSPHAGIA FOLLOWING UNSPECIFIED CEREBROVASCULAR DISEASE 05/26/[address] active 9 BODY MASS INDEX [BMI] 28.0-28.9, ADULT 05/25/20 21 07/20/[address] completed 10 CIRCADIAN RHYTHM SLEEP DISORDER, UNSPECIFIED TYPE 05/25/[address] active 11 MUSCLE WEAKNESS (GENERALIZED) 05/25/[address] active 12 OTHER LACK OF COORDINATION 05/25/[address] active 13 OTHER PROBLEMS RELATED TO LIFE MANAGEMENT DIFFICULTY 05/25/[address] active 14 AGE-RELATED OSTEOPOROSIS WITHOUT CURRENT PATHOLOGICAL FRACTURE 05/24/[address] active 15 ANXIETY DISORDER, UNSPECIFIED 05/24/[address] active 16 CEREBRAL INFARCTION, UNSPECIFIED 05/24/[address] active 17 CONSTIPATION, UNSPECIFIED 05/24/[address] active 18 CYST OF KIDNEY, ACQUIRED 05/24/[address] active 19 DIAPHRAGMATIC HERNIA WITHOUT OBSTRUCTION OR GANGRENE 05/24/[address] active 20 DYSPHAGIA, OROPHARYNGEAL PHASE 05/24/2006/22/[address] completed 21 ESSENTIAL (PRIMARY) HYPERTENSION 05/24/[address] active 22 GASTRIC ULCER, UNSPECIFIED ACUTE OR CHRONIC, WITHOUT HEMORRHAGE OR PERFORATION 05/24/[address] active 23 GASTRO-ESOPHAGEAL REFLUX DISEASE WITHOUT ESOPHAGITIS 05/24/[address] active 24 HISTORY OF FALLING 05/24/[address] active 25 HYPERLIPIDEMIA, UNSPECIFIED 05/24/[address] active 26 INTRA-ABDOMINAL AND PELVIC SWELLING, MASS AND LUMP, UNSPECIFIED SITE 05/24/[address] active 27 MAJOR DEPRESSIVE DISORDER, RECURRENT, UNSPECIFIED 05/24/[address] active 28 NONDISPLACED FRACTURE OF BASE OF NECK OF RIGHT FEMUR, SUBSEQUENT ENCOUNTER FOR CLOSED FRACTURE WITH ROUTINE HEALING 05/24/[address] active 29 OTHER NONSPECIFIC ABNORMAL FINDING OF LUNG FIELD 05/24/[address] active 30 OTHER SEASONAL ALLERGIC RHINITIS 05/24/[address] active 31 PERSONAL HISTORY OF MALIGNANT NEOPLASM OF OVARY 05/24/[address] active 32 PRESENCE OF UNSPECIFIED ARTIFICIAL KNEE JOINT 05/24/[address] active 33 RETENTION OF URINE, UNSPECIFIED 05/24/[address] active 34 UNSPECIFIED OSTEOARTHRITIS, UNSPECIFIED SITE 05/24/[address] active 35 WEAKNESS 05/24/[address] active Reason for Referral No Reasons for Referral Entered Social History Social History Observation Description Start Date End Date Code Code System Current Smoking Status Tobacco smoking consumption unknown 553946542 SNOMED CT Sex Assigned At Female 1945 [address]-4 [facility] Gender Identity Sexual Orientation Vital Signs Code Code System Vitals Name Values and Units Timing Information 46327-2 LOINC Pain Level Value=0.0 07/23/2021 8462-4 LOINC Blood Pressure-Diastolic Value=72 Un its=mmHg 07/23/2021 8480-6 LOINC Blood Pressure-Systolic Kmshd=094 Un its=mmHg 07/23/2021 8310-5 LOINC Body Temperature Value=97.6 Units= F 07/23/2021 62610-8 LOINC O2 % BldC Oximetry Value=98.0 Units= % 07/23/2021 9279-1 LOINC Respiratory Rate Value=18.0 Units=/m in 07/22/2021 26027-1 LOINC Weight Cppzj=332.8 Units=Lbs 07/2021 8867-4 LOINC Heart rate Value=90.0 Units=/min 06/2021 8302-2 LOINC Height Value=61.0 Units=Inches 05/24/2021
[2025-06-14 20:16] LABS: Cast Seen? NONE SEEN #/LPF (NONE SEEN); Crystals Seen? None Seen #/HPF (None Seen); Urine Culture Indicated YES-FRMC
[2025-06-14] MEDS: CIPROFLOXACIN HCL 500 MG TABLET PO (20:41)
== END 2025-06-14 20:50 | disposition home or self-care (01) ==
PROVIDERS: Emergency Provider Emergency Medicine; PCP Family Medicine
DX: N39.0 Urinary tract infection, site not specified (principal)
CPT/HCPCS: 36415; 80048; 81001; 85025; 87086; 87088; 87186; 96360; 99284